=== PATIENT | female | born 1960 | race Caucasian/White ===

== ENCOUNTER 2021-08-17 13:48 | Outpatient (CLI) | payer MEDICARE, OTHER, SELFPAY ==
[2021-08-17 17:14] LABS: Chloride* 106 mmol/L (96-114); Potassium* 3.8 mmol/L (3.6-5.1); Sodium* 138 mmol/L (135-149)
[2021-08-17 17:16] LABS: Cholesterol* 130 mg/dL (90-199)
[2021-08-17 17:17] LABS: Blood Urea Nitrogen* 17 mg/dL (7-30); Carbon Dioxide* 25 mmol/L (20-32); Creatinine* 0.8 mg/dL (0.5-1.5); Estimated Glomerular Filt Rate 85.35; Glucose* 123 mg/dL (60-115); HDL Cholesterol* 50 mg/dL (>=50); LDL Cholesterol Calculated 48 mg/dL (<100); Triglycerides* 161 mg/dL (40-149)
== END 2021-08-17 13:49 | disposition home or self-care (01) ==
PROVIDERS: PCP Family Medicine; Visit Provider Family Medicine
DX: Z01.818 Encounter for other preprocedural examination (principal); E78.5 Hyperlipidemia, unspecified; D64.9 Anemia, unspecified; Z13.1 Encounter for screening for diabetes mellitus
CPT/HCPCS: 80048; 80061

== ENCOUNTER 2022-01-15 11:23 | Outpatient (CLI) | payer MEDICARE, OTHER, SELFPAY ==
[2022-01-15 13:55] LABS: Basophils Percent Auto 0.3 % (0.0-3.0); Eosinophils Percent Auto 3.4 % (0.0-7.0); Hematocrit 33.2 % (33.0-51.0); Hemoglobin* 10.4 gm/dL (12.0-16.0); Immature Granulocytes Pct Auto 0.3 %; Lymphocytes Percent Auto 26.6 % (20-44); Mean Corpuscular HGB Conc 31 gm/dL (32-36); Mean Corpuscular Hemoglobin 25 pg (26-34); Mean Corpuscular Volume 81 fL (80-100); Monocytes Percent Auto 11.2 % (0.0-11.0); Neutrophils Percent Auto 58.2 % (42.0-72.0); Platelet Count* 165 K/uL (140-440); RDW Coefficient of Variation % 16.6 % (11.5-15.5); Red Blood Count 4.11 m/uL (4.00-5.20); White Blood Count* 3.49 K/uL (4.50-11.00)
[2022-01-15 14:02] LABS: Slide Review Reflex No
[2022-01-15 14:18] LABS: Chloride* 105 mmol/L (96-114)
[2022-01-15 14:19] LABS: Potassium* 3.5 mmol/L (3.6-5.1); Sodium* 140 mmol/L (135-149)
[2022-01-15 14:21] LABS: Creatinine* 0.9 mg/dL (0.5-1.5); Estimated Glomerular Filt Rate 74 ml/min
[2022-01-15 14:22] LABS: Blood Urea Nitrogen* 19 mg/dL (7-30); Calcium* 8.4 mg/dL (8.4-10.6); Carbon Dioxide* 25 mmol/L (20-32); Glucose* 83 mg/dL (60-115)
[2022-01-15 14:40] LABS: SARS PCR* Negative SARS-CoV-2 (Negative)
== END 2022-01-15 11:24 | disposition home or self-care (01) ==
PROVIDERS: PCP Family Medicine; Visit Provider Nurse Practitioner Family
DX: Z01.818 Encounter for other preprocedural examination (principal); R00.2 Palpitations; Z20.822 Contact with and (suspected) exposure to COVID-19
CPT/HCPCS: 80048; 84443; 85025; 87635

== ENCOUNTER 2022-05-17 09:18 | Outpatient (REF) | payer MEDICARE, OTHER, SELFPAY ==
[2022-05-17 10:23] LABS: Hemoglobin A1C* 6.37 % (0-5.6)
== END 2022-05-17 09:19 | disposition home or self-care (01) ==
LOC: NPINS 09:18
PROVIDERS: PCP Family Medicine; Visit Provider Orthopaedic Surgery
DX: E11.69 Type 2 diabetes mellitus with other specified complication (principal); M79.671 Pain in right foot
CPT/HCPCS: 83036

== ENCOUNTER 2022-07-31 13:08 | Outpatient (CLI) | payer MEDICARE, OTHER, SELFPAY ==
--- NOTE | 2022-07-31 13:00 | CRLHL7_ITS ---
For Patients: As a result of the Century Cures Act, medical imaging exams and procedure reports are released immediately into your electronic medical record. You may view this report before your referring provider. If you have questions, please contact your health care provider. BILATERAL SCREENING MAMMOGRAM WITH COMPUTER-AIDED DETECTION AND TOMOSYNTHESIS 07/31/2022 INDICATION: 61-year-old asymptomatic female. Screening evaluation. No personal or family history of breast cancer. TECHNIQUE: CC and MLO views were obtained. This digital study was evaluated with the assistance of computer-aided detection. Digital breast tomosynthesis utilized in interpretation. COMPARISON: January 12, 2021. November 26, 2019. BREAST DENSITY: The breast tissue is heterogeneously dense, which may obscure small masses. FINDINGS: Within the central upper RIGHT breast approximately 12 o???clock position is a small nodular density measuring less than 1 cm. Spot compression views in both the CC and true ML projection recommended as a first step. Ultrasound may be required depending on the results of these additional images. The LEFT breast is negative and unchanged. No suspicious microcalcifications or regions of architecture distortion. IMPRESSION: Nodule central upper RIGHT breast 12 o???clock position approximately 5-6 cm from the nipple for which additional imaging and possibly ultrasound recommended. [facility] will contact the patient. BI-RADS Category 0: Incomplete - Need Additional Imaging evaluation and/or Prior Mammograms for Comparison Dictated by: Kory Gan MD @08/01/2022 8:48:45 AM GISELA/jenifre DW/Dictated by: Kory Gan MD @ 08/01/2022 8:48:00 AM (Electronically Signed)
== END 2022-07-31 13:09 | disposition home or self-care (01) ==
PROVIDERS: PCP Family Medicine; Visit Provider Family Medicine
DX: Z12.31 Encounter for screening mammogram for malignant neoplasm of breast (principal); R92.2 Inconclusive mammogram; N63.10 Unspecified lump in the right breast, unspecified quadrant
CPT/HCPCS: 77063; 77067

== ENCOUNTER 2022-08-07 08:16 | Outpatient (CLI) | payer MEDICARE, OTHER, SELFPAY ==
--- NOTE | 2022-08-07 08:45 | CRLHL7_ITS ---
For Patients: As a result of the Cures Act, medical imaging exams and procedure reports are released immediately into your electronic medical record. You may view this report before your referring provider. If you have questions, please contact your health care provider. DIAGNOSTIC RIGHT BREAST MAMMOGRAM WITH COMPUTER-AIDED DETECTION AND TOMOSYNTHESIS 08/07/2022 CLINICAL HISTORY: RIGHT breast mass/asymmetry. COMPARISON: 01/12/2021, 07/31/2022. TECHNIQUE: Digital RIGHT mammogram in 3 projections. Real-time ultrasound imaging of RIGHT breast with imaging documentation. BREAST COMPOSITION: Heterogeneously dense. FINDINGS: 3D spot compression true lateral and CC RIGHT breast mammogram images along with 3D open true lateral RIGHT breast mammogram images. Decreased conspicuity of previously noted asymmetric density in the retroareolar plane, slightly superiorly. No suspicious masses on today`s exam. No architectural distortion. No suspicious calcifications. Targeted ultrasound in the retroareolar plane extending to 12 o`clock 6 cm from the nipple performed. Normal dense tissue is present. No fibrocystic change or mass. IMPRESSION: Normal additional mammogram images RIGHT breast and normal targeted RIGHT breast ultrasound. No evidence of malignancy. RECOMMENDATIONS: Annual bilateral screening mammography. BI-RADS Category 2: Benign Results and recommendations discussed with the patient. Dictated by Ronald Porter MD @ 08/07/2022 9:10:35 AM GISELA/jenifer DW/Dictated by: Ronald Porter MD @ 08/07/2022 9:10:00 AM (Electronically Signed)
== END 2022-08-07 08:17 | disposition home or self-care (01) ==
LOC: MAMMO 08:16
PROVIDERS: PCP Family Medicine; Visit Provider Family Medicine
DX: N63.10 Unspecified lump in the right breast, unspecified quadrant (principal); R92.8 Other abnormal and inconclusive findings on diagnostic imaging of breast
CPT/HCPCS: 76642; 77065; G0279

== ENCOUNTER 2022-09-23 16:06 | Emergency (ER) | payer MEDICARE, OTHER, SELFPAY ==
[2022-09-23 16:30] VITALS: BP 96/61; PULSE 79; RESP 16; TEMP 36.2; O2SAT 97; BMI 23.9
== END 2022-09-23 17:27 | disposition left against medical advice (07) ==
PROVIDERS: Emergency Provider Emergency Medicine Emergency Medical Services; PCP Family Medicine
DX: Z53.21 Procedure and treatment not carried out due to patient leaving prior to being seen by health care provider (principal)

== ENCOUNTER 2022-10-05 16:26 | Outpatient (CLI) | payer MEDICARE, OTHER, SELFPAY ==
--- OUTSIDE RECORDS SUMMARY | 2022-10-07 02:08 | XMS_ITS | Continuity of Care Document ---
Author Name Unknown Organization [facility] Address [address] [place] [id number] Care Team Providers Care Enterprise Applications Manager Name Role Phone [facility] Unavailable Unav ailable Procedures Procedure Date MAJOR JOINT OR BURSA INJ WITH ULTRASOUND MAJOR JOINT OR BURSA INJ WITH ULTRASOUND Advance Directives Directive Yes / No Effective Date File Name No Information Encounters Encounter Description Practice Location Reason(s) For Visit Diagnoses Date Provider Providers Copied on Encounter [facility], [address] [place] [address], [id number], [facility] No Information [facility]. [address] [place], [place], [id number], . tel:[phone] Referring Provider: Divina Deras, [address] [place], [address]. tel:[phone] Family History Family Member Type Diagnosis Age At Onset No Information Payers Payer name Insurance type Covered democrat ID Authoriza tion(s) [employer] To 16 [id number] Social History Type Description Quantity Date Captured Comments Sex Female Smoking Status No Information Chief Complaint And Reason For Visit No Information Reason For Referral Reason For Referral No Information History Of Present Illness Encounter Date Complaint History Of Prese nt Illness No Information Functional Status Date Functional Assessmen t No Information Instructions Date Instruction Additional Infor mation No Information Assessments Type Assessment Date No Information Patient Care Teams Name Effective Dates (start - stop) Status Members No Information
--- OUTSIDE RECORDS SUMMARY | 2022-10-07 02:08 | XMS_ITS | Continuity of Care Document ---
Author Name Unknown Organization [facility] Address [address] [place] [address] Care Team Providers Care Television Antenna Installer Name Role Phone Beth Benoit CRNA Unavailable Unavail able Procedures Procedure Date ANESTH, NERVE BLOCK/INJ Advance Directives Directive Yes / No Effective Date File Name No Information Encounters Encounter Description Practice Location Reason(s) For Visit Diagnoses Date Provider Providers Copied on Encounter [facility], [address] [place], [place], [id number], [facility] No Information [facility]. [address] [place], [place], [id number], . tel:[phone] Referring Provider: Divina Deras, [address] [place] [place], [address] . tel:[phone] Family History Family Member Type Diagnosis Age At Onset No Information Payers Payer name Insurance type Covered green party ID Authoriza tiflaco(s) [employer] To 16 [id number] Social History Type Description Quantity Date Captured [...]
--- OUTSIDE RECORDS SUMMARY | 2022-10-07 02:10 | XMS_ITS | Continuity of Care Document ---
Author Name Unknown Organization [facility] tommie Address [address] [facility] [place] [id number] Phone Care Team Providers Care Rn Field Name Role Phone Kiara Álvarez CNP Unavailable Unavail able Allergies, Adverse Reactions, Alerts Substance Reaction Status Criticality methocarbamol Nausea/vomiting Active No Informat ion CYCLOBENZAPRINE HCL Active No Infor mation diphenhydramine Active No Informati on PROCHLORPERAZINE MALEATE Active No Information PROCHLORPERAZINE EDISYLATE Active N o Information Medications Medication Instructions Dosage Effective Dates (start - stop) Status Comments OxyContin 20 mg tablet,crush resistant,extend ed release take 1 tablet by oral route every 8 hours for chronic pain - Active may fill today, to start 10/07/22 oxycodone 10 mg tablet take 1 tablet by ORAL route every 4 - 6 hours as needed for chronic pain, max 3/day, alternate with 15mg tablets - Active may fill today, to start 10/07/22 oxycodone 15 mg tablet take 1 tablet by oral route every 4-6 hours as needed for chronic pain, max 2/day - Active may fill today, to start 10/07 Linzess 72 mcg capsule take 1 capsule by oral route every day on an empty stomach at least 30 minutes before 1st meal of the day - Active Narcan 4 mg/actuation nasal spray spray 0.1 milliliter by intranasal route in 1 nostril may repeat dose every 2-3 minutes as needed alternating nostrils with each dose 4 MG - Active Lidocaine External Patch 5 % apply 1 - 3 patches to low back every day for up to 12 hours per 24 hours. - Active Cymbalta 30 mg capsule,delayed release take 3 capsule by oral route every day 90 MG - Active simvastatin 20 mg tablet take 1 tablet by oral route every day in the evening 20 MG - Active Ativan 1 mg tablet take 1 tablet by oral route every day as needed, up to 3/day - Active Topamax 100 mg tablet take 2 tablet by oral route every day 200 MG - Active Wellbutrin XL 300 mg 24 hr tablet, extended release take 1 tablet by oral route every day 300 MG - Active Lexapro 10 mg tablet take 1 tablet by oral route every day 10 MG - Active Lamictal 200 mg tablet take 1 tablet by oral route 2 times every day 200 MG - Active trazodone 100 mg tablet take 1 tablet by oral route every day at bedtime - Active PRAZOSIN HCL (unknown strength) take 1 capsule by oral route 3 times every day Not Available - Active metformin 1,000 mg tablet take 1 tablet by oral route 2 times everyday - Active Prilosec 10 mg capsule,delayed release take 1 capsule by oral route every morning before a meal 10 MG - Active dicyclomine 10 mg capsule take 1 capsule by oral route 2 times every day 10 MG - Active Mirapex 1 mg tablet take 1 tablet by oral route every day 1 MG - Active oxycodone 10 mg tablet take 1 tablet by ORAL route every 4 - 6 hours as needed for chronic pain, max 3/day, alternate with 15mg tablets - No Longer Active may fill today, to start 09/07/22 OxyContin 20 mg tablet,crush resistant,extend ed release take 1 tablet by oral route every 8 hours for chronic pain - No Longer Active may fill today, to start 09/07/22 oxycodone 15 mg tablet take 1 tablet by oral route every 4-6 hours as needed for chronic pain, max 2/day - No Longer Active may fill today, to start 09/07 Procedures Procedure Date OFFICE VISIT, EST TELEMEDICINE OFFICE VISIT, EST TELEMEDICINE Drug Urine Toxology With Chromatography Drug test def 8-14 classes OFFICE/OUTPATIENT VISIT, EST BILATERAL MAJOR JOINT/BURSA DRAIN/INJ WI TH ULTRASO OFFICE VISIT, EST TELEMEDICINE OFFICE VISIT, EST TELEMEDICINE Foll-up eval q3mo opiod tx Foll-up eval q3mo opiod tx OFFICE/OUTPATIENT VISIT, EST ROUTINE BLOOD DRAW Foll-up eval q3mo opiod tx OFFICE VISIT, EST TELEMEDICINE Foll-up eval q3mo opiod tx OFFICE VISIT, EST TELEMEDICINE Foll-up eval q3mo opiod tx OFFICE/OUTPATIENT VISIT, EST Drug Urine Toxology With Chromatography Drug test def 8-14 classes Foll-up eval q3mo opiod tx OFFICE VISIT, EST TELEMEDICINE Foll-up eval q3mo opiod tx OFFICE VISIT, EST TELEMEDICINE Foll-up eval q3mo opiod tx OFFICE/OUTPATIENT VISIT, EST Drug Urine Toxology With Chromatography Foll-up eval q3mo opiod tx OFFICE VISIT, EST TELEMEDICINE Foll-up eval q3mo opiod tx OFFICE VISIT, EST TELEMEDICINE OFFICE VISIT, EST TELEMEDICINE Drug Urine Toxology With Chromatography Drug test def 8-14 classes Foll-up eval q3mo opiod tx OFFICE/OUTPATIENT VISIT, EST Foll-up eval q3mo opiod tx OFFICE VISIT, EST TELEMEDICINE OFFICE VISIT, EST TELEMEDICINE Foll-up eval q3mo opiod tx Botulinum toxin a per unit Destroy Nerve Face For Chronic Migraine Botulinum toxin a per unit Foll-up eval q3mo opiod tx OFFICE VISIT, EST TELEMEDICINE Drug Urine Toxology With Chromatography Drug test def 1-7 classes PT-FOCUSED HLTH RISK ASSMT Foll-up eval q3mo opiod tx OFFICE/OUTPATIENT VISIT, EST Foll-up eval q3mo opiod tx OFFICE VISIT, EST TELEMEDICINE Foll-up eval q3mo opiod tx OFFICE VISIT, EST TELEMEDICINE Foll-up eval q3mo opiod tx OFFICE VISIT, EST TELEMEDICINE Foll-up eval q3mo opiod tx OFFICE VISIT, EST TELEMEDICINE Foll-up eval q3mo opiod tx OFFICE/OUTPATIENT VISIT, EST ROUTINE BLOOD DRAW Drug Urine Toxology With Chromatography Foll-up eval q3mo opiod tx OFFICE VISIT, EST TELEMEDICINE Foll-up eval q3mo opiod tx OFFICE VISIT, EST TELEMEDICINE Drug Urine Toxology With Chromatography Foll-up eval q3mo opiod tx OFFICE/OUTPATIENT VISIT, EST Foll-up eval q3mo opiod tx OFFICE VISIT, EST TELEMEDICINE Foll-up eval q3mo opiod tx OFFICE VISIT, EST TELEMEDICINE Foll-up eval q3mo opiod tx OFFICE VISIT, EST TELEMEDICINE Foll-up eval q3mo opiod tx OFFICE VISIT, EST TELEMEDICINE 21 Foll-up eval q3mo opiod tx OFFICE VISIT, EST TELEMEDICINE 21 Foll-up eval q3mo opiod tx OFFICE VISIT, EST TELEMEDICINE 20 Foll-up eval q3mo opiod tx OFFICE VISIT, EST TELEMEDICINE Foll-up eval q3mo opiod tx OFFICE VISIT, EST TELEMEDICINE Foll-up eval q3mo opiod tx OFFICE VISIT, EST TELEMEDICINE Foll-up eval q3mo opiod tx OFFICE/OUTPATIENT VISIT, EST Foll-up eval q3mo opiod tx OFFICE VISIT, EST TELEMEDICINE 20 Foll-up eval q3mo opiod tx OFFICE VISIT, EST TELEMEDICINE Foll-up eval q3mo opiod tx OFFICE VISIT, EST TELEMEDICINE Foll-up eval q3mo opiod tx OFFICE VISIT, EST TELEMEDICINE Foll-up eval q3mo opiod tx OFFICE VISIT, EST TELEMEDICINE 20 Foll-up eval q3mo opiod tx OFFICE/OUTPATIENT VISIT, EST Drug test def 22+ classes Drug Urine Toxology With Chromatography OFFICE/OUTPATIENT VISIT, EST Foll-up eval q3mo opiod tx Foll-up eval q3mo opiod tx OFFICE/OUTPATIENT VISIT, EST Foll-up eval q3mo opiod tx OFFICE/OUTPATIENT VISIT, EST OFFICE/OUTPATIENT VISIT, EST Drug test def 22+ classes Drug Urine Toxology With Chromatography OFFICE/OUTPATIENT VISIT, EST OFFICE/OUTPATIENT VISIT, EST OFFICE/OUTPATIENT VISIT, EST OFFICE/OUTPATIENT VISIT, EST Drug test def 22+ classes Drug Urine Toxology With Chromatography OFFICE/OUTPATIENT VISIT, EST OFFICE/OUTPATIENT VISIT, EST OFFICE/OUTPATIENT VISIT, EST OFFICE/OUTPATIENT VISIT, EST OFFICE/OUTPATIENT VISIT, EST OFFICE/OUTPATIENT VISIT, EST Drug test def 22+ classes Drug Urine Toxology With Chromatography OFFICE/OUTPATIENT VISIT, EST OFFICE/OUTPATIENT VISIT, EST OFFICE/OUTPATIENT VISIT, EST OFFICE/OUTPATIENT VISIT, EST OFFICE/OUTPATIENT VISIT, EST OFFICE/OUTPATIENT VISIT, EST OFFICE/OUTPATIENT VISIT, EST Drug Urine Toxology OFFICE/OUTPATIENT VISIT, EST OFFICE/OUTPATIENT VISIT, EST OFFICE/OUTPATIENT VISIT, EST OFFICE/OUTPATIENT VISIT, EST OFFICE/OUTPATIENT VISIT, EST OFFICE/OUTPATIENT VISIT, EST OFFICE/OUTPATIENT VISIT, EST OFFICE/OUTPATIENT VISIT, EST OFFICE/OUTPATIENT VISIT, EST OFFICE/OUTPATIENT VISIT, EST OFFICE/OUTPATIENT VISIT, EST OFFICE/OUTPATIENT VISIT, EST OFFICE/OUTPATIENT VISIT, EST OFFICE/OUTPATIENT VISIT, EST OFFICE/OUTPATIENT VISIT, EST OFFICE/OUTPATIENT VISIT, EST OFFICE/OUTPATIENT VISIT, EST OFFICE/OUTPATIENT VISIT, EST OFFICE/OUTPATIENT VISIT, EST OFFICE/OUTPATIENT VISIT, EST OFFICE/OUTPATIENT VISIT, EST OFFICE/OUTPATIENT VISIT, EST OFFICE/OUTPATIENT VISIT, EST OFFICE/OUTPATIENT VISIT, EST OFFICE/OUTPATIENT VISIT, EST OFFICE/OUTPATIENT VISIT, EST Ketorolac tromethamine inj OFFICE/OUTPATIENT VISIT, EST OFFICE/OUTPATIENT VISIT, EST OFFICE/OUTPATIENT VISIT, EST OFFICE/OUTPATIENT VISIT, EST OFFICE/OUTPATIENT VISIT, EST OFFICE/OUTPATIENT VISIT, NEW Advance Directives Directive Yes / No Effective Date File Name No Information Encounters Encounter Description Practice Location Reason(s) For Visit Diagnoses Date Provider Providers Copied on Encounter OFFICE VISIT, [facility] [place] TELEMEDICINE [facility], [address] [place] [address], [id number] , tel:[phone] [facility] [place] Back Pain (chief complaint) Postlaminectom y syndrome, not elsewhere classifiedOthe r intervertebral disc degeneration, lumbar regionPain in right kneePain in left kneeDrug induced constipationLo ng term (current) use of opiate analgesic 3 Jonah Craig. [address] [place] [address], [id number], [place]. tel:[phone] Consulting Provider: Lucas Talamantes, [facility] [address], [place], [address]. tel:[phone] OFFICE VISIT, [facility], [address] [place] [address], [id number] , [place] tel:[phone] [facility] [place] Back Pain (chief complaint) Postlaminectom y syndrome, not elsewhere classifiedOthe r intervertebral disc degeneration, lumbar regionSacroili itis, not elsewhere classifiedPain in right kneePain in left kneeOther muscle spasmChronic migraine without aura, intractable, without status migrainosusMaj or depressive disorder, single episode, unspecifiedDru g induced constipationLo ng term (current) use of opiate analgesic 3 Jonah Pastorberoberto carlos Craig. [address], [place], [id number], [place]. tel:[phone] Consulting Provider: Lucas Talamantes, [facility] [address], [address], [place], [address]. tel:[phone] ring Provider: Emir Espinal, [address] [place] [address], [id number]. tel:[phone] [facility], [address] [place] [address], [id number] , [place] [phone] [facility] [place] No Information 3 Jonah Craig. [address] [place] [address], [id number], [place]. tel:[phone] Referring Provider: Emir Espinal, [address] [place] [address], [id number]. tel:[phone] OFFICE/OUTPAT IENT VISIT, EST [facility], [address] [place] [address], [id number] , [place] [phone] [facility] Back Pain (chief complaint) Major depressive disorder, single episode, unspecifiedChr onic migraine without aura, intractable, without status migrainosusDru g induced constipationPa in in right kneePain in left kneeSacroiliit is, not elsewhere classifiedOthe r intervertebral disc degeneration, lumbar regionOther muscle spasmPostlamin ectomy syndrome, not elsewhere classifiedLong term (current) use of opiate analgesicEncou nter for therapeutic drug level monitoring 3 Jonah Craig. [address] [place] [address], [id number], [place]. tel:[phone] Consulting Provider: Lucas Talamantes, [facility] [address], [address], [place], [address]. tel:[phone] ring Provider: Emir Espinal, [address] [place] [address], [id number]. tel:[phone] [facility], [address] [place] [address], [id number] , [place] tel:[phone] [facility] Pain in right kneePain in left knee 3 Braeden Murcia. [address] [place] [address], [id number], [place]. tel:[phone] Referring Provider: Emir Espinal, [address] [place] [address], [id number]. tel:[phone] OFFICE VISIT, EST TELEMEDICINE [facility], [address], [place], [id number] , [place] tel:[phone] [facility] [place] Back pain (chief complaint) Major depressive disorder, single episode, unspecifiedChr onic migraine without aura, intractable, without status migrainosusSac roiliitis, not elsewhere classifiedOthe r intervertebral disc degeneration, lumbar regionOther muscle spasmPostlamin ectomy syndrome, not elsewhere classifiedLong term (current) use of opiate analgesicPain in right kneePain in left kneeDrug induced constipation 3 Van Overbeke Kiara. [address] [place] [address], [id number], [place]. tel:[phone] Consulting Provider: Lucas Talamantes, [facility] [address], [address], [place], [address]. tel:[phone] ring Provider: Emir Espinal, [address] [place] [address], [id number]. tel:[phone] OFFICE VISIT, EST TELEMEDICINE [facility], [address] [place] [address], [id number] , [place] tel:[phone] [facility] Back Pain (chief complaint) Major depressive disorder, single episode, unspecifiedChr onic migraine without aura, intractable, without status migrainosusSac roiliitis, not elsewhere classifiedOthe r intervertebral disc degeneration, lumbar regionOther muscle spasmPostlamin ectomy syndrome, not elsewhere classifiedLong term (current) use of opiate analgesic May- 3 Van Overbeke Kiara. [address] [place] [address], [id number], [place]. tel:[phone] Consulting Provider: Lucas Talamantes, [facility] [address], [address], [place], [address]. tel:[phone] [facility], [address] [place] [address], [id number] , [place] tel:[phone] [facility] [place] No Information Apr-3 3 Van Overbeke Kiara. [address] [place] [address], [id number], [place]. tel:[phone] OFFICE/OUTPAT IENT VISIT, EST [facility], [address] [place] [address], [id number] , [place] tel:[phone] [facility] [place] back pain (chief complaint) Major depressive disorder, single episode, unspecifiedChr onic migraine without aura, intractable, without status migrainosusSac roiliitis, not elsewhere classifiedOthe r intervertebral disc degeneration, lumbar regionOther muscle spasmPostlamin ectomy syndrome, not elsewhere classifiedLong term (current) use of opiate analgesicEncou nter for therapeutic drug level monitoring 3 Jonah Craig. [address] [place] [address], [id number], [place]. tel:[phone] Consulting Provider: Lucas Talamantes, [facility] [address], [place] [address], [place], [address]. tel:[phone] ring Provider: Emir Espinal, [address] [place] [address], [id number]. tel:[phone] [facility], [address] [place] [address], [id number] , [place] tel:[phone] [facility] [place] No Information 3 Jonah Craig. [address] [place] [address], [id number], [place]. tel:[phone] OFFICE VISIT, EST TELEMEDICINE [facility], [address] [place] [address], [id number] , [place] tel:[phone] [facility] [place] Back Pain (chief complaint) Major depressive disorder, single episode, unspecifiedChr onic migraine without aura, intractable, without status migrainosusSac roiliitis, not elsewhere classifiedOthe r intervertebral disc degeneration, lumbar regionPostlami nectomy syndrome, not elsewhere classifiedLong term (current) use of opiate analgesicOther muscle spasm Fe 3 Jonah Craig. [address] [place] [address], [id number], [place]. tel:[phone] Consulting Provider: Lucas Talamantes, [facility] [address], [address], [place], [address]. [phone] OFFICE VISIT, [facility] [place] [facility]LE[facility], [address] [place] [address], [id number] , [place] [phone] [facility] [place] Back Pain (chief complaint) Other intervertebral disc degeneration, lumbar regionSacroili itis, not elsewhere classifiedChro tommie migraine without aura, intractable, without status migrainosusMaj or depressive disorder, single episode, unspecifiedOth er muscle spasmPostlamin ectomy syndrome, not elsewhere classifiedLong term (current) use of opiate analgesic 3 Jonah Craig. [address] [place] [address], [id number], [place]. tel:[phone] Consulting Provider: Lucas Talamantes, [facility] [address], [address], [place], [address]. [phone] OFFICE/OUTPAT IENT VISIT, [facility], [address] [place] [address], [id number] , [place] [phone] [facility] [place] Back pain (chief complaint) Major depressive disorder, single episode, unspecifiedChr onic migraine without aura, intractable, without status migrainosusSac roiliitis, not elsewhere classifiedOthe r intervertebral disc degeneration, lumbar regionOther muscle spasmPostlamin ectomy syndrome, not elsewhere classifiedLong term (current) use of opiate analgesicEncou nter for therapeutic drug level monitoring 2 Jonah Craig. [address] [place] [address], [id number], [place]. tel:[phone] Consulting Provider: Lucas Talmaantes, [facility] [address], [address], [place], [address]. tel:[phone] ring Provider: Emir Espinal, [address] [place] [address], [id number]. tel:[phone] [facility], [address] [place] [address], [id number] , [place] tel:[phone] [facility] [place] No Information 2 Jonah Pastorberoberto carlos Craig. [address] [place] [address], [id number], [place]. tel:[phone] Referring Provider: Emir Espinal, [address] [place] [address], [id number]. tel:[phone] OFFICE VISIT, EST TELEMEDICINE [facility], [address] [place] [address], [id number] , [place] tel:[phone] [facility] [place] Back pain (chief complaint) Major depressive disorder, single episode, unspecifiedChr onic migraine without aura, intractable, without status migrainosusSac roiliitis, not elsewhere classifiedOthe r intervertebral disc degeneration, lumbar regionOther muscle spasmPostlamin ectomy syndrome, not elsewhere classifiedLong term (current) use of opiate analgesic 2 Jonah Pastorberoberto carlos Kiara. [address] [place] [address], [id number], [place]. tel:[phone] Consulting Provider: Lucas Talamantes, [facility] [address], [address], [place], [address]. tel:[phone] ring Provider: Emir Espinal, [address] [place] [address], [id number]. tel:[phone] OFFICE VISIT, EST TELEMEDICINE [facility], [address] [place] [address], [id number] , [place] tel:[phone] [facility] [place] Back pain (chief complaint) Major depressive disorder, single episode, unspecifiedChr onic migraine without aura, intractable, without status migrainosusSac roiliitis, not elsewhere classifiedOthe r intervertebral disc degeneration, lumbar regionPostlami nectomy syndrome, not elsewhere classifiedLong term (current) use of opiate analgesicOther muscle spasm 2 Jonah Overbeke Kiara. [address] [place] [address], [id number], [place]. tel:[phone] Consulting Provider: Lucas Talamantes, [facility] [address], [address], [place], [address]. tel:[phone] OFFICE/OUTPAT IENT VISIT, EST [facility], [address] [place] [address], [id number] , [place] tel:[phone] [facility] Back pain (chief complaint) Major depressive disorder, single episode, unspecifiedChr onic migraine without aura, intractable, without status migrainosusSac roiliitis, not elsewhere classifiedOthe r intervertebral disc degeneration, lumbar regionPostlami nectomy syndrome, not elsewhere classifiedLong term (current) use of opiate analgesicEncou nter for therapeutic drug level monitoring Sep-2 2 Van Overbeke Kiara. [address] [place] [address], [id number], [place]. tel:[phone] Consulting Provider: Lucas Talamantes, [facility] [address], [address], [place], [address]. tel:[phone] ring Provider: Emir Espinal, [address] [place] [address], [id number]. tel:[phone] [facility], [address] [place] [address], [id number] , [place] tel:[phone] [facility] No Information Sep-2 2 Van Overbeke Kiara. [address] [place] [address], [id number], [place]. tel:[phone] OFFICE VISIT, EST TELEMEDICINE [facility], [address] [place] [address], [id number] , [place] tel:[phone] [facility] Back Pain (chief complaint) Major depressive disorder, single episode, unspecifiedChr onic migraine without aura, intractable, without status migrainosusSac roiliitis, not elsewhere classifiedOthe r intervertebral disc degeneration, lumbar regionPostlami nectomy syndrome, not elsewhere classifiedLong term (current) use of opiate analgesic Sep-0 2 Keri Campos. [address], [place], [place], [id number], [place]. tel:[phone] Consulting Provider: Lucas Talamantes, [facility] [address], [address], [place], [address]. tel:[phone] ring Provider: Emir Espinal, [address] [place] [address], [id number]. tel:[phone] OFFICE VISIT, EST TELEMEDICINE [facility], [address] [place] [address], [id number] , [place] tel:[phone] [facility] [place] Back pain (chief complaint) Chronic migraine without aura, intractable, without status migrainosusSac roiliitis, not elsewhere classifiedOthe r intervertebral disc degeneration, lumbar regionPostlami nectomy syndrome, not elsewhere classifiedLong term (current) use of opiate analgesicMajor depressive disorder, single episode, unspecified 2 Van Overbeke Kiara. [address] [place] [address], [id number], [place]. tel:[phone] Consulting Provider: Lucas Talamantes, [facility] [address], [address] [facility], [place], [address]. tel:[phone] ring Provider: Emir Espinal, [address] [place] [address], [id number]. tel:[phone] OFFICE VISIT, EST TELEMEDICINE [facility], [address] [place] [address], [id number] , [place] tel:[phone] [facility] back pain (chief complaint) Chronic migraine without aura, intractable, without status migrainosusSac roiliitis, not elsewhere classifiedOthe r intervertebral disc degeneration, lumbar regionPostlami nectomy syndrome, not elsewhere classifiedLong term (current) use of opiate analgesic 2 Van Overbeke Kiara. [address] [place] [address], [id number], [place]. tel:[phone] Consulting Provider: Lucas Talamantes, [facility] [address], [address] [facility], [place], [address]. tel:[phone] [facility], [address] [place] [address], [id number] , [place] tel:[phone] [facility] [place] No Information 2 Van Overbeke Kiara. [address] [place] [address], [id number], [place]. tel:[phone] Referring Provider: Emir Espinal, [address] [place] [address], [id number]. tel:[phone] OFFICE/OUTPAT IENT VISIT, [facility], [address] [place] [address], [id number] , [place] tel:[phone] [facility] Back Pain (chief complaint) Chronic migraine without aura, intractable, without status migrainosusSac roiliitis, not elsewhere classifiedOthe r intervertebral disc degeneration, lumbar regionPostlami nectomy syndrome, not elsewhere classifiedLong term (current) use of opiate analgesicEncou nter for therapeutic drug level monitoring 2 Jonah Overberoberto carlos Kiara. [address] [place] [address], [id number], [place]. tel:[phone] Consulting Provider: Lucas Talamantes [facility] [address], [address], [place], [address]. tel:[phone] ring Provider: Emir Espinal, [address] [place] [address], [address]. tel:[phone] OFFICE VISIT, [facility] [place] TELEMEDICINE [facility], [address] [place] [address], [id number] , [place] tel:[phone] [facility] [place] Back Pain (chief complaint) Chronic migraine without aura, intractable, without status migrainosusSac roiliitis, not elsewhere classifiedOthe r intervertebral disc degeneration, lumbar regionPostlami nectomy syndrome, not elsewhere classifiedLong term (current) use of opiate analgesic 2 Jonah Overbeke Kiara. [address] [place] [address], [id number], [place]. tel:[phone] Consulting Provider: Lucas Talamantes, [facility] [address], [address], [place], [address]. tel:[phone] OFFICE VISIT, EST TELEMEDICINE [facility], [address] [place] [address], [id number] , [place] tel:[phone] [facility] [place] Back Pain (chief complaint) Headache (chief complaint) Chronic migraine without aura, intractable, without status migrainosusSac roiliitis, not elsewhere classifiedOthe r intervertebral disc degeneration, lumbar regionPostlami nectomy syndrome, not elsewhere classifiedLong term (current) use of opiate analgesic Apr-2 2 Van Overbeke Kiara. [address] [place] [address], [id number], [place]. tel:[phone] Consulting Provider: Lucas Talamantes, [facility] [address], [address], [place], [address]. tel:[phone] [facility], [address] [place] [address], [id number] , [phone] [facility] [place] Chronic migraine without aura, intractable, without status migrainosus Apr-0 2 Ney Cara. [address] [place] [address], [id number], [place]. tel:[phone] Referring Provider: Emir Espinal, [address] [place] [address], [id number]. tel:[phone] OFFICE VISIT, EST TELEMEDICINE [facility], [address] [place] [address], [id number] , [place] tel:[phone] [facility] [place] Back Pain (chief complaint) Chronic migraine without aura, intractable, without status migrainosusOth er intervertebral disc degeneration, lumbar regionLong term (current) use of opiate analgesicPostl aminectomy syndrome, not elsewhere classifiedSacr oiliitis, not elsewhere classified Mar- 2 Jonah Pastorberoberto carlos Kiara. [address] [place] [address], [id number], [place]. tel:[phone] Consulting Provider: Lucas Talamantes, [facility] [address], [address], [place], [address]. tel:[phone] ring Provider: Emir Espinal, [address] [place] [address], [id number]. tel:[phone] [facility], [address] [place] [address], [id number] , [place] tel:[phone] [facility] [place] No Information 2 Jonah Craig. [address] [place] [address], [id number], [place]. tel:[phone] OFFICE/OUTPAT IENT VISIT, EST [facility], [address] [place] [address], [id number] , [place] tel:[phone] [facility] Back Pain (chief complaint) Other intervertebral disc degeneration, lumbar regionLong term (current) use of opiate analgesicPostl aminectomy syndrome, not elsewhere classifiedSacr oiliitis, not elsewhere classifiedEnco unter for therapeutic drug level monitoringEnco unter for screening for other disorderChroni c migraine without aura, intractable, without status migrainosus 2 Jonah Craig. [address] [place] [address], [id number], [place]. tel:[phone] Consulting Provider: Lucas Talamantes, [facility] [address], [address], [place], [address]. tel:[phone] ring Provider: Emir Espinal, [address] [place] [address], [id number]. tel:[phone] OFFICE VISIT, EST TELEMEDICINE [facility], [address] [place] [address], [id number] , [place] tel:[phone] [facility] Back Pain (chief complaint) Other intervertebral disc degeneration, lumbar regionLong term (current) use of opiate analgesicPostl aminectomy syndrome, not elsewhere classifiedSacr oiliitis, not elsewhere classified 2 Jonah Craig. [address] [place] [address], [id number], [place]. tel:[phone] Consulting Provider: Lucas Talamantes, [facility] [address], [address], [place], [address]. tel:[phone] OFFICE VISIT, EST TELEMEDICINE [facility], [address] [place] [address], [id number] , [place] [phone] [facility] [place] Back Pain (chief complaint) Other intervertebral disc degeneration, lumbar regionLong term (current) use of opiate analgesicPostl aminectomy syndrome, not elsewhere classifiedSacr oiliitis, not elsewhere classified 1 Jonah Craig. [address] [place] [address], [id number], [place]. tel:[phone] Consulting Provider: Lucas Talamantes, [facility] [address], [address], [place], [address]. tel:[phone] OFFICE VISIT, EST TELEMEDICINE [facility], [address] [place] [address], [id number] , [phone] [facility] Back Pain (chief complaint) Other intervertebral disc degeneration, lumbar regionLong term (current) use of opiate analgesicPostl aminectomy syndrome, not elsewhere classifiedSacr oiliitis, not elsewhere classified 1 Jonah Craig. [address] [place] [address], [id number], [place]. tel:[phone] Consulting Provider: Lucas Talamantes, [facility] [address], [address], [place], [address]. tel:[phone] ring Provider: Emir Espinal, [address] [place] [address], [address]. tel:[phone] OFFICE VISIT, EST TELEMEDICINE [facility], [address] [place] [address], [id number] , [place] [phone] [facility] [place] Back Pain (chief complaint) Other intervertebral disc degeneration, lumbar regionLong term (current) use of opiate analgesicPostl aminectomy syndrome, not elsewhere classifiedSacr oiliitis, not elsewhere classified 1 Jonah Craig. [address] [place] [address], [id number], [place]. tel:[phone] Consulting Provider: Lucas Talamantes, [facility] [address], [address], [place], [address]. tel:[phone] OFFICE/OUTPAT IENT VISIT, EST [facility], [address] [place] [address], [id number] , [place] tel:[phone] [facility] Back Pain (chief complaint) Other intervertebral disc degeneration, lumbar regionLong term (current) use of opiate analgesicPostl aminectomy syndrome, not elsewhere classifiedSacr oiliitis, not elsewhere classifiedEnco unter for therapeutic drug level monitoring Sep-2 1 Jonah Craig. [address] [place] [address], [id number], [place]. tel:[phone] Consulting Provider: Lucas Talamantes, [place] [address] [facility] [address], [place], [address]. tel:[phone] ring Provider: Emir Espinal, [address] [place] [address], [id number]. tel:[phone] [facility], [address] [place] [address], [id number] , [place] tel:[phone] [facility] Encounter for therapeutic drug level monitoringLong term (current) use of opiate analgesic Sep-2 1 Jonah Craig. [address] [place] [address], [id number], [place]. tel:[phone] Referring Provider: Emir Espinal, [address] [place] [address], [id number]. tel:[phone] OFFICE VISIT, EST TELEMEDICINE [facility], [address] [place] [address], [id number] , [place] tel:[phone] [facility] Back Pain (chief complaint) terminal system operator (current) use of opiate analgesicPostl aminectomy syndrome, not elsewhere classifiedOthe r intervertebral disc degeneration, lumbar region 1 Ney Quinones. [address] [place] [address], [id number], [place]. tel:[phone] Consulting Provider: Lucas Talamantes, [facility] [address], [place], [address]. tel:[phone] Provider: Emir Espinal, [address] [place] [address], [address]. tel:[phone] OFFICE VISIT, EST TELEMEDICINE [facility], [address] [place] [address], [id number] , [place] tel:[phone] [facility] [place] Back Pain (chief complaint) terminal system operator (current) use of opiate analgesicPostl aminectomy syndrome, not elsewhere classifiedSacr oiliitis, not elsewhere classifiedOthe r intervertebral disc degeneration, lumbosacral region 1 Jonah Craig. [address] [place] [address], [id number], [place]. tel:[phone] Consulting Provider: Lucas Talamantes, [facility] [address] [facility] 675 [facility] [address] [facility], [place], [address]. tel:[phone] ring Provider: Emir Espinal, [address] [place] [address], [id number]. tel:[phone] [facility], [address] [place] [address], [id number] , [place] tel:[phone] [facility] Encounter for therapeutic drug level monitoringLong term (current) use of opiate analgesic 1 Jonah Craig. [address] [place] [address], [id number], [place]. tel:[phone] Referring Provider: Emir Espinal, [address] [place] [address], [id number]. tel:[phone] OFFICE/OUTPAT IENT VISIT, EST [facility], [address] [place] [address], [id number] , [place] tel:[phone] [facility] Back Pain (chief complaint) long-term (current) use of opiate analgesicPostl aminectomy syndrome, not elsewhere classifiedSacr oiliitis, not elsewhere classifiedOthe r intervertebral disc degeneration, lumbosacral regionEncounte r for therapeutic drug level monitoring 1 Jonah Craig. [address] [place] [address], [id number], [place]. tel:[phone] Consulting Provider: Lucas Talamantes, [address] Merc[address] [facility], [place], [place], [facility]. tel:[phone] ring Provider: Emir Espinal, [address] [place] [address], [id number]. tel:[phone] OFFICE VISIT, EST TELEMEDICINE [facility], [address] [place] [address], [id number] , [place] tel:[phone] [facility] Back Pain (chief complaint) long-term (current) use of opiate analgesicPostl aminectomy syndrome, not elsewhere classifiedSacr oiliitis, not elsewhere classifiedOthe r intervertebral disc degeneration, lumbosacral region June- 1 Jonah Craig. [address] [place] [address], [id number], [place]. tel:[phone] Consulting Provider: Lucas Talamantes, [address] [place] [address], [place], [address]. tel:[phone] ring Provider: Emir Espinal, [address] [place] [address], [address]. tel:[phone] OFFICE VISIT, EST TELEMEDICINE [facility], [address] [place] [address], [id number] , [place] tel:[phone] [facility] Back Pain (chief complaint) Postlaminectom y syndrome, not elsewhere classifiedSacr oiliitis, not elsewhere classifiedOthe r intervertebral disc degeneration, lumbosacral regionLong term (current) use of opiate analgesic May- 1 Jonah Craig. [address] [place] [address], [id number], [place]. tel:[phone] Consulting Provider: Lucas Talamantes [address] [place] [address], [place], [address]. tel:[phone] Provider: Emir Espinal, [address] [place] [address], [id number]. tel:[phone] OFFICE VISIT, EST TELEMEDICINE [facility], [address] [place] [address], [id number] , [place] tel:[phone] [facility] Back Pain (chief complaint) Postlaminectom y syndrome, not elsewhere classifiedSacr oiliitis, not elsewhere classifiedOthe r intervertebral disc degeneration, lumbosacral regionLong term (current) use of opiate analgesic Apr- 1 Jonah Craig. [address] [place] [address], [id number], [place]. tel:[phone] Consulting Provider: Lucas Talamantes, [address], [address]. tel:[phone] ring Provider: Emir Espinal, [address] [place] [address], [id number]. tel:[phone] OFFICE VISIT, EST TELEMEDICINE [facility], [address] [place] [address], [id number] , [place] tel:[phone] [facility] Back Pain (chief complaint) Postlaminectom y syndrome, not elsewhere classifiedSacr oiliitis, not elsewhere classifiedOthe r intervertebral disc degeneration, lumbosacral regionLong term (current) use of opiate analgesic 1 Jonah Craig. [address] [place] [address], [id number], [place]. tel:[phone] Consulting Provider: Lucas Talamantes[address], [address]. tel:[phone] ring Provider: Emir Espinal, [address] [place] [address], [id number]. tel:[phone] OFFICE VISIT, EST TELEMEDICINE [facility], [address] [place] [address], [id number] , [place] tel:[phone] [facility] Back Pain (chief complaint) long-term (current) use of opiate analgesicPostl aminectomy syndrome, not elsewhere classifiedSacr oiliitis, not elsewhere classifiedOthe r intervertebral disc degeneration, lumbosacral region 1 Jonah Craig. [address] [place] [address], [id number], [place]. tel:[phone] Consulting Provider: Lucas Talamantes, [address], [address]. tel:[phone] ring Provider: Emir Espinal, [address] [place] [address], [address]. tel:[phone] OFFICE VISIT, EST TELEMEDICINE [facility], [address] [place] [address], [id number] , [phone] [facility] Back Pain (chief complaint) long-term (current) use of opiate analgesicPostl aminectomy syndrome, not elsewhere classifiedSacr oiliitis, not elsewhere classifiedOthe r intervertebral disc degeneration, lumbosacral region 0 Jonah Craig. [address] [place] [address], [id number], [place]. tel:[phone] Consulting Provider: Lucas Talamantes, [address], [address]. tel:[phone] ring Provider: Emir Espinal, [address] [place] [address], [address]. tel:[phone] OFFICE VISIT, EST TELEMEDICINE [facility], [address] [place] [address], [id number] , [place] tel:[phone] [facility] Back Pain (chief complaint) long-term (current) use of opiate analgesicPostl aminectomy syndrome, not elsewhere classifiedSacr oiliitis, not elsewhere classifiedOthe r intervertebral disc degeneration, lumbosacral region 0 Jonah Overlorna Craig. [address] [place] [address], [id number], [place]. tel:[phone] Referring Provider: mEir Espinal, [address] [place] [address], [address]. tel:[phone] OFFICE VISIT, [facility], [address] [place] [address], [id number] , [place] tel:[phone] [facility] Back Pain (chief complaint) long-term (current) use of opiate analgesicPostl aminectomy syndrome, not elsewhere classifiedSacr oiliitis, not elsewhere classifiedOthe r intervertebral disc degeneration, lumbosacral region 0 Jonah Craig. [address] [place] [address], [id number], [place]. tel:[phone] Referring Provider: Emir Espinal, [address] [place] [address], [address]. tel:[phone] OFFICE VISIT, [facility], [address] [place] [address], [id number] , [place] tel:[phone] [facility] [place] Back Pain (chief complaint) terminal system operator (current) use of opiate analgesicPostl aminectomy syndrome, not elsewhere classifiedSacr oiliitis, not elsewhere classifiedOthe r intervertebral disc degeneration, lumbosacral region Oct- 0 Jonah Craig. [address] [place] [address], [id number], [place]. tel:[phone] Referring Provider: Emir Espinal, [address] [place] [address], [address]. tel:[phone] OFFICE/OUTPAT IENT VISIT, [facility], [address] [place] [address], [id number] , [place] tel:[phone] [facility] [place] Back Pain (chief complaint) long-term (current) use of opiate analgesicPostl aminectomy syndrome, not elsewhere classifiedSacr oiliitis, not elsewhere classifiedOthe r intervertebral disc degeneration, lumbosacral region 0 Jonah Overberoberto carlos Craig. [address] [place] [address], [id number], . tel:[phone] Referring Provider: Emir Espinal, [address] [place] [address], [address]. tel:[phone] OFFICE VISIT, [facility], [address] [place] [address], [id number] , [place] tel:[phone] [facility] Back Pain (chief complaint) terminal system operator (current) use of opiate analgesicPostl aminectomy syndrome, not elsewhere classifiedSacr oiliitis, not elsewhere classifiedOthe r intervertebral disc degeneration, lumbosacral region 0 Jonah Pastorberoberto carlos Craig. [address] [place] [address], [id number], [place]. tel:[phone] Consulting Provider: Lucas AU, [facility] [address] [facility] [address] [place] [address], [place], [address]. tel:[phone] ring Provider: Emir Espinal, [address] [place] [address], [address]. tel:[phone] OFFICE VISIT, [facility], [address] [place] [address], [id number] , [place] tel:[phone] [facility] Back Pain (chief complaint) terminal system operator (current) use of opiate analgesicPostl aminectomy syndrome, not elsewhere classifiedSacr oiliitis, not elsewhere classifiedOthe r intervertebral disc degeneration, lumbosacral region 0 Jonah Overberoberto carlos Huertase. [address] [place] [address], [id number], [place]. tel:[phone] Referring Provider: Emir Espinal, [address] [place] [address], [address]. tel:[phone] OFFICE VISIT, [facility], [address] [place] [address], [id number] , [place] tel:[phone] [facility] Back Pain (chief complaint) long-term (current) use of opiate analgesicPostl aminectomy syndrome, not elsewhere classifiedSacr oiliitis, not elsewhere classifiedOthe r intervertebral disc degeneration, lumbosacral region May-2 0-202 0 Jonah Craig. [address] [place] [address], [id number], [place]. tel:[phone] Consulting Provider: Lucas AU, [address] [facility], [place], [address]. tel:[phone] ring Provider: Emir Espinal, [address] [place] [address], [address]. tel:[phone] OFFICE VISIT, EST TELEMEDICINE [facility], [address] [place] [address], [id number] , [place] tel:[phone] [facility] Back Pain (chief complaint) long-term (current) use of opiate analgesicPostl aminectomy syndrome, not elsewhere classifiedSacr oiliitis, not elsewhere classifiedOthe r intervertebral disc degeneration, lumbosacral region Apr-2 2-202 0 Jonah Craig. [address] [place] [address], [id number], [place]. tel:[phone] Consulting Provider: Lucas AU, [address] [facility], [place], [address]. tel:[phone] ring Provider: Emir Espinal, [address] [place] [address], [address]. tel:[phone] OFFICE VISIT, EST TELEMEDICINE [facility], [address] [place] [address], [id number] , [place] tel:[phone] [facility] Back Pain (chief complaint) terminal system operator (current) use of opiate analgesicPostl aminectomy syndrome, not elsewhere classifiedSacr oiliitis, not elsewhere classifiedOthe r intervertebral disc degeneration, lumbosacral region Mar-2 6-202 0 Jonah Craig. [address] [place] [address], [id number], [place]. tel:[phone] Consulting Provider: Lucas AU, [address], [place], [address]. tel:[phone] Provider: Emir Espinal, [address] [place] [address], [address]. tel:[phone] OFFICE/OUTPAT IENT VISIT, [facility], [address] [place] [address], [id number] , [place] tel:[phone] [facility] Back Pain (chief complaint) long-term (current) use of opiate analgesicEncou nter for therapeutic drug level monitoringPost laminectomy syndrome, not elsewhere classifiedSacr oiliitis, not elsewhere classifiedOthe r intervertebral disc degeneration, lumbosacral region 0 Jonah Overberoberto carlos Craig. [address] [place] [address], [id number], [place]. tel:[phone] Consulting Provider: Lucas AU, [address], [address]. tel:[phone] ring Provider: Emir Espinal, [address] [place] [address], [address]. tel:[phone] OFFICE/OUTPAT IENT VISIT, [facility], [address] [place] [address], [id number] , [place] tel:[phone] [facility] Back Pain (chief complaint) long-term (current) use of opiate analgesicPostl aminectomy syndrome, not elsewhere classifiedSacr oiliitis, not elsewhere classifiedOthe r intervertebral disc degeneration, lumbosacral region 0 Jonah Overberoberto carlos Craig. [address] [place] [address], [id number], [place]. tel:[phone] Consulting Provider: Lucas AU, [facility] [address], [address]. tel:[phone] ring Provider: Emir Espinal, [address] [place] [address], [address]. tel:[phone] OFFICE/OUTPAT IENT VISIT, EST [facility], [address] [place] [address], [id number] , [place] tel:[phone] [facility] Back Pain (chief complaint) long-term (current) use of opiate analgesicSacro iliitis, not elsewhere classifiedOthe r intervertebral disc degeneration, lumbosacral regionPostlami nectomy syndrome, not elsewhere classified 3 0201 9 Van Overbeke Kiara. [address] [place] [address], [id number], [place]. tel:[phone] Consulting Provider: Lucas AU, [address] Prof [address] [address], [place], [address]. tel:[phone] ring Provider: Emir Espinal, [address] [place] [address], [address]. tel:[phone] OFFICE/OUTPAT IENT VISIT, [facility], [address] [place] [address], [id number] , [place] [phone] [facility] Back Pain (chief complaint) long-term (current) use of opiate analgesicLow back painSacroiliit is, not elsewhere classifiedPost laminectomy syndrome, not elsewhere classifiedOthe r intervertebral disc degeneration, lumbosacral region Nov- 9 Jonah Overbeke Kiara. [address] [place] [address], [id number], [place]. tel:[phone] Consulting Provider: Lucas AU, [facility] [address] Marlon [facility], [place], [address]. tel:[phone] ring Provider: Emir Espinal, [address] [place] [address], [address]. tel:[phone] OFFICE/OUTPAT IENT VISIT, [facility], [address] [place] [address], [id number] , [place] [phone] [facility] [place] Back Pain (chief complaint) long-term (current) use of opiate analgesicLow back painSacroiliit is, not elsewhere classifiedOthe r intervertebral disc degeneration, lumbosacral regionPostlami nectomy syndrome, not elsewhere classified Jonah Craig. [address] [place] [address], [id number], [place]. tel:[phone] Consulting Provider: Lucas AU, [address] Carmel Mercado [address] [address], [place], [address]. tel:[phone] ring Provider: Emir Espinal, [address] [place] [address], [address]. tel:[phone] OFFICE/OUTPAT IENT VISIT, [facility], [address] [place] [address], [id number] , [place] tel:[phone] [facility] [place] Back Pain (chief complaint) Postlaminectom y syndrome, not elsewhere classifiedOthe r intervertebral disc degeneration, lumbosacral regionSacroili itis, not elsewhere classifiedLow back painLong term (current) use of opiate analgesicEncou nter for therapeutic drug level monitoring Jonah Craig. [address] [place] [address], [id number], [place]. tel:[phone] Consulting Provider: Lucas AU, [address] Carmel Mercado [address] [address], [place], [address]. tel:[phone] ring Provider: Emir Espinal, [address] [place] [address], [address]. tel:[phone] OFFICE/OUTPAT IENT VISIT, [facility], [address] [place] [address], [id number] , [place] tel:[phone] [facility] [place] Back Pain (chief complaint) Postlaminectom y syndrome, not elsewhere classifiedOthe r intervertebral disc degeneration, lumbosacral regionSacroili itis, not elsewhere classifiedLow back painLong term (current) use of opiate analgesic 9 Van Overbeke Kiara. [address] [place] [address], [id number], [place]. tel:[phone] Consulting Provider: Lucas AU, [address] [address], [place], [address]. tel:[phone] ring Provider: Emir Espinal, [address] [place] [address], [address]. tel:[phone] OFFICE/OUTPAT IENT VISIT, [facility], [address] [place] [address], [id number] , [place] tel:[phone] [facility] [place] Back Pain (chief complaint) Postlaminectom y syndrome, not elsewhere classifiedOthe r intervertebral disc degeneration, lumbosacral regionSacroili itis, not elsewhere classifiedLow back painLong term (current) use of opiate analgesic Van Overbeke Kiara. [address] [place] [address], [id number], [place]. tel:[phone] Consulting Provider: Lucas AU, [address] [address], [place], [address]. tel:[phone] ring Provider: Emir Espinal, [address] [place] [address], [address]. tel:[phone] OFFICE/OUTPAT IENT VISIT, [facility], [address] [place] [address], [id number] , [place] tel:[phone] [facility] [place] Back Pain (chief complaint) Postlaminectom y syndrome, not elsewhere classifiedOthe r intervertebral disc degeneration, lumbosacral regionSacroili itis, not elsewhere classifiedLow back painLong term (current) use of opiate analgesic Van Overbeke Kiara. [address] [place] [address], [id number], [place]. tel:[phone] Consulting Provider: Lucas AU, [address], [place], [address]. tel:[phone] ring Provider: Emir Espinal, [address] [place] [address], [address]. tel:[phone] OFFICE/OUTPAT IENT VISIT, [facility], [address] [place] [address], [id number] , tel:[phone] [facility] [place] Back Pain (chief complaint) Postlaminectom y syndrome, not elsewhere classifiedOthe r intervertebral disc degeneration, lumbosacral regionSacroili itis, not elsewhere classifiedLow back painLong term (current) use of opiate analgesicEncou nter for therapeutic drug level monitoring Jonah Craig. [address] [place] [address], [id number], [place]. tel:[phone] Consulting Provider: Lucas AU, [address] Marlon [address] [place] [address], [address]. tel:[phone] ring Provider: Emir Espinal, [address] [place] [address], [address]. tel:[phone] OFFICE/OUTPAT IENT VISIT, [facility], [address] [place] [address], [id number] , [place] tel:[phone] [facility] [place] Back Pain (chief complaint) Postlaminectom y syndrome, not elsewhere classifiedOthe r intervertebral disc degeneration, lumbosacral regionSacroili itis, not elsewhere classifiedLow back painLong term (current) use of opiate analgesic Feb- Jonah Pastorbeke Kiara. [address] [place] [address], [id number], [place]. tel:[phone] Consulting Provider: Lucas AU, [address], [place], [address]. tel:[phone] Provider: Emir Espinal, [address] [place] [address], [address]. [phone] OFFICE/OUTPAT IENT VISIT, [facility], [address] [place] [address], [id number] , [place] tel:[phone] [facility] [place] Back Pain (chief complaint) Sacroiliitis, not elsewhere classifiedPost laminectomy syndrome, not elsewhere classifiedOthe r intervertebral disc degeneration, lumbosacral regionLow back painLong term (current) use of opiate analgesic Dec-0 3-201 8 Jonah Craig. [address] [place] [address], [id number], [place]. tel:[phone] Consulting Provider: Lucas AU, [address], [address]. tel:[phone] Provider: Emir Espinal, [address] [place] [address], [address]. tel:[phone] OFFICE/OUTPAT IENT VISIT, [facility], [address] [place] [address], [id number] , [place] tel:[phone] [place] [address] [place] Back Pain (chief complaint) Sacroiliitis, not elsewhere classifiedPost laminectomy syndrome, not elsewhere classifiedOthe r intervertebral disc degeneration, lumbosacral regionLow back pain Nov-0 1 8 Jonah Craig. [address] [place] [address], [id number], [place]. tel:[phone] Consulting Provider: Lucas AU, [address], [address]. tel:[phone] ring Provider: Emir Espinal, [address] [place] [address], [address]. tel:[phone] OFFICE/OUTPAT IENT VISIT, [facility], [address] [place] [address], [id number] , [place] [phone] [facility] [place] Back Pain (chief complaint) Sacroiliitis, not elsewhere classifiedPost laminectomy syndrome, not elsewhere classifiedOthe r intervertebral disc degeneration, lumbosacral regionLow back pain Nov- 8 Jonah Pastorberoberto carlos Craig. [address] [place] [address], [id number], [place]. tel:[phone] Consulting Provider: Lucas AU, [address] [address], [place], [address]. tel:[phone] ring Provider: Emir Espinal, [address] [place] [address], [address]. tel:[phone] OFFICE/OUTPAT IENT VISIT, EST [facility], [address] [place] [address], [id number] , [place] tel:[phone] [facility] [place] Back Pain (chief complaint) Sacroiliitis, not elsewhere classifiedPost laminectomy syndrome, not elsewhere classifiedOthe r intervertebral disc degeneration, lumbosacral regionLow back pain Sep-0 8 Jonah Craig. [address] [place] [address], [id number], [place]. tel:[phone] Consulting Provider: Lucas AU, [address] [place] [address], [place], [address]. tel:[phone] ring Provider: Emir Espinal, [address] [place] [address], [address]. tel:[phone] OFFICE/OUTPAT IENT VISIT, EST [facility], [address] [place] [address], [id number] , [place] tel:[phone] [facility] [place] Back Pain (chief complaint) Sacroiliitis, not elsewhere classifiedPost laminectomy syndrome, not elsewhere classifiedLow back painOther intervertebral disc degeneration, lumbosacral region Clifford-0 8 Jonah Pastorberoberto carlos Craig. [address] [place] [address], [id number], [place]. tel:[phone] Consulting Provider: Lucas AU, [address] [place] [address], [place], [address]. tel:[phone] ring Provider: Emir Espinal, [address] [place] [address], [address]. tel:[phone] OFFICE/OUTPAT IENT VISIT, [facility], [address] [place] [address], [id number] , [place] [phone] [facility] [place] Back Pain (chief complaint) Sacroiliitis, not elsewhere classifiedPost laminectomy syndrome, not elsewhere classifiedLow back painOther intervertebral disc degeneration, lumbosacral region Apr-0 8 Jonah Craig. [address] [place] [address], [id number], [place]. tel:[phone] Consulting Provider: Lucas AU, [address] [place] [address], [place], [address]. tel:[phone] Provider: Emir Espinal, [address] [place] [address], [address]. tel:[phone] OFFICE/OUTPAT IENT VISIT, [facility], [address] [place] [address], [id number] , [place] tel:[phone] [facility] [place] Back Pain (chief complaint) Postlaminectom y syndrome, not elsewhere classifiedLow back painSacroiliit is, not elsewhere classified Feb-0 8 Jonah Craig. [address] [place] [address], [id number], [place]. tel:[phone] Consulting Provider: Lucas AU, [address] [place] [address], [place], [address]. tel:[phone] ring Provider: Emir Espinal, [address] [place] [address], [address]. tel:[phone] OFFICE/OUTPAT IENT VISIT, [facility], [address] [place] [address], [id number] , [phone] [facility] [place] Back Pain (chief complaint) Postlaminectom y syndrome, not elsewhere classifiedSacr oiliitis, not elsewhere classifiedOthe r intervertebral disc degeneration, lumbosacral region 0 8 Jonah Overberoberto carlos Craig. [address] [place] [address], [id number], [place]. tel:[phone] Referring Provider: Emir Espinal, [address] [place] [address], [address]. tel:[phone] OFFICE/OUTPAT IENT VISIT, [facility], [address] [place] [address], [id number] , [phone] [facility] Back Pain (chief complaint) Postlaminectom y syndrome, not elsewhere classifiedSacr oiliitis, not elsewhere classifiedOthe r intervertebral disc degeneration, lumbosacral region 7 Jonah Pastorberoberto carlos Craig. [address] [place] [address], [id number], [place]. tel:[phone] Referring Provider: Emir Espinal, [address] [place] [address], [address]. tel:[phone] OFFICE/OUTPAT IENT VISIT, [facility], [address] [place] [address], [id number] , [place] [phone] [facility] Back Pain (chief complaint) Postlaminectom y syndrome, not elsewhere classifiedSacr oiliitis, not elsewhere classifiedOthe r intervertebral disc degeneration, lumbosacral region 7 Van Overbeke Kiara. [address] [place] [address], [id number], [place]. tel:[phone] Consulting Provider: Lucas Talamantes PAC, [facility] [address] Carm[address] Oliveros 675 [facility] [address], [place], [address]. tel:[phone] ring Provider: Emir Espinal, [address] [place] [address], [address]. tel:[phone] OFFICE/OUTPAT IENT VISIT, [facility], [address] [place] [address], [id number] , [place] tel:[phone] [facility] [place] Back Pain (chief complaint) Postlaminectom y syndrome, not elsewhere classifiedOthe r intervertebral disc degeneration, lumbosacral regionSacroili itis, not elsewhere classifiedLong term (current) use of opiate analgesic 7 Jonah Craig. [address] [place] [address], [id number], [place]. tel:[phone] Referring Provider: Emir Espinal, [address] [place] [address], [address]. tel:[phone] OFFICE/OUTPAT IENT VISIT, [facility], [address] [place] [address], [id number] , [place] tel:[phone] [facility] Back Pain (chief complaint) Postlaminectom y syndrome, not elsewhere classifiedOthe r intervertebral disc degeneration, lumbosacral regionSacroili itis, not elsewhere classified 7 Ney Quinones. [address] [place] [address], [id number], [place]. tel:[phone] Consulting Provider: Lucas Talamantes PAC, [facility] [address] [address], [place], [address]. tel:[phone] ring Provider: Emir Espinal, [address] [place] [address], [address]. tel:[phone] OFFICE/OUTPAT IENT VISIT, [facility], [address] [place] [address], [id number] , [place] tel:[phone] [facility] [place] Back Pain (chief complaint) Postlaminectom y syndrome, not elsewhere classifiedOthe r intervertebral disc degeneration, lumbosacral region 7 Jonah Wilmer Craig. [address] [place] [address], [id number], [place]. tel:[phone] Referring Provider: Emir Espinal, [address] [place] [address], [address]. tel:[phone] OFFICE/OUTPAT IENT VISIT, [facility], [address] [place] [address], [id number] , [place] tel:[phone] [facility] [place] Back Pain (chief complaint) Postlaminectom y syndrome, not elsewhere classifiedOthe r intervertebral disc degeneration, lumbosacral region 7 Ney Stacie. [address] [place] [address], [id number], [place]. tel:[phone] Consulting Provider: Lucas AU, [address] Merc[address] [address], [place], [address]. tel:[phone] [facility] Provider: Emir Espinal, [address] [place] [address], [address]. tel:[phone] OFFICE/OUTPAT IENT VISIT, [facility], [address] [place] [address], [id number] , [place] tel:[phone] [facility] [place] low back pain (chief complaint) Postlaminectom y syndrome, not elsewhere classifiedLow back pain 7 Ney Stacie. [address] [place] [address], [id number], [place]. tel:[phone] Consulting Provider: Lucas AU, [facility] [address] Carmel Mercado [address] [facility], [place], [address]. tel:[phone] ring Provider: Emir Espinal, [address] [place] [address], [address]. tel:[phone] OFFICE/OUTPAT IENT VISIT, [facility], [address] [place], [place], [id number] , [place] tel:[phone] [facility] [place] low back pain (chief complaint) Low back painPostlamine ctomy syndrome, not elsewhere classified Ney Stacie. [address] [place], [place], [id number], [place]. tel:[phone] Referring Provider: Emir Espinal, [address] [place] [address], [address]. [phone] OFFICE/OUTPAT IENT VISIT, [facility], [address] [place] [address], [id number] , [place] tel:[phone] [facility] ([facility]) Low back painPostlamine ctomy syndrome, not elsewhere classified Ney Quinones. [address] [place] [address], [id number], [place]. tel:[phone] Consulting Provider: Lucas AU, [address] [place] [address], [address]. tel:[phone] ring Provider: Emir Espinal, [address] [place] [address], [address]. tel:[phone] OFFICE/OUTPAT IENT VISIT, [facility], [address] [place], [place], [id number] , [place] [phone] [facility] [place] Back Pain (chief complaint) Postlaminectom y syndrome, not elsewhere classified Ney Stacie. [address] [place] [address], [id number], [place]. tel:[phone] Consulting Provider: Lucas AU, [facility] [address] [place] [address], [address]. tel:[phone] [facility] Provider: Emir Espinal, [address] [place] [address], [address]. [phone] OFFICE/OUTPAT IENT VISIT, EST [facility], [address] [place] [address], [id number] , [place] tel:[phone] [facility] [place] Back Pain (chief complaint) Postlaminectom y syndrome, not elsewhere classifiedLong term (current) use of opiate analgesic Ever Medina. [address] [place], [place], [id number], [place]. tel:[phone] Consulting Provider: Lucas AU, [facility] [address], [place], [address]. tel:[phone] ring Provider: Emir Espinal, [address] [place] [address], [address]. [phone] OFFICE/OUTPAT IENT VISIT, EST [facility], [address] [place] [address], [id number] , [place] tel:[phone] [facility] [place] low back pain (chief complaint) Low back painPostlamine ctomy syndrome, not elsewhere classified Ney Quinones. [address] [place], [place], [id number], [place]. tel:[phone] Consulting Provider: Lucas AU, [address] [place] [address], [place], [address]. tel:[phone] ring Provider: Emir Espinal, [address] [place] [address], [address]. tel:[phone] OFFICE/OUTPAT IENT VISIT, EST [facility], [address] [place] [address], [id number] , [place] tel:[phone] [facility] [place] low back pain (chief complaint) Low back painPostlamine ctomy syndrome, not elsewhere classified 6 Ney Quinones. [address] [place] [address], [id number], [place]. tel:[phone] Consulting Provider: Lucas AU, [facility] [address] [place] [address], [place], [address]. [phone] ring Provider: Emir Espinal, [address] [place] [address], [address]. [phone] OFFICE/OUTPAT IENT VISIT, [facility], [address] [place] [address], [id number] , [place] tel:[phone] [facility] low back pain (chief complaint) Low back painPostlamine ctomy syndrome, not elsewhere classified 6 Ney Stacie. [address] [place] [address], [id number], [place]. tel:[phone] Consulting Provider: Lucas AU, [address] [place] [address], [place], [address]. [phone] ring Provider: Emir Espinal, [address] [place] [address], [address]. tel:[phone] OFFICE/OUTPAT IENT VISIT, [facility], [address] [place] [address], [id number] , [place] [phone] [facility] low back pain (chief complaint) Other cervical disc degeneration, high cervical regionLow back painPostlamine ctomy syndrome, not elsewhere classified 6 Ney Stacie. [address] [place] [address], [id number], [place]. tel:[phone] Consulting Provider: Lucas AU, [address] [place] [address], [place], [address]. tel:[phone] ring Provider: Emir Espinal, [address] [place] [address], [address]. tel:[phone] OFFICE/OUTPAT IENT VISIT, EST [facility], [address] [place] [address], [id number] , [place] [phone] [facility] [place] pain (chief complaint) low back pain (chief complaint) Other cervical disc degeneration, high cervical regionLow back painPostlamine ctomy syndrome, not elsewhere classified Oct 0 6 Ney Quinones. [address] [place] [address], [id number], [place]. tel:[phone] Consulting Provider: Lucas AU, [facility] [address] [facility] [address], [place], [address]. tel:[phone] ring Provider: Emir Espinal, [address] [place] [address], [address]. tel:[phone] OFFICE/OUTPAT IENT VISIT, [facility], [address] [place] [address], [id number] , [place] [phone] [facility] [place] low back pain (chief complaint) Postlaminectom y syndrome, not elsewhere classifiedLow back painLong term (current) use of opiate analgesic 6 Yasir Campos. [address] [place] [address], [id number], [place]. tel:[phone] Consulting Provider: Lucas AU, [facility] [address] [facility] Mar[address] [facility], [place], [address]. tel:[phone] ring Provider: Emir Espinal, [address] [place] [address], [address]. tel:[phone] OFFICE/OUTPAT IENT VISIT, [facility], [address] [place] [address], [id number] , [place] [phone] [facility] low back pain (chief complaint) Postlaminectom y syndrome, not elsewhere classifiedLow back pain 6 Yasir Campos. [address] [place] [address], [id number], [place]. tel:[phone] Referring Provider: Emir Espinal, [address] [place] [address], [address]. tel:[phone] OFFICE/OUTPAT IENT VISIT, [facility], [address] [place] [address], [id number] , [place] tel:[phone] [facility] low back pain (chief complaint) Postlaminectom y syndrome, not elsewhere classifiedLow back pain 6 Yasir Campos. [address] [place], [place], [id number], [place]. tel:[phone] Consulting Provider: Lucas AU, [facility] [address] [address], [place], [address]. tel:[phone] ring Provider: Emir Espinal, [address] [place] [address], [address]. tel:[phone] OFFICE/OUTPAT IENT VISIT, [facility], [address] [place] [address], [id number] , [place] tel:[phone] [facility] low back pain (chief complaint) Low back painPostlamine ctomy syndrome, not elsewhere classified 6 Ney Quinones. [address] [place] [address], [id number], [place]. tel:[phone] Consulting Provider: Lucas AU, [facility] [address], [place], [address]. tel:[phone] Provider: Emir Espinal, [address] [place] [address], [address]. tel:[phone] OFFICE/OUTPAT IENT VISIT, [facility], [address] [place] [address], [id number] , [place] tel:[phone] [facility] low back pain (chief complaint) Low back painPostlamine ctomy syndrome, not elsewhere classified 6 Ney Stacie. [address] [place], [place], [id number], [place]. tel:[phone] Consulting Provider: Lucas AU, [facility] [address], [place], [address]. tel:[phone] Provider: Emir Espinal, [address] [place] [address], [address]. tel:[phone] OFFICE/OUTPAT IENT VISIT, [facility], [address] [place] [address], [id number] , [place] tel:[phone] [facility] low back pain (chief complaint) Postlaminectom y syndrome, not elsewhere classifiedLow back pain 6 Yasir Beth. [address] [place], [place], [id number], [place]. tel:[phone] Consulting Provider: Lucas AU, [address], [place], [address]. tel:[phone] Provider: Emir Espinal, [address] [place] [address], [address]. tel:[phone] OFFICE/OUTPAT IENT VISIT, [facility], [address] [place] [address], [id number] , [place] tel:[phone] [facility] low back pain (chief complaint) Low back painPostlamine ctomy syndrome, not elsewhere classified 6 Ney Stacie. [address] [place], [place], [id number], [place]. tel:[phone] Consulting Provider: Lucas AU, [address], [place], [address]. tel:[phone] Provider: Emir Espinal, [address] [place] [address], [address]. tel:[phone] OFFICE/OUTPAT IENT VISIT, [facility], [address] [place] [address], [id number] , [place] [phone] [facility] low back pain (chief complaint) Low back pain 6 Ney Stacie. [address] [place] [address], [id number], [place]. tel:[phone] Consulting Provider: Lucas AU, [address] [facility], [place], [address]. tel:[phone] ring Provider: Emir Espinal, [address] [place] [address], [address]. tel:[phone] OFFICE/OUTPAT IENT VISIT, [facility], [address] [place] [address], [id number] , [place] [phone] [facility] low back pain (chief complaint) Low back painPostlamine ctomy syndrome, not elsewhere classified 6 Ney Stacie. [address] [place] [address], [id number], [place]. tel:[phone] Consulting Provider: Lucas AU, [address] [facility], [place], [address]. tel:[phone] ring Provider: Emir Espinal, [address] [place] [address], [address]. tel:[phone] OFFICE/OUTPAT IENT VISIT, [facility], [address] [place] [address], [id number] , [place] [phone] [facility] low back pain (chief complaint) Low back painPostlamine ctomy syndrome, not elsewhere classified 5 Ney Stacie. [address] [place] [address], [id number], [place]. tel:[phone] Consulting Provider: Lucas AU, [address], [place], [address]. [phone] ring Provider: Emir Espinal, [address] [place] [address], [address]. tel:[phone] OFFICE/OUTPAT IENT VISIT, [facility], [address] [place] [address], [id number] , [place] tel:[phone] [facility] low back pain (chief complaint) Trochanteric bursitis, right hipTrochanteri c bursitis, left hipLow back painPostlamine ctomy syndrome, not elsewhere classified 5 Ney Satcie. [address] [place], [place], [id number], [place]. tel:[phone] Consulting Provider: Lucas AU, [address] [address], [place], [address]. [phone] Provider: Emir Espinal, [address] [place] [address], [address]. tel:[phone] OFFICE/OUTPAT IENT VISIT, [facility], [address] [place] [address], [id number] , [place] [phone] [facility] low back pain (chief complaint) Low back painPostlamine ctomy syndrome, not elsewhere classified 5 Ney Stacie. [address] [place], [place], [id number], [place]. tel:[phone] Consulting Provider: Lucas AU, [address] [address], [place], [address]. tel:[phone] Provider: Emir Espinal, [address] [place] [address], [address]. tel:[phone] OFFICE/OUTPAT IENT VISIT, [facility], [address] [place], [place], [id number] , [place] tel:[phone] [facility] low back pain (chief complaint) LumbagoPostlam inectomy syndrome of lumbar region Sep-2 1-201 5 Ney Stacie. [address] [place], [place], [id number], [place]. tel:[phone] Consulting Provider: Lucas AU, [address] [facility] [address], [place], [address]. tel:[phone] ring Provider: Emir Espinal, [address] [place] [address], [address]. tel:[phone] OFFICE/OUTPAT IENT VISIT, [facility], [address] [place] [address], [id number] , [place] tel:[phone] [facility] low back pain (chief complaint) LumbagoPostlam inectomy syndrome of lumbar regionEncounte r for current fpc use of high risk medication Sep-0 3-201 5 Neydarrel Quinones. [address] [place], [place], [id number], [place]. tel:[phone] Consulting Provider: Lucas AU, [address] [facility] [address], [place], [address]. tel:[phone] ring Provider: Emir Espinal, [address] [place] [address], [address]. tel:[phone] OFFICE/OUTPAT IENT VISIT, [facility], [address] [place] [address], [id number] , [place] tel:[phone] [facility] low back pain (chief complaint) LumbagoPostlam inectomy syndrome of lumbar region Aug-0 3-201 5 Ney Stacie. [address] [place], [place], [id number], [place]. tel:[phone] Consulting Provider: Lucas AU, [address] [address], [place], [address]. tel:[phone] ring Provider: Emir Espinal, [address] [place] [address], [address]. [phone] OFFICE/OUTPAT IENT VISIT, [facility], [address] [place] [address], [id number] , [place] [phone] [facility] Back Pain (chief complaint) Lumbar failed back surgery syndrome 5 No Information Consulting Provider: Lucas AU, [address] [address], [place], [address]. tel:[phone] ring Provider: Emir Espinal, [address] [place] [address], [address]. [phone] OFFICE/OUTPAT IENT VISIT, [facility], [address] [place] [address], [id number] , [place] [phone] [facility] Back Pain (chief complaint) Lumbar failed back surgery syndromeEncoun ter for current fpc use of high risk medication 5 No Information Referring Provider: Emir Espinal, [address] [place] [address], [address]. [phone] OFFICE/OUTPAT IENT VISIT, [facility], [address] [place] [address], [id number] , [place] [phone] [facility] low back pain (chief complaint) Lumbar failed back surgery syndrome 5 No Information Referring Provider: Emir Espinal, [address] [place] [address], [address]. [phone] OFFICE/OUTPAT IENT VISIT, [facility], [address] [place] [address], [id number] , [place] [phone] [facility] Back Pain (chief complaint) Lumbar failed back surgery syndromeEncoun ter for current terminal system operator use of high risk medication No Information Referring Provider: Emir Mihir Teddy, [address] [place], [address]. tel:[phone] Family History Family Member Type Diagnosis Age At Onset No Information Payers Payer name Insurance type Covered republican ID Authoriza tiflaco(s) Medica Replacement To 16 [id number] Social History Type Description Quantity Date Captured Comments Alcohol Use Details Unknown Caffeine Use Details Unknown Tobacco Use Status No Information Smoking Status No Information Sex Female Chief Complaint And Reason For Visit From encounter dated 10/03/2022 14:52'. Back Pain (chief complaint). Description: Severity level is 8. Duration: chronic. The problem is worsening. It occurs persistently. Location of pain is lower back and BL knees. Reason For Referral Reason For Referral No Information Plan Of Treatment Date Type Action Status Goal Creatinine. Due on due Goal Weight. Due on d ue Goal CASINO INVESTIGATOR Paperwork. Due on due Goal KELP GATHERER Scanned. Due on 023 due Goal ALT (SGPT). Due on 24 due Goal PHQ-9. Due on du e Goal FIT. Due on due Goal HPV. Due on due Goal Hepatitis C screening. Due o n due Goal Unhealthy drug u se screening. Due on due Goal Review Allergy List. Due on due Goal OARS. Due on due Goal Medication Recon ciliation. Due on due Goal Zoster vaccine (1st). Due on due Goal Order Annual PT. Due on due Goal AST (SGOT). Due on due Goal Tobacco Use. Due on due Goal Lipid panel. Due on due Goal FIT-DNA. Due on due Goal Update Social History. Due o n due Goal CT-Colonography. Due on due Goal Height. Due on d ue Goal UDT. Due on due Goal Medication Recon ciliation. Due on due Goal ALT (SGPT). Due on due Goal Review Allergy List. Due on due Goal FIT-DNA. Due on due Goal Creatinine. Due on due Goal OARS. Due on due Goal PHQ-9. Due on du e Goal HPV. Due on due Goal KELP GATHERER Scanned. Due on due Goal Height. Due on d ue Goal CT-Colonography. Due on due Goal Order Annual PT. Due on due Goal CASINO INVESTIGATOR Paperwork. Due on due Goal AST (SGOT). Due on due Goal UDT. Due on due Goal Weight. Due on d ue Goal Lipid panel. Due on due Goal Tobacco Use. Due on due Goal Hepatitis C screening. Due o n due Goal Unhealthy drug u se screening. Due on due Goal Zoster vaccine (1st). Due on due Goal Update Social History. Due o n due Goal FIT. Due on due Goal Medication Recon ciliation. Due on due Goal HPV. Due on due Goal Height. Due on d ue Goal KELP GATHERER Scanned. Due on due Goal Review Allergy List. Due on due Goal PHQ-9. Due on du e Goal Creatinine. Due on due Goal Order Annual PT. Due on due Goal FIT-DNA. Due on due Goal CT-Colonography. Due on due Goal UDT. Due on due Goal Weight. Due on d ue Goal OARS. Due on due Goal Tobacco Use. Due on due Goal Update Social History. Due o n due Goal FIT. Due on due Goal Hepatitis C screening. Due o n due Goal AST (SGOT). Due on due Goal ALT (SGPT). Due on due Goal Zoster vaccine (1st). Due on due Goal Lipid panel. Due on 023 due Goal CASINO INVESTIGATOR Paperwork. Due on due Goal Unhealthy drug u se screening. Due on due Goal FIT-DNA. Due on due Goal Height. Due on d ue Goal Hepatitis C screening. Due o n due Goal Weight. Due on d ue Goal FIT. Due on due Goal CT-Colonography. Due on due Goal CASINO INVESTIGATOR Paperwork. Due on due Goal Review Allergy List. Due on due Goal AST (SGOT). Due on due Goal Medication Recon ciliation. Due on due Goal Zoster vaccine (1st). Due on due Goal Update Social History. Due o n due Goal HPV. Due on due Goal Unhealthy drug u se screening. Due on due Goal Tobacco Use. Due on 023 due Goal UDT. Due on due Goal Lipid panel. Due on 023 due Goal ALT (SGPT). Due on due Goal OARS. Due on due Goal Creatinine. Due on due Goal KELP GATHERER Scanned. Due on due Goal Order Annual PT. Due on due Goal PHQ-9. Due on du e Goal AST (SGOT). Due on due Goal CASINO INVESTIGATOR Paperwork. Due on due Goal Order Annual PT. Due on due Goal Creatinine. Due on due Goal KELP GATHERER Scanned. Due on due Goal ALT (SGPT). Due on due Goal OARS. Due on due Goal UDT. Due on due Goal Update Social History. Due o n due Goal Lipid panel. Due on due Goal Height. Due on d ue Goal Medication Recon ciliation. Due on due Goal PHQ-9. Due on du e Goal HPV. Due on due Goal Review Allergy List. Due on due Goal Weight. Due on d ue Goal FIT. Due on due Goal FIT-DNA. Due on due Goal Hepatitis C screening. Due o n due Goal Zoster vaccine (1st). Due on due Goal Tobacco Use. Due on due Goal CT-Colonography. Due on due Goal Unhealthy drug u se screening. Due on due Goal ALT (SGPT). Due on due Goal Unhealthy drug u se screening. Due on due Goal UDT. Due on due Goal FIT-DNA. Due on due Goal HPV. Due on due Goal AST (SGOT). Due on due Goal Update Social History. Due o n due Goal CT-Colonography. Due on due Goal Hepatitis C screening. Due o n due Goal PHQ-9. Due on du e Goal Zoster vaccine (1st). Due on due Goal Medication Recon ciliation. Due on due Goal OARS. Due on due Goal KELP GATHERER Scanned. Due on due Goal Height. Due on d ue Goal Lipid panel. Due on due Goal FIT. Due on due Goal Order Annual PT. Due on due Goal CASINO INVESTIGATOR Paperwork. Due on due Goal Tobacco Use. Due on due Goal Review Allergy List. Due on due Goal Creatinine. Due on due Goal Weight. Due on d ue Goal KELP GATHERER Scanned. Due on due Goal Order Annual PT. Due on due Goal ALT (SGPT). Due on due Goal HPV. Due on due Goal OARS. Due on due Goal UDT. Due on due Goal Height. Due on d ue Goal Creatinine. Due on due Goal FIT-DNA. Due on due Goal AST (SGOT). Due on due Goal CASINO INVESTIGATOR Paperwork. Due on due Goal Review Allergy List. Due on due Goal Tobacco Use. Due on due Goal Unhealthy drug u se screening. Due on due Goal Hepatitis C screening. Due o n due Goal Medication Recon ciliation. Due on due Goal Lipid panel. Due on due Goal PHQ-9. Due on du e Goal FIT. Due on due Goal CT-Colonography. Due on due Goal Update Social History. Due o n due Goal Weight. Due on d ue Goal Zoster vaccine (1st). Due on due Goal Zoster vaccine (1st). Due on due Goal HPV. Due on due Goal AST (SGOT). Due on due Goal CASINO INVESTIGATOR Paperwork. Due on due Goal Hepatitis C screening. Due o n due Goal UDT. Due on due Goal ALT (SGPT). Due on due Goal Weight. Due on d ue Goal Review Allergy List. Due on due Goal KELP GATHERER Scanned. Due on due Goal OARS. Due on due Goal Order Annual PT. Due on due Goal Creatinine. Due on due Goal FIT. Due on due Goal Height. Due on d ue Goal PHQ-9. Due on du e Goal Unhealthy drug u se screening. Due on due Goal FIT-DNA. Due on due Goal Lipid panel. Due on due Goal Tobacco Use. Due on due Goal CT-Colonography. Due on due Goal Update Social History. Due o n due Goal Medication Recon ciliation. Due on due Goal FIT. Due on due Goal ALT (SGPT). Due on due Goal Weight. Due on d ue Goal OARS. Due on due Goal Height. Due on d ue Goal HPV. Due on due Goal Unhealthy drug u se screening. Due on due Goal PHQ-9. Due on du e Goal Tobacco Use. Due on due Goal CT-Colonography. Due on due Goal Update Social History. Due o n due Goal UDT. Due on due Goal Zoster vaccine (). Due on due Goal Medication Recon ciliation. Due on due Goal AST (SGOT). Due on due Goal Order Annual PT. Due on due Goal CASINO INVESTIGATOR Paperwork. Due on due Goal Creatinine. Due on due Goal Review Allergy List. Due on due Goal Hepatitis C screening. Due o n due Goal KELP GATHERER Scanned. Due on due Goal Lipid panel. Due on due Goal FIT-DNA. Due on due Goal OARS. Due on due Goal CASINO INVESTIGATOR Paperwork. Due on due Goal Hepatitis C screening. Due o n due Goal Tobacco Use. Due on due Goal Zoster vaccine (1st). Due on due Goal HPV. Due on due Goal FIT-DNA. Due on due Goal CT-Colonography. Due on due Goal Weight. Due on d ue Goal Height. Due on d ue Goal Unhealthy drug u se screening. Due on due Goal ALT (SGPT). Due on due Goal Lipid panel. Due on due Goal Creatinine. Due on due Goal Order Annual PT. Due on due Goal Update Social History. Due o n due Goal PHQ-9. Due on du e Goal AST (SGOT). Due on due Goal Review Allergy List. Due on due Goal UDT. Due on due Goal Medication Recon ciliation. Due on due Goal FIT. Due on due Goal KELP GATHERER Scanned. Due on due Goal Lipid panel. Due on due Goal PHQ-9. Due on du e Goal UDT. Due on due Goal Height. Due on d ue Goal OARS. Due on due Goal KELP GATHERER Scanned. Due on due Goal Update Social History. Due o n due Goal CT-Colonography. Due on due Goal HPV. Due on due Goal AST (SGOT). Due on due Goal Zoster vaccine (1st). Due on due Goal CASINO INVESTIGATOR Paperwork. Due on due Goal Review Allergy List. Due on due Goal FIT-DNA. Due on due Goal Hepatitis C screening. Due o n due Goal FIT. Due on due Goal Creatinine. Due on due Goal Unhealthy drug u se screening. Due on due Goal ALT (SGPT). Due on due Goal Medication Recon ciliation. Due on due Goal Order Annual PT. Due on due Goal Weight. Due on d ue Goal Tobacco Use. Due on due Goal KELP GATHERER Scanned. Due on due Goal FIT-DNA. Due on due Goal Medication Recon ciliation. Due on due Goal AST (SGOT). Due on due Goal PHQ-9. Due on du e Goal Review Allergy List. Due on due Goal Lipid panel. Due on due Goal OARS. Due on due Goal Hepatitis C screening. Due o n due Goal Creatinine. Due on due Goal Update Social History. Due o n due Goal ALT (SGPT). Due on due Goal Order Annual PT. Due on due Goal UDT. Due on due Goal HPV. Due on due Goal Zoster vaccine (). Due on due Goal FIT. Due on due Goal Unhealthy drug u se screening. Due on due Goal CT-Colonography. Due on due Goal Height. Due on d ue Goal Weight. Due on d ue Goal CASINO INVESTIGATOR Paperwork. Due on due Goal Tobacco Use. Due on due Goal KELP GATHERER Scanned. Due on due Goal Order Annual PT. Due on due Goal PHQ-9. Due on du e Goal FIT-DNA. Due on due Goal Zoster vaccine (). Due on due Goal OARS. Due on due Goal Lipid panel. Due on due Goal UDT. Due on due Goal CASINO INVESTIGATOR Paperwork. Due on due Goal Height. Due on d ue Goal Update Social History. Due o n due Goal Creatinine. Due on due Goal CT-Colonography. Due on due Goal ALT (SGPT). Due on due Goal HPV. Due on due Goal AST (SGOT). Due on due Goal Review Allergy List. Due on due Goal Medication Recon ciliation. Due on due Goal Hepatitis C screening. Due o n due Goal Weight. Due on d ue Goal Unhealthy drug u se screening. Due on due Goal FIT. Due on due Goal Tobacco Use. Due on due Goal Hepatitis C screening. Due o n due Goal AST (SGOT). Due on due Goal Medication Recon ciliation. Due on due Goal KELP GATHERER Scanned. Due on due Goal Order Annual PT. Due on due Goal OARS. Due on due Goal HPV. Due on due Goal Update Social History. Due o n due Goal CASINO INVESTIGATOR Paperwork. Due on due Goal PHQ-9. Due on du e Goal Weight. Due on d ue Goal Review Allergy List. Due on due Goal UDT. Due on due Goal Zoster vaccine (). Due on due Goal Creatinine. Due on due Goal FIT-DNA. Due on due Goal ALT (SGPT). Due on due Goal CT-Colonography. Due on due Goal Lipid panel. Due on due Goal Unhealthy drug u se screening. Due on due Goal Tobacco Use. Due on due Goal Height. Due on d ue Goal FIT. Due on due Goal Order Annual PT. Due on due Goal KELP GATHERER Scanned. Due on due Goal Zoster vaccine (). Due on due Goal OARS. Due on due Goal CASINO INVESTIGATOR Paperwork. Due on due Goal CT-Colonography. Due on due Goal Review Allergy List. Due on due Goal Weight. Due on d ue Goal ALT (SGPT). Due on due Goal FIT. Due on due Goal UDT. Due on due Goal HPV. Due on due Goal Creatinine. Due on due Goal FIT-DNA. Due on due Goal AST (SGOT). Due on due Goal Height. Due on d ue Goal Unhealthy drug u se screening. Due on due Goal Tobacco Use. Due on due Goal Lipid panel. Due on due Goal Update Social History. Due o n due Goal PHQ-9. Due on du e Goal Medication Recon ciliation. Due on due Goal Hepatitis C screening. Due o n due Goal ALT (SGPT). Due on due Goal UDT. Due on due Goal Order Annual PT. Due on due Goal OARS. Due on due Goal FIT. Due on due Goal Hepatitis C screening. Due o n due Goal PHQ-9. Due on du e Goal HPV. Due on due Goal Lipid panel. Due on due Goal Medication Recon ciliation. Due on due Goal FIT-DNA. Due on due Goal Creatinine. Due on due Goal Weight. Due on d ue Goal KELP GATHERER Scanned. Due on due Goal Tobacco Use. Due on 022 due Goal Height. Due on d ue Goal AST (SGOT). Due on due Goal Unhealthy drug u se screening. Due on due Goal CASINO INVESTIGATOR Paperwork. Due on due Goal Review Allergy List. Due on due Goal CT-Colonography. Due on due Goal Zoster vaccine (). Due on due Goal Update Social History. Due o n due Goal FIT. Due on due Goal Order Annual PT. Due on due Goal Medication Recon ciliation. Due on due Goal ALT (SGPT). Due on due Goal Zoster vaccine (). Due on due Goal UDT. Due on due Goal Lipid panel. Due on 022 due Goal Height. Due on d ue Goal OARS. Due on due Goal AST (SGOT). Due on due Goal FIT-DNA. Due on due Goal CASINO INVESTIGATOR Paperwork. Due on due Goal PHQ-9. Due on du e Goal Unhealthy drug u se screening. Due on due Goal Creatinine. Due on due Goal HPV. Due on due Goal Tobacco Use. Due on due Goal Update Social History. Due o n due Goal KELP GATHERER Scanned. Due on due Goal Review Allergy List. Due on due Goal Hepatitis C screening. Due o n due Goal CT-Colonography. Due on due Goal Weight. Due on d ue Goal Order Annual PT. Due on due Goal Height. Due on d ue Goal FIT-DNA. Due on due Goal Creatinine. Due on due Goal Hepatitis C screening. Due o n due Goal CASINO INVESTIGATOR Paperwork. Due on due Goal PHQ-9. Due on du e Goal Review Allergy List. Due on due Goal Unhealthy drug u se screening. Due on due Goal Update Social History. Due o n due Goal FIT. Due on due Goal Zoster vaccine (1st). Due on due Goal Lipid panel. Due on due Goal Medication Recon ciliation. Due on due Goal HPV. Due on due Goal AST (SGOT). Due on due Goal Tobacco Use. Due on due Goal CT-Colonography. Due on due Goal Weight. Due on d ue Goal KELP GATHERER Scanned. Due on due Goal ALT (SGPT). Due on due Goal OARS. Due on due Goal UDT. Due on due Goal Review Allergy List. Due on due Goal Lipid panel. Due on due Goal Order Annual PT. Due on due Goal Hepatitis C screening. Due o n due Goal Weight. Due on d ue Goal CASINO INVESTIGATOR Paperwork. Due on due Goal Medication Recon ciliation. Due on due Goal Unhealthy drug u se screening. Due on due Goal OARS. Due on due Goal Update Social History. Due o n due Goal FIT. Due on due Goal PHQ-9. Due on du e Goal UDT. Due on due Goal Creatinine. Due on due Goal KELP GATHERER Scanned. Due on due Goal ALT (SGPT). Due on due Goal Tobacco Use. Due on due Goal AST (SGOT). Due on due Goal Height. Due on d ue Goal HPV. Due on due Goal CT-Colonography. Due on due Goal FIT-DNA. Due on due Goal Zoster vaccine (1st). Due on due Goal Lipid panel. Due on due Goal Creatinine. Due on due Goal OARS. Due on due Goal Update Social History. Due o n due Goal CASINO INVESTIGATOR Paperwork. Due on due Goal PHQ-9. Due on du e Goal FIT. Due on due Goal Weight. Due on d ue Goal Medication Recon ciliation. Due on due Goal CT-Colonography. Due on due Goal UDT. Due on due Goal Review Allergy List. Due on due Goal Order Annual PT. Due on due Goal KELP GATHERER Scanned. Due on due Goal AST (SGOT). Due on due Goal HPV. Due on due Goal ALT (SGPT). Due on due Goal Height. Due on d ue Goal Tobacco Use. Due on due Goal FIT-DNA. Due on due Goal Unhealthy drug u se screening. Due on due Goal Hepatitis C screening. Due o n due Goal Zoster vaccine (1st). Due on due Goal Weight. Due on d ue Goal Height. Due on d ue Goal Hepatitis C screening. Due o n due Goal AST (SGOT). Due on due Goal UDT. Due on due Goal FIT. Due on due Goal CASINO INVESTIGATOR Paperwork. Due on due Goal Creatinine. Due on due Goal PHQ-9. Due on du e Goal KELP GATHERER Scanned. Due on due Goal Review Allergy List. Due on due Goal CT-Colonography. Due on due Goal Order Annual PT. Due on due Goal Medication Recon ciliation. Due on due Goal HPV. Due on due Goal ALT (SGPT). Due on due Goal Lipid panel. Due on due Goal Tobacco Use. Due on due Goal Unhealthy drug u se screening. Due on due Goal OARS. Due on due Goal Zoster vaccine (1st). Due on due Goal Update Social History. Due o n due Goal FIT-DNA. Due on due Goal FIT-DNA. Due on due Goal OARS. Due on due Goal Creatinine. Due on due Goal CT-Colonography. Due on due Goal Height. Due on d ue Goal PHQ-9. Due on du e Goal Hepatitis C screening. Due o n due Goal Review Allergy List. Due on due Goal FIT. Due on due Goal HPV. Due on due Goal ALT (SGPT). Due on due Goal AST (SGOT). Due on due Goal Weight. Due on d ue Goal Order Annual PT. Due on due Goal Update Social History. Due o n due Goal UDT. Due on due Goal Tobacco Use. Due on due Goal CASINO INVESTIGATOR Paperwork. Due on due Goal KELP GATHERER Scanned. Due on due Goal Zoster vaccine (1st). Due on due Goal Lipid panel. Due on due Goal Unhealthy drug u se screening. Due on due Goal Medication Recon ciliation. Due on due Goal Update Social History. Due o n due Goal Review Allergy List. Due on due Goal ALT (SGPT). Due on due Goal AST (SGOT). Due on due Goal Weight. Due on d ue Goal KELP GATHERER Scanned. Due on due Goal Height. Due on d ue Goal CASINO INVESTIGATOR Paperwork. Due on due Goal Unhealthy drug u se screening. Due on due Goal OARS. Due on due Goal FIT. Due on due Goal Order Annual PT. Due on due Goal Creatinine. Due on due Goal Tobacco Use. Due on due Goal Lipid panel. Due on due Goal Medication Recon ciliation. Due on due Goal CT-Colonography. Due on due Goal UDT. Due on due Goal PHQ-9. Due on du e Goal Zoster vaccine (1st). Due on due Goal FIT-DNA. Due on due Goal HPV. Due on due Goal Hepatitis C screening. Due o n due Goal Height. Due on d ue Goal AST (SGOT). Due on due Goal UDT. Due on due Goal Lipid panel. Due on due Goal ALT (SGPT). Due on due Goal OARS. Due on due Goal Creatinine. Due on due Goal Order Annual PT. Due on due Goal CASINO INVESTIGATOR Paperwork. Due on due Goal KELP GATHERER Scanned. Due on due Goal Unhealthy drug u se screening. Due on due Goal Weight. Due on d ue Goal FIT. Due on due Goal Review Allergy List. Due on due Goal CT-Colonography. Due on due Goal PHQ-9. Due on du e Goal Update Social History. Due o n due Goal Tobacco Use. Due on due Goal Medication Recon ciliation. Due on due Goal FIT-DNA. Due on due Goal Hepatitis C screening. Due o n due Goal Zoster vaccine (1st). Due on due Goal HPV. Due on due Goal KELP GATHERER Scanned. Due on due Goal OARS. Due on due Goal Height. Due on d ue Goal UDT. Due on due Goal Update Social History. Due o n due Goal PHQ-9. Due on du e Goal CASINO INVESTIGATOR Paperwork. Due on due Goal Creatinine. Due on due Goal Tobacco Use. Due on due Goal Order Annual PT. Due on due Goal Review Allergy List. Due on due Goal Medication Recon ciliation. Due on due Goal AST (SGOT). Due on due Goal ALT (SGPT). Due on due Goal Weight. Due on d ue Goal CT-Colonography. Due on due Goal FIT-DNA. Due on due Goal FIT. Due on due Goal Zoster vaccine (1st). Due on due Goal Hepatitis C screening. Due o n due Goal HPV. Due on due Goal Unhealthy drug u se screening. Due on due Goal Lipid panel. Due on due Goal Review Allergy List. Due on due Goal PHQ-9. Due on du e Goal AST (SGOT). Due on due Goal Order Annual PT. Due on due Goal Creatinine. Due on due Goal Tobacco Use. Due on due Goal Update Social History. Due o n due Goal UDT. Due on due Goal CASINO INVESTIGATOR Paperwork. Due on due Goal Height. Due on d ue Goal OARS. Due on due Goal KELP GATHERER Scanned. Due on due Goal Weight. Due on d ue Goal ALT (SGPT). Due on due Goal Medication Recon ciliation. Due on due Goal ALT (SGPT). Due on due Goal Medication Recon ciliation. Due on due Goal CASINO INVESTIGATOR Paperwork. Due on due Goal Creatinine. Due on due Goal Weight. Due on d ue Goal AST (SGOT). Due on due Goal KELP GATHERER Scanned. Due on due Goal Tobacco Use. Due on due Goal Review Allergy List. Due on due Goal PHQ-9. Due on du e Goal OARS. Due on due Goal Update Social History. Due o n due Goal UDT. Due on due Goal Order Annual PT. Due on due Goal Height. Due on d ue Goal CASINO INVESTIGATOR Paperwork. Due on due Goal UDT. Due on due Goal ALT (SGPT). Due on due Goal KELP GATHERER Scanned. Due on due Goal OARS. Due on due Goal Update Social History. Due o n due Goal AST (SGOT). Due on due Goal Order Annual PT. Due on due Goal Weight. Due on d ue Goal PHQ-9. Due on du e Goal Creatinine. Due on due Goal Height. Due on d ue Goal Review Allergy List. Due on due Goal Medication Recon ciliation. Due on due Goal Tobacco Use. Due on due Goal PHQ-9. Due on du e Goal Creatinine. Due on due Goal ALT (SGPT). Due on due Goal Medication Recon ciliation. Due on due Goal Order Annual PT. Due on due Goal AST (SGOT). Due on due Goal UDT. Due on due Goal Review Allergy List. Due on due Goal CASINO INVESTIGATOR Paperwork. Due on due Goal KELP GATHERER Scanned. Due on due Goal OARS. Due on due Goal Update Social History. Due o n due Goal Tobacco Use. Due on due Goal Height. Due on d ue Goal Weight. Due on d ue Goal Height. Due on d ue Goal PHQ-9. Due on du e Goal Weight. Due on d ue Goal Medication Recon ciliation. Due on due Goal KELP GATHERER Scanned. Due on due Goal Review Allergy List. Due on due Goal Update Social History. Due o n due Goal ALT (SGPT). Due on due Goal OARS. Due on due Goal Tobacco Use. Due on due Goal AST (SGOT). Due on due Goal Creatinine. Due on due Goal CASINO INVESTIGATOR Paperwork. Due on due Goal Order Annual PT. Due on due Goal UDT. Due on due Goal KELP GATHERER Scanned. Due on due Goal CASINO INVESTIGATOR Paperwork. Due on due Goal OARS. Due on due Goal ALT (SGPT). Due on due Goal Tobacco Use. Due on due Goal Medication Recon ciliation. Due on due Goal Review Allergy List. Due on due Goal AST (SGOT). Due on due Goal Order Annual PT. Due on due Goal Creatinine. Due on due Goal Height. Due on d ue Goal PHQ-9. Due on du e Goal UDT. Due on due Goal Weight. Due on d ue Goal Update Social History. Due o n due Goal KELP GATHERER Scanned. Due on due Goal OARS. Due on due Goal ALT (SGPT). Due on due Goal CASINO INVESTIGATOR Paperwork. Due on due Goal Order Annual PT. Due on due Goal UDT. Due on due Goal Height. Due on d ue Goal AST (SGOT). Due on due Goal Weight. Due on d ue Goal Medication Recon ciliation. Due on due Goal PHQ-9. Due on du e Goal Review Allergy List. Due on due Goal Tobacco Use. Due on due Goal Update Social History. Due o n due Goal Creatinine. Due on due Goal OARS. Due on due Goal Creatinine. Due on due Goal Update Social History. Due o n due Goal ALT (SGPT). Due on due Goal Tobacco Use. Due on due Goal KELP GATHERER Scanned. Due on due Goal Review Allergy List. Due on due Goal Medication Recon ciliation. Due on due Goal PHQ-9. Due on du e Goal Weight. Due on d ue Goal Order Annual PT. Due on due Goal AST (SGOT). Due on due Goal UDT. Due on due Goal Height. Due on d ue Goal CASINO INVESTIGATOR Paperwork. Due on due Goal CASINO INVESTIGATOR Paperwork. Due on due Goal UDT. Due on due Goal PHQ-9. Due on du e Goal Review Allergy List. Due on due Goal Medication Recon ciliation. Due on due Goal Order Annual PT. Due on due Goal KELP GATHERER Scanned. Due on due Goal Tobacco Use. Due on due Goal ALT (SGPT). Due on due Goal Height. Due on d ue Goal OARS. Due on due Goal Update Social History. Due o n due Goal Creatinine. Due on due Goal Weight. Due on d ue Goal AST (SGOT). Due on due Goal Creatinine. Due on due Goal AST (SGOT). Due on due Goal Review Allergy List. Due on due Goal UDT. Due on due Goal PHQ-9. Due on du e Goal Weight. Due on d ue Goal CASINO INVESTIGATOR Paperwork. Due on due Goal KELP GATHERER Scanned. Due on due Goal OARS. Due on due Goal Tobacco Use. Due on due Goal Order Annual PT. Due on due Goal ALT (SGPT). Due on due Goal Medication Recon ciliation. Due on due Goal Height. Due on d ue Goal Update Social History. Due o n due Goal PHQ-9. Due on du e Goal Weight. Due on d ue Goal Tobacco Use. Due on due Goal OARS. Due on due Goal AST (SGOT). Due on due Goal Creatinine. Due on due Goal KELP GATHERER Scanned. Due on due Goal Height. Due on d ue Goal Update Social History. Due o n due Goal Review Allergy List. Due on due Goal CASINO INVESTIGATOR Paperwork. Due on due Goal UDT. Due on due Goal ALT (SGPT). Due on due Goal Order Annual PT. Due on due Goal Medication Recon ciliation. Due on due Goal Tobacco Use. Due on due Goal AST (SGOT). Due on due Goal ALT (SGPT). Due on due Goal Review Allergy List. Due on due Goal OARS. Due on due Goal Height. Due on d ue Goal PHQ-9. Due on du e Goal Update Social History. Due o n due Goal Weight. Due on d ue Goal Creatinine. Due on due Goal UDT. Due on due Goal CASINO INVESTIGATOR Paperwork. Due on due Goal KELP GATHERER Scanned. Due on due Goal Order Annual PT. Due on due Goal Medication Recon ciliation. Due on due Goal Medication Recon ciliation. Due on due Goal Creatinine. Due on due Goal ALT (SGPT). Due on due Goal Tobacco Use. Due on due Goal UDT. Due on due Goal OARS. Due on due Goal Height. Due on d ue Goal CASINO INVESTIGATOR Paperwork. Due on due Goal AST (SGOT). Due on due Goal Weight. Due on d ue Goal PHQ-9. Due on du e Goal KELP GATHERER Scanned. Due on due Goal Order Annual PT. Due on due Goal Update Social History. Due o n due Goal Review Allergy List. Due on due Goal Medication Recon ciliation. Due on due Goal PHQ-9. Due on du e Goal Tobacco Use. Due on due Goal Update Social History. Due o n due Goal ALT (SGPT). Due on due Goal AST (SGOT). Due on due Goal Order Annual PT. Due on due Goal Height. Due on d ue Goal CASINO INVESTIGATOR Paperwork. Due on due Goal Creatinine. Due on 17 due Goal Weight. Due on d ue Goal Review Allergy List. Due on due Goal KELP GATHERER Scanned. Due on due Goal OARS. Due on due Goal UDT. Due on due Goal Review Allergy List. Due on due Goal ALT (SGPT). Due on due Goal OARS. Due on due Goal Update Social History. Due o n due Goal Weight. Due on d ue Goal CASINO INVESTIGATOR Paperwork. Due on due Goal Height. Due on d ue Goal Tobacco Use. Due on due Goal PHQ-9. Due on du e Goal KELP GATHERER Scanned. Due on due Goal UDT. Due on due Goal Order Annual PT. Due on due Goal AST (SGOT). Due on due Goal Creatinine. Due on 17 due Goal Medication Recon ciliation. Due on due Referral Ordered: CT LUMBAR SPINE W/O DYE Bilateral ordered Appointment Ramona Sanders BOOKED Future Order: Lab Order Drug [facility] t Def 22+ Classes (G0483), Ordered on: Ordered Future Order: Lab Order COMPLIAN CE DRUG ANALYSIS, URINE, WITH MED REPORT ([id number]), Ordered on: Ordered Future Order: Lab Order Drug [facility] t Def 22+ Classes (G0483), Ordered on: Ordered Future Order: Lab Order COMPLIAN CE DRUG ANALYSIS, URINE, WITH MED REPORT ([id number]), Ordered on: Ordered Future Order: Lab Order Drug [facility] t Def 22+ Classes (G0483), Ordered on: Ordered Future Order: Lab Order COMPLIAN CE DRUG ANALYSIS, URINE, WITH MED REPORT ([id number]), Ordered on: Ordered History Of Present Illness Encounter Date Complaint History Of Prese nt Illness Back Pain Severity level i s 8. Duration: chronic. The problem is worsening. It occurs persistently. Location of pain is lower back and BL knees. Comments: Ramona presents via [facility] for a virtual follow up and medication refill c/o chronic back pain. Her pain has been worse since SYD. States her knee pain is most bothersome.Reports knee pain has been severe. Believes she injured her knees by lifting a heavy box on Friday and the pain has since worsened. Mentions pain under her patella but notes pain is worse in the right leg. She can't stretch her calf without her knee feeling pain. States she was supposed to see her doctor this week but the appointment was cancelled so she is waiting to consult about her knee. She is hoping to go to [facility] tomorrow.Current medication regimen provides around 40% pain relief. Denies side effects from current medication regimen, besides OIC. No other concerns today. Back Pain Severity level i s 7. Duration: chronic. The problem is worsening. It occurs persistently. Location of pain is lower back. Comments: Ramona presents via [facility] for a virtual follow-up and medication refill c/o chronic back pain. Her pain has been worse since SYD. She reports that she has noticed an increase in back pain that started around a week ago. She describes the pain as burning and notes that when the pain comes she has to sit down immediately. She states she will give it another month to see if the pain will subside.Current medication regimen provides roughly 40% pain relief. She notes that she thinks the increase in pain is d/t the decrease in her medication dosage. She would like to keep her dosage the same and plans on adding Tylenol into her regimen. She also mentions that [employer] has been beneficial for her OIC. Denies side effects from current medication regimen, besides OIC. She mentions she is planning on looking inter medical cannabis certification. No other concerns today. Back Pain Severity level i s 4. Duration: chronic. The problem is stable. It occurs persistently. Location of pain is middle back and lower back. The client describes the pain as an ache and sharp. Symptoms are aggravated by ascending stairs, bending, descending stairs, lifting, running, twisting and prolonged positioning. Symptoms are relieved by lying down, pain meds/drugs, rest, walking and changing positions. Comments: Ramona presents in clinic for a follow-up and medication refill c/o chronic back pain. States pain has been stable and fluctuating since SYD. She reports that her pain comes and goes after her BL knee injection on 07/25/22.States that she experienced another muscle spasm recently but it ended up going away shortly after unlike in the past where it would last for a while.Reports movantik was not beneficial to aid her constipation. Inquires if she can get a prescription for a stronger medication in that category.Current medication regimen provides roughly 50% pain relief, allowing for increased functionality. Notes that she didn't experience withdrawal with her medication dose decrease. Denies side effects from current medication regimen, besides OIC. No other concerns today. Back pain Severity level i s 7. Duration: chronic. The problem is worsening. It occurs persistently. Comments: Ramona presents for a virtual follow-up and medication refill c/o chronic back pain. States pain has been worse since SYD. She continues to have worsening BL knee pain (R>L) that radiates down the anterior leg and terminates above the ankle. She thinks this may be related to her spine being misaligned, despite normal BL XR. She has been placing lidocaine patches on at night which has provided appreciable pain relief. She has also tried ice, which hasn't provided any relief. Would be interested in having knee injections.Current medication regimen provides roughly 50% pain relief, allowing for increased functionality. Taper 2 months ago and was well tolerated and she would like to continue slowly tapering. Denies side effects from current medication regimen, besides OIC. No other concerns today. Back Pain Severity level i s 8. Duration: chronic. The problem is worsening. It occurs persistently. Location of pain is lower back and right knee. Comments: Ramona presents for a follow-up and medication refill c/o chronic back pain.Primary concern today of worsening right knee pain that radiates down the anterior leg and terminates above the ankle. She has been placing lidocaine patches on at night which has provided appreciable pain relief. She will be following up with primary care for further workup.Current medication regimen provides roughly 40% pain relief, allowing for increased functionality. Taper over the past month was well tolerated. She would like to remain on current dose until she is able to complete workup regarding worsening right knee pain. Denies side effects from current medication regimen. No other concerns today. back pain Severity level i s 6. Duration: chronic. The problem is fluctuating. It occurs intermittently. The client describes the pain as an ache and sharp. Symptoms are aggravated by ascending stairs, bending, descending stairs, lifting, twisting and prolonged positioning. Symptoms are relieved by lying down, pain meds/drugs, rest and changing positions. Comments: Ramona presents for a follow-up and medication refill c/o chronic back pain. Reports she is still experiencing spasms.S/p lumbar sx on 01/16/22 at [facility], and continues to be in the healing process. F/u for a second opinion with [facility] on 04/11/22 who recommended lumbar CARLOS. Further states she will not be completing sx for the screw in her back as it is not urgent at this time. Reports she tries to stay active.Current medication regimen provides roughly 40% pain relief, allowing for increased functionality. Previous decrease of Oxycodone 15mg to Oxycodone 10mg, with which pt states no noticeable difference. She is interested is further tapering. Denies side effects from current medication regimen. No other concerns today. Back Pain Severity level i s 8. Duration: chronic. The problem is worsening. Comments: Ramona presents virtually today for a follow-up and medication refill. Patient is followed regarding her chronic back pain. She is s/p back surgery, completed on 01/16/22 at [facility], and continues to be in the healing process. Scheduled for a second opinion with [facility] on 04/11. Current medication regimen provides roughly 40% pain relief, allowing for increased functionality. Patient expresses how she would like to drop her Oxycodone to 10mg from 15mg this month. Eventually would like to decrease her Oxycontin dosages as well due to the potential of another surgery. Denies side effects from current medication regimen. No other concerns today. Back Pain Severity level i s 7. The problem is worsening. Location of pain is lower back. Comments: Ramona presents virtually today for a follow-up and medication refill. Patient is followed regarding her chronic back pain. She is s/p back surgery, completed on 01/16/22 at [facility], and continues to be in the healing process. Patient states she is actively seeking a second opinion with [facility] regarding her back.Current medication regimen provides roughly 40% pain relief, allowing for increased functionality. Patient expresses how she would be uncomfortable with the idea of trying to drop her Oxycodone to 10mg from 15mg - originally discussed during a previous OV. Denies side effects from current medication regimen. No other concerns today. Back pain Severity level i s 6. Duration: chronic. The problem is fluctuating. It occurs persistently. Location of pain is lower back. The client describes the pain as burning and sharp. Symptoms are aggravated by ascending stairs, bending, descending stairs, lifting, running, twisting and prolonged positioning. Symptoms are relieved by heat, lying down, pain meds/drugs and rest. Comments: Ramona presents for a follow up and medication refill. Patient is followed for chronic back pain. S/p back surgery on 01/16 at [facility], patient is still experiencing post-op pain. States that she thought she'd be further along in her recovery by now.Reports current medication regimen provides moderate pain relief. Denies other side effects from current medication regimen. No other concerns today. Back pain Severity level i s 8. Duration: chronic. The problem is worsening. Location of pain is upper back and lower back. Comments: Ramona presents for a virtual follow up and medication refill. Patient c/o back pain that continues to worsen.Upcoming back surgery on 01/16 at [facility]. May also needs an additional surgery for loose screw on right side.Reports current medication regimen provides at most 40% pain relief. Denies other side effects from current medication regimen. No other concerns today. Back pain Severity level i s 7. Duration: chronic. The problem is worsening. Location of pain is upper back and lower back. Comments: Ramona presents for a virtual follow up and medication refill. Patient c/o low back pain and upper back spasms that have been worse. Has upcoming diagnostic injection and a potential back surgery.Reports low blood sugar last month which she realizes had been causing her dizziness and lack of coordination at last visit.A portion of the visit was spent discussing the patient's dissatisfaction with contacting triage.Reports current medication regimen provides 50% pain relief and allows for increased functionality. Denies other side effects from current medication regimen. No other concerns today. Comments: Ramona presents for a follow up and medication refill in the setting of chronic left low back and neck pain. Pain has been stable since last visit. Has developed radiation into left arm with stinging and twinging.Continues to experience occasional balance issues.Patient forgot medications at home today. Reports current medication regimen provides moderate pain relief and allows for increased functionality. Inquired about tizanidine, previously managed by PCP. Patient would like to consolidate prescriptions to one prescriber. Endorses OIC, managed with [facility]. Denies other side effects from current medication regimen. No other concerns today. Back pain Severity level i s 9. Duration: chronic. The problem is fluctuating. It occurs persistently. Location of pain is lower back, neck and left arm. Symptoms are aggravated by lying/rest and sitting. Symptoms are relieved by lying down, pain meds/drugs and rest. Back Pain Severity level i s 7. Duration: chronic. The problem is worsening. It occurs persistently. Location of pain is lower back and neck. The client describes the pain as an ache, burning, shooting and tingling. Symptoms are aggravated by bending, lifting, running, sitting, standing, twisting, walking, housework, movement, stairs and prolonged positioning. Symptoms are relieved by pain meds/drugs and rest. Comments: Ramona is a 60 y/o female who presents via [facility] for virtual follow up and medication refill in the setting of chronic left low back and neck pain. Pain has been worse this month. S/p neck surgery on 08/21/[address] Brcok Sawyer MD. Ever since the surgery, she has been experiencing pain on the L side of her neck with radiation into the L shoulder, L hand, and fingertips. Relief is achieved with heat and ice, most effective with lidocaine patches. She plans to follow up with her surgeon soon. Reports current medication regimen provides 50% pain relief and allows for increased functionality. She inquires about receiving a prescription for lidocaine patches since it has been financially burdening for her to purchase it [id number]. Endorses OIC, managed with [facility]. Denies other side effects from current medication regimen. No other concerns today. Back pain Severity level i s 7. The problem is stable. It occurs persistently. Location of pain is lower back and neck. The client describes the pain as an ache and sharp. Symptoms are aggravated by ascending stairs, bending, descending stairs, lifting, running and twisting. Symptoms are relieved by lying down, pain meds/drugs, rest and walking. Comments: Ramona presents for a virtual follow up and medication refill. Patient c/o chronic left lower back and neck pain. Pain has been stable since last visit. States that she may need low back surgery again because one of the screws has come out on the left side.Notes increased depression after surgery, but she is improving now.Medication provides 50% pain relief and allows for increased functionality. Reports stopping Dilaudid and switching back to Oxycodone regimen from before surgery. Denies side effects from current medication regimen. No other concerns today. back pain Severity level i s 9. Duration: chronic. The problem is worsening. It occurs persistently. Location of pain is lower back and neck. The client describes the pain as an ache, burning and sharp. Symptoms are aggravated by ascending stairs, bending, descending stairs, lifting, running, twisting, housework and movement. Symptoms are relieved by ice, lying down and pain meds/drugs. Comments: Ramona presents for a virtual follow up and medication refill. Patient c/o chronic back pain. Pain has been worse since last visit. States that pain is worse while sitting or lying down.S/p neck surgery on 08/21/21. Reports a painful recovery. Currently managed on Dilaudid 4/day and tizanidine through the orthopedic surgeon. She hasn't noticed any difference between her previous medication regimen versus now. She has a post-op appointment with the surgeon scheduled for 09/10/21.Medication provides 30% pain relief and allows for increased functionality. Denies side effects from current medication regimen. No other concerns today. Back Pain Duration: chroni c. The problem is stable. It occurs persistently. Location of pain is upper back, middle back, lower back and neck. The client describes the pain as an ache, burning, sharp and tingling. Symptoms are aggravated by ascending stairs, bending, descending stairs, lifting, running, sitting, standing, twisting, walking and prolonged positioning. Symptoms are relieved by heat, ice, lying down, massage, pain meds/drugs, stretching, rest, sitting and changing positions. Comments: Ramona presents for a follow up and medication refill. Patient c/o chronic back pain. Pain has been stable since last visit. Notes ongoing upper back muscle spasms. States she stood up to walk into her appointment today, and the pain was aggravated.Medication provides moderate relief and allows for increased functionality. Denies side effects from current medication regimen. No other concerns today. Comments: Ramona presents via [facility] for virtual follow up and medication refill.Recently f/u with her surgeon, reporting that she is having neck surgery on 08/21/21. Presents with chronic low back pain; c/o worsening radiation into LLE. Additionally, she reports new upper back spasms and is currently experiencing one. When spasms are done pt notes it feels like someone is beating me over my back. Currently managed on Oxycodone 15mg and Oxycontin 20mg. Reports 40% pain relief from the current medication regimen, denies SEs. Back Pain Severity level i s 7. Duration: chronic. The problem is worsening. It occurs persistently. Location of pain is lower back and neck. The client describes the pain as an ache and sharp. Symptoms are aggravated by lifting, twisting, prolonged positioning and movement. Symptoms are relieved by lying down and pain meds/drugs. Headache Back Pain Severity level i s 8. Duration: chronic. The problem is worsening. It occurs persistently. Location of pain is lower back and neck. Pain is radiated to the LLE. The client describes the pain as an ache, burning and sharp. Symptoms are aggravated by bending, twisting, housework and prolonged positioning. Symptoms are relieved by lying down, pain meds/drugs and rest. Comments: Ramona presents via [facility] for virtual follow up and medication refill.States she followed up with her neck surgeon's PA recently; per patient she was told her headaches are not related to her neck pain/surgery (reconstruction of cervical fusion, 01/31/21). She has a f/u with the surgeon on 06/07.Presents with chronic low back pain; c/o worsening radiation into LLE. Reports it feels like someone is shooting me in the butt mostly on the left side. S/p initial Botox injection on 05/14. Reports no significant relief at this point. States she noticed some eyebrow droopiness following the injections, states this has resolved at this point. No neck weakness or increased headaches. Next Botox scheduled on 08/27. Currently managed on Oxycodone 15mg and Oxycontin 20mg. Reports 50% pain relief from the current medication regimen, denies SEs Reports she started taking a Tylenol with the Oxycodone and states this has been helpful, noticed a slight improvement in headaches if she takes the Tylenol more regularly. No other concerns today. Back Pain Severity level i s 8. Duration: chronic. The problem is worsening. It occurs persistently. Location of pain is lower back and neck.The patient describes the pain as an ache, burning and sharp. Symptoms are aggravated by bending, lifting, standing, prolonged positioning and movement. Symptoms are relieved by lying down. Back Pain (comments) Ramona pres ents for a virtual follow up and medications refill. Headache/migraine pain has been most bothersome. Pain has severely limited her activities and cervical range of motion She continues to show interest in Botox injections but aware a new order need to be placed after 3 months of on set.Reports current medication regimen provides 50+% pain relief and allows for increased functionality. Denies side effects from current medication regimen.No other concerns today. Back Pain (comments) Ramona is h ere for follow up and medications refill. Since last , met with neck surgeon to discuss new issue of ongoing severe headaches/migraines since completion of surgery. She completed CT scan and will be meeting with him again next , 04/12/21. Her surgeon has a feeling they may need to go back and correct something things within neck.Reports current medication regimen provides 40+% pain relief and allows for increased functionality. She notes she had to go without Oxycontin for 5 days as there were issues with insurance approval. During this period she notes feeling ill as solely Oxycodone wasn't enough.No other concerns today. Back Pain Severity level i s 8. Duration: chronic. The problem is worsening. It occurs persistently. Location of pain is lower back and neck.The patient describes the pain as burning and sharp. Symptoms are aggravated by bending, lifting, running, twisting, prolonged positioning and movement. Symptoms are relieved by lying down, pain meds/drugs and rest. Back Pain Severity level i s 7. Duration: chronic. The problem is worsening. It occurs persistently. Location of pain is lower back and neck.The patient describes the pain as an ache, burning and sharp. Symptoms are aggravated by ascending stairs, descending stairs, lifting, running, standing, walking, prolonged positioning, housework and movement. Symptoms are relieved by lying down, pain meds/drugs and rest. Back Pain (comments) Ramona ents for a virtual follow up and medications refill. Primary c/o today is worsening daily headache/migraines, on set 2 weeks following cervical fusion 01/17/21. PA recommended PO steroid and PT though she wants to follow up with surgeon before pursuing proposed plan. Has appointment scheduled with surgeon.Lower back pain continues to be more bothersome this month. Was planning on addressing ongoing increased pain with surgeon as well.Reports current medication regimen provides 40+% pain relief and allows for increased functionality. Denies side effects from current medication regimen.Of note, is fully vaccinated and has received booster. No other concerns today. Back Pain (comments) Ramona cochrans for a virtual follow up and medications refill. Lower back and neck pain continues to be more bothersome this month. Currently healing from recent cervical fusion rebuild surgery that was completed on 01/17/21. Has had some difficulty swallowing as she has increased pressure feeling in throat.Reports current medication regimen provides 50+% pain relief and allows for increased functionality. Denies side effects from current medication regimen. Requesting to resume Dilaudid for post-procedural pain.No other concerns today. Back Pain Severity level i s 8. Duration: chronic. The problem is worsening. It occurs persistently. Location of pain is lower back and neck.The patient describes the pain as an ache, burning and sharp. Symptoms are aggravated by bending, lifting, prolonged positioning and housework. Symptoms are relieved by pain meds/drugs. Back Pain Severity level i s 8. Duration: chronic. The problem is worsening. It occurs persistently. Location of pain is lower back and neck.The patient describes the pain as an ache, burning and sharp. Symptoms are aggravated by bending, lifting, twisting, movement and prolonged positioning. Symptoms are relieved by lying down, pain meds/drugs, rest and changing positions. Back Pain (comments) Ramona cochrans for a virtual follow up and medications refill. Lower back pain, R>L, continues to be increased this past month. Since the last OV, she has been experiencing worsening neck pain. When she followed-up with her surgeon recently, she reports that her cervical fusion is collapsing. Reports she will need a cervical fusion rebuild for the part that has collapsed. Reports current medication regimen provides 40% pain relief and allows for increased functionality. Denies side effects from current medication regimen. Inquires about post-op medication management for the upcoming cervical sx (outpatient) on 01/17/21. No other concerns today. Back Pain (comments) Ramona pres ents for a virtual follow up and medications refill. Lower back pain, R>L, continues to be increased this last month. Updated CT scan since last OV and will meeting with spine clinic next .Reports current medication regimen provides 40+% pain relief and allows for increased functionality. Denies side effects from current medication regimen. Is out of medications, last took Oxycodone this morning. Plans to mail consent form for [place] medical [place] program to [facility].No other concerns today. Back Pain Severity level i s 8. Duration: chronic. The problem is worsening. It occurs persistently. Location of pain is lower back and right hip. Pain is radiated to the LLE.The patient describes the pain as an ache, burning and sharp. Symptoms are aggravated by ascending stairs, bending, descending stairs, lifting, sitting, standing, twisting, prolonged positioning and housework. Symptoms are relieved by lying down, pain meds/drugs, rest and changing positions. Back Pain Severity level i s 8. Duration: chronic. The problem is stable. It occurs persistently. Location of pain is lower back and right hip.The patient describes the pain as an ache, burning and sharp. Symptoms are aggravated by ascending stairs, bending, descending stairs, lifting, twisting, prolonged positioning and movement. Symptoms are relieved by lying down, pain meds/drugs and rest. Back Pain (comments) Ramona is h ere for follow up and medications refill. Reports current medication regimen provides 30+% pain relief and allows for increased functionality. Denies side effects from current medication regimen. Pain is worse with significant spasms. States surgeon recommended hospitalization for pain, but fel too guilty taking up a bed for pain reasons. No other concerns today. Back Pain (comments) Patient is here for a virtual follow up and medications refill. Reports current medication regimen provides 40% pain relief and allows for increased functionality. Denies side effects from current medication regimen. States that the oxycodone only provides about an 1.5 hrs of relief. She does not express interest in switching to a different short acting medication.Increased right sided lower back pain continues to persist this month. She underwent a fusion about a year ago. She had and additional surgery on 06/27/20. States that the surgeon was unable to get the screw removed and instead shaved it down. She had a CAT scan and will be following up with [facility] in 2 weeks to review the results. She tries to stay active by walking. No other concerns today. Back Pain Severity level i s 8. Duration: chronic. The problem is worsening. It occurs persistently. Location of pain is lower back and left leg.The patient describes the pain as an ache, burning and sharp. Symptoms are aggravated by ascending stairs, bending, descending stairs, lifting, running, twisting, prolonged positioning, housework and movement. Symptoms are relieved by lying down, pain meds/drugs, rest and changing positions. Back Pain (comments) Patient is here for follow up and medications refill. Reports current medication regimen provides 40% pain relief and allows for increased functionality. Denies side effects from current medication regimen. Increased right sided lower back pain continues to persist this month. Received Celebrex and Soma from her surgeon's PA, finding benefit with Soma and takes occasionally. Stopped celebrex due to ineffectiveness. Has been following up with spine clinic next week, hoping to receive a better answer for this ongoing pain. Will be having a MRI next month in order to hopefully figure out why the pain is continuing. Nerve damage causing foot symptoms, unable to go barefoot as it will cause severe pain at night. Difficult to find shoes that fit properly. Developed sudden edema in LE and gained 10 pounds in a week, took diuretic for 2 days and has since resolved. No other concerns today. Back Pain Severity level i s 7. Duration: chronic. Location of pain is lower back and legs.The patient describes the pain as an ache, burning and sharp. Symptoms are aggravated by ascending stairs, bending, descending stairs, lifting, twisting, prolonged positioning and housework. Symptoms are relieved by lying down, pain meds/drugs, rest, sitting and changing positions. Back Pain Severity level i s 8. Duration: chronic. The problem is worsening. It occurs persistently. Location of pain is lower back and right hip.The patient describes the pain as an ache, burning and sharp. Symptoms are aggravated by ascending stairs, bending, descending stairs, lifting, running, twisting, prolonged positioning and housework. Symptoms are relieved by lying down, pain meds/drugs, rest and changing positions. Back Pain (comments) Patient is here for follow up and medications refill. Reports current medication regimen provides 40% pain relief and allows for increased functionality. Denies side effects from current medication regimen. Increased right sided lower back pain continues to persist this month. Received Celebrex and Soma from her surgeon's PA, finding benefit with Soma. Will be following up with spine clinic next week, hoping to receive a better answer for this ongoing pain.No other concerns today. Back Pain (comments) Patient is here for follow up and medications refill. Reports current medication regimen provides 40% pain relief and allows for increased functionality. Denies side effects from current medication regimen. Patient's pain is persistent and chronic.Right lower back and right hip pain continues to be worse over the past month. Had surgery to fix loose screw on 06/27. They were not able to remove the screw, so it shaved down. Denies any noticeable benefit so far. Also reports the presence of post-op pain long after the surgery. Expresses frustrations with [facility] not providing her the proper doses of pain medications needed to function while she was resting. Will be having her follow up on 07/11.Was informed by her PCP that she is anemic during her pre-op. Plans to get tested in 3 weeks for further assessment.No further questions or concerns. Back Pain Severity level i s 8. Duration: chronic. The problem is worsening. It occurs persistently. Location of pain is lower back. Pain is radiated to the left calf, left foot and left thigh.The patient describes the pain as an ache, burning and sharp. Symptoms are aggravated by ascending stairs, bending, descending stairs, lifting, running, twisting, housework and prolonged positioning. Symptoms are relieved by lying down, pain meds/drugs, rest and changing positions. Back Pain (comments) Patient is here for follow up and medications refill. Reports current medication regimen provides 30% pain relief and allows for increased functionality. Denies side effects from current medication regimen. Patient's pain is persistent and chronic.Right lower back and right hip pain continues to be worse over the past month. Surgery to fix loose screw has been postponed to 06/27 d/t home stressors. Notes she still has leftover Dilaudid (quantity #[id number]) that she plans to utilize for s/p pain. She does not anticipate she will need this refilled.No further questions or concerns. Back Pain Severity level i s 8. Duration: chronic. The problem is worsening. It occurs persistently. The patient describes the pain as an ache, burning and sharp. Symptoms are aggravated by ascending stairs, bending, descending stairs, lifting, standing, twisting, housework, movement and prolonged positioning. Symptoms are relieved by lying down, pain meds/drugs and rest. Back Pain Severity level i s 8. Duration: chronic. The problem is worsening. It occurs persistently. Location of pain is lower back and right hip.The patient describes the pain as burning and sharp. Symptoms are aggravated by ascending stairs, bending, descending stairs, lifting, running, twisting and prolonged positioning. Symptoms are relieved by lying down, pain meds/drugs, rest and changing positions. Back Pain (comments) Patient is here for follow up and medications refill. Reports current medication regimen provides 30% pain relief and allows for increased functionality. Denies side effects from current medication regimen. Patient's pain is persistent and chronic.Right lower back and right hip continues to be more bothersome today. Notes that she will be having another surgery on 05/23, surgeon believes that there is a loose screw that is causing her this ongoing increased pain. Screw is going to be removed. States that she still has Dilaudid on hand from previous fusion surgery in which she will be utilizing again for post-procedural pain management.No other concerns today. Back Pain Severity level i s 8. Duration: chronic. The problem is worsening. It occurs persistently. Location of pain is lower back and right hip.The patient describes the pain as burning and sharp. Symptoms are relieved by lying down, pain meds/drugs and rest. Back Pain (comments) Patient is here for follow up and medications refill. Reports current medication regimen provides 40% pain relief and allows for increased functionality. Denies side effects from current medication regimen. Patient's pain is persistent and chronic.Lower back and right hip pain continues to be more bothersome this month. Would like to go over results of lumbar MRI. States that she is just wondering when this pain is going to go away, would like an answer. Next time she sees her orthopedic surgeon it will be 6 months post-surgery.No other concerns today. Back Pain Severity level i s 7. Duration: chronic. The problem is stable. It occurs persistently. Location of pain is lower back and bilateral hips.The patient describes the pain as burning and sharp. Symptoms are aggravated by bending, lifting, sitting, standing and prolonged positioning. Symptoms are relieved by lying down, pain meds/drugs, rest and changing positions. Back Pain (comments) Patient is here for follow up and medications refill. Reports current medication regimen provides 50% pain relief and allows for increased functionality. Denies side effects from current medication regimen. Patient's pain is persistent and chronic.Lower back and BL hip pain continues to be bothersome this month. Would like to update lumbar MRI since BL hips have more bothersome and to make sure nothing has changes within low back. Recent increase to Oxycodone dosage was beneficial though not interested in staying at dosage fpc.No other concerns today. Back Pain (comments) Patient is here for follow up and medications refill. Reports current medication regimen provides 50% pain relief and allows for increased functionality. Patient's pain is persistent and chronic.Lower back continues to be bothersome this month. Plans to follow up with back surgeon for further imaging when able, frustrated at the moment since she hasn't gotten an definitive answer about the new right sided low back pain she developed after surgery.Inquires about possibly decreasing Dilaudid dosage and increase Oxycodone, notes that Dilaudid makes her very sleepy. No other concerns today. Back Pain Severity level i s 8. Duration: chronic. The problem is worsening. It occurs persistently. Location of pain is lower back.The patient describes the pain as burning. Symptoms are aggravated by ascending stairs, bending, descending stairs, lifting, running, standing, twisting and prolonged positioning. Symptoms are relieved by lying down, pain meds/drugs, rest and changing positions. Back Pain (comments) Patient is here for follow up and medications refill. Reports current medication regimen provides 20% pain relief and allows for increased functionality. Denies side effects from current medication regimen. Patient's pain is persistent and chronic.Back pain is worse upon today's visit d/t recent back surgery on 11/30. Notes that she her surgery consisted of a lumbar fusion, adjusting of hardware, and removal of SCS. Experiencing new pain in lower R back that wrap around into R hip then radiates into R leg, will be following up with surgeon this week.Received Dilaudid 4mg 8x/day to help manage post-procedural pain, only provided her with limited benefit. Current regimen of Oxycodone and Oxycontin is only providing her relief for a short period of time.No other concerns today. Back Pain Severity level i s 9. Duration: chronic. The problem is worsening. It occurs persistently. Location of pain is lower back.The patient describes the pain as an ache, burning and sharp. Symptoms are aggravated by ascending stairs, bending, descending stairs, lifting, running, sitting, standing, twisting, walking and night pain. Symptoms are relieved by pain meds/drugs. Back Pain (comments) Patient is here for follow up. Reports current medication regimen provides 50% pain relief and allows for increased functionality. Denies side effects from current medication regimen. Patient's pain is persistent and chronic.Low back pain continues to be bothersome this month. Has back surgery scheduled for 11/30, since previous less invasive procedure failed. Not sure what she will receive for post-procedural pain medication. Worried that if she refills her usual pain medication today, insurance will not be cover additional post-procedural pain medication.No other concerns today. Back Pain Severity level i s 7. Duration: chronic. The problem is worsening. It occurs persistently. Location of pain is lower back and right knee.The patient describes the pain as an ache, burning and sharp. Symptoms are aggravated by ascending stairs, bending, descending stairs, lifting, standing, twisting and prolonged positioning. Symptoms are relieved by lying down, pain meds/drugs, rest and changing positions. Back Pain Severity level i s 7. Duration: chronic. The problem is worsening. It occurs persistently. Location of pain is lower back.The patient describes the pain as burning and sharp. Symptoms are aggravated by ascending stairs, bending, descending stairs, lifting, sitting, twisting and prolonged positioning. Symptoms are relieved by lying down, pain meds/drugs, rest and changing positions. Back Pain (comments) Patient is here for follow up and medications refill. Reports current medication regimen provides 40% pain relief and allows for increased functionality. Denies side effects from current medication regimen. Patient's pain is persistent and chronic. Low back pain continues to be bothersome today.Received less invasive back surgery on 09/30. Reports that procedure failed and she will need further surgery to extend existing fusion upward. Was taking Dilaudid 4mg to help manage pain until next surgery, though thinks Oxycodone will be more sufficient with pain relief, noticed more drowsiness while taking Dilaudid. Would like to hold off on surgery until after the hols, following up with back surgeon this Friday.No other concerns today. Back Pain Duration: chroni c. The problem is worsening. It occurs persistently. Location of pain is lower back.The patient describes the pain as an ache and sharp. Symptoms are aggravated by bending, lifting, twisting and housework. Symptoms are relieved by lying down, pain meds/drugs and rest. Back Pain (comments) Patient is here for follow up and medications refill. Reports current medication regimen provides 50% pain relief and allows for increased functionality. Denies side effects from current medication regimen. Patient's pain is persistent and chronic. Low back pain continues to be worse this month. Notes that the pain has gone to the L side now too along with more nerve pain down BL legs. Noticing more weakness and fatigue overall. Okay with keeping current regimen the same until she can reevaluate after surgery.Spine surgery is scheduled for 09/30.No other concerns today. Back Pain Severity level i s 7. Duration: chronic. The problem is worsening. It occurs persistently. Location of pain is lower back.The patient describes the pain as an ache and sharp. Symptoms are aggravated by bending, lifting, twisting and housework. Symptoms are relieved by pain meds/drugs and rest. Back Pain (comments) Patient is here for follow up and medications refill. Reports current medication regimen provides 50% pain relief and allows for increased functionality. Denies side effects from current medication regimen. Patient's pain is persistent and chronic. Lower back pain is worse this month, notes of nerve pain radiating up to neck. New neck stiffness and headaches with pain. No longer taking MiraLax, as Senna is more fast acting and beneficial.Has procedure scheduled with back surgeon on 09/30.No other concerns today. Back Pain Severity level i s 7. Duration: chronic. The problem is worsening. It occurs persistently. Location of pain is lower back.The patient describes the pain as an ache, burning and sharp. Symptoms are aggravated by bending, lifting and housework. Symptoms are relieved by changing positions. Back Pain (comments) Patient is here for follow up and medications refill. Reports current medication regimen provides 40% pain relief and allows for increased functionality. Denies side effects from current medication regimen. Patient's pain is persistent and chronic. Okay with previous decrease in Oxycontin and would like to stick with regimen for another month to limit opioid dependency. Having some increased pain in back this month, but notes it feels better when she crouches down. Surgery is still postponed due to COVID-19.No other concerns today. Back Pain Severity level i s 7. Duration: chronic. The problem is worsening. It occurs persistently. Location of pain is lower back and R knee.The patient describes the pain as burning and sharp. Symptoms are aggravated by bending, lifting, twisting and prolonged positioning. Symptoms are relieved by lying down, pain meds/drugs, rest and changing positions. Back Pain (comments) Patient is here for follow up and medications refill. Reports current medication regimen provides 50% pain relief and allows for increased functionality. Denies side effects from current medication regimen. Patient's pain is persistent and chronic. She is interested in decreasing Oxycontin 20mg 3x/day to 20mg 2x/day and 10mg 1x/day, although her pain continues to be increased d/t delay in surgery. She is worried about becoming too reliant on her medication and would like to trial this reduced dose. Has been keeping in touch with her surgeon during the delay.No other concerns today. Back Pain Severity level i s 8. Duration: chronic. The problem is worsening. It occurs persistently. Location of pain is lower back. Pain is radiated to the L knee.The patient describes the pain as burning and sharp. Symptoms are aggravated by ascending stairs, bending, descending stairs, lifting, twisting and housework. Symptoms are relieved by changing positions. Back Pain (comments) Patient is here for follow up and medications refill. Reports current medication regimen provides 50% pain relief and allows for increased functionality. Denies side effects from current medication regimen. Patient's pain is persistent and chronic. Continues to experience low back pain wrapping around her L side which is making daily life more difficult for her. She was contacted by her surgeon who notified her that her surgery is still delayed d/t COVID-19. She is tempted to make an increase in her medications but would like to continue with her current regimen for now so she does not become too tolerant. Not interested in a new muscle relaxer as they have made her RLS worse in the past.No other concerns today. Back Pain Severity level i s 8. The problem is worsening. It occurs persistently. Location of pain is lower back.The patient describes the pain as burning and sharp. Symptoms are aggravated by ascending stairs, bending, descending stairs, lifting, standing and twisting. Symptoms are relieved by lying down, pain meds/drugs and rest. Back Pain (comments) Patient is here for follow up and medications refill. Reports current medication regimen provides pain relief and allows for increased functionality. Denies side effects from current medication regimen. Patient's pain is persistent and chronic. Oxycodone provides relief for a small amount of time and she is not able to be as active as she used to be in the past. Does not request any changes in her medications today. No other concerns today. Back Pain (comments) Patient is here for follow up and medications refill. Reports current medication regimen provides 50% pain relief and allows for increased functionality. Denies side effects from current medication regimen. Patient's pain is persistent and chronic. Note that she has been working with her surgeon, who is considering extending her fusion upward. She is considering a less invasive method first, which is scheduled for May 13. No other concerns today. Back Pain Severity level i s 8. Duration: chronic. The problem is worsening. It occurs persistently. Location of pain is lower back.The patient describes the pain as burning and sharp. Symptoms are aggravated by ascending stairs, bending, descending stairs, lifting, twisting and prolonged positioning. Symptoms are relieved by lying down, pain meds/drugs and rest. Back Pain (comments) Patient is here for follow up and medications refill. Reports current medication regimen provides pain relief and allows for increased functionality. Notes constipation symptoms. Patient's pain is persistent and chronic. She had to reschedule her appointment to meet with her back surgeon to /. Notes ongoing BL LE weakness causing her to buckle and lose her footing, more often on her R side. No other concerns today. Back Pain Severity level i s 8. Duration: chronic. The problem is worsening. It occurs persistently. Location of pain is lower back.The patient describes the pain as burning and sharp. Symptoms are aggravated by bending, lifting, standing, twisting and prolonged positioning. Symptoms are relieved by lying down, pain meds/drugs and rest. Back Pain (comments) Patient is here for follow up and medications refill. Reports current medication regimen provides pain relief and allows for increased functionality. Denies side effects from current medication regimen. Patient's pain is persistent and chronic. Notes that she has noticed increased weakness and buckling in her R thigh. She is scheduled to FU with her surgeon on March 01. No other concerns today. Back Pain Severity level i s 4. Duration: chronic. The problem is fluctuating. It occurs persistently. Location of pain is lower back. Pain is radiated to the right thigh.The patient describes the pain as burning and sharp. Symptoms are aggravated by ascending stairs, bending, daily activities, descending stairs and twisting. Symptoms are relieved by lying down, pain meds/drugs and rest. Back Pain (comments) Patient is here for follow up and medications refill. Presents with #5 oxycontin, #7 oxycodone - on track. Reports current medication regimen provides 60% pain relief and allows for increased functionality. Denies side effects from current medication regimen. Patient's pain is persistent and chronic. She recently received a lumbar injection as well as an RFA at her spine clinic, neither of which provided any relief. She will likely be requiring surgery in the future but has not scheduled an appointment yet.No other concerns today. Back Pain Severity level i s 6. Duration: chronic. The problem is worsening. It occurs persistently. Location of pain is lower back.The patient describes the pain as burning and sharp. Symptoms are aggravated by bending, sitting and standing. Symptoms are relieved by pain meds/drugs and rest. Back Pain Severity level i s 6. Duration: chronic. The problem is changing in character. It occurs persistently. Location of pain is lower back.The patient describes the pain as burning and sharp. Symptoms are aggravated by bending, lifting, standing, twisting and prolonged positioning. Symptoms are relieved by pain meds/drugs and rest. Back Pain (comments) Patient is here for follow up and medications refill. Presents with #27 oxycodone, #14 oxycontin - on track. Reports current medication regimen provides 60% pain relief and allows for increased functionality. Denies side effects from current medication regimen. Patient's pain is persistent and chronic. She met with her provider relations specialist who reviewed her recent lumbar MRI and was told that there was a bone spur and bulging disks. She is receiving an injection next Friday there to relieve her pain. Her specialist is also evaluating on any surgical procedures that may help her. She is frustrated that there may be more procedures for her to endure.No other concerns today. Back Pain (comments) Patient is here for follow up and medications refill. Presents with #11 oxycodone, #8 oxycontin - on track. Reports current medication regimen provides pain relief and allows for increased functionality. She has been experiencing uncontrollable diarrhea symptoms. Patient's pain is persistent and chronic. She states that her back pain on her R side is increasing which her medication is not addressing. She would not like an injection as she has had 2 already which gave her side effects. She would rather visit her spine surgeon at her [facility] to evaluate her relief options.No other concerns today. Back Pain Severity level i s 4. Duration: chronic. The problem is worsening. It occurs persistently. Location of pain is middle back and lower back.There is no radiation of pain. The patient describes the pain as an ache, burning and sharp. Symptoms are aggravated by bending, lifting, running, sitting, standing, twisting and prolonged positioning. Symptoms are relieved by lying down, pain meds/drugs, rest and changing positions. Back Pain Severity level i s 5. Duration: chronic. The problem is fluctuating. It occurs intermittently. Location of pain is middle back and lower back.The patient describes the pain as burning and sharp. Symptoms are aggravated by bending, lifting, sitting, twisting and prolonged positioning. Symptoms are relieved by lying down and pain meds/drugs. Back Pain (comments) Ramona is h ere for follow up and medications refill. States her back pain is flaring more often and lasting longer than it use to. The back pain is slowing her down and worse than normal. Would like to wait another month before pursuing updating CT. Presents with #5 OxyContin and #7 Oxycodone - on track. Reports current medication regimen provides 50% pain relief and allows for increased functionality. Denies side effects from current medication regimen.No other concerns today. Back Pain (comments) Ramona is h ere for a followup and medication refill. She presents with #2 Oxycodone and #2 OxyContin-on track. Medications provide 50% relief from pain. She had a flare for about 2 weeks in July, but the pain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 twisting, walking and movement. Symptoms are relieved by pain meds/drugs and recliner. Neck pain low back pain (comments) Patient is here for follow-up and medication refills. Patient has #23 Oxycontin and #30 oxycodone remaining today - on track. Reports about 40% relief from the medication, less effective than previous. Had a cervical CT last week to evaluate her new neck pain and numbness. Will be following up with [facility]. low back pain Severity level i s 7. Duration: chronic. The problem is worsening. It occurs persistently. Location of pain is lower back. Pain is radiated to the right arm.The patient describes the pain as an ache, sharp and tingling. Symptoms are aggravated by daily activities and movement. Symptoms are relieved by pain meds/drugs. low back pain (comments) Patient is here for follow-up and medication refill. Reports shooting pain running down her right arm and tingling sensation up into her right lateral neck. Low back pain has moved across entire lower back instead of just the left side--increased spasms. Valium has helped relieve spams in the past. Patient has #26 OxyContin and #30 oxycodone (3 tabs short) remaining. Medications provide 40-50% pain relief; denies any SE. Continues to watch [employer]. States her SCS is and never was effective. low back pain Severity level i s 7. Duration: chronic. The problem is worsening. It occurs persistently. Location of pain is lower back. Pain is radiated to the left calf, right calf, left foot, right foot, left thigh and right thigh.The patient describes the pain as an ache, sharp and weakness. Symptoms are aggravated by daily activities and movement. Symptoms are relieved by pain meds/drugs, rest and sitting. low back pain (comments) Patient is here for follow-up and medication refill. Patient has #26 oxycodone and #20 OxyContin remaining--on track. Medications provide at least 50% pain relief; denies any SE. 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 SCS does not provide relief. low back pain Severity level i s 5-8. Duration: chronic. The problem is worsening. It occurs persistently. Location of pain is middle back and lower back.The patient describes the pain as sharp. Symptoms are aggravated by prolonged positioning. Symptoms are relieved by pain meds/drugs and changing positions. low back pain (comments) Patient is here for follow-up and medication refill. Patient has #14 OxyContin and #23 oxycodone remaining--on track. Medications provide at least 50% pain relief. OxyContin lasts 6-9 hours. Movantik is not effective. Denies any SE. Foot surgery completed and cast removed on 08/04/2015. C/o pain associated with surgery. Requesting decrease in oxycodone and increase in OxyContin. Reports she will have to have same surgery on right foot. low back pain Severity level i s . Duration: chronic. The problem is worsening. It occurs persistently. Location of pain is lower back.There is no radiation of pain. The patient describes the pain as burning and sharp. Symptoms are aggravated by sitting, standing and prolonged positioning. Symptoms are relieved by pain meds/drugs, sitting and recliner. low back pain (comments) Patient is here for follow-up and medication refills. S/p left foot surgery last week. Was given oxycodone 5mg for postop pain and is done taking these. Back pain has been worse since the surgery. She is in a cast, non-weight bearing and using crutches. Will hopefully be put in a walking boot next week. Patient has #11 Oxycontin and #14 oxycodone remaining today - on track. Reports good relief from the medication. low back pain Severity level i s 8. Duration: chronic. The problem is worsening. It occurs persistently. Location of pain is lower back.The patient describes the pain as burning and sharp. Symptoms are aggravated by sitting, standing and driving. Symptoms are relieved by pain meds/drugs. low back pain (comments) Patient is here for follow-up and medication refills. Patient has #16 oxycodone and #14 Oxycontin remaining today - on track. Reports less effectiveness with the medication, but it continues to allow her to be more active and complete her daily activities. Foot surgery on 07/20/15 with [facility]. She has not started myofascial release as recommended by her spine surgeon as she is focusing on the foot surgery. low back pain Severity level i s 8. Duration: chronic. The problem is worsening. It occurs persistently. The patient describes the pain as an ache, burning and sharp. Symptoms are aggravated by standing, walking and laying down. Symptoms are relieved by pain meds/drugs. low back pain (comments) Ramona is in today for a follow-up and medication refill. She has #26 oxycodone 10mg and #20 OxyContin 20mg remaining, which is on track. She reports that her pain has been worse this past month, particularly when caring for her grandchildren as she has increased her hours. She tried taking 2 tablets of amitriptyline at bedtime, but reports that this medication was not helpful for her pain and made her sleepy.She reports that she needs to have surgery on her foot. She does not have a date set for this surgery. She also reports that she completed a CT at [facility]. It was recommended she complete myofascial release as part of her PT regimen. She has been having difficulties finding a PT location that will accept her insurance. low back pain Severity level i s 7. Duration: chronic. The problem is worsening. It occurs persistently. Location of pain is lower back. Pain is radiated to the left foot.The patient describes the pain as an ache and sharp. Symptoms are aggravated by bending, sitting, standing and stooping. Symptoms are relieved by pain meds/drugs, sitting and recliner. low back pain (comments) Patient is here for follow-up and medication refills. Patient has #17 Oxycontin and #22 oxycodone remaining today - on track. Reports worse pain with caring for her grandchildren more hours during the week. Met with [facility] and fusion looks stable. Has been referred for myofascial release at [facility] in [place]. low back pain Severity level i s 8. Duration: chronic. The problem is fluctuating. It occurs persistently. The patient describes the pain as burning and sharp. Symptoms are aggravated by sitting and standing. Symptoms are relieved by pain meds/drugs. low back pain (comments) Patient presents today for a F/U visit. She reports her low back pain has gotten worse, was was only on her left side,but now experiencing pain on her right side. She thinks because she has been leaning to her right more, may have put more weight on the right. She Her spine surgeon ordered a CT scan which will be done today to further evaluate her condition. Physical Therapy is on hold pending CT result. low back pain Severity level i s 7. Duration: chronic. The problem is fluctuating. It occurs persistently. Location of pain is lower back.The patient describes the pain as burning and sharp. Symptoms are aggravated by bending, stooping and prolonged positioning. Symptoms are relieved by pain meds/drugs, sitting and recliner. low back pain (comments) Patient is here for follow-up and medication refills. Fell off her grandson's scooter last week, landing on her back. Wants to get in to see her surgeon to make sure her hardware is ok. Rescheduled her PT for next month as her insurance is changing. Patient has #14 oxycodone and #11 Oxycontin remaining today - on track. Reports improved function and activity with the medication. low back pain Severity level i s 6. Duration: chronic. The problem is stable. It occurs persistently. Location of pain is lower back.There is no radiation of pain. The patient describes the pain as an ache and sharp. Symptoms are aggravated by sitting, standing, riding in a car and prolonged positioning. Symptoms are relieved by pain meds/drugs, sitting and recliner. low back pain (comments) Patient is here for follow-up and medication refills. Overall pain has been stable. 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 Will be starting PT in [place] on 02/23/15. Patient has #5 Oxycontin and #6 oxycodone remaining today - on track. Reports at least 50% relief from the medication. low back pain (comments) Reports better pain control with the tid Oxycontin. Patient has #1 Oxycontin and #2 oxycodone remaining today and would like this refilled. low back pain Severity level i s 5. Duration: chronic. The problem is fluctuating. It occurs persistently. Location of pain is lower back.There is no radiation of pain. The patient describes the pain as sharp. Symptoms are aggravated by sitting, standing and driving. Symptoms are relieved by pain meds/drugs and sitting in recliner. low back pain Severity level i s 8. Duration: chronic. The problem is worsening. It occurs persistently. Location of pain is lower back.The patient describes the pain as an ache and sharp. Symptoms are aggravated by sitting, standing and riding in a car. Symptoms are relieved by pain meds/drugs and laying in recliner. low back pain (comments) Pain co ntinues to be worse. Reports less relief from her pain medication and does not feel the Oxycontin lasts for 12 hours. She has #15 oxycodone and #10 Oxycontin remaining today - on track. low back pain (comments) Ramona is here today for follow up evaluation and medication refills relating to her low back pain. She was short medication at her last appt. She has #3 OxyContin and #6 oxycodone remaining - on track. Today she reports worse pain d/t muscle spasm since last night, worse with driving long distances in the car. No new injury. low back pain Severity level i s 8. Duration: chronic. The problem is worsening. It occurs intermittently. Location of pain is lower back.There is no radiation of pain. The patient describes the pain as an ache and sharp. Symptoms are aggravated by sitting, standing and prolonged positioning. Symptoms are relieved by pain meds/drugs. low back pain (comments) She has been feeling about the same. She still has her bone stimulator, and may possibly be getting this removed.She is 3.5 days short on Oxycodone today with only #2 tabs remaining. She states that this is because some fell in the toilet this morning while transfering them between pill containers. On track with Oxycontin at #9 tabs.Her current medication regimen has been effectively managing her pain. low back pain Severity level i s 8. Duration: chronic. The problem is fluctuating. It occurs occasionally. Location of pain is lower back.The patient describes the pain as an ache and sharp. Symptoms are aggravated by lying/rest, sitting and standing. Symptoms are relieved by pain meds/drugs and rest. low back pain Severity level i s 4. Duration: chronic. The problem is fluctuating. It occurs intermittently. Location of pain is lower back.There is no radiation of pain. The patient describes the pain as burning and sharp. Symptoms are aggravated by bending, long car rides and prolonged sitting or standing. Symptoms are relieved by pain meds/drugs, rest and recliner. low back pain (comments) Patient has #22 oxycodone and #11 Oxycontin remaining today and would like this refilled. Reports at least 50% relief from the medication. Back Pain (comments) Ramona is h ere today for follow up and medication refills relating to her low back pain. Patient is short on medication and states she grabbed the wrong medication. She recently had a grandchild. Back Pain Severity level i s moderate-severe. Duration: chronic. The problem is fluctuating. It occurs persistently. Location of pain is lower back.The patient describes the pain as burning and sharp. Symptoms are aggravated by sitting, standing and Driving. Symptoms are relieved by pain meds/drugs and sitting. Back Pain Severity level i s mild-moderate. Duration: chronic. The problem is improving. It occurs occasionally. Location of pain is lower back.The patient describes the pain as an ache and sharp. Symptoms are aggravated by sitting and standing. Symptoms are relieved by pain meds/drugs and rest. Back Pain (comments) Ramona is h ere today for follow up and medication refill. On track with medication. She says she is doing very well and she would like to continue as scheduled. She states the Tizanadine relieves her pain when only taking one at a time. She states she is having trouble with constipation due to medications. low back pain Severity level i s moderate. Duration: chronic. The problem is fluctuating. It occurs intermittently. Location of pain is lower back.There is no radiation of pain. The patient describes the pain as sharp. Symptoms are aggravated by daily activities and sitting. Symptoms are relieved by pain meds/drugs and rest. Back Pain Onset: 3 years a go. Severity level is 7. Duration: chronic. Location of pain is lower back. Pain is radiated to the left thigh and right thigh.The patient describes the pain as an ache and stabbing. Symptoms are aggravated by car rides and prolonged positioning. Symptoms are relieved by sitting in chair. Back Pain (comments) Patient was referred by [facility]. Patient has a hx of severe lumbar DDD; she had a L4-S1 fusion in April 2011 and revision in February 2014. She also has a hx of cervical fusion in 2010. Neck pain has resolved, she is here today to inquire about treating her low back pain. Patient has a [employer] SCS, though is not currently using it. She states the leads migrated, and when they were repositioned it caused stimulation in her right arm, and she believes the battery is . She states the SCS was effective during the trial, and she would like to consider repositioning or replacing her current SCS. She also currently has an implanted bone growth stimulator. She is currently prescribed norco 10mg and oxycodone 5mg. She states she takes 5-12 tabs norco/day, and oxycodone for sleep or only when she knows she will not be driving. [place] is effective for only one hour. She is not taking any muscle relaxers. She recently went to the ER for pain and muscle spasms, she was given dilaudid and ativan. She has not engaged in PT or pool therapy recently. She has tried fentanyl 25mcg/hr patches and did not find it effective. Oxycontin has been tolerated in the past, ms contin ER caused drowsiness. She does not want to consider a pain pump at this time. Functional Status Date Functional Assessmen t No Information Instructions Date Instruction Additional Infor mation No Information Assessments Type Assessment Date assessment Postlaminectomy syndrome, not el sewhere classified impression Chronic low back angel luis n following multiple lumbar surgeries. She is fused from L2-S1. Pain generalized to the right lower back and right hip. Most recent surgery was completed on 01/16/22 at [facility].Forwarded history: Patient also previously had collapsed cervical fusion. Surgery completed on 01/17/21 to rebuild fusion; patient reported worsening headaches/migraine 2 weeks following surgery. S/p additional neck surgery on 08/21/21, and she developed stinging and twinging into left arm following assessment Other intervertebral disc degene ration, lumbar region impression Forwarded History: C hronic back pain w/ radicular symptoms into her BL LE. She states her pain is fluctuating today. She is s/p lumbar surgery on 01/16 at [facility], and f/u with [facility] who suggested Lumbar CARLOS.Previously discussed additional treatment options: muscle relaxer, trigger point injections, topical meds, and/or medical cannabis. Patient has previously declined these options; Soma was the only thing that helped previously. Discussed that [facility] does not prescribe Soma, but okay to receive from surgeon if patient desires assessment Pain in right knee impression She continues to hav e worsening knee pain (R>L) that radiates down the anterior leg and terminates above the ankle. Difficulty walking today.S/p BL knee joint injection on 07/25/22 with good relief assessment Pain in left knee assessment Drug induced constipation impression C/o constipation due to recent s urgery assessment long-term (current) use of opiat e analgesic impression The medication sal nues to relieve around 40% of the pain and increases the patient's daily activity level.MME: 202.5mg/day. Most recent UDT, completed 08/06/2022, previously reviewed and consistent with current medication regimen. Patient has been managing medications with no signs of abuse or sedation, and is appropriate to continue with opioid use at this time. Patient is a long time patient with intractable chronic pain, okay to continue current doses The patient has intractable pain due to postlaminectomy syndrome. Limited benefit, relief, or cure has been obtained from reasonable treatment options including PT, LESI, SCS trial, back surgery, and opioid and nonopioid medications. The patient's current medication regimen allows for increased daily functioning and an improved quality of life. Per [place] [address] [address].125 INTRACTABLE PAIN, subd 2, the patient has remained stable on their current doses of opioid medications, is complying with the signed medication agreement, is following our treatment plan, and displays no evidence of opioid diversion or misuse; therefore, an opioid taper is not appropriate at this time. However, patient's goal is to reduce opioids as able. Reviewed the risks of continued high dose opioid medications and a patient has an RX of Narcan available. impression She continues to hav e worsening knee pain (R>L) that radiates down the anterior leg and terminates above the ankle. Difficulty walking today.S/p BL knee joint injection on 07/25/22 with good relief Mental Status Date Cognitive Assessment Orientation - Marshall ed to time, place, person, situation.Normal Orientation Patient Care Teams Name Effective Dates (start - stop) Status Members No Information
== END 2022-10-05 16:27 | disposition home or self-care (01) ==
LOC: AMB 10-07 02:07
PROVIDERS: PCP Family Medicine; Visit Provider Emergency Medicine
DX: R55 Syncope and collapse (principal)
CPT/HCPCS: A0425; A0427

== ENCOUNTER 2022-10-05 16:55 | Emergency (ER) | payer MEDICARE, OTHER, SELFPAY ==
[2022-10-05 17:00] VITALS: BP 112/73; PULSE 88; RESP 16; TEMP 36.6; O2SAT 95; BMI 23.6
--- NOTE | 2022-10-05 17:27 | CRLHL7_ITS ---
For Patients: As a result of the Cures Act, medical imaging exams and procedure reports are released immediately into your electronic medical record. You may view this report before your referring provider. If you have questions, please contact your health care provider. Indication: Pain Comparison: None available. Technique: Standing AP, lateral, and sunrise views of the right knee were obtained Findings: There is no displaced fracture or dislocation. There is mild medial compartmental joint space narrowing with minimal tibial spine spurring. There is mild prepatellar soft tissue swelling. Impression: Mild prepatellar soft tissue swelling without evidence of displaced fracture. Dictated by Saurabh Almaguer MD @ 10/05/2022 6:17:24 PM (Electronically Signed)
[2022-10-05 17:35] LABS: Basophils Absolute Auto 0.03 K/uL (0.00-0.30); Basophils Percent Auto 0.4 % (0.0-3.0); Eosinophils Absolute Auto 0.33 K/uL (0.00-0.50); Eosinophils Percent Auto 4.9 % (0.0-7.0); Hemoglobin* 10.6 gm/dL (12.0-16.0); Immature Granulocytes Abs Auto 0.01 K/uL (0.00-0.30); Immature Granulocytes Pct Auto 0.1 %; Lymphocytes Absolute Auto 2.09 K/uL (0.90-2.90); Lymphocytes Percent Auto 31.2 % (20-44); Mean Corpuscular HGB Conc 30 gm/dL (32-36); Mean Corpuscular Hemoglobin 25 pg (26-34); Mean Corpuscular Volume 82 fL (80-100); Monocytes Percent Auto 6.3 % (0.0-11.0); Neutrophils Absolute Auto 3.81 K/uL (1.7-7.0); Neutrophils Percent Auto 57.1 % (42.0-72.0); Platelet Count* 226 K/uL (140-440); RDW Coefficient of Variation % 16.6 % (11.5-15.5); Red Blood Count 4.25 m/uL (4.00-5.20); White Blood Count* 6.69 K/uL (4.50-11.00)
[2022-10-05 17:37] LABS: Slide Review Reflex No
[2022-10-05] MEDS: MORPHINE 4 MG/ML INJ IVP (17:37)
[2022-10-05] MEDS: KETOROLAC 15 MG/ML inj IVP (17:37)
[2022-10-05 17:50] LABS: Chloride* 106 mmol/L (96-114); Potassium* 3.7 mmol/L (3.6-5.1); Sodium* 140 mmol/L (135-149)
[2022-10-05 17:53] LABS: Anion Gap 12 mEq/L (7-15); Blood Urea Nitrogen* 12 mg/dL (7-30); Calcium* 8.8 mg/dL (8.4-10.6); Carbon Dioxide* 22 mmol/L (20-32); Creatinine* 0.8 mg/dL (0.5-1.5); Est. Creatinine Clearance* 79.13; Estimated Glomerular Filt Rate 85 ml/min; Glucose* 142 mg/dL (60-115)
[2022-10-05 18:06] LABS: Troponin I* < 0.01 ng/mL (0.01-0.04)
--- NOTE | 2022-10-05 18:10 | ED.GENADULT ---
HPI - General Adult General Date Seen: 10/05/22 Chief complaint: Unspecified Complaint, Adult Stated complaint: Syncope Time Seen by Provider: 10/05/22 16:57 Source: patient Mode of arrival: EMS Limitations: no limitations History of Present Illness HPI narrative: Patient is a 61-year-old female with chronic back pain with the current pain contract, diabetes presenting to the emergency department for possible syncope episode in right knee pain. She states around 15:00 she went to [employer] and next thing she knew it was 16:15 in EMS was waking her up in her car. She does not know if she passed out or just fell asleep. States she was feeling tired when she got [employer] cells ulcer will happen. She was sitting in her car when all this occurred. She is able to walk to the EMS cot but she states she was initially feeling little dizzy that has since resolved. She says her main complaint now is right knee pain. She has been having right knee pain for 3 weeks and is scheduled to see orthopedics in 2 days. She is taking her home pain medication which she is on for her chronic back pain issues not think it is helping. She says the pain in her right knee severe and it is painful to bend her knee. Denies any numbness or weakness to the knee. Denies any previous injuries to the knee. She states she has never passed out before. Denies headache, chest pain, shortness of breath, abdominal pain, diarrhea, constipation, fevers, chills. She does admit to abdominal bloating with says that has been going on since her back surgery in January of 2022. Related Data Home Medications Medication Instructions Recorded Confirmed bupropion HCl 300 mg 24 hr tablet, 300 mg PO DAILY 08/17/21 10/05/22 extended release lamotrigine 200 mg tablet mg PO BID 08/17/21 06/06/22 metformin 1,000 mg tablet 1,000 mg PO BIDWMEAL 08/17/21 10/05/22 prazosin 2 mg capsule mg PO DAILY 08/17/21 06/06/22 tizanidine 4 mg tablet 2 - 4 mg PO PRN 08/17/21 06/06/22 topiramate 25 mg tablet mg PO BID 08/17/21 06/06/22 trazodone 50 mg tablet 50 mg PO .Bedtime 08/17/21 10/05/22 duloxetine 60 mg capsule,delayed 120 mg PO QDAY 11/20/21 10/05/22 release (Cymbalta) lorazepam 1 mg tablet (Ativan) 1 mg PO TID PRN 11/20/21 10/05/22 escitalopram oxalate 5 mg tablet 5 mg PO .Bedtime 01/15/22 10/05/22 oxycodone 15 mg tablet 10 mg PO QID PRN 06/06/22 06/06/22 oxycodone 10 mg tablet mg PO 10/05/22 oxycodone 20 mg tablet,crush 20 mg PO Q8H chronic pain 10/05/22 10/05/22 resistant,extended release 12 hr Previous Rx's Medication Instructions Recorded pramipexole 0.5 mg tablet 0.5 mg PO DAILY #90 tabs 11/04/21 dicyclomine 20 mg tablet See Rx Instructions .Route 12/23/21 .COMPLEX #270 tabs omeprazole 40 mg capsule,delayed 40 mg PO DAILY #90 caps 01/01/22 release blood-glucose meter (Accu-Chek #1 ea 01/04/22 Kaylee Plus Meter) lancets (Accu-Chek Softclix #100 ea 01/04/22 Lancets) simvastatin 20 mg tablet See Rx Instructions .Route 01/19/22 .COMPLEX #90 tabs furosemide 20 mg tablet See Rx Instructions .Route 02/08/22 .COMPLEX #90 tabs blood sugar diagnostic (Accu-Chek #100 ea 06/06/22 Kaylee Plus test strips) blood sugar diagnostic (Accu-Chek #100 ea 06/06/22 Kaylee Plus test strips) lancets (Accu-Chek Softclix #200 ea 06/06/22 Lancets) bisacodyl 10 mg rectal suppository 10 mg MS ONCE 7 days #7 ea 07/01/22 (Dulcolax (bisacodyl)) Allergies Allergy/AdvReac Type Severity Reaction Status Date / Time hydroxyzine Allergy Severe involuntary Verified 10/05/22 17:07 muscle movement prochlorperazine Allergy Severe Convulsions Verified 10/05/22 17:07 atorvastatin Allergy Intermediate Skin Verified 10/05/22 17:07 irritation around eyes methocarbamol Allergy Mild Causes Verified 10/05/22 17:07 problems with restless legs venlafaxine Allergy Mild Rash, Verified 10/05/22 17:07 restless legs baclofen Allergy Unknown Verified 10/05/22 17:07 cyclobenzaprine AdvReac Mild Problem Verified 10/05/22 17:07 with RLS diphenhydramine AdvReac Mild Effects RLS Verified 10/05/22 17:07 Review of Systems Status of ROS: Reports: 10 or more systems reviewed and unremarkable except as noted in History and below PFSH PFSH Medical History 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) ?M50.20 - Other cervical disc displacement, unspecified cervical region (ICD-10) Surgical History S/P laparoscopic procedure ?Z98.890 - Other specified postprocedural states (ICD-10) S/P insertion of spinal cord stimulator ?Z96.89 - Presence of other specified functional implants (ICD-10) S/P lumbar fusion ?Z98.1 - Arthrodesis status (ICD-10) S/P cervical spinal fusion ?Z98.1 - Arthrodesis status (ICD-10) S/P bunionectomy ?Z98.890 - Other specified postprocedural states (ICD-10) History of tonsillectomy and adenoidectomy (01/17/10) ?Z90.89 - Acquired absence of other organs (ICD-10) History of laparoscopic appendectomy (05/14/12) ?Z90.49 - Acquired absence of other specified parts of digestive tract (ICD-10) History of cholecystectomy (01/17/10) ?Z90.49 - Acquired absence of other specified parts of digestive tract (ICD-10) History of appendectomy (06/30/12) ?Z90.49 - Acquired absence of other specified parts of digestive tract (ICD-10) Family History Mother Osteoporosis Social History Narrative: . 3 children. No alcohol. Non-smoker. No illicit drug use. Smoking Status: Current every day smoker How often do you have a drink containing alcohol: never AUDIT-C Alcohol total score: 0 Non-prescribed substance use: denies use Little interest or pleasure in doing things: not at all Feeling down, depressed, or hopeless: not at all Exam Narrative: Exam Narrative: Const: Well-nourished, Well-developed, in mild distress Eyes: PERRL, no conjunctival injection, and symmetrical lids ENMT: Atraumatic external nose and ears. Moist mucous membranes. Neck: Symmetric, trachea midline, No thyromegaly. CVS: RRR, No murmurs or gallops. Peripheral pulses 2+ and equal in all extremities RESP: Unlabored respiratory effort. Clear to auscultation bilaterally. GI: Nontender, distended, No rebound or guarding. MSK: Tenderness to palpation right knee decreased range of motion both active and passive secondary to pain. Skin: Warm, Dry. No rashes or lesions. Neuro: Normal Muscle tone, No focal neurological deficits. Psych: Awake, Alert, & Oriented x3. Appropriate mood and affect. Const: Vital Signs, click to edit/add: Vital Signs - 24 hr 10/05/22 17:00 Temperature 98 F Pulse Rate [Left P ulse Oximeter] 88 Respiratory Rate 16 Blood Pressure [Ri ght Upper Arm] 112/73 Pulse Oximetry 95 Oxygen Delivery Me thod Room Air Course Vital Signs Vital signs: Initial Vital Signs Temperature 98 F 10/05/22 17:00 Temperature Source Temporal Artery Scan 10/05/22 17:00 Pulse Rate 88 10/05/22 17:00 Respiratory Rate 16 10/05/22 17:00 Blood Pressure 112/73 10/05/22 17:00 Blood Pressure Mean 86 10/05/22 17:00 Blood Pressure Position Supine 10/05/22 17:00 Pulse Oximetry 95 10/05/22 17:00 Oxygen Delivery Method Room Air 10/05/22 17:00 Vital Signs Temperature 98 F 10/05/22 17:00 Pulse Rate 88 10/05/22 17:00 Respiratory Rate 16 10/05/22 17:00 Blood Pressure 112/73 10/05/22 17:00 Pulse Oximetry 95 10/05/22 17:00 Oxygen Delivery Method Room Air 10/05/22 17:00 Temperature 98 F 10/05/22 17:00 Pulse Rate 88 10/05/22 17:00 Respiratory Rate 16 10/05/22 17:00 Blood Pressure 112/73 10/05/22 17:00 Pulse Oximetry 95 10/05/22 17:00 Oxygen Delivery Method Room Air 10/05/22 17:00 Medical Decision Making MDM Narrative Medical decision making narrative: Patient is a 61-year-old female presented emergency department for syncope and right knee pain. Patient was found by EMS in a car on hour after she parked at the [employer] she states. She does not know she passed out or just fell asleep when she woke up she felt groggy no dizzy. The symptoms have since resolved. She has never had this happen to her before. When patient woke up she noted worsening right knee pain. She has been having issues within the right knee for 3 weeks now and is scheduled to see orthopedics in the next few days. Denies any injuries to the knee. Her leg is neurovascularly intact at this time. We did x-ray of the knee to look for any deformities or abnormalities. Will do a cardiac workup for possible syncope. This time of the was more likely she does fell asleep in the car as he is unlikely syncopized for over an hour. CBC, BMP, magnesium, troponin were all ordered. Also ordered an EKG. EKG shows no concerning abnormalities. Lab work all returned showing no concerning abnormalities. Knee x-ray show some prepatellar soft tissue swelling but no other acute abnormalities. She was initially given Toradol and morphine for pain. She says this was not help pain and Dilaudid was given. Lab Data Labs: Lab Results 10/05/22 Range/Units 15:30 WBC 6.69 (4.50-11.00) K/uL RBC 4.25 (4.00-5.20) m/uL Hgb 10.6 L (12.0-16.0) gm/dL Hct 35.0 (33.0-51.0) % MCV 82 (80-100) fL MCH 25 L (26-34) pg MCHC 30 L (32-36) gm/dL RDW Coeff of Monserrat 16.6 H (11.5-15.5) % Plt Count 226 (140-440) K/uL Neut % (Auto) 57.1 (42.0-72.0) % Lymph % (Auto) 31.2 (20-44) % Heard % (Auto) 6.3 (0.0-11.0) % Eos % (Auto) 4.9 (0.0-7.0) % Baso % (Auto) 0.4 (0.0-3.0) % Neut # (Auto) 3.81 (1.7-7.0) K/uL Lymph # (Auto) 2.09 (0.90-2.90) K/uL Heard # (Auto) 0.40 (0.00-0.90) K/UL Eos # (Auto) 0.33 (0.00-0.50) K/uL Baso # (Auto) 0.03 (0.00-0.30) K/uL Abs Immat Gran (auto) 0.01 (0.00-0.30) K/uL Imm/Tot Granulo (auto) 0.1 % Sodium 140 (135-149) mmol/L Potassium 3.7 (3.6-5.1) mmol/L Chloride 106 (96-114) mmol/L Carbon Dioxide 22 (20-32) mmol/L Anion Gap 12 (7-15) mEq/L BUN 12 (7-30) mg/dL Creatinine 0.8 (0.5-1.5) mg/dL Estimated Creat Clear 79.13 Estimated GFR 85 ml/min Glucose 142 H (60-115) mg/dL Calcium 8.8 (8.4-10.6) mg/dL Magnesium 2.0 (1.5-2.6) mg/dL Troponin I < 0.01 L (0.01-0.04) ng/mL Imaging Data Right knee x-ray: Radiologist's impression: Indication: Pain Comparison: None available. Technique: Standing AP, lateral, and sunrise views of the right knee were obtained Findings: There is no displaced fracture or dislocation. There is mild medial compartmental joint space narrowing with minimal tibial spine spurring. There is mild prepatellar soft tissue swelling. Impression: Mild prepatellar soft tissue swelling without evidence of displaced fracture. Dictated by Saurabh Almaguer MD @ 10/05/2022 6:17:24 PM ECG Data Prior ECG tracings: available for review (01/31/2022) Interpretation: Normal sinus rhythm the rate of 79 beats per minute, normal intervals, normal axis, no ST or T-wave abnormalities. Appears similar to previous EKGs on file. Discharge Plan Discharge Clinical Impression: Acute pain of right knee Patient Disposition: Home, Self-Care Condition: Stable Instructions: Knee Pain (ED) Additional Instructions: Keep your previously scheduled appointments with Orthopedics this upcoming Friday here the primary care provider this upcoming Friday. Take your home pain medications as directed. Activity Level: No Restrictions Discharge Diet: Regular Prescriptions: No Action duloxetine [Cymbalta] 60 mg capsule,delayed release(DR/EC) 120 mg PO QDAY lorazepam [Ativan] 1 mg tablet 1 mg PO TID PRN bupropion HCl 300 mg tablet extended release 24 hr 300 mg PO DAILY prazosin 2 mg capsule PO DAILY topiramate 25 mg tablet PO BID trazodone 50 mg tablet 50 mg PO .Bedtime lamotrigine 200 mg tablet PO BID metformin 1,000 mg tablet 1,000 mg PO BIDWMEAL tizanidine 4 mg tablet 2 - 4 mg PO PRN escitalopram oxalate 5 mg tablet 5 mg PO .Bedtime oxycodone 15 mg tablet 10 mg PO QID PRN (DME) Accu-Chek Kaylee Plus test strp Strip See Rx Instructions .Route Qty: 100 6RF Rx Instructions: As directed, 1 test BID (DME) Accu-Chek Kaylee Plus test strp Strip See Rx Instructions .Route Qty: 100 12RF Rx Instructions: tid (DME) lancets [Accu-Chek Softclix Lancets] Misc See Rx Instructions .Route Qty: 200 12RF Rx Instructions: tid oxycodone 10 mg tablet PO oxycodone 20 mg tablet,oral only,ext.rel.12 hr 20 mg PO Q8H pramipexole 0.5 mg tablet 0.5 mg PO DAILY Qty: 90 3RF dicyclomine 20 mg tablet See Rx Instructions .ROUTE .COMPLEX Qty: 270 3RF Dose Instruction: TAKE ONE TABLET BY MOUTH THREE TIMES DAILY Rx Instructions: TAKE ONE TABLET BY MOUTH THREE TIMES DAILY omeprazole 40 mg capsule,delayed release(DR/EC) 40 mg PO DAILY Qty: 90 2RF (DME) lancets [Accu-Chek Softclix Lancets] Misc See Rx Instructions .Route Qty: 100 6RF Rx Instructions: As directed, 1 test BID (DME) blood-glucose meter [Accu-Chek Kaylee Plus Meter] [facility] See Rx Instructions .Route Qty: 1 0RF Rx Instructions: As directed simvastatin 20 mg tablet See Rx Instructions .ROUTE .COMPLEX Qty: 90 3RF Dose Instruction: TAKE ONE TABLET BY MOUTH ONE TIME DAILY AT BEDTIME Rx Instructions: TAKE ONE TABLET BY MOUTH ONE TIME DAILY AT BEDTIME furosemide 20 mg tablet See Rx Instructions .ROUTE .COMPLEX Qty: 90 3RF Dose Instruction: TAKE ONE TABLET BY MOUTH DAILY NEEDED FOR EDEMA. Rx Instructions: TAKE ONE TABLET BY MOUTH DAILY NEEDED FOR EDEMA. bisacodyl [Dulcolax (bisacodyl)] 10 mg suppository 10 mg MS ONCE 7 Days Qty: 7 1RF Follow Up/Referrals: Hayes Mcelroy MD [Primary Care Provider] - Stand Alone Forms: [employer] Info Instructions
[2022-10-05] MEDS: HYDROmorphone 0.5 mg/0.5 ml inj IVP (18:23)
--- OUTSIDE RECORDS SUMMARY | 2022-10-05 18:51 | XMS_ITS | Continuity of Care Document ---
Author Name Unknown Organization [facility] Address [place] [id number] [facility], [address] [place] [address]- Encounter 01/02/22 - 01/04/[address] [facility] [address] [place], [place] [address] Encounter Diagnosis Degenerative lumbar disc(Discharge Diagnosis) - 01/02/22 Attending Physician: Kory Bradley MD Allergies, Adverse Reactions, Alerts Substance Reaction Severity Status Compazine Unknown Active Assessment and Plan Extracted from: Title:Consult Note Author:Kory Bradley MD Hernandez e:01/02/22 1.??Degenerative lumbar disc ??(M51.36) Recent CT angiogram is reviewed and notes from patient's orthopedist have been reviewed at length as well.?? In summary this patient has had previous anterior retroperitoneal exposure for L4-L5??spinal fusion surgery. ??Desired at this point is for revision L3-L4 surgery which was not previously done from the front. ??Response complications or [place] regarding reoperative surgery??on the left side with previous exposure on the side reviewed with the patient at length. ??Ureteral stent will be required at the time of surgery and this was reviewed with her as well. ??Risk benefits and complications of surgical intervention were reviewed at length. ??We will proceed with surgery as scheduled.?? Time for review of??an exam and discussion greater than 60 minutes. Ordered: [id number] office o/p new hi 60-74 min (Charge), Quantity: 1, Degenerative lumbar disc ?? Medications Cymbalta Oral, 0 Refill(s), Type: Maintenance Start Date: 01/02/22 Status: Ordered Lasix daily, 0 Refill(s), Type: Maintenance Start Date: 01/02/22 Status: Ordered Lexapro Oral, daily, 0 Refill(s), Type: Maintenance Start Date: 01/02/22 Status: Ordered metFORMIN Oral, 0 Refill(s), Type: Maintenance Start Date: 01/02/22 Status: Ordered Mirapex Oral, tid, 0 Refill(s), Type: Maintenance Start Date: 01/02/22 Status: Ordered oxyCODONE 5 mg oral capsule = 1 cap(s) ( 5 mg ), Oral, q6 hrs, 0 Refill(s), Type: Maintenance Start Date: 01/02/22 Status: Ordered OxyCONTIN Oral, q12 hrs, 0 Refill(s), Type: Maintenance Start Date: 01/02/22 Status: Ordered PriLOSEC Oral, daily, 0 Refill(s), Type: Maintenance Start Date: 01/02/22 Status: Ordered Topamax Oral, bid, 0 Refill(s), Type: Maintenance Start Date: 01/02/22 Status: Ordered traZODone Oral, 0 Refill(s), Type: Maintenance Start Date: 01/02/22 Status: Ordered Vitamin D3 daily, 0 Refill(s), Type: Maintenance Start Date: 01/02/22 Status: Ordered Wellbutrin SR Oral, bid, 0 Refill(s), Type: Maintenance Start Date: 01/02/22 Status: Ordered Problem List Diagnosis Diagnosis Type Effective Dates Health Status Clinical Service Informant Degenerative lumbar disc Discharge Diagnosis 01/02/22 Procedures Procedure Date Related Diagnosis Body Site Status Lumbar spinal fusion 1 05/02/11 Co mpleted 1L4 to S1. Surgery Consult note * Kirk MANN, Kory Armendariz: PERFORM Event Display: Surgical Consultation Authored Date: Chief Complaint Consult for spine fusion consult with Dr Sawyer at [facility] on 01/16/2022. History of Present Illness The patient is a 61-year-old man seen in consultation??on 01/02/2022 for evaluation regarding need for anterior revision spinal fusion surgery at L3-L4 spinal level. ??She has a history of a significant lumbar spinal surgeries including cervical surgery x4 and a back surgeries x6 with 1 previous anterior posterior fusion completed at??[facility] in [place] which she reports was a 3 level??fusion. ??That surgery was done in 2011. ??She reports she had an incision in the front and the back for that surgical intervention.?? At the current time she suffers from significant back pain. ??She does not have significant leg pain and denies foot drop. ??She is without bowel or bladder incontinence.?? She has undergone extensive??nonsurgical evaluation therapies in the??discussion with??[facility] caregivers regarding her current status. ??Her current weight 162 pounds and she is 5 foot9 inches tall.?? She had quit smoking approximately 8 months ago. Review of Systems ?? The cardiac exam is a regular rhythm rate 80/min no murmurs are noted. ??Vascular exam indicatesnormal carotids without bruits. ??Lower extremities well perfused. ??Pedal pulses are present by Doppler at the ankle mortise. ??No evidence of edema varicose veins or chronic venous changes?? No major GI or illnesses. ??Examined case well-developed well-nourished healthy alert and oriented woman. ??Head neck is within normal limits. ??Sclera of the eyes are clear no mass or adenopathy neck orsupraclavicular area. ??Trachea midline and mobile thyroid is within normal limits.Review of systems is significant for??significant pain issues and she is under direction of a pain clinical veterinarian. ??She also suffers from marked depression.?? She is without history myocardial infarction cerebrovascular accident peripheral vascular arterial or venous insufficiency disease. ??Specifically she has no edema varicose veins??chronic venous changes in the lower extremities she has not had history of deep vein thrombosis or phlebitis or pulmonary embolism.?? She is under a number of medications for her depression??currently.?? These??extremity her medications include OxyContin??Prilosec??dicyclomine??Cymbalta trazodone??prazosin Lexapro Wellbutrin??lactitol??MiraLAX??Lasix??metformin.?? She has had diet and medication control diabetes. ??Hypertension noted.?? She reports these are all under good control at the current time.?? As noted she quit smoking 8 months ago and she reports she does not take alcohol. ??She has a significant other. ??She does not do significant exercise??on a daily??or weekly basis. Physical Exam Exam indicates well-built well-nourished healthy alert and oriented woman.?? Head neck is within normal limits. ??No mass or adenopathy. ??Trachea midline mobile is clear of the eyes are clear. ??Lungs are clear to auscultation cardiac exam is regular rhythm without murmurs. ??Vascular exam indicates normal carotids without bruits. ??Lower extremities well-perfused pedal pulses are present by Doppler the ankle mortise??no evidence of edema varicose veins chronic venous changes lower extremities.?? Abdominal exam reveals well-healed cholecystectomy right subcostal incision in the low midline incision just the upper portion of the umbilical location without hernia.?? She is without evidence of inguinal hernia or femoral hernias.?? Some diastases upper abdominal??fascia and in addition some bulge in the right portion of the abdomen between the midline and the subcostal incision.?? No true hernia in the subcostal incision. Assessment/Plan 1.??Degenerative lumbar disc??(M51.36) Recent CT angiogram is reviewed and notes from patient's orthopedist have been reviewed at length as well.?? In summary this patient has had previous anterior retroperitoneal exposure for L4-L5??spinal fusion surgery. ??Desired at this point is for revision L3-L4 surgery which was not previously done from the front. ??Response complications or [place] regarding reoperative surgery??on the left sidewith previous exposure on the side reviewed with the patient at length. ??Ureteral stent will be required at the time of surgery and this was reviewed with her as well. ??Risk benefits and complications of surgical intervention were reviewed at length. ??We will proceed with surgery as scheduled.??Time for review of??an exam and discussion greater than 60 minutes. Ordered: [id number] office o/p new tx 60-74 min (Charge), Quantity: 1, Degenerative lumbar disc ?? Patient Information Name:ROBERT MOY Address: [address] [place] [address] [place] [address] Sex:Female Date of :1960 Location:[facility] Date of Service:01/02/2022 Attending Physician: Kirk MANN, Kory Armendariz, Problem List/Past Medical History Ongoing No qualifying data Historical No qualifying data Procedure/Surgical History ???Lumbar spinal fusion (05/02/2011) Comments: L4 to S1.. Medications Inpatient No active inpatient medications Home No active home medications Allergies No active allergies Immunizations No Immunizations recorded for patient. Electronically Signed on 01/02/2022 03:52 PM Kory Bradley MD
--- OUTSIDE RECORDS SUMMARY | 2022-10-05 18:51 | XMS_ITS | Continuity of Care Document ---
Author Name Unknown Organization [facility] Address [address], [address] [place] [address]- Encounter 04/24/22 - 04/26/22 [facility] [address] [place] [address] [address] [place], [place] [address] Encounter Diagnosis Abdominal pain in female(Discharge Diagnosis) - 04/24/22 Attending Physician: Kory Bradley MD Allergies, Adverse Reactions, Alerts Substance Reaction Severity Status Compazine Unknown Active Assessment and Plan Extracted from: Title:Office Visit Note Author:Kory Bradley MD Date:04/24/22 1.??Abdominal pain in female ??(R10.9) CT scanning which was completed??on 04/23/2022 reveals the presence of??significant??moderately diffusely constipated??without visible??focus of obstruction:.?? No small bowel abnormality noted. ??No other specific abnormality. ??No fluid collections??and no problem with the??abdominal wall itself in the area of incision.?? At this point it appears that??the patient has significant obstipation and constipation. ??Recommended bowel program and??this would include MiraLAX milk of magnesia and mag citrate as she desires. ??She is familiar with all of these as she has dealt with this before. ??She will communicate with me in the last 2 months if she has not improved. Ordered: [id number] office o/p est low 20-29 min (Charge), Quantity: 1, Abdominal pain in female ?? Medications Cymbalta Oral, 0 Refill(s), Type: [...] Diagnosis Diagnosis Type Effective Dates Health Status Cl inical Service Informant Abdominal pain in female Discharge Diagnosis 04/24/22 Procedures Procedure Date Related Diagnosis Body Site Status Lumbar spinal fusion 1 01/16/22 Co mpleted Lumbar spinal fusion 2 05/02/11 Co mpleted 1Cosurgeon Kory Bradley MD. Level L3-4. 2L4 to S1. Surgery Note * Kirk MANN, Kory Armendariz: PERFORM Event Display: Surgery Note Authored Date: [id number] Chief Complaint Discuss abdominal pain and bloating after spinal fusion surgery on 01/16/22 [address] Sawyer. ??Review CT abdomen pelvis results. History of Present Illness The patient is a??61-year-old woman seen in consultation 04/23/2022 for evaluation regarding abdominal discomfort and bloating. ??She has a history of spinal fusion surgery??in 2021 and now has significant abdominal distention. ??She has some discomfort with postprandial setting as well. ??No diarrhea no nausea no emesis.?? She had a significant surgical intervention for??L3- 4??spinal fusion??surgery.?? She had a posterior fusion at that time as well. ??She has been seen by her??physician at [facility] and apparently she is??progressing nicely from healing of her spinal axis.?? She denies ja undice??or urinary tract symptoms at the current time. ??No diarrhea.?? The bloating seems to be her #1 problem. ??It is of note patient is on pain contract.?? This is??being??tapered at her request. Review of Systems No significant change from preop. 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 ??No edema of the lower extremities.?? She is a non-smoker currently and nondrinking. Physical Exam Exam reveals a well-developed well-nourished healthy alert and oriented woman. ??Head neck is within normal limits. ??Lungs are clear to auscultation and cardiac exam reveals a regular rhythm. ??Rate80/min. ??Lower extremities well perfused. ??No edema.?? Abdominal exam standing and supine??reveals the presence of a??midline incision which is healing without abnormality. ??No evidence of inflammation. ??No evidence of hernia on exam.?? No peritoneal findings.?? The incision appears normal for this??time postoperatively from the major surgical intervention she underwent on 01/16/2022. Assessment/Plan 1.??Abdominal pain in female??(R10.9) CT scanning which was completed??on 04/23/2022 reveals the presence of??significant??moderately diffusely constipated??without visible??focus of obstruction:.?? No small bowel abnormality noted. ??No other specific abnormality. ??No fluid collections??and no problem with the??abdominal wall itself in the area of incision.?? At this point it appears that??the patient has significant obstipation andconstipation. ??Recommended bowel program and??this would include MiraLAX milk of magnesia and mag citrate as she desires. ??She is familiar with all of these as she has dealt with this before. ??Shewill communicate with me in the last 2 months if she has not improved. Ordered: [id number] office o/p est low 20-29 min (Charge), Quantity: 1, Abdominal pain in female ?? Patient Information Name:ROBERT MOY Address: [address] [place] [address] [place] [address] Sex:Female Date of :1960 Location:[place] Date of Service:04/24/2022 Problem List/Past Medical History Ongoing No qualifying data Historical No qualifying data Procedure/Surgical History ???Lumbar spinal fusion (01/16/2022) Comments: Noe Bradley MD. ??Level L3-4.. ???Lumbar spinal fusion (05/02/2011) Comments: L4 to S1.. Medications Cymbalta, Oral Lasix, daily Lexapro, Oral, daily metFORMIN, Oral Mirapex, Oral, tid oxyCODONE 5 mg oral capsule, 5 mg= 1 cap(s), Oral, q6 hrs OxyCONTIN, Oral, q12 hrs PriLOSEC, Oral, daily Topamax, Oral, bid traZODone, Oral Vitamin D3, daily Wellbutrin SR, Oral, bid Allergies Compazine Electronically Signed on 04/24/2022 01:49 PM Kory Bradley MD
== END 2022-10-05 19:11 | disposition home or self-care (01) ==
PROVIDERS: Emergency Provider Student in an Organized Health Care Education/Training Program; PCP Family Medicine
DX: M25.561 Pain in right knee (principal)
CPT/HCPCS: 36415; 73562; 80048; 83735; 84484; 85025; 93005; 96374; 96375; 99283; 99284; 99285; J1170; J1885; J2270

== ENCOUNTER 2022-10-17 16:16 | Outpatient (CLI) | payer MEDICARE, OTHER, SELFPAY ==
--- OUTSIDE RECORDS SUMMARY | 2022-10-17 16:19 | XMS_ITS | Continuity of Care Document ---
Author Name Unknown Organization [facility] Address [address] [place] [address] Care Team Providers Care It Applications Analyst Name Role Phone Beth Benoit CRNA Unavailable Unavail able Procedures Procedure Date ANESTH, NERVE BLOCK/INJ Advance Directives Directive Yes / No Effective Date File Name No Information Encounters Encounter Description Practice Location Reason(s) For Visit Diagnoses Date Provider Providers Copied on Encounter [facility], [address], [place], [id number], [facility] No Information Cy Campos. [address], [place], [id number], . tel:[phone] Referring Provider: Divina Deras, [address] [facility] [place], [address] . tel:[phone] Family History Family Member Type Diagnosis Age At Onset No Information Payers Payer name Insurance type Covered libertarian ID Authoriza tiflaco(s) [employer] To 16 [id number] Social History Type Description Quantity Date Captured [...]
--- OUTSIDE RECORDS SUMMARY | 2022-10-17 16:19 | XMS_ITS | Continuity of Care Document ---
Author Name Unknown Organization [facility] Address [address] [place] [id number] Care Team Providers Care Needle Loom Operator Helper Name Role Phone [facility] Unavailable Unav ailable Procedures Procedure Date MAJOR JOINT OR BURSA INJ WITH ULTRASOUND MAJOR JOINT OR BURSA INJ WITH ULTRASOUND Advance Directives Directive Yes / No Effective Date File Name No Information Encounters Encounter Description Practice Location Reason(s) For Visit Diagnoses Date Provider Providers Copied on Encounter [facility], [address] [place] [address], [id number], [facility] No Information [facility]. [address] [place], [place], [id number], . tel:[phone] Referring Provider: Divina Deras, [address] [place], [address]. tel:[phone] Family History Family Member Type Diagnosis Age At Onset No Information Payers Payer name Insurance type Covered democrat ID Authoriza tion(s) [employer] To 16 [id number] Social History Type Description Quantity Date Captured [...]
--- OUTSIDE RECORDS SUMMARY | 2022-10-17 16:20 | XMS_ITS | Continuity of Care Document ---
Author Name Unknown Organization [facility] tommie Address [address] [facility] [place] Schmidt [id number] Phone Care Team Providers Care Ec Teacher Name Role Phone Kiara Álvarez CNP Unavailable [...] Provider Providers Copied on Encounter OFFICE VISIT, [facility], [address] [place] [address], [id number] , tel:[phone] [facility] Back Pain (chief complaint) Postlaminectom y syndrome, not elsewhere classifiedOthe r intervertebral disc degeneration, lumbar regionPain in right kneePain in left kneeDrug induced constipationLo ng term (current) use of opiate analgesic 3 Jonah Craig. [address] [place] [address], [id number], [place]. tel:[phone] Consulting Provider: Lucas Talamantes, [facility] [address] [place] [address], [place], [address]. tel:[phone] ring Provider: Emir Espinal, [address] [place] [address], [id number]. tel:[phone] OFFICE VISIT, [facility], [address] [place] [address], [id number] , tel:[phone] [facility] [place] Back Pain (chief complaint) Postlaminectom y syndrome, not elsewhere classifiedOthe r intervertebral disc degeneration, lumbar regionSacroili itis, not elsewhere classifiedPain in right kneePain in left kneeOther muscle spasmChronic migraine without aura, intractable, without status migrainosusMaj or depressive disorder, single episode, unspecifiedDru g induced constipationLo ng term (current) use of opiate analgesic 3 Jonah Overberoberto carlos Kiara. [address] [place] [address], [id number], [place]. tel:[phone] Consulting Provider: [facility] [address], [address], [place], [address]. tel:[phone] ring Provider: Emir Espinal, [address] [place] [address], [id number]. tel:[phone] [facility], [address] [place] [address], [id number] , [place] [phone] [facility] No Information 3 Jonah Craig. [address] [place] [address], [id number], [place]. tel:[phone] Referring Provider: Emir Espinal, [address] [place] [address], [id number]. tel:[phone] OFFICE/OUTPAT IENT VISIT, EST [facility], [address] [place] [address], [id number] , [place] [phone] [facility] Back Pain (chief complaint) Major depressive disorder, single episode, unspecifiedChr onic migraine without aura, intractable, without status migrainosusDru g induced constipationPa in in right kneePain in left kneeSacroiliit is, not elsewhere classifiedOthe r intervertebral disc degeneration, lumbar regionOther muscle spasmPostlamin ectomy syndrome, not elsewhere classifiedLong term (current) use of opiate analgesicEncou nter for therapeutic drug level monitoring 3 Jonah Craig. [address] [place] [address], [id number], [place]. tel:[phone] Consulting Provider: Lucas Talamantes, [facility] [address], [address], [place], [address]. tel:[phone] ring Provider: Emir Espinal, [address] [place] [address], [id number]. tel:[phone] [facility], [address] [place] [address], [id number] , [place] [phone] [facility] Pain in right kneePain in left knee 3 Braeden Murcia. [address] [place] [address], [id number], [place]. tel:[phone] Referring Provider: Emir Espinal, [address] [place] [address], [id number]. tel:[phone] OFFICE VISIT, EST TELEMEDICINE [facility], [address] [place] [address], [id number] , [place] tel:[phone] [facility] Back pain (chief complaint) Major depressive disorder, single episode, unspecifiedChr onic migraine without aura, intractable, without status migrainosusSac roiliitis, not elsewhere classifiedOthe r intervertebral disc degeneration, lumbar regionOther muscle spasmPostlamin ectomy syndrome, not elsewhere classifiedLong term (current) use of opiate analgesicPain in right kneePain in left kneeDrug induced constipation 3 Jonah Overberoberto carlos Kiara. [address] [place] [address], [id number], [place]. tel:[phone] Consulting Provider: Lucas Talamantes, [facility] [address], [address], [place], [address]. tel:[phone] ring Provider: Emir Espinal, [address] [place] [address], [id number]. tel:[phone] OFFICE VISIT, EST TELEMEDICINE [facility], [address] [place] [address], [id number] , [place] tel:[phone] [facility] Back Pain (chief complaint) Major depressive disorder, single episode, unspecifiedChr onic migraine without aura, intractable, without status migrainosusSac roiliitis, not elsewhere classifiedOthe r intervertebral disc degeneration, lumbar regionOther muscle spasmPostlamin ectomy syndrome, not elsewhere classifiedLong term (current) use of opiate analgesic 3 Van Overbeke Kiara. [address] [place] [address], [id number], [place]. tel:[phone] Consulting Provider: Lucas Talamantes, [facility] [address], [address], [place], [address]. tel:[phone] [facility], [address] [place] [address], [id number] , [place] tel:[phone] [facility] No Information 3 Jonah Craig. [address] [place] [address], [id number], [place]. tel:[phone] OFFICE/OUTPAT IENT VISIT, EST [facility], [address] [place] [address], [id number] , [place] [phone] [facility] back pain (chief complaint) Major depressive disorder, single episode, unspecifiedChr onic migraine without aura, intractable, without status migrainosusSac roiliitis, not elsewhere classifiedOthe r intervertebral disc degeneration, lumbar regionOther muscle spasmPostlamin ectomy syndrome, not elsewhere classifiedLong term (current) use of opiate analgesicEncou nter for therapeutic drug level monitoring 3 Jonah Craig. [address] [place] [address], [id number], [place]. tel:[phone] Consulting Provider: Lucas Talamantes, [facility] [address], [facility] [address], [place], [address]. tel:[phone] ring Provider: Emir Espinal, [address] [place] [address], [id number]. tel:[phone] [facility], [address] [place] [address], [id number] , [place] tel:[phone] [facility] No Information 3 Jonah Craig. [address] [place] [address], [id number], [place]. tel:[phone] OFFICE VISIT, EST TELEMEDICINE [facility], [address] [place] [address], [id number] , [place] tel:[phone] [facility] Back Pain (chief complaint) Major depressive disorder, single episode, unspecifiedChr onic migraine without aura, intractable, without status migrainosusSac roiliitis, not elsewhere classifiedOthe r intervertebral disc degeneration, lumbar regionPostlami nectomy syndrome, not elsewhere classifiedLong term (current) use of opiate analgesicOther muscle spasm Fe-2 7-202 3 Jonah Pastorberoberto carlos Kiara. [address], [place], [id number], [place]. tel:[phone] Consulting Provider: Lucas Talamantes [facility] [address], [address], [place], [address]. tel:[phone] OFFICE VISIT, [facility] TELEMEDICINE [facility], [address] [place] [address], [id number] , [place] tel:[phone] [facility] Back Pain (chief complaint) Other intervertebral disc degeneration, lumbar regionSacroili itis, not elsewhere classifiedChro tommie migraine without aura, intractable, without status migrainosusMaj or depressive disorder, single episode, unspecifiedOth er muscle spasmPostlamin ectomy syndrome, not elsewhere classifiedLong term (current) use of opiate analgesic 3 Jonah Craig. [address], [place], [id number], [place]. tel:[phone] Consulting Provider: Lucas Talamantes, [facility] [address], [address], [place], [address]. tel:[phone] OFFICE/OUTPAT IENT VISIT, [facility], [address] [place] [address], [id number] , [place] tel:[phone] [facility] Back pain (chief complaint) Major depressive disorder, single episode, unspecifiedChr onic migraine without aura, intractable, without status migrainosusSac roiliitis, not elsewhere classifiedOthe r intervertebral disc degeneration, lumbar regionOther muscle spasmPostlamin ectomy syndrome, not elsewhere classifiedLong term (current) use of opiate analgesicEncou nter for therapeutic drug level monitoring 2 Jonah Craig. [address], [place], [id number], [place]. tel:[phone] Consulting Provider: Lucas Talamantes [facility] [address], [address], [place], [address]. tel:[phone] ring Provider: Emir Espinal, [address] [place], [address]. tel:[phone] [facility], [address] [place] [address], [id number] , [place] tel:[phone] [facility] No Information 2 Jonah Craig. [address] [place] [address], [id number], [place]. tel:[phone] Referring Provider: Emir Espinal, [address] [place] [address], [id number]. tel:[phone] OFFICE VISIT, EST TELEMEDICINE [facility], [address] [place] [address], [id number] , [place] [phone] [facility] Back pain (chief complaint) Major depressive disorder, single episode, unspecifiedChr onic migraine without aura, intractable, without status migrainosusSac roiliitis, not elsewhere classifiedOthe r intervertebral disc degeneration, lumbar regionOther muscle spasmPostlamin ectomy syndrome, not elsewhere classifiedLong term (current) use of opiate analgesic Dec- 2 Jonah Guillen Kiara. [address] [place] [address], [id number], [place]. tel:[phone] Consulting Provider: Lucas Talamantes, [facility] [address], [address], [address]. tel:[phone] ring Provider: Emir Espinal, [address] [place] [address], [id number]. tel:[phone] OFFICE VISIT, EST TELEMEDICINE [facility], [address] [place] [address], [id number] , [place] tel:[phone] [facility] Back pain (chief complaint) Major depressive disorder, single episode, unspecifiedChr onic migraine without aura, intractable, without status migrainosusSac roiliitis, not elsewhere classifiedOthe r intervertebral disc degeneration, lumbar regionPostlami nectomy syndrome, not elsewhere classifiedLong term (current) use of opiate analgesicOther muscle spasm 2 Jonah Pastorberoberto carlos Kiara. [address] [place] [address], [id number], [place]. tel:[phone] Consulting Provider: Lucas Talamantes, [facility] [address], [address], [place], [address]. tel:[phone] OFFICE/OUTPAT IENT VISIT, EST [facility], [address] [place] [address], [id number] , [place] tel:[phone] [facility] Back pain (chief complaint) Major depressive disorder, single episode, unspecifiedChr onic migraine without aura, intractable, without status migrainosusSac roiliitis, not elsewhere classifiedOthe r intervertebral disc degeneration, lumbar regionPostlami nectomy syndrome, not elsewhere classifiedLong term (current) use of opiate analgesicEncou nter for therapeutic drug level monitoring Sep-2 2 Van Overbeke Kiara. [address] [place] [address], [id number], [place]. tel:[phone] Consulting Provider: [facility] [address], [address], [place], [address]. tel:[phone] ring Provider: Emir Espinal, [address] [place] [address], [id number]. tel:[phone] [facility], [address] [place] [address], [id number] , [place] tel:[phone] [facility] No Information Sep-2 2 Jonah Pastorberoberto carlos Kiara. [address] [place] [address], [id number], [place]. tel:[phone] OFFICE VISIT, EST TELEMEDICINE [facility], [address] [place] [address], [id number] , [place] tel:[phone] [facility] Back Pain (chief complaint) Major depressive disorder, single episode, unspecifiedChr onic migraine without aura, intractable, without status migrainosusSac roiliitis, not elsewhere classifiedOthe r intervertebral disc degeneration, lumbar regionPostlami nectomy syndrome, not elsewhere classifiedLong term (current) use of opiate analgesic Sep-0 2 Keri Campos. [address], [place], [place], [id number], . tel:[phone] Consulting Provider: Lucas Talamantes [facility] [address], [address], [place], [address]. tel:[phone] ring Provider: Emir Espinal, [address] [place] [address], [id number]. tel:[phone] OFFICE VISIT, EST TELEMEDICINE [facility], [address] [place] [address], [id number] , [place] [phone] [facility] Back pain (chief complaint) Chronic migraine without aura, intractable, without status migrainosusSac roiliitis, not elsewhere classifiedOthe r intervertebral disc degeneration, lumbar regionPostlami nectomy syndrome, not elsewhere classifiedLong term (current) use of opiate analgesicMajor depressive disorder, single episode, unspecified 2 Van Overbeke Kiara. [address] [place] [address], [id number], [place]. tel:[phone] Consulting Provider: [facility] [address], [address], [place], [address]. tel:[phone] ring Provider: Emir Espinal, [address] [place] [address], [id number]. tel:[phone] OFFICE VISIT, EST TELEMEDICINE [facility], [address] [place] [address], [id number] , [place] tel:[phone] [facility] back pain (chief complaint) Chronic migraine without aura, intractable, without status migrainosusSac roiliitis, not elsewhere classifiedOthe r intervertebral disc degeneration, lumbar regionPostlami nectomy syndrome, not elsewhere classifiedLong term (current) use of opiate analgesic 2 Van Overbeke Kiara. [address] [place] [address], [id number], [place]. tel:[phone] Consulting Provider: Lucas Talamantes [facility] [address], [address], [place], [address]. tel:[phone] [facility], [address] [place] [address], [id number] , [place] [phone] [facility] No Information 2 Van Overbeke Kiara. [address] [place] [address], [id number], [place]. tel:[phone] Referring Provider: Emir Espinal, [address] [place] [address], [id number]. tel:[phone] OFFICE/OUTPAT IENT VISIT, [facility], [address] [place] [address], [id number] , [place] [phone] [facility] Back Pain (chief complaint) Chronic migraine without aura, intractable, without status migrainosusSac roiliitis, not elsewhere classifiedOthe r intervertebral disc degeneration, lumbar regionPostlami nectomy syndrome, not elsewhere classifiedLong term (current) use of opiate analgesicEncou nter for therapeutic drug level monitoring 2 Jonah Pastorberoberto carlos Kiara. [address] [place] [address], [id number], [place]. tel:[phone] Consulting Provider: Lucas Talamantes [facility] [address], [address], [place], [address]. tel:[phone] ring Provider: Emir Espinal, [address] [place] [address], [id number]. tel:[phone] OFFICE VISIT, EST TELEMEDICINE [facility], [address] [place] [address], [id number] , [place] tel:[phone] [facility] Back Pain (chief complaint) Chronic migraine without aura, intractable, without status migrainosusSac roiliitis, not elsewhere classifiedOthe r intervertebral disc degeneration, lumbar regionPostlami nectomy syndrome, not elsewhere classifiedLong term (current) use of opiate analgesic 2 Van Overbeke Kiara. [address] [place] [address], [id number], [place]. tel:[phone] Consulting Provider: Lucas Talamantes [facility] [address], [address], [place], [address]. [phone] OFFICE VISIT, EST TELEMEDICINE [facility], [address] [place] [address], [id number] , [place] tel:[phone] [facility] Back Pain (chief complaint) Headache (chief complaint) Chronic migraine without aura, intractable, without status migrainosusSac roiliitis, not elsewhere classifiedOthe r intervertebral disc degeneration, lumbar regionPostlami nectomy syndrome, not elsewhere classifiedLong term (current) use of opiate analgesic Apr-2 2 Van Overbeke Kiara. [address] [place] [address], [id number], [place]. tel:[phone] Consulting Provider: Lucas Talamantes [facility] [address], [address] [facility], [place], [address]. [phone] [facility], [address] [place] [address], [id number] , [place] [phone] [facility] Chronic migraine without aura, intractable, without status migrainosus Apr-0 2 Ney Quinones. [address] [place], [place], [id number], [place]. tel:[phone] Referring Provider: Emir Espinal, [address] [place] [address], [id number]. tel:[phone] OFFICE VISIT, EST TELEMEDICINE [facility], [address] [place] [address], [id number] , [place] [phone] [facility] Back Pain (chief complaint) Chronic migraine without aura, intractable, without status migrainosusOth er intervertebral disc degeneration, lumbar regionLong term (current) use of opiate analgesicPostl aminectomy syndrome, not elsewhere classifiedSacr oiliitis, not elsewhere classified Mar- 2 Jonah Overbeke Kiara. [address] [place] [address], [id number], [place]. tel:[phone] Consulting Provider: Lucas Talamantes, [facility] [address], [address], [place], [address]. tel:[phone] ring Provider: Emir Espinal, [address] [place] [address], [id number]. tel:[phone] [facility], [address] [place] [address], [id number] , [place] [phone] [facility] No Information 2 Van Overbeke Kiara. [address] [place] [address], [id number], [place]. tel:[phone] OFFICE/OUTPAT IENT VISIT, EST [facility], [address] [place] [address], [id number] , [place] [phone] [facility] Back Pain (chief complaint) Other intervertebral disc degeneration, lumbar regionLong term (current) use of opiate analgesicPostl aminectomy syndrome, not elsewhere classifiedSacr oiliitis, not elsewhere classifiedEnco unter for therapeutic drug level monitoringEnco unter for screening for other disorderChroni c migraine without aura, intractable, without status migrainosus 2 Van Overbeke Kiara. [address] [place] [address], [id number], [place]. tel:[phone] Consulting Provider: Lucas Talamantes [facility] [address], [address], [place], [address]. tel:[phone] ring Provider: Emir Espinal, [address] [place] [address], [id number]. tel:[phone] OFFICE VISIT, EST TELEMEDICINE [facility], [address] [place] [address], [id number] , [place] tel:[phone] [facility] Back Pain (chief complaint) Other intervertebral disc degeneration, lumbar regionLong term (current) use of opiate analgesicPostl aminectomy syndrome, not elsewhere classifiedSacr oiliitis, not elsewhere classified 2 Van Overbeke Kiara. [address] [place] [address], [id number], [place]. tel:[phone] Consulting Provider: Lucas Talamantes [facility] [address], [address], [place], [address]. tel:[phone] OFFICE VISIT, EST TELEMEDICINE [facility], [address] [place] [address], [id number] , [place] [phone] [facility] Back Pain (chief complaint) Other intervertebral disc degeneration, lumbar regionLong term (current) use of opiate analgesicPostl aminectomy syndrome, not elsewhere classifiedSacr oiliitis, not elsewhere classified Van Overbeke Kiara. [address] [place] [address], [id number], [place]. tel:[phone] Consulting Provider: [facility] [address], [address], [place], [address]. tel:[phone] OFFICE VISIT, EST TELEMEDICINE [facility], [address] [place] [address], [id number] , [phone] [facility] Back Pain (chief complaint) Other intervertebral disc degeneration, lumbar regionLong term (current) use of opiate analgesicPostl aminectomy syndrome, not elsewhere classifiedSacr oiliitis, not elsewhere classified Van Overbeke Kiara. [address] [place] [address], [id number], [place]. tel:[phone] Consulting Provider: [facility] [address], [address], [place], [address]. tel:[phone] ring Provider: Emir Espinal, [address] [place] [address], [id number]. tel:[phone] OFFICE VISIT, EST TELEMEDICINE [facility], [address] [place] [address], [id number] , [place] [phone] [facility] Back Pain (chief complaint) Other intervertebral disc degeneration, lumbar regionLong term (current) use of opiate analgesicPostl aminectomy syndrome, not elsewhere classifiedSacr oiliitis, not elsewhere classified Van Overbeke Kiara. [address] [place] [address], [id number], [place]. tel:[phone] Consulting Provider: Lucas Talamantes, [facility] [address], [address], [place], [address]. tel:[phone] OFFICE/OUTPAT IENT VISIT, EST [facility], [address] [place] [address], [id number] , [place] tel:[phone] [facility] Back Pain (chief complaint) Other intervertebral disc degeneration, lumbar regionLong term (current) use of opiate analgesicPostl aminectomy syndrome, not elsewhere classifiedSacr oiliitis, not elsewhere classifiedEnco unter for therapeutic drug level monitoring Oct- 1 Jonah Overbeke Kiara. [address] [place] [address], [id number], [place]. tel:[phone] Consulting Provider: Lucas Talamantes, [facility] [address], [address], [place], [address]. tel:[phone] ring Provider: Emir Espinal, [address] [place] [address], [id number]. tel:[phone] [facility], [address] [place] [address], [id number] , [place] tel:[phone] [facility] Encounter for therapeutic drug level monitoringLong term (current) use of opiate analgesic Oct- 1 Jonah Overbeke Kiara. [address] [place] [address], [id number], [place]. tel:[phone] Referring Provider: Emir Espinal, [address] [place] [address], [id number]. tel:[phone] OFFICE VISIT, EST TELEMEDICINE [facility], [address] [place] [address], [id number] , [place] tel:[phone] [facility] Back Pain (chief complaint) rodent exterminator (current) use of opiate analgesicPostl aminectomy syndrome, not elsewhere classifiedOthe r intervertebral disc degeneration, lumbar region 1 Ney Quinones. [address] [place] [address], [id number], [place]. tel:[phone] Consulting Provider: Lucas Talamantes, [facility] [address] Prof Merc[address] [address], [place], [address]. tel:[phone] ring Provider: Emir Espinal, [address] [place] [address], [address]. tel:[phone] OFFICE VISIT, EST TELEMEDICINE [facility], [address] [place] [address], [id number] , [place] tel:[phone] [facility] Back Pain (chief complaint) care home (current) use of opiate analgesicPostl aminectomy syndrome, not elsewhere classifiedSacr oiliitis, not elsewhere classifiedOthe r intervertebral disc degeneration, lumbosacral region Aug- 1 Jonah Craig. [address] [place] [address], [id number], [place]. tel:[phone] Consulting Provider: Lucas Talamantes, [address] Carmel Mercado [address] [address], [place], [address]. tel:[phone] ring Provider: Emir Espinal, [address] [place] [address], [id number]. tel:[phone] [facility], [address] [place] [address], [id number] , [place] tel:[phone] [facility] Encounter for therapeutic drug level monitoringLong term (current) use of opiate analgesic Clifford- 1 Jonah Craig. [address] [place] [address], [id number], [place]. tel:[phone] Referring Provider: Emir Espinal, [address] [place] [address], [id number]. tel:[phone] OFFICE/OUTPAT IENT VISIT, EST [facility], [address] [place] [address], [id number] , [place] tel:[phone] [facility] Back Pain (chief complaint) rodent exterminator (current) use of opiate analgesicPostl aminectomy syndrome, not elsewhere classifiedSacr oiliitis, not elsewhere classifiedOthe r intervertebral disc degeneration, lumbosacral regionEncounte r for therapeutic drug level monitoring 1 Jonah Craig. [address] [place] [address], [id number], [place]. tel:[phone] Consulting Provider: Lucas Talamantes, [address] Prof Merc[address] [address], [place], [address]. tel:[phone] ring Provider: Emir Espinal, [address] [place] [address], [address]. tel:[phone] OFFICE VISIT, EST TELEMEDICINE [facility], [address] [place] [address], [id number] , [place] tel:[phone] [facility] Back Pain (chief complaint) care home (current) use of opiate analgesicPostl aminectomy syndrome, not elsewhere classifiedSacr oiliitis, not elsewhere classifiedOthe r intervertebral disc degeneration, lumbosacral region 1 Jonah Craig. [address] [place] [address], [id number], [place]. tel:[phone] Consulting Provider: Lucas Talamantes, [address] E Prof Mercado [address] [place] [address], [place], [address]. tel:[phone] ring Provider: Emir Espinal, [address] [place] [address], [address]. tel:[phone] OFFICE VISIT, EST TELEMEDICINE [facility], [address] [place] [address], [id number] , [place] tel:[phone] [facility] Back Pain (chief complaint) Postlaminectom y syndrome, not elsewhere classifiedSacr oiliitis, not elsewhere classifiedOthe r intervertebral disc degeneration, lumbosacral regionLong term (current) use of opiate analgesic May- 1 Jonah Craig. [address] [place] [address], [id number], [place]. tel:[phone] Consulting Provider: Lucas Talamantes, [address] E Prof Mercado [address], [place], [address]. tel:[phone] ring Provider: Emir Espinal, [address] [place] [address], [id number]. tel:[phone] OFFICE VISIT, EST TELEMEDICINE [facility], [address] [place] [address], [id number] , [place] [phone] [facility] [place] Back Pain (chief complaint) Postlaminectom y syndrome, not elsewhere classifiedSacr oiliitis, not elsewhere classifiedOthe r intervertebral disc degeneration, lumbosacral regionLong term (current) use of opiate analgesic 1 Jonah Craig. [address] [place] [address], [id number], [place]. tel:[phone] Consulting Provider: Lucas Talamantes, [address] E Prof Oliverosdg [address] [facility], [place], [address]. tel:[phone] ring Provider: Emir Espinal, [address] [place] [address], [id number]. tel:[phone] OFFICE VISIT, EST TELEMEDICINE [facility], [address] [place] [address], [id number] , [place] tel:[phone] [facility] Back Pain (chief complaint) Postlaminectom y syndrome, not elsewhere classifiedSacr oiliitis, not elsewhere classifiedOthe r intervertebral disc degeneration, lumbosacral regionLong term (current) use of opiate analgesic 1 Jonah Craig. [address] [place] [address], [id number], [place]. tel:[phone] Consulting Provider: Lucas Talamantes, [address] [facility], [place], [address]. tel:[phone] ring Provider: Emir Espinal, [address] [place] [address], [id number]. tel:[phone] OFFICE VISIT, EST TELEMEDICINE [facility], [address] [place] [address], [id number] , [place] [phone] [facility] Back Pain (chief complaint) care home (current) use of opiate analgesicPostl aminectomy syndrome, not elsewhere classifiedSacr oiliitis, not elsewhere classifiedOthe r intervertebral disc degeneration, lumbosacral region 1 Jonah Craig. [address] [place] [address], [id number], [place]. tel:[phone] Consulting Provider: Lucas Talamantes, [address] Prof Mercado [address], [address]. tel:[phone] ring Provider: Emir Espinal, [address] [place] [address], [id number]. tel:[phone] OFFICE VISIT, EST TELEMEDICINE [facility], [address] [place] [address], [id number] , [place] [phone] [facility] Back [facility] (chief complaint) rodent exterminator (current) use of opiate analgesicPostl aminectomy syndrome, not elsewhere classifiedSacr oiliitis, not elsewhere classifiedOthe r intervertebral disc degeneration, lumbosacral region 0 Jonah Craig. [address] [place] [address], [id number], [place]. tel:[phone] Consulting Provider: Lucas Talamantes, [address] Prof Mercado [address] [address], [place], [address]. tel:[phone] ring Provider: Emir Espinal, [address] [place] [address], [address]. tel:[phone] OFFICE VISIT, EST TELEMEDICINE [facility], [address] [place] [address], [id number] , [place] tel:[phone] [facility] Back Pain (chief complaint) care home (current) use of opiate analgesicPostl aminectomy syndrome, not elsewhere classifiedSacr oiliitis, not elsewhere classifiedOthe r intervertebral disc degeneration, lumbosacral region Jan- 0 Jonah Pastorberoberto carlos Craig. [address] [place] [address], [id number], . tel:[phone] Referring Provider: Emir Espinal, [address] [place] [address], [address]. tel:[phone] OFFICE VISIT, [facility] TELEMEDICINE [facility], [address] [place] [address], [id number] , [place] tel:[phone] [facility] Back Pain (chief complaint) rodent exterminator (current) use of opiate analgesicPostl aminectomy syndrome, not elsewhere classifiedSacr oiliitis, not elsewhere classifiedOthe r intervertebral disc degeneration, lumbosacral region 0 Jonah Craig. [address] [place] [address], [id number], [place]. tel:[phone] Referring Provider: Emri Espinal, [address] [place] [address], [address]. tel:[phone] OFFICE VISIT, [facility], [address] [place] [address], [id number] , [place] tel:[phone] [facility] Back Pain (chief complaint) care home (current) use of opiate analgesicPostl aminectomy syndrome, not elsewhere classifiedSacr oiliitis, not elsewhere classifiedOthe r intervertebral disc degeneration, lumbosacral region Oct-2 0 Jonah Craig. [address] [place] [address], [id number], [place]. tel:[phone] Referring Provider: Emir Espinal, [address] [place] [address], [address]. tel:[phone] OFFICE/OUTPAT IENT VISIT, [facility], [address] [place] [address], [id number] , [place] tel:[phone] [facility] Back Pain (chief complaint) care home (current) use of opiate analgesicPostl aminectomy syndrome, not elsewhere classifiedSacr oiliitis, not elsewhere classifiedOthe r intervertebral disc degeneration, lumbosacral region 0 Jonah Craig. [address] [place] [address], [id number], [place]. tel:[phone] Referring Provider: Emir Espinal, [address] [place] [address], [address]. tel:[phone] OFFICE VISIT, EST TELEMEDICINE [facility], [address] [place] [address], [id number] , [place] tel:[phone] [facility] Back Pain (chief complaint) care home (current) use of opiate analgesicPostl aminectomy syndrome, not elsewhere classifiedSacr oiliitis, not elsewhere classifiedOthe r intervertebral disc degeneration, lumbosacral region 0 Jonah Craig. [address] [place] [address], [id number], [place]. tel:[phone] Consulting Provider: Lucas Talamantes [facility], [facility] [place] [address] [facility] [address] [address], [place], [address]. tel:[phone] ring Provider: Emir Espinal, [address] [place] [address], [id number]. tel:[phone] OFFICE VISIT, EST TELEMEDICINE [facility], [address] [place] [address], [id number] , [place] tel:[phone] [facility] Back Pain (chief complaint) care home (current) use of opiate analgesicPostl aminectomy syndrome, not elsewhere classifiedSacr oiliitis, not elsewhere classifiedOthe r intervertebral disc degeneration, lumbosacral region 0 Jonah Craig. [address] [place] [address], [id number], [place]. tel:[phone] Referring Provider: Emir Espinal, [address] [place] [address], [address]. tel:[phone] OFFICE VISIT, EST TELEMEDICINE [facility], [address] [place] [address], [id number] , [place] tel:[phone] [facility] Back Pain (chief complaint) rodent exterminator (current) use of opiate analgesicPostl aminectomy syndrome, not elsewhere classifiedSacr oiliitis, not elsewhere classifiedOthe r intervertebral disc degeneration, lumbosacral region May-2 0-202 0 Jonah Craig. [address] [place] [address], [id number], [place]. tel:[phone] Consulting Provider: Lucas AU, [address], [facility]. tel:[phone] ring Provider: Emir Espinal, [address] [place] [address], [address]. tel:[phone] OFFICE VISIT, EST TELEMEDICINE [facility], [address] [place] [address], [id number] , [place] tel:[phone] [facility] Back Pain (chief complaint) rodent exterminator (current) use of opiate analgesicPostl aminectomy syndrome, not elsewhere classifiedSacr oiliitis, not elsewhere classifiedOthe r intervertebral disc degeneration, lumbosacral region Apr-2 2-202 0 Jonah Craig. [address] [place] [address], [id number], [place]. tel:[phone] Consulting Provider: Lucas AU, [address], [facility]. tel:[phone] ring Provider: Emir Espinal, [address] [place] [address], [address]. tel:[phone] OFFICE VISIT, EST TELEMEDICINE [facility], [address] [place] [address], [id number] , [place] tel:[phone] [facility] Back Pain (chief complaint) care home (current) use of opiate analgesicPostl aminectomy syndrome, not elsewhere classifiedSacr oiliitis, not elsewhere classifiedOthe r intervertebral disc degeneration, lumbosacral region Mar-2 6-202 0 Jonah Craig. [address] [place] [address], [id number], [place]. tel:[phone] Consulting Provider: Lucas AU, [address] [facility], [place], [address]. tel:[phone] ring Provider: Emir Espinal, [address] [place] [address], [address]. tel:[phone] OFFICE/OUTPAT IENT VISIT, [facility], [address] [place] [address], [id number] , [place] tel:[phone] [facility] Back Pain (chief complaint) rodent exterminator (current) use of opiate analgesicEncou nter for therapeutic drug level monitoringPost laminectomy syndrome, not elsewhere classifiedSacr oiliitis, not elsewhere classifiedOthe r intervertebral disc degeneration, lumbosacral region 0 Jonah Craig. [address] [place] [address], [id number], [place]. tel:[phone] Consulting Provider: Lucas AU, [address] Prof Oliverosdg [address] [place] [address], [place], [address]. tel:[phone] ring Provider: Emir Espinal, [address] [place] [address], [id number]. tel:[phone] OFFICE/OUTPAT IENT VISIT, [facility], [address] [place] [address], [id number] , [place] tel:[phone] [facility] Back Pain (chief complaint) rodent exterminator (current) use of opiate analgesicPostl aminectomy syndrome, not elsewhere classifiedSacr oiliitis, not elsewhere classifiedOthe r intervertebral disc degeneration, lumbosacral region 0 Jonah Craig. [address] [place] [address], [id number], [place]. tel:[phone] Consulting Provider: Lucas AU, [address] [place] [address], [place], [address]. tel:[phone] Provider: Emir Espinal, [address] [place] [address], [address]. tel:[phone] OFFICE/OUTPAT IENT VISIT, [facility], [address] [place] [address], [id number] , [place] [phone] [facility] Back Pain (chief complaint) care home (current) use of opiate analgesicSacro iliitis, not elsewhere classifiedOthe r intervertebral disc degeneration, lumbosacral regionPostlami nectomy syndrome, not elsewhere classified 0201 9 Jonah Overberoberto carlos Craig. [address] [place] [address], [id number], [place]. tel:[phone] Consulting Provider: Lucas AU, [address] Prof Merc[address], [address]. tel:[phone] Provider: Emir Espinal, [address] [place] [address], [id number]. tel:[phone] OFFICE/OUTPAT IENT VISIT, [facility], [address] [place] [address], [id number] , [place] [phone] [facility] Back Pain (chief complaint) rodent exterminator (current) use of opiate analgesicLow back painSacroiliit is, not elsewhere classifiedPost laminectomy syndrome, not elsewhere classifiedOthe r intervertebral disc degeneration, lumbosacral region 9 Jonah Overbeke Kiara. [address] [place] [address], [id number], [place]. tel:[phone] Consulting Provider: Lucas AU, [address] Prof Mercado [address] [place] [address], [place], [address]. tel:[phone] ring Provider: Emir Espinal, [address] [place] [address], [address]. tel:[phone] OFFICE/OUTPAT IENT VISIT, [facility], [address] [place] [address], [id number] , [place] tel:[phone] [facility] Back Pain (chief complaint) care home (current) use of opiate analgesicLow back painSacroiliit is, not elsewhere classifiedOthe r intervertebral disc degeneration, lumbosacral regionPostlami nectomy syndrome, not elsewhere classified Jonah Craig. [address] [place] [address], [id number], [place]. tel:[phone] Consulting Provider: Lucas AU, [address] [facility], [place], [address]. tel:[phone] ring Provider: Emir Espinal, [address] [place] [address], [address]. tel:[phone] OFFICE/OUTPAT IENT VISIT, EST [facility], [address] [place] [address], [id number] , [place] tel:[phone] [facility] Back Pain (chief complaint) Postlaminectom y syndrome, not elsewhere classifiedOthe r intervertebral disc degeneration, lumbosacral regionSacroili itis, not elsewhere classifiedLow back painLong term (current) use of opiate analgesicEncou nter for therapeutic drug level monitoring Jonah Craig. [address] [place] [address], [id number], [place]. tel:[phone] Consulting Provider: Lucas AU, [address] [address], [place], [address]. tel:[phone] ring Provider: Emir Espinal, [address] [place] [address], [address]. tel:[phone] OFFICE/OUTPAT IENT VISIT, EST [facility], [address] [place] [address], [id number] , [place] tel:[phone] [facility] Back Pain (chief complaint) Postlaminectom y syndrome, not elsewhere classifiedOthe r intervertebral disc degeneration, lumbosacral regionSacroili itis, not elsewhere classifiedLow back painLong term (current) use of opiate analgesic 9 Jonah Craig. [address] [place] [address], [id number], [place]. tel:[phone] Consulting Provider: Lucas AU, [facility] [address] 675 [facility] [address], [place], [address]. tel:[phone] ring Provider: Emir Esipnal, [address] [place] [address], [address]. tel:[phone] OFFICE/OUTPAT IENT VISIT, [facility], [address] [place] [address], [id number] , [place] tel:[phone] [facility] Back Pain (chief complaint) Postlaminectom y syndrome, not elsewhere classifiedOthe r intervertebral disc degeneration, lumbosacral regionSacroili itis, not elsewhere classifiedLow back painLong term (current) use of opiate analgesic 9 Jonah Craig. [address] [place] [address], [id number], [place]. tel:[phone] Consulting Provider: Lucas AU, [address] 675 [facility] [address], [place], [address]. tel:[phone] ring Provider: Emir Espinal, [address] [place] [address], [address]. tel:[phone] OFFICE/OUTPAT IENT VISIT, [facility], [address] [place] [address], [id number] , [place] tel:[phone] [facility] Back Pain (chief complaint) Postlaminectom y syndrome, not elsewhere classifiedOthe r intervertebral disc degeneration, lumbosacral regionSacroili itis, not elsewhere classifiedLow back painLong term (current) use of opiate analgesic 9 Jonah Craig. [address] [place] [address], [id number], [place]. tel:[phone] Consulting Provider: Lucas AU, [address] Carmel Mercado [address] [place] [address], [place], [address]. tel:[phone] ring Provider: Emir Espinal, [address] [place] [address], [address]. tel:[phone] OFFICE/OUTPAT IENT VISIT, [facility], [address] [place] [address], [id number] , [place] tel:[phone] [facility] Back Pain (chief complaint) Postlaminectom y syndrome, not elsewhere classifiedOthe r intervertebral disc degeneration, lumbosacral regionSacroili itis, not elsewhere classifiedLow back painLong term (current) use of opiate analgesicEncou nter for therapeutic drug level monitoring Jonah Craig. [address] [place] [address], [id number], [place]. tel:[phone] Consulting Provider: Lucas AU, [address] Carmel Mercado [facility] [address] [address], [place], [address]. tel:[phone] ring Provider: Emir Espinal, [address] [place] [address], [address]. tel:[phone] OFFICE/OUTPAT IENT VISIT, [facility], [address] [place] [address], [id number] , [place] tel:[phone] [facility] Back Pain (chief complaint) Postlaminectom y syndrome, not elsewhere classifiedOthe r intervertebral disc degeneration, lumbosacral regionSacroili itis, not elsewhere classifiedLow back painLong term (current) use of opiate analgesic Jonah Overberoberto carlos Kiara. [address] [place] [address], [id number], [place]. tel:[phone] Consulting Provider: Lucas AU, [address] [facility], [place], [address]. tel:[phone] ring Provider: Emir Espinal, [address] [place] [address], [id number]. tel:[phone] OFFICE/OUTPAT IENT VISIT, [facility], [address] [place] [address], [id number] , [place] tel:[phone] [facility] Back Pain (chief complaint) Sacroiliitis, not elsewhere classifiedPost laminectomy syndrome, not elsewhere classifiedOthe r intervertebral disc degeneration, lumbosacral regionLow back painLong term (current) use of opiate analgesic Dec-0 8 Jonah Pastorberoberto carlos Craig. [address] [place] [address], [id number], [place]. tel:[phone] Consulting Provider: Lucas AU, [address] Prof Merc[address] [place] [address], [place], [address]. tel:[phone] ring Provider: Emir Espinal, [address] [place] [address], [address]. tel:[phone] OFFICE/OUTPAT IENT VISIT, [facility], [address] [place] [address], [id number] , [place] tel:[phone] [facility] Back Pain (chief complaint) Sacroiliitis, not elsewhere classifiedPost laminectomy syndrome, not elsewhere classifiedOthe r intervertebral disc degeneration, lumbosacral regionLow back pain Nov-0 8 Jonah Craig. [address] [place] [address], [id number], [place]. tel:[phone] Consulting Provider: Lucas AU, [address] [place] [address], [place], [address]. tel:[phone] ring Provider: Emir Espinal, [address] [place] [address], [address]. [phone] OFFICE/OUTPAT IENT VISIT, EST [facility], [address] [place] [address], [id number] , [place] tel:[phone] [facility] Back Pain (chief complaint) Sacroiliitis, not elsewhere classifiedPost laminectomy syndrome, not elsewhere classifiedOthe r intervertebral disc degeneration, lumbosacral regionLow back pain Nov- 8 Van Overbeke Kiara. [address] [place] [address], [id number], [place]. tel:[phone] Consulting Provider: Lucas AU, [address], [address]. tel:[phone] ring Provider: Emir Espinal, [address] [place] [address], [address]. [phone] OFFICE/OUTPAT IENT VISIT, [facility], [address] [place] [address], [id number] , [place] tel:[phone] [facility] Back Pain (chief complaint) Sacroiliitis, not elsewhere classifiedPost laminectomy syndrome, not elsewhere classifiedOthe r intervertebral disc degeneration, lumbosacral regionLow back pain Sep- 8 Jonah Pastorberoberto carlos Craig. [address] [place] [address], [id number], [place]. tel:[phone] Consulting Provider: Lucas AU, [address] [address], [place], [address]. tel:[phone] ring Provider: Emir Espinal, [address] [place] [address], [address]. tel:[phone] OFFICE/OUTPAT IENT VISIT, [facility], [address] [place] [address], [id number] , [place] [phone] [facility] [place] Back Pain (chief complaint) Sacroiliitis, not elsewhere classifiedPost laminectomy syndrome, not elsewhere classifiedLow back painOther intervertebral disc degeneration, lumbosacral region 8 Jonah Craig. [address] [place] [address], [id number], [place]. tel:[phone] Consulting Provider: Lucas AU, [address] Prof Mercado [address] [facility], [place], [address]. tel:[phone] ring Provider: Emir Espinal, [address] [place] [address], [address]. tel:[phone] OFFICE/OUTPAT IENT VISIT, [facility], [address] [place] [address], [id number] , [place] tel:[phone] [facility] [place] Back Pain (chief complaint) Sacroiliitis, not elsewhere classifiedPost laminectomy syndrome, not elsewhere classifiedLow back painOther intervertebral disc degeneration, lumbosacral region 8 Jonah Craig. [address] [place] [address], [id number], [place]. tel:[phone] Consulting Provider: Lucas AU, [address] Prof Merc[address] [place] [address], [place], [address]. tel:[phone] ring Provider: Emir Espinal, [address] [place] [address], [address]. tel:[phone] OFFICE/OUTPAT IENT VISIT, [facility], [address] [place] [address], [id number] , [place] tel:[phone] [facility] [place] Back Pain (chief complaint) Postlaminectom y syndrome, not elsewhere classifiedLow back painSacroiliit is, not elsewhere classified Fe 8 Jonah Craig. [address] [place] [address], [id number], [place]. tel:[phone] Consulting Provider: Lucas AU, [address] [facility], [place], [address]. tel:[phone] ring Provider: Emir Espinal, [address] [place] [address], [address]. tel:[phone] OFFICE/OUTPAT IENT VISIT, [facility], [address] [place] [address], [id number] , [place] [phone] [facility] [place] Back Pain (chief complaint) Postlaminectom y syndrome, not elsewhere classifiedSacr oiliitis, not elsewhere classifiedOthe r intervertebral disc degeneration, lumbosacral region 8 Van Overbeke Kiara. [address] [place] [address], [id number], [place]. tel:[phone] Referring Provider: Emir Espinal, [address] [place] [address], [address]. tel:[phone] OFFICE/OUTPAT IENT VISIT, [facility], [address] [place] [address], [id number] , [place] [phone] [facility] [place] Back Pain (chief complaint) Postlaminectom y syndrome, not elsewhere classifiedSacr oiliitis, not elsewhere classifiedOthe r intervertebral disc degeneration, lumbosacral region Jonah Pastorberoberto carlos Kiara. [address] [place] [address], [id number], [place]. tel:[phone] Referring Provider: Emir Espinal, [address] [place] [address], [address]. tel:[phone] OFFICE/OUTPAT IENT VISIT, [facility], [address] [place] [address], [id number] , [place] [phone] [facility] [place] Back Pain (chief complaint) Postlaminectom y syndrome, not elsewhere classifiedSacr oiliitis, not elsewhere classifiedOthe r intervertebral disc degeneration, lumbosacral region 7 Jonah Overbeke Kiara. [address] [place] [address], [id number], [place]. tel:[phone] Consulting Provider: Lucas AU, [facility] [address] [address] [address] [facility] [address], [place], [address]. tel:[phone] Provider: Emir Espinal, [address] [place] [address], [address]. tel:[phone] OFFICE/OUTPAT IENT VISIT, [facility], [address] [place] [address], [id number] , [place] tel:[phone] [facility] [place] Back Pain (chief complaint) Postlaminectom y syndrome, not elsewhere classifiedOthe r intervertebral disc degeneration, lumbosacral regionSacroili itis, not elsewhere classifiedLong term (current) use of opiate analgesic 7 Jonah Craig. [address] [place] [address], [id number], [place]. tel:[phone] Referring Provider: Emir Espinal, [address] [place] [address], [address]. tel:[phone] OFFICE/OUTPAT IENT VISIT, [facility], [address] [place] [address], [id number] , [place] tel:[phone] [facility] [place] Back Pain (chief complaint) Postlaminectom y syndrome, not elsewhere classifiedOthe r intervertebral disc degeneration, lumbosacral regionSacroili itis, not elsewhere classified 7 Ney Quinones. [address] [place] [address], [id number], [place]. tel:[phone] Consulting Provider: Lucas AU, [facility] [address] [address] [address] [facility] [address], [place], [address]. tel:[phone] ring Provider: Emir Espinal, [address] [place] [address], [address]. tel:[phone] OFFICE/OUTPAT IENT VISIT, [facility], [address] [place] [address], [id number] , [place] tel:[phone] [facility] [place] Back Pain (chief complaint) Postlaminectom y syndrome, not elsewhere classifiedOthe r intervertebral disc degeneration, lumbosacral region 7 Jonah Wilmer Craig. [address] [place] [address], [id number], [place]. tel:[phone] Referring Provider: Emir Espinal, [address] [place] [address], [address]. tel:[phone] OFFICE/OUTPAT IENT VISIT, EST [facility], [address] [place] [address], [id number] , [place] tel:[phone] [facility] [place] Back Pain (chief complaint) Postlaminectom y syndrome, not elsewhere classifiedOthe r intervertebral disc degeneration, lumbosacral region 7 Ney Quinones. [address] [place] [address], [id number], [place]. tel:[phone] Consulting Provider: Lucas AU, [facility] [address], [address]. tel:[phone] Provider: Emir Espinal, [address] [place] [address], [address]. tel:[phone] OFFICE/OUTPAT IENT VISIT, EST [facility], [address] [place] [address], [id number] , [place] tel:[phone] [facility] [place] low back pain (chief complaint) Postlaminectom y syndrome, not elsewhere classifiedLow back pain 7 Ney Quinones. [address] [place] [address], [id number], [place]. tel:[phone] Consulting Provider: Lucas AU, [facility] [address] [facility], [place], [address]. tel:[phone] Provider: Emir Espinal, [address] [place] [address], [id number]. tel:[phone] OFFICE/OUTPAT IENT VISIT, [facility], [address] [place] [address], [id number] , [place] [phone] [facility] low back pain (chief complaint) Low back painPostlamine ctomy syndrome, not elsewhere classified Ney Stacie. [address] [place] [address], [id number], [place]. tel:[phone] Referring Provider: Emir Espinal, [address] [place] [address], [address]. tel:[phone] OFFICE/OUTPAT IENT VISIT, [facility], [address] [place] [address], [id number] , [place] [phone] [facility] low back pain (chief complaint) Low back painPostlamine ctomy syndrome, not elsewhere classified Ney Stacie. [address] [place] [address], [id number], [place]. tel:[phone] Consulting Provider: Lucas AU, [facility] [address], [address]. tel:[phone] ring Provider: Emir Espinal, [address] [place] [address], [address]. tel:[phone] OFFICE/OUTPAT IENT VISIT, [facility], [address] [place] [address], [id number] , [place] [phone] [facility] Back Pain (chief complaint) Postlaminectom y syndrome, not elsewhere classified 7 Ney Stacie. [address] [place] [address], [id number], [place]. tel:[phone] Consulting Provider: Lucas AU, [facility] [address], [address]. tel:[phone] ring Provider: Emir Espinal, [address] [place] [address], [address]. tel:[phone] OFFICE/OUTPAT IENT VISIT, [facility], [address] [place] [address], [id number] , [place] [phone] [facility] [place] Back Pain (chief complaint) Postlaminectom y syndrome, not elsewhere classifiedLong term (current) use of opiate analgesic 7 Ever Medina. [address] [place] [address], [id number], [place]. tel:[phone] Consulting Provider: Lucas AU, [address] [place] [address], [place], [address]. tel:[phone] ring Provider: Emir Espinal, [address] [place] [address], [address]. tel:[phone] OFFICE/OUTPAT IENT VISIT, [facility], [address] [place] [address], [id number] , [place] tel:[phone] [facility] low back pain (chief complaint) Low back painPostlamine ctomy syndrome, not elsewhere classified 7 Ney Quinones. [address] [place] [address], [id number], [place]. tel:[phone] Consulting Provider: Lucas AU, [facility] [address] [facility], [place], [address]. tel:[phone] ring Provider: Emir Espinal, [address] [place] [address], [address]. tel:[phone] OFFICE/OUTPAT IENT VISIT, [facility], [address] [place] [address], [id number] , [place] tel:[phone] [facility] ([facility] complaint) Low back painPostlamine ctomy syndrome, not elsewhere classified 6 Ney Stacie. [address], [place], [id number], [place]. tel:[phone] Consulting Provider: Lucas AU, [facility] [address] [facility] [address], [place], [address]. tel:[phone] ring Provider: Emir Espinal, [address] [place] [address], [address]. tel:[phone] OFFICE/OUTPAT IENT VISIT, [facility], [address] [place] [address], [id number] , [place] tel:[phone] [facility] low back pain (chief complaint) Low back painPostlamine ctomy syndrome, not elsewhere classified 6 Ney Quinones. [address], [place], [id number], [place]. tel:[phone] Consulting Provider: Lucas AU, [address] [facility] [address], [place], [address]. tel:[phone] ring Provider: Emir Espinal, [address] [place] [address], [address]. tel:[phone] OFFICE/OUTPAT IENT VISIT, [facility], [address] [place] [address], [id number] , [place] tel:[phone] [facility] low back pain (chief complaint) Other cervical disc degeneration, high cervical regionLow back painPostlamine ctomy syndrome, not elsewhere classified 6 Ney Quinones. [address] [place] [address], [id number], [place]. tel:[phone] Consulting Provider: Lucas AU, [facility] [address] [facility] [address], [place], [address]. tel:[phone] ring Provider: Emir Espinal, [address] [place] [address], [address]. tel:[phone] OFFICE/OUTPAT IENT VISIT, EST [facility], [address] [place] [address], [id number] , [place] [phone] [facility] [place] Neck pain (chief complaint) low back pain (chief complaint) Other cervical disc degeneration, high cervical regionLow back painPostlamine ctomy syndrome, not elsewhere classified Oct- 0-201 6 Ney Quinones. [address] [place] [address], [id number], [place]. tel:[phone] Consulting Provider: Lucas AU, [facility] [address] [place] [address], [place], [address]. tel:[phone] Provider: Emir Espinal, [address] [place] [address], [address]. tel:[phone] OFFICE/OUTPAT IENT VISIT, [facility], [address] [place] [address], [id number] , [place] tel:[phone] [facility] low back pain (chief complaint) Postlaminectom y syndrome, not elsewhere classifiedLow back painLong term (current) use of opiate analgesic Sep-0 9- 6 Yasir Beth. [address] [place] [address], [id number], [place]. tel:[phone] Consulting Provider: Lucas AU, [facility] [address] [facility], [place], [address]. tel:[phone] Provider: Emir Espinal, [address] [place] [address], [address]. tel:[phone] OFFICE/OUTPAT IENT VISIT, [facility], [address] [place] [address], [id number] , [place] [phone] [facility] [place] low back pain (chief complaint) Postlaminectom y syndrome, not elsewhere classifiedLow back pain 6 Yasir Campos. [address] [place] [address], [id number], [place]. tel:[phone] Referring Provider: Emir Espinal, [address] [place] [address], [address]. tel:[phone] OFFICE/OUTPAT IENT VISIT, [facility], [address] [place] [address], [id number] , [place] tel:[phone] [facility] [place] [facility] low back pain (chief complaint) Postlaminectom y syndrome, not elsewhere classifiedLow back pain 6 Yasir Campos. [address] [place] [address], [id number], [place]. tel:[phone] Consulting Provider: Lucas AU, [facility] [address], [address]. tel:[phone] ring Provider: Emir Espinal, [address] [place] [address], [address]. tel:[phone] OFFICE/OUTPAT IENT VISIT, [facility], [address] [place] [address], [id number] , [place] tel:[phone] [facility] [place] low back pain (chief complaint) Low back painPostlamine ctomy syndrome, not elsewhere classified 6 Ney Stacie. [address] [place] [address], [id number], [place]. tel:[phone] Consulting Provider: Lucas AU, [facility] [address], [address]. tel:[phone] ring Provider: Emir Espinal, [address] [place] [address], [address]. tel:[phone] OFFICE/OUTPAT IENT VISIT, [facility], [address] [place] [address], [id number] , [place] tel:[phone] [facility] low back pain (chief complaint) Low back painPostlamine ctomy syndrome, not elsewhere classified 6 Ney Stacie. [address], [place], [id number], [place]. tel:[phone] Consulting Provider: Lucas AU, [facility] [address] [facility] [address], [place], [address]. tel:[phone] ring Provider: Emir Espinal, [address] [place] [address], [address]. tel:[phone] OFFICE/OUTPAT IENT VISIT, [facility], [address] [place] [address], [id number] , [place] tel:[phone] [facility] low back pain (chief complaint) Postlaminectom y syndrome, not elsewhere classifiedLow back pain 6 Yasir Beth. [address], [place], [id number], [place]. tel:[phone] Consulting Provider: Lucas AU, [address] [facility], [place], [address]. tel:[phone] ring Provider: Emir Espinal, [address] [place] [address], [address]. tel:[phone] OFFICE/OUTPAT IENT VISIT, [facility], [address] [place] [address], [id number] , [place] tel:[phone] [facility] low back pain (chief complaint) Low back painPostlamine ctomy syndrome, not elsewhere classified 6 Ney Morgana. [address], [place], [id number], [place]. tel:[phone] Consulting Provider: Lucas AU, [address] [facility], [place], [address]. tel:[phone] Provider: Emir Espinal, [address] [place] [address], [address]. tel:[phone] OFFICE/OUTPAT IENT VISIT, [facility], [address] [place] [address], [id number] , [place] [phone] [facility] low back pain (chief complaint) Low back pain 6 Ney Stacie. [address], [place], [id number], [place]. tel:[phone] Consulting Provider: Lucas AU, [facility] [address] [address], [place], [address]. tel:[phone] Provider: Emir Espinal, [address] [place] [address], [address]. tel:[phone] OFFICE/OUTPAT IENT VISIT, [facility], [address] [place] [address], [id number] , [place] [phone] [facility] low back pain (chief complaint) Low back painPostlamine ctomy syndrome, not elsewhere classified 6 Ney Stacie. [address], [place], [id number], [place]. tel:[phone] Consulting Provider: Lucas AU, [facility] [address] [address], [place], [address]. tel:[phone] Provider: Emir Espinal, [address] [place] [address], [address]. tel:[phone] OFFICE/OUTPAT IENT VISIT, [facility], [address] [place] [address], [id number] , [place] tel:[phone] [facility] low back pain (chief complaint) Low back painPostlamine ctomy syndrome, not elsewhere classified 5 Ney Quinones. [address], [place], [id number], [place]. tel:[phone] Consulting Provider: Lucas AU, [facility] [address], [place], [address]. tel:[phone] ring Provider: Emir Espinal, [address] [place], [address]. [phone] OFFICE/OUTPAT IENT VISIT, [facility], [address] [place] [address], [id number] , [place] [phone] [facility] low back pain (chief complaint) Trochanteric bursitis, right hipTrochanteri c bursitis, left hipLow back painPostlamine ctomy syndrome, not elsewhere classified 5 Ney Quinones. [address], [place], [id number], [place]. tel:[phone] Consulting Provider: Lucas AU, [address], [place], [address]. [phone] [facility] Provider: Emir Espinal, [address] [place], [address]. [phone] OFFICE/OUTPAT IENT VISIT, [facility], [address], [place], [id number] , [place] tel:[phone] [facility] low back pain (chief complaint) Low back painPostlamine ctomy syndrome, not elsewhere classified 5 Ney Quinones. [address], [place], [id number], [place]. tel:[phone] Consulting Provider: Lucas AU, [facility] [address], [place], [address]. [phone] ring Provider: Emir Espinal, [address] [place] [address], [address]. tel:[phone] OFFICE/OUTPAT IENT VISIT, [facility], [address] [place] [address], [id number] , [place] tel:[phone] [facility] [place] low back pain (chief complaint) LumbagoPostlam inectomy syndrome of lumbar region Sep-2 1-201 5 Ney Stacie. [address], [place], [id number], [place]. tel:[phone] Consulting Provider: Lucas AU, [address] [address], [place], [address]. tel:[phone] Provider: Emir Espinal, [address] [place] [address], [address]. tel:[phone] OFFICE/OUTPAT IENT VISIT, [facility], [address] [place] [address], [id number] , [place] tel:[phone] [facility] low back pain (chief complaint) LumbagoPostlam inectomy syndrome of lumbar regionEncounte r for current watermaster use of high risk medication Sep-0 3-201 5 Ney Stacie. [address], [place], [id number], [place]. tel:[phone] Consulting Provider: Lucas AU, [address] [address], [place], [address]. tel:[phone] ring Provider: Emir Espinal, [address] [place] [address], [address]. tel:[phone] OFFICE/OUTPAT IENT VISIT, [facility], [address] [place] [address], [id number] , [place] tel:[phone] [facility] low back pain (chief complaint) LumbagoPostlam inectomy syndrome of lumbar region Aug-0 3-201 5 Ney Quinones. [address] [place] [address], [id number], [place]. tel:[phone] Consulting Provider: Lucas AU, [address] [facility], [place], [address]. tel:[phone] ring Provider: Emir Espinal, [address] [place] [address], [address]. [phone] OFFICE/OUTPAT IENT VISIT, [facility], [address] [place] [address], [id number] , [place] [phone] [facility] [place] Back Pain (chief complaint) Lumbar failed back surgery syndrome 5 No Information Consulting Provider: Lucas AU, [address] [facility], [place], [address]. tel:[phone] ring Provider: Emir Espinal, [address] [place] [address], [address]. tel:[phone] OFFICE/OUTPAT IENT VISIT, [facility], [address] [place] [address], [id number] , [place] tel:[phone] [facility] Back Pain (chief complaint) Lumbar failed back surgery syndromeEncoun ter for current nursing home use of high risk medication 5 No Information Referring Provider: Emir Espinal, [address] [place] [address], [address]. tel:[phone] OFFICE/OUTPAT IENT VISIT, [facility], [address] [place] [address], [id number] , [place] tel:[phone] [facility] low back pain (chief complaint) Lumbar failed back surgery syndrome 5 No Information Referring Provider: Emir Espinal, [address] [place] [address], [address]. tel:[phone] OFFICE/OUTPAT IENT VISIT, NEW [facility], [address], [place], [id number] , [place] tel:[phone] [facility] [place] Back Pain (chief complaint) Lumbar failed back surgery syndromeEncoun ter for current watermaster use of high risk medication No Information Referring Provider: Emir Espinal, [address] [place], [address]. [phone] Family History Family Member Type Diagnosis Age At Onset No Information Payers Payer name Insurance type Covered democrat ID Authoriza tion(s) [employer] Replacement To 16 [id number] Social History Type Description Quantity Date Captured [...] Goal Weight. Due on d ue Goal SAFETY EQUIPMENT TESTER Paperwork. Due on due Goal PRESS OFFICER Scanned. Due on 023 due Goal ALT [...] e Goal HPV. Due on due Goal PRESS OFFICER Scanned. Due on due Goal Height. Due on d ue Goal CT-Colonography. Due on due Goal Order Annual PT. Due on due Goal SAFETY EQUIPMENT TESTER Paperwork. Due on due Goal AST (SGOT). Due on due Goal UDT. Due on due Goal Weight. Due on d ue Goal Lipid panel. Due on due Goal Tobacco Use. Due on due Goal Hepatitis C screening. Due o n due Goal Unhealthy drug u se screening. Due on due Goal Zoster vaccine (). Due on due Goal Update Social History. Due o n due Goal FIT. Due on due Goal Medication Recon ciliation. Due on due Goal HPV. Due on due Goal Height. Due on d ue Goal PRESS OFFICER Scanned. Due on due Goal Review Allergy [...] Zoster vaccine (). Due on due Goal Lipid panel. Due on 023 due Goal SAFETY EQUIPMENT TESTER Paperwork. Due on due Goal Unhealthy drug u se screening. Due on due Goal FIT-DNA. Due on due Goal Height. Due on d ue Goal Hepatitis C screening. Due o n due Goal Weight. Due on d ue Goal FIT. Due on due Goal CT-Colonography. Due on due Goal SAFETY EQUIPMENT TESTER Paperwork. Due on due Goal Review Allergy [...] due Goal Creatinine. Due on due Goal PRESS OFFICER Scanned. Due on due Goal Order Annual PT. Due on due Goal PHQ-9. Due on du e Goal AST (SGOT). Due on due Goal SAFETY EQUIPMENT TESTER Paperwork. Due on due Goal Order Annual PT. Due on due Goal Creatinine. Due on due Goal PRESS OFFICER Scanned. Due on due Goal ALT (SGPT). [...] due Goal OARS. Due on due Goal PRESS OFFICER Scanned. Due on due Goal Height. Due on d ue Goal Lipid panel. Due on due Goal FIT. Due on due Goal Order Annual PT. Due on due Goal SAFETY EQUIPMENT TESTER Paperwork. Due on due Goal Tobacco Use. Due on due Goal Review Allergy List. Due on due Goal Creatinine. Due on due Goal Weight. Due on d ue Goal PRESS OFFICER Scanned. Due on due Goal Order Annual PT. Due on due Goal ALT (SGPT). Due on due Goal HPV. Due on due Goal OARS. Due on due Goal UDT. Due on due Goal Height. Due on d ue Goal Creatinine. Due on due Goal FIT-DNA. Due on due Goal AST (SGOT). Due on due Goal SAFETY EQUIPMENT TESTER Paperwork. Due on due Goal Review Allergy [...] Goal AST (SGOT). Due on due Goal SAFETY EQUIPMENT TESTER Paperwork. Due on due Goal Hepatitis C screening. Due o n due Goal UDT. Due on due Goal ALT (SGPT). Due on due Goal Weight. Due on d ue Goal Review Allergy List. Due on due Goal PRESS OFFICER Scanned. Due on due Goal OARS. Due [...] UDT. Due on due Goal Zoster vaccine (1st). Due on due Goal Medication Recon ciliation. Due on due Goal AST (SGOT). Due on due Goal Order Annual PT. Due on due Goal SAFETY EQUIPMENT TESTER Paperwork. Due on due Goal Creatinine. Due on due Goal Review Allergy List. Due on due Goal Hepatitis C screening. Due o n due Goal PRESS OFFICER Scanned. Due on due Goal Lipid panel. Due on due Goal FIT-DNA. Due on due Goal OARS. Due on due Goal SAFETY EQUIPMENT TESTER Paperwork. Due on due Goal Hepatitis C [...] due Goal FIT. Due on due Goal PRESS OFFICER Scanned. Due on due Goal Lipid panel. Due on due Goal PHQ-9. Due on du e Goal UDT. Due on due Goal Height. Due on d ue Goal OARS. Due on due Goal PRESS OFFICER Scanned. Due on due Goal Update Social History. Due o n due Goal CT-Colonography. Due on due Goal HPV. Due on due Goal AST (SGOT). Due on due Goal Zoster vaccine (1st). Due on due Goal SAFETY EQUIPMENT TESTER Paperwork. Due on due Goal Review Allergy [...] Goal Tobacco Use. Due on due Goal PRESS OFFICER Scanned. Due on due Goal FIT-DNA. Due [...] Goal Weight. Due on d ue Goal SAFETY EQUIPMENT TESTER Paperwork. Due on due Goal Tobacco Use. Due on due Goal PRESS OFFICER Scanned. Due on due Goal Order Annual PT. Due on due Goal PHQ-9. Due on du e Goal FIT-DNA. Due on due Goal Zoster vaccine (). Due on due Goal OARS. Due on due Goal Lipid panel. Due on due Goal UDT. Due on due Goal SAFETY EQUIPMENT TESTER Paperwork. Due on due Goal Height. Due [...] Medication Recon ciliation. Due on due Goal PRESS OFFICER Scanned. Due on due Goal Order Annual PT. Due on due Goal OARS. Due on due Goal HPV. Due on due Goal Update Social History. Due o n due Goal SAFETY EQUIPMENT TESTER Paperwork. Due on due Goal PHQ-9. Due [...] Order Annual PT. Due on due Goal PRESS OFFICER Scanned. Due on due Goal Zoster vaccine (). Due on due Goal OARS. Due on due Goal SAFETY EQUIPMENT TESTER Paperwork. Due on due Goal CT-Colonography. Due [...] Goal Weight. Due on d ue Goal PRESS OFFICER Scanned. Due on due Goal Tobacco Use. Due on due Goal Height. Due on d ue Goal AST (SGOT). Due on due Goal Unhealthy drug u se screening. Due on due Goal SAFETY EQUIPMENT TESTER Paperwork. Due on due Goal Review Allergy [...] due Goal FIT-DNA. Due on due Goal SAFETY EQUIPMENT TESTER Paperwork. Due on due Goal PHQ-9. Due on du e Goal Unhealthy drug u se screening. Due on due Goal Creatinine. Due on due Goal HPV. Due on due Goal Tobacco Use. Due on due Goal Update Social History. Due o n due Goal PRESS OFFICER Scanned. Due on due Goal Review Allergy List. Due on due Goal Hepatitis C screening. Due o n due Goal CT-Colonography. Due on due Goal Weight. Due on d ue Goal Order Annual PT. Due on due Goal Height. Due on d ue Goal FIT-DNA. Due on due Goal Creatinine. Due on due Goal Hepatitis C screening. Due o n due Goal SAFETY EQUIPMENT TESTER Paperwork. Due on due Goal PHQ-9. Due [...] Goal Weight. Due on d ue Goal PRESS OFFICER Scanned. Due on due Goal ALT (SGPT). Due on due Goal OARS. Due on due Goal UDT. Due on due Goal Review Allergy List. Due on due Goal Lipid panel. Due on due Goal Order Annual PT. Due on due Goal Hepatitis C screening. Due o n due Goal Weight. Due on d ue Goal SAFETY EQUIPMENT TESTER Paperwork. Due on due Goal Medication Recon ciliation. Due on due Goal Unhealthy drug u se screening. Due on due Goal OARS. Due on due Goal Update Social History. Due o n due Goal FIT. Due on due Goal PHQ-9. Due on du e Goal UDT. Due on due Goal Creatinine. Due on due Goal PRESS OFFICER Scanned. Due on due Goal ALT (SGPT). [...] Social History. Due o n due Goal SAFETY EQUIPMENT TESTER Paperwork. Due on due Goal PHQ-9. Due on du e Goal FIT. Due on due Goal Weight. Due on d ue Goal Medication Recon ciliation. Due on due Goal CT-Colonography. Due on due Goal UDT. Due on due Goal Review Allergy List. Due on due Goal Order Annual PT. Due on due Goal PRESS OFFICER Scanned. Due on due Goal AST (SGOT). Due on due Goal HPV. Due on due Goal ALT (SGPT). Due on due Goal Height. Due on d ue Goal Tobacco Use. Due on due Goal FIT-DNA. Due on due Goal Unhealthy drug u se screening. Due on due Goal Hepatitis C screening. Due o n due Goal Zoster vaccine (). Due on due Goal Weight. Due on d ue Goal Height. Due on d ue Goal Hepatitis C screening. Due o n due Goal AST (SGOT). Due on due Goal UDT. Due on due Goal FIT. Due on due Goal SAFETY EQUIPMENT TESTER Paperwork. Due on due Goal Creatinine. Due on due Goal PHQ-9. Due on du e Goal PRESS OFFICER Scanned. Due on due Goal Review Allergy [...] OARS. Due on due Goal Zoster vaccine (). [...] Goal Tobacco Use. Due on due Goal SAFETY EQUIPMENT TESTER Paperwork. Due on due Goal PRESS OFFICER Scanned. Due on due Goal Zoster vaccine [...] Goal Weight. Due on d ue Goal PRESS OFFICER Scanned. Due on due Goal Height. Due on d ue Goal SAFETY EQUIPMENT TESTER Paperwork. Due on due Goal Unhealthy drug [...] Order Annual PT. Due on due Goal SAFETY EQUIPMENT TESTER Paperwork. Due on due Goal PRESS OFFICER Scanned. Due on due Goal Unhealthy drug [...] due Goal HPV. Due on due Goal PRESS OFFICER Scanned. Due on due Goal OARS. Due on due Goal Height. Due on d ue Goal UDT. Due on due Goal Update Social History. Due o n due Goal PHQ-9. Due on du e Goal SAFETY EQUIPMENT TESTER Paperwork. Due on due Goal Creatinine. Due [...] due Goal UDT. Due on due Goal SAFETY EQUIPMENT TESTER Paperwork. Due on due Goal Height. Due on d ue Goal OARS. Due on due Goal PRESS OFFICER Scanned. Due on due Goal Weight. Due on d ue Goal ALT (SGPT). Due on due Goal Medication Recon ciliation. Due on due Goal ALT (SGPT). Due on due Goal Medication Recon ciliation. Due on due Goal SAFETY EQUIPMENT TESTER Paperwork. Due on due Goal Creatinine. Due on due Goal Weight. Due on d ue Goal AST (SGOT). Due on due Goal PRESS OFFICER Scanned. Due on due Goal Tobacco Use. Due on due Goal Review Allergy List. Due on due Goal PHQ-9. Due on du e Goal OARS. Due on due Goal Update Social History. Due o n due Goal UDT. Due on due Goal Order Annual PT. Due on due Goal Height. Due on d ue Goal SAFETY EQUIPMENT TESTER Paperwork. Due on due Goal UDT. Due on due Goal ALT (SGPT). Due on due Goal PRESS OFFICER Scanned. Due on due Goal OARS. Due [...] Review Allergy List. Due on due Goal SAFETY EQUIPMENT TESTER Paperwork. Due on due Goal PRESS OFFICER Scanned. Due on due Goal OARS. Due on due Goal Update Social History. Due o n due Goal Tobacco Use. Due on due Goal Height. Due on d ue Goal Weight. Due on d ue Goal Height. Due on d ue Goal PHQ-9. Due on du e Goal Weight. Due on d ue Goal Medication Recon ciliation. Due on due Goal PRESS OFFICER Scanned. Due on due Goal Review Allergy List. Due on due Goal Update Social History. Due o n due Goal ALT (SGPT). Due on due Goal OARS. Due on due Goal Tobacco Use. Due on due Goal AST (SGOT). Due on due Goal Creatinine. Due on 17 due Goal SAFETY EQUIPMENT TESTER Paperwork. Due on due Goal Order Annual PT. Due on due Goal UDT. Due on due Goal PRESS OFFICER Scanned. Due on due Goal SAFETY EQUIPMENT TESTER Paperwork. Due on due Goal OARS. Due [...] Social History. Due o n due Goal PRESS OFFICER Scanned. Due on due Goal OARS. Due on due Goal ALT (SGPT). Due on due Goal SAFETY EQUIPMENT TESTER Paperwork. Due on due Goal Order Annual [...] Goal Tobacco Use. Due on due Goal PRESS OFFICER Scanned. Due on due Goal Review Allergy List. Due on due Goal Medication Recon ciliation. Due on due Goal PHQ-9. Due on du e Goal Weight. Due on d ue Goal Order Annual PT. Due on due Goal AST (SGOT). Due on due Goal UDT. Due on due Goal Height. Due on d ue Goal SAFETY EQUIPMENT TESTER Paperwork. Due on due Goal SAFETY EQUIPMENT TESTER Paperwork. Due on due Goal UDT. Due on due Goal PHQ-9. Due on du e Goal Review Allergy List. Due on due Goal Medication Recon ciliation. Due on due Goal Order Annual PT. Due on due Goal PRESS OFFICER Scanned. Due on due Goal Tobacco Use. [...] Goal Weight. Due on d ue Goal SAFETY EQUIPMENT TESTER Paperwork. Due on due Goal PRESS OFFICER Scanned. Due on due Goal OARS. Due [...] due Goal Creatinine. Due on due Goal PRESS OFFICER Scanned. Due on due Goal Height. Due on d ue Goal Update Social History. Due o n due Goal Review Allergy List. Due on due Goal SAFETY EQUIPMENT TESTER Paperwork. Due on due Goal UDT. Due [...] due Goal UDT. Due on due Goal SAFETY EQUIPMENT TESTER Paperwork. Due on due Goal PRESS OFFICER Scanned. Due on due Goal Order Annual PT. Due on due Goal Medication Recon ciliation. Due on due Goal Medication Recon ciliation. Due on due Goal Creatinine. Due on due Goal ALT (SGPT). Due on due Goal Tobacco Use. Due on due Goal UDT. Due on due Goal OARS. Due on due Goal Height. Due on d ue Goal SAFETY EQUIPMENT TESTER Paperwork. Due on due Goal AST (SGOT). Due on due Goal Weight. Due on d ue Goal PHQ-9. Due on du e Goal PRESS OFFICER Scanned. Due on due Goal Order Annual [...] Goal Height. Due on d ue Goal SAFETY EQUIPMENT TESTER Paperwork. Due on due Goal Creatinine. Due on due Goal Weight. Due on d ue Goal Review Allergy List. Due on due Goal PRESS OFFICER Scanned. Due on due Goal OARS. Due on due Goal UDT. Due on due Goal Review Allergy List. Due on due Goal ALT (SGPT). Due on due Goal OARS. Due on due Goal Update Social History. Due o n due Goal Weight. Due on d ue Goal SAFETY EQUIPMENT TESTER Paperwork. Due on due Goal Height. Due on d ue Goal Tobacco Use. Due on due Goal PHQ-9. Due on du e Goal PRESS OFFICER Scanned. Due on due Goal UDT. Due on due Goal Order Annual PT. Due on due Goal AST (SGOT). Due on due Goal Creatinine. Due on due Goal Medication Recon ciliation. Due on due Referral Ordered: CT LUMBAR SPINE W/O DYE Bilateral ordered Appointment Ramona Sanders BOOKED Future Order: Lab Order Drug [facility] t Def 22+ Classes (G0483), Ordered on: Ordered Future Order: Lab Order COMPLIAN CE DRUG ANALYSIS, URINE, WITH MED REPORT ([id number]), Ordered on: Ordered Future Order: Lab Order Drug [facility] t Def 22+ Classes ([id number]), Ordered on: Ordered Future Order: Lab Order COMPLIAN CE DRUG ANALYSIS, URINE, WITH MED REPORT ([id number]), Ordered on: Ordered Future Order: Lab Order Drug [facility] t Def 22+ Classes ([id number]), Ordered on: Ordered Future Order: Lab Order COMPLIAN CE DRUG ANALYSIS, URINE, WITH MED REPORT ([id number]), Ordered on: Ordered History Of Present Illness Encounter Date Complaint History Of Prese nt Illness Back Pain Severity level i s 8. Duration: chronic. The problem is worsening. It occurs persistently. Location of pain is lower back and BL knees. Comments: Ramona presents via [employer] for a virtual follow up and medication [...] knee. She is hoping to go to [facility] tomorrow.Current medication regimen provides around 40% pain relief. Denies side effects from current medication regimen, besides OIC. No other concerns today. Back Pain Severity level i s 7. Duration: chronic. The problem is worsening. It occurs persistently. Location of pain is lower back. Comments: Ramona presents via [employer] for a virtual follow-up and medication refill [...] mentions she is planning on looking inter [employer] cannabis certification. No other concerns today. Back [...] experiencing spasms.S/p lumbar sx on 01/16/22 at [facility], and continues to be in the healing process. F/u for a second opinion with [facility] on 04/11/22 who recommended lumbar CARLOS. [...] s/p back surgery, completed on 01/16/22 at [facility], and continues to be in the healing process. Scheduled for a second opinion with [facility] on 04/11. Current medication regimen provides [...] s/p back surgery, completed on 01/16/22 at [facility], and continues to be in the healing process. Patient states she is actively seeking a second opinion with [facility] regarding her back.Current medication regimen provides [...] pain. S/p back surgery on 01/16 at [facility], patient is still experiencing post-op pain. States [...] to worsen.Upcoming back surgery on 01/16 at [facility]. May also needs an additional surgery for [...] S/p neck surgery on 08/21/[address] Brock Sawyer MD. Ever since the surgery, she [...] financially burdening for her to purchase it [id number]. Endorses OIC, managed with [employer]. Denies other [...] other concerns today. Comments: Ramona presents via [employer] for virtual follow up and medication refill.Recently [...] relief from the current medication regimen, denies Hira. Back Pain Severity level i s 7. [...] meds/drugs and rest. Comments: Ramona presents via [employer] for virtual follow up and medication refill.States [...] pain relief from the current medication regimen, donaldies Hira Reports she started taking a Tylenol with [...] by lying down. Back Pain (comments) Ramona cochrans for a [...] follow up and medications refill. Since last OV, met with neck surgeon to discuss new [...] meds/drugs and rest. Back Pain (comments) Ramona cochrans for a [...] morning. Plans to mail consent form for [place] medical cannabis program to [facility].No other concerns today. Back Pain Severity level [...] scan and will be following up with [facility] in 2 weeks to review the [...] ongoing pain.No other concerns today. Back Pain Severity [...] long after the surgery. Expresses frustrations with [facility] not providing her the proper doses of pain medications needed to function while she was resting. Will be having her follow up on 07/11.Was informed by her PCP that she is anemic during her pre-op. Plans to get tested in 3 weeks for further assessment.No further questions or concerns. Back Pain (comments) Patient is here for [...] though not interested in staying at dosage watermaster.No other concerns today. Back Pain (comments) Patient [...] hold off on surgery until after the holidays, following up with back surgeon this Friday.No [...] to meet with her back surgeon to 03/18. Notes ongoing BL LE weakness causing her [...] persistent and chronic. She met with her credit operations specialist who reviewed her recent lumbar MRI [...] today. She will be starting with a personal financial advisor on Friday. Back Pain Severity level i [...] changing positions, prolonged positioning and sitting in locksmith at particular angle. Back Pain (comments) Ramona [...] lying down and pain meds/drugs. Back Pain Severity level i s 5. [...] pain. No other concerns today. Back Pain (comments) [...] low back pain Severity level i s -09/19. Duration: chronic. The problem is improving. It [...] to wait on getting neck injections at [facility] because her pain is tolerable as of now. She says she joined [employer] and works out everyday, which has [...] continue to be painful - treating at [facility]. Nerve blocks have been ordered at [facility] and if ineffective, will be considering [...] and numbness. Will be following up with [facility]. low back pain Severity level i [...] relief; denies any SE. Continues to watch [employer]. States her SCS is and never was [...] reports that she completed a CT at [facility]. It was recommended she complete myofascial release [...] more hours during the week. Met with [facility] and fusion looks stable. Has been referred for myofascial release at [facility] in [place]. low back pain Severity level i s [...] more often. Will be starting PT in [place] on 02/23/15. Patient has #5 Oxycontin and [...] pain meds/drugs and rest. low back pain (comments) Patient has #22 [...] relieved by pain meds/drugs, rest and recliner. Back Pain [...] Back Pain (comments) Patient was referred by [facility]. Patient has a hx of severe lumbar DDD; she had a L4-S1 fusion in April 2011 and revision in February 2014. She also has a hx of cervical fusion in 2010. Neck pain has resolved, she is here today to inquire about treating her low back pain. Patient has a Nutzvieh24 SCS, though is not currently using it. [...] she knows she will not be driving. [place] is effective for only one hour. She is not taking any muscle relaxers. She recently went to the ER for pain and muscle spasms, she was given dilaudid and ativan. She has not engaged in PT or pool therapy recently. She has tried fentanyl 25mcg/hr patches and did not find it effective. Oxycontin has been tolerated in the past, ms manjeet ER caused drowsiness. She does not want [...] recent surgery was completed on 01/16/22 at [facility].Forwarded history: Patient also previously had collapsed cervical [...] is s/p lumbar surgery on 01/16 at [facility], and f/u with [facility] who suggested Lumbar CARLOS.Previously discussed additional treatment options: muscle relaxer, trigger point injections, topical meds, and/or medical cannabis. Patient has previously declined these options; Soma was the only thing that helped previously. 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 Per [place] Statue 152.125 INTRACTABLE PAIN, subd 2, the [...] Mental Status Date Cognitive Assessment Orientation - Rohwer ed to time, place, person, situation.Normal Orientation Patient Care Teams Name Effective Dates (start - stop) Status Members No Information
[2022-10-17 18:08] LABS: SARS PCR* Negative SARS-CoV-2 (Negative)
== END 2022-10-17 16:17 | disposition home or self-care (01) ==
PROVIDERS: PCP Family Medicine; Visit Provider Nurse Practitioner Family
DX: R06.02 Shortness of breath (principal); Z20.822 Contact with and (suspected) exposure to COVID-19
CPT/HCPCS: 87635

== ENCOUNTER 2022-10-21 15:13 | Outpatient (CLI) | payer MEDICARE, OTHER, SELFPAY | END 2022-10-21 15:14 | disposition home or self-care (01) | LOC: LONREF 15:13 | PROVIDERS: PCP Family Medicine; Visit Provider Family Medicine | DX: E78.5 Hyperlipidemia, unspecified (principal) | CPT/HCPCS: 80061 ==

== ENCOUNTER 2022-12-09 10:47 | Outpatient (CLI) | payer MEDICARE, OTHER, SELFPAY ==
--- NOTE | 2022-12-09 11:15 | CRLHL7_ITS ---
For Patients: As a result of the Century Cures Act, medical imaging exams and procedure reports are released immediately into your electronic medical record. You may view this report before your referring provider. If you have questions, please contact your health care provider. CLINICAL HISTORY: Abdominal distension Comparison CT 06/26/2022 TECHNIQUE: 2D james scale and color Doppler images were acquired of the pelvis using a transvaginal approach. FINDINGS: On transvaginal imaging, the myometrium has a normal uniform echotexture. The uterus measures 5.3 x 2.8 x 4.4 cm. The endometrial lining measures 2 mm in thickness. The ovaries are not visualized. There are no suspicious fluid collections within the cul-de-sac. IMPRESSION: Normal uterus and endometrium. Nonvisualization of the ovaries due to overlying bowel gas. No pelvic free fluid is present. Dictated by Ronald Porter MD @ 12/09/2022 12:40:32 PM (Electronically Signed)
== END 2022-12-09 10:48 | disposition home or self-care (01) ==
LOC: US 10:47
PROVIDERS: PCP Family Medicine; Visit Provider Physician Assistant
DX: R14.0 Abdominal distension (gaseous) (principal)
CPT/HCPCS: 76830

== ENCOUNTER 2023-03-13 14:45 | Outpatient (CLI) | payer MEDICARE, OTHER, SELFPAY ==
--- NOTE | 2023-03-13 15:00 | CRLHL7_ITS ---
For Patients: As a result of the Century Cures Act, medical imaging exams and procedure reports are released immediately into your electronic medical record. You may view this report before your referring provider. If you have questions, please contact your health care provider. INDICATION: Leg pain and swelling. TECHNIQUE: Ultrasound venous duplex lower right extremity. Compression venous exam was performed using james-scale, color Doppler, and spectral Doppler analysis. COMPARISON: None. FINDINGS: Deep veins: Sonographic imaging demonstrates the right common femoral, deep femoral, superficial femoral, popliteal, posterior tibial, peroneal and the contralateral left common femoral veins to be fully compressible with normal color Doppler blood flow. Superficial veins: Greater saphenous vein is fully compressible. No popliteal cyst. IMPRESSION: Normal right lower extremity venous ultrasound, no sign of deep venous thrombosis. Dictated by Adi Hightower MD @ 03/13/2023 4:03:03 PM (Electronically Signed)
== END 2023-03-13 14:46 | disposition home or self-care (01) ==
LOC: US 14:47
PROVIDERS: PCP Family Medicine; Visit Provider Family Medicine
DX: R22.41 Localized swelling, mass and lump, right lower limb (principal); M79.661 Pain in right lower leg
CPT/HCPCS: 93971

== ENCOUNTER 2023-08-22 13:51 | Outpatient (CLI) | payer MEDICARE, OTHER, SELFPAY ==
--- OUTSIDE RECORDS SUMMARY | 2023-08-22 13:54 | XMS_ITS | Clinical Summary ---
Author Organization [facility] Address [place], [place] [address] Care Team Providers Care Fancy Stitcher Name Role Phone Hayes Mcelroy MD Primary Care Provider [phone] Allergies Active Allergy Reactions Criticality Noted Date Comments Atorvastatin Other - Describe In Comment Field 09/30/2019 Skin irritation around eyes Baclofen Nausea Only 09/30/2019 Prochlorperazine Other - Describe In Comment Field 10/07/2008 convulsions Cyclobenzaprine Hcl Other - Describe In Comment Field 07/11/2014 problems with RLS Diphenhydramine Restless Legs/Feet 10/07/2008 Droperidol Other - Describe In Comment Field 09/30/2019 Worsens RLS Hydroxyzine Other - Describe In Comment Field 01/15/2022 Involuntary muscle movement Methocarbamol Other - Describe In Comment Field,Nausea And Vomiting 07/18/2014 Causes problems with RLS Morphine Itching 10/07/2008 Valproic Acid *Unknown - Pt Doesn' t Remember 09/30/2019 Venlafaxine Rash 09/30/2019 Restless legs Medications Medication Sig Dispensed Refills Start Date End Date Status pramipexole (MIRAPEX) 0.5 mg tablet TAKE 1 TABLET BY MOUTH AT BEDTIME 30 Each 1 08/01/2009 Active prazosin (MINIPRESS) 1 mg capsule Take 1 mg by mouth at bedtime. 2 10/13/2018 Active simvastatin (ZOCOR) 20 mg tablet Take 20 mg by mouth at bedtime. 3 08/24/2018 Active traZODone (DESYREL) 100 mg tablet Take 100 mg by mouth at bedtime. 2 09/24/2018 Active lamoTRIgine (LAMICTAL) 200 mg tablet Take 200 mg by mouth 2 times daily. Active buPROPion (WELLBUTRIN XL) 300 mg Extended-Release tablet Take 300 mg by mouth every morning. Active metFORMIN (GLUCOPHAGE) 1,000 mg tabletIndications:Di abetes 1.5, managed as type 2 (HC) Take 1 tablet by mouth 2 times daily with meals. 0 10/02/2019 Active NARCAN 4 mg/actuation spry nasal spray Administer one dose (4 mg) into nostril as needed for opioid overdose and call 911. Give second dose into the other nostril after 2 to 3 min 10/14/2019 Active topiramate (TOPAMAX) 100 mg tablet Take 150 mg by mouth 2 times daily. Active dicyclomine (BENTYL) 20 mg tablet Take 20 mg by mouth 3 times daily before meals. Active furosemide (LASIX) 20 mg tablet Take 20 mg by mouth once daily if needed. 08/15/2020 Active escitalopram oxalate (LEXAPRO) 20 mg tablet Take 20 mg by mouth at bedtime. Active omeprazole (PRILOSEC) 40 mg Delayed-Release capsule Take 40 mg by mouth once daily. Active ergocalciferol (VITAMIN D2; DRISDOL) 50,000 unit capsuleIndications:S /P cervical spinal fusion Take 1 Capsule (50,000 units) by mouth once weekly. 12 Capsule 3 07/02/2021 Active lidocaine 5 % topical patch Apply 1-3 Patches on dry, clean, hairless skin once daily if needed. 10/17/2021 Active DULoxetine (CYMBALTA) 60 mg Delayed-release capsule Take 120 mg by mouth once daily. 12/21/2021 Active sennosides-docusate (SENOKOT S) (8.6-50 mg) tabletIndications:Ita mbar radiculopathy,Opioid use Take 1-4 Tablets by mouth two times daily. 100 Tablet 01/17/2022 Active tiZANidine (ZANAFLEX) 2 mg tabletIndications:Ita mbar radiculopathy Take 1-2 Tablets (2-4 mg) by mouth every 6 hours if needed for Muscle Spasm. 60 Tablet 01/17/2022 Active Accu-Chek Guide test strips strip USE TO TEST TWICE A DAY 01/09/2022 Active Accu-Chek Guide Glucose Meter USE TO CHECK BLOOD GLUCOSE LEVELS. 01/09/2022 Active Accu-Chek Softclix Lancets USE TO TEST TWICE A DAY 01/09/2022 Active oxyCODONE (ROXICODONE) 15 mg immediate release tablet TAKE 1 TABLET BY MOUTH EVERY 4-6 HOURS NEEDED FOR CHRONIC PAIN, MAX 5 TABLETS PER DAY 01/18/2022 Active oxyCODONE 10 mg tabletIndications:Po st-op pain Take 1-2 Tablets (10-20 mg) by mouth every 4 hours if needed for Pain. 60 Tablet 01/30/2022 Active Active Problems Problem Noted Date Diagnosed Date Chronic anemia 08/22/2021 Type 2 diabetes mellitus wit hout complication, without long-term current use of insulin 08/21/2021 IBS (irritable bowel syndrome) 06/27/2020 RLS (restless legs syndrome) 06/27/2020 History of lumbar fusion 06/27/2020 Lumbar radiculopathy 10/01/2019 Opioid dependence with current use 10/01/2019 Sciatica 2008 Essential hypertension HLD (hyperlipidemia) GERD (gastroesophageal reflux disease) Diabetes 1.5, managed as type 2 Depression Anxiety Cervical stenosis of spinal canal Immunizations Name Administration Dates Next Due AMB Influenza, IIV3 (Age 6-3 5 mos) Preserve Free (Flu Clinic Only) 12/13/2008,12/13/2008 Family History Medical History Relation Name Comments Diabetes Brother type 2 Hypertension Father Arthritis Mother Cancer-breast Other 1 paternal great grandmother Cancer-breast Other 2 first cousin Cancer-colon Other 3 paternal great grandfather Relation Name Status Comments Brother Father Alive Mother Alive Other 1 Other 2 Other 3 Social History Tobacco Use Types Packs/Day Years Used Date Smoking Tobacco: Former Cigarettes 0.5 10 0 08/19/2009 - 08/20/2019 Smokeless Tobacco: Never Tobacco Cessation:Counseling Given: No Alcohol Use Standard Drinks/Week Comments No 0 (1 standard drink = 0.6 oz pur e alcohol) Social Connections Answer Date Recorded Frequency of Communication with Friends and Fami ly Not on file 01/31/2021 Financial Resource Strain Answer Date R ecorded Difficulty of Paying Living Expenses Not on file 01/31/2021 Difficulty of Paying Living Expenses Not on file 01/31/2021 Sex and Gender Information Value Date Recorded Sex Assigned at Not on file Gender Identity Not on file Sexual Orientation Not on file Obstetrics History Last Filed Vital Signs Vital Sign Reading Time Taken Comments Blood Pressure 105/55 01/17/2022 9:09 AM CHIEF ULTRASOUND TECHNOLOGIST Pulse 71 01/17/2022 11:25 AM CHIEF ULTRASOUND TECHNOLOGIST Temperature 36.8 ??C (98.3 ??F) 01/17/2022 9:09 AM CS T Respiratory Rate 16 01/17/2022 11:25 AM CHIEF ULTRASOUND TECHNOLOGIST Oxygen Saturation 91% 01/17/2022 11:25 AM CHIEF ULTRASOUND TECHNOLOGIST Inhaled Oxygen Concentration - - Weight 72.6 kg (160 lb) 04/11/2022 9:58 AM CHIEF ULTRASOUND TECHNOLOGIST Height 175.3 cm (5' 9) 04/11/2022 9:58 AM CHIEF ULTRASOUND TECHNOLOGIST Body Mass Index 23.63 04/11/2022 9:58 AM CHIEF ULTRASOUND TECHNOLOGIST Plan of Treatment Health Maintenance Due Date Last Done Comments Pneumococcal series for age 6-64 (1 of 2 - PCV) 1968 Tdap 1973 HIV for age 15-65 1977 Hepatitis C screening for ag e 18-79 1980 Tetanus booster 1982 Colonoscopy through age 75 11/21/2007 Lipids for age 45-75 11/21/2007 Mammogram for age 45-75 11/06/2010 11/06/2009, 10/07 Zoster (shingles) series for age 50+ (1 of 2) 2012 Depression screening for age 12+ 01/10/2018 01/11/20 17 COVID-19 vaccine series ( season) 2022 07/30/2021, 12/02/2020, 06/02/2020, Additional history exists BMI (ht and wt on same day) for age 18+ 04/12/2023 04/11/2022, 01/30/2022, 01/10/2022, Additional history exists Influenza for age 50-64 10/12/2023 Pap test for age 21-65 11/21/2025 , 11/21/2022, 07/28/2017, Additional history exists Medical Devices Implanted Type Area Dock Guard Device Identifier Shelf Expiration Date Model / Serial / Lot Bone Matrix 10cc [employer] Plusputty m - [id number] Implanted:Qty : 1 on 12/01/2019 by Brock Sawyer MD at [facility] N/A: Lumbar Vertebrae Medtronic Spine/Ortho 06/15/2021 [id number] / / [id number] Spacer Lmbr 9-02i07me 11deg Elevate Extra-Lordoti c Peek Titn - [id number] Implanted:Qty : 1 on 12/01/2019 by Brock Sawyer MD at [facility] N/A: Lumbar Vertebrae Medtronic Spine/Ortho 09/15/2027 [id number]# / / [id number] Screw Lmbr Post 6.5x50mm Solera 5.5/6 Va Cocr - [id number] Implanted:Qty : 4 on 12/01/2019 by Brock Sawyer MD at [facility] N/A: Lumbar Vertebrae Medtronic Spine/Ortho [id number] / / 5.5 X 500mm Cc Beltran Implanted:Qty : 1 on 12/01/2019 by Brock Sawyer MD at [facility] N/A: Lumbar Vertebrae Medtronic Spine/Ortho [id number] / / Bone 1-4mm 90cc Medtronic Chips Canclls Freeze Dried - [id number] Implanted:Qty : 1 on 12/01/2019 by Brock Sawyer MD at [facility] N/A: Lumbar Vertebrae Medtronic Spine/Ortho 04/24/2024 [id number]# / / [id number]: [id number] Bone Matrix Md Infuse Bmp - [id number] Implanted:Qty : 1 on 12/01/2019 by Brock Sawyer MD at [facility] N/A: Lumbar Vertebrae Medtronic Spine/Ortho 11/09/2021 [id number]# / / [id number] Bone 1-4mm 30cc Medtronic Chips Canclls Freeze Dried - [id number] Implanted:Qty : 1 on 12/01/2019 by Brock Sawyer MD at [facility] N/A: Lumbar Vertebrae Medtronic Spine/Ortho 05/31/2024 [id number]# / / [id number]: [id number] Spacer Lmbr 11-29b02ss 12deg Elevate Extra-Lordoti c Peek Tit - [id number] Implanted:Qty : 1 on 12/01/2019 by Brock Sawyer MD at [facility] N/A: Lumbar Vertebrae Medtronic Spine/Ortho 05/31/2027 [id number]# / / [id number] Bone Matrix 10cc Progenix Putty Dbm - [id number] Implanted:Qty : 1 on 12/01/2019 by Brock Sawyer MD at [facility] N/A: Lumbar Vertebrae Medtronic Spine/Ortho 01/15/2021 [id number]# / / [id number] Set Screw Lmbr Ant 5.5mm Solera Break Off - [id number] Implanted:Qty : 10 on 12/01/2019 by Brock Sawyre MD at [facility] Explanted:Qty : 1 on 06/27/2020 by Brock Sawyer MD at [facility] N/A: Lumbar Vertebrae Medtronic Spine/Ortho [id number]# / / Vitoss 1.2cc [id number] - [id number] Implanted:Qty : 1 on 01/17/2021 by Brock Sawyer MD at [facility] N/A: Cervical Vertebrae Bri Spine 05/07/2021 [id number] / / [id number] Anterior Cervical Cage 7mm X 12mm X 14mm [id number] - [id number] Implanted:Qty : 1 on 01/17/2021 by Brock Saweyr MD at [facility] N/A: Cervical Vertebrae Timber Spine 01/25/2023 [id number] / / [id number] Heard View Plates 22mm [id number] - [id number] Implanted:Qty : 1 on 01/17/2021 by Brock Sawyer MD at [facility] N/A: Cervical Vertebrae Timber Spine [id number] / / Heard View Self-Starting Variable Screw 4.0x14mm [id number] - [id number] Implanted:Qty : 3 on 01/17/2021 by Brock Sawyer MD at [facility] N/A: Cervical Vertebrae Timber Spine [id number] / / Heard View Self-Starting Variable Screw 4.5x14mm [id number] - [id number] Implanted:Qty : 1 on 01/17/2021 by Brock Sawyer MD at [facility] N/A: Cervical Vertebrae [id number] / / Vitoss Bimodal Implanted:Qty : 1 on 08/21/2021 by Brock Sawyer MD at [facility] N/A: Cervical Vertebrae Timber Spine 05/07/2022 [id number] / / [id number] Bone Matrix 5cc Stimulan Kit Rapid Cure - [id number] Implanted:Qty : 1 on 08/21/2021 by Brock Sawyer MD at [facility] N/A: Cervical Vertebrae [employer] 09/10/2023 [id number] / / [id number] 3.5 X 12mm [place] Oct Polyaxial Screw Implanted:Qty : 3 on 08/21/2021 by Brock Sawyer MD at [facility] N/A: Cervical Vertebrae [employer] [id number] / / 34.0 X 12mm [place] Oct Polyaxial Screw Implanted:Qty : 1 on 08/21/2021 by Brock Sawyer MD at [facility] N/A: Cervical Vertebrae [employer] [id number] / / Set Screw Implanted:Qty : 4 on 08/21/2021 by Brock Sawyer MD at [facility] N/A: Cervical Vertebrae [employer] [id number] / / Contoured Rods4.0 X 25mm Implanted:Qty : 2 on 08/21/2021 by Brock Sawyer MD at [facility] N/A: Cervical Vertebrae [employer] Inc [id number] / / Bone Matrix Sm Infuse Bmp - [id number] Implanted:Qty : 1 on 01/16/2022 by Brock Sawyer MD at [facility] Lumbar Vertebrae Medtronic Spine/Ortho 02/10/2024 [id number] / / [id number] Bone Matrix 5cc Progenix Plus Putty Dbm - [id number] Implanted:Qty : 1 on 01/16/2022 by Brock Sawyer MD at [facility] Spine Medtronic Spine/Ortho 05/02/2023 [id number] / [id number] / Bone 1-4mm 15cc Medtronic Chips Canclls Freeze Dried - [id number] Implanted:Qty : 1 on 01/16/2022 by Brock Sawyer MD at [facility] Spine Medtronic Spine/Ortho 12/04/2025 [id number] / [id number] / [id number] Implant 16mm Implanted:Qty : 1 on 01/16/2022 by Brock Sawyer MD at [facility] Spine Medtronic Spine/Ortho 07/05/2025 [id number] / / [id number] Titan Tas Bone Screw Implanted:Qty : 1 on 01/16/2022 by Brock Sawyer MD at [facility] Spine Medtronic Spine/Ortho [id number] / / Divergence Screws Implanted:Qty : 4 on 01/16/2022 by Brock Sawyer MD at [facility] Spine Medtronic Spine/Ortho [id number] / / Divergence 18mm Plate Implanted:Qty : 1 on 01/16/2022 by Brock Sawyer MD at [facility] Spine Medtronic Spine/Ortho [id number] / / Explanted Type Area Dock Guard Device Identifier Shelf Expiration Date Model / Serial / Lot mPowa Precision Spinal Cord Stimulator Explanted:Qty: 1 on 12/01/2019 by Brock Sawyer MD at [facility] N/A: Lumbar Vertebrae [employer] / [id number] / Description:Battery and lead s explanted IPG model SC-1110 Bone Growth Stimulator Explanted:Qty: 1 on 12/01/2019 by Brock Sawyer MD at [facility] N/A: Lumbar Vertebrae Description:SpF-PLUS CLAUDIA [id number] Battery and leads explanted 100mm 5.5 Ti Beltran Explanted:Qty: 2 on 12/01/2019 by Brock Sawyer MD at [facility] N/A: Lumbar Vertebrae Set Screws Solera Explanted:Qty: 6 on 12/01/2019 by Brock Sawyer MD at [facility] N/A: Lumbar Vertebrae Medtronic Spine/Ortho Screw Sm Joint 4.5x20mm Axjamie Fonseca [facility] - [id number] Explanted:Qty: 4 on 12/01/2019 by Brock Sawyer MD at [facility] N/A: Lumbar Vertebrae Bri [employer]opaedics [id number]# / / 8.5 X 70 Mm Ballast Screw Explanted:Qty: 1 on 06/27/2020 by Brock Sawyer MD at [facility] Right: Lumbar Vertebrae Medtronic Procedures Procedure Name Priority Date/Time Associated Diagnosis Comments HPV THIN PREP Routine 11/21/2022 9:04 AM CDT XR FFDM MAMMO SCREENING BILATERAL SSP (IA) Routine 11/06/2009 10:54 AM CDT Other screening mammogram from Last 3 Months or Most Recently Relevant to Health Maintenance Results * (ABNORMAL) HPV HIGH RISK (11/21/2022 9:04 AM CDT) TYPE 16 Negative Negative 11/27/2022 11:43 AM CDT [facility] TYPE 18 Negative Negative 11/27/2022 11:43 AM CDT [facility] OTHER HIGH RISK TYPES Positive(A) Negative 11/27/2022 11:43 AM CDT [facility] Other (Cervical) 11/21/2022 9:04 AM CDT 11/25/2022 11:50 AM CDT Narrative [facility] - 11/27/2022 11:43 AM CDT Specimen is positive for the DNA of any one of, or combination of, the following high risk HPV types: 31, 33, 35, 39, 45, 51, 52, 56, 58, 59, 66, 68. HPV types 16 and 18 DNA were undetectable or below the pre-set threshold. ? Methodology: Dayak Amador 4800 HPV Test May Celia Rabago PA-C MICROBIOLOGY [facility] [address] [place] [address], [place] * XR FFDM MAMMO SCREENING BILATERAL SSP (11/06/2009 10:54 AM CDT) Anatomical Region Laterality Modality BREASTS, Breast Left, Breast Right Bilateral Mammography Impressions 11/06/2009 12:24 PM CDT ??There is no radiographic evidence for malignancy. ??Recommend annual mammograms. A lay language report of this examination will be provided to the patient. MAMMOGRAM ASSESSMENT: ??ACR 2 Benign Narrative 11/06/2009 12:24 PM CDT XR FFDM MAMMO SCREENING BILATERAL SSP [G0202.6] CLINICAL HISTORY: ??This is an asymptomatic 48 y.o. patient. INDICATION FOR EXAM: Mammogram Screening. TECHNIQUE: CC & MLO views were obtained. ??This digital study was evaluated with the assistance of Computer-Aided Detection. ?? COMPARISON FILMS: Yes 10/07/08 [facility] FINDINGS: ??Mammographically, the breast tissue is heterogeneously dense, which could obscure detection of small masses (approximately 51% - 75% glandular). ??No suspicious masses or microcalcifications. ??Benign appearing calcifications within both breasts. Procedure Note Hayes Anne, DO - 11/06/2009 XR FFDM MAMMO SCREENING BILATERAL SSP [G0202.6] CLINICAL HISTORY: This is an asymptomatic 48 y.o. patient. INDICATION FOR EXAM: Mammogram Screening. TECHNIQUE: CC & MLO views were obtained. This digital study was evaluatedwith the assistance of Computer-Aided Detection. COMPARISON FILMS: Yes 10/07/08 [facility] FINDINGS: Mammographically, the breast tissue is heterogeneously dense,which could obscure detection of small masses (approximately 51% - 75%glandular). No suspicious masses or microcalcifications. Benignappearing calcifications within both breasts. IMPRESSION: There is no radiographic evidence for malignancy. Recommendannual mammograms. A lay language report of this examination will be provided to the patient. MAMMOGRAM ASSESSMENT: ACR 2 Benign Ellen MONZON MAMMO from Last 3 Months or Most Recently Relevant to Health Maintenance Advance Directives * Full Code (Latest Code Status on File) Date Activated Date Inactivated Comments 01/16/2022 5:47 AM 01/17/2022 7:11 PM Question Answer Comments Code Status Discussion: Unable to Assess Preferences, Provider to review later * Full Code Date Activated Date Inactivated Comments 08/21/2021 7:45 AM 08/23/2021 5:02 PM Question Answer Comments Code Status Discussion: Unable to Assess Preferences, Provider to review later * Full Code Date Activated Date Inactivated Comments 01/18/2021 9:48 AM 01/18/2021 4:42 PM Question Answer Comments Code Status Discussion: Reviewed Preferences * Full Code Date Activated Date Inactivated Comments 01/17/2021 7:54 AM 01/18/2021 9:48 AM Question Answer Comments Code Status Discussion: Unable to Assess Preferences, Provider to review later * Full Code Date Activated Date Inactivated Comments 06/27/2020 5:42 AM 06/28/2020 12:57 PM Question Answer Comments Code Status Discussion: Not Discussed Care Teams Fancy Stitcher Relationship Specialty Start Date End Date Hayes Mcelroy MD PCP - General Family Practice 01/10/17
--- OUTSIDE RECORDS SUMMARY | 2023-08-22 13:54 | XMS_ITS | Clinical Summary ---
Author Organization [facility] Address [address] [place] [address] Care Team Providers Care Jackaroo Name Role Phone Tommy Mcelroy MD Primary Care Provider [phone] Source Comments You are receiving this document as you are listed as the primary care provider,follow-up provider, or the patient has been referred to you for consultation.This is in compliance with the Medicare and[facility] EHR Incentive Program,which states Providers who transition their patient to another setting of careor provider of care or refers their patient to another provider of care shouldprovide summary care record for each transition of care or referral. [facility] Allergies Active Allergy Reactions Criticality Noted Date Comments Antihistamines, Diphenhydramine-Type 06/16/2009 I have restless leg syndrome Phenothiazines Other, see comments 06/16/2009 Medications Medication Sig Dispensed Refills Start Date End Date Status Pramipexole Dihydrochloride (MIRAPEX OR) None Entered Active LORazepam (ATIVAN OR) Act nathaniel Active Problems Problem Noted Date Diagnosed Date Right foot pain 05/13/2022 Overview: Added automatically from request for surgery [id number] Social History Tobacco Use Types Packs/Day Years Used Date Smoking Tobacco: Never Smokeless Tobacco: Never Tobacco Cessation:Counseling Given: Not Answered Sex and Gender Information Value Date Recorded Sex Assigned at Not on file Gender Identity Not on file Sexual Orientation Not on file Last Filed Vital Signs Vital Sign Reading Time Taken Comments Blood Pressure 129/71 06/16/2009 4:43 PM CDT Pulse 92 06/16/2009 4:43 PM CDT Temperature 37.1 ??C (98.7 ??F) 06/16/2009 10:38 AM C DT Respiratory Rate 18 06/16/2009 4:43 PM CDT Oxygen Saturation 97% 06/16/2009 4:43 PM CDT Inhaled Oxygen Concentration - - Weight 75.8 kg (167 lb) 05/13/2022 9:38 AM CDT Height 175.3 cm (5' 9) 05/13/2022 9:38 AM CDT Body Mass Index 24.66 05/13/2022 9:38 AM CDT Plan of Treatment Health Maintenance Due Date Last Done Comments Cervical Cancer Screening Due 1962 Colon Cancer Screening Plan Due 1960 Hep C Screening (Preventive Services) 1960 Medicare Annual Wellness Visit 1960 Mammogram 1962 HIV Screening (Preventive Services) 1978 Cholesterol 11/21/2007 COVID-19 Vaccine ( season) 2022 07/30/2021, 12/02/2020, 06/02/2020, Additional history exists Influenza (#1) 2023 11/17/2020, 11/10, 02/20/2018, Additional history exists DTaP/Tdap/Td (3 - Tdap) 11/25/2029 11/26/19, 03/20/2010, 05/15/2000 Pneumococcal Aged Out 06/30/2012 No longer eligi ble based on patient's age to complete this topic Zoster/Shingles Completed 10/26/2018, 08/17/2018 HepA Aged Out No longer eligi ble based on patient's age to complete this topic HepB Aged Out No longer eligi ble based on patient's age to complete this topic Hib Aged Out No longer eligi ble based on patient's age to complete this topic IPV (Polio) Aged Out No longer eligi ble based on patient's age to complete this topic MCV4 Aged Out No longer eligi ble based on patient's age to complete this topic Care Teams Jackaroo Relationship Specialty Start Date End Date Tommy Mcelroy MD [facility] [address] [place] [address] PCP - General Family Practice 05/07/22
--- OUTSIDE RECORDS SUMMARY | 2023-08-22 13:54 | XMS_ITS | Clinical Summary ---
Author Organization [facility] Address [address] [place] [id number] Care Team Providers Care Retail Department Manager Name Role Phone Tommy Mcelroy MD Primary Care Provider [phone] Allergies Active Allergy Reactions Criticality Noted Date Comments Baclofen 12/23/2012 Diphenhydramine-Zinc Acetate Other (See Comments) 04/24/2011 Makes restless leg symptoms worse. Compazine Anaphylaxis 10/23/2004 Cyclobenzaprine Other (See Comments) 04/24/2011 Makes restless leg symptoms worse. Cyclobenzaprine Hcl 12/23/2012 Methocarbamol Other (See Comments) 04/24/2011 Makes restless leg symptoms worse. Mirtazapine 12/23/2012 Bzcbeymtigiq-Satbabo-Fvux ine 12/23/2012 Medications Medication Sig Dispensed Refills Start Date End Date Status pramipexole (MIRAPEX) 0.125 MG tablet Take 0.125 mg by mouth At Bedtime 08/23/2008 Active dicyclomine (BENTYL) 20 MG tablet Take 20 mg by mouth 3 times daily Active OMEPRAZOLE PO Take 20 mg by mouth every morning Active Probiotic Product (PROBIOTIC DAILY PO) Take 1 capful by mouth daily Active senna-docusate (SENOKOT-S;PERICOLA CE) 8.6-50 MG per tabletIndications:L umbar radiculopathy Take 2 tablets by mouth 2 times daily as needed for constipation 120 tablet 1 03/02/2014 Active oxyCODONE (OXYCONTIN) 20 MG 12 hr tabletIndications:L umbar radiculopathy Take 1 tablet (20 mg) by mouth every 8 hours 90 tablet 0 03/07/2014 Active Additional Information Patient taking differently:20 mg OralEVERY 12 HOURS, Reported on 11/27/2014 OXYCODONE HCL PO Take 10 mg by mouth every 6 hours as needed Active ATENOLOL PO Active ClonazePAM (KLONOPIN PO) Take 5 mg by mouth 2 times daily as needed for anxiety Active CLONIDINE HCL PO Active sucralfate (CARAFATE) 1 GM/10ML suspension Take 10 mLs (1 g) by mouth 4 times daily 420 mL 1 11/27/2014 Active Active Problems Problem Noted Date Diagnosed Date Lumbar radiculopathy 03/02/2014 Allergic reaction caused by a drug 12/23/2012 CARDIOVASCULAR SCREENING; LDL GOAL LESS THAN 130 12/10/2009 Essential hypertension, benign RLS (restless legs syndrome) Resolved Problems Problem Noted Date Diagnosed Date Resolved Date Lumbar pain 02/28/2011 05/14/2011 Cervicalgia 02/11/2006 03/09/2006 Family History Medical History Relation Comments Asthma Daughter C.A.D. Maternal Grandfather C.A.D. Maternal Grandmother Breast Cancer Other cousin Neurologic Disorder Paternal Grandmother aneurys m Relation Status Comments Daughter Maternal Grandfather Maternal Grandmother Other Paternal Grandmother Social History Tobacco Use Types Packs/Day Years Used Date Smoking Tobacco: Former Cigarettes Q uit: 10/27/2013 Smokeless Tobacco: Never Alcohol Use Standard Drinks/Week Comments Yes 0 (1 standard drink = 0.6 oz pur e alcohol) 3 glasses yearly. Adolescent Education Answer Date Record ed Getting School Help Needed Not on file 01/08 Sex and Gender Information Value Date Recorded Sex Assigned at Not on file Gender Identity Not on file Sexual Orientation Not on file Last Filed Vital Signs Vital Sign Reading Time Taken Comments Blood Pressure 111/70 01/08/2023 1:50 PM [facility] Pulse 73 01/08/2023 1:50 PM [facility] Temperature 36.7 ??C (98 ??F) 01/08/2023 1:50 PM [facility] Respiratory Rate 18 01/08/2023 1:50 PM [facility] Oxygen Saturation 96% 01/08/2023 1:50 PM MIL[facility] P[facility] Inhaled Oxygen Concentration - - Weight 77.1 kg (170 lb) 11/27/2014 3:41 PM CDT Height 175.3 cm (5' 9) 11/27/2014 3:41 PM CDT Body Mass Index 25.1 11/27/2014 3:41 PM CDT Plan of Treatment Health Maintenance Due Date Last Done Comments ADVANCE CARE PLANNING 1962 ANNUAL REVIEW OF HM ORDERS [address] CT COLONOGRAPHY 1962 FIT 1962 FLEX SIG 1962 MAMMO SCREENING 1962 sDNA (Cologuard) 1962 COLONOSCOPY 1972 COLORECTAL CANCER SCREENING 1972 HIV SCREENING 1977 HEPATITIS C SCREENING 1980 MEDICARE ANNUAL WELLNESS VISIT 1980 LIPID 2002 LUNG CANCER SCREENING 2012 GLUCOSE 11/27/2017 11/27/2014, 02/11, 12/23/2012, Additional history exists COVID-19 Vaccine (2022- season) 2022 07/30/2021, 12/02/2020, 06/02/2020, Additional history exists RSV VACCINE ( & 60+) (1 - 1-dose 60+ series) 2022 PHQ-2 (once per calendar year) 2023 INFLUENZA VACCINE (#1) 2023 3, 11/17/2020, 11/26/2019, Additional history exists PAP 11/21/2025 11/21/2022, 11/21/2022 DTAP/TDAP/TD IMMUNIZATION (3 - Td or Tdap) 11/25/2029 11/26/2019, 03/20/2010, 05/15/2000 Pneumococcal Vaccine: Pediatrics (0 to 5 Years) and At-Risk Patients (6 to 64 Years) Aged Out 06/30/2012 No longer eligible based on patient's age to complete this topic ZOSTER IMMUNIZATION Completed 10/26/2018, 9 HPV IMMUNIZATION Aged Out No longer e ligible based on patient's age to complete this topic IPV IMMUNIZATION Aged Out No longer e ligible based on patient's age to complete this topic MENINGITIS IMMUNIZATION Aged Out No l onger eligible based on patient's age to complete this topic RSV MONOCLONAL ANTIBODY Aged Out No l onger eligible based on patient's age to complete this topic Medical Devices Implanted Type Area Ammunition Assembly I Laborer Device Identifier Shelf Expiration Date Model / Serial / Lot Graft Bone Foam Pack Vitoss 10ml PagerDuty Active Implanted:Qty: 1 on 05/02/2011 at [facility] N/A: Spine Lumbar 10/04/2012 / / [id number] Iom Supplies Implanted:Qty: 1 on 05/02/2011 at [facility] Cell Saver Standby Implanted:Qty: 1 on 05/02/2011 at [facility] Graft Bone Crush Canc 15ml [id number] Implanted:Qty: 1 on 05/02/2011 at [facility] N/A: Spine Lumbar [id number] / [id number] / 14x12 Align Implanted:Qty: 1 on 05/02/2011 at [facility] N/A: Spine Lumbar [id number] / / [id number] 16x12 Align Implanted:Qty: 1 on 05/02/2011 at [facility] N/A: Spine Lumbar [id number] / / [id number] 25mm Plate Implanted:Qty: 1 on 05/02/2011 at [facility] N/A: Spine Lumbar [id number] / / [id number] 25mm Screw Implanted:Qty: 4 on 05/02/2011 at [facility] N/A: Spine Lumbar [id number] / / [id number] Imp Washer Syn [place] 13.5x5.5mm Implanted:Qty: 2 on 05/02/2011 at [facility] N/A: Spine Lumbar 219.951 / / 0106 [id number] Imp Scr Syn Canc 6.6t946hj Ft Ti Implanted:Qty: 2 on 05/02/2011 at [facility] N/A: Spine Lumbar 418.025 / / 0106 [id number] Spf-Plus 60/M Implantable Spinal Fusion Stimulator Implanted:Qty: 1 on 03/02/2014 by Brock Sawyer MD at [facility] N/A: Back [employer] 07/03/2015 10-1398M / [id number] / Graft Bone Foam Pack Vitoss 10ml Bio Active Implanted:Qty: 1 on 03/02/2014 by Brock Sawyer MD at [facility] N/A: Back ORTHOVITA 09/10/2015 [id number] / / [id number] Imp Scr Medt 5.5/6.0mm Solera 6.5x45mm Ma [id number] Implanted:Qty: 4 on 03/02/2014 by Brock Sawyer MD at [facility] N/A: Back [employer] [id number] / / [id number] 2014 Imp Scr Medt 5.5/6.0mm Solera 8.5x70mm Ma [id number] Implanted:Qty: 2 on 03/02/2014 by Brock Sawyer MD at [facility] N/A: Back [employer] [id number] / / [id number] 01 MAR 2014 Imp Scr Set Medt Solera Break Off 5.5mm Ti [id number] Implanted:Qty: 6 on 03/02/2014 by Brock Sawyer MD at [facility] N/A: Back [employer] [id number] / / [id number] 01 MAR 2014 Imp Beltran Medt Solera Cvd 5.9e461sl Ti [id number] Implanted:Qty: 2 on 03/02/2014 by Brock Sawyer MD at [facility] N/A: Back [employer] [id number] / / [id number] 02 MAR 2014 Imp Scr Syn Can 4.0x20mm Ft Ss 206.020 Implanted:Qty: 2 on 03/02/2014 by rBock Sawyer MD at [facility] N/A: Back SYNTHES-STRATEC 206.020 / / Impulse Implanted:Qty: 1 on 03/02/2014 by Brock Sawyer MD at [facility] Explanted Type Area Ammunition Assembly I Laborer Device Identifier Shelf Expiration Date Model / Serial / Lot Imp Scr Danek Sext Can 6.5x40mm Legacy Ti Implanted:Qty: 2 on 05/02/2011 at [facility] Explanted:Qty: 2 on 03/02/2014 at [facility] N/A: Spine Lumbar [id number] / / [id number] 01MAY2011 Imp Scr Danek Set G4 Internal Hex [id number] Implanted:Qty: 4 on 05/02/2011 at [facility] Explanted:Qty: 4 on 03/02/2014 at [facility] N/A: Spine Lumbar [id number] / / [id number] 01MAY2011 Imp Beltran Danek Sext 60mm Ti [id number] Implanted:Qty: 2 on 05/02/2011 at [facility] Explanted:Qty: 2 on 03/02/2014 at [facility] N/A: Spine Lumbar [id number] / / [id number] 01MAY2011 Imp Scr Danek Sext Can 6.5x45mm Legacy Ti Implanted:Qty: 2 on 05/02/2011 at [facility] Explanted:Qty: 2 on 03/02/2014 at [facility] N/A: Spine Lumbar [id number] / / [id number] 01MAY2011 Description:BILATERAL SCREWS FROM S1, SCREW HEAD REMOVED, SCREW SHAFT REMAINS Procedures Procedure Name Priority Date/Time Associated Diagnosis Comments COMPREHENSIVE METABOLIC PANEL STAT 11/27/2014 4:05 PM CDT from Last 3 Months or Most Recently Relevant to Health Maintenance Results * (ABNORMAL) Comprehensive metabolic panel (11/27/2014 4:05 PM CDT) Sodium 139 133 - 144 mmol/L [facility] Potassium 4.0 3.4 - 5.3 mmol/L [facility] Chloride 105 94 - 109 mmol/L [facility] Carbon Dioxide 27 20 - 32 mmol/L [facility] Anion Gap 7 3 - 14 mmol/L [facility] Glucose 158(H) 70 - 99 mg/dL [facility] Urea Nitrogen 13 7 - 30 mg/dL [facility] Creatinine 0.76 0.52 - 1.04 mg/dL [facility] GFR Estimate 79 >60 mL/min/1. 7m2 [facility] Comment:Non GFR Calc GFR Estimate If Black >90 GFR Calc >60 mL/min/1. 7m2 [facility] Calcium 8.8 8.5 - 10.1 mg/dL [facility] Bilirubin Total 0.2 0.2 - 1.3 mg/dL [facility] Albumin 4.1 3.4 - 5.0 g/dL [facility] Protein Total 7.4 6.8 - 8.8 g/dL [facility] Alkaline Phosphatase 135 40 - 150 U/L [facility] ALT 55(H) 0 - 50 U/L [facility] AST 30 0 - 45 U/L [facility] Blood specimen (specimen) 11/27/2014 4:05 PM CDT 11/27/2014 4:14 PM CDT Ian Monsivais MD LAB - BLOOD ORDERABL ES [facility] [address] [place], [place] [address] [phone] from Last 3 Months or Most Recently Relevant to Health Maintenance Advance Directives For more information, please contact: [phone] * Full Code (Latest Code Status on File) Date Activated Date Inactivated Comments 05/02/2011 8:26 PM 05/06/2011 2:41 PM * Full Code Date Activated Date Inactivated Comments 05/02/2011 2:17 PM 05/02/2011 8:26 PM Care Teams Retail Department Manager Relationship Specialty Start Date End Date Tommy Mcelroy MD PCP - General Family Practice 04/16/11
--- OUTSIDE RECORDS SUMMARY | 2023-08-22 13:54 | XMS_ITS | Referral Summary ---
Author Organization [facility] Address [address] [place] [address] Care Team Providers Care Hide And Skin Processing Worker Name Role Phone Tommy Mcelroy MD Primary Care Provider [phone] Allergies Active Allergy Reactions Criticality Noted Date Comments Baclofen 12/23/2012 Diphenhydramine-Zinc Acetate Other (See Comments) 04/24/2011 Makes restless leg symptoms worse. Compazine Anaphylaxis 10/23/2004 Cyclobenzaprine Other (See Comments) 04/24/2011 Makes restless leg symptoms worse. Cyclobenzaprine Hcl 12/23/2012 Methocarbamol Other (See Comments) 04/24/2011 Makes restless leg symptoms worse. Mirtazapine 12/23/2012 Hzasxvmnajuq-Qdcewgl-Mcaq ine 12/23/2012 Medications Medication Sig Dispensed Refills [...] Lumbar pain 02/28/2011 05/14/2011 Cervicalgia 02/11/2006 03/09/2006 Social History Tobacco Use Types Packs/Day Years [...] Comments Blood Pressure 111/70 01/08/2023 1:50 PM STORE KEEPER Pulse 73 01/08/2023 1:50 PM STORE KEEPER Temperature 36.7 ??C (98 ??F) 01/08/2023 1:50 PM STORE KEEPER Respiratory Rate 18 01/08/2023 1:50 PM STORE KEEPER Oxygen Saturation 96% 01/08/2023 1:50 PM STORE KEEPER Inhaled Oxygen Concentration - - Weight 77.1 kg (170 lb) 11/27/2014 3:41 PM CDT Height 175.3 cm (5' 9) 11/27/2014 3:41 PM CDT Body Mass Index 25.1 11/27/2014 3:41 PM CDT Plan of Treatment Not on file Medical Devices Implanted Type Area Lead Burner Helper Device Identifier Shelf Expiration Date Model / Serial / Lot Graft Bone Foam Pack Vitoss 10ml Bio Active [id number] Implanted:Qty: 1 on 05/02/2011 at [facility] N/A: Spine Lumbar 10/04/20127169-2379 / / [id number] Iom Supplies Implanted:Qty: 1 on 05/02/2011 at [facility] Cell Saver Standby Implanted:Qty: 1 on 05/02/2011 at [facility] Graft Bone Crush Canc 15ml [id number] Implanted:Qty: 1 on 05/02/2011 at [facility] N/A: Spine Lumbar [id number] / [id number] / 14x12 Align Implanted:Qty: 1 on 05/02/2011 at [facility] N/A: Spine Lumbar [id number] / / [id number] 16x12 Align Implanted:Qty: 1 on 05/02/2011 at [facility] N/A: Spine Lumbar [id number] / / [id number] 25mm Plate Implanted:Qty: 1 on 05/02/2011 at [facility] N/A: Spine Lumbar [id number] / / [id number] 25mm Screw Implanted:Qty: 4 on 05/02/2011 at [facility] N/A: Spine Lumbar [id number] / / [id number] Imp Washer Syn [place] 13.5x5.5mm Implanted:Qty: 2 on 05/02/2011 at [facility] N/A: Spine Lumbar 219.951 / / 0106 [id number] Imp Scr Syn Canc 6.0u350ei Ft Ti Implanted:Qty: 2 on 05/02/2011 at [facility] N/A: Spine Lumbar 418.025 / / 0106 [id number] Spf-Plus 60/M Implantable Spinal Fusion Stimulator Implanted:Qty: 1 on 03/02/2014 by Brock Sawyer MD at [facility] N/A: Back [employer] 07/03/2015 10-1398M / [id number] / Graft Bone Foam Pack Vitoss 10ml Bio Active [id number] Implanted:Qty: 1 on 03/02/2014 by Brock Sawyer MD at [facility] N/A: Back ORTHOVITA 09/10/2015 [id number] / / [id number] Imp Scr Medt 5.5/6.0mm Solera 6.5x45mm Ma [id number] Implanted:Qty: 4 on 03/02/2014 by Brock Sawyer MD at [facility] N/A: Back [employer] [id number] / / [id number] 2014 Imp Scr Medt 5.5/6.0mm Solera 8.5x70mm Ma [id number] Implanted:Qty: 2 on 03/02/2014 by Brock Sawyer MD at [facility] N/A: Back [employer] [id number] / / [id number] 01 MAR 2014 Imp Scr Set Medt Solera Break Off 5.5mm Ti [id number] Implanted:Qty: 6 on 03/02/2014 by Brock Sawyer MD at [facility] N/A: Back [employer] [id number] / / [id number] 01 MAR 2014 Imp Beltran Medt Solera Cvd 5.6k332sb Ti [id number] Implanted:Qty: 2 on 03/02/2014 by Brock Sawyer MD at [facility] N/A: Back [employer] [id number] / / [id number] 02 MAR 2014 Imp Scr Syn Can 4.0x20mm Ft Ss 206.020 Implanted:Qty: 2 on 03/02/2014 by Brock Sawyer MD at [facility] N/A: Back SYNTHES-STRATEC 206.020 / / Impulse Implanted:Qty: 1 on 03/02/2014 by Brock Sawyer MD at [facility] Explanted Type Area Lead Burner Helper Device Identifier Shelf Expiration Date Model / Serial / Lot Imp Scr Danek Sext Can 6.5x40mm Legacy Ti Implanted:Qty: 2 on 05/02/2011 at [facility] Explanted:Qty: 2 on 03/02/2014 at [facility] N/A: Spine Lumbar [id number] / / [id number] 01MAY2011 Imp Scr Danek Set G4 Internal Hex [id number] Implanted:Qty: 4 on 05/02/2011 at [facility] Explanted:Qty: 4 on 03/02/2014 at [facility] N/A: Spine Lumbar [id number] / / [id number] 01MAY2011 Imp Beltran Danek Sext 60mm Ti [id number] Implanted:Qty: 2 on 05/02/2011 at [facility] Explanted:Qty: 2 on 03/02/2014 at [facility] N/A: Spine Lumbar [id number] / / [id number] 01MAY2011 Imp Scr Danek Sext Can 6.5x45mm Legacy Ti Implanted:Qty: 2 on 05/02/2011 at [facility] Explanted:Qty: 2 on 03/02/2014 at [facility] N/A: Spine Lumbar [id number] / / [id number] 01MAY2011 Description:BILATERAL SCREWS FROM S1, SCREW HEAD REMOVED, SCREW SHAFT REMAINS Procedures Procedure Name Priority Date/Time Associated Diagnosis Comments COMPREHENSIVE METABOLIC PANEL STAT 11/27/2014 4:05 PM CDT from Last 3 Months or Most Recently Relevant to Health Maintenance Results * (ABNORMAL) Comprehensive metabolic panel (11/27/2014 4:05 PM CDT) Sodium 139 133 - 144 mmol/L [facility] Potassium 4.0 3.4 - 5.3 mmol/L [facility] Chloride 105 94 - 109 mmol/L [facility] Carbon Dioxide 27 20 - 32 mmol/L [facility] Anion Gap 7 3 - 14 mmol/L [facility] Glucose 158(H) 70 - 99 mg/dL [facility] Urea Nitrogen 13 7 - 30 mg/dL [facility] Creatinine 0.76 0.52 - 1.04 mg/dL [facility] GFR Estimate 79 >60 mL/min/1. 7m2 [facility] Comment:Non GFR Calc GFR Estimate If Black >90 GFR Calc >60 mL/min/1. 7m2 [facility] Calcium 8.8 8.5 - 10.1 mg/dL [facility] Bilirubin Total 0.2 0.2 - 1.3 mg/dL [facility] Albumin 4.1 3.4 - 5.0 g/dL [facility] Protein Total 7.4 6.8 - 8.8 g/dL [facility] Alkaline Phosphatase 135 40 - 150 U/L [facility] ALT 55(H) 0 - 50 U/L [facility] AST 30 0 - 45 U/L [facility] Blood specimen (specimen) 11/27/2014 4:05 PM CDT 11/27/2014 4:14 PM CDT Ian Monsivais MD LAB - BLOOD ORDERABL ES [facility] [address] [address], [facility] [phone] from Last 3 Months or Most Recently Relevant to Health Maintenance Advance Directives For more information, please contact: [phone] * Full Code (Latest Code Status on File) Date Activated Date Inactivated Comments 05/02/2011 8:26 PM 05/06/2011 2:41 PM * Full Code Date Activated Date Inactivated Comments 05/02/2011 2:17 PM 05/02/2011 8:26 PM Care Teams Hide And Skin Processing Worker Relationship Specialty Start Date End Date Tommy Mcelroy MD PCP - General Family Practice 04/16/11
--- NOTE | 2023-08-22 14:00 | CRLHL7_ITS ---
For Patients: As a result of the Century Cures Act, medical imaging exams and procedure reports are released immediately into your electronic medical record. You may view this report before your referring provider. If you have questions, please contact your health care provider. BILATERAL SCREENING MAMMOGRAM WITH COMPUTER-AIDED DETECTION AND TOMOSYNTHESIS TECHNIQUE: CC and MLO views were obtained. These mammographic images have been obtained using full-field digital technique. These mammographic images were interpreted with the benefit of computer-aided detection. Breast Tomosynthesis was used in this interpretation. COMPARISON FILM: 07/31/22, 01/12/21, 11/26/19. FINDINGS: The breasts are heterogeneously dense, which may obscure small masses. IMPRESSION: There is no radiographic evidence for malignancy. ASSESSMENT: BI-RADS Category 1: Negative RECOMMENDATION: Routine screening mammogram in 1 year. A lay language report of this examination will be provided to the patient. Ronald Porter M.D. Diagnostic Radiologist [email or web address] SP/Dictated by: Ronald Porter MD @ 08/25/2023 12:17:00 PM (Electronically Signed)
== END 2023-08-22 13:52 | disposition home or self-care (01) ==
PROVIDERS: PCP Family Medicine; Visit Provider Family Medicine
DX: Z12.31 Encounter for screening mammogram for malignant neoplasm of breast (principal); R92.2 Inconclusive mammogram
CPT/HCPCS: 77063; 77067

== ENCOUNTER 2023-09-16 09:46 | Outpatient (CLI) | payer MEDICARE, OTHER, SELFPAY | END 2023-09-16 09:47 | disposition home or self-care (01) | PROVIDERS: PCP Family Medicine; Visit Provider Family Medicine | DX: E78.2 Mixed hyperlipidemia (principal); E13.9 Other specified diabetes mellitus without complications | CPT/HCPCS: 80048; 80061 ==

== ENCOUNTER 2023-11-30 15:48 | Outpatient (CLI) | payer OTHER, SELFPAY ==
--- OUTSIDE RECORDS SUMMARY | 2023-12-04 03:28 | XMS_ITS | Referral Summary ---
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 ordered and performed in the main laboratory. Blood 11/30/2023 7:02 PM CDT 11/30/2023 7:08 PM CDT Jian Howell MD LABORATORY Performing Organization Address City/[facility]/ZIP Co de Phone Number [facility] [address] [address] * EXTRA TUBE - SST (11/30/2023 7:02 PM CDT) [facility] SST TUBE Stored [facility] Comment:SST tubes (Serum Sep arator) are stored in the lab for 3 days from the collection date. Blood 11/30/2023 7:02 PM CDT 11/30/2023 7:09 PM CDT Jian Howell MD LABORATORY Performing Organization Address City/[facility]/ZIP Co de Phone Number [facility] [address] [address] * HS TROPONIN (11/30/2023 7:02 PM CDT) [facility] HS Troponin I <3 <=14 ng/L [facility] Blood 11/30/2023 7:02 PM CDT 11/30/2023 7:08 PM CDT Narrative [facility] - 11/30/2023 7:34 PM CDT First Occurrence of the Troponin order is to be drawn Stat by Nursing staff on the unit. Jian Howell MD LABORATORY Performing Organization Address City/[facility]/ZIP Co de Phone Number [facility] [address] [address] * (ABNORMAL) ED CHEMISTRY LABS(NA,K,CL,CO2,GLU,CREAT,CA-IONIZED,ANION GAP) (11/30/2023 7:02 PM CDT) Sodium 140 135 - 148 mmol/L [facility] Chloride 111(H) 92 - 108 mmol/L [facility] AnGap 7(L) 8 - 16 mmol/L [facility] Glucose 99 70 - 100 mg/dL [facility] ICA, Actual 4.40 4.40 - 5.20 mg/dL [facility] ICA, pH Corrected 4.50 4.40 - 5.20 mg/dL [facility] Creatinine 0.95 0.50 - 1.00 mg/dL [facility] BICARB 22 22 - 26 mEq/L [facility] eGFR (2020 CKD-EPI) 68 >=60 ml/min/1.7 3m2 [facility] Comment: The estimated glomerular filtration rate (eGFR) was calculated using the CKD-EPI 2020 creatinine equation, which does not include race as a factor. This equation is validated in individuals 18 years of age and older, and eGFR is normalized to a body surface area of 1.73m^2. Potassium 4.5 3.5 - 5.3 mmol/L [facility] Blood 11/30/2023 7:02 PM CDT 11/30/2023 7:09 PM CDT Jian Howell MD LABORATORY Performing Organization Address City/[facility] Co de Phone Number [facility] [address] [address] * (ABNORMAL) ED HEMOGLOBIN TOTAL (ED ONLY) (11/30/2023 7:02 PM CDT) Hgb 10.2(L) 11.5 - 15.7 g/dL [facility] Blood 11/30/2023 7:02 PM CDT 11/30/2023 7:09 PM CDT Jian Howell MD LABORATORY Performing Organization Address City/[facility] Co de Phone Number [facility] [address] [address] * PRECAUTIONARY TUBE (11/30/2023 7:02 PM CDT) Prec Tube Precautionary Blood Bank Specimen Received. [facility] Blood 11/30/2023 7:02 PM CDT 11/30/2023 7:17 PM CDT Jian Howell MD LAB TRANSFUSION SERV ICES Performing Organization Address City/[facility] Co de Phone Number [facility] [address] [address] * (ABNORMAL) PANEL HEPATIC FUNCTION (11/30/2023 7:02 PM CDT) Total Protein 6.0(L) 6.4 - 8.3 g/dL [facility] Albumin 4.2 3.8 - 5.1 g/dL [facility] Bili Total <0.2 <=1.2 mg/dL [facility] Bili Direct na <=0.3 mg/dL [facility] Comment:BILID < 0.2. Accurac y of result suspect due to hemolysis. Alk Phos 104 35 - 104 IU/L [facility] Comment:No reference range e stablished for patients <18 years old. ALT (SGPT) na <=33 IU/L [facility] Comment:ALT = 8. Accuracy of result suspect due to hemolysis. AST(SGOT) na 5 - 40 IU/L [facility] Comment:AST = 20. Accuracy o f result suspect due to hemolysis. Blood 11/30/2023 7:02 PM CDT 11/30/2023 7:17 PM CDT Jian Howell MD LABORATORY [facility] [address] [address] * LACTATE (LACTIC ACID) (11/30/2023 7:02 PM CDT) Lactate 1.5 0.7 - 2.1 mmol/L [facility] Blood 11/30/2023 7:02 PM CDT 11/30/2023 7:09 PM CDT Narrative [facility] - 11/30/2023 7:16 PM CDT Send specimen on ice! Jian Howell MD LABORATORY Performing Organization Address [facility] Co de Phone Number [address] [address] * (ABNORMAL) BLOOD GASES (11/30/2023 7:02 PM CDT) PH Juvenal 7.40 7.32 - 7.42 [facility] PCO2 Juvenal 38(L) 41 - 51 mmHG [facility] PO2 Juvenal 39 25 - 40 mmHG [facility] Bicarb Juvenal 23(L) 24 - 28 mEq/L [facility] O2 Sat Juvenal 73 % [facility] Base Exc Juvenal -1.2 -10.0 - 2.0 mmol/L [facility] Blood Venous 11/30/2023 7:02 PM CDT 11/30/2023 7:09 PM CDT Jian Howell MD LABORATORY Performing Organization Address [facility] Co de Phone Number [address] [address] * FIBRINOGEN (11/30/2023 7:02 PM CDT) Fibrinogen 222 200 - 400 mg/dL [facility] Blood 11/30/2023 7:02 PM CDT 11/30/2023 7:17 PM CDT Jian Howell MD LABORATORY Performing Organization Address [facility] Co de Phone Number [address] [address] * ETHANOL (ETOH) LEVEL, BLOOD (11/30/2023 7:02 PM CDT) Ethanol Negative Negative g/dL [facility] Blood 11/30/2023 7:02 PM CDT 11/30/2023 7:17 PM CDT Jian Howell MD LABORATORY Performing Organization Address [facility] Co de Phone Number [facility] [address] [address] * CK, TOTAL (11/30/2023 7:02 PM CDT) CK na 26 - 192 [facility] Comment:CK = 82. Accuracy of result suspect due to hemolysis. Blood 11/30/2023 7:02 PM CDT 11/30/2023 7:54 PM CDT Gonzalez Engle MD LABORATOR Y Performing Organization Address City/[facility]/ZIP Co de Phone Number [facility] [address] [address] * PTT (APTT) (11/30/2023 7:02 PM CDT) APTT 31.0 25.0 - 37.0 sec [facility] Blood 11/30/2023 7:02 PM CDT 11/30/2023 7:17 PM CDT Jian Howell MD LABORATORY Performing Organization Address [facility] Co de Phone Number [address] [address] * ED US CRITICAL CARE (11/30/2023 6:59 PM CDT) Anatomical Region Laterality Modality Ultrasound Narrative 11/30/2023 7:31 PM CDT ED Trauma eFAST Ultrasound Indications: Blunt Trauma, Suspicion of Abdomen Fluid/Blood, Suspicion of Pneumothorax/Hemothorax, and Other general symptoms and signs Window: Cardiac Window, Heptorenal Window, Perisplenic Window, Pelvic Window, and Thoracic Window Findings: No Pericardial Effusion identified, No Free Intraperitoneal Fluid identified, No Pleural Effusion identified, and Lung Sliding Present Bilaterally Impression: No Pericardial Effusion identified, No Free Intraperitoneal Fluid identified, No Pleural Effusion identified, and No Pneumothorax Identified Aubree Lloyd MD, 11/30/2023 7:28 PM ED Attending Ultrasound Note: I have personally reviewed the image(s) and initial interpretation, and I agree with the findings as documented. Jian Howell MD, 11/30/2023 7:31 PM Jian Howell MD RAD ED ULT * XR LOWER EXTREMITY OUTSIDE FILMS (11/30/2023 4:55 PM CDT) Only the most recent of5 resultswithin the time period is included. Narrative Genny [id number] - 12/01/2023 9:32 AM CDT Outside Film Only Outside Provider RAD OUTSIDE FILMS * PANEL LIPID (03/19/2009 5:24 AM [employer]) Cholesterol 167 0 - 200 mg/dL [facility] Triglyceride 73 10 - 160 mg/dL [facility] HDL 53 40 - 75 mg/dL [facility] Blood specimen (specimen) 03/19/2009 5:24 AM [employer] 03/19/2009 5:59 AM [employer] Narrative [facility] - 03/19/2009 7:19 AM [employer] Fasting: Yes Joaquin Lozano MD LABORATORY [facility] from Last 3 Months or Most Recently Relevant to Health Maintenance Advance Directives For more information, please contact: [phone] * DNR (Latest Code Status on File) Date Activated Date Inactivated Comments 12/01/2023 1:14 PM 12/03/2023 7:14 PM Question Answer Comments Does the Patient have prefer ences regarding life sustaining measures (these options only apply when the patient has a pulse): No Discussed Code Status With Whom? Patient * Full Code Date Activated Date Inactivated Comments 03/18/2009 3:55 PM 03/19/2009 1:40 PM Question Answer Comments Discussed Code Status With Whom? Not discussed Care Teams Printing Bindery Assistant Relationship Specialty Start Date End Date Pcp, No [facility] NO PCP SAHARA LEE [id number] PCP - General 03/18/09
--- OUTSIDE RECORDS SUMMARY | 2023-12-04 03:28 | XMS_ITS | Clinical Summary ---
Author Organization [facility] Address [address] [place], [place] [address] [address] Phone Care Team Providers Care Storage Center Manager Name Role Phone Pcp, No Primary Care Provider Unavailabl e Source Comments [facility] is fully rolled out on [employer]. Last update 07/15/08.[facility] Allergies Active Allergy Reactions Criticality Noted Date [...] mg) by mouth daily. 56 tablet 12/04/19 024 Active naloxone (NARCAN) 4 mg/0.1 mL nasal [...] treatment of post-operative pain. 21 tablet 12/03/19 24 024 Active polyethylene glycol 3350 (MIRALAX/GLUCOLAX) 17 gm/scoop oral powder Mix 1 tablespoon (17 g) with a full glass of water and drink daily as needed for constipation. 238 g 3 12/03/19 Active Pramipexole Dihydrochloride (MIRAPEX ORAL) Take by mouth. 024 Discontinued(Er ror) naloxone (NARCAN) 4 mg/0.1 mL [...] to substitute per insurance. 0.1 mL 12/03/19 024 Discontinued Active Problems Problem Noted Date Diagnosed Date Cervical stenosis of spinal canal 12/01/2023 Depression 12/01/2023 Essential hypertension, benign 12/01/2023 GERD (gastroesophageal reflux disease) HLD (hyperlipidemia) 12/01/2023 Anxiety 12/01/2023 Closed fracture fibula, head, left, initial enco unter 12/01/2023 Chronic anemia 08/22/2021 Type 2 diabetes mellitus wit hout complication, without long-term current use of insulin ([facility]) 08/21/2021 History of lumbar fusion 06/27/2020 IBS (irritable bowel syndrome) 06/27/2020 Opioid dependence with current use ([facility]) Lumbar radiculopathy 03/02/2014 Cocaine abuse ([facility]) 03/18/2009 Alcohol abuse 03/18/2009 RLS (restless legs syndrome) 03/18/2009 Encounters Date Type Department Care Team Description 12/01/2023 6:32 AM CDT Anesthesia Event OR [facility]4 [address] [place] [id number] Joaquin Herrera MD Teslaa, Polly A RN 12/01/2023 6:15 AM CDT - 12/01/2023 8:23 AM CDT Surgery OR P4 [address] [place] [id number] Lotus Varela MD FASCIOTOMY, LOWER EXTREMITY 12/01/2023 Travel 12/01/2023 Orders Only [facility] Radiology Department [place] [address] [place] [address]. [address] [address] Provider, Outside Referral of patient (Primary Dx) 11/30/2023 6:58 PM CDT - 12/03/2023 3:46 PM CDT Hospital Encounter [facility] Orthopaedic Arden Perez [address] [place] [address] Gonzalez Engle MD Wright, MD Jigar Bedolla, Kory Espinal MD Closed fracture fibula, head, left, initial encounter Discharge Disposition: Discharged to home or self care from Last 3 Months Immunizations Name Administration Dates Next Due COVID-19 [...] st Contact Info) Description 12/15/2023 1:00 PM MANAGER TRAVEL [facility] [address] [place] [address] Scheduled Discharge Disposition: Discharged to home or self care Health Maintenance Due Date Last Done Comments CT Colonography 1962 Colonoscopy 1962 Colorectal Cancer Screening 1962 Dental Oral Exam 1962 Dental Prophylaxis 1962 Dental X-Ray: Bitewings 1962 FIT/Cologuard 1962 Hepatitis C Screening 1962 Sigmoidoscopy 1962 iFOB/FIT 1962 Diabetes Education 11/21/1963 Diabetes Eye Exam 11/21/1963 Diabetes Foot Exam 11/21/1963 Diabetes Microalbumin Screening 11/21/1963 Diabetic Education Protocol (CDE) 11/21/1963 Diabetic Lab Protocol 11/21/1963 Periodontal Maintenance 1976 HIV Screening 1977 Medicare Annual Wellness 1980 PREVENTATIVE VISIT 1980 HEALTH MAINTENANCE PROTOCOL 1981 Breast Cancer Screening 11/07/2011 11/06/2009 Imm: Pneumonia Peds or At-Risk less than 65 years (2 of 2 - PCV) 06/30/2013 06/30/2012 Lipid Screening 03/19/2014 03/19/2009, 03/19/2009 Diabetes HGB A1C Q 3 Months (Goal <7) 04/16/2022 01/16/2022, 01/16/2022, 12/02/2019 Imm: COVID-19 ( season) 2023 08/12/2023, 07/30/2021, 12/02/2020, Additional history exists Imm: Flu (#1) 10/12/2023 11/21/2022, 09/2020, 11/26/2019, Additional history exists Cervical Cancer Screening Age 30-65 11/22/2027 11/21/2022, 07/28/2017 Imm: DTaP/Tdap (4 - Td or Tdap) 11/25/2029 11/26/2019, 03/20/2010, 05/15/2000 Imm: Zoster Completed 10/26/2018, 08/17/2018 Imm: HPV Aged Out No longer eligi ble based on patient's age to complete this topic Imm: HepA Aged Out No longer eligi ble based on patient's age to complete this topic Imm: HepB Aged Out No longer eligi ble based on patient's age to complete this topic Imm: Hib Aged Out No longer eligi ble based on patient's age to complete this topic Imm: Meningitis Aged Out No longer el igible based on patient's age to complete this topic Procedures Procedure Name Priority Date/Time Associated Diagnosis [...] syndrome of left lower extremity, initial encounter ([facility]) FASCIOTOMY, LOWER EXTREMITY Emergent (JERARDO) 12/01/2023 6:22 AM CDT Traumatic compartment syndrome of left lower extremity, initial encounter ([facility]) CT LOW EXTREMITY LEFT NO IV CON [...] patient PANEL LIPID Routine 03/19/2009 5:24 AM MANAGER TRAVEL from Last 3 Months or Most Recently Relevant to Health Maintenance Results * (ABNORMAL) CBC WITH PLTS/AUTO DIFF (12/03/2023 4:29 AM CDT) Only the most recent of3 resultswithin the time period is included. WBC 5.82 4.00 - 10.00 k/cmm [facility] RBC 3.61(L) 3.90 - 5.20 m/cmm [facility] Hgb 9.0(L) 11.5 - 15.7 g/dL [facility] Hematocrit 29.6(L) 34.0 - 45.0 % [facility] MCV 82.0 80.0 - 100.0 fL [facility] MCH 24.9(L) 25.0 - 32.0 pg [facility] MCHC 30.4(L) 31.0 - 36.0 g/dL [facility] RDW 17.2(H) 11.5 - 14.5 % [facility] Plt 192 150 - 400 k/cmm [facility] MPV 9.4 6.5 - 12.5 fL [facility] Automated Abs Neutrophil 3.14 1.70 - 6.50 k/cmm [facility] Comment:Preliminary ANC, Fin al Result to Follow Abs Immature Granulocyte 0.02 0.00 - 0.09 k/cmm [facility] Comment:The Immature Granulo cyte Absolute count contains metamyelocytes and myelocytes. Abs Neutrophil 3.14 1.70 - 6.50 k/cmm [facility] Abs Lymphocyte 1.89 0.80 - 4.00 k/cmm [facility] Abs Monocyte 0.47 0.20 - 1.00 k/cmm [facility] Abs Eosinophil 0.28 0.00 - 0.60 k/cmm [facility] Abs Basophil 0.02 0.00 - 0.20 k/cmm [facility] Blood 12/03/2023 4:29 AM CDT 12/03/2023 5:58 AM CDT Kory Kimball MD LABORATORY Performing Organization Address City/[facility]/ZIP Co de Phone Number [facility] [address] [address] * PHOSPHORUS (12/03/2023 4:29 AM CDT) Phosphorus 3.0 2.5 - 4.5 mg/dL [facility] Blood 12/03/2023 4:29 AM CDT 12/03/2023 5:58 AM CDT Kory Kimball MD LABORATORY [facility] [address] [address] * (ABNORMAL) PANEL BASIC METABOLIC (BMP) (12/03/2023 4:29 AM CDT) Only the most recent of2 resultswithin the time period is included. Sodium 143 135 - 148 mmol/L [facility] Potassium 3.5 3.5 - 5.3 mmol/L [facility] Chloride 110(H) 92 - 108 mmol/L [facility] CO2 25 22 - 30 mmol/L [facility] Glucose 130(H) 70 - 100 mg/dL [facility] BUN 14 8 - 23 mg/dL [facility] Creatinine 0.66 0.50 - 1.00 mg/dL [facility] Calcium 8.5(L) 8.8 - 10.2 mg/dL [facility] AnGap 8 8 - 16 mmol/L [facility] eGFR (2020 CKD-EPI) 100 >=60 ml/min/1.7 3m2 [facility] Comment: The estimated glomerular filtration rate (eGFR) was calculated using the CKD-EPI 2020 creatinine equation, which does not include race as a factor. This equation is validated in individuals 18 years of age and older, and eGFR is normalized to a body surface area of 1.73m^2. Blood 12/03/2023 4:29 AM CDT 12/03/2023 5:58 AM CDT Kory Kimball MD LABORATORY Performing Organization Address City/[facility] Co de Phone Number [facility] [address] [address] * MAGNESIUM (12/03/2023 4:29 AM CDT) Pathologist [facility] Magnesium 2.1 1.6 - 2.4 mg/dL [facility] Blood 12/03/2023 4:29 AM CDT 12/03/2023 5:58 AM CDT Kory Kimball MD LABORATORY [facility] [address] [address] * VITAMIN G90-OGFQNO TO MMA (12/02/2023 4:42 AM CDT) B12 340 211 - 946 pg/mL [facility] Blood 12/02/2023 4:42 AM CDT 12/02/2023 5:19 AM CDT Joaquin Snow MD LABORATORY Performing Organization Address City/[facility] Co de Phone Number [facility] [address] [address] * (ABNORMAL) TRANSFERRIN (INCLUDES TIBC) (12/02/2023 4:42 AM CDT) Transferrin 230 200 - 360 mg/dL [facility] IBC 343 298 - 536 mcg/dL [facility] Iron Saturation Percent 6(L) 20 - 50 % [facility] Blood 12/02/2023 4:42 AM CDT 12/02/2023 5:19 AM CDT Joaquin Snow MD LABORATORY Performing Organization Address City/[facility]/ZIP Co de Phone Number [facility] [address] [address] * (ABNORMAL) IRON (12/02/2023 4:42 AM CDT) Iron 19(L) 35 - 145 mcg/dL [facility] Blood 12/02/2023 4:42 AM CDT 12/02/2023 5:19 AM CDT Joaquin Snow MD LABORATORY Performing Organization Address City/[facility] Co de Phone Number [facility] [address] [address] * FERRITIN (12/02/2023 4:42 AM CDT) Ferritin 18.0 13.0 - 150.0 ng/mL [facility] Comment: Test Performed by: [facility] [address] [place] [id number] Blood 12/02/2023 4:42 AM CDT 12/02/2023 5:19 AM CDT Joaquin Snow MD LABORATORY [facility] [address] [address] * XR SHOULDER RT 2/3V AP/GRASH/Y* (12/01/2023 [...] osseous abnormality. Previous cervical spinesurgery Reading Radiologist: Roanld Nunn Pema Miranda PA-C RAD XRAY * [...] osseous injury. Reading Radiologist: Irwin Heredia Pema Miranda PA-C RAD XRAY * (ABNORMAL) POC GLUCOSE (12/01/2023 9:07 AM CDT) Only the most recent of2 resultswithin the time period is included. POC Glucose 108(H) 70 - 100 mg/dL [facility] Blood 12/01/2023 9:07 AM CDT Gonzalez Engle MD LABORATOR Y [facility] [address] [place] [address], * Intubation/Airway (12/01/2023 6:52 AM CDT) Narrative [...] at 22 cm to Lips Grade: I Nicolette used Narrative 1 intubation attempt(s) confirmed in 0-30 sec using BVM ventilation between attempts ?? Intubation Assessment: +ETCO2 and EBBS ?? Ease of intubation (I-easy to IV-difficult): I Dentition Assessment: dentition unchanged and oral mucosa unchanged Performed by: POWER TOOL REPAIR TECHNICIAN: Seltun, Eric D, AUTOMOTIVE PARTS SALESPERSON, CRNAAnesthesiologist: Emir Bullock MD Additional Notes RSI [...] and patellar apex. Reading Radiologist: Lester Graves Narrative 11/30/2023 10:03 PM CDT Comparison: None Indication: [...] PM CDT) 11/30/2023 7:09 PM CDT Impressions [facility]IS EKG ORDERS - 11/30/2023 7:09 PM CDT SINUS RHYTHM POSSIBLE RIGHT ATRIAL ENLARGEMENT ??[0.25mV P-WAVE] BORDERLINE ECG P-R Interval 176 ms QRS Interval 95 ms QT Interval 390 ms QTC Interval 434 ms P Sunflower 78 QRS Sunflower 77 T Wave Sunflower 76 Narrative Procedure Note Greg Posey MD - 12/01/2023 IMPRESSION SINUS RHYTHM POSSIBLE RIGHT ATRIAL ENLARGEMENT [0.25mV P-WAVE] BORDERLINE ECG P-R Interval 176 ms QRS Interval 95 ms QT Interval 390 ms QTC Interval 434 ms P Sunflower 78 QRS Sunflower 77 T Wave Sunflower 76 Jian Howell MD EKG Performing Organization Address [facility] Co de Phone Number [facility] CVIS EKG ORDERS * ED INR (11/30/2023 7:02 PM CDT) Pathologist [facility] ED INR 1.0 0.8 - 1.1 [facility] Comment: Warfarin Therapeutic Range: Standard Intensity: 2.0 - 3.0 High Intensity: 2.5 - 3.5 This is a rapid INR screening test which uses whole blood; results may infrequently differ from plasma INR results. If medication adjustments/dosing are required a PT/INR test ([id number]) should be ordered and performed in the main laboratory. Blood 11/30/2023 7:02 PM CDT 11/30/2023 7:08 PM CDT Jian Howell MD LABORATORY Performing Organization Address [facility] Co de Phone Number [facility] [address] [address] * EXTRA TUBE - SST (11/30/2023 7:02 PM CDT) Pathologist [facility] SST TUBE Stored [facility] Comment:SST tubes (Serum Sep arator) are stored in the lab for 3 days from the collection date. Blood 11/30/2023 7:02 PM CDT 11/30/2023 7:09 PM CDT Jian Howell MD LABORATORY Performing Organization Address [facility] Co de Phone Number [facility] [address] [address] * HS TROPONIN (11/30/2023 7:02 PM CDT) Pathologist [facility] HS Troponin I <3 <=14 ng/L [facility] Blood 11/30/2023 7:02 PM CDT 11/30/2023 7:08 PM CDT Narrative [facility] - 11/30/2023 7:34 PM CDT First Occurrence of the Troponin order is to be drawn Stat by Nursing staff on the unit. Jian Howell MD LABORATORY Performing Organization Address [facility] Co de Phone Number [facility] [address] [address] * (ABNORMAL) ED CHEMISTRY LABS(NA,K,CL,CO2,GLU,CREAT,CA-IONIZED,ANION GAP) (11/30/2023 7:02 PM CDT) Sodium 140 135 - 148 mmol/L [facility] Chloride 111(H) 92 - 108 mmol/L [facility] AnGap 7(L) 8 - 16 mmol/L [facility] Glucose 99 70 - 100 mg/dL [facility] ICA, Actual 4.40 4.40 - 5.20 mg/dL [facility] ICA, pH Corrected 4.50 4.40 - 5.20 mg/dL [facility] Creatinine 0.95 0.50 - 1.00 mg/dL [facility] BICARB 22 22 - 26 mEq/L [facility] eGFR (2020 CKD-EPI) 68 >=60 ml/min/1.7 3m2 [facility] Comment: The estimated glomerular filtration rate (eGFR) was calculated using the CKD-EPI 2020 creatinine equation, which does not include race as a factor. This equation is validated in individuals 18 years of age and older, and eGFR is normalized to a body surface area of 1.73m^2. Potassium 4.5 3.5 - 5.3 mmol/L [facility] Blood 11/30/2023 7:02 PM CDT 11/30/2023 7:09 PM CDT Jian Howell MD LABORATORY Performing Organization Address [facility] Co de Phone Number [facility] [address] [address] * (ABNORMAL) ED HEMOGLOBIN TOTAL (ED ONLY) (11/30/2023 7:02 PM CDT) Hgb 10.2(L) 11.5 - 15.7 g/dL [facility] Blood 11/30/2023 7:02 PM CDT 11/30/2023 7:09 PM CDT Jian Howell MD LABORATORY Performing Organization Address City/[facility]/ZIP Co de Phone Number [facility] [address] [address] * PRECAUTIONARY TUBE (11/30/2023 7:02 PM CDT) Prec Tube Precautionary Blood Bank Specimen Received. [facility] Blood 11/30/2023 7:02 PM CDT 11/30/2023 7:17 PM CDT Jian Howell MD LAB TRANSFUSION SERV ICES Performing Organization Address [facility]/ZIP Co de Phone Number [facility] [address] [address] * (ABNORMAL) PANEL HEPATIC FUNCTION (11/30/2023 7:02 PM CDT) Total Protein 6.0(L) 6.4 - 8.3 g/dL [facility] Albumin 4.2 3.8 - 5.1 g/dL [facility] Bili Total <0.2 <=1.2 mg/dL [facility] Bili Direct na <=0.3 mg/dL [facility] Comment:BILID < 0.2. Accurac y of result suspect due to hemolysis. Alk Phos 104 35 - 104 IU/L [facility] Comment:No reference range e stablished for patients <18 years old. ALT (SGPT) na <=33 IU/L [facility] Comment:ALT = 8. Accuracy of result suspect due to hemolysis. AST(SGOT) na 5 - 40 IU/L [facility] Comment:AST = 20. Accuracy o f result suspect due to hemolysis. Blood 11/30/2023 7:02 PM CDT 11/30/2023 7:17 PM CDT Jian Howell MD LABORATORY Performing Organization Address City/[facility]/ZIP Co de Phone Number [facility] [address] [address] * LACTATE (LACTIC ACID) (11/30/2023 7:02 PM CDT) Lactate 1.5 0.7 - 2.1 mmol/L [facility] Blood 11/30/2023 7:02 PM CDT 11/30/2023 7:09 PM CDT Narrative [facility] - 11/30/2023 7:16 PM CDT Send specimen on ice! Jian Howell MD LABORATORY Performing Organization Address City/[facility]/ZIP Co de Phone Number [facility] [address] [address] * (ABNORMAL) BLOOD GASES (11/30/2023 7:02 PM CDT) PH Juvenal 7.40 7.32 - 7.42 [facility] PCO2 Juvenal 38(L) 41 - 51 mmHG [facility] PO2 Juvenal 39 25 - 40 mmHG [facility] Bicarb Juvenal 23(L) 24 - 28 mEq/L [facility] O2 Sat Juvenal 73 % [facility] Base Exc Juvenal -1.2 -10.0 - 2.0 mmol/L [facility] Blood Venous 11/30/2023 7:02 PM CDT 11/30/2023 7:09 PM CDT Jian Howell MD LABORATORY Performing Organization Address [facility] Co de Phone Number [facility] [address] [address] * FIBRINOGEN (11/30/2023 7:02 PM CDT) Fibrinogen 222 200 - 400 mg/dL [facility] Blood 11/30/2023 7:02 PM CDT 11/30/2023 7:17 PM CDT Jian Howell MD LABORATORY Performing Organization Address City/[facility]/ZIP Co de Phone Number [facility] [address] [address] * ETHANOL (ETOH) LEVEL, BLOOD (11/30/2023 7:02 PM CDT) Ethanol Negative Negative g/dL [facility] Blood 11/30/2023 7:02 PM CDT 11/30/2023 7:17 PM CDT Jian Howell MD LABORATORY Performing Organization Address [facility] Co de Phone Number [facility] [address] [address] * CK, TOTAL (11/30/2023 7:02 PM CDT) CK na 26 - 192 [facility] Comment:CK = 82. Accuracy of result suspect due to hemolysis. Blood 11/30/2023 7:02 PM CDT 11/30/2023 7:54 PM CDT Gonzalez Engle MD LABORATOR Y Performing Organization Address [facility] Co de Phone Number [address] [address] * PTT (APTT) (11/30/2023 7:02 PM CDT) APTT 31.0 25.0 - 37.0 sec [facility] Blood 11/30/2023 7:02 PM CDT 11/30/2023 7:17 PM CDT Jian Howell MD LABORATORY Performing Organization Address [facility] Co de Phone Number [address] [address] * ED US CRITICAL CARE (11/30/2023 6:59 [...] resultswithin the time period is included. Narrative User, Frhd-Iesiha-Blrludhzo - 12/01/2023 9:32 AM CDT Outside Film Only Outside Provider RAD OUTSIDE FILMS * PANEL LIPID (03/19/2009 5:24 AM MANAGER TRAVEL) Cholesterol 167 0 - 200 mg/dL [facility] Triglyceride 73 10 - 160 mg/dL [facility] HDL 53 40 - 75 mg/dL [facility] Blood specimen (specimen) 03/19/2009 5:24 AM MANAGER TRAVEL 03/19/2009 5:59 AM MANAGER TRAVEL Narrative [facility] - 03/19/2009 7:19 AM MANAGER TRAVEL Fasting: Yes Joaquin Lozano MD LABORATORY [facility] from Last 3 Months or Most Recently Relevant to Health Maintenance Advance Directives For more information, please contact: [phone] * DNR (Latest Code Status on File) [...] Status With Whom? Not discussed Care Teams Storage Center Manager Relationship Specialty Start Date End Date Pcp, [place] [address] PCP - General 03/18/09
--- OUTSIDE RECORDS SUMMARY | 2023-12-04 03:29 | XMS_ITS | Encounter Summary ---
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 [facility] Co de Phone Number [facility] [address] [address] * HS TROPONIN (11/30/2023 7:02 PM CDT) Pathologist [facility] HS Troponin I <3 <=14 ng/L [facility] Blood 11/30/2023 7:02 PM CDT 11/30/2023 7:08 PM CDT Narrative [facility] - 11/30/2023 7:34 PM CDT First Occurrence of the Troponin order is to be drawn Stat by Nursing staff on the unit. Jian Howell MD LABORATORY Performing Organization Address [facility] Co de Phone Number [facility] [address] [place] [address] * ETHANOL (ETOH) LEVEL, BLOOD (11/30/2023 7:02 PM CDT) [facility] Ethanol Negative Negative g/dL [facility] Blood 11/30/2023 7:02 PM CDT 11/30/2023 7:17 PM CDT Jian Howell MD LABORATORY Performing Organization Address City/[facility] Co de Phone Number [facility] [address] [address] * PTT (APTT) (11/30/2023 7:02 PM CDT) [facility] APTT 31.0 25.0 - 37.0 sec [facility] Blood 11/30/2023 7:02 PM CDT 11/30/2023 7:17 PM CDT Jian Howell MD LABORATORY Performing Organization Address [facility] Co de Phone Number [facility] [address] [address] * ED INR (11/30/2023 7:02 PM CDT) [facility] ED INR 1.0 0.8 - 1.1 [facility] Comment: Warfarin Therapeutic Range: Standard Intensity: 2.0 - 3.0 High Intensity: 2.5 - 3.5 This is a rapid INR screening test which uses whole blood; results may infrequently differ from plasma INR results. If medication adjustments/dosing are required a PT/INR test ([id number]) should be ordered and performed in the main laboratory. Blood 11/30/2023 7:02 PM CDT 11/30/2023 7:08 PM CDT Jian Howell MD LABORATORY Performing Organization Address City/[facility] Co de Phone Number [facility] [address] [address] * PRECAUTIONARY TUBE (11/30/2023 7:02 PM CDT) [facility] Prec Tube Precautionary Blood Bank Specimen Received. [facility] Blood 11/30/2023 7:02 PM CDT 11/30/2023 7:17 PM CDT Jian Howell MD LAB TRANSFUSION SERV ICES Performing Organization Address [facility] Co de Phone Number [facility] [address] [address] * LACTATE (LACTIC ACID) (11/30/2023 7:02 PM CDT) [facility] Lactate 1.5 0.7 - 2.1 mmol/L [facility] Blood 11/30/2023 7:02 PM CDT 11/30/2023 7:09 PM CDT Narrative [facility] - 11/30/2023 7:16 PM CDT Send specimen on ice! Jian Howell MD LABORATORY Performing Organization Address [facility] Co de Phone Number [facility] [address] [address] * FIBRINOGEN (11/30/2023 7:02 PM CDT) [facility] Fibrinogen 222 200 - 400 mg/dL [facility] Blood 11/30/2023 7:02 PM CDT 11/30/2023 7:17 PM CDT Jian Howell MD LABORATORY Performing Organization Address [facility] Co de Phone Number [facility] [address] [address] * (ABNORMAL) PANEL HEPATIC FUNCTION (11/30/2023 7:02 PM CDT) [facility] Total Protein 6.0(L) 6.4 - 8.3 g/dL [facility] Albumin 4.2 3.8 - 5.1 g/dL [facility] Bili Total <0.2 <=1.2 mg/dL [facility] Bili Direct na <=0.3 mg/dL [facility] Comment:BILID < 0.2. Accurac y of result suspect due to hemolysis. Alk Phos 104 35 - 104 IU/L [facility] Comment:No reference range e stablished for patients <18 years old. ALT (SGPT) na <=33 IU/L [facility] Comment:ALT = 8. Accuracy of result suspect due to hemolysis. AST(SGOT) na 5 - 40 IU/L [facility] Comment:AST = 20. Accuracy o f result suspect due to hemolysis. Blood 11/30/2023 7:02 PM CDT 11/30/2023 7:17 PM CDT Jian Howell MD LABORATORY Performing Organization Address [facility] Co de Phone Number [facility] [address] [address] * (ABNORMAL) ED HEMOGLOBIN TOTAL (ED ONLY) (11/30/2023 7:02 PM CDT) Hgb 10.2(L) 11.5 - 15.7 g/dL [facility] Blood 11/30/2023 7:02 PM CDT 11/30/2023 7:09 PM CDT Jian Howell MD LABORATORY Performing Organization Address [facility] Co de Phone Number [facility] [address] [address] * (ABNORMAL) ED CHEMISTRY LABS(NA,K,CL,CO2,GLU,CREAT,CA-IONIZED,ANION GAP) (11/30/2023 7:02 PM CDT) Sodium 140 135 - 148 mmol/L [facility] Chloride 111(H) 92 - 108 mmol/L [facility] AnGap 7(L) 8 - 16 mmol/L [facility] Glucose 99 70 - 100 mg/dL [facility] ICA, Actual 4.40 4.40 - 5.20 mg/dL [facility] ICA, pH Corrected 4.50 4.40 - 5.20 mg/dL [facility] Creatinine 0.95 0.50 - 1.00 mg/dL [facility] BICARB 22 22 - 26 mEq/L [facility] eGFR (2020 CKD-EPI) 68 >=60 ml/min/1.7 3m2 [facility] Comment: The estimated glomerular filtration rate (eGFR) was calculated using the CKD-EPI 2020 creatinine equation, which does not include race as a factor. This equation is validated in individuals 18 years of age and older, and eGFR is normalized to a body surface area of 1.73m^2. Potassium 4.5 3.5 - 5.3 mmol/L [facility] Blood 11/30/2023 7:02 PM CDT 11/30/2023 7:09 PM CDT Jian Howell MD LABORATORY [facility] [address] [place] [phone] * (ABNORMAL) CBC WITH PLTS/AUTO DIFF (11/30/2023 7:02 PM CDT) WBC 9.81 4.00 - 10.00 k/cmm [facility] RBC 3.98 3.90 - 5.20 m/cmm [facility] Hgb 10.1(L) 11.5 - 15.7 g/dL [facility] Hematocrit 32.6(L) 34.0 - 45.0 % [facility] MCV 81.9 80.0 - 100.0 fL [facility] MCH 25.4 25.0 - 32.0 pg [facility] MCHC 31.0 31.0 - 36.0 g/dL [facility] RDW 16.9(H) 11.5 - 14.5 % [facility] Plt 233 150 - 400 k/cmm [facility] MPV 9.1 6.5 - 12.5 fL [facility] Automated Abs Neutrophil 6.22 1.70 - 6.50 k/cmm [facility] Comment:Preliminary ANC, Fin al Result to Follow Abs Immature Granulocyte 0.03 0.00 - 0.09 k/cmm [facility] Comment:The Immature Granulo cyte Absolute count contains metamyelocytes and myelocytes. Abs Neutrophil 6.22 1.70 - 6.50 k/cmm [facility] Abs Lymphocyte 2.73 0.80 - 4.00 k/cmm [facility] Abs Monocyte 0.49 0.20 - 1.00 k/cmm [facility] Abs Eosinophil 0.30 0.00 - 0.60 k/cmm [facility] Abs Basophil 0.04 0.00 - 0.20 k/cmm [facility] Blood 11/30/2023 7:02 PM CDT 11/30/2023 7:16 PM CDT Jian Howell MD LABORATORY Performing Organization Address [facility] Co de Phone Number [address] [address] * (ABNORMAL) BLOOD GASES (11/30/2023 7:02 PM CDT) PH Juvenal 7.40 7.32 - 7.42 [facility] PCO2 Juvenal 38(L) 41 - 51 mmHG [facility] PO2 Juvenal 39 25 - 40 mmHG [facility] Bicarb Juvenal 23(L) 24 - 28 mEq/L [facility] O2 Sat Juvenal 73 % [facility] Base Exc Juvenal -1.2 -10.0 - 2.0 mmol/L [facility] Blood Venous 11/30/2023 7:02 PM CDT 11/30/2023 7:09 PM CDT Jian Howell MD LABORATORY Performing Organization Address [facility] Co de Phone Number [address] [address] * ED US CRITICAL CARE (11/30/2023 6:59 [...] PM Jian Howell MD RAD ED ULT documented in this encounter Visit Diagnoses Diagnosis Inadequate pain control- Primary Generalized pain Closed fracture fibula, head, left, initial encounter Traumatic compartment syndrome of left lower extremity, initial encounter (CMS) Closed fracture fibula, head, left, initial encounter documented in this encounter Admitting Diagnoses Diagnosis Closed fracture fibula, head, left, initial encounter documented in this encounter Administered Medications Inactive Administered Medications - up to 3 most recent administrations Medication Order MAR Action Action Date Dose Rate Site acetaminophen (TYLENOL) tablet 975 mg 975 mg, Oral, TID, First dose on Fri12/01/23 at 0835, Until Discontinued Given 12/03/2023 2:36 PM CDT 975 mg Given 12/03/2023 8:39 AM CDT 975 mg Given 12/02/2023 8:30 AM CDT 975 mg aspirin (ASA EC) tablet 162 mg 162 mg, Oral, DAILY, 14 doses, First dose on Fri12/02/23 at 1020, Last dose on Fri12/15/23 at 0800 Given 12/03/2023 8:44 AM CDT 162 mg Given 12/02/2023 10:39 AM CDT 162 mg buPROPion (WELLBUTRIN XL) XL tablet 150 mg 150 mg, Oral, DAILY, First dose on Fri12/01/23 at 1335, Until Discontinued Given 12/03/2023 8:47 AM CDT 150 mg Given 12/02/2023 8:36 AM CDT 150 mg Given 12/01/2023 4:30 PM CDT 150 mg ceFAZolin (ANCEF) IVPB 2 g 2 g, Indication (Select One): Prophylaxis - Surgical, Intravenous, Q 8H, 2 doses, First dose on Fri12/01/23 at 1520, Last dose on Fri12/01/23 at 2200 New Bag 12/01/2023 9:49 PM CDT 2 g 200 mL/hr New Bag 12/01/2023 5:39 PM CDT 2 g 200 mL/hr [place] MED REC REVIEW BY PHARMACY Discharge Date: 12/03/2023, Discharge Location: Home, Anticipated Discharge Time: After 2 pm, Discharge Medication Orders: DC Med Orders Final, Does not apply, PROTOCOL, Starting on Fri12/03/23 at 1337, Until Fri12/03/23 at 1914 DULoxetine (CYMBALTA) capsule 120 mg 120 mg, Oral, DAILY, First dose on Fri12/01/23 at 1400, Until Discontinued Given 12/03/2023 8:46 AM CDT 120 mg Given 12/02/2023 8:37 AM CDT 120 mg Given 12/01/2023 4:31 PM CDT 120 mg fentaNYL (SUBLIMAZE) 100 mcg/2mL injection 50 mcg 50 mcg, IV Push, ONE TIME, 1 dose, On Fri11/30/23 at 1910 Given 11/30/2023 7:07 PM CDT 50 mcg HYDROmorphone PF (DILAUDID) 1 mg/mL injection 0.4 mg 0.4 mg, IV Push, PACU PRN Q5MIN, 5 doses, Starting on Fri12/01/23 at 0741, Until Fri12/01/23 at 1301, Severe Pain (Use First) Given 12/01/2023 8:27 AM CDT 0. 4 mg HYDROmorphone PF (DILAUDID) 1 mg/mL injection 0.5 mg 0.5 mg, IV Push, ONE TIME, 1 dose, On Fri11/30/23 at 2010 Given 11/30/2023 8:36 PM CDT 0.5 mg HYDROmorphone PF (DILAUDID) 1 mg/mL injection 0.5 mg 0.5 mg, IV Push, Q4H PRN, Starting on Fri12/01/23 at 0834, Until Fri12/01/23 at 1212, Severe Pain (Use Second) Given 12/01/2023 11:43 AM CDT 0.5 mg HYDROmorphone PF (DILAUDID) 1 mg/mL injection 0.5 mg 0.5 mg, IV Push, Q2H PRN, Starting on Fri12/01/23 at 1211, Until Fri12/02/23 at 0936, Severe Pain (Use Second) Given 12/02/2023 8:54 AM CDT 0.5 mg Given 12/02/2023 6:07 AM CDT 0.5 mg Given 12/02/2023 3:07 AM CDT 0.5 mg HYDROmorphone PF (DILAUDID) 1 mg/mL injection 1 mg 1 mg, IV Push, ONE TIME, 1 dose, On Fri12/01/23 at 0430 Given 12/01/2023 4:39 AM CDT 1 mg HYDROmorphone PF (DILAUDID) 1 mg/mL injection 1 mg 1 mg, IV Push, ONE TIME, 1 dose, On Fri12/01/23 at 0550 Given 12/01/2023 5:50 AM CDT 1 mg HYDROmorphone PF (DILAUDID) 1 mg/mL injection 2 mg 2 mg, IV Push, Q2H PRN, Starting on Fri12/02/23 at 1124, Until Fri12/03/23 at 1914, Severe Pain (Use Second) Given 12/03/2023 2:37 PM CDT 2 mg Given 12/03/2023 9:26 AM CDT 2 mg Given 12/03/2023 6:27 AM CDT 2 mg HYDROmorphone PF (DILAUDID) injection 1 mg 1 mg, IV Push, ONE TIME, 1 dose, On Fri12/01/23 at 1805 Given 12/01/2023 6:16 PM CDT 1 mg HYDROmorphone PF (DILAUDID) injection 1 mg 1 mg, IV Push, ONE TIME, 1 dose, On Fri12/02/23 at 0940 Given 12/02/2023 10:39 AM CDT 1 mg HYDROmorphone PF (DILAUDID) injection 2 mg 2 mg, IV Push, ONE TIME, 1 dose, On Fri12/02/23 at 1130 Given 12/02/2023 12:39 PM CDT 2 mg hydrOXYzine (ATARAX;VISTARIL) tablet 25-50 mg 25-50 mg, Oral, Q4H PRN, Starting on Fri12/01/23 at 1211, Until Fri12/03/23 at 1914, Pain lamoTRIgine (LaMICtal) tablet 200 mg 200 mg, Oral, BID, First dose on Fri12/01/23 at 1335, Until Discontinued Given 12/03/2023 8:45 AM CDT 200 mg Given 12/02/2023 8:18 PM CDT 200 mg Given 12/02/2023 8:29 AM CDT 200 mg melatonin tablet 3 mg 3 mg, Oral, BEDTIME PRN, Starting on Fri12/01/23 at 1338, Until Fri12/03/23 at 1914, Sleep OLANZapine (ZyPREXA) injection 5 mg 5 mg, IV Push, ONE TIME, 1 dose, On Fri11/30/23 at 1910 Given 11/30/2023 7:09 PM CDT 5 mg oxyCODONE (OxyCONTIN) CR tablet 20 mg 20 mg, Oral, Q 8H, First dose on Fri12/02/23 at 1030, Until Discontinued Given 12/03/2023 10:51 AM CDT 20 mg Given 12/02/2023 6:48 PM CDT 20 mg Given 12/02/2023 10:39 AM CDT 20 mg oxyCODONE (ROXICODONE) tablet 10 mg 10 mg, Oral, ONE TIME, 1 dose, On Fri12/01/23 at 0135 Given 12/01/2023 1:39 AM CDT 10 mg oxyCODONE (ROXICODONE) tablet 10-15 mg 10-15 mg, Oral, Q4H PRN, Starting on Fri12/02/23 at 0956, Until Fri12/03/23 at 1914, Moderate Pain (Use First) Given 12/03/2023 9:17 AM CDT 10 mg Given 12/02/2023 2:51 PM CDT 15 mg Given 12/02/2023 10:56 AM CDT 15 mg oxyCODONE (ROXICODONE) tablet 15 mg 15 mg, Oral, Q4H PRN, Starting on Fri12/01/23 at 0429, Until Fri12/02/23 at 0953, Moderate Pain (Use First) Given 12/01/2023 9:44 PM CDT 15 mg Given 12/01/2023 4:24 PM CDT 15 mg pantoprazole (PROTONIX) tablet 40 mg 40 mg, Oral, DAILY, First dose on Fri12/01/23 at 1400, Until Discontinued Given 12/03/2023 8:48 AM CDT 40 mg Given 12/02/2023 8:35 AM CDT 40 mg Given 12/01/2023 4:24 PM CDT 40 mg polyethylene glycol 3350 (MIRALAX;GLYCOLAX) packet 17 g 17 g, Oral, DAILY, First dose on Fri12/01/23 at 1335, Until Discontinued Given 12/03/2023 8:49 AM CDT 17 g Given 12/02/2023 8:28 AM CDT 17 g Given 12/01/2023 4:24 PM CDT 17 g pramipexole (MIRAPEX) tablet 0.5 mg 0.5 mg, Oral, DAILY, First dose on Fri12/01/23 at 1400, Until Discontinued Given 12/01/2023 4:31 PM CDT 0.5 mg prazosin (MINIPRESS) capsule 1 mg 1 mg, Oral, Q EVENING, First dose on Fri12/01/23 at 2000, Until Discontinued Given 12/02/2023 6:48 PM CDT 1 mg simvastatin (ZOCOR) tablet 20 mg 20 mg, Oral, DAILY, First dose on Fri12/01/23 at 1400, Until Discontinued Given 12/03/2023 8:46 AM CDT 20 mg Given 12/02/2023 8:38 AM CDT 20 mg Given 12/01/2023 4:31 PM CDT 20 mg traZODone (DESYREL) tablet 100 mg 100 mg, Oral, BEDTIME PRN, Starting on Fri12/01/23 at 1314, Until Fri12/03/23 at 1914, sleep Given 12/01/2023 9:44 PM CDT 100 mg VTE prophylaxis contraindicated Contraindication Reason: Procedure, Does not apply, PROTOCOL, Starting on Fri12/01/23 at 1314, Until Fri12/03/23 at 1914 documented in this encounter Active and Recently Administered Medications Times are shown in CDT. Scheduled Medication Order 12/01/2023 12/02/2023 12/03/2023 acetaminophen (TYLENOL) tablet 975 mg 975 mg, Oral, TID, First dose on Fri12/01/23 at 0835, Until Discontinued 0835 (Due)1352 (Not Given (removes Due time) - Provider: Orin Solano RN - Reason: Patient refused)1938 (Not Given (removes Due time) - Provider: Kobi Dean RN - Reason: Patient refused) 0830 (Given - Provider: IVAN Esquivel)0856 (Dual Sign-Off - Provider: Luda Perez RN)1452 (Not Given (removes Due time) - Provider: Yuliana Carpenter RN - Reason: Patient refused)2017 (Not Given (removes Due time) - Provider: Yuliana Carpenter RN - Reason: Patient refused) 0839 (Given - Provider: IVAN Esquivel)0907 (Dual Sign-Off - Provider: Luda Perez, JENNA)1436 (Given - Provider: Claudia Shane RN) aspirin (ASA EC) tablet 162 mg(Linked Group 1) 162 mg, Oral, DAILY, 14 doses, First dose on Fri12/02/23 at 1020, Last dose on Fri12/15/23 at 0800 1039 (Given - Provider: Yuliana Carpenter RN) 0844 (Given - Provider: IVAN Esquivel)0907 (Dual Sign-Off - Provider: Luda Perez RN) buPROPion (WELLBUTRIN XL) XL tablet 150 mg 150 mg, Oral, DAILY, First dose on Fri12/01/23 at 1335, Until Discontinued 1630 (Given - Provider: Akash Bradford RN) 0836 (Given - Provider: IVAN Esquivel)0856 (Dual Sign-Off - Provider: Luda Perez RN) 0847 (Given - Provider: IVAN Esquivel)0907 (Dual Sign-Off - Provider: Luda Perez RN) ceFAZolin (ANCEF) IVPB 2 g (COMPLETED) 2 g, Indication (Select One): Prophylaxis - Surgical, Intravenous, Q 8H, 2 doses, First dose on Fri12/01/23 at 1520, Last dose on Fri12/01/23 at 2200 1739 (New Bag - Provider: Akash Bradford RN)1816 (Infusion completed - Provider: Akash Bradford RN)2149 (New Bag - Provider: Kobi Dean, JENNA)2230 (Infusion completed - Provider: Kobi Dean, JENNA) DC MED REC REVIEW BY PHARMACY(Linked Group 2) Discharge Date: 12/03/2023, Discharge Location: Home, Anticipated Discharge Time: After 2 pm, Discharge Medication Orders: DC Med Orders Final, Does not apply, PROTOCOL, Starting on Fri12/03/23 at 1337, Until Fri12/03/23 at 1914 DULoxetine (CYMBALTA) capsule 120 mg 120 mg, Oral, DAILY, First dose on Fri12/01/23 at 1400, Until Discontinued 1631 (Given - Provider: Akash Bradford RN) 0837 (Given - Provider: IVAN Esquivel)0857 (Dual Sign-Off - Provider: Luda Perez, JENNA) 0846 (Given - Provider: IVAN Esquivel)0907 (Dual Sign-Off - Provider: Luda Perez, JENNA) HYDROmorphone PF (DILAUDID) 1 mg/mL injection 1 mg (COMPLETED) 1 mg, IV Push, ONE TIME, 1 dose, On Fri12/01/23 at 0430 0439 (Given - Provider: Maritza Dockery RN) HYDROmorphone PF (DILAUDID) 1 mg/mL injection 1 mg (COMPLETED) 1 mg, IV Push, ONE TIME, 1 dose, On Fri12/01/23 at 0550 0550 (Given - Provider: Maritza Dockery RN) HYDROmorphone PF (DILAUDID) injection 1 mg (COMPLETED) 1 mg, IV Push, ONE TIME, 1 dose, On Fri12/01/23 at 1805 1816 (Given - Provider: Akash Bradford RN) HYDROmorphone PF (DILAUDID) injection 1 mg (COMPLETED) 1 mg, IV Push, ONE TIME, 1 dose, On Fri12/02/23 at 0940 1039 (Given - Provider: Yuliana Carpenter RN) HYDROmorphone PF (DILAUDID) injection 2 mg (COMPLETED) 2 mg, IV Push, ONE TIME, 1 dose, On Fri12/02/23 at 1130 1239 (Given - Provider: Yuliana Carpenter RN) lamoTRIgine (LaMICtal) tablet 200 mg 200 mg, Oral, BID, First dose on Fri12/01/23 at 1335, Until Discontinued 1631 (Given - Provider: Akash Bradford RN)1925 (Not Given (removes Due time) - Provider: Kobi Dean RN - Reason: Held per nurse) 0881 (Given - Provider: IVAN Esquivel)0857 (Dual Sign-Off - Provider: Luda Perez, JENNA)2018 (Given - Provider: Yuliana Carpenter RN) 0845 (Given - Provider: IVAN Esquivel)0907 (Dual Sign-Off - Provider: Luda Perez, JENNA) oxyCODONE (OxyCONTIN) CR tablet 20 mg 20 mg, Oral, Q 8H, First dose on Fri12/02/23 at 1030, Until Discontinued 1039 (Given - Provider: Yuliana Carpenter RN)1848 (Given - Provider: Yuliana Carpenter RN) 0324 (Not Given (removes Due time) - Provider: Ramon Crump RN - Reason: Patient sleeping - Comment: Pt requsted not to wake her for meds)1051 (Given - Provider: Claudia Shane RN) oxyCODONE (ROXICODONE) tablet 10 mg (COMPLETED) 10 mg, Oral, ONE TIME, 1 dose, On Fri12/01/23 at 0135 0139 (Given - Provider: Kory Lynn RN) pantoprazole (PROTONIX) tablet 40 mg 40 mg, Oral, DAILY, First dose on Fri12/01/23 at 1400, Until Discontinued 1624 (Given - Provider: Akash Bradford RN) 0835 (Given - Provider: IVAN Esquivel)0857 (Dual Sign-Off - Provider: Luda Perez, JENNA) 0848 (Given - Provider: IVAN Esquivel)0907 (Dual Sign-Off - Provider: Luda Perez, JENNA) polyethylene glycol 3350 (MIRALAX;GLYCOLAX) packet 17 g 17 g, Oral, DAILY, First dose on Fri12/01/23 at 1335, Until Discontinued 1624 (Given - Provider: Akash Bradford RN) 0828 (Given - Provider: IVAN Esquivel)0857 (Dual Sign-Off - Provider: Luda Perez, JENNA) 0849 (Given - Provider: IVAN Esquivel)0909 (Dual Sign-Off - Provider: Luda Perez, RN) pramipexole (MIRAPEX) tablet 0.5 mg 0.5 mg, Oral, DAILY, First dose on Fri12/01/23 at 1400, Until Discontinued 1631 (Given - Provider: Akash Bradford RN) 0834 (Not Given (removes Due time) - Provider: IVAN Esquivel - Reason: Patient refused) 0907 (Not Given (removes Due time) - Provider: Luda Perez, RN - Reason: Patient refused - Comment: Pt states she takes in the evening, message sent to pharm 12/01, 12/02 & reported to primary nurse) prazosin (MINIPRESS) capsule 1 mg 1 mg, Oral, Q EVENING, First dose on Fri12/01/23 at 2000, Until Discontinued 194 (Not Given (removes Due time) - Provider: Kobi Dean RN - Reason: Patient refused) 184 (Given - Provider: Yuliana Carpenter RN) simvastatin (ZOCOR) tablet 20 mg 20 mg, Oral, DAILY, First dose on Fri12/01/23 at 1400, Until Discontinued 163 (Given - Provider: Akash Bradford RN) 0838 (Given - Provider: IVAN Esquivel)0857 (Dual Sign-Off - Provider: Luda Perez, JENNA) 0846 (Given - Provider: IVAN Esquivel)0909 (Dual Sign-Off - Provider: Luda Perez, JENNA) VTE prophylaxis contraindicated(Linked Group 3) Contraindication Reason: Procedure, Does not apply, PROTOCOL, Starting on Fri12/01/23 at 1314, Until Fri12/03/23 at 1914 PRN Medication Order 12/01/2023 12/02/2023 12/03/2023 diclofenac (VOLTAREN) 1 % gel 4 g 4 g, Topical, QID PRN, Starting on Fri12/01/23 at 1314, Until Fri12/03/23 at 1914, Apply to area of pain HYDROmorphone PF (DILAUDID) 1 mg/mL injection 0.4 mg (CANCELED) 0.4 mg, IV Push, PACU PRN Q5MIN, 5 doses, Starting on Fri12/01/23 at 0741, Until Fri12/01/23 at 1301, Severe Pain (Use First) 0827 (Given - Provider: Ailyn Atkinson RN) HYDROmorphone PF (DILAUDID) 1 mg/mL injection 0.5 mg (CANCELED) 0.5 mg, IV Push, Q4H PRN, Starting on Fri12/01/23 at 0834, Until Fri12/01/23 at 1212, Severe Pain (Use Second) 1143 (Given - Provider: Ailyn Atkinson RN) HYDROmorphone PF (DILAUDID) 1 mg/mL injection 0.5 mg (CANCELED) 0.5 mg, IV Push, Q2H PRN, Starting on Fri12/01/23 at 1211, Until Fri12/02/23 at 0936, Severe Pain (Use Second) 1337 (Given - Provider: Orin Solano RN)1625 (Given - Provider: Akash Bradford RN)1943 (Given - Provider: Kobi Dean RN)2236 (Given - Provider: Kobi Dean RN) 0307 (Given - Provider: Kobi Dean RN)0607 (Given - Provider: Kobi Dean RN)0854 (Given - Provider: Yuliana Carpenter RN) HYDROmorphone PF (DILAUDID) 1 mg/mL injection 2 mg 2 mg, IV Push, Q2H PRN, Starting on Fri12/02/23 at 1124, Until Fri12/03/23 at 1914, Severe Pain (Use Second) 1451 (Given - Provider: Yuliana Carpenter RN)1731 (Given - Provider: Yuliana Carpenter RN)2018 (Given - Provider: Yuliana Carpenter RN)2310 (Given - Provider: Yuliana Carpenter RN) 0627 (Given - Provider: Ramon Crump RN)0926 (Given - Provider: Claudia Shane, JENNA)1437 (Given - Provider: Claudia Shane, JENNA) hydrOXYzine (ATARAX;VISTARIL) tablet 25-50 mg 25-50 mg, Oral, Q4H PRN, Starting on Fri12/01/23 at 1211, Until Fri12/03/23 at 1914, Pain 1353 (Not Given (removes Due time) - Provider: Orin Solano RN - Reason: Patient refused) 1056 (Not Given (removes Due time) - Provider: Yuliana Carpenter RN - Reason: Patient refused) 0915 (Not Given (removes Due time) - Provider: Claudia Shane RN - Reason: Patient refused) melatonin tablet 3 mg 3 mg, Oral, BEDTIME PRN, Starting on Fri12/01/23 at 1338, Until Fri12/03/23 at 1914, Sleep oxyCODONE (ROXICODONE) tablet 10-15 mg 10-15 mg, Oral, Q4H PRN, Starting on Fri12/02/23 at 0956, Until Fri12/03/23 at 1914, Moderate Pain (Use First) 1056 (Given - Provider: Yuliana Carpenter RN)1451 (Given - Provider: Yuliana Carpenter RN) 0917 (Given - Provider: Claudia Shane RN) oxyCODONE (ROXICODONE) tablet 15 mg (CANCELED) 15 mg, Oral, Q4H PRN, Starting on Fri12/01/23 at 0429, Until Fri12/02/23 at 0953, Moderate Pain (Use First) 1354 (Not Given (removes Due time) - Provider: Orin Solano RN - Reason: Patient refused)1624 (Given - Provider: Akash Bradford RN)2144 (Given - Provider: Kobi Dean RN) sennosides (SENOKOT) tablet 8.6 mg 8.6 mg, Oral, BID PRN, Starting on Fri12/01/23 at 1314, Until Fri12/03/23 at 1914, Constipation (Use First) traZODone (DESYREL) tablet 100 mg 100 mg, Oral, BEDTIME PRN, Starting on Fri12/01/23 at 1314, Until Fri12/03/23 at 1914, sleep 2144 (Given - Provider: Kobi Dean RN) Linked Groups Order Group 1: aspirin (ASA EC) tablet 162 mgJump to med 162 mg, Oral, DAILY, 14 doses, First dose on Fri12/02/23 at 1020, Last dose on Fri12/15/23 at 0800 And VTE - ASPIRIN FOR ORTHO (CANCELED) ONCE, On Fri12/02/23 at 1020, For 1 occurrence Group 2: DC MED REC REVIEW BY PHARMACYJump to med Discharge Date: 12/03/2023, Discharge Location: Home, Anticipated Discharge Time: After 2 pm, Discharge Medication Orders: DC Med Orders Final, Does not apply, PROTOCOL, Starting on Fri12/03/23 at 1337, Until Fri12/03/23 at 1914 And Discharge Med Rec Final Review by Pharmacy (COMPLETED) Routine, Order to be placed by provider after medications have been entered for discharge and are ready for review by Pharmacist. This order can be placed multiple times if changes or additions have been made to medications for discharge. Choose the Preliminary DC Med Rec review when placing orders prior to the day of discharge. Choose Final DC Med Rec when all medication changes have been entered. If DC Med Rec needed now, please page the Pharmacist covering the patient to inform them., Discharge Date: 12/03/2023, Discharge Location: Home, Anticipated Discharge Time: After 2 pm Group 3: VTE prophylaxis contraindicatedJump to med Contraindication Reason: Procedure, Does not apply, PROTOCOL, Starting on Fri12/01/23 at 1314, Until Fri12/03/23 at 1914 And VTE - Prophylaxis Contraindication Communication (COMPLETED) Contraindication Reason: Procedure documented in this encounter Care Teams Form Coverer Relationship Specialty Start Date End Date Pcp, [place] [address] PCP - General 03/18/09 documented as of this encounter
--- OUTSIDE RECORDS SUMMARY | 2023-12-04 03:29 | XMS_ITS | Clinical Summary ---
Author Organization [facility] Address [address] [place] [address] [place] [address] Care Team Providers Care Imaging Services Director Name Role Phone [facility]- Unava ilable Hayes Mcelroy MD Primary Care Provider [phone] Allergies Active Allergy Reactions Criticality Noted Date Comments Atorvastatin Other 09/30/2019 Skin irritation around eyes Baclofen Nausea Low 12/23/2012 Qyalismvjafr-Idtuudo-Hfkdmi e Low 12/23/2012 Cyclobenzaprine Low 04/24/2011 Other [...] 10/16/2022 Active naloxone (NARCAN) 4 mg/actuation Nasal Freedom Administer one dose (4 mg) into nostril [...] (11/11/2022): Added automatically from request for surgery [id number] Chronic anemia 08/22/2021 Type 2 diabetes mellitus [...] Description 2023 9:40 AM CDT Office Visit [facility] (an [facility]) [address] [place] [phone] Brock Sawyer MD S/P lumbar fusion (Primary Dx) 2023 Travel 10/28/2023 9:15 AM CDT Office Visit [facility] (an [facility]) [address] [place] [phone] Jg Ivory PA-C Postoperative state (Primary Dx); S/P lumbar fusion; Lumbar spine pain 10/28/2023 Travel 09/23/2023 8:00 AM CDT - 09/23/2023 9:35 AM CDT Surgery [facility] [address] [place] [address] [place] [address] Brock Sawyer MD BILATERAL HARDWARE REMOVAL L2- PELIVS WITH EXPLORATION OF L3-4 FUSION AND REPLACEMENT OF RODS L3-4 09/23/2023 5:55 AM CDT - 09/25/2023 11:44 AM CDT Hospital Encounter [facility] [address] [facility] [place] [address] Brock Sawyer MD Chronic pain disorder Discharge Disposition: Returning Home/Self Care 09/22/2023 Travel 09/04/2023 9:30 AM CDT Office Visit [facility] [place] (an [facility]) [address] [place] [address] Brock Sawyer MD Pain due to internal orthopedic prosthetic devices, implants and grafts, initial encounter ([facility]) (Primary Dx); Breakdown (mechanical) of internal fixation device of vertebrae, initial encounter ([facility]) 09/04/2023 Travel from Last 3 Months Social History Tobacco Use Types Packs/Day Years Used Date Smoking Tobacco: Former Cigarettes Smokeless Tobacco: Never Tobacco Cessation:Counseling Given: Not Answered Comments:Quit august 2023 Alcohol Use Standard Drinks/Week Comments Not Currently 0 (1 standard drink = 0.6 oz pur e alcohol) [facility] Utilities Answer Date Recorded In the past 12 months has e [employer], gas, oil, or water [employer] threatened to shut off services in your [...] any time in the past 12 m [facility], were you homeless or living in a snf (including now)? No 09/23/2023 Sex and Gender [...] 10/26/2018, 08/17/2018 Medical Devices Implanted Type Area Informatics Manager Device Identifier Shelf Expiration Date Model / Serial / Lot Beltran 50mm 5.5mm Ccm Curv - [id number] Implanted:Qty : 1 on 09/23/2023 by Brock Sawyer MD at [facility] Beltran N/A: Spine Lumbar [employer] [id number] / / Beltran 60mm 5.5mm Ccm Curv - [id number] Implanted:Qty : 1 on 09/23/2023 by Brock Sawyer MD at [facility] Beltran N/A: Spine Lumbar [employer] [id number] / / Set Screw Solera Brk Off - [id number] Implanted:Qty : 4 on 09/23/2023 by Brock Sawyer MD at [facility] Screw/An chor N/A: Spine Lumbar [employer] [id number] / / Procedures Procedure Name Priority Date/Time [...] - 100 mg/dL 09/25/2023 11:36 AM CDT [facility] Blood 09/25/2023 7:53 AM CDT 09/25/2023 11:36 AM CDT Brock Sawyer MD LAB POINT OF CARE TEST RESULTS Performing Organization Address City/State/[facility] Co de Phone Number [facility] [address] [place] [address] * XR C-ARM SPINE (09/23/2023 9:14 AM [...] Advance Directives For more information, please contact: [phone] * Full Code (Latest Code Status on File) Date Activated Date Inactivated Comments 09/24/2023 3:26 PM 09/25/2023 5:49 PM Question Answer Comments How was code status determined? Patient * Full Code Date Activated Date Inactivated Comments 09/23/2023 5:59 AM 09/23/2023 9:48 AM Question Answer Comments How was code status determined? Previous [facility] Care Teams Imaging Services Director Relationship Specialty Start Date End Date [facility] [address], [place] [address] PCP - Primary Care Clinic 09/18/22 [place] [address] [place] [address] PCP - General 05/20/23
--- OUTSIDE RECORDS SUMMARY | 2023-12-04 03:29 | XMS_ITS | Encounter Summary ---
Author Organization [facility] Address [address] [place] [phone] Phone Care Team Providers Care Pickle Sorter Name Role Phone Pcp, No Primary Care Provider Unavailabl e Encounter Details Date Type Department Care Team (Latest Contact Info) Description 12/01/2023 Travel Social History Tobacco Use Types Packs/Day [...] as of this encounter Plan of Treatment Upcoming Encounters Date Type Department Care Team (Late st Contact Info) Description 12/15/2023 1:00 PM PET CARETAKER [facility] [address] [address] Scheduled Discharge Disposition: Discharged to home or self care documented as of this encounter Visit Diagnoses Not on filedocumented in this encounter Care Teams Pickle Sorter Relationship Specialty Start Date End Date Pcp, [place] [place] [address] PCP - General 03/18/09 documented as of this encounter
--- OUTSIDE RECORDS SUMMARY | 2023-12-04 03:29 | XMS_ITS | Encounter Summary ---
Author Organization [facility] Address [address] [place] [address] [place] [address] Care Team Providers Care Director Stars Name Role Phone [facility] Unava ilable Hayes Mcelroy MD Primary Care Provider [phone] Encounter Details Date Type Department Care Team (Latest Contact Info) Description 2023 Travel Social History Tobacco Use Types Packs/Day Years Used Date Smoking Tobacco: Former Cigarettes Smokeless Tobacco: Never Comments:Quit august 2023 Alcohol Use Standard Drinks/Week Comments Not Currently 0 (1 standard drink = 0.6 oz pur e alcohol) [facility] Utilities Answer Date Recorded In the [...] any time in the past 12 m [facility], were you homeless or living in a chcf (including now)? No 09/23/2023 Sex and Gender Information Value Date Recorded Sex Assigned at Not on file Gender Identity Not on file Sexual Orientation Not on file documented as of this encounter Plan of Treatment Not on file documented as of this encounter Visit Diagnoses Not on filedocumented in this encounter Care Teams Director Stars Relationship Specialty Start Date End Date [facility] [address] [place] [address] PCP - Primary Care Clinic 09/18/22 [place] [address] [place] [address] PCP - General 05/20/23 documented as of this encounter
--- OUTSIDE RECORDS SUMMARY | 2023-12-04 03:29 | XMS_ITS | Encounter Summary ---
Author Organization [facility] Address [address] [place] [address] Phone Care Team Providers Care Fire Protection Equipment Technician Name Role Phone Pcp, No Primary Care Provider Unavailabl e Reason for Visit * Auth/Cert (Routine) Specialty Diagnoses / Procedures Referred By Contangélica t Referred To Contact ORTHOPEDICS Diagnoses Inadequate pain control Traumatic compartment syndrome of left lower extremity, initial encounter ([facility]) Closed fracture fibula, head, left, initial encounter Gonzalez Engle MD [address] [facility] [address] [place] [address] [facility] [address] [facility] [address] [place] [address] Referral ID Status Reason Start Date Expiration Date Visits Re quested Visits Authorized [id number] 1 1 Encounter Details Date Type Department Care Team (Late st Contact Info) Description 12/01/2023 6:32 AM CDT Anesthesia Event OR P4 [address] [place] [address] Joaquin Herrera MD [address] [place], [place] [phone] [place] [id number] Anesthesia Record Procedure Summary Procedure Name Responsible Anesthesiologist Anesthesia Start Time Anesthesia Stop Time FASCIOTOMY, LOWER EXTREMITY (Left: Leg Lower) Joaquin Herrera MD 12/01/23 0632 12/01/23 0819 Events Date Time Event Comment 12/01/2023 0622 Pre-op End 0632 An Start 0632 An Start Data 0632 IOPAE The intraoperat nathaniel pre-anesthetic evaluation was completed with no changes noted from the pre-operative anesthesia evaluation. 0635 An Induction 0638 An Intubation 0708 Quick Note BG 116 0739 An Emergence 0810 Extubation 0818 an stop data 0819 An Stop Meds Name Total midazolam (VERSED) 1 mg/mL injection 2 m g fentaNYL (SUBLIMAZE) 100 mcg/ 2 mL injec tion 100 mcg lidocaine 2% injection 100 mg propofol (DIPRIVAN) injection 160 mg rocuronium (ZEMURON) injection 30 mg phenylephrine 100 mcg/mL syringe 500 mcg dexamethasone (DECADRON) 4 mg/mL injecti on 6 mg ondansetron (ZOFRAN) injection 4 mg sugammadex (BRIDION) 200 mg/ 2mL injecti on 200 mg succinylcholine (ANECTINE) 20 mg/mL inje ction 120 mg ceFAZolin (ANCEF) 2 g IVPB 2 g HYDROmorphone (DILAUDID) 1 mg/mL injecti on 1 mg acetaminophen (OFIRMEV) IV 1,000 mg lactated ringers infusion 800 mL * Agents No agents on file. * Blood No blood administrations on file. Lines, Drains, and Airways Type Details Placement Removal Wound 12/01/23; 0756; Incision; Leg; Left (lateral) 12/01/23 0756 by Sanjay Garcia RN Wound 12/01/23; 0757; N; Incision; Leg; Left, Inner 12/01/23 0757 by Sanjay Garcia RN Wound 12/01/23; 0830; Y; Other; Mouth; Left; Bruising on upper and lower left lips from filler injection 12/01/23 0830 by Ailyn Atkinson RN Peripheral IV 11/30/23; 1910; No; 20 gauge; Right; Antecubital; 12/02/23; 1124 11/30/231909 by Fabiola Toure RN 12/02/23 1124 by Yuliana Carpenter RN Peripheral IV 12/01/23; 0642; 16 gauge; Left; Forearm; 1; Placed in OR; 12/02/23; 1124 12/01/23 0642 by Eric Ching APRN, CARVING MACHINE OPERATOR 12/02/23 1124 by Yuliana Carpenter RN Endotracheal Tube: 12/01/23; 0653 (joaquina william via procedure documentation); 7; 12/01/23; 0810 12/01/23 0653 by Eric Ching APRN, ISAIAH 12/01/23 0810 by Eric Ching APRN, ISAIAH documented in this encounter Social History Tobacco [...] on file documented as of this encounter OR Notes * Anesthesia Postprocedure Evaluation - Joaquin Herrera MD - 12/01/2023 11:17 AM CDT Anesthesia Post Eval Patient: Ramona Sanders Procedure(s) Performed: FASCIOTOMY, LOWER EXTREMITY (Left: Leg Lower) VAC SPONGE APPLY (Left: Leg Lower) I've examined the patient and determined that he[facility] is medically [facility] Anesthesia type: General () Patient location: PACU Patient status: Post-procedure vital signs reviewed and stable Level of Consciousness: Awake Post-op pain: Adequate Respiratory: Stable Cardiovascular: Stable PONV status: none Fluid status: Acceptable Last Vitals: Vitals Value Taken Time BP 99/66 12/01/23 1115 Temp 37.3 ??C (99.1 ??F) 12/01/23 0815 Pulse 68 12/01/23 1116 Resp 11 12/01/23 1116 SpO2 98 % 12/01/23 1116 Vitals shown include unfiled device data. * Anesthesia Preprocedure Evaluation - Emir Bullock MD - 12/01/2023 6:54 AM CDT Anesthesia Pre-Evaluation Summary Statement: This is a 63 y.o. year old patient scheduled for FASCIOTOMY, LOWER EXTREMITY (Left: Leg Lower) VAC SPONGE APPLY (Left: Leg Lower). Anesthesia Evaluation Internal or external H&P reviewed, patient examined and changes and/or additions made as needed Anesthesia Considerations narcotic use, , pre-existing infection Pulmonary - normal exam (+) , , , , , , tobacco use , , , , , Neurological - negative ROS (+) chronic back pain Psychiatric (+) substance abuse Cardiovascular - negative ROS Rhythm: regular Rate: normal Endo (+) diabetes mellitus () Musculoskeletal - negative ROS HEENT - negative ROS GI - negative ROS Hematologic/Onc (+) anemia /Renal/Diaphragm Builder - negative ROS Airway Mallampati: II TM distance: >3 FB Neck ROM: full Mouth Opening: good Dental (+) poor dentition Risk of dental damage discussed with patient/guardian who acknowledges understanding. OB Other (+) chronic pain Physical Exam Anesthesia Plan ASA 3 - emergent general intravenous induction Maintenance: Balanced Post-op Care: routine analgesia Anesthetic plan and risks discussed with patient. The use of blood products has been discussed with the patient, and consented by patient. Plan discussed with CARVING MACHINE OPERATOR. Vitals: 12/01/23 0444 BP: 115/68 Pulse: 73 Resp: 13 Temp: SpO2: 96% Relevant Problems No relevant active problems Emir Bullock MD, 12/01/2023 6:54 AM * Anesthesia Procedure Notes - Eric Ching APRN, CRNA - 12/01/2023 6:52 AM CDTAssociated Order(s): Intubation/Airway AIRWAY/INTUBATION PROCEDURE direct laryngoscopy (Type: Surgical Anesthesia) Process/Method: sedated and paralyzed Indications for procedure: surgery Assessment: vocal cords open and clear Device Device used: MAC Supporting device: Blade size: 3 The patient was intubated with a 7.0 mm standard endotracheal tube inflated to seal and secured at 22 cm to Lips Grade: I Sellicks used Narrative 1 intubation attempt(s) confirmed in 0-30 sec using BVM ventilation between attempts Intubation Assessment: +ETCO2 and EBBS Ease of intubation (I-easy to IV-difficult): I Dentition Assessment: dentition unchanged and oral mucosa unchanged Performed by: CARVING MACHINE OPERATOR: Eric Ching APRN, CRNAAnesthesiologist: Emir Bullock MD Additional Notes RSI Events Anesthesia start: 12/01/2023 6:32 AM Intubation time: 12/01/2023 6:41 AM documented in this encounter Miscellaneous Notes * Anesthesia Handoff Note - Eric Ching APRN, CRNA - 12/01/2023 8:18 AM CDT Anesthesia Post Handoff Patient: Ramona Sanders Procedure(s) Performed: FASCIOTOMY, LOWER EXTREMITY (Left: Leg Lower) VAC SPONGE APPLY (Left: Leg Lower) Patient was stable and nail beds/oral mucosa pink at time of handoff. Patient location: PACU Transportation: Patient was not placed on High Flow Oxygen. Anesthesia Type: general Patient did not meet fast track criteria. Report to RN () The nurse's questions were answered. Comments: Monitors applied and audible. RA 91% Last Vitals: Vitals: 12/01/23 0444 BP: 115/68 Pulse: 73 Resp: 13 Temp: SpO2: 96% * Anesthesia Extubation Note - Eric Ching APRN, CRNA - 12/01/2023 8:18 AM CDT Anesthesia Extubation Note At the time of extubation the patient was breathing spontaneously, follows commands, orally suctioned, awake, vital signs stable and within normal limits, headlift for 5 seconds, strong hand grasps for 5 seconds, 4-4 on TOF with sustained tetany, briskly follows verbal commands and eyes open. Extubation details: Spontaneous respirations, Oral airway, Pharyngeal reflexes present, Bag valve mask and Oral ETT removed documented in this encounter Plan of Treatment Upcoming Encounters Date Type Department Care Team (Late st Contact Info) Description 12/15/2023 1:00 PM EYE DROPPER ASSEMBLER [facility] [address] [place] [id number] Scheduled Discharge Disposition: Discharged to home or self care documented as of this encounter Procedures Procedure Name Priority Date/Time Associated Diagnosis Comments INTUBATION Routine 12/01/2023 6:52 AM CDT documented in this encounter Results * Intubation/Airway (12/01/2023 6:52 AM CDT) Narrative [...] at 22 cm to Lips Grade: I Sellicks used Narrative 1 intubation attempt(s) confirmed in 0-30 sec using BVM ventilation between attempts ?? Intubation Assessment: +ETCO2 and EBBS ?? Ease of intubation (I-easy to IV-difficult): I Dentition Assessment: dentition unchanged and oral mucosa unchanged Performed by: CARVING MACHINE OPERATOR: Eric Ching APRN, CRNAAnesthesiologist: Emir Bullock MD Additional Notes RSI Events Anesthesia start: 12/01/2023 6:32 AM Intubation time: 12/01/2023 6:41 AM Joaquin Herrera MD PROCEDURES documented in this encounter Visit Diagnoses Not on filedocumented in this encounter Administered Medications Inactive Administered Medications - up to 3 most recent administrations Medication Order MAR Action Action Date Dose Rate Site acetaminophen (OFIRMEV) 10 mg/mL IV Intravenous, INTRA-OP PRN ONCE MAY REPEAT, Administer over 15 Minutes, Starting on Fri12/01/23 at 0732, Until Fri12/01/23 at 0819 Given 12/01/2023 7:32 AM CDT 1,000 mg ceFAZolin (ANCEF) IVPB Intravenous, INTRA-OP PRN ONCE MAY REPEAT, Starting on Fri12/01/23 at 0647, Until Fri12/01/23 at 0819 Given 12/01/2023 6:47 AM CDT 2 g dexamethasone (DECADRON) 20 mg/ 5mL injection IV Push, INTRA-OP PRN ONCE MAY REPEAT, Starting on Fri12/01/23 at 0650, Until Fri12/01/23 at 0819 Given 12/01/2023 6:53 AM CDT 6 mg fentaNYL (SUBLIMAZE) 100 mcg/2mL injection Intravenous, INTRA-OP PRN ONCE MAY REPEAT, Starting on Fri12/01/23 at 0636, Until Fri12/01/23 at 0819 Given 12/01/2023 7:17 AM CDT 50 mcg Given 12/01/2023 6:36 AM CDT 50 mcg HYDROmorphone PF (DILAUDID) 1 mg/mL injection IV Push, INTRA-OP PRN ONCE MAY REPEAT, Starting on Fri12/01/23 at 0720, Until Fri12/01/23 at 0819 Given 12/01/2023 8:11 AM CDT 0.3 mg Given 12/01/2023 7:55 AM CDT 0.2 mg Given 12/01/2023 7:41 AM CDT 0.2 mg lactated ringers infusion Intravenous, PERIOP CONTINUOUS, Starting on Fri12/01/23 at 0650, Until Fri12/01/23 at 0819 New Bag 12/01/2023 6:32 AM CDT lidocaine 2% injection Intravenous, INTRA-OP PRN ONCE MAY REPEAT, Starting on Fri12/01/23 at 0636, Until Fri12/01/23 at 0819 Given 12/01/2023 7:59 AM CDT 30 mg Given 12/01/2023 6:36 AM CDT 70 mg midazolam (PF) (VERSED) injection IV Push, INTRA-OP PRN ONCE MAY REPEAT, Starting on Fri12/01/23 at 0632, Until Fri12/01/23 at 0819 Given 12/01/2023 6:32 AM CDT 2 mg ondansetron (ZOFRAN) 4 mg/2 mL injection IV Push, INTRA-OP PRN ONCE MAY REPEAT, Starting on Fri12/01/23 at 0732, Until Fri12/01/23 at 0819 Given 12/01/2023 7:32 AM CDT 4 mg phenylephrine (NAIDA-SYNEPHRINE) 1 mg/10mL injection IV Push, INTRA-OP PRN ONCE MAY REPEAT, Starting on Fri12/01/23 at 0646, Until Fri12/01/23 at 0819 Given 12/01/2023 7:35 AM CDT 100 mcg Given 12/01/2023 7:13 AM CDT 100 mcg Given 12/01/2023 7:01 AM CDT 100 mcg propofol (DIPRIVAN) 10 mg/mL injection emulsion Intravenous, INTRA-OP PRN ONCE MAY REPEAT, Starting on Fri12/01/23 at 0636, Until Fri12/01/23 at 0819 Given 12/01/2023 7:58 AM CDT 10 mg Given 12/01/2023 7:54 AM CDT 10 mg Given 12/01/2023 7:42 AM CDT 10 mg rocuronium bromide (ZEMURON) 10 mg/mL injection IV Push, INTRA-OP PRN ONCE MAY REPEAT, Starting on Fri12/01/23 at 0640, Until Fri12/01/23 at 0819 Given 12/01/2023 6:40 AM CDT 30 mg succinylcholine chloride (ANECTINE) 20 mg/mL injection IV Push, INTRA-OP PRN ONCE MAY REPEAT, Starting on Fri12/01/23 at 0636, Until Fri12/01/23 at 0819 Given 12/01/2023 6:36 AM CDT 120 mg sugammadex (BRIDION) 200 mg/2 mL injection IV Push, INTRA-OP PRN ONCE MAY REPEAT, Starting on Fri12/01/23 at 0736, Until Fri12/01/23 at 0819 Given 12/01/2023 7:43 AM CDT 50 mg Given 12/01/2023 7:41 AM CDT 50 mg Given 12/01/2023 7:40 AM CDT 50 mg documented in this encounter Care Teams Fire Protection Equipment Technician Relationship Specialty Start Date End Date Pcp, No [facility] [place] [address] PCP - General 03/18/09 documented as of this encounter
--- OUTSIDE RECORDS SUMMARY | 2023-12-04 03:29 | XMS_ITS | Encounter Summary ---
Author Organization [facility] Address [address] [place] [address] Phone Care Team Providers Care Nuisance Wildlife Control Operator Name Role Phone Pcp, No Primary Care Provider Unavailabl e Encounter Details Date Type Department Care Team (Late st Contact Info) Description 12/01/[address] [facility] Radiology Department DIONISIO [address] [id number] Provider, [place] [address] Referral of patient (Primary Dx) Social History Tobacco Use Types [...] st Contact Info) Description 12/15/2023 1:00 PM SUPERVISOR INSPECTION DEPARTMENT [facility] [address] [place] [phone] Scheduled Discharge Disposition: Discharged to home or self care documented as of this encounter Results * XR LOWER EXTREMITY OUTSIDE FILMS (11/30/2023 4:55 PM CDT) Narrative Petey Topm-Eeoieb-Qwulmtmvn - 12/01/2023 9:32 AM CDT Outside Film Only Outside Provider RAD OUTSIDE FILMS * XR LOWER EXTREMITY OUTSIDE FILMS (11/30/2023 4:54 PM CDT) Narrative Petey Bxkk-Dombfz-Dymxguesh - 12/01/2023 9:34 AM CDT Outside Film Only Outside Provider RAD OUTSIDE FILMS * XR LOWER EXTREMITY OUTSIDE FILMS (11/30/2023 4:53 PM CDT) Narrative Petey Luhf-Exoyzp-Gaiwovqww - 12/01/2023 9:33 AM CDT Outside Film Only Outside Provider RAD OUTSIDE FILMS * XR LOWER EXTREMITY OUTSIDE FILMS (11/30/2023 4:51 PM CDT) Narrative User, Lvut-Rqzgtk-Agooioxiv - 12/01/2023 10:15 AM CDT Outside Film Only Outside Provider RAD OUTSIDE FILMS * XR LOWER EXTREMITY OUTSIDE FILMS (11/30/2023 4:50 PM CDT) Narrative User, Hhgy-Dhixur-Tzloezcph - 12/01/2023 9:35 AM CDT Outside Film Only Outside Provider RAD OUTSIDE FILMS documented in this encounter Visit Diagnoses Diagnosis Referral of patient- Primary Referral of patient without examination or treatment documented in this encounter Care Teams Nuisance Wildlife Control Operator Relationship Specialty Start Date End Date Pcp, [place] [address] PCP - General 03/18/09 documented as of this encounter
--- OUTSIDE RECORDS SUMMARY | 2023-12-04 03:29 | XMS_ITS | Referral Summary ---
Author Organization [facility] Address [address] [place] [address] Care Team Providers Care Tannery Worker Name Role Phone [facility]- Unava ilable Hayes Mcelroy MD Primary Care Provider [phone] Encounters Date Type Department Care Team Description 2023 Travel 2023 9:40 AM CDT Office Visit [facility] [address] [place] [phone] Brock Sawyer MD S/P lumbar fusion (Primary Dx) 10/28/2023 Travel 10/28/2023 9:15 AM CDT Office Visit [facility]) [address] [place] [phone] Jg Ivory PA-C Postoperative state (Primary Dx); S/P lumbar fusion; Lumbar spine pain 09/23/2023 5:55 AM CDT - 09/25/2023 11:44 AM CDT Hospital Encounter [facility] [place] [address] [place] RIVERA [id number] Brock Sawyer MD Chronic pain disorder Discharge Disposition: Returning Home/Self Care 09/23/2023 8:00 AM CDT - 09/23/2023 9:35 AM CDT Surgery [facility] Operating Room [address] [facility] [place] [address] Brock Sawyer MD BILATERAL HARDWARE REMOVAL L2- PELIVS WITH EXPLORATION OF L3-4 FUSION AND REPLACEMENT OF RODS L3-4 09/22/2023 Travel 09/04/2023 Travel 09/04/2023 9:30 AM CDT Office Visit [facility] ([facility]) [address] [facility] [address] [facility] [place] [phone] Brock Sawyer MD Pain due to internal orthopedic prosthetic devices, implants and grafts, initial encounter (HCC) (Primary Dx); Breakdown (mechanical) of internal fixation device of vertebrae, initial encounter (HCC) from Last 3 Months Allergies Active Allergy Reactions Criticality Noted Date Comments Atorvastatin Other 09/30/2019 Skin irritation around eyes Baclofen Nausea Low 12/23/2012 Tpoxqmoxkebl-Xrdhjxz-Ifpwvn e Low 12/23/2012 Cyclobenzaprine Low 04/24/2011 Other [...] 10/16/2022 Active naloxone (NARCAN) 4 mg/actuation Nasal [place] Administer one dose (4 mg) into nostril [...] (11/11/2022): Added automatically from request for surgery [id number] Chronic anemia 08/22/2021 Type 2 diabetes mellitus [...] drink = 0.6 oz pur e alcohol) [facility] Utilities Answer Date Recorded In the past 12 months has e [employer], gas, oil, or water [employer] threatened to shut off services in your [...] on file Medical Devices Implanted Type Area Industrial Green Systems Designer Device Identifier Shelf Expiration Date Model / Serial / Lot Beltran 50mm 5.5mm Ccm Curv - [id number] Implanted:Qty : 1 on 09/23/2023 by Brock Sawyer MD at [facility] Beltran N/A: Spine Lumbar [employer] [id number] / / Beltran 60mm 5.5mm Ccm Curv - [id number] Implanted:Qty : 1 on 09/23/2023 by Brock Sawyer MD at [facility] Beltran N/A: Spine Lumbar [employer] [id number] / / Set Screw Solera Brk Off - [id number] Implanted:Qty : 4 on 09/23/2023 by Brock Sawyer MD at [facility] Screw/An chor N/A: Spine Lumbar [employer] [id number] / / Procedures Procedure Name Priority Date/Time [...] - 100 mg/dL 09/25/2023 11:36 AM CDT [facility] Blood 09/25/2023 7:53 AM CDT 09/25/2023 11:36 AM CDT Brock Sawyer MD LAB POINT OF CARE TEST RESULTS [facility] [address] [id number] * XR C-ARM SPINE (09/23/2023 9:14 AM [...] Lumen Performed by: Nay Zamudio APRN, CRNA, FIELD SECRETARY Post-procedure assessment: BBS and EtCO2 + Cuff inflated: yes ETT to lip: 21 cm Sumit SOTELO from Last 3 Months Advance Directives For more information, please contact: [phone] * Full Code (Latest Code Status on File) Date Activated Date Inactivated Comments 09/24/2023 3:26 PM 09/25/2023 5:49 PM Question Answer Comments How was code status determined? Patient * Full Code Date Activated Date Inactivated Comments 09/23/2023 5:59 AM 09/23/2023 9:48 AM Question Answer Comments How was code status determined? Previous Documen tation Care Teams Tannery Worker Relationship Specialty Start Date End Date [facility] [address] [place] [address] PCP - Primary Care Clinic 09/18/22 [place] [address] [place] [address] PCP - General 05/20/23
--- OUTSIDE RECORDS SUMMARY | 2023-12-04 03:29 | XMS_ITS | Encounter Summary ---
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 CDT 12/03/2023 5:58 AM CDT Kory Kimball MD LABORATORY [facility] [address] [address] * MAGNESIUM (12/03/2023 4:29 AM CDT) Magnesium 2.1 1.6 - 2.4 mg/dL [facility] Blood 12/03/2023 4:29 AM CDT 12/03/2023 5:58 AM CDT Kory Kimball MD LABORATORY [facility] [address] [address] * (ABNORMAL) PANEL BASIC METABOLIC (BMP) (12/03/2023 4:29 AM CDT) Sodium 143 135 - 148 mmol/L [facility] Potassium 3.5 3.5 - 5.3 mmol/L [facility] Chloride 110(H) 92 - 108 mmol/L [facility] CO2 25 22 - 30 mmol/L [facility] Glucose 130(H) 70 - 100 mg/dL [facility] BUN 14 8 - 23 mg/dL [facility] Creatinine 0.66 0.50 - 1.00 mg/dL [facility] Calcium 8.5(L) 8.8 - 10.2 mg/dL [facility] AnGap 8 8 - 16 mmol/L [facility] eGFR (2020 CKD-EPI) 100 >=60 ml/min/1.7 3m2 [facility] Comment: The estimated glomerular filtration rate (eGFR) was calculated using the CKD-EPI 2020 creatinine equation, which does not include race as a factor. This equation is validated in individuals 18 years of age and older, and eGFR is normalized to a body surface area of 1.73m^2. Blood 12/03/2023 4:29 AM CDT 12/03/2023 5:58 AM CDT Kory Kimball MD LABORATORY [facility] [address] [address] * (ABNORMAL) CBC WITH PLTS/AUTO DIFF (12/03/2023 4:29 AM CDT) WBC 5.82 4.00 - 10.00 k/cmm [facility] RBC 3.61(L) 3.90 - 5.20 m/cmm [facility] Hgb 9.0(L) 11.5 - 15.7 g/dL [facility] Hematocrit 29.6(L) 34.0 - 45.0 % [facility] MCV 82.0 80.0 - 100.0 fL [facility] MCH 24.9(L) 25.0 - 32.0 pg [facility] MCHC 30.4(L) 31.0 - 36.0 g/dL [facility] RDW 17.2(H) 11.5 - 14.5 % [facility] Plt 192 150 - 400 k/cmm [facility] MPV 9.4 6.5 - 12.5 fL [facility] Automated Abs Neutrophil 3.14 1.70 - 6.50 k/cmm [facility] Comment:Preliminary ANC, Fin al Result to Follow Abs Immature Granulocyte 0.02 0.00 - 0.09 k/cmm [facility] Comment:The Immature Granulo cyte Absolute count contains metamyelocytes and myelocytes. Abs Neutrophil 3.14 1.70 - 6.50 k/cmm [facility] Abs Lymphocyte 1.89 0.80 - 4.00 k/cmm [facility] Abs Monocyte 0.47 0.20 - 1.00 k/cmm [facility] Abs Eosinophil 0.28 0.00 - 0.60 k/cmm [facility] Abs Basophil 0.02 0.00 - 0.20 k/cmm [facility] Blood 12/03/2023 4:29 AM CDT 12/03/2023 5:58 AM CDT Kory Kimball MD LABORATORY [facility] [address] [address] * (ABNORMAL) PANEL BASIC METABOLIC (BMP) (12/02/2023 4:42 AM CDT) AnGap 9 8 - 16 mmol/L [facility] Creatinine 0.73 0.50 - 1.00 mg/dL [facility] Calcium 8.5(L) 8.8 - 10.2 mg/dL [facility] eGFR (2020 CKD-EPI) 94 >=60 ml/min/1.7 3m2 [facility] Comment: The estimated glomerular filtration rate (eGFR) was calculated using the CKD-EPI 2020 creatinine equation, which does not include race as a factor. This equation is validated in individuals 18 years of age and older, and eGFR is normalized to a body surface area of 1.73m^2. BUN 11 8 - 23 mg/dL [facility] Sodium 141 135 - 148 mmol/L [facility] CO2 24 22 - 30 mmol/L [facility] Glucose 120(H) 70 - 100 mg/dL [facility] Chloride 108 92 - 108 mmol/L [facility] Potassium 3.5 3.5 - 5.3 mmol/L [facility] Blood 12/02/2023 4:42 AM CDT 12/02/2023 5:19 AM CDT Joaquin Snow MD LABORATORY [facility] [address] [address] * (ABNORMAL) CBC WITH PLTS/AUTO DIFF (12/02/2023 4:42 AM CDT) WBC 6.95 4.00 - 10.00 k/cmm [facility] RBC 3.71(L) 3.90 - 5.20 m/cmm [facility] Hgb 9.4(L) 11.5 - 15.7 g/dL [facility] Hematocrit 31.1(L) 34.0 - 45.0 % [facility] MCV 83.8 80.0 - 100.0 fL [facility] MCH 25.3 25.0 - 32.0 pg [facility] MCHC 30.2(L) 31.0 - 36.0 g/dL [facility] RDW 17.0(H) 11.5 - 14.5 % [facility] Plt 197 150 - 400 k/cmm [facility] MPV 9.0 6.5 - 12.5 fL [facility] NRBC 0.3(H) 0.0 - 0.0 /100WBC [facility] Automated Abs Neutrophil 3.98 1.70 - 6.50 k/cmm [facility] Comment:Preliminary ANC, Fin al Result to Follow Abs Immature Granulocyte 0.03 0.00 - 0.09 k/cmm [facility] Comment:The Immature Granulo cyte Absolute count contains metamyelocytes and myelocytes. Abs Neutrophil 3.98 1.70 - 6.50 k/cmm [facility] Abs Lymphocyte 2.25 0.80 - 4.00 k/cmm [facility] Abs Monocyte 0.45 0.20 - 1.00 k/cmm [facility] Abs Eosinophil 0.21 0.00 - 0.60 k/cmm [facility] Abs Basophil 0.03 0.00 - 0.20 k/cmm [facility] Blood 12/02/2023 4:42 AM CDT 12/02/2023 5:19 AM CDT Joaquin Snow MD LABORATORY [address] [address] * VITAMIN H25-ALGGAS TO MMA (12/02/2023 4:42 AM CDT) B12 340 211 - 946 pg/mL [facility] Blood 12/02/2023 4:42 AM CDT 12/02/2023 5:19 AM CDT Joaquin Snow MD LABORATORY Performing Organization Address City/[facility]/ZIP Co de Phone Number [address] [address] * (ABNORMAL) TRANSFERRIN (INCLUDES TIBC) (12/02/2023 4:42 AM CDT) Transferrin 230 200 - 360 mg/dL [facility] IBC 343 298 - 536 mcg/dL [facility] Iron Saturation Percent 6(L) 20 - 50 % [facility] Blood 12/02/2023 4:42 AM CDT 12/02/2023 5:19 AM CDT Joaquin Snow MD LABORATORY [facility] [address] [address] * (ABNORMAL) IRON (12/02/2023 4:42 AM CDT) Iron 19(L) 35 - 145 mcg/dL [facility] Blood 12/02/2023 4:42 AM CDT 12/02/2023 5:19 AM CDT Joaquin Snow MD LABORATORY [facility] [address] [address] * FERRITIN (12/02/2023 4:42 AM CDT) Ferritin 18.0 13.0 - 150.0 ng/mL [facility] Comment: Test Performed by: [facility] [address] [place] [address] Blood 12/02/2023 4:42 AM CDT 12/02/2023 5:19 AM CDT Joaquin Snow MD LABORATORY [facility] [address] [place] [address] * XR SHOULDER RT 2/3V AP/GRASH/Y* (12/01/2023 [...] Previous cervical spinesurgery Reading Radiologist: Ronald Nunn Pmea Miranda PA-C RAD XRAY * XR KNEE [...] POC Glucose 108(H) 70 - 100 mg/dL [facility] Blood 12/01/2023 9:07 AM CDT Gonzalez Gomez MD LABORATOR Y [facility] [address] [place] [address], [place] * (ABNORMAL) POC GLUCOSE (12/01/2023 6:22 AM CDT) POC Glucose 101(H) 70 - 100 mg/dL [facility] Blood 12/01/2023 6:22 AM CDT Gonzalez Gomez MD LABORATOR Y [facility] [address] [place] [address], [place] * CT LOW EXTREMITY LEFT NO [...] PM CDT) 11/30/2023 7:09 PM CDT Impressions [facility] CVIS EKG ORDERS - 11/30/2023 7:09 PM CDT SINUS RHYTHM POSSIBLE RIGHT ATRIAL ENLARGEMENT ??[0.25mV P-WAVE] BORDERLINE ECG P-R Interval 176 ms QRS Interval 95 ms QT Interval 390 ms QTC Interval 434 ms P [place] 78 QRS [place] 77 T Wave [place] 76 Narrative Procedure Note Greg Posey MD - 12/01/2023 IMPRESSION SINUS RHYTHM POSSIBLE RIGHT ATRIAL ENLARGEMENT [0.25mV P-WAVE] BORDERLINE ECG P-R Interval 176 ms QRS Interval 95 ms QT Interval 390 ms QTC Interval 434 ms P [place] 78 QRS [place] 77 T Wave [place] 76 Jian Howell MD EKG [facility] EKG ORDERS * CK, TOTAL (11/30/2023 7:02 PM CDT) CK na 26 - 192 [facility] Comment:CK = 82. Accuracy of result suspect due to hemolysis. Blood 11/30/2023 7:02 PM CDT 11/30/2023 7:54 PM CDT Gonzalez Gomez MD LABORATOR Y Performing Organization Address [facility] Co de Phone Number [address] [address] * EXTRA TUBE - SST (11/30/2023 7:02 PM CDT) SST TUBE Stored [facility] Comment:SST tubes (Serum Sep arator) are stored in the lab for 3 days from the collection date. Blood 11/30/2023 7:02 PM CDT 11/30/2023 7:09 PM CDT Jian Howell MD LABORATORY Performing Organization Address [facility] de Phone Number [address] [address] * HS TROPONIN (11/30/2023 7:02 PM CDT) Pathologist [facility] HS Troponin I <3 <=14 ng/L [facility] Blood 11/30/2023 7:02 PM CDT 11/30/2023 7:08 PM CDT Narrative [facility] - 11/30/2023 7:34 PM CDT First Occurrence of the Troponin order is to be drawn Stat by Nursing staff on the unit. Jian Howell MD LABORATORY Performing Organization Address [facility] Co de Phone Number [address] [address] * ETHANOL (ETOH) LEVEL, BLOOD (11/30/2023 7:02 PM CDT) Ethanol Negative Negative g/dL [facility] Blood 11/30/2023 7:02 PM CDT 11/30/2023 7:17 PM CDT Jian Howell MD LABORATORY Performing Organization Address [facility] Co de Phone Number [facility] [address] [address] * PTT (APTT) (11/30/2023 7:02 PM CDT) [facility] APTT 31.0 25.0 - 37.0 sec [facility] Blood 11/30/2023 7:02 PM CDT 11/30/2023 7:17 PM CDT Jian Howell MD LABORATORY Performing Organization Address City/[facility]/ZIP Co de Phone Number [facility] [address] [address] * ED INR (11/30/2023 7:02 PM CDT) [facility] ED INR 1.0 0.8 - 1.1 [facility] Comment: Warfarin Therapeutic Range: Standard Intensity: 2.0 - 3.0 High Intensity: 2.5 - 3.5 This is a rapid INR screening test which uses whole blood; results may infrequently differ from plasma INR results. If medication adjustments/dosing are required a PT/INR test ([id number]) should be ordered and performed in the main laboratory. Blood 11/30/2023 7:02 PM CDT 11/30/2023 7:08 PM CDT Jian Howell MD LABORATORY Performing Organization Address [facility] Co de Phone Number [facility] [address] [address] * PRECAUTIONARY TUBE (11/30/2023 7:02 PM CDT) [facility] Prec Tube Precautionary Blood Bank Specimen Received. [facility] Blood 11/30/2023 7:02 PM CDT 11/30/2023 7:17 PM CDT Jian Howell MD LAB TRANSFUSION SERV ICES Performing Organization Address City/[facility] Co de Phone Number [facility] [address] [address] * LACTATE (LACTIC ACID) (11/30/2023 7:02 PM CDT) Lactate 1.5 0.7 - 2.1 mmol/L [facility] Blood 11/30/2023 7:02 PM CDT 11/30/2023 7:09 PM CDT Narrative [facility] - 11/30/2023 7:16 PM CDT Send specimen on ice! Jian Howell MD LABORATORY Performing Organization Address [facility] Co de Phone Number [facility] [address] [address] * FIBRINOGEN (11/30/2023 7:02 PM CDT) Pathologist [facility] Fibrinogen 222 200 - 400 mg/dL [facility] Blood 11/30/2023 7:02 PM CDT 11/30/2023 7:17 PM CDT Jian Howell MD LABORATORY Performing Organization Address [facility] de Phone Number [facility] [address] [address] * (ABNORMAL) PANEL HEPATIC FUNCTION (11/30/2023 7:02 PM CDT) Pathologist [facility] Total Protein 6.0(L) 6.4 - 8.3 g/dL [facility] Albumin 4.2 3.8 - 5.1 g/dL [facility] Bili Total <0.2 <=1.2 mg/dL [facility] Bili Direct na <=0.3 mg/dL [facility] Comment:BILID < 0.2. Accurac y of result suspect due to hemolysis. Alk Phos 104 35 - 104 IU/L [facility] Comment:No reference range e stablished for patients <18 years old. ALT (SGPT) na <=33 IU/L [facility] Comment:ALT = 8. Accuracy of result suspect due to hemolysis. AST(SGOT) na 5 - 40 IU/L [facility] Comment:AST = 20. Accuracy o f result suspect due to hemolysis. Blood 11/30/2023 7:02 PM CDT 11/30/2023 7:17 PM CDT Jian Howell MD LABORATORY [facility] [address] [address] * (ABNORMAL) ED HEMOGLOBIN TOTAL (ED ONLY) (11/30/2023 7:02 PM CDT) Hgb 10.2(L) 11.5 - 15.7 g/dL [facility] Blood 11/30/2023 7:02 PM CDT 11/30/2023 7:09 PM CDT Jian Howell MD LABORATORY Performing Organization Address City/[facility]/ZIP Co de Phone Number [facility] [address] [address] * (ABNORMAL) ED CHEMISTRY LABS(NA,K,CL,CO2,GLU,CREAT,CA-IONIZED,ANION GAP) (11/30/2023 7:02 PM CDT) Sodium 140 135 - 148 mmol/L [facility] Chloride 111(H) 92 - 108 mmol/L [facility] AnGap 7(L) 8 - 16 mmol/L [facility] Glucose 99 70 - 100 mg/dL [facility] ICA, Actual 4.40 4.40 - 5.20 mg/dL [facility] ICA, pH Corrected 4.50 4.40 - 5.20 mg/dL [facility] Creatinine 0.95 0.50 - 1.00 mg/dL [facility] BICARB 22 22 - 26 mEq/L [facility] eGFR (2020 CKD-EPI) 68 >=60 ml/min/1.7 3m2 [facility] Comment: The estimated glomerular filtration rate (eGFR) was calculated using the CKD-EPI 2020 creatinine equation, which does not include race as a factor. This equation is validated in individuals 18 years of age and older, and eGFR is normalized to a body surface area of 1.73m^2. Potassium 4.5 3.5 - 5.3 mmol/L [facility] Blood 11/30/2023 7:02 PM CDT 11/30/2023 7:09 PM CDT Jian Howell MD LABORATORY Performing Organization Address City/[facility]/ZIP Co de Phone Number [facility] [address] [address] * (ABNORMAL) CBC WITH PLTS/AUTO DIFF (11/30/2023 7:02 PM CDT) WBC 9.81 4.00 - 10.00 k/cmm [facility] RBC 3.98 3.90 - 5.20 m/cmm [facility] Hgb 10.1(L) 11.5 - 15.7 g/dL [facility] Hematocrit 32.6(L) 34.0 - 45.0 % [facility] MCV 81.9 80.0 - 100.0 fL [facility] MCH 25.4 25.0 - 32.0 pg [facility] MCHC 31.0 31.0 - 36.0 g/dL [facility] RDW 16.9(H) 11.5 - 14.5 % [facility] Plt 233 150 - 400 k/cmm [facility] MPV 9.1 6.5 - 12.5 fL [facility] Automated Abs Neutrophil 6.22 1.70 - 6.50 k/cmm [facility] Comment:Preliminary ANC, Fin al Result to Follow Abs Immature Granulocyte 0.03 0.00 - 0.09 k/cmm [facility] Comment:The Immature Granulo cyte Absolute count contains metamyelocytes and myelocytes. Abs Neutrophil 6.22 1.70 - 6.50 k/cmm [facility] Abs Lymphocyte 2.73 0.80 - 4.00 k/cmm [facility] Abs Monocyte 0.49 0.20 - 1.00 k/cmm [facility] Abs Eosinophil 0.30 0.00 - 0.60 k/cmm [facility] Abs Basophil 0.04 0.00 - 0.20 k/cmm [facility] Blood 11/30/2023 7:02 PM CDT 11/30/2023 7:16 PM CDT Jian Howell MD LABORATORY Performing Organization Address City/[facility]/ZIP Co de Phone Number [facility] [address] [place] [phone] * (ABNORMAL) BLOOD GASES (11/30/2023 7:02 PM CDT) PH Juvenal 7.40 7.32 - 7.42 [facility] PCO2 Juvenal 38(L) 41 - 51 mmHG [facility] PO2 Juvenal 39 25 - 40 mmHG [facility] Bicarb Juvenal 23(L) 24 - 28 mEq/L [facility] O2 Sat Juvenal 73 % [facility] Base Exc Juvenal -1.2 -10.0 - 2.0 mmol/L [facility] Blood Venous 11/30/2023 7:02 PM CDT 11/30/2023 7:09 PM CDT Jian Howell MD LABORATORY [facility] [address] [address] * ED US CRITICAL CARE (11/30/2023 6:59 [...] of left lower extremity, initial encounter (CMS) Traumatic compartment syndrome of left lower extremity, initial encounter (CMS) documented in this encounter Admitting Diagnoses Diagnosis [...] Given 12/01/2023 4:30 PM CDT 150 mg DC MED REC REVIEW BY PHARMACY Discharge Date: [...] Given 12/01/2023 4:31 PM CDT 120 mg HYDROmorphone PF (DILAUDID) 1 mg/mL injection 2 mg 2 mg, IV Push, Q2H PRN, Starting on Fri12/02/23 at 1124, Until Fri12/03/23 at 1914, Severe Pain (Use Second) Given 12/03/2023 2:37 PM CDT 2 mg Given 12/03/2023 9:26 AM CDT 2 mg Given 12/03/2023 6:27 AM CDT 2 mg hydrOXYzine (ATARAX;VISTARIL) tablet 25-50 [...] 1338, Until Fri12/03/23 at 1914, Sleep oxyCODONE (OxyCONTIN) CR tablet 20 mg 20 mg, Oral, Q 8H, First dose on Fri12/02/23 at 1030, Until Discontinued Given 12/03/2023 10:51 AM CDT 20 mg Given 12/02/2023 6:48 PM CDT 20 mg Given 12/02/2023 10:39 AM CDT 20 mg oxyCODONE (ROXICODONE) tablet 10-15 mg 10-15 mg, Oral, Q4H PRN, Starting on Fri12/02/23 at 0956, Until Fri12/03/23 at 1914, Moderate Pain (Use First) Given 12/03/2023 9:17 AM CDT 10 mg Given 12/02/2023 2:51 PM CDT 15 mg Given 12/02/2023 10:56 AM CDT 15 mg pantoprazole (PROTONIX) tablet 40 [...] (Dual Sign-Off - Provider: Luda Perez, JENNA) buPROPion (WELLBUTRIN XL) XL tablet 150 mg 150 mg, Oral, DAILY, First dose on Fri12/01/23 at 1335, Until Discontinued 1630 (Given - Provider: Akash Bradford RN) 0836 (Given - Provider: IVAN Esquivel)0856 (Dual Sign-Off - Provider: Luda Perez, JENNA) 0847 (Given - Provider: IVAN Esquivel)0907 (Dual Sign-Off - Provider: Luda Perez, JENNA) ceFAZolin (ANCEF) IVPB 2 g (COMPLETED) 2 g, Indication (Select One): Prophylaxis - Surgical, Intravenous, Q 8H, 2 doses, First dose on Fri12/01/23 at 1520, Last dose on Fri12/01/23 at 2200 1739 (New Bag - Provider: Akash Bradford RN)1816 (Infusion completed - Provider: Akash Bradford RN)2149 (New Bag - Provider: Kobi Dean, JENNA)2230 (Infusion completed - Provider: Kobi Dean RN) DC MED REC REVIEW BY PHARMACY(Linked Group [...] Esquivel)0857 (Dual Sign-Off - Provider: Luda Perez, RN) 0846 (Given - Provider: IVAN Esquivel)0907 (Dual Sign-Off - Provider: Luda Perez, RN) HYDROmorphone PF (DILAUDID) 1 mg/mL injection 1 mg (COMPLETED) 1 mg, IV Push, ONE TIME, 1 dose, On Fri12/01/23 at 0430 0439 (Given - Provider: Maritza Dockery RN) HYDROmorphone PF (DILAUDID) 1 mg/mL injection 1 mg (COMPLETED) 1 mg, IV Push, ONE TIME, 1 dose, On Fri12/01/23 at 0550 0550 (Given - Provider: Maritza Dockery, JENNA) HYDROmorphone PF (DILAUDID) injection 1 mg (COMPLETED) [...] Discontinued 1630 (Given - Provider: Akash Bradford RN)1925 (Not Given (removes Due time) - Provider: Kobi Dean RN - Reason: Held per nurse) 0829 (Given - Provider: IVAN Esquivel)0857 (Dual Sign-Off [...] (removes Due time) - Provider: Luda Perez, JENNA - Reason: Patient refused - Comment: Pt states she takes in the evening, message sent to pharm 12/01, 12/02 & reported to primary nurse) prazosin (MINIPRESS) capsule 1 mg 1 mg, Oral, Q EVENING, First dose on Fri12/01/23 at 2000, Until Discontinued 1944 (Not Given (removes Due time) - Provider: Kobi Dean RN - Reason: Patient refused) 1848 (Given - Provider: Yuliana Carpenter, JENNA) simvastatin (ZOCOR) tablet 20 mg 20 mg, Oral, DAILY, First dose on Fri12/01/23 at 1400, Until Discontinued 1631 (Given - Provider: Akash Bradford RN) 0838 [...] (Use First) 0827 (Given - Provider: Ailyn Atkinson, JENNA) HYDROmorphone PF (DILAUDID) 1 mg/mL injection 0.5 mg (CANCELED) 0.5 mg, IV Push, Q4H PRN, Starting on Fri12/01/23 at 0834, Until Fri12/01/23 at 1212, Severe Pain (Use Second) 1143 (Given - Provider: Ailyn Atkinson, JENNA) HYDROmorphone PF (DILAUDID) 1 mg/mL injection 0.5 [...] Ramon Crump RN)0926 (Given - Provider: Claudia Shane RN)1437 (Given - Provider: Claudia Shane RN) hydrOXYzine (ATARAX;VISTARIL) tablet 25-50 mg 25-50 mg, [...] Procedure documented in this encounter Care Teams Soap Maker Relationship Specialty Start Date End Date Pcp, [place] [address] PCP - General 03/18/09 documented as of this encounter
--- OUTSIDE RECORDS SUMMARY | 2023-12-04 03:30 | XMS_ITS | Encounter Summary ---
Author Organization [facility] Address [address] [place] [address] Care Team Providers Care Yarn Finisher Name Role Phone [facility] [place]- Unava ilable Hayes Mcelroy MD Primary Care Provider [phone] Reason for Referral * (Routine) - Open Specialty Diagnoses / Procedures Referred By Contac t Referred To Contact Procedures Discharge Instructions Vladimir Paez PA-C [address] [address] Referral ID Status Reason Start Date Expiration Date Visits Re quested Visits Authorized [id number] Open 09/25/2023 1 1 * (Routine) - Open Specialty Diagnoses / Procedures Referred By Contac t Referred To Contact Procedures Discharge Instructions Vladimir Paez PA-C [address] [address] Referral ID Status Reason Start Date Expiration Date Visits Re quested Visits Authorized [id number] Open 09/25/2023 1 1 * (Routine) - Open Specialty Diagnoses / Procedures Referred By Contac t Referred To Contact Procedures Discharge Instructions Vladimir aPez PA-C [address] [address] Referral ID Status Reason Start Date Expiration Date Visits Re quested Visits Authorized [id number] Open 09/25/2023 1 1 * (Routine) - Open Specialty Diagnoses / Procedures Referred By Contac t Referred To Contact Procedures Wound care Vladimir Paez PA-C [address] [address] Referral ID Status Reason Start Date Expiration Date Visits Re quested Visits Authorized [id number] Open 09/25/2023 1 1 * (Routine) - Open Specialty Diagnoses / Procedures Referred By Contac t Referred To Contact Procedures Dressing Change Vladimir Paez PA-C [address] [address] Referral ID Status Reason Start Date Expiration Date Visits Re quested Visits Authorized [id number] Open 09/25/2023 1 1 * (Routine) - Open Specialty Diagnoses / Procedures Referred By Contac t Referred To Contact Procedures Discharge Instructions Vladimir Paez PA-C [address] [address] Referral ID Status Reason Start Date Expiration Date Visits Re quested Visits Authorized [id number] Open 09/25/2023 1 1 * (Routine) - Open Specialty Diagnoses / Procedures Referred By Contac t Referred To Contact Procedures Shower Vladimir Paez PA-C [address] [address] Referral ID Status Reason Start Date Expiration Date Visits Re quested Visits Authorized [id number] Open 09/25/2023 1 1 * (Routine) - Open Specialty Diagnoses / Procedures Referred By Contac t Referred To Contact Procedures Discharge Instructions Vladimir Paez PA-C [address] [address] Referral ID Status Reason Start Date Expiration Date Visits Re quested Visits Authorized [id number] Open 09/25/2023 1 1 * (Routine) - Open Specialty Diagnoses / Procedures Referred By Contac t Referred To Contact Procedures Activity as tolerated Vladimir Paez PA-C [address] [address] Referral ID Status Reason Start Date Expiration Date Visits Re quested Visits Authorized [id number] Open 09/25/2023 1 1 * (Routine) - Open Specialty Diagnoses / Procedures Referred By Contac t Referred To Contact Vladimir Paez PA-C [address] [address] Blaire Sharif PA-C [address] [address] Referral ID Status Reason Start Date Expiration Date Visits Re quested Visits Authorized [id number] Open 09/25/2023 1 1 Question Answer Specify time frame for follow up? 2 Weeks Instructions to follow-up provider routine post op f/u Comments Return to clinic in 2-4 weeks for post op visit. Please call [phone] option 1 for an appointment if no appointment scheduled within 1 week of discharge * (Routine) - Open Specialty Diagnoses / Procedures Referred By Contac t Referred To Contact Vladimir Paez PA-C [address] [address] Blaire Sharif PA-C [address] [address] Referral ID Status Reason Start Date Expiration Date Visits Re quested Visits Authorized [id number] Open 09/25/2023 1 1 Question Answer Instructions to follow-up provider n/a Comments If you need a refill on your prescriptions, or you have questions or concerns, please call [phone] during office hours, Friday-Friday 8:30 a.m. to 4:30 p.m. Please plan ahead if you are running low and expect to require a refill. * (Routine) - Open Specialty Diagnoses / Procedures Referred By Contac t Referred To Contact Procedures Temperature >101 (38.3 degrees Celsius) Vladimir Paez PA-C [address] [address] Referral ID Status Reason Start Date Expiration Date Visits Re quested Visits Authorized [id number] Open 09/25/2023 1 1 * (Routine) - Open Specialty Diagnoses / Procedures Referred By Contac t Referred To Contact Procedures Severe uncontrolled pain Vladimir Paez PA-C [address] [address] Referral ID Status Reason Start Date Expiration Date Visits Re quested Visits Authorized [id number] Open 09/25/2023 1 1 * (Routine) - Open Specialty Diagnoses / Procedures Referred By Contac t Referred To Contact Procedures Increased tenderness or swelling Vladimir Paez PA-C [address] [address] Referral ID Status Reason Start Date Expiration Date Visits Re quested Visits Authorized [id number] Open 09/25/2023 1 1 * (Routine) - Open Specialty Diagnoses / Procedures Referred By Contac t Referred To Contact Procedures Persistent nausea or vomiting Vladimir Paez PA-C [address] [address] Referral ID Status Reason Start Date Expiration Date Visits Re quested Visits Authorized [id number] Open 09/25/2023 1 1 * (Routine) - Open Specialty Diagnoses / Procedures Referred By Contac t Referred To Contact Procedures Pain not relieved by medication Vladimir Paez PA-C [address] [address] Referral ID Status Reason Start Date Expiration Date Visits Re quested Visits Authorized [id number] Open 09/25/2023 1 1 * (Routine) - Open Specialty Diagnoses / Procedures Referred By Contac t Referred To Contact Procedures Numbness/pain in extremity Vladimir Paez PA-C [address] [address] Referral ID Status Reason Start Date Expiration Date Visits Re quested Visits Authorized [id number] Open 09/25/2023 1 1 * (Routine) - Open Specialty Diagnoses / Procedures Referred By Contac t Referred To Contact Procedures Increased confusion Vladimir Paez PA-C [address] [address] Referral ID Status Reason Start Date Expiration Date Visits Re quested Visits Authorized [id number] Open 09/25/2023 1 1 * (Routine) - Open Specialty Diagnoses / Procedures Referred By Contac t Referred To Contact Procedures Inability to eat, drink, or take medication Vladimir Paez PA-C [address] [place] [address] Referral ID Status Reason Start Date Expiration Date Visits Re quested Visits Authorized [id number] Open 09/25/2023 1 1 * (Routine) - Open Specialty Diagnoses / Procedures Referred By Contac t Referred To Contact Procedures Difficulty breating, headache, or visual disturbance Vladimir Paez PA-C [address] [place] [address] Referral ID Status Reason Start Date Expiration Date Visits Re quested Visits Authorized [id number] Open 09/25/2023 1 1 * (Routine) - Open Specialty Diagnoses / Procedures Referred By Contac t Referred To Contact Procedures Any questions or concerns Vladimir Paez PA-C [address] [place] [address] Referral ID Status Reason Start Date Expiration Date Visits Re quested Visits Authorized [id number] Open 09/25/2023 1 1 Reason for Visit [...] Expiration Date Visits Re quested Visits Authorized [id number] 1 1 Encounter Details Date Type Department Care Team (Late st Contact Info) Description 09/23/2023 5:55 AM CDT - 09/25/2023 11:44 AM CDT Hospital Encounter [id number] [facility] [place] [address] Brock Sawyer MD [address] [facility] [address] [place] [address] Chronic pain disorder Discharge Disposition: Returning Home/Self Care Social History Tobacco Use Types Packs/Day Years Used Date Smoking Tobacco: Former Cigarettes Smokeless Tobacco: Never Tobacco Cessation:Counseling Given: Not Answered Comments:Quit august 2023 Alcohol Use Standard Drinks/Week Comments Not Currently 0 (1 standard drink = 0.6 oz pur e alcohol) [facility] Utilities Answer Date Recorded In the past 12 months has e [employer], gas, oil, or water [employer] threatened to shut off services in your [...] time in the past 12 m [facility], were you homeless or living in a skilled nursing (including now)? No 09/23/2023 Sex and Gender [...] internal fixation device of vertebrae, initial encounter ([facility]) [T84.216A] Principal Problem: Chronic pain disorder [...] in november.* naloxone (NARCAN) 4 mg/actuation Nasal [place] Administer one dose (4 mg) into nostril [...] re-establish your bowel program. You may take bfny-lco-lzpczpl stool medications as directed by the package [...] your pain clinic. FOLLOW-UP: She should see [facility] for first recheck in 2-4 weeks. Call for appointment if one not already in place. [phone] Sawyer [phone] Total time spent for discharge on date of discharge: 20 minutes. Vladimir Paez PA-C [facility] documented in this encounter [...] 3 09/25/2023 naloxone (NARCAN) 4 mg/actuation Nasal [place] Administer one dose (4 mg) into nostril [...] - 09/25/2023 11:02 AM CDT Ramona Benavides [place] [id number] P: Discharge A: Discharged ambulatory to home [...] with metformin, chronic lower back pain on PROGRAM PRODUCTION SPECIALIST narcotics, hyperlipidemia managed with Zocor who had [...] exploring L3-4 Fusion and replacement of rods L3-K6lmfwv Routine postop cares including DVT prophylaxis pain management, drain management,ambulation per NSGYteam T2DM On PROGRAM PRODUCTION SPECIALIST metformin. Hold for now Very low-dose SSI with hypoglycemia protocol Regular diet at patient request Depression Resume PROGRAM PRODUCTION SPECIALIST Wellbutrin and Cymbalta Chronic pain syndrome 2/2 LBP On PROGRAM PRODUCTION SPECIALIST opoid including Cymbalta. Primary team/NSGY managing pain [...] hours 20 mL/24 hours Vladimir Paez PA-C [facility] * Waqas Rodriguez RN [...] with metformin, chronic lower back pain on PROGRAM PRODUCTION SPECIALIST narcotics, hyperlipidemia managed with Zocor who had [...] exploring L3-4 Fusion and replacement of rods L3-Q1qanqy Routine postop cares including DVT prophylaxis pain management, drain management,ambulation per NSGYteam T2DM On PROGRAM PRODUCTION SPECIALIST metformin. Hold for now Very low-dose SSI with hypoglycemia protocol Regular diet at patient request Depression Resume PROGRAM PRODUCTION SPECIALIST Wellbutrin and Cymbalta Chronic pain syndrome 2/2 LBP On PROGRAM PRODUCTION SPECIALIST opoid including Cymbalta. Primary team/NSGY managing pain [...] for: POTASSIUM, SODIUM, WBC Fabiola Zavala PA-C [facility] * Soco Paez RN [...] to call for help, name of assigned care professionals, PatientInformation booklet, initial physician orders, hourly rounding [...] DM II, chronic lower back pain on PROGRAM PRODUCTION SPECIALIST narcotics, HLD Patient Seen In: Room Family/Caregiver [...] most limited by worsening pain limiting progression [facility] AM-PAC 6-Clicks Turning over in bed (including [...] CONSULT NOTE Patient Name: Ramona Sanders Address: [address] [place] [address] [place] [address] Age:62 y.o. Sex: female Admission Date/Time: 09/23/2023 [...] with metformin, chronic lower back pain on PROGRAM PRODUCTION SPECIALIST narcotics, hyperlipidemia managed with Zocor. At bedside [...] Other Skin irritation around eyes Baclofen Nausea Blwwsrlvyifh-Pvgpmqg-Zpdhfiq Compazine [Prochlorperazine] Other Tongue in and out [...] with metformin, chronic lower back pain on PROGRAM PRODUCTION SPECIALIST narcotics, hyperlipidemia managed with Zocor. Principal Problem: Chronic pain disorder S/p bilateral removal of hardware L2-Pelvis and exploring L3-4 Fusion and replacement of rods L3-F6uyfwp Routine postop cares including DVT prophylaxis pain management, ambulation per NSGYteam T2DM On PROGRAM PRODUCTION SPECIALIST metformin. Hold for now Very low-dose SSI with hypoglycemia protocol Depression Resume PROGRAM PRODUCTION SPECIALIST Wellbutrin and Cymbalta Chronic pain syndrome 2/2 LBP On PROGRAM PRODUCTION SPECIALIST opoid including Cymbalta. Primary team/NSGY managing pain [...] Outcome: Met this shift Flowsheets (Taken 09/24/2023 1214) Environmental Safety Interventions: Standard Interventions in Place [...] internal fixation device of vertebrae, initial encounter ([facility]) [T84.216A] Chronic pain disorder [G89.4] Admitted from: Home Prior: Living Arrangements: Spouse/significant other Jerry Hughesdith (UNIQUE) [phone] (M) Support Systems: Spouse/significant other Primary decision [...] management will continue to follow. NICOLAS Dewey, CONSTRUCTION QUALITY CONTROL MANAGER 3:23 PM, 09/24/2023 P: [phone] F: [phone] * Anjali Mclean RN - 09/24/2023 10:32 [...] Pt smiling, declining tylenol and oxy. When customs entry writer returnedto bed pt crying and stating she has moderated pain. Hitting the pillow with her arm. I just have awave of pain. Pt given iv pain meds. Agitated screaming out, putting pillow over head. Offered meds, pt doesn't answer. Pt then stated she was worried about her SO, what he wsa going to eat because she usually cooks for him. Safety Fire Boss spoke with Dr Albert will give tylenol [...] 09/23/2023 8:32 AM CDT Ramona Sanders [id number] DATE OF OPERATIVE PROCEDURE: 09/23/2023 PROCEDURE Removal [...] the recovery room bed in satisfactory condition. [facility] provided assistance with preoperative positioning, prepping, and draping of the patient. The oncology physician assistant provided vital operative assistance with retraction using instruments best providing the necessary exposure and visualization for the case, manipulation of tissues to achieve hemostasis, suction for visualization and assisted in wound closure. The oncology physician assistant also helped place instrumentation under direct visualization of the surgeon. Postoperatively they assisted in the transfer of the patient off of the operative table and transition into the post anesthesia care unit with hester sition of care being made to the anesthesiologist. Brock Sawyer MD SPINE SURGEON/ [facility] documented in this encounter Plan of Treatment [...] - 100 mg/dL 09/25/2023 11:36 AM CDT [facility] Blood 09/25/2023 7:53 AM CDT 09/25/2023 11:36 AM CDT Brock Sawyer MD LAB POINT OF CARE TEST RESULTS [facility] [address] [address] * XR [facility] SPINE (09/23/2023 9:14 AM [...] (New Bag - Provider: Nay Zamudio APRN, BOX PRESS OPERATOR) dicyclomine (BentyL) tablet 20 mg 20 mg, [...] (New Bag - Provider: Nay Zamudio, VERNON, BOX PRESS OPERATOR) PRN Medication Order 09/23/2023 09/24/2023 09/25/2023 saline [...] Provider: Santa Crandall RN)1800 (Given - Provider: iMchelle Schwartz RN)2117 (Given - Provider: Soco Paez [...] area documented in this encounter Care Teams Yarn Finisher Relationship Specialty Start Date End Date [facility] [place] [address] [address] PCP - Primary Care Clinic 09/18/22 [place] [address] [place] [address] PCP - General 05/20/23 documented as of this encounter
--- OUTSIDE RECORDS SUMMARY | 2023-12-04 03:30 | XMS_ITS | Encounter Summary ---
Author Organization [facility] Address [address] [place] [address] Care Team Providers Care Stringing Machine Operator Name Role Phone [facility]- Unava ilable Hayes Mcelroy MD Primary Care Provider [phone] Reason for Visit * Reason Comments Follow up Recheck: Lumbar Encounter Details Date Type Department Care Team (Late st Contact Info) Description 09/04/2023 9:30 AM CDT Office Visit [facility]) [address] [facility] [address] [place] [address] Brock Sawyer MD [address] [facility] [address] [place] [address] Pain due to internal orthopedic prosthetic devices, implants and grafts, initial encounter (HCC) (Primary Dx); Breakdown (mechanical) of internal fixation device of vertebrae, initial encounter (HCC) Social History Tobacco Use Types Packs/Day Years Used Date Smoking Tobacco: Former Cigarettes Smokeless Tobacco: Never [facility] Utilities Answer Date Recorded In [...] any time in the past 12 m [facility], were you homeless or living in [...] test/procedure), please call Dr. Sawyer's Care Team [phone]. documented in this encounter Progress Notes * [...] be no expectation for those to give termination clerk benefit. 2. A very comprehensive discussion was done with this patient in discussing surgical intervention and the gravity of this type of intervention. A shared decision-making approach was utilized. 3. Patient was specifically instructed on pre-operative and scheduling protocol and was given the appropriate contact information for the machine tool technology instructor and the general information line. RISKS: Lumbar [...] and complete. Brock Sawyer MD SPINE SURGEON/ [facility] * Katelyn Jaramillo - 09/04/2023 9:30 [...] Rayus 08/18/23 Injections: (R) L4-5 HWR Location: [facility] 05/06/23 Relief: None Physical Therapy: [...] (HCC) documented in this encounter Care Teams Stringing Machine Operator Relationship Specialty Start Date End Date [facility]- [address] [place] [address] PCP - Primary Care Clinic 09/18/22 [place] [address] [place] [address] PCP - General 05/20/23 documented as of this encounter"
--- OUTSIDE RECORDS SUMMARY | 2023-12-04 03:30 | XMS_ITS | Continuity of Care Document ---
Author Organization [facility] Address [address] [place] [address] Care Team Providers Care Hand Former Helper Name Role Phone Rodolfo Long CRNA Unavailable Unavaila ble Procedures Procedure Date ANESTH, NERVE BLOCK/INJ Percutaneous Image guided destruction pr ocedures B ANESTH, NERVE BLOCK/INJ Advance Directives Directive Yes / No Effective Date File Name No Information Encounters Encounter Description Practice Location Reason(s) For Visit Diagnoses Date Provider Providers Copied on Encounter [facility], [address] [place], [place], [id number], [facility] No Information Ethan Reynolds. [address] [place], [id number], . tel:[phone] Referring Provider: Divina Deras, [address] [place], [place] [address] [place], [address] . tel:[phone] [facility], [address] [place], [place], [id number], [facility] No Information Devang Lockwood. [address], [facility], [place], [place], [id number], . tel:[phone] Referring Provider: Divina Deras, [address] [facility] [place], [address] . tel:[phone] [facility], [address] [place], [place], [id number], [facility] No Information Cy Campos. [address] [facility], [facility] [place], [place], [place], [id number], . tel:[phone] Referring Provider: Divina Deras, [address] [facility] [place], [address] . tel:[phone] Family History Family Member Type Diagnosis Age [...]
--- OUTSIDE RECORDS SUMMARY | 2023-12-04 03:30 | XMS_ITS | Encounter Summary ---
Author Organization [facility] Address [address] [place] [address] Care Team Providers Care Professional Housing Consultant Name Role Phone [facility] [place]- Unava ilable Hayes Mcelroy MD Primary Care Provider [phone] Reason for Visit * Inpatient Admission (Routine) Specialty Diagnoses / Procedures Referred By Contac t Referred To Contact Diagnoses Pain due to bilateral hip joint prostheses, initial encounter (HCC) Mechanical breakdown of internal fixation device of vertebrae, initial encounter ([facility]) Pain due to bilateral hip joint prostheses, initial encounter [T84.84XA, Z96.643] Mechanical breakdown of internal fixation device of vertebrae, initial encounter ([facility]) [T84.216A] Procedures REMOVE SPINE FIX DEV,POST SGM* BILATERAL HARDWARE REMOVAL L2- PELIVS WITH EXPLORATION OF L3-4 FUSION Referral ID Status Reason Start Date Expiration Date Visits Re quested Visits Authorized [id number] 1 1 Encounter Details Date Type Department Care Team (Late st Contact Info) Description 09/23/2023 8:00 AM CDT - 09/23/2023 9:35 AM CDT Surgery [facility] Operating Room [address] [facility] [place] [address] Brock Sawyer MD [address] [place] [address] [place] [address] BILATERAL HARDWARE REMOVAL L2- PELIVS WITH [...] drink = 0.6 oz pur e alcohol) [facility] Utilities Answer Date Recorded In [...] were you homeless or living in a fci (including now)? No 09/23/2023 Sex and Gender [...] internal fixation device of vertebrae, initial encounter ([facility]) [T84.216A] Principal Problem: Chronic pain [...] in november.* naloxone (NARCAN) 4 mg/actuation Nasal Dovray Administer one dose (4 mg) into nostril [...] Do not take tub baths until ganesh orsutures are removed. Discharge Instructions DRIVING: You may [...] re-establish your bowel program. You may take krnc-bkd-belcsjn stool medications as directed by the package [...] your pain clinic. FOLLOW-UP: She should see [facility] for first recheck in 2-4 weeks. Call for appointment if one not already in place. [phone] Sawyer [phone] Total time spent for discharge on date of discharge: 20 minutes. Vladimir Paez PA-C [facility] [place] documented in this encounter [...] 3 09/25/2023 naloxone (NARCAN) 4 mg/actuation Nasal Dovray Administer one dose (4 mg) into nostril [...] 11:02 AM CDT Ramona Benavides Marilyn 1960 [id number] P: Discharge A: Discharged ambulatory to home [...] with metformin, chronic lower back pain on SYSTEMS TEST ENGINEER narcotics, hyperlipidemia managed with Zocor who had [...] exploring L3-4 Fusion and replacement of rods L3-R1cmfcf Routine postop cares including DVT prophylaxis pain management, drain management,ambulation per NSGYteam T2DM On SYSTEMS TEST ENGINEER metformin. Hold for now Very low-dose SSI with hypoglycemia protocol Regular diet at patient request Depression Resume SYSTEMS TEST ENGINEER Wellbutrin and Cymbalta Chronic pain syndrome 2/2 LBP On SYSTEMS TEST ENGINEER opoid including Cymbalta. Primary team/NSGY managing pain [...] hours 20 mL/24 hours Vladimir Paez PA-C [facility] * Waqas Rodriguez RN [...] with metformin, chronic lower back pain on SYSTEMS TEST ENGINEER narcotics, hyperlipidemia managed with Zocor who had [...] exploring L3-4 Fusion and replacement of rods L3-S5typix Routine postop cares including DVT prophylaxis pain management, drain management,ambulation per NSGYteam T2DM On SYSTEMS TEST ENGINEER metformin. Hold for now Very low-dose SSI with hypoglycemia protocol Regular diet at patient request Depression Resume SYSTEMS TEST ENGINEER Wellbutrin and Cymbalta Chronic pain syndrome 2/2 LBP On SYSTEMS TEST ENGINEER opoid including Cymbalta. Primary team/NSGY managing pain [...] for: POTASSIUM, SODIUM, WBC Fabiola Zavala PA-C [facility] * Soco Paez RN [...] to call for help, name of assigned vehicle care specialist, PatientInformation booklet, initial physician orders, [...] DM II, chronic lower back pain on SYSTEMS TEST ENGINEER narcotics, HLD Patient Seen In: Room Family/Caregiver [...] most limited by worsening pain limiting progression [facility] AM-PAC 6-Clicks Turning over in bed (including [...] CONSULT NOTE Patient Name: Ramona Sanders Address: [address] [place] [address] [place] [address] Age:62 y.o. Sex: female Admission Date/Time: 09/23/2023 5:55 AM Requesting Physician: Brock Sawyer MD [facility] Attending Physician: Brock Sawyer MD I was [...] with metformin, chronic lower back pain on SYSTEMS TEST ENGINEER narcotics, hyperlipidemia managed with Zocor. At bedside [...] Other Skin irritation around eyes Baclofen Nausea Reeqizrwbqoi-Azkmems-Xnmagex Compazine [Prochlorperazine] Other Tongue in and out [...] with metformin, chronic lower back pain on SYSTEMS TEST ENGINEER narcotics, hyperlipidemia managed with Zocor. Principal Problem: Chronic pain disorder S/p bilateral removal of hardware L2-Pelvis and exploring L3-4 Fusion and replacement of rods L3-O9jqvmd Routine postop cares including DVT prophylaxis pain management, ambulation per NSGYteam T2DM On SYSTEMS TEST ENGINEER metformin. Hold for now Very low-dose SSI with hypoglycemia protocol Depression Resume SYSTEMS TEST ENGINEER Wellbutrin and Cymbalta Chronic pain syndrome 2/2 LBP On SYSTEMS TEST ENGINEER opoid including Cymbalta. Primary team/NSGY managing pain [...] Outcome: Met this shift Flowsheets (Taken 09/24/2023 3604) Environmental Safety Interventions: Standard Interventions in Place [...] internal fixation device of vertebrae, initial encounter ([facility]) [T84.216A] Chronic pain disorder [G89.4] Admitted from: Home Prior: Living Arrangements: Spouse/significant other Jerry Caruso (SIGO) [phone] (M) Support Systems: Spouse/significant other Primary decision [...] transport. Care management will continue to follow. Della Pacheco, NICOLAS, NEONATAL NURSE PRACTITIONER 3:23 PM, 09/24/2023 P: [phone] F: [phone] * Anjali Mclean RN - 09/24/2023 10:32 [...] Pt smiling, declining tylenol and oxy. When service writer returnedto bed pt crying and stating she has moderated pain. Hitting the pillow with her arm. I just have awave of pain. Pt given iv pain meds. Agitated screaming out, putting pillow over head. Offered meds, pt doesn't answer. Pt then stated she was worried about her SO, what he wsa going to eat because she usually cooks for him. Golf Range Attendant spoke with Dr Albert will give tylenol [...] 09/23/2023 8:32 AM CDT Ramona Sanders [id number] DATE OF OPERATIVE PROCEDURE: 09/23/2023 PROCEDURE Removal [...] the recovery room bed in satisfactory condition. [facility] PAC provided assistance with preoperative positioning, prepping, and draping of the patient. The technical staff assistant provided vital operative assistance with retraction using instruments best providing the necessary exposure and visualization for the case, manipulation of tissues to achieve hemostasis, suction for visualization and assisted in wound closure. The technical staff assistant also helped place instrumentation under direct visualization of the surgeon. Postoperatively they assisted in the transfer of the patient off of the operative table and transition into the post anesthesia care unit with hester sition of care being made to the anesthesiologist. Brock Sawyer MD SPINE SURGEON/ [facility] [place] [facility] documented in this encounter Plan of [...] of10 resultswithin the time period is included. [facility] Signature GLUCOSE WB METER 127(H) 60 - 100 mg/dL 09/25/2023 11:36 AM CDT [facility] Blood 09/25/2023 7:53 AM CDT 09/25/2023 11:36 AM CDT Brock Sawyer MD LAB POINT OF CARE TEST RESULTS [facility] [address] [address] 169 * XR C-ARM SPINE (09/23/2023 9:14 AM [...] initial encounter (HCC) documented in this encounter Admitting Diagnoses Diagnosis [...] (New Bag - Provider: Nay Zamudio APRN, ADMISSION DISCHARGE RN) dicyclomine (BentyL) tablet 20 mg 20 mg, [...] JENNA)1999 (Given - Provider: Soco Paez RN) 804 (Given - Provider: Anjali Mclean, JENNA)1931 (Given - Provider: Sole Aguilera, JENNA) 805 (Given - Provider: Rika Lake, JENNA) DULoxetine (CYMBALTA) delayed release capsule 120 mg 120 mg, oral, DAILY, First dose on Fri09/24/23 at 0800, Until Discontinued 803 (Given - Provider: Anjali Mclean RN) 804 (Given - Provider: Rika aLke, JENNA) gabapentin (NEURONTIN) capsule 600 mg (COMPLETED) [...] Soco Paez RN)1311 (Given - Provider: Anjali Mclean RN)220 (Given - Provider: Sole Aguilera, JENNA) 0623 (Given - Provider: Waqas Rodriguez RN) [...] 0814 (New Bag - Provider: Nay Zamudio, CERTIFIED HYPERBARIC TECHNOLOGIST, [facility]) PRN Medication Order 09/23/2023 09/24/2023 [...] 09/25/23 at 1744, Post-Op, nausea & vomiting ondansetron [...] area documented in this encounter Care Teams Professional Housing Consultant Relationship Specialty Start Date End Date [facility] [place] [address], [place] [address] PCP - Primary Care Clinic 09/18/22 [place] [address] [place] [address] PCP - General 05/20/23 documented as of this encounter
--- OUTSIDE RECORDS SUMMARY | 2023-12-04 03:30 | XMS_ITS | Encounter Summary ---
Author Organization [facility] Address [address] [place] [address] [place] [address] Care Team Providers Care Pulley Maintainer Name Role Phone [facility]- Unava ilable Hayes Mcelroy MD Primary Care Provider [phone] Encounter Details Date Type Department Care Team (Latest Contact Info) Description 09/22/2023 Travel Social History Tobacco Use Types Packs/Day Years Used Date Smoking Tobacco: Former Cigarettes Smokeless Tobacco: Never Comments:Quit august 2023 Alcohol Use Standard Drinks/Week Comments Not Currently 0 (1 standard drink = 0.6 oz pur e alcohol) [facility] Utilities Answer Date Recorded In the [...] any time in the past 12 m [facility], were you homeless or living in a senior living (including now)? No 09/23/2023 Sex and Gender Information Value Date Recorded Sex Assigned at Not on file Gender Identity Not on file Sexual Orientation Not on file documented as of this encounter Plan of Treatment Not on file documented as of this encounter Visit Diagnoses Not on filedocumented in this encounter Care Teams Pulley Maintainer Relationship Specialty Start Date End Date [facility]- [address] [place] [address] PCP - Primary Care Clinic 09/18/22 [place] [address] [place] [address] PCP - General 05/20/23 documented as of this encounter
--- OUTSIDE RECORDS SUMMARY | 2023-12-04 03:30 | XMS_ITS | Encounter Summary ---
Author Organization [facility] Address [address] [place] [address] Care Team Providers Care Tongue And Quarter Stitcher Name Role Phone [facility]- Unava ilable Hayes Mcelroy MD Primary Care Provider [phone] Reason for Referral * (Routine) - Open Specialty Diagnoses / Procedures Referred By Contac t Referred To Contact Diagnoses Postoperative state S/P lumbar fusion Lumbar spine pain Procedures XR SPINE LUMBAR ROUTINE Jg Ivory PA-C [address] [address] Referral ID Status Reason Start Date Expiration Date Visits Re quested Visits Authorized [id number] Open 2023 1 1 Reason for Visit * Reason Comments Post op check Post op: 09/23/23 Philippe ateral RHW L2-Pelvis, with exploration of L3-4 fusion and replacement of rods L3-4 (SMS) Encounter Details Date Type Department Care Team (Latest Contact Info) Description 10/28/2023 9:15 AM CDT Office Visit [facility] [place] [facility]) [address] [place] [address] Jg Ivory PA-C [address] [facility] [address] [place], [place] [id number] Postoperative state (Primary Dx); S/P lumbar fusion; Lumbar spine pain Social History Tobacco Use Types Packs/Day Years Used Date Smoking Tobacco: Former Cigarettes Smokeless Tobacco: Never Tobacco Cessation:Counseling Given: Not Answered Comments:Quit august 2023 Alcohol Use Standard Drinks/Week Comments Not Currently 0 (1 standard drink = 0.6 oz pur e alcohol) [facility] Utilities Answer Date Recorded In [...] any time in the past 12 m [facility], were you homeless or living in a [...] included. Ramona Sanders 62F Refine SearchContact the [place] Date of : 1960 Recent Address: [address] [place] [address] [place] [id number] Status of States Queried: View Details View Linked Records (2) Other Tools/Metrics Report Criteria First Name: Ramona Last Name: Marilyn : 1960 Linked Records ? Name: Ramona Sanders : 1960 ID: [id number] Gender: Female Address: [address] [place] [address] [place] [address] Name: Ramona Sanders : 1960 ID: [id number] Gender: Female Address: [address] [place] [address] [place] [address] Report generated on 10/27/2023. Report Date Range: [...] How should I use this information? ABOVE [id number] NARX SCORES NARCOTICS 540 ACTIVE RX 1 [...] # Dispenser Refill Daily Dose* Pymt Type BATH STEWARD/STEWARDESS 09/27/2023 09/25/2023 09/27/2023 1 Oxycontin Er 20 Mg Tablet 90.00 30 Ca Van [id number] Sup (6706) 0/090.00 [place] 09/26/2023 09/25/2023 09/26/2023 1 Oxycodone Hcl (Ir) 15 Mg Tab 60.00 30 Ca Van [id number] Sup (6706) 0/0 45.00 [place] 09/26/2023 09/25/2023 09/26/2023 1 Oxycodone Hcl (Ir) 10 Mg Tab 90.00 30 Ca Van [id number] Sup (6706) 0/0 45.00 [place] 09/25/2023 09/25/2023 2 Hydromorphone 4 Mg Tablet 40.00 7 [facility] [id number] Nor (1997) 0/0 114.29 [place] 09/25/2023 09/25/2023 2 Oxycontin Er 20 Mg Tablet 10.00 4 [facility] [id number] Nor (1997) 0/0 75.00 [place] 08/29/2023 08/29/2023 08/29/2023 1 Oxycontin Er 20 Mg Tablet 90.00 30 Ca Van [id number] Sup (6706) 0/090.00 [place] 08/29/2023 08/29/2023 08/29/2023 1 Oxycodone Hcl (Ir) 10 Mg Tab 90.00 30 Ca Van [id number] Sup (6706) 0/0 45.00 [place] 08/29/2023 08/29/2023 08/29/2023 1 Oxycodone Hcl (Ir) 15 Mg Tab 60.00 30 Ca Van 7860420 Sup (6706) 0/0 45.00 [place] 08/20/2023 08/20/2023 08/24/2023 1 Lorazepam 1 Mg Tablet 90.00 30 Pe Buc [id number] Sup (6706) 0/0 3.00 [place] 07/30/2023 07/30/2023 07/30/2023 1 Oxycontin Er 20 Mg Tablet 90.00 30 Ca Van [id number] Sup (6706) 0/090.00 [place] 07/30/2023 07/30/2023 07/30/2023 1 Oxycodone Hcl (Ir) 10 Mg Tab 90.00 30 Ca Van [id number] Sup (6706) 0/0 45.00 [place] 07/30/2023 07/30/2023 07/30/2023 1 Oxycodone Hcl (Ir) 15 Mg Tab 60.00 30 Ca Van [id number] Sup (6706) 0/0 45.00 [place] 07/02/2023 07/02/2023 07/02/2023 1 Oxycodone Hcl (Ir) 15 Mg Tab 60.00 30 Ca Van 1620701 Sup (2246) 0/0 45.00 [place] 07/02/2023 07/02/2023 07/02/2023 1 Oxycodone Hcl (Ir) 10 Mg Tab 90.00 30 Ca Van [id number] Sup (6706) 0/0 45.00 [place] 07/02/2023 07/02/2023 07/02/2023 1 Oxycontin Er 20 Mg Tablet 90.00 30 Ca Van [id number] Sup (2606) 0/090.00 [place] Providers Total: 4 Showing 1-4 of 4 Items View 1 of [address] [facility] Zipcode Phone Cate Thomas [address] [place] [facility] [address] Kiara Álvarez, MSN [address] [place] [address] Tasha Hendrickson [address] [place] [address] Vladimir Paez [address] [facility] [address] [facility] [address] Showing 1-4 of 4 Items View 1 of 1 Pharmacies Total: 2 Showing 1-2 of 2 Items View 1 of [address] [facility] Zipcode Phone [phone] [address] [facility] ([facility]) [address] [place] [address] As a proxy delegate, I have [...] Lumbago documented in this encounter Care Teams Tongue And Quarter Stitcher Relationship Specialty Start Date End Date [facility] [place] [address], [place] [address] PCP - Primary Care Clinic 09/18/22 [place] [address] [place] [address] PCP - General 05/20/23 documented as of this encounter
--- OUTSIDE RECORDS SUMMARY | 2023-12-04 03:30 | XMS_ITS | Clinical Summary ---
Author Organization [facility] Address [place], [place] [address] Care Team Providers Care Cadd Operator Name Role Phone Hayes Mcelroy MD Primary Care Provider [phone] Allergies Active Allergy Reactions Criticality Noted Date [...] Description 10/16/2023 11:30 AM CDT Ancillary Procedure [facility] [address] [place] [address] 10/16/2023 11:15 AM CDT Ancillary Procedure [facility] [address] [place] [address] 10/16/[address] [facility] [address] [place] [address] Greg Tyson PA <No scans attached> from [...] Comments Blood Pressure 105/55 01/17/2022 9:09 AM MINER Pulse 71 01/17/2022 11:25 AM MINER Temperature 36.8 ??C (98.3 ??F) 01/17/2022 9:09 AM CS T Respiratory Rate 16 01/17/2022 11:25 AM MINER Oxygen Saturation 91% 01/17/2022 11:25 AM MINER Inhaled Oxygen Concentration - - Weight 72.6 kg (160 lb) 04/11/2022 9:58 AM MINER Height 175.3 cm (5' 9) 04/11/2022 9:58 AM MINER Body Mass Index 23.63 04/11/2022 9:58 AM MINER Plan of Treatment Health Maintenance Due Date [...] history exists Medical Devices Implanted Type Area Java Oracle Developer Device Identifier Shelf Expiration Date Model / Serial / Lot Bone Matrix 10cc Progenix Plusputty Dbm - [id number] Implanted:Qty : 1 on 12/01/2019 by Brock Sawyer MD at [facility] N/A: Lumbar Vertebrae Medtronic Spine/Ortho 06/15/2021 [id number]# / / [id number] Spacer Lmbr 9-39m00gk 11deg Elevate Extra-Lordoti c Peek Titn - [id number] Implanted:Qty : 1 on 12/01/2019 by Brock Sawyer MD at [facility] N/A: Lumbar Vertebrae Medtronic Spine/Ortho 09/15/2027 [id number]# / / [id number] Screw Lmbr Post 6.5x50mm Solera 5.5/6 Va Cocr - [id number] Implanted:Qty : 4 on 12/01/2019 by Brock Sawyer MD at [facility] N/A: Lumbar Vertebrae Medtronic Spine/Ortho [id number] / / 5.5 X 500mm Cc Beltran Implanted:Qty : 1 on 12/01/2019 by Brock Sawyer MD at [facility] N/A: Lumbar Vertebrae Medtronic Spine/Ortho [id number] / / Bone 1-4mm 90cc Medtronic Chips Canclls Freeze Dried - [id number] Implanted:Qty : 1 on 12/01/2019 by Brock Sawyer MD at [facility] N/A: Lumbar Vertebrae Medtronic Spine/Ortho 04/24/2024 [id number]# / / [id number]: [id number] Bone Matrix Md Infuse Bmp - [id number] Implanted:Qty : 1 on 12/01/2019 by Brock Sawyer MD at [facility] N/A: Lumbar Vertebrae Medtronic Spine/Ortho 11/09/2021 [id number]# / / [id number] Bone 1-4mm 30cc Medtronic Chips Canclls Freeze Dried - [id number] Implanted:Qty : 1 on 12/01/2019 by Brock Sawyer MD at [facility] N/A: Lumbar Vertebrae Medtronic Spine/Ortho 05/31/2024 [id number]# / / [id number]: [id number] Spacer Lmbr 11-24k92ck 12deg Elevate Extra-Lordoti c Peek Tit - [id number] Implanted:Qty : 1 on 12/01/2019 by Brock Sawyer MD at [facility] N/A: Lumbar Vertebrae Medtronic Spine/Ortho 05/31/2027 [id number]# / / [id number] Bone Matrix 10cc Progenix Putty Dbm - [id number] Implanted:Qty : 1 on 12/01/2019 by Brock Sawyer MD at [facility] N/A: Lumbar Vertebrae Medtronic Spine/Ortho 01/15/2021 [id number]# / / [id number] Set Screw Lmbr Ant 5.5mm Solera Break Off - [id number] Implanted:Qty : 10 on 12/01/2019 by Brock Sawyer MD at [facility] Explanted:Qty : 1 on 06/27/2020 by Brock Sawyer MD at [facility] N/A: Lumbar Vertebrae Medtronic Spine/Ortho [id number]# / / Vitoss 1.2cc [id number] - [id number] Implanted:Qty : 1 on 01/17/2021 by Brock Sawyer MD at [facility] N/A: Cervical Vertebrae [place] Spine 05/07/2021 7620-9021 / / [id number] Anterior Cervical Cage 7mm X 12mm X 14mm [id number] - [id number] Implanted:Qty : 1 on 01/17/2021 by Brock Sawyer MD at [facility] N/A: Cervical Vertebrae [place] Spine 01/25/2023 [id number] / / [id number] Charles Mix View Plates 22mm [id number] - [id number] Implanted:Qty : 1 on 01/17/2021 by Brock Sawyer MD at [facility] N/A: Cervical Vertebrae [place] Spine [id number] / / Charles Mix View Self-Starting Variable Screw 4.0x14mm [id number] - [id number] Implanted:Qty : 3 on 01/17/2021 by Brock Sawyer MD at [facility] N/A: Cervical Vertebrae Bri Spine [id number] / / Charles Mix View Self-Starting Variable Screw 4.5x14mm [id number] - [id number] Implanted:Qty : 1 on 01/17/2021 by Brock Sawyer MD at [facility] N/A: Cervical Vertebrae [id number] / / Vitoss Bimodal Implanted:Qty : 1 on 08/21/2021 by Brock Sawyer MD at [facility] N/A: Cervical Vertebrae [place] Spine 05/07/2022 5280-8648 / / [id number] Bone Matrix 5cc Stimulan Kit Rapid Cure - [id number] Implanted:Qty : 1 on 08/21/2021 by Brokc Sawyer MD at [facility] N/A: Cervical Vertebrae Biocomposites Inc 09/10/2023 620-005 / / [id number] 3.5 X 12mm Burlison Oct Polyaxial Screw Implanted:Qty : 3 on 08/21/2021 by Brock Sawyer MD at [facility] N/A: Cervical Vertebrae K[employer]M Group [employer] Inc [id number] / / 34.0 X 12mm Burlison Oct Polyaxial Screw Implanted:Qty : 1 on 08/21/2021 by Brock Sawyer MD at [facility] N/A: Cervical Vertebrae K2M Group Holdings Inc 6680-26139 / / Set Screw Implanted:Qty : 4 on 08/21/2021 by Brock Sawyer MD at [facility] N/A: Cervical Vertebrae K2M [employer] Holdings Inc [id number] / / Contoured Rods4.0 X 25mm Implanted:Qty : 2 on 08/21/2021 by Brock Sawyer MD at [facility] N/A: Cervical Vertebrae K2M Group Combinature Biopharms Inc [id number] / / Bone Matrix Sm Infuse Bmp - [id number] Implanted:Qty : 1 on 01/16/2022 by Brock Sawyer MD at [facility] Lumbar Vertebrae Medtronic Spine/Ortho 02/10/2024 [id number] / / [id number] Bone Matrix 5cc Progenix Plus Putty Dbm - [id number] Implanted:Qty : 1 on 01/16/2022 by Brock Sawyer MD at [facility] Spine Medtronic Spine/Ortho 05/02/2023 [id number] / [id number] / Bone 1-4mm 15cc Medtronic Chips Canclls Freeze Dried - [id number] Implanted:Qty : 1 on 01/16/2022 by Brock Sawyer MD at [facility] Spine Medtronic Spine/Ortho 12/04/2025 195799 / [id number] / [id number] Implant 16mm Implanted:Qty : 1 on 01/16/2022 by Brock Sawyer MD at [facility] Spine Medtronic Spine/Ortho 07/05/2025 8468-1232-[id number] / / [id number] Tas Bone Screw Implanted:Qty : 1 on 01/16/2022 by Brock Sawyer MD at [facility] Spine Medtronic Spine/Ortho 8524-2176 / / Divergence Screws Implanted:Qty : 4 on 01/16/2022 by Brock Sawyer MD at [facility] Spine Medtronic Spine/Ortho [id number] / / Divergence 18mm Plate Implanted:Qty : 1 on 01/16/2022 by Brock Sawyer MD at [facility] Spine Medtronic Spine/Ortho [id number] / / Explanted Type Area Java Oracle Developer Device Identifier Shelf Expiration Date Model / Serial / Lot Burgaw Creativity Software Precision Spinal Cord Stimulator Explanted:Qty: 1 on 12/01/2019 by Brock Sawyer MD at [facility] N/A: Lumbar Vertebrae Burgaw Scientific / [id number] / Description:Battery and lead s explanted IPG model SC-1110 Bone Growth Stimulator Explanted:Qty: 1 on 12/01/2019 by Brock Sawyer MD at [facility] N/A: Lumbar Vertebrae Description:SpF-PLUS CLAUDIA [id number] Battery and leads explanted 100mm 5.5 Ti Beltran Explanted:Qty: 2 on 12/01/2019 by Brock Sawyer MD at [facility] N/A: Lumbar Vertebrae Set Screws Solera Explanted:Qty: 6 on 12/01/2019 by Brock Sawyer MD at [facility] N/A: Lumbar Vertebrae Medtronic Spine/Ortho Screw Sm Joint 4.5x20mm Axsos Raymundo [facility] - [id number] Explanted:Qty: 4 on 12/01/2019 by Brock Sawyer MD at [facility] N/A: Lumbar Vertebrae Bri Orthopaedics [id number]# / / 8.5 X 70 Mm Ballast Screw Explanted:Qty: 1 on 06/27/2020 by Brock Sawyer MD at [facility] Right: Lumbar Vertebrae Medtronic Procedures Procedure Name [...] 16 Negative Negative 11/27/2022 11:43 AM CDT [facility] TYPE 18 Negative Negative 11/27/2022 11:43 AM CDT [facility] OTHER HIGH RISK TYPES Positive(A) Negative 11/27/2022 11:43 AM CDT [facility] Other (Cervical) 11/21/2022 9:04 AM CDT 11/25/2022 11:50 AM CDT Narrative [facility] - 11/27/2022 11:43 AM CDT Specimen is positive for the DNA of any one of, or combination of, the following high risk HPV types: 31, 33, 35, 39, 45, 51, 52, 56, 58, 59, 66, 68. HPV types 16 and 18 DNA were undetectable or below the pre-set threshold. ? Methodology: Velia Amador 4800 HPV Test Maryuri Rabago PA-C MICROBIOLOGY [facility] [address] [place] [address], * XR FFDM MAMMO SCREENING BILATERAL SSP [...] Computer-Aided Detection. ?? COMPARISON FILMS: Yes 10/07/08 [facility] FINDINGS: ??Mammographically, the breast tissue is heterogeneously [...] of Computer-Aided Detection. COMPARISON FILMS: Yes 10/07/08 [facility] FINDINGS: Mammographically, the breast tissue is heterogeneously [...] Code Status Discussion: Not Discussed Care Teams Cadd Operator Relationship Specialty Start Date End Date Hayes Mcelroy MD PCP - General Family Practice 01/10/17
--- OUTSIDE RECORDS SUMMARY | 2023-12-04 03:30 | XMS_ITS | Clinical Summary ---
Author Organization [place] Address [address] [place] [address] Care Team Providers Care Sole Tier Name Role Phone Tommy Mcelroy MD Primary Care Provider [phone] Allergies Active Allergy Reactions Criticality Noted Date Comments Baclofen 12/23/2012 Diphenhydramine-Zinc Acetate Other (See Comments) 04/24/2011 Makes restless leg symptoms worse. Compazine Anaphylaxis 10/23/2004 Cyclobenzaprine Other (See Comments) 04/24/2011 Makes restless leg symptoms worse. Cyclobenzaprine Hcl 12/23/2012 Methocarbamol Other (See Comments) 04/24/2011 Makes restless leg symptoms worse. Mirtazapine 12/23/2012 Ujtkqxvrbdyw-Dcciawj-Ogzm ine 12/23/2012 Medications pramipexole (MIRAPEX) 0.125 MG tablet Take 0.125 mg by mouth At Bedtime 08/24/19 09 Active dicyclomine (BENTYL) 20 MG tablet Take 20 mg by mouth 3 times daily Active OMEPRAZOLE PO Take 20 mg by mouth every morning Active Probiotic Product (PROBIOTIC DAILY PO) Take 1 capful by mouth daily Active senna-docusate (SENOKOT-S;ISAC LACE) 8.6-50 MG per tabletIndications :Lumbar radiculopathy Take 2 tablets by mouth 2 times daily as needed for constipation 120 tablet 1 03/02/19 15 Active oxyCODONE (OXYCONTIN) 20 MG 12 hr tabletIndications :Lumbar radiculopathy Take 1 tablet (20 mg) by mouth every 8 hours 90 tablet 0 03/07/19 15 Active Additional Information Patient taking differently:20 mg OralEVERY 12 HOURS, Reported on 11/27/2014 OXYCODONE HCL PO Take 10 mg by mouth every 6 hours as needed Active ATENOLOL PO Active ClonazePAM (KLONOPIN PO) Take 5 mg by mouth 2 times daily as needed for anxiety Active CLONIDINE HCL PO Act nathaniel sucralfate (CARAFATE) 1 GM/10ML suspension Take 10 mLs (1 g) by mouth 4 times daily 420 mL 1 11/28/19 15 Active Active Problems Problem Noted Date Diagnosed [...] School Help Needed Not on file 01/08 Comments No Sex and Gender Information Value Date Recorded Sex Assigned at Not on file Legal Sex Female 3:09 AM PUBLISHING SYSTEMS ANALYST Gender Identity Not on file Sexual Orientation Not on file Last Filed Vital Signs Vital Sign Reading Time Taken Comments Blood Pressure 111/70 01/08/2023 1:50 PM PUBLISHING SYSTEMS ANALYST Pulse 73 01/08/2023 1:50 PM PUBLISHING SYSTEMS ANALYST Temperature 36.7 ??C (98 ??F) 01/08/2023 1:50 PM PUBLISHING SYSTEMS ANALYST Respiratory Rate 18 01/08/2023 1:50 PM PUBLISHING SYSTEMS ANALYST Oxygen Saturation 96% 01/08/2023 1:50 PM PUBLISHING SYSTEMS ANALYST Inhaled Oxygen Concentration - - Weight 77.1 [...] this topic Medical Devices Implanted Type Area Information Security Architect Device Identifier Shelf Expiration Date Model / Serial / Lot Graft Bone Foam Pack Vitoss 10ml Bio Active Implanted:Qty: 1 on 05/02/2011 at [facility] N/A: Spine Lumbar 10/04/2012 / / [id number] Iom Supplies Implanted:Qty: 1 on 05/02/2011 at [facility] Cell Saver Standby Implanted:Qty: 1 on 05/02/2011 at [facility] Graft Bone Crush Canc 15ml [id number] Implanted:Qty: 1 on 05/02/2011 at [facility] N/A: Spine Lumbar [id number] / [id number] / 14x12 Align Implanted:Qty: 1 on 05/02/2011 at [facility] N/A: Spine Lumbar [id number] / / [id number] 16x12 Align Implanted:Qty: 1 on 05/02/2011 at [facility] N/A: Spine Lumbar [id number] / / [id number] 25mm Plate Implanted:Qty: 1 on 05/02/2011 at [facility] N/A: Spine Lumbar [id number] / / [id number] 25mm Screw Implanted:Qty: 4 on 05/02/2011 at [facility] N/A: Spine Lumbar [id number] / / [id number] Imp Washer Syn [place] 13.5x5.5mm Implanted:Qty: 2 on 05/02/2011 at [facility] N/A: Spine Lumbar 219.951 / / 0106 [id number] Imp Scr Syn Canc 6.1e450ax Ft Ti Implanted:Qty: 2 on 05/02/2011 at [facility] N/A: Spine Lumbar 418.025 / / [id number] Spf-Plus 60/M Implantable Spinal Fusion Stimulator Implanted:Qty: 1 on 03/02/2014 by Brock Sawyer MD at [facility] N/A: Back BIOMET INC 07/03/2015 10-1398M / [id number] / Graft Bone Foam Pack Vitoss 10ml Bio Active Implanted:Qty: 1 on 03/02/2014 by Brock Sawyer MD at [facility] N/A: Back ORTHOVITA 09/10/2015 / / [id number] Imp Scr Medt 5.5/6.0mm Solera 6.5x45mm Ma [id number] Implanted:Qty: 4 on 03/02/2014 by Brock Sawyer MD at [facility] N/A: Back MEDTRONIC INC [id number] / / [id number] 2014 Imp Scr Medt 5.5/6.0mm Solera 8.5x70mm Ma [id number] Implanted:Qty: 2 on 03/02/2014 by Brock Sawyer MD at [facility] N/A: Back MEDTRONIC INC [id number] / / [id number] 01 MAR 2014 Imp Scr Set Medt Solera Break Off 5.5mm Ti [id number] Implanted:Qty: 6 on 03/02/2014 by Brock Sawyer MD at [facility] N/A: Back MEDTRONIC INC [id number] / / [id number] 01 MAR 2014 Imp Beltran Medt Solera Cvd 5.4r444ny Ti [id number] Implanted:Qty: 2 on 03/02/2014 by Brock Sawyer MD at [facility] N/A: Back MEDTRONIC INC [id number] / / [id number] 02 MAR 2014 Imp Scr Syn Can 4.0x20mm Ft Ss 206.020 Implanted:Qty: 2 on 03/02/2014 by Brock Sawyer MD at [facility] N/A: Back SYNTHES-STRATEC 206.020 / / Impulse Implanted:Qty: 1 on 03/02/2014 by Brock Sawyer MD at [facility] Explanted Type Area Information Security Architect Device Identifier Shelf Expiration Date Model / Serial / Lot Imp Scr Danek Sext Can 6.5x40mm Legacy Ti Implanted:Qty: 2 on 05/02/2011 at [facility] Explanted:Qty: 2 on 03/02/2014 at [facility] N/A: Spine Lumbar [id number] / / [id number] 01MAY2011 Imp Scr Danek Set G4 Internal Hex [id number] Implanted:Qty: 4 on 05/02/2011 at [facility] Explanted:Qty: 4 on 03/02/2014 at [facility] N/A: Spine Lumbar [id number] / / [id number] 01MAY2011 Imp Beltran Danek Sext 60mm Ti [id number] Implanted:Qty: 2 on 05/02/2011 at [facility] Explanted:Qty: 2 on 03/02/2014 at [facility] N/A: Spine Lumbar [id number] / / [id number] 01MAY2011 Imp Scr Danek Sext Can 6.5x45mm Legacy Ti Implanted:Qty: 2 on 05/02/2011 at [facility] Explanted:Qty: 2 on 03/02/2014 at [facility] N/A: Spine Lumbar [id number] / / [id number] 01MAY2011 Description:BILATERAL SCREWS FROM S1, SCREW HEAD REMOVED, SCREW SHAFT REMAINS Procedures Procedure Name Priority Date/Time Associated Diagnosis Comments COMPREHENSIVE METABOLIC PANEL STAT 11/27/2014 4:05 PM CDT from Last 3 Months or Most Recently Relevant to Health Maintenance Results * (ABNORMAL) Comprehensive metabolic panel (11/27/2014 4:05 PM CDT) Sodium 139 133 - 144 mmol/L [facility] Potassium 4.0 3.4 - 5.3 mmol/L [facility] Chloride 105 94 - 109 mmol/L [facility] Carbon Dioxide 27 20 - 32 mmol/L [facility] Anion Gap 7 3 - 14 mmol/L [facility] Glucose 158(H) 70 - 99 mg/dL [facility] Urea Nitrogen 13 7 - 30 mg/dL [facility] Creatinine 0.76 0.52 - 1.04 mg/dL [facility] GFR Estimate 79 >60 mL/min/1. 7m2 [facility] Comment:Non GFR Calc GFR Estimate If Black >90 GFR Calc >60 mL/min/1. 7m2 [facility] Calcium 8.8 8.5 - 10.1 mg/dL [facility] Bilirubin Total 0.2 0.2 - 1.3 mg/dL [facility] Albumin 4.1 3.4 - 5.0 g/dL [facility] Protein Total 7.4 6.8 - 8.8 g/dL [facility] Alkaline Phosphatase 135 40 - 150 U/L [facility] ALT 55(H) 0 - 50 U/L [facility] AST 30 0 - 45 U/L [facility] Blood specimen (specimen) 11/27/2014 4:05 PM CDT 11/27/2014 4:14 PM CDT us Ian Monsivais MD LAB - BLOOD ORDERABLES Final Re sult [facility] [address] [address], [place] [phone] from Last 3 Months or Most Recently Relevant to Health Maintenance Insurance none (Work) [address] [place], [place] [address] MEDICARE MEDICA [employer] MEDICARE KargoCard OTHER OTHER none (Work) [address] [place] [id number] [facility] [employer]ANCE Advance Directives For more information, please contact: [phone] * Full Code (Latest Code Status on File) Date Activated Date Inactivated Comments 05/02/2011 8:26 PM 05/06/2011 2:41 PM * Full Code Date Activated Date Inactivated Comments 05/02/2011 2:17 PM 05/02/2011 8:26 PM Care Teams Sole Tier Relationship Specialty Start Date End Date Tommy Mcelroy MD PCP - General Family Practice 04/16/11
--- OUTSIDE RECORDS SUMMARY | 2023-12-04 03:30 | XMS_ITS | Encounter Summary ---
Author Organization [facility] Address [address] [place] [address] [place] [address] Care Team Providers Care Journeyman Welder Name Role Phone [facility]- Unava ilable Hayes Mcelroy MD Primary Care Provider [phone] Encounter Details Date Type Department Care Team (Latest Contact Info) Description 10/28/2023 Travel Social History Tobacco Use Types Packs/Day Years Used Date Smoking Tobacco: Former Cigarettes Smokeless Tobacco: Never Comments:Quit august 2023 Alcohol Use Standard Drinks/Week Comments Not Currently 0 (1 standard drink = 0.6 oz pur e alcohol) [facility] Utilities Answer Date Recorded In the [...] any time in the past 12 m [facility], were you homeless or living in a [place] health care facility (including now)? No 09/23/2023 Sex and Gender Information Value Date Recorded Sex Assigned at Not on file Gender Identity Not on file Sexual Orientation Not on file documented as of this encounter Plan of Treatment Not on file documented as of this encounter Visit Diagnoses Not on filedocumented in this encounter Care Teams Journeyman Welder Relationship Specialty Start Date End Date [facility]- [address] [place] [address] PCP - Primary Care Clinic 09/18/22 [place] [address] [place] [address] PCP - General 05/20/23 documented as of this encounter
--- OUTSIDE RECORDS SUMMARY | 2023-12-04 03:30 | XMS_ITS | Encounter Summary ---
Author Organization [facility] Address [address] [place] [address] Care Team Providers Care Pv Design Engineer Name Role Phone [facility]- Unava ilable Hayes Mcelroy MD Primary Care Provider [phone] Encounter Details Date Type Department Care Team [...] on filedocumented in this encounter Care Teams Pv Design Engineer Relationship Specialty Start Date End Date [facility]- [address] [place] [address] PCP - Primary Care Clinic 09/18/22 [place] [address] [place] [address] PCP - General 05/20/23 documented as of this encounter
--- OUTSIDE RECORDS SUMMARY | 2023-12-04 03:30 | XMS_ITS | Continuity of Care Document ---
Author Organization [facility] Address [address] [place] [address] Care Team Providers Care Vice President Of Software Development Name Role Phone [facility] Unavailable Unav ailable Procedures Procedure Date Dest [...] Diagnoses Date Provider Providers Copied on Encounter [facility], [address] [place], [place], [id number], [facility] No Information [facility]. [address] [place], [place], [id number], . tel:[phone] Referring Provider: Divina Deras, [address] [place], [address]. tel:[phone] [facility], [address] [place], [place], [id number], [facility] No Information [facility]. [address] [place] [address] [place], [id number], [place]. tel:[phone] Referring Provider: Divina Deras, [address] [place] [address], [id number]. tel:[phone] [facility], [address] [place] [address], [id number], [facility] No Information [facility] [place]. [address] [place] [address] [place], [place], [id number], [place]. tel:[phone] Referring Provider: Divina Deras, [address] [place] [address], [address]. tel:[phone] [facility], [address] [place] [address], [id number], [facility] No Information [facility]. [address] [place] [address], [id number], [place]. tel:[phone] Referring Provider: Divina Deras, [address] [place] [address], [address]. tel:[phone] [facility], [address] [place] [address], [id number], [facility] No Information [facility]. [address] [place] [address], [id number], . tel:[phone] Referring Provider: Divina Deras, [address] [place] [address], [address]. tel:[phone] Family History Family Member Type Diagnosis Age [...]
--- OUTSIDE RECORDS SUMMARY | 2023-12-04 03:30 | XMS_ITS | Encounter Summary ---
Author Organization [facility] Address [address] [place] [address] Care Team Providers Care Airplane Woodworker Name Role Phone [facility]- Unava ilable Hayes Mcelroy MD Primary Care Provider [phone] Reason for Referral * (Routine) - Open Specialty Diagnoses / Procedures Referred By Contac t Referred To Contact Diagnoses S/P lumbar fusion Procedures XR SPINE LUMBAR ROUTINE Brock Sawyer MD [address] [facility] [employer] [address] [place] [address] Referral ID Status Reason Start Date Expiration Date Visits Re quested Visits Authorized [id number] Open 12/21/2023 1 1 Reason for Visit * Reason Comments Post op check Encounter Details Date Type Department Care Team (Late st Contact Info) Description 2023 9:40 AM CDT Office Visit [facility] (an [facility] of [facility]) [address] [facility] [address] [place] [address] Brock Sawyer MD [address] [facility] [address] [place] [address] S/P lumbar fusion (Primary Dx) Social History Tobacco Use Types Packs/Day Years Used Date Smoking Tobacco: Former Cigarettes Smokeless Tobacco: Never Tobacco Cessation:Counseling Given: Not Answered Comments:Quit august 2023 Alcohol Use Standard Drinks/Week Comments Not Currently 0 (1 standard drink = 0.6 oz pur e alcohol) [facility] Utilities Answer Date Recorded In the [...] any time in the past 12 [facility], were you homeless or living in a senior care (including now)? No 09/23/2023 Sex and Gender [...] 10:22 AM CDT documented in this encounter Progress Notes * Brock Sawyer MD - 2023 9:40 AM CDT DATE OF SERVICE: 11/20/23 CHIEF COMPLAINT: Low back pain. HPI: Ramona Sanders is a pleasant 62 y.o. female here today for evaluation for the above stated issues. During her previous visit with Jg Ivory PA-C on 10/28/2023, patient presented 5 weeks status post BILATERAL HARDWARE REMOVAL L2- PELIVS WITH EXPLORATION OF L3-4 FUSION AND REPLACEMENT OF RODS (DOS:09/23/23) performed by . She was doing well postoperatively. Her symptoms continued to show signs of improvement. There were no new problems or major changes since our last encounter. Activity level was increasing at a reasonable rate. There had been no problems with surgical incisions. Sleeping and diet were adequate. She was happy with the results thus far. Today, the patient presents approximately two months status post Bilateral Hardware Removal L2-Pelvis with Exploration of L3-4 Fusion and Replacement of Rods (DOS:09/23/23) performed by myself. She reports she does not feel her pain was resolved by surgery and she continues to have severe low back pain, left side greater than right. The patient notes her pain can be debilitating. She notes she does try and take a walk every day. The patient reports she does not want to undergo any more injections. She states she is no longer smoking and quit four months ago. The patient was seen because of Mild to moderate thoracic spine degenerative changes, noted on her XR Imaging scan. Her pain is rated at a 5/10 on the pain scale. REVIEW OF SYSTEMS: [...] the findings with her. The impression is: 10/16/23 - XR Spine Standing Scoliosis - [facility] Impression: 1. Post L2-S1 AP fusion and C3-C7 fusion. 2. Mild to moderate thoracic spine degenerative changes. 3. Thoracolumbar dextroscoliosis measured at 11 degrees. 4. Spinal imbalance, as above. 10/16/23 - XR Lumbar Spine -[facility] Impression: 1. Postop changes as above. No obvious complication. 2. Minimal movement. No evidence of instability. ASSESSMENT: 1. Status post hardware removal with retained hardware only L3-4. Patient has had no significant change in pain. Will strongly recommend moving forward with an anti-inflammatory diet to decrease her pain symptoms and have her follow up with x-rays in one month. PLAN: 1. We discussed her current imaging and symptoms. After thorough review, I recommended she obtain updated 2. A very comprehensive discussion was done with this patient in discussing non surgical intervention and the gravity of this type of intervention. A shared decision-making approach was utilized. She will follow up in one month. At the end of our visit, Ramona Sanders understands the current diagnosis and future treatment plan, and questions were answered satisfactorily. I also asked if there are any other questions or concerns otherwise, that she please call back to the office; understanding of this was expressed. SCRIBE ATTESTATION: By signing my name below, I, ZACH Lay GUAMAN, attest that this documentation has been preparedunder the direction and in the presence of Brock Sawyer MD, 2023, 3:50 PM. PHYSICIAN ATTESTATION: I, Brock Sawyer MD, personally performed the services described in this documentation. All medical record entries made by the scribe were at my direction and in my presence. I have reviewed thechart and agree that the record reflects my personal performance, is accurate, and complete. Brock Sawyer MD SPINE SURGEON/ [facility] * Missy Lofton, PARAFFIN PLANT SWEATER OPERATOR - 2023 9:40 AM CDT RX Summary Summary Total Prescriptions 44 Total Private Pay 1 Total Prescribers 4 Total Pharmacies 2 Narcotics (excluding Buprenorphine) Current MME/day 180.00 30 Day Avg MME/day 165.00 Current Qty 64 Buprenorphine Current mg/day 0.00 30 Day Avg mg/day 0.00 Current Qty 0 UNINTENTIONAL OVERDOSE RISK SCORE MODEL How should I use this information? ABOVE [id number] NARX SCORES NARCOTICS 533 ACTIVE RX 3 SEDATIVES 370 ACTIVE RX 0 STIMULANTS 000 ACTIVE RX 0 MONGE CONTRIBUTING FACTORS TO OVERDOSE RISK SCORE MODEL Greater than six dispensations Yes Benzo - Narcotics overlap 60 Days Number of high risk scripts 14 Number of pharmacies where narcotics/sedatives/stimulants filled 2 Total days supply of short-acting drugs 732 i Prescriptions Total: 44 Private Pay: 1 Showing 1-44 of 44 Items View 1 of 1 Filled Written Sold ID Drug QTY Days Prescriber RX # Dispenser Refill Daily Dose* Pymt Type VAN DRIVER HELPER 10/29/2023 10/29/2023 10/29/2023 1 Oxycodone Hcl (Ir) 15 Mg Tab 60.00 30 Ca Van [id number] Sup (6706) 0/0 45.00 [place] 10/29/2023 10/29/2023 10/29/2023 1 Oxycodone Hcl (Ir) 10 Mg Tab 90.00 30 Ca Van [id number] Sup (6706) 0/0 45.00 [place] 10/29/2023 10/29/2023 10/29/2023 1 Oxycontin Er 20 Mg Tablet 90.00 30 Ca Van [id number] Sup (6706) 0/090.00 [place] 09/27/2023 09/25/2023 09/27/2023 1 Oxycontin Er 20 Mg Tablet 90.00 30 Ca Van [id number] Sup (6706) 0/090.00 [place] 09/26/2023 09/25/2023 09/26/2023 1 Oxycodone Hcl (Ir) 10 Mg Tab 90.00 30 Ca Van [id number] Sup (6706) 0/0 45.00 [place] 09/26/2023 09/25/2023 09/26/2023 1 Oxycodone Hcl (Ir) 15 Mg Tab 60.00 30 Ca Van [id number] Sup (6706) 0/0 45.00 [place] 09/25/2023 09/25/2023 2 Hydromorphone 4 Mg Tablet 40.00 7 [facility] [id number] Delio (1997) 0/0 114.29 [place] 09/25/2023 09/25/2023 2 Oxycontin Er 20 Mg Tablet 10.00 4 [facility] [id number] Delio (1997) 0/0 75.00 [place] 08/29/2023 08/29/2023 08/29/2023 1 Oxycodone Hcl (Ir) 10 Mg Tab 90.00 30 Ca Van [id number] Sup (6706) 0/0 45.00 [place] 08/29/2023 08/29/2023 08/29/2023 1 Oxycodone Hcl (Ir) 15 Mg Tab 60.00 30 Ca Van [id number] Sup (6706) 0/0 45.00 [place] 08/29/2023 08/29/2023 08/29/2023 1 Oxycontin Er 20 Mg Tablet 90.00 30 Ca Van [id number] Sup (6706) 0/090.00 [place] 08/20/2023 08/20/2023 08/24/2023 1 Lorazepam 1 Mg Tablet 90.00 30 Pe Buc [id number] Sup (6706) 0/0 3.00 [place] 07/30/2023 07/30/2023 07/30/2023 1 Oxycodone Hcl (Ir) 15 Mg Tab 60.00 30 Ca Van [id number] Sup (6706) 0/0 45.00 [place] 07/30/2023 07/30/2023 07/30/2023 1 Oxycontin Er 20 Mg Tablet 90.00 30 Ca Van [id number] Sup (6706) 0/090.00 [place] 07/30/2023 07/30/2023 07/30/2023 1 Oxycodone Hcl (Ir) 10 Mg Tab 90.00 30 Ca Van 7225464 Sup (6706) 0/0 45.00 [place] 07/02/2023 07/02/2023 07/02/2023 1 Oxycontin Er 20 Mg Tablet 90.00 30 Ca Van [id number] Sup (6706) 0/090.00 [place] 07/02/2023 07/02/2023 07/02/2023 1 Oxycodone Hcl (Ir) 10 Mg Tab 90.00 30 Ca Van [id number] Sup (6706) 0/0 45.00 [place] 07/02/2023 07/02/2023 07/02/2023 1 Oxycodone Hcl (Ir) 15 Mg Tab 60.00 30 Ca Van [id number] Sup (6866) 0/0 45.00 [place] 06/08/2023 06/02/2023 06/09/2023 1 Oxycontin Er 20 Mg Tablet 69.00 23 Ca Van [id number] Sup (6706) 0/090.00 [place] 06/03/2023 06/02/2023 06/03/2023 1 Oxycodone Hcl (Ir) 15 Mg Tab 60.00 30 Ca Van 9716447 Sup (6706) 0/0 45.00 [place] 06/02/2023 06/02/2023 06/02/2023 1 Oxycodone Hcl (Ir) 10 Mg Tab 90.00 30 Ca Van [id number] Sup (6706) 0/0 45.00 [place] 06/02/2023 06/02/2023 06/02/2023 1 Oxycodone Hcl (Ir) 5 Mg Tablet 28.00 5 Ca Van 5208838 Sup (6706)0/0 42.00 [place] 06/02/2023 06/02/2023 06/02/2023 1 Oxycontin Er 20 Mg Tablet 21.00 7 Ca Van [id number] Sup (6706) 0/0 90.00 [place] 05/03/2023 05/01/2023 05/07/2023 1 Oxycodone Hcl (Ir) 15 Mg Tab 60.00 30 Sa Alvin [id number] Sup (4346) 0/0 45.00 [place] 05/01/2023 05/01/2023 05/02/2023 1 Oxycodone Hcl (Ir) 10 Mg Tab 90.00 30 Sa Alvin [id number] Sup (4206) 0/0 45.00 [place] 05/01/2023 05/01/2023 05/02/2023 1 Oxycontin Er 20 Mg Tablet 90.00 30 Sa Alvin [id number] Sup (6706) 0/090.00 [place] 04/05/2023 04/02/2023 04/06/2023 1 Oxycodone Hcl (Ir) 15 Mg Tab 60.00 30 Ca Van [id number] Sup (6706) 0/0 45.00 [place] 04/03/2023 04/02/2023 04/03/2023 1 Oxycontin Er 20 Mg Tablet 90.00 30 Ca Van [id number] Sup (6706) 0/090.00 [place] 04[place]02/2023 04/02/2023 04/02/2023 1 Oxycodone Hcl (Ir) 10 Mg Tab 90.00 30 Ca Van [id number] Sup (7906) 0/0 45.00 [place] 03/05/2023 03/03/2023 03/09/2023 1 Oxycodone Hcl (Ir) 15 Mg Tab 60.00 30 Ca Van [id number] Sup (6706) 0/0 45.00 [place] 03/03/2023 03/03/2023 03/03/2023 1 Oxycontin Er 20 Mg Tablet 90.00 30 Ca Van [id number] Sup (6706) 0/090.00 [place] 03/03/2023 03/03/2023 03/03/2023 1 Oxycodone Hcl (Ir) 10 Mg Tab 90.00 30 Ca Van [id number] Sup (6706) 0/0 45.00 [place] 02/02/2023 01/28/2023 02/06/2023 1 Oxycodone Hcl (Ir) 15 Mg Tab 60.00 30 Ca Van [id number] Sup (6706) 0/0 45.00 [place] 01/28/2023 01/28/2023 01/30/2023 1 Oxycontin Er 20 Mg Tablet 90.00 30 Ca Van [id number] Sup (6706) 0/090.00 [place] 01/28/2023 01/28/2023 01/30/2023 1 Lorazepam 1 Mg Tablet 90.00 30 Pe Buc [id number] Sup (6706) 0/0 3.00 [place] 01/28/2023 01/28/2023 01/30/2023 1 Oxycodone Hcl (Ir) 10 Mg Tab 41.00 14 Ca Van 0613945 Sup (6706) 0/0 43.93 [place] 01/28/2023 01/28/2023 01/30/2023 1 Oxycodone Hcl (Ir) 10 Mg Tab 49.00 16 Ca Van [id number] Sup (6706) 0/0 45.94 [place] 01/03/2023 01/01/2023 01/06/2023 1 Oxycodone Hcl (Ir) 15 Mg Tab 60.00 30 Ca Van 0870680 Sup (6706) 0/0 45.00 [place] 01/01/2023 01/01/2023 01/01/2023 1 Oxycontin Er 20 Mg Tablet 90.00 30 Ca Van [id number] Sup (6706) 0/090.00 [place] 01/01/2023 01/01/2023 01/01/2023 1 Oxycodone Hcl (Ir) 10 Mg Tab 90.00 30 Ca Van 2449781 Sup (6706) 0/0 45.00 [place] 12/14/2022 12/04/2022 12/14/2022 1 Oxycodone Hcl (Ir) 15 Mg Tab 50.00 25 Ca Van 4602450 Sup (6706) 0/0 45.00 [place] 12/04/2022 12/04/2022 12/04/2022 1 Oxycontin Er 20 Mg Tablet 90.00 30 Ca Van [id number] Sup (6706) 0/090.00 [place] 12/04/2022 12/04/2022 12/04/2022 1 Oxycodone Hcl (Ir) 15 Mg Tab 10.00 5 Ca Van [id number] Sup (6706) 0/0 45.00 [place] 12/04/2022 12/04/2022 12/04/2022 1 Oxycodone Hcl (Ir) 10 Mg Tab 90.00 30 Ca Van [id number] Sup (6706) 0/0 45.00 [place] Providers Total: 4 Showing 1-4 of 4 Items View 1 of 1 Name Address [facility] Zipcode Phone Cate Thomas [address] [facility] [address] Kiara Álvarez, MSN [address] [facility] 736519 Tasha Hendrickson [address] [facility] 894[address] Vladimir Paez [address] [facility] [address] [address] Showing 1-4 of 4 Items View 1 of 1 Pharmacies Total: 2 Showing 1-2 of 2 Items View 1 of 1 Name Address [facility] Zipcode Phone [facility] ([facility]) [address] [facility] [address] [facility] ([facility]) [address] [place] [address] As a proxy delegate, I have queried the [place] and/or [place] Prescription Monitoring Program for this patient and provided the clinician with the above information for the preceding 12 months. Missy Lofton LPN * [place] - 2023 9:40 AM CDT Reason for visit: post op Symptoms: LBP RADIATES TO BI HIP BONES/ BURNING SENSATION Pain Score: 5/10 Imaging/Location/ Date/ (NEELA): 2VL ORDERED TO RAYUS NOT COMPLETED Injections: NO Location: Outcome: Physical Therapy: NO Location: Outcome: Current pain meds: OXYCODONE, OXYCOTIN, ROBAXIN Changes in health history since last visit: Any major falls in the last year: no Did the fall(s) result in injury: no Is the patient at risk for falls: no Is a Disability or Workability Form needed - no Current RTW date - Work Comp: no Date: MVA: no Date: Prior Spinal Treatments/ Procedures: 09/23/23 [facility] 01/16/22 [facility] [place] [facility] documented in this encounter Plan of Treatment Scheduled Orders Name Type Priority Associated Diagnoses Orde r Schedule XR SPINE LUMBAR ROUTINE Imaging Routine S/P lumbar fusion Expected: 12/21/2023 (Approximate), Expires: 02/20/2024 documented as of this encounter Visit Diagnoses Diagnosis S/P lumbar fusion- Primary Arthrodesis status documented in this encounter Care Teams Airplane Woodworker Relationship Specialty Start Date End Date [facility]- [address] [place] [address] PCP - Primary Care Clinic 09/18/22 [place] [address] [place] [address] PCP - General 05/20/23 documented as of this encounter
--- OUTSIDE RECORDS SUMMARY | 2023-12-04 03:30 | XMS_ITS | Referral Summary ---
Author Organization [facility] Address [address] [place] [address] Care Team Providers Care Optical Mechanic Apprentice Name Role Phone Tommy Mcelroy MD Primary Care Provider [phone] Allergies Active Allergy Reactions Criticality Noted Date Comments Baclofen 12/23/2012 Diphenhydramine-Zinc Acetate Other (See Comments) 04/24/2011 Makes restless leg symptoms worse. Compazine Anaphylaxis 10/23/2004 Cyclobenzaprine Other (See Comments) 04/24/2011 Makes restless leg symptoms worse. Cyclobenzaprine Hcl 12/23/2012 Methocarbamol Other (See Comments) 04/24/2011 Makes restless leg symptoms worse. Mirtazapine 12/23/2012 Stweejyppakj-Hezozqy-Llrc ine 12/23/2012 Medications pramipexole (MIRAPEX) 0.125 MG [...] on file Legal Sex Female 3:09 AM LEAD TELLER Gender Identity Not on file Sexual Orientation Not on file Last Filed Vital Signs Vital Sign Reading Time Taken Comments Blood Pressure 111/70 01/08/2023 1:50 PM LEAD TELLER Pulse 73 01/08/2023 1:50 PM LEAD TELLER Temperature 36.7 ??C (98 ??F) 01/08/2023 1:50 PM LEAD TELLER Respiratory Rate 18 01/08/2023 1:50 PM LEAD TELLER Oxygen Saturation 96% 01/08/2023 1:50 PM LEAD TELLER Inhaled Oxygen Concentration - - Weight 77.1 kg (170 lb) 11/27/2014 3:41 PM CDT Height 175.3 cm (5' 9) 11/27/2014 3:41 PM CDT Body Mass Index 25.1 11/27/2014 3:41 PM CDT Plan of Treatment Not on file Medical Devices Implanted Type Area Investment Broker Device Identifier Shelf Expiration Date Model / Serial / Lot Graft Bone Foam Pack Vitoss 10ml Bio Active Implanted:Qty: 1 on 05/02/2011 at [facility] N/A: Spine Lumbar 10/04/2012 / / [id number] Iom Supplies Implanted:Qty: 1 on 05/02/2011 at [facility] Cell Saver Standby Implanted:Qty: 1 on 05/02/2011 at [facility] Graft Bone Crush Canc 15ml [id number] Implanted:Qty: 1 on 05/02/2011 at [facility] N/A: Spine Lumbar [id number] / [id number] / 14x12 Align Implanted:Qty: 1 on 05/02/2011 at [facility] N/A: Spine Lumbar [id number] / / [id number] 16x12 Align Implanted:Qty: 1 on 05/02/2011 at [facility] N/A: Spine Lumbar [id number] / / [id number] 25mm Plate Implanted:Qty: 1 on 05/02/2011 at [facility] N/A: Spine Lumbar [id number] / / [id number] 25mm Screw Implanted:Qty: 4 on 05/02/2011 at [facility] N/A: Spine Lumbar [id number] / / [id number] Imp Washer Syn [place] 13.5x5.5mm Implanted:Qty: 2 on 05/02/2011 at [facility] N/A: Spine Lumbar 219.951 / / 0106 [id number] Imp Scr Syn Canc 6.2z214fy Ft Ti Implanted:Qty: 2 on 05/02/2011 at [facility] N/A: Spine Lumbar 418.025 / / [id number] Spf-Plus 60/M Implantable Spinal Fusion Stimulator Implanted:Qty: 1 on 03/02/2014 by Brock Sawyer MD at [facility] N/A: Back [employer] 07/03/2015 [id number] / [id number] / Graft Bone Foam Pack Vitoss 10ml Bio Active [id number] Implanted:Qty: 1 on 03/02/2014 by Brock Sawyer MD at [facility] N/A: Back ORTHOVITA 09/10/2015 [id number] / / [id number] Imp Scr Medt 5.5/6.0mm Solera 6.5x45mm Ma [id number] Implanted:Qty: 4 on 03/02/2014 by Brock Sawyer MD at [facility] N/A: Back [employer] [id number] / / [id number] 2014 Imp Scr Medt 5.5/6.0mm Solera 8.5x70mm Ma [id number] Implanted:Qty: 2 on 03/02/2014 by Brock Sawyer MD at [facility] N/A: Back [employer] [id number] / / [id number] 01 MAR 2014 Imp Scr Set Medt Solera Break Off 5.5mm Ti [id number] Implanted:Qty: 6 on 03/02/2014 by Brock Sawyer MD at [facility] N/A: Back [employer] [id number] / / [id number] 01 MAR 2014 Imp Beltran Medt Solera Cvd 5.4b171hl Ti [id number] Implanted:Qty: 2 on 03/02/2014 by Brock Sawyer MD at [facility] N/A: Back [employer] [id number] / / [id number] 02 MAR 2014 Imp Scr Syn Can 4.0x20mm Ft Ss 206.020 Implanted:Qty: 2 on 03/02/2014 by Brock Sawyer MD at [facility] N/A: Back SYNTHES-STRATEC 206.020 / / Impulse Implanted:Qty: 1 on 03/02/2014 by Brock Sawyer MD at [facility] Explanted Type Area Investment Broker Device Identifier Shelf Expiration Date Model / Serial / Lot Imp Scr Danek Sext Can 6.5x40mm Legacy Ti Implanted:Qty: 2 on 05/02/2011 at [facility] Explanted:Qty: 2 on 03/02/2014 at [facility] N/A: Spine Lumbar [id number] / / [id number] Imp Scr Danek Set G4 Internal Hex [id number] Implanted:Qty: 4 on 05/02/2011 at [facility] Explanted:Qty: 4 on 03/02/2014 at [facility] N/A: Spine Lumbar [id number] / / [id number] Imp Beltran Danek Sext 60mm Ti [id number] Implanted:Qty: 2 on 05/02/2011 at [facility] Explanted:Qty: 2 on 03/02/2014 at [facility] N/A: Spine Lumbar [id number] / / [id number] Imp Scr Danek Sext Can 6.5x45mm Legacy Ti Implanted:Qty: 2 on 05/02/2011 at [facility] Explanted:Qty: 2 on 03/02/2014 at [facility] N/A: Spine Lumbar [id number] / / [id number] Description:BILATERAL SCREWS FROM S1, SCREW HEAD REMOVED, SCREW SHAFT REMAINS Procedures Procedure Name Priority Date/Time Associated Diagnosis Comments COMPREHENSIVE METABOLIC PANEL STAT 11/27/2014 4:05 PM CDT from Last 3 Months or Most Recently Relevant to Health Maintenance Results * (ABNORMAL) Comprehensive metabolic panel (11/27/2014 4:05 PM CDT) Sodium 139 133 - 144 mmol/L [facility] Potassium 4.0 3.4 - 5.3 mmol/L [facility] Chloride 105 94 - 109 mmol/L [facility] Carbon Dioxide 27 20 - 32 mmol/L [facility] Anion Gap 7 3 - 14 mmol/L [facility] Glucose 158(H) 70 - 99 mg/dL [facility] Urea Nitrogen 13 7 - 30 mg/dL [facility] Creatinine 0.76 0.52 - 1.04 mg/dL [facility] GFR Estimate 79 >60 mL/min/1. 7m2 [facility] Comment:Non GFR Calc GFR Estimate If Black >90 GFR Calc >60 mL/min/1. 7m2 [facility] Calcium 8.8 8.5 - 10.1 mg/dL [facility] Bilirubin Total 0.2 0.2 - 1.3 mg/dL [facility] Albumin 4.1 3.4 - 5.0 g/dL [facility] Protein Total 7.4 6.8 - 8.8 g/dL [facility] Alkaline Phosphatase 135 40 - 150 U/L [facility] ALT 55(H) 0 - 50 U/L [facility] AST 30 0 - 45 U/L [facility] Blood specimen (specimen) 11/27/2014 4:05 PM CDT 11/27/2014 4:14 PM CDT us Ian Monsivais MD LAB - BLOOD ORDERABLES Final Re sult [facility] [address] [place] [address] [phone] from Last 3 Months or Most Recently Relevant to Health Maintenance Insurance none (Work) [address] [place] [address] MEDICARE [employer] [place] [id number] MEDICARE [employer] [place] [id number] OTHER OTHER none (Work) [address] [place] [address] [facility] INSURANCE Advance Directives For more information, please contact: [phone] * Full Code (Latest Code Status on File) Date Activated Date Inactivated Comments 05/02/2011 8:26 PM 05/06/2011 2:41 PM * Full Code Date Activated Date Inactivated Comments 05/02/2011 2:17 PM 05/02/2011 8:26 PM Care Teams Optical Mechanic Apprentice Relationship Specialty Start Date End Date Tommy Mcelroy MD PCP - General Family Practice 04/16/11
--- OUTSIDE RECORDS SUMMARY | 2023-12-04 03:31 | XMS_ITS | Continuity of Care Document ---
Author Organization [facility] tommie Address [address] [facility] [place] [id number] Phone Care Team Providers Care Associate Merchant Name Role Phone Kiara Álvarez CNP Unavailable Unavail able Allergies, Adverse Reactions, Alerts Substance Reaction Status Criticality diphenhydramine Active No Informati on PROCHLORPERAZINE MALEATE Active No Information PROCHLORPERAZINE EDISYLATE Active N o Information Medications Medication Instructions Dosage Effective Dates (start - stop) Status Comments OxyContin 20 mg tablet,crush resistant,extende d release take 1 tablet by oral route every 8 hours for chronic pain, 30 day script - Active may fill today, to start 11/30/23 oxycodone 15 mg tablet take 1 tablet by oral route every 4-6 hours prn chronic pain, max 2/day, 30 day script - Active may fill today, to start 10/20 oxycodone 10 mg tablet take 1 tablet by ORAL route every 4 - 6 hours prn chronic pain, max 3/day, alternate with 15mg tablets, 30 day script - Active may fill today, to start 10/20 lidocaine 5 % topical patch apply 1 - 3 patches to low back every day for up to 12 hours per 24 hours. - Active Narcan 4 mg/actuation nasal spray [...] times every day 200 MG - Active PRAZOSIN HCL (unknown strength) take 1 capsule by oral route 3 times every day Not Available - Active trazodone 100 mg tablet take 1 tablet by oral route every day at bedtime - Active metformin 1,000 mg tablet take 1 tablet by oral route 2 times everyday - Active Prilosec 10 mg capsule,delayed release take 1 capsule by oral route every morning before a meal 10 MG - Active Mirapex 1 mg tablet take 1 tablet by oral route every day 1 MG - Active dicyclomine 10 mg capsule take 1 capsule by oral route 2 times every day 10 MG - Active Procedures Procedure Date OFFICE VISIT, EST TELEMEDICINE OFFICE/OUTPATIENT VISIT, EST Drug Urine Toxology With Chromatography Drug test def 15-21 classes OFFICE VISIT, EST TELEMEDICINE OFFICE/OUTPATIENT VISIT, [...] MOD COMPLEX 30 MIN THERAPEUTIC EXERCISES Drug Urine Toxology With Chromatography Drug test def 8-14 classes OFFICE/OUTPATIENT VISIT, EST OFFICE VISIT, EST [...] Diagnoses Date Provider Providers Copied on Encounter [facility], [address] [place] [address], [id number] , tel:[phone] [facility] [place] No Information 4 Jonah Craig. [address], [place], [id number], [place]. tel:[phone] OFFICE VISIT, [facility], [address] [place] [address], [id number] , tel:[phone] [facility] [place] Back Pain (chief complaint) Chronic pain syndromeOther intervertebral disc degeneration, lumbar region, NOSPostlaminec gumaro syndrome, not elsewhere classifiedPain in right kneePain in left kneeDrug induced constipationLo ng term (current) use of opiate analgesicBody mass index [BMI] 27.0-27.9, adult 4 Jonah Craig. [address], [place], [id number], [place]. tel:[phone] Consulting Provider: Lucas Talamantes, [facility] [address], [place], [address]. tel:[phone] OFFICE/OUTPAT IENT VISIT, EST [facility], [address] [place] [address], [id number] , [phone] [facility] [place] Back Pain (chief complaint) Chronic pain syndromeOther intervertebral disc degeneration, lumbar regionPostlami nectomy syndrome, not elsewhere classifiedPain in right kneePain in left kneeDrug induced constipationLo ng term (current) use of opiate analgesicEncou nter for therapeutic drug level monitoringBody mass index [BMI] 27.0-27.9, adult Oct- 4 Jonah Craig. [address] [place] [address], [id number], [place]. tel:[phone] Consulting Provider: Lucas Talamantes, [facility] [address], [address] [address], [place], [address]. tel:[phone] ring Provider: Emir Espinal, [address] [place] [address], [id number]. tel:[phone] [facility], [address] [place] [address], [id number] , tel:[phone] [facility] Back Pain (chief complaint) Chronic pain syndromeOther intervertebral disc degeneration, lumbar regionPostlami nectomy syndrome, not elsewhere classifiedPain in right kneePain in left kneeDrug induced constipationLo ng term (current) use of opiate analgesic 4 Jonah Craig. [address] [place] [address], [id number], [place]. tel:[phone] Consulting Provider: Lucas Talamantes [facility] [address], [address] [facility], [place], [address]. tel:[phone] OFFICE VISIT, EST TELEMEDICINE [facility], [address] [place] [address], [id number] , [place] [phone] [facility] [place] Back pain (chief complaint) Chronic pain syndromeOther intervertebral disc degeneration, lumbar regionPostlami nectomy syndrome, not elsewhere classifiedPain in right kneePain in left kneeDrug induced constipationLo ng term (current) use of opiate analgesic 4 Jonah Pastorberoberto carlos Craig. [address] [place] [address], [id number], [place]. tel:[phone] Consulting Provider: Lucas Talamantes, [facility] [address], [address], [place], [address]. tel:[phone] ring Provider: Emir Espinal, [address] [place] [address], [id number]. tel:[phone] OFFICE/OUTPAT IENT VISIT, [facility], [address] [place] [address], [id number] , [place] tel:[phone] [facility] [place] Back Pain (chief complaint) Chronic pain syndromeOther intervertebral disc degeneration, lumbar regionPostlami nectomy syndrome, not elsewhere classifiedPain in right kneePain in left kneeDrug induced constipationLo ng term (current) use of opiate analgesicEncou nter for therapeutic drug level monitoringCerv icalgia 4 Jonah Craig. [address], [place], [id number], [place]. tel:[phone] Consulting Provider: Lucas Talamantes, [facility] [address], [address], [place], [address]. tel:[phone] ring Provider: Emir Espinal, [address] [place] [address], [id number]. tel:[phone] OFFICE VISIT, EST TELEMEDICINE [facility], [address] [place] [address], [id number] , [place] tel:[phone] [facility] [place] Back pain (chief complaint) Postlaminectom y syndrome, not elsewhere classifiedOthe r intervertebral disc degeneration, lumbar regionPain in right kneePain in left kneeDrug induced constipationLo ng term (current) use of opiate analgesicChron ic pain syndrome 4 Jonah Craig. [address] [place] [address], [id number], [place]. tel:[phone] Consulting Provider: Lucas Talamantes, [facility] [address], [address], [place], [address]. tel:[phone] [facility], [address] [place] [address], [id number] , [place] tel:[phone] [facility] Pain in right kneePain in left knee June-0 4 Braeden Murcia. [address] [place] [address], [id number], [place]. tel:[phone] Referring Provider: Kiara Álvarez, [address] [place] [address], [id number]. tel:[phone] OFFICE VISIT, EST TELEMEDICINE [facility], [address] [place] [address], [id number] , [place] tel:[phone] [facility] [place] Back Pain (chief complaint) Chronic pain syndromePostla minectomy syndrome, not elsewhere classifiedOthe r intervertebral disc degeneration, lumbar regionPain in right kneePain in left kneeDrug induced constipationLo ng term (current) use of opiate analgesic Apr-2 4 Jonah Craig. [address] [place] [address], [id number], [place]. tel:[phone] Consulting Provider: Lucas Talamantes, [facility] [address], [address], [place], [address]. tel:[phone] ring Provider: Emir Espinal, [address] [place] [address], [id number]. tel:[phone] [facility], [address] [place] [address], [id number] , [place] tel:[phone] [facility] [place] Pain in left kneePain in right knee May- 4 Jonah Craig. [address] [place] [address], [id number], [place]. tel:[phone] [facility], [address] [place] [address], [id number] , [place] tel:[phone] [facility] Pain in right kneePain in left knee 4 Braeden Murcia. [address] [place] [address], [id number], [place]. tel:[phone] Referring Provider: Kiara Álvarez, [address] [place] [address], [id number]. tel:[phone] [facility], [address] [place] [address], [id number] , [place] tel:[phone] [facility] [place] Pain in left kneePain in right knee May-0 4 Mihir Field. [address] [place] [address], [id number], [place]. tel:[phone] [facility], [address] [place] [address], [id number] , [place] [phone] [facility] [place] back painOther chronic painArthrodesi s status 4 Braeden Murcia. [address] [place] [address], [id number], [place]. tel:[phone] Referring Provider: Kiara Álvarez, [address] [place] [address], [id number]. tel:[phone] OFFICE/OUTPAT IENT VISIT, EST [facility], [address] [place] [address], [id number] , [place] tel:[phone] [facility] [place] Back Pain (chief complaint) Postlaminectom y syndrome, not elsewhere classifiedOthe r intervertebral disc degeneration, lumbar regionPain in right kneePain in left kneeDrug induced constipationLo ng term (current) use of opiate analgesicChron ic pain syndromeEncoun ter for therapeutic drug level monitoring 4 Emeka Tasha. [address] [place] [address], [id number], [place]. tel:[phone] Referring Provider: Emir Espinal, [address] [place] [address], [id number]. tel:[phone] OFFICE VISIT, EST TELEMEDICINE [facility], [address] [place] [address], [id number] , [place] tel:[phone] [facility] [place] Back Pain (chief complaint) Postlaminectom y syndrome, not elsewhere classifiedOthe r intervertebral disc degeneration, lumbar regionPain in right kneePain in left kneeDrug induced constipationLo ng term (current) use of opiate analgesic 4 Van Overbeke Kiara. [address] [place] [address], [id number], [place]. tel:[phone] Consulting Provider: Lucas Talamantes [facility] [address], [address], [place], [address]. tel:[phone] OFFICE VISIT, EST TELEMEDICINE [facility], [address] [place] [address], [id number] , [place] tel:[phone] [facility] [place] Back Pain (chief complaint) Postlaminectom y syndrome, not elsewhere classifiedOthe r intervertebral disc degeneration, lumbar regionPain in right kneePain in left kneeDrug induced constipationLo ng term (current) use of opiate analgesic 4 Jonah Overbeke Kiara. [address] [place] [address], [id number], [place]. tel:[phone] Consulting Provider: Lucas Talamantes [facility] [address], [address], [place], [address]. tel:[phone] ring Provider: Emir Espinal, [address] [place] [address], [id number]. tel:[phone] [facility], [address] [place] [address], [id number] , [place] tel:[phone] [facility] [place] No Information 3 Jonah Overberoberto carlos Craig. [address] [place] [address], [id number], [place]. tel:[phone] Referring Provider: Emir Espinal, [address] [place] [address], [id number]. tel:[phone] OFFICE/OUTPAT IENT VISIT, EST [facility], [address] [place] [address], [id number] , [place] tel:[phone] [facility] [place] Back Pain (chief complaint) Postlaminectom y syndrome, not elsewhere classifiedOthe r intervertebral disc degeneration, lumbar regionPain in right kneePain in left kneeDrug induced constipationLo ng term (current) use of opiate analgesicEncou nter for therapeutic drug level monitoring 3 Van Overbeke Kiara. [address], [place], [id number], [place]. tel:[phone] Consulting Provider: Lucas Talamantes [facility] [address], [address], [place], [address]. tel:[phone] ring Provider: Emir Espinal, [address] [place] [address], [id number]. tel:[phone] OFFICE VISIT, EST TELEMEDICINE [facility], [address] [place] [address], [id number] , [place] tel:[phone] [facility] [place] Back Pain (chief complaint) Postlaminectom y syndrome, not elsewhere classifiedOthe r intervertebral disc degeneration, lumbar regionPain in right kneePain in left kneeDrug induced constipationLo ng term (current) use of opiate analgesic 3 Van Overbeke Kiara. [address], [place], [id number], [place]. tel:[phone] Consulting Provider: Lucas Talamantes [facility] [address], [address], [place], [address]. tel:[phone] OFFICE VISIT, EST TELEMEDICINE [facility], [address] [place] [address], [id number] , [place] tel:[phone] [facility] [place] Back Pain (chief complaint) Postlaminectom y syndrome, not elsewhere classifiedOthe r intervertebral disc degeneration, lumbar regionPain in right kneePain in left kneeDrug induced constipationLo ng term (current) use of opiate analgesic 3 Van Overbeke Kiara. [address], [place], [id number], [place]. tel:[phone] Consulting Provider: Lucas Talamantes [facility] [address], [address], [place], [address]. tel:[phone] ring Provider: Emir Espinal, [address] [place] [address], [id number]. tel:[phone] [facility], [address] [place] [address], [id number] , [place] tel:[phone] [facility] Pain in right kneePain in left knee 3 Braeden Mrucia. [address] [place] [address], [id number], [place]. tel:[phone] Referring Provider: Emir Espinal, [address] [place] [address], [id number]. tel:[phone] [facility], [address] [place] [address], [id number] , [place] tel:[phone] [facility] lumbago/kn ees (chief complaint) Postlaminectom y syndrome, not elsewhere classifiedOthe r intervertebral disc degeneration, lumbar region 3 Melinda Zavala. [address] [place] [address], [id number], [place]. tel:[phone] Referring Provider: Emir Espinal, [address] [place] [address], [id number]. tel:[phone] [facility], [address] [place] [address], [id number] , [place] tel:[phone] [facility] [place] No Information Oct- 3 Jonah Craig. [address] [place] [address], [id number], [place]. tel:[phone] OFFICE/OUTPAT IENT VISIT, EST [facility], [address] [place] [address], [id number] , [place] tel:[phone] [facility] [place] [facility] Pain (chief complaint) Postlaminectom y syndrome, not elsewhere classifiedOthe r intervertebral disc degeneration, lumbar regionPain in right kneePain in left kneeDrug induced constipationLo ng term (current) use of opiate analgesicEncou nter for therapeutic drug level monitoring Sep- 3 Van Overbeke Kiara. [address], [place], [id number], [place]. tel:[phone] Consulting Provider: Lucas Talamantes, [facility] [address], [address], [place], [address]. tel:[phone] [facility] Provider: Emir Espinal, [address] [place] [address], [id number]. tel:[phone] OFFICE VISIT, EST TELEMEDICINE [facility], [address] [place] [address], [id number] , [place] tel:[phone] [facility] [place] Back Pain (chief complaint) Postlaminectom y syndrome, not elsewhere classifiedOthe r intervertebral disc degeneration, lumbar regionPain in right kneePain in left kneeDrug induced constipationLo ng term (current) use of opiate analgesic 3 Jonah Overberoberto carlos Kiara. [address] [place] [address], [id number], [place]. tel:[phone] Consulting Provider: Lucas Talamantes, [facility] [address], [address], [place], [address]. tel:[phone] [facility] Provider: Emir Espinal, [address] [place] [address], [address]. tel:[phone] OFFICE VISIT, EST TELEMEDICINE [facility], [address] [place] [address], [id number] , [place] tel:[phone] [facility] [place] Back Pain (chief complaint) Postlaminectom y syndrome, not elsewhere classifiedOthe r intervertebral disc degeneration, lumbar regionSacroili itis, not elsewhere classifiedPain in right kneePain in left kneeOther muscle spasmChronic migraine without aura, intractable, without status migrainosusMaj or depressive disorder, single episode, unspecifiedDru g induced constipationLo ng term (current) use of opiate analgesic 3 Van Overbeke Kiara. [address] [place] [address], [id number], [place]. tel:[phone] Consulting Provider: Lucas Talamantes [facility] [address], [address], [place], [address]. tel:[phone] ring Provider: Emir Espinal, [address] [place] [address], [id number]. tel:[phone] [facility], [address] [place] [address], [id number] , [place] [phone] [facility] [place] No Information 3 Jonah Craig. [address] [place] [address], [id number], [place]. tel:[phone] Referring Provider: Emir Espinal, [address] [place] [address], [id number]. tel:[phone] OFFICE/OUTPAT IENT VISIT, EST [facility], [address] [place] [address], [id number] , [place] [phone] [facility] Back Pain (chief complaint) Major depressive disorder, single episode, unspecifiedChr onic migraine without aura, intractable, without status migrainosusDru g induced constipationPa in in right kneePain in left kneeSacroiliit is, not elsewhere classifiedOthe r intervertebral disc degeneration, lumbar regionOther muscle spasmPostlamin ectomy syndrome, not elsewhere classifiedLong term (current) use of opiate analgesicEncou nter for therapeutic drug level monitoring 3 Jnoah Craig. [address] [place] [address], [id number], [place]. tel:[phone] Consulting Provider: Lucas Talamantes, [facility] [address], [place] [address], [place], [address]. tel:[phone] ring Provider: Emir Espinal, [address] [place] [address], [id number]. tel:[phone] [facility], [address] [place] [address], [id number] , [place] tel:[phone] [facility] Pain in right kneePain in left knee 3 Braeden Murcia. [address] [place] [address], [id number], [place]. tel:[phone] Referring Provider: Emir Espinal, [address] [place] [address], [id number]. tel:[phone] OFFICE VISIT, [facility] TELEMEDICINE [facility], [address] [place] [address], [id number] , tel:[phone] [facility] [place] Back pain (chief complaint) Major depressive disorder, single episode, unspecifiedChr onic migraine without aura, intractable, without status migrainosusSac roiliitis, not elsewhere classifiedOthe r intervertebral disc degeneration, lumbar regionOther muscle spasmPostlamin ectomy syndrome, not elsewhere classifiedLong term (current) use of opiate analgesicPain in right kneePain in left kneeDrug induced constipation 3 Jonah Overbeke Kiara. [address] [place] [address], [id number], [place]. tel:[phone] Consulting Provider: Lucas Talamantes, [facility] [address], [address], [place], [address]. tel:[phone] ring Provider: Emir Espinal, [address] [place] [address], [id number]. tel:[phone] OFFICE VISIT, [facility] TELEMEDICINE [facility], [address] [place] [address], [id number] , [place] tel:[phone] [facility] Back Pain (chief complaint) Major depressive disorder, single episode, unspecifiedChr onic migraine without aura, intractable, without status migrainosusSac roiliitis, not elsewhere classifiedOthe r intervertebral disc degeneration, lumbar regionOther muscle spasmPostlamin ectomy syndrome, not elsewhere classifiedLong term (current) use of opiate analgesic May- 3 Van Overbeke Kiara. [address] [place] [address], [id number], [place]. tel:[phone] Consulting Provider: Lucas Talamantes, [facility] [address], [address], [place], [address]. tel:[phone] OFFICE/OUTPAT IENT VISIT, [facility], [address] [place] [address], [id number] , [place] tel:[phone] [facility] back pain (chief complaint) Major depressive disorder, single episode, unspecifiedChr onic migraine without aura, intractable, without status migrainosusSac roiliitis, not elsewhere classifiedOthe r intervertebral disc degeneration, lumbar regionOther muscle spasmPostlamin ectomy syndrome, not elsewhere classifiedLong term (current) use of opiate analgesicEncou nter for therapeutic drug level monitoring 3 Jonah Craig. [address] [place] [address], [id number], [place]. tel:[phone] Consulting Provider: Lucas Talamantes, [facility] [address], [address], [place], [address]. tel:[phone] ring Provider: Emir Espinal, [address] [place] [address], [id number]. tel:[phone] [facility], [address] [place] [address], [id number] , [place] [phone] [facility] [place] No Information 3 Jonah Craig. [address] [place] [address], [id number], [place]. tel:[phone] OFFICE VISIT, EST TELEMEDICINE [facility], [address] [place] [address], [id number] , [place] tel:[phone] [facility] Back Pain (chief complaint) Major depressive disorder, single episode, unspecifiedChr onic migraine without aura, intractable, without status migrainosusSac roiliitis, not elsewhere classifiedOthe r intervertebral disc degeneration, lumbar regionPostlami nectomy syndrome, not elsewhere classifiedLong term (current) use of opiate analgesicOther muscle spasm 3 Jonah Pastorbeke Kiara. [address] [place] [address], [id number], [place]. tel:[phone] Consulting Provider: Lucas Talamantes, [facility] [address], [address], [place], [address]. tel:[phone] OFFICE VISIT, EST TELEMEDICINE [facility], [address] [place] [address], [id number] , [place] tel:[phone] [facility] Back Pain (chief complaint) Other intervertebral disc degeneration, lumbar regionSacroili itis, not elsewhere classifiedChro tommie migraine without aura, intractable, without status migrainosusMaj or depressive disorder, single episode, unspecifiedOth er muscle spasmPostlamin ectomy syndrome, not elsewhere classifiedLong term (current) use of opiate analgesic 3 Van Overbeke Kiara. [address] [place] [address], [id number], [place]. tel:[phone] Consulting Provider: Lucas Talamantes, [facility] [address], [address], [place], [address]. tel:[phone] OFFICE/OUTPAT IENT VISIT, EST [facility], [address] [place] [address], [id number] , tel:[phone] [facility] Back pain (chief complaint) Major depressive disorder, single episode, unspecifiedChr onic migraine without aura, intractable, without status migrainosusSac roiliitis, not elsewhere classifiedOthe r intervertebral disc degeneration, lumbar regionOther muscle spasmPostlamin ectomy syndrome, not elsewhere classifiedLong term (current) use of opiate analgesicEncou nter for therapeutic drug level monitoring 2 Jonah Pastorbeke Kiara. [address] [place] [address], [id number], [place]. tel:[phone] Consulting Provider: Lucas Talamantes, [facility] [address], [place], [address]. tel:[phone] ring Provider: Emir Espinal, [address] [place] [address], [id number]. tel:[phone] [facility], [address] [place] [address], [id number] , [place] tel:[phone] [facility] [place] No Information 2 Jonah Overberoberto carlos Kiara. [address] [place] [address], [id number], [place]. tel:[phone] Referring Provider: Emir Espinal, [address] [place] [address], [address]. tel:[phone] OFFICE VISIT, [facility] TELEMEDICINE [facility], [address] [place] [address], [id number] , [place] tel:[phone] [facility] [place] Back pain (chief complaint) Major depressive disorder, single episode, unspecifiedChr onic migraine without aura, intractable, without status migrainosusSac roiliitis, not elsewhere classifiedOthe r intervertebral disc degeneration, lumbar regionOther muscle spasmPostlamin ectomy syndrome, not elsewhere classifiedLong term (current) use of opiate analgesic Dec- 0 2 Van Overbeke Kiara. [address] [place] [address], [id number], [place]. tel:[phone] Consulting Provider: Lucas Talamantes, [facility]3 [address] Valerae, [address] [facility], [place], [address]. tel:[phone] ring Provider: Emir Espinal, [address] [place] [address], [address]. tel:[phone] OFFICE VISIT, [facility] TELEMEDICINE [facility], [address] [place] [address], [id number] , [place] tel:[phone] [facility] [place] Back pain (chief complaint) Major depressive disorder, single episode, unspecifiedChr onic migraine without aura, intractable, without status migrainosusSac roiliitis, not elsewhere classifiedOthe r intervertebral disc degeneration, lumbar regionPostlami nectomy syndrome, not elsewhere classifiedLong term (current) use of opiate analgesicOther muscle spasm Nov- 2 Van Overbeke Kiara. [address] [place] [address], [id number], [place]. tel:[phone] Consulting Provider: Lucas Talamantes, [facility] [address], [address] [facility], [place], [address]. tel:[phone] OFFICE/OUTPAT IENT VISIT, [facility], [address] [place] [address], [id number] , [place] tel:[phone] [facility] Back pain (chief complaint) Major depressive disorder, single episode, unspecifiedChr onic migraine without aura, intractable, without status migrainosusSac roiliitis, not elsewhere classifiedOthe r intervertebral disc degeneration, lumbar regionPostlami nectomy syndrome, not elsewhere classifiedLong term (current) use of opiate analgesicEncou nter for therapeutic drug level monitoring Sep-2 2 Van Overbeke Kiara. [address] [place] [address], [id number], [place]. tel:[phone] Consulting Provider: Lucas Talamantes, [facility] [address], [address], [place], [address]. tel:[phone] Provider: Emir Espinal, [address] [place] [address], [id number]. tel:[phone] [facility], [address] [place] [address], [id number] , [place] tel:[phone] [facility] No Information Sep-2 2 Jonah Overbeke Kiara. [address] [place] [address], [id number], [place]. tel:[phone] OFFICE VISIT, [facility] TELEMEDICINE [facility], [address] [place] [address], [id number] , [place] tel:[phone] [facility] Back Pain (chief complaint) Major depressive disorder, single episode, unspecifiedChr onic migraine without aura, intractable, without status migrainosusSac roiliitis, not elsewhere classifiedOthe r intervertebral disc degeneration, lumbar regionPostlami nectomy syndrome, not elsewhere classifiedLong term (current) use of opiate analgesic Sep-0 2 Keri Campos. [address], [place], [place], [id number], [place]. tel:[phone] Consulting Provider: Lucas Talamantes, [facility] [address], [address], [place], [address]. tel:[phone] ring Provider: Emir Espinal, [address] [place] [address], [address]. tel:[phone] OFFICE VISIT, EST TELEMEDICINE [facility], [address] [place], [place], [id number] , [place] [phone] [facility] [place] Back pain (chief complaint) Chronic migraine without aura, intractable, without status migrainosusSac roiliitis, not elsewhere classifiedOthe r intervertebral disc degeneration, lumbar regionPostlami nectomy syndrome, not elsewhere classifiedLong term (current) use of opiate analgesicMajor depressive disorder, single episode, unspecified 2 Van Overbeke Kiara. [address] [place] [address], [id number], [place]. tel:[phone] Consulting Provider: Lucas Talamantes [facility] [address], [address], [place], [address]. tel:[phone] ring Provider: Emir Espinal, [address] [place] [address], [address]. tel:[phone] OFFICE VISIT, EST TELEMEDICINE [facility], [address] [place] [address], [id number] , [place] [phone] [facility] [place] back pain (chief complaint) Chronic migraine without aura, intractable, without status migrainosusSac roiliitis, not elsewhere classifiedOthe r intervertebral disc degeneration, lumbar regionPostlami nectomy syndrome, not elsewhere classifiedLong term (current) use of opiate analgesic 2 Van Overbeke Kiara. [address] [place] [address], [id number], [place]. tel:[phone] Consulting [facility]: [facility] [address], [address], [place], [address]. tel:[phone] [facility], [address] [place] [address], [id number] , [place] tel:[phone] [facility] [place] No Information 2 Van Overbeke Kiara. [address] [place] [address], [id number], [place]. tel:[phone] Referring Provider: Emir Espinal, [address] [place] [address], [id number]. tel:[phone] OFFICE/OUTPAT IENT VISIT, [facility], [address] [place] [address], [id number] , tel:[phone] [facility] Back Pain (chief complaint) Chronic migraine without aura, intractable, without status migrainosusSac roiliitis, not elsewhere classifiedOthe r intervertebral disc degeneration, lumbar regionPostlami nectomy syndrome, not elsewhere classifiedLong term (current) use of opiate analgesicEncou nter for therapeutic drug level monitoring 2 Jonah Craig. [address] [place] [address], [id number], [place]. tel:[phone] Consulting Provider: Lucas Talamantes, [facility] [address], [address], [place], [address]. tel:[phone] ring Provider: Emir Espinal, [address] [place] [address], [address]. tel:[phone] OFFICE VISIT, [facility] TELEMEDICINE [facility], [address] [place] [address], [id number] , [place] tel:[phone] [facility] Back Pain (chief complaint) Chronic migraine without aura, intractable, without status migrainosusSac roiliitis, not elsewhere classifiedOthe r intervertebral disc degeneration, lumbar regionPostlami nectomy syndrome, not elsewhere classifiedLong term (current) use of opiate analgesic 2 Jonah Overbeke Kiara. [address] [place] [address], [id number], [place]. tel:[phone] Consulting Provider: [facility] [address], [address], [place], [address]. tel:[phone] OFFICE VISIT, [facility] TELEMEDICINE [facility], [address] [place] [address], [id number] , [place] tel:[phone] [facility] [place] Back Pain (chief complaint) Headache (chief complaint) Chronic migraine without aura, intractable, without status migrainosusSac roiliitis, not elsewhere classifiedOthe r intervertebral disc degeneration, lumbar regionPostlami nectomy syndrome, not elsewhere classifiedLong term (current) use of opiate analgesic Apr-2 2 Van Darbybeke Kiara. [address] [place] [address], [id number], [place]. tel:[phone] Consulting Provider: Lucas Talamantes, [facility] [address], [address], [place], [address]. tel:[phone] [facility], [address] [place] [address], [id number] , [place] [phone] [facility] Chronic migraine without aura, intractable, without status migrainosus Apr-0 2 Neydarrel Morgana. [address] [place] [address], [id number], [place]. tel:[phone] Referring Provider: Emir Espinal, [address] [place] [address], [address]. tel:[phone] OFFICE VISIT, EST TELEMEDICINE [facility], [address] [place] [address], [id number] , [place] tel:[phone] [facility] Back Pain (chief complaint) Chronic migraine without aura, intractable, without status migrainosusOth er intervertebral disc degeneration, lumbar regionLong term (current) use of opiate analgesicPostl aminectomy syndrome, not elsewhere classifiedSacr oiliitis, not elsewhere classified Mar- 2 Jonah Craig. [address] [place] [address], [id number], [place]. tel:[phone] Consulting Provider: Lucas Talamantes, [facility] [address], [address], [place], [address]. tel:[phone] ring Provider: Emir Espinal, [address] [place] [address], [id number]. tel:[phone] [facility], [address] [place] [address], [id number] , [place] tel:[phone] [facility] [place] No Information Mar- 2 Jonah Craig. [address] [place] [address], [id number], [place]. tel:[phone] OFFICE/OUTPAT IENT VISIT, [facility], [address] [place] [address], [id number] , [place] [phone] [facility] [place] Back Pain (chief complaint) Other intervertebral disc degeneration, lumbar regionLong term (current) use of opiate analgesicPostl aminectomy syndrome, not elsewhere classifiedSacr oiliitis, not elsewhere classifiedEnco unter for therapeutic drug level monitoringEnco unter for screening for other disorderChroni c migraine without aura, intractable, without status migrainosus 2 Jonah Craig. [address] [place] [address], [id number], [place]. tel:[phone] Consulting Provider: Lucas Talamantes, [facility] [address], [address], [place], [address]. tel:[phone] ring Provider: Emir Espinal, [address] [place] [address], [id number]. tel:[phone] OFFICE VISIT, [facility] TELEMEDICINE [facility], [address] [place] [address], [id number] , [place] tel:[phone] [facility] [place] Back Pain (chief complaint) Other intervertebral disc degeneration, lumbar regionLong term (current) use of opiate analgesicPostl aminectomy syndrome, not elsewhere classifiedSacr oiliitis, not elsewhere classified 2 Jonah Craig. [address] [place] [address], [id number], [place]. tel:[phone] Consulting Provider: Lucas Talamantes, [facility] [address], [address], [place], [address]. tel:[phone] OFFICE VISIT, EST TELEMEDICINE [facility], [address] [place] [address], [id number] , [place] tel:[phone] [facility] [place] Back Pain (chief complaint) Other intervertebral disc degeneration, lumbar regionLong term (current) use of opiate analgesicPostl aminectomy syndrome, not elsewhere classifiedSacr oiliitis, not elsewhere classified 1 Jonah Craig. [address] [place], [place], [id number], [place]. tel:[phone] Consulting Provider: Lucas Talamantes, [facility] [address], [address], [place], [address]. tel:[phone] OFFICE VISIT, [facility] TELEMEDICINE [facility], [address] [place] [address], [id number] , [place] tel:[phone] [facility] Back Pain (chief complaint) Other intervertebral disc degeneration, lumbar regionLong term (current) use of opiate analgesicPostl aminectomy syndrome, not elsewhere classifiedSacr oiliitis, not elsewhere classified 1 Jonah Craig. [address] [place] [address], [id number], [place]. tel:[phone] Consulting Provider: Lucas Talamantes [facility] [address], [address], [place], [address]. tel:[phone] ring Provider: Emir Espinal, [address] [place] [address], [address]. tel:[phone] OFFICE VISIT, [facility], [address] [place] [address], [id number] , [place] tel:[phone] [facility] [place] Back Pain (chief complaint) Other intervertebral disc degeneration, lumbar regionLong term (current) use of opiate analgesicPostl aminectomy syndrome, not elsewhere classifiedSacr oiliitis, not elsewhere classified 1 Jonah Craig. [address] [place] [address], [id number], [place]. tel:[phone] Consulting Provider: Lucas Talamantes [facility] [address], [address], [place], [address]. tel:[phone] OFFICE/OUTPAT IENT VISIT, [facility], [address] [place] [address], [id number] , [place] tel:[phone] [facility] [place] Back Pain (chief complaint) Other intervertebral disc degeneration, lumbar regionLong term (current) use of opiate analgesicPostl aminectomy syndrome, not elsewhere classifiedSacr oiliitis, not elsewhere classifiedEnco unter for therapeutic drug level monitoring Oct- 1 Jonah Craig. [address] [place] [address], [id number], [place]. tel:[phone] Consulting Provider: Lucas Talamantes, [facility] [address] [facility] [address], [place], [address]. tel:[phone] ring Provider: Emir Espinal, [address] [place] [address], [address]. tel:[phone] [facility], [address] [place] [address], [id number] , [place] tel:[phone] [facility] Encounter for therapeutic drug level monitoringLong term (current) use of opiate analgesic Oct- 1 Jonah Craig. [address] [place] [address], [id number], [place]. tel:[phone] Referring Provider: Emir Espinal, [address] [place] [address], [address]. 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 [address] [place] [address], [id number], [place]. tel:[phone] Consulting Provider: Lucas Talamantes, [facility] [place] [address] [facility] [address], [place], [address]. tel:[phone] ring Provider: Emir Espinal, [address] [place] [address], [address]. tel:[phone] OFFICE VISIT, EST TELEMEDICINE [facility], [address] [place] [address], [id number] , [place] tel:[phone] [facility] Back Pain (chief complaint) penitentiary (current) use of opiate analgesicPostl aminectomy syndrome, not elsewhere classifiedSacr oiliitis, not elsewhere classifiedOthe r intervertebral disc degeneration, lumbosacral region Aug- 1 Jonah Craig. [address] [place] [address], [id number], [place]. tel:[phone] Consulting Provider: Lucas Talamantes, [address] [facility], [place], [address]. tel:[phone] ring Provider: Emir Espinal, [address] [place] [address], [id number]. tel:[phone] [facility], [address] [place] [address], [id number] , [place] tel:[phone] [facility] Encounter for therapeutic drug level monitoringLong term (current) use of opiate analgesic 1 Jonah Craig. [address] [place] [address], [id number], [place]. tel:[phone] Referring Provider: Emir Espinal, [address] [place] [address], [address]. tel:[phone] OFFICE/OUTPAT IENT VISIT, EST [facility], [address] [place] [address], [id number] , [place] tel:[phone] [facility] Back Pain (chief complaint) penitentiary (current) use of opiate analgesicPostl aminectomy syndrome, not elsewhere classifiedSacr oiliitis, not elsewhere classifiedOthe r intervertebral disc degeneration, lumbosacral regionEncounte r for therapeutic drug level monitoring 1 Jonah Pastorberoberto carlos Craig. [address] [place] [address], [id number], [place]. tel:[phone] Consulting Provider: Lucas Talamantes, [address] Merc[address], [address]. tel:[phone] ring Provider: Emir Espinal, [address] [place] [address], [address]. tel:[phone] OFFICE VISIT, EST TELEMEDICINE [facility], [address] [place] [address], [id number] , [place] [phone] [facility] Back Pain (chief complaint) penitentiary (current) use of opiate analgesicPostl aminectomy syndrome, not elsewhere classifiedSacr oiliitis, not elsewhere classifiedOthe r intervertebral disc degeneration, lumbosacral region June- 1 Jonah Craig. [address] [place] [address], [id number], [place]. tel:[phone] Consulting Provider: Lucas Talamantes, [facility] [address] [place] [address], [place], [address]. tel:[phone] Provider: Emir Espinal, [address] [place] [address], [address]. tel:[phone] OFFICE VISIT, EST TELEMEDICINE [facility], [address] [place] [address], [id number] , [place] tel:[phone] [facility] Back Pain (chief complaint) Postlaminectom y syndrome, not elsewhere classifiedSacr oiliitis, not elsewhere classifiedOthe r intervertebral disc degeneration, lumbosacral regionLong term (current) use of opiate analgesic May- 1 Jonah Craig. [address] [place] [address], [id number], [place]. tel:[phone] Consulting Provider: Lucas Talamantes, [facility] [address] [place] [address], [place], [address]. tel:[phone] ring Provider: Emir Espinal, [address] [place] [address], [address]. tel:[phone] OFFICE VISIT, EST TELEMEDICINE [facility], [address] [place] [address], [id number] , [place] tel:[phone] [facility] [place] Back Pain (chief complaint) Postlaminectom y syndrome, not elsewhere classifiedSacr oiliitis, not elsewhere classifiedOthe r intervertebral disc degeneration, lumbosacral regionLong term (current) use of opiate analgesic Mar-3 0 1 Jonah Craig. [address] [place] [address], [id number], [place]. tel:[phone] Consulting Provider: Lucas Talamantes, [address] [facility] [address] [facility], [place], [address]. tel:[phone] ring Provider: Emir Espinal, [address] [place] [address], [address]. tel:[phone] OFFICE VISIT, EST TELEMEDICINE [facility], [address] [place] [address], [id number] , [place] tel:[phone] [facility] [place] Back Pain (chief complaint) Postlaminectom y syndrome, not elsewhere classifiedSacr oiliitis, not elsewhere classifiedOthe r intervertebral disc degeneration, lumbosacral regionLong term (current) use of opiate analgesic Mar- 1 Jonah Craig. [address] [place] [address], [id number], [place]. tel:[phone] Consulting Provider: Lucas Talamantes, [address] [address], [place], [address]. tel:[phone] ring Provider: Emir Espinal, [address] [place] [address], [id number]. 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 [address] [place] [address], [id number], [place]. tel:[phone] Consulting Provider: Lucas Talamantes, [facility] [address] [place] [address], [place], [address]. tel:[phone] ring Provider: Emir Espinal, [address] [place] [address], [address]. tel:[phone] OFFICE VISIT, EST TELEMEDICINE [facility], [address] [place] [address], [id number] , [place] [phone] [facility] Back Pain (chief complaint) penitentiary (current) use of opiate analgesicPostl aminectomy syndrome, not elsewhere classifiedSacr oiliitis, not elsewhere classifiedOthe r intervertebral disc degeneration, lumbosacral region 0 Jonah Craig. [address] [place] [address], [id number], [place]. tel:[phone] Consulting Provider: Lucas Talamantes, [address] [place] [address], [place], [address]. tel:[phone] ring Provider: Emir Espinal, [address] [place] [address], [address]. tel:[phone] OFFICE VISIT, EST TELEMEDICINE [facility], [address] [place] [address], [id number] , [place] tel:[phone] [facility] Back Pain (chief complaint) local intermodal truck driver (current) use of opiate analgesicPostl aminectomy syndrome, not elsewhere classifiedSacr oiliitis, not elsewhere classifiedOthe r intervertebral disc degeneration, lumbosacral region 0 Van Overbeke Kiara. [address] [place] [address], [id number], [place]. tel:[phone] Referring Provider: Emir Espinal, [address] [place] [address], [id number]. tel:[phone] OFFICE VISIT, [facility], [address] [place] [address], [id number] , [place] [phone] [facility] Back Pain (chief complaint) penitentiary (current) use of opiate analgesicPostl aminectomy syndrome, not elsewhere classifiedSacr oiliitis, not elsewhere classifiedOthe r intervertebral disc degeneration, lumbosacral region 0 Van Overbeke Kiara. [address] [place] [address], [id number], [place]. tel:[phone] Referring Provider: Emir Espinal, [address] [place] [address], [address]. tel:[phone] OFFICE VISIT, [facility], [address] [place] [address], [id number] , [place] [phone] [facility] Back Pain (chief complaint) local intermodal truck driver (current) use of opiate analgesicPostl aminectomy syndrome, not elsewhere classifiedSacr oiliitis, not elsewhere classifiedOthe r intervertebral disc degeneration, lumbosacral region Oct- 0 Jonah Overbeke Kiara. [address] [place] [address], [id number], [place]. tel:[phone] Referring Provider: Emir Espinal, [address] [place] [address], [id number]. 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 [address] [place] [address], [id number], [place]. tel:[phone] Referring Provider: Emir Espinal, [address] [place] [address], [id number]. 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 [address] [place] [address], [id number], [place]. tel:[phone] Consulting Provider: Lucas AU, [facility] [address], [place], [address]. tel:[phone] ring Provider: Emir Espinal, [address] [place] [address], [address]. tel:[phone] OFFICE VISIT, EST TELEMEDICINE [facility], [address] [place] [address], [id number] , [place] tel:[phone] [facility] Back Pain (chief complaint) penitentiary (current) use of opiate analgesicPostl aminectomy syndrome, not elsewhere classifiedSacr oiliitis, not elsewhere classifiedOthe r intervertebral disc degeneration, lumbosacral region 0 Van Overbeke Kiara. [address] [place] [address], [id number], [place]. tel:[phone] Referring Provider: Emir Espinal, [address] [place] [address], [id number]. tel:[phone] OFFICE VISIT, EST TELEMEDICINE [facility], [address] [place] [address], [id number] , [place] tel:[phone] [facility] Back Pain (chief complaint) penitentiary (current) use of opiate analgesicPostl aminectomy syndrome, not elsewhere classifiedSacr oiliitis, not elsewhere classifiedOthe r intervertebral disc degeneration, lumbosacral region 0-202 0 Van Overbeke Kiara. [address] [place] [address], [id number], [place]. tel:[phone] Consulting Provider: Lucas AU, [facility] [address] [place] [address], [place], [address]. tel:[phone] ring Provider: Emir Espinal, [address] [place] [address], [address]. tel:[phone] OFFICE VISIT, 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 [address] [place] [address], [id number], [place]. tel:[phone] Consulting Provider: Lucas AU, [address] [place] [address], [place], [address]. tel:[phone] ring Provider: Emir Espinal, [address] [place] [address], [id number]. tel:[phone] OFFICE VISIT, 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 [address] [place], [place], [id number], [place]. tel:[phone] Consulting Provider: Lucas AU, [address] [place] [address], [place], [address]. tel:[phone] ring Provider: Emir Espinal, [address] [place] [address], [id number]. tel:[phone] OFFICE/OUTPAT IENT VISIT, EST [facility], [address] [place] [address], [id number] , [place] tel:[phone] [facility] Back [facility] (chief complaint) penitentiary (current) use of opiate analgesicEncou nter for therapeutic drug level monitoringPost laminectomy syndrome, not elsewhere classifiedSacr oiliitis, not elsewhere classifiedOthe r intervertebral disc degeneration, lumbosacral region 0 Jonah Pastorberoberto carlos Craig. [address], [place], [id number], [place]. [phone] Consulting Provider: Lucas AU, [address] [address], [place], [address]. tel:[phone] ring Provider: Emir Espinal, [address] [place] [address], [address]. 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 [address] [place] [address], [id number], [place]. tel:[phone] Consulting Provider: Lucas AU, [facility] [address] [address], [place], [address]. tel:[phone] ring Provider: Emir Espinal, [address] [place] [address], [id number]. tel:[phone] OFFICE/OUTPAT IENT VISIT, [facility], [address] [place] [address], [id number] , [place] [phone] [facility] Back [facility] (chief complaint) penitentiary (current) use of opiate analgesicSacro iliitis, not elsewhere classifiedOthe r intervertebral disc degeneration, lumbosacral regionPostlami nectomy syndrome, not elsewhere classified 0 Jonah Craig. [address], [place], [id number], [place]. tel:[phone] Consulting Provider: Lucas AU, [facility] [address] [address], [place], [address]. tel:[phone] ring Provider: Emir Espinal, [address] [place] [address], [id number]. tel:[phone] OFFICE/OUTPAT IENT VISIT, [facility], [address] [place] [address], [id number] , [place] tel:[phone] [facility] Back Pain (chief complaint) penitentiary (current) use of opiate analgesicLow back painSacroiliit is, not elsewhere classifiedPost laminectomy syndrome, not elsewhere classifiedOthe r intervertebral disc degeneration, lumbosacral region Jonah Craig. [address], [place], [id number], [place]. tel:[phone] Consulting Provider: Lucas AU, [address] [place] [address], [place], [address]. tel:[phone] ring Provider: Emir Espinal, [address] [place] [address], [address]. 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 [address] [place] [address], [id number], [place]. tel:[phone] Consulting Provider: Lucas AU, [address] Mercado [facility] [place] [address], [place], [address]. tel:[phone] ring Provider: Emir Espinal, [address] [place] [address], [address]. tel:[phone] OFFICE/OUTPAT IENT VISIT, [facility], [address] [place] [address], [id number] , [place] tel:[phone] [facility] Back Pain (chief complaint) Postlaminectom y syndrome, not elsewhere classifiedOthe r intervertebral disc degeneration, lumbosacral regionSacroili itis, not elsewhere classifiedLow back painLong term (current) use of opiate analgesicEncou nter for therapeutic drug level monitoring Jonah Craig. [address] [place] [address], [id number], [place]. tel:[phone] Consulting Provider: Lucas AU, [address]el Mercado [facility] [place] [address], [place], [address]. tel:[phone] ring Provider: Emir Espinal, [address] [place] [address], [address]. tel:[phone] OFFICE/OUTPAT IENT VISIT, [facility], [address] [place] [address], [id number] , [place] tel:[phone] [facility] Back Pain (chief complaint) Postlaminectom y syndrome, not elsewhere classifiedOthe r intervertebral disc degeneration, lumbosacral regionSacroili itis, not elsewhere classifiedLow back painLong term (current) use of opiate analgesic Jonah Overbeke Kiara. [address] [place] [address], [id number], [place]. tel:[phone] Consulting Provider: Lucas AU, [address] [facility], [place], [address]. tel:[phone] ring Provider: Emir Espinal, [address] [place] [address], [id number]. tel:[phone] OFFICE/OUTPAT IENT VISIT, [facility], [address] [place] [address], [id number] , [place] [phone] [facility] Back Pain (chief complaint) Postlaminectom y syndrome, not elsewhere classifiedOthe r intervertebral disc degeneration, lumbosacral regionSacroili itis, not elsewhere classifiedLow back painLong term (current) use of opiate analgesic Luisito-0 2201 9 Van Overbeke Kiara. [address] [place] [address], [id number], [place]. tel:[phone] Consulting Provider: Lucas AU, [address] [address], [place], [address]. tel:[phone] Provider: Emir Espinal, [address] [place] [address], [address]. tel:[phone] OFFICE/OUTPAT IENT VISIT, [facility], [address] [place] [address], [id number] , [place] tel:[phone] [facility] [place] Back Pain (chief complaint) Postlaminectom y syndrome, not elsewhere classifiedOthe r intervertebral disc degeneration, lumbosacral regionSacroili itis, not elsewhere classifiedLow back painLong term (current) use of opiate analgesic May-0 9 Van Overbeke Kiara. [address] [place] [address], [id number], [place]. tel:[phone] Consulting Provider: Lucas AU, [address] [place] [address], [place], [address]. tel:[phone] Provider: Emir Espinal, [address] [place] [address], [address]. tel:[phone] OFFICE/OUTPAT IENT VISIT, [facility], [address] [place] [address], [id number] , [place] [phone] [facility] [place] (chief complaint) Postlaminectom y syndrome, not elsewhere classifiedOthe r intervertebral disc degeneration, lumbosacral regionSacroili itis, not elsewhere classifiedLow back painLong term (current) use of opiate analgesicEncou nter for therapeutic drug level monitoring Van Overberoberto carlos Craig. [address] [place] [address], [id number], [place]. tel:[phone] Consulting Provider: Lucas AU, [address], [address]. tel:[phone] ring Provider: Emir Espinal, [address] [place] [address], [id number]. tel:[phone] OFFICE/OUTPAT IENT VISIT, [facility], [address] [place] [address], [id number] , [place] [phone] [facility] Back Pain (chief complaint) Postlaminectom y syndrome, not elsewhere classifiedOthe r intervertebral disc degeneration, lumbosacral regionSacroili itis, not elsewhere classifiedLow back painLong term (current) use of opiate analgesic Van Overbeke Kiara. [address] [place] [address], [id number], [place]. tel:[phone] Consulting Provider: Lucas AU, [address] [place] [address], [place], [address]. tel:[phone] ring Provider: Emir Espinal, [address] [place] [address], [address]. tel:[phone] OFFICE/OUTPAT IENT VISIT, [facility], [address] [place] [address], [id number] , [place] tel:[phone] [facility] Back Pain (chief complaint) Sacroiliitis, not elsewhere classifiedPost laminectomy syndrome, not elsewhere classifiedOthe r intervertebral disc degeneration, lumbosacral regionLow back painLong term (current) use of opiate analgesic Dec-0 8 Jonah Craig. [address] [place] [address], [id number], [place]. tel:[phone] Consulting Provider: Lucas AU, [address] [facility], [place], [address]. tel:[phone] ring Provider: Emir Espinal, [address] [place] [address], [address]. tel:[phone] OFFICE/OUTPAT IENT VISIT, [facility], [address] [place] [address], [id number] , [place] [phone] [facility] (chief complaint) Sacroiliitis, not elsewhere classifiedPost laminectomy syndrome, not elsewhere classifiedOthe r intervertebral disc degeneration, lumbosacral regionLow back pain Nov-0 8 Jonah Craig. [address] [place] [address], [id number], [place]. tel:[phone] Consulting Provider: Lucas AU, [address] [place] [address], [place], [address]. tel:[phone] ring Provider: Emir Espinal, [address] [place] [address], [id number]. tel:[phone] OFFICE/OUTPAT IENT VISIT, [facility], [address] [place] [address], [id number] , [place] [phone] [facility] Back Pain (chief complaint) Sacroiliitis, not elsewhere classifiedPost laminectomy syndrome, not elsewhere classifiedOthe r intervertebral disc degeneration, lumbosacral regionLow back pain 8 Jonah Craig. [address] [place] [address], [id number], [place]. tel:[phone] Consulting Provider: Lucas AU, [address], [place], [address]. tel:[phone] ring Provider: Emir Espinal, [address] [place] [address], [address]. tel:[phone] OFFICE/OUTPAT IENT VISIT, [facility], [address] [place] [address], [id number] , [place] tel:[phone] [facility] Back Pain (chief complaint) Sacroiliitis, not elsewhere classifiedPost laminectomy syndrome, not elsewhere classifiedOthe r intervertebral disc degeneration, lumbosacral regionLow back pain 8 Jonah Craig. [address] [place] [address], [id number], [place]. tel:[phone] Consulting Provider: Lucas AU, [address] [facility], [place], [address]. tel:[phone] ring Provider: Emir Espinal, [address] [place] [address], [address]. tel:[phone] OFFICE/OUTPAT IENT VISIT, [facility], [address] [place] [address], [id number] , [place] tel:[phone] [facility] Back Pain (chief complaint) Sacroiliitis, not elsewhere classifiedPost laminectomy syndrome, not elsewhere classifiedLow back painOther intervertebral disc degeneration, lumbosacral region 8 Jonah Craig. [address] [place] [address], [id number], [place]. tel:[phone] Consulting Provider: Lucas AU, [facility] [address] [facility], [place], [address]. tel:[phone] ring Provider: Emir Espinal, [address] [place] [address], [address]. tel:[phone] OFFICE/OUTPAT IENT VISIT, [facility], [address] [place] [address], [id number] , [place] tel:[phone] [facility] Back Pain (chief complaint) Sacroiliitis, not elsewhere classifiedPost laminectomy syndrome, not elsewhere classifiedLow back painOther intervertebral disc degeneration, lumbosacral region Apr-0 8 Jonah Craig. [address] [place] [address], [id number], [place]. tel:[phone] Consulting Provider: Lucas AU, [address], [address]. tel:[phone] ring Provider: Emir Espinal, [address] [place] [address], [address]. tel:[phone] OFFICE/OUTPAT IENT VISIT, [facility], [address] [place] [address], [id number] , [place] tel:[phone] [facility] Back Pain (chief complaint) Postlaminectom y syndrome, not elsewhere classifiedLow back painSacroiliit is, not elsewhere classified Feb-0 8 Jonah Craig. [address] [place] [address], [id number], [place]. tel:[phone] Consulting Provider: Lucas AU, [facility] [address] [place] [address], [place], [address]. tel:[phone] ring Provider: Emir Espinal, [address] [place] [address], [address]. tel:[phone] OFFICE/OUTPAT IENT VISIT, [facility], [address] [place] [address], [id number] , [place] [phone] [facility] [place] Back Pain (chief complaint) Postlaminectom y syndrome, not elsewhere classifiedSacr oiliitis, not elsewhere classifiedOthe r intervertebral disc degeneration, lumbosacral region 8 Van Overbeke Kiara. [address] [place] [address], [id number], [place]. tel:[phone] Referring Provider: Emir Espinal, [address] [place] [address], [address]. tel:[phone] OFFICE/OUTPAT IENT VISIT, [facility], [address] [place] [address], [id number] , [place] tel:[phone] [facility] Back Pain (chief complaint) Postlaminectom y syndrome, not elsewhere classifiedSacr oiliitis, not elsewhere classifiedOthe r intervertebral disc degeneration, lumbosacral region Van Overbeke Kiara. [address] [place] [address], [id number], [place]. tel:[phone] Referring Provider: Emir Espinal, [address] [place] [address], [address]. tel:[phone] OFFICE/OUTPAT IENT VISIT, EST [facility], [address] [place] [address], [id number] , [place] [phone] [facility] (chief complaint) Postlaminectom y syndrome, not elsewhere classifiedSacr oiliitis, not elsewhere classifiedOthe r intervertebral disc degeneration, lumbosacral region Van Overbeke Kiara. [address] [place] [address], [id number], [place]. tel:[phone] Consulting Provider: Lucas Talamantes [facility], [facility] [place] [address] [facility] [address] [address], [place], [address]. tel:[phone] ring Provider: Emir Espinal, [address] [place] [address], [address]. tel:[phone] OFFICE/OUTPAT IENT VISIT, EST [facility], [address] [place] [address], [id number] , [place] tel:[phone] [facility] (chief complaint) Postlaminectom y syndrome, not elsewhere classifiedOthe r intervertebral disc degeneration, lumbosacral regionSacroili itis, not elsewhere classifiedLong term (current) use of opiate analgesic Jonah Craig. [address] [place] [address], [id number], [place]. tel:[phone] Referring Provider: Emir Espinal, [address] [place] [address], [address]. tel:[phone] OFFICE/OUTPAT IENT VISIT, EST [facility], [address] [place] [address], [id number] , [place] tel:[phone] [facility] Back Pain (chief complaint) Postlaminectom y syndrome, not elsewhere classifiedOthe r intervertebral disc degeneration, lumbosacral regionSacroili itis, not elsewhere classified 7 Ney Quinones. [address] [place] [address], [id number], [place]. tel:[phone] Consulting Provider: Lucas AU, [facility] [place] [address] [facility] [address] [address], [place], [address]. tel:[phone] ring Provider: Emir Espinal, [address] [place] [address], [address]. tel:[phone] OFFICE/OUTPAT IENT VISIT, [facility], [address] [place] [address], [id number] , [place] tel:[phone] [facility] [place] Back Pain (chief complaint) Postlaminectom y syndrome, not elsewhere classifiedOthe r intervertebral disc degeneration, lumbosacral region Jonah Craig. [address] [place] [address], [id number], [place]. tel:[phone] Referring Provider: Emir Espinal, [address] [place] [address], [address]. tel:[phone] OFFICE/OUTPAT IENT VISIT, [facility], [address] [place] [address], [id number] , [place] tel:[phone] [facility] [place] Back Pain (chief complaint) Postlaminectom y syndrome, not elsewhere classifiedOthe r intervertebral disc degeneration, lumbosacral region 7 Ney Quinones. [address] [place] [address], [id number], [place]. tel:[phone] Consulting Provider: Lucas AU, [address] [address], [place], [address]. tel:[phone] Provider: Emir Espinal, [address] [place] [address], [address]. tel:[phone] OFFICE/OUTPAT IENT VISIT, [facility], [address] [place] [address], [id number] , [place] tel:[phone] [facility] Ayleen low back pain (chief complaint) Postlaminectom y syndrome, not elsewhere classifiedLow back pain 7 Ney Quinones. [address] [place], [place], [id number], [place]. tel:[phone] Consulting Provider: Lucas AU, [facility] [address] [address], [place], [address]. tel:[phone] ring Provider: Emir Espinal, [address] [place] [address], [address]. tel:[phone] OFFICE/OUTPAT IENT VISIT, [facility], [address] [place] [address], [id number] , [place] tel:[phone] [facility] [place] low back pain (chief complaint) Low back painPostlamine ctomy syndrome, not elsewhere classified Ney Quinones. [address] [place], [place], [id number], [place]. tel:[phone] Referring Provider: Emir Espinal, [address] [place] [address], [address]. tel:[phone] OFFICE/OUTPAT IENT VISIT, [facility], [address] [place] [address], [id number] , [place] tel:[phone] [facility] low back pain (chief complaint) Low back painPostlamine ctomy syndrome, not elsewhere classified Ney Quinones. [address] [place] [address], [id number], [place]. tel:[phone] Consulting Provider: Lucas AU, [facility] [address] [address], [place], [address]. tel:[phone] Provider: Emir Espinal, [address] [place] [address], [address]. tel:[phone] OFFICE/OUTPAT IENT VISIT, [facility], [address] [place] [address], [id number] , [place] tel:[phone] [facility] Back Pain (chief complaint) Postlaminectom y syndrome, not elsewhere classified Ney Quinones. [address] [place] [address], [id number], [place]. tel:[phone] Consulting Provider: Lucas AU, [facility] [address] [address] [address] [place] [address] [place] [facility], [place], [address]. tel:[phone] ring Provider: Emir Espinal, [address] [place] [address], [address]. tel:[phone] OFFICE/OUTPAT IENT VISIT, [facility], [address] [place] [address], [id number] , [place] tel:[phone] [facility] Back Pain (chief complaint) Postlaminectom y syndrome, not elsewhere classifiedLong term (current) use of opiate analgesic Ever Medina. [address] [place] [address], [id number], [place]. tel:[phone] Consulting Provider: Lucas AU, [facility] [address] [place] [facility], [place], [address]. tel:[phone] ring Provider: Emir Espinal, [address] [place] [address], [address]. tel:[phone] OFFICE/OUTPAT IENT VISIT, [facility], [address] [place] [address], [id number] , [place] [phone] [facility] low back pain (chief complaint) Low back painPostlamine ctomy syndrome, not elsewhere classified Ney Quinones. [address] [place] [address], [id number], [place]. tel:[phone] Consulting Provider: Lucas AU, [address] [place] [address], [place], [address]. tel:[phone] ring Provider: Emir Espinal, [address] [place] [address], [address]. tel:[phone] OFFICE/OUTPAT IENT VISIT, [facility], [address] [place] [address], [id number] , [place] tel:[phone] [facility] low back pain (chief complaint) Low back painPostlamine ctomy syndrome, not elsewhere classified Ney Quinones. [address] [place] [address], [id number], [place]. tel:[phone] Consulting Provider: Lucas AU, [facility] [address] [place] [facility], [place], [address]. [phone] ring Provider: Emir Espinal, [address] [place] [address], [address]. [phone] OFFICE/OUTPAT IENT VISIT, [facility], [address] [place] [address], [id number] , [place] tel:[phone] [facility] low back pain (chief complaint) Low back painPostlamine ctomy syndrome, not elsewhere classified 6 Ney Stacie. [address] [place], [place], [id number], [place]. [phone] Consulting Provider: Lucas AU, [facility] [address] [address], [place], [place], [facility]. tel:[phone] ring Provider: Emir Espinal, [address] [place] [address], [address]. tel:[phone] OFFICE/OUTPAT IENT VISIT, [facility], [address] [place] [address], [id number] , [place] tel:[phone] [facility] low back pain (chief complaint) Other cervical disc degeneration, high cervical regionLow back painPostlamine ctomy syndrome, not elsewhere classified 6 Ney Stacie. [address] [place], [place], [id number], [place]. [phone] Consulting Provider: Lucas AU, [facility] [address] [place] [facility], [place], [address]. tel:[phone] ring Provider: Emir Espinal, [address] [place] [address], [address]. [phone] OFFICE/OUTPAT IENT VISIT, [facility], [address] [place] [address], [id number] , [place] tel:[phone] [facility] Neck pain (chief complaint) low back pain (chief complaint) Other cervical disc degeneration, high cervical regionLow back painPostlamine ctomy syndrome, not elsewhere classified Oct 0 6 Ney Quinones. [address] [place] [address], [id number], [place]. tel:[phone] Consulting Provider: Lucas AU, [facility] [address], [place], [address]. tel:[phone] ring Provider: Emir Espinal, [address] [place] [address], [address]. tel:[phone] OFFICE/OUTPAT IENT VISIT, [facility], [address] [place] [address], [id number] , [place] tel:[phone] [facility] low back pain (chief complaint) Postlaminectom y syndrome, not elsewhere classifiedLow back painLong term (current) use of opiate analgesic Oct- 6 Yasir Campos. [address] [place] [address], [id number], [place]. tel:[phone] Consulting Provider: Lucas AU, [address] [address], [place], [address]. tel:[phone] ring Provider: Emir Espinal, [address] [place] [address], [address]. tel:[phone] OFFICE/OUTPAT IENT VISIT, [facility], [address] [place] [address], [id number] , [place] tel:[phone] [facility] low back pain (chief complaint) Postlaminectom y syndrome, not elsewhere classifiedLow back pain 6 Yasir Campos. [address] [place] [address], [id number], [place]. tel:[phone] Referring Provider: Emir Espinal, [address] [place] [address], [address]. tel:[phone] OFFICE/OUTPAT IENT VISIT, EST [facility], [address] [place], [place], [id number] , [place] [phone] [facility] [place] low back pain (chief complaint) Postlaminectom y syndrome, not elsewhere classifiedLow back pain 6 Yasir Campos. [address] [place], [place], [id number], [place]. tel:[phone] Consulting Provider: Lucas AU, [address], [place], [address]. tel:[phone] ring Provider: Emir Espinal, [address] [place] [address], [id number]. tel:[phone] OFFICE/OUTPAT IENT VISIT, [facility], [address], [place], [id number] , [place] [phone] [facility] Ayleen low back pain (chief complaint) Low back painPostlamine ctomy syndrome, not elsewhere classified 6 Ney Stacie. [address] [place], [place], [id number], [place]. tel:[phone] Consulting Provider: Lucas AU, [address] [place] [facility], [place], [address]. tel:[phone] ring Provider: Emir Espinal, [address] [place], [address]. tel:[phone] OFFICE/OUTPAT IENT VISIT, [facility], [address], [place], [id number] , [place] [phone] [facility] Ayleen low back pain (chief complaint) Low back painPostlamine ctomy syndrome, not elsewhere classified Ney Stacie. [address] [place], [place], [id number], [place]. tel:[phone] Consulting Provider: Lucas AU, [address], [place], [address]. tel:[phone] ring Provider: Emir Espinal, [address] [place] [address], [address]. tel:[phone] OFFICE/OUTPAT IENT VISIT, [facility], [address] [place] [address], [id number] , [place] [phone] [facility] [place] low back pain (chief complaint) Postlaminectom y syndrome, not elsewhere classifiedLow back pain May- 6 Yasir Beth. [address] [place] [address], [id number], [place]. tel:[phone] Consulting Provider: Lucas AU, [address] [place] [address], [place], [address]. tel:[phone] ring Provider: Emir Espinal, [address] [place] [address], [address]. tel:[phone] OFFICE/OUTPAT IENT VISIT, [facility], [address] [place] [address], [id number] , [place] tel:[phone] [facility] low back pain (chief complaint) Low back painPostlamine ctomy syndrome, not elsewhere classified Apr- 6 Ney Quinones. [address] [place] [address], [id number], [place]. tel:[phone] Consulting Provider: Lucas AU, [address], [place], [address]. tel:[phone] ring Provider: Emir Espinal, [address] [place] [address], [address]. tel:[phone] OFFICE/OUTPAT IENT VISIT, [facility], [address] [place] [address], [id number] , [place] tel:[phone] [facility] low back pain (chief complaint) Low back pain 6 Ney Stacie. [address] [place], [place], [id number], [place]. tel:[phone] Consulting Provider: Lucas AU, [facility] [address], [place], [address]. tel:[phone] ring Provider: Emir Espinal, [address] [place] [address], [address]. tel:[phone] OFFICE/OUTPAT IENT VISIT, [facility], [address] [place] [address], [id number] , [place] [phone] [facility] low back pain (chief complaint) Low back painPostlamine ctomy syndrome, not elsewhere classified 6 Ney Stacie. [address] [place], [place], [id number], [place]. tel:[phone] Consulting Provider: Lucas AU, [address], [place], [address]. tel:[phone] ring Provider: Emir Espinal, [address] [place] [address], [address]. tel:[phone] OFFICE/OUTPAT IENT VISIT, [facility], [address] [place] [address], [id number] , [place] [phone] [facility] low back pain (chief complaint) Low back painPostlamine ctomy syndrome, not elsewhere classified 5 Ney Stacie. [address] [place] [address], [id number], [place]. tel:[phone] Consulting Provider: Lucas AU, [facility] [address], [place], [address]. tel:[phone] ring Provider: Emir Espinal, [address] [place], [address]. [phone] OFFICE/OUTPAT IENT VISIT, EST [facility], [address] [place] [address], [id number] , [place] tel:[phone] [facility] [place] low back pain (chief complaint) Trochanteric bursitis, right hipTrochanteri c bursitis, left hipLow back painPostlamine ctomy syndrome, not elsewhere classified 5 Ney Stacie. [address] [place], [place], [id number], [place]. tel:[phone] Consulting Provider: Lucas AU, [address], [place], [address]. [phone] ring Provider: Emir Espinal, [address] [place] [address], [address]. [phone] OFFICE/OUTPAT IENT VISIT, [facility], [address] [place] [address], [id number] , [place] [phone] [facility] low back pain (chief complaint) Low back painPostlamine ctomy syndrome, not elsewhere classified 5 Ney Morgana. [address] [place], [place], [id number], [place]. tel:[phone] Consulting Provider: Lucas AU, [facility] [address], [place], [address]. tel:[phone] ring Provider: Emir Espinal, [address] [place] [address], [address]. tel:[phone] OFFICE/OUTPAT IENT VISIT, [facility], [address] [place] [address], [id number] , [place] tel:[phone] [facility] complaint) LumbagoPostlam inectomy syndrome of lumbar region Sep-2 1-201 5 Ney Quinones. [address] [place], [place], [id number], [place]. tel:[phone] Consulting Provider: Lucas AU, [facility] [address], [place], [address]. tel:[phone] ring Provider: Emir Espinal, [address] [place] [address], [address]. 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 [address] [place], [place], [id number], [place]. tel:[phone] Consulting Provider: Lucas AU, [address] [place] [facility], [place], [address]. tel:[phone] ring Provider: Emir Espinal, [address] [place] [address], [address]. tel:[phone] OFFICE/OUTPAT IENT VISIT, [facility], [address] [place] [address], [id number] , [place] tel:[phone] [facility] low back pain (chief complaint) LumbagoPostlam inectomy syndrome of lumbar region Aug-0 3-201 5 Ney Quinones. [address] [place], [place], [id number], [place]. tel:[phone] Consulting Provider: Lucas AU, [address], [place], [address]. tel:[phone] ring Provider: Emir Espinal, [address] [place] [address], [address]. tel:[phone] OFFICE/OUTPAT IENT VISIT, [facility], [address] [place] [address], [id number] , [place] tel:[phone] [facility] Back Pain (chief complaint) Lumbar failed back surgery syndrome 0 5 No Information Consulting Provider: Lucas Talamantes PAC, [facility] [place] [address] [facility] 675 [facility] [address], [place], [address]. tel:[phone] Provider: Emir Espinal, [address] [place] [address], [address]. 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 tel:[phone] OFFICE/OUTPAT IENT VISIT, [facility], [address] [place] [address], [id number] , [place] tel:[phone] [facility] low back pain (chief complaint) Lumbar failed back surgery syndrome Jul-0 5 No Information Referring Provider: Emir Espinal, [address] [place] [address], [address]. tel:[phone] OFFICE/OUTPAT IENT VISIT, [facility], [address] [place] [address], [id number] , [place] tel:[phone] [facility] Back Pain (chief complaint) Lumbar failed back surgery syndromeEncoun ter for current correction use of high risk medication 0 5 No Information Referring Provider: Emir Espinal, [address] [place] [address], [address]. tel:[phone] Family History Family Member Type Diagnosis Age At Onset No Information Payers Payer name Insurance type Covered constitution party ID Authoriza tion(s) No Information Social History Type Description Quantity Date Captured Comments Alcohol Use Details Unknown Caffeine Use Details Unknown Tobacco Use Status No Information Smoking Status No Information Sex Female Chief Complaint And Reason For Visit No Information Reason For Referral Reason For Referral No Information Plan Of Treatment Date Type Action Status Goal FIT-DNA. Due on due Goal PHQ-9. Due on du e Goal Order Annual PT. Due on due Goal Height. Due on d ue Goal Zoster vaccine ( ). Due on due Goal Review Allergy List. Due on due Goal Update Social Hi story. Due on due Goal Medication Recon ciliation. Due on due Goal DIDACTIC PROGRAM IN DIETETICS DIRECTOR Paperwork. Due on due Goal Unhealthy drug [...] Goal Weight. Due on d ue Goal SENIOR ANIMAL TRAINER Scanned. Due on due Goal AST (SGOT). Due on due Goal Hepatitis C scre ening. Due on due Goal DIDACTIC PROGRAM IN DIETETICS DIRECTOR Paperwork. Due on due Goal OARS. Due [...] Goal Weight. Due on d ue Goal SENIOR ANIMAL TRAINER Scanned. Due on due Goal Lipid panel. [...] Goal Weight. Due on d ue Goal DIDACTIC PROGRAM IN DIETETICS DIRECTOR Paperwork. Due on due Goal SENIOR ANIMAL TRAINER Scanned. Due on due Goal Hepatitis C [...] Lifestyle education regardin g diet completed Goal Creatinine. Due on due Goal OARS. Due on due Goal DIDACTIC PROGRAM IN DIETETICS DIRECTOR Paperwork. Due on due Goal FIT. Due [...] due Goal UDT. Due on due Goal SENIOR ANIMAL TRAINER Scanned. Due on due Goal AST (SGOT). Due on due Goal Tobacco Use. Due on due Goal ALT (SGPT). Due on due Goal FIT-DNA. Due on due Goal Review Allergy List. Due on due Goal Hepatitis C scre ening. Due on due Goal OARS. Due on due Goal ALT (SGPT). Due on due Goal Creatinine. Due on due Goal DIDACTIC PROGRAM IN DIETETICS DIRECTOR Paperwork. Due on due Goal UDT. Due on due Goal AST (SGOT). Due on due Goal Order Annual PT. Due on due Goal SENIOR ANIMAL TRAINER Scanned. Due on due Goal Height. Due [...] Goal AST (SGOT). Due on due Goal DIDACTIC PROGRAM IN DIETETICS DIRECTOR Paperwork. Due on due Goal Height. Due on d ue Goal ALT (SGPT). Due on due Goal SENIOR ANIMAL TRAINER Scanned. Due on due Goal Creatinine. Due on due Goal OARS. Due on due Goal CT-Colonography. Due on due Goal Order Annual PT. Due on due Goal Tobacco Use. Due on due Goal Update Social Hi story. Due on due Goal DIDACTIC PROGRAM IN DIETETICS DIRECTOR Paperwork. Due on due Goal HPV. Due on due Goal OARS. Due on due Goal UDT. Due on due Goal FIT. Due on due Goal SENIOR ANIMAL TRAINER Scanned. Due on due Goal PHQ-9. Due [...] Goal Weight. Due on d ue Goal SENIOR ANIMAL TRAINER Scanned. Due on due Goal AST (SGOT). Due on due Goal Tobacco Use. Due on due Goal DIDACTIC PROGRAM IN DIETETICS DIRECTOR Paperwork. Due on due Goal Medication Recon [...] vaccine ( 1st). Due on due Goal ALT (SGPT). Due on due Goal OARS. Due on due Goal Unhealthy drug u se screening. Due on due Goal DIDACTIC PROGRAM IN DIETETICS DIRECTOR Paperwork. Due on due Goal PHQ-9. Due on du e Goal FIT-DNA. Due on due Goal SENIOR ANIMAL TRAINER Scanned. Due on due Goal CT-Colonography. Due [...] Order Annual PT. Due on due Goal SENIOR ANIMAL TRAINER Scanned. Due on due Goal PHQ-9. Due on du e Goal Zoster vaccine ( 1st). Due on due Goal Update Social Hi story. Due on due Goal OARS. Due on due Goal CT-Colonography. Due on due Goal HPV. Due on due Goal FIT-DNA. Due on due Goal DIDACTIC PROGRAM IN DIETETICS DIRECTOR Paperwork. Due on due Goal Lipid panel. Due on due Goal AST (SGOT). Due on 24 due Goal Unhealthy drug [...] Goal Weight. Due on d ue Goal SENIOR ANIMAL TRAINER Scanned. Due on due Goal HPV. Due [...] Goal Height. Due on d ue Goal DIDACTIC PROGRAM IN DIETETICS DIRECTOR Paperwork. Due on due Goal Review Allergy List. Due on due Goal Zoster vaccine ( 1st). Due on due Goal FIT-DNA. Due on due Goal Order Annual PT. Due on due Goal Creatinine. Due on due Goal ALT (SGPT). Due on due Goal Hepatitis C scre [...] vaccine ( 1st). Due on due Goal SENIOR ANIMAL TRAINER Scanned. Due on due Goal Tobacco Use. Due on due Goal OARS. Due on due Goal FIT. Due on due Goal DIDACTIC PROGRAM IN DIETETICS DIRECTOR Paperwork. Due on due Goal Height. Due on d ue Goal UDT. Due on due Goal Order Annual PT. Due on due Goal FIT-DNA. Due on due Goal Medication Recon ciliation. Due on due Goal Review Allergy List. Due on due Goal Unhealthy drug u se screening. Due on due Goal HPV. Due on [...] ue Goal CT-Colonography. Due on due Goal PHQ-9. Due on du e Goal UDT. Due on due Goal FIT-DNA. Due on due Goal AST (SGOT). Due on due Goal ALT (SGPT). Due on due Goal DIDACTIC PROGRAM IN DIETETICS DIRECTOR Paperwork. Due on due Goal Creatinine. Due on due Goal SENIOR ANIMAL TRAINER Scanned. Due on due Goal Order Annual PT. Due on due Goal ALT (SGPT). Due on due Goal SENIOR ANIMAL TRAINER Scanned. Due on due Goal Update Social Hi story. Due on due Goal Creatinine. Due on due Goal DIDACTIC PROGRAM IN DIETETICS DIRECTOR Paperwork. Due on due Goal Medication Recon [...] due Goal Creatinine. Due on due Goal Zoster vaccine ( [...] Goal Tobacco Use. Due on due Goal DIDACTIC PROGRAM IN DIETETICS DIRECTOR Paperwork. Due on due Goal SENIOR ANIMAL TRAINER Scanned. Due on due Goal Medication Recon ciliation. Due on due Goal Update Social Hi story. Due on due Goal CT-Colonography. Due on due Goal Unhealthy drug u se screening. Due on due Goal PHQ-9. Due on du e Goal FIT-DNA. Due on due Goal Update [...] Review Allergy List. Due on due Goal SENIOR ANIMAL TRAINER Scanned. Due on due Goal UDT. Due on due Goal CT-Colonography. Due on due Goal DIDACTIC PROGRAM IN DIETETICS DIRECTOR Paperwork. Due on due Goal OARS. Due on due Goal Height. Due on d ue Goal Hepatitis C scre ening. Due on due Goal Unhealthy drug u se screening. Due on due Goal Zoster vaccine ( 1st). Due on due Goal UDT. Due on due Goal Creatinine. Due on due Goal Tobacco Use. Due on due Goal AST (SGOT). Due on due Goal Review Allergy List. Due on due Goal PHQ-9. Due on du e Goal HPV. Due on due Goal Weight. [...] Goal Lipid panel. Due on due Goal DIDACTIC PROGRAM IN DIETETICS DIRECTOR Paperwork. Due on due Goal Order Annual PT. Due on due Goal SENIOR ANIMAL TRAINER Scanned. Due on due Goal FIT-DNA. Due on due Goal Height. Due on d ue Goal CT-Colonography. Due on due Goal Weight. [...] Goal AST (SGOT). Due on due Goal DIDACTIC PROGRAM IN DIETETICS DIRECTOR Paperwork. Due on due Goal Hepatitis C scre ening. Due on due Goal Tobacco Use. Due on due Goal UDT. Due on due Goal ALT (SGPT). Due on due Goal OARS. Due on due Goal SENIOR ANIMAL TRAINER Scanned. Due on due Goal Review Allergy List. Due on due Goal DIDACTIC PROGRAM IN DIETETICS DIRECTOR Paperwork. Due on due Goal Creatinine. Due on due Goal UDT. Due on due Goal SENIOR ANIMAL TRAINER Scanned. Due on due Goal FIT. Due [...] Goal PHQ-9. Due on du e Goal SENIOR ANIMAL TRAINER Scanned. Due on due Goal DIDACTIC PROGRAM IN DIETETICS DIRECTOR Paperwork. Due on due Goal Review Allergy List. Due on due Goal ALT (SGPT). Due on due Goal FIT. Due on due Goal Update Social Hi story. Due on due Goal Order Annual PT. Due on due Goal HPV. Due on due Goal CT-Colonography. Due on due Goal Zoster vaccine ( 1st). Due on due Goal CT-Colonography. Due on due Goal Height. Due on d ue Goal UDT. Due on due Goal Creatinine. Due on due Goal Weight. Due on d ue Goal DIDACTIC PROGRAM IN DIETETICS DIRECTOR Paperwork. Due on due Goal SENIOR ANIMAL TRAINER Scanned. Due on due Goal ALT (SGPT). [...] vaccine ( ). Due on due Goal Order Annual PT. Due on due Goal AST (SGOT). Due on due Goal Tobacco Use. Due on due Goal Lipid panel. Due on due Goal FIT-DNA. Due on due Goal Update Social Hi story. Due on due Goal Hepatitis C scre ening. Due on due Goal FIT. Due on due Goal Zoster vaccine ( 1st). Due on due Goal Update Social Hi story. Due on due Goal FIT-DNA. Due on due Goal Creatinine. Due on due Goal Medication Recon ciliation. Due on due Goal ALT (SGPT). Due on due Goal Review Allergy List. Due on due Goal Height. Due on d ue Goal CT-Colonography. Due on due Goal Order Annual PT. Due on due Goal DIDACTIC PROGRAM IN DIETETICS DIRECTOR Paperwork. Due on due Goal AST (SGOT). Due on due Goal UDT. Due on due Goal OARS. Due on due Goal PHQ-9. Due on du e Goal HPV. Due on due Goal SENIOR ANIMAL TRAINER Scanned. Due on due Goal Unhealthy drug [...] Goal Lipid panel. Due on due Goal DIDACTIC PROGRAM IN DIETETICS DIRECTOR Paperwork. Due on due Goal Unhealthy drug u se screening. Due on due Goal Medication Recon ciliation. Due on due Goal HPV. Due on due Goal Height. Due on d ue Goal SENIOR ANIMAL TRAINER Scanned. Due on due Goal Review Allergy List. Due on due Goal PHQ-9. Due on du e Goal Creatinine. Due on due Goal Order Annual PT. Due on due Goal Unhealthy drug u se screening. Due on due Goal Order Annual PT. Due on due Goal PHQ-9. Due on du e Goal FIT-DNA. Due on due Goal Height. Due on d ue Goal Hepatitis C scre ening. Due on due Goal Weight. Due on d ue Goal FIT. Due on due Goal CT-Colonography. Due on due Goal DIDACTIC PROGRAM IN DIETETICS DIRECTOR Paperwork. Due on due Goal Review Allergy List. Due on due Goal AST (SGOT). Due on due Goal Medication Recon ciliation. Due on due Goal Zoster vaccine ( ). Due on due Goal Update Social Hi story. Due on due Goal HPV. Due on due Goal Tobacco Use. Due on due Goal UDT. Due on due Goal Lipid panel. Due on due Goal ALT (SGPT). Due on due Goal OARS. Due on due Goal Creatinine. Due on due Goal SENIOR ANIMAL TRAINER Scanned. Due on due Goal Order Annual PT. Due on due Goal Creatinine. Due on due Goal UDT. Due on due Goal SENIOR ANIMAL TRAINER Scanned. Due on due Goal ALT (SGPT). Due on due Goal OARS. Due on due Goal AST (SGOT). Due on due Goal DIDACTIC PROGRAM IN DIETETICS DIRECTOR Paperwork. Due on due Goal Weight. Due on d ue Goal FIT. Due on due Goal Zoster [...] e Goal HPV. Due on due Goal AST [...] due Goal OARS. Due on due Goal SENIOR ANIMAL TRAINER Scanned. Due on due Goal Height. Due on d ue Goal ALT (SGPT). Due on due Goal Unhealthy drug u se screening. Due on due Goal UDT. Due on due Goal FIT-DNA. Due on due Goal HPV. Due on due Goal Lipid panel. Due on due Goal FIT. Due on due Goal Order Annual PT. Due on due Goal DIDACTIC PROGRAM IN DIETETICS DIRECTOR Paperwork. Due on due Goal Tobacco Use. Due on due Goal Review Allergy List. Due on due Goal Weight. Due on d ue Goal SENIOR ANIMAL TRAINER Scanned. Due on due Goal Order Annual PT. Due on due Goal ALT (SGPT). Due on due Goal HPV. Due on due Goal OARS. Due on due Goal UDT. Due on due Goal DIDACTIC PROGRAM IN DIETETICS DIRECTOR Paperwork. Due on due Goal AST (SGOT). Due on due Goal Height. Due on d ue Goal Creatinine. Due on due Goal FIT-DNA. Due on due Goal Weight. Due on [...] due Goal FIT. Due on due Goal CT-Colonography. Due on due Goal Update Social Hi story. Due on due Goal Zoster vaccine ( 1st). Due on due Goal Update Social Hi story. Due on due Goal HPV. Due on due Goal AST (SGOT). Due on due Goal DIDACTIC PROGRAM IN DIETETICS DIRECTOR Paperwork. Due on due Goal Hepatitis C scre ening. Due on due Goal OARS. Due on due Goal Order Annual PT. Due on due Goal Creatinine. Due on due Goal FIT. Due on due Goal Weight. Due on d ue Goal Review Allergy List. Due on due Goal UDT. Due on due Goal ALT (SGPT). Due on due Goal SENIOR ANIMAL TRAINER Scanned. Due on due Goal Height. Due on d ue Goal Unhealthy drug u se screening. Due on due Goal FIT-DNA. Due on due Goal Tobacco Use. Due on due Goal CT-Colonography. Due on due Goal Lipid panel. Due on due Goal PHQ-9. Due on du e Goal Medication Recon ciliation. Due on due Goal SENIOR ANIMAL TRAINER Scanned. Due on due Goal Lipid panel. [...] Order Annual PT. Due on due Goal DIDACTIC PROGRAM IN DIETETICS DIRECTOR Paperwork. Due on due Goal Creatinine. Due on due Goal Review Allergy List. Due on due Goal Hepatitis C scre ening. Due on due Goal OARS. Due on due Goal FIT. Due on due Goal SENIOR ANIMAL TRAINER Scanned. Due on due Goal DIDACTIC PROGRAM IN DIETETICS DIRECTOR Paperwork. Due on due Goal Hepatitis C [...] vaccine ( 1st). Due on due Goal DIDACTIC PROGRAM IN DIETETICS DIRECTOR Paperwork. Due on due Goal Review Allergy [...] ue Goal OARS. Due on due Goal SENIOR ANIMAL TRAINER Scanned. Due on due Goal Weight. Due on d ue Goal Tobacco Use. Due on due Goal HPV. Due on due Goal DIDACTIC PROGRAM IN DIETETICS DIRECTOR Paperwork. Due on due Goal Tobacco Use. Due on due Goal Zoster vaccine ( 1st). Due on due Goal SENIOR ANIMAL TRAINER Scanned. Due on due Goal FIT-DNA. Due [...] due Goal OARS. Due on due Goal SENIOR ANIMAL TRAINER Scanned. Due on due Goal Zoster vaccine ( 1st). Due on due Goal Order Annual PT. Due on due Goal PHQ-9. Due on du e Goal FIT-DNA. Due on due Goal Lipid panel. Due on due Goal UDT. Due on due Goal DIDACTIC PROGRAM IN DIETETICS DIRECTOR Paperwork. Due on due Goal Height. Due [...] due Goal FIT. Due on due Goal SENIOR ANIMAL TRAINER Scanned. Due on due Goal FIT-DNA. Due on due Goal ALT (SGPT). Due on due Goal CT-Colonography. Due on due Goal Lipid panel. Due on due Goal Order Annual PT. Due on due Goal OARS. Due on due Goal HPV. Due on due Goal Update Social Hi story. Due on due Goal DIDACTIC PROGRAM IN DIETETICS DIRECTOR Paperwork. Due on due Goal UDT. Due on due Goal PHQ-9. Due on du e Goal Zoster vaccine ( ). Due on due Goal Creatinine. Due on [...] Review Allergy List. Due on due Goal Height. Due on d ue Goal Weight. Due on d ue Goal ALT (SGPT). Due on due Goal FIT. Due on due Goal UDT. Due on due Goal HPV. Due on due Goal Creatinine. Due on due Goal FIT-DNA. Due on due Goal AST (SGOT). Due on due Goal Order Annual PT. Due on due Goal SENIOR ANIMAL TRAINER Scanned. Due on due Goal Zoster vaccine ( ). Due on due Goal OARS. Due on due Goal DIDACTIC PROGRAM IN DIETETICS DIRECTOR Paperwork. Due on due Goal CT-Colonography. Due on due Goal Zoster vaccine ( ). Due on due Goal FIT. Due on due Goal Update Social Hi story. Due on due Goal SENIOR ANIMAL TRAINER Scanned. Due on due Goal Tobacco Use. [...] Goal Weight. Due on d ue Goal DIDACTIC PROGRAM IN DIETETICS DIRECTOR Paperwork. Due on due Goal Review Allergy [...] vaccine ( 1st). Due on due Goal UDT. Due on due Goal Lipid panel. Due on due Goal Height. Due on d ue Goal OARS. Due on due Goal AST (SGOT). Due on due Goal FIT-DNA. Due on due Goal DIDACTIC PROGRAM IN DIETETICS DIRECTOR Paperwork. Due on due Goal PHQ-9. Due on du e Goal Unhealthy drug u se screening. Due on due Goal Creatinine. Due on due Goal HPV. Due on due Goal Tobacco Use. Due on due Goal Update Social Hi story. Due on due Goal SENIOR ANIMAL TRAINER Scanned. Due on due Goal Review Allergy List. Due on due Goal Weight. Due on d ue Goal Weight. Due on d ue Goal OARS. Due on due Goal UDT. Due on due Goal SENIOR ANIMAL TRAINER Scanned. Due on due Goal ALT (SGPT). Due on due Goal Order Annual PT. Due on due Goal Height. Due on d ue Goal FIT-DNA. Due on due Goal Creatinine. Due on due Goal Hepatitis C scre ening. Due on due Goal DIDACTIC PROGRAM IN DIETETICS DIRECTOR Paperwork. Due on due Goal PHQ-9. Due [...] vaccine ( ). Due on due Goal AST (SGOT). Due on due Goal Height. Due on d ue Goal HPV. Due on due Goal CT-Colonography. Due on due Goal Lipid panel. Due on due Goal Order Annual PT. Due on due Goal Hepatitis C scre ening. Due on due Goal Weight. Due on d ue Goal DIDACTIC PROGRAM IN DIETETICS DIRECTOR Paperwork. Due on due Goal Medication Recon ciliation. Due on due Goal Unhealthy drug u se screening. Due on due Goal OARS. Due on due Goal Update Social Hi story. Due on due Goal FIT. Due on due Goal PHQ-9. Due on du e Goal UDT. Due on due Goal Creatinine. Due on due Goal SENIOR ANIMAL TRAINER Scanned. Due on due Goal ALT (SGPT). Due on due Goal Tobacco Use. Due on due Goal FIT. Due on due Goal Review Allergy List. Due on due Goal Order Annual PT. Due on due Goal SENIOR ANIMAL TRAINER Scanned. Due on due Goal AST (SGOT). [...] Social Hi story. Due on due Goal DIDACTIC PROGRAM IN DIETETICS DIRECTOR Paperwork. Due on due Goal PHQ-9. Due on du e Goal Creatinine. Due on due Goal Update Social Hi story. Due on due Goal FIT-DNA. Due on due Goal PHQ-9. Due on du e Goal SENIOR ANIMAL TRAINER Scanned. Due on due Goal Review Allergy [...] vaccine ( ). Due on due Goal Weight. Due on d ue Goal Height. Due on d ue Goal Hepatitis C scre ening. Due on due Goal AST (SGOT). Due on due Goal UDT. Due on due Goal FIT. Due on due Goal DIDACTIC PROGRAM IN DIETETICS DIRECTOR Paperwork. Due on due Goal Update Social Hi story. Due on due Goal UDT. Due on due Goal Tobacco Use. Due on due Goal DIDACTIC PROGRAM IN DIETETICS DIRECTOR Paperwork. Due on due Goal SENIOR ANIMAL TRAINER Scanned. Due on due Goal Zoster vaccine [...] Goal Lipid panel. Due on due Goal SENIOR ANIMAL TRAINER Scanned. Due on due Goal Height. Due on d ue Goal DIDACTIC PROGRAM IN DIETETICS DIRECTOR Paperwork. Due on due Goal Unhealthy drug u se screening. Due on due Goal OARS. Due on due Goal FIT. Due on due Goal CT-Colonography. Due on due Goal UDT. Due on due Goal Order Annual PT. Due on due Goal Creatinine. Due on due Goal Hepatitis C scre ening. Due on due Goal HPV. Due on due Goal PHQ-9. Due on du e Goal FIT-DNA. Due on due Goal Zoster vaccine ( ). Due on due Goal Hepatitis C scre [...] due Goal Creatinine. Due on due Goal DIDACTIC PROGRAM IN DIETETICS DIRECTOR Paperwork. Due on due Goal SENIOR ANIMAL TRAINER Scanned. Due on due Goal Unhealthy drug u se screening. Due on due Goal Height. Due on d ue Goal AST (SGOT). Due on due Goal UDT. Due on due Goal Lipid panel. Due on due Goal Order Annual PT. Due on due Goal CT-Colonography. Due on due Goal FIT-DNA. Due on due Goal DIDACTIC PROGRAM IN DIETETICS DIRECTOR Paperwork. Due on due Goal Creatinine. Due on due Goal Weight. Due on d ue Goal CT-Colonography. Due on due Goal Tobacco Use. Due on due Goal Order Annual PT. Due on due Goal Review Allergy List. Due on due Goal SENIOR ANIMAL TRAINER Scanned. Due on due Goal OARS. Due [...] due Goal UDT. Due on due Goal DIDACTIC PROGRAM IN DIETETICS DIRECTOR Paperwork. Due on due Goal Height. Due on d ue Goal OARS. Due on due Goal SENIOR ANIMAL TRAINER Scanned. Due on due Goal Weight. Due [...] Medication Recon ciliation. Due on due Goal DIDACTIC PROGRAM IN DIETETICS DIRECTOR Paperwork. Due on due Goal Creatinine. Due on due Goal Weight. Due on d ue Goal AST (SGOT). Due on due Goal SENIOR ANIMAL TRAINER Scanned. Due on due Goal Tobacco Use. [...] Goal ALT (SGPT). Due on due Goal SENIOR ANIMAL TRAINER Scanned. Due on due Goal OARS. Due on due Goal DIDACTIC PROGRAM IN DIETETICS DIRECTOR Paperwork. Due on due Goal Medication Recon [...] Review Allergy List. Due on due Goal DIDACTIC PROGRAM IN DIETETICS DIRECTOR Paperwork. Due on due Goal SENIOR ANIMAL TRAINER Scanned. Due on due Goal OARS. Due [...] Medication Recon ciliation. Due on due Goal SENIOR ANIMAL TRAINER Scanned. Due on due Goal Review Allergy List. Due on due Goal Update Social Hi story. Due on due Goal ALT (SGPT). Due on due Goal OARS. Due on due Goal Tobacco Use. Due on due Goal AST (SGOT). Due on due Goal Creatinine. Due on due Goal DIDACTIC PROGRAM IN DIETETICS DIRECTOR Paperwork. Due on due Goal Order Annual PT. Due on due Goal UDT. Due on due Goal ALT (SGPT). Due on due Goal DIDACTIC PROGRAM IN DIETETICS DIRECTOR Paperwork. Due on due Goal SENIOR ANIMAL TRAINER Scanned. Due on due Goal OARS. Due [...] Goal ALT (SGPT). Due on due Goal DIDACTIC PROGRAM IN DIETETICS DIRECTOR Paperwork. Due on due Goal Order Annual PT. Due on due Goal UDT. Due on due Goal SENIOR ANIMAL TRAINER Scanned. Due on due Goal OARS. Due [...] due Goal Creatinine. Due on due Goal SENIOR ANIMAL TRAINER Scanned. Due on due Goal Review Allergy List. Due on due Goal Medication Recon ciliation. Due on due Goal PHQ-9. Due on du e Goal Weight. Due on d ue Goal Order Annual PT. Due on due Goal AST (SGOT). Due on due Goal UDT. Due on due Goal Height. Due on d ue Goal DIDACTIC PROGRAM IN DIETETICS DIRECTOR Paperwork. Due on due Goal OARS. Due on due Goal Creatinine. Due on due Goal Update Social Hi story. Due on due Goal ALT (SGPT). Due on due Goal Tobacco Use. Due on due Goal DIDACTIC PROGRAM IN DIETETICS DIRECTOR Paperwork. Due on due Goal UDT. Due on due Goal PHQ-9. Due on du e Goal Review Allergy List. Due on due Goal Medication Recon ciliation. Due on due Goal Order Annual PT. Due on due Goal SENIOR ANIMAL TRAINER Scanned. Due on due Goal Tobacco Use. Due on due Goal ALT (SGPT). Due on due Goal Height. Due on d ue Goal OARS. Due on due Goal Update Social Hi story. Due on due Goal Creatinine. Due on due Goal Weight. Due on d ue Goal AST (SGOT). Due on due Goal DIDACTIC PROGRAM IN DIETETICS DIRECTOR Paperwork. Due on due Goal Creatinine. Due on due Goal SENIOR ANIMAL TRAINER Scanned. Due on due Goal OARS. Due [...] Review Allergy List. Due on due Goal DIDACTIC PROGRAM IN DIETETICS DIRECTOR Paperwork. Due on due Goal UDT. Due on due Goal ALT (SGPT). Due on due Goal Order Annual PT. Due on due Goal PHQ-9. Due on du e Goal Weight. Due on d ue Goal Tobacco Use. Due on due Goal OARS. Due on due Goal AST (SGOT). Due on due Goal Creatinine. Due on 17 due Goal SENIOR ANIMAL TRAINER Scanned. Due on due Goal Height. Due [...] due Goal UDT. Due on due Goal DIDACTIC PROGRAM IN DIETETICS DIRECTOR Paperwork. Due on due Goal SENIOR ANIMAL TRAINER Scanned. Due on due Goal Order Annual PT. Due on due Goal Medication Recon ciliation. Due on due Goal DIDACTIC PROGRAM IN DIETETICS DIRECTOR Paperwork. Due on due Goal AST (SGOT). Due on due Goal Weight. Due on d ue Goal PHQ-9. Due on du e Goal SENIOR ANIMAL TRAINER Scanned. Due on due Goal Order Annual PT. Due on due Goal Update Social Hi story. Due on due Goal Review Allergy List. Due on due Goal Height. Due on [...] Goal Height. Due on d ue Goal DIDACTIC PROGRAM IN DIETETICS DIRECTOR Paperwork. Due on due Goal Creatinine. Due on due Goal Weight. Due on d ue Goal Review Allergy List. Due on due Goal SENIOR ANIMAL TRAINER Scanned. Due on due Goal OARS. Due [...] Goal Weight. Due on d ue Goal DIDACTIC PROGRAM IN DIETETICS DIRECTOR Paperwork. Due on due Goal Height. Due on d ue Goal Tobacco Use. Due on due Goal PHQ-9. Due on du e Goal SENIOR ANIMAL TRAINER Scanned. Due on due Goal UDT. Due [...] CE DRUG ANALYSIS, URINE, WITH MED REPORT (30293), Ordered on: Ordered Future Order: Lab Order Drug [facility]atra t Def 22+ Classes (G0483), Ordered on: Ordered Future Order: Lab Order COMPLIAN CE DRUG ANALYSIS, URINE, WITH MED REPORT ([id number]), Ordered on: Ordered Future Order: Lab Order Drug Cleopatra t Def 22+ Classes (G0483), Ordered on: Ordered Future Order: Lab Order COMPLIAN CE DRUG ANALYSIS, URINE, WITH MED REPORT ([id number]), Ordered on: Ordered History Of Present Illness [...] pain is lower back and right knee. Back Pain Severity level i s 7. Duration: chronic. The problem is worsening. It occurs persistently. Location of pain is lower back and legs. The client describes the pain as an ache, burning and sharp. Symptoms are aggravated by ascending stairs, descending stairs, lifting, twisting, prolonged positioning and movement. Symptoms are relieved by pain meds/drugs, sitting and changing positions. Comments: Ramona presents in [...] today. Back Pain Severity level i s 10. [...] is lower back. Comments: Ramona presents via avocarrot for a virtual follow up and medication [...] other concerns today. Comments: Ramona presents via FREDY for a [...] her. She has a second opinion at [facility] next week. If they don't have other options, she will consider genicular nerve RFW. Low back pain continues to be bothersome. She will be having an injection here next week, ordered by [facility]. They typically order injections to be [...] Tylenol. She will be seeing [facility] in [place] next week - states since her most [...] touch the knee pain.No other concerns expressed. Comments: Ramona presents via avocarrot for a virtual follow up and medication [...] that she has an appointment with her workers compensation specialist on 04/10/23. Notes she has continued [...] worsening. Location of pain is lower back. Back Pain Severity level i s 7. Duration: chronic. The problem is worsening. Location of pain is lower back. Comments: Ramona presents via avocarrot for a virtual follow up and medication [...] an hour and awoke to a police judge banging on her window.Current medication regimen continues [...] and BL knees. Comments: Ramona presents via avocarrot for a virtual follow up and medication refill regarding chronic back pain. Also c/o low back and BL knee pain. Her pain has remained relatively stable since [facility].Expresses an interest in getting a referral to [...] and BL knees. Comments: Ramona presents via avocarrot for a virtual follow up and medication refill regarding chronic back pain. C/o low back and BL knee pain. Her pain continues to be worse since [facility].S/p BL knee joint injection on 11/26/22. Reports [...] from it.Mentions she has an appointment with [facility] on 11/13/22 regarding the burning pain [...] and BL knees. Comments: Ramona presents via avocarrot for a virtual follow up and medication [...] knee. She is hoping to go to [facility] tomorrow.Current medication regimen provides around 40% pain relief. Denies side effects from current medication regimen, besides OIC. No other concerns today. Back Pain Severity level i s 7. Duration: chronic. The problem is worsening. It occurs persistently. Location of pain is lower back. Comments: Ramona presents via avocarrot for a virtual follow-up and medication refill [...] concerns today. Comments: Ramona presents for a follow-up and medication refill c/o chronic back pain. Reports she is still experiencing spasms.S/p lumbar sx on 01/16/22 at [facility], and continues to be in the healing process. F/u for a second opinion with [facility] on 04/11/22 who recommended lumbar CARLOS. [...] s/p back surgery, completed on 01/16/22 at [facility], and continues to be in the healing process. Scheduled for a second opinion with [facility] on 04/11. Current medication regimen provides [...] s/p back surgery, completed on 01/16/22 at [facility], and continues to be in the healing process. Patient states she is actively seeking a second opinion with [facility] regarding her back.Current medication regimen provides [...] pain. S/p back surgery on 01/16 at [facility], patient is still experiencing post-op pain. [...] to worsen.Upcoming back surgery on 01/16 at [facility]. May also needs an additional surgery [...] lower back. Comments: Ramona presents for a follow up [...] a 60 y/o female who presents via PALMYRA for virtual follow up and medication refill [...] financially burdening for her to purchase it [id number]. Endorses OIC, managed with [employer]. Denies other [...] other concerns today. Comments: Ramona presents via avocarrot for virtual follow up and medication refill.Recently [...] meds/drugs and rest. Comments: Ramona presents via avocarrot for virtual follow up and medication refill.States [...] morning. Plans to mail consent form for [place] medical [place] program to [facility].No other concerns today. Back Pain Severity level [...] scan and will be following up with [facility] in 2 weeks to review the [...] long after the surgery. Expresses frustrations with [facility] not providing her the proper doses of [...] pain management.No other concerns today. Back Pain (comments) Patient [...] though not interested in staying at dosage correction.No other concerns today. Back Pain (comments) Patient [...] this Friday.No other concerns today. Back Pain Severity level i s 7. Duration: chronic. The problem is worsening. It occurs persistently. Location of pain is lower back.The patient describes the pain as burning and sharp. Symptoms are aggravated by ascending stairs, bending, descending stairs, lifting, sitting, twisting and prolonged positioning. Symptoms are relieved by lying down, pain meds/drugs, rest and changing positions. Back Pain Duration: chroni c. The problem [...] persistent and chronic. She met with her workers compensation specialist who reviewed her recent lumbar MRI [...] today. She will be starting with a it trainer on Friday. Back Pain Severity level i [...] changing positions, prolonged positioning and sitting in crucible packer at particular angle. Back Pain (comments) Ramona [...] to wait on getting neck injections at [facility] because her pain is tolerable as of now. She says she joined [employer] gym and works out everyday, which [...] also had difficultly sleeping. low back pain (comments) Patient is here for follow-up and medication refills. Patient has #8 Oxycontin and #10 oxycodone remaining today - on track. Reports about 40-50% relief from the medication. Would like to switch to a different long-acting opioid for better pain relief as discussed previously. Her neck and left arm continue to be painful - treating at [facility]. Nerve blocks have been ordered at [facility] and if ineffective, will be considering [...] relieved by pain meds/drugs, sitting and recliner. Neck pain low back pain Severity level i s 7. Duration: chronic. The problem is changing in character. It occurs persistently. Location of pain is lower back and neck. Pain is radiated to the left arm.The patient describes the pain as an ache and sharp. Symptoms are aggravated by bending, lifting, sitting, standing, twisting, walking and movement. Symptoms are relieved by pain meds/drugs and recliner. low back pain (comments) Patient is here for follow-up and medication refills. Patient has #23 Oxycontin and #30 oxycodone remaining today - on track. Reports about 40% relief from the medication, less effective than previous. Had a cervical CT last week to evaluate her new neck pain and numbness. Will be following up with [facility]. low back pain Severity level i [...] relief; denies any SE. Continues to watch [employer]. States her SCS is and never was effective. low back pain (comments) Patient is here [...] reports that she completed a CT at [facility]. It was recommended she complete myofascial release [...] more hours during the week. Met with [facility] and fusion looks stable. Has been referred for myofascial release at [facility] in [place]. low back pain Severity level i s [...] more often. Will be starting PT in [place] on 02/23/15. Patient has #5 Oxycontin and [...] Back Pain (comments) Patient was referred by [facility]. Patient has a hx of severe lumbar DDD; she had a L4-S1 fusion in April 2011 and revision in February 2014. She also has a hx of cervical fusion in 2010. Neck pain has resolved, she is here today to inquire about treating her low back pain. Patient has a [employer] SCS, though is not currently using it. [...] she knows she will not be driving. [place] is effective for only one hour. She [...]
--- OUTSIDE RECORDS SUMMARY | 2023-12-04 03:32 | XMS_ITS | Clinical Summary ---
Author Organization [facility] Address [address] [place] [address] Care Team Providers Care Dispatcher Radioactive Waste Disposal Name Role Phone Tommy Mcelroy MD Primary Care Provider Source Comments You are receiving this document as you are listed as the primary care provider,follow-up provider, or the patient has been referred to you for consultation.This is in compliance with the Medicare and[facility] EHR Incentive Program,which states Providers who transition their patient to another setting of careor provider of care or refers their patient to another provider of care shouldprovide summary care record for each transition of care or referral. [facility] Allergies Active Allergy Reactions Criticality Noted Date Comments Antihistamines, Diphenhydramine-Type 06/16/2009 I have restless leg syndrome Phenothiazines Other, see comments 06/16/2009 Medications Medication Sig Dispensed Refills Start Date End Date Status Pramipexole Dihydrochloride (MIRAPEX OR) None Entered Active LORazepam (ATIVAN OR) Act nathaniel Active Problems Problem Noted Date Diagnosed Date Right foot pain 05/13/2022 Overview (05/13/2022): Added automatically from request for surgery [id number] Social History Tobacco Use Types Packs/Day Years [...] age to complete this topic Care Teams Dispatcher Radioactive Waste Disposal Relationship Specialty Start Date End Date Tommy Mcelroy MD [facility] [address] [place] [address] PCP - General Family Practice 05/07/22
--- OUTSIDE RECORDS SUMMARY | 2023-12-04 03:32 | XMS_ITS | Continuity of Care Document ---
Author Organization [facility] Address [address] [address] [place] [address] Phone Care Team Providers Care Professor Of Mathematics Name Role Phone Sanjay Evangelista MD Unavailable [...] Active Procedures Procedure Date Offic/outpt E&m [facility] Advance Directives Directive Yes / No Effective Date File Name No Information Encounters Encounter Description Practice Location Reason(s) For Visit Diagnoses Date Provider Providers Copied on Encounter [facility], [address] [address], [place], [id number], [place] tel:[phone] [facility] No Information 4 Jonah Grace. [address], [id number], [place]. tel:[phone] Offic/outpt E&m [facility], [address] [address], [place], [id number], [place] tel:[phone] [facility] Symptoms or Concerns (chief complaint) Abdominal distensionColon cancer screening 4 Pelon Terrazas. [address] [facility] [address], [place], [id number], [place]. tel:[phone] Referring Provider: Blaire MONZON N, [address], [place], [address]. tel:[phone] [facility] [place], [address] [address], [place], [place], [id number], tel:[phone] [facility] No Information 4 Jonah Grace. [address] [facility] [address], [place], [id number], [place]. tel:[phone] Family History Family Member Type Diagnosis Age [...] Registry Payers Payer name Insurance type Covered constitution [...] movement a day type 4 on the [place] stool chart. She does take Linzess 145 [...] No Information Instructions Date Instruction Additional Infor macro -- As we discussed i n the [...]
--- OUTSIDE RECORDS SUMMARY | 2023-12-04 03:32 | XMS_ITS | Continuity of Care Document ---
Author Organization [facility] Address [address] [place] [address] Phone Care Team Providers Care Therapeutic Consultant Name Role Phone Greg Hicks Unavailable Unavailab le Allergies, Adverse Reactions, Alerts Substance Reaction Status Criticality No Known Allergies Active No Inform ation Medications Medication Instructions Dosage Effective Dates (start - stop) Status Comments TIZANIDINE HCL (unknown strength) Not Available - Active METFORMIN HCL (unknown strength) Not Available - Active BUPROPION HCL (unknown strength) Not Available - Active DICYCLOMINE HCL (unknown strength) Not Available - Active DULOXETINE HCL (unknown strength) Not Available - Active ESCITALOPRAM OXALATE (unknown strength) Not Available - Active FUROSEMIDE (unknown strength) Not Available - Active LAMOTRIGINE (unknown strength) Not Available - Active LIDOCAINE (unknown strength) Not Available - Active OMEPRAZOLE (unknown strength) Not Available - Active OXYCODONE HCL (unknown strength) Not Available - Active PRAMIPEXOLE DIHYDROCHLORIDE (unknown strength) Not Available - Active PRAZOSIN HCL (unknown strength) Not Available - Active SENNOSIDES-DOCUSATE SODIUM (unknown strength) Not Available - Active SIMVASTATIN (unknown strength) Not Available - Active TOPIRAMATE (unknown strength) Not Available - Active TRAZODONE HCL (unknown strength) Not Available - Active Procedures Procedure Date Postop Followup Visit Advance Directives Directive Yes / No Effective Date File Name No Information Encounters Encounter Description Practice Location Reason(s) For Visit Diagnoses Date Provider Providers Copied on Encounter [facility] , [address], [place], [place], [id number], tel:[phone] [facility] Encounter for other specified surgical aftercare Jah Garza. [facility], [address], [address], [place], [address], . tel:[phone] Referring Provider: Greg Tai, [facility] [address], [address], [place], [address]. tel:[phone] Family History Family Member Type Diagnosis Age At Onset Brother Problem (finding) Depression Payers Payer name Insurance type Covered green party ID Authorviolet chao(s) [employer] Medicare [facility] CI [id number] Social History Type Description Quantity Date [...]
== END 2023-11-30 15:49 | disposition home or self-care (01) ==
LOC: AMB 12-04 03:26
PROVIDERS: PCP Family Medicine; Visit Provider Family Medicine
DX: S89.91XA Unspecified injury of right lower leg, initial encounter (principal); S89.92XA Unspecified injury of left lower leg, initial encounter; V49.3XXA Car occupant (driver) (passenger) injured in unspecified nontraffic accident, initial encounter; Y92.481 Parking lot as the place of occurrence of the external cause
CPT/HCPCS: A0425; A0427

== ENCOUNTER 2023-11-30 16:20 | Emergency (ER) | payer OTHER, SELFPAY ==
[2023-11-30] VITALS (13 sets, daily range): BP systolic 110–121; BP diastolic 59–83; PULSE 75–92; RESP 16–18; TEMP 36.7; O2SAT 94–97; BMI 24.6
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
[2023-11-30] MEDS: HYDROmorphone 0.5 mg/0.5 ml inj IVP ×3 (16:37→17:35)
[2023-11-30] MEDS: 0.9 % SODIUM CHLORIDE 1000 ml 1,000 ML IV (16:37)
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
--- NOTE | 2023-11-30 17:34 | ED.NURSE ---
TTa paper work and assessment being done. ems on the way.
--- OUTSIDE RECORDS SUMMARY | 2023-11-30 17:35 | XMS_ITS | Encounter Summary ---
Author Organization [facility] Address [address] [place] [id number] Care Team Providers Care Team Coordinator Name Role Phone [facility]- Unava ilable Hayes Mcelroy MD Primary Care Provider [phone] Reason for Referral * (Routine) - Open Specialty Diagnoses / Procedures Referred By Contac t Referred To Contact Diagnoses S/P lumbar fusion Procedures XR SPINE LUMBAR ROUTINE Brock Sawyer MD [address] [facility] [employer] [address] [place] [id number] Referral ID Status Reason Start Date Expiration Date Visits Re quested Visits Authorized [id number] Open 12/21/2023 1 1 Reason for Visit * Reason Comments Post op check Encounter Details Date Type Department Care Team (Late st Contact Info) Description 2023 9:40 AM CDT Office Visit [facility] (an affiliate of [facility]) [address] [place] [address] Brock Sawyer MD [address] [facility] [address] [place] [id number] S/P lumbar fusion (Primary Dx) Social History Tobacco Use Types Packs/Day Years Used Date Smoking Tobacco: Former Cigarettes Smokeless Tobacco: Never Tobacco Cessation:Counseling Given: Not Answered Comments:Quit august 2023 Alcohol Use Standard Drinks/Week Comments Not Currently 0 (1 standard drink = 0.6 oz pur e alcohol) [facility] Utilities Answer Date Recorded In the past 12 months has th e electric, gas, oil, or water company threatened to shut off services in your home? No 09/23/2023 Humiliation, Afraid, Rape, and Kick questionnair e Answer Date Recorded Within the last year, have y ou been afraid of your partner or ex-partner? No 09/23/2023 Within the last year, have y ou been humiliated or emotionally abused in other ways by your partner or ex-partner? No Within the last year, have y ou been kicked, hit, slapped, or otherwise physically hurt by your partner or ex-partner? No 09/23/2023 Within the last year, have y ou been raped or forced to have any kind of sexual activity by your partner or ex-partner? No 09/23/2023 Hunger Vital Sign Answer Date Recorded Within the past 12 months, y ou worried that your food would run out before you got the money to buy more. Never true 09/23/19 24 Within the past 12 months, t he food you bought just didn't last and you didn't have money to get more. Never true 09/23/2023 PRAPARE - Transportation Answer Date Re corded In the past 12 months, has l ack of transportation kept you from medical appointments or from getting medications? No 09/10 In the past 12 months, has l ack of transportation kept you from meetings, work, or from getting things needed for daily living? No 09/23/2023 Housing Stability Vital Sign Answer Hernandez e Recorded In the last 12 months, was t here a time when you were not able to pay the mortgage or rent on time? No 09/23/2023 In the past 12 months, how m any times have you moved where you were living? 0 09/23/2023 At any time in the past 12 m [facility], were you homeless or living in a assisted (including now)? No 09/23/2023 Sex and Gender Information Value Date Recorded Sex Assigned at Not on file Gender Identity Not on file Sexual Orientation Not on file documented as of this encounter Last Filed Vital Signs Vital Sign Reading Time Taken Comments Blood Pressure - - Pulse - - Temperature - - Respiratory Rate - - Oxygen Saturation - - Inhaled Oxygen Concentration - - Weight 69.9 kg (154 lb) 2023 10:22 AM CDT Height 174 cm (5' 8.5) 2023 10:22 AM CDT Body Mass Index 23.08 2023 10:22 AM CDT documented in this encounter Plan of Treatment Scheduled Orders Name Type Priority Associated Diagnoses Orde r Schedule XR SPINE LUMBAR ROUTINE Imaging Routine S/P lumbar fusion Expected: 12/21/2023 (Approximate), Expires: 02/20/2024 documented as of this encounter Visit Diagnoses Diagnosis S/P lumbar fusion- Primary Arthrodesis status documented in this encounter Care Teams Team Coordinator Relationship Specialty Start Date End Date [facility]- [address] [place] [address] PCP - Primary Care Clinic 09/18/22 [place] [address] [place] [address] PCP - General 05/20/23 documented as of this encounter
--- OUTSIDE RECORDS SUMMARY | 2023-11-30 17:35 | XMS_ITS | Encounter Summary ---
Author Organization [facility] Address [address] [place] [address] [place] [address] Care Team Providers Care Cage Fighter Name Role Phone [facility]- Unava ilable Hayes Mcelroy MD Primary Care Provider [phone] Encounter Details Date Type Department Care Team (Latest Contact Info) Description 10/28/2023 Travel Social History Tobacco Use Types Packs/Day Years Used Date Smoking Tobacco: Former Cigarettes Smokeless Tobacco: Never Comments:Quit august 2023 Alcohol Use Standard Drinks/Week Comments Not Currently 0 (1 standard drink = 0.6 oz pur e alcohol) [facility] Utilities Answer Date Recorded In the past 12 months has e electric, gas, oil, or water company [...] the money to buy more. Never true 08/13/20 24 Within the past 12 months, t [...] any time in the past 12 m [facility], were you homeless or living in a residential (including now)? No 09/23/2023 Sex and Gender Information Value Date Recorded Sex Assigned at Not on file Gender Identity Not on file Sexual Orientation Not on file documented as of this encounter Plan of Treatment Not on file documented as of this encounter Visit Diagnoses Not on filedocumented in this encounter Care Teams Cage Fighter Relationship Specialty Start Date End Date [facility]- [address] [place] [address] PCP - Primary Care Clinic 09/18/22 [place] [address] [place] [address] PCP - General 05/20/23 documented as of this encounter
--- OUTSIDE RECORDS SUMMARY | 2023-11-30 17:35 | XMS_ITS | Encounter Summary ---
Author Organization [facility] Address [address] [place] [address] [place] [address] Care Team Providers Care Cassandra Developer Name Role Phone [facility]- Unava ilable Hayes Mcelroy MD Primary Care Provider [phone] Encounter Details Date Type Department Care Team (Latest Contact Info) Description 2023 Travel Social History Tobacco Use Types Packs/Day Years Used Date Smoking Tobacco: Former Cigarettes Smokeless Tobacco: Never Comments:Quit august 2023 Alcohol Use Standard Drinks/Week Comments Not Currently 0 (1 standard drink = 0.6 oz pur e alcohol) [facility] Utilities Answer Date Recorded In the past [...] any time in the past 12 m [facility], were you homeless or living in a [facility] (including now)? No 09/23/2023 Sex and Gender Information Value Date Recorded Sex Assigned at Not on file Gender Identity Not on file Sexual Orientation Not on file documented as of this encounter Plan of Treatment Not on file documented as of this encounter Visit Diagnoses Not on filedocumented in this encounter Care Teams Cassandra Developer Relationship Specialty Start Date End Date [facility]- [address] [place] [address] PCP - Primary Care Clinic 09/18/22 [place] [address] [place] [address] PCP - General 05/20/23 documented as of this encounter
--- OUTSIDE RECORDS SUMMARY | 2023-11-30 17:35 | XMS_ITS | Clinical Summary ---
Author Organization [facility] Address [address] [place] [address] [place] [address] Care Team Providers Care Arc Furnace Operator Name Role Phone [facility]- Unava ilable Hayes Mcelroy MD Primary Care Provider [phone] Allergies Active Allergy Reactions Criticality Noted Date Comments Atorvastatin Other 09/30/2019 Skin irritation around eyes Baclofen Nausea Low 12/23/2012 Vpimdajtnqfw-Twhkftb-Rauhpg e Low 12/23/2012 Cyclobenzaprine Low 04/24/2011 Other Reaction(s): Other (See Comments) Cyclobenzaprine Hcl Other 07/11/2014 problems with RLS Diphenhydramine Low 11/21/2022 Other Reaction(s): Effects RLS Diphenhydramine-Zinc Acetate Other Low 04/24/2011 Makes restless leg symptoms worse. Other Reaction(s): Other (See Comments) Droperidol Other 09/30/2019 Worsens RLS Hydroxyzine High 11/21/2022 Other Reaction(s): involuntary muscle movement Hydroxyzine Hcl 08/05/2019 Methocarbamol Nausea,Other Low 04/24/2011 Causes problems with RLS Other Reaction(s): Other (See Comments) Mirtazapine Low 12/23/2012 Morphine Itching 10/07/2008 Phenothiazines Other 10/07/2008 convulsions Prochlorperazine Other Low 10/23/2004 Tongue in and out of mouth, screams-- maybe a overdose of compazine (Or any med that ends in zine) Other Reaction(s): Anaphylaxis Soap 09/22/2023 Dial soap Valproic Acid 09/30/2019 Other Reaction(s): *Unknown - Pt Doesn't Remember Venlafaxine Rash Low 09/30/2019 Restless legs Other Reaction(s): Rash, restless legs Medications Medication Sig Dispensed Refills Start Date End Date Status blood sugar diagnostic (ACCU-CHEK GUIDE TEST STRIPS) Strip testing strips USE TO TEST TWICE A DAY 01/09/2022 Active dicyclomine (BENTYL) 20 mg oral tablet Take 1 tablet (20 mg) by mouth twice a day. Pt takes 20mg po one to two times per day Active DULoxetine (CYMBALTA) 30 mg oral delayed release capsule Take 4 capsules (120 mg) by mouth once daily. Active ergocalciferol (VITAMIN D2) 1,250 mcg (50,000 unit) oral capsule Take 1 capsule (50,000 Units) by mouth every 7 (seven) days. 07/02/2021 Active escitalopram oxalate (LEXAPRO) 20 mg oral tablet Take 0.5 tablets (10 mg) by mouth once daily. Active lamoTRIgine (LAMICTAL) 200 mg oral tablet Take 1 tablet (200 mg) by mouth twice a day. Active lidocaine 5% (LIDODERM) Top patch Apply 1-3 patches to skin once a day as needed. 10/17/2021 Active LINZESS 72 mcg oral Cap Take 2.0139 capsules (145 mcg) by mouth every morning before breakfast. 09/14/2022 Active LORazepam (ATIVAN) 1 mg oral tablet TAKE ONE TABLET BY MOUTH THREE TIMES DAILY NEEDED FOR INCREASED ANXIETY.* 09/02/2022 Active metFORMIN (GLUCOPHAGE) 1,000 mg oral tablet TAKE ONE TABLET BY MOUTH TWICE DAILY. due for recheck in november.* 10/16/2022 Active naloxone (NARCAN) 4 mg/actuation Nasal [place] Administer one dose (4 mg) into nostril as needed for opioid overdose and call 911. Give second dose into the other nostril after 2 to 3 minutes if minimal or no response.* 09/14/2022 Active omeprazole (PRILOSEC) 40 mg oral delayed release capsule Take 1 capsule (40 mg) by mouth Daily. Active pramipexole (MIRAPEX) 0.5 mg oral tablet Take 1 tablet (0.5 mg) by mouth once daily. 10/28/2022 Active prazosin (MINIPRESS) 1 mg oral capsule Take 1 capsule (1 mg) by mouth at bedtime. Takes for PTSD nightmares 10/18/2022 Active senna-docusate (SENNA-S) 8.6-50 mg oral tablet Take 1-4 tablets by mouth twice a day. 01/17/2022 Active simvastatin (ZOCOR) 20 mg oral tablet Take 1 tablet (20 mg) by mouth once daily. 10/20/2022 Active topiramate (TOPAMAX) 100 mg oral tablet Take 1.5 tablets (150 mg) by mouth twice a day. Active traZODone (DESYREL) 100 mg oral tablet Take 1 tablet (100 mg) by mouth at bedtime as needed for sleep. 10/15/2022 Active ACCU-CHEK GUIDE GLUCOSE METER meter As directed* 05/19/2023 Act nathaniel buPROPion XL (WELLBUTRIN XL) 150 mg oral extended release tablet 24 HR TAKE ONE TABLET BY MOUTH ONE TIME DAILY* 09/01/2023 Active docusate sodium (COLACE) 100 mg oral capsule Take 1 capsule (100 mg) by mouth twice a day. 20 capsule 09/25/2023 Active methocarbamoL (ROBAXIN) 500 mg oral tablet Take 1-2 tablets (500-1,000 mg) by mouth four times a day. 60 tablet 3 09/25/2023 Active oxyCODONE (OXYCONTIN) 20 mg oral extended release tablet 12 HR Take 1 tablet (20 mg) by mouth every 8 (eight) hours. 10 tablet 09/25/2023 Active HYDROmorphone (DILAUDID) 4 mg oral tablet Take 1-2 tablets (4-8 mg) by mouth every 4 (four) hours as needed. 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 Essential hypertension 11/11/2022 GERD (gastroesophageal reflux disease) HLD (hyperlipidemia) 11/11/2022 Right foot pain 05/13/2022 Overview (11/11/2022): Added automatically from request for surgery [id number] Chronic anemia 08/22/2021 Type 2 diabetes mellitus wit hout complication, without long-term current use of insulin 08/21/2021 History of lumbar fusion 06/27/2020 IBS (irritable bowel syndrome) 06/27/2020 RLS (restless legs syndrome) 06/27/2020 Lumbar radiculopathy 10/01/2019 Opioid dependence with current use 10/01/2019 Allergic reaction caused by a drug 12/23/2012 Encounter for screening for cardiovascular disor ders 12/10/2009 Sciatica 2008 Encounters Date Type Department Care Team Description 2023 9:40 AM CDT Office Visit [facility] (an [facility] of [facility]) [address] [place] [phone] Brock Sawyer MD S/P lumbar fusion (Primary Dx) 2023 Travel 10/28/2023 9:15 AM CDT Office Visit [facility] (an [facility] of [facility]) [address] [place] [phone] Jg Ivory PA-C Postoperative state (Primary Dx); S/P lumbar fusion; Lumbar spine pain 10/28/2023 Travel 09/23/2023 8:00 AM CDT - 09/23/2023 9:35 AM CDT Surgery [facility] Operating Room [address] [place] [address] [place] [address] Brock Sawyer MD BILATERAL HARDWARE REMOVAL L2- PELIVS WITH EXPLORATION OF L3-4 FUSION AND REPLACEMENT OF RODS L3-4 09/23/2023 5:55 AM CDT - 09/25/2023 11:44 AM CDT Hospital Encounter W5 [address] [facility] [place] [address] Brock Sawyer MD Chronic pain disorder Discharge Disposition: Returning Home/Self Care 09/22/2023 Travel 09/04/2023 9:30 AM CDT Office Visit [facility] (an [facility] of [facility]) [address] [place] [address] Brock Sawyer MD Pain due to internal orthopedic prosthetic devices, implants and grafts, initial encounter ([facility]) (Primary Dx); Breakdown (mechanical) of internal fixation device of vertebrae, initial encounter ([facility]) 09/04/2023 Travel from Last 3 Months Social History Tobacco Use Types Packs/Day Years Used Date Smoking Tobacco: Former Cigarettes Smokeless Tobacco: Never Tobacco Cessation:Counseling Given: Not Answered Comments:Quit august 2023 Alcohol Use Standard Drinks/Week Comments Not Currently 0 (1 standard drink = 0.6 oz pur e alcohol) [facility] Utilities Answer Date Recorded In the past 12 months has e [employer], gas, oil, or water [employer] threatened to shut off services in your [...] any time in the past 12 m [facility], were you homeless or living in a long term (including now)? No 09/23/2023 Sex and Gender Information Value Date Recorded Sex Assigned at Not on file Gender Identity Not on file Sexual Orientation Not on file Last Filed Vital Signs Vital Sign Reading Time Taken Comments Blood Pressure 126/76 09/25/2023 10:56 AM CDT Pulse 89 09/25/2023 10:56 AM CDT Temperature 36.7 ??C (98.1 ??F) 09/25/2023 10:56 AM C DT Respiratory Rate 18 09/25/2023 10:56 AM CDT Oxygen Saturation 94% 09/25/2023 10:56 AM CDT Inhaled Oxygen Concentration - - Weight 69.9 kg (154 lb) 2023 10:22 AM CDT Height 174 cm (5' 8.5) 2023 10:22 AM CDT Body Mass Index 23.08 2023 10:22 AM CDT Plan of Treatment Health Maintenance Due Date Last Done Comments Colonoscopy 1962 Eye Exam 1962 Hepatitis C Screening 1962 HgbA1C 1962 Mammogram Screening 1962 Medicare Wellness Visit 1962 Microalbumin Q12 Month 1962 Pap Smear 1962 Anxiety Follow-Up (CELSO-7) 11/21/1963 Depression Follow-Up (PHQ-9) 11/21/1963 Pneumococcal <65 (2 of 2 - PCV) 06/30/2013 3 Creatinine 01/16/2023 01/16/2022, 08/10, 08/21/2021, Additional history exists COVID-19 Vaccine (5 - 2023-2 5 season) 2023 07/30/2021, 12/02/2020, 06/02/2020, Additional history exists Influenza Vaccine (#1) 2023 3, 11/17/2020, 11/26/2019, Additional history exists Yearly Review of HCD 08/27/2024 08/28/2023 Adult Tetanus Booster 11/25/2029 11/26/2019 , 03/20/2010, 05/15/2000 RSV Vaccines (1 - 1-dose 75+ series) 2037 Zoster Vaccine Completed 10/26/2018, 08/17/2018 Medical Devices Implanted Type Area Associate Professor Of Archaeology Device Identifier Shelf Expiration Date Model / Serial / Lot Beltran 50mm 5.5mm Ccm Curv - [id number] Implanted:Qty : 1 on 09/23/2023 by Brock Sawyer MD at [facility] Beltran N/A: Spine Lumbar [employer] [id number] / / Beltran 60mm 5.5mm Ccm Curv - [id number] Implanted:Qty : 1 on 09/23/2023 by Brock Sawyer MD at [facility] Beltran N/A: Spine Lumbar [employer] [id number] / / Set Screw Solera Brk Off - [id number] Implanted:Qty : 4 on 09/23/2023 by Brock Sawyer MD at [facility] Screw/An chor N/A: Spine Lumbar [employer] [id number] / / Procedures Procedure Name Priority Date/Time Associated Diagnosis Comments POCT GLU METER Routine 09/25/2023 7:53 AM CDT POCT GLU METER Routine 09/24/2023 9:24 PM CDT POCT GLU METER Routine 09/24/2023 4:49 PM CDT POCT GLU METER Routine 09/24/2023 12:17 PM CDT POCT GLU METER Routine 09/24/2023 7:59 AM CDT POCT GLU METER Routine 09/23/2023 9:16 PM CDT POCT GLU METER Routine 09/23/2023 5:32 PM CDT POCT GLU METER Routine 09/23/2023 2:07 PM CDT POCT GLU METER Routine 09/23/2023 9:55 AM CDT XR C-ARM SPINE STAT 09/23/2023 9:14 AM CDT INTUBATION Routine 09/23/2023 8:13 AM CDT REMOVE SPINE FIX DEV,POST SGM* 09/23/2023 8:00 AM CDT Pain due to bilateral hip joint prostheses, initial encounter (HCC) Mechanical breakdown of internal fixation device of vertebrae, initial encounter (HCC) POCT GLU METER STAT 09/23/2023 6:21 AM CDT from Last 3 Months Results * (ABNORMAL) POCT Glucose Meter (09/25/2023 7:53 AM CDT) Only the most recent of10 resultswithin the time period is included. GLUCOSE WB METER 127(H) 60 - 100 mg/dL 09/25/2023 11:36 AM CDT [facility] Blood 09/25/2023 7:53 AM CDT 09/25/2023 11:36 AM CDT Brock Sawyer MD LAB POINT OF CARE TEST RESULTS Performing Organization Address City/State/[facility] Co de Phone Number [facility] [address] [place] [address] * XR C-ARM SPINE (09/23/2023 9:14 AM CDT) Anatomical Region Laterality Modality Computed Radiogr aphy 09/23/2023 9:57 AM CDT Impressions 09/23/2023 9:58 AM CDT IMPRESSION: A total of 4 intraoperative fluoroscopic images are obtained during a lumbar spine fusion procedure. REPORT SIGNED BY DR. Kai Villeda Narrative 09/23/2023 9:58 AM CDT EXAM: XR C-ARM SPINE DATE: 09/23/2023 9:14 CLINICAL: Intraoperative imaging COMPARISON: None. Procedure Note Kai Villeda MD - 09/23/2023 EXAM: XR C-ARM SPINE DATE: 09/23/2023 9:14 CLINICAL: Intraoperative imaging COMPARISON: None. IMPRESSION IMPRESSION: A total of 4 intraoperative fluoroscopic images are obtainedduring a lumbar spine fusion procedure. REPORT SIGNED BY DR. Kai Villeda Brock Sawyer MD XRAY ORDERABLE * Intubation (09/23/2023 8:13 AM CDT) Narrative Nay Zamudio APRN, CRNA - 09/23/2023 8:13 AM CDT Nay Zamudio APRN, CRNA ? 09/23/2023 ??8:36 AM Intubation Location: OR Procedural Details: Direct Vision, Pharynx Clear, Dentition Intact and Atraumatic Entry Site: Oral Laryngoscope size: 3 Laryngoscope type: Mac Tube size: 7.0 Maskability: easy Ease: moderate Cormack-Lehane: grade II - visualization of posterior part of the laryngeal aperture (4%) Tube type: Single Lumen Performed by: Nay Zamudio APRN, CRNA, CRNA Post-procedure assessment: BBS and EtCO2 + Cuff inflated: yes ETT to lip: 21 cm Sumit SOTELO from Last 3 Months Advance Directives For more information, please contact: [phone] * Full Code (Latest Code Status on File) Date Activated Date Inactivated Comments 09/24/2023 3:26 PM 09/25/2023 5:49 PM Question Answer Comments How was code status determined? Patient * Full Code Date Activated Date Inactivated Comments 09/23/2023 5:59 AM 09/23/2023 9:48 AM Question Answer Comments How was code status determined? Previous [facility] Care Teams Arc Furnace Operator Relationship Specialty Start Date End Date Formerly Named [facility]- [address] [address] PCP - Primary Care Clinic 09/18/22 [place] [address] [place] [address] PCP - General 05/20/23
--- OUTSIDE RECORDS SUMMARY | 2023-11-30 17:35 | XMS_ITS | Referral Summary ---
Author Organization [facility] Address [address] [place] [address] Care Team Providers Care [employer] Membership Sales Agent Name Role Phone [facility]- Unava ilable Hayes Mcelroy MD Primary Care Provider [phone] Encounters Date Type Department Care Team Description 2023 Travel 2023 9:40 AM CDT Office Visit [facility] ([facility]) [address] [place] [phone] Brock Sawyer MD S/P lumbar fusion (Primary Dx) 10/28/2023 Travel 10/28/2023 9:15 AM CDT Office Visit [facility] ([facility]) [address] [place] [address] Jg Ivory PA-C Postoperative state (Primary Dx); S/P lumbar fusion; Lumbar spine pain 09/23/2023 5:55 AM CDT - 09/25/2023 11:44 AM CDT Hospital Encounter W5 [address] [place] [address] [place] RIVERA [id number] Brock Sawyer MD Chronic pain disorder Discharge Disposition: Returning Home/Self Care 09/23/2023 8:00 AM CDT - 09/23/2023 9:35 AM CDT Surgery [facility] Operating Room [address] [facility] [facility] [place] [address] Brock Sawyer MD BILATERAL HARDWARE REMOVAL L2- PELIVS WITH EXPLORATION OF L3-4 FUSION AND REPLACEMENT OF RODS L3-4 09/22/2023 Travel 09/04/2023 Travel 09/04/2023 9:30 AM CDT Office Visit [facility] (an [facility]) [address] [facility] [place] [phone] Brock Sawyer MD Pain due to internal orthopedic prosthetic devices, implants and grafts, initial encounter (HCC) (Primary Dx); Breakdown (mechanical) of internal fixation device of vertebrae, initial encounter (HCC) from Last 3 Months Allergies Active Allergy Reactions Criticality Noted Date Comments Atorvastatin Other 09/30/2019 Skin irritation around eyes Baclofen Nausea Low 12/23/2012 Vdyxsbwlnzfh-Qutvdtz-Lnosvf e Low 12/23/2012 Cyclobenzaprine Low 04/24/2011 Other [...] 10/16/2022 Active naloxone (NARCAN) 4 mg/actuation Nasal [place] Administer one dose (4 mg) into nostril [...] (11/11/2022): Added automatically from request for surgery [id number] Chronic anemia 08/22/2021 Type 2 diabetes mellitus wit hout complication, without long-term current use of insulin 08/21/2021 History of lumbar fusion 06/27/2020 IBS (irritable bowel syndrome) 06/27/2020 RLS (restless legs syndrome) 06/27/2020 Lumbar radiculopathy 10/01/2019 Opioid dependence with current use 10/01/2019 Allergic reaction caused by a drug 12/23/2012 Encounter for screening for cardiovascular disor ders 12/10/2009 Sciatica 2008 Social History Tobacco Use Types Packs/Day Years Used Date Smoking Tobacco: Former Cigarettes Smokeless Tobacco: Never Tobacco Cessation:Counseling Given: Not Answered Comments:Quit august 2023 Alcohol Use Standard Drinks/Week Comments Not Currently 0 (1 standard drink = 0.6 oz pur e alcohol) [facility] Utilities Answer Date Recorded In the past 12 months has e [employer], gas, oil, or water [employer] threatened to shut off services in your [...] any time in the past 12 m ont, were you homeless or living in a alf (including now)? No 09/23/2023 Sex and Gender [...] 2023 10:22 AM CDT Plan of Treatment Not on file Medical Devices Implanted Type Area Documentation Coordinator Device Identifier Shelf Expiration Date Model / Serial / Lot Beltran 50mm 5.5mm Ccm Curv - [id number] Implanted:Qty : 1 on 09/23/2023 by Brock Sawyer MD at [facility] Beltran N/A: Spine Lumbar [employer] [id number] / / Beltran 60mm 5.5mm Ccm Curv - [id number] Implanted:Qty : 1 on 09/23/2023 by Brock Sawyer MD at [facility] Beltran N/A: Spine Lumbar [employer] [id number] / / Set Screw Solera Brk Off - [id number] Implanted:Qty : 4 on 09/23/2023 by Brock Sawyer MD at [facility] Screw/An chor N/A: Spine Lumbar [employer] [id number] / / Procedures Procedure Name Priority Date/Time [...] - 100 mg/dL 09/25/2023 11:36 AM CDT [facility] Blood 09/25/2023 7:53 AM CDT 09/25/2023 11:36 AM CDT Brock Sawyer MD LAB POINT OF CARE TEST RESULTS [facility] [address] [place] [address] * XR C-ARM SPINE (09/23/2023 9:14 AM [...] Lumen Performed by: Nay Zamudio APRN, CRNA, COMMAND POST SUPERINTENDENT Post-procedure assessment: BBS and EtCO2 + Cuff inflated: yes ETT to lip: 21 cm Sumit SOTELO from Last 3 Months Advance Directives For more information, please contact: [phone] * Full Code (Latest Code Status on File) Date Activated Date Inactivated Comments 09/24/2023 3:26 PM 09/25/2023 5:49 PM Question Answer Comments How was code status determined? Patient * Full Code Date Activated Date Inactivated Comments 09/23/2023 5:59 AM 09/23/2023 9:48 AM Question Answer Comments How was code status determined? Previous Documen tation Care Teams [employer] Membership Sales Agent Relationship Specialty Start Date End Date [facility]- [address] [place] [address] PCP - Primary Care Clinic 09/18/22 [place] [address] [place] [address] PCP - General 05/20/23
--- OUTSIDE RECORDS SUMMARY | 2023-11-30 17:35 | XMS_ITS | Encounter Summary ---
Author Organization [facility] Address [address] [place] [id number] Care Team Providers Care Reel Tender Name Role Phone [facility]- Unava ilable Hayes Mcelroy MD Primary Care Provider [phone] Reason for Referral * (Routine) - Open Specialty Diagnoses / Procedures Referred By Contac t Referred To Contact Diagnoses Postoperative state S/P lumbar fusion Lumbar spine pain Procedures XR SPINE LUMBAR ROUTINE Jg Ivory PA-C [address] [address] Referral ID Status Reason Start Date Expiration Date Visits Re quested Visits Authorized [id number] Open 2023 1 1 Reason for Visit * Reason Comments Post op check Post op: 09/23/23 Philippe ateral RHW L2-Pelvis, with exploration of L3-4 fusion and replacement of rods L3-4 (SMS) Encounter Details Date Type Department Care Team (Latest Contact Info) Description 10/28/2023 9:15 AM CDT Office Visit [facility] of [facility]) [address] [place] [address] Jg Ivory PA-C [address] [facility] [address] [place], [place] [id number] Postoperative state (Primary Dx); S/P lumbar fusion; Lumbar spine pain Social History Tobacco Use Types Packs/Day Years Used Date Smoking Tobacco: Former Cigarettes Smokeless Tobacco: Never Tobacco Cessation:Counseling Given: Not Answered Comments:Quit august 2023 Alcohol Use Standard Drinks/Week Comments Not Currently 0 (1 standard drink = 0.6 oz pur e alcohol) [facility] Utilities Answer Date Recorded In the [...] any time in the past 12 m [facility], were you homeless or living in a nursing home (including now)? No 09/23/2023 Sex and Gender [...] - Inhaled Oxygen Concentration - - Weight 71.2 kg (157 lb) 10/28/2023 10:10 AM CDT Height 175.3 cm (5' 9) 10/28/2023 10:10 AM CDT Body Mass Index 23.18 10/28/2023 10:10 AM CDT documented in this encounter Progress Notes * Lugo, Arlene Oj. - 10/28/2023 9:15 AM CDT Images from the original note were not included. Ramona Sanders 62F Refine SearchContact the [employer] Date of : 1960 Recent Address: [address] [place] [address] [place] Luke [id number] Status of States Queried: View Details View Linked Records (2) Other Tools/Metrics Report Criteria First Name: Ramona Last Name: Marilyn : 1960 Linked Records ? Name: Ramona Sanders : 1960 ID: 1 Gender: Female Address: [address] [place] [address] [place] Luke [address] Name: Ramona Sanders : 1960 ID: [id number] Gender: Female Address: [address] [place] [address] [place] Luke [id number] Report generated on 10/27/2023. Report Date Range: 10/27/2022 - 10/27/2023 PDF ReportExportState Indicators (0) Details RX Summary Summary Total Prescriptions 44 Total Private Pay 1 Total Prescribers 4 Total Pharmacies 2 Narcotics (excluding Buprenorphine) Current MME/day 0.00 30 Day Avg MME/day 188.74 Current Qty 0 Buprenorphine Current mg/day 0.00 30 Day Avg mg/day 0.00 Current Qty 0 UNINTENTIONAL OVERDOSE RISK SCORE MODEL How should I use this information? 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 09/27/2023 09/25/2023 09/27/2023 1 Oxycontin Er 20 Mg Tablet 90.00 30 Ca Van [id number] Sup (6706) 0/090.00 [place] 09/26/2023 09/25/2023 09/26/2023 1 Oxycodone Hcl (Ir) 15 Mg Tab 60.00 30 Ca Van [id number] Sup (6706) 0/0 45.00 [place] 09/26/2023 09/25/2023 09/26/2023 1 Oxycodone Hcl (Ir) 10 Mg Tab 90.00 30 Ca Van [id number] Sup (6706) 0/0 45.00 [place] 09/25/2023 09/25/2023 2 Hydromorphone 4 Mg Tablet 40.00 7 [facility] [id number] Nor (1997) 0/0 114.29 [place] 09/25/2023 09/25/2023 2 Oxycontin Er 20 Mg Tablet 10.00 4 [facility] [id number] Nor (1997) 0/0 75.00 [place] 08/29/2023 08/29/2023 08/29/2023 1 Oxycontin Er 20 Mg Tablet 90.00 30 Ca Van [id number] Sup (6706) 0/090.00 [place] 08/29/2023 08/29/2023 08/29/2023 1 Oxycodone Hcl (Ir) 10 Mg Tab 90.00 30 Ca Van [id number] Sup (6706) 0/0 45.00 [place] 08/29/2023 08/29/2023 08/29/2023 1 Oxycodone Hcl (Ir) 15 Mg Tab 60.00 30 Ca Van [id number] Sup (6706) 0/0 45.00 [place] 08/20/2023 08/20/2023 08/24/2023 1 Lorazepam 1 Mg Tablet 90.00 30 Pe Buc [id number] Sup (6706) 0/0 3.00 [place] 07/30/2023 07/30/2023 07/30/2023 1 Oxycontin Er 20 Mg Tablet 90.00 30 Ca Van [id number] Sup (6706) 0/090.00 [place] 07/30/2023 07/30/2023 07/30/2023 1 Oxycodone Hcl (Ir) 10 Mg Tab 90.00 30 Ca Van [id number] Sup (6706) 0/0 45.00 [place] 07/30/2023 07/30/2023 07/30/2023 1 Oxycodone Hcl (Ir) 15 Mg Tab 60.00 30 Ca Van [id number] Sup (6706) 0/0 45.00 [place] 07/02/2023 07/02/2023 07/02/2023 1 Oxycodone Hcl (Ir) 15 Mg Tab 60.00 30 Ca Van [id number] Sup (2046) 0/0 45.00 [place] 07/02/2023 07/02/2023 07/02/2023 1 Oxycodone Hcl (Ir) 10 Mg Tab 90.00 30 Ca Van [id number] Sup (6706) 0/0 45.00 [place] 07/02/2023 07/02/2023 07/02/2023 1 Oxycontin Er 20 Mg Tablet 90.00 30 Ca Van [id number] Sup (3756) 0/090.00 [place] Providers Total: 4 Showing 1-4 of 4 Items View 1 of 1 Name Address [facility] Zipcode Phone Cate Thomas [address] [address] [facility] [address] Kiara Álvarez, MSN [address] [place] [address] Tasha Hendrickson [address] [place] [address] Vladimir Paez [address] [facility] [address] [facility] [address] [facility] [address] Showing 1-4 of 4 Items View 1 of 1 Pharmacies Total: 2 Showing 1-2 of 2 Items View 1 of 1 Name Address [facility] Zipcode Phone [employer] [phone] [address] [facility] [phone] [place] [address] As a proxy delegate, I have queried the [place] and/or [place] Prescription Monitoring Program for this patient and provided the clinician with the above information for the preceding 12 months. Arlene Lugo CMA * Jg Ivory PA-C - 10/28/2023 9:15 AM CDT CHIEF COMPLAINT: Postop recheck HISTORY OF PRESENT ILLNESS: Ramona Sanders is a 62 y.o. female here today for evaluation and postoperative recheck. We are now approximately 5 weeks status post BILATERAL HARDWARE REMOVAL L2- PELIVS WITH EXPLORATION OF L3-4FUSION AND REPLACEMENT OF RODS (DOS:09/23/23) performed by . She is doing well postoperatively. Her symptoms continue to show signs of improvement. There are no new problems or major changes since our last encounter. Activity level is increasing at a reasonable rate. There have been no problems with surgical incisions. Sleeping and diet are adequate. She is happy with the results thus far. Review of Systems: I have reviewed the last complete 10 point Review of Systems with the patient and any changes in findings are listed as part of today's visit. All other systems are negative. The patient's Past Medical/Surgical/Family/Social history have been reviewed and verified with the patient. The patient's current medications have been reviewed and verified with the patient. OBJECTIVE: There were no vitals filed for this visit. GENERAL: Patient is alert and oriented x3 and appears to be in a moderate amount of discomfort. Patient is cooperative and polite throughout the interview. EXTREMITIES: Symmetrical without obvious deformities. GAIT: Gait exam is normal. NEUROLOGICAL: Motor and sensory examinations in the bilateral lower extremities show no acute negative changes. INCISION: Surgical wound healing addressed. No concerns for erythema, warmth, swelling or excessive/unexpected drainage. Skin closure accessories were removed where appropriate. Imaging & Other Tests: The patient did have imaging prior to this appointment which I reviewed myself; I discussed the findings with the patient. 10/16/23-XR Spine standing scoliosis-[facility] Impression: 1. Post L2-S1 AP fusion and C3-C7 fusion. 2. Mild to moderate thoracic spine degenerative changes. 3. Thoracolumbar dextroscoliosis measured at 11 degrees. 4. Spinal imbalance, as above. 10/16/23-XR Lumbar spine-[facility] Impression: 1. Postop changes as above. No obvious complication. 2. Minimal movement. No evidence of instability. ASSESSMENT 1. 5 weeks status post BILATERAL HARDWARE REMOVAL L2- PELIVS WITH EXPLORATION OF L3-4 FUSION AND REPLACEMENT OF RODS PLAN: 1. I had a long talk with Ramona Sanders today regarding the diagnosis and treatment recommendations. We talked about activity restrictions and modifications. We also discussed medication management and wound care measures going forward. 2. Due to her current condition and response to treatment thus far, I recommend that she focus on conservative care going forward. Currently there is no indication for additional imaging studies or interventional treatment (injections or surgical decision-making). Treatment goals in this case wouldbe directed towards working on ambulation, light stretching, rest, ice/heat application, intermittent OTC medication as needed for soreness, and activity modification (avoiding excessive and/or repetitive bending and twisting, and avoiding heavy lifting). Physical therapy could be considered if patient is interested. Symptoms should stabilize/improve with more time and conservative care. If signs/symptoms persist or worsen, or if neurologic deficit became apparent, then we would reconsider the above. 3. Workability: na. 4. Medication changes: na. She will follow up with her surgical team in 4-6 weeks. At the end of our visit Ramona Sanders understands the current diagnosis and future treatment plan, and questions were answered satisfactorily. I also asked if there are any other questions or concerns otherwise, that she please call back to the office; understanding of this was expressed REMOTE TELESCRIBE ATTESTATION: I, Greg Elliott am serving as a remote telescribe to document services personally performed by Jg Ivory PA-C, and have constructed this note based upon discussion of the servicesprovided and the practitioner's statements to me. I attest that through the duration of documentation services, I remained in a HIPAA compliant location. All documentation has been reviewed by the afo rementioned provider. PROVIDER ATTESTATION: IJg PA-C attest the above information is a true representation of the patient encounter. The information in this document, created by the medical telescribe for me, accurately reflects the services I personally performed and the decisions made by me. I have reviewed this document and have made the final edit(s). Authenticated by Jg Ivory PA-C on 10/29/23 at 7:36 AM. * Missy Lofton LPN - 10/28/2023 9:15 AM CDT Reason for visit: Post op: 09/23/23 Bilateral RHW L2-Pelvis, with exploration of L3-4 fusion and replacement of rods L3-4 (SMS) SYD: Pain Score: 8/10 Symptoms: Patient states that her surgery has failed and she is very upset about her on going pain and increase bilateral SI Joint pain following surgery- hard time ambulating/walking Imaging/Location/ Date/ (NEELA): None following surgry Injections: None Location: Outcome: Physical Therapy: None following surgery Location: Outcome: Current pain meds: Dilaudid, Oxycodone, OxyContin, Robaxin Who manages pain meds: MSBI post op meds Changes in health history since last visit: No changes Any major falls in the last year: no Did the fall(s) result in injury: no Is the patient at risk for falls: no Is a Disability or Workability Form needed - no Current RTW date - Work Comp: no Date: MVA: no Date: Prior Spinal Treatments/ Procedures: 09/23/23 Bilateral RHW L2-Pelvis, with exploration of L3-4 fusion and replacement of rods L3-4 (SMS) 01/16/22 Revision ALIF L3-4 with removal of cage, left ureteral stent placement, a approach (SMS) documented in this encounter Plan of Treatment Scheduled Orders Name Type Priority Associated Diagnoses Orde r Schedule XR SPINE LUMBAR ROUTINE Imaging Routine Postoperative state S/P lumbar fusion Lumbar spine pain Expected: 2023, Expires: 01/27/2024 documented as of this encounter Visit Diagnoses Diagnosis Postoperative state- Primary Other postprocedural status S/P lumbar fusion Arthrodesis status Lumbar spine pain Lumbago documented in this encounter Care Teams Reel Tender Relationship Specialty Start Date End Date [facility]- [address] [address] PCP - Primary Care Clinic 09/18/22 [place] [address] [place] [address] PCP - General 05/20/23 documented as of this encounter
--- OUTSIDE RECORDS SUMMARY | 2023-11-30 17:36 | XMS_ITS | Clinical Summary ---
Author Organization [facility] Address [place], [place] [address] Care Team Providers Care Hand Laster Name Role Phone Hayes Mcelroy MD Primary Care Provider [phone] Allergies Active Allergy Reactions Criticality Noted Date [...] Depression Anxiety Cervical stenosis of spinal canal Encounters Date Type Department Care Team Description 10/16/2023 11:30 AM CDT Ancillary Procedure [facility] [address] [place] [address] 10/16/2023 11:15 AM CDT Ancillary Procedure [facility] [address] [place] [address] 10/16/2023 Orders Only [facility] [address] [place] [address] Greg Tyson PA <No scans attached> from Last 3 Months Immunizations Name Administration Dates Next Due AMB [...] Comments Blood Pressure 105/55 01/17/2022 9:09 AM LEGAL MANAGER Pulse 71 01/17/2022 11:25 AM LEGAL MANAGER Temperature 36.8 ??C (98.3 ??F) 01/17/2022 9:09 AM CS T Respiratory Rate 16 01/17/2022 11:25 AM LEGAL MANAGER Oxygen Saturation 91% 01/17/2022 11:25 AM LEGAL MANAGER Inhaled Oxygen Concentration - - Weight 72.6 kg (160 lb) 04/11/2022 9:58 AM LEGAL MANAGER Height 175.3 cm (5' 9) 04/11/2022 9:58 AM LEGAL MANAGER Body Mass Index 23.63 04/11/2022 9:58 AM LEGAL MANAGER Plan of Treatment Health Maintenance Due Date [...] screening for age 12+ 01/10/2018 01/11/20 17 BMI (ht and wt on same day) for age 18+ 04/12/2023 04/11/2022, 01/30/2022, 01/10/2022, Additional history exists COVID-19 vaccine series (2023- season) 2023 08/12/2023, 07/30/2021, 12/02/2020, Additional history exists Influenza for age 50-64 10/12/2023 Pap test for age 21-65 11/21/2025 , 11/21/2022, 07/28/2017, Additional history exists Medical Devices Implanted Type Area Shuttle Car Operator Device Identifier Shelf Expiration Date Model / Serial / Lot Bone Matrix 10cc Progenix Plusputty Dbm - [id number] Implanted:Qty : 1 on 12/01/2019 by Brock Sawyer MD at [facility] N/A: Lumbar Vertebrae Medtronic Spine/Ortho 06/15/2021 [id number]# / / [id number] Spacer Lmbr [id number] 11deg Elevate Extra-Lordoti c Peek Titn - [id number] Implanted:Qty : 1 on 12/01/2019 by Brock Sawyer MD at [facility] N/A: Lumbar Vertebrae Medtronic Spine/Ortho 09/15/2027 [id number]# / / [id number] Screw Lmbr Post 6.5x50mm Solera 5.5/6 Va Cocr - [id number] Implanted:Qty : 4 on 12/01/2019 by Brock Sawyer MD at [facility] N/A: Lumbar Vertebrae Medtronic Spine/Ortho [id number]# / / 5.5 X 500mm Cc Ebltran Implanted:Qty : 1 on 12/01/2019 by Brock Sawyer MD at [facility] N/A: Lumbar Vertebrae Medtronic Spine/Ortho [id number] / / Bone 1-4mm 90cc Medtronic Chips Canclls Freeze Dried - [id number] Implanted:Qty : 1 on 12/01/2019 by Brock Sawyer MD at [facility] N/A: Lumbar Vertebrae Medtronic Spine/Ortho 04/24/2024 [id number]# / / [id number]: [id number] Bone Matrix Md Infuse Bmp - [id number] Implanted:Qty : 1 on 12/01/2019 by Brock Sawyer MD at [facility] N/A: Lumbar Vertebrae Medtronic Spine/Ortho 11/09/2021 [id number]# / / [id number] Bone 1-4mm 30cc Medtronic Chips Canclls Freeze Dried - [id number] Implanted:Qty : 1 on 12/01/2019 by Brock Sawyer MD at [facility] N/A: Lumbar Vertebrae Medtronic Spine/Ortho 05/31/2024 [id number]# / / [id number]: [id number] Spacer Lmbr [id number] 12deg Elevate Extra-Lordoti c Peek Tit - [id number] Implanted:Qty : 1 on 12/01/2019 by Brock Sawyer MD at [facility] N/A: Lumbar Vertebrae Medtronic Spine/Ortho 05/31/2027 [id number]# / / [id number] Bone Matrix 10cc Progenix Putty Dbm - [id number] Implanted:Qty : 1 on 12/01/2019 by Brock Sawyer MD at [facility] N/A: Lumbar Vertebrae Medtronic Spine/Ortho 01/15/2021 [id number]# / / [id number] Set Screw Lmbr Ant 5.5mm Solera Break Off - [id number] Implanted:Qty : 10 on 12/01/2019 by Brock Sawyer MD at [facility] Explanted:Qty : 1 on 06/27/2020 by Brock Sawyer MD at [facility] N/A: Lumbar Vertebrae Medtronic Spine/Ortho [id number]# / / Vitoss 1.2cc [id number] - [id number] Implanted:Qty : 1 on 01/17/2021 by Brock Sawyer MD at [facility] N/A: Cervical Vertebrae [place] Spine 05/07/2021 [id number] / / [id number] Anterior Cervical Cage 7mm X 12mm X 14mm [id number] - [id number] Implanted:Qty : 1 on 01/17/2021 by Brock Sawyer MD at [facility] N/A: Cervical Vertebrae Cokato Spine 01/25/2023 [id number] / / [id number] [place] Plates 22mm [id number] - [id number] Implanted:Qty : 1 on 01/17/2021 by Brock Sawyer MD at [facility] N/A: Cervical Vertebrae Cokato Spine [id number] / / [place] Self-Starting Variable Screw 4.0x14mm [id number] - [id number] Implanted:Qty : 3 on 01/17/2021 by Brock Sawyer MD at [facility] N/A: Cervical Vertebrae Bri Spine [id number] / / [place] Self-Starting Variable Screw 4.5x14mm [id number] - [id number] Implanted:Qty : 1 on 01/17/2021 by Brock Sawyer MD at [facility] N/A: Cervical Vertebrae [id number] / / Vitoss Bimodal Implanted:Qty : 1 on 08/21/2021 by Brock Sawyer MD at [facility] N/A: Cervical Vertebrae Cokato Spine 05/07/2022 [id number] / / [id number] Bone Matrix 5cc Stimulan Kit Rapid Cure - [id number] Implanted:Qty : 1 on 08/21/2021 by Brock Sawyer MD at [facility] N/A: Cervical Vertebrae [employer] 09/10/2023 [id number] / / [id number] 3.5 X 12mm [place] Oct Polyaxial Screw Implanted:Qty : 3 on 08/21/2021 by Brock Sawyer MD at [facility] N/A: Cervical Vertebrae [employer] [id number] / / 34.0 X 12mm [place] Oct Polyaxial Screw Implanted:Qty : 1 on 08/21/2021 by Brock Sawyer MD at [facility] N/A: Cervical Vertebrae [employer] Inc [id number] / / Set Screw Implanted:Qty : 4 on 08/21/2021 by Brock Sawyer MD at [facility] N/A: Cervical Vertebrae [employer] Inc [id number] / / Contoured Rods4.0 X 25mm Implanted:Qty : 2 on 08/21/2021 by Brock Sawyer MD at [facility] N/A: Cervical Vertebrae K[employer] [id number] / / Bone Matrix Sm Infuse Bmp - [id number] Implanted:Qty : 1 on 01/16/2022 by Brock Sawyer MD at [facility] Lumbar Vertebrae Medtronic Spine/Ortho 02/10/2024 [id number] / / [id number] Bone Matrix 5cc Progenix Plus Putty Dbm - [id number] Implanted:Qty : 1 on 01/16/2022 by Brock Sawyer MD at [facility] Spine Medtronic Spine/Ortho 05/02/2023 [id number] / [id number] / Bone 1-4mm 15cc Medtronic Chips Canclls Freeze Dried - [id number] Implanted:Qty : 1 on 01/16/2022 by Brock Sawyer MD at [facility] Spine Medtronic Spine/Ortho 12/04/2025 [id number] / [id number] / [id number] Implant 16mm Implanted:Qty : 1 on 01/16/2022 by Brock Sawyer MD at [facility] Spine Medtronic Spine/Ortho 07/05/2025 [id number] / / [id number] Tas Bone Screw Implanted:Qty : 1 on 01/16/2022 by Brock Sawyer MD at [facility] Spine Medtronic Spine/Ortho [id number] / / Divergence Screws Implanted:Qty : 4 on 01/16/2022 by Brock Sawyer MD at [facility] Spine Medtronic Spine/Ortho [id number] / / Divergence 18mm Plate Implanted:Qty : 1 on 01/16/2022 by Brock Sawyer MD at [facility] Spine Medtronic Spine/Ortho [id number] / / Explanted Type Area Shuttle Car Operator Device Identifier Shelf Expiration Date Model / Serial / Lot [place] [employer] Precision Spinal Cord Stimulator Explanted:Qty: 1 on 12/01/2019 by Brock Sawyer MD at [facility] N/A: Lumbar Vertebrae [employer] / [id number] / Description:Battery and lead s explanted IPG model SC-1110 Bone Growth Stimulator Explanted:Qty: 1 on 12/01/2019 by Brock Sawyer MD at [facility] N/A: Lumbar Vertebrae Description:SpF-PLUS CLAUDIA [id number] Battery and leads explanted 100mm 5.5 Ti Beltran Explanted:Qty: 2 on 12/01/2019 by Brock Sawyer MD at [facility] N/A: Lumbar Vertebrae Set Screws Solera Explanted:Qty: 6 on 12/01/2019 by Brock Sawyer MD at [facility] N/A: Lumbar Vertebrae Medtronic Spine/Ortho Screw Sm Joint 4.5x20mm Axsos Raymundo [facility] - [id number] Explanted:Qty: 4 on 12/01/2019 by Brock Sawyer MD at [facility] N/A: Lumbar Vertebrae Bri [employer] [id number]# / / 8.5 X 70 Mm Ballast Screw Explanted:Qty: 1 on 06/27/2020 by Brock Sawyer MD at [facility] Right: Lumbar Vertebrae Medtronic Procedures Procedure Name Priority Date/Time Associated Diagnosis Comments XR SPINE LUMBAR 2 VIEWS FLEXION EXTENSION Routine 10/16/2023 11:31 AM CDT History of lumbar fusion XR SPINE STANDING SCOLIOSIS 2 TO 3 VIEW Routine 10/16/2023 11:30 AM CDT History of lumbar fusion HPV HIGH RISK Routine 11/21/2022 9:04 AM CDT XR FFDM MAMMO SCREENING BILATERAL SSP (IA) Routine 11/06/2009 10:54 AM CDT Other screening mammogram from Last 3 Months or Most Recently Relevant to Health Maintenance Results * XR SPINE LUMBAR 2 VIEWS FLEXION EXTENSION (10/16/2023 11:31 AM CDT) Anatomical Region Laterality Modality Spine, LUMBAR SPINE Digital Radi ography 10/16/2023 2:12 PM CDT Impressions 10/16/2023 2:12 PM CDT 1. Postop changes as above. No obvious complication. 2. Minimal movement. No evidence of instability. Dictated by Randal Smith MD @ 10/16/2023 2:12:57 PM (Electronically Signed) Narrative 10/16/2023 2:12 PM CDT For Patients: ??As a result of the Cures Act, medical imaging exams and procedure reports are released immediately into your electronic medical record. ??You may view this report before your referring provider. ??If you have questions, please contact your health care provider. INDICATION: History of lumbar fusion TECHNIQUE: Lateral flexion and extension views of the lumbar spine COMPARISON: Today`s full-length splint films and lumbar spine x-rays of 04/11/2022 FINDINGS: Since 2022 exam, posterior rods and pedicle screws removed. Pedicle screws and posterior rods remain at L3-4. Hardware intact. Postop changes of anterior fusion from L2-S1, as before. Mild L1-2 degenerative changes. Minimal movement between the images. No evidence of instability. Procedure Note Randal Smith MD - 10/16/2023 For Patients: As a result of the Cures Act, medical imagingexams and procedure reports are released immediately into your electronicmedical record. You may view this report before your referring provider.If you have questions, please contact your health care provider. INDICATION: History of lumbar fusion TECHNIQUE: Lateral flexion and extension views of the lumbar spine COMPARISON: Today`s full-length splint films and lumbar spine x-rays of 04/11/2022 FINDINGS: Since 2022 exam, posterior rods and pedicle screws removed. Pedicle screwsand posterior rods remain at L3-4. Hardware intact. Postop changes ofanterior fusion from L2-S1, as before. Mild L1-2 degenerative changes.Minimal movement between the images. No evidence of instability. IMPRESSION: 1. Postop changes as above. No obvious complication. 2. Minimal movement. No evidence of instability. Dictated by Randal Smith MD @ 10/16/2023 2:12:57 PM (Electronically Signed) [facility] * XR SPINE STANDING SCOLIOSIS 2 TO 3 VIEW (10/16/2023 11:30 AM CDT) Anatomical Region Laterality Modality CERVICAL SPINE, THORACIC SPINE, LUMBAR SPINE, Sp ine Digital Radiography 10/16/2023 1:57 PM CDT Impressions 10/16/2023 1:57 PM CDT 1. Post L2-S1 AP fusion and C3-C7 fusion. 2. Mild to moderate thoracic spine degenerative changes. 3. Thoracolumbar dextroscoliosis measured at 11 degrees. 4. Spinal imbalance, as above. Dictated by Randal Smith MD @ 10/16/2023 1:57:22 PM (Electronically Signed) Narrative 10/16/2023 1:57 PM CDT For Patients: ??As a result of the Cures Act, medical imaging exams and procedure reports are released immediately into your electronic medical record. ??You may view this report before your referring provider. ??If you have questions, please contact your health care provider. INDICATION: History of lumbar fusion TECHNIQUE: Upright full-length AP and lateral views of the spine COMPARISON: Today`s lumbar spine x-rays FINDINGS: Postop changes of L2-S1 AP fusion and C3-C7 fusions. Mild to moderate degenerative changes in the thoracic spine. Thoracolumbar dextroscoliosis, centered on the T11-12 disc space and measured at 11 degrees by the method of Berg. Tanner line dropped from the center of the C7 vertebral body falls 5.5 cm anterior to the posterior superior aspect of S1 and 3.5 cm to the left of S1. Procedure Note Randal Smith MD - 10/16/2023 For Patients: As a result of the Cures Act, medical imagingexams and procedure reports are released immediately into your electronicmedical record. You may view this report before your referring provider.If you have questions, please contact your health care provider. INDICATION: History of lumbar fusion TECHNIQUE: Upright full-length AP and lateral views of the spine COMPARISON: Today`s lumbar spine x-rays FINDINGS: Postop changes of L2-S1 AP fusion and C3-C7 fusions. Mild to moderatedegenerative changes in the thoracic spine. Thoracolumbar dextroscoliosis,centered on the T11-12 disc space and measured at 11 degrees by the methodof Berg. Tanner line dropped from the center of the C7 vertebral body falls5.5 cm anterior to the posterior superior aspect of S1 and 3.5 cm to theleft of S1. IMPRESSION: 1. Post L2-S1 AP fusion and C3-C7 fusion. 2. Mild to moderate thoracic spine degenerative changes. 3. Thoracolumbar dextroscoliosis measured at 11 degrees. 4. Spinal imbalance, as above. Dictated by Randal Smith MD @ 10/16/2023 1:57:22 PM (Electronically Signed) [facility] * (ABNORMAL) HPV HIGH RISK (11/21/2022 9:04 AM CDT) TYPE 16 Negative Negative 11/27/2022 11:43 AM CDT [facility] TYPE 18 Negative Negative 11/27/2022 11:43 AM CDT [facility] OTHER HIGH RISK TYPES Positive(A) Negative 11/27/2022 11:43 AM CDT [facility] Other (Cervical) 11/21/2022 9:04 AM CDT 11/25/2022 11:50 AM CDT Narrative [facility] - 11/27/2022 11:43 AM CDT Specimen is positive for the DNA of any one of, or combination of, the following high risk HPV types: 31, 33, 35, 39, 45, 51, 52, 56, 58, 59, 66, 68. HPV types 16 and 18 DNA were undetectable or below the pre-set threshold. ? Methodology: Velia Amador 4800 HPV Test Maryuri Rabago PA-C MICROBIOLOGY [facility] [address] [place] [address], * XR FFDM MAMMO SCREENING BILATERAL SSP [...] Computer-Aided Detection. ?? COMPARISON FILMS: Yes 10/07/08 [facility] FINDINGS: ??Mammographically, the breast tissue is heterogeneously [...] of Computer-Aided Detection. COMPARISON FILMS: Yes 10/07/08 [facility] FINDINGS: Mammographically, the breast tissue is heterogeneously [...] Code Status Discussion: Not Discussed Care Teams Hand Laster Relationship Specialty Start Date End Date Hayes Mcelroy MD PCP - General Family Practice 01/10/17
--- OUTSIDE RECORDS SUMMARY | 2023-11-30 17:36 | XMS_ITS | Encounter Summary ---
Author Organization [facility] Address [address] [facility] [place] [address] Care Team Providers Care Adjunct Mathematics Instructor Name Role Phone [facility]- Unava ilable Hayes Mcelroy MD Primary Care Provider [phone] Reason for Visit * Inpatient Admission (Routine) Specialty Diagnoses / Procedures Referred By Contac t Referred To Contact Diagnoses Pain due to bilateral hip joint prostheses, initial encounter (HCC) Mechanical breakdown of internal fixation device of vertebrae, initial encounter ([facility]) Pain due to bilateral hip joint prostheses, initial encounter [T84.84XA, Z96.643] Mechanical breakdown of internal fixation device of vertebrae, initial encounter ([facility]) [T84.216A] Procedures REMOVE SPINE FIX DEV,POST SGM* BILATERAL HARDWARE REMOVAL L2- PELIVS WITH EXPLORATION OF L3-4 FUSION Referral ID Status Reason Start Date Expiration Date Visits Re quested Visits Authorized [id number] 1 1 Encounter Details Date Type Department Care Team (Late st Contact Info) Description 09/23/2023 8:00 AM CDT - 09/23/2023 9:35 AM CDT Surgery [facility] Operating Room [address] [facility] [place] [address] Brock Sawyer MD [address] [place] [address] [place] [id number] BILATERAL HARDWARE REMOVAL L2- PELIVS WITH EXPLORATION OF L3-4 FUSION AND REPLACEMENT OF RODS L3-4 Surgery Details Date/Time Status Location OR Service Patient Class Case Class Case Type Trauma Case? 09/23/2023 8:00 AM Posted NMR ORS 10 Orthopedic Admit Following Surgery Panel 1 Procedure LRB Anes Op Region Wound Class Comments BILATERAL HARDWARE REMOVAL L 2- PELIVS WITH EXPLORATION OF L3-4 FUSION AND REPLACEMENT OF RODS L3-4 N/A General Spine, Lumbar Clean (I) case #1 Surgeon Surgeon Role Service Panel Brock Sawyer MD Primary Orthopedic 1 documented in this encounter Social History Tobacco Use Types Packs/Day Years Used Date Smoking Tobacco: Former Cigarettes Smokeless Tobacco: Never Tobacco Cessation:Counseling Given: Not Answered Comments:Quit august 2023 Alcohol Use Standard Drinks/Week Comments Not Currently 0 (1 standard drink = 0.6 oz pur e alcohol) [facility] Utilities Answer Date Recorded In the past [...] any time in the past 12 m onths, were you homeless or living in a half-way (including now)? No 09/23/2023 Sex and Gender Information Value Date Recorded Sex Assigned at Not on file Gender Identity Not on file Sexual Orientation Not on file documented as of this encounter Last Filed Vital Signs Vital Sign Reading Time Taken Comments Blood Pressure 123/71 09/23/2023 6:32 AM CDT Pulse 80 09/23/2023 6:32 AM CDT Temperature 37.4 ??C (99.4 ??F) 09/23/2023 6:32 AM CD T Respiratory Rate 16 09/23/2023 6:32 AM CDT Oxygen Saturation 95% 09/23/2023 6:32 AM CDT Inhaled Oxygen Concentration - - Weight 72.6 kg (160 lb) 09/22/2023 11:15 AM CDT Height 175.3 cm (5' 9) 09/22/2023 11:15 AM CDT Body Mass Index 25.25 09/23/2023 12:16 PM CDT documented in this encounter Discharge Summaries * Vladimir Paez PA-C - 09/25/2023 11:44 AM CDT HOSPITAL DISCHARGE SUMMARY Patient Name: Ramona Sanders Date of : 1960 Age: 62 y.o. Primary Physician: Hayes Mcelroy MD Admission Date: 09/23/2023 Discharge Date: 09/25/2023 She will be discharged on 09/25/2023 to home PRINCIPAL DISCHARGE DIAGNOSIS: Pain due to bilateral hip joint prostheses, initial encounter [T84.84XA, Z96.643] Mechanical breakdown of internal fixation device of vertebrae, initial encounter ([facility]) [T84.216A] Principal Problem: Chronic pain disorder PROCEDURES PERFORMED DURING HOSPITALIZATION: Procedure(s) with comments: BILATERAL HARDWARE REMOVAL L2- PELIVS WITH EXPLORATION OF L3-4 FUSION AND REPLACEMENT OF RODS L3-4 (N/A) - case #1 Dr. Brock Sawyer BRIEF HOSPITAL COURSE: This 62 y.o. female was admitted for was elective spine surgery. The patientunderwent the above procedure without complications. Standard prophylactic antibiotics were administered and the patient received DVT prophylaxis per service protocol. The patient's pain was initially controlled on intravenous pain medications and then weaned to oral medications prior to discharge.The patients pain was well controlled and the patient had met all physical therapy goals prior to discharge. Patient was discharged on a Regular diet and opioid medications for pain control. Discharge in stable condition. She will follow up in approximately 2-4 weeks. PERTINENT FINDINGS/RESULTS AT DISCHARGE: BP 126/76 Pulse 89 Temp 98.1 ??F (36.7 ??C) Resp 18 Ht 5' 9 (1.753 m) Wt 77.6 kg (171 lb) SpO2 94% BMI 25.25 kg/m?? Surgical/Procedure Site Lower;Midline Back (Active) Incision Date/Incision Time: 09/23/23832 Incision Type: Incision Orientation: Lower;Midline Location: Back Latest Laboratory Results: Admission on 09/23/2023, Discharged on 09/25/2023 Component Date Value Ref Range Status GLUCOSE WB METER 09/23/2023 126 (H) 60 - 100 mg/dL Final GLUCOSE WB METER 09/23/2023 100 60 - 100 mg/dL Final GLUCOSE WB METER 09/23/2023 137 (H) 60 - 100 mg/dL Final GLUCOSE WB METER 09/23/2023 146 (H) 60 - 100 mg/dL Final GLUCOSE WB METER 09/23/2023 146 (H) 60 - 100 mg/dL Final GLUCOSE WB METER 09/24/2023 104 (H) 60 - 100 mg/dL Final GLUCOSE WB METER 09/24/2023 221 (H) 60 - 100 mg/dL Final GLUCOSE WB METER 09/24/2023 142 (H) 60 - 100 mg/dL Final GLUCOSE WB METER 09/24/2023 157 (H) 60 - 100 mg/dL Final GLUCOSE WB METER 09/25/2023 127 (H) 60 - 100 mg/dL Final No Lab Results Found (last 72 hours) IMPORTANT PENDING TEST RESULTS: None CONDITION AT DISCHARGE: Stabilized DISCHARGE MEDICATIONS: Current Discharge Medication List NEW MEDICATIONS Details docusate sodium (COLACE) 100 mg oral capsule Take 1 capsule (100 mg) by mouth twice a day. Qty: 20 capsule, Refills: 0 HYDROmorphone (DILAUDID) 4 mg oral tablet Take 1-2 tablets (4-8 mg) by mouth every 4 (four) hours as needed. Qty: 40 tablet, Refills: 0 methocarbamoL (ROBAXIN) 500 mg oral tablet Take 1-2 tablets (500-1,000 mg) by mouth four times a day. Qty: 60 tablet, Refills: 3 MEDICATIONS CONTINUED WITH CHANGES Details oxyCODONE (OXYCONTIN) 20 mg oral extended release tablet 12 HR Take 1 tablet (20 mg) by mouth every8 (eight) hours. Qty: 10 tablet, Refills: 0 MEDICATIONS CONTINUED UNCHANGED Details ergocalciferol (VITAMIN D2) 1,250 mcg (50,000 unit) oral capsule Take 1 capsule (50,000 Units) by mouth every 7 (seven) days. lidocaine 5% (LIDODERM) Top patch Apply 1-3 patches to skin once a day as needed. senna-docusate (SENNA-S) 8.6-50 mg oral tablet Take 1-4 tablets by mouth twice a day. DISCONTINUED MEDICATIONS oxyCODONE, immediate release, (ROXICODONE) 10 mg oral tablet oxyCODONE, immediate release, (ROXICODONE) 15 mg oral tablet oxyCODONE, immediate release, (ROXICODONE) 15 mg oral tablet UNREVIEWED MEDICATIONS Details ACCU-CHEK GUIDE GLUCOSE METER meter As directed* blood sugar diagnostic (ACCU-CHEK GUIDE TEST STRIPS) Strip testing strips USE TO TEST TWICE A DAY buPROPion XL (WELLBUTRIN XL) 150 mg oral extended release tablet 24 HR TAKE ONE TABLET BY MOUTH ONETIME DAILY* dicyclomine (BENTYL) 20 mg oral tablet Take 1 tablet (20 mg) by mouth twice a day. Pt takes 20mg poone to two times per day DULoxetine (CYMBALTA) 30 mg oral delayed release capsule Take 4 capsules (120 mg) by mouth once daily. escitalopram oxalate (LEXAPRO) 20 mg oral tablet Take 0.5 tablets (10 mg) by mouth once daily. lamoTRIgine (LAMICTAL) 200 mg oral tablet Take 1 tablet (200 mg) by mouth twice a day. LINZESS 72 mcg oral Cap Take 2.0139 capsules (145 mcg) by mouth every morning before breakfast. LORazepam (ATIVAN) 1 mg oral tablet TAKE ONE TABLET BY MOUTH THREE TIMES DAILY NEEDED FOR INCREASED ANXIETY.* metFORMIN (GLUCOPHAGE) 1,000 mg oral tablet TAKE ONE TABLET BY MOUTH TWICE DAILY. due for recheck in november.* naloxone (NARCAN) 4 mg/actuation Nasal [place] Administer one dose (4 mg) into nostril as needed for opioid overdose and call 911. Give second dose into the other nostril after 2 to 3 minutes if minimal or no response.* omeprazole (PRILOSEC) 40 mg oral delayed release capsule Take 1 capsule (40 mg) by mouth Daily. pramipexole (MIRAPEX) 0.5 mg oral tablet Take 1 tablet (0.5 mg) by mouth once daily. prazosin (MINIPRESS) 1 mg oral capsule Take 1 capsule (1 mg) by mouth at bedtime. Takes for PTSD nightmares simvastatin (ZOCOR) 20 mg oral tablet Take 1 tablet (20 mg) by mouth once daily. topiramate (TOPAMAX) 100 mg oral tablet Take 1.5 tablets (150 mg) by mouth twice a day. traZODone (DESYREL) 100 mg oral tablet Take 1 tablet (100 mg) by mouth at bedtime as needed for sleep. DISCHARGE ORDERS: Discharge Procedure Orders Any questions or concerns Difficulty breating, headache, or visual disturbance Inability to eat, drink, or take medication Increased confusion Numbness/pain in extremity Pain not relieved by medication Persistent nausea or vomiting Increased tenderness or swelling Severe uncontrolled pain Temperature >101 (38.3 degrees Celsius) Activity as tolerated 1. Sitting as tolerated, but no longer than 60 minutes at a time. 2. Limit to no forward or side bending, twisting, pushing, pulling or reaching. Lifting restrictions: Lifting restriction of less than 5-10 pounds 3. No driving for 2 weeks. 4. Wear brace at all times when out of bed if given one. Remove brace when laying in bed and for showering. 5. Walk for exercise only. Discharge Instructions You may move about in bed and rest in any comfortable position. You may want to use pillows to support your back and knees. While lying on your side, place a pillow between your knees and under your head and neck. When changing your position in bed, brace your abdominal muscles and log roll onto your side. Change your position, sitting, standing or lying, frequently when there is discomfort. Shower Keep incision clean and dry for 2 days. Use shower guard over incision for 2 days. After the first week, you may gently wash the incision(s) with warm water and mild soap. Use a blotting technique rather than rubbing. Excessive rubbing may open your incision. Do not take tub baths until ganesh or sutures are removed. Discharge Instructions DRIVING: You may drive when you have regained coordination and have minimal pain. Usually you can resume driving by 7-14 days after surgery. Have someone drive with you the first time. DO NOT drive after taking pain medications or muscle relaxing medication. Dressing Change Steri-Strips: If you have Steri-Strips on your incision(s), they will eventually fall off with washing. If the strips are not off by day fourteen (14) you may remove the strips. Discharge Instructions DIET and BOWEL PROGRAM: Maintain a well balanced diet in order to aid healing. Drink plenty of water. It is important to keep your bowel functioning regularly. Sometimes medications such as stool softeners or suppositories may be needed to help re-establish your bowel program. You may take [id number] stool medications as directed by the package insert. Discharge Instructions You may use ice packs 3-4 times daily as needed for 20-30 minutes each time. Discharge Instructions PAIN: It is normal to have some pain after surgery, especially around the incision(s). The pain, burning and/or numbness usually do not go away immediately after surgery. You may experience an increase in these symptoms due to inflammation and nerve sensitivity from the previously compressed nerve.It should slowly lessen as the nerve heals. You should gradually use less pain medication while youare recovering at home. This can be accomplished by increasing the time between taking the medication, then by reducing the number of pills you take each time. You may supplement your pain medicationwith acetaminophen (Tylenol). DO NOT use ibuprofen, Advil or Aleve because that is known to slow down the healing process at the surgical site. Wound care - Your incision is covered with gauze and tape. -Check wound area daily for any signs of redness, swelling or drainage - take your temperature twice a day (morning and evening) for two weeks and write it down. - 48 hours after surgery, ok to shower normally with incision uncovered. When finished, pat incision dry. If wound is showing signs of drainage, then re-dress incision with clean, dry dressing; continue this daily until wound is no longer draining. If wound is not actively draining, then ok to leave incision open to air. Any steri-strips or dermabond glue will fall off naturally with time. -Do not apply ointments or creams to your incision until completely healed. -Stitches and/or ganesh will be removed at your follow-up appointment after surgery. -Do not take tub baths for 6 weeks after surgery or until your incision is completely healed. Follow Up Referral Priority: Routine Referred to Provider: JOCELYNE SHARIF N Number of Visits Requested: 1 Follow Up Referral Priority: Routine Referred to Provider: JOCELYNE SHARIF N Number of Visits Requested: 1 Special instructions: Obtain further long acting opioids from your pain clinic. FOLLOW-UP: She should see [facility] for first recheck in 2-4 weeks. Call for appointment if one not already in place. [phone] Sawyer [phone] Total time spent for discharge on date of discharge: 20 minutes. Vladimir Paez PA-C [facility] documented in this encounter Medications at Time of Discharge Medication Sig Dispensed Refills Start Date End Date ACCU-CHEK GUIDE GLUCOSE METER meter As directed* 05/19/2023 blood sugar diagnostic (ACCU-CHEK GUIDE TEST STRIPS) Strip testing strips USE TO TEST TWICE A DAY 01/09/2022 buPROPion XL (WELLBUTRIN XL) 150 mg oral extended release tablet 24 HR TAKE ONE TABLET BY MOUTH ONE TIME DAILY* 09/01/2023 dicyclomine (BENTYL) 20 mg oral tablet Take 1 tablet (20 mg) by mouth twice a day. Pt takes 20mg po one to two times per day docusate sodium (COLACE) 100 mg oral capsule Take 1 capsule (100 mg) by mouth twice a day. 20 capsule 09/25/2023 DULoxetine (CYMBALTA) 30 mg oral delayed release capsule Take 4 capsules (120 mg) by mouth once daily. ergocalciferol (VITAMIN D2) 1,250 mcg (50,000 unit) oral capsule Take 1 capsule (50,000 Units) by mouth every 7 (seven) days. 07/02/2021 escitalopram oxalate (LEXAPRO) 20 mg oral tablet Take 0.5 tablets (10 mg) by mouth once daily. HYDROmorphone (DILAUDID) 4 mg oral tablet Take 1-2 tablets (4-8 mg) by mouth every 4 (four) hours as needed. 40 tablet 09/25/2023 lamoTRIgine (LAMICTAL) 200 mg oral tablet Take 1 tablet (200 mg) by mouth twice a day. lidocaine 5% (LIDODERM) Top patch Apply 1-3 patches to skin once a day as needed. 10/17/2021 LINZESS 72 mcg oral Cap Take 2.0139 capsules (145 mcg) by mouth every morning before breakfast. 09/14/2022 LORazepam (ATIVAN) 1 mg oral tablet TAKE ONE TABLET BY MOUTH THREE TIMES DAILY NEEDED FOR INCREASED ANXIETY.* 09/02/2022 metFORMIN (GLUCOPHAGE) 1,000 mg oral tablet TAKE ONE TABLET BY MOUTH TWICE DAILY. due for recheck in november.* 10/16/2022 methocarbamoL (ROBAXIN) 500 mg oral tablet Take 1-2 tablets (500-1,000 mg) by mouth four times a day. 60 tablet 3 09/25/2023 naloxone (NARCAN) 4 mg/actuation Nasal [place] Administer one dose (4 mg) into nostril as needed for opioid overdose and call 911. Give second dose into the other nostril after 2 to 3 minutes if minimal or no response.* 09/14/2022 omeprazole (PRILOSEC) 40 mg oral delayed release capsule Take 1 capsule (40 mg) by mouth Daily. oxyCODONE (OXYCONTIN) 20 mg oral extended release tablet 12 HR Take 1 tablet (20 mg) by mouth every 8 (eight) hours. 10 tablet 09/25/2023 pramipexole (MIRAPEX) 0.5 mg oral tablet Take 1 tablet (0.5 mg) by mouth once daily. 10/28/2022 prazosin (MINIPRESS) 1 mg oral capsule Take 1 capsule (1 mg) by mouth at bedtime. Takes for PTSD nightmares 10/18/2022 senna-docusate (SENNA-S) 8.6-50 mg oral tablet Take 1-4 tablets by mouth twice a day. 01/17/2022 simvastatin (ZOCOR) 20 mg oral tablet Take 1 tablet (20 mg) by mouth once daily. 10/20/2022 topiramate (TOPAMAX) 100 mg oral tablet Take 1.5 tablets (150 mg) by mouth twice a day. traZODone (DESYREL) 100 mg oral tablet Take 1 tablet (100 mg) by mouth at bedtime as needed for sleep. 10/15/2022 documented as of this encounter Progress Notes * Rika Lake RN - 09/25/2023 11:02 AM CDT Ramona Benavides Marilyn [phone] P: Discharge A: Discharged ambulatory to home at 1115 escorted by spouse I: Discharge information and arrangements included: review of written discharge instructions, review of purpose and side effects of new medication, prescriptions sent with patient, Not Applicable. sent with the patient/family., belongings list completed. R:Patient, spouse expressed understanding of information.. * Enoch Curran MD - 09/25/2023 9:06 AM CDT Images from the original note were not included. HOSPITALIST DIVISION PROGRESS NOTE CHIEF COMPLAINT: Post removal of L2-pelvis hardware and replacement of smaller viridiana at L3-L5. POD #2 SUBJECTIVE Patient seen in bed. Doing ok. Pain is better today OBJECTIVE BP 130/88 Pulse 76 Temp 98.1 ??F (36.7 ??C) Resp 17 Ht 5' 9 (1.753 m) Wt 77.6 kg (171 lb) SpO2 95% BMI 25.25 kg/m?? Intake/Output Summary (Last 24 hours) at 09/25/2023 0906 Last data filed at 09/24/2023 2126 Gross per 24 hour Intake 300 ml Output 20 ml Net 280 ml GENERAL APPEARANCE: She is awake, alert and in no acute distress. HEENT: Head - Normocephalic, atraumatic. Eyes - Normal lids and conjuntivae, PERRLA, EOMs intact. Ears - External canals normal, internal canals normal, TM's normal. Nose - No deformity, without masses, no congestion. Oropharynx - Oral mucosa and pharynx normal, moist mucous membranes. NECK: Supple with no adenopathy. RESPIRATORY: Lungs clear to auscultation bilaterally. CARDIOVASCULAR: Normal S1, normal S2, regular rhythm, without murmur. GASTROINTESTINAL: Soft, non-tender, normal bowel sounds. HEME/LYMPH/IMMUNOLOGIC: No palpable lymphadenopathy, no unusual bleeding or bruising. SKIN: Intact, warm, dry. No rashes or lesions. No mottling. NEUROLOGIC: Alert and oriented, moves all extremities. Non-focal exam. EXTREMITIES: Distal Pulses are palpable, no edema. Brisk capillary refill present. Results for orders placed or performed during the hospital encounter of 09/23/23 (from the past 24 hour(s)) POCT Glucose Meter Result Value Ref Range GLUCOSE WB METER 221 (H) 60 - 100 mg/dL POCT Glucose Meter Result Value Ref Range GLUCOSE WB METER 142 (H) 60 - 100 mg/dL POCT Glucose Meter Result Value Ref Range GLUCOSE WB METER 157 (H) 60 - 100 mg/dL Additional comments: I reviewed the patient's new clinical lab test results. I reviewed the patient's medications. I reviewed the patient's new imaging test results. ASSESSMENT Ramona Sanders is a 62 y.o. female with hx of type 2 diabetes managed with metformin, chronic lower back pain on [place] narcotics, hyperlipidemia managed with Zocor who had planned bilateral removalof hardware L2-Pelvis and exploring L3-4 Fusion and replacement of rods L3-L4 under general anesthesia. ACM following for medical management. Principal Problem: Chronic pain disorder Surgical/Procedure Site Lower;Midline Back (Active) Incision Date/Incision Time: 09/23/23 0833 Incision Type: Incision Orientation: Lower;Midline Location: Back PLAN S/p bilateral removal of hardware L2-Pelvis and exploring L3-4 Fusion and replacement of rods [id number] Routine postop cares including DVT prophylaxis pain management, drain management,ambulation per NSGYteam T2DM On PORT DRIER metformin. Hold for now Very low-dose SSI with hypoglycemia protocol Regular diet at patient request Depression Resume [place] D[place] Wellbutrin and Cymbalta Chronic pain syndrome 2/2 LBP On [place] D[place] opoid including Cymbalta. Primary team/NSGY managing pain Disposition per primary team Enoch Curran MD * Vladimir Paez PA-C - 09/25/2023 8:53 AM CDT Neurosurgery Progress Note Date of service: 09/25/2023 Assessment 62 yo female s/p removal of L2-pelvis hardware aside from L3-L4 pedicle screws and replacement of smaller viridiana at L3-L5 on 09/[address] Sawyer Plan: Appreciate medicine assistance Remove HV: removed by myself with scant further serous drainage controlled with mild pressure. Up with PT/OT No brace Reg diet SCDs in bed Dispo: d/c today Subjective: Patient endorses pain is largely well controlled. Wishes to return home today. Denies new numbness,tingling, weakness or other new symptom. Objective: Vitals - BP 130/88 Pulse 76 Temp 98.1 ??F (36.7 ??C) Resp 17 Ht 5' 9 (1.753 m) Wt 77.6 kg (171 lb) SpO2 95% BMI 25.25 kg/m?? Temp (24hrs), Av.5 ??F (36.9 ??C), Min:98 ??F (36.7 ??C), Max:99.2 ??F (37.3 ??C) Physical Exam - A&Ox4, awake, pleasant General: in no acute distress Incision: clean, dry and intact; Respiratory: Breathing unlabored Abdomen: no distention noted Strength: TOM without focal deficit Drains: 0 mL/8 hours 20 mL/24 hours Vladimir Paez PA-C [facility] * Waqas Rodriguez RN - 09/25/2023 6:42 AM CDT Med-Surg Care Progression Note Type: Admission summary Length of stay: 2 days Code Status: Full Code Primary Problem: Bilateral hardware removal L2 pelvis with exploration of lumbar spine Summary: No acute event overnight. Prn dilaudid administered Q2hr. Surgical site intact, shadow drainage. F- Feeding & Fluids: Tolerating regular diet with thin liquids A- Analgesic & Anticoagulation: Comfort Goal: Numeric, Verbal, Faces: 6 - Severe Analgesic Scheduled oxycontin, tylenol and PRN dilaudid given. Anticoagulation/DVT prevention & plan SCDs S- Skin: Chavez Subcategory Concern(s): Sensory Perception: No Impairment Moisture: Rarely Moist Moisture Interventions: Timed toileting Activity: Walks Occasionally Activity Interventions: Safer bundle Nutrition: Adequate Nutrition Interventions: Calorie intake Mobility: No Limitations Mobility Interventions: Stand by assist Friction and Shear: No Apparent Problem Total Chavez Score: 21: Fully mobile, standby assist T- Telemetry: Rhythm: Sinus Rhythm Ectopy: None No tele E- Emotional & Neuro: Participating in cares Neuro Alert and Oriented R- Respiratory: On room air H- Head OUT of Bed & Activity: Activate Fall Alert? (Enter 1 or 0): (not recorded) Ambulating stand-by assist Early mobility Phases 1-4: (not recorded) U- Urologic/bowel: No data recorded Voiding w/o difficulty, walks to bathroom. G- Glycemic Control: Accuchecks QID T- Treatment: Neurosurgery following, Pain management, I- Invasive Devices: PIV, hemovac D- Discharge: TBD * Sole Aguilera RN - 09/24/2023 10:49 PM CDT Med-Surg Care Progression Note Type: Admission summary Length of stay: 1 days Code Status: Full Code Primary Problem: Bilateral hardware removal L2 pelvis with exploration of lumbar spine Summary: No acute changes. Patient received prn dilaudid x 2 this shift, requested IV dilaudid q2h to keep pain manageable. Surgical site intact, no changes in shadowing, very minimal. F- Feeding & Fluids: Tolerating regular diet with thin liquids A- Analgesic & Anticoagulation: Comfort Goal: Numeric, Verbal, Faces: 6 - Severe Analgesic Scheduled oxycontin, tylenol and PRN dilaudid given with effect. Give prn dilaudid q2h requested bypt, next dose due at 0015 Anticoagulation/DVT prevention & plan SCDs S- Skin: Chavez Subcategory Concern(s): Sensory Perception: No Impairment Moisture: Rarely Moist Moisture Interventions: Timed toileting Activity: Walks Occasionally Activity Interventions: Safer bundle Nutrition: Adequate Nutrition Interventions: Calorie intake Mobility: No Limitations Mobility Interventions: Stand by assist Friction and Shear: No Apparent Problem Total Chavez Score: 21: Fully mobile, standby assist T- Telemetry: Rhythm: Sinus Rhythm Ectopy: None No tele E- Emotional & Neuro: Participating in cares Neuro Alert and Oriented R- Respiratory: On room air H- Head OUT of Bed & Activity: Activate Fall Alert? (Enter 1 or 0): (not recorded) Ambulating Able to ambulate with stand-by assist Early mobility Phases 1-4: (not recorded) U- Urologic/bowel: No data recorded Voiding w/o difficulty, walks to bathroom. G- Glycemic Control: Accuchecks QID T- Treatment: Neurosurgery following, Pain management, Post op cares. I- Invasive Devices: PIV, hemovac D- Discharge: TBD * Anjali Mclean RN - 09/24/2023 7:44 PM CDT Med-Surg Care Progression Note Type: Admission summary Length of stay: 1 days Code Status: Full Code Primary Problem: Bilateral hardware removal L2 pelvis with exploration of lumbar spine Summary: Patient crying this morning in pain, said her pain is not being controlled here and wants to go home AMA. Patient has a hx of multiple surgeries and chronic pain. Says she takes 20 mg oxycodone at home so it won't do anything for her, says dilaudid is the only thing that works for her. Gave dilaudid Q2H, and by this afternoon patient started to be more relaxed and said we seemed to be catching up on the pain. Patient ambulated in the hallway x 3 this shift. Hemovac output total for this shift: 20cc. F- Feeding & Fluids: Tolerating regular diet with thin liquids A- Analgesic & Anticoagulation: Comfort Goal: Numeric, Verbal, Faces: 6 - Severe Analgesic Scheduled oxycontin, tylenol and PRN dilaudid given with effect. Anticoagulation/DVT prevention & plan SCDs S- Skin: Chavez Subcategory Concern(s): Sensory Perception: No Impairment Moisture: Rarely Moist Moisture Interventions: Timed toileting Activity: Walks Occasionally Activity Interventions: Safer bundle Nutrition: Adequate Nutrition Interventions: Calorie intake Mobility: No Limitations Mobility Interventions: Stand by assist Friction and Shear: No Apparent Problem Total Chavez Score: 21: Fully mobile, standby assist T- Telemetry: Rhythm: Sinus Rhythm Ectopy: None No tele E- Emotional & Neuro: Participating in cares Neuro Alert and Oriented R- Respiratory: On room air H- Head OUT of Bed & Activity: Activate Fall Alert? (Enter 1 or 0): (not recorded) Ambulating Able to ambulate with stand-by assist Early mobility Phases 1-4: (not recorded) U- Urologic/bowel: No data recorded Voiding ; walks to bathroom. G- Glycemic Control: Accuchecks QID T- Treatment: Neurosurgery following, Pain management, Post op cares. I- Invasive Devices: PIV, hemovac D- Discharge: TBD * Enoch Curran MD - 09/24/2023 3:26 PM CDT Images from the original note were not included. HOSPITALIST DIVISION PROGRESS NOTE CHIEF COMPLAINT: Post removal of L2-pelvis hardware and replacement of smaller viridiana at L3-L5. POD #1 SUBJECTIVE Patient seen in bed. Doing ok. States she is managing pain. Overall she feels pain is not adequately controlled. Denies any other symptoms. Requesting regular diet. OBJECTIVE BP 114/61 Pulse 83 Temp 98.8 ??F (37.1 ??C) Resp 16 Ht 5' 9 (1.753 m) Wt 77.6 kg (171 lb) SpO2 91% BMI 25.25 kg/m?? Intake/Output Summary (Last 24 hours) at 09/24/2023 1526 Last data filed at 09/24/2023 1500 Gross per 24 hour Intake 0 ml Output 140 ml Net -140 ml GENERAL APPEARANCE: She is awake, alert and in no acute distress. HEENT: Head - Normocephalic, atraumatic. Eyes - Normal lids and conjuntivae, PERRLA, EOMs intact. Ears - External canals normal, internal canals normal, TM's normal. Nose - No deformity, without masses, no congestion. Oropharynx - Oral mucosa and pharynx normal, moist mucous membranes. NECK: Supple with no adenopathy. RESPIRATORY: Lungs clear to auscultation bilaterally. CARDIOVASCULAR: Normal S1, normal S2, regular rhythm, without murmur. GASTROINTESTINAL: Soft, non-tender, normal bowel sounds. HEME/LYMPH/IMMUNOLOGIC: No palpable lymphadenopathy, no unusual bleeding or bruising. SKIN: Intact, warm, dry. No rashes or lesions. No mottling. NEUROLOGIC: Alert and oriented, moves all extremities. Non-focal exam. EXTREMITIES: Distal Pulses are palpable, no edema. Brisk capillary refill present. Results for orders placed or performed during the hospital encounter of 09/23/23 (from the past 24 hour(s)) POCT Glucose Meter Result Value Ref Range GLUCOSE WB METER 137 (H) 60 - 100 mg/dL POCT Glucose Meter Result Value Ref Range GLUCOSE WB METER 146 (H) 60 - 100 mg/dL POCT Glucose Meter Result Value Ref Range GLUCOSE WB METER 104 (H) 60 - 100 mg/dL POCT Glucose Meter Result Value Ref Range GLUCOSE WB METER 221 (H) 60 - 100 mg/dL Additional comments: I reviewed the patient's new clinical lab test results. I reviewed the patient's medications. I reviewed the patient's new imaging test results. ASSESSMENT Ramona Sanders is a 62 y.o. female with hx of type 2 diabetes managed with metformin, chronic lower back pain on PORT DRIER narcotics, hyperlipidemia managed with Zocor who had planned bilateral removalof hardware L2-Pelvis and exploring L3-4 Fusion and replacement of rods L3-L4 under general anesthesia. ACM following for medical management. Principal Problem: Chronic pain disorder Surgical/Procedure Site Lower;Midline Back (Active) Incision Date/Incision Time: 09/23/23 0833 Incision Type: Incision Orientation: Lower;Midline Location: Back PLAN S/p bilateral removal of hardware L2-Pelvis and exploring L3-4 Fusion and replacement of rods L3-G4nswph Routine postop cares including DVT prophylaxis pain management, drain management,ambulation per NSGYteam T2DM On PORT DRIER metformin. Hold for now Very low-dose SSI with hypoglycemia protocol Regular diet at patient request Depression Resume PORT DRIER Wellbutrin and Cymbalta Chronic pain syndrome 2/2 LBP On PORT DRIER opoid including Cymbalta. Primary team/NSGY managing pain Disposition per primary team Enoch Curran MD * Fabiola Zavala PA-C - 09/24/2023 2:48 PM CDT Neurosurgery Progress Note Date of service: 09/24/2023 Assessment 62 yo female s/p removal of L2-pelvis hardware aside from L3-L4 pedicle screws and replacement of smaller viridiana at L3-L5 on 09/[address] Sawyer Plan: Appreciate medicine assistance Continue HV drain until < 30 cc/shift; likely remove tomorrow AM? Pain control-using frequent IV dilaudid. Got behind on pain mgmt overnight, now playing catch up Up with PT/OT No brace Reg diet SCDs in bed Dispo: possible dc home tomorrow if pain better controlled and drain removed Subjective: No new weakness or pain in legs. Questions about what was done intra-op. Pain was not well managed overnight, so now using frequent IV dilaudid to catch up Objective: Vitals - BP 114/61 Pulse 83 Temp 98.8 ??F (37.1 ??C) Resp 16 Ht 5' 9 (1.753 m) Wt 77.6 kg (171 lb) SpO2 91% BMI 25.25 kg/m?? Temp (24hrs), Av.3 ??F (36.8 ??C), Min:97.9 ??F (36.6 ??C), Max:98.8 ??F (37.1 ??C) Physical Exam - Alertness: A&O x 3 General: in no acute distress Incision: clean, dry and intact. HV drain in place with bloody output Respiratory: Breathing unlabored Abdomen: no distention noted Strength: 5/5 iliopsoas, 5/5 quadriceps, 5/5 hamstrings, 5/5 anterior tibialis, 5/5 extensor hallucis longus, and 5/5 gastrocnemius. Imaging: No new imaging Drains: 270 mL/24 hours LABS: No results found for: POTASSIUM, SODIUM, WBC Fabiola Zavala PA-C [facility] * Soco Paez RN - 09/24/2023 5:37 AM CDT Med-Surg Care Progression Note Type: Shift to shift summary Length of stay: 1 days Code Status: Prior Primary Problem: Bilateral hardware removal L2 pelvis with exploration of lumbar spine Summary: Alert and oriented with difficulty pain control. Pt declined scheduled oxycodone this shift, states oral pain meds will not help her. PRN dilaudid given with some relief. No acute changes overnight. Blood pressure 124/65, pulse 73, temperature 98.1 ??F (36.7 ??C), resp. rate 16, height 5' 9 (1.753 m), weight 77.6 kg (171 lb), SpO2 96%. F- Feeding & Fluids: Diabetic diet, thin liquids. A- Analgesic & Anticoagulation: Comfort Goal: Numeric, Verbal, Faces: 6 - Severe Analgesic PRN dilaudid given for pain with some relief. Anticoagulation/DVT prevention & plan SCDs S- Skin: Chavez Subcategory Concern(s): Sensory Perception: No Impairment Moisture: Occasionally Moist Moisture Interventions: Timed toileting Activity: Walks Occasionally Activity Interventions: Safer bundle Nutrition: Probably Inadequate Nutrition Interventions: Calorie intake Mobility: Very Limited Mobility Interventions: Low air loss support Friction and Shear: No Apparent Problem Total Chavez Score: 17: Pt is able to shift weight independently. T- Telemetry: Rhythm: Sinus Rhythm Ectopy: None No tele E- Emotional & Neuro: Participating in cares Neuro Alert and Oriented R- Respiratory: On room air H- Head OUT of Bed & Activity: Activate Fall Alert? (Enter 1 or 0): (not recorded) Up with A1 to bathroom. U- Urologic/bowel: No data recorded Voiding without difficulty in toilet. G- Glycemic Control: Accuchecks QID T- Treatment: Pain management , IV abx, surgery following I- Invasive Devices: PIV, hemovac D- Discharge: TBD * Santa Crandall RN - 09/23/2023 4:07 PM CDT Med-Surg Care Progression Note Type: Admission summary Length of stay: 0 days Code Status: Prior Primary Problem: Bilateral hardware removal L2 pelvis with exploration of lumbar spine Summary:Patient admitted post-surgery this shift. Patient has hx of multiple surgeries and chronic pain. Patient is mobile, but d/t pain medications and post surgical status is a fall risk; bed alarmis on. Patient is alert and oriented but confused. VSS F- Feeding & Fluids: Tolerating regular diet with thin liquids A- Analgesic & Anticoagulation: Comfort Goal: Numeric, Verbal, Faces: 6 - Severe Analgesic Post-surgical pain treated with Tylenol and Dilaudid; pain is currently rated at a 6. Anticoagulation/DVT prevention & plan SCDs S- Skin: Chavez Subcategory Concern(s): Sensory Perception: No Impairment Moisture: Occasionally Moist Moisture Interventions: Timed toileting Activity: Walks Occasionally Activity Interventions: Safer bundle Nutrition: Probably Inadequate Nutrition Interventions: Calorie intake Mobility: Very Limited Mobility Interventions: Stand by assist Friction and Shear: No Apparent Problem Total Chavez Score: 17: Fully mobile, standby assist T- Telemetry: Rhythm: Sinus Rhythm Ectopy: None No tele E- Emotional & Neuro: Participating in cares Neuro Alert and Oriented R- Respiratory: On room air H- Head OUT of Bed & Activity: Activate Fall Alert? (Enter 1 or 0): (not recorded) Ambulating Able to ambulate with stand-by assist Early mobility Phases 1-4: (not recorded) U- Urologic/bowel: No data recorded Voiding ; walks to bathroom. G- Glycemic Control: Accuchecks QID T- Treatment: Consults , surgery following, pain control I- Invasive Devices: PIV, hemovac D- Discharge: TBD * Santa Crandall RN - 09/23/2023 4:06 PM CDT P. Admission A. Condition on Admit: alert, post-surgery. Patient/Family Concerns: Patient expressed concern about pain relief . I. Initial Interventions included: administered medication for pain (dilaudid, oxycodone). Orientation to Unit: Patient oriented to how to call for help, name of assigned career developer, PatientInformation booklet, initial physician orders, hourly rounding procedures, unit and plan of care. R. Patient expressed understanding of information.. documented in this encounter Consult Notes * Eli Carias, PT - 09/24/2023 8:30 AM CDT Acute Physical Therapy Evaluation Patient Name: Ramona Sanders Today's Date: 09/24/2023 Admission Date: 09/23/2023 Assessment PT Assessment/Recommendations Assessment: 62 year old female who had planned bilateral removal of hardware L2- Pelvis and exploring L3-4 Fusion and replacement of rods L3-L4 on 09/23. Pt lives at home with her SO, fully independentat baseline without AD. She endorses 7/10 pain at start of session. Ambulates ~125 ft with RW and SBA, slow but steady gait. She is most limited by worsening pain during mobility, limiting progression. She becomes tearful at end of session, endorses 10/10 pain, RN notified. Pt has multiple steps toaccess home environment, however anticipate pending improved pain control she will be safe to d/c home with support and OP PT. Will continue to follow acutely to progress stairs and ambulation. Strengths: Age, Prior level of function, Patient cooperation, Ambulatory, Good strength Limitations/Discharge Barriers: Pain Prognosis: Good Recommendations for Nursing: Mobilize assist of 1 with gait belt, Ambulate 2- 3x/day, Up to chair 2-3x/day, Ambulate to bathroom, Use of assistive device with mobility Type of Assistive Device: RW Discharge Support Recommendations: Is safe to discharge to previous living situation with prior level of assist/support Post Acute Therapy Needs: Other Comment: OP PT Plan PT Frequency: 1x/day, 3-5 days a week Interventions: Gait training, Therapeutic exercise, Therapeutic activities, Neuromuscular re-education Encounter Details General Diagnosis: Bilateral hardware removal L2 pelvis with exploration of lumbar spine Admission/Diagnosis Details: 62 year old female who had planned bilateral removal of hardware L2-Pelvis and exploring L3-4 Fusion and replacement of rods L3-L4 on 09/23. Pertinent Past Medical History: DM II, chronic lower back pain on PORT DRIER narcotics, HLD Patient Seen In: Room Family/Caregiver Present: No Subjective Comments: Pt resting in bed, reports 7/10 pain but agreeable to PT Lines and Tubes: Hemo Vac Subjective/Social History Home Setup Type of Home: House Lives With: Significant Other Home Layout: Multi-level Home Entry: Stairs to enter without rails Number of stairs: 1 Stairs within Home: Stairs with rails Rails: Unilateral Number of stairs: 3 flight, 6 steps to bedroom/ bathroom Prior Level of Functional Mobility Independent with: All Mobility Mobility Equipment Used: None DME owned: Rolling walker, Single point cane, Shower chair History of falls: Denies Pain Patient complained of 7-10/10 pain in low back, RN notified. Objective Cognitive Status Orientation Level: Oriented X4 Arousal/Alertness: Appropriate responses to stimuli Following Commands: Follows multistep commands Safety Judgment: Intact Motor Planning/Processing: Within Functional Limits Therapy Vitals BP: 114/86 HR: 83 SpO2: 95 Oxygen Delivery Device: Room Air ROM RLE: WFL LLE: WFL Strength Overall RLE Strength: WFL Overall LLE Strength: WFL Sensation Light Touch: Intact in the RLE, Intact in the LLE Sensation Comments: Denies numbness and tingling Patient is functioning as follows: Bed Mobility Supine to Sit: Standby assist Sit to Supine: Standby assist Dangling: Standby assist Bridging/Repositioning: Standby assist Scooting: Standby assist Setup/Equipment: Bed rail Transfers Transfer Type: Sit to/from Stand Sit to/from Stand Level of Assist: Contact guard/steadying assist Assistive Device: Rolling walker Comments: Slow to rise but steady Ambulation Ambulation Assessment: Bout 1 Bout 1 Distance (ft): 125 ft Assistive Device: Rolling walker Level of Assist: Standby Assist Quality of Gait: Slow but steady gait, most limited by worsening pain limiting progression [facility] AM-PAC 6-Clicks Turning over in bed (including adjusting bed clothes, sheets, and blankets): Modified independent/independent Sitting down and standing up from a chair with arms: Minimum/contact guard/standby assist Moving from lying on back to sitting on the side of bed: Minimum/contact guard/standby assist Moving to and from a bed to a chair: Minimum/contact guard/standby assist Walk in hospital room?: Minimum/contact guard/standby assist Climbing 3-5 steps with a railing: Minimum/contact guard/standby assist [facility] 6 Clicks: Mobility Total Score: 19 The following scores are predictive of discharge disposition during acute hospitalization: Home= 20or greater; Home with Home Health=18; Continued skilled care at appropriate facility= 14 or less. Education/Safety Education Provided Patient Education: Role of PT, Ambulation, Safe use of assistive device, Safety with mobility, Discharge recommendations Family Education: Family not present Safety Interventions Fall Risk?: Yes Safety Interventions/Patient Disposition: Standard interventions, Bed alarm on, In bed, Call light in hand, All needs within reach, Notified nursing staff Goals Time Frame Goals target date: 10/01/23 Patient/family participation in goal setting Patient/family participation in goal setting: No Patient will Participate in PT Evaluation Patient will participate in PT evaluation in order to provide safe discharge mobility recommendations: Goal met Supine to Sit Patient will perform supine to sit with: Modified independence Sit to Supine Patient will perform sit to supine with: Modified independence Sit to/from Stand Patient will perform sit to/from stand transfer with: Modified independence Assistive Device: Least restrictive assistive device Bed to Chair Patient will transfer bed to chair with: Modified independence Transfer type: Stand pivot Assistive Device: Least restrictive assistive device Gait Level of Assist: Supervision Assistive Device: Least restrictive assistive device Distance: 200 ft Stair Negotiation Patient will perform stairs with: Standby assist UE Support: Unilateral rail Number of Stairs: 1 flight Pattern: Step to pattern TIME SPENT WITH PATIENT PT Time Spent with Patient for Evaluation PT Evaluation: 17 PT Timed Code Treatment Minutes PT Total Billable Minutes: 17 Minutes * Enoch Curran MD - 09/23/2023 1:35 PM CDT Images from the original note were not included. HOSPITALIST DIVISION CONSULT NOTE Patient Name: Ramona Sanders Address: [address] [place] [address] [place] [id number] Age:62 y.o. Sex: female Admission Date/Time: 09/23/2023 5:55 AM Requesting Physician: Brock Sawyer MD Hospital Attending Physician: Brock Sawyer MD I was asked to see this patient at the request of Brock Cordon for medical co-management in the post ops period. HPI: Ramona Sanders is a 62 y.o. female who had planned bilateral removal of hardware L2-Pelvisand exploring L3-4 Fusion and replacement of rods L3-L4 under general anesthesia. She tolerated procedure well. ACM was consulted for postoperative medical management. Her past medical history is significant for type 2 diabetes managed with metformin, chronic lower back pain on PORT DRIER narcotics, hyperlipidemia managed with Zocor. At bedside evaluation patient was seen lying in bed in moderate to severe painful distress. She complained of severe incisional pain that is on and off. She is yet to receive her pain medication. Sheotherwise denies chest pain, shortness of breath. No nausea or vomiting. Denies numbness, tingling sensation, weakness to lower extremities. She remains hemodynamically stable. REVIEW OF SYSTEMS A comprehensive review of systems was negative except for items noted in the HPI/Subjective. Severeincisional pain PAST MEDICAL HISTORY Past Medical History: Diagnosis Date Chronic pain back and neck-goes to a pain clinic Diabetes mellitus PAST SURGICAL HISTORY Past Surgical History: Procedure Laterality Date HX APPENDECTOMY HX CHOLECYSTECTOMY ORTHOPEDICS Bilateral feet CURRENT MEDS Current Facility-Administered Medications: acetaminophen (TYLENOL) tablet 1,000 mg, 1,000 mg, oral, QID, 1,000 mg at 09/23/23 1324 OR acetaminophen (TYLENOL) rectal suppository 650 mg, 650 mg, Rectal, QID, Baltazar Jarrell PA-C alum-mag hydroxide-simethicone (MAALOX PLUS) suspension 15-30 mL, 15-30 mL, oral, Q6H PRN, Baltazar Jarrell PA-C ceFAZolin (Ancef) 1 g in sodium chloride 0.9 % 100 mL IV piggyback, 1 g, Intravenous, Q8H (NS), Toyin Dalton Pharm D dextrose 50% in water IV solution 25-50 mL, 25-50 mL, Intravenous, PRN, Baltazar Jarrell PA-C dextrose 50% in water IV solution 25-50 mL, 25-50 mL, Intravenous, PRN, Baltazar Jarrell PA-C docusate sodium (COLACE) capsule 100 mg, 100 mg, oral, Twice Daily, Baltazar Jarrell PA-C, 100 mg at 09/23/23 1324 glucagon, human recombinant (Glucagen) injection (conc: 1 mg/mL) 1 mg, 1 mg, IntraMUSCULAR, Q 15 MINS PRN, Baltazar Jarrell PA-C glucagon, human recombinant (Glucagen) injection (conc: 1 mg/mL) 1 mg, 1 mg, IntraMUSCULAR, Q 15 MINS PRN, Baltazar Jarrell PA-C HYDROmorphone (DILAUDID) syringe 0.5-1 mg, 0.5-1 mg, Intravenous, Q2H PRN, Vladimir Paez PA-C, 1 mg at 09/23/23 1204 hydrOXYzine pamoate (Vistaril) capsule 50 mg, 50 mg, oral, Q6H PRN, Vladimir Paez PA-C methocarbamoL (ROBAXIN) tablet 500-1,000 mg, 500-1,000 mg, oral, QID, Vladimir Paez PA-C naloxone (NARCAN) injection 0.1 mg, 0.1 mg, Intravenous, Q1 MINUTE PRN, Baltazar Jarrell PA-C ondansetron (Zofran) injection 4 mg, 4 mg, Intravenous, Q8H PRN OR ondansetron (Zofran) disintegrating tablet 4 mg, 4 mg, oral, Q8H PRN, Baltazar Jarrell PA-C oxyCODONE (immediate release) (ROXICODONE) tablet 15-20 mg, 15-20 mg, oral, Q4H PRN, Baltazar Jarrell PA-C oxyCODONE (oxyCONTIN) extended release tablet 12 HR 20 mg, 20 mg, oral, Q8H, Baltazar Jarrell PA-C, 20 mg at 09/23/23 1324 ALLERGIES/SENSITIVITIES Allergies Allergen Reactions Atorvastatin Other Skin irritation around eyes Baclofen Nausea Odbnhhiszckv-Gqwtann-Uznndyl Compazine [Prochlorperazine] Other Tongue in and out of mouth, screams-- maybe a overdose of compazine (Or any med that ends in zine) Cyclobenzaprine Hcl Other problems with RLS Diphenhydramine-Zinc Acetate Other Makes restless leg symptoms worse. Droperidol Other Worsens RLS Hydroxyzine Hcl Methocarbamol Nausea and Other Causes problems with RLS Mirtazapine Morphine Itching Phenothiazines Other convulsions Soap Dial soap Valproic Acid Other Reaction(s): *Unknown - Pt Doesn't Remember Venlafaxine Rash Restless legs FAMILY HISTORY No family history on file. SOCIAL HISTORY Social History Socioeconomic History Marital status: Spouse name: Not on file Number of children: Not on file Years of education: Not on file Highest education level: Not on file Occupational History Not on file Tobacco Use Smoking status: Former Types: Cigarettes Smokeless tobacco: Never Tobacco comments: Quit august 2023 Substance and Sexual Activity Alcohol use: Not Currently Drug use: Never Sexual activity: Not on file Other Topics Concern Not on file Social History Narrative Not on file Social Determinants of Health Food Insecurity: Not on file Transportation Needs: Not on file Intimate Partner Violence: Not on file Housing Stability: Not on file PHYSICAL EXAM General Appearance:awake and alert BP 103/73 Pulse 88 Temp 97.2 ??F (36.2 ??C) Resp 17 Ht 5' 9 (1.753 m) Wt 77.6 kg (171 lb) SpO2 93% BMI 25.25 kg/m?? Body mass index is 25.25 kg/m??. HEENT: Head - normocephalic, atraumatic Eyes - normal lids and conjunctivae, PERRLA, EOMs intact Ears - external canals normal, internal canals normal, TM's normal Nose - no deformity, without masses, no congestion Oropharynx - Oral mucosa and pharynx normal, moist mucous membranes NECK: supple, tracheal midline, no tracheal deviation, no crepitus, no palpable lymphadenopathy, nomasses, no thyromegaly, Carotids: no bruits RESPIRATORY: lungs clear to auscultation and percussion, normal diaphragmatic movement, chest symmetrical BREASTS: symmetrical, no masses, axillae negative to palpation CARDIOVASCULAR: normal S1, normal S2, regular rhythm GASTROINTESTINAL: soft, non-tender, round, flat, no hepatosplenomegaly or palpable masses HEME/LYMPH/IMMUNOLOGIC: no palpable lymphadenopathy, no unusual bleeding or bruising MUSCULOSKELETAL: without deformity, normal range of motion SKIN: intact, warm, dry NEUROLOGIC: alert and oriented x 4, moves all extremities, cranial nerves 2-12 intact except for EXTREMITIES: no deformities or ulcerations : Voiding independently PSYCHOLOGICAL/JUDGEMENT: intact/normal Results for orders placed or performed during the hospital encounter of 09/23/23 (from the past 24 hour(s)) POCT Glucose Meter Result Value Ref Range GLUCOSE WB METER 126 (H) 60 - 100 mg/dL POCT Glucose Meter Result Value Ref Range GLUCOSE WB METER 100 60 - 100 mg/dL ADDITIONAL COMMENTS: I reviewed the patient's new clinical lab test results. I reviewed the patient's medications. I reviewed the patient's new imaging test results. CONSULTATION ASSESSMENT AND PLAN/RECOMMENDATIONS: Ramona Sanders is a 62 y.o. female who had planned bilateral removal of hardware L2-Pelvis and exploring L3-4 Fusion and replacement of rods L3-L4 under general anesthesia. She tolerated procedure well. ACM was consulted for postoperative medical management. Her past medical history is significant for type 2 diabetes managed with metformin, chronic lower back pain on PORT DRIER narcotics, hyperlipidemia managed with Zocor. Principal Problem: Chronic pain disorder S/p bilateral removal of hardware L2-Pelvis and exploring L3-4 Fusion and replacement of rods L3-T1ohcmi Routine postop cares including DVT prophylaxis pain management, ambulation per NSGYteam T2DM On PORT DRIER metformin. Hold for now Very low-dose SSI with hypoglycemia protocol Depression Resume PORT DRIER Wellbutrin and Cymbalta Chronic pain syndrome 2/2 LBP On PORT DRIER opoid including Cymbalta. Primary team/NSGY managing pain I thank Dr. for the opportunity to participate in the patient's care. Time: 55 minutes Enoch Curran MD documented in this encounter Nursing Notes * Rika Lake RN - 09/25/2023 11:00 AM CDT Problem: Falls/Injury-Risk of Goal: Absence of Falls/Injury Outcome: Completed Problem: Pressure Injury - Risk of Goal: Absence of pressure injury Outcome: Completed Problem: Communication Goal: Demonstrates/exhibits ability to communicate needs effectively Outcome: Completed Problem: SAFETY Goal: *Communicates safety needs Outcome: Completed Goal: Absence of infection Outcome: Completed Problem: Pain Goal: Exhibits reduction in pain to a level of acceptable comfort Outcome: Completed Problem: Falls/Injury-Risk of Goal: Absence of Falls/Injury Outcome: Completed Problem: Discharge Planning Goal: Establish appropriate post-hospitalization placement Outcome: Completed * Waqas Rodriguez RN - 09/25/2023 6:41 AM CDT Problem: Pain Goal: Exhibits reduction in pain to a level of acceptable comfort Outcome: Ongoing Problem: Communication Goal: Demonstrates/exhibits ability to communicate needs effectively Outcome: Met this shift * Sole Aguilera RN - 09/24/2023 10:48 PM CDT Problem: Falls/Injury-Risk of Goal: Absence of Falls/Injury Outcome: Met this shift Flowsheets (Taken 09/24/2023 2697) Environmental Safety Interventions: Standard Interventions in Place Mobility Safety Interventions: Standard Interventions in Place Elimination Safety Interventions: Standard Interventions in Place Medication: Standard Interventions in Place Problem: Pressure Injury - Risk of Goal: Absence of pressure injury Outcome: Met this shift Problem: Communication Goal: Demonstrates/exhibits ability to communicate needs effectively Outcome: Met this shift Problem: SAFETY Goal: *Communicates safety needs Outcome: Met this shift Goal: Absence of infection Outcome: Met this shift * Anjali Mclean RN - 09/24/2023 6:24 PM CDT Problem: Pain Goal: Exhibits reduction in pain to a level of acceptable comfort Outcome: Ongoing Problem: Falls/Injury-Risk of Goal: Absence of Falls/Injury 09/24/2023 1824 by Anjali Mclean RN Outcome: Met this shift Flowsheets (Taken 09/24/2023 1600) Environmental Safety Interventions: Standard Interventions in Place Mobility Safety Interventions: Standard Interventions in Place Elimination Safety Interventions: Standard Interventions in Place Medication: Standard Interventions in Place * Binta Degroot OT - 09/24/2023 4:22 PM CDT Occupational Therapy Met with pt in room, indep with all ADLs/IADLs, no OT indicated. * Della Moser - 09/24/2023 3:22 PM CDT Discharge Planning Initial Assessment Patients chart reviewed. Patient discussed in rounds. 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, initial encounter [T84.84XA, Z96.643] Mechanical breakdown of internal fixation device of vertebrae, initial encounter ([facility]) [T84.216A] Chronic pain disorder [G89.4] Admitted from: Home Prior: Living Arrangements: Spouse/significant other Jerry Caruso (SIGO) [phone] (M) Support Systems: Spouse/significant other Primary decision maker: Patient DME prior to admission: Rolling walker, Single point cane, Shower chair Anticipated Discharge Needs: outpatient PT, OT Care coordination initiated: Care discussed during rounds with nursing;Chart reviewed Barriers to discharge: none identified SW reviewed chart, attempted to meet pt at bedside. Pt was sleeping soundly. Per chart review pt lives with w/o in multi level home, is own decision maker. Pt is ambulatory, independent with ADLs, IADLS, uses rolling walker, cane, and shower chair at baseline. Pt admitted for Pain due to bilateral hip joint prostheses, initial encounter POD#1 BILATERAL HARDWARE REMOVAL L2- PELIVS WITH EXPLORATIONOF L3-4 FUSION AND REPLACEMENT OF RODS L3-4 (Spine, Lumbar). Pt is A&O, on RA, assist of 1. Pt is reporting 10/10 pain. Neurosurg, PT, OT following. Per PT anticipate pt will be safe to dc home with OP PT once pain is managed. Family to transport. Care management will continue to follow. NICOLAS Dewey, BUSINESS SERVICES INTERN 3:23 PM, 09/24/2023 P: [phone] F: [phone] * Anjali Mclean RN - 09/24/2023 10:32 AM CDT Problem: Falls/Injury-Risk of Goal: Absence of Falls/Injury Outcome: Met this shift Flowsheets (Taken 09/24/2023 0800) Environmental Safety Interventions: Standard Interventions in Place Mobility Safety Interventions: Standard Interventions in Place Elimination Safety Interventions: Standard Interventions in Place Medication: Standard Interventions in Place Problem: Pressure Injury - Risk of Goal: Absence of pressure injury Outcome: Met this shift * Soco Paez RN - 09/24/2023 12:11 AM CDT Problem: Falls/Injury-Risk of Goal: Absence of Falls/Injury Outcome: Met this shift Flowsheets (Taken 09/23/2023 1953) Environmental Safety Interventions: Standard Interventions in Place Mobility Safety Interventions: Standard Interventions in Place Elimination Safety Interventions: Standard Interventions in Place Medication: Standard Interventions in Place Problem: Pressure Injury - Risk of Goal: Absence of pressure injury Outcome: Met this shift * Santa Crandall RN - 09/23/2023 7:24 PM CDT Problem: Falls/Injury-Risk of Goal: Absence of Falls/Injury 09/23/20231922 by Santa Crandall RN Outcome: Met this shift 09/23/2023 1439 by Santa Crandall RN Outcome: Met this shift Problem: Pressure Injury - Risk of Goal: Absence of pressure injury 09/23/20231922 by Santa Crandall RN Outcome: Met this shift 09/23/2023 1439 by Santa Crandall RN Outcome: Met this shift * Santa Crandall RN - 09/23/2023 2:40 PM CDT Problem: Falls/Injury-Risk of Goal: Absence of Falls/Injury Outcome: Met this shift Problem: Pressure Injury - Risk of Goal: Absence of pressure injury Outcome: Met this shift * Seema Cottrell RN - 09/23/2023 11:09 AM CDT Report called to 550 RN. Vitals stable. Pt smiling, declining tylenol and oxy. When leader writer returnedto bed pt crying and stating she has moderated pain. Hitting the pillow with her arm. I just have awave of pain. Pt given iv pain meds. Agitated screaming out, putting pillow over head. Offered meds, pt doesn't answer. Pt then stated she was worried about her SO, what he wsa going to eat because she usually cooks for him. Property Damage Claims Adjustor spoke with Dr Albert will give tylenol and oxy and then send pt to the floor. In the past admission pt had to be given narcan. * Marlo Arriola RN - 09/23/2023 8:32 AM CDT 2 rods, 10 set screws, and 4 screws was explanted by Dr Sawyer and discarded. See JENNA Arriola Addendum: Total of 5 screws was explanted. * Enmanuel Sunshine RN - 09/22/2023 11:19 AM CDT Pt also requests her anti-depressants in the hospital stay * Enmanuel Sunshine RN - 09/22/2023 11:11 AM CDT Per pt she talked to Dr. Sawyer, would like Dilaudid 1-1.5mg Q2hrs while in the hospital. Goes to a pain clinic as well documented in this encounter OR Notes * OR Surgeon - Brock Sawyer MD - 09/23/2023 8:32 AM CDT Ramona Sanders 1960 [id number] DATE OF OPERATIVE PROCEDURE: 09/23/2023 PROCEDURE Removal of BILATERAL L2-Pelvis screws with replacement of L3-4 rods Pre-Procedure Diagnosis: Low back pain [M54.5] secondary to retained bilateral screws with broken rods Questionable L3-4 fusion Post-Procedure Diagnosis: Low back pain [M54.5] secondary to retained bilateral screws with broken rods Likely L3-4 fusion Surgeon(s): Brock Sawyer MD Asst: Baltazar Jarrell PAC Findings: As expected Estimated Blood Loss: 50 mL Specimens: None Drains: None Explants: Pedicle screws + Illiac Screws x 1 Complications: None Indications for procedure: Ramona Sanders is a very pleasant female status post anterior-posterior lumbar fusion with pelvic fixation. She Has a solid fusion with retained screws and viridiana fractures at L3-4. Worked up in theclinic and we opted to take out her screws and carefully explore the L3-4 fusion. risks and benefits were discussed with the patient. She wished to proceed. Details of procedure: After the induction of general endotracheal anesthesia patient was flipped to a prone position on the operative table with a Subhash frame. Eminences were padded and the patient was prepped and drapedin the usual fashion utilizing sterile technique. A timeout was called prior to making incision antibiotics. At this time a midline incision was made L2-S1. Cap Screw was removed. Rods were removed L2-Pelvis. Pedicle screws were removed with the exception of L3 and L4. The L3- 4 fusion was meticulously explored and appeared to be solid with no motion. Short rods were placed L3 and L4 as a precaution and cap screws were placed and lkocked. Wound was irrigated with antibiotic solution and a diluteBetadine wash. Final imaging showed only L3-L4 screws and viridiana in place. Fascial layer was closed with #1 Vicryl suture in an interrupted fashion. Subcutaneous tissues were closed with 2-0 Vicryl suture. Skin was closed with 3-0 Vicryl suture. Sterile dressings are applied and the patient was transferred to the recovery room bed in satisfactory condition. [facility] PAC provided assistance with preoperative positioning, prepping, and draping of the patient. The cement tester assistant provided vital operative assistance with retraction using instruments best providing the necessary exposure and visualization for the case, manipulation of tissues to achieve hemostasis, suction for visualization and assisted in wound closure. The cement tester assistant also helped place instrumentation under direct visualization of the surgeon. Postoperatively they assisted in the transfer of the patient off of the operative table and transition into the post anesthesia care unit with hester sition of care being made to the anesthesiologist. Brock Sawyer MD SPINE SURGEON/ [facility] documented in this encounter Plan of Treatment Scheduled Referrals Name Type Priority Associated Diagnoses Orde r Schedule Follow Up Follow Up Routine Ordered: 09/24 Follow Up Follow Up Routine Ordered: 09/24 documented as of this encounter Procedures Procedure Name Priority Date/Time Associated Diagnosis [...] C-ARM SPINE STAT 09/23/2023 9:14 AM CDT REMOVE SPINE FIX DEV,POST SGM* 09/23/2023 8:00 AM CDT Pain due to bilateral hip joint prostheses, initial encounter (HCC) Mechanical breakdown of internal fixation device of vertebrae, initial encounter (HCC) POCT GLU METER STAT 09/23/2023 6:21 AM CDT documented in this encounter Results * (ABNORMAL) POCT Glucose Meter (09/25/2023 7:53 AM CDT) Only the most recent of10 resultswithin the time period is included. [facility] Signature GLUCOSE WB METER 127(H) 60 - 100 mg/dL 09/25/2023 11:36 AM CDT [facility] Blood 09/25/2023 7:53 AM CDT 09/25/2023 11:36 AM CDT Brock Sawyer MD LAB POINT OF CARE TEST RESULTS [facility] [address] [id number] [phone] * XR C-ARM SPINE (09/23/2023 9:14 AM [...] Kai Villeda Brock Sawyer MD XRAY ORDERABLE documented in this encounter Visit Diagnoses Diagnosis Pain due to bilateral hip joint prostheses, initial encounter (HCC) Mechanical breakdown of internal fixation device of vertebrae, initial encounter ([facility]) documented in this encounter Admitting Diagnoses Diagnosis Chronic pain disorder Chronic pain syndrome documented in this encounter Administered Medications Inactive Administered Medications - up to 3 most recent administrations Medication Order MAR Action Action Date Dose Rate Site acetaminophen (TYLENOL) rectal suppository 650 mg 650 mg, Rectal, FOUR TIMES A DAY, First dose on Fri09/23/23 at 1200, Until Discontinued, Post-Op acetaminophen (TYLENOL) tablet 1,000 mg 1,000 mg, oral, FOUR TIMES A DAY, First dose on Fri09/23/23 at 1200, Until Discontinued, Post-Op Given 09/25/2023 8:04 AM CDT 1,000 mg Given 09/24/2023 10:09 PM CDT 1,000 mg Given 09/24/2023 5:26 PM CDT 1,000 mg buPROPion XL (WELLBUTRIN XL) extended release tablet 24 HR 150 mg 150 mg, oral, DAILY, First dose on Fri09/24/23 at 0800, Until Discontinued Given 09/25/2023 8:05 AM CDT 150 mg Given 09/24/2023 8:05 AM CDT 150 mg dextrose 50% in water IV solution 25-50 mL 25-50 mL, Intravenous, NEEDED, Starting on Fri09/23/23 at 1341, Until Fri09/25/23 at 1744, hypoglycemia dicyclomine (BentyL) tablet 20 mg 20 mg, oral, TWICE A DAY, First dose on Fri09/23/23 at 2000, Until Discontinued Given 09/25/2023 8:05 AM CDT 20 mg Given 09/24/2023 7:32 PM CDT 20 mg Given 09/24/2023 8:05 AM CDT 20 mg docusate sodium (COLACE) capsule 100 mg 100 mg, oral, TWICE A DAY, First dose on Fri09/23/23 at 1145, Until Discontinued, Post-Op Given 09/25/2023 8:06 AM CDT 100 mg Given 09/24/2023 7:32 PM CDT 100 mg Given 09/24/2023 8:05 AM CDT 100 mg DULoxetine (CYMBALTA) delayed release capsule 120 mg 120 mg, oral, DAILY, First dose on Fri09/24/23 at 0800, Until Discontinued Given 09/25/2023 8:05 AM CDT 120 mg Given 09/24/2023 8:04 AM CDT 120 mg glucagon, human recombinant (Glucagen) injection (conc: 1 mg/mL) 1 mg 1 mg, IntraMUSCULAR, EVERY 15 MINUTES NEEDED, 2 doses, Starting on Fri09/23/23 at 1341, Until Fri09/25/23 at 1744, for hypoglycemia HYDROmorphone (DILAUDID) syringe 0.5-1 mg 0.5-1 mg, Intravenous, EVERY 2 HOURS NEEDED, Starting on Fri09/23/23 at 1149, Until Fri09/25/23 at 1744, Post-Op, Pain, when NOT taking PO Given 09/25/2023 8:03 AM CDT 1 mg Given 09/25/2023 2:55 AM CDT 1 mg Given 09/25/2023 12:26 AM CDT 1 mg hydrOXYzine pamoate (Vistaril) capsule 50 mg 50 mg, oral, EVERY 6 HOURS NEEDED, Starting on Fri09/23/23 at 1155, Until Fri09/25/23 at 1744, Adjuvant to pain management insulin lispro (HumaLOG; Admelog) 100 unit/mL injection - pen 0-3 Units 0-3 Units, Subcutaneous, AT BEDTIME, First dose on Fri09/23/23 at 2200, Until Discontinued insulin lispro (HumaLOG; Admelog) 100 unit/mL injection - pen 0-5 Units 0-5 Units, Subcutaneous, THREE TIMES A DAY WITH MEALS, First dose on Fri09/23/23 at 1345, Until Discontinued Given 09/24/2023 5:30 PM CDT 0 Units Abdomen Given 09/24/2023 12:30 PM CDT 2 Units A bdomen lamoTRIgine (LAMICTAL) tablet 200 mg 200 mg, oral, TWICE A DAY, First dose on Fri09/23/23 at 2000, Until Discontinued Given 09/25/2023 8:05 AM CDT 200 mg Given 09/24/2023 7:32 PM CDT 200 mg Given 09/24/2023 8:05 AM CDT 200 mg methocarbamoL (ROBAXIN) tablet 500-1,000 mg 500-1,000 mg, oral, FOUR TIMES A DAY, First dose on Fri09/23/23 at 1200, Until Discontinued Given 09/25/2023 8:04 AM CDT 1,000 mg Given 09/24/2023 10:09 PM CDT 1,000 mg Given 09/24/2023 5:26 PM CDT 1,000 mg omeprazole (PriLOSEC) delayed release capsule 40 mg 40 mg, oral, DAILY, First dose on Fri09/24/23 at 0800, Until Discontinued Given 09/25/2023 8:05 AM CDT 40 mg Given 09/24/2023 8:05 AM CDT 40 mg ondansetron (Zofran) disintegrating tablet 4 mg 4 mg, oral, EVERY 8 HOURS NEEDED, Starting on Fri09/23/23 at 1133, Until Fri09/25/23 at 1744, Post-Op, nausea & vomiting ondansetron (Zofran) injection 4 mg 4 mg, Intravenous, EVERY 8 HOURS NEEDED, Starting on Fri09/23/23 at 1133, Until 09/24/24 at 1744, Post-Op, nausea & vomiting oxyCODONE (immediate release) (ROXICODONE) tablet 15-20 mg 15-20 mg, oral, EVERY 4 HOURS NEEDED, Starting on Fri09/23/23 at 1133, Until Fri09/25/23 at 1744, pain Given 09/24/2023 9:16 AM CDT 20 mg oxyCODONE (oxyCONTIN) extended release tablet 12 HR 20 mg 20 mg, oral, EVERY 8 HOURS, First dose on Fri09/23/23 at 1400, Until Discontinued Given 09/25/2023 6:23 AM CDT 20 mg Given 09/24/2023 10:09 PM CDT 20 mg Given 09/24/2023 1:11 PM CDT 20 mg pramipexole (MIRAPEX) tablet 0.5 mg 0.5 mg, oral, EVERY EVENING, First dose on Fri09/23/23 at 2000, Until Discontinued Given 09/24/2023 7:32 PM CDT 0.5 mg Given 09/23/2023 8:00 PM CDT 0.5 mg simvastatin (ZOCOR) tablet 20 mg 20 mg, oral, AT BEDTIME, First dose on Fri09/23/23 at 2200, Until Discontinued Given 09/24/2023 10:09 PM CDT 20 mg Given 09/23/2023 9:17 PM CDT 20 mg thrombin 5,000 unit topical solution 5,000 Units topical, INTRA-PROCEDURE NEEDED, Starting on Fri09/23/23 at 0559, Until Fri09/23/23 at 0948, Intra-Op, per procedure Given 09/23/2023 9:09 AM CDT 5,000 Units Procedural vancomycin (VANCOCIN) powder (OR) INTRA-PROCEDURE NEEDED, Starting on Fri09/23/23 at 0909, Until Fri09/23/23 at 0948, Intra-Op Given 09/23/2023 9:09 AM CDT 1 g Pro cedural documented in this encounter Active and Recently Administered Medications Times are shown in CDT. Scheduled Medication Order 09/23/2023 09/24/2023 09/25/2023 acetaminophen (TYLENOL) rectal suppository 650 mg(Linked Group 1) 650 mg, Rectal, FOUR TIMES A DAY, First dose on Fri09/23/23 at 1200, Until Discontinued, Post-Op 1324 (Not Given - Provider: Santa Crandall RN - Reason: Clinically appropriate (comment) - Comment: given orally)1801 (See Alternative - Provider: Michelle Schwartz RN)2200 (See Alternative - Provider: Soco Paez RN) 0805 (See Alternative - Provider: Anjali Mclean RN)1228 (See Alternative - Provider: Anjali Mclean RN)1726 (See Alternative - Provider: Anjali Mclean RN)220 (See Alternative - Provider: Sole Aguilera, JENNA) 0804 (See Alternative - Provider: Rika Lake, JENNA) acetaminophen (TYLENOL) tablet 1,000 mg (COMPLETED) 1,000 mg, oral, ONCE, 1 dose, On Fri09/23/23 at 0600, Pre-Op 0637 (Given - Provider: Savita Caldwell RN) acetaminophen (TYLENOL) tablet 1,000 mg(Linked Group 1) 1,000 mg, oral, FOUR TIMES A DAY, First dose on Fri09/23/23 at 1200, Until Discontinued, Post-Op 1324 (See Alternative - Provider: Santa Crandall RN)1801 (Given - Provider: Michelle Schwartz RN)2200 (Declined - Provider: Soco Paez RN) 0805 (Given - Provider: Anjali Mclean RN)1228 (Given - Provider: Anjali Mclean RN)1726 (Given - Provider: Anjali Mclean RN)220 (Given - Provider: Sole Aguilera, JENNA) 0804 (Given - Provider: Rika Lake, JENNA) acetaminophen (TYLENOL) tablet 500-1,000 mg (COMPLETED) 500-1,000 mg, oral, ONCE, 1 dose, On Fri09/23/23 at 0945, Phase 1/2 1116 (Given - Provider: Seema Cottrell RN) buPROPion XL (WELLBUTRIN XL) extended release tablet 24 HR 150 mg 150 mg, oral, DAILY, First dose on Fri09/24/23 at 0800, Until Discontinued 0805 (Given - Provider: Anjali Mclean RN) 08 (Given - Provider: Rika Lake, RN) ceFAZolin (Ancef) 1 g in sodium chloride 0.9 % 100 mL IV piggyback (COMPLETED) 1 g, Intravenous, EVERY 8 HOURS (NS), 2 doses, First dose (after last reorder) on Fri09/23/23 at 1600, Last dose on Fri09/24/23 at 0000, Post-Op, Administer over 30 Minutes 1603 (New Bag - Provider: Michelle Schwartz RN)2354 (New Bag - Provider: Soco Peaz RN) ceFAZolin (Ancef) 2 g in sterile water IV syringe (COMPLETED) Intravenous, ONCE ON INDUCTION, 1 dose, Starting on Fri09/23/23 at 0559, Until Fri09/23/23 at 0822, Intra-Op, Administer over 3 Minutes 0822 (New Bag - Provider: Nay Zamudio APRN, ROUGH ROUNDER MACHINE) dicyclomine (BentyL) tablet 20 mg 20 mg, oral, TWICE A DAY, First dose on Fri09/23/23 at 2000, Until Discontinued 1999 (Given - Provider: Soco Paez RN) 804 (Given - Provider: Anjali Mclean RN)1931 (Given - Provider: Sole Aguilera, JENNA) 804 (Given - Provider: Rika Lake, JENNA) docusate sodium (COLACE) capsule 100 mg 100 mg, oral, TWICE A DAY, First dose on Fri09/23/23 at 1145, Until Discontinued, Post-Op 1324 (Given - Provider: Santa Crandall RN)1999 (Given - Provider: Soco Paez RN) 804 (Given - Provider: Anjali Mclean, JENNA)1931 (Given - Provider: Sole Aguilera, JENNA) 805 (Given - Provider: Rika Lake, JENNA) DULoxetine (CYMBALTA) delayed release capsule 120 mg 120 mg, oral, DAILY, First dose on Fri09/24/23 at 0800, Until Discontinued 803 (Given - Provider: Anjali cMlean RN) 08 (Given - Provider: Rika Lake, JENNA) gabapentin (NEURONTIN) capsule 600 mg (COMPLETED) 600 mg, oral, ONCE, 1 dose, On Fri09/23/23 at 0600, Pre-Op 0637 (Given - Provider: Savita Caldwell RN) insulin lispro (HumaLOG; Admelog) 100 unit/mL injection - pen 0-3 Units(Linked Group 2) 0-3 Units, Subcutaneous, AT BEDTIME, First dose on Fri09/23/23 at 2200, Until Discontinued 220 (Not Given - Provider: Soco Paez RN - Reason: Clinically appropriate (comment) - Comment: BG 146) 2200 (Not Given - Provider: Sole Aguilera RN - Reason: Clinically appropriate (comment) - Comment: below parameters) insulin lispro (HumaLOG; Admelog) 100 unit/mL injection - pen 0-5 Units(Linked Group 2) 0-5 Units, Subcutaneous, THREE TIMES A DAY WITH MEALS, First dose on Fri09/23/23 at 1345, Until Discontinued 1345 (Not Given - Provider: Sarah Morgan RN - Reason: Clinically appropriate (comment))1805 (Not Given - Provider: Michelle Schwartz RN - Reason: Clinically appropriate (comment) - Comment: BG 137) 0800 (Not Given - Provider: Anjali Mclean RN - Reason: Clinically appropriate (comment) - Comment: not within order parameters)1230 (Given - Provider: Anjali Mclean RN)1730 (Given - Provider: Anjali Mclean RN) 0813 (Not Given - Provider: Rika Lake RN - Reason: Clinically appropriate (comment) - Comment: 127) lamoTRIgine (LAMICTAL) tablet 200 mg 200 mg, oral, TWICE A DAY, First dose on Fri09/23/23 at 2000, Until Discontinued 1999 (Given - Provider: Soco Paez RN) 0805 (Given - Provider: Anjali Mclean RN)193 (Given - Provider: Sole Aguilera RN) 0805 (Given - Provider: Rika Lake RN) methocarbamoL (ROBAXIN) tablet 500-1,000 mg 500-1,000 mg, oral, FOUR TIMES A DAY, First dose on Fri09/23/23 at 1200, Until Discontinued 1200 (Declined - Provider: Sarah Morgan RN)180 (Given - Provider: Michelle Schwartz RN - Comment: Pt states that her allergy to robaxin was many years ag, and she would like to take the robaxin. Pharmacist and MD Updated.)2115 (Given - Provider: Soco Paez RN - Comment: pt states that her allergy to robaxin was long ago. per pt she tolerates med without reaction.) 0805 (Given - Provider: Anjali Mclean RN)1228 (Given - Provider: Anjali Mclean RN)1726 (Given - Provider: Anjali Mclean RN)220 (Given - Provider: Sole Aguilera RN) 0804 (Given - Provider: Rika Lake RN) omeprazole (PriLOSEC) delayed release capsule 40 mg 40 mg, oral, DAILY, First dose on Fri09/24/23 at 0800, Until Discontinued 08 (Given - Provider: Anjali Mclean RN) 08 (Given - Provider: Rika Lake RN) oxyCODONE (oxyCONTIN) extended release tablet 12 HR 10 mg (COMPLETED) 10 mg, oral, ONCE, 1 dose, On Fri09/23/23 at 0600, Pre-Op 0638 (Given - Provider: Savita Caldwell RN) oxyCODONE (oxyCONTIN) extended release tablet 12 HR 20 mg 20 mg, oral, EVERY 8 HOURS, First dose on Fri09/23/23 at 1400, Until Discontinued 1324 (Given - Provider: Santa Crandall RN)2200 (Declined - Provider: Soco Paez RN) 0603 (Given - Provider: Soco Paez RN)131 (Given - Provider: Anjali Mclean RN)220 (Given - Provider: Sole Aguilera RN) 0623 (Given - Provider: Waqas Rodriguez RN) pramipexole (MIRAPEX) tablet 0.5 mg 0.5 mg, oral, EVERY EVENING, First dose on Fri09/23/23 at 2000, Until Discontinued 1999 (Given - Provider: Soco Paez RN) 193 (Given - Provider: Sole Aguilera RN) simvastatin (ZOCOR) tablet 20 mg 20 mg, oral, AT BEDTIME, First dose on Fri09/23/23 at 2200, Until Discontinued 2116 (Given - Provider: Soco Paez RN) 2208 (Given - Provider: Sole Aguilera RN) tranexamic acid (CYKLOKAPRON) 1,000 mg in sodium chloride 0.9 % 100 mL IV BOLUS (COMPLETED) 1,000 mg, Intravenous, ONCE, 1 dose, On Fri09/23/23 at 0600, Pre-Op, Administer over 10 Minutes 0814 (New Bag - Provider: Nay Zamudio, PLASTIC JOINT MAKER, [facility]) PRN Medication Order 09/23/2023 09/24/2023 09/25/2023 saline FLUSH syringe 10 mL (CANCELED) 10 mL, Intravenous, NEEDED, Starting on Fri09/23/23 at 0559, Until Fri09/23/23 at 0948, Pre-Op, Line Care 0642 (Given - Provider: Savita Caldwell RN) alum-mag hydroxide-simethicone (MAALOX PLUS) suspension 15-30 mL 15-30 mL, oral, EVERY 6 HOURS NEEDED, Starting on Fri09/23/23 at 1133, Until Usha 09/25/23 at 1744, Post-Op, indigestion dextrose 50% in water IV solution 25-50 mL 25-50 mL, Intravenous, NEEDED, Starting on Fri09/23/23 at 1133, Until Usha 09/25/23 at 1744, Post-Op, hypoglycemia, for fingerstick blood glucose less than 70 mg/dL dextrose 50% in water IV solution 25-50 mL 25-50 mL, Intravenous, NEEDED, Starting on Fri09/23/23 at 1341, Until Usha 09/25/23 at 1744, hypoglycemia fentaNYL (SUBLIMAZE) injection 25-50 mcg (CANCELED) 25-50 mcg, Intravenous, EVERY 5 MINUTES NEEDED, 8 doses, Starting on Fri09/23/23 at 0941, Until Fri09/23/23 at 1131, Phase 1/2, ACUTE SURGICAL PAIN 1100 (Given - Provider: Seema Cottrell RN)1105 (Given - Provider: Seema Cottrell RN)1115 (Given - Provider: Seema Cottrell RN) glucagon, human recombinant (Glucagen) injection (conc: 1 mg/mL) 1 mg 1 mg, IntraMUSCULAR, EVERY 15 MINUTES NEEDED, 2 doses, Starting on Fri09/23/23 at 1341, Until Usha 09/25/23 at 1744, for hypoglycemia HYDROmorphone (DILAUDID) syringe 0.2-0.4 mg (CANCELED) 0.2-0.4 mg, Intravenous, EVERY 5 MINUTES NEEDED, 5 doses, Starting on Fri09/23/23 at 0941, Until Fri09/23/23 at 1131, Phase 1/2, POST-ACUTE PAIN MANAGEMENT 1106 (Given - Provider: Seema Cottrell RN)1116 (Given - Provider: Seema Cottrell RN) HYDROmorphone (DILAUDID) syringe 0.5-1 mg 0.5-1 mg, Intravenous, EVERY 2 HOURS NEEDED, Starting on Fri09/23/23 at 1149, Until Usha 09/25/23 at 1744, Post-Op, Pain, when NOT taking PO 1204 (Given - Provider: Santa Crandall RN)1431 (Given - Provider: Santa Crandall RN)1453 (Given - Provider: Santa Crandall RN)1800 (Given - Provider: Michelle Schwartz RN)2117 (Given - Provider: Soco Paez RN)2346 (Given - Provider: Soco Paez RN) 0453 (Given - Provider: Soco Paez RN)0805 (Given - Provider: Anjali Mclean RN)1034 (Given - Provider: Anjali Mclean RN)1309 (Given - Provider: Anjali Mclean RN)1519 (Given - Provider: Anjali Mclean RN)1726 (Given - Provider: Anjali Mclean RN)1931 (Given - Provider: Sole Aguilera, JENNA)2209 (Given - Provider: Sole Aguilera RN) 0026 (Given - Provider: Waqas Rodriguez RN)0255 (Given - Provider: Waqas Rodriguez RN)0803 (Given - Provider: Rika Lake RN) hydrOXYzine pamoate (Vistaril) capsule 50 mg 50 mg, oral, EVERY 6 HOURS NEEDED, Starting on Fri09/23/23 at 1155, Until Usha 09/25/23 at 1744, Adjuvant to pain management naloxone (NARCAN) injection 0.1 mg 0.1 mg, Intravenous, EVERY 1 MINUTE PRN, Starting on Fri09/23/23 at 1133, Until Usha 09/25/23 at 1744, Post-Op, Opiate Reversal ondansetron (Zofran) disintegrating tablet 4 mg(Linked Group 3) 4 mg, oral, EVERY 8 HOURS NEEDED, Starting on Fri09/23/23 at 1133, Until Fri09/25/23 at 1744, Post-Op, nausea & vomiting ondansetron (Zofran) injection 4 mg(Linked Group 3) 4 mg, Intravenous, EVERY 8 HOURS NEEDED, Starting on Fri09/23/23 at 1133, Until Usha 09/25/23 at 1744, Post-Op, nausea & vomiting oxyCODONE (immediate release) (ROXICODONE) tablet 15-20 mg 15-20 mg, oral, EVERY 4 HOURS NEEDED, Starting on Fri09/23/23 at 1133, Until Usha 09/25/23 at 1744, pain 0916 (Given - Provider: Anjali Mclean RN) oxyCODONE (immediate release) (ROXICODONE) tablet 5 mg (CANCELED)(Linked Group 4) 5 mg, oral, NEEDED, MAY REPEAT X1, 2 doses, Starting on Fri09/23/23 at 0941, Until Fri09/23/23 at 1131, Phase 1/2, Pain, when taking PO, pain while in recovery area 1117 (Given - Provider: Seema Cottrell RN) thrombin 5,000 unit topical solution 5,000 Units (CANCELED) topical, INTRA-PROCEDURE NEEDED, Starting on Fri09/23/23 at 0559, Until Fri09/23/23 at 0948, Intra-Op, per procedure 0909 (Given - Provider: Brock Sawyer MD) traZODone (DESYREL) tablet 100 mg 100 mg, oral, AT BEDTIME NEEDED, Starting on Fri09/23/23 at 1337, Until Fri09/25/23 at 1744, sleep vancomycin (VANCOCIN) powder (OR) (CANCELED) INTRA-PROCEDURE NEEDED, Starting on Fri09/23/23 at 0909, Until Fri09/23/23 at 0948, Intra-Op 0909 (Given - Provider: Brock Sawyer MD) Linked Groups Order Group 1: acetaminophen (TYLENOL) tablet 1,000 mgJump to med 1,000 mg, oral, FOUR TIMES A DAY, First dose on Fri09/23/23 at 1200, Until Discontinued, Post-Op Or acetaminophen (TYLENOL) rectal suppository 650 mgJump to med 650 mg, Rectal, FOUR TIMES A DAY, First dose on Fri09/23/23 at 1200, Until Discontinued, Post-Op Group 2: POCT Glucose Meter (CANCELED) Routine, 4 TIMES DAILY - BEFORE MEALS & BEDTIME, First occurrence on Fri09/23/23 at 1700, Until Specified, Ensure Accucheck completed 4 times daily, even if patient misses meal(s). And POCT Glucose Meter (CANCELED) Routine, PRN, Starting on Fri09/23/23 at 1342, Until Specified, Two Hours After Coverage of Blood Glucose 350 mg / dL or Greater, 30 Minutes After Blood Glucose Less Than 80 mg / dL; Patient is Not Symptomatic and More Than 30 Minutes Until Next Meal and For Symptoms of Hypoglycemia. And insulin lispro (HumaLOG; Admelog) 100 unit/mL injection - pen 0-5 UnitsJump to med 0-5 Units, Subcutaneous, THREE TIMES A DAY WITH MEALS, First dose on Fri09/23/23 at 1345, Until Discontinued And insulin lispro (HumaLOG; Admelog) 100 unit/mL injection - pen 0-3 UnitsJump to med 0-3 Units, Subcutaneous, AT BEDTIME, First dose on Fri09/23/23 at 2200, Until Discontinued Group 3: ondansetron (Zofran) injection 4 mgJump to med 4 mg, Intravenous, EVERY 8 HOURS NEEDED, Starting on Fri09/23/23 at 1133, Until Usha 09/25/23 at 1744, Post-Op, nausea & vomiting Or ondansetron (Zofran) disintegrating tablet 4 mgJump to med 4 mg, oral, EVERY 8 HOURS NEEDED, Starting on Fri09/23/23 at 1133, Until Usha 09/25/23 at 1744, Post-Op, nausea & vomiting Group 4: oxyCODONE (immediate release) (ROXICODONE) tablet 5 mg (CANCELED)Jump to med 5 mg, oral, NEEDED, MAY REPEAT X1, 2 doses, Starting on Fri09/23/23 at 0941, Until Fri09/23/23 at 1131, Phase 1/2, Pain, when taking PO, pain while in recovery area Or oxyCODONE-acetaminophen (PERCOCET) 5-325 mg tablet 1 tablet (CANCELED) 1 tablet, oral, NEEDED, MAY REPEAT X1, 2 doses, Starting on Fri09/23/23 at 0941, Until Fri09/23/23 at 1131, Phase 1/2, Pain, when taking PO, pain while in recovery area Or HYDROcodone-acetaminophen (NORCO) 5-325 mg tablet 1 tablet (CANCELED) 1 tablet, oral, NEEDED, MAY REPEAT X1, 2 doses, Starting on Fri09/23/23 at 0941, Until Fri09/23/23 at 1131, Phase 1/2, Pain, when taking PO, pain while in recovery area documented in this encounter Care Teams Adjunct Mathematics Instructor Relationship Specialty Start Date End Date [facility]- [address] [place] [address] PCP - Primary Care Clinic 09/18/22 [place] [address] [place] [address] PCP - General 05/20/23 documented as of this encounter
--- OUTSIDE RECORDS SUMMARY | 2023-11-30 17:36 | XMS_ITS | Continuity of Care Document ---
Author Organization [facility] Address [address] [place] [address] Phone Care Team Providers Care Nurse Orthopedic Name Role Phone Greg Hicks Unavailable Unavailab le Allergies, Adverse Reactions, Alerts Substance Reaction Status Criticality No Known Allergies Active No Inform ation Medications Medication Instructions Dosage Effective Dates (start - stop) Status Comments TRAZODONE HCL (unknown strength) Not Available - Active TOPIRAMATE (unknown strength) Not Available - Active SIMVASTATIN (unknown strength) Not Available - Active SENNOSIDES-DOCUSATE SODIUM (unknown strength) Not Available - Active PRAZOSIN HCL (unknown strength) Not Available - Active PRAMIPEXOLE DIHYDROCHLORIDE (unknown strength) Not Available - Active OXYCODONE HCL (unknown strength) Not Available - Active OMEPRAZOLE (unknown strength) Not Available - Active LIDOCAINE (unknown strength) Not Available - Active LAMOTRIGINE (unknown strength) Not Available - Active FUROSEMIDE (unknown strength) Not Available - Active ESCITALOPRAM OXALATE (unknown strength) Not Available - Active DULOXETINE HCL (unknown strength) Not Available - Active DICYCLOMINE HCL (unknown strength) Not Available - Active BUPROPION HCL (unknown strength) Not Available - Active METFORMIN HCL (unknown strength) Not Available - Active TIZANIDINE HCL (unknown strength) Not Available - Active Procedures Procedure Date Postop Followup Visit Advance Directives Directive Yes / No Effective Date File Name No Information Encounters Encounter Description Practice Location Reason(s) For Visit Diagnoses Date Provider Providers Copied on Encounter [facility] , [address], [place], [place], [id number], tel:[phone] [facility] Encounter for other specified surgical aftercare Jah Garza. [facility], [address], [address], [place], [address], . tel:[phone] Referring Provider: Greg Tai, [facility] [address], [address], [place], [address]. tel:[phone] Family History Family Member Type Diagnosis Age At Onset Brother Problem (finding) Depression Payers Payer name Insurance type Covered libertarian ID Authorviolet chao(s) [employer] Medicare [facility] CI [id number] Social History Type Description Quantity Date Captured Comments Alcohol Use Details No Caffeine Use Details Unknown Tobacco Use Status No Information Smoking Status Former smoker Smoking Tobacco Use Details Cigarette: Age Started: 30, Age Stopped: 62, Years Used 34 Cigarette: No Details Available Sex Female Vital Signs Date / Time: Height Weight BMI Pulse Rate Blood Pressure Temperature Respiratory Rate Body Surface Area Head Circumference Head Circ. Percentile Wt./Felice. Percentile BMI percentile Pulse Ox Inhaled Ox 10:44 AM 67.50 in 73.482 kg (162.00 lbs) 25.0 0 kg/m eter (2) Chief Complaint And Reason For Visit No Information Reason For Referral Reason For Referral No Information History Of Present Illness Encounter Date Complaint History Of Prese nt Illness No Information Functional Status Date Functional Assessmen t No Information Instructions Date Instruction Additional Infor mation No Information Assessments Type Assessment Date assessment Encounter for other specified smith rgical aftercare Patient Care Teams Name Effective Dates (start - stop) Status Members No Information
--- OUTSIDE RECORDS SUMMARY | 2023-11-30 17:36 | XMS_ITS | Continuity of Care Document ---
Author Organization [facility] Address [address] [place] [address] Care Team Providers Care Closet Builder Name Role Phone [facility] Unavailable Unav ailable Procedures Procedure Date Dest by neurolytic agt, genicular nv br w\guid Dest by neurolytic agt, genicular nv br w\guid Inj anes agt/steroid; gen ne br,w/guidan ce Inj anes agt/steroid; gen ne br,w/guidan ce Facet Jt Inj Lumbar RIGHT MAJOR JOINT OR BURSA INJ WITH ULTRASOUND MAJOR JOINT OR BURSA INJ WITH ULTRASOUND MAJOR JOINT OR BURSA INJ WITH ULTRASOUND MAJOR JOINT OR BURSA INJ WITH ULTRASOUND Advance Directives Directive Yes / No Effective Date File Name No Information Encounters Encounter Description Practice Location Reason(s) For Visit Diagnoses Date Provider Providers Copied on Encounter [facility], [address] [place], [place], [id number], [facility] No Information [facility]. [address] [place], [place], [id number], . tel:[phone] Referring Provider: Divina Deras, [address] [place], [address]. tel:[phone] [facility], [address] [place], [place], [id number], [facility] No Information [facility]. [address] [place] [address] [place], [id number], [place]. tel:[phone] Referring Provider: Divian Deras, [address] [place] [address], [address]. tel:[phone] [facility], [address] [place] [address], [id number], [facility] [place] No Information [facility] [place]. [address] [place] [address] Devendra [place], [place], [id number], [place]. tel:[phone] Referring Provider: Divina Deras, [address] [place] [address], [address]. tel:[phone] [facility], [address] [place] [address], [id number], [facility] No Information [facility]. [address] [place] [address], [id number], [place]. tel:[phone] Referring Provider: Divina Deras, [address] [place] [address], [address]. tel:[phone] [facility], [address] [place] [address], [id number], [facility] No Information [facility]. [address] [place] [address], [id number], . tel:[phone] Referring Provider: Divina Deras, [address] [place] [address], [address]. tel:[phone] Family History Family Member Type Diagnosis Age At Onset No Information Payers Payer name Insurance type Covered alliance [...]
--- OUTSIDE RECORDS SUMMARY | 2023-11-30 17:36 | XMS_ITS | Continuity of Care Document ---
Author Organization [facility] Address [address] [address] [place] [address] Phone Care Team Providers Care Recruitment Specialist Name Role Phone Sanjay Evangelista MD Unavailable [...] 1 capsule by oral route every day 30 MG - Active MIRAPEX ER (unknown strength) take [...] - Active Procedures Procedure Date Offic/outpt E&m [facility] Advance Directives Directive Yes / No Effective Date File Name No Information Encounters Encounter Description Practice Location Reason(s) For Visit Diagnoses Date Provider Providers Copied on Encounter [facility] [place], [address] [address], [place], [id number], [place] tel:[phone] [facility] No Information 4 Jonah Grace. [address], [id number], [place]. tel:[phone] Offic/outpt E&m [facility] [place], [address] [address], [place], [id number], [place] tel:[phone] [facility] Symptoms or Concerns (chief complaint) Abdominal distensionColon cancer screening [address]. [address] [facility] [address], [place], [id number], [place]. tel:[phone] Referring Provider: Blaire MONZON N, [address], [place], [address]. tel:[phone] [facility] [place], [address] [address], [place], [place], [id number], tel:[phone] [facility] No Information 4 Jonah Grace. [address] [facility] [address], [place], [id number], [place]. tel:[phone] Family History Family Member Type Diagnosis Age [...] movement a day type 4 on the [place] stool chart. She does take Linzess 145 [...]
--- OUTSIDE RECORDS SUMMARY | 2023-11-30 17:36 | XMS_ITS | Encounter Summary ---
Author Organization [facility] Address [address] [place] [address] Care Team Providers Care Marriage Counselor Name Role Phone [facility]- Unava ilable Hayes Mcelroy MD Primary Care Provider [phone] Encounter Details Date Type Department Care Team (Latest Contact Info) Description 09/04/2023 Travel Social History Tobacco Use Types Packs/Day Years Used Date Smoking Tobacco: Former Cigarettes Smokeless Tobacco: Never Sex and Gender Information Value Date Recorded Sex Assigned at Not on file Gender Identity Not on file Sexual Orientation Not on file documented as of this encounter Plan of Treatment Not on file documented as of this encounter Visit Diagnoses Not on filedocumented in this encounter Care Teams Marriage Counselor Relationship Specialty Start Date End Date [facility]- [address] [place] [address] PCP - Primary Care Clinic 09/18/22 [place] [address] [place] [address] PCP - General 05/20/23 documented as of this encounter
--- OUTSIDE RECORDS SUMMARY | 2023-11-30 17:36 | XMS_ITS | Clinical Summary ---
Author Organization [facility] Address [address] [place] [address] Care Team Providers Care Hair Blender Name Role Phone Tommy Mcelroy MD Primary Care Provider [phone] Allergies Active Allergy Reactions Criticality Noted Date Comments Baclofen 12/23/2012 Diphenhydramine-Zinc Acetate Other (See Comments) 04/24/2011 Makes restless leg symptoms worse. Compazine Anaphylaxis 10/23/2004 Cyclobenzaprine Other (See Comments) 04/24/2011 Makes restless leg symptoms worse. Cyclobenzaprine Hcl 12/23/2012 Methocarbamol Other (See Comments) 04/24/2011 Makes restless leg symptoms worse. Mirtazapine 12/23/2012 Qvfckxthjypm-Eagbwtt-Cacx ine 12/23/2012 Medications Medication Sig Dispensed Refills [...] Comments Blood Pressure 111/70 01/08/2023 1:50 PM RESOURCE ENGINEER Pulse 73 01/08/2023 1:50 PM RESOURCE ENGINEER Temperature 36.7 ??C (98 ??F) 01/08/2023 1:50 PM RESOURCE ENGINEER Respiratory Rate 18 01/08/2023 1:50 PM RESOURCE ENGINEER Oxygen Saturation 96% 01/08/2023 1:50 PM RESOURCE ENGINEER Inhaled Oxygen Concentration - - Weight 77.1 [...] 1980 LIPID 2002 LUNG CANCER SCREENING 2012 BMP 11/28/2015 11/27/2014, 12/11, 05/03/2011, Additional history exists GLUCOSE 11/27/2017 11/27/2014, 02/11, 12/23/2012, Additional history exists PHQ-2 (once per calendar year) 2023 COVID-19 Vaccine ( season) 2023 07/30/2021, 12/02/2020, 06/02/2020, Additional history exists INFLUENZA VACCINE (#1) 2023 , 11/17/2020, 11/26/2019, Additional history exists PAP 11/21/2025 11/21/2022, 11/21/2022 DTAP/TDAP/TD IMMUNIZATION (3 - Td or Tdap) 11/25/2029 11/26/2019, 03/20/2010, 05/15/2000 RSV VACCINE (1 - 1-dose 75+ series) 2037 Pneumococcal Vaccine: Pediatrics (0 to 5 Years) [...] this topic Medical Devices Implanted Type Area Drier Take Off Tender Device Identifier Shelf Expiration Date Model / Serial / Lot Graft Bone Foam Pack Vitoss 10ml Bio Active Implanted:Qty: 1 on 05/02/2011 at [facility] N/A: Spine Lumbar 10/04/2012 / / [id number] Iom Supplies Implanted:Qty: 1 on 05/02/2011 at [facility] Cell Saver Standby Implanted:Qty: 1 on 05/02/2011 at [facility] Graft Bone Crush Canc 15ml [id number] Implanted:Qty: 1 on 05/02/2011 at [facility] N/A: Spine Lumbar [id number] / [id number] / 14x12 Align Implanted:Qty: 1 on 05/02/2011 at [facility] N/A: Spine Lumbar [id number] / / [id number] 16x12 Align Implanted:Qty: 1 on 05/02/2011 at [facility] N/A: Spine Lumbar [id number] / / [id number] 25mm Plate Implanted:Qty: 1 on 05/02/2011 at [facility] N/A: Spine Lumbar [id number] / / [id number] 25mm Screw Implanted:Qty: 4 on 05/02/2011 at [facility] N/A: Spine Lumbar [id number] / / [id number] Imp Washer Syn [place] 13.5x5.5mm Implanted:Qty: 2 on 05/02/2011 at [facility] N/A: Spine Lumbar 219.951 / / 0106 [id number] Imp Scr Syn Canc 6.3v520xh Ft Ti Implanted:Qty: 2 on 05/02/2011 at [facility] N/A: Spine Lumbar 418.025 / / 0106 [id number] Spf-Plus 60/M Implantable Spinal Fusion Stimulator Implanted:Qty: 1 on 03/02/2014 by Brock Sawyer MD at [facility] N/A: Back [employer] 07/03/2015 10-1398M / [id number] / Graft Bone Foam Pack Vitoss 10ml Bio Active Implanted:Qty: 1 on 03/02/2014 by Brock Sawyer MD at [facility] N/A: Back ORTHOVITA 09/10/2015 [id number] / / [id number] Imp Scr Medt 5.5/6.0mm Solera 6.5x45mm Ma [id number] Implanted:Qty: 4 on 03/02/2014 by Brock Sawyer MD at [facility] N/A: Back [employer] [id number] / / [id number] 2014 Imp Scr Medt 5.5/6.0mm Solera 8.5x70mm Ma [id number] Implanted:Qty: 2 on 03/02/2014 by Brock Sawyer MD at [facility] N/A: Back [employer] [id number] / / [id number] 01 MAR 2014 Imp Scr Set Medt Solera Break Off 5.5mm Ti [id number] Implanted:Qty: 6 on 03/02/2014 by Brock Sawyer MD at [facility] N/A: Back [employer] [id number] / / [id number] 01 MAR 2014 Imp Beltran Medt Solera Cvd 5.3a617in Ti [id number] Implanted:Qty: 2 on 03/02/2014 by Brock Sawyer MD at [facility] N/A: Back [employer] [id number] / / [id number] 02 MAR 2014 Imp Scr Syn Can 4.0x20mm Ft Ss 206.020 Implanted:Qty: 2 on 03/02/2014 by Brock Sawyer MD at [facility] N/A: Back SYNTHES-STRATEC 206.020 / / Impulse Implanted:Qty: 1 on 03/02/2014 by Brock Sawyer MD at [facility] Explanted Type Area Drier Take Off Tender Device Identifier Shelf Expiration Date Model / Serial / Lot Imp Scr Danek Sext Can 6.5x40mm Legacy Ti Implanted:Qty: 2 on 05/02/2011 at [facility] Explanted:Qty: 2 on 03/02/2014 at [facility] N/A: Spine Lumbar [id number] / / [id number] 01MAY2011 Imp Scr Danek Set G4 Internal Hex [id number] Implanted:Qty: 4 on 05/02/2011 at [facility] Explanted:Qty: 4 on 03/02/2014 at [facility] N/A: Spine Lumbar [id number] / / [id number] 01MAY2011 Imp Beltran Danek Sext 60mm Ti [id number] Implanted:Qty: 2 on 05/02/2011 at [facility] Explanted:Qty: 2 on 03/02/2014 at [facility] N/A: Spine Lumbar [id number] / / [id number] 01MAY2011 Imp Scr Danek Sext Can 6.5x45mm Legacy Ti Implanted:Qty: 2 on 05/02/2011 at [facility] Explanted:Qty: 2 on 03/02/2014 at [facility] N/A: Spine Lumbar [id number] / / [id number] 01MAY2011 Description:BILATERAL SCREWS FROM S1, SCREW HEAD REMOVED, SCREW SHAFT REMAINS Procedures Procedure Name Priority Date/Time Associated Diagnosis Comments COMPREHENSIVE METABOLIC PANEL STAT 11/27/2014 4:05 PM CDT from Last 3 Months or Most Recently Relevant to Health Maintenance Results * (ABNORMAL) Comprehensive metabolic panel (11/27/2014 4:05 PM CDT) Sodium 139 133 - 144 mmol/L [facility] Potassium 4.0 3.4 - 5.3 mmol/L [facility] Chloride 105 94 - 109 mmol/L [facility] Carbon Dioxide 27 20 - 32 mmol/L [facility] Anion Gap 7 3 - 14 mmol/L [facility] Glucose 158(H) 70 - 99 mg/dL [facility] Urea Nitrogen 13 7 - 30 mg/dL [facility] Creatinine 0.76 0.52 - 1.04 mg/dL [facility] GFR Estimate 79 >60 mL/min/1. 7m2 [facility] Comment:Non GFR Calc GFR Estimate If Black >90 GFR Calc >60 mL/min/1. 7m2 [facility] Calcium 8.8 8.5 - 10.1 mg/dL [facility] Bilirubin Total 0.2 0.2 - 1.3 mg/dL [facility] Albumin 4.1 3.4 - 5.0 g/dL [facility] Protein Total 7.4 6.8 - 8.8 g/dL [facility] Alkaline Phosphatase 135 40 - 150 U/L [facility] ALT 55(H) 0 - 50 U/L [facility] AST 30 0 - 45 U/L [facility] Blood specimen (specimen) 11/27/2014 4:05 PM CDT 11/27/2014 4:14 PM CDT Ian Monsivais MD LAB - BLOOD ORDERABL ES [facility] [address] [place] [address] [phone] from Last 3 Months or Most Recently Relevant to Health Maintenance Advance Directives For more information, please contact: [phone] * Full Code (Latest Code Status on File) Date Activated Date Inactivated Comments 05/02/2011 8:26 PM 05/06/2011 2:41 PM * Full Code Date Activated Date Inactivated Comments 05/02/2011 2:17 PM 05/02/2011 8:26 PM Care Teams Hair Blender Relationship Specialty Start Date End Date Tommy Mcelroy MD PCP - General Family Practice 04/16/11
--- OUTSIDE RECORDS SUMMARY | 2023-11-30 17:36 | XMS_ITS | Encounter Summary ---
Author Organization [facility] Address [address] [place] [address] [place] [address] Care Team Providers Care Hearing Aide Technician Name Role Phone [facility][Note 3]- Unava ilable Hayes Mcelroy MD Primary Care Provider [phone] Encounter Details Date Type Department Care Team (Latest Contact Info) Description 09/22/2023 Travel Social History Tobacco Use Types Packs/Day Years Used Date Smoking Tobacco: Former Cigarettes Smokeless Tobacco: Never Comments:Quit august 2023 Alcohol Use Standard Drinks/Week Comments Not Currently 0 (1 standard drink = 0.6 oz pur e alcohol) [facility] Utilities Answer Date Recorded [...] any time in the past 12 m [facility], were you homeless or living in a halfway (including now)? No 09/23/2023 Sex and Gender Information Value Date Recorded Sex Assigned at Not on file Gender Identity Not on file Sexual Orientation Not on file documented as of this encounter Plan of Treatment Not on file documented as of this encounter Visit Diagnoses Not on filedocumented in this encounter Care Teams Hearing Aide Technician Relationship Specialty Start Date End Date [facility][Note 3]- [address] [place] [address] PCP - Primary Care Clinic 09/18/22 [place] [address] [place] [address] PCP - General 05/20/23 documented as of this encounter
--- OUTSIDE RECORDS SUMMARY | 2023-11-30 17:36 | XMS_ITS | Encounter Summary ---
Author Organization [facility] Address [address] [place] [id number] Care Team Providers Care Master Police Detective Name Role Phone [facility]- Unava ilable Hayes Mcelroy MD Primary Care Provider [phone] Reason for Visit * Reason Comments Follow up Recheck: Lumbar Encounter Details Date Type Department Care Team (Late st Contact Info) Description 09/04/2023 9:30 AM CDT Office Visit [facility] of [facility]) [address] [place] [address] Brock Sawyer MD [address] [place] [address] Pain due to internal orthopedic prosthetic devices, implants and grafts, initial encounter (HCC) (Primary Dx); Breakdown (mechanical) of internal fixation device of vertebrae, initial encounter (HCC) Social History Tobacco Use Types Packs/Day Years Used Date Smoking Tobacco: Former Cigarettes Smokeless Tobacco: Never [facility] Utilities Answer Date Recorded In the [...] any time in the past 12 m [facility], were you homeless or living in a [facility] (including now)? No 09/23/2023 Sex and Gender [...] - Inhaled Oxygen Concentration - - Weight 72.6 kg (160 lb) 09/04/2023 11:01 AM CDT Height 175.3 cm (5' 9) 09/04/2023 11:01 AM CDT Body Mass Index 23.63 09/04/2023 11:01 AM CDT documented in this encounter Patient Instructions * Patient Instructions* Jaye Guzman - 09/04/2023 9:[address] Sawyer has recommended the following at today's visit: Other - Continue with surgery as planned. If you have any questions (including if you don't receive a call to schedule your test/procedure), please call Dr. Sawyer's Care Team [phone]. documented in this encounter Progress Notes * Brock Sawyer MD - 09/04/2023 9:30 AM CDT DATE OF SERVICE: 09/04/23 CHIEF COMPLAINT: Low back pain. HPI: Ramona Sanders is a pleasant 62 y.o. female here today for evaluation for the above stated issues. During her previous visit with myself on 08/21/2023, the patient reported neck pain and low back pain, back pain greater than neck. She noted the pain felt like a burning across her low back bilaterally. The patient stated when her pain was most severe she would need to sit down and rest. She noted the report from her most recent MRI mentioned a viridiana fracture and she was concerned about this. Thepatient was currently taking 20mg of Oxycontin for pain management. She also noted pain radiating from the base of her neck to the base of her skull. The patient reported she feels like her head weighed 100 pounds and found it was hard to sleep due to her pain. Shehad tried using different pillows for sleeping and pain medication, but reported these had not offered her any relief. The patient stated she was not interested in receiving more injections. Today, the patient reports continued pain in both her neck and low back. She is wondering if her upcoming surgery will include addressing her cervical pain or will be focused solely on her lumbar hardware removal. The patient is wondering about using Dilaudid for her pain management postoperatively. The patient was seen because of Solid L2-3 through L5-S1 anterior and right dorsolateral bony fusion, noted on her CT Imaging scan. Her pain is rated at a 8/10 on the pain scale. REVIEW OF SYSTEMS: I have reviewed the last complete 10 point Review of Systems with the patient and any changes in findings are listed as part of today???s visit. All other systems are negative. The patient's Past Medical/Surgical/Family/Social history have been reviewed and verified with the patient. The patient???s current medications have been reviewed and verified with the patient. PHYSICAL EXAM: There were no vitals filed for this visit. GENERAL: No acute distress. HENT: Head normocephalic/atraumatic, hearing grossly intact bilaterally. EYES: Pupils equal, grossly EOMI, clear sclera. NECK: Supple, trachea is midline. RESPIRATORY: Breathing unlabored. BACK: No pain to palpation of lumbar spine. Range of Motion: Full range of motion with flexion, extension, rotation, and lateral bending at lumbar spine. Provacative Testing: Negative SLR. EXTREMITIES: Symmetrical bilaterally without deformity. NEUROLOGICAL: Patient ambulates without difficulty. 5/5 UE motor strength throughout, 5/5 LE motor strength throughout. Light touch sensation intact in bilateral UE/LE. No clonus. Neg Mcdonald's. Alert and oriented, follows commands appropriately, speech clear. Coordination: Heel/toe/gait intact. Tandem gait intact. Reflexes: supinator, biceps, triceps, patellar, achilles 2+. VASCULAR: Extremities are warm bilaterally. INTEGUMENTARY: Shows good hydration and turgor. PSYCHIATRY: Patient has normal affect. IMAGING: The patient did have imaging prior to this appointment which I reviewed myself and discussed the findings with her. The impression is: 08/12/2023 - MR Cervical Spine - [facility] CONCLUSION: 1. Solid ACDF from C4-5 to C6-7 and indeterminate at C3-4. Also indeterminate dorsal instrumented fusion status by MR. 2. No adjacent segment disc herniation or central stenosis. 3. C2-3 facet arthropathy and mild foraminal stenosis. C7-T1 bulge abuts dural sac. 4. Comparison to CT cervical dated 06/18/2021 shows persistent concern for possible nonhealed anterior C3-4 fusion. Fusions appeared solid anteriorly and posteriorly on CT from C4 to C7. 06/05/2023 - CT Lumbar Spine - [facility] CONCLUSION: L2-S1 anterior and and posterior fusions. The lumbosacral portion of the fusion has been revised as detailed above. Both rods are fractured above the L4 tulips. Additional findings as follows: 1.Solid L2-3 through L5-S1 anterior and right dorsolateral bony fusion. 2.Mild L1-L2 supra-adjacent segment degeneration. 3.Mild left L3-4 foraminal stenosis due to heterotopic bone formation. No other foraminal stenosis. 4.Patent central canal. 5.Findings correlate with the plain films from 04/10/2023. The L3-4 ventral fusion plate has been placed since 12/26/2021. L3-4 interbody bony bridging has matured at this level as has right dorsolateral bony bridging from L2 through S1. The previously noted oblique fracture through the left L3 IAP has healed. 04/10/2023 - XR Lumbar Spine - [facility] CONCLUSION: A/P lumbar fusion L3-pelvis. Appears fused. Hardware in place no signs of complication or loosening. No acute fractures or injuries. ASSESSMENT: 1. Questions about hardware removal answered. PLAN: 1. We discussed her current imaging and symptoms. After thorough review, I recommended she continuewith her surgery as planned. Following her hardware removal we will need to treat her with Dilaudidluis in the hospital and postoperatively. As a board certified orthopedic surgeon I do not feel that there is any role for further conservative management including physical therapy or other injections as there would be no expectation for those to give termite exterminator helper benefit. 2. A very comprehensive discussion was done with this patient in discussing surgical intervention and the gravity of this type of intervention. A shared decision-making approach was utilized. 3. Patient was specifically instructed on pre-operative and scheduling protocol and was given the appropriate contact information for the neon sign maker and the general information line. RISKS: Lumbar hardware removal risks were discussed and include but were not limited to nerve root injury, spinal fluid leakage, recurrent disc herniation, chronic pain syndromes, instability and need for fusion, infection, bleeding, anesthetic risks, general medical complications, and other unforeseen severe complications. She will follow up 2 weeks postoperatively. Surgical plan: Bilateral Removal of Hardware L2-Pelvis and exploring L3-4 Fusion. At the end of our visit, Ramona Sanders understands the current diagnosis and future treatment plan, and questions were answered satisfactorily. I also asked if there are any other questions or concerns otherwise, that she please call back to the office; understanding of this was expressed. SCRIBE ATTESTATION: By signing my name below, I, ZACH GUAMAN, attest that this documentation has been preparedunder the direction and in the presence of Brock Sawyer MD, 09/04/2023, 5:20 PM. PHYSICIAN ATTESTATION: I, Brock Sawyer MD, personally performed the services described in this documentation. All medical record entries made by the scribe were at my direction and in my presence. I have reviewed thechart and agree that the record reflects my personal performance, is accurate, and complete. Brock Sawyer MD SPINE SURGEON/ [facility] * Katelyn Jaramillo - 09/04/2023 9:30 AM CDT Reason for visit: Recheck: Lumbar Planned surgery: (B) HWR L2-Pelvis and exploration of L3-4 fusion Symptoms: Low back pain - describes as burning. Also reports posterior neck pain radiating into base of skull. Denies N/T in BUE/BLE. Pain Score: 8/10 Imaging/Location/ Date/ ([facility]): XR, 2vL - [facility] 04/10/23 CT, Lumbar - [facility] 06/05/23 CT, Abd/pelvis - [facility] 06/05/23 MRI, Cervical - [facility] 08/18/23 Injections: (R) L4-5 HWR Location: [facility] 05/06/23 Relief: None Physical Therapy: None Current pain meds: Oxycodone Oxycontin Tizanidine Tylenol Who manages pain meds: Pain management Changes in health history since last visit: None Any major falls in the last year: no Did the fall(s) result in injury: no Is the patient at risk for falls: no Is a Disability or Workability Form needed - no Work Comp: no MVA: no Note: Patient would like to discuss discrepancy between original surgical discussion and the surgery that was scheduled for her. ERUM Mckeon 09/04/2023 11:00 AM documented in this encounter Plan of Treatment Not on file documented as of this encounter Visit Diagnoses Diagnosis Pain due to internal orthopedic prosthetic devices, implants and grafts, initial encounter (HCC)- Primary Breakdown (mechanical) of internal fixation device of vertebrae, initial encounter (HCC) documented in this encounter Care Teams Master Police Detective Relationship Specialty Start Date End Date [facility]- [address] [place] [address] PCP - Primary Care Clinic 09/18/22 [place] [address] [place] [address] PCP - General 05/20/23 documented as of this encounter
--- OUTSIDE RECORDS SUMMARY | 2023-11-30 17:36 | XMS_ITS | Encounter Summary ---
Author Organization [facility] Address [address] [place] [id number] Care Team Providers Care Cold Meat Cook Name Role Phone [facility]- Unava ilable Hayes Mcelroy MD Primary Care Provider [phone] Reason for Referral * (Routine) - Open Specialty Diagnoses / Procedures Referred By Contac t Referred To Contact Procedures Discharge Instructions Vladimir Paez PA-C [address] [address] Referral ID Status Reason Start Date Expiration Date Visits Re quested Visits Authorized [id number] Open 09/25/2023 1 1 * (Routine) - Open Specialty Diagnoses / Procedures Referred By Contac t Referred To Contact Procedures Discharge Instructions Vladimir Paez PA-C [address] [address] Referral ID Status Reason Start Date Expiration Date Visits Re quested Visits Authorized [id number] Open 09/25/2023 1 1 * (Routine) - Open Specialty Diagnoses / Procedures Referred By Contac t Referred To Contact Procedures Discharge Instructions Vladimir Paez PA-C [address] [address] Referral ID Status Reason Start Date Expiration Date Visits Re quested Visits Authorized [id number] Open 09/25/2023 1 1 * (Routine) - Open Specialty Diagnoses / Procedures Referred By Contac t Referred To Contact Procedures Wound care Vladimir Paez PA-C [address] [address] Referral ID Status Reason Start Date Expiration Date Visits Re quested Visits Authorized [id number] Open 09/25/2023 1 1 * (Routine) - Open Specialty Diagnoses / Procedures Referred By Contac t Referred To Contact Procedures Dressing Change Vladimir Paez PA-C [address] [address] Referral ID Status Reason Start Date Expiration Date Visits Re quested Visits Authorized [id number] Open 09/25/2023 1 1 * (Routine) - Open Specialty Diagnoses / Procedures Referred By Contac t Referred To Contact Procedures Discharge Instructions Vladimir Paez PA-C [address] [address] Referral ID Status Reason Start Date Expiration Date Visits Re quested Visits Authorized [id number] Open 09/25/2023 1 1 * (Routine) - Open Specialty Diagnoses / Procedures Referred By Contac t Referred To Contact Procedures Shower Vladimir Paez PA-C [address] [address] Referral ID Status Reason Start Date Expiration Date Visits Re quested Visits Authorized [id number] Open 09/25/2023 1 1 * (Routine) - Open Specialty Diagnoses / Procedures Referred By Contac t Referred To Contact Procedures Discharge Instructions Vladimir Paez PA-C [address] [address] Referral ID Status Reason Start Date Expiration Date Visits Re quested Visits Authorized [id number] Open 09/25/2023 1 1 * (Routine) - Open Specialty Diagnoses / Procedures Referred By Contac t Referred To Contact Procedures Activity as tolerated Vladimir Paez PA-C [address] [address] Referral ID Status Reason Start Date Expiration Date Visits Re quested Visits Authorized [id number] Open 09/25/2023 1 1 * (Routine) - Open Specialty Diagnoses / Procedures Referred By Contac t Referred To Contact Vladimir Paez PA-C [address] [address] Blaire Sharif PA-C [address] [address] Referral ID Status Reason Start Date Expiration Date Visits Re quested Visits Authorized [id number] Open 09/25/2023 1 1 Question Answer Specify time frame for follow up? 2 Weeks Instructions to follow-up provider routine post op f/u Comments Return to clinic in 2-4 weeks for post op visit. Please call [phone] option 1 for an appointment if no appointment scheduled within 1 week of discharge * (Routine) - Open Specialty Diagnoses / Procedures Referred By Contac t Referred To Contact Vladimir Paez PA-C [address] [address] Blaire Sharif PA-C [address] [address] Referral ID Status Reason Start Date Expiration Date Visits Re quested Visits Authorized [id number] Open 09/25/2023 1 1 Question Answer Instructions to follow-up provider n/a Comments If you need a refill on your prescriptions, or you have questions or concerns, please call [phone] during office hours, Friday-Friday 8:30 a.m. to 4:30 p.m. Please plan ahead if you are running low and expect to require a refill. * (Routine) - Open Specialty Diagnoses / Procedures Referred By Contac t Referred To Contact Procedures Temperature >101 (38.3 degrees Celsius) Vladimir Paez PA-C [address] [address] Referral ID Status Reason Start Date Expiration Date Visits Re quested Visits Authorized [id number] Open 09/25/2023 1 1 * (Routine) - Open Specialty Diagnoses / Procedures Referred By Contac t Referred To Contact Procedures Severe uncontrolled pain Vladimir Paez PA-C [address] [address] Referral ID Status Reason Start Date Expiration Date Visits Re quested Visits Authorized [id number] Open 09/25/2023 1 1 * (Routine) - Open Specialty Diagnoses / Procedures Referred By Contac t Referred To Contact Procedures Increased tenderness or swelling Vladimir Paez PA-C [address] [address] Referral ID Status Reason Start Date Expiration Date Visits Re quested Visits Authorized [id number] Open 09/25/2023 1 1 * (Routine) - Open Specialty Diagnoses / Procedures Referred By Contac t Referred To Contact Procedures Persistent nausea or vomiting Vladimir Paez PA-C [address] [address] Referral ID Status Reason Start Date Expiration Date Visits Re quested Visits Authorized [id number] Open 09/25/2023 1 1 * (Routine) - Open Specialty Diagnoses / Procedures Referred By Contac t Referred To Contact Procedures Pain not relieved by medication Vladimir Paez PA-C [address] [address] Referral ID Status Reason Start Date Expiration Date Visits Re quested Visits Authorized [id number] Open 09/25/2023 1 1 * (Routine) - Open Specialty Diagnoses / Procedures Referred By Contac t Referred To Contact Procedures Numbness/pain in extremity Vladimir Paez PA-C [address] [address] Referral ID Status Reason Start Date Expiration Date Visits Re quested Visits Authorized [id number] Open 09/25/2023 1 1 * (Routine) - Open Specialty Diagnoses / Procedures Referred By Contac t Referred To Contact Procedures Increased confusion Vladimir Paez PA-C [address] [address] Referral ID Status Reason Start Date Expiration Date Visits Re quested Visits Authorized [id number] Open 09/25/2023 1 1 * (Routine) - Open Specialty Diagnoses / Procedures Referred By Contac t Referred To Contact Procedures Inability to eat, drink, or take medication Vladimir Paez PA-C [address] [place] [address] Referral ID Status Reason Start Date Expiration Date Visits Re quested Visits Authorized [id number] Open 09/25/2023 1 1 * (Routine) - Open Specialty Diagnoses / Procedures Referred By Contac t Referred To Contact Procedures Difficulty breating, headache, or visual disturbance Vladimir Paez PA-C [address] [place] [address] Referral ID Status Reason Start Date Expiration Date Visits Re quested Visits Authorized [id number] Open 09/25/2023 1 1 * (Routine) - Open Specialty Diagnoses / Procedures Referred By Contac t Referred To Contact Procedures Any questions or concerns Vladimir Paez PA-C [address] [place] [address] Referral ID Status Reason Start Date Expiration Date Visits Re quested Visits Authorized [id number] Open 09/25/2023 1 1 Reason for Visit * Inpatient Admission (Routine) Specialty Diagnoses / Procedures Referred By Contac t Referred To Contact Diagnoses Pain due to bilateral hip joint prostheses, initial encounter (HCC) Mechanical breakdown of internal fixation device of vertebrae, initial encounter (HCC) Pain due to bilateral hip joint prostheses, initial encounter [T84.84XA, Z96.643] Mechanical breakdown of internal fixation device of vertebrae, initial encounter (HCC) [T84.216A] Procedures REMOVE SPINE FIX DEV,POST SGM* BILATERAL HARDWARE REMOVAL L2- PELIVS WITH EXPLORATION OF L3-4 FUSION Referral ID Status Reason Start Date Expiration Date Visits Re quested Visits Authorized [id number] 1 1 Encounter Details Date Type Department Care Team (Late st Contact Info) Description 09/23/2023 5:55 AM CDT - 09/25/2023 11:44 AM CDT Hospital Encounter [id number] [facility] [place] [address] Brock Sawyer MD [address] [facility] [address] [place] [address] Chronic pain disorder Discharge Disposition: Returning Home/Self Care Social History Tobacco Use Types Packs/Day Years Used Date Smoking Tobacco: Former Cigarettes Smokeless Tobacco: Never Tobacco Cessation:Counseling Given: Not Answered Comments:Quit august 2023 Alcohol Use Standard Drinks/Week Comments Not Currently 0 (1 standard drink = 0.6 oz pur e alcohol) [facility] Utilities Answer Date Recorded In the past 12 months has e [employer], gas, oil, or water [employer] threatened to shut off services in your [...] any time in the past 12 m [facility], were you homeless or living in a [...] CDT Inhaled Oxygen Concentration - - Weight 77.6 kg (171 lb) 09/23/2023 12:16 PM CDT Height 175.3 cm (5' 9) 09/23/2023 12:16 PM CDT Body Mass Index 25.25 09/23/2023 12:16 [...] device of vertebrae, initial encounter ([facility]) [T84.216A] Principal Problem: Chronic pain disorder PROCEDURES [...] in november.* naloxone (NARCAN) 4 mg/actuation Nasal [place] Administer one dose (4 mg) into nostril [...] re-establish your bowel program. You may take vpdt-gro-eltcqxn stool medications as directed by the package [...] Up Referral Priority: Routine Referred to Provider: BLAIRE SHARIF Number of Visits Requested: 1 Follow Up Referral Priority: Routine Referred to Provider: BLAIRE SHARIF Number of Visits Requested: 1 Special instructions: Obtain further long acting opioids from your pain clinic. FOLLOW-UP: She should see [facility] for first recheck in 2-4 weeks. Call for appointment if one not already in place. [phone] Sawyer [phone] Total time spent for discharge on date of discharge: 20 minutes. Vladimir Paez PA-C [facility] documented in this encounter [...] 3 09/25/2023 naloxone (NARCAN) 4 mg/actuation Nasal [place] Administer one dose (4 mg) into nostril [...] - 09/25/2023 11:02 AM CDT Ramona Benavides [place] 1960 [id number] P: Discharge A: Discharged ambulatory to home [...] at 09/25/2023 0906 Last data filed at 09/24/20232125 Gross per 24 hour Intake 300 ml [...] with metformin, chronic lower back pain on GAUGE MACHINE OPERATOR narcotics, hyperlipidemia managed with Zocor who had [...] exploring L3-4 Fusion and replacement of rods L3-Y7yngrs Routine postop cares including DVT prophylaxis pain management, drain management,ambulation per NSGYteam T2DM On GAUGE MACHINE OPERATOR metformin. Hold for now Very low-dose SSI with hypoglycemia protocol Regular diet at patient request Depression Resume GAUGE MACHINE OPERATOR Wellbutrin and Cymbalta Chronic pain syndrome 2/2 LBP On GAUGE MACHINE OPERATOR opoid including Cymbalta. Primary team/NSGY managing pain [...] hours 20 mL/24 hours Vladimir Paez PA-C [facility] * Waqas Rodriguez RN [...] with metformin, chronic lower back pain on GAUGE MACHINE OPERATOR narcotics, hyperlipidemia managed with Zocor who had [...] exploring L3-4 Fusion and replacement of rods L3-G7lecao Routine postop cares including DVT prophylaxis pain management, drain management,ambulation per NSGYteam T2DM On GAUGE MACHINE OPERATOR metformin. Hold for now Very low-dose SSI with hypoglycemia protocol Regular diet at patient request Depression Resume GAUGE MACHINE OPERATOR Wellbutrin and Cymbalta Chronic pain syndrome 2/2 LBP On GAUGE MACHINE OPERATOR opoid including Cymbalta. Primary team/NSGY managing pain [...] for: POTASSIUM, SODIUM, WBC Fabiola Zavala PA-C [facility] * Soco Paez RN [...] to call for help, name of assigned direct care specialist, PatientInformation booklet, initial physician orders, hourly rounding [...] DM II, chronic lower back pain on GAUGE MACHINE OPERATOR narcotics, HLD Patient Seen In: Room Family/Caregiver [...] most limited by worsening pain limiting progression [facility] AM-PAC 6-Clicks Turning over in bed [...] steps with a railing: Minimum/contact guard/standby assist AM-PAC 6 Clicks: Mobility Total Score: 19 The [...] CONSULT NOTE Patient Name: Ramona Sanders Address: [address] [place] [address] [place] [address] Age:62 y.o. Sex: female Admission Date/Time: 09/23/2023 [...] with metformin, chronic lower back pain on GAUGE MACHINE OPERATOR narcotics, hyperlipidemia managed with Zocor. At bedside [...] mg, 0.1 mg, Intravenous, Q1 MINUTE PRN, Chrystal, Baltazar G, PA-C ondansetron (Zofran) injection 4 mg, 4 [...] Other Skin irritation around eyes Baclofen Nausea Kwycmplkaqjx-Abrmavp-Cpgczhs Compazine [Prochlorperazine] Other Tongue in and out [...] with metformin, chronic lower back pain on GAUGE MACHINE OPERATOR narcotics, hyperlipidemia managed with Zocor. Principal Problem: Chronic pain disorder S/p bilateral removal of hardware L2-Pelvis and exploring L3-4 Fusion and replacement of rods L3-W8lcwih Routine postop cares including DVT prophylaxis pain management, ambulation per NSGYteam T2DM On GAUGE MACHINE OPERATOR metformin. Hold for now Very low-dose SSI with hypoglycemia protocol Depression Resume GAUGE MACHINE OPERATOR Wellbutrin and Cymbalta Chronic pain syndrome 2/2 LBP On GAUGE MACHINE OPERATOR opoid including Cymbalta. Primary team/NSGY managing pain I thank for the opportunity to participate in the [...] Outcome: Met this shift Flowsheets (Taken 09/24/2023 3863) Environmental Safety Interventions: Standard Interventions in Place [...] device of vertebrae, initial encounter ([facility]) [T84.216A] Chronic pain disorder [G89.4] Admitted from: Home Prior: Living Arrangements: Spouse/significant other Jerry Hughesdith (UNIQUE) [phone] (M) Support Systems: Spouse/significant other Primary decision [...] management will continue to follow. NICOLAS Dewey, SUPERVISOR [employer] 3:23 PM, 09/24/2023 P: [phone] F: [phone] * Anjali Mclean RN - 09/24/2023 10:32 [...] Crandall RN Outcome: Met this shift 09/23/2023 143 by Santa Crandall RN Outcome: Met this [...] Pt smiling, declining tylenol and oxy. When financial writer returnedto bed pt crying and stating she has moderated pain. Hitting the pillow with her arm. I just have awave of pain. Pt given iv pain meds. Agitated screaming out, putting pillow over head. Offered meds, pt doesn't answer. Pt then stated she was worried about her SO, what he wsa going to eat because she usually cooks for him. [employer] spoke with Dr Albert will give tylenol and oxy and then send pt to the floor. In the past admission pt had to be given narcan. * Marlo Arriola RN - 09/23/2023 8:32 AM CDT 2 rods, 10 set screws, and 4 screws was explanted by Dr Sawyer and discarded. See EJNNA Arriola Addendum: Total of 5 screws was [...] 09/23/2023 8:32 AM CDT Ramona Sanders [id number] DATE OF OPERATIVE PROCEDURE: 09/23/2023 PROCEDURE Removal [...] the recovery room bed in satisfactory condition. [facility] PAC provided assistance with preoperative positioning, prepping, and draping of the patient. The housing assistant property manager provided vital operative assistance with retraction using instruments best providing the necessary exposure and visualization for the case, manipulation of tissues to achieve hemostasis, suction for visualization and assisted in wound closure. The housing assistant property manager also helped place instrumentation under direct visualization of the surgeon. Postoperatively they assisted in the transfer of the patient off of the operative table and transition into the post anesthesia care unit with hester sition of care being made to the anesthesiologist. Brock Sawyer MD SPINE SURGEON/ [facility] documented in this encounter Plan of [...] - 100 mg/dL 09/25/2023 11:36 AM CDT [facility] Blood 09/25/2023 7:53 AM CDT 09/25/2023 11:36 AM CDT Brock Sawyer MD LAB POINT OF CARE TEST RESULTS [facility] [address] [address] * XR C-ARM SPINE (09/23/2023 9:14 AM [...] documented in this encounter Visit Diagnoses Diagnosis Chronic pain disorder- Primary Chronic pain syndrome documented in this encounter Admitting Diagnoses Diagnosis Chronic pain disorder Chronic pain syndrome documented in this encounter Administered Medications Inactive Administered Medications - up to 3 most recent administrations Medication Order MAR Action Action Date Dose Rate Site saline FLUSH syringe 10 mL 10 mL, Intravenous, NEEDED, Starting on Fri09/23/23 at 0559, Until Fri09/23/23 at 0948, Pre-Op, Line Care Given 09/23/2023 6:42 AM CDT 10 mL acetaminophen (TYLENOL) rectal suppository 650 mg 650 mg, Rectal, FOUR TIMES A DAY, First dose on Fri09/23/23 at 1200, Until Discontinued, Post-Op acetaminophen (TYLENOL) tablet 1,000 mg 1,000 mg, oral, ONCE, 1 dose, On Fri09/23/23 at 0600, Pre-Op Given 09/23/2023 6:37 AM CDT 1,000 mg acetaminophen (TYLENOL) tablet 1,000 mg 1,000 mg, oral, FOUR TIMES A DAY, First dose on Fri09/23/23 at 1200, Until Discontinued, Post-Op Given 09/25/2023 8:04 AM CDT 1,000 mg Given 09/24/2023 10:09 PM CDT 1,000 mg Given 09/24/2023 5:26 PM CDT 1,000 mg acetaminophen (TYLENOL) tablet 500-1,000 mg 500-1,000 mg, oral, ONCE, 1 dose, On Fri09/23/23 at 0945, Phase 1/2 Given 09/23/2023 11:16 AM CDT 1,000 mg buPROPion XL (WELLBUTRIN XL) extended release tablet 24 HR 150 mg 150 mg, oral, DAILY, First dose on Fri09/24/23 at 0800, Until Discontinued Given 09/25/2023 8:05 AM CDT 150 mg Given 09/24/2023 8:05 AM CDT 150 mg ceFAZolin (Ancef) 1 g in sodium chloride 0.9 % 100 mL IV piggyback 1 g, Intravenous, EVERY 8 HOURS (NS), 2 doses, First dose (after last reorder) on Fri09/23/23 at 1600, Last dose on Fri09/24/23 at 0000, Post-Op, Administer over 30 Minutes New Bag 09/23/2023 11:54 PM CDT 1 g 200 mL/hr New Bag 09/23/2023 4:03 PM CDT 1 g 200 mL/hr dextrose 50% in water IV solution 25-50 [...] Given 09/24/2023 8:04 AM CDT 120 mg FENTANYL (PF) 50 MCG/ML INJECTION SOLUTION 1 dose, Starting on Fri09/23/23 at 0620, Until Fri09/23/23 at 0620 fentaNYL (SUBLIMAZE) injection 25-50 mcg 25-50 mcg, Intravenous, EVERY 5 MINUTES NEEDED, 8 doses, Starting on Fri09/23/23 at 0941, Until Fri09/23/23 at 1131, Phase 1/2, ACUTE SURGICAL PAIN Given 09/23/2023 11:15 AM CDT 25 mcg Given 09/23/2023 11:05 AM CDT 25 mcg Given 09/23/2023 11:00 AM CDT 50 mcg gabapentin (NEURONTIN) capsule 600 mg 600 mg, oral, ONCE, 1 dose, On Fri09/23/23 at 0600, Pre-Op Given 09/23/2023 6:37 AM CDT 600 mg glucagon, human recombinant (Glucagen) injection (conc: 1 mg/mL) 1 mg 1 mg, IntraMUSCULAR, EVERY 15 MINUTES NEEDED, 2 doses, Starting on Fri09/23/23 at 1341, Until Fri09/25/23 at 1744, for hypoglycemia HYDROmorphone (DILAUDID) syringe 0.2-0.4 mg 0.2-0.4 mg, Intravenous, EVERY 5 MINUTES NEEDED, 5 doses, Starting on Fri09/23/23 at 0941, Until Fri09/23/23 at 1131, Phase 1/2, POST-ACUTE PAIN MANAGEMENT Given 09/23/2023 11:16 AM CDT 0.2 mg Given 09/23/2023 11:06 AM CDT 0.3 mg HYDROmorphone (DILAUDID) syringe 0.5-1 mg 0.5-1 mg, [...] Fri09/25/23 at 1744, Post-Op, nausea & vomiting oxyCODONE (immediate release) (ROXICODONE) tablet 15-20 mg 15-20 mg, oral, EVERY 4 HOURS NEEDED, Starting on Fri09/23/23 at 1133, Until Fri09/25/23 at 1744, pain Given 09/24/2023 9:16 AM CDT 20 mg oxyCODONE (immediate release) (ROXICODONE) tablet 5 mg 5 mg, oral, NEEDED, MAY REPEAT X1, 2 doses, Starting on Fri09/23/23 at 0941, Until Fri09/23/23 at 1131, Phase 1/2, Pain, when taking PO, pain while in recovery area Given 09/23/2023 11:17 AM CDT 5 mg oxyCODONE (oxyCONTIN) extended release tablet 12 HR 10 mg 10 mg, oral, ONCE, 1 dose, On Fri09/23/23 at 0600, Pre-Op Given 09/23/2023 6:38 AM CDT 10 mg oxyCODONE (oxyCONTIN) extended release tablet 12 [...] Given 09/23/2023 9:17 PM CDT 20 mg documented in this encounter Active and Recently [...] RN)1726 (See Alternative - Provider: Anjali Mclean RN)2209 (See Alternative - Provider: Sole Aguilera, JENNA) 0804 (See Alternative - Provider: Rika Lake RN) acetaminophen (TYLENOL) tablet 1,000 mg (COMPLETED) 1,000 mg, oral, ONCE, 1 dose, On Fri09/23/23 at 0600, Pre-Op 0637 (Given - Provider: Savita Caldwell RN) acetaminophen (TYLENOL) tablet 1,000 mg(Linked Group 1) 1,000 mg, oral, FOUR TIMES A DAY, First dose on Fri09/23/23 at 1200, Until Discontinued, Post-Op 1324 (See Alternative - Provider: Santa Crandall, JENNA)1801 (Given - Provider: Michelle Schwartz RN)2200 (Declined - Provider: Soco Paez RN) 0805 (Given - Provider: Anjali Mclean RN)1228 (Given - Provider: Anjali Mclean RN)1726 (Given - Provider: Anjali Mclean RN)2209 (Given - Provider: Sole Aguilera RN) 0804 (Given - Provider: Rika Lake, JENNA) acetaminophen (TYLENOL) tablet 500-1,000 mg (COMPLETED) 500-1,000 mg, oral, ONCE, 1 dose, On Fri09/23/23 at 0945, Phase 1/2 1116 (Given - Provider: Seema Cottrell, JENNA) buPROPion XL (WELLBUTRIN XL) extended release tablet 24 HR 150 mg 150 mg, oral, DAILY, First dose on Fri09/24/23 at 0800, Until Discontinued 08 (Given - Provider: Anjali Mclean, JENNA) 804 (Given - Provider: Rika Lake, JENNA) ceFAZolin (Ancef) 1 g in sodium chloride 0.9 % 100 mL IV piggyback (COMPLETED) 1 g, Intravenous, EVERY 8 HOURS (NS), 2 doses, First dose (after last reorder) on Fri09/23/23 at 1600, Last dose on Fri09/24/23 at 0000, Post-Op, Administer over 30 Minutes 1603 (New Bag - Provider: Michelle Schwartz RN)2354 (New Bag - Provider: Soco Paez RN) ceFAZolin (Ancef) 2 g in sterile water IV syringe (COMPLETED) Intravenous, ONCE ON INDUCTION, 1 dose, Starting on Fri09/23/23 at 0559, Until Fri09/23/23 at 0822, Intra-Op, Administer over 3 Minutes 0822 (New Bag - Provider: Nay Zamudio APRN, PLATE CLEANER) dicyclomine (BentyL) tablet 20 mg 20 mg, oral, TWICE A DAY, First dose on Fri09/23/23 at 2000, Until Discontinued 1999 (Given - Provider: Soco Paez RN) 804 (Given - Provider: Anjali Mclean, JENNA)193 (Given - Provider: Sole Aguilera, JENNA) 08 (Given - Provider: Rika Lake, JENNA) docusate sodium (COLACE) capsule 100 mg 100 mg, oral, TWICE A DAY, First dose on Fri09/23/23 at 1145, Until Discontinued, Post-Op 1324 (Given - Provider: Santa Crandall, JENNA)1999 (Given - Provider: Soco Paez RN) 0805 (Given - Provider: Anjali Mclean RN)1932 (Given - Provider: Sole Aguilera RN) 0806 (Given - Provider: Rika Lake RN) DULoxetine (CYMBALTA) delayed release capsule 120 mg 120 mg, oral, DAILY, First dose on Fri09/24/23 at 0800, Until Discontinued 0804 (Given - Provider: Anjali Mclean RN) 0805 (Given - Provider: Rika Lake RN) gabapentin (NEURONTIN) capsule 600 mg (COMPLETED) 600 mg, oral, ONCE, 1 dose, On Fri09/23/23 at 0600, Pre-Op 0637 (Given - Provider: Savita Caldwell RN) insulin lispro (HumaLOG; Admelog) 100 unit/mL injection - pen 0-3 Units(Linked Group 2) 0-3 Units, Subcutaneous, AT BEDTIME, First dose on Fri09/23/23 at 2200, Until Discontinued 2200 (Not Given - Provider: Soco Paez RN [...] Discontinued 1345 (Not Given - Provider: Sarah Mrogan RN - Reason: Clinically appropriate (comment))1805 (Not [...] dose on Fri09/23/23 at 2000, Until Discontinued 2000 (Given - Provider: Soco Paez RN) 0805 [...] Mclean RN)1726 (Given - Provider: Anjali Mclean RN)2209 (Given - Provider: Sole Aguilera RN) 0804 (Given - Provider: Rika Lake RN) omeprazole (PriLOSEC) delayed release capsule 40 mg 40 mg, oral, DAILY, First dose on Fri09/24/23 at 0800, Until Discontinued 0805 (Given - Provider: Anjali Mclean RN) 0805 (Given - Provider: Rika Lake RN) oxyCODONE [...] RN) 0603 (Given - Provider: Soco Paez RN)1311 (Given - Provider: Anjali Mclean, JENNA)2208 (Given - Provider: Sole Aguilera, JENNA) 06 (Given - Provider: Waqas Rodriguez, JENNA) pramipexole (MIRAPEX) tablet 0.5 mg 0.5 mg, oral, EVERY EVENING, First dose on Fri09/23/23 at 2000, Until Discontinued 1999 (Given - Provider: Soco Paez, JENNA) 1931 (Given - Provider: Sole Aguilera, JENNA) simvastatin (ZOCOR) tablet 20 mg 20 mg, oral, AT BEDTIME, First dose on Fri09/23/23 at 2200, Until Discontinued 2116 (Given - Provider: Soco Paez, JENNA) 2208 (Given - Provider: Sole Aguilera, JENNA) tranexamic acid (CYKLOKAPRON) 1,000 mg in sodium chloride 0.9 % 100 mL IV BOLUS (COMPLETED) 1,000 mg, Intravenous, ONCE, 1 dose, On Fri09/23/23 at 0600, Pre-Op, Administer over 10 Minutes 0814 (New Bag - Provider: Nay Zamudio, VERNON, PLATE CLEANER) PRN Medication Order 09/23/2023 09/24/2023 09/25/2023 saline [...] doses, Starting on Fri09/23/23 at 0941, Until Tu09/23/23 at 1131, Phase 1/2, ACUTE SURGICAL PAIN [...] doses, Starting on Fri09/23/23 at 0941, Until 09/23/23 at 1131, Phase 1/2, POST-ACUTE PAIN MANAGEMENT [...] Mclean RN)1931 (Given - Provider: Sole Aguilera, RN)2209 (Given - Provider: Sole Aguilera, RN) 0026 (Given - Provider: Waqas Rodriguez, JENNA)0255 (Given - Provider: Waqas Rodriguez, JENNA)0803 (Given - Provider: Rika Lake RN) hydrOXYzine pamoate (Vistaril) capsule 50 mg 50 mg, oral, EVERY 6 HOURS NEEDED, Starting on Fri09/23/23 at 1155, Until Fri09/25/23 at 1744, Adjuvant to pain management naloxone (NARCAN) injection 0.1 mg 0.1 mg, Intravenous, EVERY 1 MINUTE PRN, Starting on Fri09/23/23 at 1133, Until Fri09/25/23 at 1744, Post-Op, Opiate Reversal ondansetron (Zofran) disintegrating tablet 4 mg(Linked Group 3) 4 mg, oral, EVERY 8 HOURS NEEDED, Starting on Fri09/23/23 at 1133, Until Fri09/25/23 at 1744, Post-Op, nausea & vomiting ondansetron (Zofran) injection 4 mg(Linked Group 3) 4 mg, Intravenous, EVERY 8 HOURS NEEDED, Starting on Fri09/23/23 at 1133, Until Fri09/25/23 at 1744, Post-Op, nausea & vomiting oxyCODONE (immediate release) (ROXICODONE) tablet 15-20 mg 15-20 mg, oral, EVERY 4 HOURS NEEDED, Starting on Fri09/23/23 at 1133, Until Fri09/25/23 at 1744, pain 0916 (Given - Provider: [...] Until Fri09/23/23 at 0948, Intra-Op, per procedure 09 (Given - Provider: Brock Sawyer MD) traZODone (DESYREL) tablet 100 mg 100 mg, oral, AT BEDTIME NEEDED, Starting on Fri09/23/23 at 1337, Until Fri09/25/23 at 1744, sleep vancomycin (VANCOCIN) powder (OR) (CANCELED) INTRA-PROCEDURE NEEDED, Starting on Fri09/23/23 at 0909, Until Fri09/23/23 at 0948, Intra-Op 0909 (Given - Provider: Brcok Sawyer MD) Linked Groups Order Group 1: [...] Fri09/25/23 at 1744, Post-Op, nausea & vomiting Or ondansetron (Zofran) disintegrating tablet 4 mgJump to med 4 mg, oral, EVERY 8 HOURS NEEDED, Starting on Fri09/23/23 at 1133, Until Fri09/25/23 at 1744, Post-Op, nausea & vomiting Group [...] area documented in this encounter Care Teams Cold Meat Cook Relationship Specialty Start Date End Date [facility]- [address] [address] PCP - Primary Care Clinic 09/18/22 [place] [address] [place] [address] PCP - General 05/20/23 documented as of this encounter
--- OUTSIDE RECORDS SUMMARY | 2023-11-30 17:36 | XMS_ITS | Continuity of Care Document ---
Author Organization [facility] Address [address] [place] [address] Care Team Providers Care Energy Infrastructure Engineer Name Role Phone Rodolfo Long CRNA Unavailable Unavaila ble Procedures Procedure Date ANESTH, NERVE BLOCK/INJ Percutaneous Image guided destruction pr ocedures B ANESTH, NERVE BLOCK/INJ Advance Directives Directive Yes / No Effective Date File Name No Information Encounters Encounter Description Practice Location Reason(s) For Visit Diagnoses Date Provider Providers Copied on Encounter [facility], [address], [place], [id number], [facility] No Information Ethan Reynolds. [address], [place], [id number], . tel:[phone] Referring Provider: Divina Deras, [address] [place], [place] [address] [place], [address] . tel:[phone] [facility], [address], [place], [id number], [facility] No Information Devang Lockwood. [address], [facility], [place], [place], [id number], . tel:[phone] Referring Provider: Divina Deras, [address] [place] [place], [address] . tel:[phone] [facility], [address], [place], [id number], [facility] No Information Cy Campos. [address] [facility] [address], [facility] [place], [place], [place], [id number], . tel:[phone] Referring Provider: Divina Deras, [address] [facility] [place], [address] . tel:[phone] Family History Family Member Type Diagnosis Age At Onset No Information Payers Payer name Insurance type Covered libertarian ID Authoriza tion(s) No Information Social History [...]
--- OUTSIDE RECORDS SUMMARY | 2023-11-30 17:36 | XMS_ITS | Referral Summary ---
Author Organization [facility] Address [address] [place] [address] Care Team Providers Care Web Page Developer Name Role Phone Tommy Mcelroy MD Primary Care Provider [phone] Allergies Active Allergy Reactions Criticality Noted Date Comments Baclofen 12/23/2012 Diphenhydramine-Zinc Acetate Other (See Comments) 04/24/2011 Makes restless leg symptoms worse. Compazine Anaphylaxis 10/23/2004 Cyclobenzaprine Other (See Comments) 04/24/2011 Makes restless leg symptoms worse. Cyclobenzaprine Hcl 12/23/2012 Methocarbamol Other (See Comments) 04/24/2011 Makes restless leg symptoms worse. Mirtazapine 12/23/2012 Heqsctyhnzpz-Iebxxaw-Mnvk ine 12/23/2012 Medications Medication Sig Dispensed Refills [...] Comments Blood Pressure 111/70 01/08/2023 1:50 PM PHOTOGRAPHIC MACHINE OPERATOR Pulse 73 01/08/2023 1:50 PM PHOTOGRAPHIC MACHINE OPERATOR Temperature 36.7 ??C (98 ??F) 01/08/2023 1:50 PM PHOTOGRAPHIC MACHINE OPERATOR Respiratory Rate 18 01/08/2023 1:50 PM PHOTOGRAPHIC MACHINE OPERATOR Oxygen Saturation 96% 01/08/2023 1:50 PM PHOTOGRAPHIC MACHINE OPERATOR Inhaled Oxygen Concentration - - Weight 77.1 kg (170 lb) 11/27/2014 3:41 PM CDT Height 175.3 cm (5' 9) 11/27/2014 3:41 PM CDT Body Mass Index 25.1 11/27/2014 3:41 PM CDT Plan of Treatment Not on file Medical Devices Implanted Type Area Automotive Services Manager Device Identifier Shelf Expiration Date Model / Serial / Lot Graft Bone Foam Pack Vitoss 10ml Bio Active [id number] Implanted:Qty: 1 on 05/02/2011 at [facility] N/A: Spine Lumbar 10/04/[id number] / / [id number] Iom Supplies Implanted:Qty: 1 on 05/02/2011 at [facility] Cell Saver Standby Implanted:Qty: 1 on 05/02/2011 at [facility] Graft Bone Crush Canc 15ml [id number] Implanted:Qty: 1 on 05/02/2011 at [facility] N/A: Spine Lumbar [id number] / [id number] / 14x12 Align Implanted:Qty: 1 on 05/02/2011 at [facility] N/A: Spine Lumbar [id number] / / [id number] 16x12 Align Implanted:Qty: 1 on 05/02/2011 at [facility] N/A: Spine Lumbar [id number] / / [id number] 25mm Plate Implanted:Qty: 1 on 05/02/2011 at [facility] N/A: Spine Lumbar [id number] / / [id number] 25mm Screw Implanted:Qty: 4 on 05/02/2011 at [facility] N/A: Spine Lumbar [id number] / / [id number] Imp Washer Syn [place] 13.5x5.5mm Implanted:Qty: 2 on 05/02/2011 at [facility] N/A: Spine Lumbar 219.951 / / 0106 [id number] Imp Scr Syn Canc 6.6w008pr Ft Ti Implanted:Qty: 2 on 05/02/2011 at [facility] N/A: Spine Lumbar 418.025 / / 0106 [id number] Spf-Plus 60/M Implantable Spinal Fusion Stimulator Implanted:Qty: 1 on 03/02/2014 by Brock Sawyer MD at [facility] N/A: Back [employer] 07/03/2015 10-1398M / [id number] / Graft Bone Foam Pack Vitoss 10ml Bio Active [id number] Implanted:Qty: 1 on 03/02/2014 by Brock Sawyer MD at [facility] N/A: Back ORTHOVITA 09/10/2015 [id number] / / [id number] Imp Scr Medt 5.5/6.0mm Solera 6.5x45mm Ma [id number] Implanted:Qty: 4 on 03/02/2014 by Brock Sawyer MD at [facility] N/A: Back [employer] [id number] / / [id number] 2014 Imp Scr Medt 5.5/6.0mm Solera 8.5x70mm Ma [id number] Implanted:Qty: 2 on 03/02/2014 by Brock Sawyer MD at [facility] N/A: Back [employer] [id number] / / [id number] 01 MAR 2014 Imp Scr Set Medt Solera Break Off 5.5mm Ti [id number] Implanted:Qty: 6 on 03/02/2014 by Brock Sawyer MD at [facility] N/A: Back [employer] [id number] / / [id number] 01 MAR 2014 Imp Beltran Medt Solera Cvd 5.9r024ua Ti [id number] Implanted:Qty: 2 on 03/02/2014 by Brock Sawyer MD at [facility] N/A: Back [employer] [id number] / / [id number] 02 MAR 2014 Imp Scr Syn Can 4.0x20mm Ft Ss 206.020 Implanted:Qty: 2 on 03/02/2014 by Brock Sawyer MD at [facility] N/A: Back SYNTHES-STRATEC 206.020 / / Impulse Implanted:Qty: 1 on 03/02/2014 by Brock Sawyer MD at [facility] Explanted Type Area Automotive Services Manager Device Identifier Shelf Expiration Date Model / Serial / Lot Imp Scr Danek Sext Can 6.5x40mm Legacy Ti Implanted:Qty: 2 on 05/02/2011 at [facility] Explanted:Qty: 2 on 03/02/2014 at [facility] N/A: Spine Lumbar [id number] / / [id number] 01MAY2011 Imp Scr Danek Set G4 Internal Hex [id number] Implanted:Qty: 4 on 05/02/2011 at [facility] Explanted:Qty: 4 on 03/02/2014 at [facility] N/A: Spine Lumbar [id number] / / [id number] 01MAY2011 Imp Beltran Danek Sext 60mm Ti [id number] Implanted:Qty: 2 on 05/02/2011 at [facility] Explanted:Qty: 2 on 03/02/2014 at [facility] N/A: Spine Lumbar [id number] / / [id number] 01MAY2011 Imp Scr Danek Sext Can 6.5x45mm Legacy Ti Implanted:Qty: 2 on 05/02/2011 at [facility] Explanted:Qty: 2 on 03/02/2014 at [facility] N/A: Spine Lumbar [id number] / / [id number] 01MAY2011 Description:BILATERAL SCREWS FROM S1, SCREW HEAD REMOVED, SCREW SHAFT REMAINS Procedures Procedure Name Priority Date/Time Associated Diagnosis Comments COMPREHENSIVE METABOLIC PANEL STAT 11/27/2014 4:05 PM CDT from Last 3 Months or Most Recently Relevant to Health Maintenance Results * (ABNORMAL) Comprehensive metabolic panel (11/27/2014 4:05 PM CDT) Sodium 139 133 - 144 mmol/L [facility] Potassium 4.0 3.4 - 5.3 mmol/L [facility] Chloride 105 94 - 109 mmol/L [facility] Carbon Dioxide 27 20 - 32 mmol/L [facility] Anion Gap 7 3 - 14 mmol/L [facility] Glucose 158(H) 70 - 99 mg/dL [facility] Urea Nitrogen 13 7 - 30 mg/dL [facility] Creatinine 0.76 0.52 - 1.04 mg/dL [facility] GFR Estimate 79 >60 mL/min/1. 7m2 [facility] Comment:Non GFR Calc GFR Estimate If Black >90 GFR Calc >60 mL/min/1. 7m2 [facility] Calcium 8.8 8.5 - 10.1 mg/dL [facility] Bilirubin Total 0.2 0.2 - 1.3 mg/dL [facility] Albumin 4.1 3.4 - 5.0 g/dL [facility] Protein Total 7.4 6.8 - 8.8 g/dL [facility] Alkaline Phosphatase 135 40 - 150 U/L [facility] ALT 55(H) 0 - 50 U/L [facility] AST 30 0 - 45 U/L [facility] Blood specimen (specimen) 11/27/2014 4:05 PM CDT 11/27/2014 4:14 PM CDT Ian Monsivais MD LAB - BLOOD ORDERABL ES [facility] [address] [address], [facility] [phone] from Last 3 Months or Most Recently Relevant to Health Maintenance Advance Directives For more information, please contact: [phone] * Full Code (Latest Code Status on File) Date Activated Date Inactivated Comments 05/02/2011 8:26 PM 05/06/2011 2:41 PM * Full Code Date Activated Date Inactivated Comments 05/02/2011 2:17 PM 05/02/2011 8:26 PM Care Teams Web Page Developer Relationship Specialty Start Date End Date Tommy Mcelroy MD PCP - General Family Practice 04/16/11
--- OUTSIDE RECORDS SUMMARY | 2023-11-30 17:38 | XMS_ITS | Continuity of Care Document ---
Author Organization [facility] Address [address] [place] [address] Phone Care Team Providers Care Tree Surgeon Helper Name Role Phone Ronald Herrera MD [...] Date Provider Providers Copied on Encounter [facility], [address], [place], [place], [id number], [place] tel:[phone] [facility] No Information 4 Sharon Cardenas. [address], [place], [place], [address], [place]. tel:[phone] Referring Provider: Tommy Mcelroy MD C, [address], [place], [address]. tel:[phone] [facility], [address], [place], [place], [address], [place] tel:[phone] [facility] No Information 4 RN RN. [address], [address], [place], [place], [id number], [place]. tel:[phone] Referring Provider: Tommy Rand, [address], [place], [address]. tel:[phone] Est Pt Eval 15 Min [facility], [address], [place], [place], [id number], [place] tel:[phone] [facility] No Information 4 No Information Referring Provider: Tommy Rand, [address], [place], [address]. tel:[phone] Offic/outpt E&m Estab Mod-hi 4 [facility], [address], [place], [place], [address], [place] tel:[phone] [facility] No Information 4 No Information Referring Provider: Tommy Rand, [address], [place], [address]. tel:[phone] Offic/outpt E&m Estab Low-mod [facility], [facility], [address], [place], [place], [id number], [place] tel:[phone] [facility] No Information 4 No Information Referring Provider: Tommy Rand, [address], [place], [address]. tel:[phone] Offic/outpt E&m Estab Low-mod [facility], [address], [place], [place], [address], [place] tel:[phone] [facility] No Information 4 No Information Referring Provider: Tommy Rand, [address], [place], [address]. tel:[phone] [facility], [address], [place], [place], [id number], [place] tel:[phone] [facility] No Information 4 No Information Referring Provider: Tommy Rand, [address], [place], [address]. tel:[phone] [facility], [address], [place], [place], [address], [place] tel:[phone] [facility] [address] No Information 0 4 Tremayne Medinaagustin Ruiz. [address], [address], [place], [place], [address], [place]. tel:[phone] Referring Provider: Tommy Rand, [address], [place], [address]. tel:[phone] Psychiatric Diagnostic Evaluation [facility], [facility], [address], [place], [place], [address], [place] tel:[phone] [facility] [address] No Information 4 Femi Cristina. [address], [address], [place], [place], [address], [place]. tel:[phone] Referring Provider: Tommy Rand, [address], [place], [address]. tel:[phone] Offic/outpt E&m Estab Low-mod [facility], [facility], [address], [place], [place], [address], [place] tel:[phone] [facility] No Information 4 No Information Referring Provider: Tommy Rand, [address], [place], [address]. tel:[phone] Offic/outpt E&m Estab Mod-hi 2 [facility], [facility], [address], [place], [place], [id number], [place] tel:[phone] [facility] No Information 4 No Information Referring Provider: Tommy Rand, [address], [place], [address]. tel:[phone] [facility], [address], [place], [place], [address], [place] tel:[phone] [facility] No Information 4 Sharon Cardenas. [address], [place], [place], [address], [place]. tel:[phone] Referring Provider: Tommy Rand, [address], [place], [address]. tel:[phone] Offic Cons New/estab Mod-hi 60 [facility], [address], [place], [place], [address], tel:[phone] [facility] No Information 4 No Information Referring Provider: Tommy Rand, [address], [place], [address]. tel:[phone] Family History Family Member Type Diagnosis Age At Onset N/A Problem (finding) No Significant Family H istory Payers Payer name Insurance type Covered alliance party ID Authoriza tiflaco(s) [facility]-Medicaid [id number] Social History Type Description Quantity Date Captured Comments Sex Female Smoking Status No Information Chief Complaint And Reason For Visit No Information Reason For Referral Reason For Referral No Information Plan Of Treatment Date Type Action Status Future Order: Lab Order COMPLIAN CE DRUG ANALYSIS,URINE,WITH MED REPORT ([id number]), Appointment on: , Collected on: , Sent [...]
--- OUTSIDE RECORDS SUMMARY | 2023-11-30 17:38 | XMS_ITS | Clinical Summary ---
Author Organization [facility] Address [address] [place] [address] Care Team Providers Care Metal Off Bearer Name Role Phone Tommy Mcelroy MD Primary Care Provider [phone] Source Comments You are receiving this document as you are listed as the primary care provider,follow-up provider, or the patient has been referred to you for consultation.This is in compliance with the Medicare and[facility] EHR Incentive Program,which states Providers who transition their patient to another setting of careor provider of care or refers their patient to another provider of care shouldprovide summary care record for each transition of care or referral. [facility] Allergies Active Allergy Reactions Criticality Noted Date Comments Antihistamines, Diphenhydramine-Type 06/16/2009 I have restless leg syndrome Phenothiazines Other, see comments 06/16/2009 Medications Medication Sig Dispensed Refills Start Date End Date Status Pramipexole Dihydrochloride (MIRAPEX OR) None Entered Active LORazepam (ATIVAN OR) Act nathaniel Active Problems Problem Noted Date Diagnosed Date Right foot pain 05/13/2022 Overview (05/13/2022): Added automatically from request for surgery [id number] Social History Tobacco Use Types Packs/Day Years [...] 1978 Cholesterol 11/21/2007 COVID-19 Vaccine ( season) 2023 07/30/2021, 12/02/2020, 06/02/2020, Additional history exists Influenza (#1) 2023 11/17/2020, 11/10, 02/20/2018, Additional history exists DTaP/Tdap/Td (3 - Tdap) 11/25/2029 11/26/19, 03/20/2010, 05/15/2000 RSV (1 - 1-dose 75+ series) 2037 Pneumococcal Aged Out 06/30/2012 No longer eligi [...] patient's age to complete this topic RSV Aged Out No longer eligi ble based on patient's age to complete this topic MCV4 Aged Out No longer eligi ble based on patient's age to complete this topic Care Teams Metal Off Bearer Relationship Specialty Start Date End Date Tommy Mcelroy MD [facility] [address] [place] [address] PCP - General Family Practice 05/07/22
--- OUTSIDE RECORDS SUMMARY | 2023-11-30 17:38 | XMS_ITS | Continuity of Care Document ---
Author Organization [facility] tommie Address [address] [place] [address] Phone Care Team Providers Care Assembler [place] Name Role Phone Kiara Álvarez CNP Unavailable Unavail able Allergies, Adverse Reactions, Alerts Substance Reaction Status Criticality diphenhydramine Active No Informati on PROCHLORPERAZINE MALEATE Active No Information PROCHLORPERAZINE EDISYLATE Active N o Information Medications Medication Instructions Dosage Effective Dates (start - stop) Status Comments lidocaine 5 % topical patch apply 1 - 3 patches to low back every day for up to 12 hours per 24 hours. - Active oxycodone 10 mg tablet take 1 tablet by ORAL route every 4 - 6 hours prn chronic pain, max 3/day, alternate with 15mg tablets, 30 day script - Active may fill today, to start 10/20 oxycodone 15 mg tablet take 1 tablet by oral route every 4-6 hours prn chronic pain, max 2/day, 30 day script - Active may fill today, to start 10/20 OxyContin 20 mg tablet,crush resistant,extende d release take 1 tablet by oral route every 8 hours for chronic pain, 30 day script - Active may fill today, to start 11/30/23 Narcan 4 mg/actuation nasal spray spray 0.1 milliliter by intranasal route in 1 nostril may repeat dose every 2-3 minutes as needed alternating nostrils with each dose as needed 4 MG - Active OZEMPIC (unknown strength) inject by subcutaneous route every week on the same day of each week Not Available - Active Wellbutrin XL 150 mg 24 hr tablet, extended release take 1 tablet by oral route every day 150 MG - Active Cymbalta 60 mg capsule,delayed release take 1 capsule by oral route every day 60 MG - Active simvastatin 20 mg tablet take 1 tablet by oral route every day in the evening 20 MG - Active Topamax 100 mg tablet take 2 tablet by oral route every day 200 MG - Active Ativan 1 mg tablet take 1 tablet by oral route every day as needed, up to 3/day - Active Lamictal 200 mg tablet take [...] route every day 1 MG - Active Procedures Procedure Date OFFICE VISIT, EST TELEMEDICINE OFFICE/OUTPATIENT VISIT, EST Drug Urine Toxology With Chromatography Drug test def 15- classes OFFICE VISIT, EST TELEMEDICINE OFFICE/OUTPATIENT VISIT, EST Drug Urine Toxology With Chromatography OFFICE VISIT, EST TELEMEDICINE RF genicular nerve With Imaging OFFICE VISIT, EST TELEMEDICINE Inj anes agt/steroid; gen ne br,w/cynthia hale Bilat Facet Jt Inj Or MBB Lumbar RIGHT 2023 OFFICE/OUTPATIENT VISIT, EST Drug Urine Toxology With Chromatography Drug test def 15-21 classes OFFICE VISIT, EST TELEMEDICINE OFFICE VISIT, EST TELEMEDICINE Drug Urine Toxology With Chromatography Drug test def 15-21 classes OFFICE/OUTPATIENT VISIT, EST OFFICE VISIT, EST TELEMEDICINE OFFICE VISIT, EST TELEMEDICINE BILATERAL MAJOR JOINT/BURSA DRAIN/INJ WI TH ULTRASO PT EVAL MOD COMPLEX 30 MIN THERAPEUTIC EXERCISES Drug test def 8-14 classes Drug Urine Toxology With Chromatography OFFICE/OUTPATIENT VISIT, EST OFFICE VISIT, EST TELEMEDICINE OFFICE VISIT, EST [...] EST TELEMEDICINE OFFICE VISIT, EST TELEMEDICINE Drug test def 8-14 classes Drug Urine Toxology With Chromatography Foll-up eval [...] Diagnoses Date Provider Providers Copied on Encounter [facility], [address] [place] [address], [id number] , tel:[phone] [facility] [place] No Information 4 Jonah Craig. [address], [place], [id number], [place]. tel:[phone] OFFICE VISIT, [facility], [address] [place] [address], [id number] , tel:[phone] [facility] Back Pain (chief complaint) Chronic pain syndromeOther intervertebral disc degeneration, lumbar region, NOSPostlaminec gumaro syndrome, not elsewhere classifiedPain in right kneePain in left kneeDrug induced constipationLo ng term (current) use of opiate analgesicBody mass index [BMI] 27.0-27.9, adult 4 Jonah Craig. [address], [place], [id number], [place]. tel:[phone] Consulting Provider: Lucas Talamantes, [facility] [address], [address], [place], [address]. tel:[phone] OFFICE/OUTPAT IENT VISIT, EST [facility], [address] [place] [address], [id number] , [phone] [facility] Back Pain (chief complaint) Chronic pain syndromeOther intervertebral disc degeneration, lumbar regionPostlami nectomy syndrome, not elsewhere classifiedPain in right kneePain in left kneeDrug induced constipationLo ng term (current) use of opiate analgesicEncou nter for therapeutic drug level monitoringBody mass index [BMI] 27.0-27.9, adult Oct- 4 Jonah Craig. [address] [place] [address], [id number], [place]. tel:[phone] Consulting Provider: Lucas Talamantes, [facility] [address], [address] [address], [place], [address]. tel:[phone] ring Provider: Emir Espinal, [address] [place] [address], [id number]. tel:[phone] [facility], [address] [place] [address], [id number] , tel:[phone] [facility] ([facility]) Chronic pain syndromeOther intervertebral disc degeneration, lumbar regionPostlami nectomy syndrome, not elsewhere classifiedPain in right kneePain in left kneeDrug induced constipationLo ng term (current) use of opiate analgesic 4 Jonah Craig. [address] [place] [address], [id number], [place]. tel:[phone] Consulting Provider: Lucas Talamantes [facility] [address], [address] [facility], [place], [address]. tel:[phone] OFFICE VISIT, EST TELEMEDICINE [facility], [address] [place] [address], [id number] , [place] [phone] [facility] Back pain (chief complaint) Chronic pain syndromeOther intervertebral disc degeneration, lumbar regionPostlami nectomy syndrome, not elsewhere classifiedPain in right kneePain in left kneeDrug induced constipationLo ng term (current) use of opiate analgesic 4 Jonah Pastorberoberto carlos Craig. [address] [place] [address], [id number], [place]. tel:[phone] Consulting Provider: Lucas Talamantes, [facility] [address], [address], [place], [address]. tel:[phone] ring Provider: Emir Espinal, [address] [place] [address], [id number]. tel:[phone] OFFICE/OUTPAT IENT VISIT, [facility], [address] [place] [address], [id number] , [place] tel:[phone] [facility] Back Pain (chief complaint) Chronic pain syndromeOther intervertebral disc degeneration, lumbar regionPostlami nectomy syndrome, not elsewhere classifiedPain in right kneePain in left kneeDrug induced constipationLo ng term (current) use of opiate analgesicEncou nter for therapeutic drug level monitoringCerv icalgia 4 Jonah Craig. [address], [place], [id number], [place]. tel:[phone] Consulting Provider: Lucas Talamantes, [facility] [address], [address], [place], [address]. tel:[phone] ring Provider: Emir Espinal, [address] [place] [address], [id number]. tel:[phone] OFFICE VISIT, EST TELEMEDICINE [facility], [address] [place] [address], [id number] , [place] tel:[phone] [facility] Back pain (chief complaint) Postlaminectom y syndrome, not elsewhere classifiedOthe r intervertebral disc degeneration, lumbar regionPain in right kneePain in left kneeDrug induced constipationLo ng term (current) use of opiate analgesicChron ic pain syndrome 4 Jonah Craig. [address] [place] [address], [id number], [place]. tel:[phone] Consulting Provider: Lucas Talamantes, [facility] [address], [address], [place], [address]. tel:[phone] [facility], [address] [place] [address], [id number] , [place] tel:[phone] [facility] Pain in right kneePain in left knee June-0 4 Braeden Murcia. [address] [place] [address], [id number], [place]. tel:[phone] Referring Provider: Kiara Álvarez, [address] [place] [address], [id number]. tel:[phone] OFFICE VISIT, EST TELEMEDICINE [facility], [address] [place] [address], [id number] , [place] tel:[phone] [facility] [place] Back Pain (chief complaint) Chronic pain syndromePostla minectomy syndrome, not elsewhere classifiedOthe r intervertebral disc degeneration, lumbar regionPain in right kneePain in left kneeDrug induced constipationLo ng term (current) use of opiate analgesic Apr-2 4 Jonah Craig. [address] [place] [address], [id number], [place]. tel:[phone] Consulting Provider: Lucas Talamantes, [facility] [address], [address], [place], [address]. tel:[phone] ring Provider: Emir Espinal, [address] [place] [address], [id number]. tel:[phone] [facility], [address] [place] [address], [id number] , [place] tel:[phone] [facility] [place] Pain in left kneePain in right knee May- 4 Jonah Craig. [address] [place] [address], [id number], [place]. tel:[phone] [facility], [address] [place] [address], [id number] , [place] tel:[phone] [facility] Pain in right kneePain in left knee 4 Braeden Murcia. [address] [place] [address], [id number], [place]. tel:[phone] Referring Provider: Kiara Álvarez, [address] [place] [address], [id number]. tel:[phone] [facility], [address] [place] [address], [id number] , [place] tel:[phone] [facility] [place] Pain in left kneePain in right knee May-0 4 Mihir Field. [address] [place] [address], [id number], [place]. tel:[phone] [facility], [address] [place] [address], [id number] , [place] [phone] [facility] Low back painOther chronic painArthrodesi s status 4 Braeden Murcia. [address] [place] [address], [id number], [place]. tel:[phone] Referring Provider: Kiara Álvarez, [address] [place] [address], [id number]. tel:[phone] OFFICE/OUTPAT IENT VISIT, EST [facility], [address] [place] [address], [id number] , [place] tel:[phone] [facility] Back Pain (chief complaint) Postlaminectom y syndrome, not elsewhere classifiedOthe r intervertebral disc degeneration, lumbar regionPain in right kneePain in left kneeDrug induced constipationLo ng term (current) use of opiate analgesicChron ic pain syndromeEncoun ter for therapeutic drug level monitoring 4 Emeka Tasha. [address] [place] [address], [id number], [place]. tel:[phone] Referring Provider: Emir Espinal, [address] [place] [address], [id number]. tel:[phone] OFFICE VISIT, EST TELEMEDICINE [facility], [address] [place] [address], [id number] , [place] tel:[phone] [facility] [place] Back Pain (chief complaint) Postlaminectom y syndrome, not elsewhere classifiedOthe r intervertebral disc degeneration, lumbar regionPain in right kneePain in left kneeDrug induced constipationLo ng term (current) use of opiate analgesic 4 Van Overbeke Kiara. [address] [place] [address], [id number], [place]. tel:[phone] Consulting Provider: Lucas Talamantes [facility] [address], [address], [place], [address]. tel:[phone] OFFICE VISIT, EST TELEMEDICINE [facility], [address] [place] [address], [id number] , [place] tel:[phone] [facility] Back Pain (chief complaint) Postlaminectom y syndrome, not elsewhere classifiedOthe r intervertebral disc degeneration, lumbar regionPain in right kneePain in left kneeDrug induced constipationLo ng term (current) use of opiate analgesic 4 Jonah Overbeke Kiara. [address] [place] [address], [id number], [place]. tel:[phone] Consulting Provider: Lucas Talamantes [facility] [address], [address], [place], [address]. tel:[phone] ring Provider: Emir Espinal, [address] [place] [address], [id number]. tel:[phone] [facility], [address] [place] [address], [id number] , [place] tel:[phone] [facility] [place] No Information 3 Jonah Overberoberto carlos Craig. [address] [place] [address], [id number], [place]. tel:[phone] Referring Provider: Emir Espinal, [address] [place] [address], [id number]. tel:[phone] OFFICE/OUTPAT IENT VISIT, EST [facility], [address] [place] [address], [id number] , [place] tel:[phone] [facility] Back Pain (chief complaint) Postlaminectom y syndrome, not elsewhere classifiedOthe r intervertebral disc degeneration, lumbar regionPain in right kneePain in left kneeDrug induced constipationLo ng term (current) use of opiate analgesicEncou nter for therapeutic drug level monitoring 3 [address] Over[place] Kiara. [address], [place], [id number], [place]. tel:[phone] Consulting Provider: Lucas Talamantes [facility] [address], [address], [place], [address]. tel:[phone] ring Provider: Emir Espinal, [address] [place] [address], [id number]. tel:[phone] OFFICE VISIT, EST TELEMEDICINE [facility], [address] [place] [address], [id number] , [place] tel:[phone] [facility] Back Pain (chief complaint) Postlaminectom y syndrome, not elsewhere classifiedOthe r intervertebral disc degeneration, lumbar regionPain in right kneePain in left kneeDrug induced constipationLo ng term (current) use of opiate analgesic 3 Van [place] Kiara. [address], [place], [id number], [place]. tel:[phone] Consulting Provider: Lucas Talamantes [facility] [address], [address], [place], [address]. tel:[phone] OFFICE VISIT, EST TELEMEDICINE [facility], [address] [place] [address], [id number] , [place] tel:[phone] [facility] Back Pain (chief complaint) Postlaminectom y syndrome, not elsewhere classifiedOthe r intervertebral disc degeneration, lumbar regionPain in right kneePain in left kneeDrug induced constipationLo ng term (current) use of opiate analgesic 3 [address] [place] Kiara. [address], [place], [id number], [place]. tel:[phone] Consulting Provider: Lucas Talamantes [facility] [address], [address], [place], [address]. tel:[phone] ring Provider: Emir Espinal, [address] [place] [address], [id number]. tel:[phone] [facility], [address] [place] [address], [id number] , [place] tel:[phone] [facility] Pain in right kneePain in left knee 3 Braeden Murcia. [address] [place] [address], [id number], [place]. tel:[phone] Referring Provider: Emir Espinal, [address] [place] [address], [id number]. tel:[phone] [facility], [address] [place] [address], [id number] , [place] tel:[phone] [facility] lumbago/kn ees (chief complaint) Postlaminectom y syndrome, not elsewhere classifiedOthe r intervertebral disc degeneration, lumbar region 3 Melinda Zavala. [address] [place] [address], [id number], [place]. tel:[phone] Referring Provider: Emir Espinal, [address] [place] [address], [id number]. tel:[phone] [facility], [address] [place] [address], [id number] , [place] tel:[phone] [facility] [place] No Information Oct- 3 Jonah Craig. [address] [place] [address], [id number], [place]. tel:[phone] OFFICE/OUTPAT IENT VISIT, EST [facility], [address] [place] [address], [id number] , [place] tel:[phone] [facility] [place] Back Pain (chief complaint) Postlaminectom y syndrome, not elsewhere classifiedOthe r intervertebral disc degeneration, lumbar regionPain in right kneePain in left kneeDrug induced constipationLo ng term (current) use of opiate analgesicEncou nter for therapeutic drug level monitoring Sep- 3 [address] Overbe[address] Kiara. [address], [place], [id number], [place]. tel:[phone] Consulting Provider: Lucas Talamantes, [facility] [address], [address], [place], [address]. tel:[phone] Provider: Emir Espinal, [address] [place] [address], [id number]. tel:[phone] OFFICE VISIT, EST TELEMEDICINE [facility], [address] [place] [address], [id number] , [place] tel:[phone] [facility] Back Pain (chief complaint) Postlaminectom y syndrome, not elsewhere classifiedOthe r intervertebral disc degeneration, lumbar regionPain in right kneePain in left kneeDrug induced constipationLo ng term (current) use of opiate analgesic 3 Jonah Overberoberto carlos Kiara. [address] [place] [address], [id number], [place]. tel:[phone] Consulting Provider: Lucas Talamantes, [facility] [address], [address], [place], [address]. tel:[phone] [facility] Provider: Emir Espinal, [address] [place] [address], [id number]. tel:[phone] OFFICE VISIT, EST TELEMEDICINE [facility], [address] [place] [address], [id number] , [place] tel:[phone] [facility] Back Pain (chief complaint) Postlaminectom y syndrome, not elsewhere classifiedOthe r intervertebral disc degeneration, lumbar regionSacroili itis, not elsewhere classifiedPain in right kneePain in left kneeOther muscle spasmChronic migraine without aura, intractable, without status migrainosusMaj or depressive disorder, single episode, unspecifiedDru g induced constipationLo ng term (current) use of opiate analgesic 3 [address] Kiara. [address] [place] [address], [id number], [place]. tel:[phone] Consulting Provider: Lucas Talamantes [facility] [address], [address], [place], [address]. tel:[phone] ring Provider: Emir Espinal, [address] [place] [address], [id number]. tel:[phone] [facility], [address] [place] [address], [id number] , [place] [phone] [facility] [place] No Information 3 Jonah Craig. [address] [place] [address], [id number], [place]. tel:[phone] Referring Provider: Emir Espinal, [address] [place] [address], [id number]. tel:[phone] OFFICE/OUTPAT IENT VISIT, EST [facility], [address] [place] [address], [id number] , [place] [phone] [facility] Back Pain (chief complaint) Major depressive disorder, single episode, unspecifiedChr onic migraine without aura, intractable, without status migrainosusDru g induced constipationPa in in right kneePain in left kneeSacroiliit is, not elsewhere classifiedOthe r intervertebral disc degeneration, lumbar regionOther muscle spasmPostlamin ectomy syndrome, not elsewhere classifiedLong term (current) use of opiate analgesicEncou nter for therapeutic drug level monitoring 3 Jonah Craig. [address] [place] [address], [id number], [place]. tel:[phone] Consulting Provider: Lucas Talamantes, [facility] [address], [address] [address], [place], [address]. tel:[phone] ring Provider: Emir Espinal, [address] [place] [address], [id number]. tel:[phone] [facility], [address] [place] [address], [id number] , [place] tel:[phone] [facility] Pain in right kneePain in left knee 3 Braeden Murcia. [address] [place] [address], [id number], [place]. tel:[phone] Referring Provider: Emir Espinal, [address] [place] [address], [id number]. tel:[phone] OFFICE VISIT, [facility] TELEMEDICINE [facility], [address] [place] [address], [id number] , tel:[phone] [facility] Back pain (chief complaint) Major depressive disorder, single episode, unspecifiedChr onic migraine without aura, intractable, without status migrainosusSac roiliitis, not elsewhere classifiedOthe r intervertebral disc degeneration, lumbar regionOther muscle spasmPostlamin ectomy syndrome, not elsewhere classifiedLong term (current) use of opiate analgesicPain in right kneePain in left kneeDrug induced constipation 3 Jonah Overbeke Kiara. [address] [place] [address], [id number], [place]. tel:[phone] Consulting Provider: Lucas Talamantes, [facility] [address], [address], [place], [address]. tel:[phone] ring Provider: Emir Espinal, [address] [place] [address], [id number]. tel:[phone] OFFICE VISIT, [facility] TELEMEDICINE [facility], [address] [place] [address], [id number] , [place] tel:[phone] [facility] Back Pain (chief complaint) Major depressive disorder, single episode, unspecifiedChr onic migraine without aura, intractable, without status migrainosusSac roiliitis, not elsewhere classifiedOthe r intervertebral disc degeneration, lumbar regionOther muscle spasmPostlamin ectomy syndrome, not elsewhere classifiedLong term (current) use of opiate analgesic May- 3 Van Overbeke Kiara. [address] [place] [address], [id number], [place]. tel:[phone] Consulting Provider: Lucas Talamantes, [facility] [address], [address], [place], [address]. tel:[phone] OFFICE/OUTPAT IENT VISIT, [facility], [address] [place] [address], [id number] , [place] tel:[phone] [facility] back pain (chief complaint) Major depressive disorder, single episode, unspecifiedChr onic migraine without aura, intractable, without status migrainosusSac roiliitis, not elsewhere classifiedOthe r intervertebral disc degeneration, lumbar regionOther muscle spasmPostlamin ectomy syndrome, not elsewhere classifiedLong term (current) use of opiate analgesicEncou nter for therapeutic drug level monitoring 3 Jonah Craig. [address] [place] [address], [id number], [place]. tel:[phone] Consulting Provider: Lucas Talamantes, [facility] [address], [address], [place], [address]. tel:[phone] ring Provider: Emir Espinal, [address] [place] [address], [id number]. tel:[phone] [facility], [address] [place] [address], [id number] , [place] [phone] [facility] No Information 3 Jonah Craig. [address] [place] [address], [id number], [place]. tel:[phone] OFFICE VISIT, EST TELEMEDICINE [facility], [address] [place] [address], [id number] , [place] tel:[phone] [facility] Back Pain (chief complaint) Major depressive disorder, single episode, unspecifiedChr onic migraine without aura, intractable, without status migrainosusSac roiliitis, not elsewhere classifiedOthe r intervertebral disc degeneration, lumbar regionPostlami nectomy syndrome, not elsewhere classifiedLong term (current) use of opiate analgesicOther muscle spasm 3 Jonah Pastorbeke Kiara. [address] [place] [address], [id number], [place]. tel:[phone] Consulting Provider: Lucas Talamantes, [facility] [address], [address], [place], [address]. tel:[phone] OFFICE VISIT, EST TELEMEDICINE [facility], [address] [place] [address], [id number] , [place] tel:[phone] [facility] Back Pain (chief complaint) Other intervertebral disc degeneration, lumbar regionSacroili itis, not elsewhere classifiedChro tommie migraine without aura, intractable, without status migrainosusMaj or depressive disorder, single episode, unspecifiedOth er muscle spasmPostlamin ectomy syndrome, not elsewhere classifiedLong term (current) use of opiate analgesic 3 Van Overbeke Kiara. [address] [place] [address], [id number], [place]. tel:[phone] Consulting Provider: Lucas Talamantes, [facility] [address], [address], [place], [address]. tel:[phone] OFFICE/OUTPAT IENT VISIT, EST [facility], [address] [place] [address], [id number] , tel:[phone] [facility] Back pain (chief complaint) Major depressive disorder, single episode, unspecifiedChr onic migraine without aura, intractable, without status migrainosusSac roiliitis, not elsewhere classifiedOthe r intervertebral disc degeneration, lumbar regionOther muscle spasmPostlamin ectomy syndrome, not elsewhere classifiedLong term (current) use of opiate analgesicEncou nter for therapeutic drug level monitoring 2 Jonah Pastorbeke Kiara. [address] [place] [address], [id number], [place]. tel:[phone] Consulting Provider: Lucas Talamantes, [facility] [address], [address], [place], [address]. tel:[phone] ring Provider: Emir Espinal, [address] [place] [address], [id number]. tel:[phone] [facility], [address] [place] [address], [id number] , [place] tel:[phone] [facility] [place] No Information 2 Jonah Overberoberto carlos Kiara. [address] [place] [address], [id number], [place]. tel:[phone] Referring Provider: mEir Espinal, [address] [place] [address], [id number]. tel:[phone] OFFICE VISIT, [facility] TELEMEDICINE [facility], [address] [place] [address], [id number] , [place] tel:[phone] [facility] [place] Back pain (chief complaint) Major depressive disorder, single episode, unspecifiedChr onic migraine without aura, intractable, without status migrainosusSac roiliitis, not elsewhere classifiedOthe r intervertebral disc degeneration, lumbar regionOther muscle spasmPostlamin ectomy syndrome, not elsewhere classifiedLong term (current) use of opiate analgesic Dec- 0 2 Van Overbeke Kiara. [address] [place] [address], [id number], [place]. tel:[phone] Consulting Provider: Lucas Talamantes, [facility], [address] [facility], [place], [address]. tel:[phone] ring Provider: Emir Espinal, [address] [place] [address], [id number]. tel:[phone] OFFICE VISIT, [facility] TELEMEDICINE [facility], [address] [place] [address], [id number] , [place] tel:[phone] [facility] [place] Back pain (chief complaint) Major depressive disorder, single episode, unspecifiedChr onic migraine without aura, intractable, without status migrainosusSac roiliitis, not elsewhere classifiedOthe r intervertebral disc degeneration, lumbar regionPostlami nectomy syndrome, not elsewhere classifiedLong term (current) use of opiate analgesicOther muscle spasm Nov- 2 Van Overbeke Kiara. [address] [place] [address], [id number], [place]. tel:[phone] Consulting Provider: Lucas Talamantes, [facility] [address], [address] [facility], [place], [address]. tel:[phone] OFFICE/OUTPAT IENT VISIT, [facility], [address] [place] [address], [id number] , [place] tel:[phone] [facility] [place] Back pain (chief complaint) Major depressive disorder, single episode, unspecifiedChr onic migraine without aura, intractable, without status migrainosusSac roiliitis, not elsewhere classifiedOthe r intervertebral disc degeneration, lumbar regionPostlami nectomy syndrome, not elsewhere classifiedLong term (current) use of opiate analgesicEncou nter for therapeutic drug level monitoring Sep-2 2 Van Overbeke Kiara. [address] [place] [address], [id number], [place]. tel:[phone] Consulting Provider: Lucas Talamantes, [facility] [address], [address], [place], [address]. tel:[phone] Provider: Emir Espinal, [address] [place] [address], [id number]. tel:[phone] [facility], [address] [place] [address], [id number] , [place] tel:[phone] [facility] No Information Sep-2 2 Jonah Overbeke Kiara. [address] [place] [address], [id number], [place]. tel:[phone] OFFICE VISIT, [facility] TELEMEDICINE [facility], [address] [place] [address], [id number] , [place] tel:[phone] [facility] Back Pain (chief complaint) Major depressive disorder, single episode, unspecifiedChr onic migraine without aura, intractable, without status migrainosusSac roiliitis, not elsewhere classifiedOthe r intervertebral disc degeneration, lumbar regionPostlami nectomy syndrome, not elsewhere classifiedLong term (current) use of opiate analgesic Sep-0 2 Keri Campos. [address], [place], [place], [id number], [place]. tel:[phone] Consulting Provider: Lucas Talamantes, [facility] [address], [address], [place], [address]. tel:[phone] ring Provider: Emir Espinal, [address] [place] [address], [id number]. tel:[phone] OFFICE VISIT, EST TELEMEDICINE [facility], [address], [place], [id number] , [place] [phone] [facility] [place] Back pain (chief complaint) Chronic migraine without aura, intractable, without status migrainosusSac roiliitis, not elsewhere classifiedOthe r intervertebral disc degeneration, lumbar regionPostlami nectomy syndrome, not elsewhere classifiedLong term (current) use of opiate analgesicMajor depressive disorder, single episode, unspecified 2 Van Overbeke Kiara. [address] [place] [address], [id number], [place]. tel:[phone] Consulting Provider: Lucas Talamantes [facility] [address], [address], [place], [address]. tel:[phone] ring Provider: Emir Espinal, [address] [place] [address], [id number]. tel:[phone] OFFICE VISIT, EST TELEMEDICINE [facility], [address] [place] [address], [id number] , [place] [phone] [facility] [place] back pain (chief complaint) Chronic migraine without aura, intractable, without status migrainosusSac roiliitis, not elsewhere classifiedOthe r intervertebral disc degeneration, lumbar regionPostlami nectomy syndrome, not elsewhere classifiedLong term (current) use of opiate analgesic 2 Van Overbeke Kiara. [address] [place] [address], [id number], [place]. tel:[phone] Consulting [facility]: [facility] [address], [address], [place], [address]. tel:[phone] [facility], [address] [place] [address], [id number] , [place] tel:[phone] [facility] [place] No Information 2 Van Overbeke Kiara. [address] [place] [address], [id number], [place]. tel:[phone] Referring Provider: Emir Espinal, [address] [place] [address], [id number]. tel:[phone] OFFICE/OUTPAT IENT VISIT, [facility], [address] [place] [address], [id number] , tel:[phone] [facility] Back Pain (chief complaint) Chronic migraine without aura, intractable, without status migrainosusSac roiliitis, not elsewhere classifiedOthe r intervertebral disc degeneration, lumbar regionPostlami nectomy syndrome, not elsewhere classifiedLong term (current) use of opiate analgesicEncou nter for therapeutic drug level monitoring 2 Jonah Craig. [address] [place] [address], [id number], [place]. tel:[phone] Consulting Provider: Lucas Talamantes, [facility] [address], [address], [place], [address]. tel:[phone] ring Provider: Emir Espinal, [address] [place] [address], [id number]. tel:[phone] OFFICE VISIT, [facility] TELEMEDICINE [facility], [address] [place] [address], [id number] , [place] tel:[phone] [facility] Back Pain (chief complaint) Chronic migraine without aura, intractable, without status migrainosusSac roiliitis, not elsewhere classifiedOthe r intervertebral disc degeneration, lumbar regionPostlami nectomy syndrome, not elsewhere classifiedLong term (current) use of opiate analgesic 2 Jonah Overbeke Kiara. [address] [place] [address], [id number], [place]. tel:[phone] Consulting Provider: [facility] [address], [address], [place], [address]. tel:[phone] OFFICE VISIT, [facility] TELEMEDICINE [facility], [address] [place] [address], [id number] , [place] tel:[phone] [facility] Back Pain (chief complaint) Headache (chief complaint) Chronic migraine without aura, intractable, without status migrainosusSac roiliitis, not elsewhere classifiedOthe r intervertebral disc degeneration, lumbar regionPostlami nectomy syndrome, not elsewhere classifiedLong term (current) use of opiate analgesic Apr-2 2 Van Darbybeke Kiara. [address] [place] [address], [id number], [place]. tel:[phone] Consulting Provider: Lucas Talamantes, [facility] [address], [address], [place], [address]. tel:[phone] [facility], [address] [place] [address], [id number] , [place] [phone] [facility] Chronic migraine without aura, intractable, without status migrainosus Apr-0 2 Neydarrel Morgana. [address] [place] [address], [id number], [place]. tel:[phone] Referring Provider: Emir Espinal, [address] [place] [address], [id number]. tel:[phone] OFFICE VISIT, EST TELEMEDICINE [facility], [address] [place] [address], [id number] , [place] tel:[phone] [facility] Back Pain (chief complaint) Chronic migraine without aura, intractable, without status migrainosusOth er intervertebral disc degeneration, lumbar regionLong term (current) use of opiate analgesicPostl aminectomy syndrome, not elsewhere classifiedSacr oiliitis, not elsewhere classified Mar- 2 Jonah Craig. [address] [place] [address], [id number], [place]. tel:[phone] Consulting Provider: Lucas Talamantes, [facility] [address], [address], [place], [address]. tel:[phone] ring Provider: Emir Espinal, [address] [place] [address], [id number]. tel:[phone] [facility], [address] [place] [address], [id number] , [place] tel:[phone] [facility] [place] No Information Mar- 2 Jonah Craig. [address] [place] [address], [id number], [place]. tel:[phone] OFFICE/OUTPAT IENT VISIT, [facility], [address] [place] [address], [id number] , [place] [phone] [facility] [place] Back Pain (chief complaint) Other intervertebral disc degeneration, lumbar regionLong term (current) use of opiate analgesicPostl aminectomy syndrome, not elsewhere classifiedSacr oiliitis, not elsewhere classifiedEnco unter for therapeutic drug level monitoringEnco unter for screening for other disorderChroni c migraine without aura, intractable, without status migrainosus 2 Jonah Craig. [address] [place] [address], [id number], [place]. tel:[phone] Consulting Provider: Lucas Talamantes, [facility] [address], [address], [place], [address]. tel:[phone] ring Provider: Emir Espinal, [address] [place] [address], [id number]. tel:[phone] OFFICE VISIT, [facility] TELEMEDICINE [facility], [address] [place] [address], [id number] , [place] tel:[phone] [facility] Back Pain (chief complaint) Other intervertebral disc degeneration, lumbar regionLong term (current) use of opiate analgesicPostl aminectomy syndrome, not elsewhere classifiedSacr oiliitis, not elsewhere classified 2 Jonah Craig. [address] [place] [address], [id number], [place]. tel:[phone] Consulting Provider: Lucas Talamantes, [facility] [address], [address], [place], [address]. tel:[phone] OFFICE VISIT, EST TELEMEDICINE [facility], [address] [place] [address], [id number] , [place] tel:[phone] [facility] [place] Back Pain (chief complaint) Other intervertebral disc degeneration, lumbar regionLong term (current) use of opiate analgesicPostl aminectomy syndrome, not elsewhere classifiedSacr oiliitis, not elsewhere classified 1 Jonah Craig. [address] [place], [place], [id number], [place]. tel:[phone] Consulting Provider: Lucas Talamantes, [facility] [address], [address], [place], [address]. tel:[phone] OFFICE VISIT, [facility] TELEMEDICINE [facility], [address] [place] [address], [id number] , [place] tel:[phone] [facility] Back Pain (chief complaint) Other intervertebral disc degeneration, lumbar regionLong term (current) use of opiate analgesicPostl aminectomy syndrome, not elsewhere classifiedSacr oiliitis, not elsewhere classified 1 Jonah Craig. [address] [place] [address], [id number], [place]. tel:[phone] Consulting Provider: Lucas Talamantes [facility] [address], [address], [place], [address]. tel:[phone] ring Provider: Emir Espinal, [address] [place] [address], [id number]. tel:[phone] OFFICE VISIT, [facility], [address] [place] [address], [id number] , [place] tel:[phone] [facility] [place] Back Pain (chief complaint) Other intervertebral disc degeneration, lumbar regionLong term (current) use of opiate analgesicPostl aminectomy syndrome, not elsewhere classifiedSacr oiliitis, not elsewhere classified 1 Jonah Craig. [address] [place] [address], [id number], [place]. tel:[phone] Consulting Provider: Lucas Talamantes [facility] [address], [address], [place], [address]. tel:[phone] OFFICE/OUTPAT IENT VISIT, [facility], [address] [place] [address], [id number] , [place] tel:[phone] [facility] Back Pain (chief complaint) Other intervertebral disc degeneration, lumbar regionLong term (current) use of opiate analgesicPostl aminectomy syndrome, not elsewhere classifiedSacr oiliitis, not elsewhere classifiedEnco unter for therapeutic drug level monitoring Oct- 1 Jonah Craig. [address] [place] [address], [id number], [place]. tel:[phone] Consulting Provider: Lucas Talamantes, [facility] [address] [facility] [address], [place], [address]. tel:[phone] ring Provider: Emir Espinal, [address] [place] [address], [id number]. tel:[phone] [facility], [address] [place] [address], [id number] , [place] tel:[phone] [facility] Encounter for therapeutic drug level monitoringLong term (current) use of opiate analgesic Oct- 1 Jonah Craig. [address] [place] [address], [id number], [place]. tel:[phone] Referring Provider: Emir Espinal, [address] [place] [address], [id number]. tel:[phone] OFFICE VISIT, EST TELEMEDICINE [facility], [address] [place] [address], [id number] , [place] tel:[phone] [facility] Back Pain (chief complaint) terminal clerk (current) use of opiate analgesicPostl aminectomy syndrome, not elsewhere classifiedOthe r intervertebral disc degeneration, lumbar region 1 Ney Quinones. [address] [place] [address], [id number], [place]. tel:[phone] Consulting Provider: Lucas Talamantes, [facility] [place] [address] [facility] [address], [place], [address]. tel:[phone] ring Provider: Emir Espinal, [address] [place] [address], [address]. tel:[phone] OFFICE VISIT, EST TELEMEDICINE [facility], [address] [place] [address], [id number] , [place] tel:[phone] [facility] Back Pain (chief complaint) [facility] (current) use of opiate analgesicPostl aminectomy syndrome, not elsewhere classifiedSacr oiliitis, not elsewhere classifiedOthe r intervertebral disc degeneration, lumbosacral region Aug- 1 Jonah Craig. [address] [place] [address], [id number], [place]. tel:[phone] Consulting Provider: Lucas Talamantes, [address] [facility], [place], [address]. tel:[phone] ring Provider: Emir Espinal, [address] [place] [address], [id number]. tel:[phone] [facility], [address] [place] [address], [id number] , [place] tel:[phone] [facility] Encounter for therapeutic drug level monitoringLong term (current) use of opiate analgesic 1 Jonah Craig. [address] [place] [address], [id number], [place]. tel:[phone] Referring Provider: Emir Espinal, [address] [place] [address], [address]. tel:[phone] OFFICE/OUTPAT IENT VISIT, EST [facility], [address] [place] [address], [id number] , [place] tel:[phone] [facility] Back Pain (chief complaint) [facility] (current) use of opiate analgesicPostl aminectomy syndrome, not elsewhere classifiedSacr oiliitis, not elsewhere classifiedOthe r intervertebral disc degeneration, lumbosacral regionEncounte r for therapeutic drug level monitoring 1 Jonah Pastorberoberto carlos Craig. [address] [place] [address], [id number], [place]. tel:[phone] Consulting Provider: Lucas Talamantes, [address] Merc[address], [address]. tel:[phone] ring Provider: Emir Espinal, [address] [place] [address], [id number]. tel:[phone] OFFICE VISIT, EST TELEMEDICINE [facility], [address] [place] [address], [id number] , [place] [phone] [facility] Back Pain (chief complaint) [facility] (current) use of opiate analgesicPostl aminectomy syndrome, not elsewhere classifiedSacr oiliitis, not elsewhere classifiedOthe r intervertebral disc degeneration, lumbosacral region June- 1 Jonah Craig. [address] [place] [address], [id number], [place]. tel:[phone] Consulting Provider: Lucas Talamantes, [facility] [address] [place] [address], [place], [address]. tel:[phone] Provider: Emir Espinal, [address] [place] [address], [id number]. tel:[phone] OFFICE VISIT, EST TELEMEDICINE [facility], [address] [place] [address], [id number] , [place] tel:[phone] [facility] Back Pain (chief complaint) Postlaminectom y syndrome, not elsewhere classifiedSacr oiliitis, not elsewhere classifiedOthe r intervertebral disc degeneration, lumbosacral regionLong term (current) use of opiate analgesic May- 1 Jonah Craig. [address] [place] [address], [id number], [place]. tel:[phone] Consulting Provider: Lucas Talamantes, [facility] [address] [place] [address], [place], [address]. tel:[phone] ring Provider: Emir Espinal, [address] [place] [address], [id number]. tel:[phone] OFFICE VISIT, EST TELEMEDICINE [facility], [address] [place] [address], [id number] , [place] tel:[phone] [facility] [place] Back Pain (chief complaint) Postlaminectom y syndrome, not elsewhere classifiedSacr oiliitis, not elsewhere classifiedOthe r intervertebral disc degeneration, lumbosacral regionLong term (current) use of opiate analgesic Mar-3 0 1 Jonah Craig. [address] [place] [address], [id number], [place]. tel:[phone] Consulting Provider: Lucas Talamantes, [address] [facility] [address] [facility], [place], [address]. tel:[phone] ring Provider: Emir Espinal, [address] [place] [address], [id number]. tel:[phone] OFFICE VISIT, EST TELEMEDICINE [facility], [address] [place] [address], [id number] , [place] tel:[phone] [facility] Back Pain (chief complaint) Postlaminectom y syndrome, not elsewhere classifiedSacr oiliitis, not elsewhere classifiedOthe r intervertebral disc degeneration, lumbosacral regionLong term (current) use of opiate analgesic Mar- 1 Jonah Craig. [address] [place] [address], [id number], [place]. tel:[phone] Consulting Provider: Lucas Talamantes, [address] [place] [address], [place], [address]. tel:[phone] ring Provider: Emir Espinal, [address] [place] [address], [id number]. tel:[phone] OFFICE VISIT, EST TELEMEDICINE [facility], [address] [place] [address], [id number] , [place] tel:[phone] [facility] Back Pain (chief complaint) terminal clerk (current) use of opiate analgesicPostl aminectomy syndrome, not elsewhere classifiedSacr oiliitis, not elsewhere classifiedOthe r intervertebral disc degeneration, lumbosacral region 1 Jonah Craig. [address] [place] [address], [id number], [place]. tel:[phone] Consulting Provider: Lucas Talamantes, [facility] [address] [place] [place] [address], [place], [address]. tel:[phone] ring Provider: Emir Espinal, [address] [place] [address], [address]. tel:[phone] OFFICE VISIT, EST TELEMEDICINE [facility], [address] [place] [address], [id number] , [place] [phone] [facility] Back Pain (chief complaint) [facility] (current) use of opiate analgesicPostl aminectomy syndrome, not elsewhere classifiedSacr oiliitis, not elsewhere classifiedOthe r intervertebral disc degeneration, lumbosacral region 0 Jonah Craig. [address] [place] [address], [id number], [place]. tel:[phone] Consulting Provider: Lucas Talamantes, [address] Prof Mercado [address] [address], [place], [address]. tel:[phone] ring Provider: Emir Espinal, [address] [place] [address], [address]. tel:[phone] OFFICE VISIT, EST TELEMEDICINE [facility], [address] [place] [address], [id number] , [place] tel:[phone] [facility] Back Pain (chief complaint) terminal clerk (current) use of opiate analgesicPostl aminectomy syndrome, not elsewhere classifiedSacr oiliitis, not elsewhere classifiedOthe r intervertebral disc degeneration, lumbosacral region 0 Van Overbeke Kiara. [address] [place] [address], [id number], [place]. tel:[phone] Referring Provider: Emir Epsinal, [address] [place] [address], [id number]. tel:[phone] OFFICE VISIT, [facility], [address] [place] [address], [id number] , [place] [phone] [facility] Back Pain (chief complaint) [facility] (current) use of opiate analgesicPostl aminectomy syndrome, not elsewhere classifiedSacr oiliitis, not elsewhere classifiedOthe r intervertebral disc degeneration, lumbosacral region 0 Van Overbeke Kiara. [address] [place] [address], [id number], [place]. tel:[phone] Referring Provider: Emir Espinal, [address] [place] [address], [id number]. tel:[phone] OFFICE VISIT, [facility], [address] [place] [address], [id number] , [place] [phone] [facility] Back Pain (chief complaint) terminal clerk (current) use of opiate analgesicPostl aminectomy syndrome, not elsewhere classifiedSacr oiliitis, not elsewhere classifiedOthe r intervertebral disc degeneration, lumbosacral region Oct- 0 Jonah Overbeke Kiara. [address] [place] [address], [id number], [place]. tel:[phone] Referring Provider: Emir Espinal, [address] [place] [address], [id number]. tel:[phone] OFFICE/OUTPAT IENT VISIT, [facility], [address] [place] [address], [id number] , [place] [phone] [facility] Back Pain (chief complaint) terminal clerk (current) use of opiate analgesicPostl aminectomy syndrome, not elsewhere classifiedSacr oiliitis, not elsewhere classifiedOthe r intervertebral disc degeneration, lumbosacral region 0 Van Overbeke Kiara. [address] [place] [address], [id number], [place]. tel:[phone] Referring Provider: Emir Espinal, [address] [place] [address], [id number]. tel:[phone] OFFICE VISIT, EST TELEMEDICINE [facility], [address] [place] [address], [id number] , [place] tel:[phone] [facility] Back Pain (chief complaint) terminal clerk (current) use of opiate analgesicPostl aminectomy syndrome, not elsewhere classifiedSacr oiliitis, not elsewhere classifiedOthe r intervertebral disc degeneration, lumbosacral region 2-202 0 Van Overbeke Kiara. [address] [place] [address], [id number], [place]. tel:[phone] Consulting Provider: Lucas AU, [facility] 675 [facility] 675 [facility] [address], [place], [address]. tel:[phone] ring Provider: Emir Espinal, [address] [place] [address], [id number]. tel:[phone] OFFICE VISIT, EST TELEMEDICINE [facility], [address] [place] [address], [id number] , [place] tel:[phone] [facility] Back Pain (chief complaint) [facility] (current) use of opiate analgesicPostl aminectomy syndrome, not elsewhere classifiedSacr oiliitis, not elsewhere classifiedOthe r intervertebral disc degeneration, lumbosacral region 0 Van Overbeke Kiara. [address] [place] [address], [id number], [place]. tel:[phone] Referring Provider: Emir Espinal, [address] [place] [address], [address]. tel:[phone] OFFICE VISIT, EST TELEMEDICINE [facility], [address] [place] [address], [id number] , [place] tel:[phone] [facility] Back Pain (chief complaint) [facility] (current) use of opiate analgesicPostl aminectomy syndrome, not elsewhere classifiedSacr oiliitis, not elsewhere classifiedOthe r intervertebral disc degeneration, lumbosacral region 0-202 0 Van Overbeke Kiara. [address] [place] [address], [id number], [place]. tel:[phone] Consulting Provider: Lucas AU, [facility] [address] [address], [place], [address]. tel:[phone] ring Provider: Emir Espinal, [address] [place] [address], [id number]. tel:[phone] OFFICE VISIT, [facility], [address] [place] [address], [id number] , [place] tel:[phone] [facility] Back Pain (chief complaint) terminal clerk (current) use of opiate analgesicPostl aminectomy syndrome, not elsewhere classifiedSacr oiliitis, not elsewhere classifiedOthe r intervertebral disc degeneration, lumbosacral region Apr-2 2-202 0 Van Overbeke Kiara. [address] [place] [address], [id number], [place]. tel:[phone] Consulting Provider: Lucas AU, [address] [address], [place], [address]. tel:[phone] ring Provider: Emir Espinal, [address] [place] [address], [id number]. tel:[phone] OFFICE VISIT, [facility], [address] [place] [address], [id number] , [place] tel:[phone] [facility] Back Pain (chief complaint) terminal clerk (current) use of opiate analgesicPostl aminectomy syndrome, not elsewhere classifiedSacr oiliitis, not elsewhere classifiedOthe r intervertebral disc degeneration, lumbosacral region Mar-2 6-202 0 Van Overbeke Kiara. [address], [place], [id number], [place]. tel:[phone] Consulting Provider: Lucas AU, [address] [address], [place], [address]. tel:[phone] ring Provider: Emir Espinal, [address] [place] [address], [id number]. tel:[phone] OFFICE/OUTPAT IENT VISIT, EST [facility], [address] [place] [address], [id number] , [place] tel:[phone] [facility] Back Pain (chief complaint) [facility] (current) use of opiate analgesicEncou nter for therapeutic drug level monitoringPost laminectomy syndrome, not elsewhere classifiedSacr oiliitis, not elsewhere classifiedOthe r intervertebral disc degeneration, lumbosacral region 0 Jonah Pastorberoberto carlos Craig. [address], [place], [id number], [place]. [phone] Consulting Provider: Lucas AU, [address] [address], [place], [address]. tel:[phone] ring Provider: Emir Espinal, [address] [place] [address], [address]. [phone] OFFICE/OUTPAT IENT VISIT, [facility], [address] [place] [address], [id number] , [place] tel:[phone] [facility] Back Pain (chief complaint) terminal clerk (current) use of opiate analgesicPostl aminectomy syndrome, not elsewhere classifiedSacr oiliitis, not elsewhere classifiedOthe r intervertebral disc degeneration, lumbosacral region 0 Jonah Craig. [address] [place] [address], [id number], [place]. tel:[phone] Consulting Provider: Lucas AU, [facility] [address] Merc[address] [address], [place], [address]. tel:[phone] ring Provider: Emir Espinal, [address] [place] [address], [id number]. tel:[phone] OFFICE/OUTPAT IENT VISIT, [facility], [address] [place] [address], [id number] , [place] [phone] [facility] Back Pain (chief complaint) [facility] (current) use of opiate analgesicSacro iliitis, not elsewhere classifiedOthe r intervertebral disc degeneration, lumbosacral regionPostlami nectomy syndrome, not elsewhere classified 0 Jonah Craig. [address], [place], [id number], [place]. tel:[phone] Consulting Provider: Lucas AU, [facility] [address] [address], [place], [address]. tel:[phone] ring Provider: Emir Espinal, [address] [place] [address], [id number]. tel:[phone] OFFICE/OUTPAT IENT VISIT, [facility], [address] [place] [address], [id number] , [place] tel:[phone] [facility] Back Pain (chief complaint) [facility] (current) use of opiate analgesicLow back painSacroiliit is, not elsewhere classifiedPost laminectomy syndrome, not elsewhere classifiedOthe r intervertebral disc degeneration, lumbosacral region Jonah Craig. [address], [place], [id number], [place]. tel:[phone] Consulting Provider: Lucas AU, [address] [address], [place], [address]. tel:[phone] ring Provider: Emir Espinal, [address] [place] [address], [id number]. 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 [address] [place] [address], [id number], [place]. tel:[phone] Consulting Provider: Lucas AU, [address] Carmel Mercado [facility] [address] [address], [place], [address]. tel:[phone] ring Provider: Emir Espinal, [address] [place] [address], [id number]. tel:[phone] OFFICE/OUTPAT IENT VISIT, [facility], [address] [place] [address], [id number] , [place] tel:[phone] [facility] Back Pain (chief complaint) Postlaminectom y syndrome, not elsewhere classifiedOthe r intervertebral disc degeneration, lumbosacral regionSacroili itis, not elsewhere classifiedLow back painLong term (current) use of opiate analgesicEncou nter for therapeutic drug level monitoring Jonah Craig. [address] [place] [address], [id number], [place]. tel:[phone] Consulting Provider: Lucas AU, [address] Carmel Mercado [facility] [address] [address], [place], [address]. tel:[phone] ring Provider: Emir Espinal, [address] [place] [address], [id number]. tel:[phone] OFFICE/OUTPAT IENT VISIT, [facility], [address] [place] [address], [id number] , [place] tel:[phone] [facility] Back Pain (chief complaint) Postlaminectom y syndrome, not elsewhere classifiedOthe r intervertebral disc degeneration, lumbosacral regionSacroili itis, not elsewhere classifiedLow back painLong term (current) use of opiate analgesic Jonah Overbeke Kiara. [address] [place] [address], [id number], [place]. tel:[phone] Consulting Provider: Lucas AU, [address] Marlon [facility], [place], [address]. tel:[phone] ring Provider: Emir Espinal, [address] [place] [address], [id number]. tel:[phone] OFFICE/OUTPAT IENT VISIT, [facility], [address] [place] [address], [id number] , [place] [phone] [facility] Back Pain (chief complaint) Postlaminectom y syndrome, not elsewhere classifiedOthe r intervertebral disc degeneration, lumbosacral regionSacroili itis, not elsewhere classifiedLow back painLong term (current) use of opiate analgesic Luisito-0 2201 9 Van Overbeke Kiara. [address] [place] [address], [id number], [place]. tel:[phone] Consulting Provider: Lucas AU, [address] [address], [place], [address]. tel:[phone] Provider: Emir Espinal, [address] [place] [address], [id number]. tel:[phone] OFFICE/OUTPAT IENT VISIT, [facility], [address] [place] [address], [id number] , [place] tel:[phone] [facility] Back Pain (chief complaint) Postlaminectom y syndrome, not elsewhere classifiedOthe r intervertebral disc degeneration, lumbosacral regionSacroili itis, not elsewhere classifiedLow back painLong term (current) use of opiate analgesic May-0 9 Van Overbeke Kiara. [address] [place] [address], [id number], [place]. tel:[phone] Consulting Provider: Lucas AU, [address] [address], [place], [address]. tel:[phone] Provider: Emir Espinal, [address] [place] [address], [address]. tel:[phone] OFFICE/OUTPAT IENT VISIT, [facility], [address] [place] [address], [id number] , [place] [phone] [facility] Back Pain (chief complaint) Postlaminectom y syndrome, not elsewhere classifiedOthe r intervertebral disc degeneration, lumbosacral regionSacroili itis, not elsewhere classifiedLow back painLong term (current) use of opiate analgesicEncou nter for therapeutic drug level monitoring Van Overberoberto carlos Craig. [address] [place] [address], [id number], [place]. tel:[phone] Consulting Provider: Lucas AU, [address], [address]. tel:[phone] ring Provider: Emir Espinal, [address] [place] [address], [address]. tel:[phone] OFFICE/OUTPAT IENT VISIT, [facility], [address] [place] [address], [id number] , [place] [phone] [facility] Back Pain (chief complaint) Postlaminectom y syndrome, not elsewhere classifiedOthe r intervertebral disc degeneration, lumbosacral regionSacroili itis, not elsewhere classifiedLow back painLong term (current) use of opiate analgesic Van Overbeke Kiara. [address] [place] [address], [id number], [place]. tel:[phone] Consulting Provider: Lucas AU, [address] [address], [place], [address]. tel:[phone] ring Provider: Emir Espinal, [address] [place] [address], [address]. tel:[phone] OFFICE/OUTPAT IENT VISIT, [facility], [address] [place] [address], [id number] , [place] tel:[phone] [facility] Back Pain (chief complaint) Sacroiliitis, not elsewhere classifiedPost laminectomy syndrome, not elsewhere classifiedOthe r intervertebral disc degeneration, lumbosacral regionLow back painLong term (current) use of opiate analgesic Dec-0 8 Jonah Craig. [address] [place] [address], [id number], [place]. tel:[phone] Consulting Provider: Lucas AU, [address] [facility], [place], [address]. tel:[phone] ring Provider: Emir Espinal, [address] [place] [address], [address]. tel:[phone] OFFICE/OUTPAT IENT VISIT, [facility], [address] [place] [address], [id number] , [place] [phone] [facility] Back Pain (chief complaint) Sacroiliitis, not elsewhere classifiedPost laminectomy syndrome, not elsewhere classifiedOthe r intervertebral disc degeneration, lumbosacral regionLow back pain Nov-0 8 Jonah Craig. [address] [place] [address], [id number], [place]. tel:[phone] Consulting Provider: Lucas AU, [address] [place] [address], [place], [address]. tel:[phone] ring Provider: Emir Espinal, [address] [place] [address], [id number]. tel:[phone] OFFICE/OUTPAT IENT VISIT, [facility], [address] [place] [address], [id number] , [place] [phone] [facility] Back Pain (chief complaint) Sacroiliitis, not elsewhere classifiedPost laminectomy syndrome, not elsewhere classifiedOthe r intervertebral disc degeneration, lumbosacral regionLow back pain 8 Jonah Craig. [address] [place] [address], [id number], [place]. tel:[phone] Consulting Provider: Lucas AU, [address], [place], [address]. tel:[phone] ring Provider: Emir Espinal, [address] [place] [address], [address]. tel:[phone] OFFICE/OUTPAT IENT VISIT, [facility], [address] [place] [address], [id number] , [place] tel:[phone] [facility] Back Pain (chief complaint) Sacroiliitis, not elsewhere classifiedPost laminectomy syndrome, not elsewhere classifiedOthe r intervertebral disc degeneration, lumbosacral regionLow back pain 8 Jonah Craig. [address] [place] [address], [id number], [place]. tel:[phone] Consulting Provider: Lucas AU, [address]dg [address] [facility], [place], [address]. tel:[phone] ring Provider: Emir Espinal, [address] [place] [address], [id number]. tel:[phone] OFFICE/OUTPAT IENT VISIT, [facility], [address] [place] [address], [id number] , [place] tel:[phone] [facility] Back Pain (chief complaint) Sacroiliitis, not elsewhere classifiedPost laminectomy syndrome, not elsewhere classifiedLow back painOther intervertebral disc degeneration, lumbosacral region 8 Jonah Craig. [address] [place] [address], [id number], [place]. tel:[phone] Consulting Provider: Lucas AU, [facility] [address] [facility], [place], [address]. tel:[phone] ring Provider: Emir Espinal, [address] [place] [address], [address]. tel:[phone] OFFICE/OUTPAT IENT VISIT, [facility], [address] [place] [address], [id number] , [place] tel:[phone] [facility] Back Pain (chief complaint) Sacroiliitis, not elsewhere classifiedPost laminectomy syndrome, not elsewhere classifiedLow back painOther intervertebral disc degeneration, lumbosacral region Apr-0 8 Jonah Craig. [address] [place] [address], [id number], [place]. tel:[phone] Consulting Provider: Lucas AU, [address], [address]. tel:[phone] ring Provider: Emir Espinal, [address] [place] [address], [address]. tel:[phone] OFFICE/OUTPAT IENT VISIT, [facility], [address] [place] [address], [id number] , [place] tel:[phone] [facility] Back Pain (chief complaint) Postlaminectom y syndrome, not elsewhere classifiedLow back painSacroiliit is, not elsewhere classified Feb-0 8 Jonah Craig. [address] [place] [address], [id number], [place]. tel:[phone] Consulting Provider: Lucas AU, [facility] [address] [place] [address], [place], [address]. tel:[phone] ring Provider: Emir Espinal, [address] [place] [address], [address]. tel:[phone] OFFICE/OUTPAT IENT VISIT, [facility], [address] [place] [address], [id number] , [place] [phone] [facility] Back Pain (chief complaint) Postlaminectom y syndrome, not elsewhere classifiedSacr oiliitis, not elsewhere classifiedOthe r intervertebral disc degeneration, lumbosacral region 8 Van Overbeke Kiara. [address] [place] [address], [id number], [place]. tel:[phone] Referring Provider: Emir Espinal, [address] [place] [address], [id number]. tel:[phone] OFFICE/OUTPAT IENT VISIT, [facility], [address] [place] [address], [id number] , [place] tel:[phone] [facility] Back Pain (chief complaint) Postlaminectom y syndrome, not elsewhere classifiedSacr oiliitis, not elsewhere classifiedOthe r intervertebral disc degeneration, lumbosacral region Van Overbeke Kiara. [address] [place] [address], [id number], [place]. tel:[phone] Referring Provider: Emir Espinal, [address] [place] [address], [address]. tel:[phone] OFFICE/OUTPAT IENT VISIT, EST [facility], [address] [place] [address], [id number] , [place] [phone] [facility] Back Pain (chief complaint) Postlaminectom y syndrome, not elsewhere classifiedSacr oiliitis, not elsewhere classifiedOthe r intervertebral disc degeneration, lumbosacral region Van Overbeke Kiara. [address] [place] [address], [id number], [place]. tel:[phone] Consulting Provider: Lucas Talamantes [facility], [facility] [place] [address] [facility] [address] [address], [place], [address]. tel:[phone] ring Provider: Emir Espinal, [address] [place] [address], [address]. tel:[phone] OFFICE/OUTPAT IENT VISIT, EST [facility], [address] [place] [address], [id number] , [place] tel:[phone] [facility] Back [facility] (chief complaint) Postlaminectom y syndrome, not elsewhere classifiedOthe r intervertebral disc degeneration, lumbosacral regionSacroili itis, not elsewhere classifiedLong term (current) use of opiate analgesic Jonah Craig. [address] [place] [address], [id number], [place]. tel:[phone] Referring Provider: Emir Espinal, [address] [place] [address], [address]. tel:[phone] OFFICE/OUTPAT IENT VISIT, EST [facility], [address] [place] [address], [id number] , [place] tel:[phone] [facility] Back Pain (chief complaint) Postlaminectom y syndrome, not elsewhere classifiedOthe r intervertebral disc degeneration, lumbosacral regionSacroili itis, not elsewhere classified 7 Ney Quinones. [address] [place] [address], [id number], [place]. tel:[phone] Consulting Provider: Lucas AU, [facility] [place] [address] [facility] [address] [address], [place], [address]. tel:[phone] ring Provider: Emir Espinal, [address] [place] [address], [address]. tel:[phone] OFFICE/OUTPAT IENT VISIT, [facility], [address] [place] [address], [id number] , [place] tel:[phone] [facility] Back Pain (chief complaint) Postlaminectom y syndrome, not elsewhere classifiedOthe r intervertebral disc degeneration, lumbosacral region Jonah Craig. [address] [place] [address], [id number], [place]. tel:[phone] Referring Provider: Emir Espinal, [address] [place] [address], [address]. tel:[phone] OFFICE/OUTPAT IENT VISIT, [facility], [address] [place] [address], [id number] , [place] tel:[phone] [facility] Back Pain (chief complaint) Postlaminectom y syndrome, not elsewhere classifiedOthe r intervertebral disc degeneration, lumbosacral region 7 Ney Quinones. [address] [place] [address], [id number], [place]. tel:[phone] Consulting Provider: Lucas AU, [address] [address], [place], [address]. tel:[phone] Provider: Emir Espinal, [address] [place] [address], [id number]. tel:[phone] OFFICE/OUTPAT IENT VISIT, [facility] [facility], [address] [place] [address], [id number] , [place] tel:[phone] [facility] low back pain (chief complaint) Postlaminectom y syndrome, not elsewhere classifiedLow back pain 7 Ney Quinones. [address] [place], [place], [id number], [place]. tel:[phone] Consulting Provider: Lucas AU, [facility] [address] [address], [place], [address]. tel:[phone] ring Provider: Emir Espinal, [address] [place] [address], [address]. tel:[phone] OFFICE/OUTPAT IENT VISIT, [facility], [address] [place] [address], [id number] , [place] tel:[phone] [facility] low back pain (chief complaint) Low back painPostlamine ctomy syndrome, not elsewhere classified Ney Quinones. [address] [place], [place], [id number], [place]. tel:[phone] Referring Provider: Emir Espinal, [address] [place] [address], [address]. tel:[phone] OFFICE/OUTPAT IENT VISIT, [facility], [address] [place] [address], [id number] , [place] tel:[phone] [facility] low back pain (chief complaint) Low back painPostlamine ctomy syndrome, not elsewhere classified Ney Quinones. [address] [place] [address], [id number], [place]. tel:[phone] Consulting Provider: Lucas AU, [facility] [address] [address], [place], [address]. tel:[phone] Provider: Emir Espinal, [address] [place] [address], [address]. tel:[phone] OFFICE/OUTPAT IENT VISIT, [facility], [address] [place] [address], [id number] , [place] tel:[phone] [facility] Back Pain (chief complaint) Postlaminectom y syndrome, not elsewhere classified Ney Quinones. [address] [place] [address], [id number], [place]. tel:[phone] Consulting Provider: Lucas AU, [facility] [place] [address] [place] [address] [facility], [place], [address]. tel:[phone] ring Provider: Emir Espinal, [address] [place] [address], [address]. tel:[phone] OFFICE/OUTPAT IENT VISIT, [facility], [address] [place] [address], [id number] , [place] tel:[phone] [facility] Back Pain (chief complaint) Postlaminectom y syndrome, not elsewhere classifiedLong term (current) use of opiate analgesic Ever Medina. [address] [place] [address], [id number], [place]. tel:[phone] Consulting Provider: Lucas AU, [facility] [address] [facility], [place], [address]. tel:[phone] ring Provider: Emir Espinal, [address] [place] [address], [address]. tel:[phone] OFFICE/OUTPAT IENT VISIT, [facility], [address] [place] [address], [id number] , [place] [phone] [facility] low back pain (chief complaint) Low back painPostlamine ctomy syndrome, not elsewhere classified Ney Quinones. [address] [place] [address], [id number], [place]. tel:[phone] Consulting Provider: Lucas AU, [address] [place] [address], [place], [address]. tel:[phone] ring Provider: Emir Espinal, [address] [place] [address], [address]. tel:[phone] OFFICE/OUTPAT IENT VISIT, [facility], [address] [place] [address], [id number] , [place] tel:[phone] [facility] low back pain (chief complaint) Low back painPostlamine ctomy syndrome, not elsewhere classified Ney Quinones. [address] [place] [address], [id number], [place]. tel:[phone] Consulting Provider: Lucas AU, [facility] [address] [facility], [place], [address]. [phone] ring Provider: Emir Espinal, [address] [place] [address], [address]. [phone] OFFICE/OUTPAT IENT VISIT, [facility], [address] [place] [address], [id number] , [place] tel:[phone] [facility] low back pain (chief complaint) Low back painPostlamine ctomy syndrome, not elsewhere classified 6 Ney Stacie. [address], [place], [id number], [place]. [phone] Consulting Provider: Lucas AU, [facility] [address] [address], [place], [facility]. [phone] ring Provider: Emir Espinal, [address] [place] [address], [address]. [phone] OFFICE/OUTPAT IENT VISIT, [facility], [address] [place] [address], [id number] , [place] tel:[phone] [facility] low back pain (chief complaint) Other cervical disc degeneration, high cervical regionLow back painPostlamine ctomy syndrome, not elsewhere classified 6 Ney Stacie. [address], [place], [id number], [place]. [phone] Consulting Provider: Lucas AU, [facility] [address] [facility], [place], [address]. tel:[phone] ring Provider: Emir Espinal, [address] [place] [address], [address]. [phone] OFFICE/OUTPAT IENT VISIT, [facility], [address] [place] [address], [id number] , [place] [phone] [facility] Neck pain (chief complaint) low back pain (chief complaint) Other cervical disc degeneration, high cervical regionLow back painPostlamine ctomy syndrome, not elsewhere classified Oct 0 6 Ney Quinones. [address] [place] [address], [id number], [place]. tel:[phone] Consulting Provider: Lucas AU, [facility] [address], [place], [address]. tel:[phone] ring Provider: Emir Espinal, [address] [place] [address], [address]. tel:[phone] OFFICE/OUTPAT IENT VISIT, [facility], [address] [place] [address], [id number] , [place] tel:[phone] [facility] low back pain (chief complaint) Postlaminectom y syndrome, not elsewhere classifiedLow back painLong term (current) use of opiate analgesic Oct- 6 Yasir Campos. [address] [place] [address], [id number], [place]. tel:[phone] Consulting Provider: Lucas AU, [address] [address], [place], [address]. tel:[phone] ring Provider: Emir Espinal, [address] [place] [address], [address]. tel:[phone] OFFICE/OUTPAT IENT VISIT, [facility], [address] [place] [address], [id number] , [place] tel:[phone] [facility] low back pain (chief complaint) Postlaminectom y syndrome, not elsewhere classifiedLow back pain 6 Yasir Campos. [address] [place] [address], [id number], [place]. tel:[phone] Referring Provider: Emir Espinal, [address] [place] [address], [address]. tel:[phone] OFFICE/OUTPAT IENT VISIT, EST [facility], [address], [place], [id number] , [place] [phone] [facility] [place] low back pain (chief complaint) Postlaminectom y syndrome, not elsewhere classifiedLow back pain 6 Yasir Campos. [address] [place], [place], [id number], [place]. tel:[phone] Consulting Provider: Lucas AU, [address], [place], [address]. tel:[phone] ring Provider: Emir Espinal, [address] [place] [address], [address]. tel:[phone] OFFICE/OUTPAT IENT VISIT, [facility], [address], [place], [id number] , [place] [phone] [facility] low back pain (chief complaint) Low back painPostlamine ctomy syndrome, not elsewhere classified 6 Ney Stacie. [address] [place], [place], [id number], [place]. tel:[phone] Consulting Provider: Lucas AU, [address] [facility], [place], [address]. tel:[phone] ring Provider: Emir Espinal, [address] [place], [address]. tel:[phone] OFFICE/OUTPAT IENT VISIT, [facility], [address], [place], [id number] , [place] [phone] [facility] low back pain (chief complaint) Low back painPostlamine ctomy syndrome, not elsewhere classified Ney Stacie. [address] [place], [place], [id number], [place]. tel:[phone] Consulting Provider: Lucas AU, [address], [place], [address]. tel:[phone] ring Provider: Emir Espinal, [address] [place] [address], [address]. tel:[phone] OFFICE/OUTPAT IENT VISIT, [facility], [address] [place] [address], [id number] , [place] [phone] [facility] [place] low back pain (chief complaint) Postlaminectom y syndrome, not elsewhere classifiedLow back pain May- 6 Yasir Beth. [address] [place] [address], [id number], [place]. tel:[phone] Consulting Provider: Lucas AU, [address] [place] [address], [place], [address]. tel:[phone] ring Provider: Emir Espinal, [address] [place] [address], [address]. tel:[phone] OFFICE/OUTPAT IENT VISIT, [facility], [address] [place] [address], [id number] , [place] tel:[phone] [facility] low back pain (chief complaint) Low back painPostlamine ctomy syndrome, not elsewhere classified Apr- 6 Ney Quinones. [address] [place] [address], [id number], [place]. tel:[phone] Consulting Provider: Lucas AU, [address], [place], [address]. tel:[phone] ring Provider: Emir Espinal, [address] [place] [address], [address]. tel:[phone] OFFICE/OUTPAT IENT VISIT, [facility], [address] [place] [address], [id number] , [place] tel:[phone] [facility] low back pain (chief complaint) Low back pain 6 Ney Stacie. [address] [place], [place], [id number], [place]. tel:[phone] Consulting Provider: Lucas AU, [facility] [address], [place], [address]. tel:[phone] ring Provider: Emir Espinal, [address] [place] [address], [address]. tel:[phone] OFFICE/OUTPAT IENT VISIT, [facility], [address] [place] [address], [id number] , [place] [phone] [facility] low back pain (chief complaint) Low back painPostlamine ctomy syndrome, not elsewhere classified 6 Ney Stacie. [address] [place], [place], [id number], [place]. tel:[phone] Consulting Provider: Lucas AU, [address], [place], [address]. tel:[phone] ring Provider: Emir Espinal, [address] [place] [address], [address]. tel:[phone] OFFICE/OUTPAT IENT VISIT, [facility], [address] [place] [address], [id number] , [place] [phone] [facility] low back pain (chief complaint) Low back painPostlamine ctomy syndrome, not elsewhere classified 5 Ney Stacie. [address] [place] [address], [id number], [place]. tel:[phone] Consulting Provider: Lucas AU, [facility] [address], [place], [address]. tel:[phone] ring Provider: Emir Espinal, [address] [place], [address]. [phone] OFFICE/OUTPAT IENT VISIT, EST [facility], [address] [place] [address], [id number] , [place] tel:[phone] [facility] [place] low back pain (chief complaint) Trochanteric bursitis, right hipTrochanteri c bursitis, left hipLow back painPostlamine ctomy syndrome, not elsewhere classified 5 Ney Stacie. [address] [place], [place], [id number], [place]. tel:[phone] Consulting Provider: Lucas AU, [address], [place], [address]. [phone] ring Provider: Emir Espinal, [address] [place] [address], [address]. [phone] OFFICE/OUTPAT IENT VISIT, [facility], [address] [place] [address], [id number] , [place] [phone] [facility] low back pain (chief complaint) Low back painPostlamine ctomy syndrome, not elsewhere classified 5 Ney Morgana. [address], [place], [id number], [place]. tel:[phone] Consulting Provider: Lucas AU, [facility] [address], [place], [address]. tel:[phone] ring Provider: Emir Espinal, [address] [place] [address], [address]. tel:[phone] OFFICE/OUTPAT IENT VISIT, [facility], [address] [place] [address], [id number] , [place] tel:[phone] [facility] ([facility] complaint) LumbagoPostlam inectomy syndrome of lumbar region Sep-2 1-201 5 Ney Quinones. [address], [place], [id number], [place]. tel:[phone] Consulting Provider: Lucas AU, [facility] [address], [place], [address]. tel:[phone] ring Provider: Emir Espinal, [address] [place] [address], [address]. tel:[phone] OFFICE/OUTPAT IENT VISIT, [facility], [address] [place] [address], [id number] , [place] tel:[phone] [facility] low back pain (chief complaint) LumbagoPostlam inectomy syndrome of lumbar regionEncounte r for current long term care administrator use of high risk medication Sep-0 3-201 5 Ney Quinones. [address] [place], [place], [id number], [place]. tel:[phone] Consulting Provider: Lucas AU, [address] [facility], [place], [address]. tel:[phone] ring Provider: Emir Espinal, [address] [place] [address], [address]. tel:[phone] OFFICE/OUTPAT IENT VISIT, [facility], [address] [place] [address], [id number] , [place] tel:[phone] [facility] low back pain (chief complaint) LumbagoPostlam inectomy syndrome of lumbar region Aug-0 3-201 5 Ney Quinones. [address] [place], [place], [id number], [place]. tel:[phone] Consulting Provider: Lucas AU, [address], [place], [address]. tel:[phone] ring Provider: Emir Espinal, [address] [place] [address], [address]. tel:[phone] OFFICE/OUTPAT IENT VISIT, [facility], [address] [place] [address], [id number] , [place] tel:[phone] [facility] Back Pain (chief complaint) Lumbar failed back surgery syndrome 0 5 No Information Consulting Provider: Lucas Talamantes PAC, [facility] [place] 675 [facility] 675 [facility] [address], [place], [address]. tel:[phone] Provider: Emir Espinal, [address] [place] [address], [address]. tel:[phone] OFFICE/OUTPAT IENT VISIT, [facility], [address] [place] [address], [id number] , [place] tel:[phone] [facility] Back Pain (chief complaint) Lumbar failed back surgery syndromeEncoun ter for current long term care administrator use of high risk medication Jul- 5 No Information Referring Provider: Emir Espinal, [address] [place] [address], [address]. tel:[phone] OFFICE/OUTPAT IENT VISIT, [facility], [address] [place] [address], [id number] , [place] tel:[phone] [facility] low back pain (chief complaint) Lumbar failed back surgery syndrome Jul-0 5 No Information Referring Provider: Emir Espinal, [address] [place] [address], [address]. tel:[phone] OFFICE/OUTPAT IENT VISIT, [facility], [address] [place] [address], [id number] , [place] tel:[phone] [facility] Back Pain (chief complaint) Lumbar failed back surgery syndromeEncoun ter for current jail use of high risk medication 0 5 No Information Referring Provider: Emir Espinal, [address] [place] [address], [address]. tel:[phone] Family History Family Member Type Diagnosis Age At Onset No Information Payers Payer name Insurance type Covered green party ID Authoriza tiflaco(s) No Information Social History Type Description Quantity Date Captured Comments Alcohol Use Details Unknown Caffeine Use Details Unknown Tobacco Use Status No Information Smoking Status No Information Sex Female Chief Complaint And Reason For Visit No Information Reason For Referral Reason For Referral No Information Plan Of Treatment Date Type Action Status Goal Update Social Hi story. Due on due Goal PHQ-9. Due on du e Goal Medication Recon ciliation. Due on due Goal OARS. Due on due Goal UDT. Due on due Goal Creatinine. Due on due Goal FIT. Due on due Goal Weight. Due on d ue Goal BUSINESS QUALITY ASSURANCE ANALYST Scanned. Due on 024 due Goal AST (SGOT). Due on due Goal FIT-DNA. Due on due Goal Order Annual PT. Due on due Goal Height. Due on d ue Goal Zoster vaccine ( 1st). Due on due Goal Review Allergy List. Due on due Goal MAINTENANCE GROUNDSKEEPER Paperwork. Due on due Goal Unhealthy drug u se screening. Due on due Goal ALT (SGPT). Due on due Goal CT-Colonography. Due on due Goal Tobacco Use. Due on due Goal HPV. Due on due Goal Lipid panel. Due on due Goal Hepatitis C scre ening. Due on due Goal MAINTENANCE GROUNDSKEEPER Paperwork. Due on due Goal OARS. Due on due Goal Medication Recon ciliation. Due on due Goal UDT. Due on due Goal CT-Colonography. Due on due Goal Creatinine. Due on due Goal Height. Due on d ue Goal AST (SGOT). Due on due Goal Tobacco Use. Due on due Goal FIT. Due on due Goal Order Annual PT. Due on due Goal Review Allergy List. Due on due Goal PHQ-9. Due on du e Goal ALT (SGPT). Due on due Goal Update Social Hi story. Due on due Goal Weight. Due on d ue Goal BUSINESS QUALITY ASSURANCE ANALYST Scanned. Due on due Goal Lipid panel. Due on due Goal HPV. Due on due Goal Unhealthy drug u se screening. Due on due Goal Hepatitis C scre ening. Due on due Goal Zoster vaccine ( 1st). Due on due Goal FIT-DNA. Due on due Goal Medication Recon ciliation. Due on due Goal HPV. Due on due Goal ALT (SGPT). Due on due Goal Order Annual PT. Due on due Goal Height. Due on d ue Goal UDT. Due on due Goal Update Social Hi story. Due on due Goal OARS. Due on due Goal Tobacco Use. Due on due Goal Unhealthy drug u se screening. Due on due Goal PHQ-9. Due on du e Goal Zoster vaccine ( ). Due on due Goal Review Allergy List. Due on due Goal FIT. Due on due Goal AST (SGOT). Due on due Goal Weight. Due on d ue Goal MAINTENANCE GROUNDSKEEPER Paperwork. Due on due Goal BUSINESS QUALITY ASSURANCE ANALYST Scanned. Due on due Goal Hepatitis C scre ening. Due on due Goal Creatinine. Due on due Goal Lipid panel. Due on due Goal FIT-DNA. Due on due Goal CT-Colonography. Due on due Goal Lifestyle education regardin g diet completed Goal ALT (SGPT). Due on due Goal FIT-DNA. Due on due Goal Review Allergy List. Due on due Goal Hepatitis C scre ening. Due on due Goal Creatinine. Due on due Goal OARS. Due on due Goal MAINTENANCE GROUNDSKEEPER Paperwork. Due on due Goal FIT. Due on due Goal Update Social Hi story. Due on due Goal Lipid panel. Due on due Goal PHQ-9. Due on du e Goal CT-Colonography. Due on due Goal Medication Recon ciliation. Due on due Goal Zoster vaccine ( 1st). Due on due Goal HPV. Due on due Goal Height. Due on d ue Goal Order Annual PT. Due on due Goal Weight. Due on d ue Goal Unhealthy drug u se screening. Due on due Goal UDT. Due on due Goal BUSINESS QUALITY ASSURANCE ANALYST Scanned. Due on due Goal AST (SGOT). Due on due Goal Tobacco Use. Due on due Goal OARS. Due on due Goal ALT (SGPT). Due on due Goal Creatinine. Due on due Goal UDT. Due on due Goal AST (SGOT). Due on due Goal MAINTENANCE GROUNDSKEEPER Paperwork. Due on due Goal Order Annual PT. Due on due Goal BUSINESS QUALITY ASSURANCE ANALYST Scanned. Due on due Goal Height. Due on d ue Goal Lipid panel. Due on due Goal CT-Colonography. Due on due Goal Review Allergy List. Due on due Goal FIT. Due on due Goal PHQ-9. Due on du e Goal Update Social Hi story. Due on due Goal Unhealthy drug u se screening. Due on due Goal Weight. Due on d ue Goal HPV. Due on due Goal Zoster vaccine ( 1st). Due on due Goal Medication Recon ciliation. Due on due Goal Tobacco Use. Due on due Goal FIT-DNA. Due on due Goal Hepatitis C scre ening. Due on due Goal BUSINESS QUALITY ASSURANCE ANALYST Scanned. Due on due Goal Creatinine. Due on due Goal OARS. Due on due Goal ALT (SGPT). Due on due Goal Update Social Hi story. Due on due Goal UDT. Due on due Goal FIT. Due on due Goal PHQ-9. Due on du e Goal CT-Colonography. Due on due Goal Tobacco Use. Due on due Goal Order Annual PT. Due on due Goal AST (SGOT). Due on due Goal MAINTENANCE GROUNDSKEEPER Paperwork. Due on due Goal Height. Due on d ue Goal Medication Recon ciliation. Due on due Goal Zoster vaccine ( 1st). Due on due Goal Weight. Due on d ue Goal Review Allergy List. Due on due Goal Hepatitis C scre ening. Due on due Goal FIT-DNA. Due on due Goal HPV. Due on due Goal Lipid panel. Due on due Goal Unhealthy drug u se screening. Due on due Goal CT-Colonography. Due on due Goal Order Annual PT. Due on due Goal Tobacco Use. Due on due Goal Update Social Hi story. Due on due Goal ALT (SGPT). Due on due Goal Weight. Due on d ue Goal MAINTENANCE GROUNDSKEEPER Paperwork. Due on due Goal HPV. Due on due Goal OARS. Due on due Goal UDT. Due on due Goal FIT. Due on due Goal BUSINESS QUALITY ASSURANCE ANALYST Scanned. Due on due Goal PHQ-9. Due on du e Goal Hepatitis C scre ening. Due on due Goal Medication Recon ciliation. Due on due Goal Height. Due on d ue Goal FIT-DNA. Due on due Goal Zoster vaccine ( 1st). Due on due Goal AST (SGOT). Due on due Goal Review Allergy List. Due on due Goal Lipid panel. Due on due Goal Unhealthy drug u se screening. Due on due Goal Creatinine. Due on due Goal Review Allergy List. Due on due Goal FIT-DNA. Due on due Goal Tobacco Use. Due on due Goal Weight. Due on d ue Goal OARS. Due on due Goal Order Annual PT. Due on due Goal Hepatitis C scre ening. Due on due Goal Creatinine. Due on due Goal CT-Colonography. Due on due Goal Unhealthy drug u se screening. Due on due Goal Update Social Hi story. Due on due Goal FIT. Due on due Goal Height. Due on d ue Goal ALT (SGPT). Due on due Goal Lipid panel. Due on due Goal HPV. Due on due Goal UDT. Due on due Goal AST (SGOT). Due on due Goal Zoster vaccine ( ). Due on due Goal BUSINESS QUALITY ASSURANCE ANALYST Scanned. Due on due Goal MAINTENANCE GROUNDSKEEPER Paperwork. Due on due Goal Medication Recon ciliation. Due on due Goal PHQ-9. Due on du e Goal Lipid panel. Due on due Goal Update Social Hi story. Due on due Goal Tobacco Use. Due on due Goal Medication Recon ciliation. Due on due Goal Order Annual PT. Due on due Goal UDT. Due on due Goal Zoster vaccine ( ). Due on due Goal ALT (SGPT). Due on due Goal OARS. Due on due Goal Unhealthy drug u se screening. Due on due Goal MAINTENANCE GROUNDSKEEPER Paperwork. Due on due Goal PHQ-9. Due on du e Goal FIT-DNA. Due on due Goal BUSINESS QUALITY ASSURANCE ANALYST Scanned. Due on due Goal CT-Colonography. Due on due Goal Review Allergy List. Due on due Goal Hepatitis C scre ening. Due on due Goal Height. Due on d ue Goal Weight. Due on d ue Goal FIT. Due on due Goal HPV. Due on due Goal AST (SGOT). Due on due Goal Creatinine. Due on due Goal Creatinine. Due on due Goal Height. Due on d ue Goal UDT. Due on due Goal ALT (SGPT). Due on due Goal Order Annual PT. Due on due Goal BUSINESS QUALITY ASSURANCE ANALYST Scanned. Due on due Goal MAINTENANCE GROUNDSKEEPER Paperwork. Due on due Goal Lipid panel. Due on due Goal PHQ-9. Due on du e Goal Zoster vaccine ( 1st). Due on due Goal Update Social Hi story. Due on due Goal OARS. Due on due Goal CT-Colonography. Due on due Goal HPV. Due on due Goal FIT-DNA. Due on due Goal AST (SGOT). Due on due Goal Unhealthy drug u se screening. Due on due Goal Hepatitis C scre ening. Due on due Goal FIT. Due on due Goal Weight. Due on d ue Goal Review Allergy List. Due on due Goal Tobacco Use. Due on due Goal Medication Recon ciliation. Due on due Goal Review Allergy List. Due on due Goal Zoster vaccine ( ). Due on due Goal FIT-DNA. Due on due Goal Order Annual PT. Due on due Goal Creatinine. Due on due Goal ALT (SGPT). Due on due Goal UDT. Due on due Goal FIT. Due on due Goal Weight. Due on d ue Goal BUSINESS QUALITY ASSURANCE ANALYST Scanned. Due on due Goal HPV. Due on due Goal Hepatitis C scre ening. Due on due Goal CT-Colonography. Due on due Goal Update Social Hi story. Due on due Goal Unhealthy drug u se screening. Due on due Goal Medication Recon ciliation. Due on due Goal PHQ-9. Due on du e Goal Lipid panel. Due on due Goal OARS. Due on due Goal Tobacco Use. Due on due Goal AST (SGOT). Due on due Goal Height. Due on d ue Goal MAINTENANCE GROUNDSKEEPER Paperwork. Due on due Goal Hepatitis C scre ening. Due on due Goal Medication Recon ciliation. Due on due Goal ALT (SGPT). Due on due Goal AST (SGOT). Due on due Goal Update Social Hi story. Due on due Goal Review Allergy List. Due on due Goal Weight. Due on d ue Goal Lipid panel. Due on due Goal Creatinine. Due on due Goal Unhealthy drug u se screening. Due on due Goal CT-Colonography. Due on due Goal HPV. Due on due Goal PHQ-9. Due on du e Goal Zoster vaccine ( 1st). Due on due Goal BUSINESS QUALITY ASSURANCE ANALYST Scanned. Due on due Goal Tobacco Use. Due on due Goal OARS. Due on due Goal FIT. Due on due Goal MAINTENANCE GROUNDSKEEPER Paperwork. Due on due Goal Height. Due on d ue Goal UDT. Due on due Goal Order Annual PT. Due on due Goal FIT-DNA. Due on due Goal CT-Colonography. Due on due Goal Update Social Hi story. Due on due Goal Height. Due on d ue Goal PHQ-9. Due on du e Goal Medication Recon ciliation. Due on due Goal HPV. Due on due Goal FIT. Due on due Goal Tobacco Use. Due on due Goal OARS. Due on due Goal Hepatitis C scre ening. Due on due Goal Weight. Due on d ue Goal Zoster vaccine ( 1st). Due on due Goal Lipid panel. Due on due Goal UDT. Due on due Goal FIT-DNA. Due on due Goal Review Allergy List. Due on due Goal Unhealthy drug u se screening. Due on due Goal AST (SGOT). Due on due Goal ALT (SGPT). Due on due Goal MAINTENANCE GROUNDSKEEPER Paperwork. Due on due Goal BUSINESS QUALITY ASSURANCE ANALYST Scanned. Due on due Goal Order Annual PT. Due on due Goal Creatinine. Due on due Goal Unhealthy drug u se screening. Due on due Goal ALT (SGPT). Due on due Goal BUSINESS QUALITY ASSURANCE ANALYST Scanned. Due on due Goal Update Social Hi story. Due on due Goal Creatinine. Due on due Goal MAINTENANCE GROUNDSKEEPER Paperwork. Due on due Goal Medication Recon ciliation. Due on due Goal Weight. Due on d ue Goal Order Annual PT. Due on due Goal AST (SGOT). Due on due Goal OARS. Due on due Goal UDT. Due on due Goal Height. Due on d ue Goal HPV. Due on due Goal Hepatitis C scre ening. Due on due Goal FIT. Due on due Goal FIT-DNA. Due on due Goal CT-Colonography. Due on due Goal Zoster vaccine ( ). Due on due Goal PHQ-9. Due on du e Goal Review Allergy List. Due on due Goal Tobacco Use. Due on due Goal Lipid panel. Due on due Goal Zoster vaccine ( ). Due on due Goal FIT. Due on due Goal Creatinine. Due on due Goal UDT. Due on due Goal Hepatitis C scre ening. Due on due Goal OARS. Due on due Goal PHQ-9. Due on du e Goal ALT (SGPT). Due on due Goal HPV. Due on due Goal FIT-DNA. Due on due Goal Height. Due on d ue Goal Order Annual PT. Due on due Goal AST (SGOT). Due on due Goal Weight. Due on d ue Goal Lipid panel. Due on due Goal Tobacco Use. Due on due Goal MAINTENANCE GROUNDSKEEPER Paperwork. Due on due Goal BUSINESS QUALITY ASSURANCE ANALYST Scanned. Due on due Goal Medication Recon ciliation. Due on due Goal Update Social Hi story. Due on due Goal CT-Colonography. Due on due Goal Unhealthy drug u se screening. Due on due Goal Review Allergy List. Due on due Goal OARS. Due on due Goal Medication Recon ciliation. Due on due Goal Creatinine. Due on due Goal FIT-DNA. Due on due Goal Update Social Hi story. Due on due Goal HPV. Due on due Goal Order Annual PT. Due on due Goal Tobacco Use. Due on due Goal FIT. Due on due Goal PHQ-9. Due on du e Goal ALT (SGPT). Due on due Goal Weight. Due on d ue Goal AST (SGOT). Due on due Goal Zoster vaccine ( 1st). Due on due Goal Lipid panel. Due on due Goal Review Allergy List. Due on due Goal BUSINESS QUALITY ASSURANCE ANALYST Scanned. Due on due Goal UDT. Due on due Goal CT-Colonography. Due on due Goal MAINTENANCE GROUNDSKEEPER Paperwork. Due on due Goal Height. Due on d ue Goal Hepatitis C scre ening. Due on due Goal Unhealthy drug u se screening. Due on due Goal PHQ-9. Due on du e Goal UDT. Due on due Goal Creatinine. Due on due Goal HPV. Due on due Goal Weight. Due on d ue Goal FIT. Due on due Goal Update Social Hi story. Due on due Goal Medication Recon ciliation. Due on due Goal CT-Colonography. Due on due Goal OARS. Due on due Goal ALT (SGPT). Due on 24 due Goal Unhealthy drug u se screening. Due on due Goal Height. Due on d ue Goal Hepatitis C scre ening. Due on due Goal Lipid panel. Due on due Goal MAINTENANCE GROUNDSKEEPER Paperwork. Due on due Goal Order Annual PT. Due on due Goal BUSINESS QUALITY ASSURANCE ANALYST Scanned. Due on due Goal FIT-DNA. Due on due Goal Zoster vaccine ( 1st). Due on due Goal Tobacco Use. Due on due Goal AST (SGOT). Due on due Goal Review Allergy List. Due on due Goal HPV. Due on due Goal CT-Colonography. Due on due Goal Weight. Due on d ue Goal Order Annual PT. Due on due Goal Creatinine. Due on due Goal FIT-DNA. Due on due Goal UDT. Due on due Goal BUSINESS QUALITY ASSURANCE ANALYST Scanned. Due on due Goal ALT (SGPT). Due on due Goal OARS. Due on due Goal Hepatitis C scre ening. Due on due Goal Tobacco Use. Due on due Goal Height. Due on d ue Goal Lipid panel. Due on due Goal Update Social Hi story. Due on due Goal Zoster vaccine ( 1st). Due on due Goal Unhealthy drug u se screening. Due on due Goal Review Allergy List. Due on due Goal FIT. Due on due Goal PHQ-9. Due on du e Goal Medication Recon ciliation. Due on due Goal AST (SGOT). Due on due Goal MAINTENANCE GROUNDSKEEPER Paperwork. Due on due Goal Review Allergy List. Due on due Goal MAINTENANCE GROUNDSKEEPER Paperwork. Due on due Goal Creatinine. Due on due Goal UDT. Due on due Goal BUSINESS QUALITY ASSURANCE ANALYST Scanned. Due on due Goal FIT. Due on due Goal Weight. Due on d ue Goal Medication Recon ciliation. Due on due Goal Lipid panel. Due on due Goal OARS. Due on due Goal Update Social Hi story. Due on due Goal Unhealthy drug u se screening. Due on due Goal Hepatitis C scre ening. Due on due Goal Zoster vaccine ( 1st). Due on due Goal PHQ-9. Due on du e Goal CT-Colonography. Due on due Goal Tobacco Use. Due on due Goal ALT (SGPT). Due on due Goal Height. Due on d ue Goal HPV. Due on due Goal FIT-DNA. Due on due Goal AST (SGOT). Due on due Goal Order Annual PT. Due on due Goal Hepatitis C scre ening. Due on due Goal Lipid panel. Due on due Goal Unhealthy drug u se screening. Due on due Goal FIT-DNA. Due on due Goal Medication Recon ciliation. Due on due Goal Creatinine. Due on due Goal AST (SGOT). Due on due Goal OARS. Due on due Goal UDT. Due on due Goal BUSINESS QUALITY ASSURANCE ANALYST Scanned. Due on due Goal MAINTENANCE GROUNDSKEEPER Paperwork. Due on due Goal Review Allergy List. Due on due Goal ALT (SGPT). Due on due Goal FIT. Due on due Goal Update Social Hi story. Due on due Goal Order Annual PT. Due on due Goal HPV. Due on due Goal CT-Colonography. Due on due Goal Zoster vaccine ( 1st). Due on due Goal Height. Due on d ue Goal Tobacco Use. Due on due Goal Weight. Due on d ue Goal PHQ-9. Due on du e Goal FIT. Due on due Goal Height. Due on d ue Goal UDT. Due on due Goal HPV. Due on due Goal Hepatitis C scre ening. Due on due Goal Unhealthy drug u se screening. Due on due Goal Review Allergy List. Due on due Goal OARS. Due on due Goal Medication Recon ciliation. Due on due Goal Zoster vaccine ( 1st). Due on due Goal Order Annual PT. Due on due Goal AST (SGOT). Due on due Goal Tobacco Use. Due on due Goal Lipid panel. Due on due Goal FIT-DNA. Due on due Goal Update Social Hi story. Due on due Goal CT-Colonography. Due on due Goal Creatinine. Due on due Goal Weight. Due on d ue Goal MAINTENANCE GROUNDSKEEPER Paperwork. Due on due Goal BUSINESS QUALITY ASSURANCE ANALYST Scanned. Due on due Goal ALT (SGPT). Due on due Goal PHQ-9. Due on du e Goal FIT. Due on due Goal Tobacco Use. Due on due Goal Hepatitis C scre ening. Due on due Goal Lipid panel. Due on due Goal Unhealthy drug u se screening. Due on due Goal Weight. Due on d ue Goal Zoster vaccine ( 1st). Due on due Goal Update Social Hi story. Due on due Goal Height. Due on d ue Goal CT-Colonography. Due on due Goal Order Annual PT. Due on due Goal Medication Recon ciliation. Due on due Goal ALT (SGPT). Due on due Goal Review Allergy List. Due on due Goal FIT-DNA. Due on due Goal Creatinine. Due on due Goal MAINTENANCE GROUNDSKEEPER Paperwork. Due on due Goal AST (SGOT). Due on due Goal UDT. Due on due Goal OARS. Due on due Goal PHQ-9. Due on du e Goal HPV. Due on due Goal BUSINESS QUALITY ASSURANCE ANALYST Scanned. Due on due Goal Height. Due on d ue Goal BUSINESS QUALITY ASSURANCE ANALYST Scanned. Due on due Goal Review Allergy [...] Use. Due on due Goal Update Social Hi story. Due on due Goal FIT. Due on due Goal Hepatitis C scre ening. Due on due Goal AST (SGOT). Due on due Goal ALT (SGPT). Due on due Goal Zoster vaccine ( ). Due on due Goal Lipid panel. Due on due Goal MAINTENANCE GROUNDSKEEPER Paperwork. Due on due Goal Unhealthy drug u se screening. Due on due Goal Medication Recon ciliation. Due on due Goal HPV. Due on due Goal CT-Colonography. Due on due Goal Order Annual PT. Due on due Goal PHQ-9. Due on du e Goal MAINTENANCE GROUNDSKEEPER Paperwork. Due on due Goal Review Allergy List. Due on due Goal AST (SGOT). Due on due Goal Medication Recon ciliation. Due on due Goal Zoster vaccine ( 1st). Due on due Goal Update Social Hi story. Due on due Goal HPV. Due on due Goal Unhealthy drug u se screening. Due on due Goal Tobacco Use. Due on due Goal UDT. Due on due Goal Lipid panel. Due on due Goal ALT (SGPT). Due on due Goal OARS. Due on due Goal Creatinine. Due on due Goal BUSINESS QUALITY ASSURANCE ANALYST Scanned. Due on due Goal FIT-DNA. Due on due Goal Height. Due on d ue Goal Hepatitis C scre ening. Due on due Goal Weight. Due on d ue Goal FIT. Due on due Goal Review Allergy List. Due on due Goal Weight. Due on d ue Goal FIT. Due on due Goal UDT. Due on due Goal BUSINESS QUALITY ASSURANCE ANALYST Scanned. Due on due Goal ALT (SGPT). Due on due Goal OARS. Due on due Goal AST (SGOT). Due on due Goal MAINTENANCE GROUNDSKEEPER Paperwork. Due on due Goal Creatinine. Due on due Goal Order Annual PT. Due on due Goal Tobacco Use. Due on due Goal CT-Colonography. Due on due Goal Zoster vaccine ( 1st). Due on due Goal Unhealthy drug u se screening. Due on due Goal FIT-DNA. Due on due Goal Hepatitis C scre ening. Due on due Goal Update Social Hi story. Due on due Goal Lipid panel. Due on due Goal Height. Due on d ue Goal Medication Recon ciliation. Due on due Goal PHQ-9. Due on du e Goal HPV. Due on due Goal ALT (SGPT). Due on due Goal Creatinine. Due on due Goal Unhealthy drug u se screening. Due on due Goal UDT. Due on due Goal FIT-DNA. Due on due Goal HPV. Due on due Goal AST (SGOT). Due on 24 due Goal Update Social Hi story. Due on due Goal CT-Colonography. Due on due Goal Hepatitis C scre ening. Due on due Goal PHQ-9. Due on du e Goal Zoster vaccine ( 1st). Due on due Goal Medication Recon ciliation. Due on due Goal OARS. Due on due Goal BUSINESS QUALITY ASSURANCE ANALYST Scanned. Due on due Goal Height. Due on d ue Goal Lipid panel. Due on due Goal FIT. Due on due Goal Order Annual PT. Due on due Goal MAINTENANCE GROUNDSKEEPER Paperwork. Due on due Goal Tobacco Use. Due on due Goal Review Allergy List. Due on due Goal Weight. Due on d ue Goal Height. Due on d ue Goal Creatinine. Due on due Goal ALT (SGPT). Due on due Goal HPV. Due on due Goal OARS. Due on due Goal UDT. Due on due Goal MAINTENANCE GROUNDSKEEPER Paperwork. Due on due Goal FIT-DNA. Due on due Goal AST (SGOT). Due on due Goal BUSINESS QUALITY ASSURANCE ANALYST Scanned. Due on due Goal Order Annual PT. Due on due Goal CT-Colonography. Due on due Goal Zoster vaccine ( 1st). Due on due Goal Review Allergy List. Due on due Goal Tobacco Use. Due on due Goal PHQ-9. Due on du e Goal Unhealthy drug u se screening. Due on due Goal Hepatitis C scre ening. Due on due Goal Medication Recon ciliation. Due on due Goal Lipid panel. Due on due Goal Weight. Due on d ue Goal Update Social Hi story. Due on due Goal FIT. Due on due Goal Zoster vaccine ( 1st). Due on due Goal Update Social Hi story. Due on due Goal Tobacco Use. Due on due Goal CT-Colonography. Due on due Goal Lipid panel. Due on due Goal FIT-DNA. Due on due Goal Unhealthy drug u se screening. Due on due Goal PHQ-9. Due on du e Goal Medication Recon ciliation. Due on due Goal HPV. Due on due Goal AST (SGOT). Due on due Goal MAINTENANCE GROUNDSKEEPER Paperwork. Due on due Goal Hepatitis C scre ening. Due on due Goal FIT. Due on due Goal BUSINESS QUALITY ASSURANCE ANALYST Scanned. Due on due Goal Height. Due on d ue Goal Weight. Due on d ue Goal Review Allergy List. Due on due Goal UDT. Due on due Goal ALT (SGPT). Due on due Goal OARS. Due on due Goal Order Annual PT. Due on due Goal Creatinine. Due on due Goal BUSINESS QUALITY ASSURANCE ANALYST Scanned. Due on due Goal Lipid panel. Due on due Goal FIT-DNA. Due on due Goal FIT. Due on due Goal ALT (SGPT). Due on 20 due Goal Weight. Due on d ue Goal OARS. Due on due Goal Height. Due on d ue Goal HPV. Due on due Goal Unhealthy drug u se screening. Due on due Goal PHQ-9. Due on du e Goal Tobacco Use. Due on due Goal CT-Colonography. Due on due Goal Update Social Hi story. Due on due Goal UDT. Due on due Goal Zoster vaccine ( 1st). Due on due Goal Medication Recon ciliation. Due on due Goal AST (SGOT). Due on due Goal Order Annual PT. Due on due Goal MAINTENANCE GROUNDSKEEPER Paperwork. Due on due Goal Creatinine. Due on due Goal Review Allergy List. Due on due Goal Hepatitis C scre ening. Due on due Goal OARS. Due on due Goal FIT. Due on due Goal BUSINESS QUALITY ASSURANCE ANALYST Scanned. Due on due Goal MAINTENANCE GROUNDSKEEPER Paperwork. Due on due Goal Hepatitis C scre ening. Due on due Goal Tobacco Use. Due on due Goal Zoster vaccine ( 1st). Due on due Goal HPV. Due on [...] PT. Due on due Goal Update Social Hi story. Due on due Goal PHQ-9. Due on du e Goal AST (SGOT). Due on due Goal Review Allergy List. Due on due Goal UDT. Due on due Goal Medication Recon ciliation. Due on due Goal ALT (SGPT). Due on due Goal Medication Recon ciliation. Due on due Goal Order Annual PT. Due on due Goal Lipid panel. Due on due Goal PHQ-9. Due on du e Goal UDT. Due on due Goal Height. Due on d ue Goal OARS. Due on due Goal Update Social Hi story. Due on due Goal CT-Colonography. Due on due Goal HPV. Due on due Goal AST (SGOT). Due on due Goal Zoster vaccine ( 1st). Due on due Goal MAINTENANCE GROUNDSKEEPER Paperwork. Due on due Goal Review Allergy List. Due on due Goal FIT-DNA. Due on due Goal Hepatitis C scre ening. Due on due Goal FIT. Due on due Goal Creatinine. Due on due Goal Unhealthy drug u se screening. Due on due Goal BUSINESS QUALITY ASSURANCE ANALYST Scanned. Due on due Goal Tobacco Use. Due on due Goal Weight. Due on d ue Goal HPV. Due on due Goal MAINTENANCE GROUNDSKEEPER Paperwork. Due on due Goal Tobacco Use. Due on due Goal Zoster vaccine ( 1st). Due on due Goal BUSINESS QUALITY ASSURANCE ANALYST Scanned. Due on due Goal FIT-DNA. Due on due Goal Medication Recon ciliation. Due on due Goal AST (SGOT). Due on due Goal PHQ-9. Due on du e Goal Review Allergy List. Due on due Goal Lipid panel. Due on due Goal OARS. Due on due Goal Hepatitis C scre ening. Due on due Goal Creatinine. Due on due Goal Update Social Hi story. Due on due Goal ALT (SGPT). Due [...] e Goal FIT-DNA. Due on due Goal BUSINESS QUALITY ASSURANCE ANALYST Scanned. Due on due Goal Zoster vaccine ( 1st). Due on due Goal Creatinine. Due on due Goal CT-Colonography. Due on due Goal ALT (SGPT). Due on due Goal HPV. Due on due Goal AST (SGOT). Due on due Goal Lipid panel. Due on due Goal UDT. Due on due Goal MAINTENANCE GROUNDSKEEPER Paperwork. Due on due Goal Height. Due on d ue Goal Update Social Hi story. Due on due Goal OARS. Due on due Goal Unhealthy drug u se screening. Due on due Goal FIT. Due on due Goal Hepatitis C scre ening. Due on due Goal Review Allergy List. Due on due Goal Medication Recon ciliation. Due on due Goal Weight. Due on d ue Goal Tobacco Use. Due on due Goal ALT (SGPT). Due on due Goal Order Annual PT. Due on due Goal OARS. Due on due Goal HPV. Due on due Goal Update Social Hi story. Due on due Goal MAINTENANCE GROUNDSKEEPER Paperwork. Due on due Goal Hepatitis C scre ening. Due on due Goal AST (SGOT). Due on due Goal Medication Recon ciliation. Due on due Goal BUSINESS QUALITY ASSURANCE ANALYST Scanned. Due on due Goal CT-Colonography. Due on due Goal Weight. Due on d ue Goal Lipid panel. Due on due Goal PHQ-9. Due on du e Goal Review Allergy List. Due on due Goal UDT. Due on due Goal Zoster vaccine ( 1st). Due on due Goal Creatinine. Due on due Goal FIT-DNA. Due on due Goal FIT. Due on due Goal Height. Due on d ue Goal Unhealthy drug u se screening. Due on due Goal Tobacco Use. Due on due Goal Review Allergy List. Due on due Goal Medication Recon ciliation. Due on due Goal Hepatitis C scre ening. Due on due Goal Weight. Due on [...] panel. Due on due Goal Update Social Hi story. Due on due Goal PHQ-9. Due on du e Goal Order Annual PT. Due on due Goal BUSINESS QUALITY ASSURANCE ANALYST Scanned. Due on due Goal Zoster vaccine ( ). Due on due Goal OARS. Due on due Goal MAINTENANCE GROUNDSKEEPER Paperwork. Due on due Goal CT-Colonography. Due on due Goal Zoster vaccine ( 1st). Due on due Goal FIT. Due on due Goal Update Social Hi story. Due on due Goal OARS. Due on due Goal ALT (SGPT). Due on due Goal Order Annual PT. Due on due Goal UDT. Due on due Goal BUSINESS QUALITY ASSURANCE ANALYST Scanned. Due on due Goal Tobacco Use. Due on due Goal Height. Due on d ue Goal AST (SGOT). Due on due Goal Unhealthy drug u se screening. Due on due Goal Hepatitis C scre ening. Due on due Goal PHQ-9. Due on du e Goal HPV. Due on due Goal Lipid panel. Due on due Goal Medication Recon ciliation. Due on due Goal FIT-DNA. Due on due Goal Creatinine. Due on due Goal Weight. Due on d ue Goal MAINTENANCE GROUNDSKEEPER Paperwork. Due on due Goal Review Allergy List. Due on due Goal CT-Colonography. Due on due Goal Hepatitis C scre ening. Due on due Goal CT-Colonography. Due on due Goal FIT. Due on due Goal Order Annual PT. Due on due Goal Medication Recon ciliation. Due on due Goal ALT (SGPT). Due on due Goal Zoster vaccine ( ). Due on due Goal UDT. Due on due Goal Lipid panel. Due on due Goal Height. Due on d ue Goal OARS. Due on due Goal AST (SGOT). Due on due Goal FIT-DNA. Due on due Goal MAINTENANCE GROUNDSKEEPER Paperwork. Due on due Goal PHQ-9. Due on du e Goal Unhealthy drug u se screening. Due on due Goal Creatinine. Due on due Goal HPV. Due on due Goal Tobacco Use. Due on due Goal Update Social Hi story. Due on due Goal BUSINESS QUALITY ASSURANCE ANALYST Scanned. Due on due Goal Review Allergy List. Due on due Goal Weight. Due on d ue Goal Unhealthy drug u se screening. Due on due Goal Update Social Hi story. Due on due Goal FIT. Due on due Goal Zoster vaccine ( ). Due on due Goal Lipid panel. Due on due Goal Medication Recon ciliation. Due on due Goal HPV. Due on due Goal AST (SGOT). Due on due Goal Tobacco Use. Due on due Goal CT-Colonography. Due on due Goal Weight. Due on d ue Goal BUSINESS QUALITY ASSURANCE ANALYST Scanned. Due on due Goal ALT (SGPT). Due on due Goal OARS. Due on due Goal UDT. Due on due Goal Height. Due on d ue Goal FIT-DNA. Due on due Goal Creatinine. Due on due Goal Hepatitis C scre ening. Due on due Goal MAINTENANCE GROUNDSKEEPER Paperwork. Due on due Goal PHQ-9. Due on du e Goal Review Allergy List. Due on due Goal Order Annual PT. Due on due Goal Review Allergy List. Due on due Goal FIT-DNA. Due on due Goal Zoster vaccine ( 1st). Due on due Goal Lipid panel. Due on due Goal Order Annual PT. Due on due Goal Hepatitis C scre ening. Due on due Goal Weight. Due on d ue Goal MAINTENANCE GROUNDSKEEPER Paperwork. Due on due Goal Medication Recon ciliation. Due on due Goal Unhealthy drug u se screening. Due on due Goal OARS. Due on due Goal Update Social Hi story. Due on due Goal FIT. Due on due Goal PHQ-9. Due on du e Goal UDT. Due on due Goal Creatinine. Due on due Goal BUSINESS QUALITY ASSURANCE ANALYST Scanned. Due on due Goal ALT (SGPT). Due on due Goal Tobacco Use. Due on due Goal AST (SGOT). Due on due Goal Height. Due on d ue Goal HPV. Due on due Goal CT-Colonography. Due on due Goal FIT. Due on due Goal Review Allergy List. Due on due Goal Order Annual PT. Due on due Goal BUSINESS QUALITY ASSURANCE ANALYST Scanned. Due on due Goal AST (SGOT). Due on due Goal HPV. Due on due Goal ALT (SGPT). Due on due Goal Height. Due on d ue Goal Tobacco Use. Due on due Goal FIT-DNA. Due on due Goal Unhealthy drug u se screening. Due on due Goal Hepatitis C scre ening. Due on due Goal Zoster vaccine ( 1st). Due on due Goal Weight. Due on d ue Goal Medication Recon ciliation. Due on due Goal CT-Colonography. Due on due Goal UDT. Due on due Goal Lipid panel. Due on due Goal Creatinine. Due on due Goal OARS. Due on due Goal Update Social Hi story. Due on due Goal MAINTENANCE GROUNDSKEEPER Paperwork. Due on due Goal PHQ-9. Due on du e Goal CT-Colonography. Due on due Goal Update Social Hi story. Due on due Goal FIT-DNA. Due on due Goal Order Annual PT. Due on due Goal Medication Recon ciliation. Due on due Goal HPV. Due on due Goal ALT (SGPT). Due on due Goal Lipid panel. Due on due Goal Tobacco Use. Due on due Goal Unhealthy drug u se screening. Due on due Goal OARS. Due on due Goal Zoster vaccine ( 1st). Due on due Goal Weight. Due on d ue Goal Height. Due on d ue Goal Hepatitis C scre ening. Due on due Goal AST (SGOT). Due on due Goal UDT. Due on due Goal FIT. Due on due Goal MAINTENANCE GROUNDSKEEPER Paperwork. Due on due Goal Creatinine. Due on due Goal PHQ-9. Due on du e Goal BUSINESS QUALITY ASSURANCE ANALYST Scanned. Due on due Goal Review Allergy List. Due on due Goal ALT (SGPT). Due on due Goal AST (SGOT). Due on due Goal Weight. Due on d ue Goal Order Annual PT. Due on due Goal Update Social Hi story. Due on due Goal UDT. Due on due Goal Tobacco Use. Due on due Goal MAINTENANCE GROUNDSKEEPER Paperwork. Due on due Goal BUSINESS QUALITY ASSURANCE ANALYST Scanned. Due on due Goal Zoster vaccine ( 1st). Due on due Goal Lipid panel. Due on due Goal Unhealthy drug u se screening. Due on due Goal Medication Recon ciliation. Due on due Goal FIT-DNA. Due on due Goal OARS. Due on due Goal Creatinine. Due on due Goal CT-Colonography. Due on due Goal Height. Due on d ue Goal PHQ-9. Due on du e Goal Hepatitis C scre ening. Due on due Goal Review Allergy List. Due on due Goal FIT. Due on due Goal HPV. Due on due Goal AST (SGOT). Due on due Goal Order Annual PT. Due on due Goal Tobacco Use. Due on due Goal Lipid panel. Due on due Goal Medication Recon ciliation. Due on due Goal Update Social Hi story. Due on due Goal Review Allergy List. Due on due Goal ALT (SGPT). Due on due Goal Creatinine. Due on due Goal CT-Colonography. Due on due Goal UDT. Due on due Goal Weight. Due on d ue Goal BUSINESS QUALITY ASSURANCE ANALYST Scanned. Due on due Goal Height. Due on d ue Goal MAINTENANCE GROUNDSKEEPER Paperwork. Due on due Goal Unhealthy drug u se screening. Due on due Goal OARS. Due on due Goal FIT. Due on due Goal Hepatitis C scre ening. Due on due Goal Zoster vaccine ( ). Due on due Goal FIT-DNA. Due on due Goal PHQ-9. Due on du e Goal HPV. Due on due Goal OARS. Due on due Goal Creatinine. Due on due Goal ALT (SGPT). Due on due Goal MAINTENANCE GROUNDSKEEPER Paperwork. Due on due Goal BUSINESS QUALITY ASSURANCE ANALYST Scanned. Due on due Goal Unhealthy drug u se screening. Due on due Goal Order Annual PT. Due on due Goal Height. Due on d ue Goal AST (SGOT). Due on due Goal UDT. Due on due Goal Lipid panel. Due on due Goal Update Social Hi story. Due on due Goal Tobacco Use. Due on due Goal PHQ-9. Due on du e Goal FIT-DNA. Due on due Goal Hepatitis C scre ening. Due on due Goal Zoster vaccine ( ). Due on due Goal HPV. Due on due Goal CT-Colonography. [...] ue Goal CT-Colonography. Due on due Goal BUSINESS QUALITY ASSURANCE ANALYST Scanned. Due on due Goal OARS. Due on due Goal Height. Due on d ue Goal UDT. Due on due Goal Update Social Hi story. Due on due Goal PHQ-9. Due on du e Goal MAINTENANCE GROUNDSKEEPER Paperwork. Due on due Goal Creatinine. Due on due Goal FIT-DNA. Due on due Goal FIT. Due on due Goal Zoster vaccine ( 1st). Due on due Goal Hepatitis C scre ening. Due on due Goal HPV. Due on due Goal Unhealthy drug u se screening. Due on due Goal Lipid panel. Due on due Goal PHQ-9. Due on du e Goal Update Social Hi story. Due on due Goal UDT. Due on due Goal MAINTENANCE GROUNDSKEEPER Paperwork. Due on due Goal Height. Due on d ue Goal OARS. Due on due Goal BUSINESS QUALITY ASSURANCE ANALYST Scanned. Due on due Goal Weight. Due [...] Medication Recon ciliation. Due on due Goal MAINTENANCE GROUNDSKEEPER Paperwork. Due on due Goal Creatinine. Due on due Goal Weight. Due on d ue Goal AST (SGOT). Due on due Goal BUSINESS QUALITY ASSURANCE ANALYST Scanned. Due on due Goal Tobacco Use. Due on due Goal Review Allergy List. Due on due Goal PHQ-9. Due on du e Goal OARS. Due on due Goal Update Social Hi story. Due on due Goal UDT. Due on due Goal Order Annual PT. Due on due Goal Height. Due on d ue Goal UDT. Due on due Goal ALT (SGPT). Due on due Goal BUSINESS QUALITY ASSURANCE ANALYST Scanned. Due on due Goal OARS. Due on due Goal MAINTENANCE GROUNDSKEEPER Paperwork. Due on due Goal Medication Recon ciliation. Due on due Goal Tobacco Use. Due on due Goal Update Social Hi story. Due on due Goal AST (SGOT). Due [...] Review Allergy List. Due on due Goal MAINTENANCE GROUNDSKEEPER Paperwork. Due on due Goal BUSINESS QUALITY ASSURANCE ANALYST Scanned. Due on due Goal OARS. Due on due Goal Update Social Hi story. Due on due Goal Tobacco Use. Due on due Goal Height. Due on d ue Goal Weight. Due on d ue Goal Height. Due on d ue Goal PHQ-9. Due on du e Goal Weight. Due on d ue Goal Medication Recon ciliation. Due on due Goal BUSINESS QUALITY ASSURANCE ANALYST Scanned. Due on due Goal Review Allergy List. Due on due Goal Update Social Hi story. Due on due Goal ALT (SGPT). Due on due Goal OARS. Due on due Goal Tobacco Use. Due on due Goal AST (SGOT). Due on due Goal Creatinine. Due on due Goal MAINTENANCE GROUNDSKEEPER Paperwork. Due on due Goal Order Annual PT. Due on due Goal UDT. Due on due Goal ALT (SGPT). Due on due Goal MAINTENANCE GROUNDSKEEPER Paperwork. Due on due Goal BUSINESS QUALITY ASSURANCE ANALYST Scanned. Due on due Goal OARS. Due on due Goal PHQ-9. Due on du e Goal UDT. Due on due Goal Tobacco Use. Due on due Goal Medication Recon ciliation. Due on due Goal Review Allergy List. Due on due Goal AST (SGOT). Due on due Goal Order Annual PT. Due on due Goal Creatinine. Due on due Goal Height. Due on d ue Goal Weight. Due on d ue Goal Update Social Hi story. Due on due Goal ALT (SGPT). Due on due Goal MAINTENANCE GROUNDSKEEPER Paperwork. Due on due Goal UDT. Due on due Goal Order Annual PT. Due on due Goal BUSINESS QUALITY ASSURANCE ANALYST Scanned. Due on due Goal OARS. Due on due Goal Height. Due on d ue Goal Review Allergy List. Due on due Goal Tobacco Use. Due on due Goal Update Social Hi story. Due on due Goal AST (SGOT). Due on due Goal Creatinine. Due on due Goal Weight. Due on d ue Goal Medication Recon ciliation. Due on due Goal PHQ-9. Due on du e Goal BUSINESS QUALITY ASSURANCE ANALYST Scanned. Due on due Goal Review Allergy List. Due on due Goal Medication Recon ciliation. Due on due Goal PHQ-9. Due on du e Goal Weight. Due on d ue Goal Order Annual PT. Due on due Goal AST (SGOT). Due on due Goal UDT. Due on due Goal Height. Due on d ue Goal MAINTENANCE GROUNDSKEEPER Paperwork. Due on due Goal OARS. Due on due Goal Creatinine. Due on due Goal Update Social Hi story. Due on due Goal ALT (SGPT). Due on due Goal Tobacco Use. Due on due Goal MAINTENANCE GROUNDSKEEPER Paperwork. Due on due Goal UDT. Due on due Goal PHQ-9. Due on du e Goal Review Allergy List. Due on due Goal Medication Recon ciliation. Due on due Goal Order Annual PT. Due on due Goal BUSINESS QUALITY ASSURANCE ANALYST Scanned. Due on due Goal Tobacco Use. Due on due Goal ALT (SGPT). Due on due Goal Height. Due on d ue Goal OARS. Due on due Goal Update Social Hi story. Due on due Goal Creatinine. Due on due Goal Weight. Due on d ue Goal AST (SGOT). Due on due Goal MAINTENANCE GROUNDSKEEPER Paperwork. Due on due Goal Creatinine. Due on due Goal BUSINESS QUALITY ASSURANCE ANALYST Scanned. Due on due Goal OARS. Due on due Goal Tobacco Use. Due on due Goal Order Annual PT. Due on due Goal ALT (SGPT). Due on due Goal Medication Recon ciliation. Due on due Goal Height. Due on d ue Goal Update Social Hi story. Due on due Goal AST (SGOT). Due on due Goal Review Allergy List. Due on due Goal UDT. Due on due Goal PHQ-9. Due on du e Goal Weight. Due on d ue Goal Update Social Hi story. Due on due Goal OARS. Due on due Goal AST (SGOT). Due on due Goal Creatinine. Due on due Goal BUSINESS QUALITY ASSURANCE ANALYST Scanned. Due on due Goal Height. Due on d ue Goal Review Allergy List. Due on due Goal MAINTENANCE GROUNDSKEEPER Paperwork. Due on due Goal UDT. Due [...] Due on du e Goal Update Social Hi story. Due on due Goal Weight. Due on d ue Goal Creatinine. Due on 17 due Goal UDT. Due on due Goal MAINTENANCE GROUNDSKEEPER Paperwork. Due on due Goal BUSINESS QUALITY ASSURANCE ANALYST Scanned. Due on due Goal Tobacco Use. Due on due Goal AST (SGOT). Due on due Goal ALT (SGPT). Due on due Goal Review Allergy List. Due on due Goal OARS. Due on due Goal Medication Recon ciliation. Due on due Goal Height. Due on d ue Goal MAINTENANCE GROUNDSKEEPER Paperwork. Due on due Goal AST (SGOT). Due on due Goal Weight. Due on d ue Goal PHQ-9. Due on du e Goal BUSINESS QUALITY ASSURANCE ANALYST Scanned. Due on due Goal Order Annual PT. Due on due Goal Update Social Hi story. Due on due Goal Review Allergy List. Due on due Goal Medication Recon ciliation. Due on due Goal Creatinine. Due on 17 due Goal ALT (SGPT). Due on due Goal Tobacco Use. Due on due Goal UDT. Due on due Goal OARS. Due on due Goal ALT (SGPT). Due on due Goal AST (SGOT). Due on due Goal Order Annual PT. Due on due Goal Height. Due on d ue Goal MAINTENANCE GROUNDSKEEPER Paperwork. Due on due Goal Creatinine. Due on due Goal Weight. Due on d ue Goal Review Allergy List. Due on due Goal BUSINESS QUALITY ASSURANCE ANALYST Scanned. Due on due Goal OARS. Due on due Goal UDT. Due on due Goal Medication Recon ciliation. Due on due Goal PHQ-9. Due on du e Goal Tobacco Use. Due on due Goal Update Social Hi story. Due on due Goal Medication Recon ciliation. Due on due Goal Review Allergy List. Due on due Goal ALT (SGPT). Due on due Goal OARS. Due on due Goal Update Social Hi story. Due on due Goal Weight. Due on d ue Goal MAINTENANCE GROUNDSKEEPER Paperwork. Due on due Goal Height. Due on d ue Goal Tobacco Use. Due on due Goal PHQ-9. Due on du e Goal BUSINESS QUALITY ASSURANCE ANALYST Scanned. Due on due Goal UDT. Due on due Goal Order Annual PT. Due on due Goal AST (SGOT). Due on 20 due Goal Creatinine. Due on 17 due Referral Ordered: CT LUMBAR SPINE W/O DYE Bilateral ordered Appointment Ramona Sanders BOOKED Appointment Ramona Sanders BOOKED Future Order: Lab Order Drug [facility] t Def 22+ Classes (G0483), Ordered on: Ordered Future Order: Lab Order COMPLIAN CE DRUG ANALYSIS, URINE, WITH MED REPORT ([id number]), Ordered on: Ordered Future Order: Lab Order Drug [facility] t Def 22+ Classes (G0483), Ordered on: Ordered Future Order: Lab Order COMPLIAN CE DRUG ANALYSIS, URINE, WITH MED REPORT ([id number]), Ordered on: Ordered Future Order: Lab Order Drug [facility] t Def 22+ Classes (G0483), Ordered on: Ordered Future Order: Lab Order COMPLIAN CE DRUG ANALYSIS, URINE, WITH MED REPORT ([id number]), Ordered on: Ordered History Of Present Illness Encounter Date Complaint History Of Prese nt Illness Comments: Ramona presents here today for a virtual follow up and medication management in regard to chronic back and BL knee pain. Pain has been worse since last OV.States she has been having increased pain in her right knee and is interested in repeating a genicular ablation when able. She had been receiving pain relief from the previous ablation on 06/16/23 until around 2 weeks ago when her pain started to return, though not quite to baseline. She is still receiving pain relief in her left knee.Shares she met with her surgeon to discuss the lack of pain relief from her surgery in 09/2023. She was told her pain is largely affected by her diet and was instructed to go on an anti-inflammatory diet. She does not think this is true and is frustrated about this suggestion. She will update her lumbar imaging and f/u with her surgeon in 1 month. She recently started Ozempic which has stabilized her blood sugar levels, dropping her levels from >100 to ~80. Requests a lidocaine patch refill today. Reports current medication regimen provides 40% pain relief and allows for increased functionality. Denies any side effects with current medication. No other concerns today. Back Pain Severity level i s 8. The problem is worsening. Location of pain is lower back and right knee. Comments: Ramona presents in clinic for a follow up and medication refill regarding chronic back pain and BL knee pain. Her pain has continued to be worse since SYD.Reports the procedure in September was a hardware removal to alleviate pain in her legs. Since this procedure, she has been experiencing sciatica. She has just gotten the ganesh removed yesterday and has a follow up with her surgeon scheduled in November.She presents on track with her prescribed medications today. Current medication regimen provides sufficient pain relief and allows for increased functionality. Denies any SEs from current regimen. No other concerns today. Back Pain Severity level i s 7. Duration: chronic. The problem is worsening. It occurs persistently. Location of pain is lower back and legs. The client describes the pain as an ache, burning and sharp. Symptoms are aggravated by ascending stairs, descending stairs, lifting, twisting, prolonged positioning and movement. Symptoms are relieved by pain meds/drugs, sitting and changing positions. Back Pain Severity level i s 10. Duration: chronic. The problem is worsening. Location of pain is lower back. Comments: Ramona presents virtually via [facility] for a follow up and medication refill regarding chronic back pain and BL knee pain. Her pain has been worse since SYD.Currently pursuing hardware removal surgery w/ Dr. Sawyer on her low back and neck scheduled for 09/23/23. She would like to move up her next OV prior to surgery. Her BL genicular RFA completed on 06/16/23 provide 80% pain relief, although notes fluctuations in weather persistently flare her pain despite the procedure. Current medication regimen continues to provide 40% pain relief and allows for increased functionality. Denies any SEs from current regimen. No other concerns today. Back pain Severity level i s 8. Duration: chronic. The problem is worsening. It occurs persistently. Location of pain is lower back and neck. Symptoms are relieved by pain meds/drugs. Back Pain Severity level i s 8. Duration: chronic. The problem is fluctuating. Location of pain is lower back and neck. The client describes the pain as an ache and burning. Symptoms are aggravated by bending, sitting, prolonged positioning and housework. Symptoms are relieved by pain meds/drugs. Comments: Ramona presents in clinic for a follow up and medication refill regarding chronic back pain and BL knee pain. Her pain has been fluctuating since SYD.Reports that she had gotten blisters from a new pair of sandals. States that the blisters had popped and gotten infected which had caused a significant amount of pain. Notes she was up all night d/t the pain.Mentions she has developed neck pain that is located on both sides of her neck and radiate up to the base of her skull. States changing positions does not relieve the pain.Notes one knee will flare up occasionally. Unsure whether fluctuations in the weather are causing this. Planning on repeating the BL genicular RFA when pain starts to return more consistently.She presents on track with her prescribed medications today. Current medication regimen continues to provide 50% pain relief and allows for increased functionality. Denies any SEs from current regimen. No other concerns today. Comments: Ramona presents via [facility] for a virtual follow up and medication refill regarding chronic back pain and BL knee pain. Her pain has been worse since SYD, aggravated by the rainy weather. S/p BL genicular nerve RFA on 06/16/2023 with 80% relief. Shares that she was able to walk her dog for the first time in 9 months. Reports that she completed a lumbar CT this month which was uncomfortable. She is scheduled to consult with her surgeon Dr. Sawyer on 07/24/2023. Current medication regimen provides 50% pain relief and allows for increased functionality. She would like to hold off on another taper until after she sees her surgeon. Denies any SEs from current regimen. No other concerns today. Back pain Severity level i s 8. Duration: chronic. The problem is worsening. Location of pain is lower back. Comments: Ramona presents via [facility] for a virtual follow up and medication refill regarding chronic back pain and BL knee pain. Her pain has been worse since SYD.She is scheduled for the genicular RFA on 06/16/23. States that she experienced around 3 hours of pain relief from the work ups. Inquires about how long pain relief will last with the ablation.Reports that she had a back injection previously that had not provided any relief. She had an Xray taken where she was told that her hardware is causing her pain. She is scheduled for a CT later this week and is waiting for what this shows before making any decisions.Current medication regimen provides 40% pain relief and allows for increased functionality. Denies any SEs from current regimen. No other concerns today. Back Pain Severity level i s 7. Duration: chronic. The problem is worsening. Location of pain is lower back and BL knees. Back Pain Severity level i s 6. Duration: chronic. Comments: Ramona presents in person for follow up and medication refill regarding chronic back pain. Also endorses low back and BL knee pain. Recently saw [facility] for BL knee pain, states she was told she has a torn meniscus in both knees, but was told there is nothing else they can do for her. She has a second opinion at [facility] next week. If they don't have other options, she will consider genicular nerve RFW. Low back pain continues to be bothersome. She will be having an injection here next week, ordered by [facility]. They typically order injections to be done through [facility], however she is wanting to do it here for MAC sedation. She alternates ice and heat on the low back, but states this interferes with her daily living as it is inconvenient. She has been waking up with headaches for about 2 weeks. Pain is mostly in the temples and the base of the neck. Pain tends to improve throughout the day after Tylenol. She will be seeing [facility] in [place] next week - states since her most recent spine surgery in 2021, her abdomen has been hard. States she has previously seen PCP and surgeon, had an XR done and was told she was constipated. She doesn't feel like she is constipated, as she has a BM every day. Takes Linzess once/day and Senna at night. She reports current medication regimen provide around 70% pain relief and allows for increased functionality. States the medication is more for the low back pain, reports it doesn't touch the knee pain.No other concerns expressed. Back Pain Severity level i s 7. Duration: chronic. The problem is worsening. Location of pain is lower back. Comments: Ramona presents via [facility] for a virtual follow up and medication refill regarding chronic back pain. Also endorses low back and BL knee pain. Her pain has remained worse since SYD.Reports that PT has not been going well. States that it has been causing more pain in her right knee. She now has an appointment with [facility] to consult on her pain. Notes that she is not interested in any more surgeries, but would be looking to get some kind of injection. Mentions that her doctor had previously recommended a nerve block.States that she has an appointment with her aerotriangulation specialist on 04/10/23. Notes she has continued to experience a burning sensation in her low back. Reports that this sensation used to be intermittent after her procedure but now has progressed to a constant burning.Current medication regimen continues to provide around 40% pain relief abd allows for increased functionality. Denies any SEs from current regimen. Notes Linzess has been working much better since previous increase. No other concerns today. Back Pain Severity level i s 7. Duration: chronic. The problem is worsening. Location of pain is lower back. Comments: Ramona presents via [facility] for a virtual follow up and medication refill regarding chronic back pain. Also c/o low back and BL knee pain. Her pain has continued to be worse since SYD.Reports that she has heard back from [facility]. States that something showed up in the imaging for her knees but she cannot remember what it was. It was recommended that she do PT and if that doesn't help she should pursue surgery. Her first PT appointment is scheduled for 03/05/23.Mentions her right calf has been really swollen for 2 weeks. States it is almost twice the size of her left calf. Endorses pain in the swollen calf. Notes she thought she might have injured it while stretching but is unsure at this point. Also endorses a burning sensation in her low back. Was not able to go to the appointment regarding this area of pain as she had COVID during the scheduled time.Inquires a referral for a neurologist. States she has been dealing with an issue where she will randomly pass out. Mentions she had passed out in the parking lot of [employer] for an hour and awoke to a police patrol officer banging on her window.Current medication regimen continues to provide around 40% pain relief. Denies any SEs from current medication regimen, besides OIC. No other concerns today. Comments: Ramona presents in clinic for a follow up and medication refill regarding chronic back pain. Also c/o low back and BL knee pain. Her pain has been worse since SYD.Reports she met with [facility] yesterday. Dr. Manuel had ordered an MRI for her knee as he believes he will be able to see more from this kind of imaging. She does have the option to have surgery but denies at this time as she would just like to figure out what the underlying issue in her knee is.She presents on track with her prescribed medications today. Current medication regimen continues to provide around 40% pain relief. Denies any SEs from current medication regimen, besides OIC. Mentions she had been taking Linzess but had d/c as it had not provided any benefit. Inquires if there is a higher dosage of this. Notes Senna had been beneficial for OIC. Notes she doesn't use Tizianidine that often but has been using it recently for other issues. Requests a refill at this time. No other concerns today. Back Pain Severity level i s 8. Duration: chronic. The problem is worsening. It occurs persistently. Location of pain is lower back and BL knees. The client describes the pain as burning and sharp. Symptoms are aggravated by bending, lifting, standing, twisting, prolonged positioning and rising from sitting. Symptoms are relieved by heat, ice, pain meds/drugs and rest. Back Pain Severity level i s 8. Duration: chronic. Location of pain is lower back and BL knees. Comments: Ramona presents via [facility] for a virtual follow up and medication refill regarding chronic back pain. Also c/o low back and BL knee pain. Her pain has remained relatively stable since [facility].Expresses an interest in getting a referral to [facility] again. States that if she is scheduled with the same provider she had last time, she will ask for a different one as she didn't have a good experience with this provider.Mentions she hasn't gotten adequate sleep recently d/t the pain in her legs and restless leg syndrome. Also inquires if she could get another form for a handicap sign mailed to her as she lost her previous one.Current medication regimen continues to provide around 40% pain relief. Denies any SEs from current medication regimen, besides OIC. No other concerns today. Back Pain Severity level i s 8. Duration: chronic. The problem is worsening. It occurs persistently. Location of pain is lower back and BL knees. Comments: Ramona presents via [facility] for a virtual follow up and medication refill regarding chronic back pain. C/o low back and BL knee pain. Her pain continues to be worse since [facility].S/p BL knee joint injection on 11/26/22. Reports no pain relief from this injection. Endorses a firey pain in both of her knees still.Mentions PT went well.She presents on track with her prescribed medications today. Current medication regimen provides around 40% pain relief. Denies any SEs from current medication regimen, besides OIC. No other concerns today. lumbago/knees Patient is a 62 year old female presenting with complaints of chronic low back and bilateral knee pain that has been on going for many years. She notes good days and really bad days. She notes that most of her pain is localized to her lumbar spine without radiation. She notes burning pain and muscle spasm in her thoracolumbar spine. Patient notes associated weakness. She notes that her pain flairs a couple of times/week. Her symptoms are unpredictable, but severe. Symptoms are somewhat relieved with pain medication, lying down flat, and resting. She has tried multiple different interventions, including physical therapy but has experienced severe increases in pain. She notes that her current level of discomfort limits everything she is able to do each day and is currently limiting her overall quality of life. She would like to decrease her overall discomfort to allow her to perform her daily, functional activities with less limitation and an improved quality of life. Comments: Ramona presents in clinic for a follow up and medication refill regarding chronic back pain. Her pain has been worse since SYD. Knee pain continues to be bothersome.Reports she went to [facility] regarding her knee pain. She endorsed deep pain in the tissue. She had received an XR where the [facility] specialist had said that everything looked fine but her PCP had seen something small where they thought it could have been arthritis. States her knee had been inflamed and swollen. Had been icing to reduce inflammation and pain. Expresses an interest in a repeat knee joint injection as she had found great relief from it.Mentions she has an appointment with [facility] on 11/13/22 regarding the burning pain she has been experiencing in her back.Notes she had tried PT twice for her back and each session had significantly increased her pain. She was supposed to complete 6 sessions but was not able to d/t the increased pain.She presents on track with her prescribed medications today. Current medication regimen provides around 50% pain relief. States medications have helped with RLS. Notes medication doesn't provide relief to knee pain. Denies side effects from current medication regimen, besides OIC. No other concerns today. Back Pain Severity level i s 7. Duration: chronic. The problem is worsening. It occurs persistently. Location of pain is lower back and right knee. The client describes the pain as burning and sharp. Symptoms are aggravated by ascending stairs, descending stairs, lifting, sitting, twisting, walking, prolonged positioning, rising from sitting and squatting. Symptoms are relieved by pain meds/drugs. Back Pain Severity level i s 8. Duration: chronic. The problem is worsening. It occurs persistently. Location of pain is lower back and BL knees. Comments: Ramona presents via [employer] for a virtual follow up and medication [...] knee. She is hoping to go to [facility] tomorrow.Current medication regimen provides around 40% pain relief. Denies side effects from current medication regimen, besides OIC. No other concerns today. Back Pain Severity level i s 7. Duration: chronic. The problem is worsening. It occurs persistently. Location of pain is lower back. Comments: Ramona presents via [employer] for a virtual follow-up and medication refill [...] experiencing spasms.S/p lumbar sx on 01/16/22 at [facility], and continues to be in the healing process. F/u for a second opinion with [facility] on 04/11/22 who recommended lumbar CARLOS. [...] s/p back surgery, completed on 01/16/22 at [facility], and continues to be in the healing process. Scheduled for a second opinion with [facility] on 04/11. Current medication regimen provides [...] s/p back surgery, completed on 01/16/22 at [facility], and continues to be in the healing process. Patient states she is actively seeking a second opinion with [facility] regarding her back.Current medication regimen provides [...] pain. S/p back surgery on 01/16 at [facility], patient is still experiencing post-op pain. States [...] to worsen.Upcoming back surgery on 01/16 at [facility]. May also needs an additional surgery for [...] financially burdening for her to purchase it [id number]. Endorses OIC, managed with [employer]. Denies other side effects from current medication regimen. No other concerns today. Comments: Ramona presents for a virtual follow [...] lying down, pain meds/drugs, rest and walking. back pain Severity level i s 9. [...] other concerns today. Comments: Ramona presents via [employer] for virtual follow up and medication refill.Recently [...] meds/drugs and rest. Comments: Ramona presents via [employer] for virtual follow up and medication refill.States [...] booster. No other concerns today. Back Pain Severity [...] meds/drugs and rest. Back Pain (comments) Ramona cocrhans for a virtual follow up and medications [...] and changing positions. Back Pain (comments) Ramona pres akers for a virtual follow up and medications [...] concerns today. Back Pain (comments) Ramona pres akers for a virtual follow up and medications [...] morning. Plans to mail consent form for [place] medical [place] program to [facility].No other concerns today. Back Pain Severity [...] reasons. No other concerns today. Back Pain Severity [...] scan and will be following up with [facility] in 2 weeks to review the [...] long after the surgery. Expresses frustrations with [facility] not providing her the proper [...] though not interested in [facility].No other concerns today. Back Pain (comments) Patient [...] on 09/30.No other concerns today. Back Pain (comments) Patient [...] are relieved by changing positions. Back Pain Severity level i [...] the past.No other concerns today. Back Pain (comments) Patient [...] today. No other concerns today. Back Pain Severity [...] side. No other concerns today. Back Pain (comments) [...] persistent and chronic. She met with her aerotriangulation specialist who reviewed her recent lumbar MRI [...] medication regimen.No other concerns today. Back Pain Severity level [...] pt c/o of scheduling difficulty. Back Pain (comments) Ramona is h ere [...] She will be starting with a personal banking officer on Friday. Back Pain Severity level i [...] changing positions, prolonged positioning and sitting in palliative medicine physician at particular angle. Back Pain (comments) Ramona [...] changes. No other concerns today. Back Pain Severity [...] medication. No other concerns today. Back Pain (comments) [...] meds/drugs and rest. Back Pain (comments) Patient has #7 oxycodone and #5 OxyContin remaining today - on track. Reports 50-60% relief from the medication and improves function. Has been a pretty manageable month, but cold and dampness has been making joint aches and back worse. Current medication regimen has been manageable. No concerns today. Back Pain Severity level i s 5-8. Duration: chronic. The problem is fluctuating. It occurs persistently. The patient describes the pain as an ache and sharp. Symptoms are aggravated by bending, lifting, twisting and prolonged positioning. Symptoms are relieved by pain meds/drugs, rest and sitting. Back Pain (comments) Ramona is h ere [...] to wait on getting neck injections at [facility] because her pain is tolerable as of now. She says she joined [employer] gym and works out everyday, which has seemed to help loosen up her back. No other concerns at this time. Back Pain Severity level i s moderate. Duration: chronic. The problem is improving. It occurs persistently. Location of pain is lower back.There is no radiation of pain. The patient describes the pain as an ache and sharp. Symptoms are aggravated by bending, changing positions, lifting, running, sitting and twisting. Symptoms are relieved by pain meds/drugs, rest and walking. Back Pain (comments) Pain unchan ged in [...] No side effects. Recent dx of diabetes. low back pain Severity level i s [...] to her previous Oxycontin. low back pain Severity level i s [...] relieved by lying down. low back pain (comments) Patient is here [...] continue to be painful - treating at [facility]. Nerve blocks have been ordered at [facility] and if ineffective, will be considering surgery. [...] and numbness. Will be following up with [facility]. low back pain Severity level i [...] relief; denies any SE. Continues to watch [employer]. States her SCS is and never was [...] low back pain Severity level i s -08/19. Duration: chronic. The problem is worsening. It [...] reports that she completed a CT at [facility]. It was recommended she complete myofascial release [...] more hours during the week. Met with [facility] and fusion looks stable. Has been referred for myofascial release at [facility] in [place]. low back pain Severity level i s [...] more often. Will be starting PT in [place] on 02/23/15. Patient has #5 Oxycontin and [...] Back Pain (comments) Patient was referred by [facility]. Patient has a hx of severe lumbar DDD; she had a L4-S1 fusion in April 2011 and revision in February 2014. She also has a hx of cervical fusion in 2010. Neck pain has resolved, she is here today to inquire about treating her low back pain. Patient has a [employer] SCS, though is not currently using it. [...] she knows she will not be driving. [place] is effective for only one hour. She [...] Information Instructions Date Instruction Additional Infor marco Lifestyle education regarding di et Related to Body mass index [BMI] 27.0-27.9, adult Assessments Type Assessment Date No Information Patient Care Teams Name Effective Dates (start - stop) Status Members No Information
[2023-11-30 17:46] LABS: Chloride* 110 mmol/L (96-114); Potassium* 3.5 mmol/L (3.6-5.1); Sodium* 138 mmol/L (135-149)
[2023-11-30 17:49] LABS: Anion Gap 9 mEq/L (7-15); Blood Urea Nitrogen* 14 mg/dL (7-30); Carbon Dioxide* 19 mmol/L (20-32); Creatine Kinase* 58 U/L (41-117); Creatinine* 0.7 mg/dL (0.5-1.5); Est. Creatinine Clearance* 53.16; Estimated Glomerular Filt Rate 98 ml/min; Glucose* 83 mg/dL (60-115)
[2023-11-30 17:50] LABS: Calcium* 8.6 mg/dL (8.4-10.6)
== END 2023-11-30 18:00 | disposition short-term general hospital (02) ==
PROVIDERS: Emergency Provider Family Medicine; PCP Family Medicine
DX: S87.82XA Crushing injury of left lower leg, initial encounter (principal); S87.81XA Crushing injury of right lower leg, initial encounter; V03.09XA Pedestrian with other conveyance injured in collision with car, pick-up truck or van in nontraffic accident, initial encounter; Y92.481 Parking lot as the place of occurrence of the external cause
CPT/HCPCS: 36415; 73562; 73590; 73610; 80048; 82550; 85025; 96374; 96375; 99285; 99291; G0390; J1171; J7030

== ENCOUNTER 2023-11-30 17:48 | Outpatient (CLI) | payer OTHER, MEDICARE, SELFPAY ==
--- OUTSIDE RECORDS SUMMARY | 2023-12-14 02:57 | XMS_ITS | Clinical Summary ---
Author Organization [employer] Address [address] [place], [place] [address] [address] Phone Care Team Providers Care Event Operations Manager Name Role Phone Pcp, No Primary Care Provider Unavailabl e Source Comments [employer] is fully rolled out on [employer]. Last update 07/15/08.[employer] Allergies Active Allergy Reactions Criticality Noted Date [...] mg) by mouth daily. 56 tablet 12/04/19 24 024 Active naloxone (NARCAN) 4 mg/0.1 mL [...] Mon, Wed and Fri. 24 tablet 12/03/19 24 Active polyethylene glycol 3350 (MIRALAX/GLUCOLAX) 17 gm/scoop oral powder Mix 1 tablespoon (17 g) with a full glass of water and drink daily as needed for constipation. 238 g 3 12/03/19 Active Pramipexole Dihydrochloride (MIRAPEX ORAL) Take by mouth. 024 Discontinued(Er ror) oxyCODONE (ROXICODONE) 5 mg oral tablet Take 1 tablet (5 mg) by mouth 3 times daily as needed for Pain.Use on top of chronic opioid regimen for treatment of post-operative pain. 21 tablet 12/03/19 24 024 naloxone (NARCAN) 4 mg/0.1 mL nasal spray [...] complication, without long-term current use of insulin ([facility]) 08/21/2021 History of lumbar fusion 06/27/2020 IBS (irritable bowel syndrome) 06/27/2020 Opioid dependence with current use ([facility]) Lumbar radiculopathy 03/02/2014 Cocaine abuse ([facility]) 03/18/2009 Alcohol abuse 03/18/2009 RLS (restless legs syndrome) 03/18/2009 Encounters Date Type Department Care Team Description 12/01/2023 6:32 AM CDT Anesthesia Event OR P4 [address] [place] [address] Joaquin Herrera MD Teslaa, Polly A RN 12/01/2023 6:15 AM CDT - 12/01/2023 8:23 AM CDT Surgery OR P4 [address] [place] [address] Lotus Varela MD FASCIOTOMY, LOWER EXTREMITY 12/01/2023 Travel 12/01/2023 Orders Only [facility] [place] [facility] Radiology Department DION[facility] [address] [place] [address]. [address] [address] Provider, Outside Referral of patient (Primary Dx) 11/30/2023 6:58 PM CDT - 12/03/2023 3:46 PM CDT Hospital Encounter [facility] Orthopaedic Arden [id number] [place] [address] Gonzalez Engle MD Wright, MD Jigar Bedolla, [...] st Contact Info) Description 12/15/2023 1:00 PM [facility] [address] [place] [address] Scheduled Discharge Disposition: Discharged to home or [...] history exists Imm: Flu (#1) 10/12/2023 11/21/2022, 1009/2020, 11/26/2019, Additional history exists Cervical Cancer Screening Age 30-65 11/22/2027 11/21/2022, 07/28/2017 Imm: DTaP/Tdap (3 - Td or Tdap) 11/25/2029 11/26/2019, [...] syndrome of left lower extremity, initial encounter ([facility]) CT LOW EXTREMITY LEFT NO IV [...] patient PANEL LIPID Routine 03/19/2009 5:24 AM [facility] from Last 3 Months or Most Recently Relevant to Health Maintenance Results * (ABNORMAL) CBC WITH PLTS/AUTO DIFF (12/03/2023 4:29 AM CDT) Only the most recent of3 resultswithin the time period is included. WBC 5.82 4.00 - 10.00 k/cmm [facility] RBC 3.61(L) 3.90 - 5.20 m/cmm [facility] Hgb 9.0(L) 11.5 - 15.7 g/dL [facility] Hematocrit 29.6(L) 34.0 - 45.0 % [facility] MCV 82.0 80.0 - 100.0 fL [facility] MCH 24.9(L) 25.0 - 32.0 pg [facility] MCHC 30.4(L) 31.0 - 36.0 g/dL [facility] RDW 17.2(H) 11.5 - 14.5 % [facility] Plt 192 150 - 400 k/cmm [facility] MPV 9.4 6.5 - 12.5 fL [facility] Automated Abs Neutrophil 3.14 1.70 - 6.50 k/cmm [facility] Comment:Preliminary ANC, Fin al Result to Follow Abs Immature Granulocyte 0.02 0.00 - 0.09 k/cmm [facility] Comment:The Immature Granulo cyte Absolute count contains metamyelocytes and myelocytes. Abs Neutrophil 3.14 1.70 - 6.50 k/cmm [facility] Abs Lymphocyte 1.89 0.80 - 4.00 k/cmm [facility] Abs Monocyte 0.47 0.20 - 1.00 k/cmm [facility] Abs Eosinophil 0.28 0.00 - 0.60 k/cmm [facility] Abs Basophil 0.02 0.00 - 0.20 k/cmm [facility] Blood 12/03/2023 4:29 AM CDT 12/03/2023 5:58 AM CDT Kory Kimball MD LABORATORY Performing Organization Address [facility] Co de Phone Number [facility] [address] [address] * PHOSPHORUS (12/03/2023 4:29 AM CDT) Phosphorus 3.0 2.5 - 4.5 mg/dL [facility] Blood 12/03/2023 4:29 AM CDT 12/03/2023 5:58 AM CDT Kory Kimball MD LABORATORY [facility] [address] [address] * (ABNORMAL) PANEL BASIC METABOLIC (BMP) (12/03/2023 4:29 AM CDT) Only the most recent of2 resultswithin the time period is included. Sodium 143 135 - 148 mmol/L [facility] Potassium 3.5 3.5 - 5.3 mmol/L [facility] Chloride 110(H) 92 - 108 mmol/L [facility] CO2 25 22 - 30 mmol/L [facility] Glucose 130(H) 70 - 100 mg/dL [facility] BUN 14 8 - 23 mg/dL [facility] Creatinine 0.66 0.50 - 1.00 mg/dL [facility] Calcium 8.5(L) 8.8 - 10.2 mg/dL [facility] AnGap 8 8 - 16 mmol/L [facility] eGFR (2020 CKD-EPI) 100 >=60 ml/min/1.7 3m2 [facility] Comment: [...] Kory Kimball MD LABORATORY Performing Organization Address [facility] Co de Phone Number [facility] [address] [address] * MAGNESIUM (12/03/2023 4:29 AM CDT) Magnesium 2.1 1.6 - 2.4 mg/dL [facility] Blood 12/03/2023 4:29 AM CDT 12/03/2023 5:58 AM CDT Kory Kimball MD LABORATORY [facility] [address] [address] * VITAMIN [id number] TO MMA (12/02/2023 4:42 AM CDT) B12 340 211 - 946 pg/mL [facility] Blood 12/02/2023 4:42 AM CDT 12/02/2023 5:19 AM CDT Joaquin Snow MD LABORATORY Performing Organization Address [facility] Co de Phone Number [facility] [address] [address] * (ABNORMAL) TRANSFERRIN (INCLUDES TIBC) (12/02/2023 4:42 AM CDT) Transferrin 230 200 - 360 mg/dL [facility] IBC 343 298 - 536 mcg/dL [facility] Iron Saturation Percent 6(L) 20 - 50 % [facility] Blood 12/02/2023 4:42 AM CDT 12/02/2023 5:19 AM CDT Joaquin Snow MD LABORATORY Performing Organization Address [facility] Co de Phone Number [facility] [address] [address] * (ABNORMAL) IRON (12/02/2023 4:42 AM CDT) Iron 19(L) 35 - 145 mcg/dL [facility] Blood 12/02/2023 4:42 AM CDT 12/02/2023 5:19 AM CDT Joaquin Snow MD LABORATORY Performing Organization Address [facility] Co de Phone Number [facility] [address] [address] * FERRITIN (12/02/2023 4:42 AM CDT) Ferritin 18.0 13.0 - 150.0 ng/mL [facility] Comment: Test Performed by: [facility] [address] [place] [address] Blood 12/02/2023 4:42 AM CDT 12/02/2023 5:19 AM CDT Joaquin Snow MD LABORATORY [facility] [address] [place] [address] * XR SHOULDER RT 2/3V AP/GRASH/Y* (12/01/2023 [...] POC Glucose 108(H) 70 - 100 mg/dL [facility] - POINT OF CARE Blood 12/01/2023 9:07 AM CDT Gonzalez Engle MD LABORATOR Y [facility] - POINT OF CARE [address] [place] [address], * Intubation/Airway (12/01/2023 6:52 AM CDT) Narrative [...] unchanged and oral mucosa unchanged Performed by: RIVER TRANSPORTATION WORKER: Eric Ching APRN, CRNAAnesthesiologist: Emir Bullock MD [...] 390 ms QTC Interval 434 ms P [place] 78 QRS [place] 77 T Wave [place] 76 Narrative Procedure Note Greg Posey MD - 12/01/2023 IMPRESSION SINUS RHYTHM POSSIBLE RIGHT ATRIAL ENLARGEMENT [0.25mV P-WAVE] BORDERLINE ECG P-R Interval 176 ms QRS Interval 95 ms QT Interval 390 ms QTC Interval 434 ms P [place] 78 QRS [place] 77 T Wave [place] 76 Jian Howell MD EKG Performing Organization Address [facility] Co de Phone Number [facility] CVIS EKG ORDERS * ED INR (11/30/2023 7:02 PM CDT) Pathologist [facility] ED INR 1.0 0.8 - 1.1 [facility] Comment: Warfarin Therapeutic Range: Standard Intensity: 2.0 - 3.0 High Intensity: 2.5 - 3.5 This is a rapid INR screening test which uses whole blood; results may infrequently differ from plasma INR results. If medication adjustments/dosing are required a PT/INR test ([id number]) should be ordered and performed in the main laboratory. Blood 11/30/2023 7:02 PM CDT 11/30/2023 7:08 PM CDT Jian Howell MD LABORATORY Performing Organization Address [facility] Co de Phone Number [facility] [address] [address] * EXTRA TUBE - SST (11/30/2023 7:02 PM CDT) Pathologist [facility] SST TUBE Stored [facility] Comment:SST tubes (Serum Sep arator) are stored in the lab for 3 days from the collection date. Blood 11/30/2023 7:02 PM CDT 11/30/2023 7:09 PM CDT Jian Howell MD LABORATORY Performing Organization Address [facility] Co de Phone Number [facility] [address] [address] * HS TROPONIN (11/30/2023 7:02 PM CDT) [facility] HS Troponin I <3 <=14 ng/L [facility] Blood 11/30/2023 7:02 PM CDT 11/30/2023 7:08 PM CDT Narrative [facility] - 11/30/2023 7:34 PM CDT First Occurrence of the Troponin order is to be drawn Stat by Nursing staff on the unit. Jian Howell MD LABORATORY Performing Organization Address [facility] de Phone Number [facility] [address] [address] * (ABNORMAL) ED CHEMISTRY LABS(NA,K,CL,CO2,GLU,CREAT,CA-IONIZED,ANION GAP) (11/30/2023 7:02 PM CDT) Sodium 140 135 - 148 mmol/L [facility] Chloride 111(H) 92 - 108 mmol/L [facility] AnGap 7(L) 8 - 16 mmol/L [facility] Glucose 99 70 - 100 mg/dL [facility] ICA, Actual 4.40 4.40 - 5.20 mg/dL [facility] ICA, pH Corrected 4.50 4.40 - 5.20 mg/dL [facility] Creatinine 0.95 0.50 - 1.00 mg/dL [facility] BICARB 22 22 - 26 mEq/L [facility] eGFR (2020 CKD-EPI) 68 >=60 ml/min/1.7 3m2 [facility] Comment: The estimated glomerular filtration rate (eGFR) was calculated using the CKD-EPI 2020 creatinine equation, which does not include race as a factor. This equation is validated in individuals 18 years of age and older, and eGFR is normalized to a body surface area of 1.73m^2. Potassium 4.5 3.5 - 5.3 mmol/L [facility] Blood 11/30/2023 7:02 PM CDT 11/30/2023 7:09 PM CDT Jian Howell MD LABORATORY Performing Organization Address [facility] Co de Phone Number [facility] [address] [address] * (ABNORMAL) ED HEMOGLOBIN TOTAL (ED ONLY) (11/30/2023 7:02 PM CDT) Hgb 10.2(L) 11.5 - 15.7 g/dL [facility] Blood 11/30/2023 7:02 PM CDT 11/30/2023 7:09 PM CDT Jian Howell MD LABORATORY Performing Organization Address City/[facility]/ZIP Co de Phone Number [facility] [address] [address] * PRECAUTIONARY TUBE (11/30/2023 7:02 PM CDT) Prec Tube Precautionary Blood Bank Specimen Received. [facility] Blood 11/30/2023 7:02 PM CDT 11/30/2023 7:17 PM CDT Jian Howell MD LAB TRANSFUSION SERV ICES Performing Organization Address [facility] Co de Phone Number [facility] [address] [address] * (ABNORMAL) PANEL HEPATIC FUNCTION (11/30/2023 7:02 PM CDT) Total Protein 6.0(L) 6.4 - 8.3 g/dL [facility] Albumin 4.2 3.8 - 5.1 g/dL [facility] Bili Total <0.2 <=1.2 mg/dL [facility] Bili Direct na <=0.3 mg/dL [facility] Comment:BILID < 0.2. Accurac y of result suspect due to hemolysis. Alk Phos 104 35 - 104 IU/L [facility] Comment:No reference range e stablished for patients <18 years old. ALT (SGPT) na <=33 IU/L [facility] Comment:ALT = 8. Accuracy of result suspect due to hemolysis. AST(SGOT) na 5 - 40 IU/L [facility] Comment:AST = 20. Accuracy o f result suspect due to hemolysis. Blood 11/30/2023 7:02 PM CDT 11/30/2023 7:17 PM CDT Jian Howell MD LABORATORY Performing Organization Address [facility]/ZIP Co de Phone Number [facility] [address] [address] * LACTATE (LACTIC ACID) (11/30/2023 7:02 PM CDT) Lactate 1.5 0.7 - 2.1 mmol/L [facility] Blood 11/30/2023 7:02 PM CDT 11/30/2023 7:09 PM CDT Narrative [facility] - 11/30/2023 7:16 PM CDT Send specimen on ice! Jian Howell MD LABORATORY Performing Organization Address City/[facility]/ZIP Co de Phone Number [facility] [address] [address] * (ABNORMAL) BLOOD GASES (11/30/2023 7:02 PM CDT) PH Juvenal 7.40 7.32 - 7.42 [facility] PCO2 Juvenal 38(L) 41 - 51 mmHG [facility] PO2 Juvenal 39 25 - 40 mmHG [facility] Bicarb Juvenal 23(L) 24 - 28 mEq/L [facility] O2 Sat Juvenal 73 % [facility] Base Exc Juvenal -1.2 -10.0 - 2.0 mmol/L [facility] Blood Venous 11/30/2023 7:02 PM CDT 11/30/2023 7:09 PM CDT Jian oHwell MD LABORATORY Performing Organization Address City/[facility]/ZIP Co de Phone Number [facility] [address] [address] * FIBRINOGEN (11/30/2023 7:02 PM CDT) Fibrinogen 222 200 - 400 mg/dL [facility] Blood 11/30/2023 7:02 PM CDT 11/30/2023 7:17 PM CDT Jian Howell MD LABORATORY [facility] [address] [address] * ETHANOL (ETOH) LEVEL, BLOOD (11/30/2023 7:02 PM CDT) Ethanol Negative Negative g/dL [facility] Blood 11/30/2023 7:02 PM CDT 11/30/2023 7:17 PM CDT Jian Howell MD LABORATORY Performing Organization Address [facility] Co de Phone Number [facility] [address] [address] * CK, TOTAL (11/30/2023 7:02 PM CDT) CK na 26 - 192 [facility] Comment:CK = 82. Accuracy of result suspect due to hemolysis. Blood 11/30/2023 7:02 PM CDT 11/30/2023 7:54 PM CDT Gonzalez Engle MD LABORATOR Y Performing Organization Address [facility] Co de Phone Number [address] [address] * PTT (APTT) (11/30/2023 7:02 PM CDT) APTT 31.0 25.0 - 37.0 sec [facility] Blood 11/30/2023 7:02 PM CDT 11/30/2023 7:17 PM CDT Jian Howell MD LABORATORY Performing Organization Address [facility] Co de Phone Number [address] [address] * ED US CRITICAL CARE (11/30/2023 6:59 [...] the time period is included. Narrative User, [id number] - 12/01/2023 9:32 AM CDT Outside Film Only Outside Provider RAD OUTSIDE FILMS * PANEL LIPID (03/19/2009 5:24 AM [facility]) Cholesterol 167 0 - 200 mg/dL [facility] Triglyceride 73 10 - 160 mg/dL [facility] HDL 53 40 - 75 mg/dL [facility] Blood specimen (specimen) 03/19/2009 5:24 AM [facility] 03/19/2009 5:59 AM [facility] Narrative [facility] - 03/19/2009 7:19 AM [facility] Fasting: Yes Joaquin Lozano MD LABORATORY [facility] from Last 3 Months or Most Recently Relevant to Health Maintenance Advance Directives For more information, please contact: [phone] * DNR (Latest Code Status on File) [...] Status With Whom? Not discussed Care Teams Event Operations Manager Relationship Specialty Start Date End Date Pcp, [place] [address] PCP - General 03/18/09
--- OUTSIDE RECORDS SUMMARY | 2023-12-14 02:58 | XMS_ITS | Encounter Summary ---
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 9.4 6.5 - 12.5 fL [facility] Automated Abs Neutrophil 3.14 1.70 - 6.50 k/cmm [facility] Comment:Preliminary ANC, Fin al Result to Follow Abs Immature Granulocyte 0.02 0.00 - 0.09 k/cmm [facility] Comment:The Immature Granulo cyte Absolute count contains metamyelocytes and myelocytes. Abs Neutrophil 3.14 1.70 - 6.50 k/cmm [facility] Abs Lymphocyte 1.89 0.80 - 4.00 k/cmm [facility] Abs Monocyte 0.47 0.20 - 1.00 k/cmm [facility] Abs Eosinophil 0.28 0.00 - 0.60 k/cmm [facility] Abs Basophil 0.02 0.00 - 0.20 k/cmm [facility] Blood 12/03/2023 4:29 AM CDT 12/03/2023 5:58 AM CDT Kory Kimball MD LABORATORY [facility] [address] [place] [id number] * (ABNORMAL) PANEL BASIC METABOLIC (BMP) (12/02/2023 4:42 AM CDT) Pathologist [facility] AnGap 9 8 - 16 mmol/L [facility] Creatinine 0.73 0.50 - 1.00 mg/dL [facility] Calcium 8.5(L) 8.8 - 10.2 mg/dL [facility] eGFR (2020 CKD-EPI) 94 >=60 ml/min/1.7 3m2 [facility] Comment: The estimated glomerular filtration rate (eGFR) was calculated using the CKD-EPI 2020 creatinine equation, which does not include race as a factor. This equation is validated in individuals 18 years of age and older, and eGFR is normalized to a body surface area of 1.73m^2. BUN 11 8 - 23 mg/dL [facility] Sodium 141 135 - 148 mmol/L [facility] CO2 24 22 - 30 mmol/L [facility] Glucose 120(H) 70 - 100 mg/dL [facility] Chloride 108 92 - 108 mmol/L [facility] Potassium 3.5 3.5 - 5.3 mmol/L [facility] Blood 12/02/2023 4:42 AM CDT 12/02/2023 5:19 AM CDT Joaquin Snow MD LABORATORY [facility] [address] [address] * (ABNORMAL) CBC WITH PLTS/AUTO DIFF (12/02/2023 4:42 AM CDT) WBC 6.95 4.00 - 10.00 k/cmm [facility] RBC 3.71(L) 3.90 - 5.20 m/cmm [facility] Hgb 9.4(L) 11.5 - 15.7 g/dL [facility] Hematocrit 31.1(L) 34.0 - 45.0 % [facility] MCV 83.8 80.0 - 100.0 fL [facility] MCH 25.3 25.0 - 32.0 pg [facility] MCHC 30.2(L) 31.0 - 36.0 g/dL [facility] RDW 17.0(H) 11.5 - 14.5 % [facility] Plt 197 150 - 400 k/cmm [facility] MPV 9.0 6.5 - 12.5 fL [facility] NRBC 0.3(H) 0.0 - 0.0 /100WBC [facility] Automated Abs Neutrophil 3.98 1.70 - 6.50 k/cmm [facility] Comment:Preliminary ANC, Fin al Result to Follow Abs Immature Granulocyte 0.03 0.00 - 0.09 k/cmm [facility] Comment:The Immature Granulo cyte Absolute count contains metamyelocytes and myelocytes. Abs Neutrophil 3.98 1.70 - 6.50 k/cmm [facility] Abs Lymphocyte 2.25 0.80 - 4.00 k/cmm [facility] Abs Monocyte 0.45 0.20 - 1.00 k/cmm [facility] Abs Eosinophil 0.21 0.00 - 0.60 k/cmm [facility] Abs Basophil 0.03 0.00 - 0.20 k/cmm [facility] Blood 12/02/2023 4:42 AM CDT 12/02/2023 5:19 AM CDT Joaquin Snow MD LABORATORY Performing Organization Address City/[facility]/ZIP Co de Phone Number [facility] [place] [phone] * VITAMIN [id number] TO MMA (12/02/2023 4:42 AM CDT) B12 340 211 - 946 pg/mL [facility] Blood 12/02/2023 4:42 AM CDT 12/02/2023 5:19 AM CDT Joaquin Snow MD LABORATORY Performing Organization Address City/[facility]/ZIP Co de Phone Number [facility] [address] [address] * (ABNORMAL) TRANSFERRIN (INCLUDES TIBC) (12/02/2023 4:42 AM CDT) Transferrin 230 200 - 360 mg/dL [facility] IBC 343 298 - 536 mcg/dL [facility] Iron Saturation Percent 6(L) 20 - 50 % [facility] Blood 12/02/2023 4:42 AM CDT 12/02/2023 5:19 AM CDT Joaquin Snow MD LABORATORY Performing Organization Address [facility] Co de Phone Number [facility] [address] [address] * (ABNORMAL) IRON (12/02/2023 4:42 AM CDT) Iron 19(L) 35 - 145 mcg/dL [facility] Blood 12/02/2023 4:42 AM CDT 12/02/2023 5:19 AM CDT Joaquin Snow MD LABORATORY Performing Organization Address [facility] Co de Phone Number [facility] [address] [address] * FERRITIN (12/02/2023 4:42 AM CDT) Ferritin 18.0 13.0 - 150.0 ng/mL [facility] Comment: Test Performed by: [facility] [address] [place] [address] Blood 12/02/2023 4:42 AM CDT 12/02/2023 5:19 AM CDT Joaquin Snow MD LABORATORY Performing Organization Address [facility] de Phone Number [facility] [address] [address] * XR SHOULDER RT 2/3V AP/GRASH/Y* (12/01/2023 [...] POC Glucose 108(H) 70 - 100 mg/dL [facility] Blood 12/01/2023 9:07 AM CDT Gonzalez Gomez MD LABORATOR Y [facility] [address] [place] [address], [place] * (ABNORMAL) POC GLUCOSE (12/01/2023 6:22 AM CDT) POC Glucose 101(H) 70 - 100 mg/dL [facility] Blood 12/01/2023 6:22 AM CDT Gonzalez Gomez MD LABORATOR Y Performing Organization Address [facility] Co de Phone Number [facility] [address] [place] [address], [place] * CT LOW EXTREMITY LEFT NO [...] 390 ms QTC Interval 434 ms P Brawley 78 QRS Brawley 77 T Wave Brawley 76 Narrative Procedure Note Greg Posey MD - 12/01/2023 IMPRESSION SINUS RHYTHM POSSIBLE RIGHT ATRIAL ENLARGEMENT [0.25mV P-WAVE] BORDERLINE ECG P-R Interval 176 ms QRS Interval 95 ms QT Interval 390 ms QTC Interval 434 ms P Brawley 78 QRS Brawley 77 T Wave Brawley 76 Jian Howell MD EKG Performing Organization Address City/[facility] Co de Phone Number [facility] EKG ORDERS * CK, TOTAL (11/30/2023 7:02 PM CDT) CK na 26 - 192 [facility] Comment:CK = 82. Accuracy of result suspect due to hemolysis. Blood 11/30/2023 7:02 PM CDT 11/30/2023 7:54 PM CDT Gonzalez Gomez MD LABORATOR Y Performing Organization Address City/[facility] Co de Phone Number [facility] [address] [address] * EXTRA TUBE - SST (11/30/2023 7:02 PM CDT) Pathologist [facility] SST TUBE Stored [facility] Comment:SST tubes (Serum Sep arator) are stored in the lab for 3 days from the collection date. Blood 11/30/2023 7:02 PM CDT 11/30/2023 7:09 PM CDT Jian Howell MD LABORATORY Performing Organization Address [facility] Co de Phone Number [facility] [address] [address] * HS TROPONIN (11/30/2023 7:02 PM CDT) Pathologist [facility] HS Troponin I <3 <=14 ng/L [facility] Blood 11/30/2023 7:02 PM CDT 11/30/2023 7:08 PM CDT Narrative [facility] - 11/30/2023 7:34 PM CDT First Occurrence of the Troponin order is to be drawn Stat by Nursing staff on the unit. Jian Howell MD LABORATORY Performing Organization Address [facility] Co de Phone Number [facility] [address] [address] * ETHANOL (ETOH) LEVEL, BLOOD (11/30/2023 7:02 PM CDT) Pathologist [facility] Ethanol Negative Negative g/dL [facility] Blood 11/30/2023 7:02 PM CDT 11/30/2023 7:17 PM CDT Jian Howell MD LABORATORY Performing Organization Address [facility] Co de Phone Number [facility] [address] [address] * PTT (APTT) (11/30/2023 7:02 PM CDT) [facility] APTT 31.0 25.0 - 37.0 sec [facility] Blood 11/30/2023 7:02 PM CDT 11/30/2023 7:17 PM CDT Jian Howell MD LABORATORY Performing Organization Address [facility] de Phone Number [facility] [address] [address] * ED INR (11/30/2023 7:02 PM CDT) [facility] ED INR 1.0 0.8 - 1.1 [facility] Comment: Warfarin Therapeutic Range: Standard Intensity: 2.0 - 3.0 High Intensity: 2.5 - 3.5 This is a rapid INR screening test which uses whole blood; results may infrequently differ from plasma INR results. If medication adjustments/dosing are required a PT/INR test ([id number]) should be ordered and performed in the main laboratory. Blood 11/30/2023 7:02 PM CDT 11/30/2023 7:08 PM CDT Jian Howell MD LABORATORY Performing Organization Address City/[facility]/ZIP Co de Phone Number [facility] [address] [address] * PRECAUTIONARY TUBE (11/30/2023 7:02 PM CDT) Pathologist [facility] Prec Tube Precautionary Blood Bank Specimen Received. [facility] Blood 11/30/2023 7:02 PM CDT 11/30/2023 7:17 PM CDT Jian Howell MD LAB TRANSFUSION SERV ICES Performing Organization Address [facility]/ZIP Co de Phone Number [facility] [address] [address] * LACTATE (LACTIC ACID) (11/30/2023 7:02 PM CDT) Pathologist [facility] Lactate 1.5 0.7 - 2.1 mmol/L [facility] Blood 11/30/2023 7:02 PM CDT 11/30/2023 7:09 PM CDT Narrative [facility] - 11/30/2023 7:16 PM CDT Send specimen on ice! Jian Howell MD LABORATORY Performing Organization Address [facility] Co de Phone Number [facility] [address] [address] * FIBRINOGEN (11/30/2023 7:02 PM CDT) Pathologist [facility] Fibrinogen 222 200 - 400 mg/dL [facility] Blood 11/30/2023 7:02 PM CDT 11/30/2023 7:17 PM CDT Jian Howell MD LABORATORY Performing Organization Address City/[facility]/ZIP Co de Phone Number [facility] [address] [address] * (ABNORMAL) PANEL HEPATIC FUNCTION (11/30/2023 7:02 PM CDT) Total Protein 6.0(L) 6.4 - 8.3 g/dL [facility] Albumin 4.2 3.8 - 5.1 g/dL [facility] Bili Total <0.2 <=1.2 mg/dL [facility] Bili Direct na <=0.3 mg/dL [facility] Comment:BILID < 0.2. Accurac y of result suspect due to hemolysis. Alk Phos 104 35 - 104 IU/L [facility] Comment:No reference range e stablished for patients <18 years old. ALT (SGPT) na <=33 IU/L [facility] Comment:ALT = 8. Accuracy of result suspect due to hemolysis. AST(SGOT) na 5 - 40 IU/L [facility] Comment:AST = 20. Accuracy o f result suspect due to hemolysis. Blood 11/30/2023 7:02 PM CDT 11/30/2023 7:17 PM CDT Jian Howell MD LABORATORY Performing Organization Address City/[facility]/ZIP Co de Phone Number [facility] [address] [address] * (ABNORMAL) ED HEMOGLOBIN TOTAL (ED ONLY) (11/30/2023 7:02 PM CDT) Hgb 10.2(L) 11.5 - 15.7 g/dL [facility] Blood 11/30/2023 7:02 PM CDT 11/30/2023 7:09 PM CDT Jian Howell MD LABORATORY Performing Organization Address City/[facility]/ZIP Co de Phone Number [facility] [address] [address] * (ABNORMAL) ED CHEMISTRY LABS(NA,K,CL,CO2,GLU,CREAT,CA-IONIZED,ANION GAP) (11/30/2023 7:02 PM CDT) Sodium 140 135 - 148 mmol/L [facility] Chloride 111(H) 92 - 108 mmol/L [facility] AnGap 7(L) 8 - 16 mmol/L [facility] Glucose 99 70 - 100 mg/dL [facility] ICA, Actual 4.40 4.40 - 5.20 mg/dL [facility] ICA, pH Corrected 4.50 4.40 - 5.20 mg/dL [facility] Creatinine 0.95 0.50 - 1.00 mg/dL [facility] BICARB 22 22 - 26 mEq/L [facility] eGFR (2020 CKD-EPI) 68 >=60 ml/min/1.7 3m2 [facility] Comment: The estimated glomerular filtration rate (eGFR) was calculated using the CKD-EPI 2020 creatinine equation, which does not include race as a factor. This equation is validated in individuals 18 years of age and older, and eGFR is normalized to a body surface area of 1.73m^2. Potassium 4.5 3.5 - 5.3 mmol/L [facility] Blood 11/30/2023 7:02 PM CDT 11/30/2023 7:09 PM CDT Jian Howell MD LABORATORY [facility] [address] [address] * (ABNORMAL) CBC WITH PLTS/AUTO DIFF (11/30/2023 7:02 PM CDT) WBC 9.81 4.00 - 10.00 k/cmm [facility] RBC 3.98 3.90 - 5.20 m/cmm [facility] Hgb 10.1(L) 11.5 - 15.7 g/dL [facility] Hematocrit 32.6(L) 34.0 - 45.0 % [facility] MCV 81.9 80.0 - 100.0 fL [facility] MCH 25.4 25.0 - 32.0 pg [facility] MCHC 31.0 31.0 - 36.0 g/dL [facility] RDW 16.9(H) 11.5 - 14.5 % [facility] Plt 233 150 - 400 k/cmm [facility] MPV 9.1 6.5 - 12.5 fL [facility] Automated Abs Neutrophil 6.22 1.70 - 6.50 k/cmm [facility] Comment:Preliminary ANC, Fin al Result to Follow Abs Immature Granulocyte 0.03 0.00 - 0.09 k/cmm [facility] Comment:The Immature Granulo cyte Absolute count contains metamyelocytes and myelocytes. Abs Neutrophil 6.22 1.70 - 6.50 k/cmm [facility] Abs Lymphocyte 2.73 0.80 - 4.00 k/cmm [facility] Abs Monocyte 0.49 0.20 - 1.00 k/cmm [facility] Abs Eosinophil 0.30 0.00 - 0.60 k/cmm [facility] Abs Basophil 0.04 0.00 - 0.20 k/cmm [facility] Blood 11/30/2023 7:02 PM CDT 11/30/2023 7:16 PM CDT Jian Howell MD LABORATORY Performing Organization Address [facility] Co de Phone Number [address] [address] * (ABNORMAL) BLOOD GASES (11/30/2023 7:02 PM CDT) PH Juvenal 7.40 7.32 - 7.42 [facility] PCO2 Juvenal 38(L) 41 - 51 mmHG [facility] PO2 Juvenal 39 25 - 40 mmHG [facility] Bicarb Juvenal 23(L) 24 - 28 mEq/L [facility] O2 Sat Juvenal 73 % [facility] Base Exc Juvenal -1.2 -10.0 - 2.0 mmol/L [facility] Blood Venous 11/30/2023 7:02 PM CDT 11/30/2023 7:09 PM CDT Jian Howell MD LABORATORY Performing Organization Address [facility] Co de Phone Number [address] [address] * ED US CRITICAL CARE (11/30/2023 6:59 [...] Procedure documented in this encounter Care Teams Head Automatic Sawyer Relationship Specialty Start Date End Date Pcp, [place] [address] PCP - General 03/18/09 documented as of this encounter
--- OUTSIDE RECORDS SUMMARY | 2023-12-14 02:58 | XMS_ITS | Encounter Summary ---
Author Organization [facility] Address [address] [place] [address] Phone Care Team Providers Care Wicker Molded Candles Name Role Phone Pcp, No Primary Care Provider Unavailabl e Encounter Details Date Type Department Care Team (Late st Contact Info) Description 12/01/2023 Orders Only [facility] Film Room [facility] Radiology Department [facility] [address] [phone] Provider, Outside [place] [address] Referral of patient (Primary Dx) Social History [...] st Contact Info) Description 12/15/2023 1:00 PM CAMPUS RECRUITER [facility] [address] [place] [phone] Scheduled Discharge Disposition: Discharged to home or self care documented as of this encounter Results * XR LOWER EXTREMITY OUTSIDE FILMS (11/30/2023 4:55 PM CDT) Narrative Petey Nask-Oysbgt-Jeotfpnwi - 12/01/2023 9:32 AM CDT Outside Film Only Outside Provider RAD OUTSIDE FILMS * XR LOWER EXTREMITY OUTSIDE FILMS (11/30/2023 4:54 PM CDT) Narrative Petey Ypij-Emejyq-Etzazkoat - 12/01/2023 9:34 AM CDT Outside Film Only Outside Provider RAD OUTSIDE FILMS * XR LOWER EXTREMITY OUTSIDE FILMS (11/30/2023 4:53 PM CDT) Narrative Petey Pctq-Oznqlz-Dzyneizbn - 12/01/2023 9:33 AM CDT Outside Film Only Outside Provider RAD OUTSIDE FILMS * XR LOWER EXTREMITY OUTSIDE FILMS (11/30/2023 4:51 PM CDT) Narrative User, Wrli-Tmazoi-Nzvkrrvve - 12/01/2023 10:15 AM CDT Outside Film Only Outside Provider RAD OUTSIDE FILMS * XR LOWER EXTREMITY OUTSIDE FILMS (11/30/2023 4:50 PM CDT) Narrative User, Zuai-Xofjmx-Yfoohsucv - 12/01/2023 9:35 AM CDT Outside Film Only Outside Provider RAD OUTSIDE FILMS documented in this encounter Visit Diagnoses Diagnosis Referral of patient- Primary Referral of patient without examination or treatment documented in this encounter Care Teams Wicker Molded Candles Relationship Specialty Start Date End Date Pcp, No [place] [place] [address] PCP - General 03/18/09 documented as of this encounter
--- OUTSIDE RECORDS SUMMARY | 2023-12-14 02:58 | XMS_ITS | Encounter Summary ---
Author Organization [facility] Address [address] [place] [phone] Phone Care Team Providers Care Manager Concrete Name Role Phone Pcp, No Primary Care [...] st Contact Info) Description 12/15/2023 1:00 PM ADULT SPECIALIST [facility] [address] [address] Scheduled Discharge Disposition: Discharged to home or self care documented as of this encounter Visit Diagnoses Not on filedocumented in this encounter Care Teams Manager Concrete Relationship Specialty Start Date End Date Pcp, No [facility] [place] [address] PCP - General 03/18/09 documented as of this encounter
--- OUTSIDE RECORDS SUMMARY | 2023-12-14 02:58 | XMS_ITS | Encounter Summary ---
Author Organization [facility] Address [address] [place] [address] Phone Care Team Providers Care Office Service Coordinator Name Role Phone Pcp, No Primary Care Provider Unavailabl e Reason for Visit * Auth/Cert (Routine) Specialty Diagnoses / Procedures Referred By Contangélica t Referred To Contact ORTHOPEDICS Diagnoses Inadequate pain control Traumatic compartment syndrome of left lower extremity, initial encounter ([facility]) Closed fracture fibula, head, left, initial encounter Gonzalez Engle MD [address] [facility] [address] [place] [address] [facility](G3) [address] [facility] [address] [place] [address] Referral ID Status Reason Start Date Expiration Date Visits Re quested Visits Authorized [id number] 1 1 Encounter Details Date Type Department Care Team (Late st Contact Info) Description 12/01/2023 6:32 AM CDT Anesthesia Event OR P4 [address] [place] [address] Joaquin Herrera MD [address] [place], [place] [id number] [place] [id number] Anesthesia Record Procedure Summary Procedure Name Responsible [...] 1124 12/01/23 0642 by Eric Ching APRN, DEPUTY CITY CLERK 12/02/23 1124 by Yuliana Carpenter RN Endotracheal [...] [facility]est[facility] type: General () Patient location: PACU [...] GI - negative ROS Hematologic/Onc (+) anemia /Renal/Director Digital Marketing - negative ROS Airway Mallampati: II TM [...] and consented by patient. Plan discussed with DEPUTY CITY CLERK. Vitals: 12/01/23 0444 BP: 115/68 Pulse: 73 [...] unchanged and oral mucosa unchanged Performed by: DEPUTY CITY CLERK: Eric Ching APRN, CRNAAnesthesiologist: mEir Bullock MD Additional Notes RSI Events Anesthesia [...] st Contact Info) Description 12/15/2023 1:00 PM ELECTRIC NEEDLE SPECIALIST [facility] [address] [place] [id number] Scheduled Discharge Disposition: Discharged to home or [...] unchanged and oral mucosa unchanged Performed by: DEPUTY CITY CLERK: Eric Ching APRN, CRNAAnesthesiologist: Emir Bullock MD [...] mg documented in this encounter Care Teams Office Service Coordinator Relationship Specialty Start Date End Date Pcp, No [facility] [place] [address] PCP - General 03/18/09 documented as of this encounter
--- OUTSIDE RECORDS SUMMARY | 2023-12-14 02:58 | XMS_ITS | Referral Summary ---
Author Organization [facility] Address [address] [place] [address] Phone Care Team Providers Care Director Intelligence Analysis Programs Name Role Phone Pcp, No Primary Care Provider Unavailabl e Source Comments The 19th Floor Systems is fully rolled out on [employer]. Last update 07/15/08.[facility] Encounters Date Type Department Care Team Description 11/30/2023 6:58 PM CDT - 12/03/2023 3:46 PM CDT Hospital Encounter [facility] Orthopaedic [address] [place] [address] Gonzalez Engle MD Wright, MD Jigar Bedolla, Kory Espinal MD Closed fracture fibula, head, left, initial encounter Discharge Disposition: Discharged to home or self care 12/01/2023 Travel 12/01/2023 Orders Only [facility] Film Room [facility] Radiology Department [facility] [address] [place] [address] Provider, Outside Referral of patient (Primary Dx) 12/01/2023 6:32 AM CDT Anesthesia Event OR P4 [address] [place] [address] Joaquin Herrera MD Teslaa, Polly A RN 12/01/2023 6:15 AM CDT - 12/01/2023 8:23 AM CDT Surgery OR P4 [address] [place] [address] Lotus Varela MD FASCIOTOMY, LOWER EXTREMITY from [...] Wed and Fri. 24 tablet 12/03/19 Active polyethylene glycol 3350 (MIRALAX/GLUCOLAX) 17 gm/scoop oral powder Mix 1 tablespoon (17 g) with a full glass of water and drink daily as needed for constipation. 238 g 3 12/03/19 Active Pramipexole Dihydrochloride (MIRAPEX ORAL) Take by mouth. Discontinued(Er ror) oxyCODONE (ROXICODONE) 5 mg oral tablet Take 1 tablet (5 mg) by mouth 3 times daily as needed for Pain.Use on top of chronic opioid regimen for treatment of post-operative pain. 21 tablet 12/03/19 naloxone (NARCAN) 4 mg/0.1 mL nasal spray [...] complication, without long-term current use of insulin ([facility]) 08/21/2021 History of lumbar fusion 06/27/2020 IBS (irritable bowel syndrome) 06/27/2020 Opioid dependence with current use ([facility]) Lumbar radiculopathy 03/02/2014 Cocaine abuse ([facility]) 03/18/2009 Alcohol abuse 03/18/2009 RLS (restless legs [...] st Contact Info) Description 12/15/2023 1:00 PM TOUR COORDINATOR [facility] [address] [address] Scheduled Discharge Disposition: Discharged to home or [...] syndrome of left lower extremity, initial encounter ([facility]) FASCIOTOMY, LOWER EXTREMITY Emergent ([facility]O) 12/01/2023 6:22 AM CDT Traumatic compartment syndrome of left lower extremity, initial encounter ([facility]) CT LOW EXTREMITY LEFT NO IV CON [...] patient PANEL LIPID Routine 03/19/2009 5:24 AM TOUR COORDINATOR from Last 3 Months or Most Recently Relevant to Health Maintenance Results * (ABNORMAL) CBC WITH PLTS/AUTO DIFF (12/03/2023 4:29 AM CDT) Only the most recent of3 resultswithin the time period is included. WBC 5.82 4.00 - 10.00 k/cmm [facility] RBC 3.61(L) 3.90 - 5.20 m/cmm [facility] Hgb 9.0(L) 11.5 - 15.7 g/dL [facility] Hematocrit 29.6(L) 34.0 - 45.0 % [facility] MCV 82.0 80.0 - 100.0 fL [facility] MCH 24.9(L) 25.0 - 32.0 pg [facility] MCHC 30.4(L) 31.0 - 36.0 g/dL [facility] RDW 17.2(H) 11.5 - 14.5 % [facility] Plt 192 150 - 400 k/cmm [facility] MPV 9.4 6.5 - 12.5 fL [facility] Automated Abs Neutrophil 3.14 1.70 - 6.50 k/cmm [facility] Comment:Preliminary ANC, Fin al Result to Follow Abs Immature Granulocyte 0.02 0.00 - 0.09 k/cmm [facility] Comment:The Immature Granulo cyte Absolute count contains metamyelocytes and myelocytes. Abs Neutrophil 3.14 1.70 - 6.50 k/cmm [facility] Abs Lymphocyte 1.89 0.80 - 4.00 k/cmm [facility] Abs Monocyte 0.47 0.20 - 1.00 k/cmm [facility] Abs Eosinophil 0.28 0.00 - 0.60 k/cmm [facility] Abs Basophil 0.02 0.00 - 0.20 k/cmm [facility] Blood 12/03/2023 4:29 AM CDT 12/03/2023 5:58 AM CDT Kory Kimball MD LABORATORY [facility] [address] [address] * PHOSPHORUS (12/03/2023 4:29 AM CDT) Phosphorus 3.0 2.5 - 4.5 mg/dL [facility] Blood 12/03/2023 4:29 AM CDT 12/03/2023 5:58 AM CDT Kory Kimball MD LABORATORY [facility] [address] [address] * (ABNORMAL) PANEL BASIC METABOLIC (BMP) (12/03/2023 4:29 AM CDT) Only the most recent of2 resultswithin the time period is included. Sodium 143 135 - 148 mmol/L [facility] Potassium 3.5 3.5 - 5.3 mmol/L [facility] Chloride 110(H) 92 - 108 mmol/L [facility] CO2 25 22 - 30 mmol/L [facility] Glucose 130(H) 70 - 100 mg/dL [facility] BUN 14 8 - 23 mg/dL [facility] Creatinine 0.66 0.50 - 1.00 mg/dL [facility] Calcium 8.5(L) 8.8 - 10.2 mg/dL [facility] AnGap 8 8 - 16 mmol/L [facility] eGFR (2020 CKD-EPI) 100 >=60 ml/min/1.7 3m2 [facility] Comment: The estimated glomerular filtration rate (eGFR) was calculated using the CKD-EPI 2020 creatinine equation, which does not include race as a factor. This equation is validated in individuals 18 years of age and older, and eGFR is normalized to a body surface area of 1.73m^2. Blood 12/03/2023 4:29 AM CDT 12/03/2023 5:58 AM CDT Kory Kimball MD LABORATORY [facility] [address] [address] * MAGNESIUM (12/03/2023 4:29 AM CDT) Magnesium 2.1 1.6 - 2.4 mg/dL [facility] Blood 12/03/2023 4:29 AM CDT 12/03/2023 5:58 AM CDT Kory Kimball MD LABORATORY [facility] [address] [address] * VITAMIN [id number] TO MMA (12/02/2023 4:42 AM CDT) B12 340 211 - 946 pg/mL [facility] Blood 12/02/2023 4:42 AM CDT 12/02/2023 5:19 AM CDT Joaquin Snow MD LABORATORY [facility] [address] [address] * (ABNORMAL) TRANSFERRIN (INCLUDES TIBC) (12/02/2023 4:42 AM CDT) Transferrin 230 200 - 360 mg/dL [facility] IBC 343 298 - 536 mcg/dL [facility] Iron Saturation Percent 6(L) 20 - 50 % [facility] Blood 12/02/2023 4:42 AM CDT 12/02/2023 5:19 AM CDT Joaquin Snow MD LABORATORY Performing Organization Address City/[facility]/ZIP Co de Phone Number [facility] [address] [address] * (ABNORMAL) IRON (12/02/2023 4:42 AM CDT) Iron 19(L) 35 - 145 mcg/dL [facility] Blood 12/02/2023 4:42 AM CDT 12/02/2023 5:19 AM CDT Joaquin Snow MD LABORATORY Performing Organization Address City/[facility]/ZIP Co de Phone Number [facility] [address] [address] * FERRITIN (12/02/2023 4:42 AM CDT) Ferritin 18.0 13.0 - 150.0 ng/mL [facility] Comment: Test Performed by: [facility] Laboratory [address] [place] [id number] Blood 12/02/2023 4:42 AM CDT 12/02/2023 5:19 AM CDT Joaquin Snow MD LABORATORY Performing Organization Address City/[facility]/ZIP Co de Phone Number [facility] [address] [address] * XR SHOULDER RT 2/3V AP/GRASH/Y* (12/01/2023 [...] POC Glucose 108(H) 70 - 100 mg/dL [facility] Blood 12/01/2023 9:07 AM CDT Gonzalez Engle MD LABORATOR Y [facility] [address] [place] [address], * Intubation/Airway (12/01/2023 6:52 AM CDT) Narrative [...] unchanged and oral mucosa unchanged Performed by: LIBRARY CUSTOMER SERVICE CLERK: Eric Ching APRN, CRNAAnesthesiologist: Emir Bullock [...] PM CDT) 11/30/2023 7:09 PM CDT Impressions [facility] CVIS EKG ORDERS - 11/30/2023 7:09 PM CDT SINUS RHYTHM POSSIBLE RIGHT ATRIAL ENLARGEMENT ??[0.25mV P-WAVE] BORDERLINE ECG P-R Interval 176 ms QRS Interval 95 ms QT Interval 390 ms QTC Interval 434 ms P Gray 78 QRS Gray 77 T Wave Gray 76 Narrative Procedure Note Greg Posey MD - 12/01/2023 IMPRESSION SINUS RHYTHM POSSIBLE RIGHT ATRIAL ENLARGEMENT [0.25mV P-WAVE] BORDERLINE ECG P-R Interval 176 ms QRS Interval 95 ms QT Interval 390 ms QTC Interval 434 ms P Gray 78 QRS Gray 77 T Wave Gray 76 Jian Howell MD EKG [facility] CVIS EKG ORDERS * ED INR (11/30/2023 7:02 PM CDT) [facility] ED INR 1.0 0.8 - 1.1 [facility] Comment: Warfarin Therapeutic Range: Standard Intensity: 2.0 - 3.0 High Intensity: 2.5 - 3.5 This is a rapid INR screening test which uses whole blood; results may infrequently differ from plasma INR results. If medication adjustments/dosing are required a PT/INR test ([id number]) should be ordered and performed in the main laboratory. Blood 11/30/2023 7:02 PM CDT 11/30/2023 7:08 PM CDT Jian Howell MD LABORATORY Performing Organization Address City/[facility]/ZIP Co de Phone Number [facility] [address] [address] * EXTRA TUBE - SST (11/30/2023 7:02 PM CDT) [facility] SST TUBE Stored [facility] Comment:SST tubes (Serum Sep arator) are stored in the lab for 3 days from the collection date. Blood 11/30/2023 7:02 PM CDT 11/30/2023 7:09 PM CDT Jian Howell MD LABORATORY Performing Organization Address City/[facility] Co de Phone Number [facility] [address] [address] * HS TROPONIN (11/30/2023 7:02 PM CDT) [facility] HS Troponin I <3 <=14 ng/L [facility] Blood 11/30/2023 7:02 PM CDT 11/30/2023 7:08 PM CDT Narrative [facility] - 11/30/2023 7:34 PM CDT First Occurrence of the Troponin order is to be drawn Stat by Nursing staff on the unit. Jian Howell MD LABORATORY Performing Organization Address City/[facility]/ZIP Co de Phone Number [facility] [address] [address] * (ABNORMAL) ED CHEMISTRY LABS(NA,K,CL,CO2,GLU,CREAT,CA-IONIZED,ANION GAP) (11/30/2023 7:02 PM CDT) Sodium 140 135 - 148 mmol/L [facility] Chloride 111(H) 92 - 108 mmol/L [facility] AnGap 7(L) 8 - 16 mmol/L [facility] Glucose 99 70 - 100 mg/dL [facility] ICA, Actual 4.40 4.40 - 5.20 mg/dL [facility] ICA, pH Corrected 4.50 4.40 - 5.20 mg/dL [facility] Creatinine 0.95 0.50 - 1.00 mg/dL [facility] BICARB 22 22 - 26 mEq/L [facility] eGFR (2020 CKD-EPI) 68 >=60 ml/min/1.7 3m2 [facility] Comment: The estimated glomerular filtration rate (eGFR) was calculated using the CKD-EPI 2020 creatinine equation, which does not include race as a factor. This equation is validated in individuals 18 years of age and older, and eGFR is normalized to a body surface area of 1.73m^2. Potassium 4.5 3.5 - 5.3 mmol/L [facility] Blood 11/30/2023 7:02 PM CDT 11/30/2023 7:09 PM CDT Jian Howell MD LABORATORY Performing Organization Address City/[facility] Co de Phone Number [facility] [address] [address] * (ABNORMAL) ED HEMOGLOBIN TOTAL (ED ONLY) (11/30/2023 7:02 PM CDT) Hgb 10.2(L) 11.5 - 15.7 g/dL [facility] Blood 11/30/2023 7:02 PM CDT 11/30/2023 7:09 PM CDT Jian Howell MD LABORATORY Performing Organization Address City/[facility]/ZIP Co de Phone Number [facility] [address] [address] * PRECAUTIONARY TUBE (11/30/2023 7:02 PM CDT) Prec Tube Precautionary Blood Bank Specimen Received. [facility] Blood 11/30/2023 7:02 PM CDT 11/30/2023 7:17 PM CDT Jian Howell MD LAB TRANSFUSION SERV ICES Performing Organization Address [facility] Co de Phone Number [facility] [address] [address] * (ABNORMAL) PANEL HEPATIC FUNCTION (11/30/2023 7:02 PM CDT) Total Protein 6.0(L) 6.4 - 8.3 g/dL [facility] Albumin 4.2 3.8 - 5.1 g/dL [facility] Bili Total <0.2 <=1.2 mg/dL [facility] Bili Direct na <=0.3 mg/dL [facility] Comment:BILID < 0.2. Accurac y of result suspect due to hemolysis. Alk Phos 104 35 - 104 IU/L [facility] Comment:No reference range e stablished for patients <18 years old. ALT (SGPT) na <=33 IU/L [facility] Comment:ALT = 8. Accuracy of result suspect due to hemolysis. AST(SGOT) na 5 - 40 IU/L [facility] Comment:AST = 20. Accuracy o f result suspect due to hemolysis. Blood 11/30/2023 7:0 2 PM CDT 11/30/2023 7:17 PM CDT Jian Howell MD LABORATORY Performing Organization Address City/[facility]/ZIP Co de Phone Number [facility] [address] [address] * LACTATE (LACTIC ACID) (11/30/2023 7:02 PM CDT) Lactate 1.5 0.7 - 2.1 mmol/L [facility] Blood 11/30/2023 7:02 PM CDT 11/30/2023 7:09 PM CDT Narrative [facility] - 11/30/2023 7:16 PM CDT Send specimen on ice! Jian Howell MD LABORATORY Performing Organization Address [facility] Co de Phone Number [address] [address] * (ABNORMAL) BLOOD GASES (11/30/2023 7:02 PM CDT) PH Juvenal 7.40 7.32 - 7.42 [facility] PCO2 Juvenal 38(L) 41 - 51 mmHG [facility] PO2 Juvenal 39 25 - 40 mmHG [facility] Bicarb Juvenal 23(L) 24 - 28 mEq/L [facility] O2 Sat Juvenal 73 % [facility] Base Exc Juvenal -1.2 -10.0 - 2.0 mmol/L [facility] Blood Venous 11/30/2023 7:02 PM CDT 11/30/2023 7:09 PM CDT Jian Howell MD LABORATORY Performing Organization Address [facility] Co de Phone Number [address] [address] * FIBRINOGEN (11/30/2023 7:02 PM CDT) Fibrinogen 222 200 - 400 mg/dL [facility] Blood 11/30/2023 7:02 PM CDT 11/30/2023 7:17 PM CDT Jian Howell MD LABORATORY Performing Organization Address City/[facility] Co de Phone Number [address] [address] * ETHANOL (ETOH) LEVEL, BLOOD (11/30/2023 7:02 PM CDT) Ethanol Negative Negative g/dL [facility] Blood 11/30/2023 7:02 PM CDT 11/30/2023 7:17 PM CDT Jian Howell MD LABORATORY Performing Organization Address City/[facility]/ZIP Co de Phone Number [facility] [address] [address] * CK, TOTAL (11/30/2023 7:02 PM CDT) CK na 26 - 192 [facility] Comment:CK = 82. Accuracy of result suspect due to hemolysis. Blood 11/30/2023 7:02 PM CDT 11/30/2023 7:54 PM CDT Gonzalez Engle MD LABORATOR Y Performing Organization Address [facility] Co de Phone Number [facility] [address] [address] * PTT (APTT) (11/30/2023 7:02 PM CDT) APTT 31.0 25.0 - 37.0 sec [facility] Blood 11/30/2023 7:02 PM CDT 11/30/2023 7:17 PM CDT Jian Howell MD LABORATORY Performing Organization Address [facility] de Phone Number [facility] [address] [address] * ED US CRITICAL CARE (11/30/2023 6:59 [...] the time period is included. Narrative Genny AngeloVwko-Fhrarl-[id number] - 12/01/2023 9:32 AM CDT Outside Film Only Outside Provider RAD OUTSIDE FILMS * PANEL LIPID (03/19/2009 5:24 AM TOUR COORDINATOR) Cholesterol 167 0 - 200 mg/dL [facility] Triglyceride 73 10 - 160 mg/dL [facility] HDL 53 40 - 75 mg/dL [facility] Blood specimen (specimen) 03/19/2009 5:24 AM TOUR COORDINATOR 03/19/2009 5:59 AM TOUR COORDINATOR Narrative [facility] - 03/19/2009 7:19 AM TOUR COORDINATOR Fasting: Yes Joaquin Lozano MD LABORATORY [facility] from Last 3 Months or Most Recently Relevant to Health Maintenance Advance Directives For more information, please contact: [phone] * DNR (Latest Code Status on File) [...] Status With Whom? Not discussed Care Teams Director Intelligence Analysis Programs Relationship Specialty Start Date End Date Pcp, [place] [address] PCP - General 03/18/09
--- OUTSIDE RECORDS SUMMARY | 2023-12-14 02:58 | XMS_ITS | Encounter Summary ---
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 - 400 k/cmm [facility] MPV 9.0 6.5 - 12.5 fL [facility] NRBC 0.3(H) 0.0 - 0.0 /100WBC [facility] Automated Abs Neutrophil 3.98 1.70 - 6.50 k/cmm [facility] Comment:Preliminary ANC, Fin al Result to Follow Abs Immature Granulocyte 0.03 0.00 - 0.09 k/cmm [facility] Comment:The Immature Granulo cyte Absolute count contains metamyelocytes and myelocytes. Abs Neutrophil 3.98 1.70 - 6.50 k/cmm [facility] Abs Lymphocyte 2.25 0.80 - 4.00 k/cmm [facility] Abs Monocyte 0.45 0.20 - 1.00 k/cmm [facility] Abs Eosinophil 0.21 0.00 - 0.60 k/cmm [facility] Abs Basophil 0.03 0.00 - 0.20 k/cmm [facility] Blood 12/02/2023 4:42 AM CDT 12/02/2023 5:19 AM CDT Joaquin Snow MD LABORATORY Performing Organization Address [facility] Co de Phone Number [address] [address] * VITAMIN [id number] TO MMA (12/02/2023 4:42 AM CDT) B12 340 211 - 946 pg/mL [facility] Blood 12/02/2023 4:42 AM CDT 12/02/2023 5:19 AM CDT Joaquin Snow MD LABORATORY Performing Organization Address [facility] de Phone Number [address] [address] * (ABNORMAL) TRANSFERRIN (INCLUDES TIBC) (12/02/2023 4:42 AM CDT) Transferrin 230 200 - 360 mg/dL [facility] IBC 343 298 - 536 mcg/dL [facility] Iron Saturation Percent 6(L) 20 - 50 % [facility] Blood 12/02/2023 4:42 AM CDT 12/02/2023 5:19 AM CDT Joaquin Snow MD LABORATORY Performing Organization Address City/[facility] Co de Phone Number [address] [address] * (ABNORMAL) IRON (12/02/2023 4:42 AM CDT) Iron 19(L) 35 - 145 mcg/dL [facility] Blood 12/02/2023 4:42 AM CDT 12/02/2023 5:19 AM CDT Joaquin Snow MD LABORATORY Performing Organization Address City/[facility]/ZIP Co de Phone Number [facility] [address] [place] [address] * FERRITIN (12/02/2023 4:42 AM CDT) Ferritin 18.0 13.0 - 150.0 ng/mL [facility] Comment: Test Performed by: [facility] [address] [place] [address] Blood 12/02/2023 4:42 AM CDT 12/02/2023 5:19 AM CDT Joaquin Snow MD LABORATORY Performing Organization Address [facility] Co de Phone Number [facility] [address] [address] * XR SHOULDER RT 2/3V AP/GRASH/Y* (12/01/2023 [...] abnormality. Previous cervical spinesurgery Reading Radiologist: Ronald uNnn Pema Miranda PA-C RAD XRAY * XR [...] POC Glucose 108(H) 70 - 100 mg/dL [facility] Blood 12/01/2023 9:07 AM CDT Gonzalez Gomez MD LABORATOR Y [facility] [address] [place] [address], * (ABNORMAL) POC GLUCOSE (12/01/2023 6:22 AM CDT) POC Glucose 101(H) 70 - 100 mg/dL [facility] Blood 12/01/2023 6:22 AM CDT Gonzalez Gomez MD LABORATOR Y [facility] [address] [place] [address], * CT LOW EXTREMITY LEFT NO IV [...] 390 ms QTC Interval 434 ms P [facility] 78 QRS [facility] 77 T Wave [facility] 76 Narrative Procedure Note Greg Posey MD - 12/01/2023 IMPRESSION SINUS RHYTHM POSSIBLE RIGHT ATRIAL ENLARGEMENT [0.25mV P-WAVE] BORDERLINE ECG P-R Interval 176 ms QRS Interval 95 ms QT Interval 390 ms QTC Interval 434 ms P [facility] 78 QRS [facility] 77 T Wave [facility] 76 Jian Howell MD EKG [facility] CVIS EKG ORDERS * CK, TOTAL (11/30/2023 7:02 PM CDT) Pathologist [facility] CK na 26 - 192 [facility] Comment:CK = 82. Accuracy of result suspect due to hemolysis. Blood 11/30/2023 7:02 PM CDT 11/30/2023 7:54 PM CDT Gonzalez Gomez MD LABORATOR Y Performing Organization Address [facility] Co de Phone Number [facility] [address] [address] * EXTRA TUBE - SST (11/30/2023 7:02 PM CDT) [facility] SST TUBE Stored [facility] Comment:SST tubes (Serum Sep arator) are stored in the lab for 3 days from the collection date. Blood 11/30/2023 7:02 PM CDT 11/30/2023 7:09 PM CDT Jian Howell MD LABORATORY Performing Organization Address [facility] Co de Phone Number [facility] [address] [address] * HS TROPONIN (11/30/2023 7:02 PM CDT) [facility] HS Troponin I <3 <=14 ng/L [facility] Blood 11/30/2023 7:02 PM CDT 11/30/2023 7:08 PM CDT Narrative [facility] - 11/30/2023 7:34 PM CDT First Occurrence of the Troponin order is to be drawn Stat by Nursing staff on the unit. Jian Howell MD LABORATORY Performing Organization Address [facility] Co de Phone Number [address] [address] * ETHANOL (ETOH) LEVEL, BLOOD (11/30/2023 7:02 PM CDT) [facility] Ethanol Negative Negative g/dL [facility] Blood 11/30/2023 7:02 PM CDT 11/30/2023 7:17 PM CDT Jian Howell MD LABORATORY Performing Organization Address City/[facility] Co de Phone Number [facility] [address] [address] * PTT (APTT) (11/30/2023 7:02 PM CDT) APTT 31.0 25.0 - 37.0 sec [facility] Blood 11/30/2023 7:02 PM CDT 11/30/2023 7:17 PM CDT Jian Howell MD LABORATORY Performing Organization Address [facility] Co de Phone Number [facility] [address] [address] * ED INR (11/30/2023 7:02 PM CDT) Pathologist [facility] ED INR 1.0 0.8 - 1.1 [facility] Comment: Warfarin Therapeutic Range: Standard Intensity: 2.0 - 3.0 High Intensity: 2.5 - 3.5 This is a rapid INR screening test which uses whole blood; results may infrequently differ from plasma INR results. If medication adjustments/dosing are required a PT/INR test ([id number]) should be ordered and performed in the main laboratory. Blood 11/30/2023 7:02 PM CDT 11/30/2023 7:08 PM CDT Jian Howell MD LABORATORY Performing Organization Address [facility] Co de Phone Number [facility] [address] [address] * PRECAUTIONARY TUBE (11/30/2023 7:02 PM CDT) Prec Tube Precautionary Blood Bank Specimen Received. [facility] Blood 11/30/2023 7:02 PM CDT 11/30/2023 7:17 PM CDT Jian Howell MD LAB TRANSFUSION SERV ICES [facility] [address] [address] * LACTATE (LACTIC ACID) (11/30/2023 7:02 PM CDT) Pathologist [facility] Lactate 1.5 0.7 - 2.1 mmol/L [facility] Blood 11/30/2023 7:02 PM CDT 11/30/2023 7:09 PM CDT Narrative [facility] - 11/30/2023 7:16 PM CDT Send specimen on ice! Jian Howell MD LABORATORY Performing Organization Address [facility] Co de Phone Number [facility] [address] [address] * FIBRINOGEN (11/30/2023 7:02 PM CDT) [facility] Fibrinogen 222 200 - 400 mg/dL [facility] Blood 11/30/2023 7:02 PM CDT 11/30/2023 7:17 PM CDT Jian Howell MD LABORATORY Performing Organization Address [facility] Co de Phone Number [facility] [address] [address] * (ABNORMAL) PANEL HEPATIC FUNCTION (11/30/2023 7:02 PM CDT) [facility] Total Protein 6.0(L) 6.4 - 8.3 g/dL [facility] Albumin 4.2 3.8 - 5.1 g/dL [facility] Bili Total <0.2 <=1.2 mg/dL [facility] Bili Direct na <=0.3 mg/dL [facility] Comment:BILID < 0.2. Accurac y of result suspect due to hemolysis. Alk Phos 104 35 - 104 IU/L [facility] Comment:No reference range e stablished for patients <18 years old. ALT (SGPT) na <=33 IU/L [facility] Comment:ALT = 8. Accuracy of result suspect due to hemolysis. AST(SGOT) na 5 - 40 IU/L [facility] Comment:AST = 20. Accuracy o f result suspect due to hemolysis. Blood 11/30/2023 7:02 PM CDT 11/30/2023 7:17 PM CDT Jian Howell MD LABORATORY Performing Organization Address City/[facility]/ZIP Co de Phone Number [facility] [place] [address] * (ABNORMAL) ED HEMOGLOBIN TOTAL (ED ONLY) (11/30/2023 7:02 PM CDT) Hgb 10.2(L) 11.5 - 15.7 g/dL [facility] Blood 11/30/2023 7:02 PM CDT 11/30/2023 7:09 PM CDT Jian Howell MD LABORATORY Performing Organization Address City/[facility] Co de Phone Number [facility] [place] [address] * (ABNORMAL) ED CHEMISTRY LABS(NA,K,CL,CO2,GLU,CREAT,CA-IONIZED,ANION GAP) (11/30/2023 7:02 PM CDT) Sodium 140 135 - 148 mmol/L [facility] Chloride 111(H) 92 - 108 mmol/L [facility] AnGap 7(L) 8 - 16 mmol/L [facility] Glucose 99 70 - 100 mg/dL [facility] ICA, Actual 4.40 4.40 - 5.20 mg/dL [facility] ICA, pH Corrected 4.50 4.40 - 5.20 mg/dL [facility] Creatinine 0.95 0.50 - 1.00 mg/dL [facility] BICARB 22 22 - 26 mEq/L [facility] eGFR (2020 CKD-EPI) 68 >=60 ml/min/1.7 3m2 [facility] Comment: The estimated glomerular filtration rate (eGFR) was calculated using the CKD-EPI 2020 creatinine equation, which does not include race as a factor. This equation is validated in individuals 18 years of age and older, and eGFR is normalized to a body surface area of 1.73m^2. Potassium 4.5 3.5 - 5.3 mmol/L [facility] Blood 11/30/2023 7:02 PM CDT 11/30/2023 7:09 PM CDT Jian Howell MD LABORATORY [facility] [address] [place] [address] * (ABNORMAL) CBC WITH PLTS/AUTO DIFF (11/30/2023 7:02 PM CDT) WBC 9.81 4.00 - 10.00 k/cmm [facility] RBC 3.98 3.90 - 5.20 m/cmm [facility] Hgb 10.1(L) 11.5 - 15.7 g/dL [facility] Hematocrit 32.6(L) 34.0 - 45.0 % [facility] MCV 81.9 80.0 - 100.0 fL [facility] MCH 25.4 25.0 - 32.0 pg [facility] MCHC 31.0 31.0 - 36.0 g/dL [facility] RDW 16.9(H) 11.5 - 14.5 % [facility] Plt 233 150 - 400 k/cmm [facility] MPV 9.1 6.5 - 12.5 fL [facility] Automated Abs Neutrophil 6.22 1.70 - 6.50 k/cmm [facility] Comment:Preliminary ANC, Fin al Result to Follow Abs Immature Granulocyte 0.03 0.00 - 0.09 k/cmm [facility] Comment:The Immature Granulo cyte Absolute count contains metamyelocytes and myelocytes. Abs Neutrophil 6.22 1.70 - 6.50 k/cmm [facility] Abs Lymphocyte 2.73 0.80 - 4.00 k/cmm [facility] Abs Monocyte 0.49 0.20 - 1.00 k/cmm [facility] Abs Eosinophil 0.30 0.00 - 0.60 k/cmm [facility] Abs Basophil 0.04 0.00 - 0.20 k/cmm [facility] Blood 11/30/2023 7:02 PM CDT 11/30/2023 7:16 PM CDT Jian Howell MD LABORATORY Performing Organization Address [facility] Co de Phone Number [facility] [address] [address] * (ABNORMAL) BLOOD GASES (11/30/2023 7:02 PM CDT) PH Juvenal 7.40 7.32 - 7.42 [facility] PCO2 Juvenal 38(L) 41 - 51 mmHG [facility] PO2 Juvenal 39 25 - 40 mmHG [facility] Bicarb Juvenal 23(L) 24 - 28 mEq/L [facility] O2 Sat Juvenal 73 % [facility] Base Exc Juvenal -1.2 -10.0 - 2.0 mmol/L [facility] Blood Venous 11/30/2023 7:02 PM CDT 11/30/2023 7:09 PM CDT Jian Howell MD LABORATORY Performing Organization Address [facility] Co de Phone Number [facility] [address] [address] * ED US CRITICAL CARE (11/30/2023 6:59 [...] (Infusion completed - Provider: Kobi Dean RN) [facility] REC REVIEW BY PHARMACY(Linked Group [...] Until Discontinued [id number] (Given - Provider: Akash Bradfodr RN)[id number] (Not Given (removes Due time) - [...] Procedure documented in this encounter Care Teams I O Psychologist Relationship Specialty Start Date End Date [facility] [place] [address] PCP - General 03/18/09 documented as of this encounter
--- OUTSIDE RECORDS SUMMARY | 2023-12-14 02:59 | XMS_ITS | Encounter Summary ---
Author Organization [facility] Address [address] [place] [address] [place] [address] Care Team Providers Care Professor Of Public Administration Name Role Phone [facility]- Unava ilable Hayes Mcelroy MD Primary Care Provider [phone] Encounter Details Date Type Department Care Team (Latest Contact Info) Description 10/28/2023 Travel Social History Tobacco Use Types Packs/Day Years Used Date Smoking Tobacco: Former Cigarettes Smokeless Tobacco: Never Comments:Quit august 2023 Alcohol Use Standard Drinks/Week Comments Not Currently 0 (1 standard drink = 0.6 oz pur e alcohol) [facility] Utilities Answer Date Recorded In the [...] any time in the past 12 m [facility], were you homeless or living [...] on filedocumented in this encounter Care Teams Professor Of Public Administration Relationship Specialty Start Date End Date [facility]- [address] [place] [address] PCP - Primary Care Clinic 09/18/22 [place] [address] [place] [address] PCP - General 05/20/23 documented as of this encounter
--- OUTSIDE RECORDS SUMMARY | 2023-12-14 02:59 | XMS_ITS | Clinical Summary ---
Author Organization [facility] Address [address] [place] [address] Care Team Providers Care Special Warfare Operator Name Role Phone Tommy Mcelroy MD Primary Care Provider [phone] Allergies Active Allergy Reactions Criticality Noted Date Comments Baclofen 12/23/2012 Diphenhydramine-Zinc Acetate Other (See Comments) 04/24/2011 Makes restless leg symptoms worse. Compazine Anaphylaxis 10/23/2004 Cyclobenzaprine Other (See Comments) 04/24/2011 Makes restless leg symptoms worse. Cyclobenzaprine Hcl 12/23/2012 Methocarbamol Other (See Comments) 04/24/2011 Makes restless leg symptoms worse. Mirtazapine 12/23/2012 Fhjyghfxfpdb-Twtpwkf-Ogjy ine 12/23/2012 Medications pramipexole (MIRAPEX) 0.125 MG [...] on file Legal Sex Female 3:09 AM CODER OPERATOR Gender Identity Not on file Sexual Orientation Not on file Last Filed Vital Signs Vital Sign Reading Time Taken Comments Blood Pressure 111/70 01/08/2023 1:50 PM CODER OPERATOR Pulse 73 01/08/2023 1:50 PM CODER OPERATOR Temperature 36.7 ??C (98 ??F) 01/08/2023 1:50 PM CODER OPERATOR Respiratory Rate 18 01/08/2023 1:50 PM CODER OPERATOR Oxygen Saturation 96% 01/08/2023 1:50 PM CODER OPERATOR Inhaled Oxygen Concentration - - Weight [...] this topic Medical Devices Implanted Type Area Ladle Cleaner Device Identifier Shelf Expiration Date Model / Serial / Lot Graft Bone Foam Pack Vitoss 10ml Bio Active Implanted:Qty: 1 on 05/02/2011 at [facility] N/A: Spine Lumbar 10/04/2012 / / [id number] Iom Supplies Implanted:Qty: 1 on 05/02/2011 at [facility] Cell Saver Standby Implanted:Qty: 1 on 05/02/2011 at [facility] Graft Bone Crush Canc 15ml [id number] Implanted:Qty: 1 on 05/02/2011 at [facility] N/A: Spine Lumbar [id number] / [id number] / 14x12 Align Implanted:Qty: 1 on 05/02/2011 at [facility] N/A: Spine Lumbar [id number] / / [id number] 16x12 Align Implanted:Qty: 1 on 05/02/2011 at [facility] N/A: Spine Lumbar [id number] / / [id number] 25mm Plate Implanted:Qty: 1 on 05/02/2011 at [facility] N/A: Spine Lumbar [id number] / / [id number] 25mm Screw Implanted:Qty: 4 on 05/02/2011 at [facility] N/A: Spine Lumbar [id number] / / [id number] Imp Washer Syn [place] 13.5x5.5mm Implanted:Qty: 2 on 05/02/2011 at [facility] N/A: Spine Lumbar 219.951 / / 0106 [id number] Imp Scr Syn Canc 6.7b034tk Ft Ti Implanted:Qty: 2 on 05/02/2011 at [facility] N/A: Spine Lumbar 418.025 / / 0106 [id number] Spf-Plus 60/M Implantable Spinal Fusion Stimulator Implanted:Qty: 1 on 03/02/2014 by Brock Sawyer MD at [facility] N/A: Back [employer] INC 07/03/2015 10-1398M / [id number] / Graft Bone Foam Pack Vitoss 10ml Bio Active Implanted:Qty: 1 on 03/02/2014 by Brock Sawyer MD at [facility] N/A: Back ORTHOVITA 09/10/2015 / / [id number] Imp Scr Medt 5.5/6.0mm Solera 6.5x45mm Ma [id number] Implanted:Qty: 4 on 03/02/2014 by Brock Saywer MD at [facility] N/A: Back [employer] [id number] / / [id number] 2014 Imp Scr Medt 5.5/6.0mm Solera 8.5x70mm Ma [id number] Implanted:Qty: 2 on 03/02/2014 by Brock Sawyer MD at [facility] N/A: Back [employer] [id number] / / [id number] 01 MAR 2014 Imp Scr Set Medt Solera Break Off 5.5mm Ti [id number] Implanted:Qty: 6 on 03/02/2014 by Brock Sawyer MD at [facility] N/A: Back [employer] [id number] / / [id number] 01 MAR 2014 Imp Beltran Medt Solera Cvd 5.3u137wy Ti [id number] Implanted:Qty: 2 on 03/02/2014 by Brock Sawyer MD at [facility] N/A: Back [employer] [id number] / / [id number] 02 MAR 2014 Imp Scr Syn Can 4.0x20mm Ft Ss 206.020 Implanted:Qty: 2 on 03/02/2014 by Brock Sawyer MD at [facility] N/A: Back SYNTHES-STRATEC 206.020 / / Impulse Implanted:Qty: 1 on 03/02/2014 by Brock Sawyer MD at [facility] Explanted Type Area Ladle Cleaner Device Identifier Shelf Expiration Date Model / Serial / Lot Imp Scr Danek Sext Can 6.5x40mm Legacy Ti Implanted:Qty: 2 on 05/02/2011 at [facility] Explanted:Qty: 2 on 03/02/2014 at [facility] N/A: Spine Lumbar [id number] / / [id number] 01MAY2011 Imp Scr Danek Set G4 Internal Hex [id number] Implanted:Qty: 4 on 05/02/2011 at [facility] Explanted:Qty: 4 on 03/02/2014 at [facility] N/A: Spine Lumbar [id number] / / [id number] 01MAY2011 Imp Beltran Danek Sext 60mm Ti [id number] Implanted:Qty: 2 on 05/02/2011 at [facility] Explanted:Qty: 2 on 03/02/2014 at [facility] N/A: Spine Lumbar [id number] / / [id number] 01MAY2011 Imp Scr Danek Sext Can 6.5x45mm Legacy Ti Implanted:Qty: 2 on 05/02/2011 at [facility] Explanted:Qty: 2 on 03/02/2014 at [facility] N/A: Spine Lumbar [id number] / / [id number] 01MAY2011 Description:BILATERAL SCREWS FROM S1, SCREW HEAD REMOVED, SCREW SHAFT REMAINS Procedures Procedure Name Priority Date/Time Associated Diagnosis Comments COMPREHENSIVE METABOLIC PANEL STAT 11/27/2014 4:05 PM CDT from Last 3 Months or Most Recently Relevant to Health Maintenance Results * (ABNORMAL) Comprehensive metabolic panel (11/27/2014 4:05 PM CDT) Sodium 139 133 - 144 mmol/L [facility] Potassium 4.0 3.4 - 5.3 mmol/L [facility] Chloride 105 94 - 109 mmol/L [facility] Carbon Dioxide 27 20 - 32 mmol/L [facility] Anion Gap 7 3 - 14 mmol/L [facility] Glucose 158(H) 70 - 99 mg/dL [facility] Urea Nitrogen 13 7 - 30 mg/dL [facility] Creatinine 0.76 0.52 - 1.04 mg/dL [facility] GFR Estimate 79 >60 mL/min/1. 7m2 [facility] Comment:Non GFR Calc GFR Estimate If Black >90 GFR Calc >60 mL/min/1. 7m2 [facility] Calcium 8.8 8.5 - 10.1 mg/dL [facility] Bilirubin Total 0.2 0.2 - 1.3 mg/dL [facility] Albumin 4.1 3.4 - 5.0 g/dL [facility] Protein Total 7.4 6.8 - 8.8 g/dL [facility] Alkaline Phosphatase 135 40 - 150 U/L [facility] ALT 55(H) 0 - 50 U/L [facility] AST 30 0 - 45 U/L [facility] Blood specimen (specimen) 11/27/2014 4:05 PM CDT 11/27/2014 4:14 PM CDT us Ian Monsivais MD LAB - BLOOD ORDERABLES Final Re sult [facility] [address] [address], [facility] [phone] from Last 3 Months or Most Recently Relevant to Health Maintenance Insurance none (Work) [address] [place], [place] [address] MEDICARE MEDICA [employer] MEDICARE [employer] OTHER OTHER none (Work) [address] [place] [address] [facility] [employer]ANCE Advance Directives For more information, please contact: [phone] * Full Code (Latest Code Status on File) Date Activated Date Inactivated Comments 05/02/2011 8:26 PM 05/06/2011 2:41 PM * Full Code Date Activated Date Inactivated Comments 05/02/2011 2:17 PM 05/02/2011 8:26 PM Care Teams Special Warfare Operator Relationship Specialty Start Date End Date Tommy Mcelroy MD PCP - General Family Practice 04/16/11
--- OUTSIDE RECORDS SUMMARY | 2023-12-14 02:59 | XMS_ITS | Encounter Summary ---
Author Organization [facility] Address [address] [place] [address] [place] [address] Care Team Providers Care Lead Manufacturing Engineer Name Role Phone [facility]- Unava ilable Hayes Mcelroy MD Primary Care Provider [phone] Encounter Details Date Type Department Care Team (Latest Contact Info) Description 2023 Travel Social History Tobacco Use Types Packs/Day Years Used Date Smoking Tobacco: Former Cigarettes Smokeless Tobacco: Never Comments:Quit august 2023 Alcohol Use Standard Drinks/Week Comments Not Currently 0 (1 standard drink = 0.6 oz pur e alcohol) [facility] Utilities Answer Date Recorded In [...] any time in the past 12 m [facility], were you homeless or living in a group home (including now)? No 09/23/2023 Sex and Gender Information Value Date Recorded Sex Assigned at Not on file Gender Identity Not on file Sexual Orientation Not on file documented as of this encounter Plan of Treatment Not on file documented as of this encounter Visit Diagnoses Not on filedocumented in this encounter Care Teams Lead Manufacturing Engineer Relationship Specialty Start Date End Date [facility] [address] [place] [address] PCP - Primary Care Clinic 09/18/22 [place] [address] [place] [address] PCP - General 05/20/23 documented as of this encounter
--- OUTSIDE RECORDS SUMMARY | 2023-12-14 02:59 | XMS_ITS | Clinical Summary ---
Author Organization [facility] Address [address] [place] [address] [place] [address] Care Team Providers Care Phosphoric Acid Supervisor Name Role Phone [facility]- Unava ilable Hayes Mcelroy MD Primary Care Provider [phone] Allergies Active Allergy Reactions Criticality Noted Date Comments Atorvastatin Other 09/30/2019 Skin irritation around eyes Baclofen Nausea Low 12/23/2012 Rlauxqrykvaa-Lcmruly-Okquib e Low 12/23/2012 Cyclobenzaprine Low 04/24/2011 Other [...] 10/16/2022 Active naloxone (NARCAN) 4 mg/actuation Nasal [place] Administer one dose (4 mg) into nostril [...] (11/11/2022): Added automatically from request for surgery [id number] Chronic anemia 08/22/2021 Type 2 diabetes mellitus [...] Description 2023 9:40 AM CDT Office Visit [facility] [address] [place] [phone] Brock Sawyer MD S/P lumbar fusion (Primary Dx) 2023 Travel 10/28/2023 9:15 AM CDT Office Visit [facility] ([facility]) [address] [facility] [address] [place] [phone] Jg Ivory PA-C Postoperative state (Primary Dx); S/P lumbar fusion; Lumbar spine pain 10/28/2023 Travel 09/23/2023 8:00 AM CDT - 09/23/2023 9:35 AM CDT Surgery [facility] Operating Room [address] [place] [address] [place] [address] Brock Sawyer MD BILATERAL HARDWARE REMOVAL L2- PELIVS WITH EXPLORATION OF L3-4 FUSION AND REPLACEMENT OF RODS L3-4 09/23/2023 5:55 AM CDT - 09/25/2023 11:44 AM CDT Hospital Encounter [facility] [place] [address] [place] [address] Brock Sawyer MD Chronic pain disorder Discharge Disposition: Returning Home/Self Care 09/22/2023 Travel from Last 3 Months Social History Tobacco Use Types Packs/Day Years Used Date Smoking Tobacco: Former Cigarettes Smokeless Tobacco: Never Tobacco Cessation:Counseling Given: Not Answered Comments:Quit august 2023 Alcohol Use Standard Drinks/Week Comments Not Currently 0 (1 standard drink = 0.6 oz pur e alcohol) [facility] Utilities Answer Date Recorded In [...] any time in the past 12 m [facility], were you homeless or living in a [...] 10/26/2018, 08/17/2018 Medical Devices Implanted Type Area Scout Device Identifier Shelf Expiration Date Model / Serial / Lot Beltran 50mm 5.5mm Ccm Curv - [id number] Implanted:Qty : 1 on 09/23/2023 by Brock Sawyer MD at [facility] Beltran N/A: Spine Lumbar Medtronic Inc [id number] / / Beltran 60mm 5.5mm Ccm Curv - [id number] Implanted:Qty : 1 on 09/23/2023 by Brock Sawyer MD at [facility] Beltran N/A: Spine Lumbar Medtronic Inc [id number] / / Set Screw Solera Brk Off - [id number] Implanted:Qty : 4 on 09/23/2023 by Brock Sawyer MD at [facility] Screw/An chor N/A: Spine Lumbar Medtronic Inc [id number] / / Procedures Procedure Name Priority Date/Time [...] - 100 mg/dL 09/25/2023 11:36 AM CDT [facility] Blood 09/25/2023 7:53 AM CDT 09/25/2023 11:36 AM CDT Brock Sawyer MD LAB POINT OF CARE TEST RESULTS Performing Organization Address City/State/[facility] Co de Phone Number [facility] [address] [place] [address] * XR C-ARM SPINE (09/23/2023 9:14 AM [...] (4%) Tube type: Single Lumen Performed by: Nya Zamudio APRN, CRNA, CRNA Post-procedure assessment: BBS and EtCO2 + Cuff inflated: yes ETT to lip: 21 cm Sumit Albert MD AN BLOCKS from Last 3 Months Advance Directives For more information, please contact: [phone] * Full Code (Latest Code Status on File) Date Activated Date Inactivated Comments 09/24/2023 3:26 PM 09/25/2023 5:49 PM Question Answer Comments How was code status determined? Patient * Full Code Date Activated Date Inactivated Comments 09/23/2023 5:59 AM 09/23/2023 9:48 AM Question Answer Comments How was code status determined? Previous [facility] Care Teams Phosphoric Acid Supervisor Relationship Specialty Start Date End Date [facility]- [address] [place] [address] PCP - Primary Care Clinic 09/18/22 [place] [address] [place] [address] PCP - General 05/20/23
--- OUTSIDE RECORDS SUMMARY | 2023-12-14 02:59 | XMS_ITS | Referral Summary ---
Author Organization [facility] Address [address] [place] [address] Care Team Providers Care Special Procedures Technologist Name Role Phone [facility]- Unava ilable Hayes Mcelroy MD Primary Care Provider [phone] Encounters Date Type Department Care Team Description 2023 Travel 2023 9:40 AM CDT Office [facility]) [address] [facility] [place] [phone] Brock Sawyer MD S/P lumbar fusion (Primary Dx) 10/28/2023 Travel 10/28/2023 9:15 AM CDT Office Visit [facility] ([facility]) [address] [place] [phone] Jg Ivory PA-C Postoperative state (Primary Dx); S/P lumbar fusion; Lumbar spine pain 09/23/2023 5:55 AM CDT - 09/25/2023 11:44 AM CDT Hospital Encounter [facility] [place] [address] [place] [id number] Brock Sawyer MD Chronic pain disorder Discharge Disposition: Returning Home/Self Care 09/23/2023 8:00 AM CDT - 09/23/2023 9:35 AM CDT Surgery [facility] Operating Room [address] [facility] [place] [address] Brock Sawyer MD BILATERAL HARDWARE REMOVAL L2- PELIVS WITH EXPLORATION OF L3-4 FUSION AND REPLACEMENT OF RODS L3-4 09/22/2023 Travel from Last 3 Months Allergies Active Allergy Reactions Criticality Noted Date Comments Atorvastatin Other 09/30/2019 Skin irritation around eyes Baclofen Nausea Low 12/23/2012 Mjngyimglkne-Zlqzlvx-Tvulup e Low 12/23/2012 Cyclobenzaprine Low 04/24/2011 Other [...] 10/16/2022 Active naloxone (NARCAN) 4 mg/actuation Nasal [place] Administer one dose (4 mg) into nostril [...] (11/11/2022): Added automatically from request for surgery [id number] Chronic anemia 08/22/2021 Type 2 diabetes mellitus [...] were you homeless or living in a longterm (including now)? No 09/23/2023 Sex and Gender [...] on file Medical Devices Implanted Type Area Skin Tanner Device Identifier Shelf Expiration Date Model / Serial / Lot Beltran 50mm 5.5mm Ccm Curv - [id number] Implanted:Qty : 1 on 09/23/2023 by Brock Sawyer MD at [facility] Beltran N/A: Spine Lumbar Medtronic Inc [id number] / / Beltran 60mm 5.5mm Ccm Curv - [id number] Implanted:Qty : 1 on 09/23/2023 by Brock Sawyer MD at [facility] Beltran N/A: Spine Lumbar Medtronic Inc [id number] / / Set Screw Solera Brk Off - [id number] Implanted:Qty : 4 on 09/23/2023 by Brock Sawyer MD at [facility] Screw/An chor N/A: Spine Lumbar Medtronic Inc [id number] / / Procedures Procedure Name Priority Date/Time [...] - 100 mg/dL 09/25/2023 11:36 AM CDT [facility] Blood 09/25/2023 7:53 AM CDT 09/25/2023 11:36 AM CDT Brock Sawyer MD LAB POINT OF CARE TEST RESULTS [facility] [address] [place] [address] * XR C-ARM SPINE (09/23/2023 9:14 AM [...] Advance Directives For more information, please contact: [phone] * Full Code (Latest Code Status on File) Date Activated Date Inactivated Comments 09/24/2023 3:26 PM 09/25/2023 5:49 PM Question Answer Comments How was code status determined? Patient * Full Code Date Activated Date Inactivated Comments 09/23/2023 5:59 AM 09/23/2023 9:48 AM Question Answer Comments How was code status determined? Previous [facility] Care Teams Special Procedures Technologist Relationship Specialty Start Date End Date [facility]- [address] [place] [address] PCP - Primary Care Clinic 09/18/22 [place] [address] [place] [address] PCP - General 05/20/23
--- OUTSIDE RECORDS SUMMARY | 2023-12-14 02:59 | XMS_ITS | Referral Summary ---
Author Organization [facility] Address [address] [place] [address] Care Team Providers Care Conductor Freight Name Role Phone Tommy Mcelroy MD Primary Care Provider [phone] Allergies Active Allergy Reactions Criticality Noted Date Comments Baclofen 12/23/2012 Diphenhydramine-Zinc Acetate Other (See Comments) 04/24/2011 Makes restless leg symptoms worse. Compazine Anaphylaxis 10/23/2004 Cyclobenzaprine Other (See Comments) 04/24/2011 Makes restless leg symptoms worse. Cyclobenzaprine Hcl 12/23/2012 Methocarbamol Other (See Comments) 04/24/2011 Makes restless leg symptoms worse. 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 Inhaled Oxygen Concentration - - Weight 77.1 kg (170 lb) 11/27/2014 3:41 PM CDT Height 175.3 cm (5' 9) 11/27/2014 3:41 PM CDT Body Mass Index 25.1 11/27/2014 3:41 PM CDT Plan of Treatment Not on file Medical Devices Implanted Type Area Railroad Brake Repairer Device Identifier Shelf Expiration Date Model / Serial / Lot Graft Bone Foam Pack Vitoss 10ml Bio Active Implanted:Qty: 1 on 05/02/2011 at [facility] N/A: Spine Lumbar 10/04/2012 / / [id number] Iom Supplies Implanted:Qty: 1 on 05/02/2011 at [facility] Cell Saver Standby Implanted:Qty: 1 on 05/02/2011 at [facility] Graft Bone Crush Canc 15ml [id number] Implanted:Qty: 1 on 05/02/2011 at [facility] N/A: Spine Lumbar [id number] / [id number] / 14x12 Align Implanted:Qty: 1 on 05/02/2011 at [facility] N/A: Spine Lumbar [id number] / / [id number] 16x12 Align Implanted:Qty: 1 on 05/02/2011 at [facility] N/A: Spine Lumbar [id number] / / [id number] 25mm Plate Implanted:Qty: 1 on 05/02/2011 at [facility] N/A: Spine Lumbar [id number] / / [id number] 25mm Screw Implanted:Qty: 4 on 05/02/2011 at [facility] N/A: Spine Lumbar [id number] / / [id number] Imp Washer Syn [place] 13.5x5.5mm Implanted:Qty: 2 on 05/02/2011 at [facility] N/A: Spine Lumbar 219.951 / / 0106 [id number] Imp Scr Syn Canc 6.8k565pp Ft Ti Implanted:Qty: 2 on 05/02/2011 at [facility] N/A: Spine Lumbar 418.025 / / 0106 [id number] Spf-Plus 60/M Implantable Spinal Fusion Stimulator Implanted:Qty: 1 on 03/02/2014 by Brock Sawyer MD at [facility] N/A: Back [employer] 07/03/2015 10-1398M / [id number] / Graft Bone Foam Pack Vitoss 10ml Bio Active [id number] Implanted:Qty: 1 on 03/02/2014 by Brock Sawyer MD at [facility] N/A: Back ORTHOVITA 09/10/2015 [id number] / / [id number] Imp Scr Medt 5.5/6.0mm Solera 6.5x45mm Ma [id number] Implanted:Qty: 4 on 03/02/2014 by Brock Sawyer MD at [facility] N/A: Back [employer] [id number] / / [id number] 2014 Imp Scr Medt 5.5/6.0mm Solera 8.5x70mm Ma [id number] Implanted:Qty: 2 on 03/02/2014 by Brock Sawyer MD at [facility] N/A: Back [employer] [id number] / / [id number] 01 MAR 2014 Imp Scr Set Medt Solera Break Off 5.5mm Ti [id number] Implanted:Qty: 6 on 03/02/2014 by Brock Sawyer MD at [facility] N/A: Back [employer] [id number] / / [id number] 01 MAR 2014 Imp Beltran Medt Solera Cvd 5.9n165qy Ti [id number] Implanted:Qty: 2 on 03/02/2014 by Brock Sawyer MD at [facility] N/A: Back [employer] [id number] / / [id number] 02 MAR 2014 Imp Scr Syn Can 4.0x20mm Ft Ss 206.020 Implanted:Qty: 2 on 03/02/2014 by Brock Sawyer MD at [facility] N/A: Back SYNTHES-STRATEC 206.020 / / Impulse Implanted:Qty: 1 on 03/02/2014 by Brock Sawyer MD at [facility] Explanted Type Area Railroad Brake Repairer Device Identifier Shelf Expiration Date Model / Serial / Lot Imp Scr Danek Sext Can 6.5x40mm Legacy Ti Implanted:Qty: 2 on 05/02/2011 at [facility] Explanted:Qty: 2 on 03/02/2014 at [facility] N/A: Spine Lumbar [id number] / / [id number] 01MAY2011 Imp Scr Danek Set G4 Internal Hex [id number] Implanted:Qty: 4 on 05/02/2011 at [facility] Explanted:Qty: 4 on 03/02/2014 at [facility] N/A: Spine Lumbar [id number] / / [id number] 01MAY2011 Imp Beltran Danek Sext 60mm Ti [id number] Implanted:Qty: 2 on 05/02/2011 at [facility] Explanted:Qty: 2 on 03/02/2014 at [facility] N/A: Spine Lumbar [id number] / / [id number] 01MAY2011 Imp Scr Danek Sext Can 6.5x45mm Legacy Ti Implanted:Qty: 2 on 05/02/2011 at [facility] Explanted:Qty: 2 on 03/02/2014 at [facility] N/A: Spine Lumbar [id number] / / [id number] 01MAY2011 Description:BILATERAL SCREWS FROM S1, SCREW HEAD REMOVED, SCREW SHAFT REMAINS Procedures Procedure Name Priority Date/Time Associated Diagnosis Comments COMPREHENSIVE METABOLIC PANEL STAT 11/27/2014 4:05 PM CDT from Last 3 Months or Most Recently Relevant to Health Maintenance Results * (ABNORMAL) Comprehensive metabolic panel (11/27/2014 4:05 PM CDT) Sodium 139 133 - 144 mmol/L [facility] Potassium 4.0 3.4 - 5.3 mmol/L [facility] Chloride 105 94 - 109 mmol/L [facility] Carbon Dioxide 27 20 - 32 mmol/L [facility] Anion Gap 7 3 - 14 mmol/L [facility] Glucose 158(H) 70 - 99 mg/dL [facility] Urea Nitrogen 13 7 - 30 mg/dL [facility] Creatinine 0.76 0.52 - 1.04 mg/dL [facility] GFR Estimate 79 >60 mL/min/1. 7m2 [facility] Comment:Non GFR Calc GFR Estimate If Black >90 GFR Calc >60 mL/min/1. 7m2 [facility] Calcium 8.8 8.5 - 10.1 mg/dL [facility] Bilirubin Total 0.2 0.2 - 1.3 mg/dL [facility] Albumin 4.1 3.4 - 5.0 g/dL [facility] Protein Total 7.4 6.8 - 8.8 g/dL [facility] Alkaline Phosphatase 135 40 - 150 U/L [facility] ALT 55(H) 0 - 50 U/L [facility] AST 30 0 - 45 U/L [facility] Blood specimen (specimen) 11/27/2014 4:05 PM CDT 11/27/2014 4:14 PM CDT us Ian Monsivais MD LAB - BLOOD ORDERABLES Final Re sult [facility] [address] [place] [address] [phone] from Last 3 Months or Most Recently Relevant to Health Maintenance Insurance none (Work) [address] [place] [address] MEDICARE MED[employer] [place] [id number] MEDICARE Ur[employer] [place] [id number] OTHER OTHER none (Work) [address] [place] [address] [facility] INSURANCE Advance Directives For more information, please contact: [phone] * Full Code (Latest Code Status on File) Date Activated Date Inactivated Comments 05/02/2011 8:26 PM 05/06/2011 2:41 PM * Full Code Date Activated Date Inactivated Comments 05/02/2011 2:17 PM 05/02/2011 8:26 PM Care Teams Conductor Freight Relationship Specialty Start Date End Date Tommy Mcelroy MD PCP - General Family Practice 04/16/11
--- OUTSIDE RECORDS SUMMARY | 2023-12-14 02:59 | XMS_ITS | Encounter Summary ---
Author Organization [facility] Address [address] [place] [address] Care Team Providers Care Distribution Clerk Name Role Phone [facility]- Unava ilable Hayes Mcelroy MD Primary Care Provider [phone] Reason for Referral * (Routine) - Open Specialty Diagnoses / Procedures Referred By Contac t Referred To Contact Procedures Discharge Instructions Vladimir Paez PA-C [address] [address] Referral ID Status Reason Start Date Expiration Date Visits Re quested Visits Authorized [id number] Open 09/25/2023 1 1 * (Routine) - Open Specialty Diagnoses / Procedures Referred By Contac t Referred To Contact Procedures Discharge Instructions Vladimir Paez PA-C [address] [address] Referral ID Status Reason Start Date Expiration Date Visits Re quested Visits Authorized [id number] Open 09/25/2023 1 1 * (Routine) - Open Specialty Diagnoses / Procedures Referred By Contac t Referred To Contact Procedures Discharge Instructions Vladimir Paze PA-C [address] [address] Referral ID Status Reason Start Date Expiration Date Visits Re quested Visits Authorized [id number] Open 09/25/2023 1 1 * (Routine) - Open Specialty Diagnoses / Procedures Referred By Contac t Referred To Contact Procedures Wound care Vladimir Paez PA-C [address] [address] Referral ID Status Reason Start Date Expiration Date Visits Re quested Visits Authorized [id number] Open 09/25/2023 1 1 * (Routine) - Open Specialty Diagnoses / Procedures Referred By Contac t Referred To Contact Procedures Dressing Change Vladimir Paez PA-C [address] [address] Referral ID Status Reason Start Date Expiration Date Visits Re quested Visits Authorized [id number] Open 09/25/2023 1 1 * (Routine) - Open Specialty Diagnoses / Procedures Referred By Contac t Referred To Contact Procedures Discharge Instructions Vladimir Paez PA-C [address] [address] Referral ID Status Reason Start Date Expiration Date Visits Re quested Visits Authorized [id number] Open 09/25/2023 1 1 * (Routine) - Open Specialty Diagnoses / Procedures Referred By Contac t Referred To Contact Procedures Shower Vladimir Paez PA-C [address] [address] Referral ID Status Reason Start Date Expiration Date Visits Re quested Visits Authorized [id number] Open 09/25/2023 1 1 * (Routine) - Open Specialty Diagnoses / Procedures Referred By Contac t Referred To Contact Procedures Discharge Instructions Vladimir Paez PA-C [address] [address] Referral ID Status Reason Start Date Expiration Date Visits Re quested Visits Authorized [id number] Open 09/25/2023 1 1 * (Routine) - Open Specialty Diagnoses / Procedures Referred By Contac t Referred To Contact Procedures Activity as tolerated Vladimir Paez PA-C [address] [address] Referral ID Status Reason Start Date Expiration Date Visits Re quested Visits Authorized [id number] Open 09/25/2023 1 1 * (Routine) - Open Specialty Diagnoses / Procedures Referred By Contac t Referred To Contact Vladimir Paez PA-C [address] [address] Blaire Sharif PA-C [address] [address] Referral ID Status Reason Start Date Expiration Date Visits Re quested Visits Authorized [id number] Open 09/25/2023 1 1 Question Answer Specify time frame for follow up? 2 Weeks Instructions to follow-up provider routine post op f/u Comments Return to clinic in 2-4 weeks for post op visit. Please call [phone] option 1 for an appointment if no appointment scheduled within 1 week of discharge * (Routine) - Open Specialty Diagnoses / Procedures Referred By Contac t Referred To Contact Vladimir Paez PA-C [address] [address] Blaire Sharif PA-C [address] [address] Referral ID Status Reason Start Date Expiration Date Visits Re quested Visits Authorized [id number] Open 09/25/2023 1 1 Question Answer Instructions to follow-up provider n/a Comments If you need a refill on your prescriptions, or you have questions or concerns, please call [phone] during office hours, Friday-Friday 8:30 a.m. to 4:30 p.m. Please plan ahead if you are running low and expect to require a refill. * (Routine) - Open Specialty Diagnoses / Procedures Referred By Contac t Referred To Contact Procedures Temperature >101 (38.3 degrees Celsius) Vladimir Paez PA-C [address] [address] Referral ID Status Reason Start Date Expiration Date Visits Re quested Visits Authorized [id number] Open 09/25/2023 1 1 * (Routine) - Open Specialty Diagnoses / Procedures Referred By Contac t Referred To Contact Procedures Severe uncontrolled pain Vladimir Paez PA-C [address] [address] Referral ID Status Reason Start Date Expiration Date Visits Re quested Visits Authorized [id number] Open 09/25/2023 1 1 * (Routine) - Open Specialty Diagnoses / Procedures Referred By Contac t Referred To Contact Procedures Increased tenderness or swelling Vladimir Paez PA-C [address] [address] Referral ID Status Reason Start Date Expiration Date Visits Re quested Visits Authorized [id number] Open 09/25/2023 1 1 * (Routine) - Open Specialty Diagnoses / Procedures Referred By Contac t Referred To Contact Procedures Persistent nausea or vomiting Vladimir Paez PA-C [address] [address] Referral ID Status Reason Start Date Expiration Date Visits Re quested Visits Authorized [id number] Open 09/25/2023 1 1 * (Routine) - Open Specialty Diagnoses / Procedures Referred By Contac t Referred To Contact Procedures Pain not relieved by medication Vladimir Paez PA-C [address] [address] Referral ID Status Reason Start Date Expiration Date Visits Re quested Visits Authorized [id number] Open 09/25/2023 1 1 * (Routine) - Open Specialty Diagnoses / Procedures Referred By Contac t Referred To Contact Procedures Numbness/pain in extremity Vladimir Paez PA-C [address] [address] Referral ID Status Reason Start Date Expiration Date Visits Re quested Visits Authorized [id number] Open 09/25/2023 1 1 * (Routine) - Open Specialty Diagnoses / Procedures Referred By Contac t Referred To Contact Procedures Increased confusion Vladimir Paez PA-C [address] [address] Referral ID Status Reason Start Date Expiration Date Visits Re quested Visits Authorized [id number] Open 09/25/2023 1 1 * (Routine) - Open Specialty Diagnoses / Procedures Referred By Contac t Referred To Contact Procedures Inability to eat, drink, or take medication Vladimir Paez PA-C [address] [place] [address] Referral ID Status Reason Start Date Expiration Date Visits Re quested Visits Authorized [id number] Open 09/25/2023 1 1 * (Routine) - Open Specialty Diagnoses / Procedures Referred By Contac t Referred To Contact Procedures Difficulty breating, headache, or visual disturbance Vladimir Paez PA-C [address] [place] [address] Referral ID Status Reason Start Date Expiration Date Visits Re quested Visits Authorized [id number] Open 09/25/2023 1 1 * (Routine) - Open Specialty Diagnoses / Procedures Referred By Contac t Referred To Contact Procedures Any questions or concerns Vladimir Paez PA-C [address] [place] [address] Referral ID Status Reason Start Date Expiration Date Visits Re quested Visits Authorized [id number] Open 09/25/2023 1 1 Reason for Visit [...] Expiration Date Visits Re quested Visits Authorized [id number] 1 1 Encounter Details Date Type Department Care Team (Late st Contact Info) Description 09/23/2023 5:55 AM CDT - 09/25/2023 11:44 AM CDT Hospital Encounter W5 [id number] [facility] [place] [place] [address] Brock Sawyer MD [address] [facility] [address] [place] [address] Chronic pain disorder Discharge Disposition: Returning Home/Self Care Social History Tobacco Use Types Packs/Day Years Used Date Smoking Tobacco: Former Cigarettes Smokeless Tobacco: Never Tobacco Cessation:Counseling Given: Not Answered Comments:Quit august 2023 Alcohol Use Standard Drinks/Week Comments Not Currently 0 (1 standard drink = 0.6 oz pur e alcohol) [facility] Utilities Answer Date Recorded In the past 12 months has e [employer], gas, oil, or water Agent Panda threatened to shut off services in your [...] internal fixation device of vertebrae, initial encounter ([facility]) [T84.216A] Principal Problem: Chronic pain disorder PROCEDURES [...] in november.* naloxone (NARCAN) 4 mg/actuation Nasal [place] Administer one dose (4 mg) into nostril [...] re-establish your bowel program. You may take tfaj-kyi-amiojnu stool medications as directed by the package [...] your pain clinic. FOLLOW-UP: She should see [facility] for first recheck in 2-4 weeks. Call for appointment if one not already in place. [phone] Sawyer [phone] Total time spent for discharge on date of discharge: 20 minutes. Vladimir Paez PA-C [facility] documented in this encounter [...] 3 09/25/2023 naloxone (NARCAN) 4 mg/actuation Nasal [place] Administer one dose (4 mg) into nostril [...] - 09/25/2023 11:02 AM CDT Ramona Benavides [place] [id number] P: Discharge A: Discharged ambulatory to home [...] with metformin, chronic lower back pain on OUTSIDE MACHINIST APPRENTICE narcotics, hyperlipidemia managed with Zocor who had [...] exploring L3-4 Fusion and replacement of rods L3-F1tbabl Routine postop cares including DVT prophylaxis pain management, drain management,ambulation per NSGYteam T2DM On OUTSIDE MACHINIST APPRENTICE metformin. Hold for now Very low-dose SSI with hypoglycemia protocol Regular diet at patient request Depression Resume OUTSIDE MACHINIST APPRENTICE Wellbutrin and Cymbalta Chronic pain syndrome 2/2 LBP On OUTSIDE MACHINIST APPRENTICE opoid including Cymbalta. Primary team/NSGY managing pain [...] hours 20 mL/24 hours Vladimir Paez PA-C [facility] * Waqas Rodriguez RN [...] with metformin, chronic lower back pain on OUTSIDE MACHINIST APPRENTICE narcotics, hyperlipidemia managed with Zocor who had [...] exploring L3-4 Fusion and replacement of rods L3-Z5ldhay Routine postop cares including DVT prophylaxis pain management, drain management,ambulation per NSGYteam T2DM On OUTSIDE MACHINIST APPRENTICE metformin. Hold for now Very low-dose SSI with hypoglycemia protocol Regular diet at patient request Depression Resume OUTSIDE MACHINIST APPRENTICE Wellbutrin and Cymbalta Chronic pain syndrome 2/2 LBP On OUTSIDE MACHINIST APPRENTICE opoid including Cymbalta. Primary team/NSGY managing pain [...] for: POTASSIUM, SODIUM, WBC Fabiola Zavala PA-C [facility] * Soco Paez RN [...] to call for help, name of assigned housekeeper child care, PatientInformation booklet, initial physician orders, hourly rounding [...] DM II, chronic lower back pain on OUTSIDE MACHINIST APPRENTICE narcotics, HLD Patient Seen In: Room Family/Caregiver [...] most limited by worsening pain limiting progression [facility] AM-PAC 6-Clicks Turning over in bed [...] CONSULT NOTE Patient Name: Ramona Sanders Address: [address] [place] [address] [place] [address] Age:62 y.o. Sex: female Admission Date/Time: 09/23/2023 [...] with metformin, chronic lower back pain on OUTSIDE MACHINIST APPRENTICE narcotics, hyperlipidemia managed with Zocor. At bedside [...] Other Skin irritation around eyes Baclofen Nausea Bmetaqscmeav-Vsuuipw-Aixjdof Compazine [Prochlorperazine] Other Tongue in and out [...] test results. CONSULTATION ASSESSMENT AND PLAN/RECOMMENDATIONS: Ramona aSnders is a 62 y.o. female who had planned bilateral removal of hardware L2-Pelvis and exploring L3-4 Fusion and replacement of rods L3-L4 under general anesthesia. She tolerated procedure well. ACM was consulted for postoperative medical management. Her past medical history is significant for type 2 diabetes managed with metformin, chronic lower back pain on OUTSIDE MACHINIST APPRENTICE narcotics, hyperlipidemia managed with Zocor. Principal Problem: Chronic pain disorder S/p bilateral removal of hardware L2-Pelvis and exploring L3-4 Fusion and replacement of rods L3-H4xjvwx Routine postop cares including DVT prophylaxis pain management, ambulation per NSGYteam T2DM On OUTSIDE MACHINIST APPRENTICE metformin. Hold for now Very low-dose SSI with hypoglycemia protocol Depression Resume OUTSIDE MACHINIST APPRENTICE Wellbutrin and Cymbalta Chronic pain syndrome 2/2 LBP On OUTSIDE MACHINIST APPRENTICE opoid including Cymbalta. Primary team/NSGY managing pain [...] Outcome: Met this shift Flowsheets (Taken 09/24/2023 1350) Environmental Safety Interventions: Standard Interventions in Place [...] internal fixation device of vertebrae, initial encounter ([facility]) [T84.216A] Chronic pain disorder [G89.4] Admitted from: Home Prior: Living Arrangements: Spouse/significant other Jerry Hughesdith (UNIQUE) [phone] (M) Support Systems: Spouse/significant other Primary decision [...] management will continue to follow. NICOLAS Dewey, RESEARCH DIETITIAN 3:23 PM, 09/24/2023 P: [phone] F: [phone] * Anjali Mclean RN - 09/24/2023 10:32 [...] Pt smiling, declining tylenol and oxy. When ticket writer returnedto bed pt crying and stating she has moderated pain. Hitting the pillow with her arm. I just have awave of pain. Pt given iv pain meds. Agitated screaming out, putting pillow over head. Offered meds, pt doesn't answer. Pt then stated she was worried about her SO, what he wsa going to eat because she usually cooks for him. Marine Electrician Apprentice spoke with Dr Albert will give tylenol [...] 09/23/2023 8:32 AM CDT Ramona Sanders [id number] DATE OF OPERATIVE PROCEDURE: 09/23/2023 PROCEDURE Removal [...] prepping, and draping of the patient. The biology research assistant provided vital operative assistance with retraction using instruments best providing the necessary exposure and visualization for the case, manipulation of tissues to achieve hemostasis, suction for visualization and assisted in wound closure. The biology research assistant also helped place instrumentation under direct visualization of the surgeon. Postoperatively they assisted in the transfer of the patient off of the operative table and transition into the post anesthesia care unit with hester sition of care being made to the anesthesiologist. Brock Sawyer MD SPINE SURGEON/ [facility] documented in this encounter Plan of Treatment [...] - 100 mg/dL 09/25/2023 11:36 AM CDT [facility] Blood 09/25/2023 7:53 AM CDT 09/25/2023 11:36 AM CDT Brock Sawyer MD LAB POINT OF CARE TEST RESULTS [facility] [address] [address] * XR C-ARM SPINE (09/23/2023 9:14 AM [...] (New Bag - Provider: Nay Zamudio APRN, SALES MANAGEMENT TRAINEE) dicyclomine (BentyL) tablet 20 mg 20 mg, [...] (New Bag - Provider: Nay Zamudio, VERNON, SALES MANAGEMENT TRAINEE) PRN Medication Order 09/23/2023 09/24/2023 09/25/2023 saline [...] area documented in this encounter Care Teams Distribution Clerk Relationship Specialty Start Date End Date [facility]- [address], [place] [address] PCP - Primary Care Clinic 09/18/22 [place] [address] [place] [address] PCP - General 05/20/23 documented as of this encounter
--- OUTSIDE RECORDS SUMMARY | 2023-12-14 02:59 | XMS_ITS | Encounter Summary ---
Author Organization [facility] Address [address] [facility] [place] [address] Care Team Providers Care Paint Roller Assembler Name Role Phone [facility]- Unava ilable Hayes Mcelroy MD Primary Care Provider [phone] Reason for Visit * Inpatient Admission (Routine) Specialty Diagnoses / Procedures Referred By Contac t Referred To Contact Diagnoses Pain due to bilateral hip joint prostheses, initial encounter (HCC) Mechanical breakdown of internal fixation device of vertebrae, initial encounter ([facility]) Pain due to bilateral hip joint prostheses, initial encounter [T84.84XA, Z96.643] Mechanical breakdown of internal fixation device of vertebrae, initial encounter ([facility]) [T84.216A] Procedures REMOVE SPINE FIX DEV,POST SGM* BILATERAL HARDWARE REMOVAL L2- PELIVS WITH EXPLORATION OF L3-4 FUSION Referral ID Status Reason Start Date Expiration Date Visits Re quested Visits Authorized [id number] 1 1 Encounter Details Date Type Department Care Team (Late st Contact Info) Description 09/23/2023 8:00 AM CDT - 09/23/2023 9:35 AM CDT Surgery [facility] Operating Room [address] [facility] [place] [address] Brock Sawyer MD [address] [place] [address] [place] [address] BILATERAL HARDWARE REMOVAL L2- PELIVS WITH [...] 0.6 oz pur e alcohol) [facility] Utilities Answer Date Recorded In the past [...] were you homeless or living in a custodial (including now)? No 09/23/2023 Sex and Gender [...] fixation device of vertebrae, initial encounter ([facility]) [T84.216A] Principal Problem: Chronic pain disorder PROCEDURES [...] in november.* naloxone (NARCAN) 4 mg/actuation Nasal [place] Administer one dose (4 mg) into nostril [...] re-establish your bowel program. You may take ofgt-rds-gkqbhrd stool medications as directed by the package [...] your pain clinic. FOLLOW-UP: She should see [facility] for first recheck in 2-4 weeks. Call for appointment if one not already in place. [phone] Sawyer [phone] Total time spent for discharge on date of discharge: 20 minutes. Vladimir Paez PA-C [facility] documented in this encounter [...] 3 09/25/2023 naloxone (NARCAN) 4 mg/actuation Nasal [place] Administer one dose (4 mg) into nostril [...] 11:02 AM CDT Ramona Benavides Marilyn 1960 [id number] P: Discharge A: Discharged ambulatory to home [...] with metformin, chronic lower back pain on ASSOCIATE PROFESSOR OF BIOLOGY narcotics, hyperlipidemia managed with Zocor who had [...] exploring L3-4 Fusion and replacement of rods L3-E2hcztb Routine postop cares including DVT prophylaxis pain management, drain management,ambulation per NSGYteam T2DM On ASSOCIATE PROFESSOR OF BIOLOGY metformin. Hold for now Very low-dose SSI with hypoglycemia protocol Regular diet at patient request Depression Resume ASSOCIATE PROFESSOR OF BIOLOGY Wellbutrin and Cymbalta Chronic pain syndrome 2/2 LBP On ASSOCIATE PROFESSOR OF BIOLOGY opoid including Cymbalta. Primary team/NSGY managing pain [...] hours 20 mL/24 hours Vladimir Paez PA-C [facility] * Waqas Rodriguez RN [...] with metformin, chronic lower back pain on ASSOCIATE PROFESSOR OF BIOLOGY narcotics, hyperlipidemia managed with Zocor who had [...] exploring L3-4 Fusion and replacement of rods L3-Y3ymagg Routine postop cares including DVT prophylaxis pain management, drain management,ambulation per NSGYteam T2DM On ASSOCIATE PROFESSOR OF BIOLOGY metformin. Hold for now Very low-dose SSI with hypoglycemia protocol Regular diet at patient request Depression Resume ASSOCIATE PROFESSOR OF BIOLOGY Wellbutrin and Cymbalta Chronic pain syndrome 2/2 LBP On ASSOCIATE PROFESSOR OF BIOLOGY opoid including Cymbalta. Primary team/NSGY managing pain [...] for: POTASSIUM, SODIUM, WBC Fabiola Zavala PA-C [facility] * Soco Paez RN [...] call for help, name of assigned care manager cna, PatientInformation booklet, initial physician orders, hourly rounding [...] DM II, chronic lower back pain on ASSOCIATE PROFESSOR OF BIOLOGY narcotics, HLD Patient Seen In: Room Family/Caregiver [...] most limited by worsening pain limiting progression [facility] AM-PAC 6-Clicks Turning over in bed (including [...] CONSULT NOTE Patient Name: Ramona Sanders Address: [address] [place] [address] [place] [address] Age:62 y.o. Sex: female Admission Date/Time: 09/23/2023 5:55 AM Requesting Physician: Brock Sawyer MD [facility] Attending Physician: Brock Sawyer MD I [...] with metformin, chronic lower back pain on ASSOCIATE PROFESSOR OF BIOLOGY narcotics, hyperlipidemia managed with Zocor. At bedside [...] Other Skin irritation around eyes Baclofen Nausea Wcohybvsrish-Fkbjvpe-Pelmofj Compazine [Prochlorperazine] Other Tongue in and out [...] with metformin, chronic lower back pain on ASSOCIATE PROFESSOR OF BIOLOGY narcotics, hyperlipidemia managed with Zocor. Principal Problem: Chronic pain disorder S/p bilateral removal of hardware L2-Pelvis and exploring L3-4 Fusion and replacement of rods L3-M6ejzhj Routine postop cares including DVT prophylaxis pain management, ambulation per NSGYteam T2DM On ASSOCIATE PROFESSOR OF BIOLOGY metformin. Hold for now Very low-dose SSI with hypoglycemia protocol Depression Resume ASSOCIATE PROFESSOR OF BIOLOGY Wellbutrin and Cymbalta Chronic pain syndrome 2/2 LBP On ASSOCIATE PROFESSOR OF BIOLOGY opoid including Cymbalta. Primary team/NSGY managing pain [...] Outcome: Met this shift Flowsheets (Taken 09/24/2023 7299) Environmental Safety Interventions: Standard Interventions in Place [...] fixation device of vertebrae, initial encounter ([facility]) [T84.216A] Chronic pain disorder [G89.4] Admitted from: Home Prior: Living Arrangements: Spouse/significant other Jerry Caruso (SIGO) [phone] (M) Support Systems: Spouse/significant other Primary decision [...] will continue to follow. Della Pacheco, NICOLAS, BED OPERATOR 3:23 PM, 09/24/2023 P: [phone] F: [phone] * Anjali Mclean RN - 09/24/2023 10:32 [...] Pt smiling, declining tylenol and oxy. When filing writer returnedto bed pt crying and stating she has moderated pain. Hitting the pillow with her arm. I just have awave of pain. Pt given iv pain meds. Agitated screaming out, putting pillow over head. Offered meds, pt doesn't answer. Pt then stated she was worried about her SO, what he wsa going to eat because she usually cooks for him. Test And Research Reactor Operator spoke with Dr Albert will give tylenol [...] 09/23/2023 8:32 AM CDT Ramona Sanders [id number] DATE OF OPERATIVE PROCEDURE: 09/23/2023 PROCEDURE Removal [...] the recovery room bed in satisfactory condition. [facility] PAC provided assistance with preoperative positioning, prepping, and draping of the patient. The assistant women's rowing coach provided vital operative assistance with retraction using instruments best providing the necessary exposure and visualization for the case, manipulation of tissues to achieve hemostasis, suction for visualization and assisted in wound closure. The assistant women's rowing coach also helped place instrumentation under direct visualization of the surgeon. Postoperatively they assisted in the transfer of the patient off of the operative table and transition into the post anesthesia care unit with hester sition of care being made to the anesthesiologist. Brock Sawyer MD SPINE SURGEON/ [facility] documented in this encounter Plan of Treatment [...] of10 resultswithin the time period is included. [facility] Signature GLUCOSE WB METER 127(H) 60 - 100 mg/dL 09/25/2023 11:36 AM CDT [facility] Blood 09/25/2023 7:53 AM CDT 09/25/2023 11:36 AM CDT Brock Sawyer MD LAB POINT OF CARE TEST RESULTS [facility] [address] [id number] [phone] * XR C-ARM SPINE (09/23/2023 9:14 AM [...] (New Bag - Provider: Nay Zamudio APRN, CRANE ENGINEER) dicyclomine (BentyL) tablet 20 mg 20 mg, [...] Paez RN) 804 (Given - Provider: Anjali Mclena, JENNA)1931 (Given - Provider: Sole Aguilera, JENNA) [...] 0814 (New Bag - Provider: Nay Zamudio, BATON TWIRLER, [facility]) PRN Medication Order 09/23/2023 09/24/2023 09/25/2023 [...] area documented in this encounter Care Teams Paint Roller Assembler Relationship Specialty Start Date End Date [facility]- [address], [place] [address] PCP - Primary Care Clinic 09/18/22 [place] [address] [place] [address] PCP - General 05/20/23 documented as of this encounter
--- OUTSIDE RECORDS SUMMARY | 2023-12-14 02:59 | XMS_ITS | Encounter Summary ---
Author Organization [facility] Address [address] [place] [address] Care Team Providers Care Wireless Network Engineer Name Role Phone [facility]- Unava ilable Hayes Mcelroy MD Primary Care Provider [phone] Reason for Referral * (Routine) - Open Specialty Diagnoses / Procedures Referred By Contac t Referred To Contact Diagnoses S/P lumbar fusion Procedures XR SPINE LUMBAR ROUTINE Brock Sawyer MD [address] [facility] [address] [place] [address] Referral ID Status Reason Start Date Expiration Date Visits Re quested Visits Authorized [id number] Open 12/21/2023 1 1 Reason for Visit * Reason Comments Post op check Encounter Details Date Type Department Care Team (Late st Contact Info) Description 2023 9:40 AM CDT Office Visit [facility] [address] [facility] [address] [place] [address] Brock Sawyer MD [address] [facility] [address] [place] [address] S/P lumbar fusion (Primary Dx) Social History Tobacco Use Types Packs/Day Years Used Date Smoking Tobacco: Former Cigarettes Smokeless Tobacco: Never Tobacco Cessation:Counseling Given: Not Answered Comments:Quit august 2023 Alcohol Use Standard Drinks/Week Comments Not Currently 0 (1 standard drink = 0.6 oz pur e alcohol) [facility] Utilities Answer Date Recorded In [...] time in the past 12 m [facility], were you homeless or living in a [...] and complete. Brock Sawyer MD SPINE SURGEON/ [facility] * Missy [place], MOBILE HOME INSTALLER - 2023 9:40 AM CDT RX Summary Summary Total Prescriptions 44 Total Private Pay 1 Total Prescribers 4 Total Pharmacies 2 Narcotics (excluding Buprenorphine) Current MME/day 180.00 30 Day Avg MME/day 165.00 Current Qty 64 Buprenorphine Current mg/day 0.00 30 Day Avg mg/day 0.00 Current Qty 0 UNINTENTIONAL OVERDOSE RISK SCORE MODEL How should I use this information? 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 10/29/2023 10/29/2023 10/29/2023 1 Oxycodone Hcl (Ir) 15 Mg Tab 60.00 30 Ca Van [id number] Sup (6706) 0/0 45.00 [place] 10/29/2023 10/29/2023 10/29/2023 1 Oxycodone Hcl (Ir) 10 Mg Tab 90.00 30 Ca Van 8837176 Sup (6706) 0/0 45.00 [place] 10/29/2023 10/29/2023 10/29/2023 1 Oxycontin Er 20 Mg Tablet 90.00 30 Ca Van 4086293 Sup (6706) 0/090.00 [place] 09/27/2023 09/25/2023 09/27/2023 1 Oxycontin Er 20 Mg Tablet 90.00 30 Ca Van 9081240 Sup (6706) 0/090.00 [place] 09/26/2023 09/25/2023 09/26/2023 1 Oxycodone Hcl (Ir) 10 Mg Tab 90.00 30 Ca Van 9345003 Sup (6706) 0/0 45.00 [place] 09/26/2023 09/25/2023 09/26/2023 1 Oxycodone Hcl (Ir) 15 Mg Tab 60.00 30 Ca Van 0973607 Sup (6706) 0/0 45.00 [place] 09/25/2023 09/25/2023 2 Hydromorphone 4 Mg Tablet 40.00 7 [facility] [id number] Delio (1997) 0/0 114.29 [place] 09/25/2023 09/25/2023 2 Oxycontin Er 20 Mg Tablet 10.00 4 [facility] [id number] Delio (1997) 0/0 75.00 [place] 08/29/2023 08/29/2023 08/29/2023 1 Oxycodone Hcl (Ir) 10 Mg Tab 90.00 30 Ca Van [id number] Sup (6706) 0/0 45.00 [place] 08/29/2023 08/29/2023 08/29/2023 1 Oxycodone Hcl (Ir) 15 Mg Tab 60.00 30 Ca Van 5646676 Sup (6706) 0/0 45.00 [place] 08/29/2023 08/29/2023 08/29/2023 1 Oxycontin Er 20 Mg Tablet 90.00 30 Ca Van 0758997 Sup (6706) 0/090.00 [place] 08/20/2023 08/20/2023 08/24/2023 1 Lorazepam 1 Mg Tablet 90.00 30 Pe Buc [id number] Sup (6706) 0/0 3.00 [place] 07/30/2023 07/30/2023 07/30/2023 1 Oxycodone Hcl (Ir) 15 Mg Tab 60.00 30 Ca Van 5932056 Sup (6706) 0/0 45.00 [place] 07/30/2023 07/30/2023 07/30/2023 1 Oxycontin Er 20 Mg Tablet 90.00 30 Ca Van 7249871 Sup (6706) 0/090.00 [place] 07/30/2023 07/30/2023 07/30/2023 1 Oxycodone Hcl (Ir) 10 Mg Tab 90.00 30 Ca Van 0043904 Sup (6706) 0/0 45.00 [place] 07/02/2023 07/02/2023 07/02/2023 1 Oxycontin Er 20 Mg Tablet 90.00 30 Ca Van 9441174 Sup (6706) 0/090.00 [place] 07/02/2023 07/02/2023 07/02/2023 1 Oxycodone Hcl (Ir) 10 Mg Tab 90.00 30 Ca Van 7361621 Sup (6706) 0/0 45.00 M[place] 07/02/2023 07/02/2023 07/02/2023 1 Oxycodone Hcl (Ir) 15 Mg Tab 60.00 30 Ca Van 7426719 Sup (7966) 0/0 45.00 [place] 06/08/2023 06/02/2023 06/09/2023 1 Oxycontin Er 20 Mg Tablet 69.00 23 Ca Van 5391927 Sup (6706) 0/090.00 [place] 06/03/2023 06/02/2023 06/03/2023 1 Oxycodone Hcl (Ir) 15 Mg Tab 60.00 30 Ca Van 3832630 Sup (6706) 0/0 45.00 [place] 06/02/2023 06/02/2023 06/02/2023 1 Oxycodone Hcl (Ir) 10 Mg Tab 90.00 30 Ca Van 1129646 Sup (6706) 0/0 45.00 [place] 06/02/2023 06/02/2023 06/02/2023 1 Oxycodone Hcl (Ir) 5 Mg Tablet 28.00 5 Ca Van 5210577 Sup (6706)0/0 42.00 [place] 06/02/2023 06/02/2023 06/02/2023 1 Oxycontin Er 20 Mg Tablet 21.00 7 Ca Van 3129201 Sup (6706) 0/0 90.00 [place] 05/03/2023 05/01/2023 05/07/2023 1 Oxycodone Hcl (Ir) 15 Mg Tab 60.00 30 Sa Alvin 6664653 Sup (1916) 0/0 45.00 [place] 05/01/2023 05/01/2023 05/02/2023 1 Oxycodone Hcl (Ir) 10 Mg Tab 90.00 30 Sa Alvin 5022324 Sup (8476) 0/0 45.00 [place] 05/01/2023 05/01/2023 05/02/2023 1 Oxycontin Er 20 Mg Tablet 90.00 30 Sa Alvin 2361409 Sup (6706) 0/090.00 [place] 04/05/2023 04/02/2023 04/06/2023 1 Oxycodone Hcl (Ir) 15 Mg Tab 60.00 30 Ca Van 5100154 Sup (6706) 0/0 45.00 [place] 04/03/2023 04/02/2023 04/03/2023 1 Oxycontin Er 20 Mg Tablet 90.00 30 Ca Van 9719244 Sup (6706) 0/090.00 [place] 04/02/2023 04/02/2023 04/02/2023 1 Oxycodone Hcl (Ir) 10 Mg Tab 90.00 30 Ca Van 4552097 Sup (6216) 0/0 45.00 [place] 03/05/2023 03/03/2023 03/09/2023 1 Oxycodone Hcl (Ir) 15 Mg Tab 60.00 30 Ca Van 1005048 Sup (6706) 0/0 45.00 [place] 03/03/2023 03/03/2023 03/03/2023 1 Oxycontin Er 20 Mg Tablet 90.00 30 Ca Van 1937104 Sup (6706) 0/090.00 [place] 03/03/2023 03/03/2023 03/03/2023 1 Oxycodone Hcl (Ir) 10 Mg Tab 90.00 30 Ca Van [id number] Sup (6706) 0/0 45.00 [place] 02/02/2023 01/28/2023 02/06/2023 1 Oxycodone Hcl (Ir) 15 Mg Tab 60.00 30 Ca Van [id number] Sup (6706) 0/0 45.00 [place] 01/28/2023 01/28/2023 01/30/2023 1 Oxycontin Er 20 Mg Tablet 90.00 30 Ca Van 2253803 Sup (6706) 0/090.00 [place] 01/28/2023 01/28/2023 01/30/2023 1 Lorazepam 1 Mg Tablet 90.00 30 Pe Buc [id number] Sup (6706) 0/0 3.00 [place] 01/28/2023 01/28/2023 01/30/2023 1 Oxycodone Hcl (Ir) 10 Mg Tab 41.00 14 Ca Van 5357352 Sup (6706) 0/0 43.93 [place] 01/28/2023 01/28/2023 01/30/2023 1 Oxycodone Hcl (Ir) 10 Mg Tab 49.00 16 Ca Van 0801725 Sup (6706) 0/0 45.94 MME [place] 01/03/2023 01/01/2023 01/06/2023 1 Oxycodone Hcl (Ir) 15 Mg Tab 60.00 30 Ca Van 0074230 Sup (6706) 0/0 45.00 [place] 01/01/2023 01/01/2023 01/01/2023 1 Oxycontin Er 20 Mg Tablet 90.00 30 Ca Van [id number] Sup (6706) 0/090.00 [place] 01/01/2023 01/01/2023 01/01/2023 1 Oxycodone Hcl (Ir) 10 Mg Tab 90.00 30 Ca Van 2045075 Sup (6706) 0/0 45.00 [place] 12/14/2022 12/04/2022 12/14/2022 1 Oxycodone Hcl (Ir) 15 Mg Tab 50.00 25 Ca Van 9254154 Sup (6706) 0/0 45.00 [place] 12/04/2022 12/04/2022 12/04/2022 1 Oxycontin Er 20 Mg Tablet 90.00 30 Ca Van 9617938 Sup (6706) 0/090.00 [place] 12/04/2022 12/04/2022 12/04/2022 1 Oxycodone Hcl (Ir) 15 Mg Tab 10.00 5 Ca Van 8175529 Sup (6706) 0/0 45.00 [place] 12/04/2022 12/04/2022 12/04/2022 1 Oxycodone Hcl (Ir) 10 Mg Tab 90.00 30 Ca Van 4801923 Sup (6706) 0/0 45.00 M[place] Providers Total: 4 Showing 1-4 of 4 Items View 1 of 1 Name Address [facility] Zipcode Phone Cate Thomas [address] [facility] [address] Kiara Álvarez, MSN [address] [facility] [address]78[address] Tasha Hendrickson [address] [facility] 699409 Vladimir Paez [address] [facility] [address] [address] Showing 1-4 of 4 Items View 1 of 1 Pharmacies Total: 2 Showing 1-2 of 2 Items View 1 of 1 Name Address [facility] State Zipcode Phone [place] [facility] ([facility]8) [address] [facility] [address] [facility] (1997) [address] [place] [id number] As a proxy delegate, I have queried [...] no Date: Prior Spinal Treatments/ Procedures: 09/23/23 [facility] 01/16/22 [facility] [place] [facility] documented in this encounter Plan of Treatment Scheduled Orders Name Type Priority Associated Diagnoses Orde r Schedule XR SPINE LUMBAR ROUTINE Imaging Routine S/P lumbar fusion Expected: 12/21/2023 (Approximate), Expires: 02/20/2024 documented as of this encounter Visit Diagnoses Diagnosis S/P lumbar fusion- Primary Arthrodesis status documented in this encounter Care Teams Wireless Network Engineer Relationship Specialty Start Date End Date [facility] [address] [place] [address] PCP - Primary Care Clinic 09/18/22 [place] [address] [place] [address] PCP - General 05/20/23 documented as of this encounter
--- OUTSIDE RECORDS SUMMARY | 2023-12-14 02:59 | XMS_ITS | Encounter Summary ---
Author Organization [facility] Address [address] [place] [address] [place] [address] Care Team Providers Care Tapeman Name Role Phone [facility]- Unava ilable Hayes Mcelroy MD Primary Care Provider [phone] Encounter Details Date Type Department Care Team (Latest Contact Info) Description 09/22/2023 Travel Social History Tobacco Use Types Packs/Day Years Used Date Smoking Tobacco: Former Cigarettes Smokeless Tobacco: Never Comments:Quit august 2023 Alcohol Use Standard Drinks/Week Comments Not Currently 0 (1 standard drink = 0.6 oz pur e alcohol) [facility] Utilities Answer Date Recorded In [...] any time in the past 12 m [facility], were you homeless or living [...] on filedocumented in this encounter Care Teams Tapeman Relationship Specialty Start Date End Date [facility]- [address] [place] [address] PCP - Primary Care Clinic 09/18/22 [place] [address] [place] [address] PCP - General 05/20/23 documented as of this encounter
--- OUTSIDE RECORDS SUMMARY | 2023-12-14 02:59 | XMS_ITS | Encounter Summary ---
Author Organization [facility] Address [address] [place] [address] Care Team Providers Care General Forecaster Name Role Phone [facility] Unava ilable Hayes Mcelroy MD Primary Care Provider [phone] Reason for Referral * (Routine) - Open Specialty Diagnoses / Procedures Referred By Contac t Referred To Contact Diagnoses Postoperative state S/P lumbar fusion Lumbar spine pain Procedures XR SPINE LUMBAR ROUTINE Jg Ivory PA-C [address] [address] Referral ID Status Reason Start Date Expiration Date Visits Re quested Visits Authorized [id number] Open 2023 1 1 Reason for Visit * Reason Comments Post op check Post op: 09/23/23 Philippe ateral RHW L2-Pelvis, with exploration of L3-4 fusion and replacement of rods L3-4 (SMS) Encounter Details Date Type Department Care Team (Latest Contact Info) Description 10/28/2023 9:15 AM CDT Office Visit [facility] [place] (an [facility] of [facility]) [address] [place] [address] Jg Ivory PA-C [address] [facility] [address] [place], [place] [id number] Postoperative state (Primary Dx); S/P lumbar fusion; Lumbar spine pain Social History Tobacco Use Types Packs/Day Years Used Date Smoking Tobacco: Former Cigarettes Smokeless Tobacco: Never Tobacco Cessation:Counseling Given: Not Answered Comments:Quit august 2023 Alcohol Use Standard Drinks/Week Comments Not Currently 0 (1 standard drink = 0.6 oz pur e alcohol) [facility] Utilities Answer Date Recorded In the [...] any time in the past 12 [facility], were you homeless or living in a jail (including now)? No 09/23/2023 Sex and Gender [...] included. Ramona Sanders 60F Refine SearchContact the [employer] Date of : 1960 Recent Address: [address] [place] [address] [place] Luke [address] Status of States Queried: View Details View Linked Records (2) Other Tools/Metrics Report Criteria First Name: Ramona Last Name: Marilyn : 1960 Linked Records ? Name: Ramona Sanders : 1960 ID: 1 Gender: Female Address: [address] [place] [address] [place] [address] Name: Ramona Sanders : 1960 ID: [id number] Gender: Female Address: [address] [place] [address] [place] [address] Report generated on 10/27/2023. Report Date Range: [...] How should I use this information? 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 09/27/2023 09/25/2023 09/27/2023 1 Oxycontin Er 20 Mg Tablet 90.00 30 Ca Van [id number] Sup (6706) 0/090.00 [place] 09/26/2023 09/25/2023 09/26/2023 1 Oxycodone Hcl (Ir) 15 Mg Tab 60.00 30 Ca Van [id number] Sup (6706) 0/0 45.00 [place] 09/26/2023 09/25/2023 09/26/2023 1 Oxycodone Hcl (Ir) 10 Mg Tab 90.00 30 Ca Van [id number] Sup (6706) 0/0 45.00 [place] 09/25/2023 09/25/2023 2 Hydromorphone 4 Mg Tablet 40.00 7 [facility] [id number] Nor (1997) 0/0 114.29 [place] 09/25/2023 09/25/2023 2 Oxycontin Er 20 Mg Tablet 10.00 4 [facility] [id number] Nor (1997) 0/0 75.00 [place] 08/29/2023 08/29/2023 08/29/2023 1 Oxycontin Er 20 Mg Tablet 90.00 30 Ca Van [id number] Sup (6706) 0/090.00 [place] 08/29/2023 08/29/2023 08/29/2023 1 Oxycodone Hcl (Ir) 10 Mg Tab 90.00 30 Ca Van [id number] Sup (6706) 0/0 45.00 [place] 08/29/2023 08/29/2023 08/29/2023 1 Oxycodone Hcl (Ir) 15 Mg Tab 60.00 30 Ca Van [id number] Sup (6706) 0/0 45.00 [place] 08/20/2023 08/20/2023 08/24/2023 1 Lorazepam 1 Mg Tablet 90.00 30 Pe Buc [id number] Sup (6706) 0/0 3.00 [place] 07/30/2023 07/30/2023 07/30/2023 1 Oxycontin Er 20 Mg Tablet 90.00 30 Ca Van [id number] Sup (6706) 0/090.00 [place] 07/30/2023 07/30/2023 07/30/2023 1 Oxycodone Hcl (Ir) 10 Mg Tab 90.00 30 Ca Van [id number] Sup (6706) 0/0 45.00 [place] 07/30/2023 07/30/2023 07/30/2023 1 Oxycodone Hcl (Ir) 15 Mg Tab 60.00 30 Ca Van [id number] Sup (6706) 0/0 45.00 [place] 07/02/2023 07/02/2023 07/02/2023 1 Oxycodone Hcl (Ir) 15 Mg Tab 60.00 30 Ca Van [id number] Sup (4546) 0/0 45.00 [place] 07/02/2023 07/02/2023 07/02/2023 1 Oxycodone Hcl (Ir) 10 Mg Tab 90.00 30 Ca Van [id number] Sup (6706) 0/0 45.00 [place] 07/02/2023 07/02/2023 07/02/2023 1 Oxycontin Er 20 Mg Tablet 90.00 30 Ca Van [id number] Sup (0856) 0/090.00 [place] Providers Total: 4 Showing 1-4 of 4 Items View 1 of 1 Name Address [facility] Zipcode Phone Cate Thomas [address] [facility] [address] Kiara Álvarez, MSN [address] [place] [address] Tasha Hendrickson [address] [place] [address] Vladimir Paez [address] [facility] [address] [facility] 102 [facility] [address] Showing 1-4 of 4 Items View 1 of 1 Pharmacies Total: 2 Showing 1-2 of 2 Items View 1 of 1 Name Address [facility] Zipcode Phone [place]ro [place]ock [phone] [address] [facility] [phone] [place] [address] As a proxy [...] Lumbago documented in this encounter Care Teams General Forecaster Relationship Specialty Start Date End Date [facility]- [address], [place] [address] PCP - Primary Care Clinic 09/18/22 [place] [address] [place] [address] PCP - General 05/20/23 documented as of this encounter
--- OUTSIDE RECORDS SUMMARY | 2023-12-14 03:00 | XMS_ITS | Clinical Summary ---
Author Organization [facility] Address [place], [place] [address] Care Team Providers Care Matrix Inspector Name Role Phone Hayes Mcelroy MD Primary Care Provider [phone] Allergies Active Allergy Reactions Criticality Noted Date [...] Description 10/16/2023 11:30 AM CDT Ancillary Procedure [facility] [address] [place] [address] 10/16/2023 11:15 AM CDT Ancillary Procedure [facility] [address] [place] [address] 10/16/2023 Orders Only [facility] [address] [place] [address] Greg Tyson PA <No scans attached> from [...] Comments Blood Pressure 105/55 01/17/2022 9:09 AM BRANCH MECHANIC Pulse 71 01/17/2022 11:25 AM BRANCH MECHANIC Temperature 36.8 ??C (98.3 ??F) 01/17/2022 9:09 AM CS T Respiratory Rate 16 01/17/2022 11:25 AM BRANCH MECHANIC Oxygen Saturation 91% 01/17/2022 11:25 AM BRANCH MECHANIC Inhaled Oxygen Concentration - - Weight 72.6 kg (160 lb) 04/11/2022 9:58 AM BRANCH MECHANIC Height 175.3 cm (5' 9) 04/11/2022 9:58 AM BRANCH MECHANIC Body Mass Index 23.63 04/11/2022 9:58 AM BRANCH MECHANIC Plan of Treatment Health Maintenance Due Date [...] history exists Medical Devices Implanted Type Area Safety Security Officer Device Identifier Shelf Expiration Date Model / Serial / Lot Bone Matrix 10cc Progenix Plusputty Dbm - [id number] Implanted:Qty : 1 on 12/01/2019 by Brock Sawyer MD at [facility] N/A: Lumbar Vertebrae Medtronic Spine/Ortho 06/15/2021 [id number] / / [id number] Spacer Lmbr [id number] 11deg Elevate Extra-Lordoti c Peek Titn - [id number] Implanted:Qty : 1 on 12/01/2019 by Brock Sawyer MD at [facility] N/A: Lumbar Vertebrae Medtronic Spine/Ortho 09/15/2027 [id number]# / / [id number] Screw Lmbr Post 6.5x50mm Solera 5.5/6 Va Cocr - [id number] Implanted:Qty : 4 on 12/01/2019 by Brock Sawyer MD at [facility] N/A: Lumbar Vertebrae Medtronic Spine/Ortho [id number] / / 5.5 X 500mm Cc Beltran Implanted:Qty : 1 on 12/01/2019 by Brock Sawyer MD at [facility] N/A: Lumbar Vertebrae Medtronic Spine/Ortho [id number] / / Bone 1-4mm 90cc Medtronic Chips Canclls Freeze Dried - [id number] Implanted:Qty : 1 on 12/01/2019 by Brock Sawyer MD at [facility] N/A: Lumbar Vertebrae Medtronic Spine/Ortho 04/24/2024 [id number]# / / [id number]: [id number] Bone Matrix Md Infuse Bmp - [id number] Implanted:Qty : 1 on 12/01/2019 by Brock Sawyer MD at [facility] N/A: Lumbar Vertebrae Medtronic Spine/Ortho 11/09/2021 [id number]# / / [id number] Bone 1-4mm 30cc Medtronic Chips Canclls Freeze Dried - [id number] Implanted:Qty : 1 on 12/01/2019 by Brock Sawyer MD at [facility] N/A: Lumbar Vertebrae Medtronic Spine/Ortho 05/31/2024 [id number]# / / [id number]: [id number] Spacer Lmbr [id number] 12deg Elevate Extra-Lordoti c Peek Tit - [id number] Implanted:Qty : 1 on 12/01/2019 by Brock Sawyer MD at [facility] N/A: Lumbar Vertebrae Medtronic Spine/Ortho 05/31/2027 [id number]# / / [id number] Bone Matrix 10cc Progenix Putty Dbm - [id number] Implanted:Qty : 1 on 12/01/2019 by Brock Sawyer MD at [facility] N/A: Lumbar Vertebrae Medtronic Spine/Ortho 01/15/2021 [id number]# / / [id number] Set Screw Lmbr Ant 5.5mm Solera Break Off - [id number] Implanted:Qty : 10 on 12/01/2019 by Brock Sawyer MD at [facility] Explanted:Qty : 1 on 06/27/2020 by Brock Sawyer MD at [facility] N/A: Lumbar Vertebrae Medtronic Spine/Ortho [id number]# / / Vitoss 1.2cc [id number] - [id number] Implanted:Qty : 1 on 01/17/2021 by Brock Sawyer MD at [facility] N/A: Cervical Vertebrae [place] Spine 05/07/2021 [id number] / / [id number] Anterior Cervical Cage 7mm X 12mm X 14mm [id number] - [id number] Implanted:Qty : 1 on 01/17/2021 by Brock Sawyer MD at [facility] N/A: Cervical Vertebrae [place] Spine 01/25/2023 [id number] / / [id number] [place] View Plates 22mm [id number] - [id number] Implanted:Qty : 1 on 01/17/2021 by Brock Sawyer MD at [facility] N/A: Cervical Vertebrae [place] Spine [id number] / / [place] View Self-Starting Variable Screw 4.0x14mm [id number] - [id number] Implanted:Qty : 3 on 01/17/2021 by Brock Sawyer MD at [facility] N/A: Cervical Vertebrae Bri Spine [id number] / / [place] Self-Starting Variable Screw 4.5x14mm [id number] - [id number] Implanted:Qty : 1 on 01/17/2021 by Brock Sawyer MD at [facility] N/A: Cervical Vertebrae [id number] / / Vitoss Bimodal Implanted:Qty : 1 on 08/21/2021 by Brock Sawyer MD at [facility] N/A: Cervical Vertebrae [place] Spine 05/07/2022 [id number] / / [id number] Bone Matrix 5cc Stimulan Kit Rapid Cure - [id number] Implanted:Qty : 1 on 08/21/2021 by Brock Sawyer MD at [facility] N/A: Cervical Vertebrae [employer] 09/10/2023 [id number] / / [id number] 3.5 X 12mm [place] Oct Polyaxial Screw Implanted:Qty : 3 on 08/21/2021 by Brock Sawyer MD at [facility] N/A: Cervical Vertebrae [employer] Inc [id number] / / 34.0 X 12mm [place] Oct Polyaxial Screw Implanted:Qty : 1 on 08/21/2021 by Brock Sawyer MD at [facility] N/A: Cervical Vertebrae [employer] Inc [id number] / / Set Screw Implanted:Qty : 4 on 08/21/2021 by Brock Sawyer MD at [facility] N/A: Cervical Vertebrae [employer] Inc [id number] / / Contoured Rods4.0 X 25mm Implanted:Qty : 2 on 08/21/2021 by Brock Sawyer MD at [facility] N/A: Cervical Vertebrae K2M Group P[employer] Inc [id number] / / Bone Matrix Sm Infuse Bmp - [id number] Implanted:Qty : 1 on 01/16/2022 by Brock Sawyer MD at [facility] Lumbar Vertebrae Medtronic Spine/Ortho 02/10/2024 [id number] / / [id number] Bone Matrix 5cc Progenix Plus Putty Dbm - [id number] Implanted:Qty : 1 on 01/16/2022 by Brock Sawyer MD at [facility] Spine Medtronic Spine/Ortho 05/02/2023 [id number] / [id number] / Bone 1-4mm 15cc Medtronic Chips Canclls Freeze Dried - [id number] Implanted:Qty : 1 on 01/16/2022 by Brock Sawyer MD at [facility] Spine Medtronic Spine/Ortho 12/04/2025 [id number] / [id number] / [id number] Implant 16mm Implanted:Qty : 1 on 01/16/2022 by Brock Sawyer MD at [facility] Spine Medtronic Spine/Ortho 07/05/2025 [id number] / / [id number] Luís Tas Bone Screw Implanted:Qty : 1 on 01/16/2022 by Brock Sawyer MD at [facility] Spine Medtronic Spine/Ortho [id number] / / Divergence Screws Implanted:Qty : 4 on 01/16/2022 by Brock Sawyer MD at [facility] Spine Medtronic Spine/Ortho [id number] / / Divergence 18mm Plate Implanted:Qty : 1 on 01/16/2022 by Brock Sawyer MD at [facility] Spine Medtronic Spine/Ortho [id number] / / Explanted Type Area Safety Security Officer Device Identifier Shelf Expiration Date Model / Serial / Lot [place] Presentigo Precision Spinal Cord Stimulator Explanted:Qty: 1 on 12/01/2019 by rBock Sawyer MD at [facility] N/A: Lumbar Vertebrae [employer] / [id number] / Description:Battery and lead s explanted IPG model SC-1110 Bone Growth Stimulator Explanted:Qty: 1 on 12/01/2019 by Brock Sawyer MD at [facility] N/A: Lumbar Vertebrae Description:SpF-PLUS CLAUDIA [id number] Battery and leads explanted 100mm 5.5 Ti Beltran Explanted:Qty: 2 on 12/01/2019 by Brock Sawyer MD at [facility] N/A: Lumbar Vertebrae Set Screws Solera Explanted:Qty: 6 on 12/01/2019 by Brock Sawyer MD at [facility] N/A: Lumbar Vertebrae Medtronic Spine/Ortho Screw Sm Joint 4.5x20mm Axsos Raymundo [facility] - [id number] Explanted:Qty: 4 on 12/01/2019 by Brock Sawyer MD at [facility] N/A: Lumbar Vertebrae Bri Orthopaedics [id number]# / / 8.5 X 70 Mm Ballast Screw Explanted:Qty: 1 on 06/27/2020 by Brock Sawyer MD at [facility] Right: Lumbar Vertebrae Medtronic Procedures Procedure Name [...] 16 Negative Negative 11/27/2022 11:43 AM CDT [facility] TYPE 18 Negative Negative 11/27/2022 11:43 AM CDT [facility] OTHER HIGH RISK TYPES Positive(A) Negative 11/27/2022 11:43 AM CDT [facility] Other (Cervical) 11/21/2022 9:04 AM CDT 11/25/2022 11:50 AM CDT Narrative [facility] - 11/27/2022 11:43 AM CDT Specimen is positive for the DNA of any one of, or combination of, the following high risk HPV types: 31, 33, 35, 39, 45, 51, 52, 56, 58, 59, 66, 68. HPV types 16 and 18 DNA were undetectable or below the pre-set threshold. ? Methodology: Velia Amador 4800 HPV Test Maryuri Rabago PA-C MICROBIOLOGY [facility] [address] [place] [address], * XR FFDM MAMMO SCREENING BILATERAL SSP [...] Computer-Aided Detection. ?? COMPARISON FILMS: Yes 10/07/08 [facility] FINDINGS: ??Mammographically, the breast tissue is heterogeneously [...] of Computer-Aided Detection. COMPARISON FILMS: Yes 10/07/08 [facility] FINDINGS: Mammographically, the breast tissue is heterogeneously [...] Code Status Discussion: Not Discussed Care Teams Matrix Inspector Relationship Specialty Start Date End Date Hayes Mcelroy MD PCP - General Family Practice 01/10/17
--- OUTSIDE RECORDS SUMMARY | 2023-12-14 03:00 | XMS_ITS | Clinical Summary ---
Author Organization [facility] Address [address] [place] [address] Care Team Providers Care Talent Specialist Name Role Phone Tommy Mcelroy MD Primary Care Provider [phone] Source Comments You are receiving this document as you are listed as the primary care provider,follow-up provider, or the patient has been referred to you for consultation.This is in compliance with the Medicare and[facility] EHR Incentive Program,which states Providers who transition their patient to another setting of careor provider of care or refers their patient to another provider of care shouldprovide summary care record for each transition of care or referral. [facility] Allergies Active Allergy Reactions Criticality [...] (05/13/2022): Added automatically from request for surgery [id number] Social History Tobacco Use Types Packs/Day Years [...] age to complete this topic Care Teams Talent Specialist Relationship Specialty Start Date End Date Tommy Mcelroy MD [facility] [address] [place] [address] PCP - General Family Practice 05/07/22
== END 2023-11-30 17:49 | disposition home or self-care (01) ==
LOC: AMB 12-14 02:56
PROVIDERS: PCP Family Medicine; Visit Provider Family Medicine
DX: S87.01XA Crushing injury of right knee, initial encounter (principal); S87.02XA Crushing injury of left knee, initial encounter
CPT/HCPCS: A0425; A0433

== ENCOUNTER 2023-12-10 16:48 | Emergency (ER) | payer OTHER, SELFPAY ==
[2023-12-10 16:51] VITALS: BP 150/73; PULSE 95; RESP 18; TEMP 37.1; O2SAT 97; BMI 22.2
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
--- OUTSIDE RECORDS SUMMARY | 2023-12-10 17:37 | XMS_ITS | Clinical Summary ---
Author Organization [facility] Address [address] [place], [place] [address] [address] Phone Care Team Providers Care Financial Services Education Consultant Name Role Phone Pcp, No Primary Care Provider Unavailabl e Source Comments Intrad[facility] is fully rolled out on [employer]. Last update 07/15/08.[facility] Allergies Active Allergy Reactions Criticality Noted Date [...] complication, without long-term current use of insulin ([facility]) 08/21/2021 History of lumbar fusion 06/27/2020 IBS (irritable bowel syndrome) 06/27/2020 Opioid dependence with current use ([facility]) Lumbar radiculopathy 03/02/2014 Cocaine abuse ([facility]) 03/18/2009 Alcohol abuse 03/18/2009 RLS (restless legs syndrome) 03/18/2009 Encounters Date Type Department Care Team Description 12/01/2023 6:32 AM CDT Anesthesia Event OR P4 [address] [place] [address] Joaquin Herrera MD Teslaa, Polly A RN 12/01/2023 6:15 AM CDT - 12/01/2023 8:23 AM CDT Surgery OR P4 [address] [place] [address] Lotus Varela MD FASCIOTOMY, LOWER EXTREMITY 12/01/2023 Travel 12/01/2023 Orders Only [facility] Film Room [facility] Radiology Department [facility] [address] [place] [address]. [address] [address] Provider, Outside Referral of patient (Primary Dx) 11/30/2023 6:58 PM CDT - 12/03/2023 3:46 PM CDT Hospital Encounter [facility] Orthopaedic Arden Perez [id number] [place] [address] Gonzalez Engle MD Wright, MD Jigar Bedolla, [...] st Contact Info) Description 12/15/2023 1:00 PM HANDMADE TILE ARTIST [facility] [address] [place] [address] Scheduled Discharge Disposition: Discharged to home or [...] METABOLIC (BMP) Routine 12/03/2023 4:29 AM CDT PC LAB CBC W/DIFF & PLT Routine 12/03/2023 4:29 AM CDT PANEL BASIC [...] syndrome of left lower extremity, initial encounter ([facility]) FASCIOTOMY, LOWER EXTREMITY Emergent ([facility]) 12/01/2023 6:22 AM CDT Traumatic compartment syndrome of left lower extremity, initial encounter ([facility]) CT LOW EXTREMITY LEFT NO IV CON [...] patient PANEL LIPID Routine 03/19/2009 5:24 AM HANDMADE TILE ARTIST from Last 3 Months or Most Recently Relevant to Health Maintenance Results * (ABNORMAL) CBC WITH PLTS/AUTO DIFF (12/03/2023 4:29 AM CDT) Only the most recent of3 resultswithin the time period is included. WBC 5.82 4.00 - 10.00 k/cmm [facility] RBC 3.61(L) 3.90 - 5.20 m/cmm [facility] Hgb 9.0(L) 11.5 - 15.7 g/dL [facility] Hematocrit 29.6(L) 34.0 - 45.0 % [facility] MCV 82.0 80.0 - 100.0 fL [facility] MCH 24.9(L) 25.0 - 32.0 pg [facility] MCHC 30.4(L) 31.0 - 36.0 g/dL [facility] RDW 17.2(H) 11.5 - 14.5 % [facility] Plt 192 150 - 400 k/cmm [facility] MPV 9.4 6.5 - 12.5 fL [facility] Automated Abs Neutrophil 3.14 1.70 - 6.50 k/cmm [facility] Comment:Preliminary ANC, Fin al Result to Follow Abs Immature Granulocyte 0.02 0.00 - 0.09 k/cmm [facility] Comment:The Immature Granulo cyte Absolute count contains metamyelocytes and myelocytes. Abs Neutrophil 3.14 1.70 - 6.50 k/cmm [facility] Abs Lymphocyte 1.89 0.80 - 4.00 k/cmm [facility] Abs Monocyte 0.47 0.20 - 1.00 k/cmm [facility] Abs Eosinophil 0.28 0.00 - 0.60 k/cmm [facility] Abs Basophil 0.02 0.00 - 0.20 k/cmm [facility] Blood 12/03/2023 4:29 AM CDT 12/03/2023 5:58 AM CDT Kory Kimball MD LABORATORY Performing Organization Address City/[facility]/ZIP Co de Phone Number [facility] [address] [address] * PHOSPHORUS (12/03/2023 4:29 AM CDT) Phosphorus 3.0 2.5 - 4.5 mg/dL [facility] Blood 12/03/2023 4:29 AM CDT 12/03/2023 5:58 AM CDT Kory Kimball MD LABORATORY [facility] [address] [address] * (ABNORMAL) PANEL BASIC METABOLIC (BMP) (12/03/2023 4:29 AM CDT) Only the most recent of2 resultswithin the time period is included. Sodium 143 135 - 148 mmol/L [facility] Potassium 3.5 3.5 - 5.3 mmol/L [facility] Chloride 110(H) 92 - 108 mmol/L [facility] CO2 25 22 - 30 mmol/L [facility] Glucose 130(H) 70 - 100 mg/dL [facility] BUN 14 8 - 23 mg/dL [facility] Creatinine 0.66 0.50 - 1.00 mg/dL [facility] Calcium 8.5(L) 8.8 - 10.2 mg/dL [facility] AnGap 8 8 - 16 mmol/L [facility] eGFR (2020 CKD-EPI) 100 >=60 ml/min/1.7 3m2 [facility] Comment: The estimated glomerular filtration rate (eGFR) was calculated using the CKD-EPI 2020 creatinine equation, which does not include race as a factor. This equation is validated in individuals 18 years of age and older, and eGFR is normalized to a body surface area of 1.73m^2. Blood 12/03/2023 4:29 AM CDT 12/03/2023 5:58 AM CDT Kory Kimball MD LABORATORY Performing Organization Address City/[facility] Co de Phone Number [facility] [address] [address] * MAGNESIUM (12/03/2023 4:29 AM CDT) Magnesium 2.1 1.6 - 2.4 mg/dL [facility] Blood 12/03/2023 4:29 AM CDT 12/03/2023 5:58 AM CDT Kory Kimball MD LABORATORY [facility] [address] [address] * VITAMIN [id number] TO MMA (12/02/2023 4:42 AM CDT) B12 340 211 - 946 pg/mL [facility] Blood 12/02/2023 4:42 AM CDT 12/02/2023 5:19 AM CDT Joaquin Snow MD LABORATORY Performing Organization Address City/[facility] Co de Phone Number [facility] [address] [address] * (ABNORMAL) TRANSFERRIN (INCLUDES TIBC) (12/02/2023 4:42 AM CDT) Transferrin 230 200 - 360 mg/dL [facility] IBC 343 298 - 536 mcg/dL [facility] Iron Saturation Percent 6(L) 20 - 50 % [facility] Blood 12/02/2023 4:42 AM CDT 12/02/2023 5:19 AM CDT Joaquin Snow MD LABORATORY Performing Organization Address City/[facility] Co de Phone Number [facility] [address] [address] * (ABNORMAL) IRON (12/02/2023 4:42 AM CDT) Iron 19(L) 35 - 145 mcg/dL [facility] Blood 12/02/2023 4:42 AM CDT 12/02/2023 5:19 AM CDT Joaquin Snow MD LABORATORY Performing Organization Address City/[facility] Co de Phone Number [facility] [address] [address] * FERRITIN (12/02/2023 4:42 AM CDT) Ferritin 18.0 13.0 - 150.0 ng/mL [facility] Comment: Test Performed by: [facility] [address] [place] [id number] Blood 12/02/2023 4:42 AM CDT 12/02/2023 5:19 AM CDT Joaquin Snow MD LABORATORY [facility] [address] [address] * XR SHOULDER RT 2/3V AP/GRASH/Y* (12/01/2023 [...] POC Glucose 108(H) 70 - 100 mg/dL [facility] Blood 12/01/2023 9:07 AM CDT Gonzalez Engle MD LABORATOR Y [facility] [address] [place] [address], * Intubation/Airway (12/01/2023 6:52 AM CDT) Narrative [...] unchanged and oral mucosa unchanged Performed by: RESAW MACHINE OPERATOR: Seltun, Eric D, SILICA MIXER OPERATOR, CRNAAnesthesiologist: Emir Bullock MD Additional Notes RSI [...] 390 ms QTC Interval 434 ms P Cameron 78 QRS Cameron 77 T Wave Cameron 76 Narrative Procedure Note Greg Posey MD - 12/01/2023 IMPRESSION SINUS RHYTHM POSSIBLE RIGHT ATRIAL ENLARGEMENT [0.25mV P-WAVE] BORDERLINE ECG P-R Interval 176 ms QRS Interval 95 ms QT Interval 390 ms QTC Interval 434 ms P Cameron 78 QRS Cameron 77 T Wave Cameron 76 Jian Howell MD EKG Performing Organization Address [facility] Co de Phone Number [facility] CVIS EKG ORDERS * ED INR (11/30/2023 7:02 PM CDT) ED INR 1.0 0.8 - 1.1 [facility] Comment: Warfarin Therapeutic Range: Standard Intensity: 2.0 - 3.0 High Intensity: 2.5 - 3.5 This is a rapid INR screening test which uses whole blood; results may infrequently differ from plasma INR results. If medication adjustments/dosing are required a PT/INR test ([id number]) should be ordered and performed in the main laboratory. Blood 11/30/2023 7:02 PM CDT 11/30/2023 7:08 PM CDT Jian Howell MD LABORATORY Performing Organization Address [facility] Co de Phone Number [facility] [address] [address] * EXTRA TUBE - SST (11/30/2023 7:02 PM CDT) Pathologist [facility] SST TUBE Stored [facility] Comment:SST tubes (Serum Sep arator) are stored in the lab for 3 days from the collection date. Blood 11/30/2023 7:02 PM CDT 11/30/2023 7:09 PM CDT Jian Howell MD LABORATORY Performing Organization Address [facility] Co de Phone Number [facility] [address] [address] * HS TROPONIN (11/30/2023 7:02 PM CDT) Pathologist [facility] HS Troponin I <3 <=14 ng/L [facility] Blood 11/30/2023 7:02 PM CDT 11/30/2023 7:08 PM CDT Narrative [facility] - 11/30/2023 7:34 PM CDT First Occurrence of the Troponin order is to be drawn Stat by Nursing staff on the unit. Jian Howell MD LABORATORY Performing Organization Address [facility] Co de Phone Number [facility] [address] [address] * (ABNORMAL) ED CHEMISTRY LABS(NA,K,CL,CO2,GLU,CREAT,CA-IONIZED,ANION GAP) (11/30/2023 7:02 PM CDT) Sodium 140 135 - 148 mmol/L [facility] Chloride 111(H) 92 - 108 mmol/L [facility] AnGap 7(L) 8 - 16 mmol/L [facility] Glucose 99 70 - 100 mg/dL [facility] ICA, Actual 4.40 4.40 - 5.20 mg/dL [facility] ICA, pH Corrected 4.50 4.40 - 5.20 mg/dL [facility] Creatinine 0.95 0.50 - 1.00 mg/dL [facility] BICARB 22 22 - 26 mEq/L [facility] eGFR (2020 CKD-EPI) 68 >=60 ml/min/1.7 3m2 [facility] Comment: The estimated glomerular filtration rate (eGFR) was calculated using the CKD-EPI 2020 creatinine equation, which does not include race as a factor. This equation is validated in individuals 18 years of age and older, and eGFR is normalized to a body surface area of 1.73m^2. Potassium 4.5 3.5 - 5.3 mmol/L [facility] Blood 11/30/2023 7:02 PM CDT 11/30/2023 7:09 PM CDT Jian Howell MD LABORATORY Performing Organization Address [facility] Co de Phone Number [facility] [address] [address] * (ABNORMAL) ED HEMOGLOBIN TOTAL (ED ONLY) (11/30/2023 7:02 PM CDT) Hgb 10.2(L) 11.5 - 15.7 g/dL [facility] Blood 11/30/2023 7:02 PM CDT 11/30/2023 7:09 PM CDT Jian Howell MD LABORATORY Performing Organization Address City/[facility]/ZIP Co de Phone Number [facility] [address] [address] * PRECAUTIONARY TUBE (11/30/2023 7:02 PM CDT) Prec Tube Precautionary Blood Bank Specimen Received. [facility] Blood 11/30/2023 7:02 PM CDT 11/30/2023 7:17 PM CDT Jian Howell MD LAB TRANSFUSION SERV ICES Performing Organization Address [facility] Co de Phone Number [facility] [address] [address] * (ABNORMAL) PANEL HEPATIC FUNCTION (11/30/2023 7:02 PM CDT) Total Protein 6.0(L) 6.4 - 8.3 g/dL [facility] Albumin 4.2 3.8 - 5.1 g/dL [facility] Bili Total <0.2 <=1.2 mg/dL [facility] Bili Direct na <=0.3 mg/dL [facility] Comment:BILID < 0.2. Accurac y of result suspect due to hemolysis. Alk Phos 104 35 - 104 IU/L [facility] Comment:No reference range e stablished for patients <18 years old. ALT (SGPT) na <=33 IU/L [facility] Comment:ALT = 8. Accuracy of result suspect due to hemolysis. AST(SGOT) na 5 - 40 IU/L [facility] Comment:AST = 20. Accuracy o f result suspect due to hemolysis. Blood 11/30/2023 7:02 PM CDT 11/30/2023 7:17 PM CDT Jian Howell MD LABORATORY Performing Organization Address City/[facility]/ZIP Co de Phone Number [facility] [address] [address] * LACTATE (LACTIC ACID) (11/30/2023 7:02 PM CDT) Lactate 1.5 0.7 - 2.1 mmol/L [facility] Blood 11/30/2023 7:02 PM CDT 11/30/2023 7:09 PM CDT Narrative [facility] - 11/30/2023 7:16 PM CDT Send specimen on ice! Jian Howell MD LABORATORY Performing Organization Address City/[facility]/ZIP Co de Phone Number [facility] [address] [address] * (ABNORMAL) BLOOD GASES (11/30/2023 7:02 PM CDT) PH Juvenal 7.40 7.32 - 7.42 [facility] PCO2 Juvenal 38(L) 41 - 51 mmHG [facility] PO2 Juvenal 39 25 - 40 mmHG [facility] Bicarb Juvenal 23(L) 24 - 28 mEq/L [facility] O2 Sat Juvenal 73 % [facility] Base Exc Juvenal -1.2 -10.0 - 2.0 mmol/L [facility] Blood Venous 11/30/2023 7:02 PM CDT 11/30/2023 7:09 PM CDT Jian Howell MD LABORATORY Performing Organization Address City/[facility]/ZIP Co de Phone Number [facility] [address] [address] * FIBRINOGEN (11/30/2023 7:02 PM CDT) Fibrinogen 222 200 - 400 mg/dL [facility] Blood 11/30/2023 7:02 PM CDT 11/30/2023 7:17 PM CDT Jian Howell MD LABORATORY [facility] [address] [address] * ETHANOL (ETOH) LEVEL, BLOOD (11/30/2023 7:02 PM CDT) Ethanol Negative Negative g/dL [facility] Blood 11/30/2023 7:02 PM CDT 11/30/2023 7:17 PM CDT Jian Howell MD LABORATORY Performing Organization Address [facility] Co de Phone Number [facility] [address] [address] * CK, TOTAL (11/30/2023 7:02 PM CDT) CK na 26 - 192 [facility] Comment:CK = 82. Accuracy of result suspect due to hemolysis. Blood 11/30/2023 7:02 PM CDT 11/30/2023 7:54 PM CDT Gonzalez Engle MD LABORATOR Y Performing Organization Address [facility] Co de Phone Number [address] [address] * PTT (APTT) (11/30/2023 7:02 PM CDT) APTT 31.0 25.0 - 37.0 sec [facility] Blood 11/30/2023 7:02 PM CDT 11/30/2023 7:17 PM CDT Jian Howell MD LABORATORY Performing Organization Address [facility] Co de Phone Number [address] [address] * ED US CRITICAL CARE (11/30/2023 6:59 [...] the time period is included. Narrative User, [id number] - 12/01/2023 9:32 AM CDT Outside Film Only Outside Provider RAD OUTSIDE FILMS * PANEL LIPID (03/19/2009 5:24 AM HANDMADE TILE ARTIST) Cholesterol 167 0 - 200 mg/dL [facility] Triglyceride 73 10 - 160 mg/dL [facility] HDL 53 40 - 75 mg/dL [facility] Blood specimen (specimen) 03/19/2009 5:24 AM HANDMADE TILE ARTIST 03/19/2009 5:59 AM HANDMADE TILE ARTIST Narrative [facility] - 03/19/2009 7:19 AM HANDMADE TILE ARTIST Fasting: Yes Joaquin Lozano MD LABORATORY [facility] from Last 3 Months or Most Recently Relevant to Health Maintenance Advance Directives For more information, please contact: [phone] * DNR (Latest Code Status on File) [...] Status With Whom? Not discussed Care Teams Financial Services Education Consultant Relationship Specialty Start Date End Date Pcp, [place] [address] PCP - General 03/18/09
--- OUTSIDE RECORDS SUMMARY | 2023-12-10 17:38 | XMS_ITS | Referral Summary ---
Author Organization [facility] Address [address] [place] [address] Phone Care Team Providers Care Hardware Engineer Name Role Phone Pcp, No Primary Care Provider Unavailabl e Source Comments [employer] is fully rolled out on [employer]. Last update 07/15/08.[facility] Encounters Date Type Department Care Team Description 11/30/2023 6:58 PM CDT - 12/03/2023 3:46 PM CDT Hospital Encounter [facility] Orthopaedic [address] [place] [address] Gonzalez Engle MD Wright, MD Jigar Bedolla, Kory Espinal MD Closed fracture fibula, head, left, initial encounter Discharge Disposition: Discharged to home or self care 12/01/2023 Travel 12/01/2023 Orders Only [facility] Film Room [facility] Radiology Department [facility] [address] [place] [address] Provider, Outside Referral of patient (Primary Dx) 12/01/2023 6:32 AM CDT Anesthesia Event OR P4 [address] [place] [address] Joaquin Herrera MD Teslaa, Polly A RN 12/01/2023 6:15 AM CDT - 12/01/2023 8:23 AM CDT Surgery OR P4 [address] [place] [address] Lotus Varela MD FASCIOTOMY, LOWER EXTREMITY from [...] complication, without long-term current use of insulin ([facility]) 08/21/2021 History of lumbar fusion 06/27/2020 IBS (irritable bowel syndrome) 06/27/2020 Opioid dependence with current use ([facility]) Lumbar radiculopathy 03/02/2014 Cocaine abuse ([facility]) 03/18/2009 Alcohol abuse 03/18/2009 RLS (restless [...] st Contact Info) Description 12/15/2023 1:00 PM CANDY POLISHER [facility] [address] [address] Scheduled Discharge Disposition: Discharged to home or [...] syndrome of left lower extremity, initial encounter ([facility]) CT LOW EXTREMITY LEFT NO IV [...] patient PANEL LIPID Routine 03/19/2009 5:24 AM CANDY POLISHER from Last 3 Months or Most Recently Relevant to Health Maintenance Results * (ABNORMAL) CBC WITH PLTS/AUTO DIFF (12/03/2023 4:29 AM CDT) Only the most recent of3 resultswithin the time period is included. WBC 5.82 4.00 - 10.00 k/cmm [facility] RBC 3.61(L) 3.90 - 5.20 m/cmm [facility] Hgb 9.0(L) 11.5 - 15.7 g/dL [facility] Hematocrit 29.6(L) 34.0 - 45.0 % [facility] MCV 82.0 80.0 - 100.0 fL [facility] MCH 24.9(L) 25.0 - 32.0 pg [facility] MCHC 30.4(L) 31.0 - 36.0 g/dL [facility] RDW 17.2(H) 11.5 - 14.5 % [facility] Plt 192 150 - 400 k/cmm [facility] MPV 9.4 6.5 - 12.5 fL [facility] Automated Abs Neutrophil 3.14 1.70 - 6.50 k/cmm [facility] Comment:Preliminary ANC, Fin al Result to Follow Abs Immature Granulocyte 0.02 0.00 - 0.09 k/cmm [facility] Comment:The Immature Granulo cyte Absolute count contains metamyelocytes and myelocytes. Abs Neutrophil 3.14 1.70 - 6.50 k/cmm [facility] Abs Lymphocyte 1.89 0.80 - 4.00 k/cmm [facility] Abs Monocyte 0.47 0.20 - 1.00 k/cmm [facility] Abs Eosinophil 0.28 0.00 - 0.60 k/cmm [facility] Abs Basophil 0.02 0.00 - 0.20 k/cmm [facility] Blood 12/03/2023 4:29 AM CDT 12/03/2023 5:58 AM CDT Kory Kimball MD LABORATORY [facility] [address] [address] * PHOSPHORUS (12/03/2023 4:29 AM CDT) Phosphorus 3.0 2.5 - 4.5 mg/dL [facility] Blood 12/03/2023 4:29 AM CDT 12/03/2023 5:58 AM CDT Kory Kimball MD LABORATORY [facility] [address] [address] * (ABNORMAL) PANEL BASIC METABOLIC (BMP) (12/03/2023 4:29 AM CDT) Only the most recent of2 resultswithin the time period is included. Sodium 143 135 - 148 mmol/L [facility] Potassium 3.5 3.5 - 5.3 mmol/L [facility] Chloride 110(H) 92 - 108 mmol/L [facility] CO2 25 22 - 30 mmol/L [facility] Glucose 130(H) 70 - 100 mg/dL [facility] BUN 14 8 - 23 mg/dL [facility] Creatinine 0.66 0.50 - 1.00 mg/dL [facility] Calcium 8.5(L) 8.8 - 10.2 mg/dL [facility] AnGap 8 8 - 16 mmol/L [facility] eGFR (2020 CKD-EPI) 100 >=60 ml/min/1.7 3m2 [facility] Comment: The estimated glomerular filtration rate (eGFR) was calculated using the CKD-EPI 2020 creatinine equation, which does not include race as a factor. This equation is validated in individuals 18 years of age and older, and eGFR is normalized to a body surface area of 1.73m^2. Blood 12/03/2023 4:29 AM CDT 12/03/2023 5:58 AM CDT Kory Kimball MD LABORATORY [facility] [address] [address] * MAGNESIUM (12/03/2023 4:29 AM CDT) Magnesium 2.1 1.6 - 2.4 mg/dL [facility] Blood 12/03/2023 4:29 AM CDT 12/03/2023 5:58 AM CDT Kory Kimball MD LABORATORY [facility] [address] [address] * VITAMIN [id number] TO MMA (12/02/2023 4:42 AM CDT) B12 340 211 - 946 pg/mL [facility] Blood 12/02/2023 4:42 AM CDT 12/02/2023 5:19 AM CDT Joaquin Snow MD LABORATORY [facility] [address] [address] * (ABNORMAL) TRANSFERRIN (INCLUDES TIBC) (12/02/2023 4:42 AM CDT) Transferrin 230 200 - 360 mg/dL [facility] IBC 343 298 - 536 mcg/dL [facility] Iron Saturation Percent 6(L) 20 - 50 % [facility] Blood 12/02/2023 4:42 AM CDT 12/02/2023 5:19 AM CDT Joaquin Snow MD LABORATORY Performing Organization Address City/Va Hospital/ZIP Co de Phone Number [facility] [address] [address] * (ABNORMAL) IRON (12/02/2023 4:42 AM CDT) Iron 19(L) 35 - 145 mcg/dL [facility] Blood 12/02/2023 4:42 AM CDT 12/02/2023 5:19 AM CDT Joaquin Snow MD LABORATORY Performing Organization Address City/[facility] Hospital/ZIP Co de Phone Number [facility] [address] [address] * FERRITIN (12/02/2023 4:42 AM CDT) Ferritin 18.0 13.0 - 150.0 ng/mL [facility] Comment: Test Performed by: [facility] Laboratory [address] [place] [address] Blood 12/02/2023 4:42 AM CDT 12/02/2023 5:19 AM CDT Joaquin Snow MD LABORATORY Performing Organization Address City/[facility] Hospital/ZIP Co de Phone Number [facility] [address] [address] * XR SHOULDER RT 2/3V AP/GRASH/Y* (12/01/2023 [...] POC Glucose 108(H) 70 - 100 mg/dL [facility] Blood 12/01/2023 9:07 AM CDT Gonzalez Engle MD LABORATOR Y [facility] [address] [place] [address], * Intubation/Airway (12/01/2023 6:52 AM CDT) Narrative Eric Ching APRN, CRNA - 12/01/2023 6:52 AM CDT Eric Chign APRN, CRNA ? 12/01/2023 ??6:53 AM AIRWAY/INTUBATION [...] unchanged and oral mucosa unchanged Performed by: LOCAL ANNOUNCER: Eric Ching APRN, CRNAAnesthesiologist: Emir Bullock MD [...] PM CDT) 11/30/2023 7:09 PM CDT Impressions [facility] CVIS EKG ORDERS - 11/30/2023 7:09 PM CDT SINUS RHYTHM POSSIBLE RIGHT ATRIAL ENLARGEMENT ??[0.25mV P-WAVE] BORDERLINE ECG P-R Interval 176 ms QRS Interval 95 ms QT Interval 390 ms QTC Interval 434 ms P Dexter 78 QRS Dexter 77 T Wave Dexter 76 Narrative Procedure Note Greg Posey MD - 12/01/2023 IMPRESSION SINUS RHYTHM POSSIBLE RIGHT ATRIAL ENLARGEMENT [0.25mV P-WAVE] BORDERLINE ECG P-R Interval 176 ms QRS Interval 95 ms QT Interval 390 ms QTC Interval 434 ms P Dexter 78 QRS Dexter 77 T Wave Dexter 76 Jian Howell MD EKG [facility] CVIS EKG ORDERS * ED INR (11/30/2023 7:02 PM CDT) [facility] ED INR 1.0 0.8 - 1.1 [facility] Comment: Warfarin Therapeutic Range: Standard Intensity: 2.0 - 3.0 High Intensity: 2.5 - 3.5 This is a rapid INR screening test which uses whole blood; results may infrequently differ from plasma INR results. If medication adjustments/dosing are required a PT/INR test ([id number]) should be ordered and performed in the main laboratory. Blood 11/30/2023 7:02 PM CDT 11/30/2023 7:08 PM CDT Jian Howell MD LABORATORY Performing Organization Address City/[facility] Hospital/ZIP Co de Phone Number [facility] [address] [address] * EXTRA TUBE - SST (11/30/2023 7:02 PM CDT) [facility] SST TUBE Stored [facility] Comment:SST tubes (Serum Sep arator) are stored in the lab for 3 days from the collection date. Blood 11/30/2023 7:02 PM CDT 11/30/2023 7:09 PM CDT Jian Howell MD LABORATORY Performing Organization Address City/[facility] Hospital/ZIP Co de Phone Number [facility] [address] [address] * HS TROPONIN (11/30/2023 7:02 PM CDT) [facility] HS Troponin I <3 <=14 ng/L [facility] Blood 11/30/2023 7:02 PM CDT 11/30/2023 7:08 PM CDT Narrative [facility] - 11/30/2023 7:34 PM CDT First Occurrence of the Troponin order is to be drawn Stat by Nursing staff on the unit. Jian Howell MD LABORATORY Performing Organization Address City/[facility] Hospital/ZIP Co de Phone Number [facility] [address] [address] * (ABNORMAL) ED CHEMISTRY LABS(NA,K,CL,CO2,GLU,CREAT,CA-IONIZED,ANION GAP) (11/30/2023 7:02 PM CDT) Sodium 140 135 - 148 mmol/L [facility] Chloride 111(H) 92 - 108 mmol/L [facility] AnGap 7(L) 8 - 16 mmol/L [facility] Glucose 99 70 - 100 mg/dL [facility] ICA, Actual 4.40 4.40 - 5.20 mg/dL [facility] ICA, pH Corrected 4.50 4.40 - 5.20 mg/dL [facility] Creatinine 0.95 0.50 - 1.00 mg/dL [facility] BICARB 22 22 - 26 mEq/L [facility] eGFR (2020 CKD-EPI) 68 >=60 ml/min/1.7 3m2 [facility] Comment: The estimated glomerular filtration rate (eGFR) was calculated using the CKD-EPI 2020 creatinine equation, which does not include race as a factor. This equation is validated in individuals 18 years of age and older, and eGFR is normalized to a body surface area of 1.73m^2. Potassium 4.5 3.5 - 5.3 mmol/L [facility] Blood 11/30/2023 7:02 PM CDT 11/30/2023 7:09 PM CDT Jian Howell MD LABORATORY Performing Organization Address City/Va Hospital/[facility] Co de Phone Number [facility] [address] [address] * (ABNORMAL) ED HEMOGLOBIN TOTAL (ED ONLY) (11/30/2023 7:02 PM CDT) Hgb 10.2(L) 11.5 - 15.7 g/dL [facility] Blood 11/30/2023 7:02 PM CDT 11/30/2023 7:09 PM CDT Jian Howell MD LABORATORY Performing Organization Address City/[facility] Hospital/ZIP Co de Phone Number [facility] [address] [address] * PRECAUTIONARY TUBE (11/30/2023 7:02 PM CDT) Prec Tube Precautionary Blood Bank Specimen Received. [facility] Blood 11/30/2023 7:02 PM CDT 11/30/2023 7:17 PM CDT Jian Howell MD LAB TRANSFUSION SERV ICES Performing Organization Address [facility] Co de Phone Number [facility] [address] [address] * (ABNORMAL) PANEL HEPATIC FUNCTION (11/30/2023 7:02 PM CDT) Total Protein 6.0(L) 6.4 - 8.3 g/dL [facility] Albumin 4.2 3.8 - 5.1 g/dL [facility] Bili Total <0.2 <=1.2 mg/dL [facility] Bili Direct na <=0.3 mg/dL [facility] Comment:BILID < 0.2. Accurac y of result suspect due to hemolysis. Alk Phos 104 35 - 104 IU/L [facility] Comment:No reference range e stablished for patients <18 years old. ALT (SGPT) na <=33 IU/L [facility] Comment:ALT = 8. Accuracy of result suspect due to hemolysis. AST(SGOT) na 5 - 40 IU/L [facility] Comment:AST = 20. Accuracy o f result suspect due to hemolysis. Blood 11/30/2023 7:02 PM CDT 11/30/2023 7:17 PM CDT Jian Howell MD LABORATORY Performing Organization Address City/[facility] Hospital/ZIP Co de Phone Number [facility] [address] [address] * LACTATE (LACTIC ACID) (11/30/2023 7:02 PM CDT) Lactate 1.5 0.7 - 2.1 mmol/L [facility] Blood 11/30/2023 7:02 PM CDT 11/30/2023 7:09 PM CDT Narrative [facility] - 11/30/2023 7:16 PM CDT Send specimen on ice! Jian Howell MD LABORATORY Performing Organization Address [facility] Co de Phone Number [address] [address] * (ABNORMAL) BLOOD GASES (11/30/2023 7:02 PM CDT) PH Juvenal 7.40 7.32 - 7.42 [facility] PCO2 Juvenal 38(L) 41 - 51 mmHG [facility] PO2 Juvenal 39 25 - 40 mmHG [facility] Bicarb Juvenal 23(L) 24 - 28 mEq/L [facility] O2 Sat Juvenal 73 % [facility] Base Exc Juvenal -1.2 -10.0 - 2.0 mmol/L [facility] Blood Venous 11/30/2023 7:02 PM CDT 11/30/2023 7:09 PM CDT Jian Howell MD LABORATORY Performing Organization Address [facility] Co de Phone Number [address] [address] * FIBRINOGEN (11/30/2023 7:02 PM CDT) Fibrinogen 222 200 - 400 mg/dL [facility] Blood 11/30/2023 7:02 PM CDT 11/30/2023 7:17 PM CDT Jian Howell MD LABORATORY Performing Organization Address [facility] Co de Phone Number [address] [address] * ETHANOL (ETOH) LEVEL, BLOOD (11/30/2023 7:02 PM CDT) Ethanol Negative Negative g/dL [facility] Blood 11/30/2023 7:02 PM CDT 11/30/2023 7:17 PM CDT Jian Howell MD LABORATORY Performing Organization Address City/[facility] Hospital/[facility] Co de Phone Number [facility] [address] [address] * CK, TOTAL (11/30/2023 7:02 PM CDT) CK na 26 - 192 [facility] Comment:CK = 82. Accuracy of result suspect due to hemolysis. Blood 11/30/2023 7:02 PM CDT 11/30/2023 7:54 PM CDT Gonzalez Engle MD LABORATOR Y [facility] [address] [address] * PTT (APTT) (11/30/2023 7:02 PM CDT) APTT 31.0 25.0 - 37.0 sec [facility] Blood 11/30/2023 7:02 PM CDT 11/30/2023 7:17 PM CDT Jian Howell MD LABORATORY Performing Organization Address [facility] Co de Phone Number [facility] [address] [address] * ED US CRITICAL CARE (11/30/2023 6:59 [...] resultswithin the time period is included. Narrative Oren AngeloSrgq-Vhlzyt-Uizcriamg - 12/01/2023 9:32 AM CDT Outside Film Only Outside Provider RAD OUTSIDE FILMS * PANEL LIPID (03/19/2009 5:24 AM CANDY POLISHER) [facility] Cholesterol 167 0 - 200 mg/dL [facility] Triglyceride 73 10 - 160 mg/dL [facility] HDL 53 40 - 75 mg/dL [facility] Blood specimen (specimen) 03/19/2009 5:24 AM CANDY POLISHER 03/19/2009 5:59 AM CANDY POLISHER Narrative [facility] - 03/19/2009 7:19 AM CANDY POLISHER Fasting: Yes Joaquin Lozano MD LABORATORY [facility] from Last 3 Months or Most Recently Relevant to Health Maintenance Advance Directives For more information, please contact: [phone] * DNR (Latest Code Status on File) [...] Status With Whom? Not discussed Care Teams Hardware Engineer Relationship Specialty Start Date End Date Pcp, No [facility] NO PCP [place] [address] PCP - General 03/18/09
--- OUTSIDE RECORDS SUMMARY | 2023-12-10 17:38 | XMS_ITS | Encounter Summary ---
Author Organization [facility] Address [address] [place] [address] Phone Care Team Providers Care Us Marketing Director Name Role Phone Pcp, No Primary Care Provider Unavailabl e Reason for Visit * Auth/Cert (Routine) Specialty Diagnoses / Procedures Referred By Contangélica t Referred To Contact ORTHOPEDICS Diagnoses Inadequate pain control Traumatic compartment syndrome of left lower extremity, initial encounter ([facility]) Closed fracture fibula, head, left, initial encounter Gonzalez Engle MD [address] [facility] [address] [place] [address] [facility] [address] [facility] [address] [place] [address] Referral ID Status Reason Start Date Expiration Date Visits Re quested Visits Authorized [id number] 1 1 Encounter Details Date Type Department Care Team (Late st Contact Info) Description 12/01/2023 6:32 AM CDT Anesthesia Event OR P4 [address] [place] [address] Joaquin Herrera MD [address] [place], [place] [id number] [place] [address] Anesthesia Record Procedure Summary Procedure Name Responsible [...] 1124 12/01/23 0642 by Eric Ching APRN, SUPERVISOR MACHINE WORKERS 12/02/23 1124 by Yuliana Carpenter RN Endotracheal [...] [facility]est[facility] type: General () Patient location: PACU [...] GI - negative ROS Hematologic/Onc (+) anemia /Renal/Location Worker - negative ROS Airway Mallampati: II TM [...] and consented by patient. Plan discussed with SUPERVISOR MACHINE WORKERS. Vitals: 12/01/23 0444 BP: 115/68 Pulse: 73 [...] unchanged and oral mucosa unchanged Performed by: SUPERVISOR MACHINE WORKERS: Eric Ching APRN, CRNAAnesthesiologist: Emir Bullock MD [...] st Contact Info) Description 12/15/2023 1:00 PM TILE CONDUIT LAYER [facility] [address] [place] [address] Scheduled Discharge Disposition: Discharged to home or [...] unchanged and oral mucosa unchanged Performed by: SUPERVISOR MACHINE WORKERS: Eric Ching APRN, CRNAAnesthesiologist: Emir Bullock MD [...] mg documented in this encounter Care Teams Us Marketing Director Relationship Specialty Start Date End Date Pcp, [place] [address] PCP - General 03/18/09 documented as of this encounter
--- OUTSIDE RECORDS SUMMARY | 2023-12-10 17:38 | XMS_ITS | Encounter Summary ---
Author Organization [facility] Address [address] [place] [address] Phone Care Team Providers Care Group Exercise Manager Name Role Phone Pcp, No Primary [...] Contact Info) Description 12/15/2023 1:00 PM SUPERVISOR INTERMEDIATES [facility] [address] [address] Scheduled Discharge Disposition: Discharged to home or self care documented as of this encounter Visit Diagnoses Not on filedocumented in this encounter Care Teams Group Exercise Manager Relationship Specialty Start Date End Date Pcp, [place] [address] PCP - General 03/18/09 documented as of this encounter
--- OUTSIDE RECORDS SUMMARY | 2023-12-10 17:38 | XMS_ITS | Encounter Summary ---
Author Organization [facility] Address [address] [place] [address] Phone Care Team Providers Care Plate Molder Name Role Phone Pcp, No Primary Care Provider Unavailabl e Encounter Details Date Type Department Care Team (Late st Contact Info) Description 12/01/2023 Orders Only [facility] Film Room [facility] Radiology Department DIONISIO [address] [phone] Provider, Outside [place] [address] Referral of patient (Primary Dx) Social History [...] st Contact Info) Description 12/15/2023 1:00 PM SOLID WASTE ENGINEER [facility] [address] [place] [address] Scheduled Discharge Disposition: Discharged to home or self care documented as of this encounter Results * XR LOWER EXTREMITY OUTSIDE FILMS (11/30/2023 4:55 PM CDT) Narrative Petey Ffgt-Vpwwoo-Tfqfdhydz - 12/01/2023 9:32 AM CDT Outside Film Only Outside Provider RAD OUTSIDE FILMS * XR LOWER EXTREMITY OUTSIDE FILMS (11/30/2023 4:54 PM CDT) Narrative Petey Chri-Gzehfg-Uylltkqpt - 12/01/2023 9:34 AM CDT Outside Film Only Outside Provider RAD OUTSIDE FILMS * XR LOWER EXTREMITY OUTSIDE FILMS (11/30/2023 4:53 PM CDT) Narrative Petey Jcff-Rgtppc-Rslzvexmn - 12/01/2023 9:33 AM CDT Outside Film Only Outside Provider RAD OUTSIDE FILMS * XR LOWER EXTREMITY OUTSIDE FILMS (11/30/2023 4:51 PM CDT) Narrative User, Yfjk-Loaulf-Zknsuuwss - 12/01/2023 10:15 AM CDT Outside Film Only Outside Provider RAD OUTSIDE FILMS * XR LOWER EXTREMITY OUTSIDE FILMS (11/30/2023 4:50 PM CDT) Narrative User, Szuy-Rbhmli-Epcfzzhmp - 12/01/2023 9:35 AM CDT Outside Film Only Outside Provider RAD OUTSIDE FILMS documented in this encounter Visit Diagnoses Diagnosis Referral of patient- Primary Referral of patient without examination or treatment documented in this encounter Care Teams Plate Molder Relationship Specialty Start Date End Date Pcp, No [place] [address] PCP - General 03/18/09 documented as of this encounter
--- OUTSIDE RECORDS SUMMARY | 2023-12-10 17:38 | XMS_ITS | Encounter Summary ---
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 examining the patient, ordering and review of studies, pulse oximetry, review of laboratory data, interpretation of radiology studies, frequent reassessment, monitoring for potential decompensation, discussion with consultants, and admission. This critical care time was performed to assess and manage the high probability of imminent deterioration that could result in neurologic disability and loss of vision Trauma Team: Tier 2 activation. PROCEDURES Not applicable Gonzalez Gomez MD, 12/08/2023 11:49 AM * Nursing Assessment - Claudia Shane RN [...] Mouth 2 Psychosocial Within Defined Limits * Discharge non-MD/non-CHAPITO Summaries - Leland Daly, PT - 12/03/2023 10:46 AM CDT Images from the original note were not included. Physical Therapy Inpatient Discharge Summary Ramona Sanders [id number] Diagnosis Patient Active Problem List Diagnosis Cocaine abuse (CMS) Alcohol abuse RLS (restless legs syndrome) Cervical stenosis of spinal canal Chronic anemia Depression Essential hypertension, benign GERD (gastroesophageal reflux disease) History of lumbar fusion HLD (hyperlipidemia) Anxiety Opioid dependence with current use (CMS/HHS) Lumbar radiculopathy IBS (irritable bowel syndrome) Type 2 diabetes mellitus without complication, without long-term current use of insulin (CMS/HHS) Closed fracture fibula, head, left, initial encounter Precautions: Weight Bearing Restrictions: NWB LLE (12/03/23 104) Complies w/ Weight Bearing?: Yes (12/03/231044) Precautions: Other (aggressive elevation) (12/03/231044) Complies w/ Precautions?: Yes (12/03/231044) Pain at final sessions: Participation Significantly Limited?: No (12/03/231044) Transfer & Bed Mobility Sit to/from Stand: Modified independent (12/03/231044) Sit to/from Stand - Method: From standard seat height;w/ Assistive device (12/03/231044) Bed to/from Chair: Modified independent (12/03/231044) Bed to/from Chair - Method: From standard seat height;Standing pivot w/ AD (12/03/231044) Scooting: Modified independent (12/03/231044) Gait Device: Axillary crutches;Front wheeled walker (12/03/231044) Assistance: Modified independent (ModIND FWW, CGA-SBA crutches) (12/03/231044) Gait Quality (General): Slowed (NWB LLE) (12/03/231044) Stairs Number of Steps: x6 anterior ascend anterior descned, x3 posterior ascend anterior descend (12/03/231044) Stair Rails: Right rail (and 1 crutch) (12/03/231044) Stairs : Minimal assist (closer to CGA-SBA when ascend posteriorly) (12/03/231044) Stairs Method: Bears weight through R LE (NWB LLE) (12/03/231044) Assistive Devices Used: Axillary crutches (12/03/231044) Equipment Status: Equipment issued (12/03/231044) Crutches (12/03/231044) Status of progress toward established goals: Problem: Decreased Transfer Skills Goal: Patient will transfer sit to/from stand Description: Patient will transfer sit to/from stand with (6) Modified [place] by 01/02/24. Outcome: Met Problem: Decreased Ambulatory Skills Goal: Improve gait Description: Ambulate 20 meters using Front - wheeled walker vs crutches with (6) Modified [place] by 01/02/24. Outcome: Met Goal: Improve gait on stairs Description: Ascend/descend 6 stairs using 1 rail and 1 crutch vs via modified strategy (scooting or shower chair) with (4) Minimal Assistance by 01/02/24. Outcome: Met Plan: Discharge to Home with assist of family Leland Daly, JEANAT Physical Therapy Instructions Activity Recommendations - Using walker, as tolerated [...] your ankle. Discharge Instructions: Using a Walker (Jta-Tdbqom-Onyrdtw) Your doctor has prescribed a walker for you. To use your walker, you need to learn a new gait, or way to walk. Your doctor will tell you to use either a rub-cdlqka-rewqxqk gait (which means putting no weight on one leg and foot). Guidelines for Use Remove throw rugs, electrical cords, and anything else that may cause you to fall. Arrange your household to keep the items you need handy. Keep everything else out of the way. Use a backpack, liset pack, apron, or pockets to carry things so you keep your hands free. Jlv-ddrfwh-tqkendf method Hold your injured (weaker) foot off the floor. Lift the walker (roll it if you???re using a wheeled walker). Move the walker forward about 12 inches. Support your weight on your hands. Swing your good (stronger) foot forward to the center of the walker. Xcc-Vdcoks-Bgrylnt Follow-Up Make a follow-up appointment as directed by our staff. ?? [phone] [employer], [address] [place] [address], [place] [address]. All rights reserved. This information is not intended as a substitute for professional medical care. Always follow your healthcare professional's instructions. Using Crutches: Vyp-Eqlxns-Ifeqvkz A healthy leg can bear your body [...] to begin the next step. ?? [employer], [address] [place] [address]. All rights reserved. This information is not [...] hand as you do so. ?? [employer], [address] [place] [address]. All rights reserved. This information is not [...] Where can I learn more? [facility] https://www.nhsinform.scot/gzuol-zmq-fphfijibpy/ckdegdjag-hpn-yurlent-aids/walki ng-aids/using-crutches [facility] https://www.[facility].gov.au/sites/default/files/2018-08/Using%20crutc hes.pdf Last Reviewed Date 2020-03-08 Consumer Information [...] or approved for treating a specific patient. [employer]. and its affiliates disclaim any warranty or liability relating to this information or the use thereof. The use of this information is governed by the Terms of Use, available at https://www.[employer].com/en/know/opejfbbr-fnmbeburmdxbz-zqvho Copyright Copyright ?? 2021 [employer]. and its affiliates and/or licensors. All rights [...] 10-15 times. Do 3 sessions per day. 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 Luda Perez 12/03/2023 0915 * Nursing Assessment - Ramon Crump RN - 12/03/2023 3:43 AM CDT Nursing Assessment Head to Toe Head to Toe Assessment Shift Summary Shift Summary [id number] Pt is alert, oriented x4, able to [...] able to make needs known. Pt reporting 8-11/19 LLE pain this AM, frustrationover pain management. Provider came bedside. MAR updated to reflect pt's CHOCOLATE PRODUCTION MACHINE OPERATOR medication scheduled. New IV placed to R PIV this AM. Pt has been calling for Q2 IV dilaudid. Intermittently tearful this shift d/t pain. Pain seems to be better managed by 1600. LLE elevated on pillows. Assist of 1 to bathroom, pt has preferred to have external female catheter in place d/t anxiety over pain with movement. This loan underwriter had discussion with pt about removing purewick [...] infusing PIV, tylenol given, pt reporting pain 710 LLE. Reported to primary nurse. Neurologic/Cognitive Within [...] to pharmacy. Associated attestation - Luda Perez, JENNA - 12/02/2023 11:50 AM CDT My signature attests that I was present for patient assessment and administration. I saw the patient with the nursing technician, and discussed with the nursing technician and agree with the nursing technician's findings and plan as documented in the nursing technician's note. Luda Perez, JENNA, 12/02/2023 11:49 AM [...] female D: Ramona Sanders was [place] [facility] [place] at 1315 for Inadequate pain [...] RN, 12/01/2023 3:08 PM Patient Belonging 11/30/2023 1297 Reason for Inventory: ED/APS Admission Patient or family informed of Patient Valuables and Belongings Policy (#[id number]): Due to patient condition, [facility] staff will inventory and secure patient valuables Items Needing Securement: Credit cards;ID;Khan Khan Secured?: Yes Comment: check book ID Secured?: Yes Type: Conference Organizer's License Credit Card Secured?: Yes Quantity: 8 Patient Belongings: Clothing;Other Clothing Comments: black purse, 2 colorful wallets, shirt, pants, bra, socks, shoes Additional Comments: cigarette case, pull up hand, lotion, hair spray Upon admission, a Four [...] CFS >/= 7, consult Palliative Care Consult SULFURIC ACID PLANT OPERATOR for: SULFURIC ACID PLANT OPERATOR consult not indicated at this time *If patient meets criteria for an SULFURIC ACID PLANT OPERATOR consult, please order aspiration precautions Mental Health [...] on guard, watchful, or easily startled? no [place] numb or detached from others, activities, or your surroundings? no Interventions: Completed: none, neg screen Assessment : Raomna Sanders is a 63 y.o. female with history of T2DM, anemia, chronic back and abdominal pain, depression transferred from [facility] that got out of car while it [...] Varela MD - 12/01/2023 6:52 AM CDT [facility] Immediate Post Operative Note Note written: Day of Surgery Patient Name: Ramona Sanders ( ) OR Date: 12/01/202315 Procedure(s) and Anesthesia Type: * FASCIOTOMY, Left LOWER EXTREMITY - General Pre-op History and Physical reviewed. Pre-Op Diagnosis Codes: * Traumatic compartment syndrome of left lower extremity, initial encounter ([facility]) [T79.A22A] Post-Op Diagnosis Codes: * Traumatic compartment syndrome of left lower extremity, initial encounter ([facility]) [T79.A22A] Surgeons and Role: * Lotus Varela [...] a 63 yo female who presents [place] [facility] [place] a [place] after she ran over [...] female presents to the stabilization room from [facility] emergency department as an outside hospital transfer, [...] ED Triage Vitals Enc Vitals Group BP 11/30/23 1903 124/75 Pulse 11/30/233 80 Resp 11/30/231902 16 Temp 11/30/231912 36.8 ??C (98.2 ??F) Temp src 11/30/231912 Oral SpO2 10/20/24 190 96 % Weight 11/30/231912 73.9 kg (162 [...] coming in. ED Course as of 12/01/23 Emery Victoria Nov 30, 20231921 ED CHEMISTRY LABS(NA,K,CL,CO2,GLU,CREAT,CA-IONIZED,ANION GAP)(!): [...] st Contact Info) Description 12/15/2023 1:00 PM BULLDOZER ENGINEER [facility] [address] [place], [place] [phone] Scheduled Discharge Disposition: Discharged to home or self care documented as of this encounter Procedures Procedure Name Priority Date/Time Associated Diagnosis Comments PC LAB CBC W/DIFF & PLT Routine 12/03/2023 4:29 AM CDT PHOSPHORUS Routine [...] CDT) Phosphorus 3.0 2.5 - 4.5 mg/dL [facility] Blood 12/03/2023 4:29 AM CDT 12/03/2023 5:58 AM CDT Kory Kimball MD LABORATORY [facility] [address] [address] * MAGNESIUM (12/03/2023 4:29 AM CDT) Pathologist [facility] Magnesium 2.1 1.6 - 2.4 mg/dL [facility] Blood 12/03/2023 4:29 AM CDT 12/03/2023 5:58 AM CDT Kory Kimball MD LABORATORY Performing Organization Address [facility] Co de Phone Number [facility] [address] [address] * (ABNORMAL) PANEL BASIC METABOLIC (BMP) (12/03/2023 4:29 AM CDT) Pathologist [facility] Sodium 143 135 - 148 mmol/L [facility] Potassium 3.5 3.5 - 5.3 mmol/L [facility] Chloride 110(H) 92 - 108 mmol/L [facility] CO2 25 22 - 30 mmol/L [facility] Glucose 130(H) 70 - 100 mg/dL [facility] BUN 14 8 - 23 mg/dL [facility] Creatinine 0.66 0.50 - 1.00 mg/dL [facility] Calcium 8.5(L) 8.8 - 10.2 mg/dL [facility] AnGap 8 8 - 16 mmol/L [facility] eGFR (2020 CKD-EPI) 100 >=60 ml/min/1.7 3m2 [facility] Comment: The estimated glomerular filtration rate (eGFR) was calculated using the CKD-EPI 2020 creatinine equation, which does not include race as a factor. This equation is validated in individuals 18 years of age and older, and eGFR is normalized to a body surface area of 1.73m^2. Blood 12/03/2023 4:29 AM CDT 12/03/2023 5:58 AM CDT Kory Kimball MD LABORATORY Performing Organization Address [facility] Co de Phone Number [facility] [address] [address] * (ABNORMAL) CBC WITH PLTS/AUTO DIFF (12/03/2023 4:29 AM CDT) WBC 5.82 4.00 - 10.00 k/cmm [facility] RBC 3.61(L) 3.90 - 5.20 m/cmm [facility] Hgb 9.0(L) 11.5 - 15.7 g/dL [facility] Hematocrit 29.6(L) 34.0 - 45.0 % [facility] MCV 82.0 80.0 - 100.0 fL [facility] MCH 24.9(L) 25.0 - 32.0 pg [facility] MCHC 30.4(L) 31.0 - 36.0 g/dL [facility] RDW 17.2(H) 11.5 - 14.5 % [facility] Plt 192 150 - 400 k/cmm [facility] MPV 9.4 6.5 - 12.5 fL [facility] Automated Abs Neutrophil 3.14 1.70 - 6.50 k/cmm [facility] Comment:Preliminary ANC, Fin al Result to Follow Abs Immature Granulocyte 0.02 0.00 - 0.09 k/cmm [facility] Comment:The Immature Granulo cyte Absolute count contains metamyelocytes and myelocytes. Abs Neutrophil 3.14 1.70 - 6.50 k/cmm [facility] Abs Lymphocyte 1.89 0.80 - 4.00 k/cmm [facility] Abs Monocyte 0.47 0.20 - 1.00 k/cmm [facility] Abs Eosinophil 0.28 0.00 - 0.60 k/cmm [facility] Abs Basophil 0.02 0.00 - 0.20 k/cmm [facility] Blood 12/03/2023 4:29 AM CDT 12/03/2023 5:58 AM CDT Kory Kimball MD LABORATORY [facility] [address] [place] [phone] * (ABNORMAL) PANEL BASIC METABOLIC (BMP) (12/02/2023 4:42 AM CDT) Pathologist [facility] AnGap 9 8 - 16 mmol/L [facility] Creatinine 0.73 0.50 - 1.00 mg/dL [facility] Calcium 8.5(L) 8.8 - 10.2 mg/dL [facility] eGFR (2020 CKD-EPI) 94 >=60 ml/min/1.7 3m2 [facility] Comment: The estimated glomerular filtration rate (eGFR) was calculated using the CKD-EPI 2020 creatinine equation, which does not include race as a factor. This equation is validated in individuals 18 years of age and older, and eGFR is normalized to a body surface area of 1.73m^2. BUN 11 8 - 23 mg/dL [facility] Sodium 141 135 - 148 mmol/L [facility] CO2 24 22 - 30 mmol/L [facility] Glucose 120(H) 70 - 100 mg/dL [facility] Chloride 108 92 - 108 mmol/L [facility] Potassium 3.5 3.5 - 5.3 mmol/L [facility] Blood 12/02/2023 4:42 AM CDT 12/02/2023 5:19 AM CDT Joaquin Snow MD LABORATORY [facility] [address] [address] * (ABNORMAL) CBC WITH PLTS/AUTO DIFF (12/02/2023 4:42 AM CDT) WBC 6.95 4.00 - 10.00 k/cmm [facility] RBC 3.71(L) 3.90 - 5.20 m/cmm [facility] Hgb 9.4(L) 11.5 - 15.7 g/dL [facility] Hematocrit 31.1(L) 34.0 - 45.0 % [facility] MCV 83.8 80.0 - 100.0 fL [facility] MCH 25.3 25.0 - 32.0 pg [facility] MCHC 30.2(L) 31.0 - 36.0 g/dL [facility] RDW 17.0(H) 11.5 - 14.5 % [facility] Plt 197 150 - 400 k/cmm [facility] MPV 9.0 6.5 - 12.5 fL [facility] NRBC 0.3(H) 0.0 - 0.0 /100WBC [facility] Automated Abs Neutrophil 3.98 1.70 - 6.50 k/cmm [facility] Comment:Preliminary ANC, Fin al Result to Follow Abs Immature Granulocyte 0.03 0.00 - 0.09 k/cmm [facility] Comment:The Immature Granulo cyte Absolute count contains metamyelocytes and myelocytes. Abs Neutrophil 3.98 1.70 - 6.50 k/cmm [facility] Abs Lymphocyte 2.25 0.80 - 4.00 k/cmm [facility] Abs Monocyte 0.45 0.20 - 1.00 k/cmm [facility] Abs Eosinophil 0.21 0.00 - 0.60 k/cmm [facility] Abs Basophil 0.03 0.00 - 0.20 k/cmm [facility] Blood 12/02/2023 4:42 AM CDT 12/02/2023 5:19 AM CDT Joaquin Snow MD LABORATORY Performing Organization Address City/[facility]/ZIP Co de Phone Number [facility] [place] [phone] * VITAMIN [id number] TO MMA (12/02/2023 4:42 AM CDT) B12 340 211 - 946 pg/mL [facility] Blood 12/02/2023 4:42 AM CDT 12/02/2023 5:19 AM CDT Joaquin Snow MD LABORATORY Performing Organization Address City/[facility]/ZIP Co de Phone Number [facility] [address] [address] * (ABNORMAL) TRANSFERRIN (INCLUDES TIBC) (12/02/2023 4:42 AM CDT) Transferrin 230 200 - 360 mg/dL [facility] IBC 343 298 - 536 mcg/dL [facility] Iron Saturation Percent 6(L) 20 - 50 % [facility] Blood 12/02/2023 4:42 AM CDT 12/02/2023 5:19 AM CDT Joaquin Snow MD LABORATORY Performing Organization Address [facility] Co de Phone Number [facility] [address] [address] * (ABNORMAL) IRON (12/02/2023 4:42 AM CDT) Iron 19(L) 35 - 145 mcg/dL [facility] Blood 12/02/2023 4:42 AM CDT 12/02/2023 5:19 AM CDT Joaquin Snow MD LABORATORY Performing Organization Address [facility] Co de Phone Number [facility] [address] [address] * FERRITIN (12/02/2023 4:42 AM CDT) Ferritin 18.0 13.0 - 150.0 ng/mL [facility] Comment: Test Performed by: [facility] [address] [place] [address] Blood 12/02/2023 4:42 AM CDT 12/02/2023 5:19 AM CDT Joaquin Snow MD LABORATORY Performing Organization Address [facility] de Phone Number [facility] [address] [address] * XR SHOULDER RT 2/3V AP/GRASH/Y* (12/01/2023 [...] 108(H) 70 - 100 mg/dL [facility] Blood 12/01/2023 9:07 AM CDT Gonzalez Gomez MD LABORATOR Y [facility] [address] [place] [address], [place] * (ABNORMAL) POC GLUCOSE (12/01/2023 6:22 AM CDT) POC Glucose 101(H) 70 - 100 mg/dL [facility] Blood 12/01/2023 6:22 AM CDT Gonzalez Gomez MD LABORATOR Y Performing Organization Address [facility] Co de Phone Number [facility] [address] [place] [address], [place] * CT LOW EXTREMITY LEFT NO [...] distinct acute osseous abnormality. Procedure Note Lester Graves, DO - 11/30/2023 Technique: XR CHEST 1 [...] 390 ms QTC Interval 434 ms P [place] 78 QRS [place] 77 T Wave [place] 76 Narrative Procedure Note Greg Posey MD - 12/01/2023 IMPRESSION SINUS RHYTHM POSSIBLE RIGHT ATRIAL ENLARGEMENT [0.25mV P-WAVE] BORDERLINE ECG P-R Interval 176 ms QRS Interval 95 ms QT Interval 390 ms QTC Interval 434 ms P [place] 78 QRS [place] 77 T Wave [place] 76 Jian Howell MD EKG Performing Organization Address City/[facility] Co de Phone Number [facility] CVIS EKG ORDERS * CK, TOTAL (11/30/2023 7:02 PM CDT) CK na 26 - 192 [facility] Comment:CK = 82. Accuracy of result suspect due to hemolysis. Blood 11/30/2023 7:02 PM CDT 11/30/2023 7:54 PM CDT Gonzalez Gomez MD LABORATOR Y Performing Organization Address City/[facility] Co de Phone Number [facility] [address] [address] * EXTRA TUBE - SST (11/30/2023 7:02 PM CDT) Pathologist [facility] SST TUBE Stored [facility] Comment:SST tubes (Serum Sep arator) are stored in the lab for 3 days from the collection date. Blood 11/30/2023 7:02 PM CDT 11/30/2023 7:09 PM CDT Jian Howell MD LABORATORY Performing Organization Address [facility] Co de Phone Number [facility] [address] [address] * HS TROPONIN (11/30/2023 7:02 PM CDT) Pathologist [facility] HS Troponin I <3 <=14 ng/L [facility] Blood 11/30/2023 7:02 PM CDT 11/30/2023 7:08 PM CDT Narrative [facility] - 11/30/2023 7:34 PM CDT First Occurrence of the Troponin order is to be drawn Stat by Nursing staff on the unit. Jian Howell MD LABORATORY Performing Organization Address [facility] [place]/[facility] Co de Phone Number [facility] [address] [address] * ETHANOL (ETOH) LEVEL, BLOOD (11/30/2023 7:02 PM CDT) Pathologist [facility] Ethanol Negative Negative g/dL [facility] Blood 11/30/2023 7:02 PM CDT 11/30/2023 7:17 PM CDT Jian Howell MD LABORATORY Performing Organization Address [facility] [place]/[facility] Co de Phone Number [facility] [address] [address] * PTT (APTT) (11/30/2023 7:02 PM CDT) [facility] APTT 31.0 25.0 - 37.0 sec [facility] Blood 11/30/2023 7:02 PM CDT 11/30/2023 7:17 PM CDT Jian Howell MD LABORATORY Performing Organization Address [facility] de Phone Number [facility] [address] [address] * ED INR (11/30/2023 7:02 PM CDT) [facility] ED INR 1.0 0.8 - 1.1 [facility] Comment: Warfarin Therapeutic Range: Standard Intensity: 2.0 - 3.0 High Intensity: 2.5 - 3.5 This is a rapid INR screening test which uses whole blood; results may infrequently differ from plasma INR results. If medication adjustments/dosing are required a PT/INR test ([id number]) should be ordered and performed in the main laboratory. Blood 11/30/2023 7:02 PM CDT 11/30/2023 7:08 PM CDT Jian Howell MD LABORATORY Performing Organization Address City/[facility] [place]/ZIP Co de Phone Number [facility] [address] [address] * PRECAUTIONARY TUBE (11/30/2023 7:02 PM CDT) Pathologist [facility] Prec Tube Precautionary Blood Bank Specimen Received. [facility] Blood 11/30/2023 7:02 PM CDT 11/30/2023 7:17 PM CDT Jian Howell MD LAB TRANSFUSION SERV ICES Performing Organization Address [facility] [place]/ZIP Co de Phone Number [facility] [address] [address] * LACTATE (LACTIC ACID) (11/30/2023 7:02 PM CDT) Pathologist [facility] Lactate 1.5 0.7 - 2.1 mmol/L [facility] Blood 11/30/2023 7:02 PM CDT 11/30/2023 7:09 PM CDT Narrative [facility] - 11/30/2023 7:16 PM CDT Send specimen on ice! Jian Howell MD LABORATORY Performing Organization Address [facility] [place]/[facility] Co de Phone Number [facility] [address] [address] * FIBRINOGEN (11/30/2023 7:02 PM CDT) Pathologist [facility] Fibrinogen 222 200 - 400 mg/dL [facility] Blood 11/30/2023 7:02 PM CDT 11/30/2023 7:17 PM CDT Jian Howell MD LABORATORY Performing Organization Address City/[facility] [place]/ZIP Co de Phone Number [facility] [address] [address] * (ABNORMAL) PANEL HEPATIC FUNCTION (11/30/2023 7:02 PM CDT) Total Protein 6.0(L) 6.4 - 8.3 g/dL [facility] Albumin 4.2 3.8 - 5.1 g/dL [facility] Bili Total <0.2 <=1.2 mg/dL [facility] Bili Direct na <=0.3 mg/dL [facility] Comment:BILID < 0.2. Accurac y of result suspect due to hemolysis. Alk Phos 104 35 - 104 IU/L [facility] Comment:No reference range e stablished for patients <18 years old. ALT (SGPT) na <=33 IU/L [facility] Comment:ALT = 8. Accuracy of result suspect due to hemolysis. AST(SGOT) na 5 - 40 IU/L [facility] Comment:AST = 20. Accuracy o f result suspect due to hemolysis. Blood 11/30/2023 7:02 PM CDT 11/30/2023 7:17 PM CDT Jian Howell MD LABORATORY Performing Organization Address City/[facility] [place]/ZIP Co de Phone Number [facility] [address] [address] * (ABNORMAL) ED HEMOGLOBIN TOTAL (ED ONLY) (11/30/2023 7:02 PM CDT) Hgb 10.2(L) 11.5 - 15.7 g/dL [facility] Blood 11/30/2023 7:02 PM CDT 11/30/2023 7:09 PM CDT Jian Howell MD LABORATORY Performing Organization Address City/[facility] [place]/ZIP Co de Phone Number [facility] [address] [address] * (ABNORMAL) ED CHEMISTRY LABS(NA,K,CL,CO2,GLU,CREAT,CA-IONIZED,ANION GAP) (11/30/2023 7:02 PM CDT) Sodium 140 135 - 148 mmol/L [facility] Chloride 111(H) 92 - 108 mmol/L [facility] AnGap 7(L) 8 - 16 mmol/L [facility] Glucose 99 70 - 100 mg/dL [facility] ICA, Actual 4.40 4.40 - 5.20 mg/dL [facility] ICA, pH Corrected 4.50 4.40 - 5.20 mg/dL [facility] Creatinine 0.95 0.50 - 1.00 mg/dL [facility] BICARB 22 22 - 26 mEq/L [facility] eGFR (2020 CKD-EPI) 68 >=60 ml/min/1.7 3m2 [facility] Comment: The estimated glomerular filtration rate (eGFR) was calculated using the CKD-EPI 2020 creatinine equation, which does not include race as a factor. This equation is validated in individuals 18 years of age and older, and eGFR is normalized to a body surface area of 1.73m^2. Potassium 4.5 3.5 - 5.3 mmol/L [facility] Blood 11/30/2023 7:02 PM CDT 11/30/2023 7:09 PM CDT Jian Howell MD LABORATORY [facility] [address] [address] * (ABNORMAL) CBC WITH PLTS/AUTO DIFF (11/30/2023 7:02 PM CDT) WBC 9.81 4.00 - 10.00 k/cmm [facility] RBC 3.98 3.90 - 5.20 m/cmm [facility] Hgb 10.1(L) 11.5 - 15.7 g/dL [facility] Hematocrit 32.6(L) 34.0 - 45.0 % [facility] MCV 81.9 80.0 - 100.0 fL [facility] MCH 25.4 25.0 - 32.0 pg [facility] MCHC 31.0 31.0 - 36.0 g/dL [facility] RDW 16.9(H) 11.5 - 14.5 % [facility] Plt 233 150 - 400 k/cmm [facility] MPV 9.1 6.5 - 12.5 fL [facility] Automated Abs Neutrophil 6.22 1.70 - 6.50 k/cmm [facility] Comment:Preliminary ANC, Fin al Result to Follow Abs Immature Granulocyte 0.03 0.00 - 0.09 k/cmm [facility] Comment:The Immature Granulo cyte Absolute count contains metamyelocytes and myelocytes. Abs Neutrophil 6.22 1.70 - 6.50 k/cmm [facility] Abs Lymphocyte 2.73 0.80 - 4.00 k/cmm [facility] Abs Monocyte 0.49 0.20 - 1.00 k/cmm [facility] Abs Eosinophil 0.30 0.00 - 0.60 k/cmm [facility] Abs Basophil 0.04 0.00 - 0.20 k/cmm [facility] Blood 11/30/2023 7:02 PM CDT 11/30/2023 7:16 PM CDT Jian Howell MD LABORATORY Performing Organization Address [facility] [place]/[facility] Co de Phone Number [address] [address] * (ABNORMAL) BLOOD GASES (11/30/2023 7:02 PM CDT) PH Juvenal 7.40 7.32 - 7.42 [facility] PCO2 Juvenal 38(L) 41 - 51 mmHG [facility] PO2 Juvenal 39 25 - 40 mmHG [facility] Bicarb Juvenal 23(L) 24 - 28 mEq/L [facility] O2 Sat Juvenal 73 % [facility] Base Exc Juvenal -1.2 -10.0 - 2.0 mmol/L [facility] Blood Venous 11/30/2023 7:02 PM CDT 11/30/2023 7:09 PM CDT Jian Howell MD LABORATORY Performing Organization Address [facility] [place]/[facility] Co de Phone Number [address] [address] * ED US CRITICAL CARE (11/30/2023 6:59 [...] 5:39 PM CDT 2 g 200 mL/hr DC MED REC REVIEW BY PHARMACY Discharge [...] Esquivel)[id number] (Dual Sign-Off - Provider: Luda Perez, JENNA)1452 (Not Given (removes Due time) - Provider: [...] Bradford RN)2149 (New Bag - Provider: Kobi Dean RN)2230 (Infusion completed - Provider: Kobi Dean RN) [...] Esquivel)0857 (Dual Sign-Off - Provider: Luda Perez, RN)2018 (Given - Provider: Yuliana Carpenter RN) 0845 (Given - Provider: IVAN Esquivel)0907 (Dual Sign-Off - Provider: Luda Perez, RN) oxyCODONE (OxyCONTIN) CR tablet 20 mg 20 [...] Patient refused) 1848 (Given - Provider: Yuliana Carpenter RN) simvastatin [...] Claudia Shane, JENNA)1437 (Given - Provider: Claudia Shane RN) hydrOXYzine [...] Procedure documented in this encounter Care Teams Boarding Mother Relationship Specialty Start Date End Date Pcp, [place] [address] PCP - General 03/18/09 documented as of this encounter
--- OUTSIDE RECORDS SUMMARY | 2023-12-10 17:39 | XMS_ITS | Encounter Summary ---
Author Organization [facility] Address [address] [place] [id number] Care Team Providers Care Head Of Strategy Name Role Phone [facility] Unava ilable Hayes Mcelroy MD Primary Care Provider [phone] Reason for Referral * (Routine) - Open Specialty Diagnoses / Procedures Referred By Contac t Referred To Contact Diagnoses Postoperative state S/P lumbar fusion Lumbar spine pain Procedures XR SPINE LUMBAR ROUTINE Jg Ivory PA-C [address] [address] Referral ID Status Reason Start Date Expiration Date Visits Re quested Visits Authorized [id number] Open 2023 1 1 Reason for Visit * Reason Comments Post op check Post op: 09/23/23 Philippe ateral RHW L2-Pelvis, with exploration of L3-4 fusion and replacement of rods L3-4 (SMS) Encounter Details Date Type Department Care Team (Latest Contact Info) Description 10/28/2023 9:15 AM CDT Office Visit [facility] (an [facility] of [facility]) [address] [place] [address] gJ Ivory PA-C [address] [facility] [address] [place], [place] [id number] Postoperative state (Primary Dx); S/P lumbar fusion; Lumbar spine pain Social History Tobacco Use Types Packs/Day Years Used Date Smoking Tobacco: Former Cigarettes Smokeless Tobacco: Never Tobacco Cessation:Counseling Given: Not Answered Comments:Quit august 2023 Alcohol Use Standard Drinks/Week Comments Not Currently 0 (1 standard drink = 0.6 oz pur e alcohol) [facility] Utilities Answer Date Recorded In the past [...] the past 12 m [facility], were you homeless or living in a [...] included. Ramona Sanders 60F Refine SearchContact the [place] Date of : 1960 Recent Address: [address] [place] [address] SAH[place] Luke [address] Status of States Queried: View Details View Linked Records (2) Other Tools/Metrics Report Criteria First Name: Ramona Last Name: Marilyn : 1960 Linked Records ? Name: Ramona Sanders : 1960 ID: 1 Gender: Female Address: [address] [place] [address] [place] Luke [address] Name: Ramona Sanders : 1960 ID: [id number] Gender: Female Address: [address] [place] [address] [place] Luke [address] Report generated on 10/27/2023. Report Date Range: [...] How should I use this information? ABOVE [id number] NARX SCORES NARCOTICS 540 ACTIVE RX 1 [...] # Dispenser Refill Daily Dose* Pymt Type FURNACE FITTER 09/27/2023 09/25/2023 09/27/2023 1 Oxycontin Er 20 Mg Tablet 90.00 30 Ca Van [id number] Sup (6706) 0/090.00 [place] 09/26/2023 09/25/2023 09/26/2023 1 Oxycodone Hcl (Ir) 15 Mg Tab 60.00 30 Ca Van [id number] Sup (6706) 0/0 45.00 [place] 09/26/2023 09/25/2023 09/26/2023 1 Oxycodone Hcl (Ir) 10 Mg Tab 90.00 30 Ca Van [id number] Sup (6706) 0/0 45.00 [place] 09/25/2023 09/25/2023 2 Hydromorphone 4 Mg Tablet 40.00 7 [facility] [id number] Nor (1997) 0/0 114.29 [place] 09/25/2023 09/25/2023 2 Oxycontin Er 20 Mg Tablet 10.00 4 [facility] [id number] Nor (1997) 0/0 75.00 [place] 08/29/2023 08/29/2023 08/29/2023 1 Oxycontin Er 20 Mg Tablet 90.00 30 Ca Van [id number] Sup (6706) 0/090.00 [place] 08/29/2023 08/29/2023 08/29/2023 1 Oxycodone Hcl (Ir) 10 Mg Tab 90.00 30 Ca Van [id number] Sup (6706) 0/0 45.00 [place] 08/29/2023 08/29/2023 08/29/2023 1 Oxycodone Hcl (Ir) 15 Mg Tab 60.00 30 Ca Van [id number] Sup (6706) 0/0 45.00 [place] 08/20/2023 08/20/2023 08/24/2023 1 Lorazepam 1 Mg Tablet 90.00 30 Pe Buc [id number] Sup (6706) 0/0 3.00 [place] 07/30/2023 07/30/2023 07/30/2023 1 Oxycontin Er 20 Mg Tablet 90.00 30 Ca Van [id number] Sup (6706) 0/090.00 [place] 07/30/2023 07/30/2023 07/30/2023 1 Oxycodone Hcl (Ir) 10 Mg Tab 90.00 30 Ca Van [id number] Sup (6706) 0/0 45.00 [place] 07/30/2023 07/30/2023 07/30/2023 1 Oxycodone Hcl (Ir) 15 Mg Tab 60.00 30 Ca Van [id number] Sup (6706) 0/0 45.00 [place] 07/02/2023 07/02/2023 07/02/2023 1 Oxycodone Hcl (Ir) 15 Mg Tab 60.00 30 Ca Van [id number] Sup (8526) 0/0 45.00 [place] 07/02/2023 07/02/2023 07/02/2023 1 Oxycodone Hcl (Ir) 10 Mg Tab 90.00 30 Ca Van [id number] Sup (6706) 0/0 45.00 [place] 07/02/2023 07/02/2023 07/02/2023 1 Oxycontin Er 20 Mg Tablet 90.00 30 Ca Van [id number] Sup (1126) 0/090.00 [place] Providers Total: 4 Showing 1-4 of 4 Items View 1 of 1 Name Address [facility] Zipcode Phone Cate Thomas [address] [address] [facility] [address] Kiara Álvarez, MSN [address] [place] [address] Tasha Hendrickson [address] [place] [address] Vladimir Paez [address] [facility] [address] [facility] [address] Showing 1-4 of 4 Items View 1 of 1 Pharmacies Total: 2 Showing 1-2 of 2 Items View 1 of 1 Name Address [facility] Zipcode Phone [employer] [phone] [address] [facility] [phone] [place] [address] As a proxy delegate, I have [...] Lumbago documented in this encounter Care Teams Head Of Strategy Relationship Specialty Start Date End Date [facility] [address] [address] PCP - Primary Care Clinic 09/18/22 [place] [address] [place] [address] PCP - General 05/20/23 documented as of this encounter
--- OUTSIDE RECORDS SUMMARY | 2023-12-10 17:39 | XMS_ITS | Encounter Summary ---
Author Organization [facility] Address [address] [place] [address] Care Team Providers Care Potline Monitor Name Role Phone [facility]- Unava ilable Hayes Mcelroy MD Primary Care Provider [phone] Reason for Referral * (Routine) - Open Specialty Diagnoses / Procedures Referred By Contac t Referred To Contact Procedures Discharge Instructions Vladimir Paez PA-C [address] [address] Referral ID Status Reason Start Date Expiration Date Visits Re quested Visits Authorized [id number] Open 09/25/2023 1 1 * (Routine) - Open Specialty Diagnoses / Procedures Referred By Contac t Referred To Contact Procedures Discharge Instructions Vladimir Paez PA-C [address] [address] Referral ID Status Reason Start Date Expiration Date Visits Re quested Visits Authorized [id number] Open 09/25/2023 1 1 * (Routine) - Open Specialty Diagnoses / Procedures Referred By Contac t Referred To Contact Procedures Discharge Instructions Vladimir Paez PA-C [address] [address] Referral ID Status Reason Start Date Expiration Date Visits Re quested Visits Authorized [id number] Open 09/25/2023 1 1 * (Routine) - Open Specialty Diagnoses / Procedures Referred By Contac t Referred To Contact Procedures Wound care Vladimir Paez PA-C [address] [address] Referral ID Status Reason Start Date Expiration Date Visits Re quested Visits Authorized [id number] Open 09/25/2023 1 1 * (Routine) - Open Specialty Diagnoses / Procedures Referred By Contac t Referred To Contact Procedures Dressing Change Vladimir Paez PA-C [address] [address] Referral ID Status Reason Start Date Expiration Date Visits Re quested Visits Authorized [id number] Open 09/25/2023 1 1 * (Routine) - Open Specialty Diagnoses / Procedures Referred By Contac t Referred To Contact Procedures Discharge Instructions Vladimir Paez PA-C [address] [address] Referral ID Status Reason Start Date Expiration Date Visits Re quested Visits Authorized [id number] Open 09/25/2023 1 1 * (Routine) - Open Specialty Diagnoses / Procedures Referred By Contac t Referred To Contact Procedures Shower Vladimir Paez PA-C [address] [address] Referral ID Status Reason Start Date Expiration Date Visits Re quested Visits Authorized [id number] Open 09/25/2023 1 1 * (Routine) - Open Specialty Diagnoses / Procedures Referred By Contac t Referred To Contact Procedures Discharge Instructions Vladimir Paez PA-C [address] [address] Referral ID Status Reason Start Date Expiration Date Visits Re quested Visits Authorized [id number] Open 09/25/2023 1 1 * (Routine) - Open Specialty Diagnoses / Procedures Referred By Contac t Referred To Contact Procedures Activity as tolerated Vladimir Paez PA-C [address] [address] Referral ID Status Reason Start Date Expiration Date Visits Re quested Visits Authorized [id number] Open 09/25/2023 1 1 * (Routine) - Open Specialty Diagnoses / Procedures Referred By Contac t Referred To Contact Vladimir Paez PA-C [address] [address] Blaire Sharif PA-C [address] [address] Referral ID Status Reason Start Date Expiration Date Visits Re quested Visits Authorized [id number] Open 09/25/2023 1 1 Question Answer Specify time frame for follow up? 2 Weeks Instructions to follow-up provider routine post op f/u Comments Return to clinic in 2-4 weeks for post op visit. Please call [phone] option 1 for an appointment if no appointment scheduled within 1 week of discharge * (Routine) - Open Specialty Diagnoses / Procedures Referred By Contac t Referred To Contact Vladimir Paez PA-C [address] [address] Blaire Sharif PA-C [address] [address] Referral ID Status Reason Start Date Expiration Date Visits Re quested Visits Authorized [id number] Open 09/25/2023 1 1 Question Answer Instructions to follow-up provider n/a Comments If you need a refill on your prescriptions, or you have questions or concerns, please call [phone] during office hours, Friday-Friday 8:30 a.m. to 4:30 p.m. Please plan ahead if you are running low and expect to require a refill. * (Routine) - Open Specialty Diagnoses / Procedures Referred By Contac t Referred To Contact Procedures Temperature >101 (38.3 degrees Celsius) Vladimir Paez PA-C [address] [address] Referral ID Status Reason Start Date Expiration Date Visits Re quested Visits Authorized [id number] Open 09/25/2023 1 1 * (Routine) - Open Specialty Diagnoses / Procedures Referred By Contac t Referred To Contact Procedures Severe uncontrolled pain Vladimir Paez PA-C [address] [address] Referral ID Status Reason Start Date Expiration Date Visits Re quested Visits Authorized [id number] Open 09/25/2023 1 1 * (Routine) - Open Specialty Diagnoses / Procedures Referred By Contac t Referred To Contact Procedures Increased tenderness or swelling Vladimir Paez PA-C [address] [address] Referral ID Status Reason Start Date Expiration Date Visits Re quested Visits Authorized [id number] Open 09/25/2023 1 1 * (Routine) - Open Specialty Diagnoses / Procedures Referred By Contac t Referred To Contact Procedures Persistent nausea or vomiting Vladimir Paez PA-C [address] [address] Referral ID Status Reason Start Date Expiration Date Visits Re quested Visits Authorized [id number] Open 09/25/2023 1 1 * (Routine) - Open Specialty Diagnoses / Procedures Referred By Contac t Referred To Contact Procedures Pain not relieved by medication Vladimir Paez PA-C [address] [address] Referral ID Status Reason Start Date Expiration Date Visits Re quested Visits Authorized [id number] Open 09/25/2023 1 1 * (Routine) - Open Specialty Diagnoses / Procedures Referred By Contac t Referred To Contact Procedures Numbness/pain in extremity Vladimir Paez PA-C [address] [address] Referral ID Status Reason Start Date Expiration Date Visits Re quested Visits Authorized [id number] Open 09/25/2023 1 1 * (Routine) - Open Specialty Diagnoses / Procedures Referred By Contac t Referred To Contact Procedures Increased confusion Vladimir Paez PA-C [address] [address] Referral ID Status Reason Start Date Expiration Date Visits Re quested Visits Authorized [id number] Open 09/25/2023 1 1 * (Routine) - Open Specialty Diagnoses / Procedures Referred By Contac t Referred To Contact Procedures Inability to eat, drink, or take medication Vladimir Paez PA-C [address] [place] [address] Referral ID Status Reason Start Date Expiration Date Visits Re quested Visits Authorized [id number] Open 09/25/2023 1 1 * (Routine) - Open Specialty Diagnoses / Procedures Referred By Contac t Referred To Contact Procedures Difficulty breating, headache, or visual disturbance Vladimir Paez PA-C [address] [place] [address] Referral ID Status Reason Start Date Expiration Date Visits Re quested Visits Authorized [id number] Open 09/25/2023 1 1 * (Routine) - Open Specialty Diagnoses / Procedures Referred By Contac t Referred To Contact Procedures Any questions or concerns Vladimir Paez PA-C [address] [place] [address] Referral ID Status Reason Start Date Expiration Date Visits Re quested Visits Authorized [id number] Open 09/25/2023 1 1 Reason for Visit [...] Expiration Date Visits Re quested Visits Authorized [id number] 1 1 Encounter Details Date Type Department Care Team (Late st Contact Info) Description 09/23/2023 5:55 AM CDT - 09/25/2023 11:44 AM CDT Hospital Encounter W5 [id number] [facility] [place] [place] [address] Brock Sawyer MD [address] [facility] [address] [place] [address] Chronic pain disorder Discharge Disposition: Returning Home/Self Care Social History Tobacco Use Types Packs/Day Years Used Date Smoking Tobacco: Former Cigarettes Smokeless Tobacco: Never Tobacco Cessation:Counseling Given: Not Answered Comments:Quit august 2023 Alcohol Use Standard Drinks/Week Comments Not Currently 0 (1 standard drink = 0.6 oz pur e alcohol) [facility] Utilities Answer Date Recorded In the past 12 months has e [employer], gas, oil, or water [place] threatened to shut off services in your [...] device of vertebrae, initial encounter ([facility]) [T84.216A] Principal Problem: Chronic pain [...] in november.* naloxone (NARCAN) 4 mg/actuation Nasal [place] Administer one dose (4 mg) into nostril [...] re-establish your bowel program. You may take qimj-vou-xfycwsp stool medications as directed by the package [...] your pain clinic. FOLLOW-UP: She should see [facility] for first recheck in 2-4 weeks. Call for appointment if one not already in place. [phone] Sawyer [phone] Total time spent for discharge on date of discharge: 20 minutes. Vladimir Paez PA-C [facility] documented in this encounter [...] 3 09/25/2023 naloxone (NARCAN) 4 mg/actuation Nasal [place] Administer one dose (4 mg) into nostril [...] - 09/25/2023 11:02 AM CDT Ramona Benavides Otero 1960 [id number] P: Discharge A: Discharged ambulatory to home [...] with metformin, chronic lower back pain on OTOLARYNGOLOGY TEACHER narcotics, hyperlipidemia managed with Zocor who had [...] exploring L3-4 Fusion and replacement of rods L3-C9pdioe Routine postop cares including DVT prophylaxis pain management, drain management,ambulation per NSGYteam T2DM On OTOLARYNGOLOGY TEACHER metformin. Hold for now Very low-dose SSI with hypoglycemia protocol Regular diet at patient request Depression Resume OTOLARYNGOLOGY TEACHER Wellbutrin and Cymbalta Chronic pain syndrome 2/2 LBP On OTOLARYNGOLOGY TEACHER opoid including Cymbalta. Primary team/NSGY managing pain [...] hours 20 mL/24 hours Vladimir Paez PA-C [facility] * Waqas Rodriguez RN [...] with metformin, chronic lower back pain on OTOLARYNGOLOGY TEACHER narcotics, hyperlipidemia managed with Zocor who had [...] exploring L3-4 Fusion and replacement of rods L3-L6kchwy Routine postop cares including DVT prophylaxis pain management, drain management,ambulation per NSGYteam T2DM On OTOLARYNGOLOGY TEACHER metformin. Hold for now Very low-dose SSI with hypoglycemia protocol Regular diet at patient request Depression Resume OTOLARYNGOLOGY TEACHER Wellbutrin and Cymbalta Chronic pain syndrome 2/2 LBP On OTOLARYNGOLOGY TEACHER opoid including Cymbalta. Primary team/NSGY managing pain [...] for: POTASSIUM, SODIUM, WBC Fabiola Zavala PA-C [facility] * Soco Paez RN [...] to call for help, name of assigned personal care worker, PatientInformation booklet, initial physician orders, hourly rounding [...] DM II, chronic lower back pain on OTOLARYNGOLOGY TEACHER narcotics, HLD Patient Seen In: Room Family/Caregiver [...] most limited by worsening pain limiting progression [facility] AM-PAC 6-Clicks Turning over in bed [...] CONSULT NOTE Patient Name: Ramona Sanders Address: [address] [place] [address] [place] [address] Age:62 y.o. Sex: female Admission Date/Time: 09/23/2023 [...] with metformin, chronic lower back pain on OTOLARYNGOLOGY TEACHER narcotics, hyperlipidemia managed with Zocor. At bedside [...] Other Skin irritation around eyes Baclofen Nausea Tdaoeqnyyxfy-Uuxgevv-Wccbmna Compazine [Prochlorperazine] Other Tongue in and out [...] with metformin, chronic lower back pain on OTOLARYNGOLOGY TEACHER narcotics, hyperlipidemia managed with Zocor. Principal Problem: Chronic pain disorder S/p bilateral removal of hardware L2-Pelvis and exploring L3-4 Fusion and replacement of rods L3-P4ldykv Routine postop cares including DVT prophylaxis pain management, ambulation per NSGYteam T2DM On OTOLARYNGOLOGY TEACHER metformin. Hold for now Very low-dose SSI with hypoglycemia protocol Depression Resume OTOLARYNGOLOGY TEACHER Wellbutrin and Cymbalta Chronic pain syndrome 2/2 LBP On OTOLARYNGOLOGY TEACHER opoid including Cymbalta. Primary team/NSGY managing pain [...] Outcome: Met this shift Flowsheets (Taken 09/24/2023 7579) Environmental Safety Interventions: Standard Interventions in Place [...] device of vertebrae, initial encounter ([facility]) [T84.216A] Chronic pain disorder [G89.4] Admitted from: Home Prior: Living Arrangements: Spouse/significant other Jerry Hughesdith (UNIQUE) [phone] (M) Support Systems: Spouse/significant other Primary decision [...] management will continue to follow. NICOLAS Dewey, LYE PEEL OPERATOR 3:23 PM, 09/24/2023 P: [phone] F: [phone] * Anjali Mclean RN - 09/24/2023 10:32 [...] Pt smiling, declining tylenol and oxy. When curriculum writer returnedto bed pt crying and stating she has moderated pain. Hitting the pillow with her arm. I just have awave of pain. Pt given iv pain meds. Agitated screaming out, putting pillow over head. Offered meds, pt doesn't answer. Pt then stated she was worried about her SO, what he wsa going to eat because she usually cooks for him. Dust Puller spoke with Dr Albert will give tylenol [...] 09/23/2023 8:32 AM CDT Ramona Sanders [id number] DATE OF OPERATIVE PROCEDURE: 09/23/2023 PROCEDURE Removal [...] the recovery room bed in satisfactory condition. [facility] PAC provided assistance with preoperative positioning, prepping, and draping of the patient. The stylist assistant provided vital operative assistance with retraction using instruments best providing the necessary exposure and visualization for the case, manipulation of tissues to achieve hemostasis, suction for visualization and assisted in wound closure. The stylist assistant also helped place instrumentation under direct visualization of the surgeon. Postoperatively they assisted in the transfer of the patient off of the operative table and transition into the post anesthesia care unit with hester sition of care being made to the anesthesiologist. Brock Sawyer MD SPINE SURGEON/ [facility] documented in this encounter Plan of [...] - 100 mg/dL 09/25/2023 11:36 AM CDT [facility] Blood 09/25/2023 7:53 AM CDT 09/25/2023 11:36 AM CDT Brock Sawyer MD LAB POINT OF CARE TEST RESULTS [facility] [address] [id number] * XR C-ARM SPINE (09/23/2023 9:14 AM [...] (New Bag - Provider: Nay Zamudio APRN, GENETIC PHYSICIAN) dicyclomine (BentyL) tablet 20 mg 20 mg, [...] (New Bag - Provider: Nay Zamudio, VERNON, GENETIC PHYSICIAN) PRN Medication Order 09/23/2023 09/24/2023 09/25/2023 saline [...] area documented in this encounter Care Teams Potline Monitor Relationship Specialty Start Date End Date [facility]- [address], [place] [address] PCP - Primary Care Clinic 09/18/22 [place] [address] [place] [address] PCP - General 05/20/23 documented as of this encounter
--- OUTSIDE RECORDS SUMMARY | 2023-12-10 17:39 | XMS_ITS | Encounter Summary ---
Author Organization [facility] Address [address] [place] [address] [place] [address] Care Team Providers Care Curriculum Designer Name Role Phone [facility]- Unava ilable Hayes Mcelroy MD Primary Care Provider [phone] Encounter Details Date Type Department Care Team [...] any time in the past 12 m [facility], were you homeless or living in a assisted (including now)? No 09/23/2023 Sex and Gender Information Value Date Recorded Sex Assigned at Not on file Gender Identity Not on file Sexual Orientation Not on file documented as of this encounter Plan of Treatment Not on file documented as of this encounter Visit Diagnoses Not on filedocumented in this encounter Care Teams Curriculum Designer Relationship Specialty Start Date End Date [facility]- [address] [place] [address] PCP - Primary Care Clinic 09/18/22 [place] [address] [place] [address] PCP - General 05/20/23 documented as of this encounter
--- OUTSIDE RECORDS SUMMARY | 2023-12-10 17:39 | XMS_ITS | Encounter Summary ---
Author Organization [facility] Address [address] [place] [address] [place] [address] Care Team Providers Care Plate Put In Worker Name Role Phone [facility]- Unava ilable Hayes Mcelroy MD Primary Care Provider [phone] Encounter Details Date Type Department Care Team (Latest Contact Info) Description 10/28/2023 Travel Social History Tobacco Use Types Packs/Day Years Used Date Smoking Tobacco: Former Cigarettes Smokeless Tobacco: Never Comments:Quit august 2023 Alcohol Use Standard Drinks/Week Comments Not Currently 0 (1 standard drink = 0.6 oz pur e alcohol) [facility] Utilities Answer Date Recorded In the [...] were you homeless or living in a [facility] (including now)? No 09/23/2023 Sex and Gender Information Value Date Recorded Sex Assigned at Not on file Gender Identity Not on file Sexual Orientation Not on file documented as of this encounter Plan of Treatment Not on file documented as of this encounter Visit Diagnoses Not on filedocumented in this encounter Care Teams Plate Put In Worker Relationship Specialty Start Date End Date [facility]- [address] [place] [address] PCP - Primary Care Clinic 09/18/22 [place] [address] [place] [address] PCP - General 05/20/23 documented as of this encounter
--- OUTSIDE RECORDS SUMMARY | 2023-12-10 17:39 | XMS_ITS | Encounter Summary ---
Author Organization [facility] Address [address] [place] [address] Care Team Providers Care Milled Rubber Tender Name Role Phone [facility]- Unava ilable Hayes Mcelroy MD Primary Care Provider [phone] Reason for Referral * (Routine) - Open Specialty Diagnoses / Procedures Referred By Contac t Referred To Contact Diagnoses S/P lumbar fusion Procedures XR SPINE LUMBAR ROUTINE Brock Sawyer MD [address] [facility] [address] [place] [address] Referral ID Status Reason Start Date Expiration Date Visits Re quested Visits Authorized [id number] Open 12/21/2023 1 1 Reason for Visit * Reason Comments Post op check Encounter Details Date Type Department Care Team (Late st Contact Info) Description 2023 9:40 AM CDT Office Visit [facility] [place] [facility] (an affiliate of [facility]) [address] [place] [address] Brock Sawyer MD [address] [facility] [address] [place] [address] S/P lumbar fusion (Primary Dx) Social History Tobacco Use Types Packs/Day Years Used Date Smoking Tobacco: Former Cigarettes Smokeless Tobacco: Never Tobacco Cessation:Counseling Given: Not Answered Comments:Quit august 2023 Alcohol Use Standard Drinks/Week Comments Not Currently 0 (1 standard drink = 0.6 oz pur e alcohol) [facility] Utilities Answer Date Recorded In [...] any time in the past 12 m [facility], were you homeless or living in a fdc (including now)? No 09/23/2023 Sex and Gender [...] and complete. Brock Sawyer MD SPINE SURGEON/ [facility] * Missy Lofton, FENCE RIDER - 2023 9:40 AM CDT RX Summary Summary Total Prescriptions 44 Total Private Pay 1 Total Prescribers 4 Total Pharmacies 2 Narcotics (excluding Buprenorphine) Current MME/day 180.00 30 Day Avg MME/day 165.00 Current Qty 64 Buprenorphine Current mg/day 0.00 30 Day Avg mg/day 0.00 Current Qty 0 UNINTENTIONAL OVERDOSE RISK SCORE MODEL How should I use this information? ABOVE [id number] NARX SCORES NARCOTICS 533 ACTIVE RX 3 [...] # Dispenser Refill Daily Dose* Pymt Type ACCOUNTS PAYABLE ASSOCIATE 10/29/2023 10/29/2023 10/29/2023 1 Oxycodone Hcl (Ir) 15 Mg Tab 60.00 30 Ca Van 2431891 Sup (6706) 0/0 45.00 [place] 10/29/2023 10/29/2023 10/29/2023 1 Oxycodone Hcl (Ir) 10 Mg Tab 90.00 30 Ca Van 7647248 Sup (6706) 0/0 45.00 [place] 10/29/2023 10/29/2023 10/29/2023 1 Oxycontin Er 20 Mg Tablet 90.00 30 Ca Van 9027340 Sup (6706) 0/090.00 [place] 09/27/2023 09/25/2023 09/27/2023 1 Oxycontin Er 20 Mg Tablet 90.00 30 Ca Van 9313270 Sup (6706) 0/090.00 [place] 09/26/2023 09/25/2023 09/26/2023 1 Oxycodone Hcl (Ir) 10 Mg Tab 90.00 30 Ca Van 9859005 Sup (6706) 0/0 45.00 [place] 09/26/2023 09/25/2023 09/26/2023 1 Oxycodone Hcl (Ir) 15 Mg Tab 60.00 30 Ca Van [id number] Sup (6706) 0/0 45.00 [place] 09/25/2023 09/25/2023 2 Hydromorphone 4 Mg Tablet 40.00 7 [facility] [id number] [place] (1997) 0/0 114.29 [place] 09/25/2023 09/25/2023 2 Oxycontin Er 20 Mg Tablet 10.00 4 [facility] [id number] [place] (1997) 0/0 75.00 [place] 08/29/2023 08/29/2023 08/29/2023 1 Oxycodone Hcl (Ir) 10 Mg Tab 90.00 30 Ca Van [id number] Sup (6706) 0/0 45.00 [place] 08/29/2023 08/29/2023 08/29/2023 1 Oxycodone Hcl (Ir) 15 Mg Tab 60.00 30 Ca Van 4453773 Sup (6706) 0/0 45.00 [place] 08/29/2023 08/29/2023 08/29/2023 1 Oxycontin Er 20 Mg Tablet 90.00 30 Ca Van 6899085 Sup (6706) 0/090.00 [place] 08/20/2023 08/20/2023 08/24/2023 1 Lorazepam 1 Mg Tablet 90.00 30 Pe Buc [id number] Sup (6706) 0/0 3.00 [place] 07/30/2023 07/30/2023 07/30/2023 1 Oxycodone Hcl (Ir) 15 Mg Tab 60.00 30 Ca Van 4320736 Sup (6706) 0/0 45.00 [place] 07/30/2023 07/30/2023 07/30/2023 1 Oxycontin Er 20 Mg Tablet 90.00 30 Ca Van 2672551 Sup (6706) 0/090.00 [place] 07/30/2023 07/30/2023 07/30/2023 1 Oxycodone Hcl (Ir) 10 Mg Tab 90.00 30 Ca Van 4677555 Sup (6706) 0/0 45.00 [place] 07/02/2023 07/02/2023 07/02/2023 1 Oxycontin Er 20 Mg Tablet 90.00 30 Ca Van [id number] Sup (6706) 0/090.00 [place] 07/02/2023 07/02/2023 07/02/2023 1 Oxycodone Hcl (Ir) 10 Mg Tab 90.00 30 Ca Van 4576773 Sup (6706) 0/0 45.00 [place] 07/02/2023 07/02/2023 07/02/2023 1 Oxycodone Hcl (Ir) 15 Mg Tab 60.00 30 Ca Van 2721026 Sup (1416) 0/0 45.00 [place] 06/08/2023 06/02/2023 06/09/2023 1 Oxycontin Er 20 Mg Tablet 69.00 23 Ca Van 2289202 Sup (6706) 0/090.00 [place] 06/03/2023 06/02/2023 06/03/2023 1 Oxycodone Hcl (Ir) 15 Mg Tab 60.00 30 Ca Van 9795995 Sup (6706) 0/0 45.00 [place] 06/02/2023 06/02/2023 06/02/2023 1 Oxycodone Hcl (Ir) 10 Mg Tab 90.00 30 Ca Van 1798018 Sup (6706) 0/0 45.00 [place] 06/02/2023 06/02/2023 06/02/2023 1 Oxycodone Hcl (Ir) 5 Mg Tablet 28.00 5 Ca Van 8600950 Sup (6706)0/0 42.00 [place] 06/02/2023 06/02/2023 06/02/2023 1 Oxycontin Er 20 Mg Tablet 21.00 7 Ca Van 2585840 Sup (6706) 0/0 90.00 [place] 05/03/2023 05/01/2023 05/07/2023 1 Oxycodone Hcl (Ir) 15 Mg Tab 60.00 30 Sa Alvin 1718760 Sup (2366) 0/0 45.00 [place] 05/01/2023 05/01/2023 05/02/2023 1 Oxycodone Hcl (Ir) 10 Mg Tab 90.00 30 Sa Alvin 7040694 Sup (7396) 0/0 45.00 [place] 05/01/2023 05/01/2023 05/02/2023 1 Oxycontin Er 20 Mg Tablet 90.00 30 Sa Alvin 0526337 Sup (6706) 0/090.00 [place] 04/05/2023 04/02/2023 04/06/2023 1 Oxycodone Hcl (Ir) 15 Mg Tab 60.00 30 Ca Van 5576257 Sup (6706) 0/0 45.00 [place] 04/03/2023 04/02/2023 04/03/2023 1 Oxycontin Er 20 Mg Tablet 90.00 30 Ca Van 3817850 Sup (6706) 0/090.00 [place] 04/02/2023 04/02/2023 04/02/2023 1 Oxycodone Hcl (Ir) 10 Mg Tab 90.00 30 Ca Van 0055821 Sup (6256) 0/0 45.00 [place] 03/05/2023 03/03/2023 03/09/2023 1 Oxycodone Hcl (Ir) 15 Mg Tab 60.00 30 Ca Van 1752108 Sup (6706) 0/0 45.00 [place] 03/03/2023 03/03/2023 03/03/2023 1 Oxycontin Er 20 Mg Tablet 90.00 30 Ca Van [id number] Sup (6706) 0/090.00 [place] 03/03/2023 03/03/2023 03/03/2023 1 Oxycodone Hcl (Ir) 10 Mg Tab 90.00 30 Ca Van 5941495 Sup (6706) 0/0 45.00 [place] 02/02/2023 01/28/2023 02/06/2023 1 Oxycodone Hcl (Ir) 15 Mg Tab 60.00 30 Ca Van [id number] Sup (6706) 0/0 45.00 [place] 01/28/2023 01/28/2023 01/30/2023 1 Oxycontin Er 20 Mg Tablet 90.00 30 Ca Van 1145088 Sup (6706) 0/090.00 [place] 01/28/2023 01/28/2023 01/30/2023 1 Lorazepam 1 Mg Tablet 90.00 30 Pe Buc [id number] Sup (6706) 0/0 3.00 [place] 01/28/2023 01/28/2023 01/30/2023 1 Oxycodone Hcl (Ir) 10 Mg Tab 41.00 14 Ca Van 0469263 Sup (6706) 0/0 43.93 [place] 01/28/2023 01/28/2023 01/30/2023 1 Oxycodone Hcl (Ir) 10 Mg Tab 49.00 16 Ca Van 1373661 Sup (6706) 0/0 45.94 [place] 01/03/2023 01/01/2023 01/06/2023 1 Oxycodone Hcl (Ir) 15 Mg Tab 60.00 30 Ca Van 8586691 Sup (6706) 0/0 45.00 [place] 01/01/2023 01/01/2023 01/01/2023 1 Oxycontin Er 20 Mg Tablet 90.00 30 Ca Van 8003090 Sup (6706) 0/090.00 [place] 01/01/2023 01/01/2023 01/01/2023 1 Oxycodone Hcl (Ir) 10 Mg Tab 90.00 30 Ca Van 2598395 Sup (6706) 0/0 45.00 [place] 12/14/2022 12/04/2022 12/14/2022 1 Oxycodone Hcl (Ir) 15 Mg Tab 50.00 25 Ca Van 4268145 Sup (6706) 0/0 45.00 [place] 12/04/2022 12/04/2022 12/04/2022 1 Oxycontin Er 20 Mg Tablet 90.00 30 Ca Van 3573840 Sup (6706) 0/090.00 [place] 12/04/2022 12/04/2022 12/04/2022 1 Oxycodone Hcl (Ir) 15 Mg Tab 10.00 5 Ca Van [id number] Sup (6706) 0/0 45.00 [place] 12/04/2022 12/04/2022 12/04/2022 1 Oxycodone Hcl (Ir) 10 Mg Tab 90.00 30 Ca Van [id number] Sup (6706) 0/0 45.00 [place] Providers Total: 4 Showing 1-4 of 4 Items View 1 of 1 Name Address [facility] Zipcode Phone Cate Thomas [address] [facility] [address] Kiara Álvarez, MSN [address] [facility] [id number] Tasha Hendrickson [address] [facility] [address] Vladimir Paez [address] [address] Showing 1-4 of 4 Items View 1 of 1 Pharmacies Total: 2 Showing 1-2 of 2 Items View 1 of 1 Name Address [facility] State Zipcode Phone [facility] ([phone]) [address] [facility] [address] [facility] (1995) [address] [place] [address] As a proxy delegate, I have queried [...] no Date: Prior Spinal Treatments/ Procedures: 09/23/23 [facility] 01/16/22 [facility] [place] [facility] documented in this encounter Plan of Treatment Scheduled Orders Name Type Priority Associated Diagnoses Orde r Schedule XR SPINE LUMBAR ROUTINE Imaging Routine S/P lumbar fusion Expected: 12/21/2023 (Approximate), Expires: 02/20/2024 documented as of this encounter Visit Diagnoses Diagnosis S/P lumbar fusion- Primary Arthrodesis status documented in this encounter Care Teams Milled Rubber Tender Relationship Specialty Start Date End Date [facility] [place]- [address] [place] [address] PCP - Primary Care Clinic 09/18/22 [place] [address] [place] [address] PCP - General 05/20/23 documented as of this encounter
--- OUTSIDE RECORDS SUMMARY | 2023-12-10 17:39 | XMS_ITS | Encounter Summary ---
Author Organization [facility] Address [address] [place] [address] Care Team Providers Care Material Clerk Name Role Phone [facility]- Unava ilable Hayes Mcelroy MD Primary Care Provider [phone] Reason for Visit * Reason Comments Follow up Recheck: Lumbar Encounter Details Date Type Department Care Team (Late st Contact Info) Description 09/04/2023 9:30 AM CDT Office Visit [facility]) [address] [place] [address] Brock Sawyer MD [address] [facility] [address] [place] [address] Pain due to internal orthopedic prosthetic devices, implants and grafts, initial encounter (HCC) (Primary Dx); Breakdown (mechanical) of internal fixation device of vertebrae, initial encounter (HCC) Social History Tobacco Use Types Packs/Day Years Used Date Smoking Tobacco: Former Cigarettes Smokeless Tobacco: Never [facility] Utilities Answer Date Recorded In the [...] any time in the past 12 m [facility], were you homeless or living in a retirement (including now)? No 09/23/2023 Sex and Gender [...] test/procedure), please call Dr. Sawyer's Care Team [phone]. documented in this encounter Progress Notes * [...] be no expectation for those to give long term care phlebotomist benefit. 2. A very comprehensive discussion was done with this patient in discussing surgical intervention and the gravity of this type of intervention. A shared decision-making approach was utilized. 3. Patient was specifically instructed on pre-operative and scheduling protocol and was given the appropriate contact information for the production planner scheduler and the general information line. RISKS: Lumbar [...] and complete. Brock Sawyer MD SPINE SURGEON/ [facility] * Katelyn Jaramillo - 09/04/2023 9:30 [...] Rayus 08/18/23 Injections: (R) L4-5 HWR Location: [facility] 05/06/23 Relief: None Physical [...] (HCC) documented in this encounter Care Teams Material Clerk Relationship Specialty Start Date End Date [facility]- [address] [place] [address] PCP - Primary Care Clinic 09/18/22 [place] [address] [place] [address] PCP - General 05/20/23 documented as of this encounter
--- OUTSIDE RECORDS SUMMARY | 2023-12-10 17:39 | XMS_ITS | Encounter Summary ---
Author Organization [facility] Address [address] [place] [address] Care Team Providers Care Photo Technologist Name Role Phone [facility][Note 3]- Unava ilable Hayes Mcelroy MD Primary Care Provider [phone] Reason for Visit * Inpatient Admission (Routine) Specialty Diagnoses / Procedures Referred By Contac t Referred To Contact Diagnoses Pain due to bilateral hip joint prostheses, initial encounter (HCC) Mechanical breakdown of internal fixation device of vertebrae, initial encounter ([facility]) Pain due to bilateral hip joint prostheses, initial encounter [T84.84XA, Z96.643] Mechanical breakdown of internal fixation device of vertebrae, initial encounter ([facility]) [T84.216A] Procedures REMOVE SPINE FIX DEV,POST SGM* BILATERAL HARDWARE REMOVAL L2- PELIVS WITH EXPLORATION OF L3-4 FUSION Referral ID Status Reason Start Date Expiration Date Visits Re quested Visits Authorized [id number] 1 1 Encounter Details Date Type Department Care Team (Late st Contact Info) Description 09/23/2023 8:00 AM CDT - 09/23/2023 9:35 AM CDT Surgery [facility] Operating Room [address] [facility] [place] [address] Brock Sawyer MD [address] [place] [address] [place] [address] BILATERAL HARDWARE REMOVAL L2- PELIVS WITH [...] drink = 0.6 oz pur e alcohol) [facility] Utilities Answer Date Recorded In the [...] internal fixation device of vertebrae, initial encounter ([facility]) [T84.216A] Principal Problem: Chronic pain [...] in november.* naloxone (NARCAN) 4 mg/actuation Nasal [place] Administer one dose (4 mg) into nostril [...] re-establish your bowel program. You may take uwnp-xed-cabcgtj stool medications as directed by the package [...] your pain clinic. FOLLOW-UP: She should see [facility] for first recheck in 2-4 weeks. Call for appointment if one not already in place. [phone] Sawyer [phone] Total time spent for discharge on date of discharge: 20 minutes. Vladimir Paez PA-C [facility] documented in this encounter [...] 3 09/25/2023 naloxone (NARCAN) 4 mg/actuation Nasal [place] Administer one dose (4 mg) into nostril [...] as of this encounter Progress Notes * Rkia Lake RN - 09/25/2023 11:02 AM CDT Ramona Benavides Marilyn [id number] [id number] P: Discharge A: Discharged ambulatory to home [...] with metformin, chronic lower back pain on AIR SEALING TECHNICIAN narcotics, hyperlipidemia managed with Zocor who had [...] exploring L3-4 Fusion and replacement of rods L3-G4thdxt Routine postop cares including DVT prophylaxis pain management, drain management,ambulation per NSGYteam T2DM On AIR SEALING TECHNICIAN metformin. Hold for now Very low-dose SSI with hypoglycemia protocol Regular diet at patient request Depression Resume AIR SEALING TECHNICIAN Wellbutrin and Cymbalta Chronic pain syndrome 2/2 LBP On AIR SEALING TECHNICIAN opoid including Cymbalta. Primary team/NSGY managing pain [...] hours 20 mL/24 hours Vladimir Paez PA-C [facility] * Waqas Rodriguez RN [...] with metformin, chronic lower back pain on AIR SEALING TECHNICIAN narcotics, hyperlipidemia managed with Zocor who had [...] exploring L3-4 Fusion and replacement of rods L3-W6nboom Routine postop cares including DVT prophylaxis pain management, drain management,ambulation per NSGYteam T2DM On AIR SEALING TECHNICIAN metformin. Hold for now Very low-dose SSI with hypoglycemia protocol Regular diet at patient request Depression Resume AIR SEALING TECHNICIAN Wellbutrin and Cymbalta Chronic pain syndrome 2/2 LBP On AIR SEALING TECHNICIAN opoid including Cymbalta. Primary team/NSGY managing pain [...] for: POTASSIUM, SODIUM, WBC Fabiola Zavala PA-C [facility] * Soco Paez RN [...] call for help, name of assigned care director rn, PatientInformation booklet, initial physician orders, hourly rounding [...] DM II, chronic lower back pain on AIR SEALING TECHNICIAN narcotics, HLD Patient Seen In: Room Family/Caregiver [...] most limited by worsening pain limiting progression [facility] AM-PAC 6-Clicks Turning over in bed [...] CONSULT NOTE Patient Name: Ramona Sanders Address: [address] [place] [address] [place] [address] Age:62 y.o. Sex: female Admission Date/Time: 09/23/2023 5:55 AM Requesting Physician: Brock Sawyer MD [facility] Attending Physician: Brock Sawyer MD I [...] with metformin, chronic lower back pain on AIR SEALING TECHNICIAN narcotics, hyperlipidemia managed with Zocor. At bedside [...] Other Skin irritation around eyes Baclofen Nausea Zgyyggrlbyma-Mdyjsxp-Rwypwuy Compazine [Prochlorperazine] Other Tongue in and out [...] with metformin, chronic lower back pain on AIR SEALING TECHNICIAN narcotics, hyperlipidemia managed with Zocor. Principal Problem: Chronic pain disorder S/p bilateral removal of hardware L2-Pelvis and exploring L3-4 Fusion and replacement of rods L3-W8ynzww Routine postop cares including DVT prophylaxis pain management, ambulation per NSGYteam T2DM On AIR SEALING TECHNICIAN metformin. Hold for now Very low-dose SSI with hypoglycemia protocol Depression Resume AIR SEALING TECHNICIAN Wellbutrin and Cymbalta Chronic pain syndrome 2/2 LBP On AIR SEALING TECHNICIAN opoid including Cymbalta. Primary team/NSGY managing pain [...] Outcome: Met this shift Flowsheets (Taken 09/24/2023 1439) Environmental Safety Interventions: Standard Interventions in Place [...] internal fixation device of vertebrae, initial encounter ([facility]) [T84.216A] Chronic pain disorder [G89.4] Admitted from: Home Prior: Living Arrangements: Spouse/significant other Jerry Caruso (SIGO) [phone] (M) Support Systems: Spouse/significant other Primary decision [...] will continue to follow. Della Pacheco, NICOLAS, CAREER GUIDANCE TECHNICIAN 3:23 PM, 09/24/2023 P: [phone] F: [phone] * Anjali Mclean RN - 09/24/2023 10:32 [...] Pt smiling, declining tylenol and oxy. When casualty underwriter returnedto bed pt crying and stating she has moderated pain. Hitting the pillow with her arm. I just have awave of pain. Pt given iv pain meds. Agitated screaming out, putting pillow over head. Offered meds, pt doesn't answer. Pt then stated she was worried about her SO, what he wsa going to eat because she usually cooks for him. Journeyman Pipefitter spoke with Dr Albert will give tylenol [...] 09/23/2023 8:32 AM CDT Ramona Sanders [id number] DATE OF OPERATIVE PROCEDURE: 09/23/2023 PROCEDURE Removal [...] the recovery room bed in satisfactory condition. [facility] PAC provided assistance with preoperative positioning, prepping, and draping of the patient. The insurance account assistant provided vital operative assistance with retraction using instruments best providing the necessary exposure and visualization for the case, manipulation of tissues to achieve hemostasis, suction for visualization and assisted in wound closure. The insurance account assistant also helped place instrumentation under direct visualization of the surgeon. Postoperatively they assisted in the transfer of the patient off of the operative table and transition into the post anesthesia care unit with hester sition of care being made to the anesthesiologist. Brock Sawyer MD SPINE SURGEON/ [facility] documented in this encounter Plan of [...] of10 resultswithin the time period is included. [facility] Signature GLUCOSE WB METER 127(H) 60 - 100 mg/dL 09/25/2023 11:36 AM CDT [facility] Blood 09/25/2023 7:53 AM CDT 09/25/2023 11:36 AM CDT Brock Sawyer MD LAB POINT OF CARE TEST RESULTS [facility] [address] [address] * XR C-ARM SPINE (09/23/2023 9:14 AM [...] (New Bag - Provider: Nay Zamudio APRN, YARN MERCERIZER OPERATOR HELPER) dicyclomine (BentyL) tablet 20 mg 20 mg, [...] Mclean RN) 804 (Given - Provider: Rika Lake, JENNA) gabapentin [...] Anjali Mclean RN)220 (Given - Provider: Sole Aguilrea RN) 0804 (Given - Provider: Rika Lake [...] 0814 (New Bag - Provider: Nay Zamudio, HYDRAULIC JACK ADJUSTER, [facility]) PRN Medication Order 09/23/2023 09/24/2023 09/25/2023 saline [...] area documented in this encounter Care Teams Photo Technologist Relationship Specialty Start Date End Date [facility][Note 3]- [address], [place] [address] PCP - Primary Care Clinic 09/18/22 [place] [address] [place] [address] PCP - General 05/20/23 documented as of this encounter
--- OUTSIDE RECORDS SUMMARY | 2023-12-10 17:39 | XMS_ITS | Referral Summary ---
Author Organization [facility] Address [address] [place] [address] Care Team Providers Care Dynamite Shooter Name Role Phone [facility]- Unava ilable Hayes Mcelroy MD Primary Care Provider [phone] Encounters Date Type Department Care Team Description 2023 Travel 2023 9:40 AM CDT Office Visit [facility] [address] [place] [phone] Brock Sawyer MD S/P lumbar fusion (Primary Dx) 10/28/2023 Travel 10/28/2023 9:15 AM CDT Office Visit [facility] [address] [place] [phone] Jg Ivory PA-C Postoperative state (Primary Dx); S/P lumbar fusion; Lumbar spine pain 09/23/2023 5:55 AM CDT - 09/25/2023 11:44 AM CDT Hospital Encounter [facility] [place] [address] SAHARA RIVERA [id number] Brock Sawyer MD Chronic pain disorder Discharge Disposition: Returning Home/Self Care 09/23/2023 8:00 AM CDT - 09/23/2023 9:35 AM CDT Surgery [facility] Operating Room [address] [place] [id number] Brock Sawyer MD BILATERAL HARDWARE REMOVAL L2- PELIVS WITH EXPLORATION OF L3-4 FUSION AND REPLACEMENT OF RODS L3-4 09/22/2023 Travel from Last 3 Months Allergies Active Allergy Reactions Criticality Noted Date Comments Atorvastatin Other 09/30/2019 Skin irritation around eyes Baclofen Nausea Low 12/23/2012 Lfhtdrkmnlay-Pcqafxk-Gvokrz e Low 12/23/2012 Cyclobenzaprine Low 04/24/2011 Other [...] 10/16/2022 Active naloxone (NARCAN) 4 mg/actuation Nasal Morton Administer one dose (4 mg) into nostril [...] (11/11/2022): Added automatically from request for surgery [id number] Chronic anemia 08/22/2021 Type 2 diabetes mellitus [...] drink = 0.6 oz pur e alcohol) [facility] Utilities Answer Date Recorded In [...] [facility] the [facility] were you homeless or living in [...] on file Medical Devices Implanted Type Area Blasting Entryman Device Identifier Shelf Expiration Date Model / Serial / Lot Beltran 50mm 5.5mm Ccm Curv - [id number] Implanted:Qty : 1 on 09/23/2023 by Brock Sawyer MD at [facility] Beltran N/A: Spine Lumbar [employer] [id number] / / Beltran 60mm 5.5mm Ccm Curv - [id number] Implanted:Qty : 1 on 09/23/2023 by Brock Sawyer MD at [facility] Beltran N/A: Spine Lumbar [employer] [id number] / / Set Screw Solera Brk Off - [id number] Implanted:Qty : 4 on 09/23/2023 by Brock Sawyer MD at [facility] Screw/An chor N/A: Spine Lumbar [employer] [id number] / / Procedures Procedure Name Priority Date/Time [...] - 100 mg/dL 09/25/2023 11:36 AM CDT [facility] Blood 09/25/2023 7:53 AM CDT 09/25/2023 11:36 AM CDT Brock Sawyer MD LAB POINT OF CARE TEST RESULTS [facility] [address] [id number] * XR C-ARM SPINE (09/23/2023 9:14 AM [...] Advance Directives For more information, please contact: [phone] * Full Code (Latest Code Status on File) Date Activated Date Inactivated Comments 09/24/2023 3:26 PM 09/25/2023 5:49 PM Question Answer Comments How was code status determined? Patient * Full Code Date Activated Date Inactivated Comments 09/23/2023 5:59 AM 09/23/2023 9:48 AM Question Answer Comments How was code status determined? Previous Documen [facility] Care Teams Dynamite Shooter Relationship Specialty Start Date End Date [facility]- [address] [place] [address] PCP - Primary Care Clinic 09/18/22 [place] [address] [place] [address] PCP - General 05/20/23
--- OUTSIDE RECORDS SUMMARY | 2023-12-10 17:39 | XMS_ITS | Encounter Summary ---
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 [facility] Creatinine 0.66 0.50 - 1.00 mg/dL [facility] Calcium 8.5(L) 8.8 - 10.2 mg/dL [facility] AnGap 8 8 - 16 mmol/L [facility] eGFR (2020 CKD-EPI) 100 >=60 ml/min/1.7 3m2 [facility] Comment: The estimated glomerular filtration rate (eGFR) was calculated using the CKD-EPI 2020 creatinine equation, which does not include race as a factor. This equation is validated in individuals 18 years of age and older, and eGFR is normalized to a body surface area of 1.73m^2. Blood 12/03/2023 4:29 AM CDT 12/03/2023 5:58 AM CDT Kory Kimball MD LABORATORY [facility] [address] [address] * (ABNORMAL) CBC WITH PLTS/AUTO DIFF (12/03/2023 4:29 AM CDT) WBC 5.82 4.00 - 10.00 k/cmm [facility] RBC 3.61(L) 3.90 - 5.20 m/cmm [facility] Hgb 9.0(L) 11.5 - 15.7 g/dL [facility] Hematocrit 29.6(L) 34.0 - 45.0 % [facility] MCV 82.0 80.0 - 100.0 fL [facility] MCH 24.9(L) 25.0 - 32.0 pg [facility] MCHC 30.4(L) 31.0 - 36.0 g/dL [facility] RDW 17.2(H) 11.5 - 14.5 % [facility] Plt 192 150 - 400 k/cmm [facility] MPV 9.4 6.5 - 12.5 fL [facility] Automated Abs Neutrophil 3.14 1.70 - 6.50 k/cmm [facility] Comment:Preliminary ANC, Fin al Result to Follow Abs Immature Granulocyte 0.02 0.00 - 0.09 k/cmm [facility] Comment:The Immature Granulo cyte Absolute count contains metamyelocytes and myelocytes. Abs Neutrophil 3.14 1.70 - 6.50 k/cmm [facility] Abs Lymphocyte 1.89 0.80 - 4.00 k/cmm [facility] Abs Monocyte 0.47 0.20 - 1.00 k/cmm [facility] Abs Eosinophil 0.28 0.00 - 0.60 k/cmm [facility] Abs Basophil 0.02 0.00 - 0.20 k/cmm [facility] Blood 12/03/2023 4:29 AM CDT 12/03/2023 5:58 AM CDT Kory Kimball MD LABORATORY [facility] [address] [address] * (ABNORMAL) PANEL BASIC METABOLIC (BMP) (12/02/2023 4:42 AM CDT) AnGap 9 8 - 16 mmol/L [facility] Creatinine 0.73 0.50 - 1.00 mg/dL [facility] Calcium 8.5(L) 8.8 - 10.2 mg/dL [facility] eGFR (2020 CKD-EPI) 94 >=60 ml/min/1.7 3m2 [facility] Comment: The estimated glomerular filtration rate (eGFR) was calculated using the CKD-EPI 2020 creatinine equation, which does not include race as a factor. This equation is validated in individuals 18 years of age and older, and eGFR is normalized to a body surface area of 1.73m^2. BUN 11 8 - 23 mg/dL [facility] Sodium 141 135 - 148 mmol/L [facility] CO2 24 22 - 30 mmol/L [facility] Glucose 120(H) 70 - 100 mg/dL [facility] Chloride 108 92 - 108 mmol/L [facility] Potassium 3.5 3.5 - 5.3 mmol/L [facility] Blood 12/02/2023 4:42 AM CDT 12/02/2023 5:19 AM CDT Joaquin Snow MD LABORATORY [facility] [address] [address] * (ABNORMAL) CBC WITH PLTS/AUTO DIFF (12/02/2023 4:42 AM CDT) WBC 6.95 4.00 - 10.00 k/cmm [facility] RBC 3.71(L) 3.90 - 5.20 m/cmm [facility] Hgb 9.4(L) 11.5 - 15.7 g/dL [facility] Hematocrit 31.1(L) 34.0 - 45.0 % [facility] MCV 83.8 80.0 - 100.0 fL [facility] MCH 25.3 25.0 - 32.0 pg [facility] MCHC 30.2(L) 31.0 - 36.0 g/dL [facility] RDW 17.0(H) 11.5 - 14.5 % [facility] Plt 197 150 - 400 k/cmm [facility] MPV 9.0 6.5 - 12.5 fL [facility] NRBC 0.3(H) 0.0 - 0.0 /100WBC [facility] Automated Abs Neutrophil 3.98 1.70 - 6.50 k/cmm [facility] Comment:Preliminary ANC, Fin al Result to Follow Abs Immature Granulocyte 0.03 0.00 - 0.09 k/cmm [facility] Comment:The Immature Granulo cyte Absolute count contains metamyelocytes and myelocytes. Abs Neutrophil 3.98 1.70 - 6.50 k/cmm [facility] Abs Lymphocyte 2.25 0.80 - 4.00 k/cmm [facility] Abs Monocyte 0.45 0.20 - 1.00 k/cmm [facility] Abs Eosinophil 0.21 0.00 - 0.60 k/cmm [facility] Abs Basophil 0.03 0.00 - 0.20 k/cmm [facility] Blood 12/02/2023 4:42 AM CDT 12/02/2023 5:19 AM CDT Joaquin Snow MD LABORATORY Performing Organization Address [facility] Co de Phone Number [address] [address] * VITAMIN N20-NJENYN TO MMA (12/02/2023 4:42 AM CDT) B12 340 211 - 946 pg/mL [facility] Blood 12/02/2023 4:42 AM CDT 12/02/2023 5:19 AM CDT Joaquin Snow MD LABORATORY Performing Organization Address [facility] de Phone Number [address] [address] * (ABNORMAL) TRANSFERRIN (INCLUDES TIBC) (12/02/2023 4:42 AM CDT) Transferrin 230 200 - 360 mg/dL [facility] IBC 343 298 - 536 mcg/dL [facility] Iron Saturation Percent 6(L) 20 - 50 % [facility] Blood 12/02/2023 4:42 AM CDT 12/02/2023 5:19 AM CDT Joaquin Snow MD LABORATORY Performing Organization Address City/[facility] Co de Phone Number [address] [address] * (ABNORMAL) IRON (12/02/2023 4:42 AM CDT) Iron 19(L) 35 - 145 mcg/dL [facility] Blood 12/02/2023 4:42 AM CDT 12/02/2023 5:19 AM CDT Joaquin Snow MD LABORATORY Performing Organization Address City/[facility]/ZIP Co de Phone Number [facility] [address] [place] [address] * FERRITIN (12/02/2023 4:42 AM CDT) Ferritin 18.0 13.0 - 150.0 ng/mL [facility] Comment: Test Performed by: [facility] [address] [place] [id number] Blood 12/02/2023 4:42 AM CDT 12/02/2023 5:19 AM CDT Joaquin Snow MD LABORATORY Performing Organization Address [facility] Co de Phone Number [facility] [address] [address] * XR SHOULDER RT 2/3V AP/GRASH/Y* (12/01/2023 [...] POC Glucose 108(H) 70 - 100 mg/dL [facility] Blood 12/01/2023 9:07 AM CDT Gonzalez Gomez MD LABORATOR Y [facility] [address] [place] [address], * (ABNORMAL) POC GLUCOSE (12/01/2023 6:22 AM CDT) POC Glucose 101(H) 70 - 100 mg/dL [facility] Blood 12/01/2023 6:22 AM CDT Gonzalez Gomez MD LABORATOR Y [facility] [address] [place] [address], * CT LOW EXTREMITY LEFT NO IV [...] 390 ms QTC Interval 434 ms P [place] 78 QRS [place] 77 T Wave [place] 76 Narrative Procedure Note Greg Posey MD - 12/01/2023 IMPRESSION SINUS RHYTHM POSSIBLE RIGHT ATRIAL ENLARGEMENT [0.25mV P-WAVE] BORDERLINE ECG P-R Interval 176 ms QRS Interval 95 ms QT Interval 390 ms QTC Interval 434 ms P [place] 78 QRS [place] 77 T Wave [place] 76 Jian Howell MD EKG [facility] CVIS EKG ORDERS * CK, TOTAL (11/30/2023 7:02 PM CDT) Pathologist [facility] CK na 26 - 192 [facility] Comment:CK = 82. Accuracy of result suspect due to hemolysis. Blood 11/30/2023 7:02 PM CDT 11/30/2023 7:54 PM CDT Gonzalez Gomez MD LABORATOR Y Performing Organization Address [facility] Co de Phone Number [facility] [address] [address] * EXTRA TUBE - SST (11/30/2023 7:02 PM CDT) [facility] SST TUBE Stored [facility] Comment:SST tubes (Serum Sep arator) are stored in the lab for 3 days from the collection date. Blood 11/30/2023 7:02 PM CDT 11/30/2023 7:09 PM CDT Jian Howell MD LABORATORY Performing Organization Address [facility] Co de Phone Number [facility] [address] [address] * HS TROPONIN (11/30/2023 7:02 PM CDT) [facility] HS Troponin I <3 <=14 ng/L [facility] Blood 11/30/2023 7:02 PM CDT 11/30/2023 7:08 PM CDT Narrative [facility] - 11/30/2023 7:34 PM CDT First Occurrence of the Troponin order is to be drawn Stat by Nursing staff on the unit. Jian Howell MD LABORATORY Performing Organization Address [facility] Co de Phone Number [address] [address] * ETHANOL (ETOH) LEVEL, BLOOD (11/30/2023 7:02 PM CDT) [facility] Ethanol Negative Negative g/dL [facility] Blood 11/30/2023 7:02 PM CDT 11/30/2023 7:17 PM CDT Jian Howell MD LABORATORY Performing Organization Address City/[facility] Co de Phone Number [facility] [address] [address] * PTT (APTT) (11/30/2023 7:02 PM CDT) APTT 31.0 25.0 - 37.0 sec [facility] Blood 11/30/2023 7:02 PM CDT 11/30/2023 7:17 PM CDT Jian Howell MD LABORATORY Performing Organization Address [facility] Co de Phone Number [facility] [address] [address] * ED INR (11/30/2023 7:02 PM CDT) Pathologist [facility] ED INR 1.0 0.8 - 1.1 [facility] Comment: Warfarin Therapeutic Range: Standard Intensity: 2.0 - 3.0 High Intensity: 2.5 - 3.5 This is a rapid INR screening test which uses whole blood; results may infrequently differ from plasma INR results. If medication adjustments/dosing are required a PT/INR test ([id number]) should be ordered and performed in the main laboratory. Blood 11/30/2023 7:02 PM CDT 11/30/2023 7:08 PM CDT Jian Howell MD LABORATORY Performing Organization Address [facility] Co de Phone Number [facility] [address] [address] * PRECAUTIONARY TUBE (11/30/2023 7:02 PM CDT) Prec Tube Precautionary Blood Bank Specimen Received. [facility] Blood 11/30/2023 7:02 PM CDT 11/30/2023 7:17 PM CDT Jian Howell MD LAB TRANSFUSION SERV ICES [facility] [address] [address] * LACTATE (LACTIC ACID) (11/30/2023 7:02 PM CDT) Pathologist [facility] Lactate 1.5 0.7 - 2.1 mmol/L [facility] Blood 11/30/2023 7:02 PM CDT 11/30/2023 7:09 PM CDT Narrative [facility] - 11/30/2023 7:16 PM CDT Send specimen on ice! Jian Howell MD LABORATORY Performing Organization Address [facility] Co de Phone Number [facility] [address] [address] * FIBRINOGEN (11/30/2023 7:02 PM CDT) [facility] Fibrinogen 222 200 - 400 mg/dL [facility] Blood 11/30/2023 7:02 PM CDT 11/30/2023 7:17 PM CDT Jian Howell MD LABORATORY Performing Organization Address [facility] Co de Phone Number [facility] [address] [address] * (ABNORMAL) PANEL HEPATIC FUNCTION (11/30/2023 7:02 PM CDT) [facility] Total Protein 6.0(L) 6.4 - 8.3 g/dL [facility] Albumin 4.2 3.8 - 5.1 g/dL [facility] Bili Total <0.2 <=1.2 mg/dL [facility] Bili Direct na <=0.3 mg/dL [facility] Comment:BILID < 0.2. Accurac y of result suspect due to hemolysis. Alk Phos 104 35 - 104 IU/L [facility] Comment:No reference range e stablished for patients <18 years old. ALT (SGPT) na <=33 IU/L [facility] Comment:ALT = 8. Accuracy of result suspect due to hemolysis. AST(SGOT) na 5 - 40 IU/L [facility] Comment:AST = 20. Accuracy o f result suspect due to hemolysis. Blood 11/30/2023 7:02 PM CDT 11/30/2023 7:17 PM CDT Jian Howell MD LABORATORY Performing Organization Address City/[facility]/ZIP Co de Phone Number [facility] [place] [address] * (ABNORMAL) ED HEMOGLOBIN TOTAL (ED ONLY) (11/30/2023 7:02 PM CDT) Hgb 10.2(L) 11.5 - 15.7 g/dL [facility] Blood 11/30/2023 7:02 PM CDT 11/30/2023 7:09 PM CDT Jian Howell MD LABORATORY Performing Organization Address City/[facility] Co de Phone Number [facility] [place] [address] * (ABNORMAL) ED CHEMISTRY LABS(NA,K,CL,CO2,GLU,CREAT,CA-IONIZED,ANION GAP) (11/30/2023 7:02 PM CDT) Sodium 140 135 - 148 mmol/L [facility] Chloride 111(H) 92 - 108 mmol/L [facility] AnGap 7(L) 8 - 16 mmol/L [facility] Glucose 99 70 - 100 mg/dL [facility] ICA, Actual 4.40 4.40 - 5.20 mg/dL [facility] ICA, pH Corrected 4.50 4.40 - 5.20 mg/dL [facility] Creatinine 0.95 0.50 - 1.00 mg/dL [facility] BICARB 22 22 - 26 mEq/L [facility] eGFR (2020 CKD-EPI) 68 >=60 ml/min/1.7 3m2 [facility] Comment: The estimated glomerular filtration rate (eGFR) was calculated using the CKD-EPI 2020 creatinine equation, which does not include race as a factor. This equation is validated in individuals 18 years of age and older, and eGFR is normalized to a body surface area of 1.73m^2. Potassium 4.5 3.5 - 5.3 mmol/L [facility] Blood 11/30/2023 7:02 PM CDT 11/30/2023 7:09 PM CDT Jian Howell MD LABORATORY [facility] [address] [place] [address] * (ABNORMAL) CBC WITH PLTS/AUTO DIFF (11/30/2023 7:02 PM CDT) WBC 9.81 4.00 - 10.00 k/cmm [facility] RBC 3.98 3.90 - 5.20 m/cmm [facility] Hgb 10.1(L) 11.5 - 15.7 g/dL [facility] Hematocrit 32.6(L) 34.0 - 45.0 % [facility] MCV 81.9 80.0 - 100.0 fL [facility] MCH 25.4 25.0 - 32.0 pg [facility] MCHC 31.0 31.0 - 36.0 g/dL [facility] RDW 16.9(H) 11.5 - 14.5 % [facility] Plt 233 150 - 400 k/cmm [facility] MPV 9.1 6.5 - 12.5 fL [facility] Automated Abs Neutrophil 6.22 1.70 - 6.50 k/cmm [facility] Comment:Preliminary ANC, Fin al Result to Follow Abs Immature Granulocyte 0.03 0.00 - 0.09 k/cmm [facility] Comment:The Immature Granulo cyte Absolute count contains metamyelocytes and myelocytes. Abs Neutrophil 6.22 1.70 - 6.50 k/cmm [facility] Abs Lymphocyte 2.73 0.80 - 4.00 k/cmm [facility] Abs Monocyte 0.49 0.20 - 1.00 k/cmm [facility] Abs Eosinophil 0.30 0.00 - 0.60 k/cmm [facility] Abs Basophil 0.04 0.00 - 0.20 k/cmm [facility] Blood 11/30/2023 7:02 PM CDT 11/30/2023 7:16 PM CDT Jian Howell MD LABORATORY Performing Organization Address [facility] Co de Phone Number [facility] [address] [address] * (ABNORMAL) BLOOD GASES (11/30/2023 7:02 PM CDT) PH Juvenal 7.40 7.32 - 7.42 [facility] PCO2 Juvenal 38(L) 41 - 51 mmHG [facility] PO2 Juvenal 39 25 - 40 mmHG [facility] Bicarb Juvenal 23(L) 24 - 28 mEq/L [facility] O2 Sat Juvenal 73 % [facility] Base Exc Juvenal -1.2 -10.0 - 2.0 mmol/L [facility] Blood Venous 11/30/2023 7:02 PM CDT 11/30/2023 7:09 PM CDT Jian Howell MD LABORATORY Performing Organization Address [facility] Co de Phone Number [facility] [address] [address] * ED US CRITICAL CARE (11/30/2023 6:59 [...] (Infusion completed - Provider: Kobi Dean RN) [facility] REC REVIEW BY PHARMACY(Linked Group 2) Discharge [...] IVAN Esquivel)0857 (Dual Sign-Off - Provider: Luda Perez RN) 0846 (Given - Provider: IVAN Esquivel)0907 [...] IVAN Esquivel)0857 (Dual Sign-Off - Provider: Luda Perez RN) 0848 (Given - Provider: IVAN Esquivel)0907 (Dual [...] (Dual Sign-Off - Provider: Luda Perez, JENNA) pramipexole (MIRAPEX) tablet 0.5 mg 0.5 [...] Patient refused) 184 (Given - Provider: Yuliana Carpenter, JENNA) simvastatin (ZOCOR) tablet 20 mg 20 mg, Oral, DAILY, First dose on Fri12/01/23 at 1400, Until Discontinued 163 (Given - Provider: Akash Bradford RN) 0838 (Given - Provider: IVAN Esquivel)0857 (Dual Sign-Off - Provider: Luda Perez, RN) 0846 (Given - Provider: IVAN Esquivel)0909 (Dual Sign-Off - Provider: Luda Perez, RN) VTE prophylaxis contraindicated(Linked Group 3) Contraindication Reason: [...] Carpenter RN) 0917 (Given - Provider: Claudia Shane, JENNA) oxyCODONE (ROXICODONE) tablet 15 mg (CANCELED) 15 mg, Oral, Q4H PRN, Starting on Fri12/01/23 at 0429, Until Fri12/02/23 at 0953, Moderate Pain (Use First) 1354 (Not Given (removes Due time) - Provider: Orin Solano RN - Reason: Patient refused)1624 (Given - Provider: Akash Bradford RN)2144 (Given - Provider: Kobi Dean, JENNA) sennosides (SENOKOT) tablet 8.6 mg 8.6 mg, [...] Procedure documented in this encounter Care Teams Superintendent Tests Relationship Specialty Start Date End Date [facility], [facility] [place] [address] PCP - General 03/18/09 documented as of this encounter
--- OUTSIDE RECORDS SUMMARY | 2023-12-10 17:39 | XMS_ITS | Encounter Summary ---
Author Organization [facility] Address [address] [place] [address] [place] [address] Care Team Providers Care Menswear Salesperson Name Role Phone [facility] [place][Note 2]- Unava ilable Hayes Mcelroy MD Primary Care Provider [phone] Encounter Details Date Type Department Care Team (Latest Contact Info) Description 2023 Travel Social History Tobacco Use Types Packs/Day Years Used Date Smoking Tobacco: Former Cigarettes Smokeless Tobacco: Never Comments:Quit august 2023 Alcohol Use Standard Drinks/Week Comments Not Currently 0 (1 standard drink = 0.6 oz pur e alcohol) [facility] Utilities Answer Date Recorded In [...] were you homeless or living in a prison (including now)? No 09/23/2023 Sex and Gender Information Value Date Recorded Sex Assigned at Not on file Gender Identity Not on file Sexual Orientation Not on file documented as of this encounter Plan of Treatment Not on file documented as of this encounter Visit Diagnoses Not on filedocumented in this encounter Care Teams Menswear Salesperson Relationship Specialty Start Date End Date [facility] [place][Note 2]- [address] [place] [address] PCP - Primary Care Clinic 09/18/22 [place] [address] [place] [address] PCP - General 05/20/23 documented as of this encounter
--- OUTSIDE RECORDS SUMMARY | 2023-12-10 17:39 | XMS_ITS | Clinical Summary ---
Author Organization [facility] Address [address] [place] [address] [place] [address] Care Team Providers Care Aircraft Skin Burnisher Name Role Phone [facility]- Unava ilable Hayes Mcelroy MD Primary Care Provider [phone] Allergies Active Allergy Reactions Criticality Noted Date Comments Atorvastatin Other 09/30/2019 Skin irritation around eyes Baclofen Nausea Low 12/23/2012 Vqkudcytsiln-Unxxbkj-Nnolab e Low 12/23/2012 Cyclobenzaprine Low 04/24/2011 Other [...] 10/16/2022 Active naloxone (NARCAN) 4 mg/actuation Nasal [place] Administer one dose (4 mg) into nostril [...] (11/11/2022): Added automatically from request for surgery [id number] Chronic anemia 08/22/2021 Type 2 diabetes mellitus [...] Description 2023 9:40 AM CDT Office Visit [facility] (an affiliate of [facility]) [address] [facility] [address] [place] [phone] Brock Sawyer MD S/P lumbar fusion (Primary Dx) 2023 Travel 10/28/2023 9:15 AM CDT Office Visit [facility] (an affiliate of [facility]) [address] [facility] [address] [place] [phone] Jg Ivory PA-C Postoperative state (Primary Dx); S/P lumbar fusion; Lumbar spine pain 10/28/2023 Travel 09/23/2023 8:00 AM CDT - 09/23/2023 9:35 AM CDT Surgery [facility] Operating Room [address] [place] [address] [place] [address] Brock Sawyer MD BILATERAL HARDWARE REMOVAL L2- PELIVS WITH EXPLORATION OF L3-4 FUSION AND REPLACEMENT OF RODS L3-4 09/23/2023 5:55 AM CDT - 09/25/2023 11:44 AM CDT Hospital Encounter [facility] [place] [address] [place] [address] Brock Sawyer MD Chronic pain disorder Discharge Disposition: Returning Home/Self Care 09/22/2023 Travel from Last 3 Months Social History Tobacco Use Types Packs/Day Years Used Date Smoking Tobacco: Former Cigarettes Smokeless Tobacco: Never Tobacco Cessation:Counseling Given: Not Answered Comments:Quit august 2023 Alcohol Use Standard Drinks/Week Comments Not Currently 0 (1 standard drink = 0.6 oz pur e alcohol) [facility] Utilities Answer Date Recorded [...] any time in the past 12 m [facility], were you homeless or living in [...] 10/26/2018, 08/17/2018 Medical Devices Implanted Type Area International Affairs Vice President Device Identifier Shelf Expiration Date Model / Serial / Lot Beltran 50mm 5.5mm Ccm Curv - [id number] Implanted:Qty : 1 on 09/23/2023 by Brock Sawyer MD at [facility] Beltran N/A: Spine Lumbar Medtronic Inc [id number] / / Beltran 60mm 5.5mm Ccm Curv - [id number] Implanted:Qty : 1 on 09/23/2023 by Brock Sawyer MD at [facility] Beltran N/A: Spine Lumbar Medtronic Inc [id number] / / Set Screw Solera Brk Off - [id number] Implanted:Qty : 4 on 09/23/2023 by Brock Sawyer MD at [facility] Screw/An chor N/A: Spine Lumbar Medtronic Inc [id number] / / Procedures Procedure Name Priority Date/Time [...] - 100 mg/dL 09/25/2023 11:36 AM CDT [facility] Blood 09/25/2023 7:53 AM CDT 09/25/2023 11:36 AM CDT Brock Sawyer MD LAB POINT OF CARE TEST RESULTS Performing Organization Address City/State/[facility] Co de Phone Number [facility] [address] [place] [address] * XR C-ARM SPINE (09/23/2023 9:14 AM [...] yes ETT to lip: 21 cm Sumit Albert MD AN BLOCKS from Last 3 Months Advance Directives For more information, please contact: [phone] * Full Code (Latest Code Status on File) Date Activated Date Inactivated Comments 09/24/2023 3:26 PM 09/25/2023 5:49 PM Question Answer Comments How was code status determined? Patient * Full Code Date Activated Date Inactivated Comments 09/23/2023 5:59 AM 09/23/2023 9:48 AM Question Answer Comments How was code status determined? Previous [facility] Care Teams Aircraft Skin Burnisher Relationship Specialty Start Date End Date [facility]- [address] [place] [address] PCP - Primary Care Clinic 09/18/22 [place] [address] [place] [address] PCP - General 05/20/23
--- OUTSIDE RECORDS SUMMARY | 2023-12-10 17:39 | XMS_ITS | Encounter Summary ---
Author Organization [facility] Address [address] [place] [address] Care Team Providers Care Swing Grinder Name Role Phone [facility]- Unava ilable Hayes Mcelroy MD Primary Care Provider [phone] Encounter Details Date Type Department Care Team [...] on filedocumented in this encounter Care Teams Swing Grinder Relationship Specialty Start Date End Date [facility]- [address] [place] [address] PCP - Primary Care Clinic 09/18/22 [place] [address] [place] [address] PCP - General 05/20/23 documented as of this encounter
--- OUTSIDE RECORDS SUMMARY | 2023-12-10 17:40 | XMS_ITS | Clinical Summary ---
Author Organization [facility] Address [address] [place] [address] Care Team Providers Care Weld Technician Name Role Phone Tommy Mcelroy MD Primary Care Provider [phone] Allergies Active Allergy Reactions Criticality Noted Date Comments Baclofen 12/23/2012 Diphenhydramine-Zinc Acetate Other (See Comments) 04/24/2011 Makes restless leg symptoms worse. Compazine Anaphylaxis 10/23/2004 Cyclobenzaprine Other (See Comments) 04/24/2011 Makes restless leg symptoms worse. Cyclobenzaprine Hcl 12/23/2012 Methocarbamol Other (See Comments) 04/24/2011 Makes restless leg symptoms worse. Mirtazapine 12/23/2012 Srwjkfjqhjpn-Zorlpcr-Bvub ine 12/23/2012 Medications pramipexole (MIRAPEX) 0.125 MG [...] on file Legal Sex Female 3:09 AM SECURITIES SETTLEMENT PROCESSOR Gender Identity Not on file Sexual Orientation Not on file Last Filed Vital Signs Vital Sign Reading Time Taken Comments Blood Pressure 111/70 01/08/2023 1:50 PM SECURITIES SETTLEMENT PROCESSOR Pulse 73 01/08/2023 1:50 PM SECURITIES SETTLEMENT PROCESSOR Temperature 36.7 ??C (98 ??F) 01/08/2023 1:50 PM SECURITIES SETTLEMENT PROCESSOR Respiratory Rate 18 01/08/2023 1:50 PM SECURITIES SETTLEMENT PROCESSOR Oxygen Saturation 96% 01/08/2023 1:50 PM SECURITIES SETTLEMENT PROCESSOR Inhaled Oxygen Concentration - - Weight 77.1 [...] this topic Medical Devices Implanted Type Area Drawing In Machine Tender Helper Device Identifier Shelf Expiration Date Model / Serial / Lot Graft Bone Foam Pack Vitoss 10ml Bio Active Implanted:Qty: 1 on 05/02/2011 at [facility] N/A: Spine Lumbar 10/04/2012 / / [id number] Iom Supplies Implanted:Qty: 1 on 05/02/2011 at [facility] Cell Saver Standby Implanted:Qty: 1 on 05/02/2011 at [facility] Graft Bone Crush Canc 15ml [id number] Implanted:Qty: 1 on 05/02/2011 at [facility] N/A: Spine Lumbar [id number] / [id number] / 14x12 Align Implanted:Qty: 1 on 05/02/2011 at [facility] N/A: Spine Lumbar [id number] / / [id number] 16x12 Align Implanted:Qty: 1 on 05/02/2011 at [facility] N/A: Spine Lumbar [id number] / / [id number] 25mm Plate Implanted:Qty: 1 on 05/02/2011 at [facility] N/A: Spine Lumbar [id number] / / [id number] 25mm Screw Implanted:Qty: 4 on 05/02/2011 at [facility] N/A: Spine Lumbar [id number] / / [id number] Imp Washer Syn [place] 13.5x5.5mm Implanted:Qty: 2 on 05/02/2011 at [facility] N/A: Spine Lumbar 219.951 / / 0106 [id number] Imp Scr Syn Canc 6.2w910ln Ft Ti Implanted:Qty: 2 on 05/02/2011 at [facility] N/A: Spine Lumbar 418.025 / / 0106 [id number] Spf-Plus 60/M Implantable Spinal Fusion Stimulator Implanted:Qty: 1 on 03/02/2014 by Brock Sawyer MD at [facility] N/A: Back BIOMET INC 07/03/2015 10-1398M / [id number] / Graft Bone Foam Pack Vitoss 10ml Bio Active Implanted:Qty: 1 on 03/02/2014 by Brock Sawyer MD at [facility] N/A: Back ORTHOVITA 09/10/2015 / / [id number] Imp Scr Medt 5.5/6.0mm Solera 6.5x45mm Ma [id number] Implanted:Qty: 4 on 03/02/2014 by Brock Sawyer MD at [facility] N/A: Back MEDTRONIC INC [id number] / / [id number] 2014 Imp Scr Medt 5.5/6.0mm Solera 8.5x70mm Ma [id number] Implanted:Qty: 2 on 03/02/2014 by Brock Sawyer MD at [facility] N/A: Back [employer] INC [id number] / / [id number] 01 MAR 2014 Imp Scr Set Medt Solera Break Off 5.5mm Ti [id number] Implanted:Qty: 6 on 03/02/2014 by Brock Sawyer MD at [facility] N/A: Back [employer]TRON[employer] INC [id number] / / [id number] 01 MAR 2014 Imp Beltran Medt Solera Cvd 5.2f614km Ti [id number] Implanted:Qty: 2 on 03/02/2014 by Brock Sawyer MD at [facility] N/A: Back [employer] INC [id number] / / [id number] 02 MAR 2014 Imp Scr Syn Can 4.0x20mm Ft Ss 206.020 Implanted:Qty: 2 on 03/02/2014 by Brock Sawyer MD at [facility] N/A: Back SYNTHES-STRATEC 206.020 / / Impulse Implanted:Qty: 1 on 03/02/2014 by Brock Sawyer MD at [facility] Explanted Type Area Drawing In Machine Tender Helper Device Identifier Shelf Expiration Date Model / Serial / Lot Imp Scr Danek Sext Can 6.5x40mm Legacy Ti Implanted:Qty: 2 on 05/02/2011 at [facility] Explanted:Qty: 2 on 03/02/2014 at [facility] N/A: Spine Lumbar [id number] / / [id number] 01MAY2011 Imp Scr Danek Set G4 Internal Hex [id number] Implanted:Qty: 4 on 05/02/2011 at [facility] Explanted:Qty: 4 on 03/02/2014 at [facility] N/A: Spine Lumbar [id number] / / [id number] 01MAY2011 Imp Beltran Danek Sext 60mm Ti [id number] Implanted:Qty: 2 on 05/02/2011 at [facility] Explanted:Qty: 2 on 03/02/2014 at [facility] N/A: Spine Lumbar [id number] / / [id number] 01MAY2011 Imp Scr Danek Sext Can 6.5x45mm Legacy Ti Implanted:Qty: 2 on 05/02/2011 at [facility] Explanted:Qty: 2 on 03/02/2014 at [facility] N/A: Spine Lumbar [id number] / / [id number] 01MAY2011 Description:BILATERAL SCREWS FROM S1, SCREW HEAD REMOVED, SCREW SHAFT REMAINS Procedures Procedure Name Priority Date/Time Associated Diagnosis Comments COMPREHENSIVE METABOLIC PANEL STAT 11/27/2014 4:05 PM CDT from Last 3 Months or Most Recently Relevant to Health Maintenance Results * (ABNORMAL) Comprehensive metabolic panel (11/27/2014 4:05 PM CDT) Sodium 139 133 - 144 mmol/L [facility] Potassium 4.0 3.4 - 5.3 mmol/L [facility] Chloride 105 94 - 109 mmol/L [facility] Carbon Dioxide 27 20 - 32 mmol/L [facility] Anion Gap 7 3 - 14 mmol/L [facility] Glucose 158(H) 70 - 99 mg/dL [facility] Urea Nitrogen 13 7 - 30 mg/dL [facility] Creatinine 0.76 0.52 - 1.04 mg/dL [facility] GFR Estimate 79 >60 mL/min/1. 7m2 [facility] Comment:Non GFR Calc GFR Estimate If Black >90 GFR Calc >60 mL/min/1. 7m2 [facility] Calcium 8.8 8.5 - 10.1 mg/dL [facility] Bilirubin Total 0.2 0.2 - 1.3 mg/dL [facility] Albumin 4.1 3.4 - 5.0 g/dL [facility] Protein Total 7.4 6.8 - 8.8 g/dL [facility] Alkaline Phosphatase 135 40 - 150 U/L [facility] ALT 55(H) 0 - 50 U/L [facility] AST 30 0 - 45 U/L [facility] Blood specimen (specimen) 11/27/2014 4:05 PM CDT 11/27/2014 4:14 PM CDT us Ian Monsivais MD LAB - BLOOD ORDERABLES Final Re sult [facility] [address] [address], [facility] [phone] from Last 3 Months or Most Recently Relevant to Health Maintenance Insurance none (Work) [address] [place], [place] [address] MEDICARE MEDICA [employer] MEDICARE [email or web address] OTHER OTHER none (Work) [address] [place] [address] [facility] [employer] INSURANCE Advance Directives For more information, please contact: [phone] * Full Code (Latest Code Status on File) Date Activated Date Inactivated Comments 05/02/2011 8:26 PM 05/06/2011 2:41 PM * Full Code Date Activated Date Inactivated Comments 05/02/2011 2:17 PM 05/02/2011 8:26 PM Care Teams Weld Technician Relationship Specialty Start Date End Date Tommy cMelroy MD PCP - General Family Practice 04/16/11
--- OUTSIDE RECORDS SUMMARY | 2023-12-10 17:40 | XMS_ITS | Referral Summary ---
Author Organization [facility] Address [address] [place] [address] Care Team Providers Care Special Distribution Clerk Name Role Phone Tommy Mcelroy MD Primary Care Provider [phone] Allergies Active Allergy Reactions Criticality Noted Date Comments Baclofen 12/23/2012 Diphenhydramine-Zinc Acetate Other (See Comments) 04/24/2011 Makes restless leg symptoms worse. Compazine Anaphylaxis 10/23/2004 Cyclobenzaprine Other (See Comments) 04/24/2011 Makes restless leg symptoms worse. Cyclobenzaprine Hcl 12/23/2012 Methocarbamol Other (See Comments) 04/24/2011 Makes restless leg symptoms worse. Mirtazapine 12/23/2012 Owlqdtfzlmre-Qycseal-Lcfw ine 12/23/2012 Medications pramipexole (MIRAPEX) 0.125 MG [...] on file Legal Sex Female 3:09 AM NEWSPAPER DELIVERY DRIVER Gender Identity Not on file Sexual Orientation Not on file Last Filed Vital Signs Vital Sign Reading Time Taken Comments Blood Pressure 111/70 01/08/2023 1:50 PM NEWSPAPER DELIVERY DRIVER Pulse 73 01/08/2023 1:50 PM NEWSPAPER DELIVERY DRIVER Temperature 36.7 ??C (98 ??F) 01/08/2023 1:50 PM NEWSPAPER DELIVERY DRIVER Respiratory Rate 18 01/08/2023 1:50 PM NEWSPAPER DELIVERY DRIVER Oxygen Saturation 96% 01/08/2023 1:50 PM NEWSPAPER DELIVERY DRIVER Inhaled Oxygen Concentration - - Weight 77.1 kg (170 lb) 11/27/2014 3:41 PM CDT Height 175.3 cm (5' 9) 11/27/2014 3:41 PM CDT Body Mass Index 25.1 11/27/2014 3:41 PM CDT Plan of Treatment Not on file Medical Devices Implanted Type Area Parole Or Probation Officer Device Identifier Shelf Expiration Date Model / Serial / Lot Graft Bone Foam Pack Vitoss 10ml Bio Active Implanted:Qty: 1 on 05/02/2011 at [facility] N/A: Spine Lumbar 10/04/2012 / / [id number] Iom Supplies Implanted:Qty: 1 on 05/02/2011 at [facility] Cell Saver Standby Implanted:Qty: 1 on 05/02/2011 at [facility] Graft Bone Crush Canc 15ml [id number] Implanted:Qty: 1 on 05/02/2011 at [facility] N/A: Spine Lumbar [id number] / [id number] / 14x12 Align Implanted:Qty: 1 on 05/02/2011 at [facility] N/A: Spine Lumbar [id number] / / [id number] 16x12 Align Implanted:Qty: 1 on 05/02/2011 at [facility] N/A: Spine Lumbar [id number] / / [id number] 25mm Plate Implanted:Qty: 1 on 05/02/2011 at [facility] N/A: Spine Lumbar [id number] / / [id number] 25mm Screw Implanted:Qty: 4 on 05/02/2011 at [facility] N/A: Spine Lumbar [id number] / / [id number] Imp Washer Syn [place] 13.5x5.5mm Implanted:Qty: 2 on 05/02/2011 at [facility] N/A: Spine Lumbar 219.951 / / 0106 [id number] Imp Scr Syn Canc 6.0f947yl Ft Ti Implanted:Qty: 2 on 05/02/2011 at [facility] N/A: Spine Lumbar 418.025 / / 0106 [id number] Spf-Plus 60/M Implantable Spinal Fusion Stimulator Implanted:Qty: 1 on 03/02/2014 by Brock Sawyer MD at [facility] N/A: Back BIOMET INC 07/03/2015 10-1398M / [id number] / Graft Bone Foam Pack Vitoss 10ml Bio Active [id number] Implanted:Qty: 1 on 03/02/2014 by Brock Sawyer MD at [facility] N/A: Back ORTHOVITA 09/10/2015 [id number] / / [id number] Imp Scr Medt 5.5/6.0mm Solera 6.5x45mm Ma [id number] Implanted:Qty: 4 on 03/02/2014 by Brock Sawyer MD at [facility] N/A: Back MEDTRONIC INC [id number] / / [id number] 2014 Imp Scr Medt 5.5/6.0mm Solera 8.5x70mm Ma [id number] Implanted:Qty: 2 on 03/02/2014 by Brock Sawyer MD at [facility] N/A: Back MEDTRON[employer] INC [id number] / / [id number] 01 MAR 2014 Imp Scr Set Medt Solera Break Off 5.5mm Ti [id number] Implanted:Qty: 6 on 03/02/2014 by Brock Sawyer MD at [facility] N/A: Back MEDTRONIC INC [id number] / / [id number] 01 MAR 2014 Imp Beltran Medt Solera Cvd 5.0j791gn Ti [id number] Implanted:Qty: 2 on 03/02/2014 by Brock Sawyer MD at [facility] N/A: Back MEDTRONIC INC [id number] / / [id number] 02 MAR 2014 Imp Scr Syn Can 4.0x20mm Ft Ss 206.020 Implanted:Qty: 2 on 03/02/2014 by Brock Sawyer MD at [facility] N/A: Back SYNTHES-STRATEC 206.020 / / Impulse Implanted:Qty: 1 on 03/02/2014 by Brock Sawyer MD at [facility] Explanted Type Area Parole Or Probation Officer Device Identifier Shelf Expiration Date Model / Serial / Lot Imp Scr Danek Sext Can 6.5x40mm Legacy Ti Implanted:Qty: 2 on 05/02/2011 at [facility] Explanted:Qty: 2 on 03/02/2014 at [facility] N/A: Spine Lumbar [id number] / / [id number] 01MAY2011 Imp Scr Danek Set G4 Internal Hex [id number] Implanted:Qty: 4 on 05/02/2011 at [facility] Explanted:Qty: 4 on 03/02/2014 at [facility] N/A: Spine Lumbar [id number] / / [id number] 01MAY2011 Imp Beltran Danek Sext 60mm Ti [id number] Implanted:Qty: 2 on 05/02/2011 at [facility] Explanted:Qty: 2 on 03/02/2014 at [facility] N/A: Spine Lumbar [id number] / / [id number] 01MAY2011 Imp Scr Danek Sext Can 6.5x45mm Legacy Ti Implanted:Qty: 2 on 05/02/2011 at [facility] Explanted:Qty: 2 on 03/02/2014 at [facility] N/A: Spine Lumbar [id number] / / [id number] 01MAY2011 Description:BILATERAL SCREWS FROM S1, SCREW HEAD REMOVED, SCREW SHAFT REMAINS Procedures Procedure Name Priority Date/Time Associated Diagnosis Comments COMPREHENSIVE METABOLIC PANEL STAT 11/27/2014 4:05 PM CDT from Last 3 Months or Most Recently Relevant to Health Maintenance Results * (ABNORMAL) Comprehensive metabolic panel (11/27/2014 4:05 PM CDT) Sodium 139 133 - 144 mmol/L [facility] Potassium 4.0 3.4 - 5.3 mmol/L [facility] Chloride 105 94 - 109 mmol/L [facility] Carbon Dioxide 27 20 - 32 mmol/L [facility] Anion Gap 7 3 - 14 mmol/L [facility] Glucose 158(H) 70 - 99 mg/dL [facility] Urea Nitrogen 13 7 - 30 mg/dL [facility] Creatinine 0.76 0.52 - 1.04 mg/dL [facility] GFR Estimate 79 >60 mL/min/1. 7m2 [facility] Comment:Non GFR Calc GFR Estimate If Black >90 GFR Calc >60 mL/min/1. 7m2 [facility] Calcium 8.8 8.5 - 10.1 mg/dL [facility] Bilirubin Total 0.2 0.2 - 1.3 mg/dL [facility] Albumin 4.1 3.4 - 5.0 g/dL [facility] Protein Total 7.4 6.8 - 8.8 g/dL [facility] Alkaline Phosphatase 135 40 - 150 U/L [facility] ALT 55(H) 0 - 50 U/L [facility] AST 30 0 - 45 U/L [facility] Blood specimen (specimen) 11/27/2014 4:05 PM CDT 11/27/2014 4:14 PM CDT us Ian Monsivais MD LAB - BLOOD ORDERABLES Final Re sult [facility] [address] [place] [address] [phone] from Last 3 Months or Most Recently Relevant to Health Maintenance Insurance none (Work) [address] [place] [address] MEDICARE MEDICA [employer] [place] [id number] MEDICARE [employer] [place] [id number] OTHER OTHER none (Work) [address] [place] [address] [facility] INSURANCE Advance Directives For more information, please contact: [phone] * Full Code (Latest Code Status on File) Date Activated Date Inactivated Comments 05/02/2011 8:26 PM 05/06/2011 2:41 PM * Full Code Date Activated Date Inactivated Comments 05/02/2011 2:17 PM 05/02/2011 8:26 PM Care Teams Special Distribution Clerk Relationship Specialty Start Date End Date Tommy Mcelroy MD PCP - General Family Practice 04/16/11
--- OUTSIDE RECORDS SUMMARY | 2023-12-10 17:40 | XMS_ITS | Clinical Summary ---
Author Organization [facility] Address [place], [place] [address] Care Team Providers Care Binding Stitcher Name Role Phone Hayes Mcelroy MD Primary Care Provider [phone] Allergies Active Allergy Reactions Criticality Noted Date [...] Description 10/16/2023 11:30 AM CDT Ancillary Procedure [facility] [address] [place] [address] 10/16/2023 11:15 AM CDT Ancillary Procedure [facility] [address] [place] [address] 10/16/2023 Orders Only [facility] [address] [place] [address] Greg Tyson PA <No scans attached> from [...] Comments Blood Pressure 105/55 01/17/2022 9:09 AM DIRECTOR DENTAL SERVICES Pulse 71 01/17/2022 11:25 AM DIRECTOR DENTAL SERVICES Temperature 36.8 ??C (98.3 ??F) 01/17/2022 9:09 AM CS T Respiratory Rate 16 01/17/2022 11:25 AM DIRECTOR DENTAL SERVICES Oxygen Saturation 91% 01/17/2022 11:25 AM DIRECTOR DENTAL SERVICES Inhaled Oxygen Concentration - - Weight 72.6 kg (160 lb) 04/11/2022 9:58 AM DIRECTOR DENTAL SERVICES Height 175.3 cm (5' 9) 04/11/2022 9:58 AM DIRECTOR DENTAL SERVICES Body Mass Index 23.63 04/11/2022 9:58 AM DIRECTOR DENTAL SERVICES Plan of Treatment Health Maintenance Due Date [...] history exists Medical Devices Implanted Type Area Machine Loader Device Identifier Shelf Expiration Date Model / Serial / Lot Bone Matrix 10cc Progenix Plusputty Dbm - [id number] Implanted:Qty : 1 on 12/01/2019 by Brock Sawyer MD at [facility] N/A: Lumbar Vertebrae Medtronic Spine/Ortho 06/15/2021 [id number]# / / [id number] Spacer Lmbr 9-91t41pn 11deg Elevate Extra-Lordoti c Peek Titn - [id number] Implanted:Qty : 1 on 12/01/2019 by Brock Sawyer MD at [facility] N/A: Lumbar Vertebrae Medtronic Spine/Ortho 09/15/2027 [id number]# / / [id number] Screw Lmbr Post 6.5x50mm Solera 5.5/6 Va Cocr - [id number] Implanted:Qty : 4 on 12/01/2019 by Brock Sawyer MD at [facility] N/A: Lumbar Vertebrae Medtronic Spine/Ortho [id number] / / 5.5 X 500mm Cc Beltran Implanted:Qty : 1 on 12/01/2019 by Brock Sawyer MD at [facility] N/A: Lumbar Vertebrae Medtronic Spine/Ortho [id number] / / Bone 1-4mm 90cc Medtronic Chips Canclls Freeze Dried - [id number] Implanted:Qty : 1 on 12/01/2019 by Brock Sawyer MD at [facility] N/A: Lumbar Vertebrae Med[employer]onic Spine/Ortho 04/24/2024 [id number]# / / [id number]: [id number] Bone Matrix Md Infuse Bmp - [id number] Implanted:Qty : 1 on 12/01/2019 by Brock Sawyer MD at [facility] N/A: Lumbar Vertebrae Medtronic Spine/Ortho 11/09/2021 [id number]# / / [id number] Bone 1-4mm 30cc Medtronic Chips Canclls Freeze Dried - [id number] Implanted:Qty : 1 on 12/01/2019 by Brock Sawyer MD at [facility] N/A: Lumbar Vertebrae Medtronic Spine/Ortho 05/31/2024 [id number]# / / [id number]: [id number] Spacer Lmbr [id number] 12deg Elevate Extra-Lordoti c Peek Tit - [id number] Implanted:Qty : 1 on 12/01/2019 by Brock Sawyer MD at [facility] N/A: Lumbar Vertebrae Medtronic Spine/Ortho 05/31/2027 [id number]# / / [id number] Bone Matrix 10cc Progenix Putty Dbm - [id number] Implanted:Qty : 1 on 12/01/2019 by Brock Sawyer MD at [facility] N/A: Lumbar Vertebrae Medtronic Spine/Ortho 01/15/2021 [id number]# / / [id number] Set Screw Lmbr Ant 5.5mm Solera Break Off - [id number] Implanted:Qty : 10 on 12/01/2019 by Brock Sawyer MD at [facility] Explanted:Qty : 1 on 06/27/2020 by Brock Sawyer MD at [facility] N/A: Lumbar Vertebrae Medtronic Spine/Ortho [id number]# / / Vitoss 1.2cc [id number] - [id number] Implanted:Qty : 1 on 01/17/2021 by Brock Sawyer MD at [facility] N/A: Cervical Vertebrae [place] Spine 05/07/2021 [id number] / / [id number] Anterior Cervical Cage 7mm X 12mm X 14mm [id number] - [id number] Implanted:Qty : 1 on 01/17/2021 by Brock Sawyer MD at [facility] N/A: Cervical Vertebrae [place] Spine 01/25/2023 [id number] / / [id number] [place] Plates 22mm [id number] - [id number] Implanted:Qty : 1 on 01/17/2021 by Brock Sawyer MD at [facility] N/A: Cervical Vertebrae [place] Spine [id number] / / [place] Self-Starting Variable Screw 4.0x14mm [id number] - [id number] Implanted:Qty : 3 on 01/17/2021 by Brock Sawyer MD at [facility] N/A: Cervical Vertebrae Bri Spine [id number] / / [place] Self-Starting Variable Screw 4.5x14mm [id number] - [id number] Implanted:Qty : 1 on 01/17/2021 by Brock Sawyer MD at [facility] N/A: Cervical Vertebrae [id number] / / Vitoss Bimodal Implanted:Qty : 1 on 08/21/2021 by Brokc Sawyer MD at [facility] N/A: Cervical Vertebrae [place] Spine 05/07/2022 [id number] / / [id number] Bone Matrix 5cc Stimulan Kit Rapid Cure - [id number] Implanted:Qty : 1 on 08/21/2021 by Brock Sawyer MD at [facility] N/A: Cervical Vertebrae [employer] 09/10/2023 [id number] / / [id number] 3.5 X 12mm Buckner Oct Polyaxial Screw Implanted:Qty : 3 on 08/21/2021 by Brock Sawyer MD at [facility] N/A: Cervical Vertebrae [employer] [id number] / / 34.0 X 12mm Buckner Oct Polyaxial Screw Implanted:Qty : 1 on 08/21/2021 by Brock Sawyer MD at [facility] N/A: Cervical Vertebrae [employer] [id number] / / Set Screw Implanted:Qty : 4 on 08/21/2021 by Brock Sawyer MD at [facility] N/A: Cervical Vertebrae [employer] [id number] / / Contoured Rods4.0 X 25mm Implanted:Qty : 2 on 08/21/2021 by Brock Sawyer MD at [facility] N/A: Cervical Vertebrae [employer] [id number] / / Bone Matrix Sm Infuse Bmp - [id number] Implanted:Qty : 1 on 01/16/2022 by Brock Sawyer MD at [facility] Lumbar Vertebrae Medtronic Spine/Ortho 02/10/2024 [id number] / / [id number] Bone Matrix 5cc Progenix Plus Putty Dbm - [id number] Implanted:Qty : 1 on 01/16/2022 by Brock Sawyer MD at [facility] Spine Medtronic Spine/Ortho 05/02/2023 [id number] / [id number] / Bone 1-4mm 15cc Medtronic Chips Canclls Freeze Dried - [id number] Implanted:Qty : 1 on 01/16/2022 by Brock Sawyer MD at [facility] Spine Medtronic Spine/Ortho 12/04/2025 [id number] / [id number] / [id number] Implant 16mm Implanted:Qty : 1 on 01/16/2022 by Brock Sawyer MD at [facility] Spine Medtronic Spine/Ortho 07/05/2025 [id number] / / [id number] Tas Bone Screw Implanted:Qty : 1 on 01/16/2022 by Brock Sawyer MD at [facility] Spine Medtronic Spine/Ortho [id number] / / Divergence Screws Implanted:Qty : 4 on 01/16/2022 by Brock Sawyer MD at [facility] Spine Medtronic Spine/Ortho [id number] / / Divergence 18mm Plate Implanted:Qty : 1 on 01/16/2022 by Brock Sawyer MD at [facility] Spine Medtronic Spine/Ortho [id number] / / Explanted Type Area Machine Loader Device Identifier Shelf Expiration Date Model / Serial / Lot [place] [employer] Precision Spinal Cord Stimulator Explanted:Qty: 1 on 12/01/2019 by Brock Sawyer MD at [facility] N/A: Lumbar Vertebrae [employer] [place] [employer] / [id number] / Description:Battery and lead s explanted IPG model SC-1110 Bone Growth Stimulator Explanted:Qty: 1 on 12/01/2019 by Brock Sawyer MD at [facility] N/A: Lumbar Vertebrae Description:SpF-PLUS CLAUDIA [id number] Battery and leads explanted 100mm 5.5 Ti Beltran Explanted:Qty: 2 on 12/01/2019 by Brock Sawyer MD at [facility] N/A: Lumbar Vertebrae Set Screws Solera Explanted:Qty: 6 on 12/01/2019 by Brock Sawyer MD at [facility] N/A: Lumbar Vertebrae Medtronic Spine/Ortho Screw Sm Joint 4.5x20mm Axsos Raymundo [facility] - [id number] Explanted:Qty: 4 on 12/01/2019 by Brock Sawyer MD at [facility] N/A: Lumbar Vertebrae [employer] [id number]# / / 8.5 X 70 Mm Ballast Screw Explanted:Qty: 1 on 06/27/2020 by Brock Sawyer MD at [facility] Right: Lumbar Vertebrae Medtronic Procedures Procedure Name [...] 16 Negative Negative 11/27/2022 11:43 AM CDT [facility] TYPE 18 Negative Negative 11/27/2022 11:43 AM CDT [facility] OTHER HIGH RISK TYPES Positive(A) Negative 11/27/2022 11:43 AM CDT [facility] Other (Cervical) 11/21/2022 9:04 AM CDT 11/25/2022 11:50 AM CDT [facility]ative [facility] 11/27/2022 11:43 AM CDT Specimen is positive for the DNA of any one of, or combination of, the following high risk HPV types: 31, 33, 35, 39, 45, 51, 52, 56, 58, 59, 66, 68. HPV types 16 and 18 DNA were undetectable or below the pre-set threshold. ? Methodology: Velia Amador 4800 HPV Test Maryuri Rabago PA-C MICROBIOLOGY [facility] [address] [place] [address], * XR FFDM MAMMO SCREENING BILATERAL SSP [...] Computer-Aided Detection. ?? COMPARISON FILMS: Yes 10/07/08 [facility] FINDINGS: ??Mammographically, the breast tissue is [...] of Computer-Aided Detection. COMPARISON FILMS: Yes 10/07/08 [facility] FINDINGS: Mammographically, the breast tissue is [...] Code Status Discussion: Not Discussed Care Teams Binding Stitcher Relationship Specialty Start Date End Date Hayes Mcelroy MD PCP - General Family Practice 01/10/17
--- OUTSIDE RECORDS SUMMARY | 2023-12-10 17:40 | XMS_ITS | Clinical Summary ---
Author Organization [facility] Address [address] [place] [address] Care Team Providers Care Civil Engineering Design Draftsperson Name Role Phone Tommy Mcelroy MD Primary Care Provider [phone] Source Comments You are receiving this document as you are listed as the primary care provider,follow-up provider, or the patient has been referred to you for consultation.This is in compliance with the Medicare andSelect [facility] Hospital[facility] EHR Incentive Program,which states Providers who transition their patient to another setting of careor provider of care or refers their patient to another provider of care shouldprovide summary care record for each transition of care or referral. [facility] Allergies Active Allergy Reactions Criticality Noted Date Comments Antihistamines, Diphenhydramine-Type 06/16/2009 I have restless leg syndrome Phenothiazines Other, see comments 06/16/2009 Medications Medication Sig Dispensed Refills Start Date End Date Status Pramipexole Dihydrochloride (MIRAPEX OR) None Entered Active LORazepam (ATIVAN OR) Act nathaniel Active Problems Problem Noted Date Diagnosed Date Right foot pain 05/13/2022 Overview (05/13/2022): Added automatically from request for surgery [id number] Social History Tobacco Use Types Packs/Day Years [...] age to complete this topic 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
== END 2023-12-10 17:33 | disposition home or self-care (01) ==
LOC: ED 17:35
PROVIDERS: Emergency Provider Family Medicine; PCP Family Medicine
DX: L03.116 Cellulitis of left lower limb (principal); T81.49XA Infection following a procedure, other surgical site, initial encounter
CPT/HCPCS: 99283; 99284

== ENCOUNTER 2023-12-16 15:27 | Outpatient (CLI) | payer MEDICARE, OTHER, SELFPAY | END 2023-12-16 15:28 | disposition home or self-care (01) | LOC: NFLDREF 12-18 08:38 | PROVIDERS: PCP Family Medicine; Referring Provider Family Medicine; Visit Provider Family Medicine | DX: R10.11 Right upper quadrant pain (principal); D50.9 Iron deficiency anemia, unspecified; T79.A22D Traumatic compartment syndrome of left lower extremity, subsequent encounter | CPT/HCPCS: 87086; 87186 ==

== ENCOUNTER 2023-12-30 14:51 | Outpatient (CLI) | payer MEDICARE, OTHER, SELFPAY ==
[2024-01-01 17:58] LABS: HPV Source Cervix; HPV, High Risk by TMA Not Detected
== END 2023-12-30 14:52 | disposition home or self-care (01) ==
PROVIDERS: PCP Family Medicine; Visit Provider Family Medicine
DX: R87.619 Unspecified abnormal cytological findings in specimens from cervix uteri (principal); Z12.4 Encounter for screening for malignant neoplasm of cervix
CPT/HCPCS: 87624; 87625; 88141; 88142

== ENCOUNTER 2024-01-02 09:09 | Emergency (ER) | payer MEDICARE, OTHER, SELFPAY ==
[2024-01-02 09:39] VITALS: BP 134/89; PULSE 84; RESP 18; TEMP 36.5; O2SAT 98; BMI 20.7
--- NOTE | 2024-01-02 10:01 | ED.GENADULT ---
HPI - General Adult General Chief complaint: Post Op Complication Stated complaint: knee pain and swealing in left leg Time Seen by Provider: 01/02/24 09:47 History of Present Illness HPI narrative: Patient here with increased pain in left leg x2 days. Called her surgeon at [facility] and told to go to ER to rule out anything acute. 63-year-old woman presenting to the emergency department Related Data Home Medications ?Medication ?Instructions ?Recorded ?Confirmed lamotrigine 200 mg tablet mg PO BID 08/17/21 12/30/23 trazodone 50 mg tablet 50 mg PO .Bedtime 08/17/21 11/04/23 oxycodone 10 mg tablet 10 mg PO TID 03/13/23 12/30/23 oxycodone 15 mg tablet 15 mg PO BID PRN 03/13/23 12/30/23 prazosin 2 mg capsule 2 mg PO DAILY 03/13/23 12/30/23 sennosides 8.6 mg tablet 8.6 mg PO QDAY PRN 03/13/23 12/30/23 tizanidine 4 mg tablet 2 - 4 mg PO .QD PRN 03/13/23 12/30/23 topiramate 25 mg tablet 25 mg PO BID 03/13/23 12/30/23 bupropion HCl 300 mg 24 hr tablet, 150 mg PO DAILY 09/16/23 12/30/23 extended release duloxetine 60 mg capsule,delayed 120 mg PO QDAY 09/16/23 12/30/23 release (Cymbalta) linaclotide 145 mcg capsule 145 mcg PO DAILY 11/04/23 12/30/23 (Linzess) Previous Rx's ?Medication ?Instructions ?Recorded lancets (Accu-Chek Softclix #200 ea 06/06/22 Lancets) dicyclomine 20 mg tablet See Rx Instructions .Route 01/03/23 .COMPLEX #270 tabs blood-glucose meter #1 ea 05/19/23 blood sugar diagnostic (Accu-Chek #100 ea 05/21/23 Kaylee Plus test strips) simvastatin 20 mg tablet See Rx Instructions .Route 09/18/23 .COMPLEX #90 tabs metformin 1,000 mg tablet 1,000 mg PO BID #180 tabs 10/09/23 pramipexole 0.5 mg tablet 0.5 mg PO DAILY #90 tabs 10/20/23 cefadroxil 500 mg capsule 500 mg PO BID 7 days #14 caps 12/10/23 semaglutide 1 mg/dose (4 mg/3 mL) 1 mg (0.75 mL) subcut QWEEK #3 mL 12/12/23 subcutaneous pen injector (Ozempic) levofloxacin 500 mg tablet 500 mg PO Q24H #7 tabs 12/22/23 omeprazole 40 mg capsule,delayed 40 mg PO DAILY #90 caps 12/30/23 release semaglutide 2 mg/dose (8 mg/3 mL) 2 mg (0.75 mL) subcut QWEEK #3 mL 12/30/23 subcutaneous pen injector (Ozempic) Allergies Allergy/AdvReac Type Severity Reaction Status Date / Time hydroxyzine Allergy Severe involuntary Verified 12/30/23 14:20 muscle movement venlafaxine Allergy Mild Rash, Verified 12/30/23 14:20 restless legs prochlorperazine (From Allergy Verified 12/30/23 14:20 Compazine) diphenhydramine AdvReac Mild Effects RLS Verified 12/30/23 14:20 PFSH PFSH Medical History UTI (urinary tract infection) ?N39.0 - Urinary tract infection, site not specified (ICD-10) Palpitations ?R00.2 - Palpitations (ICD-10) Syncope ?R55 - Syncope and collapse (ICD-10) 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) ?M50.20 - Other cervical disc displacement, unspecified cervical region (ICD-10) Surgical History S/P laparoscopic procedure ?Z98.890 - Other specified postprocedural states (ICD-10) S/P insertion of spinal cord stimulator ?Z96.89 - Presence of other specified functional implants (ICD-10) S/P lumbar fusion ?Z98.1 - Arthrodesis status (ICD-10) S/P cervical spinal fusion ?Z98.1 - Arthrodesis status (ICD-10) S/P bunionectomy ?Z98.890 - Other specified postprocedural states (ICD-10) History of tonsillectomy and adenoidectomy (01/17/10) ?Z90.89 - Acquired absence of other organs (ICD-10) History of laparoscopic appendectomy (05/14/12) ?Z90.49 - Acquired absence of other specified parts of digestive tract (ICD-10) History of cholecystectomy (01/17/10) ?Z90.49 - Acquired absence of other specified parts of digestive tract (ICD-10) History of appendectomy (06/30/12) ?Z90.49 - Acquired absence of other specified parts of digestive tract (ICD-10) Family History Mother Osteoporosis Social History Narrative: , currently engaged to be . On disability. 3 children. No alcohol. Non-smoker. No illicit drug use. Smoking Status: Current every day smoker How often do you have a drink containing alcohol: never AUDIT-C Alcohol total score: 0 Non-prescribed substance use: denies use Exam Const: Vital Signs, click to edit/add: Vital Signs - 24 hr 01/02/24 09:39 Temperature 97.7 F Pulse Rate [Pulse Oximeter] 84 Respiratory Rate 18 Blood Pressure [Ri ght Upper Arm] 134/89 Pulse Oximetry 98 Oxygen Delivery Me thod Room Air Course Vital Signs Vital signs: Initial Vital Signs Temperature 97.7 F 01/02/24 09:39 Temperature Source Temporal Artery Scan 01/02/24 09:39 Pulse Rate 84 01/02/24 09:39 Respiratory Rate 18 01/02/24 09:39 Blood Pressure 134/89 01/02/24 09:39 Blood Pressure Mean 104 01/02/24 09:39 Blood Pressure Position Sitting 01/02/24 09:39 Pulse Oximetry 98 01/02/24 09:39 Oxygen Delivery Method Room Air 01/02/24 09:39 Vital Signs Temperature 97.7 F 01/02/24 09:39 Pulse Rate 84 01/02/24 09:39 Respiratory Rate 18 01/02/24 09:39 Blood Pressure 134/89 01/02/24 09:39 Pulse Oximetry 98 01/02/24 09:39 Oxygen Delivery Method Room Air 01/02/24 09:39 Temperature 97.7 F 01/02/24 09:39 Pulse Rate 84 01/02/24 09:39 Respiratory Rate 18 01/02/24 09:39 Blood Pressure 134/89 01/02/24 09:39 Pulse Oximetry 98 01/02/24 09:39 Oxygen Delivery Method Room Air 01/02/24 09:39 Discharge Plan Discharge Prescriptions: No Action duloxetine [Cymbalta] 60 mg capsule,delayed release(DR/EC) 120 mg PO QDAY sennosides 8.6 mg tablet 8.6 mg PO QDAY PRN Rx Instructions: 1 in the morning 1-2 at night trazodone 50 mg tablet 50 mg PO .Bedtime lamotrigine 200 mg tablet PO BID oxycodone 15 mg tablet 15 mg PO BID PRN prazosin 2 mg capsule 2 mg PO DAILY tizanidine 4 mg tablet 2 - 4 mg PO .QD PRN topiramate 25 mg tablet 25 mg PO BID bupropion HCl 300 mg tablet extended release 24 hr 150 mg PO DAILY (DME) lancets [Accu-Chek Softclix Lancets] Misc See Rx Instructions .Route Qty: 200 12RF Rx Instructions: tid Linzess 145 mcg capsule 145 mcg PO DAILY Ozempic 2 mg/dose (8 mg/3 mL) pen injector 2 mg subcut QWEEK Qty: 3 5RF oxycodone 10 mg tablet 10 mg PO TID cefadroxil 500 mg capsule 500 mg PO BID 7 Days Qty: 14 0RF dicyclomine 20 mg tablet See Rx Instructions .ROUTE .COMPLEX Qty: 270 2RF Dose Instruction: TAKE ONE TABLET BY MOUTH THREE TIMES DAILY Rx Instructions: TAKE ONE TABLET BY MOUTH THREE TIMES DAILY (DME) blood-glucose meter Misc See Rx Instructions .Route Qty: 1 0RF Rx Instructions: As directed (DME) Accu-Chek Kaylee Plus test strp Strip See Rx Instructions .Route Qty: 100 3RF Rx Instructions: tid simvastatin 20 mg tablet See Rx Instructions .ROUTE .COMPLEX Qty: 90 3RF Dose Instruction: TAKE ONE TABLET BY MOUTH ONE TIME DAILY AT BEDTIME Rx Instructions: TAKE ONE TABLET BY MOUTH ONE TIME DAILY AT BEDTIME metformin 1,000 mg tablet 1,000 mg PO BID Qty: 180 0RF pramipexole 0.5 mg tablet 0.5 mg PO DAILY Qty: 90 3RF Ozempic 1 mg/dose (4 mg/3 mL) pen injector 1 mg subcut QWEEK Qty: 3 0RF levofloxacin 500 mg tablet 500 mg PO Q24H Qty: 7 0RF omeprazole 40 mg capsule,delayed release(DR/EC) 40 mg PO DAILY Qty: 90 3RF Follow Up/Referrals: Hayes Mcelroy MD [Primary Care Provider] -
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
--- OUTSIDE RECORDS SUMMARY | 2024-01-02 10:13 | XMS_ITS | Encounter Summary ---
Author Organization [facility] Address [address] [place] [address] Phone Care Team Providers Care [employer] H[employer] Instructor Name Role Phone Pcp, No Primary Care Provider Unavailabl e Encounter Details Date Type Department Care Team (Latest Contact Info) Description 12/15/2023 Travel Social History Tobacco Use Types Packs/Day [...] on file Legal Sex Female 6:57 PM LIQUIFIED NATURAL GAS TECHNICIAN Gender Identity Not on file Sexual Orientation Not on file documented as of this encounter Plan of Treatment Upcoming Encounters Date Type Department Care Team (Late st Contact Info) Description 01/06/2024 11:40 AM LIQUIFIED NATURAL GAS TECHNICIAN [facility] [address] [address] Lotus Varela MD [address] [phone] Scheduled Discharge Disposition: Discharged to home or self care documented as of this encounter Visit Diagnoses Not on filedocumented in this encounter Care Teams [employer] Hvac [employer] Instructor Relationship Specialty Start Date End Date Pcp, [place] [address] PCP - General 03/18/09 documented as of this encounter
--- OUTSIDE RECORDS SUMMARY | 2024-01-02 10:13 | XMS_ITS | Encounter Summary ---
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 Gender Identity Not on file Sexual Orientation Not on file documented as of this encounter Plan of Treatment Upcoming Encounters Date Type Department Care Team (Late st Contact Info) Description 01/06/2024 11:40 AM SUPERINTENDENT MECHANICAL [facility] [address] [address] Lotus Varela MD [address] [phone] Scheduled Discharge Disposition: Discharged to home or self care documented as of this encounter Visit Diagnoses Not on filedocumented in this encounter Care Teams Bonus Clerk Relationship Specialty Start Date End Date Pcp, [place] [address] PCP - General 03/18/09 documented as of this encounter
--- OUTSIDE RECORDS SUMMARY | 2024-01-02 10:13 | XMS_ITS | Referral Summary ---
Author Organization [facility] Address [place] [address] Phone Care Team Providers Care Editor Continuity And Script Name Role Phone Pcp, No Primary Care Provider Unavailabl e Source Comments [employer] is fully rolled out on [employer]. Last update 07/15/08.[facility] Encounters Date Type Department Care Team Description 12/23/2023 Travel 12/23/2023 2:40 PM VIRTUAL ASSISTANT [facility] [address] [place] [address] Lotus Varela MD Orthopedic aftercare (Primary Dx) Discharge Disposition: Discharged to home or self care 12/15/2023 Travel 12/15/2023 1:00 PM VIRTUAL ASSISTANT [facility] [address] [place] [address] Lotus Varela MD Traumatic compartment syndrome of left lower extremity, initial encounter ([facility]) (Primary Dx) Discharge Disposition: Discharged to home or self care 11/30/2023 6:58 PM CDT - 12/03/2023 3:46 PM CDT Hospital Encounter [facility] Orthopaedic [address] [place], [place] [address] Gonzalez Engle MD Wright, Michael J, MD Inglis, John J, MD Closed fracture fibula, head, left, initial encounter Discharge Disposition: Discharged to home or self care 12/01/2023 Travel 12/01/2023 Orders Only [facility] Film Room [facility] Radiology Department [facility] [address] [place] [address] Provider, Outside Referral of patient (Primary Dx) 12/01/2023 6:32 AM CDT Anesthesia Event OR [address] [place] [address] Jaoquin Herrera MD Teslaa, Polly A RN 12/01/2023 6:15 AM CDT - 12/01/2023 8:23 AM CDT Surgery OR [address] [place] [address] Lotus Varela MD FASCIOTOMY, LOWER EXTREMITY from [...] 63 tablet 4 2:18 PM CDT 12/03/19 Active naloxone (NARCAN) 4 mg/0.1 mL nasal [...] 56 tablet 4 2:18 PM CDT 12/04/19 024 oxyCODONE (ROXICODONE) 5 mg oral tablet [...] complication, without long-term current use of insulin ([facility]) 08/21/2021 History of lumbar fusion 06/27/2020 IBS (irritable bowel syndrome) 06/27/2020 Opioid dependence with current use ([facility]) Lumbar radiculopathy 03/02/2014 Cocaine abuse ([facility]) 03/18/2009 Alcohol abuse 03/18/2009 RLS (restless legs syndrome) 03/18/2009 Immunizations Name Administration Dates Next Due COVID-19 MRNA Vaccine (Hi-[employer]-T[employer]/COMIRNATPercello) suspension 12/02/2020,06/02/2020,05/12/2020 COVID-19 Vaccine Monovalent (Moderna) 12 [...] on file Legal Sex Female 6:57 PM VIRTUAL ASSISTANT Gender Identity Not on file Sexual Orientation [...] st Contact Info) Description 01/06/2024 11:40 AM VIRTUAL ASSISTANT [facility] [address] [phone] Lotus Varela MD [address] [place] [phone] Scheduled Discharge Disposition: Discharged to home or [...] patient PANEL LIPID Routine 03/19/2009 5:24 AM VIRTUAL ASSISTANT from Last 3 Months or Most Recently Relevant to Health Maintenance Results * (ABNORMAL) CBC WITH PLTS/AUTO DIFF (12/03/2023 4:29 AM CDT) Only the most recent of3 resultswithin the time period is included. WBC 5.82 4.00 - 10.00 k/cmm [facility] RBC 3.61(L) 3.90 - 5.20 m/cmm [facility] Hgb 9.0(L) 11.5 - 15.7 g/dL [facility] Hematocrit 29.6(L) 34.0 - 45.0 % [facility] MCV 82.0 80.0 - 100.0 fL [facility] MCH 24.9(L) 25.0 - 32.0 pg [facility] MCHC 30.4(L) 31.0 - 36.0 g/dL [facility] RDW 17.2(H) 11.5 - 14.5 % [facility] Plt 192 150 - 400 k/cmm [facility] MPV 9.4 6.5 - 12.5 fL [facility] Automated Abs Neutrophil 3.14 1.70 - 6.50 k/cmm [facility] Comment:Preliminary ANC, Fin al Result to Follow Abs Immature Granulocyte 0.02 0.00 - 0.09 k/cmm [facility] Comment:The Immature Granulo cyte Absolute count contains metamyelocytes and myelocytes. Abs Neutrophil 3.14 1.70 - 6.50 k/cmm [facility] Abs Lymphocyte 1.89 0.80 - 4.00 k/cmm [facility] Abs Monocyte 0.47 0.20 - 1.00 k/cmm [facility] Abs Eosinophil 0.28 0.00 - 0.60 k/cmm [facility] Abs Basophil 0.02 0.00 - 0.20 k/cmm [facility] Blood 12/03/2023 4:29 AM CDT 12/03/2023 5:58 AM CDT Kory Kimball MD LABORATORY Edited Result - Final Performing Organization Address [facility]/ZIP Co de Phone Number [facility] [address] [place] [address] * PHOSPHORUS (12/03/2023 4:29 AM CDT) Phosphorus 3.0 2.5 - 4.5 mg/dL [facility] Blood 12/03/2023 4:29 AM CDT 12/03/2023 5:58 AM CDT Kory Kimball MD LABORATORY Final Result Performing Organization Address [facility] Co de Phone Number [facility] [address] [address] * (ABNORMAL) PANEL BASIC METABOLIC (BMP) (12/03/2023 4:29 AM CDT) Only the most recent of2 resultswithin the time period is included. Sodium 143 135 - 148 mmol/L [facility] Potassium 3.5 3.5 - 5.3 mmol/L [facility] Chloride 110(H) 92 - 108 mmol/L [facility] CO2 25 22 - 30 mmol/L [facility] Glucose 130(H) 70 - 100 mg/dL [facility] BUN 14 8 - 23 mg/dL [facility] Creatinine 0.66 0.50 - 1.00 mg/dL [facility] Calcium 8.5(L) 8.8 - 10.2 mg/dL [facility] AnGap 8 8 - 16 mmol/L [facility] eGFR (2020 CKD-EPI) 100 >=60 ml/min/1.7 3m2 [facility] Comment: The estimated glomerular filtration rate (eGFR) was calculated using the CKD-EPI 2020 creatinine equation, which does not include race as a factor. This equation is validated in individuals 18 years of age and older, and eGFR is normalized to a body surface area of 1.73m^2. Blood 12/03/2023 4:29 AM CDT 12/03/2023 5:58 AM CDT Kory Kimball MD LABORATORY Final Result [facility] [address] [address] * MAGNESIUM (12/03/2023 4:29 AM CDT) Magnesium 2.1 1.6 - 2.4 mg/dL [facility] Blood 12/03/2023 4:29 AM CDT 12/03/2023 5:58 AM CDT us Kory Kimball MD LABORATORY Final Result Performing Organization Address City/[facility]/ZIP Co de Phone Number [facility] [address] [address] * VITAMIN V26-VOXSIJ TO MMA (12/02/2023 4:42 AM CDT) B12 340 211 - 946 pg/mL [facility] Blood 12/02/2023 4:42 AM CDT 12/02/2023 5:19 AM CDT us Joaquin Snow MD LABORATORY Final Result Performing Organization Address City/[facility]/ZIP Co de Phone Number [facility] [address] [address] * (ABNORMAL) TRANSFERRIN (INCLUDES TIBC) (12/02/2023 4:42 AM CDT) Transferrin 230 200 - 360 mg/dL [facility] IBC 343 298 - 536 mcg/dL [facility] Iron Saturation Percent 6(L) 20 - 50 % [facility] Blood 12/02/2023 4:42 AM CDT 12/02/2023 5:19 AM CDT us Joaquin Snow MD LABORATORY Final Result [facility] [address] [address] * (ABNORMAL) IRON (12/02/2023 4:42 AM CDT) Iron 19(L) 35 - 145 mcg/dL [facility] Blood 12/02/2023 4:42 AM CDT 12/02/2023 5:19 AM CDT us Joaquin Snow MD LABORATORY Final Result Performing Organization Address [facility] Co de Phone Number [facility] [address] [address] * FERRITIN (12/02/2023 4:42 AM CDT) Ferritin 18.0 13.0 - 150.0 ng/mL [facility] Comment: Test Performed by: [facility] Laboratory [address] [place] [address] Blood 12/02/2023 4:42 AM CDT 12/02/2023 5:19 AM CDT Joaquin Snow MD LABORATORY Final Result Performing Organization Address [facility] de Phone Number [facility] [address] [address] * XR SHOULDER RT 2/3V AP/GRASH/Y* (12/01/2023 [...] Previous cervical spinesurgery Reading Radiologist: Ronald Nunn us Pema Miranda PA-C RAD XRAY Final R esult * XR [...] POC Glucose 108(H) 70 - 100 mg/dL [facility] Blood 12/01/2023 9:07 AM CDT Gonzalez Engle MD LABORATORY F inal Result [facility] [address] [place] [address], [place] * Intubation/Airway (12/01/2023 6:52 AM CDT) Narrative [...] unchanged and oral mucosa unchanged Performed by: SCORING MACHINE OPERATOR: Eric Ching APRN, CRNAAnesthesiologist: Emir Bullock MD Additional Notes RSI Events Anesthesia start: 12/01/2023 6:32 AM Intubation time: 12/01/2023 6:41 AM us Joaquin Herrera MD PROCEDURES Final Resul t [...] Lester Graves Gonzalez Engle MD RAD XRAY F inal [...] IMPRESSION Impression: No acute abnormality. Reading Radiologist: Boeke, Lester M Gonzalez Engle MD RAD XRAY F inal Result * ED EKG (12-LEAD) (11/30/2023 7:09 PM CDT) 11/30/2023 7:09 PM CDT Impressions [facility] CVIS EKG ORDERS - 11/30/2023 7:09 PM CDT SINUS RHYTHM POSSIBLE RIGHT ATRIAL ENLARGEMENT [0.25mV P-WAVE] BORDERLINE ECG P-R Interval 176 ms QRS Interval 95 ms QT Interval 390 ms QTC Interval 434 ms P Sedley 78 QRS Sedley 77 T Wave Sedley 76 Narrative Procedure Note Greg Posey MD - 12/01/2023 IMPRESSION SINUS RHYTHM POSSIBLE RIGHT ATRIAL ENLARGEMENT [0.25mV P-WAVE] BORDERLINE ECG P-R Interval 176 ms QRS Interval 95 ms QT Interval 390 ms QTC Interval 434 ms P Sedley 78 QRS Sedley 77 T Wave Sedley 76 Jian Howell MD EKG Final Result Performing Organization Address City/[facility]/ZIP Co de Phone Number [facility] CVIS EKG ORDERS * ED INR (11/30/2023 7:02 PM CDT) ED INR 1.0 0.8 - 1.1 [facility] Comment: Warfarin Therapeutic Range: Standard Intensity: 2.0 - 3.0 High Intensity: 2.5 - 3.5 This is a rapid INR screening test which uses whole blood; results may infrequently differ from plasma INR results. If medication adjustments/dosing are required a PT/INR test ([id number]) should be ordered and performed in the main laboratory. Blood 11/30/2023 7:02 PM CDT 11/30/2023 7:08 PM CDT Jian Howell MD LABORATORY Final Result [facility] [address] [address] * EXTRA TUBE - SST (11/30/2023 7:02 PM CDT) SST TUBE Stored [facility] Comment:SST tubes (Serum Sep arator) are stored in the lab for 3 days from the collection date. Blood 11/30/2023 7:02 PM CDT 11/30/2023 7:09 PM CDT us Jian Howell MD LABORATORY Final Result Performing Organization Address City/[facility]/ZIP Co de Phone Number [facility] [address] [address] * HS TROPONIN (11/30/2023 7:02 PM CDT) HS Troponin I <3 <=14 ng/L [facility] Blood 11/30/2023 7:02 PM CDT 11/30/2023 7:08 PM CDT Narrative [facility] - 11/30/2023 7:34 PM CDT First Occurrence of the Troponin order is to be drawn Stat by Nursing staff on the unit. us Jian Howell MD LABORATORY Final Result Performing Organization Address [facility] Co de Phone Number [facility] [address] [address] * (ABNORMAL) ED CHEMISTRY LABS(NA,K,CL,CO2,GLU,CREAT,CA-IONIZED,ANION GAP) (11/30/2023 7:02 PM CDT) Sodium 140 135 - 148 mmol/L [facility] Chloride 111(H) 92 - 108 mmol/L [facility] AnGap 7(L) 8 - 16 mmol/L [facility] Glucose 99 70 - 100 mg/dL [facility] ICA, Actual 4.40 4.40 - 5.20 mg/dL [facility] ICA, pH Corrected 4.50 4.40 - 5.20 mg/dL [facility] Creatinine 0.95 0.50 - 1.00 mg/dL [facility] BICARB 22 22 - 26 mEq/L [facility] eGFR (2020 CKD-EPI) 68 >=60 ml/min/1.7 3m2 [facility] Comment: The estimated glomerular filtration rate (eGFR) was calculated using the CKD-EPI 2020 creatinine equation, which does not include race as a factor. This equation is validated in individuals 18 years of age and older, and eGFR is normalized to a body surface area of 1.73m^2. Potassium 4.5 3.5 - 5.3 mmol/L [facility] Blood 11/30/2023 7:02 PM CDT 11/30/2023 7:09 PM CDT Jian Howell MD LABORATORY Final Result Performing Organization Address City/[facility]/ZIP Co de Phone Number [facility] [address] [address] * (ABNORMAL) ED HEMOGLOBIN TOTAL (ED ONLY) (11/30/2023 7:02 PM CDT) Pathologist [facility] Hgb 10.2(L) 11.5 - 15.7 g/dL [facility] Blood 11/30/2023 7:02 PM CDT 11/30/2023 7:09 PM CDT Jian Howell MD LABORATORY Final Result Performing Organization Address City/[facility] Co de Phone Number [facility] [address] [address] * PRECAUTIONARY TUBE (11/30/2023 7:02 PM CDT) Pathologist [facility] Prec Tube Precautionary Blood Bank Specimen Received. [facility] Blood 11/30/2023 7:02 PM CDT 11/30/2023 7:17 PM CDT Jian Howell MD LAB TRANSFUSION SERVICES Final Result Performing Organization Address [facility] Co de Phone Number [address] [address] * (ABNORMAL) PANEL HEPATIC FUNCTION (11/30/2023 7:02 PM CDT) Total Protein 6.0(L) 6.4 - 8.3 g/dL [facility] Albumin 4.2 3.8 - 5.1 g/dL [facility] Bili Total <0.2 <=1.2 mg/dL [facility] Bili Direct na <=0.3 mg/dL [facility] Comment:BILID < 0.2. Accurac y of result suspect due to hemolysis. Alk Phos 104 35 - 104 IU/L [facility] Comment:No reference range e stablished for patients <18 years old. ALT (SGPT) na <=33 IU/L [facility] Comment:ALT = 8. Accuracy of result suspect due to hemolysis. AST(SGOT) na 5 - 40 IU/L [facility] Comment:AST = 20. Accuracy o f result suspect due to hemolysis. Blood 11/30/2023 7:02 PM CDT 11/30/2023 7:17 PM CDT Jian Howell MD LABORATORY Final Result Performing Organization Address City/[facility]/ZIP Co de Phone Number [facility] [address] [address] * LACTATE (LACTIC ACID) (11/30/2023 7:02 PM CDT) Lactate 1.5 0.7 - 2.1 mmol/L [facility] Blood 11/30/2023 7:02 PM CDT 11/30/2023 7:09 PM CDT Narrative [facility] - 11/30/2023 7:16 PM CDT Send specimen on ice! Jian Howell MD LABORATORY Final Result Performing Organization Address City/[facility]/ZIP Co de Phone Number [facility] [address] [address] * (ABNORMAL) BLOOD GASES (11/30/2023 7:02 PM CDT) PH Juvenal 7.40 7.32 - 7.42 [facility] PCO2 Juvenal 38(L) 41 - 51 mmHG [facility] PO2 Juvenal 39 25 - 40 mmHG [facility] Bicarb Juvenal 23(L) 24 - 28 mEq/L [facility] O2 Sat Juvenal 73 % [facility] Base Exc Juvenal -1.2 -10.0 - 2.0 mmol/L [facility] Blood Venous 11/30/2023 7:02 PM CDT 11/30/2023 7:09 PM CDT us Jian Howell MD LABORATORY Final Result [facility] [address] [address] * FIBRINOGEN (11/30/2023 7:02 PM CDT) Fibrinogen 222 200 - 400 mg/dL [facility] Blood 11/30/2023 7:02 PM CDT 11/30/2023 7:17 PM CDT us Jian Howell MD LABORATORY Final Result Performing Organization Address [facility]/ZIP Co de Phone Number [facility] [address] [address] * ETHANOL (ETOH) LEVEL, BLOOD (11/30/2023 7:02 PM CDT) Ethanol Negative Negative g/dL [facility] Blood 11/30/2023 7:02 PM CDT 11/30/2023 7:17 PM CDT Jian Howell MD LABORATORY Final Result Performing Organization Address [facility] Co de Phone Number [facility] [address] [address] * CK, TOTAL (11/30/2023 7:02 PM CDT) CK na 26 - 192 [facility] Comment:CK = 82. Accuracy of result suspect due to hemolysis. Blood 11/30/2023 7:02 PM CDT 11/30/2023 7:54 PM CDT us Gonzalez Engle MD LABORATORY F inal Result Performing Organization Address City/[facility]/ZIP Co de Phone Number [facility] [address] [address] * PTT (APTT) (11/30/2023 7:02 PM CDT) APTT 31.0 25.0 - 37.0 sec [facility] Blood 11/30/2023 7:02 PM CDT 11/30/2023 7:17 PM CDT us Jian Howell MD LABORATORY Final Result [facility] [address] [address] * ED US CRITICAL CARE (11/30/2023 6:59 [...] PM Jian Howell MD RAD ED ULT Final Result * XR LOWER EXTREMITY OUTSIDE FILMS (11/30/2023 4:55 PM CDT) Only the most recent of5 resultswithin the time period is included. Narrative User, [id number] - 12/01/2023 9:32 AM CDT Outside Film Only us Outside Provider RAD OUTSIDE FILMS Final Result * PANEL LIPID (03/19/2009 5:24 AM VIRTUAL ASSISTANT) Cholesterol 167 0 - 200 mg/dL [facility] Triglyceride 73 10 - 160 mg/dL [facility] HDL 53 40 - 75 mg/dL [facility] Blood specimen (specimen) 03/19/2009 5:24 AM VIRTUAL ASSISTANT 03/19/2009 5:59 AM VIRTUAL ASSISTANT Narrative [facility] - 03/19/2009 7:19 AM VIRTUAL ASSISTANT Fasting: Yes us Joaquin Lozano MD LABORATORY Final Result [facility] [address] [place] [address] from Last 3 Months or Most Recently Relevant to Health Maintenance [facility] MEDICA MEDICARE Advance Directives For more information, please contact: [phone] * DNR (Latest Code Status on File) [...] Status With Whom? Not discussed Care Teams Editor Continuity And Script Relationship Specialty Start Date End Date Pcp, [place] [id number] PCP - General 03/18/09
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
--- OUTSIDE RECORDS SUMMARY | 2024-01-02 10:14 | XMS_ITS | Encounter Summary ---
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 or way to walk. Your doctor will tell you to use either a xwz-nuyusk-gevvmny gait (which means putting no weight on one leg and foot). Guidelines for Use Remove throw rugs, electrical cords, and anything else that may cause you to fall. Arrange your household to keep the items you need handy. Keep everything else out of the way. Use a backpack, liset pack, apron, or pockets to carry things so you keep your hands free. Tdy-meifrs-fxgxxgo method Hold your injured (weaker) foot off the floor. Lift the walker (roll it if you???re using a wheeled walker). Move the walker forward about 12 inches. Support your weight on your hands. Swing your good (stronger) foot forward to the center of the walker. Aos-Kuzavf-Iouerxx Follow-Up Make a follow-up appointment as directed by our staff. ?? [phone] [employer], [address] [place] [address], [place] [id number]. All rights reserved. This information is not intended as a substitute for professional medical care. Always follow your healthcare professional's instructions. Using Crutches: Oif-Hvhigt-Ifpbeky A healthy leg can bear your body [...] crutches to begin the next step. ?? [phone] [employer], [address] [place] [address], [place] [address]. All rights reserved. This information is not [...] hand as you do so. ?? [employer], [address] [place] [address], [place] [address]. All rights reserved. This information is not [...] Where can I learn more? [facility] https://www.nhsinform.scot/hluvj-moo-bpqiwdxqyz/fzejkoeby-idn-xqgnpnb-aids/walki ng-aids/using-crutches [facility] https://www.bettersafercare.ashley.gov.au/sites/default/files/2018-08/Using%20crutc hes.pdf Last Reviewed Date 2020-03-08 [...] or approved for treating a specific patient. [employer] and its affiliates disclaim any warranty or liability relating to this information or the use thereof. The use of this information is governed by the Terms of Use, available at https://www.[employer]en/know/qphlamud-onwxjqlwihmyo-bbafw Copyright Copyright ?? 2021 [employer] and its affiliates and/or licensors. All rights [...] Summary Shift Summary yesterday pt restarted on DELIVERER FOOD meds and primary nurse giving narcotics today [...] Labile and pleasant Family Behavior: not present Cosigned by Luda Perez, RN at 12/03/2023 1:22 PM CDT Associated attestation - Luda Perez RN - 12/03/2023 1:22 PM CDT My signature attests that I was present for patient assessment and administration.I saw the patientwith the switcher, and discussed with the switcher and agree with the switcher's findings and plan as documented in the switcher's note. Luda Perez 12/03/2023 0915 * Nursing Assessment - Ramon Crump RN - 12/03/2023 3:43 AM CDT Nursing Assessment Head to Toe Head to Toe Assessment Shift Summary Shift Summary [id number] Pt is alert, oriented x4, able to [...] came bedside. MAR updated to reflect pt's DELIVERER FOOD medication scheduled. New IV placed to R PIV this AM. Pt has been calling for Q2 IV dilaudid. Intermittently tearful this shift d/t pain. Pain seems to be better managed by 1600. LLE elevated on pillows. Assist of 1 to bathroom, pt has preferred to have external female catheter in place d/t anxiety over pain with movement. This policy writer typist had discussion with pt about removing purewick [...] primary nurse and message sent to pharmacy. Cosigned by Luda Perez, JENNA at 12/02/2023 11:50 AM CDT Associated attestation - Luda Perez, JENNA - 12/02/2023 11:50 AM CDT My signature attests that I was present for patient assessment and administration. I saw the patient with the switcher, and discussed with the switcher and agree with the switcher's findings and plan as documented in the switcher's note. Luda Perez, JENNA, 12/02/2023 11:49 AM [...] CDT COMPARTMENT SYNDROME SCREEN PGY [address] [facility] : 1960 Sex: female Admit Date & [...] dose of IV Dilaudid 1 mg now. Pualette Martin PA-C, 12/01/2023 6:03 PM * Compartment [...] female D: Ramona Sanders was admitted to [facility] from PACU at 1315 for Inadequate pain control Closed fracture fibula, head, left, initial encounter Traumatic compartment syndrome of left lower extremity, initial encounter ([facility]) . Patient: alert, person, place, time, situation. 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 no Pine numb or detached from others, activities, or your surroundings? no Interventions: Completed: none, neg screen Assessment : Ramona Sanders is a 63 y.o. female with history of T2DM, anemia, chronic back and abdominal pain, depression transferred from [facility] that got out of car while it [...] Varela MD - 12/01/2023 6:52 AM CDT [facility] Immediate Post Operative Note Note written: Day of Surgery Patient Name: Ramona Sanders ( ) OR Date: 12/01/2023614 Procedure(s) and Anesthesia Type: * FASCIOTOMY, Left LOWER EXTREMITY - General Pre-op History and Physical reviewed. Pre-Op Diagnosis Codes: * Traumatic compartment syndrome of left lower extremity, initial encounter ([facility]) [T79.A22A] Post-Op Diagnosis Codes: * Traumatic compartment syndrome of left lower extremity, initial encounter ([facility]) [T79.A22A] Surgeons and Role: * Lotus Varela [...] concerns. Azra Obrien, Orthopedic Surgery PGY-3 * Azra Clinton MD - 11/30/2023 11:00 PM CDT Evaluation [...] a 63 yo female who presents to [facility] as a transfer after she ran over [...] female presents to the stabilization room from [place] emergency department as an outside hospital transfer, [...] 11/30/231912 36.8 ??C (98.2 ??F) Temp src 11/30/233 Oral SpO2 11/30/231902 96 % Weight 11/30/231912 [...] st Contact Info) Description 01/06/2024 11:40 AM BIOLOGICAL TECHNICAL OFFICER [facility] [address] [address] Lotus Varela MD [address] [place] [phone] Scheduled Discharge Disposition: Discharged to home or [...] CDT) Phosphorus 3.0 2.5 - 4.5 mg/dL [facility] Blood 12/03/2023 4:29 AM CDT 12/03/2023 5:58 AM CDT us Kory Kimball MD LABORATORY Final Result [facility] [address] [address] * MAGNESIUM (12/03/2023 4:29 AM CDT) Magnesium 2.1 1.6 - 2.4 mg/dL [facility] Blood 12/03/2023 4:29 AM CDT 12/03/2023 5:58 AM CDT us Kory Kimball MD LABORATORY Final Result [facility] [address] [address] * (ABNORMAL) PANEL BASIC METABOLIC (BMP) (12/03/2023 4:29 AM CDT) Sodium 143 135 - 148 mmol/L [facility] Potassium 3.5 3.5 - 5.3 mmol/L [facility] Chloride 110(H) 92 - 108 mmol/L [facility] CO2 25 22 - 30 mmol/L [facility] Glucose 130(H) 70 - 100 mg/dL [facility] BUN 14 8 - 23 mg/dL [facility] Creatinine 0.66 0.50 - 1.00 mg/dL [facility] Calcium 8.5(L) 8.8 - 10.2 mg/dL [facility] AnGap 8 8 - 16 mmol/L [facility] eGFR (2020 CKD-EPI) 100 >=60 ml/min/1.7 3m2 [facility] Comment: The estimated glomerular [...] CDT Kory Kimball MD LABORATORY Final Result [facility] [address] [place] [address] * (ABNORMAL) CBC WITH PLTS/AUTO DIFF (12/03/2023 4:29 AM CDT) WBC 5.82 4.00 - 10.00 k/cmm [facility] RBC 3.61(L) 3.90 - 5.20 m/cmm [facility] Hgb 9.0(L) 11.5 - 15.7 g/dL [facility] Hematocrit 29.6(L) 34.0 - 45.0 % [facility] MCV 82.0 80.0 - 100.0 fL [facility] MCH 24.9(L) 25.0 - 32.0 pg [facility] MCHC 30.4(L) 31.0 - 36.0 g/dL [facility] RDW 17.2(H) 11.5 - 14.5 % [facility] Plt 192 150 - 400 k/cmm [facility] MPV 9.4 6.5 - 12.5 fL [facility] Automated Abs Neutrophil 3.14 1.70 - 6.50 k/cmm [facility] Comment:Preliminary ANC, Fin al Result to Follow Abs Immature Granulocyte 0.02 0.00 - 0.09 k/cmm [facility] Comment:The Immature Granulo cyte Absolute count contains metamyelocytes and myelocytes. Abs Neutrophil 3.14 1.70 - 6.50 k/cmm [facility] Abs Lymphocyte 1.89 0.80 - 4.00 k/cmm [facility] Abs Monocyte 0.47 0.20 - 1.00 k/cmm [facility] Abs Eosinophil 0.28 0.00 - 0.60 k/cmm [facility] Abs Basophil 0.02 0.00 - 0.20 k/cmm [facility] Blood 12/03/2023 4:29 AM CDT 12/03/2023 5:58 AM CDT us Kory Kimball MD LABORATORY Edited Result - Final [facility] [address] [address] * (ABNORMAL) PANEL BASIC METABOLIC (BMP) (12/02/2023 4:42 AM CDT) AnGap 9 8 - 16 mmol/L [facility] Creatinine 0.73 0.50 - 1.00 mg/dL [facility] Calcium 8.5(L) 8.8 - 10.2 mg/dL [facility] eGFR (2020 CKD-EPI) 94 >=60 ml/min/1.7 3m2 [facility] Comment: The estimated glomerular filtration rate (eGFR) was calculated using the CKD-EPI 2020 creatinine equation, which does not include race as a factor. This equation is validated in individuals 18 years of age and older, and eGFR is normalized to a body surface area of 1.73m^2. BUN 11 8 - 23 mg/dL [facility] Sodium 141 135 - 148 mmol/L [facility] CO2 24 22 - 30 mmol/L [facility] Glucose 120(H) 70 - 100 mg/dL [facility] Chloride 108 92 - 108 mmol/L [facility] Potassium 3.5 3.5 - 5.3 mmol/L [facility] Blood 12/02/2023 4:42 AM CDT 12/02/2023 5:19 AM CDT us Joaquin Snow MD LABORATORY Final Result [facility] [address] [address] * (ABNORMAL) CBC WITH PLTS/AUTO DIFF (12/02/2023 4:42 AM CDT) WBC 6.95 4.00 - 10.00 k/cmm [facility] RBC 3.71(L) 3.90 - 5.20 m/cmm [facility] Hgb 9.4(L) 11.5 - 15.7 g/dL [facility] Hematocrit 31.1(L) 34.0 - 45.0 % [facility] MCV 83.8 80.0 - 100.0 fL [facility] MCH 25.3 25.0 - 32.0 pg [facility] MCHC 30.2(L) 31.0 - 36.0 g/dL [facility] RDW 17.0(H) 11.5 - 14.5 % [facility] Plt 197 150 - 400 k/cmm [facility] MPV 9.0 6.5 - 12.5 fL [facility] NRBC 0.3(H) 0.0 - 0.0 /100WBC [facility] Automated Abs Neutrophil 3.98 1.70 - 6.50 k/cmm [facility] Comment:Preliminary ANC, Fin al Result to Follow Abs Immature Granulocyte 0.03 0.00 - 0.09 k/cmm [facility] Comment:The Immature Granulo cyte Absolute count contains metamyelocytes and myelocytes. Abs Neutrophil 3.98 1.70 - 6.50 k/cmm [facility] Abs Lymphocyte 2.25 0.80 - 4.00 k/cmm [facility] Abs Monocyte 0.45 0.20 - 1.00 k/cmm [facility] Abs Eosinophil 0.21 0.00 - 0.60 k/cmm [facility] Abs Basophil 0.03 0.00 - 0.20 k/cmm [facility] Blood 12/02/2023 4:42 AM CDT 12/02/2023 5:19 AM CDT us Joaquin Snow MD LABORATORY Edited Resul t - Final Performing Organization Address City/[facility]/ZIP Co de Phone Number [place] [phone] * VITAMIN [id number] TO MMA (12/02/2023 4:42 AM CDT) B12 340 211 - 946 pg/mL [facility] Blood 12/02/2023 4:42 AM CDT 12/02/2023 5:19 AM CDT Joaquin Snow MD LABORATORY Final Result Performing Organization Address [facility] Co de Phone Number [address] [address] * (ABNORMAL) TRANSFERRIN (INCLUDES TIBC) (12/02/2023 4:42 AM CDT) Transferrin 230 200 - 360 mg/dL [facility] IBC 343 298 - 536 mcg/dL [facility] Iron Saturation Percent 6(L) 20 - 50 % [facility] Blood 12/02/2023 4:42 AM CDT 12/02/2023 5:19 AM CDT us Joaquin Snow MD LABORATORY Final Result Performing Organization Address City/[facility] Co de Phone Number [address] [address] * (ABNORMAL) IRON (12/02/2023 4:42 AM CDT) Iron 19(L) 35 - 145 mcg/dL [facility] Blood 12/02/2023 4:42 AM CDT 12/02/2023 5:19 AM CDT us Joaquin Snow MD LABORATORY Final Result [facility] [address] [address] * FERRITIN (12/02/2023 4:42 AM CDT) Ferritin 18.0 13.0 - 150.0 ng/mL [facility] Comment: Test Performed by: [facility] [address] [place] [address] Blood 12/02/2023 4:42 AM CDT 12/02/2023 5:19 AM CDT Joaquin Snow MD LABORATORY Final Result Performing Organization Address [facility] Co de Phone Number [facility] [address] [address] * XR SHOULDER RT 2/3V AP/GRASH/Y* (12/01/2023 [...] Ronald Nunn Pema Miranda PA-C RAD XRAY Final R [...] POC Glucose 108(H) 70 - 100 mg/dL [facility] Blood 12/01/2023 9:07 AM CDT Gonzalez Gomez MD LABORATORY F inal Result [facility] [address] [place] [address], [place] * (ABNORMAL) POC GLUCOSE (12/01/2023 6:22 AM CDT) POC Glucose 101(H) 70 - 100 mg/dL [facility] Blood 12/01/2023 6:22 AM CDT us Gonzalez Gomez MD LABORATORY F inal Result [facility] [address] [place] [address], [place] * CT LOW EXTREMITY LEFT NO [...] apex. Reading Radiologist: Lester Graves us Gonzalez Gomez MD RAD CT BODY F inal Result [...] Lester Graves Gonzalez Gomez MD RAD XRAY F inal Result * [...] Lester Graves Gonzalez Gomez MD RAD XRAY F inal Result * ED EKG (12-LEAD) (11/30/2023 7:09 PM CDT) 11/30/2023 7:09 PM CDT Impressions [facility] CVIS EKG ORDERS - 11/30/2023 7:09 PM CDT SINUS RHYTHM POSSIBLE RIGHT ATRIAL ENLARGEMENT [0.25mV P-WAVE] BORDERLINE ECG P-R Interval 176 ms QRS Interval 95 ms QT Interval 390 ms QTC Interval 434 ms P [place] 78 QRS [place] 77 T Wave [place] 76 Narrative Procedure Note Greg Posey MD - 12/01/2023 IMPRESSION SINUS RHYTHM POSSIBLE RIGHT ATRIAL ENLARGEMENT [0.25mV P-WAVE] BORDERLINE ECG P-R Interval 176 ms QRS Interval 95 ms QT Interval 390 ms QTC Interval 434 ms P [place] 78 QRS [place] 77 T Wave [place] 76 us Jian Howell MD EKG Final Result Performing Organization Address City/[facility] Co de Phone Number [facility] CVIS EKG ORDERS * CK, TOTAL (11/30/2023 7:02 PM CDT) CK na 26 - 192 [facility] Comment:CK = 82. Accuracy of result suspect due to hemolysis. Blood 11/30/2023 7:02 PM CDT 11/30/2023 7:54 PM CDT us Gonzalez Gomez MD LABORATORY F inal Result Performing Organization Address [facility] Co de Phone Number [facility] [address] [address] * EXTRA TUBE - SST (11/30/2023 7:02 PM CDT) Pathologist [facility] SST TUBE Stored [facility] Comment:SST tubes (Serum Sep arator) are stored in the lab for 3 days from the collection date. Blood 11/30/2023 7:02 PM CDT 11/30/2023 7:09 PM CDT us Jian Howell MD LABORATORY Final Result Performing Organization Address [facility] Co de Phone Number [facility] [address] [address] * HS TROPONIN (11/30/2023 7:02 PM CDT) Pathologist [facility] HS Troponin I <3 <=14 ng/L [facility] Blood 11/30/2023 7:02 PM CDT 11/30/2023 7:08 PM CDT Narrative [facility] - 11/30/2023 7:34 PM CDT First Occurrence of the Troponin order is to be drawn Stat by Nursing staff on the unit. us Jian Howell MD LABORATORY Final Result Performing Organization Address City/[facility] Co de Phone Number [facility] [address] [address] * ETHANOL (ETOH) LEVEL, BLOOD (11/30/2023 7:02 PM CDT) Pathologist [facility] Ethanol Negative Negative g/dL [facility] Blood 11/30/2023 7:02 PM CDT 11/30/2023 7:17 PM CDT us Jian Howell MD LABORATORY Final Result Performing Organization Address [facility] Co de Phone Number [facility] [address] [address] * PTT (APTT) (11/30/2023 7:02 PM CDT) [facility] APTT 31.0 25.0 - 37.0 sec [facility] Blood 11/30/2023 7:02 PM CDT 11/30/2023 7:17 PM CDT us Jian Howell MD LABORATORY Final Result Performing Organization Address [facility] Co de Phone Number [address] [address] * ED INR (11/30/2023 7:02 PM CDT) [facility] ED INR 1.0 0.8 - 1.1 [facility] Comment: Warfarin Therapeutic Range: Standard Intensity: 2.0 - 3.0 High Intensity: 2.5 - 3.5 This is a rapid INR screening test which uses whole blood; results may infrequently differ from plasma INR results. If medication adjustments/dosing are required a PT/INR test ([id number]) should be ordered and performed in the main laboratory. Blood 11/30/2023 7:02 PM CDT 11/30/2023 7:08 PM CDT us Jian Howell MD LABORATORY Final Result Performing Organization Address [facility] Co de Phone Number [facility] [address] [address] * PRECAUTIONARY TUBE (11/30/2023 7:02 PM CDT) Pathologist [facility] Prec Tube Precautionary Blood Bank Specimen Received. [facility] Blood 11/30/2023 7:02 PM CDT 11/30/2023 7:17 PM CDT us Jian Howell MD LAB TRANSFUSION SERVICES Final Result Performing Organization Address City/[facility]/ZIP Co de Phone Number [facility] [address] [address] * LACTATE (LACTIC ACID) (11/30/2023 7:02 PM CDT) [facility] Lactate 1.5 0.7 - 2.1 mmol/L [facility] Blood 11/30/2023 7:02 PM CDT 11/30/2023 7:09 PM CDT Narrative [facility] - 11/30/2023 7:16 PM CDT Send specimen on ice! us Jian Howell MD LABORATORY Final Result Performing Organization Address City/[facility]/ZIP Co de Phone Number [facility] [address] [address] * FIBRINOGEN (11/30/2023 7:02 PM CDT) [facility] Fibrinogen 222 200 - 400 mg/dL [facility] Blood 11/30/2023 7:02 PM CDT 11/30/2023 7:17 PM CDT us Jian Howell MD LABORATORY Final Result [facility] [address] [address] * (ABNORMAL) PANEL HEPATIC FUNCTION (11/30/2023 7:02 PM CDT) [facility] Total Protein 6.0(L) 6.4 - 8.3 g/dL [facility] Albumin 4.2 3.8 - 5.1 g/dL [facility] Bili Total <0.2 <=1.2 mg/dL [facility] Bili Direct na <=0.3 mg/dL [facility] Comment:BILID < 0.2. Accurac y of result suspect due to hemolysis. Alk Phos 104 35 - 104 IU/L [facility] Comment:No reference range e stablished for patients <18 years old. ALT (SGPT) na <=33 IU/L [facility] Comment:ALT = 8. Accuracy of result suspect due to hemolysis. AST(SGOT) na 5 - 40 IU/L [facility] Comment:AST = 20. Accuracy o f result suspect due to hemolysis. Blood 11/30/2023 7:02 PM CDT 11/30/2023 7:17 PM CDT Jian Howell MD LABORATORY Final Result Performing Organization Address City/[facility]/ZIP Co de Phone Number [facility] [address] [address] * (ABNORMAL) ED HEMOGLOBIN TOTAL (ED ONLY) (11/30/2023 7:02 PM CDT) Hgb 10.2(L) 11.5 - 15.7 g/dL [facility] Blood 11/30/2023 7:02 PM CDT 11/30/2023 7:09 PM CDT Jian Howell MD LABORATORY Final Result Performing Organization Address City/[facility]/ZIP Co de Phone Number [facility] [address] [address] * (ABNORMAL) ED CHEMISTRY LABS(NA,K,CL,CO2,GLU,CREAT,CA-IONIZED,ANION GAP) (11/30/2023 7:02 PM CDT) Sodium 140 135 - 148 mmol/L [facility] Chloride 111(H) 92 - 108 mmol/L [facility] AnGap 7(L) 8 - 16 mmol/L [facility] Glucose 99 70 - 100 mg/dL [facility] ICA, Actual 4.40 4.40 - 5.20 mg/dL [facility] ICA, pH Corrected 4.50 4.40 - 5.20 mg/dL [facility] Creatinine 0.95 0.50 - 1.00 mg/dL [facility] BICARB 22 22 - 26 mEq/L [facility] eGFR (2020 CKD-EPI) 68 >=60 ml/min/1.7 3m2 [facility] Comment: The estimated glomerular filtration rate (eGFR) was calculated using the CKD-EPI 2020 creatinine equation, which does not include race as a factor. This equation is validated in individuals 18 years of age and older, and eGFR is normalized to a body surface area of 1.73m^2. Potassium 4.5 3.5 - 5.3 mmol/L [facility] Blood 11/30/2023 7:02 PM CDT 11/30/2023 7:09 PM CDT us Jian Howell MD LABORATORY Final Result [facility] [address] [place], [place] [phone] * (ABNORMAL) CBC WITH PLTS/AUTO DIFF (11/30/2023 7:02 PM CDT) WBC 9.81 4.00 - 10.00 k/cmm [facility] RBC 3.98 3.90 - 5.20 m/cmm [facility] Hgb 10.1(L) 11.5 - 15.7 g/dL [facility] Hematocrit 32.6(L) 34.0 - 45.0 % [facility] MCV 81.9 80.0 - 100.0 fL [facility] MCH 25.4 25.0 - 32.0 pg [facility] MCHC 31.0 31.0 - 36.0 g/dL [facility] RDW 16.9(H) 11.5 - 14.5 % [facility] Plt 233 150 - 400 k/cmm [facility] MPV 9.1 6.5 - 12.5 fL [facility] Automated Abs Neutrophil 6.22 1.70 - 6.50 k/cmm [facility] Comment:Preliminary ANC, Fin al Result to Follow Abs Immature Granulocyte 0.03 0.00 - 0.09 k/cmm [facility] Comment:The Immature Granulo cyte Absolute count contains metamyelocytes and myelocytes. Abs Neutrophil 6.22 1.70 - 6.50 k/cmm [facility] Abs Lymphocyte 2.73 0.80 - 4.00 k/cmm [facility] Abs Monocyte 0.49 0.20 - 1.00 k/cmm [facility] Abs Eosinophil 0.30 0.00 - 0.60 k/cmm [facility] Abs Basophil 0.04 0.00 - 0.20 k/cmm [facility] Blood 11/30/2023 7:02 PM CDT 11/30/2023 7:16 PM CDT Jian Howell MD LABORATORY Edited Result - Final Performing Organization Address [facility]/ZIP Co de Phone Number [address] [address] * (ABNORMAL) BLOOD GASES (11/30/2023 7:02 PM CDT) PH Juvenal 7.40 7.32 - 7.42 [facility] PCO2 Juvenal 38(L) 41 - 51 mmHG [facility] PO2 Juvenal 39 25 - 40 mmHG [facility] Bicarb Juvenal 23(L) 24 - 28 mEq/L [facility] O2 Sat Juvenal 73 % [facility] Base Exc Juvenal -1.2 -10.0 - 2.0 mmol/L [facility] Blood Venous 11/30/2023 7:02 PM CDT 11/30/2023 7:09 PM CDT us Jian Howell MD LABORATORY Final Result Performing Organization Address [facility]/ZIP Co de Phone Number [facility] [address] [address] * ED US CRITICAL CARE (11/30/2023 6:59 [...] Howell MD RAD ED ULT Final Result documented in this encounter Visit Diagnoses Diagnosis [...] Provider: Yuliana Carpenter RN - Reason: Patient refused)2018 (Not Given (removes Due time) - Provider: [...] Kobi Dean RN)[phone] (Given - Provider: Yuliana Carpenter, JENNA) HYDROmorphone PF (DILAUDID) 1 mg/mL injection 2 [...] Group 2: DC MED REC [facility] Discharge Date: 12/03/2023, Discharge Location: Home, Anticipated [...] Procedure documented in this encounter Care Teams Silk Trimmer Relationship Specialty Start Date End Date Pcp, [place] [address] PCP - General 03/18/09 documented as of this encounter
--- OUTSIDE RECORDS SUMMARY | 2024-01-02 10:14 | XMS_ITS | Encounter Summary ---
Author Organization [facility] Address [address] [facility] [place] [address] Phone Care Team Providers Care Swimming Professor Name Role Phone Pcp, No Primary Care Provider Unavailabl e Reason for Referral * Consult/Test/Treat (Routine) - New Request Specialty Diagnoses / Procedures Referred By Contac t Referred To Contact Physical Therapy / PHYSICAL THERAPY Diagnoses Traumatic compartment syndrome of left lower extremity, initial encounter (CMS) Lotus Varela MD [facility] [address] [address] Phone: tel: fax: Referral ID Status Reason Start Date Expiration Date V isits Requested Visits Authorized [id number] New Request 12/15/2023 12/14/2024 1 1 ER COORDINATOR Reason for Visit * Reason Comments Post Op Left fasciotomy Encounter Details Date Type Department Care Team (Late st Contact Info) Description 12/15/2023 1:00 PM HELPER COORDINATOR Office [facility] [address] [address] Lotus Varela MD [address] [id number] Traumatic compartment syndrome of left lower extremity, initial encounter (CMS) (Primary Dx) Discharge Disposition: Discharged to home [...] on file Legal Sex Female 6:57 PM HELPER COORDINATOR Gender Identity Not on file Sexual Orientation Not on file documented as of this encounter Patient Instructions * Patient Instructions* Yaa Daigle ATC - 12/15/2023 1:00 PM HELPER COORDINATOR You may shower; let water gently run over PWB with crutches and ankle brace in tennis shoe once you have done PT gait training. ER COORDINATOR documented in this encounter Progress Notes * Yaa Daigle ATC - 12/15/2023 1:00 PM CST Images from the original note were not included. [facility] [place] [address] Orthopaedic Surgery Clinic DOS: 12/01/2023 FASCIOTOMY, Left LOWER EXTREMITY CHIEF CONCERN: Post op HISTORY OF PRESENT ILLNESS: Ramona Sanders is a pleasant 63 y.o. female accompanied by herself s/p left lower extremity fasciotomy. She denies any major pain but notes a throbbing sensation at the lateral incision in the center. Posterior slab splint is intact though she notes she has unwrapped and readjusted it daily. She did present to the [facility] ED on 12/09 for concern of infection. She was placed on an antibiotic for 72 hours. Patient notes overall she feels fine just deconditioned. She notes she has lost weight but is also recently on ozempic for control of her type 2 diabetes. She ambulates with crutches and moderate weight bearing on the LLE as indicated by wear of her splint and observation by me macy edouard. PAST MEDICAL HISTORY: Past Medical History: Diagnosis Date Restless leg syndrome PAST SURGICAL HISTORY: Past Surgical History: Procedure Laterality Date FASCIOTOMY, LOWER EXTREMITY Left 12/01/2023 Procedure: FASCIOTOMY, LOWER EXTREMITY; Laterality: Left; Surgeon: Lotus Varela MD; Service: Orthopedics VAC SPONGE APPLY Left 12/01/2023 Procedure: VAC SPONGE APPLY; Laterality: Left; Surgeon: Lotus Varela MD; Service: Orthopedics SOCIAL HISTORY: Social Determinants of Health Tobacco Use: High Risk (12/01/2023) Patient History Smoking Tobacco Use: Every Day Smokeless Tobacco Use: Unknown Passive Exposure: Not on file Alcohol Use: Not on file Financial Resource Strain: Low Risk (12/01/2023) Overall Financial Resource Strain (CARDIA) Difficulty of Paying Living Expenses: Not hard at all Food Insecurity: No Food Insecurity (12/01/2023) Hunger Vital Sign Worried About Running Out of Food in the Last Year: Never true Ran Out of Food in the Last Year: Never true Transportation Needs: No Transportation Needs (12/01/2023) PRAPARE - Transportation Lack of Transportation (Medical): No Lack of Transportation (Non-Medical): No Physical Activity: Not on file Stress: Not on file Social Connections: Unknown (01/31/2021) Received from [facility] Social Connections Frequency of Communication with Friends and Family: Not on file Intimate Partner Violence: Not At Risk (12/01/2023) Humiliation, Afraid, Rape, and Kick questionnaire Fear of Current or Ex-Partner: No Emotionally Abused: No Physically Abused: No Sexually Abused: No Depression: Not on file Housing Stability: Low Risk (12/01/2023) Housing Stability Housing Status and Stability: 3 - I have housing REVIEW OF SYSTEMS: A complete ROS was conducted and was negative other than as in the HPI above. PHYSICAL EXAM: Estimated body mass index is 24.09 kg/m?? as calculated from the following: Height as of 12/01/23: 1.753 m (5' 9). Weight as of 12/01/23: 74 kg (163 lb 2.3 oz). General: Alert. Oriented to person, place, and time. Appears well-developed and well-nourished. No distress. Head: Normocephalic and atraumatic. Eyes: EOM are normal. Resp: Effort normal. Skin: Warm and well-perfused. Psych: Normal mood and affect. Musculoskeletal: Observation: Mild swelling and ecchymosis of the lateral side compared to the medial side. Incisions are clean dry and intact. Lateral incision does have redness along it but it not warm to the touch. ROM- ankle neutral DF to 25 PF Strength: 5/5 with resisted plantar and dorsiflexion Sensation: LLE intact to light touch DP, SP, sural, saphenous, tibial distributions IMAGING: None obtained ASSESSMENT/PLAN: Ramona Sanders is a 63 y.o. female 2 weeks s/p left lower extremity fasciotomy. Sutures left in due to concern for fragility of the skin. Noted the patient can shower as normal letting water run over the leg. Placed patient in medial/lateral ankle stabilizing brace and indicated she can begin partialweight bearing once she has done gait training with physical therapy. Patient declined completing gait training today due to time constraints. She indicated she will complete when she comes in for follow up. Activity: partial weight bearing once gait training completed DVT PPX: as prescribed Medications: none Therapy: gait training orderd Referrals: none Imaging: none FOLLOW UP: Follow up in [address] Nichole Daigle, LAT 12/15/2023 15:23 I, Yaa Daigle, ATC, 12/15/2023 3:23 PM ATC, am personally scribing notes at the direction of Dr. Lotus Varela MD. Attending Clinic Note Agree with above documentation and plan for further care and follow-up. Lotus Varela MD, 12/16/2023 8:05 AM ER COORDINATOR ER COORDINATOR documented in this encounter Plan of Treatment Upcoming Encounters Date Type Department Care Team (Late st Contact Info) Description 01/06/2024 11:40 AM HELPER COORDINATOR Office [facility] [address] [address] Lotus Varela MD [address] [place] [phone] Scheduled Discharge Disposition: Discharged to home or self care Scheduled Referrals Name Type Priority Associated Diagnoses Orde r Schedule REFERRAL TO PHYSICAL THERAPY Referral Routine Traumatic compartment syndrome of left lower extremity, initial encounter ([facility]) Ordered: 12/15/2023 documented as of this encounter Visit Diagnoses Diagnosis Traumatic compartment syndrome of left lower extremity, initial encounter (CMS)- Primary documented in this encounter Care Teams Swimming Professor Relationship Specialty Start Date End Date Pcp, [place] [address] PCP - General 03/18/09 documented as of this encounter
--- OUTSIDE RECORDS SUMMARY | 2024-01-02 10:14 | XMS_ITS | Encounter Summary ---
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 extremity, initial encounter ([facility]) [T79.A22A] Post-Op Diagnosis Codes: * Traumatic compartment syndrome of left lower extremity, initial encounter ([facility]) [T79.A22A] Surgeons and Role: * Lotus Varela [...] Lotus Varela MD, 12/01/2023 8:11 AM * Azra Clinton MD - 12/01/2023 1:02 AM CDT Evaluation [...] call with questions or concerns. Azra Obrien, DO Orthopedic Surgery PGY-3 * Azra Clinton MD [...] a 63 yo female who presents to 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 Blood 12/03/2023 4:29 AM CDT 12/03/2023 5:58 AM CDT Kory Kimball MD LABORATORY Final Result Performing Organization Address [facility] Co de Phone Number [facility] [address] [address] * MAGNESIUM (12/03/2023 4:29 AM CDT) Magnesium 2.1 1.6 - 2.4 mg/dL [facility] Blood 12/03/2023 4:29 AM CDT 12/03/2023 5:58 AM CDT Kory Kimball MD LABORATORY Final Result Performing Organization Address City/[facility] Co de Phone Number [facility] [address] [address] * (ABNORMAL) PANEL BASIC METABOLIC (BMP) (12/03/2023 4:29 AM CDT) Sodium 143 135 - 148 mmol/L [facility] Potassium 3.5 3.5 - 5.3 mmol/L [facility] Chloride 110(H) 92 - 108 mmol/L [facility] CO2 25 22 - 30 mmol/L [facility] Glucose 130(H) 70 - 100 mg/dL [facility] BUN 14 8 - 23 mg/dL [facility] Creatinine 0.66 0.50 - 1.00 mg/dL [facility] Calcium 8.5(L) 8.8 - 10.2 mg/dL [facility] AnGap 8 8 - 16 mmol/L [facility] eGFR (2020 CKD-EPI) 100 >=60 ml/min/1.[address] [facility] Comment: The estimated glomerular filtration rate (eGFR) was calculated using the CKD-EPI 2020 creatinine equation, which does not include race as a factor. This equation is validated in individuals 18 years of age and older, and eGFR is normalized to a body surface area of 1.73m^2. Blood 12/03/2023 4:29 AM CDT 12/03/2023 5:58 AM CDT us Kory Kimball MD LABORATORY Final Result [facility] [address] [address] * (ABNORMAL) CBC WITH PLTS/AUTO DIFF (12/03/2023 4:29 AM CDT) WBC 5.82 4.00 - 10.00 k/cmm [facility] RBC 3.61(L) 3.90 - 5.20 m/cmm [facility] Hgb 9.0(L) 11.5 - 15.7 g/dL [facility] Hematocrit 29.6(L) 34.0 - 45.0 % [facility] MCV 82.0 80.0 - 100.[address] [facility] MCH 24.9(L) 25.0 - 32.[address] [facility] MCHC 30.4(L) 31.0 - 36.0 g/dL [facility] RDW 17.2(H) 11.5 - 14.5 % [facility] Plt 192 150 - 400 k/cmm [facility] MPV 9.4 6.5 - 12.[address] [facility] Automated Abs Neutrophil 3.14 1.70 - 6.50 k/cmm [facility] Comment:Preliminary ANC, Fin al Result to Follow Abs Immature Granulocyte 0.02 0.00 - 0.09 k/cmm [facility] Comment:The Immature Granulo cyte Absolute count contains metamyelocytes and myelocytes. Abs Neutrophil 3.14 1.70 - 6.50 k/cmm [facility] Abs Lymphocyte 1.89 0.80 - 4.00 k/cmm [facility] Abs Monocyte 0.47 0.20 - 1.00 k/cmm [facility] Abs Eosinophil 0.28 0.00 - 0.60 k/cmm [facility] Abs Basophil 0.02 0.00 - 0.20 k/cmm [facility] Blood 12/03/2023 4:29 AM CDT 12/03/2023 5:58 AM CDT us Kory Kimball MD LABORATORY Edited Result - Final Performing Organization Address City/[facility]/ZIP Co de Phone Number [facility] [address] [address] * (ABNORMAL) PANEL BASIC METABOLIC (BMP) (12/02/2023 4:42 AM CDT) AnGap 9 8 - 16 mmol/L [facility] Creatinine 0.73 0.50 - 1.00 mg/dL [facility] Calcium 8.5(L) 8.8 - 10.2 mg/dL [facility] eGFR (2020 CKD-EPI) 94 >=60 ml/min/1.[address] [facility] Comment: The estimated glomerular filtration rate (eGFR) was calculated using the CKD-EPI 2020 creatinine equation, which does not include race as a factor. This equation is validated in individuals 18 years of age and older, and eGFR is normalized to a body surface area of 1.73m^2. BUN 11 8 - 23 mg/dL [facility] Sodium 141 135 - 148 mmol/L [facility] CO2 24 22 - 30 mmol/L [facility] Glucose 120(H) 70 - 100 mg/dL [facility] Chloride 108 92 - 108 mmol/L [facility] Potassium 3.5 3.5 - 5.3 mmol/L [facility] Blood 12/02/2023 4:42 AM CDT 12/02/2023 5:19 AM CDT us Joaquin Snow MD LABORATORY Final Result [facility] [address] [address] * (ABNORMAL) CBC WITH PLTS/AUTO DIFF (12/02/2023 4:42 AM CDT) WBC 6.95 4.00 - 10.00 k/cmm [facility] RBC 3.71(L) 3.90 - 5.20 m/cmm [facility] Hgb 9.4(L) 11.5 - 15.7 g/dL [facility] Hematocrit 31.1(L) 34.0 - 45.0 % [facility] MCV 83.8 80.0 - 100.[address] [facility] MCH 25.3 25.0 - 32.[address] [facility] MCHC 30.2(L) 31.0 - 36.0 g/dL [facility] RDW 17.0(H) 11.5 - 14.5 % [facility] Plt 197 150 - 400 k/cmm [facility] MPV 9.0 6.5 - 12.[address] [facility] NRBC 0.3(H) 0.0 - 0.0 /100WBC [facility] Automated Abs Neutrophil 3.98 1.70 - 6.50 k/cmm [facility] Comment:Preliminary ANC, Fin al Result to Follow Abs Immature Granulocyte 0.03 0.00 - 0.09 k/cmm [facility] Comment:The Immature Granulo cyte Absolute count contains metamyelocytes and myelocytes. Abs Neutrophil 3.98 1.70 - 6.50 k/cmm [facility] Abs Lymphocyte 2.25 0.80 - 4.00 k/cmm [facility] Abs Monocyte 0.45 0.20 - 1.00 k/cmm [facility] Abs Eosinophil 0.21 0.00 - 0.60 k/cmm [facility] Abs Basophil 0.03 0.00 - 0.20 k/cmm [facility] Blood 12/02/2023 4:42 AM CDT 12/02/2023 5:19 AM CDT us Joaquin Snow MD LABORATORY Edited Resul t - Final [facility] [address] [address] * VITAMIN [id number] TO MMA (12/02/2023 4:42 AM CDT) B12 340 211 - 946 pg/mL [facility] Blood 12/02/2023 4:42 AM CDT 12/02/2023 5:19 AM CDT Joaquin Snow MD LABORATORY Final Result [facility] [address] [address] * (ABNORMAL) TRANSFERRIN (INCLUDES TIBC) (12/02/2023 4:42 AM CDT) Transferrin 230 200 - 360 mg/dL [facility] IBC 343 298 - 536 mcg/dL [facility] Iron Saturation Percent 6(L) 20 - 50 % [facility] Blood 12/02/2023 4:42 AM CDT 12/02/2023 5:19 AM CDT Joaquin Snow MD LABORATORY Final Result Performing Organization Address City/[facility]/ZIP Co de Phone Number [facility] [address] [address] * (ABNORMAL) IRON (12/02/2023 4:42 AM CDT) Iron 19(L) 35 - 145 mcg/dL [facility] Blood 12/02/2023 4:42 AM CDT 12/02/2023 5:19 AM CDT Joaquin Snow MD LABORATORY Final Result Performing Organization Address City/[facility]/ZIP Co de Phone Number [facility] [address] [address] * FERRITIN (12/02/2023 4:42 AM CDT) Ferritin 18.0 13.0 - 150.0 ng/mL [facility] Comment: Test Performed by: [facility] [address] [place] [phone] Blood 12/02/2023 4:42 AM CDT 12/02/2023 5:19 AM CDT us Joaquin Snow MD LABORATORY Final Result [facility] [address] [place] [address] * XR SHOULDER RT 2/3V AP/GRASH/Y* (12/01/2023 [...] intact. Glenohumeral alignment is normal. Procedure Note Ronadl Nunn MD - 12/01/2023 EXAMINATION: XR SHOULDER [...] Impression: No acute osseous injury. Reading Radiologist: Iriwn Heredia Narrative 12/01/2023 2:58 PM CDT Technique: [...] POC Glucose 108(H) 70 - 100 mg/dL [facility] Blood 12/01/2023 9:07 AM CDT Gonzalez Gomez MD LABORATORY F inal Result Performing Organization Address City/[facility]/ZIP Co de Phone Number [facility] POINT OF CARE [address] [place] [address], [place] * (ABNORMAL) POC GLUCOSE (12/01/2023 6:22 AM CDT) POC Glucose 101(H) 70 - 100 mg/dL [facility]ARE Blood 12/01/2023 6:22 AM CDT Gonzalez Gomez MD LABORATORY F inal Result [facility] POINT [facility] CARE [address] [place] [address], [place] * CT LOW EXTREMITY LEFT NO [...] Achilles tendon is intact. Procedure Note Lester Graves DO - 11/30/2023 Comparison: None Indication: eval [...] Lester Graves Gonzalez Gomez MD RAD CT BODY F [...] No acute abnormality. Reading Radiologist: Lester Graves us Gonzalez Gomez MD RAD XRAY F inal Result * ED EKG (12-LEAD) (11/30/2023 7:09 PM CDT) 11/30/2023 7:[address] [facility] CVIS EKG ORDERS - 11/30/2023 7:09 PM CDT SINUS RHYTHM POSSIBLE RIGHT ATRIAL ENLARGEMENT [0.25mV P-WAVE] BORDERLINE ECG P-R Interval 176 ms QRS Interval 95 ms QT Interval 390 ms QTC Interval 434 ms P [place] 78 QRS [place] 77 T Wave [place] 76 Narrative Procedure Note Greg Posey MD - 12/01/2023 IMPRESSION SINUS RHYTHM POSSIBLE RIGHT ATRIAL ENLARGEMENT [0.25mV P-WAVE] BORDERLINE ECG P-R Interval 176 ms QRS Interval 95 ms QT Interval 390 ms QTC Interval 434 ms P [place] 78 QRS [place] 77 T Wave [place] 76 us Jian Howell MD EKG Final Result [facility] CVIS EKG ORDERS * CK, TOTAL (11/30/2023 7:02 PM CDT) CK na 26 - 192 [facility] Comment:CK = 82. Accuracy of result suspect due to hemolysis. Blood 11/30/2023 7:02 PM CDT 11/30/2023 7:54 PM CDT us Gonzalez Gomez MD LABORATORY F inal Result [facility] [address] [address] * EXTRA TUBE - SST (11/30/2023 7:02 PM CDT) SST TUBE Stored [facility] Comment:SST tubes (Serum Sep arator) are stored in the lab for 3 days from the collection date. Blood 11/30/2023 7:02 PM CDT 11/30/2023 7:09 PM CDT us Jian Howell MD LABORATORY Final Result Performing Organization Address [facility] Co de Phone Number [facility] [address] [address] * HS TROPONIN (11/30/2023 7:02 PM CDT) [facility] HS Troponin I <3 <=14 ng/L [facility] Blood 11/30/2023 7:02 PM CDT 11/30/2023 7:[address] [facility] - 11/30/2023 7:34 PM CDT First Occurrence of the Troponin order is to be drawn Stat by Nursing staff on the unit. us Jian Howell MD LABORATORY Final Result Performing Organization Address City/[facility]/ZIP Co de Phone Number [facility] [address] [address] * ETHANOL (ETOH) LEVEL, BLOOD (11/30/2023 7:02 PM CDT) [facility] Ethanol Negative Negative g/dL [facility] Blood 11/30/2023 7:02 PM CDT 11/30/2023 7:17 PM CDT us Jian Howell MD LABORATORY Final Result Performing Organization Address City/[facility]/ZIP Co de Phone Number [facility] [address] [address] * PTT (APTT) (11/30/2023 7:02 PM CDT) Pathologist [facility] APTT 31.0 25.0 - 37.[address] [facility] Blood 11/30/2023 7:02 PM CDT 11/30/2023 7:17 PM CDT Jian Howell MD LABORATORY Final Result Performing Organization Address [facility] Co de Phone Number [facility] [address] [address] * ED INR (11/30/2023 7:02 PM CDT) Pathologist [facility] ED INR 1.0 0.8 - 1.1 [facility] Comment: Warfarin Therapeutic Range: Standard Intensity: 2.0 - 3.0 High Intensity: 2.5 - 3.5 This is a rapid INR screening test which uses whole blood; results may infrequently differ from plasma INR results. If medication adjustments/dosing are required a PT/INR test ([id number]) should be ordered and performed in the main laboratory. Blood 11/30/2023 7:02 PM CDT 11/30/2023 7:08 PM CDT Jian Howell MD LABORATORY Final Result Performing Organization Address [facility] Co de Phone Number [facility] [address] [address] * PRECAUTIONARY TUBE (11/30/2023 7:02 PM CDT) Pathologist [facility] Prec Tube Precautionary Blood Bank Specimen Received. [facility] Blood 11/30/2023 7:02 PM CDT 11/30/2023 7:17 PM CDT us Jian Howell MD LAB TRANSFUSION SERVICES Final Result Performing Organization Address City/[facility]/ZIP Co de Phone Number [facility] [address] [address] * LACTATE (LACTIC ACID) (11/30/2023 7:02 PM CDT) Pathologist [facility] Lactate 1.5 0.7 - 2.1 mmol/L [facility] Blood 11/30/2023 7:02 PM CDT 11/30/2023 7:[address] [facility] - 11/30/2023 7:16 PM CDT Send specimen on ice! Jian Howell MD LABORATORY Final Result Performing Organization Address [facility]/ZIP Co de Phone Number [facility] [address] [address] * FIBRINOGEN (11/30/2023 7:02 PM CDT) Pathologist [facility] Fibrinogen 222 200 - 400 mg/dL [facility] Blood 11/30/2023 7:02 PM CDT 11/30/2023 7:17 PM CDT Jian Howell MD LABORATORY Final Result Performing Organization Address City/[facility]/ZIP Co de Phone Number [facility] [address] [address] * (ABNORMAL) PANEL HEPATIC FUNCTION (11/30/2023 7:02 PM CDT) Pathologist [facility] Total Protein 6.0(L) 6.4 - 8.3 g/dL [facility] Albumin 4.2 3.8 - 5.1 g/dL [facility] Bili Total <0.2 <=1.2 mg/dL [facility] Bili Direct na <=0.3 mg/dL [facility] Comment:BILID < 0.2. Accurac y of result suspect due to hemolysis. Alk Phos 104 35 - 104 IU/L [facility] Comment:No reference range e stablished for patients <18 years old. ALT (SGPT) na <=33 IU/L [facility] Comment:ALT = 8. Accuracy of result suspect due to hemolysis. AST(SGOT) na 5 - 40 IU/L [facility] Comment:AST = 20. Accuracy o f result suspect due to hemolysis. Blood 11/30/2023 7:02 PM CDT 11/30/2023 7:17 PM CDT us Jian Howell MD LABORATORY Final Result Performing Organization Address City/[facility]/ZIP Co de Phone Number [facility] [address] [address] * (ABNORMAL) ED HEMOGLOBIN TOTAL (ED ONLY) (11/30/2023 7:02 PM CDT) Hgb 10.2(L) 11.5 - 15.7 g/dL [facility] Blood 11/30/2023 7:02 PM CDT 11/30/2023 7:09 PM CDT us Jian Howell MD LABORATORY Final Result Performing Organization Address [facility] de Phone Number [facility] [address] [address] * (ABNORMAL) ED CHEMISTRY LABS(NA,K,CL,CO2,GLU,CREAT,CA-IONIZED,ANION GAP) (11/30/2023 7:02 PM CDT) Sodium 140 135 - 148 mmol/L [facility] Chloride 111(H) 92 - 108 mmol/L [facility] AnGap 7(L) 8 - 16 mmol/L [facility] Glucose 99 70 - 100 mg/dL [facility] ICA, Actual 4.40 4.40 - 5.20 mg/dL [facility] ICA, pH Corrected 4.50 4.40 - 5.20 mg/dL [facility] Creatinine 0.95 0.50 - 1.00 mg/dL [facility] BICARB 22 22 - 26 mEq/L [facility] eGFR (2020 CKD-EPI) 68 >=60 ml/min/1.[address] [facility] Comment: The estimated glomerular filtration rate (eGFR) was calculated using the CKD-EPI 2020 creatinine equation, which does not include race as a factor. This equation is validated in individuals 18 years of age and older, and eGFR is normalized to a body surface area of 1.73m^2. Potassium 4.5 3.5 - 5.3 mmol/L [facility] Blood 11/30/2023 7:02 PM CDT 11/30/2023 7:09 PM CDT us Jian Howell MD LABORATORY Final Result [facility] [address] [place] [address] * (ABNORMAL) CBC WITH PLTS/AUTO DIFF (11/30/2023 7:02 PM CDT) WBC 9.81 4.00 - 10.00 k/cmm [facility] RBC 3.98 3.90 - 5.20 m/cmm [facility] Hgb 10.1(L) 11.5 - 15.7 g/dL [facility] Hematocrit 32.6(L) 34.0 - 45.0 % [facility] MCV 81.9 80.0 - 100.[address] [facility] MCH 25.4 25.0 - 32.[address] [facility] MCHC 31.0 31.0 - 36.0 g/dL [facility] RDW 16.9(H) 11.5 - 14.5 % [facility] Plt 233 150 - 400 k/cmm [facility] MPV 9.1 6.5 - 12.[address] [facility] Automated Abs Neutrophil 6.22 1.70 - 6.50 k/cmm [facility] Comment:Preliminary ANC, Fin al Result to Follow Abs Immature Granulocyte 0.03 0.00 - 0.09 k/cmm [facility] Comment:The Immature Granulo cyte Absolute count contains metamyelocytes and myelocytes. Abs Neutrophil 6.22 1.70 - 6.50 k/cmm [facility] Abs Lymphocyte 2.73 0.80 - 4.00 k/cmm [facility] Abs Monocyte 0.49 0.20 - 1.00 k/cmm [facility] Abs Eosinophil 0.30 0.00 - 0.60 k/cmm [facility] Abs Basophil 0.04 0.00 - 0.20 k/cmm [facility] Blood 11/30/2023 7:02 PM CDT 11/30/2023 7:16 PM CDT us Jian Howell MD LABORATORY Edited Result - Final Performing Organization Address City/[facility]/ZIP Co de Phone Number [facility] [address] [address] * (ABNORMAL) BLOOD GASES (11/30/2023 7:02 PM CDT) PH Juvenal 7.40 7.32 - 7.42 [facility] PCO2 Juvenal 38(L) 41 - [address] [facility] PO2 Juvenal 39 25 - [address] [facility] Bicarb Juvenal 23(L) 24 - 28 mEq/L [facility] O2 Sat Juvenal 73 % [facility] Base Exc Juvenal -1.2 -10.0 - 2.0 mmol/L [facility] Blood Venous 11/30/2023 7:02 PM CDT 11/30/2023 7:09 PM CDT us Jian Howell MD LABORATORY Final Result Performing Organization Address [facility] Co de Phone Number [facility] [address] [address] * ED US CRITICAL CARE (11/30/2023 6:59 [...] Given (removes Due time) - Provider: Kobi L Ntunta, RN - Reason: Patient refused) 0830 (Given - Provider: IVAN Esquivel)0856 (Dual Sign-Off - Provider: Luda Perez, JENNA)1452 (Not Given (removes Due time) - Provider: Yuliana Carpenetr RN - Reason: Patient refused)2017 (Not Given [...] 2200 1739 (New Bag - Provider: Akash Brdaford RN)1816 (Infusion completed - Provider: Akash Bradford RN)2149 (New Bag - Provider: Kobi Dean, JENNA)2230 (Infusion completed - Provider: Kobi Dean RN) [facility] REC REVIEW BY PHARMACY(Linked Group 2) Discharge [...] Until Discontinued 1039 (Given - Provider: Yuliana Carpenter, RN)1848 (Given - Provider: Yuliana Carpenter RN) [...] on Fri12/01/23 at 1314, Until Fri12/03/23 at 191, Apply to area of pain HYDROmorphone PF [...] DC MED REC [facility] Discharge Date: 12/03/2023, [...] Procedure documented in this encounter Care Teams Resource Coordinator Relationship Specialty Start Date End Date Pcp, No [facility] [place] [address] PCP - General 03/18/09 documented as of this encounter
--- OUTSIDE RECORDS SUMMARY | 2024-01-02 10:14 | XMS_ITS | Encounter Summary ---
Author Organization [facility] Address [address] [place] [address] Phone Care Team Providers Care Research Methodologist Name Role Phone Pcp, No Primary Care Provider Unavailabl e Reason for Visit * Auth/Cert (Routine) Specialty Diagnoses / Procedures Referred By Eran hernandez Referred To Contact ORTHOPEDICS Diagnoses Inadequate pain control Traumatic compartment syndrome of left lower extremity, initial encounter ([facility]) Closed fracture fibula, head, left, initial encounter Gonzalez Engle MD [address] [place] [address] [address] [place] [address] Phone: tel: fax: [facility] Orthopaedic [address] [place] [address].[address] [place] [address] Phone: tel: fax: Referral ID Status Reason Start Date Expiration Date Visits Re quested Visits Authorized [id number] 1 1 Encounter Details Date Type Department Care Team (Late st Contact Info) Description 12/01/2023 6:32 AM CDT Anesthesia Event OR P4 [address] [place] [address] Joaquin Herrera MD [address] [place], [place] [phone] [place] [address] Anesthesia Record Procedure Summary Procedure Name Responsible [...] No; 20 gauge; Right; Antecubital; 12/02/23; 1124 11/30/23 191 by Fabiola Toure RN 12/02/23 1124 by Yuliana Carpenter RN Peripheral IV 12/01/23; 0642; 16 gauge; Left; Forearm; 1; Placed in OR; 12/02/23; 1124 12/01/23 0642 by Eric Ching APRN DISTRICT COURT ADMINISTRATOR 12/02/23 1124 by Yuliana Carpenter RN Endotracheal Tube: 12/01/23; 0653 (joaquina william via procedure documentation); 7; 12/01/23; 0810 12/01/23 0653 by Eric Ching APRN, CRNA 12/01/23 0810 by Eric Ching APRN, CRNA documented in this encounter Social History Tobacco [...] on file 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 Anesthesia type: General () Patient location: PACU [...] GI - negative ROS Hematologic/Onc (+) anemia /Renal/Counselor Aide - negative ROS Airway Mallampati: II TM [...] and consented by patient. Plan discussed with DISTRICT COURT ADMINISTRATOR. Vitals: 12/01/23 0444 BP: 115/68 Pulse: 73 [...] unchanged and oral mucosa unchanged Performed by: DISTRICT COURT ADMINISTRATOR: Eric Ching APRN, CRNAAnesthesiologist: Emir Bullock MD [...] st Contact Info) Description 01/06/2024 11:40 AM ARMORED CAR MESSENGER [facility] [address] [address] Lotus Varela MD [address] [place] [address] Scheduled Discharge Disposition: Discharged to home or [...] unchanged and oral mucosa unchanged Performed by: DISTRICT COURT ADMINISTRATOR: Eric Ching APRN, CRNAAnesthesiologist: Emir Bullock MD Additional Notes RSI Events Anesthesia start: 12/01/2023 6:32 AM Intubation time: 12/01/2023 6:41 AM us Joaquin Herrera MD PROCEDURES Final Resul t documented in this encounter Visit Diagnoses Not [...] mg documented in this encounter Care Teams Research Methodologist Relationship Specialty Start Date End Date Pcp, [place] [address] PCP - General 03/18/09 documented as of this encounter
--- OUTSIDE RECORDS SUMMARY | 2024-01-02 10:14 | XMS_ITS | Encounter Summary ---
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 Gender Identity Not on file Sexual Orientation Not on file documented as of this encounter Plan of Treatment Upcoming Encounters Date Type Department Care Team (Late st Contact Info) Description 01/06/2024 11:40 AM PHLEBOTOMIST SUPERVISOR/INSTRUCTOR [facility] [address] [address] Lotus Varela MD [address] [address] Scheduled Discharge Disposition: Discharged to home or self care documented as of this encounter Visit Diagnoses Not on filedocumented in this encounter Care Teams Allied Health Instructor Relationship Specialty Start Date End Date Pcp, No [place] [place] [address] PCP - General 03/18/09 documented as of this encounter
--- OUTSIDE RECORDS SUMMARY | 2024-01-02 10:14 | XMS_ITS | Encounter Summary ---
Author Organization [facility] Address [address] [place] [address] Phone Care Team Providers Care Credit Portfolio Manager Name Role Phone Pcp, No Primary Care Provider Unavailabl e Encounter Details Date Type Department Care Team (Late st Contact Info) Description 12/01/2023 Orders Only [facility] Film Room [facility] Radiology Department DIONISIO 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 Gender Identity Not on file Sexual Orientation Not on file documented as of this encounter Plan of Treatment Upcoming Encounters Date Type Department Care Team (Late st Contact Info) Description 01/06/2024 11:40 AM CLAIMS SERVICE REPRESENTATIVE [facility] [address] [address] Lotus Varela MD [address] [place] [address] Scheduled Discharge Disposition: Discharged to home or self care documented as of this encounter Results * XR LOWER EXTREMITY OUTSIDE FILMS (11/30/2023 4:55 PM CDT) Narrative User Wdif-Ylgtmt-Xwcksxjxp - 12/01/2023 9:32 AM CDT Outside Film Only us Outside Provider RAD OUTSIDE FILMS Final Result * XR LOWER EXTREMITY OUTSIDE FILMS (11/30/2023 4:54 PM CDT) Narrative Petey Fbbx-Bbnmtn-Puouorhwi - 12/01/2023 9:34 AM CDT Outside Film Only us Outside Provider RAD OUTSIDE FILMS Final Result * XR LOWER EXTREMITY OUTSIDE FILMS (11/30/2023 4:53 PM CDT) Narrative User, Kuby-Qlywfv-Wqbptutet - 12/01/2023 9:33 AM CDT Outside Film Only us Outside Provider RAD OUTSIDE FILMS Final Result * XR LOWER EXTREMITY OUTSIDE FILMS (11/30/2023 4:51 PM CDT) Narrative Petey, Gspb-Lszteg-Eihlmcyxg - 12/01/2023 10:15 AM CDT Outside Film Only us Outside Provider RAD OUTSIDE FILMS Final Result * XR LOWER EXTREMITY OUTSIDE FILMS (11/30/2023 4:50 PM CDT) Felice Petey, Bobo-Ifcwgr-Qyjmsbeuz - 12/01/2023 9:35 AM CDT Outside Film Only us Outside Provider RAD OUTSIDE FILMS Final Result documented in this encounter Visit Diagnoses Diagnosis Referral of patient- Primary Referral of patient without examination or treatment documented in this encounter Care Teams Credit Portfolio Manager Relationship Specialty Start Date End Date Pcp, No [place] [place] [address] PCP - General 03/18/09 documented as of this encounter
--- OUTSIDE RECORDS SUMMARY | 2024-01-02 10:15 | XMS_ITS | Clinical Summary ---
Author Organization [facility] Address [address] [place] [address] Care Team Providers Care Slurry Control Tender Name Role Phone Tommy Mcelroy MD Primary Care Provider [phone] Allergies Active Allergy Reactions Criticality Noted Date Comments Baclofen 12/23/2012 Diphenhydramine-Zinc Acetate Other (See Comments) 04/24/2011 Makes restless leg symptoms worse. Compazine Anaphylaxis 10/23/2004 Cyclobenzaprine Other (See Comments) 04/24/2011 Makes restless leg symptoms worse. Cyclobenzaprine Hcl 12/23/2012 Methocarbamol Other (See Comments) 04/24/2011 Makes restless leg symptoms worse. 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 Gender Identity Not on file Sexual Orientation Not on file Last Filed Vital Signs Vital Sign Reading Time Taken Comments Blood Pressure 111/70 01/08/2023 1:50 PM CATTLE DEALER Pulse 73 01/08/2023 1:50 PM CATTLE DEALER Temperature 36.7 C (98 F) 01/08/2023 1:50 PM CATTLE DEALER Respiratory Rate 18 01/08/2023 1:50 PM CATTLE DEALER Oxygen Saturation 96% 01/08/2023 1:50 PM CATTLE DEALER Inhaled Oxygen Concentration - - Weight 77.1 [...] this topic Medical Devices Implanted Type Area Sample Taker Operator Device Identifier Shelf Expiration Date Model / Serial / Lot Graft Bone Foam Pack Vitoss 10ml Bio Active Implanted:Qty: 1 on 05/02/2011 at [facility] N/A: Spine Lumbar 10/04/2012 / / [id number] Iom Supplies Implanted:Qty: 1 on 05/02/2011 at [facility] Cell Saver Standby Implanted:Qty: 1 on 05/02/2011 at [facility] Graft Bone Crush Canc 15ml [id number] Implanted:Qty: 1 on 05/02/2011 at [facility] N/A: Spine Lumbar [id number] / [id number] / 14x12 Align Implanted:Qty: 1 on 05/02/2011 at [facility] N/A: Spine Lumbar [id number] / / [id number] 16x12 Align Implanted:Qty: 1 on 05/02/2011 at [facility] N/A: Spine Lumbar [id number] / / [id number] 25mm Plate Implanted:Qty: 1 on 05/02/2011 at [facility] N/A: Spine Lumbar [id number] / / [id number] 25mm Screw Implanted:Qty: 4 on 05/02/2011 at [facility] N/A: Spine Lumbar [id number] / / [id number] Imp Washer Syn [place] 13.5x5.5mm Implanted:Qty: 2 on 05/02/2011 at [facility] N/A: Spine Lumbar 219.951 / / 0106 [id number] Imp Scr Syn Canc 6.7v137bw Ft Ti Implanted:Qty: 2 on 05/02/2011 at [facility] N/A: Spine Lumbar 418.025 / / 0106 [id number] Spf-Plus 60/M Implantable Spinal Fusion Stimulator Implanted:Qty: 1 on 03/02/2014 by Brock Sawyer MD at [facility] N/A: Back [employer] INC 07/03/2015 10-1398M / [id number] / Graft Bone Foam Pack Vitoss 10ml Bio Active Implanted:Qty: 1 on 03/02/2014 by Brock Sawyer MD at [facility] N/A: Back ORTHOVITA 09/10/2015 / / [id number] Imp Scr Medt 5.5/6.0mm Solera 6.5x45mm Ma [id number] Implanted:Qty: 4 on 03/02/2014 by Brock Sawyer MD at [facility] N/A: Back [employer] [id number] / / [id number] 2014 Imp Scr Medt 5.5/6.0mm Solera 8.5x70mm Ma [id number] Implanted:Qty: 2 on 03/02/2014 by Brock Sawyer MD at [facility] N/A: Back [employer] [id number] / / [id number] 01 MAR 2014 Imp Scr Set Medt Solera Break Off 5.5mm Ti [id number] Implanted:Qty: 6 on 03/02/2014 by Brock Sawyer MD at [facility] N/A: Back [employer] [id number] / / [id number] 01 MAR 2014 Imp Beltran Medt Solera Cvd 5.0s380au Ti [id number] Implanted:Qty: 2 on 03/02/2014 by Brock Sawyer MD at [facility] N/A: Back [employer] [id number] / / [id number] 02 MAR 2014 Imp Scr Syn Can 4.0x20mm Ft Ss 206.020 Implanted:Qty: 2 on 03/02/2014 by Brock Sawyer MD at [facility] N/A: Back SYNTHES-STRATEC 206.020 / / Impulse Implanted:Qty: 1 on 03/02/2014 by Brock Sawyer MD at [facility] Explanted Type Area Sample Taker Operator Device Identifier Shelf Expiration Date Model / Serial / Lot Imp Scr Danek Sext Can 6.5x40mm Legacy Ti Implanted:Qty: 2 on 05/02/2011 at [facility] Explanted:Qty: 2 on 03/02/2014 at [facility] N/A: Spine Lumbar [id number] / / [id number] 01MAY2011 Imp Scr Danek Set G4 Internal Hex [id number] Implanted:Qty: 4 on 05/02/2011 at [facility] Explanted:Qty: 4 on 03/02/2014 at [facility] N/A: Spine Lumbar [id number] / / [id number] 01MAY2011 Imp Beltran Danek Sext 60mm Ti [id number] Implanted:Qty: 2 on 05/02/2011 at [facility] Explanted:Qty: 2 on 03/02/2014 at [facility] N/A: Spine Lumbar [id number] / / [id number] 01MAY2011 Imp Scr Danek Sext Can 6.5x45mm Legacy Ti Implanted:Qty: 2 on 05/02/2011 at [facility] Explanted:Qty: 2 on 03/02/2014 at [facility] N/A: Spine Lumbar [id number] / / [id number] 01MAY2011 Description:BILATERAL SCREWS FROM S1, SCREW HEAD REMOVED, SCREW SHAFT REMAINS Procedures Procedure Name Priority Date/Time Associated Diagnosis Comments COMPREHENSIVE METABOLIC PANEL STAT 11/27/2014 4:05 PM CDT from Last 3 Months or Most Recently Relevant to Health Maintenance Results * (ABNORMAL) Comprehensive metabolic panel (11/27/2014 4:05 PM CDT) Sodium 139 133 - 144 mmol/L [facility] Potassium 4.0 3.4 - 5.3 mmol/L [facility] Chloride 105 94 - 109 mmol/L [facility] Carbon Dioxide 27 20 - 32 mmol/L [facility] Anion Gap 7 3 - 14 mmol/L [facility] Glucose 158(H) 70 - 99 mg/dL [facility] Urea Nitrogen 13 7 - 30 mg/dL [facility] Creatinine 0.76 0.52 - 1.04 mg/dL [facility] GFR Estimate 79 >60 mL/min/1. 7m2 [facility] Comment:Non GFR Calc GFR Estimate If Black >90 GFR Calc >60 mL/min/1. 7m2 [facility] Calcium 8.8 8.5 - 10.1 mg/dL [facility] Bilirubin Total 0.2 0.2 - 1.3 mg/dL [facility] Albumin 4.1 3.4 - 5.0 g/dL [facility] Protein Total 7.4 6.8 - 8.8 g/dL [facility] Alkaline Phosphatase 135 40 - 150 U/L [facility] ALT 55(H) 0 - 50 U/L [facility] AST 30 0 - 45 U/L [facility] Blood specimen (specimen) 11/27/2014 4:05 PM CDT 11/27/2014 4:14 PM CDT us Ian Monsivais MD LAB - BLOOD ORDERABLES Final Re sult [facility] [address] [address], [facility] [phone] from Last 3 Months or Most Recently Relevant to Health Maintenance Insurance none (Work) [address] [facility] [place] [place] [id number] MEDICARE [employer] MEDICARE [employer] [id number] OTHER * Guarantor: LEONELA INJURY 2005 Account Type Relation to Patient Date of Phone Billing Address Worker's Compensation Employer [address] [place] [phone] OTHER none (Work) [address] [place] [id number] [facility] INSURANCE Advance Directives For more information, please contact: [phone] * Full Code (Latest Code Status on File) Date Activated Date Inactivated Comments 05/02/2011 8:26 PM 05/06/2011 2:41 PM * Full Code Date Activated Date Inactivated Comments 05/02/2011 2:17 PM 05/02/2011 8:26 PM Care Teams Slurry Control Tender Relationship Specialty Start Date End Date Tommy Mcelroy MD PCP - General Family Practice 04/16/11
--- OUTSIDE RECORDS SUMMARY | 2024-01-02 10:15 | XMS_ITS | Referral Summary ---
Author Organization [facility] Address [address] [place] [address] Care Team Providers Care Microbiology Supervisor Name Role Phone [facility]- Unava ilable Hayes Mcelroy MD Primary Care Provider [phone] Encounters Date Type Department Care Team Description 2023 Travel 2023 9:40 AM CDT Office Visit [facility] [address] [place] [address] Brock Sawyer MD S/P lumbar fusion (Primary Dx) 10/28/2023 Travel 10/28/2023 9:15 AM CDT Office Visit [facility] [address] [place] [address] Jg Ivory PA-C Postoperative state (Primary Dx); S/P lumbar fusion; Lumbar spine pain from Last 3 Months Allergies Active Allergy Reactions Criticality Noted Date Comments Atorvastatin Other 09/30/2019 Skin irritation around eyes Baclofen Nausea Low 12/23/2012 Zseimtwadjam-Rxfizdc-Xutnro e Low 12/23/2012 Cyclobenzaprine Low 04/24/2011 Other [...] legs Other Reaction(s): Rash, restless legs Medications blood sugar diagnostic (ACCU-CHEK GUIDE TEST STRIPS) Strip testing strips USE TO TEST TWICE A DAY 2 Active dicyclomine (BENTYL) 20 mg oral tablet [...] Units) by mouth every 7 (seven) days. 2 Active escitalopram oxalate (LEXAPRO) 20 mg oral tablet Take 0.5 tablets (10 mg) by mouth once daily. Active lamoTRIgine (LAMICTAL) 200 mg oral tablet Take 1 tablet (200 mg) by mouth twice a day. Active lidocaine 5% (LIDODERM) Top patch Apply 1-3 patches to skin once a day as needed. 2 Active LINZESS 72 mcg oral Cap Take 2.0139 capsules (145 mcg) by mouth every morning before breakfast. 3 Active LORazepam (ATIVAN) 1 mg oral tablet TAKE ONE TABLET BY MOUTH THREE TIMES DAILY NEEDED FOR INCREASED ANXIETY.* 3 Active metFORMIN (GLUCOPHAGE) 1,000 mg oral tablet TAKE ONE TABLET BY MOUTH TWICE DAILY. due for recheck in november.* 3 Active naloxone (NARCAN) 4 mg/actuation Nasal [place] Administer one dose (4 mg) into nostril as needed for opioid overdose and call 911. Give second dose into the other nostril after 2 to 3 minutes if minimal or no response.* 3 Active omeprazole (PRILOSEC) 40 mg oral delayed release capsule Take 1 capsule (40 mg) by mouth Daily. Active pramipexole (MIRAPEX) 0.5 mg oral tablet Take 1 tablet (0.5 mg) by mouth once daily. 3 Active prazosin (MINIPRESS) 1 mg oral capsule Take 1 capsule (1 mg) by mouth at bedtime. Takes for PTSD nightmares 3 Active senna-docusate (SENNA-S) 8.6-50 mg oral tablet Take 1-4 tablets by mouth twice a day. 2 Active simvastatin (ZOCOR) 20 mg oral tablet Take 1 tablet (20 mg) by mouth once daily. 3 Active topiramate (TOPAMAX) 100 mg oral tablet Take 1.5 tablets (150 mg) by mouth twice a day. Active traZODone (DESYREL) 100 mg oral tablet Take 1 tablet (100 mg) by mouth at bedtime as needed for sleep. 3 Active ACCU-CHEK GUIDE GLUCOSE METER meter As directed* 4 Active buPROPion XL (WELLBUTRIN XL) 150 mg oral extended release tablet 24 HR TAKE ONE TABLET BY MOUTH ONE TIME DAILY* 4 Active docusate sodium (COLACE) 100 mg oral capsule Take 1 capsule (100 mg) by mouth twice a day. 20 capsule 09/25/2023 11:28 AM CDT 4 Active methocarbamoL (ROBAXIN) 500 mg oral tablet Take 1-2 tablets (500-1,000 mg) by mouth four times a day. 60 tablet 3 09/25/2023 11:28 AM CDT 4 Active oxyCODONE (OXYCONTIN) 20 mg oral extended release tablet 12 HR Take 1 tablet (20 mg) by mouth every 8 (eight) hours. 10 tablet 09/25/2023 11:28 AM CDT 4 Active HYDROmorphone (DILAUDID) 4 mg oral tablet Take 1-2 tablets (4-8 mg) by mouth every 4 (four) hours as needed. 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 No 09/23/2023 Comments No Sex and Gender Information Value Date Recorded Sex Assigned at Not on file Legal Sex Female 7:28 PM CDT Gender Identity Not on file Sexual Orientation Not on file Last Filed Vital Signs Vital Sign Reading Time Taken Comments Blood Pressure 126/76 09/25/2023 10:56 AM CDT Pulse 89 09/25/2023 10:56 AM CDT Temperature 36.7 C (98.1 F) 09/25/2023 10:56 AM CDT Respiratory Rate 18 09/25/2023 10:56 AM CDT Oxygen Saturation 94% 09/25/2023 10:56 AM CDT Inhaled Oxygen Concentration - - Weight 69.9 kg (154 lb) 2023 10:22 AM CDT Height 174 cm (5' 8.5) 2023 10:22 AM CDT Body Mass Index 23.08 2023 10:22 AM CDT Plan of Treatment Not on file Medical Devices Implanted Type Area Manager Adobe Device Identifier Shelf Expiration Date Model / Serial / Lot Beltran 50mm 5.5mm Ccm Curv - [id number] Implanted:Qty : 1 on 09/23/2023 by Brock Sawyer MD at [facility] Beltran N/A: Spine Lumbar Medtronic Inc [id number] / / Beltran 60mm 5.5mm Ccm Curv - [id number] Implanted:Qty : 1 on 09/23/2023 by Brock Sawyer MD at [facility] Beltran N/A: Spine Lumbar Medtronic Inc [id number] / / Set Screw Solera Brk Off - [id number] Implanted:Qty : 4 on 09/23/2023 by Brock Sawyer MD at [facility] Screw/An chor N/A: Spine Lumbar Medtronic Inc [id number] / / Insurance sofatronic sofatronic MEDICARE PART A & B Advance Directives For more information, please contact: [phone] * Full Code (Latest Code Status on File) Date Activated Date Inactivated Comments 09/24/2023 3:26 PM 09/25/2023 5:49 PM Question Answer Comments How was code status determined? Patient * Full Code Date Activated Date Inactivated Comments 09/23/2023 5:59 AM 09/23/2023 9:48 AM Question Answer Comments How was code status determined? Previous [facility] Care Teams Microbiology Supervisor Relationship Specialty Start Date End Date [facility]- [address] [place] [address] PCP - Primary Care Clinic 09/18/22 [place] [address] [place] [address] PCP - General 05/20/23
--- OUTSIDE RECORDS SUMMARY | 2024-01-02 10:15 | XMS_ITS | Encounter Summary ---
Author Organization [facility] Address [address] [place] [address] Care Team Providers Care Power Hair Clipper Name Role Phone [facility]- Unava ilable Hayes Mcelroy MD Primary Care Provider [phone] Reason for Referral * (Routine) - Open Specialty Diagnoses / Procedures Referred By Contac t Referred To Contact Procedures Discharge Instructions Vladimir Paez PA-C Phone: tel: fax: Referral ID Status Reason Start Date Expiration Date Visits Re quested Visits Authorized [id number] Open 09/25/2023 1 1 * (Routine) - Open Specialty Diagnoses / Procedures Referred By Contac t Referred To Contact Procedures Discharge Instructions Vladimir Paez PA-C Phone: tel: fax: Referral ID Status Reason Start Date Expiration Date Visits Re quested Visits Authorized [id number] Open 09/25/2023 1 1 * (Routine) - Open Specialty Diagnoses / Procedures Referred By Contac t Referred To Contact Procedures Discharge Instructions Vladimir Paez PA-C Phone: tel: fax: Referral ID Status Reason Start Date Expiration Date Visits Re quested Visits Authorized [id number] Open 09/25/2023 1 1 * (Routine) - Open Specialty Diagnoses / Procedures Referred By Contac t Referred To Contact Procedures Wound care Vladimir Paez PA-C Phone: tel: fax: Referral ID Status Reason Start Date Expiration Date Visits Re quested Visits Authorized [id number] Open 09/25/2023 1 1 * (Routine) - Open Specialty Diagnoses / Procedures Referred By Contac t Referred To Contact Procedures Dressing Change Vladimir Paez PA-C Phone: tel: fax: Referral ID Status Reason Start Date Expiration Date Visits Re quested Visits Authorized [id number] Open 09/25/2023 1 1 * (Routine) - Open Specialty Diagnoses / Procedures Referred By Contac t Referred To Contact Procedures Discharge Instructions Vladimir Paez PA-C Phone: tel: fax: Referral ID Status Reason Start Date Expiration Date Visits Re quested Visits Authorized [id number] Open 09/25/2023 1 1 * (Routine) - Open Specialty Diagnoses / Procedures Referred By Contac t Referred To Contact Procedures Shower Vladimir Paez PA-C Phone: tel: fax: Referral ID Status Reason Start Date Expiration Date Visits Re quested Visits Authorized [id number] Open 09/25/2023 1 1 * (Routine) - Open Specialty Diagnoses / Procedures Referred By Contac t Referred To Contact Procedures Discharge Instructions Vladimir Paez PA-C Phone: tel: fax: Referral ID Status Reason Start Date Expiration Date Visits Re quested Visits Authorized [id number] Open 09/25/2023 1 1 * (Routine) - Open Specialty Diagnoses / Procedures Referred By Contac t Referred To Contact Procedures Activity as tolerated Vladimir Paez PA-C Phone: tel: fax: Referral ID Status Reason Start Date Expiration Date Visits Re quested Visits Authorized [id number] Open 09/25/2023 1 1 * (Routine) - Open Specialty Diagnoses / Procedures Referred By Contac t Referred To Contact Vladimir Paez PA-C Phone: tel: fax: Blaire Sharif PA-C [address] [address] Phone: tel: fax: Referral ID Status Reason Start Date Expiration Date Visits Re quested Visits Authorized [id number] Open 09/25/2023 1 1 Question Answer Specify time frame for follow up? 2 Weeks Instructions to follow-up provider routine post op f/u Comments Return to clinic in 2-4 weeks for post op visit. Please call [phone] option 1 for an appointment if no appointment scheduled within 1 week of discharge * (Routine) - Open Specialty Diagnoses / Procedures Referred By Contac t Referred To Contact Vladimir Paez PA-C Phone: tel: fax: Blaire Sharif PA-C [address] [address] Phone: tel: fax: Referral ID Status Reason Start Date Expiration Date Visits Re quested Visits Authorized [id number] Open 09/25/2023 1 1 Question Answer Instructions to follow-up provider n/a Comments If you need a refill on your prescriptions, or you have questions or concerns, please call [phone] during office hours, Friday-Friday 8:30 a.m. to 4:30 p.m. Please plan ahead if you are running low and expect to require a refill. * (Routine) - Open Specialty Diagnoses / Procedures Referred By Contac t Referred To Contact Procedures Temperature >101 (38.3 degrees Celsius) Vladimir Paez PA-C Phone: tel: fax: Referral ID Status Reason Start Date Expiration Date Visits Re quested Visits Authorized [id number] Open 09/25/2023 1 1 * (Routine) - Open Specialty Diagnoses / Procedures Referred By Contac t Referred To Contact Procedures Severe uncontrolled pain Vladimir Paez PA-C Phone: tel: fax: Referral ID Status Reason Start Date Expiration Date Visits Re quested Visits Authorized [id number] Open 09/25/2023 1 1 * (Routine) - Open Specialty Diagnoses / Procedures Referred By Contac t Referred To Contact Procedures Increased tenderness or swelling Vladimir Paez PA-C Phone: tel: fax: Referral ID Status Reason Start Date Expiration Date Visits Re quested Visits Authorized [id number] Open 09/25/2023 1 1 * (Routine) - Open Specialty Diagnoses / Procedures Referred By Contac t Referred To Contact Procedures Persistent nausea or vomiting Vladimir Paez PA-C Phone: tel: fax: Referral ID Status Reason Start Date Expiration Date Visits Re quested Visits Authorized [id number] Open 09/25/2023 1 1 * (Routine) - Open Specialty Diagnoses / Procedures Referred By Contac t Referred To Contact Procedures Pain not relieved by medication Vladimir Paez PA-C Phone: tel: fax: Referral ID Status Reason Start Date Expiration Date Visits Re quested Visits Authorized [id number] Open 09/25/2023 1 1 * (Routine) - Open Specialty Diagnoses / Procedures Referred By Contac t Referred To Contact Procedures Numbness/pain in extremity Vladimir Paez PA-C Phone: tel: fax: Referral ID Status Reason Start Date Expiration Date Visits Re quested Visits Authorized [id number] Open 09/25/2023 1 1 * (Routine) - Open Specialty Diagnoses / Procedures Referred By Contac t Referred To Contact Procedures Increased confusion Vladimir Paez PA-C Phone: tel: fax: Referral ID Status Reason Start Date Expiration Date Visits Re quested Visits Authorized [id number] Open 09/25/2023 1 1 * (Routine) - Open Specialty Diagnoses / Procedures Referred By Contac t Referred To Contact Procedures Inability to eat, drink, or take medication Vladimir Paez PA-C Phone: tel: fax: Referral ID Status Reason Start Date Expiration Date Visits Re quested Visits Authorized [id number] Open 09/25/2023 1 1 * (Routine) - Open Specialty Diagnoses / Procedures Referred By Contac t Referred To Contact Procedures Difficulty breating, headache, or visual disturbance Vladimir Paez PA-C Phone: tel: fax: Referral ID Status Reason Start Date Expiration Date Visits Re quested Visits Authorized [id number] Open 09/25/2023 1 1 * (Routine) - Open Specialty Diagnoses / Procedures Referred By Contac t Referred To Contact Procedures Any questions or concerns Vladimir Paez PA-C Phone: tel: fax: Referral ID Status Reason Start Date Expiration Date Visits Re quested Visits Authorized [id number] Open 09/25/2023 1 1 Reason for Visit [...] Expiration Date Visits Re quested Visits Authorized [id number] 1 1 Encounter Details Date Type Department Care Team (Latest Contact Info) Description 09/23/2023 5:55 AM CDT - 09/25/2023 11:44 AM CDT Hospital Encounter [id number] [facility] [place], [place] [id number] Brock Sawyer MD [address] [place] [address] Chronic pain disorder Discharge Disposition: Returning Home/Self Care Social History Tobacco Use Types Packs/Day Years Used Date Smoking Tobacco: Former Cigarettes Smokeless Tobacco: Never Tobacco Cessation:Counseling Given: Not Answered Comments:Quit august 2023 Alcohol Use Standard Drinks/Week Comments Not Currently 0 (1 standard drink = 0.6 oz pur e alcohol) [facility] Utilities Answer Date Recorded In the past 12 months has e [employer], gas, oil, or water [employer] threatened to shut off services in your [...] any time in the past 12 m [facility], were you homeless or living in a detention (including now)? No 09/23/2023 Comments No Sex [...] device of vertebrae, initial encounter ([facility]) [T84.216A] Principal Problem: Chronic pain disorder [...] in november.* naloxone (NARCAN) 4 mg/actuation Nasal Flushing Administer one dose (4 mg) into nostril [...] re-establish your bowel program. You may take tgve-shq-xxxoldl stool medications as directed by the package [...] Priority: Routine Referred to Provider: BLAIRE SHARIF N Number of Visits Requested: 1 Follow Up Referral Priority: Routine Referred to Provider: BLAIRE SHARIF N Number of Visits Requested: 1 Special instructions: Obtain further long acting opioids from your pain clinic. FOLLOW-UP: She should see [facility] for first recheck in 2-4 weeks. Call for appointment if one not already in place. [phone] Sawyer [phone] Total time spent for discharge on date of discharge: 20 minutes. Vladimir Paez PA-C [facility] [place] [facility] Cosigned by Brock Sawyer MD at 10/06/2023 5:50 AM CDT documented in this encounter Medications at Time of Discharge ACCU-CHEK GUIDE GLUCOSE METER meter As directed* [...] day. 20 capsule 09/25/2023 11:28 AM CDT 09/25/2023 DULoxetine (CYMBALTA) 30 mg oral delayed [...] needed. 40 tablet 09/25/2023 11:28 AM CDT 09/25/2023 lamoTRIgine (LAMICTAL) 200 mg oral tablet [...] 60 tablet 3 09/25/2023 11:28 AM CDT 09/25/2023 naloxone (NARCAN) 4 mg/actuation Nasal Flushing Administer one dose (4 mg) into nostril [...] hours. 10 tablet 09/25/2023 11:28 AM CDT 09/25/2023 pramipexole (MIRAPEX) 0.5 mg oral tablet [...] 11:02 AM CDT Ramona Benavides Marilyn [id number] P: Discharge A: Discharged ambulatory to home [...] with metformin, chronic lower back pain on SHOT LIGHTER narcotics, hyperlipidemia managed with Zocor who had [...] exploring L3-4 Fusion and replacement of rods L3-X2zqhsu Routine postop cares including DVT prophylaxis pain management, drain management,ambulation per NSGYteam T2DM On SHOT LIGHTER metformin. Hold for now Very low-dose SSI with hypoglycemia protocol Regular diet at patient request Depression Resume SHOT LIGHTER Wellbutrin and Cymbalta Chronic pain syndrome 2/2 LBP On SHOT LIGHTER opoid including Cymbalta. Primary team/NSGY managing pain [...] hours 20 mL/24 hours Vladimir Paez PA-C [facility] * Waqas Rodriguez RN [...] with metformin, chronic lower back pain on SHOT LIGHTER narcotics, hyperlipidemia managed with Zocor who had [...] exploring L3-4 Fusion and replacement of rods L3-Q2jquzx Routine postop cares including DVT prophylaxis pain management, drain management,ambulation per NSGYteam T2DM On SHOT LIGHTER metformin. Hold for now Very low-dose SSI with hypoglycemia protocol Regular diet at patient request Depression Resume SHOT LIGHTER Wellbutrin and Cymbalta Chronic pain syndrome 2/2 LBP On SHOT LIGHTER opoid including Cymbalta. Primary team/NSGY managing pain [...] for: POTASSIUM, SODIUM, WBC Fabiola Zavala PA-C [facility] * Soco Paez RN [...] to call for help, name of assigned inspector health care facilities, PatientInformation booklet, initial physician orders, hourly rounding [...] DM II, chronic lower back pain on SHOT LIGHTER narcotics, HLD Patient Seen In: Room Family/Caregiver [...] most limited by worsening pain limiting progression [facility] AM-PAC 6-Clicks Turning over in [...] CONSULT NOTE Patient Name: Ramona Sanders Address: [address] [place] [address] [place] [address] Age:62 y.o. Sex: female Admission Date/Time: 09/23/2023 5:55 AM Requesting Physician: Brock Sawyer MD [facility] Attending Physician: Brock Saywer MD I was asked to see this [...] with metformin, chronic lower back pain on SHOT LIGHTER narcotics, hyperlipidemia managed with Zocor. At bedside [...] 15-20 mg, 15-20 mg, oral, Q4H PRN, aBltazar Jarrell PA-C oxyCODONE (oxyCONTIN) extended release tablet 12 HR 20 mg, 20 mg, oral, Q8H, Baltazar Jarrell PA-C, 20 mg at 09/23/23 1324 ALLERGIES/SENSITIVITIES Allergies Allergen Reactions Atorvastatin Other Skin irritation around eyes Baclofen Nausea Sgqflhmocsbr-Coqgbwu-Xyhicey Compazine [Prochlorperazine] Other Tongue in and out [...] with metformin, chronic lower back pain on SHOT LIGHTER narcotics, hyperlipidemia managed with Zocor. Principal Problem: Chronic pain disorder S/p bilateral removal of hardware L2-Pelvis and exploring L3-4 Fusion and replacement of rods L3-A9bbbuf Routine postop cares including DVT prophylaxis pain management, ambulation per NSGYteam T2DM On SHOT LIGHTER metformin. Hold for now Very low-dose SSI with hypoglycemia protocol Depression Resume SHOT LIGHTER Wellbutrin and Cymbalta Chronic pain syndrome 2/2 LBP On SHOT LIGHTER opoid including Cymbalta. Primary team/NSGY managing pain [...] Outcome: Met this shift Flowsheets (Taken 09/24/2023 2248) Environmental Safety Interventions: Standard Interventions in Place [...] device of vertebrae, initial encounter ([facility]) [T84.216A] Chronic pain disorder [G89.4] Admitted from: Home Prior: Living Arrangements: Spouse/significant other Jerry Caruso (SIGO) [phone] (M) Support Systems: Spouse/significant other Primary decision [...] management will continue to follow. NICOLAS Dewey, SAILOR 3:23 PM, 09/24/2023 P: [phone] F: [phone] * Anjali Mclean RN - 09/24/2023 10:32 [...] Falls/Injury Outcome: Met this shift Flowsheets (Taken 09/23/20231952) Environmental Safety Interventions: Standard Interventions in Place [...] Pt smiling, declining tylenol and oxy. When designer/writer returnedto bed pt crying and stating she has moderated pain. Hitting the pillow with her arm. I just have awave of pain. Pt given iv pain meds. Agitated screaming out, putting pillow over head. Offered meds, pt doesn't answer. Pt then stated she was worried about her SO, what he wsa going to eat because she usually cooks for him. Inside Sales Assistant spoke with Dr Albert will give tylenol [...] MD - 09/23/2023 8:32 AM CDT Ramona Benavides Marilyn 1960 [id number] DATE OF OPERATIVE PROCEDURE: 09/23/2023 PROCEDURE Removal [...] the recovery room bed in satisfactory condition. Baltazar Monroeh PAC provided assistance with preoperative positioning, prepping, and draping of the patient. The visitor services information assistant provided vital operative assistance with retraction using instruments best providing the necessary exposure and visualization for the case, manipulation of tissues to achieve hemostasis, suction for visualization and assisted in wound closure. The visitor services information assistant also helped place instrumentation under direct visualization of the surgeon. Postoperatively they assisted in the transfer of the patient off of the operative table and transition into the post anesthesia care unit with hester sition of care being made to the anesthesiologist. Brock Sawyer MD SPINE SURGEON/ [facility] [place] [facility] documented in this encounter Plan of [...] - 100 mg/dL 09/25/2023 11:36 AM CDT [facility] Blood 09/25/2023 7:53 AM CDT 09/25/2023 11:36 AM CDT us Brock Sawyer MD LAB POINT OF CARE TEST RE SULTS Final Result Performing Organization Address City/State/[facility] Co de Phone Number [facility] [address] [place] [address] * XR C-ARM SPINE (09/23/2023 9:14 AM [...] procedure. REPORT SIGNED BY DR. Kai Villeda us Brock Sawyer MD XRAY ORDERABLE Final Res ult documented in this encounter Visit Diagnoses Diagnosis [...] Fri09/24/23 at 0000, Post-Op, Administer over 30 MinutesIndications:SURGICAL PROPHYLAXIS New Bag 09/23/2023 11:54 PM CDT 1 [...] First dose on Fri09/24/23 at 0800, Until DiscontinuedIndications:other: please specify Given 09/25/2023 8:05 AM CDT 40 mg [...] Mclean RN)2209 (See Alternative - Provider: Sole Aguilera RN) 0804 (See Alternative - Provider: Rika Lake RN) acetaminophen (TYLENOL) tablet 1,000 mg (COMPLETED) 1,000 mg, oral, ONCE, 1 dose, On Fri09/23/23 at 0600, Pre-Op 0637 (Given - Provider: Savita Caldwell, JENNA) acetaminophen (TYLENOL) tablet 1,000 mg(Linked Group 1) 1,000 mg, oral, FOUR TIMES A DAY, First dose on Fri09/23/23 at 1200, Until Discontinued, Post-Op 1324 (See Alternative - Provider: Santa Crandall, RN)1801 (Given - Provider: Michelle Schwartz, JENNA)2200 (Declined - Provider: Soco Paez RN) 0805 (Given - Provider: Anjali Mclean, JENNA)1228 (Given - Provider: Anjali Mclean, JENNA)1726 (Given - Provider: Anjali Mclean, JENNA)2209 (Given - Provider: Sole Aguilera, JENNA) 0804 [...] 08 (Given - Provider: Anjali Mclean RN) 0805 (Given - Provider: Rika Lake RN) ceFAZolin (Ancef) 1 g in sodium chloride 0.9 % 100 mL IV piggyback (COMPLETED) 1 g, Intravenous, EVERY 8 HOURS (NS), 2 doses, First dose (after last reorder) on Fri09/23/23 at 1600, Last dose on Fri09/24/23 at 0000, Post-Op, Administer over 30 Minutes 1603 (New Bag - Provider: Michelle Schwartz, JENNA)2354 (New Bag - Provider: Soco Paez RN) ceFAZolin (Ancef) 2 g in sterile water IV syringe (COMPLETED) Intravenous, ONCE ON INDUCTION, 1 dose, Starting on Fri09/23/23 at 0559, Until Fri09/23/23 at 0822, Intra-Op, Administer over 3 Minutes 0822 (New Bag - Provider: Nay Zamudio, VERNON, DRAFTING ENGINEER) dicyclomine (BentyL) tablet 20 mg 20 mg, oral, TWICE A DAY, First dose on Fri09/23/23 at 2000, Until Discontinued 1999 (Given - Provider: Soco Paez RN) 804 (Given - Provider: Anjali Mclean RN)1931 (Given - Provider: Sole Aguilera, JENNA) 08 (Given - Provider: Rika Lake, JENNA) docusate sodium (COLACE) capsule 100 mg 100 mg, oral, TWICE A DAY, First dose on Fri09/23/23 at 1145, Until Discontinued, Post-Op 1324 (Given - Provider: Santa Crandall, JENNA)1999 (Given - Provider: Soco Paez RN) 804 (Given - Provider: Anjali Mclean RN)1931 (Given - Provider: Sole Aguilera, JENNA) 08 (Given - Provider: Rika Lake, JENNA) DULoxetine [...] dose on Fri09/23/23 at 2200, Until Discontinued 2199 (Not Given - Provider: Soco Paez RN - Reason: Clinically appropriate (comment) - Comment: BG 146) 2199 (Not Given - Provider: Sole Aguilera RN [...] 08 (Given - Provider: Anjali Mclean RN) 0805 (Given - Provider: Rika Lake, JENNA) oxyCODONE (oxyCONTIN) extended release tablet 12 HR 10 mg (COMPLETED) 10 mg, oral, ONCE, 1 dose, On Fri09/23/23 at 0600, Pre-Op 0638 (Given - Provider: Savita Caldwell, JENNA) oxyCODONE (oxyCONTIN) extended release tablet 12 HR 20 mg 20 mg, oral, EVERY 8 HOURS, First dose on Fri09/23/23 at 1400, Until Discontinued 1324 (Given - Provider: Santa Crandall, RN)2200 (Declined - Provider: Soco Paez, JENNA) 06 (Given - Provider: Soco Paez RN)131 (Given - Provider: Anjali Mclean RN)220 (Given - Provider: Sole Aguilera, JENNA) 06 (Given - Provider: Waqas Rodriguez, JENNA) pramipexole (MIRAPEX) tablet 0.5 mg 0.5 mg, oral, EVERY EVENING, First dose on Fri09/23/23 at 2000, Until Discontinued 1999 (Given - Provider: Soco Paez RN) 193 (Given - Provider: Sole Aguilera, JENNA) simvastatin (ZOCOR) tablet 20 mg 20 mg, oral, AT BEDTIME, First dose on Fri09/23/23 at 2200, Until Discontinued 2116 (Given - Provider: Soco Paez RN) 2208 (Given - Provider: Sole Aguilera, JENNA) tranexamic acid (CYKLOKAPRON) 1,000 mg in sodium chloride 0.9 % 100 mL IV BOLUS (COMPLETED) 1,000 mg, Intravenous, ONCE, 1 dose, On Fri09/23/23 at 0600, Pre-Op, Administer over 10 Minutes 0814 (New Bag - Provider: Nay Zamudio APRN, DRAFTING ENGINEER) PRN Medication Order 09/23/2023 09/24/2023 09/25/2023 saline [...] taking PO 1204 (Given - Provider: Santa Crandall, RN)1431 (Given - Provider: Santa Crandall, RN)1453 (Given - Provider: Santa Crandall RN)1800 (Given - Provider: Michelle Schwartz RN)2117 (Given - Provider: Soco Paez RN)2346 (Given - Provider: Soco Paez, JENNA) 0453 (Given - Provider: Soco Paez RN)0805 (Given - Provider: Anjali Mclean RN)1034 (Given - Provider: Anjali Mclean RN)1309 (Given - Provider: Anjali Mclean RN)1519 (Given - Provider: Anjali Mclean RN)1726 (Given - Provider: Anjali Mclean RN)1931 (Given - Provider: Sole Aguilera RN)2209 (Given - Provider: Sole Aguilera RN) 0026 [...] NEEDED, Starting on Fri09/23/23 at 1337, Until Usha 09/25/23 at 1744, sleep vancomycin (VANCOCIN) powder (OR) [...] area documented in this encounter Care Teams Power Hair Clipper Relationship Specialty Start Date End Date [facility]- [address] [address] PCP - Primary Care Clinic 09/18/22 [place] [address] [place] [address] PCP - General 05/20/23 documented as of this encounter
--- OUTSIDE RECORDS SUMMARY | 2024-01-02 10:15 | XMS_ITS | Encounter Summary ---
Author Organization [facility] Address [address] [place] [address] [place] [address] Care Team Providers Care Machine Coil Assembler Name Role Phone [facility]- Unava ilable Hayes Mcelroy MD Primary Care Provider [phone] Encounter Details Date Type Department Care Team (Latest Contact Info) Description 10/28/2023 Travel Social History Tobacco Use Types Packs/Day Years Used Date Smoking Tobacco: Former Cigarettes Smokeless Tobacco: Never Comments:Quit august 2023 Alcohol Use Standard Drinks/Week Comments Not Currently 0 (1 standard drink = 0.6 oz pur e alcohol) [facility] Utilities Answer Date Recorded In the [...] any time in the past 12 m [facility], were you homeless or living in a residential (including now)? No 09/23/2023 Comments No Sex and Gender Information Value Date Recorded Sex Assigned at Not on file Legal Sex Female 7:28 PM CDT Gender Identity Not on file Sexual Orientation Not on file documented as of this encounter Plan of Treatment Not on file documented as of this encounter Visit Diagnoses Not on filedocumented in this encounter Care Teams Machine Coil Assembler Relationship Specialty Start Date End Date [facility] [address] [place] [address] PCP - Primary Care Clinic 09/18/22 [place] [address] [place] [address] PCP - General 05/20/23 documented as of this encounter
--- OUTSIDE RECORDS SUMMARY | 2024-01-02 10:15 | XMS_ITS | Encounter Summary ---
Author Organization [facility] Address [address] [place] [address] Care Team Providers Care Set Up Mechanic Stamping Machines Name Role Phone [facility]- Unava ilable Hayes Mcelroy MD Primary Care Provider [phone] Reason for Referral * (Routine) - Open Specialty Diagnoses / Procedures Referred By Contac t Referred To Contact Diagnoses Postoperative state S/P lumbar fusion Lumbar spine pain Procedures XR SPINE LUMBAR ROUTINE Jg Ivory PA-C [address] [address] Phone: tel: fax: Referral ID Status Reason Start Date Expiration Date Visits Re quested Visits Authorized [id number] Open 2023 1 1 Reason for Visit * Reason Comments Post op check Post op: 09/23/23 Philippe ateral RHW L2-Pelvis, with exploration of L3-4 fusion and replacement of rods L3-4 (SMS) Encounter Details Date Type Department Care Team (Latest Contact Info) Description 10/28/2023 9:15 AM CDT Office Visit [facility] ([facility]) [address] [place] [address] Jg Ivory PA-C [address] [facility] [address] [place], [place] [id number] Postoperative state (Primary Dx); S/P lumbar fusion; Lumbar spine pain Social History Tobacco Use Types Packs/Day Years Used Date Smoking Tobacco: Former Cigarettes Smokeless Tobacco: Never Tobacco Cessation:Counseling Given: Not Answered Comments:Quit august 2023 Alcohol Use Standard Drinks/Week Comments Not Currently 0 (1 standard drink = 0.6 oz pur e alcohol) [facility] Utilities Answer Date Recorded In the past 12 months has th e [employer], gas, oil, or water company threatened to [...] any time in the past 12 m [facility], were you homeless or living in a half-way (including now)? No 09/23/2023 Comments No Sex [...] documented in this encounter Progress Notes * Arlene Lugo - 10/28/2023 9:15 AM CDT Images from the original note were not included. Ramona Sanders 60F Refine SearchContact the [employer] Date of : 1960 Recent Address: [address] [place] [address] SAHARA Luke [address] Status of States Queried: View Details View Linked Records (2) Other Tools/Metrics Report Criteria First Name: Ramona Last Name: Marilyn : 1960 Linked Records ? Name: Ramona Marilyn : 1960 ID: [id number] Gender: Female Address: [address] [place] [address] SAH[place] Luke [address] Name: Ramona Sandhu Marilyn : 1960 ID: [id number] Gender: Female Address: [address] [place] [address] [place] Luke [address] Report generated on 10/27/2023. Report Date Range: [...] How should I use this information? ABOVE [id number] NARX SCORES NARCOTICS 540 ACTIVE RX 1 [...] # Dispenser Refill Daily Dose* Pymt Type SHOE CLERK 09/27/2023 09/25/2023 09/27/2023 1 Oxycontin Er 20 Mg Tablet 90.00 30 Ca Van [id number] Sup (6706) 0/090.00 [place] 09/26/2023 09/25/2023 09/26/2023 1 Oxycodone Hcl (Ir) 15 Mg Tab 60.00 30 Ca Van [id number] Sup (6706) 0/0 45.00 [place] 09/26/2023 09/25/2023 09/26/2023 1 Oxycodone Hcl (Ir) 10 Mg Tab 90.00 30 Ca Van [id number] Sup (6706) 0/0 45.00 [place] 09/25/2023 09/25/2023 2 Hydromorphone 4 Mg Tablet 40.00 7 [facility] [id number] Nor (1997) 0/0 114.29 [place] 09/25/2023 09/25/2023 2 Oxycontin Er 20 Mg Tablet 10.00 4 [facility] [id number] Nor (1997) 0/0 75.00 [place] 08/29/2023 08/29/2023 08/29/2023 1 Oxycontin Er 20 Mg Tablet 90.00 30 Ca Van [id number] Sup (6706) 0/090.00 [place] 08/29/2023 08/29/2023 08/29/2023 1 Oxycodone Hcl (Ir) 10 Mg Tab 90.00 30 Ca Van [id number] Sup (6706) 0/0 45.00 [place] 08/29/2023 08/29/2023 08/29/2023 1 Oxycodone Hcl (Ir) 15 Mg Tab 60.00 30 Ca Van [id number] Sup (6706) 0/0 45.00 [place] 08/20/2023 08/20/2023 08/24/2023 1 Lorazepam 1 Mg Tablet 90.00 30 Pe Buc [id number] Sup (6706) 0/0 3.00 [place] 07/30/2023 07/30/2023 07/30/2023 1 Oxycontin Er 20 Mg Tablet 90.00 30 Ca Van [id number] Sup (6706) 0/090.00 [place] 07/30/2023 07/30/2023 07/30/2023 1 Oxycodone Hcl (Ir) 10 Mg Tab 90.00 30 Ca Van [id number] Sup (6706) 0/0 45.00 [place] 07/30/2023 07/30/2023 07/30/2023 1 Oxycodone Hcl (Ir) 15 Mg Tab 60.00 30 Ca Van [id number] Sup (6706) 0/0 45.00 [place] 07/02/2023 07/02/2023 07/02/2023 1 Oxycodone Hcl (Ir) 15 Mg Tab 60.00 30 Ca Van [id number] Sup (6706) 0/0 45.00 [place] 07/02/2023 07/02/2023 07/02/2023 1 Oxycodone Hcl (Ir) 10 Mg Tab 90.00 30 Ca Van 7518781 Sup (6706) 0/0 45.00 [place] 07/02/2023 07/02/2023 07/02/2023 1 Oxycontin Er 20 Mg Tablet 90.00 30 Ca Van [id number] Sup (6706) 0/090.00 [place] Providers Total: 4 Showing 1-4 of 4 Items View 1 of 1 Name Address [facility] State Zipcode Phone Cate Thomas [address] [place] [address] Kiara Álvarez, MSN [address] [place] [address] Tasha Hendrickson [address] [place] [address] Vladimir Paez [address] [facility] [address] [facility] [address] Showing 1-4 of 4 Items View 1 of 1 Pharmacies Total: 2 Showing 1-2 of 2 Items View 1 of 1 Name Address [facility] State Zipcode Phone [employer] [phone] [facility] [address] [facility] (1997) [address] [place] [address] As a proxy delegate, I have queried [...] I had a long talk with Ramona Benavides Willow today regarding the diagnosis and treatment recommendations. [...] by the afo rementioned provider. PROVIDER ATTESTATION: I, Jg Ivory PA-C attest the above information is a [...] Lumbago documented in this encounter Care Teams Set Up Mechanic Stamping Machines Relationship Specialty Start Date End Date [facility]- [address], [place] [address] PCP - Primary Care Clinic 09/18/22 [place] [address] [place] [address] PCP - General 05/20/23 documented as of this encounter
--- OUTSIDE RECORDS SUMMARY | 2024-01-02 10:15 | XMS_ITS | Encounter Summary ---
Author Organization [facility] Address [address] [place] [address] Care Team Providers Care Oracle Business Intelligence Developer Name Role Phone [facility]- Unava ilable Hayes Mcelroy MD Primary Care Provider [phone] Reason for Referral * (Routine) - Open Specialty Diagnoses / Procedures Referred By Contac t Referred To Contact Diagnoses S/P lumbar fusion Procedures XR SPINE LUMBAR ROUTINE Brock Sawyer MD Phone: tel: fax: Referral ID Status Reason Start Date Expiration Date Visits Re quested Visits Authorized [id number] Open 12/21/2023 1 1 Reason for Visit * Reason Comments Post op check Encounter Details Date Type Department Care Team (Late st Contact Info) Description 2023 9:40 AM CDT Office Visit [facility] ([facility]) [address] [place] [address] Brock Sawyer MD [address] [address] S/P lumbar fusion (Primary Dx) Social History Tobacco Use Types Packs/Day Years Used Date Smoking Tobacco: Former Cigarettes Smokeless Tobacco: Never Tobacco Cessation:Counseling Given: Not Answered Comments:Quit august 2023 Alcohol Use Standard Drinks/Week Comments Not Currently 0 (1 standard drink = 0.6 oz pur e alcohol) [facility] Utilities Answer Date Recorded In the [...] any time in the past 12 m [facility], were you homeless or living in a care home (including now)? No 09/23/2023 Comments No Sex [...] and complete. Brock Sawyer MD SPINE SURGEON/ [facility] * Missy Lofton, UNDERWRITING CLERKS SUPERVISOR - 2023 9:40 AM CDT RX Summary Summary Total Prescriptions 44 Total Private Pay 1 Total Prescribers 4 Total Pharmacies 2 Narcotics (excluding Buprenorphine) Current MME/day 180.00 30 Day Avg MME/day 165.00 Current Qty 64 Buprenorphine Current mg/day 0.00 30 Day Avg mg/day 0.00 Current Qty 0 UNINTENTIONAL OVERDOSE RISK SCORE MODEL How should I use this information? ABOVE [id number] NARX SCORES NARCOTICS 533 ACTIVE RX 3 [...] # Dispenser Refill Daily Dose* Pymt Type RETAIL TRAINING MANAGER 10/29/2023 10/29/2023 10/29/2023 1 Oxycodone Hcl (Ir) 15 Mg Tab 60.00 30 Ca Van [id number] Sup (6706) 0/0 45.00 [place] 10/29/2023 10/29/2023 10/29/2023 1 Oxycodone Hcl (Ir) 10 Mg Tab 90.00 30 Ca Van 4884823 Sup (6706) 0/0 45.00 [place] 10/29/2023 10/29/2023 10/29/2023 1 Oxycontin Er 20 Mg Tablet 90.00 30 Ca Van 0616018 Sup (6706) 0/090.00 [place] 09/27/2023 09/25/2023 09/27/2023 1 Oxycontin Er 20 Mg Tablet 90.00 30 Ca Van 9885020 Sup (6706) 0/090.00 [place] 09/26/2023 09/25/2023 09/26/2023 1 Oxycodone Hcl (Ir) 10 Mg Tab 90.00 30 Ca Van 1433703 Sup (6706) 0/0 45.00 [place] 09/26/2023 09/25/2023 09/26/2023 1 Oxycodone Hcl (Ir) 15 Mg Tab 60.00 30 Ca Van [id number] Sup (6706) 0/0 45.00 M[place] 09/25/2023 09/25/2023 2 Hydromorphone 4 Mg Tablet 40.00 7 [facility] [id number] Nor (1997) 0/0 114.29 [place] 09/25/2023 09/25/2023 2 Oxycontin Er 20 Mg Tablet 10.00 4 [facility] [id number] Nor (1997) 0/0 75.00 [place] 08/29/2023 08/29/2023 08/29/2023 1 Oxycodone Hcl (Ir) 10 Mg Tab 90.00 30 Ca Van 8564156 Sup (6706) 0/0 45.00 [place] 08/29/2023 08/29/2023 08/29/2023 1 Oxycodone Hcl (Ir) 15 Mg Tab 60.00 30 Ca Van 2104774 Sup (6706) 0/0 45.00 [place] 08/29/2023 08/29/2023 08/29/2023 1 Oxycontin Er 20 Mg Tablet 90.00 30 Ca Van 8114434 Sup (6706) 0/090.00 [place] 08/20/2023 08/20/2023 08/24/2023 1 Lorazepam 1 Mg Tablet 90.00 30 Pe Buc [id number] Sup (6706) 0/0 3.00 [place] 07/30/2023 07/30/2023 07/30/2023 1 Oxycodone Hcl (Ir) 15 Mg Tab 60.00 30 Ca Van 7836051 Sup (6706) 0/0 45.00 [place] 07/30/2023 07/30/2023 07/30/2023 1 Oxycontin Er 20 Mg Tablet 90.00 30 Ca Van 9033203 Sup (6706) 0/090.00 [place] 07/30/2023 07/30/2023 07/30/2023 1 Oxycodone Hcl (Ir) 10 Mg Tab 90.00 30 Ca Van 8776942 Sup (1296) 0/0 45.00 [place] 07/02/2023 07/02/2023 07/02/2023 1 Oxycontin Er 20 Mg Tablet 90.00 30 Ca Van 1353751 Sup (6706) 0/090.00 [place] 07/02/2023 07/02/2023 07/02/2023 1 Oxycodone Hcl (Ir) 10 Mg Tab 90.00 30 Ca Van 6205616 Sup (6706) 0/0 45.00 [place] 07/02/2023 07/02/2023 07/02/2023 1 Oxycodone Hcl (Ir) 15 Mg Tab 60.00 30 Ca Van 2747889 Sup (9576) 0/0 45.00 [place] 06/08/2023 06/02/2023 06/09/2023 1 Oxycontin Er 20 Mg Tablet 69.00 23 Ca Van 4044679 Sup (0406) 0/090.00 [place] 06/03/2023 06/02/2023 06/03/2023 1 Oxycodone Hcl (Ir) 15 Mg Tab 60.00 30 Ca Van 5018234 Sup (0596) 0/0 45.00 [place] 06/02/2023 06/02/2023 06/02/2023 1 Oxycodone Hcl (Ir) 10 Mg Tab 90.00 30 Ca Van 2552993 Sup (6706) 0/0 45.00 [place] 06/02/2023 06/02/2023 06/02/2023 1 Oxycodone Hcl (Ir) 5 Mg Tablet 28.00 5 Ca Van 0997708 Sup (6706)0/0 42.00 [place] 06/02/2023 06/02/2023 06/02/2023 1 Oxycontin Er 20 Mg Tablet 21.00 7 Ca Van 3107314 Sup (6706) 0/0 90.00 [place] 05/03/2023 05/01/2023 05/07/2023 1 Oxycodone Hcl (Ir) 15 Mg Tab 60.00 30 Sa Alvin 1057159 Sup (2316) 0/0 45.00 [place] 05/01/2023 05/01/2023 05/02/2023 1 Oxycodone Hcl (Ir) 10 Mg Tab 90.00 30 Sa Alvin 6126563 Sup (0086) 0/0 45.00 [place] 05/01/2023 05/01/2023 05/02/2023 1 Oxycontin Er 20 Mg Tablet 90.00 30 Sa Alvin 7104934 Sup (9756) 0/090.00 [place] 04/05/2023 04/02/2023 04/06/2023 1 Oxycodone Hcl (Ir) 15 Mg Tab 60.00 30 Ca Van 6235188 Sup (5576) 0/0 45.00 [place] 04/03/2023 04/02/2023 04/03/2023 1 Oxycontin Er 20 Mg Tablet 90.00 30 Ca Van 3622207 Sup (6706) 0/090.00 [place] 04/02/2023 04/02/2023 04/02/2023 1 Oxycodone Hcl (Ir) 10 Mg Tab 90.00 30 Ca Van 3748529 Sup (6156) 0/0 45.00 [place] 03/05/2023 03/03/2023 03/09/2023 1 Oxycodone Hcl (Ir) 15 Mg Tab 60.00 30 Ca Van 5084999 Sup (6706) 0/0 45.00 [place] 03/03/2023 03/03/2023 03/03/2023 1 Oxycontin Er 20 Mg Tablet 90.00 30 Ca Van 3067495 Sup (6706) 0/090.00 [place] 03/03/2023 03/03/2023 03/03/2023 1 Oxycodone Hcl (Ir) 10 Mg Tab 90.00 30 Ca Van 8721876 Sup (6706) 0/0 45.00 [place] 02/02/2023 01/28/2023 02/06/2023 1 Oxycodone Hcl (Ir) 15 Mg Tab 60.00 30 Ca Van 4162955 Sup (4016) 0/0 45.00 [place] 01/28/2023 01/28/2023 01/30/2023 1 Oxycontin Er 20 Mg Tablet 90.00 30 Ca Van 0996463 Sup (6706) 0/090.00 [place] 01/28/2023 01/28/2023 01/30/2023 1 Lorazepam 1 Mg Tablet 90.00 30 Pe Buc 5351559 Sup (6706) 0/0 3.00 [place] 01/28/2023 01/28/2023 01/30/2023 1 Oxycodone Hcl (Ir) 10 Mg Tab 41.00 14 Ca Van 0931753 Sup (6706) 0/0 43.93 [place] 01/28/2023 01/28/2023 01/30/2023 1 Oxycodone Hcl (Ir) 10 Mg Tab 49.00 16 Ca Van 9792118 Sup (6706) 0/0 45.94 MME [place] 01/03/2023 01/01/2023 01/06/2023 1 Oxycodone Hcl (Ir) 15 Mg Tab 60.00 30 Ca Van 6808152 Sup (8996) 0/0 45.00 [place] 01/01/2023 01/01/2023 01/01/2023 1 Oxycontin Er 20 Mg Tablet 90.00 30 Ca Van 0378681 Sup (7386) 0/090.00 [place] 01/01/2023 01/01/2023 01/01/2023 1 Oxycodone Hcl (Ir) 10 Mg Tab 90.00 30 Ca Van 7069832 Sup (6706) 0/0 45.00 [place] 12/14/2022 12/04/2022 12/14/2022 1 Oxycodone Hcl (Ir) 15 Mg Tab 50.00 25 Ca Van 1740057 Sup (6706) 0/0 45.00 [place] 12/04/2022 12/04/2022 12/04/2022 1 Oxycontin Er 20 Mg Tablet 90.00 30 Ca Van 5835199 Sup (6706) 0/090.00 [place] 12/04/2022 12/04/2022 12/04/2022 1 Oxycodone Hcl (Ir) 15 Mg Tab 10.00 5 Ca Van 7052021 Sup (6706) 0/0 45.00 [place] 12/04/2022 12/04/2022 12/04/2022 1 Oxycodone Hcl (Ir) 10 Mg Tab 90.00 30 Ca Van 3616668 Sup (6706) 0/0 45.00 [place] Providers Total: 4 Showing 1-4 of 4 Items View 1 of 1 Name Address [facility] State Zipcode Phone Cate Thomas [address] [facility] [address] Kiara Álvarez, MSN [address] [facility] [address] Tasha Hendrickson [address] [place] [id number] Vladimir Paez [address] [facility] [address] [place] [address] Showing 1-4 of 4 Items View 1 of 1 Pharmacies Total: 2 Showing 1-2 of 2 Items View 1 of 1 Name Address [facility] State Zipcode Phone [facility] (1932) [address] [place] [address] [facility] (1997) [address] [place] [address] As a proxy delegate, I have [...] no Date: Prior Spinal Treatments/ Procedures: 09/23/23 [facility] 01/16/22 [facility] [place] [facility] documented in this encounter Plan of Treatment Scheduled Orders Name Type Priority Associated Diagnoses Orde r Schedule XR SPINE LUMBAR ROUTINE Imaging Routine S/P lumbar fusion Expected: 12/21/2023 (Approximate), Expires: 02/20/2024 documented as of this encounter Visit Diagnoses Diagnosis S/P lumbar fusion- Primary Arthrodesis status documented in this encounter Care Teams Oracle Business Intelligence Developer Relationship Specialty Start Date End Date [facility]- [address] [place] [address] PCP - Primary Care Clinic 09/18/22 [place] [address] [place] [address] PCP - General 05/20/23 documented as of this encounter
--- OUTSIDE RECORDS SUMMARY | 2024-01-02 10:15 | XMS_ITS | Clinical Summary ---
Author Organization [facility] Address [address] [place] [address] [place] [address] Care Team Providers Care Wire Puller Name Role Phone [facility]- Unava ilable Hayes Mcelroy MD Primary Care Provider [phone] Allergies Active Allergy Reactions Criticality Noted Date Comments Atorvastatin Other 09/30/2019 Skin irritation around eyes Baclofen Nausea Low 12/23/2012 Wfgxxuivthqt-Jfvyddi-Aatgil e Low 12/23/2012 Cyclobenzaprine Low 04/24/2011 Other [...] 3 Active naloxone (NARCAN) 4 mg/actuation Nasal [place] Administer one dose (4 mg) into nostril [...] (11/11/2022): Added automatically from request for surgery [id number] Chronic anemia 08/22/2021 Type 2 diabetes mellitus [...] Description 2023 9:40 AM CDT Office Visit [facility] ([facility]) [address] [facility] [address] [place] [phone] Brock Sawyer MD S/P lumbar fusion (Primary Dx) 2023 Travel 10/28/2023 9:15 AM CDT Office Visit [facility] ([facility]) [address] [employer] [facility] [address] [place] [address] Jg Ivory PA-C Postoperative state (Primary Dx); S/P lumbar fusion; Lumbar spine pain 10/28/2023 Travel from Last 3 Months Social History Tobacco Use Types Packs/Day Years Used Date Smoking Tobacco: Former Cigarettes Smokeless Tobacco: Never Tobacco Cessation:Counseling Given: Not Answered Comments:Quit august 2023 Alcohol Use Standard Drinks/Week Comments Not Currently 0 (1 standard drink = 0.6 oz pur e alcohol) [facility] Utilities Answer Date Recorded In the past 12 months has e [employer], gas, oil, or water [employer] threatened to shut off services in your [...] any time in the past 12 m [facility], were you homeless or living in a senior care (including now)? No 09/23/2023 Comments No Sex [...] 10/26/2018, 08/17/2018 Medical Devices Implanted Type Area Photograph Finisher Device Identifier Shelf Expiration Date Model / Serial / Lot Beltran 50mm 5.5mm Ccm Curv - [id number] Implanted:Qty : 1 on 09/23/2023 by Brock Sawyer MD at [facility] Beltran N/A: Spine Lumbar [employer] [id number] / / Beltran 60mm 5.5mm Ccm Curv - [id number] Implanted:Qty : 1 on 09/23/2023 by Brock Sawyer MD at [facility] Beltran N/A: Spine Lumbar [employer] Inc [id number] / / Set Screw Solera Brk Off - [id number] Implanted:Qty : 4 on 09/23/2023 by Brock Sawyer MD at [facility] Screw/An chor N/A: Spine Lumbar [employer] Inc [id number] / / Insurance [email or web address] MEDICARE PART A & B Advance Directives For more information, please contact: [phone] * Full Code (Latest Code Status on File) Date Activated Date Inactivated Comments 09/24/2023 3:26 PM 09/25/2023 5:49 PM Question Answer Comments How was code status determined? Patient * Full Code Date Activated Date Inactivated Comments 09/23/2023 5:59 AM 09/23/2023 9:48 AM Question Answer Comments How was code status determined? Previous [facility] Care Teams Wire Puller Relationship Specialty Start Date End Date [facility]- [address] [place] [address] PCP - Primary Care Clinic 09/18/22 [place] [address] [place] [address] PCP - General 05/20/23
--- OUTSIDE RECORDS SUMMARY | 2024-01-02 10:15 | XMS_ITS | Encounter Summary ---
Author Organization [facility] Address [address] [place] [address] [place] [address] Care Team Providers Care Icu Staff Nurse Name Role Phone [facility]- Unava ilable Hayes Mcelroy MD Primary Care Provider [phone] Encounter Details Date Type Department Care Team [...] any time in the past 12 m [facility], were you homeless or living in a nursing home (including now)? No 09/23/2023 Comments No Sex and Gender Information Value Date Recorded Sex Assigned at Not on file Legal Sex Female 7:28 PM CDT Gender Identity Not on file Sexual Orientation Not on file documented as of this encounter Plan of Treatment Not on file documented as of this encounter Visit Diagnoses Not on filedocumented in this encounter Care Teams Icu Staff Nurse Relationship Specialty Start Date End Date [facility] [address] [place] [address] PCP - Primary Care Clinic 09/18/22 [place] [address] [place] [address] PCP - General 05/20/23 documented as of this encounter
--- OUTSIDE RECORDS SUMMARY | 2024-01-02 10:15 | XMS_ITS | Referral Summary ---
Author Organization [facility] Address [address] [place] [address] Care Team Providers Care Pet Store Merchandiser Name Role Phone Tommy Mcelroy MD Primary Care Provider [phone] Allergies Active Allergy Reactions Criticality Noted Date Comments Baclofen 12/23/2012 Diphenhydramine-Zinc Acetate Other (See Comments) 04/24/2011 Makes restless leg symptoms worse. Compazine Anaphylaxis 10/23/2004 Cyclobenzaprine Other (See Comments) 04/24/2011 Makes restless leg symptoms worse. Cyclobenzaprine Hcl 12/23/2012 Methocarbamol Other (See Comments) 04/24/2011 Makes restless leg symptoms worse. Mirtazapine 12/23/2012 Flgnwkbrgdpo-Lnonijy-Wysc ine 12/23/2012 Medications pramipexole (MIRAPEX) 0.125 MG [...] on file Legal Sex Female 3:09 AM SOLAR DESIGNER Gender Identity Not on file Sexual Orientation Not on file Last Filed Vital Signs Vital Sign Reading Time Taken Comments Blood Pressure 111/70 01/08/2023 1:50 PM SOLAR DESIGNER Pulse 73 01/08/2023 1:50 PM SOLAR DESIGNER Temperature 36.7 C (98 F) 01/08/2023 1:50 PM SOLAR DESIGNER Respiratory Rate 18 01/08/2023 1:50 PM SOLAR DESIGNER Oxygen Saturation 96% 01/08/2023 1:50 PM SOLAR DESIGNER Inhaled Oxygen Concentration - - Weight 77.1 kg (170 lb) 11/27/2014 3:41 PM CDT Height 175.3 cm (5' 9) 11/27/2014 3:41 PM CDT Body Mass Index 25.1 11/27/2014 3:41 PM CDT Plan of Treatment Not on file Medical Devices Implanted Type Area Electrical Engineering Designer Device Identifier Shelf Expiration Date Model / Serial / Lot Graft Bone Foam Pack Vitoss 10ml Bio Active Implanted:Qty: 1 on 05/02/2011 at [facility] N/A: Spine Lumbar 10/04/2012 / / [id number] Iom Supplies Implanted:Qty: 1 on 05/02/2011 at [facility] Cell Saver Standby Implanted:Qty: 1 on 05/02/2011 at [facility] Graft Bone Crush Canc 15ml [id number] Implanted:Qty: 1 on 05/02/2011 at [facility] N/A: Spine Lumbar [id number] / [id number] / 14x12 Align Implanted:Qty: 1 on 05/02/2011 at [facility] N/A: Spine Lumbar [id number] / / [id number] 16x12 Align Implanted:Qty: 1 on 05/02/2011 at [facility] N/A: Spine Lumbar [id number] / / [id number] 25mm Plate Implanted:Qty: 1 on 05/02/2011 at [facility] N/A: Spine Lumbar [id number] / / [id number] 25mm Screw Implanted:Qty: 4 on 05/02/2011 at [facility] N/A: Spine Lumbar [id number] / / [id number] Imp Washer Syn Israel 13.5x5.5mm Implanted:Qty: 2 on 05/02/2011 at [facility] N/A: Spine Lumbar 219.951 / / 0106 [id number] Imp Scr Syn Canc 6.2z280ms Ft Ti Implanted:Qty: 2 on 05/02/2011 at [facility] N/A: Spine Lumbar 418.025 / / 0106 [id number] Spf-Plus 60/M Implantable Spinal Fusion Stimulator Implanted:Qty: 1 on 03/02/2014 by Brock Sawyer MD at [facility] N/A: Back BIOMET INC 07/03/2015 10-1398M / [id number] / Graft Bone Foam Pack Vitoss 10ml Bio Active Implanted:Qty: 1 on 03/02/2014 by Brock Sawyer MD at [facility] N/A: Back ORTHOVITA 09/10/2015 9917-3523 / / [id number] Imp Scr Medt 5.5/6.0mm Solera 6.5x45mm Ma [id number] Implanted:Qty: 4 on 03/02/2014 by Brock Sawyer MD at [facility] N/A: Back MEDTRONIC INC [id number] / / [id number] 2014 Imp Scr Medt 5.5/6.0mm Solera 8.5x70mm Ma [id number] Implanted:Qty: 2 on 03/02/2014 by Brock Swayer MD at [facility] N/A: Back MEDTRONIC INC [id number] / / [id number] 01 MAR 2014 Imp Scr Set Medt Solera Break Off 5.5mm Ti [id number] Implanted:Qty: 6 on 03/02/2014 by Brock Sawyer MD at [facility] N/A: Back MEDTRONIC INC [id number] / / [id number] 01 MAR 2014 Imp Beltran Medt Solera Cvd 5.7s182rb Ti [id number] Implanted:Qty: 2 on 03/02/2014 by Brock Sawyer MD at [facility] N/A: Back MEDTRONIC INC [id number] / / [id number] 02 MAR 2014 Imp Scr Syn Can 4.0x20mm Ft Ss 206.020 Implanted:Qty: 2 on 03/02/2014 by Brock Sawyer MD at [facility] N/A: Back SYNTHES-STRATEC 206.020 / / Impulse Implanted:Qty: 1 on 03/02/2014 by Brock Sawyer MD at [facility] Explanted Type Area Electrical Engineering Designer Device Identifier Shelf Expiration Date Model / Serial / Lot Imp Scr Danek Sext Can 6.5x40mm Legacy Ti Implanted:Qty: 2 on 05/02/2011 at [facility] Explanted:Qty: 2 on 03/02/2014 at [facility] N/A: Spine Lumbar [id number] / / [id number] 01MAY2011 Imp Scr Danek Set G4 Internal Hex [id number] Implanted:Qty: 4 on 05/02/2011 at [facility] Explanted:Qty: 4 on 03/02/2014 at [facility] N/A: Spine Lumbar [id number] / / [id number] 01MAY2011 Imp Beltran Danek Sext 60mm Ti [id number] Implanted:Qty: 2 on 05/02/2011 at [facility] Explanted:Qty: 2 on 03/02/2014 at [facility] N/A: Spine Lumbar [id number] / / [id number] 01MAY2011 Imp Scr Danek Sext Can 6.5x45mm Legacy Ti Implanted:Qty: 2 on 05/02/2011 at [facility] Explanted:Qty: 2 on 03/02/2014 at [facility] N/A: Spine Lumbar [id number] / / [id number] 01MAY2011 Description:BILATERAL SCREWS FROM S1, SCREW HEAD [...] LAB - BLOOD ORDERABLES Final Re sult [facility] [address] [address], [facility] [place] [phone] from Last 3 Months or Most Recently Relevant to Health Maintenance Insurance MEDICARE [employer] MEDICARE [employer] OTHER OTHER none (Work) [id number] [place] [id number] [facility] [employer] [employer]ANCE Advance Directives For more information, please contact: [phone] * Full Code (Latest Code Status on File) Date Activated Date Inactivated Comments 05/02/2011 8:26 PM 05/06/2011 2:41 PM * Full Code Date Activated Date Inactivated Comments 05/02/2011 2:17 PM 05/02/2011 8:26 PM Care Teams Pet Store Merchandiser Relationship Specialty Start Date End Date Tommy Mcelroy MD PCP - General Family Practice 04/16/11
--- OUTSIDE RECORDS SUMMARY | 2024-01-02 10:16 | XMS_ITS | Continuity of Care Document ---
Author Organization [facility] Address [address] [place] [address] Care Team Providers Care Routing Clerk Name Role Phone [facility] Unavailable Unav ailable Procedures Procedure Date Dest [...] Diagnoses Date Provider Providers Copied on Encounter [facility], [address] [place], [place], [id number], [facility] No Information [facility]. [address] [place], [place], [id number], . tel:[phone] Referring Provider: Divina Deras, [address] [place], [address]. tel:[phone] [facility], [address], [place], [id number], [facility] No Information [facility]. [address] [place] [address] [place], [id number], [place]. tel:[phone] Referring Provider: Divina Deras, [address] [place] [address], [address]. tel:[phone] [facility], [address] [place] [address], [id number], [facility] [place] [facility] No Information [facility] [place]. [address] [place] [address] Devendra Blanco, [place], [id number], [place]. tel:[phone] Referring Provider: Divina Deras, [address] [place] [address], [address]. tel:[phone] [facility], [address] [place] [address], [id number], [facility] No Information [facility]. [address] [place] [address], [id number], [place]. tel:[phone] Referring Provider: Divina Deras, [address] [place] [address], [address]. tel:[phone] [facility], [address] [place] [address], [id number], [facility] No Information [facility]. [address] [place] [address], [id number], . tel:[phone] Referring Provider: Divina Deras, [address] [place] [address], [address]. tel:[phone] Family History Family Member Type Diagnosis Age [...]
--- OUTSIDE RECORDS SUMMARY | 2024-01-02 10:16 | XMS_ITS | Continuity of Care Document ---
Author Organization [facility] Address [address] [place] [address] Phone Care Team Providers Care County Supervisor Name Role Phone Greg Hicks Unavailable Unavailab [...] Copied on Encounter [facility] , [address], [place], [place], [id number], tel:[phone] [facility] Encounter for other specified surgical aftercare Jah Garza. [facility], [address], [address], [place], [address], . tel:[phone] Referring Provider: Greg Tai, [facility] [address], [address], [place], [address]. tel:[phone] Family History Family Member Type Diagnosis Age At Onset Brother Problem (finding) Depression Payers Payer name Insurance type Covered alliance party ID Authorviolet chao(s) [employer] Medicare [facility] CI [id number] Social History Type Description Quantity Date [...]
--- OUTSIDE RECORDS SUMMARY | 2024-01-02 10:16 | XMS_ITS | Clinical Summary ---
Author Organization [facility] Address [place], [place] [address] Care Team Providers Care Social Media Director Name Role Phone aHyes Mcelroy MD Primary Care Provider [phone] Allergies Active Allergy Reactions Criticality Noted Date [...] Description 10/16/2023 11:30 AM CDT Ancillary Procedure [facility] [address] [place] [address] 10/16/2023 11:15 AM CDT Ancillary Procedure [facility] [address] [place] [address] 10/16/2023 Orders Only [facility] [address] [place] [address] Greg Tyson PA <No scans attached> from [...] Comments Blood Pressure 105/55 01/17/2022 9:09 AM CONTACT ACID PLANT OPERATOR HELPER Pulse 71 01/17/2022 11:25 AM CONTACT ACID PLANT OPERATOR HELPER Temperature 36.8 C (98.3 F) 01/17/2022 9:09 AM CONTACT ACID PLANT OPERATOR HELPER Respiratory Rate 16 01/17/2022 11:25 AM CONTACT ACID PLANT OPERATOR HELPER Oxygen Saturation 91% 01/17/2022 11:25 AM CONTACT ACID PLANT OPERATOR HELPER Inhaled Oxygen Concentration - - Weight 72.6 kg (160 lb) 04/11/2022 9:58 AM CONTACT ACID PLANT OPERATOR HELPER Height 175.3 cm (5' 9) 04/11/2022 9:58 AM CONTACT ACID PLANT OPERATOR HELPER Body Mass Index 23.63 04/11/2022 9:58 AM CONTACT ACID PLANT OPERATOR HELPER Plan of Treatment Health Maintenance Due Date [...] 01/10/2022, Additional history exists COVID-19 vaccine series (6 - 2024- season) 2023 08/12/2023, 07/30/2021, 12/02/2020, Additional history exists Influenza for age 50-64 10/12/2023 Pap test for age 21-65 11/21/2025 , 11/21/2022, 07/28/2017, Additional history exists Medical Devices Implanted Type Area Inspector Missile Device Identifier Shelf Expiration Date Model / Serial / Lot Bone Matrix 10cc Progenix Plusputty Dbm - [id number] Implanted:Qty : 1 on 12/01/2019 by Brock Sawyer MD at [facility] N/A: Lumbar Vertebrae Medtronic Spine/Ortho 06/15/2021 [id number]# / / [id number] Spacer Lmbr 9-45d87yr 11deg Elevate Extra-Lordoti c Peek Titn - [id number] Implanted:Qty : 1 on 12/01/2019 by Brock Sawyer MD at [facility] N/A: Lumbar Vertebrae Medtronic Spine/Ortho 09/15/2027 [id number]# / / [id number] Screw Lmbr Post 6.5x50mm Solera 5.5/6 Va Cocr - [id number] Implanted:Qty : 4 on 12/01/2019 by Brock Sawyer MD at [facility] N/A: Lumbar Vertebrae Medtronic Spine/Ortho [id number]# / / 5.5 X 500mm Cc Beltran Implanted:Qty : 1 on 12/01/2019 by Brock Sawyer MD at [facility] N/A: Lumbar Vertebrae Medtronic Spine/Ortho [id number] / / Bone 1-4mm 90cc Medtronic Chips Canclls Freeze Dried - [id number] Implanted:Qty : 1 on 12/01/2019 by Brock Sawyer MD at [facility] N/A: Lumbar Vertebrae Medtronic Spine/Ortho 04/24/2024 493712# / / [id number]: [id number] Bone Matrix Md Infuse Bmp - [id number] Implanted:Qty : 1 on 12/01/2019 by Brock Sawyer MD at [facility] N/A: Lumbar Vertebrae Medtronic Spine/Ortho 11/09/2021 [id number]# / / [id number] Bone 1-4mm 30cc Medtronic Chips Canclls Freeze Dried - [id number] Implanted:Qty : 1 on 12/01/2019 by Brock Sawyer MD at [facility] N/A: Lumbar Vertebrae Medtronic Spine/Ortho 05/31/2024 966368# / / ID: [id number] Spacer Lmbr 11-30y97af 12deg Elevate Extra-Lordoti c Peek Tit - [id number] Implanted:Qty : 1 on 12/01/2019 by Brock Sawyer MD at [facility] N/A: Lumbar Vertebrae Medtronic Spine/Ortho 05/31/2027 8968211# / / [id number] Bone Matrix 10cc Progenix Putty Dbm - [id number] Implanted:Qty : 1 on 12/01/2019 by Brock Sawyer MD at [facility] N/A: Lumbar Vertebrae Medtronic Spine/Ortho 01/15/2021 022441# / / [id number] Set Screw Lmbr Ant 5.5mm Solera Break Off - [id number] Implanted:Qty : 10 on 12/01/2019 by Brock Sawyer MD at [facility] Explanted:Qty : 1 on 06/27/2020 by Brock Sawyer MD at [facility] N/A: Lumbar Vertebrae Medtronic Spine/Ortho 4721676# / / Vitoss 1.2cc [id number] - [id number] Implanted:Qty : 1 on 01/17/2021 by Brock Sawyer MD at [facility] N/A: Cervical Vertebrae [place] Spine 05/07/2021 1323-2633 / / [id number] Anterior Cervical Cage 7mm X 12mm X 14mm [id number] - [id number] Implanted:Qty : 1 on 01/17/2021 by Brock Sawyer MD at [facility] N/A: Cervical Vertebrae [place] Spine 01/25/2023 [id number] / / [id number] Dallam View Plates 22mm [id number] - [id number] Implanted:Qty : 1 on 01/17/2021 by Brock Sawyer MD at [facility] N/A: Cervical Vertebrae [place] Spine [id number] / / Dallam View Self-Starting Variable Screw 4.0x14mm [id number] - [id number] Implanted:Qty : 3 on 01/17/2021 by Brock Sawyer MD at [facility] N/A: Cervical Vertebrae Bri Spine [id number] / / [place]allam View Self-Starting Variable Screw 4.5x14mm [id number] - [id number] Implanted:Qty : 1 on 01/17/2021 by Brock Sawyer MD at [facility] N/A: Cervical Vertebrae [id number] / / Vitoss Bimodal Implanted:Qty : 1 on 08/21/2021 by Brock Sawyer MD at [facility] N/A: Cervical Vertebrae Bri Spine 05/07/2022 3513-2730 / / [id number] Bone Matrix 5cc Stimulan Kit Rapid Cure - [id number] Implanted:Qty : 1 on 08/21/2021 by Brock Sawyer MD at [facility] N/A: Cervical Vertebrae Biocomposites Inc 09/10/2023 620-005 / / [id number] 3.5 X 12mm Waddy Oct Polyaxial Screw Implanted:Qty : 3 on 08/21/2021 by Brock Sawyer MD at [facility] N/A: Cervical Vertebrae K2M Group [employer] Inc 5568-44283 / / 34.0 X 12mm Waddy Oct Polyaxial Screw Implanted:Qty : 1 on 08/21/2021 by Brock Sawyer MD at [facility] N/A: Cervical Vertebrae K2M [employer] Holdings Inc 7526-11438 / / Set Screw Implanted:Qty : 4 on 08/21/2021 by Brock Sawyer MD at [facility] N/A: Cervical Vertebrae K2M Group Holdings Inc 6424-53227 / / Contoured Rods4.0 X 25mm Implanted:Qty : 2 on 08/21/2021 by Brock Sawyer MD at [facility] N/A: Cervical Vertebrae K2M [employer] Inc 7899-73492 / / Bone Matrix Sm Infuse Bmp - [id number] Implanted:Qty : 1 on 01/16/2022 by Brock Sawyer MD at [facility] Lumbar Vertebrae Medtronic Spine/Ortho 02/10/2024 6114675 / / [id number] Bone Matrix 5cc Progenix Plus Putty Dbm - [id number] Implanted:Qty : 1 on 01/16/2022 by Brock Sawyer MD at [facility] Spine Medtronic Spine/Ortho 05/02/2023 616459 / [id number] / Bone 1-4mm 15cc Medtronic Chips Canclls Freeze Dried - [id number] Implanted:Qty : 1 on 01/16/2022 by Brock Sawyer MD at [facility] Spine Medtronic Spine/Ortho 12/04/2025 [id number] / [id number] / [id number] Implant 16mm Implanted:Qty : 1 on 01/16/2022 by Brock Sawyer MD at [facility] Spine Medtronic Spine/Ortho 07/05/2025 [id number] / / [id number] Luís Tas Bone Screw Implanted:Qty : 1 on 01/16/2022 by Brock Sawyer MD at [facility] Spine Medtronic Spine/Ortho 9105-2520 / / Divergence Screws Implanted:Qty : 4 on 01/16/2022 by Brock Sawyer MD at [facility] Spine Medtronic Spine/Ortho [id number] / / Divergence 18mm Plate Implanted:Qty : 1 on 01/16/2022 by Brock Sawyer MD at [facility] Spine Medtronic Spine/Ortho [id number] / / Explanted Type Area Inspector Missile Device Identifier Shelf Expiration Date Model / Serial / Lot Electric Objects Precision Spinal Cord Stimulator Explanted:Qty: 1 on 12/01/2019 by Brock Sawyer MD at [facility] N/A: Lumbar Vertebrae [employer] / [id number] / Description:Battery and lead s explanted IPG model SC-1110 Bone Growth Stimulator Explanted:Qty: 1 on 12/01/2019 by Brock Sawyer MD at [facility] N/A: Lumbar Vertebrae Description:SpF-PLUS CLAUDIA [id number] Battery and leads explanted 100mm 5.5 Ti Beltran Explanted:Qty: 2 on 12/01/2019 by Brock Sawyer MD at [facility] N/A: Lumbar Vertebrae Set Screws Solera Explanted:Qty: 6 on 12/01/2019 by Brock Sawyer MD at [facility] N/A: Lumbar Vertebrae Medtronic Spine/Ortho Screw Sm Joint 4.5x20mm Axsos Raymundo Titne - [id number] Explanted:Qty: 4 on 12/01/2019 by Brock Sawyer MD at [facility] N/A: Lumbar Vertebrae Bri [employer] [id number]# / / 8.5 X 70 Mm Ballast Screw Explanted:Qty: 1 on 06/27/2020 by Brock Sawyer MD at [facility] Right: Lumbar Vertebrae Medtronic Procedures Procedure Name [...] Narrative 10/16/2023 2:12 PM CDT For Patients: As a result of the Cures Act, medical imaging exams and procedure reports are released immediately into your electronic medical record. You may view this report before your referring provider. If you have questions, please contact your health [...] Narrative 10/16/2023 1:57 PM CDT For Patients: As a result of the Cures Act, medical imaging exams and procedure reports are released immediately into your electronic medical record. You may view this report before your referring provider. If you have questions, please contact your health [...] 16 Negative Negative 11/27/2022 11:43 AM CDT [facility] TYPE 18 Negative Negative 11/27/2022 11:43 AM CDT [facility] OTHER HIGH RISK TYPES Positive(A) Negative 11/27/2022 11:43 AM CDT [facility] Other (Cervical) 11/21/2022 9:04 AM CDT 11/25/2022 11:50 AM CDT Narrative [facility] - 11/27/2022 11:43 AM CDT Specimen is positive for the DNA of any one of, or combination of, the following high risk HPV types: 31, 33, 35, 39, 45, 51, 52, 56, 58, 59, 66, 68. HPV types 16 and 18 DNA were undetectable or below the pre-set threshold. Methodology: Velia Amador 4800 HPV Test Maryuri Rabago PA-C [facility] [address] [place] [address], [place] * XR FFDM MAMMO SCREENING BILATERAL SSP (11/06/2009 10:54 AM CDT) Anatomical Region Laterality Modality BREASTS, Breast Left, Breast Right Bilateral Mammography Impressions 11/06/2009 12:24 PM CDT There is no radiographic evidence for malignancy. Recommend annual mammograms. A lay language report of this examination will be provided to the patient. MAMMOGRAM ASSESSMENT: ACR 2 Benign Narrative 11/06/2009 12:24 PM CDT XR FFDM MAMMO SCREENING BILATERAL SSP [G0202.6] CLINICAL HISTORY: This is an asymptomatic 48 y.o. patient. INDICATION FOR EXAM: Mammogram Screening. TECHNIQUE: CC & MLO views were obtained. This digital study was evaluated with the assistance of Computer-Aided Detection. COMPARISON FILMS: Yes 10/07/08 [facility] FINDINGS: Mammographically, the breast tissue is heterogeneously dense, which could obscure detection of small masses (approximately 51% - 75% glandular). No suspicious masses or microcalcifications. Benign appearing calcifications within both breasts. Procedure Note Hayes Anne, - 11/06/2009 XR FFDM MAMMO SCREENING BILATERAL SSP [G0202.6] CLINICAL HISTORY: This is an asymptomatic 48 y.o. patient. INDICATION FOR EXAM: Mammogram Screening. TECHNIQUE: CC & MLO views were obtained. This digital study was evaluatedwith the assistance of Computer-Aided Detection. COMPARISON FILMS: Yes 10/07/08 [facility] FINDINGS: Mammographically, the breast tissue is [...] Code Status Discussion: Not Discussed Care Teams Social Media Director Relationship Specialty Start Date End Date Hayes Mcelroy MD PCP - General Family Practice 01/10/17
--- OUTSIDE RECORDS SUMMARY | 2024-01-02 10:16 | XMS_ITS | Continuity of Care Document ---
Author Organization [facility] Address [address] [place] [address] Care Team Providers Care Sea Captain Name Role Phone Rodolfo Long CRNA Unavailable Unavaila ble Procedures Procedure Date ANESTH, NERVE BLOCK/INJ Percutaneous Image guided destruction pr ocedures B ANESTH, NERVE BLOCK/INJ Advance Directives Directive Yes / No Effective Date File Name No Information Encounters Encounter Description Practice Location Reason(s) For Visit Diagnoses Date Provider Providers Copied on Encounter [facility], [address] [place], [place], [id number], [facility] No Information Ethan Reynolds. [address], [place], [id number], . tel:[phone] Referring Provider: Divina Deras, [address] [place], [place] [address] [place], [address] . tel:[phone] [facility], [address] [place], [place], [id number], [facility] No Information Devang Lockwood. [address], [facility], [place], [place], [id number], . tel:[phone] Referring Provider: Divina Deras, [address] [facility] [place], [address] . tel:[phone] [facility], [address] [place], [place], [id number], [facility] No Information Cy Campos. [address] [facility], [facility] [place], [place], [place], [id number], . tel:[phone] Referring Provider: Divina Deras, [address] [facility] [place], [address] . tel:[phone] Family History Family Member Type Diagnosis Age [...]
--- OUTSIDE RECORDS SUMMARY | 2024-01-02 10:17 | XMS_ITS | Clinical Summary ---
Author Organization [facility] Address [address] [place] [address] Care Team Providers Care Reinforcing Steel Erector Name Role Phone Tommy Mcelroy MD Primary Care Provider [phone] Source Comments You are receiving this document as you are listed as the primary care provider,follow-up provider, or the patient has been referred to you for consultation.This is in compliance with the Medicare and[facility] Hospital[facility] EHR Incentive Program,which states Providers who transition their patient to another setting of careor provider of care or refers their patient to another provider of care shouldprovide summary care record for each transition of care or referral. [facility] Allergies Active Allergy Reactions Criticality [...] (05/13/2022): Added automatically from request for surgery [id number] Social History Tobacco Use Types Packs/Day Years [...] 92 06/16/2009 4:43 PM CDT Temperature 37.1 C (98.7 F) 06/16/2009 10:38 AM CDT Respiratory Rate 18 06/16/2009 4:43 PM CDT [...] age to complete this topic Care Teams Reinforcing Steel Erector Relationship Specialty Start Date End Date Tommy Mcelroy MD REPLACED BY [facility] [address] [place] [address] PCP - General Family Practice 05/07/22
--- OUTSIDE RECORDS SUMMARY | 2024-01-02 10:17 | XMS_ITS | Continuity of Care Document ---
Author Organization [facility] Address [address] [place] [address] Phone Care Team Providers Care Survey Questionnaire Designer Name Role Phone Ronald Herrera MD Unavailable [...] Date Provider Providers Copied on Encounter [facility], [address], [place], [place], [id number], [place] tel:[phone] [facility] No Information 4 Sharon Cardenas. [address], [place], [place], [id number], [place]. tel:[phone] Referring Provider: Tommy Mcelroy MD C, [address], [place], [address]. tel:[phone] [facility], [address], [place], [place], [id number], [place] tel:[phone] [facility] No Information 4 RN RN. [address], [address], [place], [place], [id number], [place]. tel:[phone] Referring Provider: Tommy Rand, [address], [place], [address]. tel:[phone] Est Pt Eval 15 Min [facility], [facility], [address], [place], [place], [id number], [place] tel:[phone] [facility] No Information 4 No Information Referring Provider: Tommy Rand, [address], [place], [address]. tel:[phone] Offic/outpt E&m Estab Mod-hi 4 [facility], [address], [place], [place], [id number], [place] tel:[phone] [facility] No Information 4 No Information Referring Provider: Tommy Rand, [address], [place], [address]. tel:[phone] Offic/outpt E&m Estab Low-mod [facility], [facility], [address], [place], [place], [id number], [place] tel:[phone] [facility] No Information 4 No Information Referring Provider: Tommy Rand, [address], [place], [address]. tel:[phone] Offic/outpt E&m Estab Low-mod [facility], [address], [place], [place], [id number], [place] tel:[phone] [facility] No Information 4 No Information Referring Provider: Tommy Rand, [address], [place], [address]. tel:[phone] [facility], [address], [place], [place], [id number], [place] tel:[phone] [facility] No Information 4 No Information Referring Provider: Tommy Rand, [address], [place], [address]. tel:[phone] [facility], [facility], [address], [place], [place], [id number], [place] tel:[phone] [place] [facility] 7[address] No Information 0 4 Tremayne Medinaagustin Ruiz. [address], [address], [place], [place], [id number], [place]. tel:[phone] Referring Provider: Tommy Rand, [address], [place], [address]. tel:[phone] Psychiatric Diagnostic Evaluation [facility], [facility], [address], [place], [place], [id number], [place] tel:[phone] [place] [facility] 7[address] No Information [address], [address], [place], [place], [id number], [place]. tel:[phone] Referring Provider: Tommy Rand, [address], [place], [address]. tel:[phone] Offic/outpt E&m Estab Low-mod [facility], [facility], [address], [place], [place], [id number], [place] tel:[phone] [facility] No Information 4 No Information Referring Provider: Tommy Rand, [address], [place], [address]. tel:[phone] Offic/outpt E&m Estab Mod-hi 2 [facility], [facility], [address], [place], [place], [id number], [place] tel:[phone] [facility] No Information 4 No Information Referring Provider: Tommy Rand, [address], [place], [address]. tel:[phone] [facility], [address], [place], [place], [id number], [place] tel:[phone] [facility] No Information 4 Sharon Cardenas. [address], [place], [place], [id number], [place]. tel:[phone] Referring Provider: Tommy Rand, [address], [place], [address]. tel:[phone] Offic Cons New/estab Mod-hi 60 [facility], [address], [place], [place], [id number], tel:[phone] [facility] No Information 4 No Information Referring Provider: Tommy Rand, [address], [place], [address]. tel:[phone] Family History Family Member Type Diagnosis Age At Onset N/A Problem (finding) No Significant Family H istory Payers Payer name Insurance type Covered libertarian ID Authoriza tiflaco(s) [facility] [place] [id number] Social History Type Description Quantity Date Captured Comments Sex Female Smoking Status No Information Chief Complaint And Reason For Visit No Information Reason For Referral Reason For Referral No Information Plan Of Treatment Date Type Action Status Future Order: Lab Order COMPLIAN CE DRUG ANALYSIS,URINE,WITH MED REPORT ([id number]), Appointment on: , Collected on: , Sent [...]
--- OUTSIDE RECORDS SUMMARY | 2024-01-02 10:17 | XMS_ITS | Continuity of Care Document ---
Author Organization [facility] tommie Address [address] [facility] [place] [address] Phone Care Team Providers Care Reclamation Engineer Name Role Phone Reyna Vee CNP Unavailable Unavailable Allergies, Adverse Reactions, Alerts Substance Reaction Status Criticality diphenhydramine Active No Informati on PROCHLORPERAZINE MALEATE Active No Information PROCHLORPERAZINE EDISYLATE Active N o Information Medications Medication Instructions Dosage Effective Dates (start - stop) Status Comments oxycodone 10 mg tablet take 1 tablet by ORAL route every 4 - 6 hours prn chronic pain, max 3/day, alternate with 15mg tablets, 30 day script - Active may fill today, to start 12/29 oxycodone 15 mg tablet take 1 tablet by oral route every 4-6 hours prn chronic pain, max 2/day, 30 day script - Active may fill today, to start 12/29 OxyContin 15 mg tablet,crush resistant,extend ed release take 1 tablet by ORAL route every 8 hours 15 MG - Active D/C 20mg, 30 day supply lidocaine 5 % topical patch apply 1 [...] route every day 200 MG - Active Lamictal 200 mg tablet [...] route every day 1 MG - Active OxyContin 20 mg tablet,crush resistant,extend ed release take 1 tablet by oral route every 8 hours for chronic pain, 30 day script - No Longer Active may fill today, to start 11/30/23 oxycodone 15 mg tablet take 1 tablet by oral route every 4-6 hours prn chronic pain, max 2/day, 30 day script - No Longer Active may fill today, to start 11/29 oxycodone 10 mg tablet take 1 tablet by ORAL route every 4 - 6 hours prn chronic pain, max 3/day, alternate with 15mg tablets, 30 day script - No Longer Active may fill today, to start 11/29 Procedures Procedure Date OFFICE VISIT, EST TELEMEDICINE Drug test def 15-21 classes Drug Urine Toxology With Chromatography OFFICE VISIT, EST TELEMEDICINE OFFICE/OUTPATIENT VISIT, EST Drug Urine Toxology With Chromatography Drug test def 15-21 classes OFFICE VISIT, EST TELEMEDICINE OFFICE/OUTPATIENT VISIT, EST Drug Urine Toxology With Chromatography OFFICE VISIT, EST TELEMEDICINE RF genicular nerve With Imaging OFFICE VISIT, EST TELEMEDICINE Inj anes agt/steroid; gen ne br,w/cynthia ce Bilat Facet Jt Inj Or MBB Lumbar [...] Provider Providers Copied on Encounter OFFICE VISIT, EST [facility], [address] [place], [place], [id number] , [place] tel:[phone] [facility] Back Pain (chief complaint) Chronic pain syndromeOther intervertebral disc degeneration, lumbar region, NOSPostlaminec gumaro syndrome, not elsewhere classifiedDrug induced constipationLo ng term (current) use of opiate analgesic 4 Mariusz Orellana. [address] [place] [address], [id number], [place]. tel:[phone] Consulting Provider: Lucas Talamantes, [facility] [address], [address], [place], [address]. tel:[phone] ring Provider: Emir Espinal, [address] [place] [address], [address]. tel:[phone] [facility], [address] [place] [address], [id number] , [place] tel:[phone] [facility] No Information 4 Jonah Craig. [address] [place] [address], [id number], [place]. tel:[phone] Referring Provider: Emir Espinal, [address] [place] [address], [id number]. tel:[phone] OFFICE VISIT, EST TELEMEDICINE [facility], [address] [place] [address], [id number] , [place] tel:[phone] [facility] Back Pain (chief complaint) Chronic pain syndromeOther intervertebral disc degeneration, lumbar region, NOSPostlaminec gumaro syndrome, not elsewhere classifiedPain in right kneePain in left kneeDrug induced constipationLo ng term (current) use of opiate analgesicBody mass index [BMI] 27.0-27.9, adult 4 Jonah Craig. [address] [place] [address], [id number], [place]. tel:[phone] Consulting Provider: Lucas Talamantes, [facility] [address], [address], [place], [address]. tel:[phone] OFFICE/OUTPAT IENT VISIT, EST [facility], [address] [place] [address], [id number] , [place] tel:[phone] [facility] [place] Back Pain (chief complaint) Chronic pain syndromeOther intervertebral disc degeneration, lumbar regionPostlami nectomy syndrome, not elsewhere classifiedPain in right kneePain in left kneeDrug induced constipationLo ng term (current) use of opiate analgesicEncou nter for therapeutic drug level monitoringBody mass index [BMI] 27.0-27.9, adult Oct- 4 Jonah Craig. [address] [place] [address], [id number], [place]. tel:[phone] Consulting Provider: Lucas Talamantes, [facility] [address], [address], [place], [address]. tel:[phone] ring Provider: Emir Espinal, [address] [place] [address], [address]. tel:[phone] [facility], [address] [place] [address], [id number] , tel:[phone] [facility] [place] Back Pain (chief complaint) Chronic pain syndromeOther intervertebral disc degeneration, lumbar regionPostlami nectomy syndrome, not elsewhere classifiedPain in right kneePain in left kneeDrug induced constipationLo ng term (current) use of opiate analgesic 4 Jonah Craig. [address] [place] [address], [id number], [place]. tel:[phone] Consulting Provider: Lucas Talamantes, [facility] [address], [address], [place], [address]. tel:[phone] OFFICE VISIT, EST TELEMEDICINE [facility], [address] [place] [address], [id number] , [place] tel:[phone] [facility] [place] Back pain (chief complaint) Chronic pain syndromeOther intervertebral disc degeneration, lumbar regionPostlami nectomy syndrome, not elsewhere classifiedPain in right kneePain in left kneeDrug induced constipationLo ng term (current) use of opiate analgesic 4 Jonah Craig. [address] [place] [address], [id number], [place]. tel:[phone] Consulting Provider: Lucas Talamantes, [facility] [address], [address], [place], [address]. tel:[phone] Provider: Emir Espinal, [address] [place] [address], [address]. tel:[phone] OFFICE/OUTPAT IENT VISIT, [facility], [address] [place] [address], [id number] , tel:[phone] [facility] Back Pain (chief complaint) Chronic pain syndromeOther intervertebral disc degeneration, lumbar regionPostlami nectomy syndrome, not elsewhere classifiedPain in right kneePain in left kneeDrug induced constipationLo ng term (current) use of opiate analgesicEncou nter for therapeutic drug level monitoringCerv icalgia 4 Jonah Craig. [address], [place], [id number], [place]. tel:[phone] Consulting Provider: Lucas Talamantes, [facility] [address], [address], [place], [address]. tel:[phone] Provider: Emir Espinal, [address] [place] [address], [address]. tel:[phone] OFFICE VISIT, [facility], [address] [place] [address], [id number] , [place] tel:[phone] [facility] Back pain (chief complaint) Postlaminectom y syndrome, not elsewhere classifiedOthe r intervertebral disc degeneration, lumbar regionPain in right kneePain in left kneeDrug induced constipationLo ng term (current) use of opiate analgesicChron ic pain syndrome 4 Jonah Overberoberto carlos Kiara. [address] [place] [address], [id number], [place]. tel:[phone] Consulting Provider: Lucas Talamantes, [facility] [address], [address], [place], [address]. tel:[phone] [facility], [address] [place] [address], [id number] , [place] tel:[phone] [facility] Pain in right kneePain in left knee June-0 4 Braeden Kirkri. [address] [place] [address], [id number], [place]. tel:[phone] Referring Provider: Kiara Álvarez, [address] [place] [address], [id number]. tel:[phone] OFFICE VISIT, EST TELEMEDICINE [facility], [address] [place] [address], [id number] , [place] tel:[phone] [facility] [place] Back Pain (chief complaint) Chronic pain syndromePostla minectomy syndrome, not elsewhere classifiedOthe r intervertebral disc degeneration, lumbar regionPain in right kneePain in left kneeDrug induced constipationLo ng term (current) use of opiate analgesic May-2 4 Jonah Craig. [address] [place] [address], [id number], [place]. tel:[phone] Consulting Provider: Lucas Talamantes, [facility] [address], [address], [place], [address]. tel:[phone] ring Provider: Emir Espinal, [address] [place] [address], [address]. tel:[phone] [facility], [address] [place] [address], [id number] , [place] [phone] [facility] [place] Pain in left kneePain in right knee May- 4 Jonah Craig. [address] [place] [address], [id number], [place]. tel:[phone] [facility], [address] [place] [address], [id number] , [place] [phone] [facility] Pain in right kneePain in left knee May- 4 Braeden Murcia. [address] [place] [address], [id number], [place]. tel:[phone] Referring Provider: Kiara Álvarez, [address] [place] [address], [address]. tel:[phone] [facility], [address] [place] [address], [id number] , [place] [phone] [facility] [place] Pain in left kneePain in right knee Apr-0 4 Mihir Field. [address] [place] [address], [id number], [place]. tel:[phone] [facility], [address] [place] [address], [id number] , [place] [phone] [facility] Low back painOther chronic painArthrodesi s status 4 Deraslacy Murcia. [address] [place] [address], [id number], [place]. tel:[phone] Referring Provider: Kaira Álvarez, [address] [place] [address], [id number]. tel:[phone] OFFICE/OUTPAT IENT VISIT, EST [facility], [address] [place] [address], [id number] , [place] tel:[phone] [facility] [place] Back Pain (chief complaint) Postlaminectom y syndrome, not elsewhere classifiedOthe r intervertebral disc degeneration, lumbar regionPain in right kneePain in left kneeDrug induced constipationLo ng term (current) use of opiate analgesicChron ic pain syndromeEncoun ter for therapeutic drug level monitoring 4 Emeka Cordova. [address] [place] [address], [id number], [place]. tel:[phone] Referring Provider: Emir Espinal, [address] [place] [address], [address]. tel:[phone] OFFICE VISIT, EST TELEMEDICINE [facility], [address] [place] [address], [id number] , [place] tel:[phone] [facility] [place] Back Pain (chief complaint) Postlaminectom y syndrome, not elsewhere classifiedOthe r intervertebral disc degeneration, lumbar regionPain in right kneePain in left kneeDrug induced constipationLo ng term (current) use of opiate analgesic 4 Jonah Craig. [address] [place] [address], [id number], [place]. tel:[phone] Consulting Provider: Lucas Talamantes, [facility] [address], [place] [address], [place], [address]. tel:[phone] OFFICE VISIT, EST TELEMEDICINE [facility], [address] [place] [address], [id number] , [place] tel:[phone] [facility] [place] Back Pain (chief complaint) Postlaminectom y syndrome, not elsewhere classifiedOthe r intervertebral disc degeneration, lumbar regionPain in right kneePain in left kneeDrug induced constipationLo ng term (current) use of opiate analgesic 4 Jonah Pastorberoberto carlos Craig. [address] [place] [address], [id number], [place]. tel:[phone] Consulting Provider: Lucas Talamantes, [facility] [address] [facility] [address], [place] [address], [place], [address]. tel:[phone] ring Provider: Emir Espinal, [address] [place] [address], [id number]. tel:[phone] [facility], [address] [place] [address], [id number] , [place] tel:[phone] [facility] No Information 3 Jonah Craig. [address] [place] [address], [id number], [place]. tel:[phone] Referring Provider: Emir Espinal, [address] [place] [address], [address]. tel:[phone] OFFICE/OUTPAT IENT VISIT, EST [facility], [address] [place] [address], [id number] , [place] tel:[phone] [facility] Back Pain (chief complaint) Postlaminectom y syndrome, not elsewhere classifiedOthe r intervertebral disc degeneration, lumbar regionPain in right kneePain in left kneeDrug induced constipationLo ng term (current) use of opiate analgesicEncou nter for therapeutic drug level monitoring 3 Jonah Pastorbeke Kiara. [address] [place] [address], [id number], [place]. tel:[phone] Consulting Provider: Lucas Talamantes [facility] [address], [address], [place], [address]. tel:[phone] [facility] Provider: Emir Espinal, [address] [place] [address], [address]. tel:[phone] OFFICE VISIT, EST TELEMEDICINE [facility], [address] [place] [address], [id number] , [place] tel:[phone] [facility] [place] Back Pain (chief complaint) Postlaminectom y syndrome, not elsewhere classifiedOthe r intervertebral disc degeneration, lumbar regionPain in right kneePain in left kneeDrug induced constipationLo ng term (current) use of opiate analgesic 3 Van Overbeke Kiara. [address] [place] [address], [id number], [place]. tel:[phone] Consulting Provider: Lucas Talamantes, [facility] [address], [address], [place], [address]. tel:[phone] OFFICE VISIT, EST TELEMEDICINE [facility], [address] [place] [address], [id number] , [place] tel:[phone] [facility] [place] Back Pain (chief complaint) Postlaminectom y syndrome, not elsewhere classifiedOthe r intervertebral disc degeneration, lumbar regionPain in right kneePain in left kneeDrug induced constipationLo ng term (current) use of opiate analgesic 3 Van Overbeke Kiara. [address] [place] [address], [id number], [place]. tel:[phone] Consulting Provider: Lucas Talamantes [facility] [address], [address], [place], [address]. tel:[phone] [facility] Provider: Emir Espinal, [address] [place] [address], [address]. tel:[phone] [facility], [address] [place] [address], [id number] , [place] tel:[phone] [facility] Pain in right kneePain in left knee 3 Braeden Murcia. [address] [place] [address], [id number], [place]. tel:[phone] Referring Provider: Emir Espinal, [address] [place] [address], [address]. tel:[phone] [facility], [address] [place] [address], [id number] , [place] tel:[phone] [facility] [place] lumbago/kn ees (chief complaint) Postlaminectom y syndrome, not elsewhere classifiedOthe r intervertebral disc degeneration, lumbar region 3 Melinda Zavala. [address] [place] [address], [id number], [place]. tel:[phone] Referring Provider: Emir Espinal, [address] [place] [address], [address]. tel:[phone] [facility], [address] [place] [address], [id number] , [place] tel:[phone] [facility] [place] No Information Sep- 3 Jonah Craig. [address] [place] [address], [id number], [place]. tel:[phone] OFFICE/OUTPAT IENT VISIT, EST [facility], [address] [place] [address], [id number] , [place] tel:[phone] [facility] Back Pain (chief complaint) Postlaminectom y syndrome, not elsewhere classifiedOthe r intervertebral disc degeneration, lumbar regionPain in right kneePain in left kneeDrug induced constipationLo ng term (current) use of opiate analgesicEncou nter for therapeutic drug level monitoring Sep-2 3 Jonah Craig. [address] [place] [address], [id number], [place]. tel:[phone] Consulting Provider: Lucas Talamantes, [facility] [address], [place] [address], [place], [address]. tel:[phone] ring Provider: Emir Espinal, [address] [place] [address], [address]. tel:[phone] OFFICE VISIT, EST TELEMEDICINE [facility], [address] [place] [address], [id number] , [place] tel:[phone] [facility] [place] Back Pain (chief complaint) Postlaminectom y syndrome, not elsewhere classifiedOthe r intervertebral disc degeneration, lumbar regionPain in right kneePain in left kneeDrug induced constipationLo ng term (current) use of opiate analgesic 3 Jonah Overberoberto carlos Kiara. [address] [place], [place], [id number], [place]. tel:[phone] Consulting Provider: Lucas Talamantes [facility] [address], [address] [facility], [place], [address]. tel:[phone] Provider: Emir Espinal, [address] [place] [address], [address]. tel:[phone] OFFICE VISIT, EST TELEMEDICINE [facility], [address] [place] [address], [id number] , [place] tel:[phone] [facility] [place] Back Pain (chief complaint) Postlaminectom y syndrome, not elsewhere classifiedOthe r intervertebral disc degeneration, lumbar regionSacroili itis, not elsewhere classifiedPain in right kneePain in left kneeOther muscle spasmChronic migraine without aura, intractable, without status migrainosusMaj or depressive disorder, single episode, unspecifiedDru g induced constipationLo ng term (current) use of opiate analgesic 3 Jonah Overbeke Kiara. [address] [place] [address], [id number], [place]. tel:[phone] Consulting Provider: Lucas Talamantes [facility] [address], [address], [place], [address]. tel:[phone] ring Provider: Emir Espinal, [address] [place] [address], [address]. tel:[phone] [facility], [address] [place] [address], [id number] , [place] tel:[phone] [facility] [place] No Information 3 Jonah Craig. [address] [place] [address], [id number], [place]. tel:[phone] Referring Provider: Emir Espinal, [address] [place] [address], [address]. tel:[phone] OFFICE/OUTPAT IENT VISIT, EST [facility], [address] [place] [address], [id number] , [place] tel:[phone] [facility] [place] Back Pain (chief complaint) Major depressive disorder, single episode, unspecifiedChr onic migraine without aura, intractable, without status migrainosusDru g induced constipationPa in in right kneePain in left kneeSacroiliit is, not elsewhere classifiedOthe r intervertebral disc degeneration, lumbar regionOther muscle spasmPostlamin ectomy syndrome, not elsewhere classifiedLong term (current) use of opiate analgesicEncou nter for therapeutic drug level monitoring 3 Jonah Craig. [address] [place] [address], [id number], [place]. tel:[phone] Consulting Provider: Lucas Talamantes, [facility] [address], [place] [address], [place], [address]. tel:[phone] ring Provider: Emir Espinal, [address] [place] [address], [address]. tel:[phone] [facility], [address] [place] [address], [id number] , [place] tel:[phone] [facility] Pain in right kneePain in left knee 3 Braeden Murcia. [address] [place] [address], [id number], [place]. tel:[phone] Referring Provider: Emir Espinal, [address] [place] [address], [address]. tel:[phone] OFFICE VISIT, EST TELEMEDICINE [facility], [address] [place] [address], [id number] , [place] tel:[phone] [facility] [place] Back pain (chief complaint) Major depressive disorder, single episode, unspecifiedChr onic migraine without aura, intractable, without status migrainosusSac roiliitis, not elsewhere classifiedOthe r intervertebral disc degeneration, lumbar regionOther muscle spasmPostlamin ectomy syndrome, not elsewhere classifiedLong term (current) use of opiate analgesicPain in right kneePain in left kneeDrug induced constipation Jonah Craig. [address] [place] [address], [id number], [place]. tel:[phone] Consulting Provider: [facility] [address], [address], [place], [address]. tel:[phone] ring Provider: Emir Espinal, [address] [place] [address], [address]. tel:[phone] OFFICE VISIT, EST TELEMEDICINE [facility], [address] [place] [address], [id number] , tel:[phone] [facility] [place] Back Pain (chief complaint) Major depressive disorder, single episode, unspecifiedChr onic migraine without aura, intractable, without status migrainosusSac roiliitis, not elsewhere classifiedOthe r intervertebral disc degeneration, lumbar regionOther muscle spasmPostlamin ectomy syndrome, not elsewhere classifiedLong term (current) use of opiate analgesic 3 Jonah Craig. [address] [place] [address], [id number], [place]. tel:[phone] Consulting Provider: [facility] [address], [address], [place], [address]. tel:[phone] OFFICE/OUTPAT IENT VISIT, EST [facility], [address] [place] [address], [id number] , [place] tel:[phone] [facility] [place] back pain (chief complaint) Major depressive disorder, single episode, unspecifiedChr onic migraine without aura, intractable, without status migrainosusSac roiliitis, not elsewhere classifiedOthe r intervertebral disc degeneration, lumbar regionOther muscle spasmPostlamin ectomy syndrome, not elsewhere classifiedLong term (current) use of opiate analgesicEncou nter for therapeutic drug level monitoring 3 Jonah Craig. [address] [place] [address], [id number], [place]. tel:[phone] Consulting Provider: Lucas Talamantes, [facility] [address], [address], [place], [address]. tel:[phone] ring Provider: Emir Espinal, [address] [place] [address], [address]. tel:[phone] [facility], [address] [place] [address], [id number] , [place] tel:[phone] [facility] [place] No Information 3 Jonah Craig. [address] [place] [address], [id number], [place]. tel:[phone] OFFICE VISIT, EST TELEMEDICINE [facility], [address] [place] [address], [id number] , [place] tel:[phone] [facility] [place] Back Pain (chief complaint) Major depressive disorder, single episode, unspecifiedChr onic migraine without aura, intractable, without status migrainosusSac roiliitis, not elsewhere classifiedOthe r intervertebral disc degeneration, lumbar regionPostlami nectomy syndrome, not elsewhere classifiedLong term (current) use of opiate analgesicOther muscle spasm 3 Jonah Craig. [address] [place] [address], [id number], [place]. tel:[phone] Consulting Provider: Lucas Talamantes, [facility] [address], [address], [place], [address]. tel:[phone] OFFICE VISIT, EST TELEMEDICINE [facility], [address] [place] [address], [id number] , [place] [phone] [facility] [place] Back Pain (chief complaint) Other intervertebral disc degeneration, lumbar regionSacroili itis, not elsewhere classifiedChro tommie migraine without aura, intractable, without status migrainosusMaj or depressive disorder, single episode, unspecifiedOth er muscle spasmPostlamin ectomy syndrome, not elsewhere classifiedLong term (current) use of opiate analgesic 3 Van Overbeke Kiara. [address] [place] [address], [id number], [place]. tel:[phone] Consulting Provider: Lucas Talamantes, [facility] [address], [address], [place], [address]. tel:[phone] OFFICE/OUTPAT IENT VISIT, EST [facility], [address] [place] [address], [id number] , [place] tel:[phone] [facility] Back pain (chief complaint) Major depressive disorder, single episode, unspecifiedChr onic migraine without aura, intractable, without status migrainosusSac roiliitis, not elsewhere classifiedOthe r intervertebral disc degeneration, lumbar regionOther muscle spasmPostlamin ectomy syndrome, not elsewhere classifiedLong term (current) use of opiate analgesicEncou nter for therapeutic drug level monitoring 2 Jonah Overbeke Kiara. [address] [place] [address], [id number], [place]. tel:[phone] Consulting Provider: Lucas Talamantes, [facility] [address], [facility] [address], [place], [address]. tel:[phone] ring Provider: Emir Espinal, [address] [place] [address], [id number]. tel:[phone] [facility], [address] [place] [address], [id number] , [place] [phone] [facility] [place] No Information 2 Jonah Pastorberoberto carlos Craig. [address] [place] [address], [id number], [place]. tel:[phone] Referring Provider: Emir Espinal, [address] [place] [address], [address]. tel:[phone] OFFICE VISIT, EST TELEMEDICINE [facility], [address] [place] [address], [id number] , [place] tel:[phone] [facility] [place] Back pain (chief complaint) Major depressive disorder, single episode, unspecifiedChr onic migraine without aura, intractable, without status migrainosusSac roiliitis, not elsewhere classifiedOthe r intervertebral disc degeneration, lumbar regionOther muscle spasmPostlamin ectomy syndrome, not elsewhere classifiedLong term (current) use of opiate analgesic Dec- 2 Van Overbeke Kiara. [address], [place], [id number], [place]. tel:[phone] Consulting Provider: Lucas Talamantes, [facility] [address], [address], [place], [address]. tel:[phone] ring Provider: Emir Espinal, [address] [place] [address], [address]. tel:[phone] OFFICE VISIT, [facility] TELEMEDICINE [facility], [address] [place] [address], [id number] , [phone] [facility] [place] Back pain (chief complaint) Major depressive disorder, single episode, unspecifiedChr onic migraine without aura, intractable, without status migrainosusSac roiliitis, not elsewhere classifiedOthe r intervertebral disc degeneration, lumbar regionPostlami nectomy syndrome, not elsewhere classifiedLong term (current) use of opiate analgesicOther muscle spasm 2 Van Overbeke Kiara. [address], [place], [id number], [place]. tel:[phone] Consulting Provider: Lucas Talamantes, [facility] [address], [address], [place], [address]. tel:[phone] OFFICE/OUTPAT IENT VISIT, [facility], [address] [place] [address], [id number] , [place] tel:[phone] [facility] [place] Back pain (chief complaint) Major depressive disorder, single episode, unspecifiedChr onic migraine without aura, intractable, without status migrainosusSac roiliitis, not elsewhere classifiedOthe r intervertebral disc degeneration, lumbar regionPostlami nectomy syndrome, not elsewhere classifiedLong term (current) use of opiate analgesicEncou nter for therapeutic drug level monitoring Sep-2 2 Van Overbeke Kiara. [address] [place] [address], [id number], [place]. tel:[phone] Consulting Provider: Lucas Talamantes, [facility] [address], [address], [place], [address]. tel:[phone] ring Provider: Emir Espinal, [address] [place] [address], [id number]. tel:[phone] [facility], [address] [place] [address], [id number] , [place] tel:[phone] [facility] No Information Sep-2 2 Van Overbeke Kiara. [address] [place] [address], [id number], [place]. tel:[phone] OFFICE VISIT, EST TELEMEDICINE [facility], [address] [place] [address], [id number] , [place] tel:[phone] [facility] Back Pain (chief complaint) Major depressive disorder, single episode, unspecifiedChr onic migraine without aura, intractable, without status migrainosusSac roiliitis, not elsewhere classifiedOthe r intervertebral disc degeneration, lumbar regionPostlami nectomy syndrome, not elsewhere classifiedLong term (current) use of opiate analgesic Sep-0 2 Juan R Beth. [address], [place], [place], [id number], [place]. tel:[phone] Consulting Provider: Lucas Talamantes, [facility] [address], [address], [place], [address]. tel:[phone] Provider: Emir Espinal, [address] [place] [address], [address]. tel:[phone] OFFICE VISIT, EST TELEMEDICINE [facility], [address] [place] [address], [id number] , [place] tel:[phone] [facility] Back pain (chief complaint) Chronic migraine without aura, intractable, without status migrainosusSac roiliitis, not elsewhere classifiedOthe r intervertebral disc degeneration, lumbar regionPostlami nectomy syndrome, not elsewhere classifiedLong term (current) use of opiate analgesicMajor depressive disorder, single episode, unspecified 2 Van Overbeke Kiara. [address], [place], [id number], [place]. tel:[phone] Consulting Provider: Lucas Talamantes, [facility] [address], [address], [place], [address]. tel:[phone] ring Provider: Emir Espinal, [address] [place] [address], [id number]. tel:[phone] OFFICE VISIT, EST TELEMEDICINE [facility], [address] [place] [address], [id number] , [place] tel:[phone] [facility] [place] back pain (chief complaint) Chronic migraine without aura, intractable, without status migrainosusSac roiliitis, not elsewhere classifiedOthe r intervertebral disc degeneration, lumbar regionPostlami nectomy syndrome, not elsewhere classifiedLong term (current) use of opiate analgesic 2 Van Overbeke Kiara. [address] [place] [address], [id number], [place]. tel:[phone] Consulting Provider: Lucas Talamantes, [facility] [address], [address], [place], [address]. tel:[phone] [facility], [address] [place] [address], [id number] , [place] tel:[phone] [facility] [place] No Information 2 Van Overbeke Kiara. [address] [place] [address], [id number], [place]. tel:[phone] Referring Provider: Emir Espinal, [address] [place] [address], [id number]. tel:[phone] OFFICE/OUTPAT IENT VISIT, EST [facility], [address] [place] [address], [id number] , [place] tel:[phone] [facility] [place] Back Pain (chief complaint) Chronic migraine without aura, intractable, without status migrainosusSac roiliitis, not elsewhere classifiedOthe r intervertebral disc degeneration, lumbar regionPostlami nectomy syndrome, not elsewhere classifiedLong term (current) use of opiate analgesicEncou nter for therapeutic drug level monitoring 2 Van Overbeke Kiara. [address] [place] [address], [id number], [place]. tel:[phone] Consulting Provider: Lucas Talamantes, [facility] [address], [address], [place], [address]. tel:[phone] ring Provider: Emir Espinal, [address] [place] [address], [address]. tel:[phone] OFFICE VISIT, EST TELEMEDICINE [facility], [address] [place] [address], [id number] , [place] [phone] [facility] [place] Back Pain (chief complaint) Chronic migraine without aura, intractable, without status migrainosusSac roiliitis, not elsewhere classifiedOthe r intervertebral disc degeneration, lumbar regionPostlami nectomy syndrome, not elsewhere classifiedLong term (current) use of opiate analgesic 2 Van Overbeke Kiara. [address] [place] [address], [id number], [place]. tel:[phone] Consulting Provider: Lucas Talamantes, [facility] [address], [address], [place], [address]. tel:[phone] OFFICE VISIT, EST TELEMEDICINE [facility], [address] [place] [address], [id number] , [place] tel:[phone] [facility] [place] Back Pain (chief complaint) Headache (chief complaint) Chronic migraine without aura, intractable, without status migrainosusSac roiliitis, not elsewhere classifiedOthe r intervertebral disc degeneration, lumbar regionPostlami nectomy syndrome, not elsewhere classifiedLong term (current) use of opiate analgesic 2 Van Overbeke Kiara. [address] [place] [address], [id number], [place]. tel:[phone] Consulting Provider: Lucas Talamantes [facility] [address], [address], [place], [address]. tel:[phone] [facility], [address] [place] [address], [id number] , [place] [phone] [facility] [place] Chronic migraine without aura, intractable, without status migrainosus Apr-0 2 Ney Quinones. [address] [place] [address], [id number], [place]. tel:[phone] Referring Provider: Emir Espinal, [address] [place] [address], [address]. tel:[phone] OFFICE VISIT, EST TELEMEDICINE [facility], [address] [place] [address], [id number] , [place] tel:[phone] [facility] [place] Back Pain (chief complaint) Chronic migraine without aura, intractable, without status migrainosusOth er intervertebral disc degeneration, lumbar regionLong term (current) use of opiate analgesicPostl aminectomy syndrome, not elsewhere classifiedSacr oiliitis, not elsewhere classified 2 Jonah Craig. [address] [place] [address], [id number], [place]. tel:[phone] Consulting [facility]: [facility] [address], [address], [place], [address]. tel:[phone] ring Provider: Emir Espinal, [address] [place] [address], [address]. tel:[phone] [facility], [address] [place] [address], [id number] , [place] [phone] [facility] [place] No Information 2 Jonah Craig. [address] [place] [address], [id number], [place]. tel:[phone] OFFICE/OUTPAT IENT VISIT, EST [facility], [address] [place] [address], [id number] , [place] tel:[phone] [facility] [place] Back Pain (chief complaint) Other intervertebral disc degeneration, lumbar regionLong term (current) use of opiate analgesicPostl aminectomy syndrome, not elsewhere classifiedSacr oiliitis, not elsewhere classifiedEnco unter for therapeutic drug level monitoringEnco unter for screening for other disorderChroni c migraine without aura, intractable, without status migrainosus 2 Jonah Craig. [address] [place] [address], [id number], [place]. tel:[phone] Consulting Provider: Lucas Talamantes, [facility] [address], [address], [place], [address]. tel:[phone] ring Provider: Emir Espinal, [address] [place] [address], [address]. tel:[phone] OFFICE VISIT, EST TELEMEDICINE [facility], [address] [place] [address], [id number] , tel:[phone] [facility] [place] Back Pain (chief complaint) Other intervertebral disc degeneration, lumbar regionLong term (current) use of opiate analgesicPostl aminectomy syndrome, not elsewhere classifiedSacr oiliitis, not elsewhere classified 2 Jonah Craig. [address] [place] [address], [id number], [place]. tel:[phone] Consulting Provider: Lucas Talamantes [facility] [address], [address] [facility], [place], [address]. tel:[phone] OFFICE VISIT, EST TELEMEDICINE [facility], [address] [place] [address], [id number] , [place] tel:[phone] [facility] [place] Back Pain (chief complaint) Other intervertebral disc degeneration, lumbar regionLong term (current) use of opiate analgesicPostl aminectomy syndrome, not elsewhere classifiedSacr oiliitis, not elsewhere classified 1 Jonah Craig. [address] [place] [address], [id number], [place]. tel:[phone] Consulting Provider: Lucas Talamantes [facility] [address], [address], [place], [address]. tel:[phone] OFFICE VISIT, [facility], [address] [place] [address], [id number] , [place] [phone] [facility] Back Pain (chief complaint) Other intervertebral disc degeneration, lumbar regionLong term (current) use of opiate analgesicPostl aminectomy syndrome, not elsewhere classifiedSacr oiliitis, not elsewhere classified 1 Jonah Craig. [address] [place] [address], [id number], [place]. tel:[phone] Consulting Provider: Lucas Talamantes, [facility] [address], [address], [place], [address]. tel:[phone] ring Provider: Emir Espinal, [address] [place] [address], [address]. tel:[phone] OFFICE VISIT, [facility], [address] [place] [address], [id number] , [place] [phone] [facility] Back Pain (chief complaint) Other intervertebral disc degeneration, lumbar regionLong term (current) use of opiate analgesicPostl aminectomy syndrome, not elsewhere classifiedSacr oiliitis, not elsewhere classified 1 Jonah Craig. [address] [place] [address], [id number], [place]. tel:[phone] Consulting Provider: [facility] [address], [address], [place], [address]. tel:[phone] OFFICE/OUTPAT IENT VISIT, [facility], [address] [place] [address], [id number] , [place] [phone] [facility]) Other intervertebral disc degeneration, lumbar regionLong term (current) use of opiate analgesicPostl aminectomy syndrome, not elsewhere classifiedSacr oiliitis, not elsewhere classifiedEnco unter for therapeutic drug level monitoring 1 Jonah Craig. [address] [place] [address], [id number], [place]. tel:[phone] Consulting Provider: Lucas Talamantes, [facility] [address] [facility] [address], [place], [address]. tel:[phone] ring Provider: Emir Espinal, [address] [place] [address], [address]. tel:[phone] [facility], [address] [place] [address], [id number] , [place] tel:[phone] [facility] Encounter for therapeutic drug level monitoringLong term (current) use of opiate analgesic Sep-2 1 Jonah Craig. [address] [place] [address], [id number], [place]. tel:[phone] Referring Provider: Emir Espinal, [address] [place] [address], [address]. tel:[phone] OFFICE VISIT, EST TELEMEDICINE [facility], [address] [place] [address], [id number] , [place] tel:[phone] [facility] Back Pain (chief complaint) manager terminal (current) use of opiate analgesicPostl aminectomy syndrome, not elsewhere classifiedOthe r intervertebral disc degeneration, lumbar region 1 Ney Quinones. [address] [place] [address], [id number], [place]. tel:[phone] Consulting Provider: Lucas Talamantes, [facility] [place] [address] [facility] [address] [facility] [address], [place], [address]. tel:[phone] ring Provider: Emir Espinal, [address] [place] [address], [address]. tel:[phone] OFFICE VISIT, EST TELEMEDICINE [facility], [address] [place] [address], [id number] , [place] tel:[phone] [facility] Back Pain (chief complaint) residential (current) use of opiate analgesicPostl aminectomy syndrome, not elsewhere classifiedSacr oiliitis, not elsewhere classifiedOthe r intervertebral disc degeneration, lumbosacral region 1 Jonah Craig. [address] [place] [address], [id number], [place]. tel:[phone] Consulting Provider: Lucas Talamantes, [facility] [place] [address] [address] [facility], [place], [address]. tel:[phone] Provider: Emir Espinal, [address] [place] [address], [address]. tel:[phone] [facility], [address] [place] [address], [id number] , [place] tel:[phone] [facility] Encounter for therapeutic drug level monitoringLong term (current) use of opiate analgesic 1 Jonah Craig. [address] [place] [address], [id number], [place]. tel:[phone] Referring Provider: Emir Espinal, [address] [place] [address], [address]. tel:[phone] OFFICE/OUTPAT IENT VISIT, EST [facility], [address] [place] [address], [id number] , [place] tel:[phone] [facility] Back Pain (chief complaint) manager terminal (current) use of opiate analgesicPostl aminectomy syndrome, not elsewhere classifiedSacr oiliitis, not elsewhere classifiedOthe r intervertebral disc degeneration, lumbosacral regionEncounte r for therapeutic drug level monitoring 1 Jonah Craig. [address] [place] [address], [id number], [place]. tel:[phone] Consulting Provider: Lucas Talamantes, [facility] [place] [address] [address] [place] [address], [place], [address]. tel:[phone] [facility] Provider: Emir Espinal, [address] [place] [address], [address]. tel:[phone] OFFICE VISIT, EST TELEMEDICINE [facility], [address] [place] [address], [id number] , [place] tel:[phone] [facility] [place] Back Pain (chief complaint) residential (current) use of opiate analgesicPostl aminectomy syndrome, not elsewhere classifiedSacr oiliitis, not elsewhere classifiedOthe r intervertebral disc degeneration, lumbosacral region May- 1 Jonah Craig. [address] [place] [address], [id number], [place]. tel:[phone] Consulting Provider: Lucas Talamantes, [address], [address]. tel:[phone] ring Provider: Emir Espinal, [address] [place] [address], [address]. tel:[phone] OFFICE VISIT, EST TELEMEDICINE [facility], [address] [place] [address], [id number] , tel:[phone] [facility] [place] Back Pain (chief complaint) Postlaminectom y syndrome, not elsewhere classifiedSacr oiliitis, not elsewhere classifiedOthe r intervertebral disc degeneration, lumbosacral regionLong term (current) use of opiate analgesic Apr-2 1 Jonah Craig. [address] [place] [address], [id number], [place]. tel:[phone] Consulting Provider: Lucas Talamantes[address] [place] [address], [place], [address]. tel:[phone] ring Provider: Emir Espinal, [address] [place] [address], [address]. tel:[phone] OFFICE VISIT, EST TELEMEDICINE [facility], [address] [place] [address], [id number] , [place] tel:[phone] [facility] [place] Back Pain (chief complaint) Postlaminectom y syndrome, not elsewhere classifiedSacr oiliitis, not elsewhere classifiedOthe r intervertebral disc degeneration, lumbosacral regionLong term (current) use of opiate analgesic Apr- 1 Jonah Craig. [address] [place] [address], [id number], [place]. tel:[phone] Consulting Provider: Lucas Talamantes, [address] [place] [address], [place], [address]. tel:[phone] ring Provider: Emir Espinal, [address] [place] [address], [address]. tel:[phone] OFFICE VISIT, EST TELEMEDICINE [facility], [address] [place] [address], [id number] , [place] tel:[phone] [facility] [place] Back Pain (chief complaint) Postlaminectom y syndrome, not elsewhere classifiedSacr oiliitis, not elsewhere classifiedOthe r intervertebral disc degeneration, lumbosacral regionLong term (current) use of opiate analgesic 1 Jonah Craig. [address] [place] [address], [id number], [place]. tel:[phone] Consulting Provider: Lucas Talamantes, [address] Prof Mercado [address] [address], [place], [address]. tel:[phone] ring Provider: Emir Espinal, [address] [place] [address], [id number]. tel:[phone] OFFICE VISIT, EST TELEMEDICINE [facility], [address] [place] [address], [id number] , [place] tel:[phone] [facility] Back Pain (chief complaint) manager terminal (current) use of opiate analgesicPostl aminectomy syndrome, not elsewhere classifiedSacr oiliitis, not elsewhere classifiedOthe r intervertebral disc degeneration, lumbosacral region 1 Jonah Craig. [address] [place] [address], [id number], [place]. tel:[phone] Consulting Provider: Lucas Talamantes, [address] Prof Merc[address] [address], [place], [address]. tel:[phone] ring Provider: Emir Espinal, [address] [place] [address], [address]. tel:[phone] OFFICE VISIT, EST TELEMEDICINE [facility], [address] [place] [address], [id number] , [place] [phone] [facility] Back Pain (chief complaint) residential (current) use of opiate analgesicPostl aminectomy syndrome, not elsewhere classifiedSacr oiliitis, not elsewhere classifiedOthe r intervertebral disc degeneration, lumbosacral region 0 Jonah Craig. [address] [place] [address], [id number], [place]. tel:[phone] Consulting Provider: Lucas Talamantes, [facility] [address] Prof [address] [address], [place], [address]. tel:[phone] ring Provider: Emir Espinal, [address] [place] [address], [address]. tel:[phone] OFFICE VISIT, EST TELEMEDICINE [facility], [address] [place] [address], [id number] , [place] tel:[phone] [facility] Back Pain (chief complaint) residential (current) use of opiate analgesicPostl aminectomy syndrome, not elsewhere classifiedSacr oiliitis, not elsewhere classifiedOthe r intervertebral disc degeneration, lumbosacral region 0 0 Jonah Craig. [address] [place] [address], [id number], [place]. tel:[phone] Referring Provider: Emir Espinal, [address] [place] [address], [address]. tel:[phone] OFFICE VISIT, EST TELEMEDICINE [facility], [address] [place] [address], [id number] , [place] tel:[phone] [facility] Back Pain (chief complaint) residential (current) use of opiate analgesicPostl aminectomy syndrome, not elsewhere classifiedSacr oiliitis, not elsewhere classifiedOthe r intervertebral disc degeneration, lumbosacral region 0 Van Overbeke Kiara. [address] [place] [address], [id number], [place]. tel:[phone] Referring Provider: Emir Espinal, [address] [place] [address], [address]. tel:[phone] OFFICE VISIT, EST TELEMEDICINE [facility], [address] [place] [address], [id number] , [place] tel:[phone] [facility] Back Pain (chief complaint) residential (current) use of opiate analgesicPostl aminectomy syndrome, not elsewhere classifiedSacr oiliitis, not elsewhere classifiedOthe r intervertebral disc degeneration, lumbosacral region 0 Jonah Pastorberoberto carlos Craig. [address] [place] [address], [id number], [place]. tel:[phone] Referring Provider: Emir Espinal, [address] [place] [address], [id number]. tel:[phone] OFFICE/OUTPAT IENT VISIT, [facility], [address] [place] [address], [id number] , [place] tel:[phone] [facility] [place] Back Pain (chief complaint) manager terminal (current) use of opiate analgesicPostl aminectomy syndrome, not elsewhere classifiedSacr oiliitis, not elsewhere classifiedOthe r intervertebral disc degeneration, lumbosacral region 0 Jonah Overberoberto carlos Kiara. [address] [place] [address], [id number], [place]. tel:[phone] Referring Provider: Emir Espinal, [address] [place] [address], [id number]. tel:[phone] OFFICE VISIT, EST TELEMEDICINE [facility], [address] [place] [address], [id number] , [place] tel:[phone] [facility] Back Pain (chief complaint) residential (current) use of opiate analgesicPostl aminectomy syndrome, not elsewhere classifiedSacr oiliitis, not elsewhere classifiedOthe r intervertebral disc degeneration, lumbosacral region 2 0 Van Overbeke Kiara. [address] [place] [address], [id number], [place]. tel:[phone] Consulting Provider: Lucas AU, [facility] [address] Carm[address] Merc[address] [address], [place], [address]. tel:[phone] Provider: Emir Espinal, [address] [place] [address], [address]. tel:[phone] OFFICE VISIT, EST TELEMEDICINE [facility], [address] [place] [address], [id number] , [place] tel:[phone] [facility] Back Pain (chief complaint) manager terminal (current) use of opiate analgesicPostl aminectomy syndrome, not elsewhere classifiedSacr oiliitis, not elsewhere classifiedOthe r intervertebral disc degeneration, lumbosacral region 0 Van Overbeke Kiara. [address] [place] [address], [id number], [place]. tel:[phone] Referring Provider: Emir Espinal, [address] [place] [address], [address]. tel:[phone] OFFICE VISIT, EST TELEMEDICINE [facility], [address] [place] [address], [id number] , [place] tel:[phone] [facility] Back Pain (chief complaint) residential (current) use of opiate analgesicPostl aminectomy syndrome, not elsewhere classifiedSacr oiliitis, not elsewhere classifiedOthe r intervertebral disc degeneration, lumbosacral region 0-202 0 Van Overbeke Kiara. [address] [place] [address], [id number], [place]. tel:[phone] Consulting Provider: Lucas AU, [facility] [address] Carmel Mercado [address] [facility] [address], [place], [address]. tel:[phone] ring Provider: Emir Espinal, [address] [place] [address], [address]. tel:[phone] OFFICE VISIT, [facility] TELEMEDICINE [facility], [address] [place] [address], [id number] , [place] tel:[phone] [facility] Back Pain (chief complaint) residential (current) use of opiate analgesicPostl aminectomy syndrome, not elsewhere classifiedSacr oiliitis, not elsewhere classifiedOthe r intervertebral disc degeneration, lumbosacral region Apr-2 2-202 0 Van Overbeke Kiara. [address] [place] [address], [id number], [place]. tel:[phone] Consulting Provider: Lucas AU, [address] Merc[address], [address]. tel:[phone] ring Provider: Emir Espinal, [address] [place] [address], [address]. tel:[phone] OFFICE VISIT, [facility], [address] [place] [address], [id number] , [place] tel:[phone] [facility] Back Pain (chief complaint) residential (current) use of opiate analgesicPostl aminectomy syndrome, not elsewhere classifiedSacr oiliitis, not elsewhere classifiedOthe r intervertebral disc degeneration, lumbosacral region Mar-2 6-202 0 Jonah Craig. [address] [place] [address], [id number], [place]. tel:[phone] Consulting Provider: Lucas AU, [address] [address], [place], [address]. tel:[phone] ring Provider: Emir Espinal, [address] [place] [address], [address]. tel:[phone] OFFICE/OUTPAT IENT VISIT, [facility], [address] [place] [address], [id number] , [place] tel:[phone] [facility] Back Pain (chief complaint) residential (current) use of opiate analgesicEncou nter for therapeutic drug level monitoringPost laminectomy syndrome, not elsewhere classifiedSacr oiliitis, not elsewhere classifiedOthe r intervertebral disc degeneration, lumbosacral region 0 Jonah Craig. [address] [place] [address], [id number], [place]. tel:[phone] Consulting Provider: Lucas AU, [address] [address], [place], [place], [facility]. tel:[phone] ring Provider: Emir Espinal, [address] [place] [address], [id number]. tel:[phone] OFFICE/OUTPAT IENT VISIT, [facility], [address] [place] [address], [id number] , tel:[phone] [facility] Back Pain (chief complaint) manager terminal (current) use of opiate analgesicPostl aminectomy syndrome, not elsewhere classifiedSacr oiliitis, not elsewhere classifiedOthe r intervertebral disc degeneration, lumbosacral region 0 Jonah Craig. [address] [place] [address], [id number], [place]. tel:[phone] Consulting Provider: Lucas AU, [address], [facility]. tel:[phone] ring Provider: Emir Espinal, [address] [place] [address], [address]. tel:[phone] OFFICE/OUTPAT IENT VISIT, EST [facility], [address] [place] [address], [id number] , [place] tel:[phone] [facility] Back Pain (chief complaint) residential (current) use of opiate analgesicSacro iliitis, not elsewhere classifiedOthe r intervertebral disc degeneration, lumbosacral regionPostlami nectomy syndrome, not elsewhere classified Jan- 0-201 9 Jonah Craig. [address] [place] [address], [id number], [place]. tel:[phone] Consulting Provider: Lucas AU, [address], [place], [address]. tel:[phone] ring Provider: Emir Espinal, [address] [place] [address], [address]. tel:[phone] OFFICE/OUTPAT IENT VISIT, [facility], [address] [place] [address], [id number] , [place] tel:[phone] [facility] Back Pain (chief complaint) manager terminal (current) use of opiate analgesicLow back painSacroiliit is, not elsewhere classifiedPost laminectomy syndrome, not elsewhere classifiedOthe r intervertebral disc degeneration, lumbosacral region Oct- 9 Van Overbeke Kiara. [address] [place] [address], [id number], [place]. tel:[phone] Consulting Provider: Lucas AU, [address] [address], [place], [address]. tel:[phone] ring Provider: Emir Espinal, [address] [place] [address], [address]. tel:[phone] OFFICE/OUTPAT IENT VISIT, [facility], [address] [place] [address], [id number] , [place] tel:[phone] [facility] [place] Back Pain (chief complaint) residential (current) use of opiate analgesicLow back painSacroiliit is, not elsewhere classifiedOthe r intervertebral disc degeneration, lumbosacral regionPostlami nectomy syndrome, not elsewhere classified Sep- 9 Van Overbeke Kiara. [address] [place] [address], [id number], [place]. tel:[phone] Consulting Provider: Lucas AU, [address] [address], [place], [address]. tel:[phone] ring Provider: Emir Espinal, [address] [place] [address], [address]. tel:[phone] OFFICE/OUTPAT IENT VISIT, [facility], [address] [place] [address], [id number] , [place] [phone] [facility] Back Pain (chief complaint) Postlaminectom y syndrome, not elsewhere classifiedOthe r intervertebral disc degeneration, lumbosacral regionSacroili itis, not elsewhere classifiedLow back painLong term (current) use of opiate analgesicEncou nter for therapeutic drug level monitoring Jonah Pastorberoberto carlos Craig. [address] [place] [address], [id number], [place]. tel:[phone] Consulting Provider: Lucas AU, [address], [facility]. tel:[phone] ring Provider: Emir Espinal, [address] [place] [address], [address]. tel:[phone] OFFICE/OUTPAT IENT VISIT, [facility], [address] [place] [address], [id number] , [place] [phone] [facility] Back Pain (chief complaint) Postlaminectom y syndrome, not elsewhere classifiedOthe r intervertebral disc degeneration, lumbosacral regionSacroili itis, not elsewhere classifiedLow back painLong term (current) use of opiate analgesic Jonah Pastorberoberto carlos Craig. [address] [place] [address], [id number], [place]. tel:[phone] Consulting Provider: Lucas AU, [address], [facility]. tel:[phone] ring Provider: Emir Espinal, [address] [place] [address], [address]. tel:[phone] OFFICE/OUTPAT IENT VISIT, EST [facility], [address] [place] [address], [id number] , [place] tel:[phone] [facility] Back Pain (chief complaint) Postlaminectom y syndrome, not elsewhere classifiedOthe r intervertebral disc degeneration, lumbosacral regionSacroili itis, not elsewhere classifiedLow back painLong term (current) use of opiate analgesic Luisito-0 2-201 9 Van Overbeke Kiara. [address] [place] [address], [id number], [place]. tel:[phone] Consulting Provider: Lucas AU, [address] [address], [place], [address]. tel:[phone] Provider: Emir Espinal, [address] [place] [address], [address]. tel:[phone] OFFICE/OUTPAT IENT VISIT, [facility], [address] [place] [address], [id number] , [place] tel:[phone] [facility] Back Pain (chief complaint) Postlaminectom y syndrome, not elsewhere classifiedOthe r intervertebral disc degeneration, lumbosacral regionSacroili itis, not elsewhere classifiedLow back painLong term (current) use of opiate analgesic May-0 1-201 9 Van Overbeke Kiara. [address] [place] [address], [id number], [place]. tel:[phone] Consulting Provider: Lucas AU, [address] [address], [place], [address]. tel:[phone] ring Provider: Emir Espinal, [address] [place] [address], [address]. tel:[phone] OFFICE/OUTPAT IENT VISIT, [facility], [address] [place] [address], [id number] , [place] tel:[phone] [facility] Back Pain (chief complaint) Postlaminectom y syndrome, not elsewhere classifiedOthe r intervertebral disc degeneration, lumbosacral regionSacroili itis, not elsewhere classifiedLow back painLong term (current) use of opiate analgesicEncou nter for therapeutic drug level monitoring Jonah Craig. [address] [place] [address], [id number], [place]. tel:[phone] Consulting Provider: Lucas AU, [address] [address], [place], [address]. tel:[phone] ring Provider: Emir Espinal, [address] [place] [address], [address]. tel:[phone] OFFICE/OUTPAT IENT VISIT, [facility], [address] [place] [address], [id number] , [place] tel:[phone] [facility] [place] Back Pain (chief complaint) Postlaminectom y syndrome, not elsewhere classifiedOthe r intervertebral disc degeneration, lumbosacral regionSacroili itis, not elsewhere classifiedLow back painLong term (current) use of opiate analgesic Jonah Craig. [address] [place] [address], [id number], [place]. tel:[phone] Consulting Provider: Lucas AU, [address] [address], [place], [address]. tel:[phone] ring Provider: Emir Espinal, [address] [place] [address], [id number]. tel:[phone] OFFICE/OUTPAT IENT VISIT, [facility], [address] [place] [address], [id number] , [place] tel:[phone] [facility] [place] Back Pain (chief complaint) Sacroiliitis, not elsewhere classifiedPost laminectomy syndrome, not elsewhere classifiedOthe r intervertebral disc degeneration, lumbosacral regionLow back painLong term (current) use of opiate analgesic Dec-0 8 Jonah Craig. [address] [place] [address], [id number], [place]. tel:[phone] Consulting Provider: Lucas AU, [address] [address], [place], [address]. tel:[phone] ring Provider: Emir Espinal, [address] [place] [address], [address]. tel:[phone] OFFICE/OUTPAT IENT VISIT, [facility], [address] [place] [address], [id number] , [place] [phone] [facility] Back Pain (chief complaint) Sacroiliitis, not elsewhere classifiedPost laminectomy syndrome, not elsewhere classifiedOthe r intervertebral disc degeneration, lumbosacral regionLow back pain 8 Jonah Craig. [address] [place] [address], [id number], [place]. tel:[phone] Consulting Provider: uLcas AU, [address] [address], [place], [address]. tel:[phone] ring Provider: Emir Espinal, [address] [place] [address], [address]. tel:[phone] OFFICE/OUTPAT IENT VISIT, [facility], [address] [place] [address], [id number] , [place] tel:[phone] [facility] Back Pain (chief complaint) Sacroiliitis, not elsewhere classifiedPost laminectomy syndrome, not elsewhere classifiedOthe r intervertebral disc degeneration, lumbosacral regionLow back pain Oct- 8 Jonah Craig. [address] [place] [address], [id number], [place]. tel:[phone] Consulting Provider: Lucas AU, [address] Jess [place] [address] [address], [place], [address]. tel:[phone] ring Provider: Emir Espinal, [address] [place] [address], [address]. tel:[phone] OFFICE/OUTPAT IENT VISIT, [facility], [address] [place] [address], [id number] , [place] tel:[phone] [facility] Back Pain (chief complaint) Sacroiliitis, not elsewhere classifiedPost laminectomy syndrome, not elsewhere classifiedOthe r intervertebral disc degeneration, lumbosacral regionLow back pain Sep-0 8 Jonah Craig. [address] [place] [address], [id number], [place]. tel:[phone] Consulting Provider: Lucas AU, [address] [address], [place], [address]. tel:[phone] Provider: Emir Espinal, [address] [place] [address], [address]. tel:[phone] OFFICE/OUTPAT IENT VISIT, [facility], [address] [place] [address], [id number] , [place] tel:[phone] [facility] [place] [facility] Pain (chief complaint) Sacroiliitis, not elsewhere classifiedPost laminectomy syndrome, not elsewhere classifiedLow back painOther intervertebral disc degeneration, lumbosacral region Clifford-0 8 Jonah Craig. [address] [place] [address], [id number], [place]. tel:[phone] Consulting Provider: Lucas AU, [facility] [address] [address], [place], [address]. tel:[phone] ring Provider: Emir Espinal, [address] [place] [address], [address]. tel:[phone] OFFICE/OUTPAT IENT VISIT, [facility], [address] [place] [address], [id number] , [place] [phone] [facility] Back Pain (chief complaint) Sacroiliitis, not elsewhere classifiedPost laminectomy syndrome, not elsewhere classifiedLow back painOther intervertebral disc degeneration, lumbosacral region 8 Jonah Craig. [address] [place] [address], [id number], [place]. tel:[phone] Consulting Provider: Lucas AU, [facility] [address], [place], [address]. tel:[phone] ring Provider: Emir Espinal, [address] [place] [address], [address]. tel:[phone] OFFICE/OUTPAT IENT VISIT, [facility], [address] [place] [address], [id number] , [place] [phone] [facility] Back Pain (chief complaint) Postlaminectom y syndrome, not elsewhere classifiedLow back painSacroiliit is, not elsewhere classified Fe Jonah Craig. [address] [place] [address], [id number], [place]. tel:[phone] Consulting Provider: Lucas AU, [address] [facility], [place], [address]. tel:[phone] ring Provider: Emir Espinal, [address] [place] [address], [address]. tel:[phone] OFFICE/OUTPAT IENT VISIT, EST [facility], [address] [place] [address], [id number] , [place] tel:[phone] [facility] Back Pain (chief complaint) Postlaminectom y syndrome, not elsewhere classifiedSacr oiliitis, not elsewhere classifiedOthe r intervertebral disc degeneration, lumbosacral region 8 Jonah Craig. [address] [place] [address], [id number], [place]. tel:[phone] Referring Provider: Emir Espinal, [address] [place] [address], [address]. tel:[phone] OFFICE/OUTPAT IENT VISIT, [facility], [address] [place] [address], [id number] , [place] [phone] [facility] Back Pain (chief complaint) Postlaminectom y syndrome, not elsewhere classifiedSacr oiliitis, not elsewhere classifiedOthe r intervertebral disc degeneration, lumbosacral region 8 7 Jonah Craig. [address] [place] [address], [id number], [place]. tel:[phone] Referring Provider: Emir Espinal, [address] [place] [address], [address]. tel:[phone] OFFICE/OUTPAT IENT VISIT, [facility], [address] [place] [address], [id number] , [place] tel:[phone] [facility] Back Pain (chief complaint) Postlaminectom y syndrome, not elsewhere classifiedSacr oiliitis, not elsewhere classifiedOthe r intervertebral disc degeneration, lumbosacral region 7 Jonah Craig. [address] [place] [address], [id number], [place]. tel:[phone] Consulting Provider: Lucas Talamantes [facility], [facility] [place] [address] [facility] [address] [address], [place], [address]. tel:[phone] ring Provider: Emir Espinal, [address] [place] [address], [address]. tel:[phone] OFFICE/OUTPAT IENT VISIT, [facility], [address] [place] [address], [id number] , [place] tel:[phone] [facility] [place] Back Pain (chief complaint) Postlaminectom y syndrome, not elsewhere classifiedOthe r intervertebral disc degeneration, lumbosacral regionSacroili itis, not elsewhere classifiedLong term (current) use of opiate analgesic Jonah Craig. [address] [place] [address], [id number], [place]. tel:[phone] Referring Provider: Emir Espinal, [address] [place] [address], [address]. tel:[phone] OFFICE/OUTPAT IENT VISIT, [facility], [address] [place] [address], [id number] , [place] [phone] [facility] [place] Back Pain (chief complaint) Postlaminectom y syndrome, not elsewhere classifiedOthe r intervertebral disc degeneration, lumbosacral regionSacroili itis, not elsewhere classified 7 Ney Quinones. [address] [place] [address], [id number], [place]. tel:[phone] Consulting Provider: Lucas Talamantes [facility], [facility] [place] [address] [place] [address] Prof [facility] [address] [address], [place], [address]. tel:[phone] ring Provider: Emir Espinal, [address] [place] [address], [address]. tel:[phone] OFFICE/OUTPAT IENT VISIT, [facility], [address] [place] [address], [id number] , [place] tel:[phone] [facility] [place] Back Pain (chief complaint) Postlaminectom y syndrome, not elsewhere classifiedOthe r intervertebral disc degeneration, lumbosacral region Jonah Craig. [address] [place] [address], [id number], [place]. tel:[phone] Referring Provider: Emir Espinal, [address] [place] [address], [address]. tel:[phone] OFFICE/OUTPAT IENT VISIT, [facility], [address] [place] [address], [id number] , [place] [phone] [facility] [place] Back Pain (chief complaint) Postlaminectom y syndrome, not elsewhere classifiedOthe r intervertebral disc degeneration, lumbosacral region Ney Stacie. [address] [place] [address], [id number], [place]. tel:[phone] Consulting Provider: Lucas AU, [address] [address], [place], [address]. tel:[phone] ring Provider: Emir Espinal, [address] [place] [address], [address]. tel:[phone] OFFICE/OUTPAT IENT VISIT, EST [facility], [address] [place] [address], [id number] , [place] [phone] [facility] [place] low back pain (chief complaint) Postlaminectom y syndrome, not elsewhere classifiedLow back pain Neydarrel Quinones. [address] [place] [address], [id number], [place]. tel:[phone] Consulting Provider: Lucas AU, [address] Prof [place] [address] [address], [place], [address]. tel:[phone] ring Provider: Emir Espinal, [address] [place] [address], [address]. tel:[phone] OFFICE/OUTPAT IENT VISIT, EST [facility], [address] [place] [address], [id number] , [place] [phone] [facility] low back pain (chief complaint) Low back painPostlamine ctomy syndrome, not elsewhere classified Ney Stacie. [address] [place] [address], [id number], [place]. tel:[phone] Referring Provider: Emir Espinal, [address] [place] [address], [address]. tel:[phone] OFFICE/OUTPAT IENT VISIT, EST [facility], [address] [place], [place], [id number] , [place] tel:[phone] [facility] [place] low back pain (chief complaint) Low back painPostlamine ctomy syndrome, not elsewhere classified Ney Quinones. [address] [place], [place], [id number], [place]. tel:[phone] Consulting Provider: Lucas AU, [facility] [address]lon [facility], [place], [address]. tel:[phone] ring Provider: Emir Espinal, [address] [place] [address], [address]. tel:[phone] OFFICE/OUTPAT IENT VISIT, [facility], [address] [place] [address], [id number] , [place] tel:[phone] [facility] [place] Back Pain (chief complaint) Postlaminectom y syndrome, not elsewhere classified 7 Ney Quinones. [address] [place], [place], [id number], [place]. tel:[phone] Consulting Provider: Lucas AU, [address] [address], [place], [address]. tel:[phone] ring Provider: Emir Espinal, [address] [place] [address], [address]. tel:[phone] OFFICE/OUTPAT IENT VISIT, [facility], [address] [place] [address], [id number] , [place] [phone] [facility] [place] Back Pain (chief complaint) Postlaminectom y syndrome, not elsewhere classifiedLong term (current) use of opiate analgesic 7 Ever Medina. [address] [place], [place], [id number], [place]. tel:[phone] Consulting Provider: Lucas AU, [facility] [address], [place], [address]. tel:[phone] ring Provider: Emir Espinal, [address] [place] [address], [address]. [phone] OFFICE/OUTPAT IENT VISIT, [facility], [address] [place] [address], [id number] , [place] [phone] [facility] low back pain (chief complaint) Low back painPostlamine ctomy syndrome, not elsewhere classified Ney Stacie. [address] [place] [address], [id number], [place]. tel:[phone] Consulting Provider: Lucas AU, [address] [address], [place], [address]. [phone] ring Provider: Emir Espinal, [address] [place] [address], [address]. tel:[phone] OFFICE/OUTPAT IENT VISIT, [facility], [address] [place] [address], [id number] , [place] tel:[phone] [facility] low back pain (chief complaint) Low back painPostlamine ctomy syndrome, not elsewhere classified 6 Ney Stacie. [address] [place] [address], [id number], [place]. tel:[phone] Consulting Provider: Lucas AU, [address] [facility] [address], [place], [address]. tel:[phone] ring Provider: Emir Espinal, [address] [place] [address], [address]. tel:[phone] OFFICE/OUTPAT IENT VISIT, [facility], [address] [place] [address], [id number] , [place] tel:[phone] [facility] low back pain (chief complaint) Low back painPostlamine ctomy syndrome, not elsewhere classified 6 Ney Stacie. [address] [place], [place], [id number], [place]. tel:[phone] Consulting Provider: Lucas AU, [address] [address], [place], [address]. [phone] ring Provider: Emir Espinal, [address] [place] [address], [address]. tel:[phone] OFFICE/OUTPAT IENT VISIT, [facility], [address] [place] [address], [id number] , [place] [phone] [facility] low back pain (chief complaint) Other cervical disc degeneration, high cervical regionLow back painPostlamine ctomy syndrome, not elsewhere classified 6 Ney Stacie. [address] [place], [place], [id number], [place]. tel:[phone] Consulting Provider: Lucas AU, [address] [address], [place], [address]. [phone] ring Provider: Emir Espinal, [address] [place] [address], [address]. tel:[phone] OFFICE/OUTPAT IENT VISIT, [facility], [address] [place] [address], [id number] , [place] tel:[phone] [facility] Neck pain (chief complaint) low back pain (chief complaint) Other cervical disc degeneration, high cervical regionLow back painPostlamine ctomy syndrome, not elsewhere classified 0 6 Ney Stacie. [address] [place], [place], [id number], [place]. tel:[phone] Consulting Provider: Lucas AU, [facility] [address] [facility] [address], [place], [address]. tel:[phone] ring Provider: Emir Espinal, [address] [place] [address], [address]. tel:[phone] OFFICE/OUTPAT IENT VISIT, [facility], [address] [place] [address], [id number] , [place] tel:[phone] [facility] [place] low back pain (chief complaint) Postlaminectom y syndrome, not elsewhere classifiedLow back painLong term (current) use of opiate analgesic Yasir Campos. [address] [place] [address], [id number], [place]. tel:[phone] Consulting Provider: Lucas AU, [facility] [address] Prof [address] [address], [place], [address]. tel:[phone] ring Provider: Emir Espinal, [address] [place] [address], [address]. tel:[phone] OFFICE/OUTPAT IENT VISIT, EST [facility], [address] [place] [address], [id number] , [place] tel:[phone] [facility] [place] low back pain (chief complaint) Postlaminectom y syndrome, not elsewhere classifiedLow back pain Yasir Campos. [address] [place] [address], [id number], [place]. tel:[phone] Referring Provider: Emir Espinal, [address] [place] [address], [address]. tel:[phone] OFFICE/OUTPAT IENT VISIT, EST [facility], [address] [place] [address], [id number] , [place] tel:[phone] [facility] [place] low back pain (chief complaint) Postlaminectom y syndrome, not elsewhere classifiedLow back pain 6 Yasir Campos. [address] [place], [place], [id number], [place]. tel:[phone] Consulting Provider: Lucas AU, [facility] [address]lon [facility], [place], [address]. tel:[phone] ring Provider: Emir Espinal, [address] [place] [address], [address]. tel:[phone] OFFICE/OUTPAT IENT VISIT, [facility], [address] [place] [address], [id number] , [place] tel:[phone] [facility] low back pain (chief complaint) Low back painPostlamine ctomy syndrome, not elsewhere classified 6 Ney Stacie. [address] [place], [place], [id number], [place]. tel:[phone] Consulting Provider: Lucas AU, [address] [address], [place], [address]. tel:[phone] ring Provider: Emir Espinal, [address] [place] [address], [address]. tel:[phone] OFFICE/OUTPAT IENT VISIT, [facility], [address] [place] [address], [id number] , [place] tel:[phone] [facility] low back pain (chief complaint) Low back painPostlamine ctomy syndrome, not elsewhere classified 6 Eny Stacie. [address], [place], [id number], [place]. tel:[phone] Consulting Provider: Lucas AU, [address] [place] [facility], [place], [address]. tel:[phone] [facility] Provider: Emir Espinal, [address] [place] [address], [address]. tel:[phone] OFFICE/OUTPAT IENT VISIT, [facility], [address] [place] [address], [id number] , [place] [phone] [facility] [place] low back pain (chief complaint) Postlaminectom y syndrome, not elsewhere classifiedLow back pain 6 Yasir Campos. [address] [place], [place], [id number], [place]. tel:[phone] Consulting Provider: Lucas AU, [facility] [address], [place], [address]. tel:[phone] ring Provider: Emir Espinal, [address] [place] [address], [address]. tel:[phone] OFFICE/OUTPAT IENT VISIT, [facility], [address] [place] [address], [id number] , [place] [phone] [facility] (chief complaint) Low back painPostlamine ctomy syndrome, not elsewhere classified 6 Ney Stacie. [address], [place], [id number], [place]. tel:[phone] Consulting Provider: Lucas AU, [address] [place] [facility], [place], [address]. tel:[phone] ring Provider: Emir Espinal, [address] [place] [address], [address]. tel:[phone] OFFICE/OUTPAT IENT VISIT, [facility], [address] [place] [address], [id number] , [place] [phone] [facility] [place] low back pain (chief complaint) Low back pain Fe 6 Ney Stacie. [address], [place], [id number], [place]. tel:[phone] Consulting Provider: Lucas AU, [address], [place], [address]. [phone] ring Provider: Emir Espinal, [address] [place] [address], [address]. [phone] OFFICE/OUTPAT IENT VISIT, [facility], [address] [place] [address], [id number] , [place] tel:[phone] [facility] low back pain (chief complaint) Low back painPostlamine ctomy syndrome, not elsewhere classified 6 Ney Stacie. [address] [place] [address], [id number], [place]. tel:[phone] Consulting Provider: Lucas AU, [address] [address], [place], [address]. [phone] ring Provider: Emir Espinal, [address] [place] [address], [address]. [phone] OFFICE/OUTPAT IENT VISIT, [facility], [address] [place] [address], [id number] , [place] [phone] [facility] low back pain (chief complaint) Low back painPostlamine ctomy syndrome, not elsewhere classified Ney Stacie. [address] [place] [address], [id number], [place]. tel:[phone] Consulting Provider: Lucas AU, [address], [place], [address]. tel:[phone] ring Provider: Emir Espinal, [address] [place] [address], [address]. tel:[phone] OFFICE/OUTPAT IENT VISIT, [facility], [address] [place] [address], [id number] , [place] tel:[phone] [facility] [place] low back pain (chief complaint) Trochanteric bursitis, right hipTrochanteri c bursitis, left hipLow back painPostlamine ctomy syndrome, not elsewhere classified 5 Ney Stacie. [address], [place], [id number], [place]. tel:[phone] Consulting Provider: Lucas AU, [address] [address], [place], [address]. [phone] [facility] Provider: Emir Espinal, [address] [place] [address], [address]. tel:[phone] OFFICE/OUTPAT IENT VISIT, [facility], [address], [place], [id number] , [place] tel:[phone] [facility] low back pain (chief complaint) Low back painPostlamine ctomy syndrome, not elsewhere classified 5 Ney Cara. [address], [place], [id number], [place]. tel:[phone] Consulting Provider: Lucas AU, [address] [address], [place], [address]. tel:[phone] [facility] Provider: Emir Espinal, [address] [place] [address], [address]. tel: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 [...] today. Comments: Ramona presents for a virtual follow-up [...] The problem is worsening. It occurs persistently. Back Pain Severity level i s 8. [...] experiencing spasms.S/p lumbar sx on 01/16/22 at [facility], and continues to be in the healing process. F/u for a second opinion with [facility] on 04/11/22 who recommended lumbar CARLOS. [...] s/p back surgery, completed on 01/16/22 at [facility], and continues to be in the healing process. Scheduled for a second opinion with [facility] on 04/11. Current medication regimen provides [...] s/p back surgery, completed on 01/16/22 at [facility], and continues to be in the healing process. Patient states she is actively seeking a second opinion with [facility] regarding her back.Current medication regimen provides [...] pain. S/p back surgery on 01/16 at [facility], patient is still experiencing post-op pain. States [...] to worsen.Upcoming back surgery on 01/16 at [facility]. May also needs an additional surgery for [...] financially burdening for her to purchase it [id number]. Endorses OIC, managed with [employer]. Denies other [...] other concerns today. Comments: Ramona presents via [facility] for virtual follow up and medication refill.Recently [...] meds/drugs and rest. Comments: Ramona presents via [facility] for virtual follow up and medication refill.States [...] meds/drugs and rest. Back Pain (comments) Ramona akers for a virtual follow up and [...] other concerns today. Back Pain (comments) Ramona akers for a virtual follow up and [...] 01/17/21. No other concerns today. Back Pain Severity [...] and changing positions. Back Pain (comments) Ramona akers for a virtual follow up and [...] morning. Plans to mail consent form for [place] medical [place] program to [facility].No other concerns today. Back Pain (comments) Ramona [...] scan and will be following up with [facility] in 2 weeks to review the [...] rest, sitting and changing positions. Back Pain (comments) Patient [...] resolved. No other concerns today. Back Pain (comments) [...] long after the surgery. Expresses frustrations with [facility] not providing her the proper [...] though not interested in staying at dosage retirement.No other concerns today. Back Pain (comments) Patient [...] this Friday.No other concerns today. Back Pain (comments) Patient [...] for 09/30.No other concerns today. Back Pain Duration: chroni [...] persistent and chronic. She met with her nuisance wildlife specialist who reviewed her recent lumbar MRI [...] today. She will be starting with a certified personal trainer on Friday. Back Pain Severity level [...] changing positions, prolonged positioning and sitting in nuisance wildlife specialist at particular angle. Back Pain (comments) Ramona [...] she is able to get. Back Pain Severity level i s 6. Duration: chronic. The problem is fluctuating. It occurs persistently. Location of pain is lower back.The patient describes the pain as an ache and sharp. Symptoms are aggravated by bending, sitting, twisting, stooping and prolonged positioning. Symptoms are relieved by lying down, pain meds/drugs, rest and recliner. Back Pain (comments) Patient is here for [...] to wait on getting neck injections at [facility] because her pain is tolerable as of now. She says she joined [employer] gym and works out everyday, which has [...] continue to be painful - treating at [facility]. Nerve blocks have been ordered at [facility] and if ineffective, will be considering [...] meds/drugs, sitting and recliner. low back pain Severity level i [...] and numbness. Will be following up with [facility]. low back pain Severity level i [...] relief; denies any SE. Continues to watch [email or web address]. States her SCS is and never was [...] reports that she completed a CT at [facility]. It was recommended she complete myofascial release [...] more hours during the week. Met with [facility] and fusion looks stable. Has been referred for myofascial release at [facility] in [place]. low back pain Severity level i s [...] more often. Will be starting PT in [place] on 02/23/15. Patient has #5 Oxycontin and [...] relieved by pain meds/drugs. low back pain Severity level i s 8. Duration: chronic. The problem is fluctuating. It occurs occasionally. Location of pain is lower back.The patient describes the pain as an ache and sharp. Symptoms are aggravated by lying/rest, sitting and standing. Symptoms are relieved by pain meds/drugs and rest. low back pain (comments) She has been [...] effectively managing her pain. low back pain (comments) Patient has #22 [...] Back Pain (comments) Patient was referred by [facility]. Patient has a hx of severe lumbar DDD; she had a L4-S1 fusion in April 2011 and revision in February 2014. She also has a hx of cervical fusion in 2010. Neck pain has resolved, she is here today to inquire about treating her low back pain. Patient has a [employer] SCS, though is not currently using it. [...] she knows she will not be driving. [place] is effective for only one hour. She [...] [BMI] 27.0-27.9, adult Assessments Type Assessment Date assessment Chronic pain syndrome impression Ramona is a 62 y/o w bea with neck, low back, and BL knee pain. Pain has been worse since [facility]. Hx of multiple low back and neck surgeries assessment Other intervertebral disc degene ration, lumbar region, NOS impression Back pain has been w orse since [facility]. Hardware removal surgery 09/23/23 w/ Dr. Sawyer, worse leg pain now. Forwarded History: Chronic back pain w/ radicular symptoms into her BL LE. Pain has been worse since SYD. She is s/p lumbar surgery on 01/16 at [facility], and f/u with [facility] who suggested Lumbar CARLOS.Previously discussed additional treatment options: muscle relaxer, trigger point injections, topical meds, and/or medical cannabis. Patient has previously declined these options; Soma was the only thing that helped previously. Discussed that [facility] does not prescribe Soma, but okay to receive from surgeon if patient desires assessment Postlaminectomy syndrome, not el sewhere classified impression Back pain has been w orse since SYD. Hardware removal surgery 09/23/23 w/ Dr. Sawyer, worse leg pain now. Discussed and recommended SCS trial prn. Lidocaine patches have been helpful in treating her chronic pain. Met with her surgeon to discuss the lack of pain relief from her surgery in 09/2023. She was told her pain is largely affected by her diet and was instructed to go on an anti-inflammatory diet. She does not think this is true and is frustrated about this suggestion. She will update her lumbar imaging and f/u with her surgeon in 1 monthForwarded History: Chronic low back pain following multiple lumbar surgeries. She is fused from L2-S1. Pain generalized to the right lower back and right hip. Most recent surgery was [facility] [facility]Patient also previously had collapsed cervical fusion. Surgery completed on 01/17/21 to rebuild fusion; patient reported worsening headaches/migraine 2 weeks following surgery. S/p additional neck surgery on 08/21/21, and she developed stinging and twinging into left arm following.MRI of cervical spine completed on 08/12/23 reviewed and shows: 1. Solid ACDF from C4-5 to C6-7 and indeterminate at C3-4. Also indeterminate dorsal instrumented fusion status by MR.2. No adjacent segment disc herniation or central stenosis.3. C2-3 facet arthropathy and mild foraminal stenosis. C7-T1 bulge abuts dural sac.4. Comparison to CT cervical dated 06/18/2021 shows persistent concern for possible nonhealed anterior C3-4 fusion. Fusions appeared solid anteriorly and posteriorly on CT from C4 to C7 assessment Drug induced constipation impression C/o constipation due to recent surgery. Well managed with Senna. Not discussed today assessment residential (current) use of opiat e analgesic impression Was recently dischar ged d/t having Tramadol, and not having prescribed medications present in her most recent UDT. Reports current medication regimen provides 40% pain relief and allows for increased functionality. Denies any side effects with current medication. Requests to hold off on weening her medication until she's able to see Kiara Álvarez CNP in office. No medications available to count.MME: 180 mg/day. Most recent UDT, completed 11/28/2023, previously reviewed and negative for oxycodone and oxymorphone, positive for Tramadol. 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 Limited benefit, relief, or cure has been obtained from reasonable treatment options including PT, LESI, SCS trial, back surgery, and opioid and nonopioid medications. The patient's current medication regimen allows for increased daily functioning and an improved quality of life. Reviewed the risks of continued high dose opioid medications and a patient has an RX of Narcan available Mental Status Date Cognitive Assessment Orientation - Kennard ed to time, place, person, situation. Patient Care Teams Name Effective Dates (start - stop) Status Members No Information
== END 2024-01-02 10:12 | disposition left against medical advice (07) ==
LOC: ED 10:10
PROVIDERS: Emergency Provider Family Medicine; PCP Family Medicine
DX: Z53.21 Procedure and treatment not carried out due to patient leaving prior to being seen by health care provider (principal)

== ENCOUNTER 2024-06-28 09:30 | Outpatient (CLI) | payer MEDICARE, OTHER, SELFPAY | END 2024-06-28 09:31 | disposition home or self-care (01) | PROVIDERS: PCP Family Medicine; Visit Provider Family Medicine | DX: E78.2 Mixed hyperlipidemia (principal); E11.9 Type 2 diabetes mellitus without complications; F41.9 Anxiety disorder, unspecified; Z79.84 Long term (current) use of oral hypoglycemic drugs; Z79.85 Long-term (current) use of injectable non-insulin antidiabetic drugs | CPT/HCPCS: 80048; 80061; 84443 ==

== ENCOUNTER 2024-08-23 09:02 | Outpatient (CLI) | payer MEDICARE, OTHER, SELFPAY ==
--- NOTE | 2024-08-23 09:15 | CRLHL7_ITS ---
For Patients: As a result of the Century Cures Act, medical imaging exams and procedure reports are released immediately into your electronic medical record. You may view this report before your referring provider. If you have questions, please contact your health care provider. INDICATION: BILATERAL SCREENING MAMMOGRAM, ASYMPTOMATIC 63 Y/O FEMALE COMPARISON: 08/22/2023, 07/31/2022, 01/12/2021 TECHNIQUE: Digital mammogram in CC and MLO projections including computer-aided detection (CAD) and tomosynthesis. BREAST COMPOSITION: The breasts are heterogeneously dense, which may obscure small masses. FINDINGS: No suspicious findings. ASSESSMENT: BI-RADS 1 Negative RECOMMENDATION: Annual screening mammogram. A lay language report of this examination will be provided to the patient. Dictated by: Ronald Porter MD @ 08/23/2024 10:12:24 (Electronically Signed)
== END 2024-08-23 09:03 | disposition home or self-care (01) ==
LOC: MAMMO 09:02
PROVIDERS: PCP Family Medicine; Visit Provider Family Medicine
DX: Z12.31 Encounter for screening mammogram for malignant neoplasm of breast (principal); R92.333 Mammographic heterogeneous density, bilateral breasts
CPT/HCPCS: 77063; 77067

== ENCOUNTER 2024-10-08 17:54 | Emergency (ER) | payer MEDICARE, OTHER, SELFPAY ==
--- OUTSIDE RECORDS SUMMARY | 2013-08-03 11:58 | XMS_ITS | Continuity of Care Document ---
Author Organization [facility] Address [address] [place] [address] Phone Care Team Providers Care Varnishing Unit Tool Setter Name Role Phone Ronald Herrera MD Unavailable Unavailable Allergies, Adverse Reactions, Alerts Substance Reaction Status Criticality metaxalone (mild) Active No Information methocarbamol activates RLS(mild) Active No Info rmation baclofen Nausea(mild) Active No Information divalproex sodium Hives/Skin Rash(mild) Active N o Information VENLAFAXINE HCL Hives/Skin Rash(mild) Active No Information carisoprodol Hives/Skin Rash(mild) Active No Inf ormation DIPHENHYDRAMINE HCL activates RLS(moderate) Active No Information PROCHLORPERAZINE MALEATE Discomfort(mild) Active No Information PROCHLORPERAZINE EDISYLATE Discomfort(mild) Active No Information Medications Medication Instructions Dosage Effective Dates (start - stop) Status Comments PRILOSEC (unknown strength) take 2 capsule by oral route every day before a meal Not Available - Active Mirapex 0.5 mg tablet take 1 tablet by ORAL route every day 0.5 MG - Active hydrochlorothiazide 25 mg tablet take 1 tablet by oral route every day 25 MG - Active Miralax 17 gram/dose Oral Powder take (17G) by oral route every day mixed with 8 oz. water, juice, soda, coffee or tea as needed - Active fentanyl 50 mcg/hr transdermal patch apply 1 patch by transdermal route every 72 hours 50 MCG/H - No Longer Active Combine with home supply. To last until appt on 08/10. Procedures Procedure Date Est Pt Eval 15 Min Offic/outpt E&m Estab Mod-hi 4 14 Offic/outpt E&m Estab Low-mod 4 Offic/outpt E&m Estab Low-mod 4 Inj Anes Facet Jt; Lumb/sac-1st Level Ma Inj Anes Facet Jt; Lumb/sac-2nd Level Ma Mod cs by same phys, 5 yrs + Lo Osm Contr Mat (200-249mg) IV Admin Kit Infus Normal Saline Soln 250 C 14 Phys Therap Eval Therapeutic Activities Medicare Falls Asses No Fall Psychiatric Diagnostic Evaluation Offic/outpt E&m Estab Low-mod 4 Offic/outpt E&m Estab Mod-hi 2 14 Drug Screen: Mx Drug Classes Epid/SAB Lumbosacral Epidurography Offic Cons New/estab Mod-hi 60 14 QA DONE Advance Directives Directive Yes / No Effective Date File Name No Information Encounters Encounter Description Practice Location Reason(s) For Visit Diagnoses Date Provider Providers Copied on Encounter [facility], [address], [place], [place], [address], [place] tel:[phone] [facility] No Information 4 Sharon Cardenas. [address], [place], [place], [address], [place]. tel:[phone] Referring Provider: Tommy Mcelroy MD C, [address], [place], [address]. tel:[phone] [facility], [address], [place], [place], [address], [place] tel:[phone] [facility] No Information 4 RN RN. [address], [address], [place], [place], [address], [place]. tel:[phone] Referring Provider: Tommy Rand, [address], [place], [address]. tel:[phone] Est Pt Eval 15 Min [facility], [facility], [address], [place], [place], [address], [place] tel:[phone] [facility] No Information 4 No Information Referring Provider: Tommy Rand, [address], [place], [address]. tel:[phone] Offic/outpt E&m Estab Mod-hi 4 [facility], [address], [place], [place], [address], [place] tel:[phone] [facility] No Information 4 No Information Referring Provider: Tommy Rand, [address], [place], [address]. tel:[phone] Offic/outpt E&m Estab Low-mod [facility], [facility], [address], [place], [place], [address], [place] tel:[phone] [facility] No Information 4 No Information Referring Provider: Tommy Rand, [address], [place], [address]. tel:[phone] Offic/outpt E&m Estab Low-mod [facility], [address], [place], [place], [address], [place] tel:[phone] [facility] No Information 4 No Information Referring Provider: Tommy Rand, [address], [place], [address]. tel:[phone] [facility], [address], [place], [place], [address], [place] tel:[phone] [facility] No Information 4 No Information Referring Provider: Tommy Rand, [address], [place], [address]. tel:[phone] [facility], [facility], [address], [place], [place], [address], [place] tel:[phone] [facility] [facility] 7[address] No Information 0 4 Tremayne Medinaagustin Ruiz. [address], [address], [place], [place], [address], [place]. tel:[phone] Referring Provider: Tommy Rand, [address], [place], [address]. tel:[phone] Psychiatric Diagnostic Evaluation [facility], [facility], [address], [place], [place], [address], [place] tel:[phone] [place] [facility] 7390 No Information 4 Femi Cristina. [address], [address], [place], [place], [address], [place]. tel:[phone] Referring Provider: Tommy Rand, [address], [place], [address]. tel:[phone] Offic/outpt E&m Estab Low-mod [facility], [facility], [address], [place], [place], [address], [place] tel:[phone] [facility] No Information 4 No Information Referring Provider: Tommy Rand, [address], [place], [address]. tel:[phone] Offic/outpt E&m Estab Mod-hi 2 [facility], [facility], [address], [place], [place], [address], [place] tel:[phone] [facility] No Information 4 No Information Referring Provider: Tommy Rand, [address], [place], [address]. tel:[phone] [facility], [address], [place], [place], [address], [place] tel:[phone] [facility] No Information 4 Sharon Cardenas. [address], [place], [place], [address], [place]. tel:[phone] Referring Provider: Tommy Rand, [address], [place], [address]. tel:[phone] Offic Cons New/estab Mod-hi [address] [facility], [address], [place], [place], [address], tel:[phone] [facility] No Information 4 No Information Referring Provider: Tommy Rand, [address], [place], [address]. tel:[phone] Family History Family Member Type Diagnosis Age At Onset N/A Problem (finding) No Significant Family H istory Payers Payer name Insurance type Covered constitution party ID Authoriza tiflaco(s) [facility]-Medicaid [id number] Social History Type Description Quantity Date Captured Comments Sex Female Smoking Status No Information Chief Complaint And Reason For Visit No Information Reason For Referral Reason For Referral No Information Plan Of Treatment Date Type Action Status Future Order: Lab Order COMPLIAN CE DRUG ANALYSIS,URINE,WITH MED REPORT ([id number]), Appointment on: , Collected on: , Sent on: Sent History Of Present Illness Encounter Date Complaint History Of Prese nt Illness No Information Functional Status Date Functional Assessmen t No Information Instructions Date Instruction Additional Infor mation No Information Assessments Type Assessment Date No Information Patient Care Teams Name Effective Dates (start - stop) Status Members No Information
--- OUTSIDE RECORDS SUMMARY | 2013-08-03 11:58 | XMS_ITS | Continuity of Care Document ---
Author Organization [facility] Address [address] [place] [address] Phone Care Team Providers Care Stonework Tracer Name Role Phone Ronald Herrera MD Unavailable [...] before a meal Not Available - Active hydrochlorothiazide 25 mg tablet take 1 tablet by oral route every day 25 MG - Active Mirapex 0.5 mg tablet take 1 tablet by ORAL route every day 0.5 MG - Active Miralax 17 gram/dose Oral [...] Date Provider Providers Copied on Encounter [facility], [address], [place], [place], [address], [place] tel:[phone] [facility] No Information 4 Sharon Cardenas. [address], [place], [place], [address], [place]. tel:[phone] Referring Provider: Tommy Mcelroy MD C, [address], [place], [address]. tel:[phone] [facility], [address], [place], [place], [address], [place] tel:[phone] [facility] No Information 4 RN RN. [address], [place], [place], [address], [place]. tel:[phone] Referring Provider: Tommy Rand, [address], [place], [address]. tel:[phone] Est Pt Eval 15 Min [facility], [facility], [address], [place], [place], [address], [place] tel:[phone] [facility] No Information 4 No Information Referring Provider: Tommy Rand, [address], [place], [address]. tel:[phone] Offic/outpt E&m Estab Mod-hi 4 [facility], [address], [place], [place], [address], [place] tel:[phone] [facility] No Information 4 No Information Referring Provider: Tommy Rand, [address], [place], [address]. tel:[phone] Offic/outpt E&m Estab Low-mod [facility], [facility], [address], [place], [place], [address], [place] tel:[phone] [facility] No Information 4 No Information Referring Provider: Tommy Rand, [address], [place], [address]. tel:[phone] Offic/outpt E&m Estab Low-mod [facility], [address], [place], [place], [address], [place] tel:[phone] [facility] No Information 4 No Information Referring Provider: Tommy Rand, [address], [place], [address]. tel:[phone] [facility], [address], [place], [place], [address], [place] tel:[phone] [facility] No Information 4 No Information Referring Provider: Tommy Rand, [address], [place], [address]. tel:[phone] [facility], [facility], [address], [place], [place], [address], [place] tel:[phone] Ayleen [facility] 7390 No Information 0 4 Tremayne Medinaagustin Ruiz. [address], [address], [place], [place], [address], [place]. tel:[phone] Referring Provider: Tommy Rand, [address], [place], [address]. tel:[phone] Psychiatric Diagnostic Evaluation [facility], [facility], [address], [place], [place], [address], [place] tel:[phone] [place] [facility] [address]390 No Information 4 Femi Cristina. [address], [address], [place], [place], [address], [place]. tel:[phone] Referring Provider: Tommy Rand, [address], [place], [address]. tel:[phone] Offic/outpt E&m Estab Low-mod [facility], [facility], [address], [place], [place], [address], [place] tel:[phone] [facility] No Information 4 No Information Referring Provider: Tommy Rand, [address], [place], [address]. tel:[phone] Offic/outpt E&m Estab Mod-hi 2 [facility], [facility], [address] [facility] [address], [place], [place], [address], [place] tel:[phone] [facility] No Information 4 No Information Referring Provider: Tommy Rand, [address], [place], [address]. tel:[phone] [facility], [address], [place], [place], [address], [place] tel:[phone] [facility] No Information 4 Sharon Cardenas. [address], [place], [place], [address], [place]. tel:[phone] Referring Provider: Tommy Rand, [address], [place], [address]. tel:[phone] Offic Cons New/estab Mod-hi 60 [facility], [address], [place], [place], [address], tel:[phone] [facility] No Information 4 No Information Referring Provider: Tommy Rand, [address], [place], [address]. tel:[phone] Family History Family Member Type Diagnosis Age At Onset N/A Problem (finding) No Significant Family H istory Payers Payer name Insurance type Covered alliance party ID Authoriza tiflaco(s) [facility]-Medicaid [id number] Social History Type Description Quantity Date Captured Comments Sex Female Smoking Status No Information Chief Complaint And Reason For Visit No Information Reason For Referral Reason For Referral No Information Plan Of Treatment Date Type Action Status Future Order: Lab Order COMPLIAN CE DRUG ANALYSIS,URINE,WITH MED REPORT ([id number]), Appointment on: , Collected on: , Sent [...]
--- OUTSIDE RECORDS SUMMARY | 2023-06-25 03:40 | XMS_ITS | Continuity of Care Document ---
Author Organization [facility] Address [address] [address] [place] [address] Phone Care Team Providers Care Box Toe Stitcher Name Role Phone Sanjay Evangelista MD Unavailable Unavailabl e Allergies, Adverse Reactions, Alerts Substance Reaction Status Criticality No Known Allergies Active No Inform ation Medications Medication Instructions Dosage Effective Dates (start - stop) Status Comments omeprazole 40 mg capsule,delayed release take 1 capsule by oral route every day before a meal 40 MG - Active Lexapro 20 mg tablet take 1 tablet by oral route every day 20 MG - Active Wellbutrin XL 300 mg 24 hr tablet, extended release take 1 tablet by oral route every day 300 MG - Active Cymbalta 60 mg capsule,delayed release take 1 capsule by oral route every day 60 MG - Active Cymbalta 30 mg capsule,delayed release take 1 capsule by oral route every day - Active MIRAPEX ER (unknown strength) take 1 tablet by oral route every day Not Available - Active simvastatin 20 mg tablet take 1 tablet by oral route every day in the evening 20 MG - Active prazosin 1 mg capsule take 1 capsule by oral route every day 1 MG - Active TOPAMAX (unknown strength) take 1 capsule by oral route 2 times every day in the morning and evening Not Available - Active trazodone 100 mg tablet take 1 tablet by oral route 2 times every day after meals 100 MG - Active metformin 1,000 mg tablet take 1 tablet by oral route 2 times every day with morning and evening meals 1000 MG - Active LAMOTRIGINE (unknown strength) take 1 tablet by oral route 2 times every day Not Available - Active lorazepam 1 mg tablet take 1 tablet by oral route 3 times every day as needed 1 MG - Active Linzess 145 mcg capsule take 1 capsule by oral route every day on an empty stomach at least 30 minutes before 1st meal of the day 145 MCG - Active tizanidine 4 mg capsule take 1 capsule by oral route every 6 - 8 hours as needed not to exceed 3 doses in 24 hours 4 MG - Active OxyContin 20 mg tablet,crush resistant,extended release take 1 tablet by oral route every 12 hours 20 MG - Active Procedures Procedure Date Offic/outpt E&m [facility] Advance Directives Directive Yes / No Effective Date File Name No Information Encounters Encounter Description Practice Location Reason(s) For Visit Diagnoses Date Provider Providers Copied on Encounter [facility], [address] [address], [place], [id number], [place] tel:[phone] [facility] No Information 4 Jonah Grace. [address], [id number], [place]. tel:[phone] Offic/outpt E&m [facility] [place], [address] [address], [place], [id number], [place] tel:[phone] [facility] GI Symptoms or Concerns (chief complaint) Abdominal distensionColon cancer screening 4 Pelon Terrazas. [address], [id number], [place]. tel:[phone] Referring Provider: Blaire MONZON N, [address], [place], [address]. tel:[phone] [facility], [address] [address], [place], [place], [id number], tel:[phone] [facility] No Information 4 Jonah Grace. [address] [facility], [facility] [address], [place], [place], [id number], [place]. tel:[phone] Family History Family Member Type Diagnosis Age At Onset Mother Problem (finding) Pancreatitis Father Problem (finding) Cancer, kidney Brother Problem (finding) Alcoholism Mother Problem (finding) Alcoholism Immunizations Vaccine Date Status Comments Afluria Qd administered Note: [facility] bi-directional interface ; Source: Other Registry SARS-COV-2 (COVID-19) vaccin e, mRNA, spike protein, LNP, preservative free, 30 mcg/0.3mL dose, lia-sucrose formulation administered Note: MII C bi- directional interface ; Source: Other Registry SARS-COV-2 (COVID-19) vaccin e, mRNA, spike protein, LNP, preservative free, 30 mcg/0.3mL dose administered Note: [facility] bi-direct ional interface ; Source: Other Registry Seasonal, quadrivalent, recombinant, injectable influenza vaccine, preservative free administered Note: [facility] bi-direct ional interface ; Source: Other Registry SARS-COV-2 (COVID-19) vaccin e, mRNA, spike protein, LNP, preservative free, 30 mcg/0.3mL dose administered Note: [facility] bi-direct ional interface ; Source: Other Registry SARS-COV-2 (COVID-19) vaccin e, mRNA, spike protein, LNP, preservative free, 30 mcg/0.3mL dose administered Note: [facility] bi-direct ional interface ; Source: Other Registry tetanus toxoid, reduced diphtheria toxoid, and acellular pertussis vaccine, adsorbed administered Note: [facility] b i-directional interface ; Source: Other Registry Seasonal, quadrivalent, recombinant, injectable influenza vaccine, preservative free administered Note: [facility] bi-direct ional interface ; Source: Other Registry zoster vaccine recombinant administered N ote: [facility] bi-directional interface ; Source: Other Registry zoster vaccine recombinant administered N ote: [facility] bi-directional interface ; Source: Other Registry Afluria Qd administered Note: [facility] bi-directional interface ; Source: Other Registry Influenza, seasonal, injecta ble, preservative free administered Note: [facility] bi-direct ional interface ; Source: Other Registry Pneumovax 23 administered Note: [facility] bi-d irectional interface ; Source: Other Registry tetanus toxoid, reduced diphtheria toxoid, and acellular pertussis vaccine, adsorbed administered Note: [facility] b i-directional interface ; Source: Other Registry Influenza, seasonal, injecta ble, preservative free administered Note: [facility] bi-direct ional interface ; Source: Other Registry Payers Payer name Insurance type Covered alliance party ID Authoriza tion(s) No Information Social History Type Description Quantity Date Captured Comments Sex Female Smoking Status No Information Chief Complaint And Reason For Visit No Information Reason For Referral Reason For Referral No Information Plan Of Treatment Date Type Action Status Referral Ordered: Colonoscopy Appointment date/timeframe: 06/10/2023 ordered Referral Ordered: CT Abdomen And Pelvis WITH Contrast Appointment date/timeframe: 06/03/2023 ordered History Of Present Illness Encounter Date Complaint History Of Prese nt Illness GI Symptoms or Concerns This is a 62-year-old female with a past medical history of depression, diabetes, appendectomy, cervical and lumbar fusion who presents to us for evaluation of abdominal distention. she is being sent to us for consultation by referring provider NICOL[facility]S Mejia for these symptoms. patient notes that since January of 2022 when she had back surgery with an anterior approach, she has noticed more of a distention in her abdomen which does not necessarily produce any symptoms such as abdominal pain or bloating. She describes perhaps abdominal pain with deep palpation but otherwise no pain. Patient also describes difficulty with buttoning her jeans. She describes since January of 2022 she is lost 10 pounds deliberately. Patient notes that she has no nausea or vomiting. Patient has 1 bowel movement a day type 4 on the [place] stool chart. She does take Linzess 145 micrograms once a day as well as senna 2 tablets at night. Sometimes she can overdo it with the laxative therapy and then have a type 5 bowel movement but has good feeling of evacuation. She does take OxyContin 20 milligrams twice a day. Of note she has not up to date with her colon cancer screening she says she had a colonoscopy 2 years ago but they were only able to complete 80 percent per patient report. Patient does occasionally smoke cigarettes. No recreational drug use or alcohol use. No family history of colon cancer. Functional Status Date Functional Assessmen t No Information Instructions Date Instruction Additional Infor marco -- As we discussed i n the office the abdomen distention and hardness is likely multifactorial as we discussed with no one specific cause leading to its appearance-- to ensure that there is nothing concerning leading to the abdominal distention and hardness we will order a CT abdomen pelvis-- if this is unremarkable no further workup will be required. I will be in contact with you about the CT scan results through the portal-- we will pursue colonoscopy from a colon cancer screening standpoint-- as we discussed in the appointment due to your history of constipation we will require double prep in our schedulers will be in communication to you about this Related to Abdominal distension Assessments Type Assessment Date No Information Patient Care Teams Name Effective Dates (start - stop) Status Members No Information
--- OUTSIDE RECORDS SUMMARY | 2023-06-25 03:40 | XMS_ITS | Continuity of Care Document ---
Author Organization [facility] Address [address] [address] [place] [address] Phone Care Team Providers Care Integrity Director Name Role Phone Sanjay Evangelista MD Unavailable [...] - Active Procedures Procedure Date Offic/outpt E&m [facility] Advance Directives Directive Yes / No Effective Date File Name No Information Encounters Encounter Description Practice Location Reason(s) For Visit Diagnoses Date Provider Providers Copied on Encounter [facility], [address] [address], [place], [id number], [place] tel:[phone] [facility] No Information 4 Jonah Grace. [address], [id number], [place]. tel:[phone] Offic/outpt E&m [facility], [address] [address], [place], [id number], [place] tel:[phone] [facility] GI Symptoms or Concerns (chief complaint) Abdominal distensionColon cancer screening 4 Pelon Terrazas. [address], [id number], [place]. tel:[phone] Referring Provider: Blaire MONZON N, [address], [place], [address]. tel:[phone] [facility] [place], [address] [address], [place], [place], [id number], tel:[phone] [facility] No Information 4 Jonah Grace. [address] [facility], [facility] [address], [place], [place], [id number], [place]. tel:[phone] Family History Family Member Type Diagnosis Age [...] Registry Payers Payer name Insurance type Covered democrat ID Authoriza tion(s) No Information Social History [...] movement a day type 4 on the [place] stool chart. She does take Linzess 145 [...]
--- OUTSIDE RECORDS SUMMARY | 2024-09-06 03:15 | XMS_ITS | Continuity of Care Document ---
Author Organization [facility] Address [address] [place] [address] Care Team Providers Care Co Chairman Name Role Phone [facility] Unavailable Unav ailable Procedures Procedure Date INTERLAMINAR [...] Diagnoses Date Provider Providers Copied on Encounter [facility], [address] [place], [place], [id number], [place] [facility] No Information [facility]. [address] [place], [place], [id number], . tel:[phone] Referring Provider: Divina Deras, [address] [place], [address]. tel:[phone] [facility], [address] [place], [place], [id number], [place] [facility] [place] No Information [facility]. [facility] [place], [id number], [place]. tel:[phone] Referring Provider: Divina Deras, [address] [place] [address] [place], [address]. tel:[phone] [place] [address] [facility] [place], [address] [place] [address], [id number], [facility] [place] No Information [facility] [place]. [address] [place] [address] Devendra, [place], [id number], [place]. tel:[phone] Referring Provider: Divina Deras, [address] [place] [address], [address]. tel:[phone] [place] [address], [address] [place] [address] [place], [id number], [facility] [place] No Information [facility]. [address] [place] [address] [place], [id number], [place]. tel:[phone] Referring Provider: Divina Deras, [address] [place] [address], [address]. tel:[phone] [place] [address], [address] [place] [address] [place], [id number], [facility] [place] No Information [facility]. [address] [place] [address] [place], [id number], [place]. tel:[phone] Referring Provider: Divina Deras, [address] [place] [address], [address]. tel:[phone] [place] [address], [address] [place] [address] [place], [id number], [facility] [place] No Information [facility]. [address] [place] [address] Pablo [place]ay [place], [id number], [place]. tel:[phone] Referring Provider: Divina Deras, [address] [place] [address], [address]. tel:[phone] Family History Family Member Type Diagnosis Age At Onset No Information Payers Payer name Insurance type Covered constitution party ID Authoriza tiflaco(s) [employer] Prime Solution [id number] CI [id number] Social History Type Description Quantity Date Captured [...]
--- OUTSIDE RECORDS SUMMARY | 2024-09-06 03:15 | XMS_ITS | Continuity of Care Document ---
Author Organization [facility] Address [address] [place] [address] Care Team Providers Care Abalone Sheller Name Role Phone [facility] Unavailable Unav ailable Procedures Procedure Date [...] Diagnoses Date Provider Providers Copied on Encounter [facility], [address] [place], [place], [id number], [place] [facility] No Information [facility]. [address] [place], [place], [id number], . tel:[phone] Referring Provider: Divina Deras, [address] [place], [address]. tel:[phone] [facility], [address] [place], [place], [id number], [place] [facility] [place] No Information [facility]. [facility] [place], [id number], [place]. tel:[phone] Referring Provider: Divina Deras, [address] [place] [address] [place], [address]. tel:[phone] [place] [address] [facility] [place], [address] [place] [address], [id number], [facility] [place] No Information [facility] [place]. [address] [place] [address] Devendra, [place], [id number], [place]. tel:[phone] Referring Provider: Divina Deras, [address] [place] [address], [address]. tel:[phone] [place] [address], [address] [place] [address] [place], [id number], [facility] [place] No Information [facility]. [address] [place] [address] [place], [id number], [place]. tel:[phone] Referring Provider: Divina Deras, [address] [place] [address], [address]. tel:[phone] [place] [address], [address] [place] [address] [place], [id number], [facility] [place] No Information [facility]. [address] [place] [address] [place], [id number], [place]. tel:[phone] Referring Provider: Divina Deras, [address] [place] [address], [address]. tel:[phone] [place] [address], [address] [place] [address] [place], [id number], [facility] [place] No Information [facility]. [address] [place] [address] Pablo [place]ay [place], [id number], [place]. tel:[phone] Referring Provider: Divina Deras, [address] [place] [address], [address]. tel:[phone] Family History Family Member Type Diagnosis Age At Onset No Information Payers Payer name Insurance type Covered alliance party ID Authoriza tiflaco(s) [employer] Prime Solution [id number] CI [id number] Social History Type Description Quantity Date Captured [...]
--- OUTSIDE RECORDS SUMMARY | 2024-09-10 03:58 | XMS_ITS | Continuity of Care Document ---
Author Organization [facility] Address [address] [place] [address] Care Team Providers Care Freelance Operator Name Role Phone Sulaiman Clancy CRNA Unavailable Unavailable Procedures Procedure Date Percutaneous Image guided injection, dra glez, agustin ANESTH, NERVE BLOCK/INJ Percutaneous Image guided destruction pr ocedures B ANESTH, NERVE BLOCK/INJ Advance Directives Directive Yes / No Effective Date File Name No Information Encounters Encounter Description Practice Location Reason(s) For Visit Diagnoses Date Provider Providers Copied on Encounter [facility], [address] [place] [address], [id number], [facility] [place] No Information Aston Hilario. [address] [facility] [place], [place], [id number], . tel:[phone] Referring Provider: Divina Deras, [address] [place] [address] [place], [address] . tel:[phone] [facility], [address] [facility] [place], [id number], [facility] [place] No Information Ethan Reynolds. [address], [place], [place], [id number], . tel:[phone] Referring Provider: Divina Deras, [address] [facility] [place], [address] . tel:[phone] [facility], [address] [place], [place], [id number], [facility] [place] No Information Devang Lockwood. [address] [facility] [address], [place], [place], [id number], . tel:[phone] Referring Provider: Divina Deras, [address] [facility] [place], [address] . tel:[phone] [facility], [address] [place], [place], [id number], [facility] [place] No Information Cy Campos. [address] [facility], [place], [place], [id number], . tel:[phone] Referring Provider: Divina Deras, [address] [facility] [place], [address] . tel:[phone] Family History Family Member Type Diagnosis Age At Onset No Information Payers Payer name Insurance type Covered alliance party ID Authoriza tiflaco(s) [employer] Medicare Prime Solution [id number] CI [id number] Social History Type Description Quantity Date Captured [...]
--- OUTSIDE RECORDS SUMMARY | 2024-09-10 03:58 | XMS_ITS | Continuity of Care Document ---
Author Organization [facility] Address [address] [place] [address] Care Team Providers Care Needle Board Repairer Name Role Phone Sulaiman Clancy CRNA Unavailable Unavailable Procedures Procedure Date Percutaneous Image guided injection, dra glez, agustin ANESTH, NERVE BLOCK/INJ Percutaneous Image guided destruction pr ocedures B ANESTH, NERVE BLOCK/INJ Advance Directives Directive Yes / No Effective Date File Name No Information Encounters Encounter Description Practice Location Reason(s) For Visit Diagnoses Date Provider Providers Copied on Encounter [facility], [address] [place] [address], [id number], [facility] [place] No Information Aston Hilario. [address] [facility] [place], [place], [id number], . tel:[phone] Referring Provider: Divina Deras, [address] [place] [address] [place], [address] . tel:[phone] [facility], [address] [facility] [place], [id number], [facility] [place] No Information Ethan Reynolds. [address], [place], [place], [id number], . tel:[phone] Referring Provider: Divina Deras, [address] [facility] [place], [address] . tel:[phone] [facility], [address] [place], [place], [id number], [facility] [place] No Information Devang Lockwood. [address] [facility] [address], [place], [place], [id number], . tel:[phone] Referring Provider: Divina Deras, [address] [facility] [place], [address] . tel:[phone] [facility], [address] [place], [place], [id number], [facility] [place] No Information Cy Campos. [address] [facility], [place], [place], [id number], . tel:[phone] Referring Provider: Divina Deras, [address] [facility] [place], [address] . tel:[phone] Family History Family Member Type Diagnosis Age At Onset No Information Payers Payer name Insurance type Covered alliance party ID Authoriza tiflaco(s) [employer] Prime Solution [id number] CI [id number] Social History Type Description Quantity Date Captured [...]
--- OUTSIDE RECORDS SUMMARY | 2024-09-20 03:56 | XMS_ITS | Continuity of Care Document ---
Author Organization [facility] tommie Address [address] [place] [address] Phone Care Team Providers Care Wire Worker Name Role Phone Ronald Maldonado Unavailable Unavailable Allergies, Adverse Reactions, Alerts Substance Reaction Status Criticality diphenhydramine Active No Informati on PROCHLORPERAZINE MALEATE Active No Information PROCHLORPERAZINE EDISYLATE Active N o Information Medications Medication Instructions Dosage Effective Dates (start - stop) Status Comments Suboxone 8 mg-[address] 0.5 film by sublingual route 4 times every day for chronic pain allow to dissolve slowly in mouth without chewing or swallowing. MAX 2 films/day - Active [id number], to fill and start 09/20 tizanidine 4 mg tablet take 1 tablet my mouth BID prn muscle spasm - Active lidocaine 5 % topical patch apply 1 - 3 patches to low back every day for up to 12 hours per 24 hours. - Active simvastatin 10 mg tablet take 1 tablet by oral route every day in the evening 10 MG - Active Wellbutrin XL 300 mg 24 hr tablet, extended release take 1 tablet by oral route every day 300 MG - Active Cymbalta 60 mg capsule,delayed release take 2 capsule by oral route every day 120 MG - Active Ozempic 2 mg/dose (8 mg/3 mL) subcutaneous pen injector inject (2MG) by subcutaneous route every week on the same day of each week 2 MG - Active Ativan 1 mg tablet [...] Procedures Procedure Date OFFICE VISIT, EST TELEMEDICINE INTERLAMINAR LMBR OR SAC OR CAUDAL OFFICE VISIT, EST TELEMEDICINE OFFICE/OUTPATIENT VISIT, EST Drug Urine Toxology With Chromatography OFFICE VISIT, EST TELEMEDICINE OFFICE VISIT, EST TELEMEDICINE OFFICE/OUTPATIENT VISIT, EST Drug test def 1-7 classes Drug Urine Toxology With Chromatography OFFICE/OUTPATIENT VISIT, EST OFFICE/OUTPATIENT VISIT, EST Prolong off/op e/m ea 15 min OFFICE VISIT, EST TELEMEDICINE OFFICE/OUTPATIENT VISIT, EST Drug Urine Toxology With Chromatography Drug test def 8-14 classes OFFICE VISIT, EST TELEMEDICINE Drug test def [...] q3mo opiod tx OFFICE VISIT, EST TELEMEDICINE Miguel-26-20 23 Foll-up eval q3mo opiod tx OFFICE/OUTPATIENT VISIT, [...] opiod tx OFFICE VISIT, EST TELEMEDICINE Drug test def 1-7 classes Drug Urine Toxology With Chromatography PT-FOCUSED HLTH RISK ASSMT Foll-up eval q3mo [...] Providers Copied on Encounter OFFICE VISIT, EST TELEMEDICINE [facility], [address] [place], [id number] , [place] tel:[phone] [facility] [place] Widespread pain (chief complaint) Chronic pain syndromePostl aminectomy syndrome, not elsewhere classifiedDru g induced constipationL lupis term (current) use of opiate analgesicRadi culopathy, lumbar region 5 Darnell Cardenas. [address] [place] [address], [id number], [place]. tel:[phone] Consulting Provider: Lucas Talamantes, [facility] [address], [place], [address]. tel:[phone] [facility], [address] [place] [address], [id number] , [place] [phone] [facility] [place] Radiculopathy , lumbar region 5 Braeden Murcia. [address] [place] [address], [id number], [place]. tel:[phone] Referring Provider: Ronald Patrick, [address] [place] [address], [id number]. tel:[phone] OFFICE VISIT, EST TELEMEDICINE [facility], [address] [place] [address], [id number] , [place] [phone] [facility] Widespread pain (chief complaint) Chronic pain syndromePostl aminectomy syndrome, not elsewhere classifiedDru g induced constipationL lupis term (current) use of opiate analgesicRadi culopathy, lumbar region 5 Darnell Cardenas. [address] [place] [address], [id number], [place]. tel:[phone] Consulting Provider: Lucas Talamantes, [facility] [address], [address], [place], [address]. tel:[phone] ring Provider: Emir Espinal, [address] [place] [address], [id number]. tel:[phone] OFFICE/OUTPAT IENT VISIT, EST [facility], [address] [place] [address], [id number] , [place] tel:[phone] [facility] Widespread pain (chief complaint) Chronic pain syndromePostl aminectomy syndrome, not elsewhere classifiedDru g induced constipationL lupis term (current) use of opiate analgesicRadi culopathy, lumbar regionEncount er for therapeutic drug level monitoring 5 Darnell Cardenas. [address] [place] [address], [id number], [place]. tel:[phone] Consulting Provider: Lucas Talamantes, [facility] [address], [address], [place], [address]. tel:[phone] ring Provider: Emir Espinal, [address] [place] [address], [id number]. tel:[phone] OFFICE VISIT, [facility], [address] [place] [address], [id number] , [place] tel:[phone] [facility] Widespread pain (chief complaint) Chronic pain syndromeOther intervertebra l disc degeneration, lumbar region, NOSPostlamine ctomy syndrome, not elsewhere classifiedDru g induced constipationL lupis term (current) use of opiate analgesic May-0 6- 5 Darnellbuddy Cardenas. [address] [place] [address], [id number], [place]. tel:[phone] Consulting Provider: Lucas Talamantes, [facility] [address], [address], [place], [address]. tel:[phone] ring Provider: Emir Espinal, [address] [place] [address], [id number]. tel:[phone] OFFICE VISIT, [facility], [address] [place] [address], [id number] , [place] tel:[phone] [facility] [place] low back pain (chief complaint) Chronic pain syndromeOther intervertebra l disc degeneration, lumbar region, NOSPostlamine ctomy syndrome, not elsewhere classifiedDru g induced constipationL lupis term (current) use of opiate analgesic Apr-0 8- 5 Jonah Pastorbeke Kiara. [address] [place] [address], [id number], [place]. tel:[phone] Consulting Provider: Lucas Talamantes, [facility] [address], [address], [place], [address]. tel:[phone] ring Provider: Emir Espinal, [address] [place] [address], [id number]. tel:[phone] OFFICE/OUTPAT IENT VISIT, [facility], [address] [place], [place], [id number] , [place] tel:[phone] [facility] low back pain (chief complaint) Chronic pain syndromeOther intervertebra l disc degeneration, lumbar region, NOSPostlamine ctomy syndrome, not elsewhere classifiedDru g induced constipationL lupis term (current) use of opiate analgesicBody mass index [BMI] 19.9 or less, adultEncounte r for therapeutic drug level monitoring 5 Darnell Cardenas. [address], [place], [id number], [place]. tel:[phone] Consulting Provider: Lucas Talamantes, [facility] [address], [address], [place], [address]. tel:[phone] ring Provider: Emir Espinal, [address] [place] [address], [id number]. tel:[phone] OFFICE/OUTPAT IENT VISIT, [facility], [address], [place], [id number] , [place] tel:[phone] [facility] back pain (chief complaint) Chronic pain syndromeOther intervertebra l disc degeneration, lumbar region, NOSPostlamine ctomy syndrome, not elsewhere classifiedDru g induced constipationL lupis term (current) use of opiate analgesicEnco unter for therapeutic drug level monitoring 5 Darnell Cardenas. [address], [place], [id number], [place]. tel:[phone] Consulting Provider: Lucas Talamantes, [facility] [address], [address], [place], [address]. tel:[phone] Provider: Emir Espinal, [address] [place] [address], [id number]. tel:[phone] OFFICE/OUTPAT IENT VISIT, [facility], [address] [place], [place], [id number] , [place] tel:[phone] [facility] Opioid dependence, uncomplicated 5 Audrey Silverio. [address] [place] [address], [id number], [place]. tel:[phone] Referring Provider: Emir Espinal, [address] [place] [address], [id number]. tel:[phone] OFFICE VISIT, [facility] TELEMEDICINE [facility], [address] [place] [address], [id number] , [place] tel:[phone] [facility] Back pain (chief complaint) Chronic pain syndromeOther intervertebra l disc degeneration, lumbar region, NOSPostlamine ctomy syndrome, not elsewhere classifiedDru g induced constipationL lupis term (current) use of opiate analgesic 5 Jonah Craig. [address] [place] [address], [id number], [place]. tel:[phone] Consulting Provider: Lucas Talamantes, [facility] [address], [address], [place], [address]. tel:[phone] OFFICE/OUTPAT IENT VISIT, [facility], [address] [place] [address], [id number] , [place] tel:[phone] [facility] Back Pain (chief complaint) Chronic pain syndromeOther intervertebra l disc degeneration, lumbar region, NOSPostlamine ctomy syndrome, not elsewhere classifiedDru g induced constipationL lupis term (current) use of opiate analgesicEnco unter for therapeutic drug level monitoring 4 Jonah Craig. [address] [place] [address], [id number], [place]. tel:[phone] Consulting Provider: Lucas Talamantes, [facility] [address], [address], [place], [address]. tel:[phone] ring Provider: Emir Espinal, [address] [place] [address], [id number]. tel:[phone] OFFICE VISIT, [facility] TELEMEDICINE [facility], [address] [place] [address], [id number] , [place] tel:[phone] [facility] [place] Back Pain (chief complaint) Chronic pain syndromeOther intervertebra l disc degeneration, lumbar region, NOSPostlamine ctomy syndrome, not elsewhere classifiedDru g induced constipationL lupis term (current) use of opiate analgesic 4 Mariusz Orellana. [address] [place] [address], [id number], [place]. tel:[phone] Consulting Provider: Lucas Talamantes, [facility] [address], [address], [place], [address]. tel:[phone] ring Provider: Emir Espinal, [address] [place] [address], [id number]. tel:[phone] [facility], [address] [place] [address], [id number] , [place] tel:[phone] [facility] No Information 4 Jonah Craig. [address] [place] [address], [id number], [place]. tel:[phone] Referring Provider: Emir Espinal, [address] [place] [address], [id number]. tel:[phone] OFFICE VISIT, EST TELEMEDICINE [facility], [address] [place] [address], [id number] , [place] tel:[phone] [facility] [place] Back Pain (chief complaint) Chronic pain syndromeOther intervertebra l disc degeneration, lumbar region, NOSPostlamine ctomy syndrome, not elsewhere classifiedPai n in right kneePain in left kneeDrug induced constipationL lupis term (current) use of opiate analgesicBody mass index [BMI] 27.0-27.9, adult 4 Jonah Craig. [address] [place] [address], [id number], [place]. tel:[phone] Consulting Provider: Lucas Talamantes, [facility] [address], [address], [place], [address]. tel:[phone] OFFICE/OUTPAT IENT VISIT, EST [facility], [address] [place] [address], [id number] , [place] tel:[phone] [facility] [place] Back Pain (chief complaint) Chronic pain syndromeOther intervertebra l disc degeneration, lumbar regionPostlam inectomy syndrome, not elsewhere classifiedPai n in right kneePain in left kneeDrug induced constipationL lupis term (current) use of opiate analgesicEnco unter for therapeutic drug level monitoringBod y mass index [BMI] 27.0-27.9, adult Sep- 4 Jonah Craig. [address] [place] [address], [id number], [place]. tel:[phone] Consulting Provider: Lucas Talamantes, [facility] [address], [address], [place], [address]. tel:[phone] ring Provider: Emir Espinal, [address] [place] [address], [id number]. tel:[phone] [facility], [address] [place] [address], [id number] , tel:[phone] [facility] [place] Back Pain (chief complaint) Chronic pain syndromeOther intervertebra l disc degeneration, lumbar regionPostlam inectomy syndrome, not elsewhere classifiedPai n in right kneePain in left kneeDrug induced constipationL lupis term (current) use of opiate analgesic 4 Jonah Craig. [address] [place] [address], [id number], [place]. tel:[phone] Consulting Provider: Lucas Talamantes, [facility] [address], [address] [facility], [place], [address]. tel:[phone] OFFICE VISIT, EST TELEMEDICINE [facility], [address] [place] [address], [id number] , [place] tel:[phone] [facility] [place] Back pain (chief complaint) Chronic pain syndromeOther intervertebra l disc degeneration, lumbar regionPostlam inectomy syndrome, not elsewhere classifiedPai n in right kneePain in left kneeDrug induced constipationL lupis term (current) use of opiate analgesic 4 Jonah Craig. [address] [place] [address], [id number], [place]. tel:[phone] Consulting Provider: Lucas Talamantes, [facility] [address], [address], [place], [address]. tel:[phone] Provider: Emir Espinal, [address] [place] [address], [id number]. tel:[phone] OFFICE/OUTPAT IENT VISIT, [facility], [address] [place] [address], [id number] , [place] tel:[phone] [facility] [place] Back Pain (chief complaint) Chronic pain syndromeOther intervertebra l disc degeneration, lumbar regionPostlam inectomy syndrome, not elsewhere classifiedPai n in right kneePain in left kneeDrug induced constipationL lupis term (current) use of opiate analgesicEnco unter for therapeutic drug level monitoringCer vicalgia 4 Jonah Craig. [address] [place] [address], [id number], [place]. tel:[phone] Consulting Provider: Lucas Talamantes, [facility] [address], [address], [place], [address]. tel:[phone] Provider: Emir Espinal, [address] [place] [address], [id number]. tel:[phone] OFFICE VISIT, [facility] TELEMEDICINE [facility], [address] [place] [address], [id number] , [place] tel:[phone] [facility] [place] Back pain (chief complaint) Postlaminecto my syndrome, not elsewhere classifiedOth er intervertebra l disc degeneration, lumbar regionPain in right kneePain in left kneeDrug induced constipationL lupis term (current) use of opiate analgesicChro tommie pain syndrome 4 Jonah Pastorberoberto carlos Craig. [address] [place] [address], [id number], [place]. tel:[phone] Consulting Provider: Lucas Talamantes, [facility] [address], [address], [place], [address]. tel:[phone] [facility], [address] [place] [address], [id number] , [place] tel:[phone] [facility]in[facility] [place] Pain in right kneePain in left knee June-0 4 Braeden Murcia. [address] [place] [address], [id number], [place]. tel:[phone] Referring Provider: Kiara Álvarez, [address] [place] [address], [id number]. tel:[phone] OFFICE VISIT, EST TELEMEDICINE [facility], [address] [place] [address], [id number] , [place] [phone] [facility] [place] Back Pain (chief complaint) Chronic pain syndromePostl aminectomy syndrome, not elsewhere classifiedOth er intervertebra l disc degeneration, lumbar regionPain in right kneePain in left kneeDrug induced constipationL lupis term (current) use of opiate analgesic May-2 4 Jonah Craig. [address] [place] [address], [id number], [place]. tel:[phone] Consulting Provider: Lucas Talamantes, [facility] [address], [place] [address], [place], [address]. tel:[phone] ring Provider: Emir Espinal, [address] [place] [address], [id number]. tel:[phone] [facility], [address] [place] [address], [id number] , [place] tel:[phone] [facility] [place] Pain in left kneePain in right knee May- 4 Jonah Craig. [address] [place] [address], [id number], [place]. tel:[phone] [facility], [address] [place] [address], [id number] , [place] tel:[phone] [facility]inne [place] Pain in right kneePain in left knee May- 4 Braeden Murcia. [address] [place] [address], [id number], [place]. tel:[phone] Referring Provider: Kiara Álvarez, [address] [place] [address], [id number]. tel:[phone] [facility], [address] [place] [address], [id number] , [place] tel:[phone] [facility] [place] Pain in left kneePain in right knee Apr-0 4 Mihir Field. [address] [place] [address], [id number], [place]. tel:[phone] [facility], [address] [place] [address], [id number] , [place] tel:[phone] [facility] [place] Low back painOther chronic painArthrodes is status 4 Braeden Murcia. [address] [place] [address], [id number], [place]. tel:[phone] Referring Provider: Kiara Álvarez, [address] [place] [address], [address]. tel:[phone] OFFICE/OUTPAT IENT VISIT, EST [facility], [address] [place] [address], [id number] , [place] tel:[phone] [facility] [place] Back Pain (chief complaint) Postlaminecto my syndrome, not elsewhere classifiedOth er intervertebra l disc degeneration, lumbar regionPain in right kneePain in left kneeDrug induced constipationL lupis term (current) use of opiate analgesicChro tommie pain syndromeEncou nter for therapeutic drug level monitoring 4 Emeka Cordova. [address] [place] [address], [id number], [place]. tel:[phone] Referring Provider: Emir Espinal, [address] [place] [address], [address]. tel:[phone] OFFICE VISIT, EST TELEMEDICINE [facility], [address] [place] [address], [id number] , [place] tel:[phone] [facility] [place] Back Pain (chief complaint) Postlaminecto my syndrome, not elsewhere classifiedOth er intervertebra l disc degeneration, lumbar regionPain in right kneePain in left kneeDrug induced constipationL lupis term (current) use of opiate analgesic 4 Van Overbeke Kiara. [address] [place] [address], [id number], [place]. tel:[phone] Consulting Provider: Lucas Talamantes, [facility] [address], [address], [place], [address]. tel:[phone] OFFICE VISIT, EST TELEMEDICINE [facility], [address] [place] [address], [id number] , [place] tel:[phone] [facility] [place] Back Pain (chief complaint) Postlaminecto my syndrome, not elsewhere classifiedOth er intervertebra l disc degeneration, lumbar regionPain in right kneePain in left kneeDrug induced constipationL lupis term (current) use of opiate analgesic 4 Jonah Overberoberto carlos Kiara. [address] [place] [address], [id number], [place]. tel:[phone] Consulting Provider: [facility] [address], [address], [place], [address]. tel:[phone] ring Provider: Emir Espinal, [address] [place] [address], [address]. tel:[phone] [facility], [address] [place] [address], [id number] , [place] tel:[phone] [facility] [place] No Information 3 Jonah Pastorberoberto carlos Craig. [address] [place] [address], [id number], [place]. tel:[phone] Referring Provider: Emir Espinal, [address] [place] [address], [id number]. tel:[phone] OFFICE/OUTPAT IENT VISIT, EST [facility], [address] [place] [address], [id number] , [place] tel:[phone] [facility] [place] Back Pain (chief complaint) Postlaminecto my syndrome, not elsewhere classifiedOth er intervertebra l disc degeneration, lumbar regionPain in right kneePain in left kneeDrug induced constipationL lupis term (current) use of opiate analgesicEnco unter for therapeutic drug level monitoring 3 Van Overbeke Kiara. [address] [place] [address], [id number], [place]. tel:[phone] Consulting Provider: Lucas Talamantes, [facility] [address], [address], [place], [address]. tel:[phone] ring Provider: Emir Espinal, [address] [place] [address], [id number]. tel:[phone] OFFICE VISIT, EST TELEMEDICINE [facility], [address] [place] [address], [id number] , [place] tel:[phone] [facility] [place] Back Pain (chief complaint) Postlaminecto my syndrome, not elsewhere classifiedOth er intervertebra l disc degeneration, lumbar regionPain in right kneePain in left kneeDrug induced constipationL lupis term (current) use of opiate analgesic 3 Van Overbeke Kiara. [address] [place], [place], [id number], [place]. tel:[phone] Consulting Provider: [facility] [address], [address], [place], [address]. tel:[phone] OFFICE VISIT, EST TELEMEDICINE [facility], [address] [place] [address], [id number] , [place] tel:[phone] [facility] [place] Back Pain (chief complaint) Postlaminecto my syndrome, not elsewhere classifiedOth er intervertebra l disc degeneration, lumbar regionPain in right kneePain in left kneeDrug induced constipationL lupis term (current) use of opiate analgesic 3 Van Overbeke Kiara. [address] [place] [address], [id number], [place]. tel:[phone] Consulting Provider: Lucas Talamantes, [facility] [address], [address], [place], [address]. tel:[phone] ring Provider: Emir Espinal, [address] [place] [address], [id number]. tel:[phone] [facility], [address] [place] [address], [id number] , [place] tel:[phone] [facility] [place] Pain in right kneePain in left knee 3 Braeden Murcia. [address] [place] [address], [id number], [place]. tel:[phone] Referring Provider: Emir Espinal, [address] [place] [address], [id number]. tel:[phone] [facility], [address] [place] [address], [id number] , [place] tel:[phone] [facility] [place] lumbago/kne es (chief complaint) Postlaminecto my syndrome, not elsewhere classifiedOth er intervertebra l disc degeneration, lumbar region 3 Melinda Zavala. [address] [place] [address], [id number], [place]. tel:[phone] Referring Provider: Emir Espinal, [address] [place] [address], [id number]. tel:[phone] [facility], [address] [place] [address], [id number] , [place] tel:[phone] [facility] [place] No Information Sep- 3 Jonah Craig. [address] [place] [address], [id number], [place]. tel:[phone] OFFICE/OUTPAT IENT VISIT, EST [facility], [address] [place] [address], [id number] , [place] [phone] [facility] [place] Back Pain (chief complaint) Postlaminecto my syndrome, not elsewhere classifiedOth er intervertebra l disc degeneration, lumbar regionPain in right kneePain in left kneeDrug induced constipationL lupis term (current) use of opiate analgesicEnco unter for therapeutic drug level monitoring Sep-2 3 Jonah Craig. [address] [place] [address], [id number], [place]. tel:[phone] Consulting Provider: Lucas Talamantes [facility] [address], [place], [address]. tel:[phone] ring Provider: Emir Espinal, [address] [place] [address], [id number]. tel:[phone] OFFICE VISIT, EST TELEMEDICINE [facility], [address] [place] [address], [id number] , [place] tel:[phone] [facility] [place] Back Pain (chief complaint) Postlaminecto my syndrome, not elsewhere classifiedOth er intervertebra l disc degeneration, lumbar regionPain in right kneePain in left kneeDrug induced constipationL lupis term (current) use of opiate analgesic 3 Van Overbeke Kiara. [address] [place] [address], [id number], [place]. tel:[phone] Consulting Provider: Lucas Talamantes, [facility] [address], [address], [place], [address]. tel:[phone] ring Provider: Emir Espinal, [address] [place] [address], [id number]. tel:[phone] OFFICE VISIT, EST TELEMEDICINE [facility], [address] [place] [address], [id number] , [place] tel:[phone] [facility] [place] Back Pain (chief complaint) Postlaminecto my syndrome, not elsewhere classifiedOth er intervertebra l disc degeneration, lumbar regionSacroil iitis, not elsewhere classifiedPai n in right kneePain in left kneeOther muscle spasmChronic migraine without aura, intractable, without status migrainosusMa domitila depressive disorder, single episode, unspecifiedDr ug induced constipationL lupis term (current) use of opiate analgesic 3 Van Overbeke Kiara. [address] [place] [address], [id number], [place]. tel:[phone] Consulting Provider: Lucas Talamantes [facility] [address], [address], [place], [address]. tel:[phone] ring Provider: Emir Espinal, [address] [place] [address], [id number]. tel:[phone] [facility], [address] [place] [address], [id number] , [place] [phone] [facility] [place] No Information 3 Jonah Craig. [address] [place] [address], [id number], [place]. tel:[phone] Referring Provider: Emir Espinal, [address] [place] [address], [id number]. tel:[phone] OFFICE/OUTPAT IENT VISIT, EST [facility], [address] [place] [address], [id number] , [place] [phone] [facility] [place] Back Pain (chief complaint) Major depressive disorder, single episode, unspecifiedCh ronic migraine without aura, intractable, without status migrainosusDr ug induced constipationP ain in right kneePain in left kneeSacroilii tis, not elsewhere classifiedOth er intervertebra l disc degeneration, lumbar regionOther muscle spasmPostlami nectomy syndrome, not elsewhere classifiedLon g term (current) use of opiate analgesicEnco unter for therapeutic drug level monitoring 3 Jonah Craig. [address] [place] [address], [id number], [place]. tel:[phone] Consulting Provider: Lucas Talamantes, [facility] [address], [address], [place], [address]. tel:[phone] ring Provider: Emir Espinal, [address] [place] [address], [id number]. tel:[phone] [facility], [address] [place] [address], [id number] , [place] [phone] [facility] [place] Pain in right kneePain in left knee 3 Braeden Murcia. [address] [place] [address], [id number], [place]. tel:[phone] Referring Provider: Emir Espinal, [address] [place] [address], [id number]. tel:[phone] OFFICE VISIT, [facility] TELEMEDICINE [facility], [address] [place] [address], [id number] , [place] tel:[phone] [facility] [place] Back pain (chief complaint) Major depressive disorder, single episode, unspecifiedCh ronic migraine without aura, intractable, without status migrainosusSa croiliitis, not elsewhere classifiedOth er intervertebra l disc degeneration, lumbar regionOther muscle spasmPostlami nectomy syndrome, not elsewhere classifiedLon g term (current) use of opiate analgesicPain in right kneePain in left kneeDrug induced constipation 3 Jonah Craig. [address] [place] [address], [id number], [place]. tel:[phone] Consulting Provider: Lucas Talamantes [facility] [address], [address], [place], [address]. tel:[phone] ring Provider: Emir Espinal, [address] [place] [address], [id number]. tel:[phone] OFFICE VISIT, [facility] TELEMEDICINE [facility], [address] [place] [address], [id number] , [place] tel:[phone] [facility] [place] Back Pain (chief complaint) Major depressive disorder, single episode, unspecifiedCh ronic migraine without aura, intractable, without status migrainosusSa croiliitis, not elsewhere classifiedOth er intervertebra l disc degeneration, lumbar regionOther muscle spasmPostlami nectomy syndrome, not elsewhere classifiedLon g term (current) use of opiate analgesic 3 Jonah Pastorberoberto carlos Kiara. [address] [place] [address], [id number], [place]. tel:[phone] Consulting Provider: Lucas Talamantes, [facility] [address], [address], [place], [address]. tel:[phone] OFFICE/OUTPAT IENT VISIT, [facility], [address] [place] [address], [id number] , [place] tel:[phone] [facility] [place] back pain (chief complaint) Major depressive disorder, single episode, unspecifiedCh ronic migraine without aura, intractable, without status migrainosusSa croiliitis, not elsewhere classifiedOth er intervertebra l disc degeneration, lumbar regionOther muscle spasmPostlami nectomy syndrome, not elsewhere classifiedLon g term (current) use of opiate analgesicEnco unter for therapeutic drug level monitoring 3 Jonah Craig. [address] [place] [address], [id number], [place]. tel:[phone] Consulting Provider: Lucas Talamantes, [facility] [address], [address], [place], [address]. tel:[phone] ring Provider: Emir Espinal, [address] [place] [address], [id number]. tel:[phone] [facility], [address] [place] [address], [id number] , [place] tel:[phone] [facility] [place] No Information 3 Jonah Craig. [address] [place] [address], [id number], [place]. tel:[phone] OFFICE VISIT, EST TELEMEDICINE [facility], [address] [place] [address], [id number] , [place] tel:[phone] [facility] [place] Back Pain (chief complaint) Major depressive disorder, single episode, unspecifiedCh ronic migraine without aura, intractable, without status migrainosusSa croiliitis, not elsewhere classifiedOth er intervertebra l disc degeneration, lumbar regionPostlam inectomy syndrome, not elsewhere classifiedLon g term (current) use of opiate analgesicOthe r muscle spasm 3 Jonah Craig. [address] [place] [address], [id number], [place]. tel:[phone] Consulting Provider: Lucas Talamantes [facility] [address], [address], [place], [address]. tel:[phone] OFFICE VISIT, EST TELEMEDICINE [facility], [address] [place] [address], [id number] , [place] tel:[phone] [facility] [place] Back Pain (chief complaint) Other intervertebra l disc degeneration, lumbar regionSacroil iitis, not elsewhere classifiedChr onic migraine without aura, intractable, without status migrainosusMa domitila depressive disorder, single episode, unspecifiedOt her muscle spasmPostlami nectomy syndrome, not elsewhere classifiedLon g term (current) use of opiate analgesic 3 Van Overbeke Kiara. [address] [place] [address], [id number], [place]. tel:[phone] Consulting Provider: Lucas Talamantes, [facility] [address], [address], [place], [address]. [phone] OFFICE/OUTPAT IENT VISIT, EST [facility], [address] [place] [address], [id number] , [place] [phone] [facility] [place] Back pain (chief complaint) Major depressive disorder, single episode, unspecifiedCh ronic migraine without aura, intractable, without status migrainosusSa croiliitis, not elsewhere classifiedOth er intervertebra l disc degeneration, lumbar regionOther muscle spasmPostlami nectomy syndrome, not elsewhere classifiedLon g term (current) use of opiate analgesicEnco unter for therapeutic drug level monitoring 2 Jonah Pastorberoberto carlos Kiara. [address] [place] [address], [id number], [place]. tel:[phone] Consulting Provider: Lucas Talamantes, [facility] [address], [address], [place], [address]. [phone] ring Provider: Emir Espinal, [address] [place] [address], [id number]. tel:[phone] [facility], [address] [place] [address], [id number] , [place] [phone] [facility] [place] No Information 2 Jonah Wilmer Craig. [address] [place] [address], [id number], [place]. tel:[phone] Referring Provider: Emir Espinal, [address] [place] [address], [id number]. tel:[phone] OFFICE VISIT, [facility] TELEMEDICINE [facility], [address] [place] [address], [id number] , [place] tel:[phone] [facility] [place] Back pain (chief complaint) Major depressive disorder, single episode, unspecifiedCh ronic migraine without aura, intractable, without status migrainosusSa croiliitis, not elsewhere classifiedOth er intervertebra l disc degeneration, lumbar regionOther muscle spasmPostlami nectomy syndrome, not elsewhere classifiedLon g term (current) use of opiate analgesic Dec- 2 Jonah Craig. [address] [place] [address], [id number], [place]. tel:[phone] Consulting Provider: [facility] [address], [address], [place], [address]. tel:[phone] ring Provider: Emir Espinal, [address] [place] [address], [id number]. tel:[phone] OFFICE VISIT, [facility] TELEMEDICINE [facility], [address] [place] [address], [id number] , [place] tel:[phone] [facility] Back pain (chief complaint) Major depressive disorder, single episode, unspecifiedCh ronic migraine without aura, intractable, without status migrainosusSa croiliitis, not elsewhere classifiedOth er intervertebra l disc degeneration, lumbar regionPostlam inectomy syndrome, not elsewhere classifiedLon g term (current) use of opiate analgesicOthe r muscle spasm Nov- 2 Jonah Guillen Kiara. [address] [place] [address], [id number], [place]. tel:[phone] Consulting Provider: Lucas Talamantes [facility] [address], [address], [place], [address]. tel:[phone] OFFICE/OUTPAT IENT VISIT, [facility], [address] [place] [address], [id number] , [place] [phone] [facility] Back pain (chief complaint) Major depressive disorder, single episode, unspecifiedCh ronic migraine without aura, intractable, without status migrainosusSa croiliitis, not elsewhere classifiedOth er intervertebra l disc degeneration, lumbar regionPostlam inectomy syndrome, not elsewhere classifiedLon g term (current) use of opiate analgesicEnco unter for therapeutic drug level monitoring Sep-2 2 Van Overbeke Kiara. [address] [place] [address], [id number], [place]. tel:[phone] Consulting Provider: Lucas Talamantes [facility] [address], [address], [place], [address]. tel:[phone] ring Provider: Emir Espinal, [address] [place] [address], [id number]. tel:[phone] [facility], [address] [place] [address], [id number] , [place] [phone] [facility] [place] No Information Sep-2 2 Jonah Overbeke Kiara. [address] [place] [address], [id number], [place]. tel:[phone] OFFICE VISIT, EST TELEMEDICINE [facility], [address] [place] [address], [id number] , [place] [phone] [facility] Back Pain (chief complaint) Major depressive disorder, single episode, unspecifiedCh ronic migraine without aura, intractable, without status migrainosusSa croiliitis, not elsewhere classifiedOth er intervertebra l disc degeneration, lumbar regionPostlam inectomy syndrome, not elsewhere classifiedLon g term (current) use of opiate analgesic Sep-0 2 Keri Campos. [address], [place], [place], [id number], [place]. tel:[phone] Consulting Provider: [facility] [address], [address], [place], [address]. tel:[phone] ring Provider: Emir Espinal, [address] [place] [address], [address]. tel:[phone] OFFICE VISIT, EST TELEMEDICINE [facility], [address] [place] [address], [id number] , [place] [phone] [facility] [place] Back pain (chief complaint) Chronic migraine without aura, intractable, without status migrainosusSa croiliitis, not elsewhere classifiedOth er intervertebra l disc degeneration, lumbar regionPostlam inectomy syndrome, not elsewhere classifiedLon g term (current) use of opiate analgesicMajo r depressive disorder, single episode, unspecified 2 Van Overbeke Kiara. [address] [place] [address], [id number], [place]. tel:[phone] Consulting Provider: Lucas Talamantes [facility] [address], [address], [place], [address]. tel:[phone] ring Provider: Emir Espinal, [address] [place] [address], [id number]. tel:[phone] OFFICE VISIT, EST TELEMEDICINE [facility], [address] [place] [address], [id number] , [place] tel:[phone] [facility] [place] back pain (chief complaint) Chronic migraine without aura, intractable, without status migrainosusSa croiliitis, not elsewhere classifiedOth er intervertebra l disc degeneration, lumbar regionPostlam inectomy syndrome, not elsewhere classifiedLon g term (current) use of opiate analgesic 2 Van Overbeke Kiara. [address] [place] [place], [place], [id number], [place]. tel:[phone] Consulting Provider: Lucas Talamantes, [facility] [address], [address], [place], [address]. tel:[phone] [facility], [address] [place] [address], [id number] , [place] [phone] [facility] [place] No Information 2 Van Overbeke Kiara. [address] [place] [address], [id number], [place]. tel:[phone] Referring Provider: Emir Espinal, [address] [place] [address], [address]. tel:[phone] OFFICE/OUTPAT IENT VISIT, [facility], [address] [place] [address], [id number] , [place] tel:[phone] [facility] [place] Back Pain (chief complaint) Chronic migraine without aura, intractable, without status migrainosusSa croiliitis, not elsewhere classifiedOth er intervertebra l disc degeneration, lumbar regionPostlam inectomy syndrome, not elsewhere classifiedLon g term (current) use of opiate analgesicEnco unter for therapeutic drug level monitoring 2 Jonah Overberoberto carlos Kiara. [address] [place] [address], [id number], [place]. tel:[phone] Consulting Provider: Lucas Talamantes, [facility] [address], [address], [place], [address]. tel:[phone] ring Provider: Emir Espinal, [address] [place] [address], [id number]. tel:[phone] OFFICE VISIT, [facility] TELEMEDICINE [facility], [address] [place] [address], [id number] , [place] tel:[phone] [facility] [place] Back Pain (chief complaint) Chronic migraine without aura, intractable, without status migrainosusSa croiliitis, not elsewhere classifiedOth er intervertebra l disc degeneration, lumbar regionPostlam inectomy syndrome, not elsewhere classifiedLon g term (current) use of opiate analgesic 2 Jonah Overbeke Kiara. [address] [place] [address], [id number], [place]. tel:[phone] Consulting Provider: Lucas Talamantes, [facility] [address], [address], [place], [address]. tel:[phone] OFFICE VISIT, [facility] TELEMEDICINE [facility], [address] [place] [address], [id number] , [place] tel:[phone] [facility] [place] Back Pain (chief complaint)H eadache (chief complaint) Chronic migraine without aura, intractable, without status migrainosusSa croiliitis, not elsewhere classifiedOth er intervertebra l disc degeneration, lumbar regionPostlam inectomy syndrome, not elsewhere classifiedLon g term (current) use of opiate analgesic Apr-2 2 Van Overbeke Kiara. [address] [place] [address], [id number], [place]. tel:[phone] Consulting Provider: Lucas Talamantes, [facility] [address], [address], [place], [address]. tel:[phone] [facility], [address] [place] [address], [id number] , tel:[phone] [facility] [place] Chronic migraine without aura, intractable, without status migrainosus Apr-0 2 Ney Quinones. [address] [place] [address], [id number], [place]. tel:[phone] Referring Provider: Emir Espinal, [address] [place] [address], [id number]. tel:[phone] OFFICE VISIT, EST TELEMEDICINE [facility], [address] [place] [address], [id number] , [place] tel:[phone] [facility] [place] Back Pain (chief complaint) Chronic migraine without aura, intractable, without status migrainosusOt her intervertebra l disc degeneration, lumbar regionLong term (current) use of opiate analgesicPost laminectomy syndrome, not elsewhere classifiedSac roiliitis, not elsewhere classified Mar- 2 Jonah Overbeke Kiara. [address] [place] [address], [id number], [place]. tel:[phone] Consulting Provider: Lucas Talmaantes, [facility] [address], [address], [place], [address]. tel:[phone] ring Provider: Emir Espinal, [address] [place] [address], [address]. tel:[phone] [facility], [address] [place] [address], [id number] , [place] tel:[phone] [facility] [place] No Information 2 Jonah Craig. [address] [place] [address], [id number], [place]. tel:[phone] OFFICE/OUTPAT IENT VISIT, EST [facility], [address] [place] [address], [id number] , [place] tel:[phone] [facility] [place] Back Pain (chief complaint) Other intervertebra l disc degeneration, lumbar regionLong term (current) use of opiate analgesicPost laminectomy syndrome, not elsewhere classifiedSac roiliitis, not elsewhere classifiedEnc ounter for therapeutic drug level monitoringEnc ounter for screening for other disorderChron ic migraine without aura, intractable, without status migrainosus 2 Jonah Craig. [address] [place] [address], [id number], [place]. tel:[phone] Consulting Provider: Lucas Talamantes, [facility] [address], [address], [place], [address]. tel:[phone] ring Provider: Emir Espinal, [address] [place] [address], [address]. tel:[phone] OFFICE VISIT, EST TELEMEDICINE [facility], [address] [place] [address], [id number] , [place] tel:[phone] [facility] [place] Back Pain (chief complaint) Other intervertebra l disc degeneration, lumbar regionLong term (current) use of opiate analgesicPost laminectomy syndrome, not elsewhere classifiedSac roiliitis, not elsewhere classified 2 Jonah Craig. [address] [place] [address], [id number], [place]. tel:[phone] Consulting Provider: Lucas Talamantes, [facility] [address], [address], [place], [address]. tel:[phone] OFFICE VISIT, EST TELEMEDICINE [facility], [address] [place] [address], [id number] , [place] [phone] [facility] [place] Back Pain (chief complaint) Other intervertebra l disc degeneration, lumbar regionLong term (current) use of opiate analgesicPost laminectomy syndrome, not elsewhere classifiedSac roiliitis, not elsewhere classified 1 Jonah Overbeke Kiara. [address] [place] [address], [id number], [place]. tel:[phone] Consulting Provider: Lucas Talamantes, [facility] [address], [address], [place], [address]. tel:[phone] OFFICE VISIT, EST TELEMEDICINE [facility], [address] [place] [address], [id number] , [place] [phone] [facility] [place] Back Pain (chief complaint) Other intervertebra l disc degeneration, lumbar regionLong term (current) use of opiate analgesicPost laminectomy syndrome, not elsewhere classifiedSac roiliitis, not elsewhere classified 1 Jonah Pastorberoberto carlos Kiara. [address] [place] [address], [id number], [place]. tel:[phone] Consulting Provider: Lucas Talamantes, [facility] [address], [address], [place], [address]. tel:[phone] ring Provider: Emir Espinal, [address] [place] [address], [address]. tel:[phone] OFFICE VISIT, EST TELEMEDICINE [facility], [address] [place] [address], [id number] , [place] [phone] [facility] [place] Back Pain (chief complaint) Other intervertebra l disc degeneration, lumbar regionLong term (current) use of opiate analgesicPost laminectomy syndrome, not elsewhere classifiedSac roiliitis, not elsewhere classified 1 Van Overbeke Kiara. [address] [place], [place], [id number], [place]. tel:[phone] Consulting Provider: Lucas Talamantes, [facility] [address], [address], [place], [address]. tel:[phone] OFFICE/OUTPAT IENT VISIT, EST [facility], [address] [place] [address], [id number] , [place] tel:[phone] [facility] Back Pain (chief complaint) Other intervertebra l disc degeneration, lumbar regionLong term (current) use of opiate analgesicPost laminectomy syndrome, not elsewhere classifiedSac roiliitis, not elsewhere classifiedEnc ounter for therapeutic drug level monitoring Oct- 1 Jonah Craig. [address] [place] [place], [place], [id number], [place]. tel:[phone] Consulting Provider: Lucas Talamantes, [facility] [address], [address], [place], [address]. tel:[phone] ring Provider: Emir Espinal, [address] [place] [address], [id number]. tel:[phone] [facility], [address] [place], [place] [address], [id number] , [place] tel:[phone] [facility] Encounter for therapeutic drug level monitoringLon g term (current) use of opiate analgesic Oct- 1 Jonah Craig. [address] [place], [place], [id number], [place]. tel:[phone] Referring Provider: Emir Espinal, [address] [place] [address], [address]. tel:[phone] OFFICE VISIT, EST TELEMEDICINE [facility], [address] [place] [address], [id number] , [place] tel:[phone] [facility] Back Pain (chief complaint) penitentiary (current) use of opiate analgesicPost laminectomy syndrome, not elsewhere classifiedOth er intervertebra l disc degeneration, lumbar region 1 Ney Quinones. [address] [place], [place], [id number], [place]. tel:[phone] Consulting Provider: Lucas Talamantes, [facility] [address] Prof [address] [address], [place], [address]. tel:[phone] ring Provider: Emir Espinal, [address] [place] [address], [address]. tel:[phone] OFFICE VISIT, EST TELEMEDICINE [facility], [address] [place] [address], [id number] , [place] tel:[phone] [facility] Back Pain (chief complaint) penitentiary (current) use of opiate analgesicPost laminectomy syndrome, not elsewhere classifiedSac roiliitis, not elsewhere classifiedOth er intervertebra l disc degeneration, lumbosacral region Aug- 1 Jonah Craig. [address] [place] [address], [id number], [place]. tel:[phone] Consulting Provider: Lucas Talamantes, [facility] [address] Carmel Mercado [address] [address], [place], [address]. tel:[phone] ring Provider: Emir Espinal, [address] [place] [address], [address]. tel:[phone] [facility], [address] [place] [address], [id number] , [place] tel:[phone] [facility] Encounter for therapeutic drug level monitoringLon g term (current) use of opiate analgesic Jul- 1 Jonah Craig. [address] [place] [address], [id number], [place]. tel:[phone] Referring Provider: Emir Espinal, [address] [place] [address], [address]. tel:[phone] OFFICE/OUTPAT IENT VISIT, EST [facility], [address] [place] [address], [id number] , [place] tel:[phone] [facility] Back Pain (chief complaint) penitentiary (current) use of opiate analgesicPost laminectomy syndrome, not elsewhere classifiedSac roiliitis, not elsewhere classifiedOth er intervertebra l disc degeneration, [facility]Gen[facility] er for therapeutic drug level monitoring 1 Jonah Craig. [address] [place] [address], [id number], [place]. tel:[phone] Consulting Provider: Lucas Talamantes, [address] Prof [address] [address], [place], [address]. tel:[phone] ring Provider: Emir Espinal, [address] [place] [address], [address]. tel:[phone] OFFICE VISIT, EST TELEMEDICINE [facility], [address] [place] [address], [id number] , [place] tel:[phone] [facility] [place] Back Pain (chief complaint) sound printer (current) use of opiate analgesicPost laminectomy syndrome, not elsewhere classifiedSac roiliitis, not elsewhere classifiedOth er intervertebra l disc degeneration, lumbosacral region 1 Jonah Craig. [address] [place] [address], [id number], [place]. tel:[phone] Consulting Provider: Lucas Talamantes[address] Carmel Mercado [address] [place] [address], [place], [address]. tel:[phone] ring Provider: Emir Espinal, [address] [place] [address], [address]. tel:[phone] OFFICE VISIT, EST TELEMEDICINE [facility], [address] [place] [address], [id number] , [place] tel:[phone] [facility] Back Pain (chief complaint) Postlaminecto my syndrome, not elsewhere classifiedSac roiliitis, not elsewhere classifiedOth er intervertebra l disc degeneration, lumbosacral regionLong term (current) use of opiate analgesic May- 1 Jonah Craig. [address] [place] [address], [id number], [place]. tel:[phone] Consulting Provider: Lucas Talamantes, [address] Marlon [facility], [place], [address]. tel:[phone] ring Provider: Emir Espinal, [address] [place] [address], [address]. tel:[phone] OFFICE VISIT, EST TELEMEDICINE [facility], [address] [place] [address], [id number] , [place] tel:[phone] [facility] Back Pain (chief complaint) Postlaminecto my syndrome, not elsewhere classifiedSac roiliitis, not elsewhere classifiedOth er intervertebra l disc degeneration, lumbosacral regionLong term (current) use of opiate analgesic Apr- 1 Van Darbybeke Kiara. [address] [place] [address], [id number], [place]. tel:[phone] Consulting Provider: Lucas Talamantes, [address] Prof Mercado [address] [place] [address], [place], [address]. tel:[phone] ring Provider: Emir Espinal, [address] [place] [address], [address]. tel:[phone] OFFICE VISIT, EST TELEMEDICINE [facility], [address] [place] [address], [id number] , [place] tel:[phone] [facility] [place] Back Pain (chief complaint) Postlaminecto my syndrome, not elsewhere classifiedSac roiliitis, not elsewhere classifiedOth er intervertebra l disc degeneration, lumbosacral regionLong term (current) use of opiate analgesic Mar- 1 Jonah Overberoberto carlos Craig. [address] [place] [address], [id number], [place]. tel:[phone] Consulting Provider: Lucsa Talamantes, [address] Prof Mercado [address] [place] [address], [place], [address]. tel:[phone] ring Provider: Emir Espinal, [address] [place] [address], [address]. tel:[phone] OFFICE VISIT, EST TELEMEDICINE [facility], [address] [place] [address], [id number] , [place] tel:[phone] [facility] [place] Back Pain (chief complaint) sound printer (current) use of opiate analgesicPost laminectomy syndrome, not elsewhere classifiedSac roiliitis, not elsewhere classifiedOth er intervertebra l disc degeneration, lumbosacral region 1 Van Overbeke Kiara. [address] [place] [address], [id number], [place]. tel:[phone] Consulting Provider: Lucas Talamantes [address] Prof [address] [address], [place], [address]. tel:[phone] ring Provider: Emir Espinal, [address] [place] [address], [address]. tel:[phone] OFFICE VISIT, EST TELEMEDICINE [facility], [address] [place] [address], [id number] , [place] tel:[phone] [facility] Back Pain (chief complaint) penitentiary (current) use of opiate analgesicPost laminectomy syndrome, not elsewhere classifiedSac roiliitis, not elsewhere classifiedOth er intervertebra l disc degeneration, lumbosacral region 0 Van Overbeke Kiara. [address] [place] [address], [id number], [place]. tel:[phone] Consulting Provider: Lucas Talamantes, [facility] [address] Prof Mercado [address] Marlon [facility], [place], [address]. tel:[phone] ring Provider: Emir Espinal, [address] [place] [address], [address]. tel:[phone] OFFICE VISIT, EST TELEMEDICINE [facility], [address] [place] [address], [id number] , [place] tel:[phone] [facility] Back Pain (chief complaint) sound printer (current) use of opiate analgesicPost laminectomy syndrome, not elsewhere classifiedSac roiliitis, not elsewhere classifiedOth er intervertebra l disc degeneration, lumbosacral region Dec-0 0 Van Overbeke Kiara. [address] [place] [address], [id number], [place]. tel:[phone] Referring Provider: Emir Espinal, [address] [place] [address], [id number]. tel:[phone] OFFICE VISIT, [facility] TELEMEDICINE [facility], [address] [place] [address], [id number] , [place] tel:[phone] [facility] [place] Back Pain (chief complaint) penitentiary (current) use of opiate analgesicPost laminectomy syndrome, not elsewhere classifiedSac roiliitis, not elsewhere classifiedOth er intervertebra l disc degeneration, lumbosacral region Oct- 0 Van Overbeke Kiara. [address] [place] [address], [id number], [place]. tel:[phone] Referring Provider: Emir Espinal, [address] [place] [address], [id number]. tel:[phone] OFFICE VISIT, [facility], [address] [place] [address], [id number] , [place] [phone] [facility] Back Pain (chief complaint) penitentiary (current) use of opiate analgesicPost laminectomy syndrome, not elsewhere classifiedSac roiliitis, not elsewhere classifiedOth er intervertebra l disc degeneration, lumbosacral region Sep-2 0 Van Overbeke Kiara. [address] [place] [address], [id number], [place]. tel:[phone] Referring Provider: Emir Espinal, [address] [place] [address], [address]. tel:[phone] OFFICE/OUTPAT IENT VISIT, [facility], [address] [place] [address], [id number] , [place] [phone] [facility] [place] Back Pain (chief complaint) penitentiary (current) use of opiate analgesicPost laminectomy syndrome, not elsewhere classifiedSac roiliitis, not elsewhere classifiedOth er intervertebra l disc degeneration, lumbosacral region 0 Jonah Craig. [address] [place] [address], [id number], [place]. tel:[phone] Referring Provider: Emir Espinal, [address] [place] [address], [address]. tel:[phone] OFFICE VISIT, EST TELEMEDICINE [facility], [address] [place] [address], [id number] , [place] tel:[phone] [facility] Back Pain (chief complaint) penitentiary (current) use of opiate analgesicPost laminectomy syndrome, not elsewhere classifiedSac roiliitis, not elsewhere classifiedOth er intervertebra l disc degeneration, lumbosacral region 0 Jonah Craig. [address] [place] [address], [id number], [place]. tel:[phone] Consulting Provider: Lucas Talamantes [facility], [facility] [place] [address] [facility] [address] [address], [place], [address]. tel:[phone] ring Provider: Emir Espinal, [address] [place] [address], [address]. tel:[phone] OFFICE VISIT, EST [facility], [address] [place] [address], [id number] , [place] tel:[phone] [facility] Back Pain (chief complaint) sound printer (current) use of opiate analgesicPost laminectomy syndrome, not elsewhere classifiedSac roiliitis, not elsewhere classifiedOth er intervertebra l disc degeneration, lumbosacral region 0 Jonah Craig. [address] [place] [address], [id number], [place]. tel:[phone] Referring Provider: Emir Espinal, [address] [place] [address], [address]. tel:[phone] OFFICE VISIT, EST TELEMEDICINE [facility], [address] [place] [address], [id number] , [place] tel:[phone] [facility] Back Pain (chief complaint) sound printer (current) use of opiate analgesicPost laminectomy syndrome, not elsewhere classifiedSac roiliitis, not elsewhere classifiedOth er intervertebra l disc degeneration, lumbosacral region May-2 0-202 0 Jonah Craig. [address] [place] [address], [id number], [place]. tel:[phone] Consulting Provider: Lucas AU, [address] Marlon [facility], [place], [address]. tel:[phone] ring Provider: Emir Espinal, [address] [place] [address], [address]. tel:[phone] OFFICE VISIT, EST TELEMEDICINE [facility], [address] [place] [address], [id number] , [place] tel:[phone] [facility] Back Pain (chief complaint) penitentiary (current) use of opiate analgesicPost laminectomy syndrome, not elsewhere classifiedSac roiliitis, not elsewhere classifiedOth er intervertebra l disc degeneration, lumbosacral region Apr-2 2-202 0 Jonah Craig. [address] [place] [address], [id number], [place]. tel:[phone] Consulting Provider: Lucas AU, [address] [place] [address], [place], [address]. tel:[phone] ring Provider: Emir Espinal, [address] [place] [address], [address]. tel:[phone] OFFICE VISIT, EST TELEMEDICINE [facility], [address] [place] [address], [id number] , [place] tel:[phone] [facility] Back Pain (chief complaint) sound printer (current) use of opiate analgesicPost laminectomy syndrome, not elsewhere classifiedSac roiliitis, not elsewhere classifiedOth er intervertebra l disc degeneration, lumbosacral region Mar-2 6-202 0 Jonah Overbeke Kiara. [address] [place], [place], [id number], [place]. tel:[phone] Consulting Provider: Lucas AU, [facility] [address] Prof Mercado [facility] [address] [address], [place], [address]. tel:[phone] [facility] Provider: Emir Espinal, [address] [place] [address], [address]. tel:[phone] OFFICE/OUTPAT IENT VISIT, [facility], [address] [place] [address], [id number] , [place] tel:[phone] [facility] [place] Back Pain (chief complaint) penitentiary (current) use of opiate analgesicEnco unter for therapeutic drug level monitoringPos tlaminectomy syndrome, not elsewhere classifiedSac roiliitis, not elsewhere classifiedOth er intervertebra l disc degeneration, lumbosacral region 0 Jonah Overbeke Kiara. [address] [place], [place], [id number], [place]. tel:[phone] Consulting Provider: Lucas AU, [facility] [address] Prof Mercado [facility] [address] [address], [place], [address]. tel:[phone] [facility] Provider: Emir Espinal, [address] [place] [address], [address]. tel:[phone] OFFICE/OUTPAT IENT VISIT, [facility], [address] [place] [address], [id number] , [place] tel:[phone] [facility] [place] Back Pain (chief complaint) penitentiary (current) use of opiate analgesicPost laminectomy syndrome, not elsewhere classifiedSac roiliitis, not elsewhere classifiedOth er intervertebra l disc degeneration, lumbosacral region 0 Van Overbeke Kiara. [address] [place] [address], [id number], [place]. tel:[phone] Consulting Provider: Lucas AU, [address], [place], [address]. tel:[phone] ring Provider: Emir Espinal, [address] [place] [address], [address]. tel:[phone] OFFICE/OUTPAT IENT VISIT, [facility], [address] [place] [address], [id number] , [place] [phone] [facility] [place] Back Pain (chief complaint) penitentiary (current) use of opiate analgesicSacr oiliitis, not elsewhere classifiedOth er intervertebra l disc degeneration, lumbosacral regionPostlam inectomy syndrome, not elsewhere classified 0 9 Jonah Craig. [address] [place] [address], [id number], [place]. tel:[phone] Consulting Provider: Lucas AU, [address] [place] [address], [place], [address]. tel:[phone] ring Provider: Emir Espinal, [address] [place] [address], [address]. tel:[phone] OFFICE/OUTPAT IENT VISIT, [facility], [address] [place] [address], [id number] , [place] tel:[phone] [facility] Back Pain (chief complaint) penitentiary (current) use of opiate analgesicLow back painSacroilii tis, not elsewhere classifiedPos tlaminectomy syndrome, not elsewhere classifiedOth er intervertebra l disc degeneration, lumbosacral region 9 Jonah Craig. [address] [place] [address], [id number], [place]. tel:[phone] Consulting Provider: Lucas AU, [address], [place], [address]. tel:[phone] ring Provider: Emir Espinal, [address] [place], [address]. tel:[phone] OFFICE/OUTPAT IENT VISIT, [facility], [address] [place] [address], [id number] , [place] tel:[phone] [facility] [place] Back Pain (chief complaint) penitentiary (current) use of opiate analgesicLow back painSacroilii tis, not elsewhere classifiedOth er intervertebra l disc degeneration, lumbosacral regionPostlam inectomy syndrome, not elsewhere classified Van Overberoberto carlos Kiara. [address] [place], [place], [id number], [place]. tel:[phone] Consulting Provider: Lucas AU, [address] Prof Mercado [address], [address]. tel:[phone] ring Provider: Emir Espinal, [address] [place] [address], [address]. tel:[phone] OFFICE/OUTPAT IENT VISIT, [facility], [address] [place] [address], [id number] , [place] tel:[phone] [facility] Back Pain (chief complaint) Postlaminecto my syndrome, not elsewhere classifiedOth er intervertebra l disc degeneration, lumbosacral regionSacroil iitis, not elsewhere classifiedLow back painLong term (current) use of opiate analgesicEnco unter for therapeutic drug level monitoring Jonah Overbeke Kiara. [address] [place] [address], [id number], [place]. tel:[phone] Consulting Provider: Lucas AU, [address] Prof Merc[address], [address]. tel:[phone] ring Provider: Emir Espinal, [address] [place], [address]. tel:[phone] OFFICE/OUTPAT IENT VISIT, EST [facility], [address] [place], [place], [id number] , [place] tel:[phone] [facility] [place] Back Pain (chief complaint) Postlaminecto my syndrome, not elsewhere classifiedOth er intervertebra l disc degeneration, lumbosacral regionSacroil iitis, not elsewhere classifiedLow back painLong term (current) use of opiate analgesic Aug-3 Van Overbeke Kiara. [address] [place] [address], [id number], [place]. [phone] Consulting Provider: Lucas AU, [address] Prof Merc[address] [place] [address], [place], [address]. [phone] ring Provider: Emir Espinal, [address] [place] [address], [address]. [phone] OFFICE/OUTPAT IENT VISIT, [facility], [address] [place] [address], [id number] , [place] tel:[phone] [facility] [place] Back Pain (chief complaint) Postlaminecto my syndrome, not elsewhere classifiedOth er intervertebra l disc degeneration, lumbosacral regionSacroil iitis, not elsewhere classifiedLow back painLong term (current) use of opiate analgesic Aug-0 Van Overbeke Kiara. [address] [place] [address], [id number], [place]. [phone] Consulting Provider: Lucas AU, [address] Prof Mercado [address] [place] [address], [place], [address]. [phone] ring Provider: Emir Espinal, [address] [place] [address], [address]. [phone] OFFICE/OUTPAT IENT VISIT, [facility], [address] [place] [address], [id number] , [place] tel:[phone] [facility] [place] Back Pain (chief complaint) Postlaminecto my syndrome, not elsewhere classifiedOth er intervertebra l disc degeneration, lumbosacral regionSacroil iitis, not elsewhere classifiedLow back painLong term (current) use of opiate analgesic Jonah Craig. [address] [place] [address], [id number], [place]. tel:[phone] Consulting Provider: Lucas AU, [facility] [address], [address]. tel:[phone] ring Provider: Emir Espinal, [address] [place] [address], [address]. tel:[phone] OFFICE/OUTPAT IENT VISIT, [facility], [address] [place] [address], [id number] , tel:[phone] [facility] [place] Back Pain (chief complaint) Postlaminecto my syndrome, not elsewhere classifiedOth er intervertebra l disc degeneration, lumbosacral regionSacroil iitis, not elsewhere classifiedLow back painLong term (current) use of opiate analgesicEnco unter for therapeutic drug level monitoring Jonah Craig. [address] [place] [address], [id number], [place]. tel:[phone] Consulting Provider: Lucas AU, [address] [address], [place], [address]. tel:[phone] ring Provider: Emir Espinal, [address] [place] [address], [address]. tel:[phone] OFFICE/OUTPAT IENT VISIT, EST [facility], [address] [place] [address], [id number] , [place] tel:[phone] [facility] [place] Back Pain (chief complaint) Postlaminecto my syndrome, not elsewhere classifiedOth er intervertebra l disc degeneration, lumbosacral regionSacroil iitis, not elsewhere classifiedLow back painLong term (current) use of opiate analgesic Miguel-0 2201 9 Van Overbeke Kiara. [address] [place] [address], [id number], [place]. tel:[phone] Consulting Provider: Lucas AU, [address] [facility] [address] [place] [address], [place], [address]. tel:[phone] ring Provider: Emir Espinal, [address] [place] [address], [address]. tel:[phone] OFFICE/OUTPAT IENT VISIT, [facility], [address] [place] [address], [id number] , [place] tel:[phone] [facility] Back Pain (chief complaint) Sacroiliitis, not elsewhere classifiedPos tlaminectomy syndrome, not elsewhere classifiedOth er intervertebra l disc degeneration, lumbosacral regionLow back painLong term (current) use of opiate analgesic Dec-0 3 8 Van Overbeke Kiara. [address] [place] [address], [id number], [place]. tel:[phone] Consulting Provider: Lucas AU, [address] [place] [address], [place], [address]. tel:[phone] ring Provider: Emir Espinal, [address] [place] [address], [address]. tel:[phone] OFFICE/OUTPAT IENT VISIT, EST [facility], [address] [place] [address], [id number] , [place] tel:[phone] [facility] [place] Back Pain (chief complaint) Sacroiliitis, not elsewhere classifiedPos tlaminectomy syndrome, not elsewhere classifiedOth er intervertebra l disc degeneration, lumbosacral regionLow back pain Nov-0 1201 8 Van Overbeke Kiara. [address] [place] [address], [id number], [place]. tel:[phone] Consulting Provider: Lucas AU, [address]lon [facility], [place], [address]. tel:[phone] ring Provider: Emir Espinal, [address] [place] [address], [address]. tel:[phone] OFFICE/OUTPAT IENT VISIT, [facility], [address] [place] [address], [id number] , [place] tel:[phone] [facility] Back Pain (chief complaint) Sacroiliitis, not elsewhere classifiedPos tlaminectomy syndrome, not elsewhere classifiedOth er intervertebra l disc degeneration, lumbosacral regionLow back pain Nov-0 1 8 Van Overbeke Kiara. [address] [place] [address], [id number], [place]. tel:[phone] Consulting Provider: Lucas AU, [address] [place] [address], [place], [address]. tel:[phone] Provider: Emir Espinal, [address] [place] [address], [address]. tel:[phone] OFFICE/OUTPAT IENT VISIT, [facility], [address] [place] [address], [id number] , [place] tel:[phone] [facility] [place] Back Pain (chief complaint) Sacroiliitis, not elsewhere classifiedPos tlaminectomy syndrome, not elsewhere classifiedOth er intervertebra l disc degeneration, lumbosacral regionLow back pain Sep-0 8 Jonah Overberoberto carlos Kiara. [address] [place] [address], [id number], [place]. tel:[phone] Consulting Provider: Lucas AU, [address] [place]lon [facility], [place], [address]. tel:[phone] ring Provider: Emir Espinal, [address] [place] [address], [address]. tel:[phone] OFFICE/OUTPAT IENT VISIT, EST [facility], [address] [place] [address], [id number] , [place] [phone] [facility] [place] Back Pain (chief complaint) Sacroiliitis, not elsewhere classifiedPos tlaminectomy syndrome, not elsewhere classifiedLow back painOther intervertebra l disc degeneration, lumbosacral region Clifford-0 6-201 8 Van Overbeke Kiara. [address] [place] [address], [id number], [place]. tel:[phone] Consulting Provider: Lucas AU, [address] [address], [place], [address]. tel:[phone] ring Provider: Emir Espinal, [address] [place] [address], [address]. tel:[phone] OFFICE/OUTPAT IENT VISIT, [facility], [address] [place] [address], [id number] , [place] [phone] [facility] [place] Back Pain (chief complaint) Sacroiliitis, not elsewhere classifiedPos tlaminectomy syndrome, not elsewhere classifiedLow back painOther intervertebra l disc degeneration, lumbosacral region Apr-0 6-201 8 Van Overbeke Kiara. [address] [place] [address], [id number], [place]. tel:[phone] Consulting Provider: Lucas AU, [facility] [address] [place] [address], [place], [address]. tel:[phone] ring Provider: Emir Espinal, [address] [place] [address], [address]. tel:[phone] OFFICE/OUTPAT IENT VISIT, [facility], [address] [place] [address], [id number] , [place] tel:[phone] [facility] [place] Back Pain (chief complaint) Postlaminecto my syndrome, not elsewhere classifiedLow back painSacroilii tis, not elsewhere classified Fe Jonah Overbeke Kiara. [address] [place] [address], [id number], [place]. tel:[phone] Consulting Provider: Lucas AU, [facility] [place] 675 [facility] 675 [facility] [address], [place], [address]. tel:[phone] ring Provider: Emir Espinal, [address] [place] [address], [address]. tel:[phone] OFFICE/OUTPAT IENT VISIT, [facility], [address] [place] [address], [id number] , [place] [phone] [facility] [place] Back Pain (chief complaint) Postlaminecto my syndrome, not elsewhere classifiedSac roiliitis, not elsewhere classifiedOth er intervertebra l disc degeneration, lumbosacral region Jonah Craig. [address] [place] [address], [id number], [place]. tel:[phone] Referring Provider: Emir Espinal, [address] [place] [address], [address]. tel:[phone] OFFICE/OUTPAT IENT VISIT, [facility], [address] [place] [address], [id number] , [place] [phone] [facility] [place] Back Pain (chief complaint) Postlaminecto my syndrome, not elsewhere classifiedSac roiliitis, not elsewhere classifiedOth er intervertebra l disc degeneration, lumbosacral region 7 Jonah Overberoberto carlos Huertase. [address] [place] [address], [id number], [place]. tel:[phone] Referring Provider: Emir Espinal, [address] [place] [address], [address]. tel:[phone] OFFICE/OUTPAT IENT VISIT, [facility], [address] [place] [address], [id number] , [place] tel:[phone] [facility] [place] Back Pain (chief complaint) Postlaminecto my syndrome, not elsewhere classifiedSac roiliitis, not elsewhere classifiedOth er intervertebra l disc degeneration, lumbosacral region Jonah Craig. [address] [place] [address], [id number], [place]. tel:[phone] Consulting Provider: Lucas AU, [facility] [place] 675 [facility] 675 [facility] [address], [place], [address]. tel:[phone] ring Provider: Emir Espinal, [address] [place] [address], [address]. tel:[phone] OFFICE/OUTPAT IENT VISIT, EST [facility], [address] [place] [address], [id number] , [place] tel:[phone] [facility] [place] Back Pain (chief complaint) Postlaminecto my syndrome, not elsewhere classifiedOth er intervertebra l disc degeneration, lumbosacral regionSacroil iitis, not elsewhere classifiedLon g term (current) use of opiate analgesic Jonah Craig. [address] [place] [address], [id number], [place]. tel:[phone] Referring Provider: Emir Espinal, [address] [place] [address], [address]. tel:[phone] OFFICE/OUTPAT IENT VISIT, EST [facility], [address] [place] [address], [id number] , [place] tel:[phone] [facility] [place] Back Pain (chief complaint) Postlaminecto my syndrome, not elsewhere classifiedOth er intervertebra l disc degeneration, lumbosacral regionSacroil iitis, not elsewhere classified 7 Ney Quinones. [address] [place] [address], [id number], [place]. tel:[phone] Consulting Provider: Lucas AU, [facility] [address], [place], [address]. tel:[phone] ring Provider: Emir Espinal, [address] [place] [address], [address]. tel:[phone] OFFICE/OUTPAT IENT VISIT, EST [facility], [address] [place] [address], [id number] , [place] tel:[phone] [facility] [place] Back Pain (chief complaint) Postlaminecto my syndrome, not elsewhere classifiedOth er intervertebra l disc degeneration, lumbosacral region 7 Jonah Craig. [address] [place] [address], [id number], [place]. tel:[phone] Referring Provider: Emir Espinal, [address] [place] [address], [address]. tel:[phone] OFFICE/OUTPAT IENT VISIT, [facility], [address] [place] [address], [id number] , [place] [phone] [facility] [place] Back Pain (chief complaint) Postlaminecto my syndrome, not elsewhere classifiedOth er intervertebra l disc degeneration, lumbosacral region 7 Ney Quinones. [address] [place] [address], [id number], [place]. tel:[phone] Consulting Provider: Lucas AU, [facility] [address] [facility], [place], [address]. tel:[phone] ring Provider: Emir Espinal, [address] [place] [address], [address]. tel:[phone] OFFICE/OUTPAT IENT VISIT, [facility], [address] [place] [address], [id number] , [place] tel:[phone] [facility] [place] low back pain (chief complaint) Postlaminecto my syndrome, not elsewhere classifiedLow back pain Ney Stacie. [address] [place] [address], [id number], [place]. tel:[phone] Consulting Provider: Lucas AU, [facility] [address], [place], [address]. tel:[phone] ring Provider: Emir Espinal, [address] [place] [address], [address]. tel:[phone] OFFICE/OUTPAT IENT VISIT, [facility], [address] [place] [address], [id number] , [place] tel:[phone] [facility] low back pain (chief complaint) Low back painPostlamin ectomy syndrome, not elsewhere classified Ney Stacie. [address] [place] [address], [id number], [place]. tel:[phone] Referring Provider: Emir Espinal, [address] [place] [address], [address]. tel:[phone] OFFICE/OUTPAT IENT VISIT, [facility], [address] [place] [address], [id number] , [place] tel:[phone] [facility] low back pain (chief complaint) Low back painPostlamin ectomy syndrome, not elsewhere classified Ney Stacie. [address] [place] [address], [id number], [place]. tel:[phone] Consulting Provider: Lucas AU, [address], [place], [address]. tel:[phone] ring Provider: Emir Espinal, [address] [place] [address], [address]. tel:[phone] OFFICE/OUTPAT IENT VISIT, [facility], [address] [place] [address], [id number] , [place] tel:[phone] [facility] [place] Back Pain (chief complaint) Postlaminecto my syndrome, not elsewhere classified Ney Stacie. [address] [place], [place], [id number], [place]. tel:[phone] Consulting Provider: Lucas AU, [address] [place] [address], [place], [address]. tel:[phone] ring Provider: Emir Espinal, [address] [place] [address], [address]. tel:[phone] OFFICE/OUTPAT IENT VISIT, [facility], [address] [place] [address], [id number] , [place] [phone] [facility] [place] Back Pain (chief complaint) Postlaminecto my syndrome, not elsewhere classifiedLon g term (current) use of opiate analgesic Ever Medina. [address] [place], [id number], [place]. tel:[phone] Consulting Provider: Lucas AU, [address] [place] [address], [place], [address]. tel:[phone] ring Provider: Emir Espinal, [address] [place] [address], [address]. tel:[phone] OFFICE/OUTPAT IENT VISIT, EST [facility], [address] [place], [place], [id number] , [place] [phone] [facility] [place] low back pain (chief complaint) Low back painPostlamin ectomy syndrome, not elsewhere classified Ney Quinones. [address] [place], [place], [id number], [place]. tel:[phone] Consulting Provider: Lucas AU, [address], [place], [address]. tel:[phone] Provider: Emir Espinal, [address] [place] [address], [address]. tel:[phone] OFFICE/OUTPAT IENT VISIT, EST [facility], [address] [place], [place], [id number] , [place] [phone] [facility] [place] low back pain (chief complaint) Low back painPostlamin ectomy syndrome, not elsewhere classified 6 Ney Stacie. [address] [place], [place], [id number], [place]. tel:[phone] Consulting Provider: Lucas AU, [address] [place] [address], [place], [address]. [phone] ring Provider: Emir Espinal, [address] [place] [address], [address]. [phone] OFFICE/OUTPAT IENT VISIT, [facility], [address] [place] [address], [id number] , [place] [phone] [facility] ([facility]) Low back painPostlamin ectomy syndrome, not elsewhere classified 6 Ney Stacie. [address] [place], [place], [id number], [place]. tel:[phone] Consulting Provider: Lucas AU, [address] [place] [address], [place], [address]. tel:[phone] ring Provider: Emir Espinal, [address] [place] [address], [address]. tel:[phone] OFFICE/OUTPAT IENT VISIT, [facility], [address] [place], [place], [id number] , [place] [phone] [facility] [place] low back pain (chief complaint) Other cervical disc degeneration, high cervical regionLow back painPostlamin ectomy syndrome, not elsewhere classified 6 Ney Quinones. [address] [place] [address], [id number], [place]. tel:[phone] Consulting Provider: Lucas AU, [address] Prof Jess Humphreys [facility] [address], [place], [address]. tel:[phone] ring Provider: Emir Espinal, [address] [place] [address], [address]. tel:[phone] OFFICE/OUTPAT IENT VISIT, [facility], [address] [place] [address], [id number] , [place] tel:[phone] [facility] [place] Neck pain (chief complaint)l ow back pain (chief complaint) Other cervical disc degeneration, high cervical regionLow back painPostlamin ectomy syndrome, not elsewhere classified 6 Ney Stacie. [address] [place] [address], [id number], [place]. tel:[phone] Consulting Provider: Lucas AU, [address] Jess Humphreys [place] [address], [place], [address]. tel:[phone] ring Provider: Emir Espinal, [address] [place] [address], [address]. tel:[phone] OFFICE/OUTPAT IENT VISIT, [facility], [address] [place] [address], [id number] , [place] tel:[phone] [facility] [place] low back pain (chief complaint) Postlaminecto my syndrome, not elsewhere classifiedLow back painLong term (current) use of opiate analgesic Sep-0 6 Yasir Campos. [address] [place] [address], [id number], [place]. tel:[phone] Consulting Provider: Lucas AU, [address], [place], [address]. tel:[phone] ring Provider: Emir Espinal, [address] [place] [address], [address]. tel:[phone] OFFICE/OUTPAT IENT VISIT, EST [facility], [address] [place] [address], [id number] , [place] [phone] [facility] [place] low back pain (chief complaint) Postlaminecto my syndrome, not elsewhere classifiedLow back pain 6 Yasir Beth. [address] [place] [address], [id number], [place]. tel:[phone] Referring Provider: Emir Espinal, [address] [place] [address], [address]. tel:[phone] OFFICE/OUTPAT IENT VISIT, [facility], [address] [place] [address], [id number] , [place] [phone] [facility] [place] low back pain (chief complaint) Postlaminecto my syndrome, not elsewhere classifiedLow back pain 6 Yasir Campos. [address] [place] [address], [id number], [place]. tel:[phone] Consulting Provider: Lucas Talamantes PAC, [facility] [address] [place] [address], [place], [address]. tel:[phone] ring Provider: Emir Espinal, [address] [place] [address], [address]. tel:[phone] OFFICE/OUTPAT IENT VISIT, [facility], [address] [place] [address], [id number] , [place] tel:[phone] [facility] [place] low back pain (chief complaint) Low back painPostlamin ectomy syndrome, not elsewhere classified 6 Ney Stacie. [address] [place] [address], [id number], [place]. tel:[phone] Consulting Provider: Lucas AU, [facility] [address], [place], [address]. tel:[phone] ring Provider: Emir Espinal, [address] [place] [address], [address]. tel:[phone] OFFICE/OUTPAT IENT VISIT, [facility], [address] [place] [address], [id number] , [place] tel:[phone] [facility] low back pain (chief complaint) Low back painPostlamin ectomy syndrome, not elsewhere classified Ney Quinones. [address] [place] [address], [id number], [place]. tel:[phone] Consulting Provider: Lucas AU, [facility] [address] [place] [address], [place], [address]. tel:[phone] Provider: Emir Espinal, [address] [place] [address], [address]. tel:[phone] OFFICE/OUTPAT IENT VISIT, [facility], [address] [place] [address], [id number] , [place] tel:[phone] [facility] low back pain (chief complaint) Postlaminecto my syndrome, not elsewhere classifiedLow back pain Yasir Campos. [address] [place] [address], [id number], [place]. tel:[phone] Consulting Provider: Lucas AU, [facility] [address] [place] [address], [place], [address]. tel:[phone] ring Provider: Emir Espinal, [address] [place] [address], [address]. tel:[phone] OFFICE/OUTPAT IENT VISIT, [facility], [address] [place] [address], [id number] , [place] tel:[phone] [facility] low back pain (chief complaint) Low back painPostlamin ectomy syndrome, not elsewhere classified 6 Ney Stacie. [address] [place], [place], [id number], [place]. tel:[phone] Consulting Provider: Lucas UA, [facility] [address], [place], [address]. tel:[phone] ring Provider: Emir Espinal, [address] [place] [address], [address]. tel:[phone] OFFICE/OUTPAT IENT VISIT, [facility], [address] [place] [address], [id number] , [place] tel:[phone] [facility] low back pain (chief complaint) Low back pain 6 Ney Stacie. [address] [place], [place], [id number], [place]. tel:[phone] Consulting Provider: Lucas AU, [address], [place], [address]. tel:[phone] ring Provider: Emir Espinal, [address] [place] [address], [address]. tel:[phone] OFFICE/OUTPAT IENT VISIT, [facility], [address] [place] [address], [id number] , [place] tel:[phone] [facility] low back pain (chief complaint) Low back painPostlamin ectomy syndrome, not elsewhere classified 6 Ney Stacie. [address] [place] [address], [id number], [place]. tel:[phone] Consulting Provider: Lucas AU, [facility] [address], [place], [address]. tel:[phone] ring Provider: Emir Espinal, [address] [place] [address], [address]. [phone] OFFICE/OUTPAT IENT VISIT, EST [facility], [address] [place], [place], [id number] , [place] tel:[phone] [facility] [place] low back pain (chief complaint) Low back painPostlamin ectomy syndrome, not elsewhere classified 5 Ney Stacie. [address] [place], [place], [id number], [place]. tel:[phone] Consulting Provider: Lucas AU, [address], [address]. [phone] Provider: Emir Espinal, [address] [place] [address], [address]. [phone] OFFICE/OUTPAT IENT VISIT, [facility], [address] [place] [address], [id number] , [place] [phone] [facility] [place] low back pain (chief complaint) Trochanteric bursitis, right hipTrochanter ic bursitis, left hipLow back painPostlamin ectomy syndrome, not elsewhere classified 5 Ney Stacie. [address] [place], [place], [id number], [place]. tel:[phone] Consulting Provider: Lucas AU, [facility] [address] [place] [address], [place], [address]. tel:[phone] ring Provider: Emir Espinal, [address] [place] [address], [address]. tel:[phone] OFFICE/OUTPAT IENT VISIT, [facility], [address] [place] [address], [id number] , [place] tel:[phone] [facility] low back pain (chief complaint) Low back painPostlamin ectomy syndrome, not elsewhere classified 5 Neydarrel Quinones. [address] [place] [address], [id number], [place]. tel:[phone] Consulting Provider: Lucas AU, [facility] [address], [place], [address]. tel:[phone] ring Provider: Emir Espinal, [address] [place] [address], [address]. tel:[phone] OFFICE/OUTPAT IENT VISIT, [facility], [address] [place] [address], [id number] , [place] tel:[phone] [facility] low back pain (chief complaint) LumbagoPostla minectomy syndrome of lumbar region Sep-2 - 5 Ney Quinones. [address] [place] [address], [id number], [place]. tel:[phone] Consulting Provider: Lucas AU, [address] [facility], [place], [address]. tel:[phone] ring Provider: Emir Espinal, [address] [place] [address], [address]. tel:[phone] OFFICE/OUTPAT IENT VISIT, [facility], [address] [place] [address], [id number] , [place] tel:[phone] [facility] low back pain (chief complaint) LumbagoPostla minectomy syndrome of lumbar regionEncount er for current longterm use of high risk medication Sep-0 3-201 5 Ney Stacie. [address] [place] [address], [id number], [place]. tel:[phone] Consulting Provider: Lucas AU, [facility] [address], [place], [address]. tel:[phone] ring Provider: Emir Espinal, [address] [place] [address], [address]. tel:[phone] OFFICE/OUTPAT IENT VISIT, [facility], [address] [place] [address], [id number] , [place] tel:[phone] [facility] complaint) LumbagoPostla minectomy syndrome of lumbar region 5 Ney Quinones. [address] [place] [address], [id number], [place]. tel:[phone] Consulting Provider: Lucas AU, [address], [address]. tel:[phone] ring Provider: Emir Espinal, [address] [place] [address], [address]. tel:[phone] OFFICE/OUTPAT IENT VISIT, [facility], [address] [place] [address], [id number] , [place] tel:[phone] [facility]) Lumbar failed back surgery syndrome 5 No Information Consulting Provider: Lucas AU, [address] [address], [place], [address]. tel:[phone] ring Provider: Emir Espinal, [address] [place] [address], [address]. tel:[phone] OFFICE/OUTPAT IENT VISIT, [facility], [address] [place] [address], [id number] , [place] tel:[phone] [facility] Back Pain (chief complaint) Lumbar failed back surgery syndromeEncou nter for current senior budget analyst use of high risk medication No Information Referring Provider: Emir Espinal, [address] [place] [address], [address]. tel:[phone] OFFICE/OUTPAT IENT VISIT, [facility], [address] [place], [place], [id number] , [place] tel:[phone] [facility] [facility] low [facility] pain (chief complaint) Lumbar failed back surgery syndrome No Information Referring Provider: Emir Espinal, [address] [place], [id number]. tel:[phone] OFFICE/OUTPAT IENT VISIT, [facility], [address] [place], [place], [id number] , [place] tel:[phone] [facility] [place] Back Pain (chief complaint) Lumbar failed back surgery syndromeEncou nter for current longterm use of high risk medication No Information Referring Provider: Emir Espinal, [address] [place], [address]. tel:[phone] Family History Family Member Type Diagnosis Age At Onset No Information Payers Payer name Insurance type Covered green party ID Authoriza tiflaco(s) [employer] Medicare Prime Solution [id number] Social History Type Description Quantity Date Captured Comments Alcohol Use Details Unknown Caffeine Use Details Unknown Tobacco Use Status No Information Smoking Status No Information Sex Female Chief Complaint And Reason For Visit From encounter dated '09/20/2024 08:56'. Widespread pain (chief complaint). Description: Severity level is 7. Duration: chronic. Location ofthe pain is lower back and neck. It occurs persistently. The problem is worsening. Symptom is aggravated by overuse and daily activities. Relieving factors include rest and Rx Meds. Reason For Referral Reason For Referral No Information Plan Of Treatment Date Type Action Status Goal UDT. Due on due Goal Medication Recon ciliation. Due on due Goal Tobacco screening. Due on due Goal Creatinine. Due on 24 due Goal Review Allergy List. Due on due Goal AST (SGOT). Due on due Goal Zoster vaccine ( 1st). Due on due Goal PAPERBOARD BOX MAKER Paperwork. Due on due Goal ALT (SGPT). Due on due Goal HPV. Due on due Goal Weight. Due on d ue Goal CT-Colonography. Due on due Goal PHQ-9. Due on du e Goal FIT-DNA. Due on due Goal FIT. Due on due Goal Order Annual PT. Due on due Goal Height. Due on d ue Goal Tobacco Use. Due on due Goal Hepatitis C scre ening. Due on due Goal REQUIREMENTS ENGINEER Scanned. Due on due Goal Update Social [...] C scre ening. Due on due Goal PAPERBOARD BOX MAKER Paperwork. Due on due Goal Review Allergy List. Due on due Goal PHQ-9. Due on du e Goal Creatinine. Due on due Goal Tobacco screening. Due on due Goal AST (SGOT). Due on due Goal REQUIREMENTS ENGINEER Scanned. Due on due Goal Order Annual [...] Goal CT-Colonography. Due on due Goal Tobacco screening. Due on due Goal Creatinine. Due on due Goal Update Social Hi story. Due on due Goal PHQ-9. Due on du e Goal AST (SGOT). Due on due Goal FIT. Due on due Goal Weight. Due on d ue Goal REQUIREMENTS ENGINEER Scanned. Due on due Goal Review Allergy List. Due on due Goal ALT (SGPT). Due on 24 due Goal Height. Due on d ue Goal Zoster vaccine ( 1st). Due on due Goal UDT. Due on due Goal OARS. Due on due Goal Medication Recon ciliation. Due on due Goal FIT-DNA. Due on due Goal Tobacco Use. Due on due Goal HPV. Due on due Goal PAPERBOARD BOX MAKER Paperwork. Due on due Goal Hepatitis C scre ening. Due on due Goal Unhealthy drug u se screening. Due on due Goal Review Allergy List. Due on due Goal Weight. Due on d ue Goal Zoster vaccine ( 1st). Due on due Goal FIT-DNA. Due on due Goal Tobacco screening. Due on due Goal Update Social Hi story. Due on due Goal FIT. Due on due Goal Unhealthy drug u se screening. Due on due Goal Medication Recon ciliation. Due on due Goal HPV. Due on due Goal UDT. Due on due Goal AST (SGOT). Due on due Goal REQUIREMENTS ENGINEER Scanned. Due on due Goal ALT (SGPT). Due on due Goal Order Annual PT. Due on due Goal OARS. Due on due Goal PAPERBOARD BOX MAKER Paperwork. Due on due Goal Creatinine. Due on due Goal Hepatitis C scre ening. Due on due Goal Tobacco Use. Due on due Goal Height. Due on d ue Goal PHQ-9. Due on du e Goal CT-Colonography. Due on due Goal CT-Colonography. Due on due Goal HPV. Due on due Goal Tobacco screening. Due on due Goal Unhealthy drug u [...] due Goal UDT. Due on due Goal REQUIREMENTS ENGINEER Scanned. Due on due Goal PHQ-9. Due on du e Goal Tobacco Use. Due on due Goal Update Social Hi story. Due on due Goal Medication Recon ciliation. Due on due Goal Zoster vaccine ( 1st). Due on due Goal FIT-DNA. Due on due Goal Order Annual PT. Due on due Goal PAPERBOARD BOX MAKER Paperwork. Due on due Goal ALT (SGPT). Due on due Goal OARS. Due on due Goal HPV. Due on due Goal Review [...] C scre ening. Due on due Goal REQUIREMENTS ENGINEER Scanned. Due on due Goal Update Social Hi story. Due on due Goal Creatinine. Due on due Goal Order Annual PT. Due on due Goal Medication Recon ciliation. Due on due Goal PAPERBOARD BOX MAKER Paperwork. Due on due Goal Zoster vaccine ( ). Due on due Goal Height. Due on d ue Goal Lipid panel. Due on due Goal PHQ-9. Due on du e Goal Lifestyle education regardin g diet completed Goal Unhealthy drug u se screening. Due on due Goal CT-Colonography. Due on due Goal Update Social Hi story. Due on due Goal Order Annual PT. Due on due Goal Creatinine. Due on due Goal PAPERBOARD BOX MAKER Paperwork. Due on due Goal ALT (SGPT). Due on due Goal AST (SGOT). Due on due Goal REQUIREMENTS ENGINEER Scanned. Due on due Goal HPV. Due [...] Goal PHQ-9. Due on du e Goal REQUIREMENTS ENGINEER Scanned. Due on due Goal OARS. Due on due Goal UDT. Due on due Goal AST (SGOT). Due on due Goal ALT (SGPT). Due on due Goal Creatinine. Due on due Goal PAPERBOARD BOX MAKER Paperwork. Due on due Goal Order Annual PT. Due on due Goal Zoster vaccine ( [...] ue Goal FIT. Due on due Goal REQUIREMENTS ENGINEER Scanned. Due on due Goal UDT. Due [...] C scre ening. Due on due Goal PAPERBOARD BOX MAKER Paperwork. Due on due Goal Lipid panel. [...] Goal AST (SGOT). Due on due Goal REQUIREMENTS ENGINEER Scanned. Due on due Goal PAPERBOARD BOX MAKER Paperwork. Due on due Goal ALT (SGPT). Due on due Goal Review Allergy List. Due on due Goal HPV. Due on due Goal Update Social Hi story. Due on due Goal PAPERBOARD BOX MAKER Paperwork. Due on due Goal Medication Recon [...] Goal Weight. Due on d ue Goal REQUIREMENTS ENGINEER Scanned. Due on due Goal Lipid panel. [...] Goal Weight. Due on d ue Goal PAPERBOARD BOX MAKER Paperwork. Due on due Goal REQUIREMENTS ENGINEER Scanned. Due on due Goal Hepatitis C [...] due Goal FIT-DNA. Due on due Goal Lifestyle education regardin g diet completed Goal AST (SGOT). Due on due Goal Tobacco Use. Due on due Goal ALT (SGPT). Due on due Goal FIT-DNA. Due on due Goal Review Allergy List. Due on due Goal Hepatitis C scre ening. Due on due Goal Creatinine. Due on due Goal OARS. Due on due Goal PAPERBOARD BOX MAKER Paperwork. Due on due Goal FIT. Due [...] due Goal UDT. Due on due Goal REQUIREMENTS ENGINEER Scanned. Due on due Goal REQUIREMENTS ENGINEER Scanned. Due on due Goal Creatinine. Due on due Goal OARS. Due on due Goal ALT (SGPT). Due on due Goal PAPERBOARD BOX MAKER Paperwork. Due on due Goal UDT. Due [...] Goal AST (SGOT). Due on due Goal PAPERBOARD BOX MAKER Paperwork. Due on due Goal Height. Due on d ue Goal Weight. Due on d ue Goal Review Allergy List. Due on due Goal Hepatitis C scre ening. Due on due Goal FIT-DNA. Due on due Goal HPV. Due on due Goal Lipid panel. Due on due Goal Unhealthy drug u se screening. Due on due Goal ALT (SGPT). Due on due Goal REQUIREMENTS ENGINEER Scanned. Due on due Goal Creatinine. Due [...] Use. Due on due Goal Update Social [employer] story. Due on due Goal UDT. Due on due Goal FIT. Due on due Goal REQUIREMENTS ENGINEER Scanned. Due on due Goal PHQ-9. Due on du e Goal Hepatitis C scre ening. Due on due Goal ALT (SGPT). Due on due Goal PAPERBOARD BOX MAKER Paperwork. Due on due Goal HPV. Due on due Goal OARS. Due on due Goal Weight. Due on d ue Goal Unhealthy drug u se screening. Due on due Goal FIT-DNA. Due on due Goal Update Social Hi story. Due on due Goal FIT. Due on due Goal Height. Due on d ue Goal ALT (SGPT). Due on due Goal Zoster vaccine ( 1st). Due on due Goal REQUIREMENTS ENGINEER Scanned. Due on due Goal PAPERBOARD BOX MAKER Paperwork. Due on due Goal Medication Recon [...] Medication Recon ciliation. Due on due Goal PAPERBOARD BOX MAKER Paperwork. Due on due Goal PHQ-9. Due on du e Goal FIT-DNA. Due on due Goal REQUIREMENTS ENGINEER Scanned. Due on due Goal CT-Colonography. Due [...] Order Annual PT. Due on due Goal REQUIREMENTS ENGINEER Scanned. Due on due Goal PAPERBOARD BOX MAKER Paperwork. Due on due Goal Lipid panel. [...] Goal Weight. Due on d ue Goal REQUIREMENTS ENGINEER Scanned. Due on due Goal HPV. Due [...] Goal Height. Due on d ue Goal PAPERBOARD BOX MAKER Paperwork. Due on due Goal Review Allergy [...] vaccine ( 1st). Due on due Goal REQUIREMENTS ENGINEER Scanned. Due on due Goal Tobacco Use. Due on due Goal OARS. Due on due Goal FIT. Due on due Goal PAPERBOARD BOX MAKER Paperwork. Due on due Goal Height. Due on d ue Goal UDT. Due on due Goal Order Annual PT. Due on due Goal FIT-DNA. Due on due Goal REQUIREMENTS ENGINEER Scanned. Due on due Goal Update Social Hi story. Due on due Goal Height. Due on d ue Goal AST (SGOT). Due on due Goal ALT (SGPT). Due on due Goal PAPERBOARD BOX MAKER Paperwork. Due on due Goal Creatinine. Due [...] ALT (SGPT). Due on 24 due Goal REQUIREMENTS ENGINEER Scanned. Due on due Goal Update Social Hi story. Due on due Goal Creatinine. Due on due Goal PAPERBOARD BOX MAKER Paperwork. Due on due Goal Medication Recon [...] Goal Tobacco Use. Due on due Goal PAPERBOARD BOX MAKER Paperwork. Due on due Goal REQUIREMENTS ENGINEER Scanned. Due on due Goal Medication Recon [...] due Goal OARS. Due on due Goal OARS. Due on due Goal FIT-DNA. Due on [...] Review Allergy List. Due on due Goal REQUIREMENTS ENGINEER Scanned. Due on due Goal UDT. Due on due Goal CT-Colonography. Due on due Goal PAPERBOARD BOX MAKER Paperwork. Due on due Goal Hepatitis C [...] Goal Lipid panel. Due on due Goal [facility] Paperwork. Due on due Goal Order Annual PT. Due on due Goal REQUIREMENTS ENGINEER Scanned. Due on due Goal FIT-DNA. Due [...] Goal AST (SGOT). Due on due Goal PAPERBOARD BOX MAKER Paperwork. Due on due Goal REQUIREMENTS ENGINEER Scanned. Due on due Goal ALT (SGPT). [...] Order Annual PT. Due on due Goal PAPERBOARD BOX MAKER Paperwork. Due on due Goal Creatinine. Due on due Goal Review Allergy List. Due on due Goal UDT. Due on due Goal REQUIREMENTS ENGINEER Scanned. Due on due Goal FIT. Due [...] due Goal FIT-DNA. Due on due Goal REQUIREMENTS ENGINEER Scanned. Due on due Goal PAPERBOARD BOX MAKER Paperwork. Due on due Goal Review Allergy [...] ue Goal UDT. Due on due Goal Weight. Due on d ue Goal PAPERBOARD BOX MAKER Paperwork. Due on due Goal REQUIREMENTS ENGINEER Scanned. Due on due Goal ALT (SGPT). [...] e Goal HPV. Due on due Goal REQUIREMENTS ENGINEER Scanned. Due on due Goal PAPERBOARD BOX MAKER Paperwork. Due on due Goal AST (SGOT). [...] ue Goal CT-Colonography. Due on due Goal UDT. [...] Goal Lipid panel. Due on due Goal PAPERBOARD BOX MAKER Paperwork. Due on due Goal Unhealthy drug u se screening. Due on due Goal Creatinine. Due on due Goal Order Annual PT. Due on due Goal FIT-DNA. Due on due Goal Medication Recon ciliation. Due on due Goal HPV. Due on due Goal Height. Due on d ue Goal REQUIREMENTS ENGINEER Scanned. Due on due Goal Review Allergy List. Due on due Goal PHQ-9. Due on du e Goal UDT. Due on due Goal Lipid panel. Due on due Goal ALT (SGPT). Due on due Goal OARS. Due on due Goal Creatinine. Due on due Goal REQUIREMENTS ENGINEER Scanned. Due on due Goal Order Annual [...] due Goal CT-Colonography. Due on due Goal PAPERBOARD BOX MAKER Paperwork. Due on due Goal Review Allergy List. Due on due Goal AST (SGOT). Due on due Goal Medication Recon ciliation. Due on due Goal Zoster vaccine ( 1st). Due on due Goal Tobacco Use. Due on due Goal Review Allergy List. Due on due Goal Weight. Due on d ue Goal FIT. Due on due Goal UDT. Due on due Goal REQUIREMENTS ENGINEER Scanned. Due on 023 due Goal ALT (SGPT). Due on due Goal OARS. Due on due Goal AST (SGOT). Due on due Goal PAPERBOARD BOX MAKER Paperwork. Due on due Goal Order Annual [...] e Goal HPV. Due on due Goal REQUIREMENTS ENGINEER Scanned. Due on due Goal Height. Due on d ue Goal Lipid panel. Due on due Goal FIT. Due on due Goal Order Annual PT. Due on due Goal PAPERBOARD BOX MAKER Paperwork. Due on due Goal Tobacco Use. [...] vaccine ( ). Due on due Goal Medication Recon ciliation. Due on due Goal OARS. Due on due Goal Weight. Due on d ue Goal UDT. Due on due Goal Height. Due on d ue Goal Creatinine. Due on due Goal PAPERBOARD BOX MAKER Paperwork. Due on due Goal FIT-DNA. Due on due Goal AST (SGOT). Due on due Goal REQUIREMENTS ENGINEER Scanned. Due on 023 due Goal Order Annual PT. Due on [...] ue Goal FIT. Due on due Goal REQUIREMENTS ENGINEER Scanned. Due on due Goal Zoster vaccine ( 1st). Due on due Goal HPV. Due on due Goal AST (SGOT). Due on due Goal PAPERBOARD BOX MAKER Paperwork. Due on due Goal Hepatitis C scre ening. Due on due Goal ALT (SGPT). Due on due Goal OARS. Due on due Goal Order Annual PT. Due on due Goal Creatinine. Due on due Goal Weight. Due on d ue Goal Review Allergy List. Due on due Goal UDT. Due on due Goal Unhealthy drug u se screening. Due on due Goal PHQ-9. Due on du e Goal FIT-DNA. Due on due Goal CT-Colonography. Due on due Goal Lipid panel. Due on due Goal Tobacco Use. Due on due Goal Update Social Hi story. Due on due Goal Medication Recon ciliation. Due on due Goal PHQ-9. Due on du e Goal REQUIREMENTS ENGINEER Scanned. Due on due Goal Lipid panel. [...] Order Annual PT. Due on due Goal PAPERBOARD BOX MAKER Paperwork. Due on due Goal Creatinine. Due [...] Lipid panel. Due on 023 due Goal Creatinine. Due on due Goal Order Annual PT. Due on due Goal Update Social Hi story. Due on due Goal PHQ-9. Due on du e Goal AST (SGOT). Due on due Goal Review Allergy List. Due on due Goal UDT. Due on due Goal Medication Recon ciliation. Due on due Goal FIT. Due on due Goal REQUIREMENTS ENGINEER Scanned. Due on due Goal OARS. Due on due Goal PAPERBOARD BOX MAKER Paperwork. Due on due Goal Hepatitis C scre ening. Due on due Goal Tobacco Use. Due on due Goal Zoster vaccine ( 1st). Due on due Goal HPV. Due on due Goal Height. Due on d ue Goal OARS. Due on due Goal REQUIREMENTS ENGINEER Scanned. Due on due Goal Update Social Hi story. Due on due Goal CT-Colonography. Due on due Goal HPV. Due on due Goal AST (SGOT). Due on due Goal Zoster vaccine ( ). Due on due Goal PAPERBOARD BOX MAKER Paperwork. Due on due Goal Review Allergy [...] Goal Weight. Due on d ue Goal PAPERBOARD BOX MAKER Paperwork. Due on due Goal Tobacco Use. Due on due Goal REQUIREMENTS ENGINEER Scanned. Due on due Goal FIT-DNA. Due on due Goal Medication Recon ciliation. Due on due Goal AST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 [...] pain. S/p back surgery on 01/16 at [facility], patient is still experiencing post-op [...] to worsen.Upcoming back surgery on 01/16 at [facility]. May also needs an additional [...] financially burdening for her to purchase it [id number]. Endorses OIC, managed with [facility]. Denies other [...] other concerns today. Comments: Ramona presents via [employer] for virtual follow up and medication refill.Recently [...] relieved by lying down and pain meds/drugs. Comments: Ramona presents via [employer] for virtual follow up and medication refill.States [...] Tylenol more regularly. No other concerns today. Headache Back Pain Severity level i s [...] by lying down. Back Pain (comments) Ramona ents for a [...] wasn't enough.No other concerns today. Back Pain (comments) Ramona [...] morning. Plans to mail consent form for [place] medical cannabis program to [facility].No other concerns today. Back Pain Severity level [...] scan and will be following up with [facility] in 2 weeks to review the [...] long after the surgery. Expresses frustrations with [facility] not providing her the proper doses [...] though not interested in staying at dosage longterm.No other concerns today. Back Pain (comments) Patient [...] persistent and chronic. She met with her glaucoma specialist who reviewed her recent lumbar MRI and was told that there was a bone spur and bulging disks. She is receiving an injection next Friday there to relieve her pain. Her specialist is also evaluating on any surgical procedures that may help her. She is frustrated that there may be more procedures for her to endure.No other concerns today. Back Pain Severity level [...] today. She will be starting with a personalized living manager on Friday. 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 Back Pain (comments) Ramona [...] injection. No other concerns today. Back Pain Severity [...] pool for her HEP. low back pain (comments) Patient is here for follow-up and medication refills. Patient has #11 Oxycontin and #14 oxycodone remaining today - on track. Reports 80% relief from the medication. Has had a good month; pain has been better. She is walking every day for 30 mins and plans to start water aerobics. She would like to try decreasing her Oxycontin dose. low back pain Severity level i s 6-09/19. Duration: chronic. The problem is improving. It occurs intermittently. Location of pain is lower back.There is no radiation of pain. The patient describes the pain as an ache and sharp. Symptoms are aggravated by bending, sitting, twisting and stooping. Symptoms are relieved by pain meds/drugs, rest and walking. Back Pain Severity level i s 4. [...] to wait on getting neck injections at [facility] because her pain is tolerable as of now. She says she joined [employer] and works out everyday, which has [...] continue to be painful - treating at [facility]. Nerve blocks have been ordered at [facility] and if ineffective, will be considering surgery. Neck pain low back pain Severity level [...] and numbness. Will be following up with [facility]. low back pain Severity level i [...] relief; denies any SE. Continues to watch grandkids. States her SCS is and never was [...] reports that she completed a CT at [facility]. It was recommended she complete myofascial [...] more hours during the week. Met with [facility] and fusion looks stable. Has been referred for myofascial release at [facility] in [place]. low back pain Severity level i s [...] more often. Will be starting PT in [place] on 02/23/15. Patient has #5 Oxycontin and [...] by pain meds/drugs and sitting. Back Pain (comments) Ramona is h ere today for follow up and medication refill. On track with medication. She says she is doing very well and she would like to continue as scheduled. She states the Tizanadine relieves her pain when only taking one at a time. She states she is having trouble with constipation due to medications. Back Pain Severity level i s mild-moderate. [...] Back Pain (comments) Patient was referred by [facility]. Patient has a hx of severe lumbar DDD; she had a L4-S1 fusion in April 2011 and revision in February 2014. She also has a hx of cervical fusion in 2010. Neck pain has resolved, she is here today to inquire about treating her low back pain. Patient has a [employer] SCS, though is not currently using [...] she knows she will not be driving. [place] is effective for only one hour. She [...] et Related to Body mass index [BMI] 19.9 or less, adult FU with provider skyler bernabe 1 week to discuss Suboxone induction and appriorate next steps. Discharge instructions given to patient covering amount of medication given in clinic along with instructions for use this evening and the rest of the week. No further questions or concerns at this time. Related to Opioid dependence, uncomplicated Lifestyle education regarding di et Related to Body mass index [BMI] 27.0-27.9, adult Assessments Type Assessment Date assessment Chronic pain syndrome impression Chronic neck, low ba ck, and BL knee pain affecting physical and social function assessment Postlaminectomy syndrome, not el sewhere classified impression Hx of multiple lumba r and cervical surgeries. She is fused from L2-S1. Hx of ACDF from C4-5 to C6-7Forwarded History: Hardware removal surgery 09/23/23 w/ Dr. Sawyer.Patient also previously had collapsed cervical fusion. Surgery completed on 01/17/21 to rebuild fusion; patient reported worsening headaches/migraine 2 weeks following surgery. S/p additional neck surgery on 08/21/21, and she developed stinging and twinging into left arm following.Cervical MRI report on 08/12/23 previously reviewed and shows: 1. Solid ACDF from [...] to C7 assessment Drug induced constipation impression Side effects of rachael rush her medication include constipation but it is manageable with Linzess. May consider Movantik in the future. 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 Currently prescribed Suboxone 8mg-2mg BID but takes #4 half-films QID. Denies additional side effects with current medication. Presents without medications--due out on 09/19/24. Patient made aware of the clinic's policy per [facility]. She confirms understanding. Continues with Linzess with benefit. [facility] has been terminated and has been weened off opioids due to negative medications in UDT 10/29/23. Patient had began suboxone induction on 03/09/2024 and has tolerated it well. Most recent UDT on 07/20/24 reviewed and appropriate. Patient has been managing medications appropriately, and is not confused or oversedated during our office visit. MNPMP queried and consistent. Appropriate to continue with Suboxone therapy. assessment Radiculopathy, lumbar region Sep impression Chronic low back angel luis n with bilateral radicular symptoms, worse since SYD. S/p Caudal CARLOS on 09/06/2024 providing limited relief, further relief pending. Forwarded/Pertinent hx:Previously discussed additional treatment options: muscle relaxer, trigger point injections, topical meds, and/or medical cannabis. Patient has previously declined these options; Soma was the only thing that helped previously. Discussed that [facility] does not prescribe Soma.Lumbar MRI through [facility] completed on 07/28/2024 previously reviewed and shows:Conclusion: 1. 5 mm left foraminal osteophyte at L3-4 causing moderate left foraminal stenosis and potential impingement on the exiting left L4 nerve. 2. Additional multilevel degenerative changes of lumbar spine as detailed above. No central stenosis. Solid interbody fusion from L2 to S1. Interval removal of the bilateral L2 pedicular screws. Anterior and psoterior fusion from L3 to S1. 4. Modic 1 endplate changes at L1-2. Mental Status Date Cognitive Assessment Orientation - [place] ed to time, place, person, situation. Patient Care Teams Name Effective Dates (start - stop) Status Members No Information
--- OUTSIDE RECORDS SUMMARY | 2024-09-20 03:56 | XMS_ITS | Continuity of Care Document ---
Author Organization [facility] tommie Address [address] [facility] [place] Schmidt [id number] Phone Care Team Providers Care Nutritionalist Name Role Phone Ronald Maldonado Unavailable Unavailable [...] or swallowing. MAX 2 films/day - Active [id number], to fill and start 09/20 tizanidine 4 [...] Copied on Encounter OFFICE VISIT, EST TELEMEDICINE [facility], [address] [facility] [place], [id number] , [place] tel:[phone] [facility] [place] Widespread pain (chief complaint) Chronic pain syndromePostl aminectomy syndrome, not elsewhere classifiedDru g induced constipationL lupis term (current) use of opiate analgesicRadi culopathy, lumbar region 5 Darnell Cardenas. [address] [place] [address], [id number], [place]. tel:[phone] Consulting Provider: Lucas Talamantes, [facility] [address], [place], [address]. tel:[phone] [facility], [address] [place] [address], [id number] , [place] [phone] [facility] [place] Radiculopathy , lumbar region 5 Braeden Murcia. [address] [place] [address], [id number], [place]. tel:[phone] Referring Provider: Ronald Patrick, [address] [place] [address], [id number]. tel:[phone] OFFICE VISIT, EST TELEMEDICINE [facility], [address] [place] [address], [id number] , [place] [phone] [facility] Widespread pain (chief complaint) Chronic pain syndromePostl aminectomy syndrome, not elsewhere classifiedDru g induced constipationL lupis term (current) use of opiate analgesicRadi culopathy, lumbar region 5 Darnell Cardenas. [address] [place] [address], [id number], [place]. tel:[phone] Consulting Provider: Lucas Talamantes, [facility] [address], [address], [place], [address]. tel:[phone] ring Provider: Emir Espinal, [address] [place] [address], [id number]. tel:[phone] OFFICE/OUTPAT IENT VISIT, EST [facility], [address] [place] [address], [id number] , [place] tel:[phone] [facility] Widespread pain (chief complaint) Chronic pain syndromePostl aminectomy syndrome, not elsewhere classifiedDru g induced constipationL lupis term (current) use of opiate analgesicRadi culopathy, lumbar regionEncount er for therapeutic drug level monitoring 5 Darnell Cardenas. [address] [place] [address], [id number], [place]. tel:[phone] Consulting Provider: Lucas Talamantes, [facility] [address], [address], [place], [address]. tel:[phone] ring Provider: Emir Espinal, [address] [place] [address], [id number]. tel:[phone] OFFICE VISIT, [facility], [address] [place] [address], [id number] , [place] tel:[phone] [facility] Widespread pain (chief complaint) Chronic pain syndromeOther intervertebra l disc degeneration, lumbar region, NOSPostlamine ctomy syndrome, not elsewhere classifiedDru g induced constipationL lupis term (current) use of opiate analgesic May-0 6- 5 Darnellbuddy Cardenas. [address] [place] [address], [id number], [place]. tel:[phone] Consulting Provider: Lucas Talamantes, [facility] [address], [address], [place], [address]. tel:[phone] ring Provider: Emir Espinal, [address] [place] [address], [id number]. tel:[phone] OFFICE VISIT, [facility], [address] [place] [address], [id number] , [place] tel:[phone] [facility] low back pain (chief complaint) Chronic pain syndromeOther intervertebra l disc degeneration, lumbar region, NOSPostlamine ctomy syndrome, not elsewhere classifiedDru g induced constipationL lupis term (current) use of opiate analgesic Apr-0 8- 5 Jonah Pastorbeke Kiara. [address] [place] [address], [id number], [place]. tel:[phone] Consulting Provider: Lucas Talamantes, [facility] [address], [address], [place], [address]. tel:[phone] ring Provider: Emir Espinal, [address] [place] [address], [id number]. tel:[phone] OFFICE/OUTPAT IENT VISIT, [facility], [address] [place], [place], [id number] , [place] tel:[phone] [facility] low back pain (chief complaint) Chronic pain syndromeOther intervertebra l disc degeneration, lumbar region, NOSPostlamine ctomy syndrome, not elsewhere classifiedDru g induced constipationL lupis term (current) use of opiate analgesicBody mass index [BMI] 19.9 or less, adultEncounte r for therapeutic drug level monitoring 5 Darnell Cardenas. [address] [place], [place], [id number], [place]. tel:[phone] Consulting Provider: Lucas Talamantes, [facility] [address], [address], [place], [address]. tel:[phone] ring Provider: Emir Espinal, [address] [place] [address], [id number]. tel:[phone] OFFICE/OUTPAT IENT VISIT, [facility], [address] [place], [place], [id number] , [place] tel:[phone] [facility] back pain (chief complaint) Chronic pain syndromeOther intervertebra l disc degeneration, lumbar region, NOSPostlamine ctomy syndrome, not elsewhere classifiedDru g induced constipationL lupis term (current) use of opiate analgesicEnco unter for therapeutic drug level monitoring 5 Darnell Cardenas. [address] [place], [place], [id number], [place]. tel:[phone] Consulting Provider: Lucas Talamantes, [facility] [address], [address], [place], [address]. tel:[phone] Provider: Emir Espinal, [address] [place] [address], [address]. tel:[phone] OFFICE/OUTPAT IENT VISIT, [facility], [address] [place], [place], [id number] , [place] tel:[phone] [facility] Opioid dependence, uncomplicated 5 Audrey Silverio. [address] [place] [address], [id number], [place]. tel:[phone] Referring Provider: Emir Espinal, [address] [place] [address], [id number]. tel:[phone] OFFICE VISIT, [facility] TELEMEDICINE [facility], [address] [place] [address], [id number] , [place] tel:[phone] [facility] Back pain (chief complaint) Chronic pain syndromeOther intervertebra l disc degeneration, lumbar region, NOSPostlamine ctomy syndrome, not elsewhere classifiedDru g induced constipationL lupis term (current) use of opiate analgesic 5 Jonah Craig. [address] [place] [address], [id number], [place]. tel:[phone] Consulting Provider: Lucas Talamantes, [facility] [address], [address], [place], [address]. tel:[phone] OFFICE/OUTPAT IENT VISIT, [facility], [address] [place] [address], [id number] , [place] tel:[phone] [facility] Back Pain (chief complaint) Chronic pain syndromeOther intervertebra l disc degeneration, lumbar region, NOSPostlamine ctomy syndrome, not elsewhere classifiedDru g induced constipationL lupis term (current) use of opiate analgesicEnco unter for therapeutic drug level monitoring 4 Jonah Craig. [address] [place] [address], [id number], [place]. tel:[phone] Consulting Provider: Lucas Talamantes, [facility] [address], [address], [place], [address]. tel:[phone] ring Provider: Emir Espinal, [address] [place] [address], [id number]. tel:[phone] OFFICE VISIT, [facility] TELEMEDICINE [facility], [address] [place] [address], [id number] , [place] tel:[phone] [facility] [place] Back Pain (chief complaint) Chronic pain syndromeOther intervertebra l disc degeneration, lumbar region, NOSPostlamine ctomy syndrome, not elsewhere classifiedDru g induced constipationL lupis term (current) use of opiate analgesic 4 Mariusz Orellana. [address] [place] [address], [id number], [place]. tel:[phone] Consulting Provider: Lucas Talamantes, [facility] [address], [address], [place], [address]. tel:[phone] ring Provider: Emir Espinal, [address] [place] [address], [id number]. tel:[phone] [facility], [address] [place] [address], [id number] , [place] tel:[phone] [facility] No Information 4 Jonah Craig. [address] [place] [address], [id number], [place]. tel:[phone] Referring Provider: Emir Espinal, [address] [place] [address], [id number]. tel:[phone] OFFICE VISIT, EST TELEMEDICINE [facility], [address] [place] [address], [id number] , [place] tel:[phone] [facility] Back Pain (chief complaint) Chronic pain syndromeOther intervertebra l disc degeneration, lumbar region, NOSPostlamine ctomy syndrome, not elsewhere classifiedPai n in right kneePain in left kneeDrug induced constipationL lupis term (current) use of opiate analgesicBody mass index [BMI] 27.0-27.9, adult 4 Jonah Craig. [address] [place] [address], [id number], [place]. tel:[phone] Consulting Provider: Lucas Talamantes, [facility] [address], [address], [place], [address]. tel:[phone] OFFICE/OUTPAT IENT VISIT, EST [facility], [address] [place] [address], [id number] , [place] tel:[phone] [facility] [place] Back Pain (chief complaint) Chronic pain syndromeOther intervertebra l disc degeneration, lumbar regionPostlam inectomy syndrome, not elsewhere classifiedPai n in right kneePain in left kneeDrug induced constipationL lupis term (current) use of opiate analgesicEnco unter for therapeutic drug level monitoringBod y mass index [BMI] 27.0-27.9, adult Sep- 4 Jonah Craig. [address] [place] [address], [id number], [place]. tel:[phone] Consulting Provider: Lucas Talamantes, [facility] [address], [address], [place], [address]. tel:[phone] ring Provider: Emir Espinal, [address] [place] [address], [id number]. tel:[phone] [facility], [address] [place] [address], [id number] , tel:[phone] [facility] [place] Back Pain (chief complaint) Chronic pain syndromeOther intervertebra l disc degeneration, lumbar regionPostlam inectomy syndrome, not elsewhere classifiedPai n in right kneePain in left kneeDrug induced constipationL lupis term (current) use of opiate analgesic 4 Jonah Craig. [address] [place] [address], [id number], [place]. tel:[phone] Consulting Provider: Lucas Talamantes, [facility] [address], [address] [facility], [place], [address]. tel:[phone] OFFICE VISIT, EST TELEMEDICINE [facility], [address] [place] [address], [id number] , [place] tel:[phone] [facility] [place] Back pain (chief complaint) Chronic pain syndromeOther intervertebra l disc degeneration, lumbar regionPostlam inectomy syndrome, not elsewhere classifiedPai n in right kneePain in left kneeDrug induced constipationL lupis term (current) use of opiate analgesic 4 Jonah Craig. [address] [place] [address], [id number], [place]. tel:[phone] Consulting Provider: Lucas Talamantes, [facility] [address], [address], [place], [address]. tel:[phone] Provider: Emir Espinal, [address] [place] [address], [address]. tel:[phone] OFFICE/OUTPAT IENT VISIT, [facility], [address] [place] [address], [id number] , [place] tel:[phone] [facility] [place] Back Pain (chief complaint) Chronic pain syndromeOther intervertebra l disc degeneration, lumbar regionPostlam inectomy syndrome, not elsewhere classifiedPai n in right kneePain in left kneeDrug induced constipationL lupis term (current) use of opiate analgesicEnco unter for therapeutic drug level monitoringCer vicalgia 4 Jonah Craig. [address] [place] [address], [id number], [place]. tel:[phone] Consulting Provider: Lucas Talamantes, [facility] [address], [address], [place], [address]. tel:[phone] Provider: Emir Espinal, [address] [place] [address], [address]. tel:[phone] OFFICE VISIT, [facility] TELEMEDICINE [facility], [address] [place] [address], [id number] , [place] tel:[phone] [facility] [place] Back pain (chief complaint) Postlaminecto my syndrome, not elsewhere classifiedOth er intervertebra l disc degeneration, lumbar regionPain in right kneePain in left kneeDrug induced constipationL lupis term (current) use of opiate analgesicChro tommie pain syndrome 4 Jonah Pastorberoberto carlos Craig. [address] [place] [address], [id number], [place]. tel:[phone] Consulting Provider: Lucas Talamantes, [facility] [address], [address], [place], [address]. tel:[phone] [facility], [address] [place] [address], [id number] , [place] tel:[phone] [facility] [place] Pain in right kneePain in left knee June-0 4 Braeden Murcia. [address] [place] [address], [id number], [place]. tel:[phone] Referring Provider: Kiara Álvarez, [address] [place] [address], [id number]. tel:[phone] OFFICE VISIT, EST TELEMEDICINE [facility], [address] [place] [address], [id number] , [place] [phone] [facility] [place] Back Pain (chief complaint) Chronic pain syndromePostl aminectomy syndrome, not elsewhere classifiedOth er intervertebra l disc degeneration, lumbar regionPain in right kneePain in left kneeDrug induced constipationL lupis term (current) use of opiate analgesic May-2 4 Jonha Craig. [address] [place] [address], [id number], [place]. tel:[phone] Consulting Provider: Lucas Talamantes, [facility] [address], [place] [address], [place], [address]. tel:[phone] ring Provider: Emir Espinal, [address] [place] [address], [id number]. tel:[phone] [facility], [address] [place] [address], [id number] , [place] tel:[phone] [facility] [place] Pain in left kneePain in right knee May- 4 Jonah Craig. [address] [place] [address], [id number], [place]. tel:[phone] [facility], [address] [place] [address], [id number] , [place] tel:[phone] [facility] [place] Pain in right kneePain in left knee May- 4 Braeden Murcia. [address] [place] [address], [id number], [place]. tel:[phone] Referring Provider: Kiara Álvarez, [address] [place] [address], [id number]. tel:[phone] [facility], [address] [place] [address], [id number] , [place] tel:[phone] [facility] [place] Pain in left kneePain in right knee Apr-0 4 Mihir Field. [address] [place] [address], [id number], [place]. tel:[phone] [facility], [address] [place] [address], [id number] , [place] tel:[phone] [facility] [place] Low back painOther chronic painArthrodes is status 4 Braeden Murcia. [address] [place] [address], [id number], [place]. tel:[phone] Referring Provider: Kiara Álvarez, [address] [place] [address], [id number]. tel:[phone] OFFICE/OUTPAT IENT VISIT, EST [facility], [address] [place] [address], [id number] , [place] tel:[phone] [facility] [place] Back Pain (chief complaint) Postlaminecto my syndrome, not elsewhere classifiedOth er intervertebra l disc degeneration, lumbar regionPain in right kneePain in left kneeDrug induced constipationL lupis term (current) use of opiate analgesicChro tommie pain syndromeEncou nter for therapeutic drug level monitoring 4 Emeka Cordova. [address] [place] [address], [id number], [place]. tel:[phone] Referring Provider: Emir Espinal, [address] [place] [address], [id number]. tel:[phone] OFFICE VISIT, EST TELEMEDICINE [facility], [address] [place] [address], [id number] , [place] tel:[phone] [facility] [place] Back Pain (chief complaint) Postlaminecto my syndrome, not elsewhere classifiedOth er intervertebra l disc degeneration, lumbar regionPain in right kneePain in left kneeDrug induced constipationL lupis term (current) use of opiate analgesic 4 Van Overbeke Kiara. [address] [place] [address], [id number], [place]. tel:[phone] Consulting Provider: Lucas Talamantes, [facility] [address], [address], [place], [address]. tel:[phone] OFFICE VISIT, EST TELEMEDICINE [facility], [address] [place] [address], [id number] , [place] tel:[phone] [facility] [place] Back Pain (chief complaint) Postlaminecto my syndrome, not elsewhere classifiedOth er intervertebra l disc degeneration, lumbar regionPain in right kneePain in left kneeDrug induced constipationL lupis term (current) use of opiate analgesic 4 Jonah Overberoberto carlos Kiara. [address] [place] [address], [id number], [place]. tel:[phone] Consulting Provider: [facility] [address], [address], [place], [address]. tel:[phone] ring Provider: Emir Espinal, [address] [place] [address], [address]. tel:[phone] [facility], [address] [place] [address], [id number] , [place] tel:[phone] [facility] [place] No Information 3 Jonah Pastorberoberto carlos Craig. [address] [place] [address], [id number], [place]. tel:[phone] Referring Provider: Emir Espinal, [address] [place] [address], [address]. tel:[phone] OFFICE/OUTPAT IENT VISIT, EST [facility], [address] [place] [address], [id number] , [place] tel:[phone] [facility] [place] Back Pain (chief complaint) Postlaminecto my syndrome, not elsewhere classifiedOth er intervertebra l disc degeneration, lumbar regionPain in right kneePain in left kneeDrug induced constipationL lupis term (current) use of opiate analgesicEnco unter for therapeutic drug level monitoring 3 Van Overbeke Kiara. [address] [place] [address], [id number], [place]. tel:[phone] Consulting Provider: Lucas Talamantes, [facility] [address], [address], [place], [address]. tel:[phone] ring Provider: Emir Espinal, [address] [place] [address], [address]. tel:[phone] OFFICE VISIT, EST TELEMEDICINE [facility], [address] [place] [address], [id number] , [place] tel:[phone] [facility] [place] Back Pain (chief complaint) Postlaminecto my syndrome, not elsewhere classifiedOth er intervertebra l disc degeneration, lumbar regionPain in right kneePain in left kneeDrug induced constipationL lupis term (current) use of opiate analgesic 3 Van Overbeke Kiara. [address] [place], [place], [id number], [place]. tel:[phone] Consulting Provider: [facility] [address], [address], [place], [address]. tel:[phone] OFFICE VISIT, EST TELEMEDICINE [facility], [address] [place] [address], [id number] , [place] tel:[phone] [facility] [place] Back Pain (chief complaint) Postlaminecto my syndrome, not elsewhere classifiedOth er intervertebra l disc degeneration, lumbar regionPain in right kneePain in left kneeDrug induced constipationL lupis term (current) use of opiate analgesic 3 Van Overbeke Kiara. [address] [place] [address], [id number], [place]. tel:[phone] Consulting Provider: Lucas Talamantes, [facility] [address], [address], [place], [address]. tel:[phone] ring Provider: Emir Espinal, [address] [place] [address], [address]. tel:[phone] [facility], [address] [place] [address], [id number] , [place] tel:[phone] [facility] [place] Pain in right kneePain in left knee 3 Braeden Murcia. [address] [place] [address], [id number], [place]. tel:[phone] Referring Provider: Emir Espinal, [address] [place] [address], [address]. tel:[phone] [facility], [address] [place] [address], [id number] , [place] tel:[phone] [facility] [place] lumbago/kne es (chief complaint) Postlaminecto my syndrome, not elsewhere classifiedOth er intervertebra l disc degeneration, lumbar region 3 Melinda Zavala. [address] [place] [address], [id number], [place]. tel:[phone] Referring Provider: mEir Espinal, [address] [place] [address], [address]. tel:[phone] [facility], [address] [place] [address], [id number] , [place] tel:[phone] [facility] [place] No Information Sep- 3 Jonah Craig. [address] [place] [address], [id number], [place]. tel:[phone] OFFICE/OUTPAT IENT VISIT, EST [facility], [address] [place] [address], [id number] , [place] [phone] [facility] [place] Back Pain (chief complaint) Postlaminecto my syndrome, not elsewhere classifiedOth er intervertebra l disc degeneration, lumbar regionPain in right kneePain in left kneeDrug induced constipationL lupis term (current) use of opiate analgesicEnco unter for therapeutic drug level monitoring Sep-2 3 Jonah Craig. [address] [place] [address], [id number], [place]. tel:[phone] Consulting Provider: Lucas Talamantes [facility] [address], [address], [place], [address]. tel:[phone] ring Provider: Emir Espinal, [address] [place] [address], [address]. tel:[phone] OFFICE VISIT, EST TELEMEDICINE [facility], [address] [place] [address], [id number] , [place] tel:[phone] [facility] [place] Back Pain (chief complaint) Postlaminecto my syndrome, not elsewhere classifiedOth er intervertebra l disc degeneration, lumbar regionPain in right kneePain in left kneeDrug induced constipationL lupis term (current) use of opiate analgesic 3 Van Overbeke Kiara. [address] [place] [address], [id number], [place]. tel:[phone] Consulting Provider: Lucas Talamantes, [facility] [address], [address], [place], [address]. tel:[phone] ring Provider: Emir Espinal, [address] [place] [address], [id number]. tel:[phone] OFFICE VISIT, EST TELEMEDICINE [facility], [address] [place] [address], [id number] , [place] tel:[phone] [facility] [place] Back Pain (chief complaint) Postlaminecto my syndrome, not elsewhere classifiedOth er intervertebra l disc degeneration, lumbar regionSacroil iitis, not elsewhere classifiedPai n in right kneePain in left kneeOther muscle spasmChronic migraine without aura, intractable, without status migrainosusMa domitila depressive disorder, single episode, unspecifiedDr ug induced constipationL lupis term (current) use of opiate analgesic 3 Van Overbeke Kiara. [address] [place] [address], [id number], [place]. tel:[phone] Consulting Provider: Lucas Talamantes [facility] [address], [address], [place], [address]. tel:[phone] ring Provider: Emir Espinal, [address] [place] [address], [id number]. tel:[phone] [facility], [address] [place] [address], [id number] , [place] [phone] [facility] [place] No Information 3 Jonah Craig. [address] [place] [address], [id number], [place]. tel:[phone] Referring Provider: Emir Espinal, [address] [place] [address], [id number]. tel:[phone] OFFICE/OUTPAT IENT VISIT, EST [facility], [address] [place] [address], [id number] , [place] [phone] [facility] [place] Back Pain (chief complaint) [...] therapeutic drug level monitoring 3 Jonah Craig. [address] [place] [address], [id number], [place]. tel:[phone] Consulting Provider: Lucas Talamantes, [facility] [address], [address], [place], [address]. tel:[phone] ring Provider: Emir Espinal, [address] [place] [address], [id number]. tel:[phone] [facility], [address] [place] [address], [id number] , [place] [phone] [facility] [place] Pain in right kneePain in left knee 3 Braeden Murcia. [address] [place] [address], [id number], [place]. tel:[phone] Referring Provider: Emir Espinal, [address] [place] [address], [id number]. tel:[phone] OFFICE VISIT, [facility] TELEMEDICINE [facility], [address] [place] [address], [id number] , [place] tel:[phone] [facility] [place] Back pain (chief complaint) Major depressive disorder, single episode, unspecifiedCh ronic migraine without aura, intractable, without status migrainosusSa croiliitis, not elsewhere classifiedOth er intervertebra l disc degeneration, lumbar regionOther muscle spasmPostlami nectomy syndrome, not elsewhere classifiedLon g term (current) use of opiate analgesicPain in right kneePain in left kneeDrug induced constipation 3 Jonah Craig. [address] [place] [address], [id number], [place]. tel:[phone] Consulting Provider: Lucas Talamantes [facility] [address], [address], [place], [address]. tel:[phone] ring Provider: Emir Espinal, [address] [place] [address], [address]. tel:[phone] OFFICE VISIT, [facility] TELEMEDICINE [facility], [address] [place] [address], [id number] , [place] tel:[phone] [facility] [place] Back Pain (chief complaint) Major depressive disorder, single episode, unspecifiedCh ronic migraine without aura, intractable, without status migrainosusSa croiliitis, not elsewhere classifiedOth er intervertebra l disc degeneration, lumbar regionOther muscle spasmPostlami nectomy syndrome, not elsewhere classifiedLon g term (current) use of opiate analgesic 3 Jonah Pastorberoberto carlos Kiara. [address] [place] [address], [id number], [place]. tel:[phone] Consulting Provider: Lucas Talamantes, [facility] [address], [address], [place], [address]. tel:[phone] OFFICE/OUTPAT IENT VISIT, [facility], [address] [place] [address], [id number] , [place] tel:[phone] [facility] [place] back pain (chief complaint) Major depressive disorder, single episode, unspecifiedCh ronic migraine without aura, intractable, without status migrainosusSa croiliitis, not elsewhere classifiedOth er intervertebra l disc degeneration, lumbar regionOther muscle spasmPostlami nectomy syndrome, not elsewhere classifiedLon g term (current) use of opiate analgesicEnco unter for therapeutic drug level monitoring 3 Jonah Craig. [address] [place] [address], [id number], [place]. tel:[phone] Consulting Provider: Lucas Talamantes, [facility] [address], [address], [place], [address]. tel:[phone] ring Provider: Emir Espinal, [address] [place] [address], [id number]. tel:[phone] [facility], [address] [place] [address], [id number] , [place] tel:[phone] [facility] [place] No Information 3 Jonah Craig. [address] [place] [address], [id number], [place]. tel:[phone] OFFICE VISIT, EST TELEMEDICINE [facility], [address] [place] [address], [id number] , [place] tel:[phone] [facility] [place] Back Pain (chief complaint) Major depressive disorder, single episode, unspecifiedCh ronic migraine without aura, intractable, without status migrainosusSa croiliitis, not elsewhere classifiedOth er intervertebra l disc degeneration, lumbar regionPostlam inectomy syndrome, not elsewhere classifiedLon g term (current) use of opiate analgesicOthe r muscle spasm 3 Jonah Craig. [address] [place] [address], [id number], [place]. tel:[phone] Consulting Provider: Lucas Talamantes [facility] [address], [address], [place], [address]. tel:[phone] OFFICE VISIT, EST TELEMEDICINE [facility], [address] [place] [address], [id number] , [place] tel:[phone] [facility] [place] Back Pain (chief complaint) Other intervertebra l disc degeneration, lumbar regionSacroil iitis, not elsewhere classifiedChr onic migraine without aura, intractable, without status migrainosusMa domitila depressive disorder, single episode, unspecifiedOt her muscle spasmPostlami nectomy syndrome, not elsewhere classifiedLon g term (current) use of opiate analgesic 3 Van Overbeke Kiara. [address] [place] [address], [id number], [place]. tel:[phone] Consulting Provider: Lucas Talamantes, [facility] [address], [address], [place], [address]. [phone] OFFICE/OUTPAT IENT VISIT, EST [facility], [address] [place] [address], [id number] , [place] [phone] [facility] [place] Back pain (chief complaint) Major depressive disorder, single episode, unspecifiedCh ronic migraine without aura, intractable, without status migrainosusSa croiliitis, not elsewhere classifiedOth er intervertebra l disc degeneration, lumbar regionOther muscle spasmPostlami nectomy syndrome, not elsewhere classifiedLon g term (current) use of opiate analgesicEnco unter for therapeutic drug level monitoring 2 Jonah Pastorberoberto carlos Kiara. [address] [place] [address], [id number], [place]. tel:[phone] Consulting Provider: Lucas Talamantes, [facility] [address], [address], [place], [address]. [phone] ring Provider: Emir Espinal, [address] [place] [address], [address]. tel:[phone] [facility], [address] [place] [address], [id number] , [place] [phone] [facility] [place] No Information 2 Jonah Wilmer Craig. [address] [place] [address], [id number], [place]. tel:[phone] Referring Provider: Emir Espinal, [address] [place] [address], [id number]. tel:[phone] OFFICE VISIT, [facility] TELEMEDICINE [facility], [address] [place] [address], [id number] , [place] tel:[phone] [facility] [place] Back pain (chief complaint) Major depressive disorder, single episode, unspecifiedCh ronic migraine without aura, intractable, without status migrainosusSa croiliitis, not elsewhere classifiedOth er intervertebra l disc degeneration, lumbar regionOther muscle spasmPostlami nectomy syndrome, not elsewhere classifiedLon g term (current) use of opiate analgesic Dec- 2 Jonah Craig. [address] [place] [address], [id number], [place]. tel:[phone] Consulting Provider: [facility] [address], [address], [place], [address]. tel:[phone] ring Provider: Emir Espinal, [address] [place] [address], [id number]. tel:[phone] OFFICE VISIT, [facility] TELEMEDICINE [facility], [address] [place] [address], [id number] , [place] tel:[phone] [facility] Back pain (chief complaint) Major depressive disorder, single episode, unspecifiedCh ronic migraine without aura, intractable, without status migrainosusSa croiliitis, not elsewhere classifiedOth er intervertebra l disc degeneration, lumbar regionPostlam inectomy syndrome, not elsewhere classifiedLon g term (current) use of opiate analgesicOthe r muscle spasm Nov- 2 Jonah Guillen Kiara. [address] [place] [address], [id number], [place]. tel:[phone] Consulting Provider: Lucas Talamantes [facility] [address], [address], [place], [address]. tel:[phone] OFFICE/OUTPAT IENT VISIT, [facility], [address] [place] [address], [id number] , [place] [phone] [facility] Back pain (chief complaint) Major depressive disorder, single episode, unspecifiedCh ronic migraine without aura, intractable, without status migrainosusSa croiliitis, not elsewhere classifiedOth er intervertebra l disc degeneration, lumbar regionPostlam inectomy syndrome, not elsewhere classifiedLon g term (current) use of opiate analgesicEnco unter for therapeutic drug level monitoring Sep-2 2 Van Overbeke Kiara. [address] [place] [address], [id number], [place]. tel:[phone] Consulting Provider: Lucas Talamantes [facility] [address], [address], [place], [address]. tel:[phone] ring Provider: Emir Espinal, [address] [place] [address], [id number]. tel:[phone] [facility], [address] [place] [address], [id number] , [place] [phone] [facility] [place] No Information Sep-2 2 Jonah Overbeke Kiara. [address] [place] [address], [id number], [place]. tel:[phone] OFFICE VISIT, EST TELEMEDICINE [facility], [address] [place] [address], [id number] , [place] [phone] [facility] Back Pain (chief complaint) Major depressive disorder, single episode, unspecifiedCh ronic migraine without aura, intractable, without status migrainosusSa croiliitis, not elsewhere classifiedOth er intervertebra l disc degeneration, lumbar regionPostlam inectomy syndrome, not elsewhere classifiedLon g term (current) use of opiate analgesic Sep-0 2 Keri Campos. [address], [place], [place], [id number], [place]. tel:[phone] Consulting Provider: [facility] [address], [address], [place], [address]. tel:[phone] ring Provider: Emir Espinal, [address] [place] [address], [id number]. tel:[phone] OFFICE VISIT, EST TELEMEDICINE [facility], [address] [place] [address], [id number] , [place] [phone] [facility] [place] Back pain (chief complaint) Chronic migraine without aura, intractable, without status migrainosusSa croiliitis, not elsewhere classifiedOth er intervertebra l disc degeneration, lumbar regionPostlam inectomy syndrome, not elsewhere classifiedLon g term (current) use of opiate analgesicMajo r depressive disorder, single episode, unspecified 2 Van Overbeke Kiara. [address] [place] [address], [id number], [place]. tel:[phone] Consulting Provider: Lucas Talamantes [facility] [address], [address], [place], [address]. tel:[phone] ring Provider: Emir Espinal, [address] [place] [address], [id number]. tel:[phone] OFFICE VISIT, EST TELEMEDICINE [facility], [address] [place] [address], [id number] , [place] tel:[phone] [facility] [place] back pain (chief complaint) Chronic migraine without aura, intractable, without status migrainosusSa croiliitis, not elsewhere classifiedOth er intervertebra l disc degeneration, lumbar regionPostlam inectomy syndrome, not elsewhere classifiedLon g term (current) use of opiate analgesic 2 Van Overbeke Kiara. [address] [place], [place], [id number], [place]. tel:[phone] Consulting Provider: Lucas Talamantes, [facility] [address], [address], [place], [address]. tel:[phone] [facility], [address] [place] [address], [id number] , [place] [phone] [facility] [place] No Information 2 Van Overbeke Kiara. [address] [place] [address], [id number], [place]. tel:[phone] Referring Provider: Emir Espinla, [address] [place] [address], [address]. tel:[phone] OFFICE/OUTPAT IENT VISIT, [facility], [address] [place] [address], [id number] , [place] tel:[phone] [facility] [place] Back Pain (chief complaint) Chronic migraine without aura, intractable, without status migrainosusSa croiliitis, not elsewhere classifiedOth er intervertebra l disc degeneration, lumbar regionPostlam inectomy syndrome, not elsewhere classifiedLon g term (current) use of opiate analgesicEnco unter for therapeutic drug level monitoring 2 Jonah Overberoberto carlos Kiara. [address] [place] [address], [id number], [place]. tel:[phone] Consulting Provider: Lucas Talamantes, [facility] [address], [address], [place], [address]. tel:[phone] ring Provider: Emir Espinal, [address] [place] [address], [id number]. tel:[phone] OFFICE VISIT, [facility] TELEMEDICINE [facility], [address] [place] [address], [id number] , [place] tel:[phone] [facility] [place] Back Pain (chief complaint) Chronic migraine without aura, intractable, without status migrainosusSa croiliitis, not elsewhere classifiedOth er intervertebra l disc degeneration, lumbar regionPostlam inectomy syndrome, not elsewhere classifiedLon g term (current) use of opiate analgesic 2 Jonah Overbeke Kiara. [address] [place] [address], [id number], [place]. tel:[phone] Consulting Provider: Lucas Talamantes, [facility] [address], [address], [place], [address]. tel:[phone] OFFICE VISIT, [facility] TELEMEDICINE [facility], [address] [place] [address], [id number] , [place] tel:[phone] [facility] [place] Back Pain (chief complaint)H eadache (chief complaint) Chronic migraine without aura, intractable, without status migrainosusSa croiliitis, not elsewhere classifiedOth er intervertebra l disc degeneration, lumbar regionPostlam inectomy syndrome, not elsewhere classifiedLon g term (current) use of opiate analgesic Apr-2 2 Van Overbeke Kiara. [address] [place] [address], [id number], [place]. tel:[phone] Consulting Provider: Lucas Talamantes, [facility] [address], [address], [place], [address]. tel:[phone] [facility], [address] [place] [address], [id number] , tel:[phone] [facility] [place] Chronic migraine without aura, intractable, without status migrainosus Apr-0 2 Ney Quinones. [address] [place] [address], [id number], [place]. tel:[phone] Referring Provider: Emir Espinal, [address] [place] [address], [address]. tel:[phone] OFFICE VISIT, EST TELEMEDICINE [facility], [address] [place] [address], [id number] , [place] tel:[phone] [facility] [place] Back Pain (chief complaint) Chronic migraine without aura, intractable, without status migrainosusOt her intervertebra l disc degeneration, lumbar regionLong term (current) use of opiate analgesicPost laminectomy syndrome, not elsewhere classifiedSac roiliitis, not elsewhere classified Mar- 2 Jonah Overbeke Kiara. [address] [place] [address], [id number], [place]. tel:[phone] Consulting Provider: Lucas Talamantes, [facility] [address], [address], [place], [address]. tel:[phone] ring Provider: Emir Espinal, [address] [place] [address], [id number]. tel:[phone] [facility], [address] [place] [address], [id number] , [place] tel:[phone] [facility] [place] No Information 2 Jonah Craig. [address] [place] [address], [id number], [place]. tel:[phone] OFFICE/OUTPAT IENT VISIT, EST [facility], [address] [place] [address], [id number] , [place] tel:[phone] [facility] [place] Back Pain (chief complaint) Other intervertebra l disc degeneration, lumbar regionLong term (current) use of opiate analgesicPost laminectomy syndrome, not elsewhere classifiedSac roiliitis, not elsewhere classifiedEnc ounter for therapeutic drug level monitoringEnc ounter for screening for other disorderChron ic migraine without aura, intractable, without status migrainosus 2 Jonah Craig. [address] [place] [address], [id number], [place]. tel:[phone] Consulting Provider: Lucas Talamantes, [facility] [address], [address], [place], [address]. tel:[phone] ring Provider: Emir Espinal, [address] [place] [address], [address]. tel:[phone] OFFICE VISIT, EST TELEMEDICINE [facility], [address] [place] [address], [id number] , [place] tel:[phone] [facility] [place] Back Pain (chief complaint) Other intervertebra l disc degeneration, lumbar regionLong term (current) use of opiate analgesicPost laminectomy syndrome, not elsewhere classifiedSac roiliitis, not elsewhere classified 2 Jonah Craig. [address] [place] [address], [id number], [place]. tel:[phone] Consulting Provider: Lucas Talamantes, [facility] [address], [address], [place], [address]. tel:[phone] OFFICE VISIT, EST TELEMEDICINE [facility], [address] [place] [address], [id number] , [place] [phone] [facility] [place] Back Pain (chief complaint) Other intervertebra l disc degeneration, lumbar regionLong term (current) use of opiate analgesicPost laminectomy syndrome, not elsewhere classifiedSac roiliitis, not elsewhere classified 1 Jonah Overbeke Kiara. [address] [place] [address], [id number], [place]. tel:[phone] Consulting Provider: Lucas Talamantes, [facility] [address], [address], [place], [address]. tel:[phone] OFFICE VISIT, EST TELEMEDICINE [facility], [address] [place] [address], [id number] , [place] [phone] [facility] [place] Back Pain (chief complaint) Other intervertebra l disc degeneration, lumbar regionLong term (current) use of opiate analgesicPost laminectomy syndrome, not elsewhere classifiedSac roiliitis, not elsewhere classified 1 Jonah Pastorberoberto carlos Kiara. [address] [place] [address], [id number], [place]. tel:[phone] Consulting Provider: Lucas Talamantes, [facility] [address], [address], [place], [address]. tel:[phone] ring Provider: Emir Espinal, [address] [place] [address], [address]. tel:[phone] OFFICE VISIT, EST TELEMEDICINE [facility], [address] [place] [address], [id number] , [place] [phone] [facility] [place] Back Pain (chief complaint) Other intervertebra l disc degeneration, lumbar regionLong term (current) use of opiate analgesicPost laminectomy syndrome, not elsewhere classifiedSac roiliitis, not elsewhere classified 1 Van Overbeke Kiara. [address] [place], [place], [id number], [place]. tel:[phone] Consulting Provider: Lucas Talamantes, [facility] [address], [address], [place], [address]. tel:[phone] OFFICE/OUTPAT IENT VISIT, EST [facility], [address] [place] [address], [id number] , [place] tel:[phone] [facility] Back Pain (chief complaint) Other intervertebra l disc degeneration, lumbar regionLong term (current) use of opiate analgesicPost laminectomy syndrome, not elsewhere classifiedSac roiliitis, not elsewhere classifiedEnc ounter for therapeutic drug level monitoring Oct- 1 Jonah Craig. [address] [place], [place], [id number], [place]. tel:[phone] Consulting Provider: Lucas Talamantes, [facility] [address], [address], [place], [address]. tel:[phone] ring Provider: Emir Espinal, [address] [place] [address], [id number]. tel:[phone] [facility], [address] [place] [address], [id number] , [place] tel:[phone] [facility] Encounter for therapeutic drug level monitoringLon g term (current) use of opiate analgesic Oct- 1 Jonah Craig. [address] [place], [place], [id number], [place]. tel:[phone] Referring Provider: Emir Espinal, [address] [place] [address], [id number]. tel:[phone] OFFICE VISIT, EST TELEMEDICINE [facility], [address] [place] [address], [id number] , [place] tel:[phone] [facility] Back Pain (chief complaint) group home (current) use of opiate analgesicPost laminectomy syndrome, not elsewhere classifiedOth er intervertebra l disc degeneration, lumbar region 1 Ney Quinones. [address] [place], [place], [id number], [place]. tel:[phone] Consulting Provider: Lucas Talamantes, [facility] [address] Prof Oliverosnic [address] [address], [place], [address]. tel:[phone] ring Provider: Emir Espinal, [address] [place] [address], [address]. tel:[phone] OFFICE VISIT, EST TELEMEDICINE [facility], [address] [place] [address], [id number] , [place] tel:[phone] [facility] Back Pain (chief complaint) group home (current) use of opiate analgesicPost laminectomy syndrome, not elsewhere classifiedSac roiliitis, not elsewhere classifiedOth er intervertebra l disc degeneration, lumbosacral region Aug- 1 Jonah Craig. [address] [place] [address], [id number], [place]. tel:[phone] Consulting Provider: Lucas Talamantes, [facility] [address] Carmel Mercado [address] [address], [place], [address]. tel:[phone] ring Provider: Emir Espinal, [address] [place] [address], [id number]. tel:[phone] [facility], [address] [place] [address], [id number] , [place] tel:[phone] [facility] Encounter for therapeutic drug level monitoringLon g term (current) use of opiate analgesic Jul- 1 Jonah Craig. [address] [place] [address], [id number], [place]. tel:[phone] Referring Provider: Emir Espinal, [address] [place] [address], [id number]. tel:[phone] OFFICE/OUTPAT IENT VISIT, EST [facility], [address] [place] [address], [id number] , [place] tel:[phone] [facility] Back Pain (chief complaint) group home (current) use of opiate analgesicPost laminectomy syndrome, not elsewhere classifiedSac roiliitis, not elsewhere classifiedOth er intervertebra l disc degeneration, lumbosacral regionParkview Health er for therapeutic drug level monitoring 1 Jonah Craig. [address] [place] [address], [id number], [place]. tel:[phone] Consulting Provider: Lucas Talamantes, [address] Prof Mercado [address] [address], [place], [address]. tel:[phone] ring Provider: Emir Espinal, [address] [place] [address], [address]. 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 [address] [place] [address], [id number], [place]. tel:[phone] Consulting Provider: Lucas Talamantes[address] Carmel Mercdao [address] [place] [address], [place], [address]. tel:[phone] ring Provider: Emir Espinal, [address] [place] [address], [id number]. tel:[phone] OFFICE VISIT, EST TELEMEDICINE [facility], [address] [place] [address], [id number] , [place] tel:[phone] [facility] Back Pain (chief complaint) Postlaminecto my syndrome, not elsewhere classifiedSac roiliitis, not elsewhere classifiedOth er intervertebra l disc degeneration, lumbosacral regionLong term (current) use of opiate analgesic May- 1 Jonah Craig. [address] [place] [address], [id number], [place]. tel:[phone] Consulting Provider: Lucas Talamantes, [address] [place] [address] Marlon [facility], [place], [address]. tel:[phone] ring Provider: Emir Espinal, [address] [place] [address], [id number]. tel:[phone] OFFICE VISIT, EST TELEMEDICINE [facility], [address] [place] [address], [id number] , [place] tel:[phone] [facility] Back Pain (chief complaint) Postlaminecto my syndrome, not elsewhere classifiedSac roiliitis, not elsewhere classifiedOth er intervertebra l disc degeneration, lumbosacral regionLong term (current) use of opiate analgesic Apr- 1 Van Darbybeke Kiara. [address] [place] [address], [id number], [place]. tel:[phone] Consulting Provider: Lucas Talamantes, [address] Prof Mercado [address] [place] [address], [place], [address]. tel:[phone] ring Provider: Emir Espinal, [address] [place] [address], [address]. tel:[phone] OFFICE VISIT, EST TELEMEDICINE [facility], [address] [place] [address], [id number] , [place] tel:[phone] [facility] [place] Back Pain (chief complaint) Postlaminecto my syndrome, not elsewhere classifiedSac roiliitis, not elsewhere classifiedOth er intervertebra l disc degeneration, lumbosacral regionLong term (current) use of opiate analgesic Mar- 1 Jonah Overberoberto carlos Craig. [address] [place] [address], [id number], [place]. tel:[phone] Consulting Provider: Lucas Talamantes, [address] E Prof Mercado [address] [place] [address], [place], [address]. tel:[phone] ring Provider: Emir Espinal, [address] [place] [address], [address]. 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 [address] [place] [address], [id number], [place]. tel:[phone] Consulting Provider: Lucas Talamantes [address] E Prof Mercado [address] [address], [place], [address]. tel:[phone] ring Provider: Emir Espinal, [address] [place] [address], [address]. tel:[phone] OFFICE VISIT, EST TELEMEDICINE [facility], [address] [place] [address], [id number] , [place] tel:[phone] [facility] Back Pain (chief complaint) group home (current) use of opiate analgesicPost laminectomy syndrome, not elsewhere classifiedSac roiliitis, not elsewhere classifiedOth er intervertebra l disc degeneration, lumbosacral region 0 Van Overbeke Kiara. [address] [place] [address], [id number], [place]. tel:[phone] Consulting Provider: Lucas Talamantes, [facility] [address] Prof Mercado [address] Marlon [facility], [place], [address]. tel:[phone] ring Provider: Emir Espinal, [address] [place] [address], [address]. 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 [address] [place] [address], [id number], [place]. tel:[phone] Referring Provider: Emir Espinal, [address] [place] [address], [address]. tel:[phone] OFFICE VISIT, [facility] TELEMEDICINE [facility], [address] [place] [address], [id number] , [place] tel:[phone] [facility] [place] Back Pain (chief complaint) group home (current) use of opiate analgesicPost laminectomy syndrome, not elsewhere classifiedSac roiliitis, not elsewhere classifiedOth er intervertebra l disc degeneration, lumbosacral region Oct- 0 Van Overbeke Kiara. [address] [place] [address], [id number], [place]. tel:[phone] Referring Provider: Emir Espinal, [address] [place] [address], [address]. tel:[phone] OFFICE VISIT, [facility], [address] [place] [address], [id number] , [place] [phone] [facility] Back Pain (chief complaint) group home (current) use of opiate analgesicPost laminectomy syndrome, not elsewhere classifiedSac roiliitis, not elsewhere classifiedOth er intervertebra l disc degeneration, lumbosacral region Sep-2 0 Van Overbeke Kiara. [address] [place] [address], [id number], [place]. tel:[phone] Referring Provider: Emir Espinal, [address] [place] [address], [address]. tel:[phone] OFFICE/OUTPAT IENT VISIT, [facility], [address] [place] [address], [id number] , [place] [phone] [facility] [place] Back Pain (chief complaint) group home (current) use of opiate analgesicPost laminectomy syndrome, not elsewhere classifiedSac roiliitis, not elsewhere classifiedOth er intervertebra l disc degeneration, lumbosacral region 0 Jonah Craig. [address] [place] [address], [id number], [place]. tel:[phone] Referring Provider: Emir Espinal, [address] [place] [address], [address]. tel:[phone] OFFICE VISIT, EST TELEMEDICINE [facility], [address] [place] [address], [id number] , [place] tel:[phone] [facility] Back Pain (chief complaint) group home (current) use of opiate analgesicPost laminectomy syndrome, not elsewhere classifiedSac roiliitis, not elsewhere classifiedOth er intervertebra l disc degeneration, lumbosacral region 0 Jonah Craig. [address] [place] [address], [id number], [place]. tel:[phone] Consulting Provider: Lucas Talamantes [facility], [facility] [place] [address] [facility] [address] [address], [place], [address]. tel:[phone] ring Provider: Emir Espinal, [address] [place] [address], [address]. 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 [address] [place] [address], [id number], [place]. tel:[phone] Referring Provider: Emir Espinal, [address] [place] [address], [address]. 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 [address] [place] [address], [id number], [place]. tel:[phone] Consulting Provider: Lucas AU, [address]ld[address] Marlon [facility], [place], [address]. tel:[phone] ring Provider: Emir Espinal, [address] [place] [address], [address]. tel:[phone] OFFICE VISIT, EST TELEMEDICINE [facility], [address] [place] [address], [id number] , [place] tel:[phone] [facility] Back Pain (chief complaint) group home (current) use of opiate analgesicPost laminectomy syndrome, not elsewhere classifiedSac roiliitis, not elsewhere classifiedOth er intervertebra l disc degeneration, lumbosacral region Apr-2 2-202 0 Jonah Craig. [address] [place] [address], [id number], [place]. tel:[phone] Consulting Provider: Lucas AU, [address] [place] [address], [place], [address]. tel:[phone] ring Provider: Emir Espinal, [address] [place] [address], [address]. 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 [address] [place], [place], [id number], [place]. tel:[phone] Consulting Provider: Lucas AU, [facility] [address] Prof eMrcado [facility] [address] [address], [place], [address]. tel:[phone] Provider: Emir Espinal, [address] [place] [address], [address]. tel:[phone] OFFICE/OUTPAT IENT VISIT, [facility], [address] [place] [address], [id number] , [place] tel:[phone] [facility] [place] Back Pain (chief complaint) group home (current) use of opiate analgesicEnco unter for therapeutic drug level monitoringPos tlaminectomy syndrome, not elsewhere classifiedSac roiliitis, not elsewhere classifiedOth er intervertebra l disc degeneration, lumbosacral region 0 Jonah Overbeke Kiara. [address] [place], [place], [id number], [place]. tel:[phone] Consulting Provider: Lucas AU, [facility] [address] E Prof Mercado [facility] [address] [address], [place], [address]. tel:[phone] [facility] Provider: Emir Espinal, [address] [place] [address], [address]. tel:[phone] OFFICE/OUTPAT IENT VISIT, [facility], [address] [place] [address], [id number] , [place] tel:[phone] [facility] [place] Back Pain (chief complaint) group home (current) use of opiate analgesicPost laminectomy syndrome, not elsewhere classifiedSac roiliitis, not elsewhere classifiedOth er intervertebra l disc degeneration, lumbosacral region 0 Van Overbeke Kiara. [address] [place] [address], [id number], [place]. tel:[phone] Consulting Provider: Lucas AU, [address], [place], [address]. tel:[phone] ring Provider: Emir Espinal, [address] [place] [address], [address]. tel:[phone] OFFICE/OUTPAT IENT VISIT, [facility], [address] [place] [address], [id number] , [place] [phone] [facility] [place] Back Pain (chief complaint) group home (current) use of opiate analgesicSacr oiliitis, not elsewhere classifiedOth er intervertebra l disc degeneration, lumbosacral regionPostlam inectomy syndrome, not elsewhere classified 0 9 Jonah Craig. [address] [place] [address], [id number], [place]. tel:[phone] Consulting Provider: Lucas AU, [address] [place] [address], [place], [address]. tel:[phone] ring Provider: Emir Espinal, [address] [place] [address], [address]. tel:[phone] OFFICE/OUTPAT IENT VISIT, [facility], [address] [place] [address], [id number] , [place] tel:[phone] [facility] Back Pain (chief complaint) group home (current) use of opiate analgesicLow back painSacroilii tis, not elsewhere classifiedPos tlaminectomy syndrome, not elsewhere classifiedOth er intervertebra l disc degeneration, lumbosacral region 9 Jonah Craig. [address] [place] [address], [id number], [place]. tel:[phone] Consulting Provider: Lucas AU, [address], [place], [address]. tel:[phone] ring Provider: Emir Espinal, [address] [place], [address]. tel:[phone] OFFICE/OUTPAT IENT VISIT, [facility], [address] [place] [address], [id number] , [place] tel:[phone] [facility] [place] Back Pain (chief complaint) group home (current) use of opiate analgesicLow back painSacroilii tis, not elsewhere classifiedOth er intervertebra l disc degeneration, lumbosacral regionPostlam inectomy syndrome, not elsewhere classified Van Overberoberto carlos Kiara. [address] [place], [place], [id number], [place]. tel:[phone] Consulting Provider: Lucas AU, [address] E Prof Mercado [address], [address]. tel:[phone] ring Provider: Emir Espinal, [address] [place] [address], [address]. tel:[phone] OFFICE/OUTPAT IENT VISIT, [facility], [address] [place] [address], [id number] , [place] tel:[phone] [facility] Back Pain (chief complaint) Postlaminecto my syndrome, not elsewhere classifiedOth er intervertebra l disc degeneration, lumbosacral regionSacroil iitis, not elsewhere classifiedLow back painLong term (current) use of opiate analgesicEnco unter for therapeutic drug level monitoring Jonah Overbeke Kiara. [address] [place] [address], [id number], [place]. tel:[phone] Consulting Provider: Lucas AU, [address] E Prof Merc[address], [address]. tel:[phone] ring Provider: Emir Espinal, [address] [place], [address]. tel:[phone] OFFICE/OUTPAT IENT VISIT, EST [facility], [address] [place], [place], [id number] , [place] tel:[phone] [facility] [place] Back Pain (chief complaint) Postlaminecto my syndrome, not elsewhere classifiedOth er intervertebra l disc degeneration, lumbosacral regionSacroil iitis, not elsewhere classifiedLow back painLong term (current) use of opiate analgesic Aug-3 Van Overbeke Kiara. [address] [place] [address], [id number], [place]. [phone] Consulting Provider: Lucas AU, [address] E Prof Mercado [address] [place] [address], [place], [address]. [phone] ring Provider: Emir Espinal, [address] [place] [address], [address]. [phone] OFFICE/OUTPAT IENT VISIT, [facility], [address] [place] [address], [id number] , [place] tel:[phone] [facility] Back Pain (chief complaint) Postlaminecto my syndrome, not elsewhere classifiedOth er intervertebra l disc degeneration, lumbosacral regionSacroil iitis, not elsewhere classifiedLow back painLong term (current) use of opiate analgesic Aug-0 Van Overbeke Kiara. [address] [place] [address], [id number], [place]. [phone] Consulting Provider: Lucas AU, [address] E Prof Mercado [address] [place] [address], [place], [address]. [phone] ring Provider: Emir Espinal, [address] [place] [address], [address]. [phone] OFFICE/OUTPAT IENT VISIT, [facility], [address] [place] [address], [id number] , [place] tel:[phone] [facility] [place] Back Pain (chief complaint) Postlaminecto my syndrome, not elsewhere classifiedOth er intervertebra l disc degeneration, lumbosacral regionSacroil iitis, not elsewhere classifiedLow back painLong term (current) use of opiate analgesic Jonah Craig. [address] [place] [address], [id number], [place]. tel:[phone] Consulting Provider: Lucas AU, [facility] [address]ld[address], [address]. tel:[phone] ring Provider: Emir Espinal, [address] [place] [address], [address]. tel:[phone] OFFICE/OUTPAT IENT VISIT, [facility], [address] [place] [address], [id number] , tel:[phone] [facility] [place] Back Pain (chief complaint) Postlaminecto my syndrome, not elsewhere classifiedOth er intervertebra l disc degeneration, lumbosacral regionSacroil iitis, not elsewhere classifiedLow back painLong term (current) use of opiate analgesicEnco unter for therapeutic drug level monitoring Jonah Craig. [address] [place] [address], [id number], [place]. tel:[phone] Consulting Provider: Lucas AU, [address] [address], [place], [address]. tel:[phone] ring Provider: Emir Espinal, [address] [place] [address], [address]. tel:[phone] OFFICE/OUTPAT IENT VISIT, EST [facility], [address] [place] [address], [id number] , [place] tel:[phone] [facility] [place] Back Pain (chief complaint) Postlaminecto my syndrome, not elsewhere classifiedOth er intervertebra l disc degeneration, lumbosacral regionSacroil iitis, not elsewhere classifiedLow back painLong term (current) use of opiate analgesic Miguel-0 2201 9 Van Overbeke Kiara. [address] [place] [address], [id number], [place]. tel:[phone] Consulting Provider: Lucas AU, [address] [facility] [address] [place] [address], [place], [address]. tel:[phone] ring Provider: Emir Espinal, [address] [place] [address], [address]. tel:[phone] OFFICE/OUTPAT IENT VISIT, [facility], [address] [place] [address], [id number] , [place] tel:[phone] [facility] Back Pain (chief complaint) Sacroiliitis, not elsewhere classifiedPos tlaminectomy syndrome, not elsewhere classifiedOth er intervertebra l disc degeneration, lumbosacral regionLow back painLong term (current) use of opiate analgesic Dec-0 3 8 Van Overbeke Kiara. [address] [place] [address], [id number], [place]. tel:[phone] Consulting Provider: Lucas AU, [address] [place] [address], [place], [address]. tel:[phone] ring Provider: Emir Espinal, [address] [place] [address], [address]. tel:[phone] OFFICE/OUTPAT IENT VISIT, EST [facility], [address] [place] [address], [id number] , [place] tel:[phone] [facility] [place] Back Pain (chief complaint) Sacroiliitis, not elsewhere classifiedPos tlaminectomy syndrome, not elsewhere classifiedOth er intervertebra l disc degeneration, lumbosacral regionLow back pain Nov-0 1201 8 Van Overbeke Kiara. [address] [place] [address], [id number], [place]. tel:[phone] Consulting Provider: Lucas AU, [address] Mar[address] [facility], [place], [address]. tel:[phone] ring Provider: Emir Espinal, [address] [place] [address], [address]. tel:[phone] OFFICE/OUTPAT IENT VISIT, [facility], [address] [place] [address], [id number] , [place] tel:[phone] [facility] Back Pain (chief complaint) Sacroiliitis, not elsewhere classifiedPos tlaminectomy syndrome, not elsewhere classifiedOth er intervertebra l disc degeneration, lumbosacral regionLow back pain Nov-0 1 8 Van Overbeke Kiara. [address] [place] [address], [id number], [place]. tel:[phone] Consulting Provider: Lucas AU, [address] [place] [address], [place], [address]. tel:[phone] Provider: Emir Espinal, [address] [place] [address], [address]. tel:[phone] OFFICE/OUTPAT IENT VISIT, [facility], [address] [place] [address], [id number] , [place] tel:[phone] [facility] Back Pain (chief complaint) Sacroiliitis, not elsewhere classifiedPos tlaminectomy syndrome, not elsewhere classifiedOth er intervertebra l disc degeneration, lumbosacral regionLow back pain Sep-0 8 Jonah Overberoberto carlos Kiara. [address] [place] [address], [id number], [place]. tel:[phone] Consulting Provider: Lucas AU, [address] Marlon [facility], [place], [address]. tel:[phone] ring Provider: Emir Espinal, [address] [place] [address], [address]. tel:[phone] OFFICE/OUTPAT IENT VISIT, EST [facility], [address] [place] [address], [id number] , [place] [phone] [facility] [place] Back Pain (chief complaint) Sacroiliitis, not elsewhere classifiedPos tlaminectomy syndrome, not elsewhere classifiedLow back painOther intervertebra l disc degeneration, lumbosacral region Clifford-0 6-201 8 Van Overbeke Kiara. [address] [place] [address], [id number], [place]. tel:[phone] Consulting Provider: Lucas AU, [address] Prof [address] [address], [place], [address]. tel:[phone] ring Provider: Emir Espinal, [address] [place] [address], [address]. tel:[phone] OFFICE/OUTPAT IENT VISIT, [facility], [address] [place] [address], [id number] , [place] [phone] [facility] Back Pain (chief complaint) Sacroiliitis, not elsewhere classifiedPos tlaminectomy syndrome, not elsewhere classifiedLow back painOther intervertebra l disc degeneration, lumbosacral region Apr-0 6-201 8 Van Overbeke Kiara. [address] [place] [address], [id number], [place]. tel:[phone] Consulting Provider: Lucas AU, [facility] [address] E Prof Mercado [address] [place] [address], [place], [address]. tel:[phone] ring Provider: Emir Espinal, [address] [place] [address], [address]. tel:[phone] OFFICE/OUTPAT IENT VISIT, [facility], [address] [place] [address], [id number] , [place] tel:[phone] [facility] [place] Back Pain (chief complaint) Postlaminecto my syndrome, not elsewhere classifiedLow back painSacroilii tis, not elsewhere classified Fe Jonah Overbeke Kiara. [address] [place] [address], [id number], [place]. tel:[phone] Consulting Provider: Lucas AU, [facility] [place] [facility], [facility] [address] [facility] [address], [place], [address]. tel:[phone] ring Provider: Emir Espinal, [address] [place] [address], [address]. tel:[phone] OFFICE/OUTPAT IENT VISIT, [facility], [address] [place] [address], [id number] , [place] [phone] [facility] [place] Back Pain (chief complaint) Postlaminecto my syndrome, not elsewhere classifiedSac roiliitis, not elsewhere classifiedOth er intervertebra l disc degeneration, lumbosacral region Jonah Craig. [address] [place] [address], [id number], [place]. tel:[phone] Referring Provider: Emir Espinal, [address] [place] [address], [address]. tel:[phone] OFFICE/OUTPAT IENT VISIT, [facility], [address] [place] [address], [id number] , [place] [phone] [facility] [place] Back Pain (chief complaint) Postlaminecto my syndrome, not elsewhere classifiedSac roiliitis, not elsewhere classifiedOth er intervertebra l disc degeneration, lumbosacral region 7 Jonah Overberoberto carlos Huertase. [address] [place] [address], [id number], [place]. tel:[phone] Referring Provider: Emir Espinal, [address] [place] [address], [address]. tel:[phone] OFFICE/OUTPAT IENT VISIT, [facility], [address] [place] [address], [id number] , [place] tel:[phone] [facility] [place] Back Pain (chief complaint) Postlaminecto my syndrome, not elsewhere classifiedSac roiliitis, not elsewhere classifiedOth er intervertebra l disc degeneration, lumbosacral region Jonah Craig. [address] [place] [address], [id number], [place]. tel:[phone] Consulting Provider: Lucas AU, [facility] [place] [facility], [facility] [address] [facility] [address], [place], [address]. tel:[phone] ring Provider: Emir Espinal, [address] [place] [address], [address]. tel:[phone] OFFICE/OUTPAT IENT VISIT, EST [facility], [address] [place] [address], [id number] , [place] tel:[phone] [facility] [place] Back Pain (chief complaint) Postlaminecto my syndrome, not elsewhere classifiedOth er intervertebra l disc degeneration, lumbosacral regionSacroil iitis, not elsewhere classifiedLon g term (current) use of opiate analgesic Jonah Craig. [address] [place] [address], [id number], [place]. tel:[phone] Referring Provider: Emir Espinal, [address] [place] [address], [address]. tel:[phone] OFFICE/OUTPAT IENT VISIT, EST [facility], [address] [place] [address], [id number] , [place] tel:[phone] [facility] [place] Back Pain (chief complaint) Postlaminecto my syndrome, not elsewhere classifiedOth er intervertebra l disc degeneration, lumbosacral regionSacroil iitis, not elsewhere classified 7 Ney Quinones. [address] [place] [address], [id number], [place]. tel:[phone] Consulting Provider: Lucas AU, [facility] [address], [place], [address]. tel:[phone] ring Provider: Emir Espinal, [address] [place] [address], [address]. tel:[phone] OFFICE/OUTPAT IENT VISIT, EST [facility], [address] [place] [address], [id number] , [place] tel:[phone] [facility] [place] Back Pain (chief complaint) Postlaminecto my syndrome, not elsewhere classifiedOth er intervertebra l disc degeneration, lumbosacral region 7 Jonah Craig. [address] [place] [address], [id number], [place]. tel:[phone] Referring Provider: Emir Espinal, [address] [place] [address], [address]. tel:[phone] OFFICE/OUTPAT IENT VISIT, [facility], [address] [place] [address], [id number] , [place] [phone] [facility] [place] Back Pain (chief complaint) Postlaminecto my syndrome, not elsewhere classifiedOth er intervertebra l disc degeneration, lumbosacral region 7 Ney Quinones. [address] [place] [address], [id number], [place]. tel:[phone] Consulting Provider: Lucas AU, [facility] [address] [facility] [address], [place], [address]. tel:[phone] ring Provider: Emir Espinal, [address] [place] [address], [address]. tel:[phone] OFFICE/OUTPAT IENT VISIT, [facility], [address] [place] [address], [id number] , [place] tel:[phone] [facility] [place] low back pain (chief complaint) Postlaminecto my syndrome, not elsewhere classifiedLow back pain Ney Stacie. [address] [place] [address], [id number], [place]. tel:[phone] Consulting Provider: Lucas AU, [facility] [address], [place], [address]. tel:[phone] ring Provider: Emir Espinal, [address] [place] [address], [address]. tel:[phone] OFFICE/OUTPAT IENT VISIT, [facility], [address] [place] [address], [id number] , [place] tel:[phone] [facility] low back pain (chief complaint) Low back painPostlamin ectomy syndrome, not elsewhere classified Ney Stacie. [address] [place] [address], [id number], [place]. tel:[phone] Referring Provider: Emir Espinal, [address] [place] [address], [address]. tel:[phone] OFFICE/OUTPAT IENT VISIT, [facility], [address] [place] [address], [id number] , [place] tel:[phone] [facility] low back pain (chief complaint) Low back painPostlamin ectomy syndrome, not elsewhere classified Ney Stacie. [address] [place] [address], [id number], [place]. tel:[phone] Consulting Provider: Lucas AU, [address] Prof Mercado [address], [place], [address]. tel:[phone] ring Provider: Emir Espinal, [address] [place] [address], [address]. tel:[phone] OFFICE/OUTPAT IENT VISIT, [facility], [address] [place] [address], [id number] , [place] tel:[phone] [facility] [place] Back Pain (chief complaint) Postlaminecto my syndrome, not elsewhere classified Ney Stacie. [address] [place], [place], [id number], [place]. tel:[phone] Consulting Provider: Lucas AU, [address] Prof Merc[address] [place] [address], [place], [address]. tel:[phone] ring Provider: Emir Espinal, [address] [place] [address], [address]. tel:[phone] OFFICE/OUTPAT IENT VISIT, [facility], [address] [place] [address], [id number] , [place] [phone] [facility] [place] Back Pain (chief complaint) Postlaminecto my syndrome, not elsewhere classifiedLon g term (current) use of opiate analgesic Ever Medina. [address] [place], [id number], [place]. tel:[phone] Consulting Provider: Lucas AU, [address] [place] [address], [place], [address]. tel:[phone] ring Provider: Emir Espinal, [address] [place] [address], [address]. tel:[phone] OFFICE/OUTPAT IENT VISIT, EST [facility], [address] [place], [place], [id number] , [place] [phone] [facility] [place] low back pain (chief complaint) Low back painPostlamin ectomy syndrome, not elsewhere classified Ney Quinones. [address] [place], [place], [id number], [place]. tel:[phone] Consulting Provider: Lucas AU, [address] Prof Mercado [address], [place], [address]. tel:[phone] [facility] Provider: Emir Espinal, [address] [place] [address], [address]. tel:[phone] OFFICE/OUTPAT IENT VISIT, EST [facility], [address] [place], [place], [id number] , [place] [phone] [facility] [place] low back pain (chief complaint) Low back painPostlamin ectomy syndrome, not elsewhere classified 6 Ney Stacie. [address] [place], [place], [id number], [place]. tel:[phone] Consulting Provider: Lucas AU, [address] [place] [address], [place], [address]. [phone] ring Provider: Emir Espinal, [address] [place] [address], [address]. [phone] OFFICE/OUTPAT IENT VISIT, [facility], [address] [place] [address], [id number] , [place] [phone] [facility] ([facility]) Low back painPostlamin ectomy syndrome, not elsewhere classified 6 Ney Stacie. [address] [place], [place], [id number], [place]. tel:[phone] Consulting Provider: Lucas AU, [address] [place] [address], [place], [address]. tel:[phone] ring Provider: Emir Espinal, [address] [place] [address], [address]. tel:[phone] OFFICE/OUTPAT IENT VISIT, [facility], [address] [place], [place], [id number] , [place] [phone] [facility] [place] low back pain (chief complaint) Other cervical disc degeneration, high cervical regionLow back painPostlamin ectomy syndrome, not elsewhere classified 6 Ney Quinones. [address] [place] [address], [id number], [place]. tel:[phone] Consulting Provider: Lucas AU, [address] Jess Humphreys [facility] [address], [place], [address]. tel:[phone] ring Provider: Emir Espinal, [address] [place] [address], [address]. tel:[phone] OFFICE/OUTPAT IENT VISIT, [facility], [address] [place] [address], [id number] , [place] tel:[phone] [facility] [place] Neck pain (chief complaint)l ow back pain (chief complaint) Other cervical disc degeneration, high cervical regionLow back painPostlamin ectomy syndrome, not elsewhere classified 6 Ney Stacie. [address] [place] [address], [id number], [place]. tel:[phone] Consulting Provider: Lucas AU, [address] Jess Humphreys [place] [address], [place], [address]. tel:[phone] ring Provider: Emir Espinal, [address] [place] [address], [address]. tel:[phone] OFFICE/OUTPAT IENT VISIT, [facility], [address] [place] [address], [id number] , [place] tel:[phone] [facility] [place] low back pain (chief complaint) Postlaminecto my syndrome, not elsewhere classifiedLow back painLong term (current) use of opiate analgesic Sep-0 6 Yasir Campos. [address] [place] [address], [id number], [place]. tel:[phone] Consulting Provider: Lucas AU, [address], [place], [address]. tel:[phone] ring Provider: Emir Espinal, [address] [place] [address], [address]. tel:[phone] OFFICE/OUTPAT IENT VISIT, EST [facility], [address] [place] [address], [id number] , [place] [phone] [facility] [place] low back pain (chief complaint) Postlaminecto my syndrome, not elsewhere classifiedLow back pain 6 Yasir Beth. [address] [place] [address], [id number], [place]. tel:[phone] Referring Provider: Emir Espinal, [address] [place] [address], [address]. tel:[phone] OFFICE/OUTPAT IENT VISIT, [facility], [address] [place] [address], [id number] , [place] [phone] [facility] [place] low back pain (chief complaint) Postlaminecto my syndrome, not elsewhere classifiedLow back pain 6 Yasir Campos. [address] [place] [address], [id number], [place]. tel:[phone] Consulting Provider: Lucas Talamantes PAC, [facility] [address] Beto Merc[address] [place] [address], [place], [address]. tel:[phone] ring Provider: Emir Espinal, [address] [place] [address], [address]. tel:[phone] OFFICE/OUTPAT IENT VISIT, [facility], [address] [place] [address], [id number] , [place] tel:[phone] [facility] [place] low back pain (chief complaint) Low back painPostlamin ectomy syndrome, not elsewhere classified 6 Ney Stacie. [address] [place] [address], [id number], [place]. tel:[phone] Consulting Provider: Lucas AU, [facility] [address], [place], [address]. tel:[phone] ring Provider: Emir Espinal, [address] [place] [address], [address]. tel:[phone] OFFICE/OUTPAT IENT VISIT, [facility], [address] [place] [address], [id number] , [place] tel:[phone] [facility] low back pain (chief complaint) Low back painPostlamin ectomy syndrome, not elsewhere classified Ney Quinones. [address] [place] [address], [id number], [place]. tel:[phone] Consulting Provider: Lucas AU, [facility] [address] [place] [address], [place], [address]. tel:[phone] Provider: Emir Espinal, [address] [place] [address], [address]. tel:[phone] OFFICE/OUTPAT IENT VISIT, [facility], [address] [place] [address], [id number] , [place] tel:[phone] [facility] low back pain (chief complaint) Postlaminecto my syndrome, not elsewhere classifiedLow back pain Yasir Campos. [address] [place] [address], [id number], [place]. tel:[phone] Consulting Provider: Lucas AU, [facility] [address] [place] [address], [place], [address]. tel:[phone] ring Provider: Emir Espinal, [address] [place] [address], [address]. tel:[phone] OFFICE/OUTPAT IENT VISIT, [facility], [address] [place] [address], [id number] , [place] tel:[phone] [facility] low back pain (chief complaint) Low back painPostlamin ectomy syndrome, not elsewhere classified 6 Ney Stacie. [address] [place], [place], [id number], [place]. tel:[phone] Consulting Provider: Lucas AU, [facility] [address], [place], [address]. tel:[phone] ring Provider: Emir Espinal, [address] [place] [address], [address]. tel:[phone] OFFICE/OUTPAT IENT VISIT, [facility], [address] [place] [address], [id number] , [place] tel:[phone] [facility] low back pain (chief complaint) Low back pain 6 Ney Stacie. [address] [place], [place], [id number], [place]. tel:[phone] Consulting Provider: Lucas AU, [address], [place], [address]. tel:[phone] ring Provider: Emir Espinal, [address] [place] [address], [address]. tel:[phone] OFFICE/OUTPAT IENT VISIT, [facility], [address] [place] [address], [id number] , [place] tel:[phone] [facility] low back pain (chief complaint) Low back painPostlamin ectomy syndrome, not elsewhere classified 6 Ney Stacie. [address] [place] [address], [id number], [place]. tel:[phone] Consulting Provider: Lucas AU, [facility] [address], [place], [address]. tel:[phone] ring Provider: Emir Espinal, [address] [place] [address], [address]. [phone] OFFICE/OUTPAT IENT VISIT, EST [facility], [address] [place], [place], [id number] , [place] tel:[phone] [facility] [place] low back pain (chief complaint) Low back painPostlamin ectomy syndrome, not elsewhere classified 5 Ney Stacie. [address] [place], [place], [id number], [place]. tel:[phone] Consulting Provider: Lucas AU, [address], [address]. [phone] Provider: Emir Espinal, [address] [place] [address], [address]. [phone] OFFICE/OUTPAT IENT VISIT, [facility], [address] [place] [address], [id number] , [place] [phone] [facility] [place] low back pain (chief complaint) Trochanteric bursitis, right hipTrochanter ic bursitis, left hipLow back painPostlamin ectomy syndrome, not elsewhere classified 5 Ney Stacie. [address] [place], [place], [id number], [place]. tel:[phone] Consulting Provider: Lucas AU, [facility] [address] [place] [address], [place], [address]. tel:[phone] ring Provider: Emir Espinal, [address] [place] [address], [address]. tel:[phone] OFFICE/OUTPAT IENT VISIT, [facility], [address] [place] [address], [id number] , [place] tel:[phone] [facility] low back pain (chief complaint) Low back painPostlamin ectomy syndrome, not elsewhere classified 5 Neydarrel Quinones. [address] [place] [address], [id number], [place]. tel:[phone] Consulting Provider: Lucas AU, [facility] [address], [place], [address]. tel:[phone] ring Provider: Emir Espinal, [address] [place] [address], [address]. tel:[phone] OFFICE/OUTPAT IENT VISIT, [facility], [address] [place] [address], [id number] , [place] tel:[phone] [facility] low back pain (chief complaint) LumbagoPostla minectomy syndrome of lumbar region Sep-2 - 5 Ney Quinones. [address] [place] [address], [id number], [place]. tel:[phone] Consulting Provider: Lucas AU, [address] [facility], [place], [address]. tel:[phone] ring Provider: Emir Espinal, [address] [place] [address], [address]. tel:[phone] OFFICE/OUTPAT IENT VISIT, [facility], [address] [place] [address], [id number] , [place] tel:[phone] [facility] low back pain (chief complaint) LumbagoPostla minectomy syndrome of lumbar regionEncount er for current senior living use of high risk medication Sep-0 3-201 5 Ney Stacie. [address] [place] [address], [id number], [place]. tel:[phone] Consulting Provider: Lucas AU, [facility] [address], [place], [address]. tel:[phone] ring Provider: Emir Espinal, [address] [place] [address], [address]. tel:[phone] OFFICE/OUTPAT IENT VISIT, [facility], [address] [place] [address], [id number] , [place] tel:[phone] [facility]) LumbagoPostla minectomy syndrome of lumbar region 5 Ney Quinones. [address] [place] [address], [id number], [place]. tel:[phone] Consulting Provider: Lucas AU, [address], [address]. tel:[phone] ring Provider: Emir Espinal, [address] [place] [address], [address]. tel:[phone] OFFICE/OUTPAT IENT VISIT, [facility], [address] [place] [address], [id number] , [place] tel:[phone] [facility]) Lumbar failed back surgery syndrome 5 No Information Consulting Provider: Lucas AU, [address] [address], [place], [address]. tel:[phone] ring Provider: Emir Espinal, [address] [place] [address], [address]. tel:[phone] OFFICE/OUTPAT IENT VISIT, [facility], [address] [place] [address], [id number] , [place] tel:[phone] [facility] Back Pain (chief complaint) Lumbar failed back surgery syndromeEncou nter for current salvage determiner use of high risk medication No Information Referring Provider: Emir Espinal, [address] [place] [address], [address]. tel:[phone] OFFICE/OUTPAT IENT VISIT, [facility], [address] [place], [place], [id number] , [place] tel:[phone] [facility] [place] low back pain (chief complaint) Lumbar failed back surgery syndrome No Information Referring Provider: Emir Espinal, [address] [place], [address]. tel:[phone] OFFICE/OUTPAT IENT VISIT, [facility], [address] [place], [place], [id number] , [place] tel:[phone] [facility] [place] Back Pain (chief complaint) Lumbar failed back surgery syndromeEncou nter for current senior living use of high risk medication No Information Referring Provider: Emir Espinal, [address] [place], [address]. tel:[phone] Family History Family Member Type Diagnosis Age At Onset No Information Payers Payer name Insurance type Covered green party ID Authoriza tiflaco(s) [employer] [id number] Social History Type Description Quantity Date Captured [...] vaccine ( 1st). Due on due Goal OLIVE PICKER Paperwork. Due on due Goal ALT (SGPT). [...] C scre ening. Due on due Goal STULL HEWER Scanned. Due on due Goal Update Social Hi story. Due on due Goal OARS. Due on due Goal UDT. Due on due Goal Medication Recon ciliation. Due on due Goal Unhealthy drug u se screening. Due on due Goal STULL HEWER Scanned. Due on due Goal Order Annual [...] C scre ening. Due on due Goal OLIVE PICKER Paperwork. Due on due Goal Review Allergy [...] due Goal HPV. Due on due Goal OLIVE PICKER Paperwork. Due on due Goal Hepatitis C scre ening. Due on due Goal Order Annual PT. Due on due Goal Tobacco screening. Due on due Goal Creatinine. Due on due Goal Update Social Hi story. Due on due Goal PHQ-9. Due on du e Goal AST (SGOT). Due on due Goal FIT. Due on due Goal Weight. Due on d ue Goal STULL HEWER Scanned. Due on due Goal Review Allergy List. Due on due Goal ALT (SGPT). Due on due Goal CT-Colonography. Due on due Goal Unhealthy drug u se screening. Due on due Goal Order Annual PT. Due on due Goal Creatinine. Due on due Goal UDT. Due on due Goal AST (SGOT). Due on due Goal STULL HEWER Scanned. Due on due Goal ALT (SGPT). Due on due Goal OARS. Due on due Goal OLIVE PICKER Paperwork. Due on due Goal Height. Due [...] due Goal UDT. Due on due Goal STULL HEWER Scanned. Due on due Goal OARS. Due [...] Order Annual PT. Due on due Goal OLIVE PICKER Paperwork. Due on due Goal ALT (SGPT). [...] C scre ening. Due on due Goal STULL HEWER Scanned. Due on due Goal Update Social Hi story. Due on due Goal Creatinine. Due on due Goal Order Annual PT. Due on due Goal Medication Recon ciliation. Due on due Goal OLIVE PICKER Paperwork. Due on due Goal Zoster vaccine ( 1st). Due on due Goal Height. Due on d ue Goal Lipid panel. Due on due Goal OARS. Due on due Goal HPV. Due on due Goal PHQ-9. Due on du e Goal Lifestyle education regardin g diet completed Goal Creatinine. Due on due Goal ALT (SGPT). Due on due Goal STULL HEWER Scanned. Due on due Goal AST (SGOT). Due on due Goal Order Annual PT. Due on due Goal OLIVE PICKER Paperwork. Due on due Goal Tobacco Use. [...] Goal ALT (SGPT). Due on due Goal OLIVE PICKER Paperwork. Due on due Goal Order Annual PT. Due on due Goal STULL HEWER Scanned. Due on due Goal AST (SGOT). [...] C scre ening. Due on due Goal OLIVE PICKER Paperwork. Due on due Goal Lipid panel. Due on due Goal OARS. Due on due Goal AST (SGOT). Due on due Goal STULL HEWER Scanned. Due on due Goal UDT. Due [...] Goal AST (SGOT). Due on due Goal STULL HEWER Scanned. Due on due Goal OLIVE PICKER Paperwork. Due on due Goal ALT (SGPT). [...] Goal Weight. Due on d ue Goal STULL HEWER Scanned. Due on due Goal Lipid panel. Due on due Goal HPV. Due on due Goal Unhealthy drug u se screening. Due on due Goal Hepatitis C scre ening. Due on due Goal Zoster vaccine ( 1st). Due on due Goal OLIVE PICKER Paperwork. Due on due Goal Medication Recon [...] Goal Weight. Due on d ue Goal OLIVE PICKER Paperwork. Due on due Goal STULL HEWER Scanned. Due on due Goal Hepatitis C [...] due Goal UDT. Due on due Goal STULL HEWER Scanned. Due on due Goal AST (SGOT). Due on due Goal Tobacco Use. Due on due Goal ALT (SGPT). Due on due Goal FIT-DNA. Due on due Goal Review Allergy List. Due on due Goal Hepatitis C scre ening. Due on due Goal Creatinine. Due on due Goal OARS. Due on due Goal OLIVE PICKER Paperwork. Due on due Goal FIT. Due on due Goal Update Social Hi story. Due on due Goal Lipid panel. Due on due Goal PHQ-9. Due on du e Goal OARS. Due on due Goal ALT (SGPT). Due on due Goal Creatinine. Due on due Goal UDT. Due on due Goal AST (SGOT). Due on due Goal OLIVE PICKER Paperwork. Due on due Goal Order Annual PT. Due on due Goal STULL HEWER Scanned. Due on due Goal CT-Colonography. Due [...] Goal ALT (SGPT). Due on due Goal STULL HEWER Scanned. Due on due Goal Creatinine. Due on due Goal OARS. Due on due Goal Update Social Hi story. Due on due Goal UDT. Due on due Goal FIT. Due on due Goal PHQ-9. Due on du e Goal CT-Colonography. Due on due Goal Tobacco Use. Due on due Goal Order Annual PT. Due on due Goal AST (SGOT). Due on due Goal OLIVE PICKER Paperwork. Due on due Goal Height. Due [...] Goal ALT (SGPT). Due on due Goal OLIVE PICKER Paperwork. Due on due Goal HPV. Due on due Goal OARS. Due on due Goal UDT. Due on due Goal FIT. Due on due Goal STULL HEWER Scanned. Due on due Goal PHQ-9. Due [...] Goal Weight. Due on d ue Goal STULL HEWER Scanned. Due on due Goal OLIVE PICKER Paperwork. Due on due Goal Medication Recon [...] Medication Recon ciliation. Due on due Goal OLIVE PICKER Paperwork. Due on due Goal PHQ-9. Due on du e Goal FIT-DNA. Due on due Goal STULL HEWER Scanned. Due on due Goal CT-Colonography. Due [...] Goal Tobacco Use. Due on due Goal OLIVE PICKER Paperwork. Due on due Goal Lipid panel. Due on due Goal Creatinine. Due on due Goal Height. Due on d ue Goal UDT. Due on due Goal ALT (SGPT). Due on due Goal Order Annual PT. Due on due Goal STULL HEWER Scanned. Due on due Goal Unhealthy drug [...] Goal Weight. Due on d ue Goal STULL HEWER Scanned. Due on due Goal HPV. Due [...] Goal Height. Due on d ue Goal OLIVE PICKER Paperwork. Due on due Goal Review Allergy List. Due on due Goal Zoster vaccine ( ). Due on due Goal FIT-DNA. Due on due Goal Order Annual PT. Due on due Goal UDT. Due on due Goal Height. Due on d ue Goal OLIVE PICKER Paperwork. Due on due Goal FIT. Due on due Goal OARS. Due on due Goal Tobacco Use. Due on due Goal STULL HEWER Scanned. Due on due Goal Zoster vaccine [...] Order Annual PT. Due on due Goal OLIVE PICKER Paperwork. Due on due Goal Creatinine. Due on due Goal AST (SGOT). Due on due Goal ALT (SGPT). Due on due Goal STULL HEWER Scanned. Due on due Goal FIT. Due [...] Goal ALT (SGPT). Due on due Goal STULL HEWER Scanned. Due on due Goal Update Social Hi story. Due on due Goal Creatinine. Due on due Goal OLIVE PICKER Paperwork. Due on due Goal Medication Recon [...] Goal Tobacco Use. Due on due Goal OLIVE PICKER Paperwork. Due on due Goal STULL HEWER Scanned. Due on due Goal Medication Recon [...] Review Allergy List. Due on due Goal STULL HEWER Scanned. Due on due Goal UDT. Due on due Goal CT-Colonography. Due on due Goal OLIVE PICKER Paperwork. Due on due Goal OARS. Due [...] Goal Lipid panel. Due on due Goal OLIVE PICKER Paperwork. Due on due Goal Order Annual PT. Due on due Goal STULL HEWER Scanned. Due on due Goal FIT-DNA. Due [...] due Goal OARS. Due on due Goal STULL HEWER Scanned. Due on due Goal PHQ-9. Due on du e Goal Medication Recon ciliation. Due on due Goal AST (SGOT). Due on due Goal OLIVE PICKER Paperwork. Due on due Goal Hepatitis C [...] due Goal UDT. Due on due Goal STULL HEWER Scanned. Due on due Goal FIT. Due [...] Order Annual PT. Due on due Goal OLIVE PICKER Paperwork. Due on due Goal Creatinine. Due [...] due Goal FIT-DNA. Due on due Goal STULL HEWER Scanned. Due on due Goal OLIVE PICKER Paperwork. Due on due Goal Review Allergy [...] Goal Weight. Due on d ue Goal OLIVE PICKER Paperwork. Due on due Goal STULL HEWER Scanned. Due on due Goal ALT (SGPT). [...] due Goal Creatinine. Due on due Goal OLIVE PICKER Paperwork. Due on due Goal AST (SGOT). Due on due Goal UDT. Due on due Goal OARS. Due on due Goal PHQ-9. Due on du e Goal HPV. Due on due Goal STULL HEWER Scanned. Due on due Goal Unhealthy drug [...] Goal Height. Due on d ue Goal STULL HEWER Scanned. Due on due Goal Review Allergy [...] Goal Lipid panel. Due on due Goal OLIVE PICKER Paperwork. Due on due Goal Unhealthy drug u se screening. Due on due Goal FIT-DNA. Due on due Goal Height. Due on d ue Goal Hepatitis C scre ening. Due on due Goal Weight. Due on d ue Goal FIT. Due on due Goal CT-Colonography. Due on due Goal OLIVE PICKER Paperwork. Due on due Goal Review Allergy [...] due Goal Creatinine. Due on due Goal STULL HEWER Scanned. Due on due Goal Order Annual PT. Due on due Goal PHQ-9. Due on du e Goal STULL HEWER Scanned. Due on due Goal Creatinine. Due on due Goal UDT. Due on due Goal ALT (SGPT). Due on due Goal OARS. Due on due Goal AST (SGOT). Due on due Goal OLIVE PICKER Paperwork. Due on due Goal Order Annual [...] due Goal OARS. Due on due Goal STULL HEWER Scanned. Due on due Goal Height. Due on d ue Goal Lipid panel. Due on due Goal FIT. Due on due Goal Order Annual PT. Due on due Goal OLIVE PICKER Paperwork. Due on due Goal Tobacco Use. Due on due Goal Review Allergy List. Due on due Goal Creatinine. Due on due Goal Weight. Due on d ue Goal Height. Due on d ue Goal Creatinine. Due on due Goal FIT-DNA. Due on due Goal STULL HEWER Scanned. Due on due Goal Order Annual PT. Due on due Goal ALT (SGPT). Due on due Goal HPV. Due on due Goal OARS. Due on due Goal UDT. Due on due Goal OLIVE PICKER Paperwork. Due on due Goal AST (SGOT). [...] Goal AST (SGOT). Due on due Goal OLIVE PICKER Paperwork. Due on due Goal Hepatitis C scre ening. Due on due Goal UDT. Due on due Goal ALT (SGPT). Due on due Goal OARS. Due on due Goal Order Annual PT. Due on due Goal Creatinine. Due on due Goal FIT. Due on due Goal STULL HEWER Scanned. Due on due Goal Height. Due [...] Order Annual PT. Due on due Goal OLIVE PICKER Paperwork. Due on due Goal Creatinine. Due on due Goal Review Allergy List. Due on due Goal Hepatitis C scre ening. Due on due Goal STULL HEWER Scanned. Due on due Goal Lipid panel. Due on due Goal FIT-DNA. Due on due Goal OARS. Due on due Goal OLIVE PICKER Paperwork. Due on due Goal Hepatitis C [...] due Goal FIT. Due on due Goal STULL HEWER Scanned. Due on due Goal Lipid panel. Due on due Goal PHQ-9. Due on du e Goal UDT. Due on due Goal Height. Due on d ue Goal OARS. Due on due Goal STULL HEWER Scanned. Due on due Goal Update Social Hi story. Due on due Goal CT-Colonography. Due on due Goal HPV. Due on due Goal AST (SGOT). Due on due Goal Zoster vaccine ( 1st). Due on due Goal OLIVE PICKER Paperwork. Due on due Goal Review Allergy [...] Goal Tobacco Use. Due on due Goal STULL HEWER Scanned. Due on due Goal FIT-DNA. Due [...] Goal Weight. Due on d ue Goal OLIVE PICKER Paperwork. Due on due Goal Tobacco Use. Due on due Goal STULL HEWER Scanned. Due on due Goal Order Annual PT. Due on due Goal PHQ-9. Due on du e Goal FIT-DNA. Due on due Goal Zoster vaccine ( ). Due on due Goal OARS. Due on due Goal Lipid panel. Due on due Goal UDT. Due on due Goal OLIVE PICKER Paperwork. Due on due Goal Height. Due [...] Medication Recon ciliation. Due on due Goal STULL HEWER Scanned. Due on due Goal UDT. Due [...] Social Hi story. Due on due Goal OLIVE PICKER Paperwork. Due on due Goal PHQ-9. Due on du e Goal Weight. Due on d ue Goal Review Allergy List. Due on due Goal Tobacco Use. Due on due Goal Height. Due on d ue Goal FIT. Due on due Goal Unhealthy drug u se screening. Due on due Goal Order Annual PT. Due on due Goal STULL HEWER Scanned. Due on due Goal Zoster vaccine ( 1st). Due on due Goal OARS. Due on due Goal OLIVE PICKER Paperwork. Due on due Goal CT-Colonography. Due [...] due Goal FIT. Due on due Goal STULL HEWER Scanned. Due on due Goal Tobacco Use. [...] Goal Weight. Due on d ue Goal OLIVE PICKER Paperwork. Due on due Goal Review Allergy [...] Social Hi story. Due on due Goal STULL HEWER Scanned. Due on due Goal Review Allergy [...] due Goal FIT-DNA. Due on due Goal OLIVE PICKER Paperwork. Due on due Goal Weight. Due on d ue Goal Order Annual PT. Due on due Goal Height. Due on d ue Goal FIT-DNA. Due on due Goal Creatinine. Due on due Goal Hepatitis C scre ening. Due on due Goal OLIVE PICKER Paperwork. Due on due Goal PHQ-9. Due [...] Goal Weight. Due on d ue Goal STULL HEWER Scanned. Due on due Goal ALT (SGPT). Due on due Goal OARS. Due on due Goal UDT. Due on due Goal Review Allergy List. Due on due Goal Lipid panel. Due on due Goal Order Annual PT. Due on due Goal Hepatitis C scre ening. Due on due Goal Weight. Due on d ue Goal OLIVE PICKER Paperwork. Due on due Goal Medication Recon ciliation. Due on due Goal Unhealthy drug u se screening. Due on due Goal OARS. Due on due Goal Update Social Hi story. Due on due Goal FIT. Due on due Goal PHQ-9. Due on du e Goal UDT. Due on due Goal Creatinine. Due on due Goal STULL HEWER Scanned. Due on due Goal ALT (SGPT). [...] Social Hi story. Due on due Goal OLIVE PICKER Paperwork. Due on due Goal PHQ-9. Due on du e Goal FIT. Due on due Goal Weight. Due on d ue Goal Medication Recon ciliation. Due on due Goal CT-Colonography. Due on due Goal UDT. Due on due Goal Review Allergy List. Due on due Goal Order Annual PT. Due on due Goal STULL HEWER Scanned. Due on due Goal AST (SGOT). [...] due Goal FIT. Due on due Goal OLIVE PICKER Paperwork. Due on due Goal Creatinine. Due on due Goal PHQ-9. Due on du e Goal STULL HEWER Scanned. Due on due Goal Review Allergy [...] Goal Tobacco Use. Due on due Goal OLIVE PICKER Paperwork. Due on due Goal STULL HEWER Scanned. Due on due Goal Zoster vaccine [...] Goal Weight. Due on d ue Goal STULL HEWER Scanned. Due on due Goal Height. Due on d ue Goal OLIVE PICKER Paperwork. Due on due Goal Unhealthy drug [...] due Goal Creatinine. Due on due Goal OLIVE PICKER Paperwork. Due on due Goal STULL HEWER Scanned. Due on due Goal Unhealthy drug [...] Goal PHQ-9. Due on du e Goal STULL HEWER Scanned. Due on due Goal OARS. Due on due Goal Height. Due on d ue Goal UDT. Due on due Goal Update Social Hi story. Due on due Goal PHQ-9. Due on du e Goal OLIVE PICKER Paperwork. Due on due Goal Creatinine. Due [...] due Goal UDT. Due on due Goal OLIVE PICKER Paperwork. Due on due Goal Height. Due on d ue Goal OARS. Due on due Goal STULL HEWER Scanned. Due on due Goal Weight. Due on d ue Goal ALT (SGPT). Due on due Goal Medication Recon ciliation. Due on due Goal ALT (SGPT). Due on due Goal Medication Recon ciliation. Due on due Goal OLIVE PICKER Paperwork. Due on due Goal Creatinine. Due on due Goal Weight. Due on d ue Goal AST (SGOT). Due on due Goal STULL HEWER Scanned. Due on due Goal Tobacco Use. Due on due Goal Review Allergy List. Due on due Goal PHQ-9. Due on du e Goal OARS. Due on due Goal Update Social Hi story. Due on due Goal UDT. Due on due Goal Order Annual PT. Due on due Goal Height. Due on d ue Goal OLIVE PICKER Paperwork. Due on due Goal UDT. Due on due Goal ALT (SGPT). Due on due Goal STULL HEWER Scanned. Due on due Goal OARS. Due on due Goal Update Social Hi story. Due on due Goal AST (SGOT). Due on due Goal Order Annual PT. Due on due Goal Weight. Due on d ue Goal Medication Recon ciliation. Due on due Goal Tobacco Use. Due on due Goal PHQ-9. Due on du e Goal Creatinine. Due on 17 due Goal Height. Due on d ue Goal Review Allergy List. Due on due Goal Creatinine. Due on due Goal ALT (SGPT). Due on due Goal Medication Recon ciliation. Due on due Goal Order Annual PT. Due on due Goal AST (SGOT). Due on due Goal UDT. Due on due Goal Review Allergy List. Due on due Goal OLIVE PICKER Paperwork. Due on due Goal STULL HEWER Scanned. Due on due Goal OARS. Due [...] Medication Recon ciliation. Due on due Goal STULL HEWER Scanned. Due on due Goal Review Allergy List. Due on due Goal Update Social Hi story. Due on due Goal ALT (SGPT). Due on due Goal OARS. Due on due Goal Tobacco Use. Due on due Goal AST (SGOT). Due on due Goal Creatinine. Due on due Goal OLIVE PICKER Paperwork. Due on due Goal Order Annual PT. Due on due Goal UDT. Due on due Goal STULL HEWER Scanned. Due on due Goal OARS. Due on due Goal ALT (SGPT). Due on due Goal OLIVE PICKER Paperwork. Due on due Goal PHQ-9. Due [...] Social Hi story. Due on due Goal STULL HEWER Scanned. Due on due Goal OARS. Due on due Goal ALT (SGPT). Due on due Goal OLIVE PICKER Paperwork. Due on due Goal Order Annual [...] Goal Tobacco Use. Due on due Goal STULL HEWER Scanned. Due on due Goal Review Allergy List. Due on due Goal Medication Recon ciliation. Due on due Goal PHQ-9.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
--- NOTE | 2024-10-08 17:55 | ED.GENADULT ---
HPI - General Adult General Date Seen: 10/08/24 Chief complaint: Abdominal Pain Stated complaint: lower abdomen pain Time Seen by Provider: 10/08/24 17:55 History of Present Illness HPI narrative: 63-year-old female with a past medical history of hyperlipidemia, type 2 diabetes, anemia, GERD, irritable bowel syndrome, chronic neck and back pain, cervical disc disease,, spinal cord stimulator, appendectomy, cholecystectomy, chronic opiate use (per history and physical from July she is on Suboxone 4 times daily (takes half of an 8 mg/2 mg sublingual film 4 times a day), low BMI, anemia (hemoglobin 10.7 in July). She presents to the ER today with her significant other. She developed abdominal pain early this afternoon. She does not know what brought it on. It came on without warning. It is located on both sides of her abdomen but also goes to her upper abdomen. (triage notes that it was left lower quadrant, but that is not quite accurate). It is intense and continuous. It does not come and go in waves. She cannot describe it other than it is bad pain. She is shouting, ?help me! The pain makes her nauseous but she has not vomited. She does have chronic constipation but stops has been stooling at her baseline lately. No urinary symptoms. No vaginal symptoms. No fever. No history of similar pain to this. Previous abdominal surgeries include cholecystectomy, laparoscopic appendectomy, and a lumbar surgery from an anterior approach (she has a midline abdominal incision). She denies history of bowel obstruction or bowel surgeries. She does take Suboxone for chronic pain. She can not tell me when her last dose was today but she is pretty sure she took it this morning. Related Data Home Medications ?Medication ?Instructions ?Recorded ?Confirmed lamotrigine 200 mg tablet mg PO BID 08/17/21 08/09/24 sennosides 8.6 mg tablet 8.6 mg PO QDAY PRN 03/13/23 08/09/24 tizanidine 4 mg tablet 2 - 4 mg PO .QD PRN 03/13/23 08/09/24 topiramate 25 mg tablet 25 mg PO BID 03/13/23 08/09/24 bupropion HCl 300 mg 24 hr tablet, 150 mg PO DAILY 09/16/23 08/09/24 extended release duloxetine 60 mg capsule,delayed 120 mg PO QDAY 09/16/23 08/09/24 release (Cymbalta) buprenorphine 8 mg-naloxone 2 mg 0.5 film sublingual QID chronic 05/18/24 08/09/24 sublingual film pain trazodone 100 mg tablet 200 mg PO QHS 06/02/24 08/09/24 Previous Rx's ?Medication ?Instructions ?Recorded blood-glucose meter #1 ea 05/19/23 blood sugar diagnostic (Accu-Chek #100 ea 05/21/23 Kaylee Plus test strips) omeprazole 40 mg capsule,delayed 40 mg PO DAILY #90 caps 12/30/23 release lancets (Accu-Chek Softclix #300 ea 04/12/24 Lancets) semaglutide 2 mg/dose (8 mg/3 mL) 2 mg (0.75 mL) subcut QWEEK #3 mL 06/28/24 subcutaneous pen injector (Ozempic) metformin 1,000 mg tablet 1,000 mg PO BID #180 tabs 07/12/24 simvastatin 20 mg tablet 20 mg PO QPM #90 tabs 09/21/24 dicyclomine 20 mg tablet See Rx Instructions .Route 10/05/24 .COMPLEX #270 tabs pramipexole 0.5 mg tablet 0.5 mg PO DAILY #90 tabs 10/07/24 Allergies Allergy/AdvReac Type Severity Reaction Status Date / Time hydroxyzine Allergy Severe involuntary Verified 08/09/24 12:51 muscle movement venlafaxine Allergy Mild Rash, Verified 08/09/24 12:51 restless legs prochlorperazine (From Allergy Verified 08/09/24 12:51 Compazine) diphenhydramine AdvReac Mild Effects RLS Verified 08/09/24 12:51 [facility] Medical History Compartment syndrome of left lower extremity ?T79.A22A - Traumatic compartment syndrome of left lower extremity, initial encounter (ICD-10) Palpitations ?R00.2 - Palpitations (ICD-10) Syncope ?R55 - Syncope and collapse (ICD-10) 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) ?M50.20 - Other cervical disc displacement, unspecified cervical region (ICD-10) Surgical History Status post open reduction and internal fixation (ORIF) of fracture ?Z98.890 - Other specified postprocedural states (ICD-10) ?Z87.81 - Personal history of (healed) traumatic fracture (ICD-10) S/P laparoscopic procedure ?Z98.890 - Other specified postprocedural states (ICD-10) S/P insertion of spinal cord stimulator ?Z96.89 - Presence of other specified functional implants (ICD-10) S/P lumbar fusion ?Z98.1 - Arthrodesis status (ICD-10) S/P cervical spinal fusion ?Z98.1 - Arthrodesis status (ICD-10) S/P bunionectomy ?Z98.890 - Other specified postprocedural states (ICD-10) History of tonsillectomy and adenoidectomy (01/17/10) ?Z90.89 - Acquired absence of other organs (ICD-10) History of laparoscopic appendectomy (05/14/12) ?Z90.49 - Acquired absence of other specified parts of digestive tract (ICD-10) History of cholecystectomy (01/17/10) ?Z90.49 - Acquired absence of other specified parts of digestive tract (ICD-10) History of appendectomy (06/30/12) ?Z90.49 - Acquired absence of other specified parts of digestive tract (ICD-10) Family History Mother Osteoporosis Social History Narrative: , currently engaged to be . On disability. 3 children. No alcohol. Non-smoker. No illicit drug use. Smoking Status: Current every day smoker How often do you have a drink containing alcohol: never AUDIT-C Alcohol total score: 0 Non-prescribed substance use: denies use Exam Narrative: Exam Narrative: Constitutional: Appears well-developed and well-nourished. Alert. Very anxious, shouting, ?help me! And ?do something because of her abdominal pain. Nurses have met her before and said that she typically has a fairly dramatic presentation HENT: Head: Atraumatic. Nose: Nose normal. Mouth/Throat: Oral mucosa is clear and moist. no trismus. Eyes: Conjunctivae normal. EOM normal. Pupils equal, round, and reactive to light. No scleral icterus. Neck: Normal range of motion. Neck supple. No tracheal deviation present. Cardiovascular: Normal rate, regular rhythm. No gallop. No friction rub. No murmur heard. Symmetric radial artery pulses Pulmonary/Chest: Effort normal. No stridor. No respiratory distress. No wheezes. No rales. No rhonchi . No tenderness. Abdominal: Soft. Bowel sounds normal. Mildly distended, subtly tympanic. Fairly diffuse tenderness. She is very dramatic with her cries and shots of pain, she is rolling around on the bed. Not able to properly assess for guarding or rebound Musculoskeletal: RUE: Normal range of motion. No tenderness. No deformity LUE: Normal range of motion. No tenderness. No deformity RLE: Normal range of motion. No edema. No tenderness. No deformity LLE: Normal range of motion. No edema. No tenderness. No deformity Neurological: Alert and oriented to person, place, and time. Normal strength. CN II-VII intact. No sensory deficit. GCS eye subscore is 4. GCS verbal subscore is 5. GCS motor subscore is 6. Normal coordination Skin: Skin is warm and dry. No rash noted. No pallor. Normal capillary refill. Psychiatric: Limited because of pain. Anxious and shouting, seems to be in a lot of pain. Const: Vital Signs, click to edit/add: Vital Signs - 24 hr 10/08/24 18:04 10/08/24 20:33 10/08/24 20:39 Temperature 97.9 F 97.8 F Pulse Rate 73 Pulse Rate [Pulse Oximeter] 81 74 Respiratory Rate 16 15 18 Blood Pressure 130/79 Blood Pressure [Ri ght Upper Arm] 137/91 H 130/79 Pulse Oximetry 95 95 96 Oxygen Delivery Me thod Room Air Room Air 10/08/24 23:05 Temperature 97.8 F Pulse Rate Pulse Rate [Pulse Oximeter] 72 Respiratory Rate 18 Blood Pressure Blood Pressure [Ri ght Upper Arm] 129/82 Pulse Oximetry 96 Oxygen Delivery Me thod Room Air Course Course ED Course: Patient had significant pain at presentation. Pain control is going to be challenging for her because of her Suboxone use which will make analgesia with opiates difficult. Will try non opiate means to get some pain control. She is clearly very uncomfortable. Also an overlay of anxiety. I ordered Toradol, Valium, ketamine at 0.3 milligrams/kilogram. Recheck-nurses report substantial pain improvement with Toradol and Valium. Patient does not need ketamine currently. I asked them to keep it on standby in case the patient's pain worsens. Reevaluation(s) Reevaluation #1: Recheck -1944. Updated patient and her significant other about lab findings which are generally reassuring save for lactic minimally elevated 2.4. CT scan read per Radiology is reassuring. Patient is dumbfounded and cannot believe that her pain is related to constipation. However there was a fair amount of stool in sigmoid and descending colon and a fair amount of gas in the rectum with nonspecific fluid in the small bowel which I think might be backing up. Will try to help alleviate her constipation. Discussed options for relieving the constipation. After some discussion, concerning enema versus oral laxatives, we want to try to relieve the constipation as soon as possible, therefore will go with enema. Plan: Will try IM released or which might help relieve opiate induced constipation from her Suboxone and also will try a Fleet's enema. Will observe for response and see if pain improves after stooling. If pain not improving, will need further workup with serial lactic. Reevaluation #2: Recheck-no success after Fleet's enema. Nurses report that she had large flatus but no BM. Recheck-having some recurring pain. dehydrator tender but no definite peritoneal findings. I will order repeat lactic make sure it is not rising as a sign of bowel ischemia. I reordered a dose of Valium and ketamine. We are trying to avoid opiates because they can worsen constipation. Recheck-pain now improved again. She is able to tolerate magnesium citrate Reevaluation #3: Recheck-repeat lactic drawn. Results pending. Patient feeling better. No results after Mag citrate. Recheck-stick continues to feel better. No result. Repeat lactic is back and normal at 0.7. Patient is feeling more comfortable now and has been comfortable for a couple of hours. She is agreeable to plan to discharge home and try an oral laxative to resolve her constipation. Instructed to return to the ER if if her pain worsens, or if she is not improved after constipation is resolved, or if she is not able to pass bowel movements with MiraLax. Vital Signs Vital signs: Initial Vital Signs Temperature 97.9 F 10/08/24 18:04 Temperature Source Temporal Artery Scan 10/08/24 18:04 Pulse Rate 81 10/08/24 18:04 Respiratory Rate 16 10/08/24 18:04 Blood Pressure 137/91 H 10/08/24 18:04 Blood Pressure Mean 106 H 10/08/24 18:04 Blood Pressure Position Sitting 10/08/24 18:04 Pulse Oximetry 95 10/08/24 18:04 Oxygen Delivery Method Room Air 10/08/24 18:04 Vital Signs Temperature 97.9 F 10/08/24 18:04 Pulse Rate 81 10/08/24 18:04 Respiratory Rate 16 10/08/24 18:04 Blood Pressure 137/91 H 10/08/24 18:04 Pulse Oximetry 95 10/08/24 18:04 Oxygen Delivery Method Room Air 10/08/24 18:04 Temperature 97.8 F 10/08/24 23:05 Pulse Rate 72 10/08/24 23:05 Respiratory Rate 18 10/08/24 23:05 Blood Pressure 129/82 10/08/24 23:05 Pulse Oximetry 96 10/08/24 23:05 Oxygen Delivery Method Room Air 10/08/24 23:05 Medications Administered Medications: Discontinued Medications Generic Name Dose Route Start Last Admin Trade Name Freq PRN Reason Stop Dose Admin Diazepam 5 mg 10/08/24 18:16 10/08/24 18:52 Diazepam 5 Mg/Ml Inj IV 10/08/24 18:17 5 mg ONCE ONE Administration Diazepam 5 mg 10/08/24 21:35 10/08/24 21:49 Diazepam 5 Mg/Ml Inj IV 10/08/24 21:36 5 mg ONCE ONE Administration Sodium Chloride 1,000 mls @ 1,000 mls/hr 10/08/24 18:30 10/08/24 22:40 0.9 % Sodium Chloride 1000 Ml IV 10/08/24 19:29 Infused .Q1H MATEUS Infusion Ketamine HCl 30 mg 10/08/24 18:16 10/08/24 19:42 Ketamine Hcl 100 Mg/Ml Inj IVP 10/08/24 18:17 30 mg ONCE ONE Administration Ketamine HCl 30 mg 10/08/24 21:35 10/08/24 22:16 Ketamine Hcl 100 Mg/Ml Inj IVP 10/08/24 21:36 30 mg ONCE ONE Administration Ketorolac Tromethamine 15 mg 10/08/24 18:16 10/08/24 18:51 Ketorolac 15 Mg/Ml Inj IVP 10/08/24 18:17 15 mg ONCE ONE Administration Magnesium Citrate 100 ml 10/08/24 21:35 10/08/24 21:52 Magnesium Citrate 300 Ml Solution PO 10/08/24 21:36 100 ml ONCE ONE Administration Methylnaltrexone [place] 12 mg 10/08/24 20:12 10/08/24 21:19 Methylnaltrexone [place] 12 Mg/0.6 Ml Vial SUBCUT 10/08/24 20:13 12 mg ONCE ONE Administration Ondansetron HCl 4 mg 10/08/24 18:16 10/08/24 18:49 Ondansetron 2 Mg/Ml Inj IVP 10/08/24 18:17 4 mg ONCE ONE Administration Medical Decision Making MDM Narrative Medical decision making narrative: Presented to the Emergency Department with periumbilical and generalized abdominal pain. The differential diagnosis of abdominal pain includes: Appendicitis, Bowel Obstruction, Ulcer, Ischemia, Cholecystitis, Diverticulitis, Pancreatitis, UTI, kidney stone, Enteritis/Colitis, amongst many other etiologies. Laboratory testing does not reveal a cause for the patient's pain. CBC shows normal white count. She is mildly anemic but hemoglobin 11.9 is slightly increased from her baseline (possibly hemoconcentration from dehydration). Imaging is noted to be normal. The exact etiology of the abdominal pain is not clear at this time. No life threatening cause or need for emergent surgery or hospital admission is detected today. The patient was advised that if symptoms do not completely resolve within another 12-24 hours re-evaluation with primary care or return to the ED is indicated. The patient also understands that if they worsen, they should return to the ER right away. I discussed the uncertainty about the diagnosis and answered the patient's questions. Abdominal pain return precautions discussed. Lab Data Labs: Lab Results 10/08/24 10/08/24 Range/Units 18:30 22:56 WBC 6.15 (4.50-11.00) K/uL RBC 4.31 (4.00-5.20) m/uL Hgb 11.9 L (12.0-16.0) gm/dL Hct 37.1 (33.0-51.0) % MCV 86 (80-100) fL MCH 28 (26-34) pg MCHC 32 (32-36) gm/dL RDW Coeff of Monserrat 15.1 (11.5-15.5) % Plt Count 203 (140-440) K/uL Neut % (Auto) 49.9 (42.0-72.0) % Lymph % (Auto) 39.0 (20-44) % Hopkins % (Auto) 6.0 (0.0-11.0) % Eos % (Auto) 4.6 (0.0-7.0) % Baso % (Auto) 0.3 (0.0-3.0) % Neut # (Auto) 3.07 (1.7-7.0) K/uL Lymph # (Auto) 2.40 (0.90-2.90) K/uL Hopkins # (Auto) 0.40 (0.00-0.90) K/UL Eos # (Auto) 0.28 (0.00-0.50) K/uL Baso # (Auto) 0.02 (0.00-0.30) K/uL Abs Immat Gran (auto) 0.01 (0.00-0.30) K/uL Imm/Tot Granulo (auto) 0.2 % Sodium 137 (135-149) mmol/L Potassium 3.8 (3.6-5.1) mmol/L Chloride 103 (96-114) mmol/L Carbon Dioxide 24 (20-32) mmol/L Anion Gap 10 (7-15) mEq/L BUN 20 (7-30) mg/dL Creatinine 0.8 (0.5-1.5) mg/dL Estimated Creat Clear 46.73 Estimated GFR 84 ml/min Glucose 102 (60-115) mg/dL Lactate 2.4 H 0.7 (0.5-1.9) mmol/L Calcium 9.7 (8.4-10.6) mg/dL Total Bilirubin 0.4 (0.1-1.5) mg/dL AST 19 (12-35) U/L ALT 12 (4-35) U/L Alkaline Phosphatase 76 (40-150) U/L Total Protein 6.9 (6.0-8.3) g/dL Albumin 4.6 (3.3-5.0) g/dL Lipase 38 (23-300) U/L Imaging Data CT scan - abdomen: Attestation: I have reviewed the pertinent imaging results. My impression: Fair amount of stool in the sigmoid colon. Gas in the rectum. No free air. Fluid-filled small bowel but no air-fluid levels. No definite bowel obstruction. Awaiting formal radiology read. Radiologist's impression: IMPRESSION: No acute intra-abdominal/pelvic abnormality. Moderate colonic stool burden. Discharge Plan Discharge Clinical Impression: Constipation, Abdominal pain Patient Disposition: Home, Self-Care Condition: Stable Instructions: Constipation (ED), Abdominal Pain (ED) Additional Instructions: As we discussed, right now your workup in the ER looks reassuring. We do not see any signs of serious problems in your abdomen such as bowel obstruction, abdominal infections, blockages, tumors, or any serious problem that require surgery right now. Right now we suspect that you might have constipation as a cause for your pain. To help manage constipation you can take the following steps using a medication called MiraLax. MiraLax is available [id number]. Purchase one 8.3 ounce jar (238 g) of MiraLax Purchase 2 quarts (64 ounces) of Gatorade. Mix the entire jar MiraLax into the 64 oz of Gatorade. Stir until it is dissolved. If you like, you can put the Gatorade in the refrigerator to chill, but chilling it is not necessary Drink one 8 oz glass of this MiraLax mixture every 30 minutes until YOU ARE HAVING SATISFACTORY BOWEL MOVEMENTS. It is okay to stop if you are having satisfactory bowel movements. A bowel movement will typically occur within an hour after you drink the 1st glass. Bloating and abdominal cramping as well as nausea can occur from this medication. Return to the ER right away if you have severe pain, fever, or other worsening symptoms. If your pain is not resolved within 12 hours or if you are not able have bowel movements in the morning, return to the ER to be rechecked. Prescriptions: No Action duloxetine [Cymbalta] 60 mg capsule,delayed release(DR/EC) 120 mg PO QDAY sennosides 8.6 mg tablet 8.6 mg PO QDAY PRN Rx Instructions: 1 in the morning 1-2 at night Ozempic 2 mg/dose (8 mg/3 mL) pen injector 2 mg subcut QWEEK Qty: 3 5RF lamotrigine 200 mg tablet PO BID tizanidine 4 mg tablet 2 - 4 mg PO .QD PRN topiramate 25 mg tablet 25 mg PO BID bupropion HCl 300 mg tablet extended release 24 hr 150 mg PO DAILY buprenorphine-naloxone 8-2 mg film 0.5 film sublingual QID trazodone 100 mg tablet 200 mg PO QHS (DME) blood-glucose meter Misc See Rx Instructions .Route Qty: 1 0RF Rx Instructions: As directed (DME) Accu-Chek Kaylee Plus test strp Strip See Rx Instructions .Route Qty: 100 3RF Rx Instructions: tid omeprazole 40 mg capsule,delayed release(DR/EC) 40 mg PO DAILY Qty: 90 3RF (DME) lancets [Accu-Chek Softclix Lancets] Misc See Rx Instructions .Route Qty: 300 0RF Rx Instructions: tid metformin 1,000 mg tablet 1,000 mg PO BID Qty: 180 1RF simvastatin 20 mg tablet 20 mg PO QPM Qty: 90 0RF dicyclomine 20 mg tablet See Rx Instructions .ROUTE .COMPLEX Qty: 270 1RF Dose Instruction: TAKE ONE TABLET BY MOUTH THREE TIMES DAILY Rx Instructions: TAKE ONE TABLET BY MOUTH THREE TIMES DAILY pramipexole 0.5 mg tablet 0.5 mg PO DAILY Qty: 90 1RF Follow Up/Referrals: Hayes Mcelroy MD [Primary Care Provider, Family Practice] Stand Alone Forms: [employer] Info Instructions
--- OUTSIDE RECORDS SUMMARY | 2024-10-08 17:56 | XMS_ITS | Clinical Summary ---
Author Organization [facility] Address [address] [place] [id number] Care Team Providers Care Draw Frame Tender Name Role Phone Hayes Mcelroy MD Primary Care Provider [phone] Allergies Active Allergy Reactions Criticality Noted Date [...] 09/30/2019 Venlafaxine Rash 09/30/2019 Restless legs Medications pramipexole (MIRAPEX) 0.5 mg tablet TAKE 1 TABLET BY MOUTH AT BEDTIME 30 Each 1 0 Active prazosin (MINIPRESS) 1 mg capsule Take 1 mg by mouth at bedtime. 2 9 Active simvastatin (ZOCOR) 20 mg tablet Take 20 mg by mouth at bedtime. 3 9 Active traZODone (DESYREL) 100 mg tablet Take 100 mg by mouth at bedtime. 2 9 Active lamoTRIgine (LAMICTAL) 200 mg tablet Take 200 mg by mouth 2 times daily. Active buPROPion (WELLBUTRIN XL) 300 mg Extended-Release tablet Take 300 mg by mouth every morning. Active metFORMIN (GLUCOPHAGE) 1,000 mg tabletIndications :Diabetes 1.5, managed as type 2 (HC) Take 1 tablet by mouth 2 times daily with meals. 0 0 Active NARCAN 4 mg/actuation spry nasal spray Administer one dose (4 mg) into nostril as needed for opioid overdose and call 911. Give second dose into the other nostril after 2 to 3 min 0 Active topiramate (TOPAMAX) 100 mg tablet Take 150 mg by mouth 2 times daily. Active dicyclomine (BENTYL) 20 mg tablet Take 20 mg by mouth 3 times daily before meals. Active furosemide (LASIX) 20 mg tablet Take 20 mg by mouth once daily if needed. 1 Active escitalopram oxalate (LEXAPRO) 20 mg tablet Take 20 mg by mouth at bedtime. Active omeprazole (PRILOSEC) 40 mg Delayed-Release capsule Take 40 mg by mouth once daily. Active ergocalciferol (VITAMIN D2; DRISDOL) 50,000 unit capsuleIndication s:S/P cervical spinal fusion Take 1 Capsule (50,000 units) by mouth once weekly. 12 Capsule 3 2 Active lidocaine 5 % topical patch Apply 1-3 Patches on dry, clean, hairless skin once daily if needed. 2 Active DULoxetine (CYMBALTA) 60 mg Delayed-release capsule Take 120 mg by mouth once daily. 2 Active sennosides-docusa te (SENOKOT S) (8.6-50 mg) tabletIndications :Lumbar radiculopathy,Opi oid use Take 1-4 Tablets by mouth two times daily. 100 Tablet 01/17/2022 2:51 PM SEARCH ENGINE OPTIMIZATION STRATEGIST 2 Active tiZANidine (ZANAFLEX) 2 mg tabletIndications :Lumbar radiculopathy Take 1-2 Tablets (2-4 mg) by mouth every 6 hours if needed for Muscle Spasm. 60 Tablet 01/17/2022 2:51 PM SEARCH ENGINE OPTIMIZATION STRATEGIST 2 Active Accu-Chek Guide test strips strip USE TO TEST TWICE A DAY 2 Active Accu-Chek Guide Glucose Meter USE TO CHECK BLOOD GLUCOSE LEVELS. 2 Active Accu-Chek Softclix Lancets USE TO TEST TWICE A DAY 2 Active oxyCODONE (ROXICODONE) 15 mg immediate release tablet TAKE 1 TABLET BY MOUTH EVERY 4-6 HOURS NEEDED FOR CHRONIC PAIN, MAX 5 TABLETS PER DAY 2 Active oxyCODONE 10 mg tabletIndications :Post-op pain Take 1-2 Tablets (10-20 mg) by mouth every 4 hours if needed for Pain. 60 Tablet 2 Active Active Problems Problem Noted Date Diagnosed [...] Anxiety Cervical stenosis of spinal canal Immunizations Immunization Administration Dates Next Due AMB Influenza, IIV3 [...] Paying Living Expenses Not on file 01/31/2021 Comments No Sex and Gender Information Value Date Recorded Sex Assigned at Not on file Legal Sex Female 6:10 AM SEARCH ENGINE OPTIMIZATION STRATEGIST Gender Identity Not on file Sexual Orientation Not on file Occupation Industry Job Start Date Job End Date Not on file Not on file Not on file Not on file Obstetrics History Last Filed Vital Signs Vital Sign Reading Time Taken Comments Blood Pressure 105/55 01/17/2022 9:09 AM SEARCH ENGINE OPTIMIZATION STRATEGIST Pulse 71 01/17/2022 11:25 AM SEARCH ENGINE OPTIMIZATION STRATEGIST Temperature 36.8 C (98.3 F) 01/17/2022 9:09 AM SEARCH ENGINE OPTIMIZATION STRATEGIST Respiratory Rate 16 01/17/2022 11:25 AM SEARCH ENGINE OPTIMIZATION STRATEGIST Oxygen Saturation 91% 01/17/2022 11:25 AM SEARCH ENGINE OPTIMIZATION STRATEGIST Inhaled Oxygen Concentration - - Weight 72.6 kg (160 lb) 04/11/2022 9:58 AM SEARCH ENGINE OPTIMIZATION STRATEGIST Height 175.3 cm (5' 9) 04/11/2022 9:58 AM SEARCH ENGINE OPTIMIZATION STRATEGIST Body Mass Index 23.63 04/11/2022 9:58 AM SEARCH ENGINE OPTIMIZATION STRATEGIST Plan of Treatment Health Maintenance Due Date Last Done Comments Tetanus booster 1973 HIV for age 15-65 1977 Hepatitis C screening for age 18-79 1980 Pneumococcal series for age 50+ (1 of 2 - PCV) 1981 Colonoscopy through age 75 11/21/2007 Lipids for age 45-75 11/21/2007 Mammogram for age 45-75 11/06/2010 11/06/2009, 10/07 Zoster (shingles) series for age 50+ (1 of 2) 2012 Depression screening for age 12+ 01/10/2018 01/10/2017 BMI (ht and wt on same day) for age 18+ 04/12/2023 04/11/2022, 01/30/2022, 01/10/2022, Additional history exists COVID-19 vaccine series (2023- season) 2023 08/12/2023, 07/30/2021, 12/02/2020, Additional history exists Influenza Vaccine (#1) 2024 12/13/2008, 2008 Pap test for age 21-65 11/21/2025 , 11/21/2022, 07/28/2017, Additional history exists RSV vaccine for adults or (1 - 1-dose 75+ series) 2037 Hepatitis B series for 19+ Aged Out N o longer eligible based on patient's age to complete this topic Medical Devices Implanted Type Area Associate Scientist Device Identifier Shelf Expiration Date Model / Serial / Lot Bone Matrix 10cc Progenix Plusputty Dbm - [id number] Implanted:Qty : 1 on 12/01/2019 by Brock Sawyer MD at [facility] N/A: Lumbar Vertebrae Medtronic Spine/Ortho 06/15/2021 [id number] / / [id number] Spacer Lmbr [id number] 11deg Elevate Extra-Lordoti c Peek Titn - [id number] Implanted:Qty : 1 on 12/01/2019 by Brock Sawyer MD at [facility] N/A: Lumbar Vertebrae Medtronic Spine/Ortho 09/15/2027 [id number]# / / [id number] Screw Lmbr Post 6.5x50mm Solera 5.5/6 Va Cocr - [id number] Implanted:Qty : 4 on 12/01/2019 by Brock Sawyer MD at [facility] N/A: Lumbar Vertebrae Medtronic Spine/Ortho [id number] / / 5.5 X 500mm Cc Beltran Implanted:Qty : 1 on 12/01/2019 by Brock Sawyer MD at [facility] N/A: Lumbar Vertebrae Medtronic Spine/Ortho [id number] / / Bone 1-4mm 90cc Medtronic Chips Canclls Freeze Dried - [id number] Implanted:Qty : 1 on 12/01/2019 by Brock Sawyer MD at [facility] N/A: Lumbar Vertebrae Medtronic Spine/Ortho 04/24/2024 [id number]# / / [id number]: [id number] Bone Matrix Infuse Bmp - [id number] Implanted:Qty : 1 on 12/01/2019 by Brock Sawyer MD at [facility] N/A: Lumbar Vertebrae Medtronic Spine/Ortho 11/09/2021 [id number]# / / [id number] Bone 1-4mm 30cc Medtronic Chips Canclls Freeze Dried - [id number] Implanted:Qty : 1 on 12/01/2019 by Brock Sawyer MD at [facility] N/A: Lumbar Vertebrae Medtronic Spine/Ortho 05/31/2024 [id number]# / / [id number]: [id number] Spacer Lmbr [id number] 12deg Elevate Extra-Lordoti c Peek Tit - [id number] Implanted:Qty : 1 on 12/01/2019 by Brock Sawyer MD at [facility] N/A: Lumbar Vertebrae Medtronic Spine/Ortho 05/31/2027 [id number]# / / [id number] Bone Matrix 10cc Progenix Putty Dbm - [id number] Implanted:Qty : 1 on 12/01/2019 by Brock Sawyer MD at [facility] N/A: Lumbar Vertebrae Medtronic Spine/Ortho 01/15/2021 [id number]# / / [id number] Set Screw Lmbr Ant 5.5mm Solera Break Off - [id number] Implanted:Qty : 10 on 12/01/2019 by Brock Sawyer MD at [facility] Explanted:Qty : 1 on 06/27/2020 by Brock Sawyer MD at [facility] N/A: Lumbar Vertebrae Medtronic Spine/Ortho [id number]# / / Vitoss 1.2cc [id number] - [id number] Implanted:Qty : 1 on 01/17/2021 by Brock Sawyer MD at [facility] N/A: Cervical Vertebrae Bri Spine 05/07/[id number] / / [id number] Anterior Cervical Cage 7mm X 12mm X 14mm [id number] - [id number] Implanted:Qty : 1 on 01/17/2021 by Brock Sawyer MD at [facility] N/A: Cervical Vertebrae Bri Spine 01/25/2023 [id number] / / [id number] [place] Plates 22mm [id number] - [id number] Implanted:Qty : 1 on 01/17/2021 by Brock Sawyer MD at [facility] N/A: Cervical Vertebrae [place] Spine [id number] / / [place] Self-Starting Variable Screw 4.0x14mm [id number] - [id number] Implanted:Qty : 3 on 01/17/2021 by Brock Sawyer MD at [facility] N/A: Cervical Vertebrae Bri Spine [id number] / / [place] Self-Starting Variable Screw 4.5x14mm [id number] - [id number] Implanted:Qty : 1 on 01/17/2021 by Brock Sawyer MD at [facility] N/A: Cervical Vertebrae [id number] / / Vitoss Bimodal Implanted:Qty : 1 on 08/21/2021 by Brock Sawyer MD at [facility] N/A: Cervical Vertebrae [place] Spine 05/07/2022 [id number] / / [id number] Bone Matrix 5cc Stimulan Kit Rapid Cure - [id number] Implanted:Qty : 1 on 08/21/2021 by Brock Sawyer MD at [facility] N/A: Cervical Vertebrae [employer] 09/10/2023 [id number] / / [id number] 3.5 X 12mm [place] Oct Polyaxial Screw Implanted:Qty : 3 on 08/21/2021 by Brock Sawyer MD at [facility] N/A: Cervical Vertebrae [employer] [id number] / / 34.0 X 12mm [place] Oct Polyaxial Screw Implanted:Qty : 1 on 08/21/2021 by Brock Sawyer MD at [facility] N/A: Cervical Vertebrae [employer] [id number] / / Set Screw Implanted:Qty : 4 on 08/21/2021 by Brock Sawyer MD at [facility] N/A: Cervical Vertebrae [employer] [id number] / / Contoured Rods4.0 X 25mm Implanted:Qty : 2 on 08/21/2021 by Brock Sawyer MD at [facility] N/A: Cervical Vertebrae [employer] [id number] / / Bone Matrix Sm Infuse Bmp - [id number] Implanted:Qty : 1 on 01/16/2022 by Brock Sawyer MD at [facility] Lumbar Vertebrae Medtronic Spine/Ortho 02/10/2024 [id number] / / [id number] Bone Matrix 5cc Progenix Plus Putty Dbm - [id number] Implanted:Qty : 1 on 01/16/2022 by Brock Sawyer MD at [facility] Spine Medtronic Spine/Ortho 05/02/2023 [id number] / [id number] / Bone 1-4mm 15cc Medtronic Chips Canclls Freeze Dried - [id number] Implanted:Qty : 1 on 01/16/2022 by Brock Sawyer MD at [facility] Spine Medtronic Spine/Ortho 12/04/2025 [id number] / [id number] / [id number] Implant 16mm Implanted:Qty : 1 on 01/16/2022 by Brock Sawyer MD at [facility] Spine Medtronic Spine/Ortho 07/05/2025 [id number] / / [id number] Titan Tas Bone Screw Implanted:Qty : 1 on 01/16/2022 by Brock Sawyer MD at [facility] Spine Medtronic Spine/Ortho [id number] / / Divergence Screws Implanted:Qty : 4 on 01/16/2022 by Brock Sawyer MD at [facility] Spine Medtronic Spine/Ortho [id number] / / Divergence 18mm Plate Implanted:Qty : 1 on 01/16/2022 by Brock Sawyer MD at [facility] Spine Medtronic Spine/Ortho [id number] / / Explanted Type Area Associate Scientist Device Identifier Shelf Expiration Date Model / Serial / Lot EuroSite Power Precision Spinal Cord Stimulator Explanted:Qty: 1 on 12/01/2019 by Brock Sawyer MD at [facility] N/A: Lumbar Vertebrae Kelliher TitanFile / [id number] / Description:Battery and lead s explanted IPG model SC-1110 Bone Growth Stimulator Explanted:Qty: 1 on 12/01/2019 by Brock Sawyer MD at [facility] N/A: Lumbar Vertebrae Description:SpF-PLUS CLAUDIA [id number] Battery and leads explanted 100mm 5.5 Ti Beltran Explanted:Qty: 2 on 12/01/2019 by Brock Sawyer MD at [facility] N/A: Lumbar Vertebrae Set Screws Solera Explanted:Qty: 6 on 12/01/2019 by Brock Sawyer MD at [facility] N/A: Lumbar Vertebrae Medtronic Spine/Ortho Screw Sm Joint 4.5x20mm Axsos Raymundo Titok - [id number] Explanted:Qty: 4 on 12/01/2019 by Brock Sawyer MD at [facility] N/A: Lumbar Vertebrae Bri Orthopaedics [id number]# / / 8.5 X 70 Mm Ballast Screw Explanted:Qty: 1 on 06/27/2020 by Brock Sawyer MD at [facility] Right: Lumbar Vertebrae Medtronic Procedures Procedure Name Priority Date/Time Associated Diagnosis Comments HPV HIGH RISK Routine 11/21/2022 9:04 AM CDT XR FFDM MAMMO SCREENING BILATERAL SSP (IA) Routine 11/06/2009 10:54 AM CDT Other screening mammogram from Last 3 Months or Most Recently Relevant to Health Maintenance Results * (ABNORMAL) HPV HIGH RISK (11/21/2022 9:04 AM CDT) TYPE 16 Negative Negative 11/27/2022 11:43 AM CDT [facility] TYPE 18 Negative Negative 11/27/2022 11:43 AM CDT [facility] OTHER HIGH RISK TYPES Positive(A) Negative 11/27/2022 11:43 AM CDT [facility] Other (Cervical) 11/21/2022 9:04 AM CDT 11/25/2022 11:50 AM CDT [facility] - 11/27/2022 11:43 AM CDT Specimen is positive for the DNA of any one of, or combination of, the following high risk HPV types: 31, 33, 35, 39, 45, 51, 52, 56, 58, 59, 66, 68. HPV types 16 and 18 DNA were undetectable or below the pre-set threshold. Methodology: Velia Amador 4800 HPV Test may [facility] Final Resu lt [facility] [address] [place] [address], [place] * XR FFDM MAMMO SCREENING BILATERAL [...] patient. MAMMOGRAM ASSESSMENT: ACR 2 Benign Ellen Nunn PA MAMMO Final Resu lt from Last 3 Months or Most Recently Relevant to Health Maintenance Insurance [employer] PB ONLY MEDICARE PART B HB ONLY MEDICARE PART A HB ONLY [email or web address] HB Advance Directives * Full Code (Latest Code [...] Code Status Discussion: Not Discussed Care Teams Draw Frame Tender Relationship Specialty Start Date End Date Hayes Mcelroy MD PCP - General Family Practice 01/10/17
--- OUTSIDE RECORDS SUMMARY | 2024-10-08 17:56 | XMS_ITS | Clinical Summary ---
Author Organization [facility] Address [address] [place] [address] [place] [address] Care Team Providers Care Division Controller Name Role Phone [facility]- Unava ilable Hayes Mcelroy MD Primary Care Provider [phone] Allergies Active Allergy Reactions Criticality Noted Date Comments Atorvastatin Other 09/30/2019 Skin irritation around eyes Baclofen Nausea Low 12/23/2012 Muktfklwofga-Yvkdjzf-Sutten e Low 12/23/2012 Cyclobenzaprine Low 04/24/2011 Other [...] 3 Active naloxone (NARCAN) 4 mg/actuation Nasal [place] Administer one dose (4 mg) into nostril [...] (11/11/2022): Added automatically from request for surgery [id number] Chronic anemia 08/22/2021 Type 2 diabetes mellitus [...] drink = 0.6 oz pur e alcohol) [facility] FoxyP2ities Answer Date Recorded In the past 12 months has Otonomy, gas, oil, or water [employer] threatened to shut off services in your [...] time in the past 12 m [facility], were you homeless or living in a mcc (including now)? No 09/23/2023 Comments No Sex [...] (CELSO-7) 11[birth year]21/1961 Depression Follow-Up (PHQ-9) 11/21/1963 Pneumococcal 50+ Years (2 of 2 - PCV) 06/30/2013 06/30/2012 Creatinine 01/16/2023 01/16/2022, 08/10, 08/21/2021, Additional history exists COVID-19 Vaccine (2023- season) 2023 07/30/2021, 12/02/2020, 06/02/2020, Additional history exists Yearly Review of HCD 08/27/2024 08/28/2023 Influenza Vaccine (#1) 2024 3, 11/17/2020, 11/26/2019, Additional history exists Adult Tetanus Booster 11/25/2029 11/26/2019 , 03/20/2010, 05/15/2000 RSV Vaccines (1 - 1-dose 75+ series) 2037 Zoster Vaccine Completed 10/26/2018, 08/17/2018 Meningococcal B Vaccine Aged Out No l onger eligible based on patient's age to complete this topic Medical Devices Implanted Type Area Triage Assistant Device Identifier Shelf Expiration Date Model / Serial / Lot Beltran 50mm 5.5mm Ccm Curv - [id number] Implanted:Qty : 1 on 09/23/2023 by Brock Sawyer MD at [facility] Beltran N/A: Spine Lumbar Medtronic Inc [id number] / / Beltran 60mm 5.5mm Ccm Curv - [id number] Implanted:Qty : 1 on 09/23/2023 by Brock Sawyer MD at [facility] Beltran N/A: Spine Lumbar Medtronic Inc [id number] / / Set Screw Solera Brk Off - [id number] Implanted:Qty : 4 on 09/23/2023 by Brock Sawyer MD at [facility] Screw/An chor N/A: Spine Lumbar Medtronic Inc [id number] / / Insurance [employer] [place] [id number] MEDICA PRIME SOLUTION MEDICARE PART A & B Advance Directives For more information, please contact: [phone] * Full Code (Latest Code Status on File) Date Activated Date Inactivated Comments 09/24/2023 3:26 PM 09/25/2023 5:49 PM Question Answer Comments How was code status determined? Patient * Full Code Date Activated Date Inactivated Comments 09/23/2023 5:59 AM 09/23/2023 9:48 AM Question Answer Comments How was code status determined? Previous [facility] Care Teams Division Controller Relationship Specialty Start Date End Date [facility] [address] [place] [id number] PCP - Primary Care Clinic 09/18/22 [place] [address] [place] [address] PCP - General 05/20/23
--- OUTSIDE RECORDS SUMMARY | 2024-10-08 17:56 | XMS_ITS | Clinical Summary ---
Author Organization [facility] Address [address] [place] [address] Care Team Providers Care Contact Lens Inspector Name Role Phone Tommy Mcelroy MD Primary Care Provider [phone] Source Comments You are receiving this document as you are listed as the primary care provider,follow-up provider, or the patient has been referred to you for consultation.This is in compliance with the Medicare and[facility] System[facility] EHR Incentive Program,which states Providers who transition their patient to another setting of careor provider of care or refers their patient to another provider of care shouldprovide summary care record for each transition of care or referral. [facility] Allergies Active Allergy Reactions Criticality Noted Date Comments Antihistamines, Diphenhydramine-Type 06/16/2009 I have restless leg syndrome Phenothiazines Other, see comments 06/16/2009 Medications Pramipexole Dihydrochloride (MIRAPEX OR) None Entered Active LORazepam (ATIVAN OR) Active Active Problems Problem Noted Date Diagnosed Date Right foot pain 05/13/2022 Overview (05/13/2022): Added automatically from request for surgery [id number] Social History Tobacco Use Types Packs/Day Years Used Date Smoking Tobacco: Never Smokeless Tobacco: Never Tobacco Cessation:Counseling Given: Not Answered Comments Unknown Sex and Gender Information Value Date Recorded Sex Assigned at Not on file Legal Sex Female 6:26 AM CDT Gender Identity Not on file Sexual [...] HIV Screening (Preventive Services) 1978 Cholesterol 11/21/2007 Pneumococcal Vaccine 50+ Yrs (2 of 2 - PCV) 06/30/2013 06/30/2012 COVID-19 Vaccine (5 - season) 2023 07/30/2021, 12/02/2020, 06/02/2020, Additional history exists Influenza Vaccine (#1) 2024 , 11/26/2019, 02/20/2018, Additional history exists DTaP/Tdap/Td Vaccine (3 - Tdap) 11/25/2029 11/26/2019, 03/20/2010, 05/15/2000 RSV Vaccine (1 - 1-dose 75+ series) 2037 Zoster/Shingles Vaccine Completed 10/26/2018, 08/17 HepA Vaccine Aged Out No longer eligi ble based on patient's age to complete this topic HepB Vaccine Aged Out No longer eligi ble based on patient's age to complete this topic Hib Vaccine Aged Out No longer eligi ble based on patient's age to complete this topic IPV (Polio) Vaccine Aged Out No longe r eligible based on patient's age to complete this topic MCV4 Vaccine Aged Out No longer eligi ble based on patient's age to complete this topic Meningococcal B Vaccine Aged Out No l onger eligible based on patient's age to complete this topic Insurance MEDICARE MANAGED CARE MEDICA MEDICA PRIME SOLUTION Care Teams Contact Lens Inspector Relationship Specialty Start Date End Date Tommy Mcelroy MD [facility] [address] [place] [address] PCP - General Family Practice 05/07/22
--- OUTSIDE RECORDS SUMMARY | 2024-10-08 17:56 | XMS_ITS | Clinical Summary ---
Author Organization [facility] Address [address] , [address] [place] [address] Phone Care Team Providers Care Pattern Gater Name Role Phone Allegra Wong Conditions or Problems Problem Name Problem Code Onset Date Status Entry Date Provider Comment Standard Description Annotate Loss of consciousness 111435678 (SNOMED CT) 06/19 Active 06/19 Sai Steinberg MD Loss of consciousness Spells 81592791 (SNOMED CT) 06/19 Active 06/19 Sai Steinberg MD Stupor CARPAL TUNNEL SYNDROME 43944152 (SNOMED CT) 09/05 Active 09/05 Randal Figueroa MD Carpal tunnel syndrome LUMBAR RADICULOPATHY 551443028 (SNOMED CT) 08/08 Active 08/08 Randal Figueroa MD Lumbar radiculopathy NUMBNESS/TINGLI NG 782.0 (ICD-9-CM) 08/08 Active 08/08 Randal Figueroa MD Disturbance of skin sensation NUMBNESS/TINGLI NG 782.0 (ICD-9-CM) 03/11 Active 03/11 Makayla Chine DO Disturbance of skin sensation NECK PAIN 40319581 (SNOMED CT) 03/11 Active 03/11 Makayla E Aracely DO Neck pain COMMON MIGRAINE, NOT INTRACTABLE G43.009 (ICD-10-CM ) 03/11 Active 03/11 Makayla E Aracely DO Migraine without aura, not intractable, without status migrainosus Medications Medication Instructions Start Date Stop Date Generic Name [facility] Provider ZOFRAN 4 MG ORAL TABLET 1 every six hours as needed ZOFRAN 4 MG ORAL TABLET Sai Ni VICODIN 5-500 MG TABS 1-2 by mouth every four to six hours as needed VICODIN 5-500 MG TABS Sai Ni NALOXONE HCL 4 MG/0.1ML LIQD naloxone 52003256013 Sai Ni OXYCONTIN 20 MG T12A oxycodone 73898431480 Sai Ni LINZESS 145 MCG CAPS linaclotide 17646972889 Sai Ni ESCITALOPRAM OXALATE 20 MG TABS escitalopram oxalate 62895927196 Sai Ni OXYCODONE HCL 10 MG TABS oxycodone 33299968867 Sai Ni BUPROPION HCL ER (XL) 300 MG [id number] bupropion hcl 87321062647 Sai Ni SIMVASTATIN 20 MG TABS simvastatin 74229098732 Sai Ni TRAZODONE HCL 100 MG TABS trazodone 03373061264 Sai Ni OXYCODONE HCL 15 MG TABS oxycodone 45079101406 Sai Ni OXYCODONE HCL 5 MG TABS oxycodone 10380706325 Sai Ni PRAZOSIN HCL 1 MG CAPS prazosin 79757588144 Sai Ni TOPIRAMATE 100 MG TABS topiramate 29802675904 Sai Ni LAMOTRIGINE 200 MG TABS lamotrigine 89546093225 Sai Ni OMEPRAZOLE 40 MG CPDR omeprazole 46774731790 Sai Ni PRAMIPEXOLE DIHYDROCHLORIDE 0.5 MG TABS pramipexole 15113401297 Sai Ni ZOFRAN 4 MG ORAL TABLET 1 q 6 hrs prn ONDANSETRON HCL 87732027718 Makayla Chine DO VICODIN 5-500 MG TABS 1 -2 po q 4-6 hrs prn HYDROCODONE-KEVIN TAMINOPHEN 70140444344 Makayla Chine DO Medications Administered No information available. Allergies, Adverse Reactions, Alerts Allergy Name Reaction Description Start Date Severity Statu s Provider MIRTAZAPINE Mild Active Phi Carmine hayden METHOCARBAMOL Other (See Comments) Mild Acti ve Phi Castro DIPHENHYDRAMINE-ZINC ACETATE Other (See Comments) Mild Active Phi Carmine hayden CYCLOBENZAPRINE Other (See Comments) Mild Ac tive Phi Castro CYCLOBENZAPRINE HCL Mild Active Phi Matthew COMPAZINE Anaphylaxis Mild Active Phi Carmine hayden [id number] INE Mild Active Phi Reginaldoecki BACLOFEN Mild Active Phi Reginaldoe cki Results Date Name Value Unit Range Flag Description Internal Other: Authorizatio n - OBS PTSTAUTHDT DONE N PT Startin g Authorization Date Office Visit: Office Visit s yncope and collapse scans- no records - [place] SMOK STATUS current every day smoker Tobacco smoking status MEDS REVIEW Done Documenta tion of current medications (procedure) Internal Other: Authorizatio n - OBS [email or web address] Yes Authoriza tion: Release of Information - Authorize [facility] - Payment and Healthcare Operations ROIAUTHOTHER Yes Authoriz ation: Release of Information - Authorize Others/Insurance - Payment and Healthcare Operations HIECONSENT Yes Consent To Release information to the Health Information Exchange (HIE) [email or web address] Yes Authorizat ion: Authorization for [facility] to leave messages, voicemail, send text messages, send emails AUTHRELHCARE Yes Authoriz ation: Release/Retrieval of Information to/from Healthcare Facilities, Pharmacy Benefit Payers and Providers AUTHPRIVPRAC Yes Authoriz ation: Notice of privacy practices AUTHBENEFIT Yes Authoriza tion: Assignment of Benefits and Payment Agreement Internal Other: Verbal Autho rization/Emergency Contact - OBS VERBAL_EMER Done Verbal au thorization and emergency contact Replaced Document: (P) MAGNE SIUM, PHOSPHATE ( PHOSPHORUS), COMPREHENSIVE META ... AMMONIA P * umol/L Ammonia [Mass/volume] in Plasma SGPT (ALT) 8 U/L 6-29 N Alanine aminotransferase [Enzymatic activity/volume] in Serum or Plasma SGOT (AST) 10 U/L 10-35 N Aspartate aminotransferase [Enzymatic activity/volume] in Serum or Plasma ALK PHOS 109 U/L 37-153 N Alkaline clint sphatase [Enzymatic activity/volume] in Blood BILI TOTAL 0.3 mg/dL 0.2-1.2 N Bilirubin. total [Mass/volume] in Serum or Plasma A/G RATIO 2.1 (calc) 1.0-2.5 N Albumin/ Globulin [Mass Ratio] in Serum or Plasma GLOBULIN TOT 2.1 G/DL (CALC) g/dL 1.9-3.7 N Globulin [Mass/volume] in Serum ALBUMIN 4.5 g/dL 3.6-5.1 N Albumin [Mass/volume] in Serum or Plasma PROTEIN, TOT 6.6 g/dL 6.1-8.1 N Protein [Mass/volume] in Serum or Plasma CA 9.3 mg/dL 8.6-10.4 N Calcium [Mass/volume] in Serum or Plasma CO2 TOTAL 25 mmol/L 20-32 N carbon diox jaret, serum, total CHLORIDE 107 mmol/L 98-110 N Chloride [Moles/volume] in Serum or Plasma POTASSIUM 5.2 mmol/L 3.5-5.3 N Potassium [Moles/volume] in Serum or Plasma SODIUM 141 mmol/L 135-146 N Sodium [Moles/volume] in Serum or Plasma BUN/CREAT SEE NOTE: (calc) 6-22 Urea nitrogen/Creatinine [Mass Ratio] in Serum or Plasma ZZ-GE-unk 81 mL/min/1 .73m2 > OR = 60 N GE use only - for [employer] import when terms are not otherwise specified CREATININE 0.83 mg/dL 0.50-1.05 N Creatini ne [Mass/volume] in Serum or Plasma BUN 21 mg/dL 7-25 N Urea nitrogen [Mass/volume] in Serum or Plasma GLUCOSE SER 110 mg/dL 65-99 H Glucose [Mass/volume] in Serum or Plasma PO4 4.4 mg/dL 2.5-4.5 N Phosphate [Mass/volume] in Serum or Plasma MAGNESIUM 1.9 mg/dL 1.5-2.5 N Magnesium [Moles/volume] in Serum or Plasma Plan of Care Type Date Detail Pending order Follow up [facility] Pending order Follow up [facility] Pending Order exclud ed from report: Pending order EEG (40min) Pending Order exclud ed from report: Pending order EEG (40min) Pending order MRI-Brain W/WO Pending order Ammonia Pending order Comp Metabolic P robles (14) Pending order Magnesium Serum Pending order Phosphorus Pending order Patient Instruct ions Procedures Code Procedure Name Date Entry Date ORDERS [place] [address] [place] [address] EEG (40min) [id number] MRI-Brain W/WO CPT-15508 MRI Brain W/WO CPT-I6556U ProHance Gadolinium- based MR Contrast - 15 ml vial ORDERS Ammonia ORDERS Patient Instructions [facility]-[id number] Documentation of current medicatio ns ORDERS Comp Metabolic Panel (14) 20 03/07/09 ORDERS Magnesium Serum ORDERS Phosphorus CPT-69833 Motor NCS x 3 CPT-50201 Sensory NCS x 4 CPT-10026 Motor NCS x 3 CPT-82536 Sensory NCS x 3 CPT-52305 EMG with NCS (5+ muscles) - 1 limb 08/08 Vital Signs Date Name Value Unit Description Weight Measured 165 [lb_av] weight E& M Weight Measured 165 [lb_av] weight E& M Immunizations No information available. Advance Directives No information available.
--- OUTSIDE RECORDS SUMMARY | 2024-10-08 17:56 | XMS_ITS | Clinical Summary ---
Author Organization [facility] Address [address] [place] [address] Care Team Providers Care Automobile Salesman Name Role Phone Tommy Mcelroy MD Primary Care Provider [phone] Allergies Active Allergy Reactions Criticality Noted Date Comments Baclofen 12/23/2012 Diphenhydramine-Zinc Acetate Other (See Comments) 04/24/2011 Makes restless leg symptoms worse. Compazine Anaphylaxis 10/23/2004 Cyclobenzaprine Other (See Comments) 04/24/2011 Makes restless leg symptoms worse. Cyclobenzaprine Hcl 12/23/2012 Methocarbamol Other (See Comments) 04/24/2011 Makes restless leg symptoms worse. Mirtazapine 12/23/2012 Lhobytuukqtl-Kslfztl-Vnds ine 12/23/2012 Medications pramipexole (MIRAPEX) 0.125 MG [...] on file Legal Sex Female 3:09 AM WASH TUB MACHINE OPERATOR Gender Identity Not on file Sexual Orientation Not on file Last Filed Vital Signs Vital Sign Reading Time Taken Comments Blood Pressure 105/66 01/02/2024 1:30 PM WASH TUB MACHINE OPERATOR Pulse 87 01/02/2024 11:36 AM WASH TUB MACHINE OPERATOR Temperature 36.4 C (97.6 F) 01/02/2024 11:36 AM WASH TUB MACHINE OPERATOR Respiratory Rate 16 01/02/2024 1:30 PM WASH TUB MACHINE OPERATOR Oxygen Saturation 98% 01/02/2024 1:30 PM WASH TUB MACHINE OPERATOR Inhaled Oxygen Concentration - - Weight 67.1 kg (148 lb) 01/02/2024 11:36 AM WASH TUB MACHINE OPERATOR Height 175.3 cm (5' 9) 01/02/2024 11:36 AM WASH TUB MACHINE OPERATOR Body Mass Index 21.86 01/02/2024 11:36 AM WASH TUB MACHINE OPERATOR Plan of Treatment Health Maintenance Due Date Last Done Comments ADVANCE CARE PLANNING 1962 ANNUAL REVIEW OF HM ORDERS [address] CT COLONOGRAPHY 1962 FIT 1962 FLEX SIG 1962 sDNA (Cologuard) 1962 COLONOSCOPY 1972 COLORECTAL CANCER SCREENING 1972 HIV SCREENING 1977 HEPATITIS C SCREENING 1980 MEDICARE ANNUAL WELLNESS VISIT 1980 LIPID 2002 MAMMO SCREENING 11/07/2011 11/06/2009 LUNG CANCER SCREENING 2012 PNEUMOCOCCAL VACCINE 50+ YEARS (2 of 2 - PCV) 06/30/2013 06/30/2012 COVID-19 VACCINE ( season) 2023 08/12/2023, 07/30/2021, 12/02/2020, Additional history exists PHQ-2 (once per calendar year) 2024 INFLUENZA VACCINE (#1) 2024 , 11/17/2020, 11/26/2019, Additional history exists BMP 01/01/2025 01/02/2024, 11/10, 12/23/2012, Additional history exists PAP 11/21/2025 11/21/2022, 11/21/2022 DIABETES SCREENING 01/01/2027 01/02/2024, 1 , 03/04/2014, Additional history exists DTAP/TDAP/TD VACCINE (3 - Td or Tdap) 11/25/2029 11/26/2019, 03/20/2010, 05/15/2000 RSV VACCINE (1 - 1-dose 75+ series) 2037 ZOSTER VACCINE Completed 10/26/2018, 08/17/2018 HPV VACCINE (No Doses Required) Completed MENINGITIS VACCINE Aged Out No longer eligible based on patient's age to complete this topic Medical Devices Implanted Type Area Nuclear Waste Management Engineer Device Identifier Shelf Expiration Date Model / Serial / Lot Graft Bone Foam Pack Vitoss 10ml Bio Active [id number] Implanted:Qty: 1 on 05/02/2011 at [facility] N/A: Spine Lumbar 10/04/[id number] / / [id number] Iom Supplies Implanted:Qty: 1 on 05/02/2011 at [facility] Cell Saver Standby Implanted:Qty: 1 on 05/02/2011 at [facility] Graft Bone Crush Canc 15ml [id number] Implanted:Qty: 1 on 05/02/2011 at [facility] N/A: Spine Lumbar [id number] / [id number] / 14x12 Align Implanted:Qty: 1 on 05/02/2011 at [facility] N/A: Spine Lumbar [id number] / / [id number] 16x12 Align Implanted:Qty: 1 on 05/02/2011 at [facility] N/A: Spine Lumbar [id number] / / [id number] 25mm Plate Implanted:Qty: 1 on 05/02/2011 at [facility] N/A: Spine Lumbar [id number] / / [id number] 25mm Screw Implanted:Qty: 4 on 05/02/2011 at [facility] N/A: Spine Lumbar [id number] / / [id number] Imp Washer Syn [place] 13.5x5.5mm Implanted:Qty: 2 on 05/02/2011 at [facility] N/A: Spine Lumbar 219.951 / / 0106 [id number] Imp Scr Syn Canc 6.0n436um Ft Ti Implanted:Qty: 2 on 05/02/2011 at [facility] N/A: Spine Lumbar 418.025 / / 0106 [id number] Spf-Plus 60/M Implantable Spinal Fusion Stimulator Implanted:Qty: 1 on 03/02/2014 by Brock Sawyer MD at [facility] N/A: Back [employer] 07/03/2015 10-1398M / [id number] / Graft Bone Foam Pack Vitoss 10ml Bio Active [id number] Implanted:Qty: 1 on 03/02/2014 by Brock Sawyer MD at [facility] N/A: Back ORTHOVITA 09/10/2015 [id number] / / [id number] Imp Scr Medt 5.5/6.0mm Solera 6.5x45mm Ma [id number] Implanted:Qty: 4 on 03/02/2014 by Brock Sawyer MD at [facility] N/A: Back [employer] [id number] / / [id number] 2014 Imp Scr Medt 5.5/6.0mm Solera 8.5x70mm Ma [id number] Implanted:Qty: 2 on 03/02/2014 by Brock Sawyer MD at [facility] N/A: Back [employer] [id number] / / [id number] 01 MAR 2014 Imp Scr Set Medt Solera Break Off 5.5mm Ti [id number] Implanted:Qty: 6 on 03/02/2014 by Brock Sawyer MD at [facility] N/A: Back [employer] [id number] / / [id number] 01 MAR 2014 Imp Beltran Medt Solera Cvd 5.6p973se Ti [id number] Implanted:Qty: 2 on 03/02/2014 by Brock Sawyer MD at [facility] N/A: Back [employer] [id number] / / [id number] 02 MAR 2014 Imp Scr Syn Can 4.0x20mm Ft Ss 206.020 Implanted:Qty: 2 on 03/02/2014 by Brock Sawyer MD at [facility] N/A: Back SYNTHES-STRATEC 206.020 / / Impulse Implanted:Qty: 1 on 03/02/2014 by Brock Sawyer MD at [facility] Explanted Type Area Nuclear Waste Management Engineer Device Identifier Shelf Expiration Date Model / Serial / Lot Imp Scr Danek Sext Can 6.5x40mm Legacy Ti Implanted:Qty: 2 on 05/02/2011 at [facility] Explanted:Qty: 2 on 03/02/2014 at [facility] N/A: Spine Lumbar [id number] / / [id number] 01MAY2011 Imp Scr Danek Set G4 Internal Hex [id number] Implanted:Qty: 4 on 05/02/2011 at [facility] Explanted:Qty: 4 on 03/02/2014 at [facility] N/A: Spine Lumbar [id number] / / [id number] 01MAY2011 Imp Beltran Danek Sext 60mm Ti [id number] Implanted:Qty: 2 on 05/02/2011 at [facility] Explanted:Qty: 2 on 03/02/2014 at [facility] N/A: Spine Lumbar [id number] / / [id number] 01MAY2011 Imp Scr Danek Sext Can 6.5x45mm Legacy Ti Implanted:Qty: 2 on 05/02/2011 at [facility] Explanted:Qty: 2 on 03/02/2014 at [facility] N/A: Spine Lumbar [id number] / / [id number] 01MAY2011 Description:BILATERAL SCREWS FROM S1, SCREW HEAD REMOVED, SCREW SHAFT REMAINS Procedures Procedure Name Priority Date/Time Associated Diagnosis Comments BASIC METABOLIC PANEL STAT 01/02/2024 12:11 PM WASH TUB MACHINE OPERATOR from Last 3 Months or Most Recently Relevant to Health Maintenance Results * (ABNORMAL) Basic metabolic panel (BMP) (01/02/2024 12:11 PM WASH TUB MACHINE OPERATOR) Sodium 136 135 - 145 mmol/L 01/02/2024 12:43 PM WASH TUB MACHINE OPERATOR LABORATORY Potassium 3.8 3.4 - 5.3 mmol/L 01/02/2024 12:43 PM WASH TUB MACHINE OPERATOR LABORATORY Chloride 102 98 - 107 mmol/L 01/02/2024 12:43 PM WASH TUB MACHINE OPERATOR LABORATORY Carbon Dioxide (CO2) 22 22 - 29 mmol/L 01/02/2024 12:43 PM WASH TUB MACHINE OPERATOR LABORATORY Anion Gap 12 7 - 15 mmol/L 01/02/2024 12:43 PM WASH TUB MACHINE OPERATOR LABORATORY Urea Nitrogen 13.9 8.0 - 23.0 mg/dL 01/02/2024 12:43 PM [facility] Creatinine 0.78 0.51 - 0.95 mg/dL 01/02/2024 12:43 PM WASH TUB MACHINE OPERATOR LABORATORY GFR Estimate 86 >60 mL/min/1.7 3m2 01/02/2024 12:43 PM WASH TUB MACHINE OPERATOR [facility] Comment:eGFR calculated us2020 CKD-EPI equation. Calcium 8.9 8.8 - 10.4 mg/dL 01/02/2024 12:43 PM WASH TUB MACHINE OPERATOR [facility] Comment:Reference intervals for this test were updated on 08/26/2023 to reflect our healthy population more accurately. There may be differences in the flagging of prior results with similar values performed with this method. Those prior results can be interpreted in the context of the updated reference intervals. Glucose 127(H) 70 - 99 mg/dL 01/02/2024 12:43 PM WASH TUB MACHINE OPERATOR [facility] Blood BLOOD SPECIMEN / Unknown Venipuncture / Unknown 01/02/2024 12:11 PM WASH TUB MACHINE OPERATOR 01/02/2024 12:23 PM WASH TUB MACHINE OPERATOR us Kimberly Rutherford PA-C LAB - BLOOD ORDERABLES Final Result [facility] [address] (1st floor, no room number) [place] [address], [facility] from Last 3 Months or Most Recently Relevant to Health Maintenance Insurance [employer] MEDICARE MEDICA PRIME SOLUTION MEDICARE OTHER OTHER none (Work) [address] [place] [address] [facility] [employer] Advance Directives For more information, please contact: [phone] * Full Code (Latest Code Status on File) Date Activated Date Inactivated Comments 05/02/2011 8:26 PM 05/06/2011 2:41 PM * Full Code Date Activated Date Inactivated Comments 05/02/2011 2:17 PM 05/02/2011 8:26 PM Care Teams Automobile Salesman Relationship Specialty Start Date End Date Tommy Mcelroy MD PCP - General Family Practice 04/16/11
[2024-10-08 18:04] VITALS: BP 137/91; PULSE 81; RESP 16; TEMP 36.6; O2SAT 95; BMI 23.8
--- NOTE | 2024-10-08 18:16 | CRLHL7_ITS ---
For Patients: As a result of the Century Cures Act, medical imaging exams and procedure reports are released immediately into your electronic medical record. You may view this report before your referring provider. If you have questions, please contact your health care provider. INDICATION: Abdominal pain, nausea. TECHNIQUE: CT abdomen and pelvis acquired with 64 cc Isovue 370 IV contrast. COMPARISON: June 26, 2022. FINDINGS: Lower chest: Scattered atelectasis. Liver: Unremarkable. Normal in size and attenuation. No suspicious masses. Gallbladder and bile ducts: Prior cholecystectomy with reservoir effect. Pancreas: Unremarkable. No mass or inflammation. Spleen: Unremarkable. Normal in size. No masses. Adrenal glands: Unremarkable. No nodules. Kidneys: Unremarkable. No suspicious masses, stones, or hydronephrosis. GI tract: Moderate colonic stool burden. Normal in caliber. No sign of mass or inflammation. Vasculature: Abdominal aorta is normal in caliber. Mesenteric arteries are patent. Lymph nodes: No lymphadenopathy. Peritoneum/Abdominal Wall: Unremarkable. No sign of mass or infiltration. No free air or significant free fluid. Pelvis: Unremarkable. Bones: Prior anterior and posterior lumbar hardware fixation. IMPRESSION: No acute intra-abdominal/pelvic abnormality. Moderate colonic stool burden. Please note that all CT scans at this facility use dose modulation, iterative reconstruction, and/or weight-based dosing when appropriate to reduce radiation dose to as low as reasonably achievable. Dictated by Ellis Ruth MD @ 10/08/2024 7:52:32 PM (Electronically Signed)
--- OUTSIDE RECORDS SUMMARY | 2024-10-08 18:28 | XMS_ITS | Clinical Summary ---
Author Organization [facility] Address [address] , [address] [place] [address] Phone Care Team Providers Care Supervisor Model Making Name Role Phone Allegra Wong Conditions or Problems Problem Name Problem Code Onset Date Status Entry Date Provider Comment Standard Description Annotate Loss of consciousness 373820682 (SNOMED CT) 06/19 Active 06/19 Sai Steinberg MD Loss of consciousness Spells 03269680 (SNOMED CT) 06/19 Active 06/19 Sai Steinberg MD Stupor CARPAL TUNNEL SYNDROME 60212305 (SNOMED CT) 09/05 Active 09/05 Randal Figueroa MD Carpal tunnel syndrome LUMBAR RADICULOPATHY 902368857 (SNOMED CT) 08/08 Active 08/08 Randal Figueroa MD Lumbar radiculopathy NUMBNESS/TINGLI NG 782.0 (ICD-9-CM) 08/08 Active 08/08 Randal Figueroa MD Disturbance of skin sensation NUMBNESS/TINGLI NG 782.0 (ICD-9-CM) 03/11 Active 03/11 Makayla Chine DO Disturbance of skin sensation NECK PAIN 13660559 (SNOMED CT) 03/11 Active 03/11 Makayla E Aracely DO Neck pain COMMON MIGRAINE, NOT INTRACTABLE G43.009 (ICD-10-CM ) 03/11 Active 03/11 Makayla E Aracely DO Migraine without aura, not intractable, without status migrainosus Medications Medication Instructions Start Date Stop Date Generic Name [facility] Provider ZOFRAN 4 MG ORAL TABLET 1 every six hours as needed ZOFRAN 4 MG ORAL TABLET Sai Ni VICODIN 5-500 MG TABS 1-2 by mouth every four to six hours as needed VICODIN 5-500 MG TABS Sai Ni NALOXONE HCL 4 MG/0.1ML LIQD naloxone 17950850625 Sai Ni OXYCONTIN 20 MG T12A oxycodone 71284394828 Sai Ni LINZESS 145 MCG CAPS linaclotide 84108845452 Sai Ni ESCITALOPRAM OXALATE 20 MG TABS escitalopram oxalate 30842645025 Sai Ni OXYCODONE HCL 10 MG TABS oxycodone 02311985560 Sai Ni BUPROPION HCL ER (XL) 300 MG [id number] bupropion hcl 70227204071 Sai Ni SIMVASTATIN 20 MG TABS simvastatin 47605187223 Sai Ni TRAZODONE HCL 100 MG TABS trazodone 61095624260 Sai Ni OXYCODONE HCL 15 MG TABS oxycodone 39665180819 Sai Ni OXYCODONE HCL 5 MG TABS oxycodone 59678495707 Sai Ni PRAZOSIN HCL 1 MG CAPS prazosin 82195522444 Sai Ni TOPIRAMATE 100 MG TABS topiramate 47633838480 Sai Ni LAMOTRIGINE 200 MG TABS lamotrigine 67988036989 Sai Ni OMEPRAZOLE 40 MG CPDR omeprazole 09522955809 Sai Ni PRAMIPEXOLE DIHYDROCHLORIDE 0.5 MG TABS pramipexole 24610844890 Sai Ni ZOFRAN 4 MG ORAL TABLET 1 q 6 hrs prn ONDANSETRON HCL 22396966797 Makayla Chine DO VICODIN 5-500 MG TABS 1 -2 po q 4-6 hrs prn HYDROCODONE-KEVIN TAMINOPHEN 62491983522 Makayla Chine DO Medications Administered No information [...] COMPAZINE Anaphylaxis Mild Active Phi Carmine hayden [id number] INE Mild Active Phi Reginaldoecki BACLOFEN Mild Active Phi Reginaldoe cki Results Date Name Value Unit Range Flag Description Internal Other: Authorizatio n - OBS PTSTAUTHDT DONE N PT Startin g Authorization Date Office Visit: Office Visit s yncope and collapse scans- no records - [place] SMOK STATUS current every day smoker Tobacco [...] Date Entry Date ORDERS [place] [address] [place] [address] EEG (40min) [id number] MRI-Brain W/WO CPT-05893 MRI Brain W/WO CPT-W5563W ProHance Gadolinium- based MR Contrast - 15 ml vial ORDERS Ammonia ORDERS Patient Instructions [facility]-[id number] Documentation of current medicatio ns ORDERS Comp Metabolic Panel (14) 20 03/07/09 ORDERS Magnesium Serum ORDERS Phosphorus CPT-19274 Motor NCS x 3 CPT-85359 Sensory NCS x 4 CPT-26953 Motor NCS x 3 CPT-04614 Sensory NCS x 3 CPT-30302 EMG with NCS (5+ muscles) - 1 limb 08/08 Vital Signs Date Name Value Unit Description Weight Measured 165 [lb_av] weight E& M Weight Measured 165 [lb_av] weight E& M Immunizations No information available. Advance Directives No information available.
[2024-10-08 18:36] LABS: Lactate* 2.4 mmol/L (0.5-1.9)
[2024-10-08 18:40] LABS: Hematocrit 37.1 % (33.0-51.0); Hemoglobin* 11.9 gm/dL (12.0-16.0); Immature Granulocytes Abs Auto 0.01 K/uL (0.00-0.30); Immature Granulocytes Pct Auto 0.2 %; Lymphocytes Absolute Auto 2.40 K/uL (0.90-2.90); Mean Corpuscular HGB Conc 32 gm/dL (32-36); Mean Corpuscular Hemoglobin 28 pg (26-34); Mean Corpuscular Volume 86 fL (80-100); RDW Coefficient of Variation % 15.1 % (11.5-15.5); Red Blood Count 4.31 m/uL (4.00-5.20); White Blood Count* 6.15 K/uL (4.50-11.00)
[2024-10-08 18:44] LABS: Slide Review Reflex No
[2024-10-08] MEDS: ONDANSETRON 2 MG/ML inj 4 MG IVP (18:49)
[2024-10-08 18:52] LABS: Albumin* 4.6 g/dL (3.3-5.0); Chloride* 103 mmol/L (96-114); Potassium* 3.8 mmol/L (3.6-5.1); Sodium* 137 mmol/L (135-149)
[2024-10-08] MEDS: diazePAM 5 MG/ML inj IV ×2 (18:52→21:49)
[2024-10-08 18:54] LABS: Blood Urea Nitrogen* 20 mg/dL (7-30); Creatinine* 0.8 mg/dL (0.5-1.5); Est. Creatinine Clearance* 46.73; Estimated Glomerular Filt Rate 84 ml/min
[2024-10-08 18:55] LABS: Alanine Aminotransferase* 12 U/L (4-35); Alkaline Phosphatase* 76 U/L (40-150); Anion Gap 10 mEq/L (7-15); Aspartate Amino Transferase* 19 U/L (12-35); Bilirubin Total* 0.4 mg/dL (0.1-1.5); Calcium* 9.7 mg/dL (8.4-10.6); Carbon Dioxide* 24 mmol/L (20-32); Glucose* 102 mg/dL (60-115); Total Protein* 6.9 g/dL (6.0-8.3)
[2024-10-08] MEDS: KETAMINE HCL 100 MG/ML inj 30 MG IVP ×2 (19:42→22:16)
[2024-10-08 20:33] VITALS: BP 130/79; PULSE 73; RESP 15; O2SAT 95
[2024-10-08 20:39] VITALS: BP 130/79; PULSE 74; RESP 18; TEMP 36.6; O2SAT 96
[2024-10-08] MEDS: METHYLNALTREXONE BROMIDE 12 MG/0.6 ML VIAL SUBCUT (21:19)
[2024-10-08] MEDS: MAGNESIUM CITRATE 300 ML SOLUTION 100 ML PO (21:52)
[2024-10-08 22:58] LABS: Lactate* 0.7 mmol/L (0.5-1.9)
[2024-10-08 23:05] VITALS: BP 129/82; PULSE 72; RESP 18; TEMP 36.6; O2SAT 96
== END 2024-10-08 23:45 | disposition home or self-care (01) ==
PROVIDERS: Emergency Provider Emergency Medicine; PCP Family Medicine
DX: R10.84 Generalized abdominal pain (principal); K59.00 Constipation, unspecified
CPT/HCPCS: 36415; 74177; 80053; 81001; 83605; 83690; 85025; 94761; 96374; 96375; 99283; 99284; A9270; J1885; J2212; J2405; J3360; J3490; J7030; Q9967

== ENCOUNTER 2024-10-12 17:04 | Emergency (ER) | payer MEDICARE, OTHER, SELFPAY ==
--- OUTSIDE RECORDS SUMMARY | 2024-10-12 17:09 | XMS_ITS | Clinical Summary ---
Author Organization [facility] Address [address] [place] [address] Care Team Providers Care Split Leather Department Supervisor Name Role Phone Tommy Mcelroy MD Primary Care Provider [phone] Source Comments You are receiving this document as you are listed as the primary care provider,follow-up provider, or the patient has been referred to you for consultation.This is in compliance with the Medicare and[facility] EHR Incentive Program,which states Providers who transition their patient to another setting of careor provider of care or refers their patient to another provider of care shouldprovide summary care record for each transition of care or referral. [facility] Allergies Active Allergy Reactions Criticality Noted Date Comments Antihistamines, Diphenhydramine-Type 06/16/2009 I have restless leg syndrome Phenothiazines Other, see comments 06/16/2009 Medications Pramipexole Dihydrochloride (MIRAPEX OR) None Entered Active LORazepam (ATIVAN OR) Active Active Problems Problem Noted Date Diagnosed Date Right foot pain 05/13/2022 Overview (05/13/2022): Added automatically from request for surgery [id number] Social History Tobacco Use Types Packs/Day Years [...] CARE MEDICA MEDICA PRIME SOLUTION Care Teams Split Leather Department Supervisor Relationship Specialty Start Date End Date Tommy Mcelroy MD [facility] [address] [place] [address] PCP - General Family Practice 05/07/22
--- OUTSIDE RECORDS SUMMARY | 2024-10-12 17:09 | XMS_ITS | Clinical Summary ---
Author Organization [facility] Address [address] [place] [address] Care Team Providers Care Scuba Diving Teacher Name Role Phone Tommy Mcelroy MD Primary Care Provider [phone] Allergies Active Allergy Reactions Criticality Noted Date Comments Baclofen 12/23/2012 Diphenhydramine-Zinc Acetate Other (See Comments) 04/24/2011 Makes restless leg symptoms worse. Compazine Anaphylaxis 10/23/2004 Cyclobenzaprine Other (See Comments) 04/24/2011 Makes restless leg symptoms worse. Cyclobenzaprine Hcl 12/23/2012 Methocarbamol Other (See Comments) 04/24/2011 Makes restless leg symptoms worse. Mirtazapine 12/23/2012 Tsiqbdwzfuzv-Abdcluu-Extf ine 12/23/2012 Medications pramipexole (MIRAPEX) 0.125 MG [...] on file Legal Sex Female 3:09 AM SHAREMILKER Gender Identity Not on file Sexual Orientation Not on file Last Filed Vital Signs Vital Sign Reading Time Taken Comments Blood Pressure 105/66 01/02/2024 1:30 PM SHAREMILKER Pulse 87 01/02/2024 11:36 AM SHAREMILKER Temperature 36.4 C (97.6 F) 01/02/2024 11:36 AM SHAREMILKER Respiratory Rate 16 01/02/2024 1:30 PM SHAREMILKER Oxygen Saturation 98% 01/02/2024 1:30 PM SHAREMILKER Inhaled Oxygen Concentration - - Weight 67.1 kg (148 lb) 01/02/2024 11:36 AM SHAREMILKER Height 175.3 cm (5' 9) 01/02/2024 11:36 AM SHAREMILKER Body Mass Index 21.86 01/02/2024 11:36 AM SHAREMILKER Plan of Treatment Health Maintenance Due Date [...] this topic Medical Devices Implanted Type Area Sales Mgr Device Identifier Shelf Expiration Date Model / Serial / Lot Graft Bone Foam Pack Vitoss 10ml Bio Active [id number] Implanted:Qty: 1 on 05/02/2011 at [facility] N/A: Spine Lumbar 10/04/[id number] / / [id number] Iom Supplies Implanted:Qty: 1 on 05/02/2011 at [facility] Cell Saver Standby Implanted:Qty: 1 on 05/02/2011 at [facility] Graft Bone Crush Canc 15ml [id number] Implanted:Qty: 1 on 05/02/2011 at [facility] N/A: Spine Lumbar [id number] / [id number] / 14x12 Align Implanted:Qty: 1 on 05/02/2011 at [facility] N/A: Spine Lumbar [id number] / / [id number] 16x12 Align Implanted:Qty: 1 on 05/02/2011 at [facility] N/A: Spine Lumbar [id number] / / [id number] 25mm Plate Implanted:Qty: 1 on 05/02/2011 at [facility] N/A: Spine Lumbar [id number] / / [id number] 25mm Screw Implanted:Qty: 4 on 05/02/2011 at [facility] N/A: Spine Lumbar [id number] / / [id number] Imp Washer Syn [place] 13.5x5.5mm Implanted:Qty: 2 on 05/02/2011 at [facility] N/A: Spine Lumbar 219.951 / / 0106 [id number] Imp Scr Syn Canc 6.4v042mc Ft Ti Implanted:Qty: 2 on 05/02/2011 at [facility] N/A: Spine Lumbar 418.025 / / 0106 [id number] Spf-Plus 60/M Implantable Spinal Fusion Stimulator Implanted:Qty: 1 on 03/02/2014 by Brock Sawyer MD at [facility] N/A: Back BIOMET INC 07/03/2015 10-1398M / [id number] / Graft Bone Foam Pack Vitoss 10ml Bio Active [id number] Implanted:Qty: 1 on 03/02/2014 by Brock Sawyer MD at [facility] N/A: Back ORTHOVITA 09/10/2015 [id number] / / [id number] Imp Scr Medt 5.5/6.0mm Solera 6.5x45mm Ma [id number] Implanted:Qty: 4 on 03/02/2014 by Brock Sawyer MD at [facility] N/A: Back MEDTRONIC INC [id number] / / [id number] 2014 Imp Scr Medt 5.5/6.0mm Solera 8.5x70mm Ma [id number] Implanted:Qty: 2 on 03/02/2014 by Brock Sawyer MD at [facility] N/A: Back MEDTRONIC INC [id number] / / [id number] 01 MAR 2014 Imp Scr Set Medt Solera Break Off 5.5mm Ti [id number] Implanted:Qty: 6 on 03/02/2014 by Brock Sawyer MD at [facility] N/A: Back MEDTRONIC INC [id number] / / [id number] 01 MAR 2014 Imp Beltran Medt Solera Cvd 5.1e141fv Ti [id number] Implanted:Qty: 2 on 03/02/2014 by Brock Sawyer MD at [facility] N/A: Back MEDTRONIC INC [id number] / / [id number] 02 MAR 2014 Imp Scr Syn Can 4.0x20mm Ft Ss 206.020 Implanted:Qty: 2 on 03/02/2014 by Brock Sawyer MD at [facility] N/A: Back SYNTHES-STRATEC 206.020 / / Impulse Implanted:Qty: 1 on 03/02/2014 by Brock Sawyer MD at [facility] Explanted Type Area Sales Mgr Device Identifier Shelf Expiration Date Model / Serial / Lot Imp Scr Danek Sext Can 6.5x40mm Legacy Ti Implanted:Qty: 2 on 05/02/2011 at [facility] Explanted:Qty: 2 on 03/02/2014 at [facility] N/A: Spine Lumbar [id number] / / [id number] 01MAY2011 Imp Scr Danek Set G4 Internal Hex [id number] Implanted:Qty: 4 on 05/02/2011 at [facility] Explanted:Qty: 4 on 03/02/2014 at [facility] N/A: Spine Lumbar [id number] / / [id number] 01MAY2011 Imp Beltran Danek Sext 60mm Ti [id number] Implanted:Qty: 2 on 05/02/2011 at [facility] Explanted:Qty: 2 on 03/02/2014 at [facility] N/A: Spine Lumbar [id number] / / [id number] 01MAY2011 Imp Scr Danek Sext Can 6.5x45mm Legacy Ti Implanted:Qty: 2 on 05/02/2011 at [facility] Explanted:Qty: 2 on 03/02/2014 at [facility] N/A: Spine Lumbar [id number] / / [id number] 01MAY2011 Description:BILATERAL SCREWS FROM S1, SCREW HEAD REMOVED, SCREW SHAFT REMAINS Procedures Procedure Name Priority Date/Time Associated Diagnosis Comments BASIC METABOLIC PANEL STAT 01/02/2024 12:11 PM SHAREMILKER from Last 3 Months or Most Recently Relevant to Health Maintenance Results * (ABNORMAL) Basic metabolic panel (BMP) (01/02/2024 12:11 PM SHAREMILKER) Sodium 136 135 - 145 mmol/L 01/02/2024 12:43 PM [facility] Potassium 3.8 3.4 - 5.3 mmol/L 01/02/2024 12:43 PM [facility] Chloride 102 98 - 107 mmol/L 01/02/2024 12:43 PM [facility] Carbon Dioxide (CO2) 22 22 - 29 mmol/L 01/02/2024 12:43 PM [facility] Anion Gap 12 7 - 15 mmol/L 01/02/2024 12:43 PM [facility] Urea Nitrogen 13.9 8.0 - 23.0 mg/dL 01/02/2024 12:43 PM [facility] Creatinine 0.78 0.51 - 0.95 mg/dL 01/02/2024 12:43 PM [facility] GFR Estimate 86 >60 mL/min/1.7 3m2 01/02/2024 12:43 PM [facility] Comment:eGFR calculated us2020 CKD-EPI equation. Calcium 8.9 8.8 - 10.4 mg/dL 01/02/2024 12:43 PM [facility] Comment:Reference intervals for this test were updated on 08/26/2023 to reflect our healthy population more accurately. There may be differences in the flagging of prior results with similar values performed with this method. Those prior results can be interpreted in the context of the updated reference intervals. Glucose 127(H) 70 - 99 mg/dL 01/02/2024 12:43 PM [facility]EMILK[facility] Blood BLOOD SPECIMEN / Unknown Venipuncture / Unknown 01/02/2024 12:11 PM SHAREMILKER 01/02/2024 12:23 PM SHAREMILKER us Kimberly Rutherford PA-C LAB - BLOOD ORDERABLES Final Result [facility] [address] (1st floor, no room number) [place] [address], [facility] from Last 3 Months or Most Recently Relevant to Health Maintenance Insurance [facility] MEDICARE MEDICA PRIME SOLUTION MEDICARE OTHER OTHER none (Work) [id number] [place] [id number] [facility] [employer] [employer] Advance Directives For more information, please contact: [phone] * Full Code (Latest Code Status on File) Date Activated Date Inactivated Comments 05/02/2011 8:26 PM 05/06/2011 2:41 PM * Full Code Date Activated Date Inactivated Comments 05/02/2011 2:17 PM 05/02/2011 8:26 PM Care Teams Scuba Diving Teacher Relationship Specialty Start Date End Date Tommy Mcelroy MD PCP - General Family Practice 04/16/11
--- OUTSIDE RECORDS SUMMARY | 2024-10-12 17:09 | XMS_ITS | Clinical Summary ---
Author Organization [facility] Address [address] [place] [address] [place] [address] Care Team Providers Care Chemical Process Project Engineer Name Role Phone [facility]- Unava ilable Hayes Mcelroy MD Primary Care Provider [phone] Allergies Active Allergy Reactions Criticality Noted Date Comments Atorvastatin Other 09/30/2019 Skin irritation around eyes Baclofen Nausea Low 12/23/2012 Grhqvnfgpusg-Mhtmtls-Psdivb e Low 12/23/2012 Cyclobenzaprine Low 04/24/2011 Other [...] 3 Active naloxone (NARCAN) 4 mg/actuation Nasal [place] Administer one dose (4 mg) into nostril [...] (11/11/2022): Added automatically from request for surgery [id number] Chronic anemia 08/22/2021 Type 2 diabetes mellitus [...] 0.6 oz pur e alcohol) [facility] [employer] Answer Date Recorded In the past 12 months has [employer], gas, oil, or water [employer] threatened to shut off services in your [...] 01/16/2023 01/16/2022, 08/10, 08/21/2021, Additional history exists Yearly Review of HCD 08/27/2024 08/28/2023 COVID-19 Vaccine (2024- season) 2024 07/30/2021, 12/02/2020, 06/02/2020, Additional history exists Influenza Vaccine (#1) 2024 , 11/17/2020, 11/26/2019, Additional history exists Adult Tetanus Booster 11/25/2029 11/26/2019 , 03/20/2010, 05/15/2000 RSV Vaccines (1 - 1-dose 75+ series) 2037 Zoster Vaccine Completed 10/26/2018, 08/17/2018 Meningococcal B Vaccine Aged Out No l onger eligible based on patient's age to complete this topic Medical Devices Implanted Type Area Research Epidemiologist Device Identifier Shelf Expiration Date Model / Serial / Lot Beltran 50mm 5.5mm Ccm Curv - [id number] Implanted:Qty : 1 on 09/23/2023 by Brock Sawyer MD at [facility] Beltran N/A: Spine Lumbar Medtronic Inc [id number] / / Beltran 60mm 5.5mm Ccm Curv - [id number] Implanted:Qty : 1 on 09/23/2023 by Brock Sawyer MD at [facility] Beltran N/A: Spine Lumbar Medtronic Inc [id number] / / Set Screw Solera Brk Off - [id number] Implanted:Qty : 4 on 09/23/2023 by Brock Sawyer MD at [facility] Screw/An chor N/A: Spine Lumbar Medtronic Inc [id number] / / Insurance [employer] [place] [id number] MEDICA PRIME SOLUTION MEDICARE PART A & B Advance Directives For more information, please contact: [phone] * Full Code (Latest Code Status on File) Date Activated Date Inactivated Comments 09/24/2023 3:26 PM 09/25/2023 5:49 PM Question Answer Comments How was code status determined? Patient * Full Code Date Activated Date Inactivated Comments 09/23/2023 5:59 AM 09/23/2023 9:48 AM Question Answer Comments How was code status determined? Previous [facility] Care Teams Chemical Process Project Engineer Relationship Specialty Start Date End Date [facility]- [address] [place] [id number] PCP - Primary Care Clinic 09/18/22 [place] [address] [place] [address] PCP - General 05/20/23
--- OUTSIDE RECORDS SUMMARY | 2024-10-12 17:09 | XMS_ITS | Clinical Summary ---
Author Organization [facility] Address [address] [place] [address] Care Team Providers Care Music Journalist Name Role Phone Hayes Mcelroy MD Primary Care Provider [phone] Allergies Active Allergy Reactions Criticality Noted Date [...] times daily. 100 Tablet 01/17/2022 2:51 PM PBX TECHNICIAN 2 Active tiZANidine (ZANAFLEX) 2 mg tabletIndications :Lumbar radiculopathy Take 1-2 Tablets (2-4 mg) by mouth every 6 hours if needed for Muscle Spasm. 60 Tablet 01/17/2022 2:51 PM PBX TECHNICIAN 2 Active Accu-Chek Guide test strips strip [...] on file Legal Sex Female 6:10 AM PBX TECHNICIAN Gender Identity Not on file Sexual Orientation Not on file Occupation Industry Job Start Date Job End Date Not on file Not on file Not on file Not on file Obstetrics History Last Filed Vital Signs Vital Sign Reading Time Taken Comments Blood Pressure 105/55 01/17/2022 9:09 AM PBX TECHNICIAN Pulse 71 01/17/2022 11:25 AM PBX TECHNICIAN Temperature 36.8 C (98.3 F) 01/17/2022 9:09 AM PBX TECHNICIAN Respiratory Rate 16 01/17/2022 11:25 AM PBX TECHNICIAN Oxygen Saturation 91% 01/17/2022 11:25 AM PBX TECHNICIAN Inhaled Oxygen Concentration - - Weight 72.6 kg (160 lb) 04/11/2022 9:58 AM PBX TECHNICIAN Height 175.3 cm (5' 9) 04/11/2022 9:58 AM PBX TECHNICIAN Body Mass Index 23.63 04/11/2022 9:58 AM PBX TECHNICIAN Plan of Treatment Health Maintenance Due Date [...] this topic Medical Devices Implanted Type Area Donor Relations Coordinator Device Identifier Shelf Expiration Date Model / Serial / Lot Bone Matrix 10cc Progenix Plusputty Dbm - [id number] Implanted:Qty : 1 on 12/01/2019 by Brock Sawyer MD at [facility] N/A: Lumbar Vertebrae Medtronic Spine/Ortho 06/15/2021 [id number]# / / [id number] Spacer Lmbr 9-71q06td 11deg Elevate Extra-Lordoti c Peek Titn - [id number] Implanted:Qty : 1 on 12/01/2019 by Brock Sawyer MD at [facility] N/A: Lumbar Vertebrae Medtronic Spine/Ortho 09/15/2027 1283741# / / [id number] Screw Lmbr Post 6.5x50mm Solera 5.5/6 Va Cocr - [id number] Implanted:Qty : 4 on 12/01/2019 by Brock Sawyer MD at [facility] N/A: Lumbar Vertebrae Medtronic Spine/Ortho [id number]# / / 5.5 X 500mm Cc Beltran Implanted:Qty : 1 on 12/01/2019 by Brock Sawyer MD at [facility] N/A: Lumbar Vertebrae Medtronic Spine/Ortho [id number] / / Bone 1-4mm 90cc Medtronic Chips Canclls Freeze Dried - [id number] Implanted:Qty : 1 on 12/01/2019 by Brock Sawyer MD at [facility] N/A: Lumbar Vertebrae Medtronic Spine/Ortho 04/24/2024 [id number]# / / [id number]: [id number] Bone Matrix Infuse Bmp - [id number] Implanted:Qty : 1 on 12/01/2019 by Brock Sawyer MD at [facility] N/A: Lumbar Vertebrae Medtronic Spine/Ortho 11/09/2021 [id number]# / / [id number] Bone 1-4mm 30cc Medtronic Chips Canclls Freeze Dried - [id number] Implanted:Qty : 1 on 12/01/2019 by Brock Sawyer MD at [facility] N/A: Lumbar Vertebrae Medtronic Spine/Ortho 05/31/2024 463351# / / [id number]: [id number] Spacer Lmbr 11-33p18rl 12deg Elevate Extra-Lordoti c Peek Tit - [id number] Implanted:Qty : 1 on 12/01/2019 by Brock Sawyer MD at [facility] N/A: Lumbar Vertebrae Medtronic Spine/Ortho 05/31/2027 7863981# / / [id number] Bone Matrix 10cc Progenix Putty Dbm - [id number] Implanted:Qty : 1 on 12/01/2019 by Brock Sawyer MD at [facility] N/A: Lumbar Vertebrae Medtronic Spine/Ortho 01/15/2021 398776# / / [id number] Set Screw Lmbr Ant 5.5mm Solera Break Off - [id number] Implanted:Qty : 10 on 12/01/2019 by Brock Sawyer MD at [facility] Explanted:Qty : 1 on 06/27/2020 by Brock Sawyer MD at [facility] N/A: Lumbar Vertebrae Medtronic Spine/Ortho [id number]# / / Vitoss 1.2cc [id number] - [id number] Implanted:Qty : 1 on 01/17/2021 by Brock Sawyer MD at [facility] N/A: Cervical Vertebrae [place] Spine 05/07/202121016703-3545 / / [id number] Anterior Cervical Cage 7mm X 12mm X 14mm [id number] - [id number] Implanted:Qty : 1 on 01/17/2021 by Brock Sawyer MD at [facility] N/A: Cervical Vertebrae Bri Spine 01/25/2023 [id number] / / [id number] [place] View Plates 22mm [id number] - [id number] Implanted:Qty : 1 on 01/17/2021 by Brock Sawyer MD at [facility] N/A: Cervical Vertebrae Bri Spine [id number] / / [place] Self-Starting Variable Screw 4.0x14mm [id number] - [id number] Implanted:Qty : 3 on 01/17/2021 by Brock Sawyer MD at [facility] N/A: Cervical Vertebrae [place] Spine [id number] / / [place] Self-Starting Variable Screw 4.5x14mm [id number] - [id number] Implanted:Qty : 1 on 01/17/2021 by Brock Sawyer MD at [facility] N/A: Cervical Vertebrae [id number] / / Vitoss Bimodal Implanted:Qty : 1 on 08/21/2021 by Brock Sawyer MD at [facility] N/A: Cervical Vertebrae Bri Spine 05/07/2022 8468-5543 / / [id number] Bone Matrix 5cc Stimulan Kit Rapid Cure - [id number] Implanted:Qty : 1 on 08/21/2021 by Brock Sawyer MD at [facility] N/A: Cervical Vertebrae Biocom[employer]ites Ltd 09/10/2023 620-005 / / [id number] 3.5 X 12mm [place] Oct Polyaxial Screw Implanted:Qty : 3 on 08/21/2021 by Brock Sawyer MD at [facility] N/A: Cervical Vertebrae [employer] Inc [id number] / / 34.0 X 12mm [place] Oct Polyaxial Screw Implanted:Qty : 1 on 08/21/2021 by Brock Sawyer MD at [facility] N/A: Cervical Vertebrae K2M [employer] Inc [id number] / / Set Screw Implanted:Qty : 4 on 08/21/2021 by Brock Sawyer MD at [facility] N/A: Cervical Vertebrae K2M [employer] Inc 3738-37879 / / Contoured Rods4.0 X 25mm Implanted:Qty : 2 on 08/21/2021 by Brock Sawyer MD at [facility] N/A: Cervical Vertebrae K2M [employer] Inc [id number] / / Bone Matrix Sm Infuse Bmp - [id number] Implanted:Qty : 1 on 01/16/2022 by Brock Sawyer MD at [facility] Lumbar Vertebrae Medtronic Spine/Ortho 02/10/2024 [id number] / / [id number] Bone Matrix 5cc Progenix Plus Putty Dbm - [id number] Implanted:Qty : 1 on 01/16/2022 by Brock Sawyer MD at [facility] Spine Medtronic Spine/Ortho 05/02/2023 [id number] / [id number] / Bone 1-4mm 15cc Medtronic Chips Canclls Freeze Dried - [id number] Implanted:Qty : 1 on 01/16/2022 by Brock Sawyer MD at [facility] Spine Medtronic Spine/Ortho 12/04/2025 [id number] / [id number] / [id number] Tas Implant 16mm Implanted:Qty : 1 on 01/16/2022 by Brock Sawyer MD at [facility] Spine Medtronic Spine/Ortho 07/05/2025 [id number] / / [id number] Tas Bone Screw Implanted:Qty : 1 on 01/16/2022 by Brock Sawyer MD at [facility] Spine Medtronic Spine/Ortho 1270-5719 / / Divergence Screws Implanted:Qty : 4 on 01/16/2022 by Brock Sawyer MD at [facility] Spine Medtronic Spine/Ortho [id number] / / Divergence 18mm Plate Implanted:Qty : 1 on 01/16/2022 by Brock Sawyer MD at [facility] Spine Medtronic Spine/Ortho [id number] / / Explanted Type Area Donor Relations Coordinator Device Identifier Shelf Expiration Date Model / Serial / Lot CitySourced Precision Spinal Cord Stimulator Explanted:Qty: 1 on 12/01/2019 by Brock Sawyer MD at [facility] N/A: Lumbar Vertebrae [employer] / [id number] / Description:Battery and lead s explanted IPG model SC-1110 Bone Growth Stimulator Explanted:Qty: 1 on 12/01/2019 by Brock Sawyer MD at [facility] N/A: Lumbar Vertebrae Description:SpF-PLUS CLAUDIA [id number] Battery and leads explanted 100mm 5.5 Ti Beltran Explanted:Qty: 2 on 12/01/2019 by Brock Sawyer MD at [facility] N/A: Lumbar Vertebrae Set Screws Solera Explanted:Qty: 6 on 12/01/2019 by Brock Sawyer MD at [facility] N/A: Lumbar Vertebrae Medtronic Spine/Ortho Screw Sm Joint 4.5x20mm Axsos Raymundo Titwi - [id number] Explanted:Qty: 4 on 12/01/2019 by Brock Sawyer MD at [facility] N/A: Lumbar Vertebrae [employer] [id number]# / / 8.5 X 70 Mm Ballast Screw Explanted:Qty: 1 on 06/27/2020 by Brock Sawyer MD at [facility] Right: Lumbar Vertebrae Medtronic Procedures Procedure Name [...] 16 Negative Negative 11/27/2022 11:43 AM CDT [facility] [employer] [facility] TYPE 18 Negative Negative 11/27/2022 11:43 AM CDT [facility] OTHER HIGH RISK TYPES Positive(A) Negative 11/27/2022 11:43 AM CDT [facility] TRAL LABORATORY Other (Cervical) 11/21/2022 9:04 AM CDT 11/25/2022 11:50 AM CDT [facility] - 11/27/2022 11:43 AM CDT Specimen is positive for the DNA of any one of, or combination of, the following high risk HPV types: 31, 33, 35, 39, 45, 51, 52, 56, 58, 59, 66, 68. HPV types 16 and 18 DNA were undetectable or below the pre-set threshold. Methodology: Velia Amador 4800 HPV Test may [facility] Final Resu lt [facility]CENTRAL LABORATORY [address] [place] [address], [place] * XR FFDM MAMMO SCREENING BILATERAL [...] of Computer-Aided Detection. COMPARISON FILMS: Yes 10/07/08 [facility] FINDINGS: Mammographically, the breast tissue is [...] of Computer-Aided Detection. COMPARISON FILMS: Yes 10/07/08 [facility] FINDINGS: Mammographically, the breast tissue is [...] Most Recently Relevant to Health Maintenance Insurance [employer] PB ONLY MEDICARE PART B HB ONLY MEDICARE PART A HB ONLY [place] [facility] Advance Directives * Full Code (Latest [...] Code Status Discussion: Not Discussed Care Teams Music Journalist Relationship Specialty Start Date End Date Hayes Mcelroy MD PCP - General Family Practice 01/10/17
[2024-10-12 17:17] VITALS: BP 109/77; PULSE 119; RESP 20; TEMP 36.1; O2SAT 91; BMI 17.3
--- NOTE | 2024-10-12 17:17 | ED.GENADULT ---
HPI - General Adult General Stated complaint: stomach pain, vomiting, not able to eat Time Seen by Provider: 10/12/24 17:17 Related Data Home Medications ?Medication ?Instructions ?Recorded ?Confirmed lamotrigine 200 mg tablet mg PO BID 08/17/21 08/09/24 sennosides 8.6 mg tablet 8.6 mg PO QDAY PRN 03/13/23 08/09/24 tizanidine 4 mg tablet 2 - 4 mg PO .QD PRN 03/13/23 08/09/24 topiramate 25 mg tablet 25 mg PO BID 03/13/23 08/09/24 bupropion HCl 300 mg 24 hr tablet, 150 mg PO DAILY 09/16/23 08/09/24 extended release duloxetine 60 mg capsule,delayed 120 mg PO QDAY 09/16/23 08/09/24 release (Cymbalta) buprenorphine 8 mg-naloxone 2 mg 0.5 film sublingual QID chronic 05/18/24 08/09/24 sublingual film pain trazodone 100 mg tablet 200 mg PO QHS 06/02/24 08/09/24 Previous Rx's ?Medication ?Instructions ?Recorded blood-glucose meter #1 ea 05/19/23 blood sugar diagnostic (Accu-Chek #100 ea 05/21/23 Kaylee Plus test strips) omeprazole 40 mg capsule,delayed 40 mg PO DAILY #90 caps 12/30/23 release lancets (Accu-Chek Softclix #300 ea 04/12/24 Lancets) semaglutide 2 mg/dose (8 mg/3 mL) 2 mg (0.75 mL) subcut QWEEK #3 mL 06/28/24 subcutaneous pen injector (Ozempic) metformin 1,000 mg tablet 1,000 mg PO BID #180 tabs 07/12/24 simvastatin 20 mg tablet 20 mg PO QPM #90 tabs 09/21/24 dicyclomine 20 mg tablet See Rx Instructions .Route 10/05/24 .COMPLEX #270 tabs pramipexole 0.5 mg tablet 0.5 mg PO DAILY #90 tabs 10/07/24 Allergies Allergy/AdvReac Type Severity Reaction Status Date / Time hydroxyzine Allergy Severe involuntary Verified 08/09/24 12:51 muscle movement venlafaxine Allergy Mild Rash, Verified 08/09/24 12:51 restless legs prochlorperazine (From Allergy Verified 08/09/24 12:51 Compazine) diphenhydramine AdvReac Mild Effects RLS Verified 08/09/24 12:51 PFSH PFSH Medical History Compartment syndrome of left lower extremity ?T79.A22A - Traumatic compartment syndrome of left lower extremity, initial encounter (ICD-10) Palpitations ?R00.2 - Palpitations (ICD-10) Syncope ?R55 - Syncope and collapse (ICD-10) 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) ?M50.20 - Other cervical disc displacement, unspecified cervical region (ICD-10) Surgical History Status post open reduction and internal fixation (ORIF) of fracture ?Z98.890 - Other specified postprocedural states (ICD-10) ?Z87.81 - Personal history of (healed) traumatic fracture (ICD-10) S/P laparoscopic procedure ?Z98.890 - Other specified postprocedural states (ICD-10) S/P insertion of spinal cord stimulator ?Z96.89 - Presence of other specified functional implants (ICD-10) S/P lumbar fusion ?Z98.1 - Arthrodesis status (ICD-10) S/P cervical spinal fusion ?Z98.1 - Arthrodesis status (ICD-10) S/P bunionectomy ?Z98.890 - Other specified postprocedural states (ICD-10) History of tonsillectomy and adenoidectomy (01/17/10) ?Z90.89 - Acquired absence of other organs (ICD-10) History of laparoscopic appendectomy (05/14/12) ?Z90.49 - Acquired absence of other specified parts of digestive tract (ICD-10) History of cholecystectomy (01/17/10) ?Z90.49 - Acquired absence of other specified parts of digestive tract (ICD-10) History of appendectomy (06/30/12) ?Z90.49 - Acquired absence of other specified parts of digestive tract (ICD-10) Family History Mother Osteoporosis Social History Narrative: , currently engaged to be . On disability. 3 children. No alcohol. Non-smoker. No illicit drug use. Smoking Status: Current every day smoker How often do you have a drink containing alcohol: never AUDIT-C Alcohol total score: 0 Non-prescribed substance use: denies use Discharge Plan Discharge Prescriptions: No Action duloxetine [Cymbalta] 60 mg capsule,delayed release(DR/EC) 120 mg PO QDAY sennosides 8.6 mg tablet 8.6 mg PO QDAY PRN Rx Instructions: 1 in the morning 1-2 at night Ozempic 2 mg/dose (8 mg/3 mL) pen injector 2 mg subcut QWEEK Qty: 3 5RF lamotrigine 200 mg tablet PO BID tizanidine 4 mg tablet 2 - 4 mg PO .QD PRN topiramate 25 mg tablet 25 mg PO BID bupropion HCl 300 mg tablet extended release 24 hr 150 mg PO DAILY buprenorphine-naloxone 8-2 mg film 0.5 film sublingual QID trazodone 100 mg tablet 200 mg PO QHS (DME) blood-glucose meter Misc See Rx Instructions .Route Qty: 1 0RF Rx Instructions: As directed (DME) Accu-Chek Kaylee Plus test strp Strip See Rx Instructions .Route Qty: 100 3RF Rx Instructions: tid omeprazole 40 mg capsule,delayed release(DR/EC) 40 mg PO DAILY Qty: 90 3RF (DME) lancets [Accu-Chek Softclix Lancets] Misc See Rx Instructions .Route Qty: 300 0RF Rx Instructions: tid metformin 1,000 mg tablet 1,000 mg PO BID Qty: 180 1RF simvastatin 20 mg tablet 20 mg PO QPM Qty: 90 0RF dicyclomine 20 mg tablet See Rx Instructions .ROUTE .COMPLEX Qty: 270 1RF Dose Instruction: TAKE ONE TABLET BY MOUTH THREE TIMES DAILY Rx Instructions: TAKE ONE TABLET BY MOUTH THREE TIMES DAILY pramipexole 0.5 mg tablet 0.5 mg PO DAILY Qty: 90 1RF Follow Up/Referrals: Hayes Mcelroy MD [Primary Care Provider, Family Practice]
--- NOTE | 2024-10-12 17:25 | ED.GENADULT ---
HPI - General Adult General Chief complaint: Abdominal Pain Stated complaint: stomach pain, vomiting, not able to eat Time Seen by Provider: 10/12/24 17:17 History of Present Illness HPI narrative: Pt reports visiting on Friday for same symptoms ( stomach pain and vomiting, bloating). States symptoms are severe and not improved. Pt states she did follow dc recommendations after last visit with no relief. Rates pain currently 9/10. Pt states she has not taken her suboxone today. 63-year-old woman returning to the emergency department after being seen 4 days ago diagnosis of suspected constipation contributing to intense abdominal pain. Possibly contributed to by Suboxone. Was recommended to take regular dosings of MiraLax. Labs or generally reassuring. Imaging noted moderate colonic stool burden. She did receive an enema without results here in the emergency department and took another enema at home. The following morning took at least 4 dosings of MiraLax and without result. Has continued to have intermittent intense cramping abdominal pain. Has not had a fever. She has been vomiting and vomited shortly before arrival. Belching a lot. She did pass gas about an hour ago. Primary pain seems to be mid lower abdomen. It does though have escalations of bilateral pain. No fever. Has not taken Suboxone yet today. Later clarifies that last dose was yesterday morning; sounds like approximately 30 hours ago. She does admit that she was anticipating maybe coming here and potentially needing what I understand to be opiate pain medication. Related Data Home Medications ?Medication ?Instructions ?Recorded ?Confirmed lamotrigine 200 mg tablet mg PO BID 08/17/21 08/09/24 sennosides 8.6 mg tablet 8.6 mg PO QDAY PRN 03/13/23 08/09/24 tizanidine 4 mg tablet 2 - 4 mg PO .QD PRN 03/13/23 08/09/24 topiramate 25 mg tablet 25 mg PO BID 03/13/23 08/09/24 bupropion HCl 300 mg 24 hr tablet, 150 mg PO DAILY 09/16/23 08/09/24 extended release duloxetine 60 mg capsule,delayed 120 mg PO QDAY 09/16/23 08/09/24 release (Cymbalta) buprenorphine 8 mg-naloxone 2 mg 0.5 film sublingual QID chronic 04/08/25 06/30/25 sublingual film pain trazodone 100 mg tablet 200 mg PO QHS 06/02/24 08/09/24 Previous Rx's ?Medication ?Instructions ?Recorded blood-glucose meter #1 ea 05/19/23 blood sugar diagnostic (Accu-Chek #100 ea 05/21/23 Kaylee Plus test strips) omeprazole 40 mg capsule,delayed 40 mg PO DAILY #90 caps 12/30/23 release lancets (Accu-Chek Softclix #300 ea 04/12/24 Lancets) semaglutide 2 mg/dose (8 mg/3 mL) 2 mg (0.75 mL) subcut QWEEK #3 mL 06/28/24 subcutaneous pen injector (Ozempic) metformin 1,000 mg tablet 1,000 mg PO BID #180 tabs 07/12/24 simvastatin 20 mg tablet 20 mg PO QPM #90 tabs 09/21/24 dicyclomine 20 mg tablet See Rx Instructions .Route 10/05/24 .COMPLEX #270 tabs pramipexole 0.5 mg tablet 0.5 mg PO DAILY #90 tabs 10/07/24 Allergies Allergy/AdvReac Type Severity Reaction Status Date / Time hydroxyzine Allergy Severe involuntary Verified 08/09/24 12:51 muscle movement venlafaxine Allergy Mild Rash, Verified 08/09/24 12:51 restless legs prochlorperazine (From Allergy Verified 08/09/24 12:51 Compazine) diphenhydramine AdvReac Mild Effects RLS Verified 08/09/24 12:51 Review of Systems Status of ROS: Reports: 6 or more systems reviewed and unremarkable except as noted in History and below [facility] Medical History Compartment syndrome of left lower extremity ?T79.A22A - Traumatic compartment syndrome of left lower extremity, initial encounter (ICD-10) Palpitations ?R00.2 - Palpitations (ICD-10) Syncope ?R55 - Syncope and collapse (ICD-10) 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) ?M50.20 - Other cervical disc displacement, unspecified cervical region (ICD-10) Surgical History Status post open reduction and internal fixation (ORIF) of fracture ?Z98.890 - Other specified postprocedural states (ICD-10) ?Z87.81 - Personal history of (healed) traumatic fracture (ICD-10) S/P laparoscopic procedure ?Z98.890 - Other specified postprocedural states (ICD-10) S/P insertion of spinal cord stimulator ?Z96.89 - Presence of other specified functional implants (ICD-10) S/P lumbar fusion ?Z98.1 - Arthrodesis status (ICD-10) S/P cervical spinal fusion ?Z98.1 - Arthrodesis status (ICD-10) S/P bunionectomy ?Z98.890 - Other specified postprocedural states (ICD-10) History of tonsillectomy and adenoidectomy (01/17/10) ?Z90.89 - Acquired absence of other organs (ICD-10) History of laparoscopic appendectomy (05/14/12) ?Z90.49 - Acquired absence of other specified parts of digestive tract (ICD-10) History of cholecystectomy (01/17/10) ?Z90.49 - Acquired absence of other specified parts of digestive tract (ICD-10) History of appendectomy (06/30/12) ?Z90.49 - Acquired absence of other specified parts of digestive tract (ICD-10) Family History Mother Osteoporosis Social History Narrative: , currently engaged to be . On disability. 3 children. No alcohol. Non-smoker. No illicit drug use. Smoking Status: Current every day smoker How often do you have a drink containing alcohol: never AUDIT-C Alcohol total score: 0 Non-prescribed substance use: denies use Exam Narrative: Exam Narrative: Calm. Appears uncomfortable. Sleepy. Maybe a little confused at times. Subtly labored in her breathing. Does belch at 1 point. Heart is in elevated to tachycardic rate. Regular rhythm. Abdomen with higher pitched bowel sounds present. Diffusely moderately distended. Soft. Scar in right upper abdomen. Moderate tenderness to palpation primarily in the left mid lower abdomen. Tympanitic across the abdomen. Well-perfused peripherally. No edema. Skin otherwise warm and dry with scars consistent with spinal surgeries. Const: Vital Signs, click to edit/add: Vital Signs - 24 hr 10/12/24 17:17 10/12/24 19:10 10/12/24 22:25 Temperature 97.0 F L 98.5 F 100.4 F H Pulse Rate [Pulse Oximeter] 119 H 103 H 120 H Respiratory Rate 20 18 18 Blood Pressure [Ri ght Upper Arm] 109/77 131/84 109/78 Pulse Oximetry 91 95 96 Oxygen Delivery Me thod Room Air Room Air Room Air Documenting provider has reviewed patient's vital signs: yes Course Vital Signs Vital signs: Initial Vital Signs Temperature 97.0 F L 10/12/24 17:17 Temperature Source Temporal Artery Scan 10/12/24 17:17 Pulse Rate 119 H 10/12/24 17:17 Respiratory Rate 20 10/12/24 17:17 Blood Pressure 109/77 10/12/24 17:17 Blood Pressure Mean 87 10/12/24 17:17 Blood Pressure Position Sitting 10/12/24 17:17 Pulse Oximetry 91 10/12/24 17:17 Oxygen Delivery Method Room Air 10/12/24 17:17 Vital Signs Temperature 97.0 F L 10/12/24 17:17 Pulse Rate 119 H 10/12/24 17:17 Respiratory Rate 20 10/12/24 17:17 Blood Pressure 109/77 10/12/24 17:17 Pulse Oximetry 91 10/12/24 17:17 Oxygen Delivery Method Room Air 10/12/24 17:17 Temperature 100.4 F H 10/12/24 22:25 Pulse Rate 120 H 10/12/24 22:25 Respiratory Rate 18 10/12/24 22:25 Blood Pressure 109/78 10/12/24 22:25 Pulse Oximetry 96 10/12/24 22:25 Oxygen Delivery Method Room Air 10/12/24 22:25 Medications Administered Medications: Generic Name Dose Route Start Last Admin Trade Name Freq PRN Reason Stop Dose Admin Lactated Ringer's 1,000 mls @ 1,000 mls/hr 10/12/24 22:32 10/12/24 22:35 Lactated Ringers 1000 Ml IV 10/12/24 23:31 1,000 mls/hr .Q1H ONE Administration Discontinued Medications Generic Name Dose Route Start Last Admin Trade Name Freq PRN Reason Stop Dose Admin Diazepam 5 mg 10/12/24 17:39 10/12/24 17:56 Diazepam 5 Mg/Ml Inj IV 10/12/24 17:40 5 mg ONCE ONE Administration Diazepam 2.5 mg 10/12/24 21:34 10/12/24 21:41 Diazepam 5 Mg/Ml Inj IV 10/12/24 21:35 2.5 mg ONCE ONE Administration Hydromorphone HCl 1 mg 10/12/24 19:58 10/12/24 20:16 Hydromorphone 0.5 Mg/0.5 Ml Inj IVP 10/12/24 19:59 1 mg ONCE ONE Administration Sodium Chloride 1,000 mls @ 1,000 mls/hr 10/12/24 17:39 10/12/24 19:20 0.9 % Sodium Chloride 1000 Ml IV 10/12/24 18:38 Infused .Q1H ONE Infusion Ertapenem 1 gm/ Sodium 100 mls @ 200 mls/hr 10/12/24 22:37 10/12/24 23:04 Chloride IVPB 10/12/24 22:38 200 mls/hr ONCE ONE Administration Ketorolac Tromethamine 30 mg 10/12/24 17:39 10/12/24 17:56 Ketorolac 30 Mg/Ml Inj IVP 10/12/24 17:40 30 mg ONCE ONE Administration Ondansetron HCl 4 mg 10/12/24 17:39 10/12/24 17:57 Ondansetron 2 Mg/Ml Inj IVP 10/12/24 17:40 4 mg ONCE ONE Administration Medical Decision Making MDM Narrative Medical decision making narrative: Passing flatus might be reassuring but might be further along the way to bowel obstruction. Presumed per history worsening constipation would certainly could be contributing to all this pain. Tachycardic on initial vitals might be pain response or indicate more serious disease. Abdominal exam with pain but not peritoneal. Monitor oxygen levels as initial O2 sat 91% on room air. This might be related to some splinting, atelectasis, secondary to abdominal pain or represent other disease. Is resting comfortably, appears relaxed, after Valium, ketorolac and Zofran and normal saline but when questioned does note that pain is persisting. Oximetry has improved now at 95%. Labs are reassuring and CRP is mildly elevated. CT imaging independently reviewed by me noncontrast abdomen pelvis does show gastric distension and a good deal of small bowel dilatation. Diffuse moderate stool. On re-examination she does have increased pain in the left abdomen as noted. More tense. With further complaints of pain I did order for some Dilaudid. Probably 30-adeline hours since last Suboxone Also placed NG tube. Initially 1 L of gastric fluid is obtained quite quickly. She does appear more comfortable. Radiology over-read below INDICATION: CONSTIPATION, INCREASING ABD PAIN. (Sic) No additional history is given. COMPARISON: 10/08/2024 TECHNIQUE: CT of the abdomen and pelvis without intravenous contrast. Please note that all CT scans at this facility use dose modulation, iterative reconstruction, and/or weight-based dosing when appropriate to reduce radiation dose to as low as reasonably achievable. FINDINGS: The study is performed without intravenous contrast. This limits the sensitivity of the exam for the detection bowel pathology, focal lesions of the abdominopelvic viscera and vascular pathology including significant vascular stenosis, occlusion and dissection. ABDOMEN Liver: Normal contour and attenuation. No significant focal lesion. No intrahepatic biliary ductal dilatation. Gallbladder: Absent. Unchanged increased caliber of the extrahepatic biliary tree consistent with reservoir effect status post cholecystectomy. Pancreas: Normal contour and attenuation. No peripancreatic inflammatory changes. No significant focal lesion. Normal main duct caliber. Spleen: Not enlarged. No significant focal lesion. Adrenal Glands: Symmetrical adrenal glands. No significant focal lesion. Kidneys: Normal bilateral renal attenuation. No significant focal lesion. No nephrolith. No dilatation of the intrarenal collecting systems. No ureteral stone. Nondilated ureters. Gastrointestinal tract: Diffuse severe small bowel dilatation and associated moderate gastric distention represent a high-grade distal mechanical small bowel obstruction. The terminal ileum appears to be collapsed (series 2; image 91). A transition point is not clearly identified. No intramural hematoma, pneumatosis intestinalis, or portal venous gas to indicate superimposed ischemia at this time. Note is otherwise made of nonspecific moderate to severe colonic fecal loading. Unseen appendix. Vascular: Normal outer wall to outer wall abdominal aortic caliber. Patency and luminal caliber of the abdominopelvic arterial and venous vasculature cannot be assessed on this noncontrast study. Peritoneal Cavity/Retroperitoneum: No ascites. No adenopathy. PELVIS No bladder lesion is identified. No significant incidental findings related to the uterus or uterine adnexa. No significant ascites. No adenopathy. SKELETON AND BODY WALL No acute or significant incidental/interval findings. Redemonstration of extensive postsurgical changes involving the lumbosacral spine. LOWER THORAX New right middle lobe and medial segment right lower lobe peribronchial ground-glass nodular opacities and bronchial wall thickening consistent with nonspecific peripheral small airways disease. Aspiration pneumonitis is included in the differential diagnosis in this patient with findings consistent with a high-grade mechanical small bowel obstruction and associated gastric distention. IMPRESSION: 1. Diffuse severe small bowel dilatation and associated moderate gastric distention represent a high-grade distal mechanical small bowel obstruction. The terminal ileum appears to be collapsed (series 2; image 91). A transition point is not clearly identified. No intramural hematoma, pneumatosis intestinalis, or portal venous gas to indicate superimposed ischemia at this time. Surgical consultation and close clinical follow-up are recommended. 2. Note is otherwise made of new right middle lobe and medial segment right lower lobe peribronchial ground-glass nodular opacities and bronchial wall thickening consistent with aspiration pneumonitis. Differential diagnostic considerations generally include nonspecific distal small airways disease. Gastric decompression is suggested. The study is performed without intravenous contrast. This limits the sensitivity of the exam for the detection bowel pathology, including bowel ischemia, focal lesions of the abdominopelvic viscera and vascular pathology including significant vascular stenosis, occlusion and dissection. Please note that all CT scans at this facility use dose modulation, iterative reconstruction, and/or weight-based dosing when appropriate to reduce radiation dose to as low as reasonably achievable. Dictated by Dar Ayala MD @ 10/12/2024 7:51:33 PM Indication: Abdominal distention in the setting of small-bowel obstruction Technique: Single view of the abdomen Comparison: CT abdomen pelvis performed same day Findings/Impression: Enteric tube terminates in the body of the stomach, side hole distal to the GE junction. Dilated loops of bowel are noted with an overall generalized low-level of bowel gas which limits evaluation. Grossly, favor no significant interval change from prior CT. Dictated by Mode Adler MD @ 10/12/2024 9:52:44 PM I did discuss this case, CT findings with General surgery. Recommendations would be for contrast/Gastrografin enema. Uncertain benefit of disimpaction noting extensive stool that would still need to be removed. Concerns also noted of ultimate need for challenging pain management. Believe that patient might be better served elsewhere. I was able to confirm that we would be able to do Gastrografin enema here tomorrow morning. Also sounds like would be able to manage pain as well given conversation with our hospitalist. However with expressed concerns by general surgery and hospitalist with concern of more severe disease, did call to find admission in tertiary facility. Discussed case with on-call for [facility] who is accepting with a brief delay. On reassessment has remained tachycardic throughout her stay. Stable blood pressures. Was noted however to be diaphoretic and with a temperature of a 100.4?. Had collected 1 set of blood cultures initially. I requested a 2nd set and ordered for ertapenem. Also L of lactated Ringer's. Recheck temperature at 98.6?. Has been pulling at her NG. There is a little blood at the nares. Odor of potentially infected urine. Will be collect urinalysis. Will be handing off at change of shift. Medical Records Medical records reviewed: Yes I reviewed the patient's medical records Lab Data Lab results reviewed: Yes I reviewed the patient's lab results Labs: Lab Results 10/12/24 10/12/24 Range/Units 17:55 19:58 WBC 5.53 (4.50-11.00) K/uL RBC 4.86 (4.00-5.20) m/uL Hgb 13.5 (12.0-16.0) gm/dL Hct 40.4 (33.0-51.0) % MCV 83 (80-100) fL MCH 28 (26-34) pg MCHC 33 (32-36) gm/dL RDW Coeff of Monserrat 14.5 (11.5-15.5) % Plt Count 256 (140-440) K/uL Neut % (Auto) 69.7 (42.0-72.0) % Lymph % (Auto) 19.2 L (20-44) % [place] % (Auto) 9.6 (0.0-11.0) % Eos % (Auto) 1.3 (0.0-7.0) % Baso % (Auto) 0.2 (0.0-3.0) % Neut # (Auto) 3.86 (1.7-7.0) K/uL Lymph # (Auto) 1.10 (0.90-2.90) K/uL [place] # (Auto) 0.50 (0.00-0.90) K/UL Eos # (Auto) 0.07 (0.00-0.50) K/uL Baso # (Auto) 0.01 (0.00-0.30) K/uL Abs Immat Gran (auto) 0.00 (0.00-0.30) K/uL Imm/Tot Granulo (auto) 0.0 % Sodium 135 (135-149) mmol/L Potassium 3.8 (3.6-5.1) mmol/L Chloride 96 (96-114) mmol/L Carbon Dioxide 25 (20-32) mmol/L Anion Gap 14 (7-15) mEq/L BUN 46 H (7-30) mg/dL Creatinine 0.9 (0.5-1.5) mg/dL Estimated Creat Clear 49.50 Estimated GFR 73 ml/min Glucose 125 H (60-115) mg/dL Lactate 1.2 (0.5-1.9) mmol/L Calcium 9.4 (8.4-10.6) mg/dL Total Bilirubin 0.6 (0.1-1.5) mg/dL Direct Bilirubin 0.4 (0.0-0.5) mg/dL AST 18 (12-35) U/L ALT 10 (4-35) U/L Alkaline Phosphatase 63 (40-150) U/L C-Reactive Protein 3.8 H (0.5-1.0) mg/dL Total Protein 7.1 (6.0-8.3) g/dL Albumin 4.5 (3.3-5.0) g/dL Lab Acknowledgement Test Added ECG Data Attestation: I personally reviewed and interpreted this ECG as follows: (Sinus tachycardia. Larger P-wave. Rate of 111) Discharge Plan Discharge Clinical Impression: Small bowel obstruction, Obstipation Patient Disposition: Xfer Acute Care Hospital Discharge Location: [facility] Condition: Stable
--- NOTE | 2024-10-12 17:39 | CRLHL7_ITS ---
For Patients: As a result of the 21st Century Cures Act, medical imaging exams and procedure reports are released immediately into your electronic medical record. You may view this report before your referring provider. If you have questions, please contact your health care provider. INDICATION: CONSTIPATION, INCREASING ABD PAIN. (Sic) No additional history is given. COMPARISON: 10/08/2024 TECHNIQUE: CT of the abdomen and pelvis without intravenous contrast. Please note that all CT scans at this facility use dose modulation, iterative reconstruction, and/or weight-based dosing when appropriate to reduce radiation dose to as low as reasonably achievable. FINDINGS: The study is performed without intravenous contrast. This limits the sensitivity of the exam for the detection bowel pathology, focal lesions of the abdominopelvic viscera and vascular pathology including significant vascular stenosis, occlusion and dissection. ABDOMEN Liver: Normal contour and attenuation. No significant focal lesion. No intrahepatic biliary ductal dilatation. Gallbladder: Absent. Unchanged increased caliber of the extrahepatic biliary tree consistent with reservoir effect status post cholecystectomy. Pancreas: Normal contour and attenuation. No peripancreatic inflammatory changes. No significant focal lesion. Normal main duct caliber. Spleen: Not enlarged. No significant focal lesion. Adrenal Glands: Symmetrical adrenal glands. No significant focal lesion. Kidneys: Normal bilateral renal attenuation. No significant focal lesion. No nephrolith. No dilatation of the intrarenal collecting systems. No ureteral stone. Nondilated ureters. Gastrointestinal tract: Diffuse severe small bowel dilatation and associated moderate gastric distention represent a high-grade distal mechanical small bowel obstruction. The terminal ileum appears to be collapsed (series 2; image 91). A transition point is not clearly identified. No intramural hematoma, pneumatosis intestinalis, or portal venous gas to indicate superimposed ischemia at this time. Note is otherwise made of nonspecific moderate to severe colonic fecal loading. Unseen appendix. Vascular: Normal outer wall to outer wall abdominal aortic caliber. Patency and luminal caliber of the abdominopelvic arterial and venous vasculature cannot be assessed on this noncontrast study. Peritoneal Cavity/Retroperitoneum: No ascites. No adenopathy. PELVIS No bladder lesion is identified. No significant incidental findings related to the uterus or uterine adnexa. No significant ascites. No adenopathy. SKELETON AND BODY WALL No acute or significant incidental/interval findings. Redemonstration of extensive postsurgical changes involving the lumbosacral spine. LOWER THORAX New right middle lobe and medial segment right lower lobe peribronchial ground-glass nodular opacities and bronchial wall thickening consistent with nonspecific peripheral small airways disease. Aspiration pneumonitis is included in the differential diagnosis in this patient with findings consistent with a high-grade mechanical small bowel obstruction and associated gastric distention. IMPRESSION: 1. Diffuse severe small bowel dilatation and associated moderate gastric distention represent a high-grade distal mechanical small bowel obstruction. The terminal ileum appears to be collapsed (series 2; image 91). A transition point is not clearly identified. No intramural hematoma, pneumatosis intestinalis, or portal venous gas to indicate superimposed ischemia at this time. Surgical consultation and close clinical follow-up are recommended. 2. Note is otherwise made of new right middle lobe and medial segment right lower lobe peribronchial ground-glass nodular opacities and bronchial wall thickening consistent with aspiration pneumonitis. Differential diagnostic considerations generally include nonspecific distal small airways disease. Gastric decompression is suggested. The study is performed without intravenous contrast. This limits the sensitivity of the exam for the detection bowel pathology, including bowel ischemia, focal lesions of the abdominopelvic viscera and vascular pathology including significant vascular stenosis, occlusion and dissection. Please note that all CT scans at this facility use dose modulation, iterative reconstruction, and/or weight-based dosing when appropriate to reduce radiation dose to as low as reasonably achievable. Dictated by Dar Ayala MD @ 10/12/2024 7:51:33 PM (Electronically Signed)
[2024-10-12] MEDS: diazePAM 5 MG/ML inj IV (17:56)
[2024-10-12] MEDS: ONDANSETRON 2 MG/ML inj 4 MG IVP (17:57)
[2024-10-12 18:06] LABS: Lactate* 1.2 mmol/L (0.5-1.9)
[2024-10-12 18:07] LABS: Hematocrit 40.4 % (33.0-51.0); Hemoglobin* 13.5 gm/dL (12.0-16.0); Immature Granulocytes Abs Auto 0.00 K/uL (0.00-0.30); Immature Granulocytes Pct Auto 0.0 %; Mean Corpuscular HGB Conc 33 gm/dL (32-36); Mean Corpuscular Hemoglobin 28 pg (26-34); Mean Corpuscular Volume 83 fL (80-100); RDW Coefficient of Variation % 14.5 % (11.5-15.5); Red Blood Count 4.86 m/uL (4.00-5.20); White Blood Count* 5.53 K/uL (4.50-11.00)
[2024-10-12 18:09] LABS: Lymphocytes Absolute Auto 1.10 K/uL (0.90-2.90); Slide Review Reflex No
[2024-10-12 18:20] LABS: Chloride* 96 mmol/L (96-114)
[2024-10-12 18:21] LABS: Potassium* 3.8 mmol/L (3.6-5.1); Sodium* 135 mmol/L (135-149)
[2024-10-12 18:24] LABS: Anion Gap 14 mEq/L (7-15); Blood Urea Nitrogen* 46 mg/dL (7-30); Calcium* 9.4 mg/dL (8.4-10.6); Carbon Dioxide* 25 mmol/L (20-32); Creatinine* 0.9 mg/dL (0.5-1.5); Est. Creatinine Clearance* 49.50; Estimated Glomerular Filt Rate 73 ml/min; Glucose* 125 mg/dL (60-115)
[2024-10-12 19:10] VITALS: BP 131/84; PULSE 103; RESP 18; TEMP 36.9; O2SAT 95
--- NOTE | 2024-10-12 20:07 | CRLHL7_ITS ---
For Patients: As a result of the Century Cures Act, medical imaging exams and procedure reports are released immediately into your electronic medical record. You may view this report before your referring provider. If you have questions, please contact your health care provider. Indication: Abdominal distention in the setting of small-bowel obstruction Technique: Single view of the abdomen Comparison: CT abdomen pelvis performed same day Findings/Impression: Enteric tube terminates in the body of the stomach, side hole distal to the GE junction. Dilated loops of bowel are noted with an overall generalized low-level of bowel gas which limits evaluation. Grossly, favor no significant interval change from prior CT. Dictated by Mode Adler MD @ 10/12/2024 9:52:44 PM (Electronically Signed)
[2024-10-12 20:20] LABS: Albumin* 4.5 g/dL (3.3-5.0)
[2024-10-12 20:23] LABS: Alanine Aminotransferase* 10 U/L (4-35); Alkaline Phosphatase* 63 U/L (40-150); Aspartate Amino Transferase* 18 U/L (12-35); Bilirubin Direct* 0.4 mg/dL (0.0-0.5); Bilirubin Total* 0.6 mg/dL (0.1-1.5); Total Protein* 7.1 g/dL (6.0-8.3)
[2024-10-12] MEDS: diazePAM 5 MG/ML inj 2.5 MG IV (21:41)
[2024-10-12 22:25] VITALS: BP 109/78; PULSE 120; RESP 18; TEMP 38; O2SAT 96
[2024-10-12] MEDS: LACTATED RINGERS 1000 ML 1,000 ML IV (22:35)
[2024-10-12] MEDS: ERTAPENEM 1 GM in 0.9 % SODIUM CHLORIDE Mini-bag 100 ML IVPB (23:04)
[2024-10-13 01:17] VITALS: BP 113/67; PULSE 101; RESP 16; TEMP 37; O2SAT 92
== END 2024-10-13 01:32 | disposition short-term general hospital (02) ==
PROVIDERS: Emergency Provider Family Medicine; PCP Family Medicine
DX: K56.609 Unspecified intestinal obstruction, unspecified as to partial versus complete obstruction (principal); K59.00 Constipation, unspecified
CPT/HCPCS: 36415; 74018; 74176; 80048; 80076; 81001; 83605; 85025; 86140; 87040; 96365; 96375; 99284; 99285; J1171; J1335; J1885; J2405; J3360; J7030; J7120

== ENCOUNTER 2024-10-13 01:10 | Outpatient (CLI) | payer MEDICARE, OTHER, SELFPAY | END 2024-10-13 01:11 | disposition home or self-care (01) | LOC: AMB 10-14 14:44 | PROVIDERS: PCP Family Medicine; Visit Provider Family Medicine | DX: K56.609 Unspecified intestinal obstruction, unspecified as to partial versus complete obstruction (principal) | CPT/HCPCS: A0425; A0434 ==

== ENCOUNTER 2024-10-25 05:07 | Inpatient (IN) | payer MEDICARE, OTHER, SELFPAY ==
[2024-10-25] VITALS (42 sets, daily range): BP systolic 82–135; BP diastolic 52–86; PULSE 62–106; RESP 10–24; TEMP 36.3–37.1; O2SAT 91–100; BMI 16.1; BMI 16.7
--- OUTSIDE RECORDS SUMMARY | 2024-10-25 05:09 | XMS_ITS | Clinical Summary ---
Author Organization [facility] Address [address] , [address] [place] [address] Phone Care Team Providers Care Carpenter And Joiner Name Role Phone Allegra Wong Conditions or Problems Problem Name Problem Code Onset Date Status Entry Date Provider Comment Standard Description Annotate Loss of consciousness 344799504 (SNOMED CT) 06/19 Active 06/19 Sai Steinberg MD Loss of consciousness Spells 83267409 (SNOMED CT) 06/19 Active 06/19 Sai Steinberg MD Stupor CARPAL TUNNEL SYNDROME 60103221 (SNOMED CT) 09/05 Active 09/05 Randal Figueroa MD Carpal tunnel syndrome LUMBAR RADICULOPATHY 257949791 (SNOMED CT) 08/08 Active 08/08 Randal Figueroa MD Lumbar radiculopathy NUMBNESS/TINGLI NG 782.0 (ICD-9-CM) 08/08 Active 08/08 Randal Figueroa MD Disturbance of skin sensation NUMBNESS/TINGLI NG 782.0 (ICD-9-CM) 03/11 Active 03/11 Makayla Chine DO Disturbance of skin sensation NECK PAIN 14660844 (SNOMED CT) 03/11 Active 03/11 Makayla E Aracely DO Neck pain COMMON MIGRAINE, NOT INTRACTABLE G43.009 (ICD-10-CM ) 03/11 Active 03/11 Makayla E Aracely DO Migraine without aura, not intractable, without status migrainosus Medications Medication Instructions Start Date Stop Date Generic Name [facility] Provider ZOFRAN 4 MG ORAL TABLET 1 every six hours as needed ZOFRAN 4 MG ORAL TABLET Sai Ni VICODIN 5-500 MG TABS 1-2 by mouth every four to six hours as needed VICODIN 5-500 MG TABS Sai Ni NALOXONE HCL 4 MG/0.1ML LIQD naloxone 78935529944 Sai Ni OXYCONTIN 20 MG T12A oxycodone 28229457661 Sai Ni LINZESS 145 MCG CAPS linaclotide 17452275626 Sai Ni ESCITALOPRAM OXALATE 20 MG TABS escitalopram oxalate 12072964824 Sai Ni OXYCODONE HCL 10 MG TABS oxycodone 36379223449 Sai Ni BUPROPION HCL ER (XL) 300 MG [id number] bupropion hcl 59360268355 Sai Ni SIMVASTATIN 20 MG TABS simvastatin 15679626139 Sai Ni TRAZODONE HCL 100 MG TABS trazodone 78330440095 Sai Ni OXYCODONE HCL 15 MG TABS oxycodone 65426674187 Sai Ni OXYCODONE HCL 5 MG TABS oxycodone 79139180555 Sai Ni PRAZOSIN HCL 1 MG CAPS prazosin 47904466826 Sai Ni TOPIRAMATE 100 MG TABS topiramate 29970821305 Sai Ni LAMOTRIGINE 200 MG TABS lamotrigine 44609299341 Sai Ni OMEPRAZOLE 40 MG CPDR omeprazole 91670833670 Sai Ni PRAMIPEXOLE DIHYDROCHLORIDE 0.5 MG TABS pramipexole 72635598439 Sai Ni ZOFRAN 4 MG ORAL TABLET 1 q 6 hrs prn ONDANSETRON HCL 41342616732 Makayla Chine DO VICODIN 5-500 MG TABS 1 -2 po q 4-6 hrs prn HYDROCODONE-KEVIN TAMINOPHEN 25650829675 Makayla Chine DO Medications Administered No information [...] COMPAZINE Anaphylaxis Mild Active Phi Carmine hayden [id number] INE Mild Active Phi Reginaldoecki BACLOFEN Mild Active Phi Reginaldoe cki Results Date Name Value Unit Range Flag Description Internal Other: Authorizatio n - OBS PTSTAUTHDT DONE N PT Startin g Authorization Date Office Visit: Office Visit s yncope and collapse scans- no records - [place] SMOK STATUS current every day smoker Tobacco [...] Date Entry Date [place] [address] [place] [address] EEG (40min) [id number] MRI-Brain W/WO CPT-88094 MRI Brain W/WO CPT-[id number] ProHance Gadolinium- based MR Contrast - 15 ml vial ORDERS Ammonia ORDERS Patient Instructions [facility]-[id number] Documentation of current medicatio ns ORDERS Comp Metabolic Panel (14) 20 03/07/09 ORDERS Magnesium Serum ORDERS Phosphorus CPT-98645 Motor NCS x 3 CPT-34440 Sensory NCS x 4 CPT-39387 Motor NCS x 3 CPT-83060 Sensory NCS x 3 CPT-26931 EMG with NCS (5+ muscles) - 1 limb 08/08 Vital Signs Date Name Value Unit Description Weight Measured 165 [lb_av] weight E& M Weight Measured 165 [lb_av] weight E& M Immunizations No information available. Advance Directives No information available.
--- OUTSIDE RECORDS SUMMARY | 2024-10-25 05:09 | XMS_ITS | Clinical Summary ---
Author Organization [facility] Address [address] [place] [id number] Care Team Providers Care Territory Account Manager Name Role Phone Tommy Mcelroy MD Primary Care Provider [phone] Allergies Active Allergy Reactions Criticality Noted Date Comments Baclofen 12/23/2012 Diphenhydramine-Zinc Acetate Other (See Comments) 04/24/2011 Makes restless leg symptoms worse. Compazine Anaphylaxis 10/23/2004 Cyclobenzaprine Other (See Comments) 04/24/2011 Makes restless leg symptoms worse. Cyclobenzaprine Hcl 12/23/2012 Methocarbamol Other (See Comments) 04/24/2011 Makes restless leg symptoms worse. Mirtazapine 12/23/2012 Uqkgwtzicmgx-Zecbiym-Mtoz ine 12/23/2012 Medications pramipexole (MIRAPEX) 0.125 MG [...] on file Legal Sex Female 3:09 AM PURCHASING DEPARTMENT CLERK Gender Identity Not on file Sexual Orientation Not on file Last Filed Vital Signs Vital Sign Reading Time Taken Comments Blood Pressure 105/66 01/02/2024 1:30 PM PURCHASING DEPARTMENT CLERK Pulse 87 01/02/2024 11:36 AM PURCHASING DEPARTMENT CLERK Temperature 36.4 C (97.6 F) 01/02/2024 11:36 AM PURCHASING DEPARTMENT CLERK Respiratory Rate 16 01/02/2024 1:30 PM PURCHASING DEPARTMENT CLERK Oxygen Saturation 98% 01/02/2024 1:30 PM PURCHASING DEPARTMENT CLERK Inhaled Oxygen Concentration - - Weight 67.1 kg (148 lb) 01/02/2024 11:36 AM PURCHASING DEPARTMENT CLERK Height 175.3 cm (5' 9) 01/02/2024 11:36 AM PURCHASING DEPARTMENT CLERK Body Mass Index 21.86 01/02/2024 11:36 AM PURCHASING DEPARTMENT CLERK Plan of Treatment Health Maintenance Due Date [...] (2 of 2 - PCV) 06/30/2013 06/30/2012 PHQ-2 (once per calendar year) 2024 COVID-19 VACCINE ( season) 2024 08/12/2023, 07/30/2021, 12/02/2020, Additional history exists INFLUENZA VACCINE (#1) 2024 , 11/17/2020, 11/26/2019, [...] this topic Medical Devices Implanted Type Area Free Lance Model Device Identifier Shelf Expiration Date Model / Serial / Lot Graft Bone Foam Pack Vitoss 10ml Bio Active [id number] Implanted:Qty: 1 on 05/02/2011 at [facility] N/A: Spine Lumbar 10/04/[id number] / / [id number] Iom Supplies Implanted:Qty: 1 on 05/02/2011 at [facility] Cell Saver Standby Implanted:Qty: 1 on 05/02/2011 at [facility] Graft Bone Crush Canc 15ml [id number] Implanted:Qty: 1 on 05/02/2011 at [facility] N/A: Spine Lumbar [id number] / [id number] / 14x12 Align Implanted:Qty: 1 on 05/02/2011 at [facility] N/A: Spine Lumbar [id number] / / [id number] 16x12 Align Implanted:Qty: 1 on 05/02/2011 at [facility] N/A: Spine Lumbar [id number] / / [id number] 25mm Plate Implanted:Qty: 1 on 05/02/2011 at [facility] N/A: Spine Lumbar [id number] / / [id number] 25mm Screw Implanted:Qty: 4 on 05/02/2011 at [facility] N/A: Spine Lumbar [id number] / / [id number] Imp Washer Syn [place] 13.5x5.5mm Implanted:Qty: 2 on 05/02/2011 at [facility] N/A: Spine Lumbar 219.951 / / 0106 [id number] Imp Scr Syn Canc 6.3y416zf Ft Ti Implanted:Qty: 2 on 05/02/2011 at [facility] N/A: Spine Lumbar 418.025 / / 0106 [id number] Spf-Plus 60/M Implantable Spinal Fusion Stimulator Implanted:Qty: 1 on 03/02/2014 by Brock Sawyer MD at [facility] N/A: Back [employer] 07/03/2015 10-1398M / [id number] / Graft Bone Foam Pack Vitoss 10ml Bio Active [id number] Implanted:Qty: 1 on 03/02/2014 by Brock Sawyer MD at [facility] N/A: Back ORTHOVITA 09/10/2015 1418-0759 / / [id number] Imp Scr Medt 5.5/6.0mm Solera 6.5x45mm Ma [id number] Implanted:Qty: 4 on 03/02/2014 by Brock Sawyer MD at [facility] N/A: Back [employer] [id number] / / [id number] 2014 Imp Scr Medt 5.5/6.0mm Solera 8.5x70mm Ma [id number] Implanted:Qty: 2 on 03/02/2014 by Brock Sawyer MD at [facility] N/A: Back [employer] [id number] / / [id number] 01 MAR 2014 Imp Scr Set Medt Solera Break Off 5.5mm Ti [id number] Implanted:Qty: 6 on 03/02/2014 by Brock Sawyer MD at [facility] N/A: Back [employer] [id number] / / [id number] 01 MAR 2014 Imp Beltran Medt Solera Cvd 5.7a395ql Ti [id number] Implanted:Qty: 2 on 03/02/2014 by Brock Sawyer MD at [facility] N/A: Back [employer] [id number] / / [id number] 02 MAR 2014 Imp Scr Syn Can 4.0x20mm Ft Ss 206.020 Implanted:Qty: 2 on 03/02/2014 by Brock Sawyer MD at [facility] N/A: Back SYNTHES-STRATEC 206.020 / / Impulse Implanted:Qty: 1 on 03/02/2014 by Brock Sawyer MD at [facility] Explanted Type Area Free Lance Model Device Identifier Shelf Expiration Date Model / Serial / Lot Imp Scr Danek Sext Can 6.5x40mm Legacy Ti Implanted:Qty: 2 on 05/02/2011 at [facility] Explanted:Qty: 2 on 03/02/2014 at [facility] N/A: Spine Lumbar [id number] / / [id number] 01MAY2011 Imp Scr Danek Set G4 Internal Hex [id number] Implanted:Qty: 4 on 05/02/2011 at [facility] Explanted:Qty: 4 on 03/02/2014 at [facility] N/A: Spine Lumbar [id number] / / [id number] 01MAY2011 Imp Beltran Danek Sext 60mm Ti [id number] Implanted:Qty: 2 on 05/02/2011 at [facility] Explanted:Qty: 2 on 03/02/2014 at [facility] N/A: Spine Lumbar [id number] / / [id number] 01MAY2011 Imp Scr Danek Sext Can 6.5x45mm Legacy Ti Implanted:Qty: 2 on 05/02/2011 at [facility] Explanted:Qty: 2 on 03/02/2014 at [facility] N/A: Spine Lumbar [id number] / / [id number] 01MAY2011 Description:BILATERAL SCREWS FROM S1, SCREW HEAD REMOVED, SCREW SHAFT REMAINS Procedures Procedure Name Priority Date/Time Associated Diagnosis Comments BASIC METABOLIC PANEL STAT 01/02/2024 12:11 PM PURCHASING DEPARTMENT CLERK from Last 3 Months or Most Recently Relevant to Health Maintenance Results * (ABNORMAL) Basic metabolic panel (BMP) (01/02/2024 12:11 PM PURCHASING DEPARTMENT CLERK) Sodium 136 135 - 145 mmol/L 01/02/2024 12:43 PM PURCHASING DEPARTMENT CLERK LABORATORY Potassium 3.8 3.4 - 5.3 mmol/L 01/02/2024 12:43 PM PURCHASING DEPARTMENT CLERK LABORATORY Chloride 102 98 - 107 mmol/L 01/02/2024 12:43 PM PURCHASING DEPARTMENT CLERK LABORATORY Carbon Dioxide (CO2) 22 22 - 29 mmol/L 01/02/2024 12:43 PM PURCHASING DEPARTMENT CLERK LABORATORY Anion Gap 12 7 - 15 mmol/L 01/02/2024 12:43 PM PURCHASING DEPARTMENT CLERK LABORATORY Urea Nitrogen 13.9 8.0 - 23.0 mg/dL 01/02/2024 12:43 PM [facility] Creatinine 0.78 0.51 - 0.95 mg/dL 01/02/2024 12:43 PM PURCHASING DEPARTMENT CLERK LABORATORY GFR Estimate 86 >60 mL/min/1.7 3m2 01/02/2024 12:43 PM PURCHASING DEPARTMENT CLERK [facility] Comment:eGFR calculated us2020 CKD-EPI equation. Calcium 8.9 8.8 - 10.4 mg/dL 01/02/2024 12:43 PM PURCHASING DEPARTMENT CLERK [facility] Comment:Reference intervals for this test were updated on 08/26/2023 to reflect our healthy population more accurately. There may be differences in the flagging of prior results with similar values performed with this method. Those prior results can be interpreted in the context of the updated reference intervals. Glucose 127(H) 70 - 99 mg/dL 01/02/2024 12:43 PM PURCHASING DEPARTMENT CLERK [facility] Blood BLOOD SPECIMEN / Unknown Venipuncture / Unknown 01/02/2024 12:11 PM PURCHASING DEPARTMENT CLERK 01/02/2024 12:23 PM PURCHASING DEPARTMENT CLERK us Kimberly Rutherford PA-C LAB - BLOOD ORDERABLES Final Result [facility] [address] [facility] [facility] (1st floor, no room number) [place] [address], [facility] from Last 3 Months or Most Recently Relevant to Health Maintenance Insurance [employer] MEDICARE MEDICA PRIME SOLUTION MEDICARE OTHER OTHER none (Work) [id number] [place] [id number] [facility] [employer] Advance Directives For more information, please contact: [phone] * Full Code (Latest Code Status on File) Date Activated Date Inactivated Comments 05/02/2011 8:26 PM 05/06/2011 2:41 PM * Full Code Date Activated Date Inactivated Comments 05/02/2011 2:17 PM 05/02/2011 8:26 PM Care Teams Territory Account Manager Relationship Specialty Start Date End Date Tommy Mcelroy MD PCP - General Family Practice 04/16/11
--- OUTSIDE RECORDS SUMMARY | 2024-10-25 05:10 | XMS_ITS | Clinical Summary ---
Author Organization [facility] Address [address] [place] [address] Care Team Providers Care Hris Analyst Name Role Phone Hayes Mcelroy MD Primary Care Provider [facility], [place] Unavailable Allergies Active Allergy Reactions Criticality Noted Date [...] BY MOUTH AT BEDTIME 30 Each 1 08/02/19 10 Active prazosin (MINIPRESS) 1 mg capsule Take 1 mg by mouth at bedtime. 2 10/14/19 19 Active simvastatin (ZOCOR) 20 mg tablet Take 20 mg by mouth at bedtime. 3 07/15/20 19 Active traZODone (DESYREL) 100 mg tablet Take 100 mg by mouth at bedtime. 2 09/25/19 Active lamoTRIgine (LAMICTAL) 200 mg tablet Take 200 mg by mouth 2 times daily. Active buPROPion (WELLBUTRIN XL) 300 mg Extended-Release tablet Take 300 mg by mouth every morning. Active metFORMIN (GLUCOPHAGE) 1,000 mg tabletIndications :Diabetes 1.5, managed as type 2 (HC) Take 1 tablet by mouth 2 times daily with meals. 0 10/02/19 Active NARCAN 4 mg/actuation spry nasal spray Administer one dose (4 mg) into nostril as needed for opioid overdose and call 911. Give second dose into the other nostril after 2 to 3 min 10/14/19 Active dicyclomine (BENTYL) 20 mg tablet Take 20 mg by mouth 3 times daily before meals. Active omeprazole (PRILOSEC) 40 mg Delayed-Release capsule Take 40 mg by mouth once daily. Active DULoxetine (CYMBALTA) 60 mg Delayed-release capsule Take 120 mg by mouth once daily. 12/22/19 Active sennosides-docusa te (SENOKOT S) (8.6-50 mg) tabletIndications :Lumbar radiculopathy,Opi oid use Take 1-4 Tablets by mouth two times daily. 100 Tablet 2 2:51 PM BRICK LOADER 01/18/20 Active tiZANidine (ZANAFLEX) 2 mg tabletIndications :Lumbar radiculopathy Take 1-2 Tablets (2-4 mg) by mouth every 6 hours if needed for Muscle Spasm. 60 Tablet 2 2:51 PM BRICK LOADER 01/18/20 Active Accu-Chek Guide test strips strip USE TO TEST TWICE A DAY 01/10/20 Active Accu-Chek Guide Glucose Meter USE TO CHECK BLOOD GLUCOSE LEVELS. 01/10/20 Active Accu-Chek Softclix Lancets USE TO TEST TWICE A DAY 01/10/20 Active buprenorphine-nal oxone (SUBOXONE) 8-[address] 0.5 Film under the tongue four times daily. Place film under the tongue until completely dissolved. Do not chew or swallow film. Active semaglutide (OZEMPIC) 2 mg/dose (8 mg/3 mL) subcutaneous pen Inject 2 mg subcutaneous once weekly. Active topiramate (TOPAMAX) 100 mg tablet Take 150 mg by mouth 2 times daily. 025 Discontin ued(*Jeanne ent states no longer taking) furosemide (LASIX) 20 mg tablet Take 20 mg by mouth once daily if needed. 08/16/19 025 Discontin ued(*Jeanne ent states no longer taking) escitalopram oxalate (LEXAPRO) 20 mg tablet Take 20 mg by mouth at bedtime. 025 Discontin ued(*Jeanne ent states no longer taking) ergocalciferol (VITAMIN D2; DRISDOL) 50,000 unit capsuleIndication s:S/P cervical spinal fusion Take 1 Capsule (50,000 units) by mouth once weekly. 12 Capsule 3 07/03/19 025 Discontin ued(*Jeanne ent states no longer taking) lidocaine 5 % topical patch Apply 1-3 Patches on dry, clean, hairless skin once daily if needed. 10/18/19 025 Discontin ued(*Jeanne ent states no longer taking) oxyCODONE (ROXICODONE) 15 mg immediate release tablet TAKE 1 TABLET BY MOUTH EVERY 4-6 HOURS NEEDED FOR CHRONIC PAIN, MAX 5 TABLETS PER DAY 01/19/20 025 Discontin ued(*Jeanne ent states no longer taking) oxyCODONE 10 mg tabletIndications :Post-op pain Take 1-2 Tablets (10-20 mg) by mouth every 4 hours if needed for Pain. 60 Tablet 01/31/20 025 Discontin ued(*Jeanne ent states no longer taking) Active Problems Problem Noted Date Diagnosed Date Hypokalemia 10/20/2024 Hypomagnesemia 10/20/2024 SBO (small bowel obstruction) 10/13/2024 Chronic anemia 08/22/2021 Type 2 diabetes mellitus [...] Encounters Date Type Department Care Team Description 10/14/2024 Travel 10/13/2024 2:33 AM CDT - 10/22/2024 3:00 PM CDT Hospital Encounter [facility] [address] [place] [address] [facility], MD Leyla Couch, MD Nataliia Quezada, Sindy Diallo MD SBO (small bowel obstruction) (HC) (Primary Dx) Discharge Disposition: Home Health from Last 3 Months Immunizations Immunization Administration Dates Next Due AMB [...] e alcohol) Social Connections Answer Date Recorded Do you often feel lonely or isolated from those around you? 0 10/14/2024 Financial Resource Strain Answer Date R ecorded Difficulty of Paying Living Expenses 3 10/14/2024 Difficulty of Paying Living Expenses Not on file 10/14/2024 Food Insecurity Answer Date Recorded Do you worry your food will run out before you are able to buy more? 1 10/14/2024 Transportation Needs Answer Date Record ed Does lack of transportation keep you from medica l appointments? 1 10/14/2024 Does lack of transportation keep you from work, meetings or getting things that you need? 1 10/14/2024 Housing Stability Answer Date Recorded What is your housing situation today? 1 10/14/2024 Interpersonal Safety Answer Date Record ed Are you being hit, kicked, p ushed or yelled at (see row info)? No 10/14/2024 Interpersonal Safety Abuse 12 - 18 Not on file 10/14/2024 Interpersonal Safety Ambulatory Vulnerability No t on file 10/14/2024 Utilities Answer Date Recorded Do you have trouble paying f or utilities (for example, heat, electricity, water, phone)? 1 10/14/2024 Comments No Sex and Gender Information Value Date Recorded Sex Assigned at Not on file Legal Sex Female 6:10 AM BRICK LOADER Gender Identity Not on file Sexual Orientation Not on file Occupation Industry Job Start Date Job End Date Not on file Not on file Not on file Not on file Obstetrics History Last Filed Vital Signs Vital Sign Reading Time Taken Comments Blood Pressure 108/78 10/22/2024 12:03 PM CDT Pulse 87 10/22/2024 12:03 PM CDT Temperature 37 C (98.6 F) 10/22/2024 12:03 PM CDT Respiratory Rate 16 10/22/2024 12:03 PM CDT Oxygen Saturation 95% 10/22/2024 12:03 PM CDT Inhaled Oxygen Concentration - - Weight 54.4 kg (120 lb) 10/13/2024 2:34 AM CDT Height 175.3 cm (5' 9) 10/13/2024 2:34 AM CDT Body Mass Index 17.72 10/13/2024 2:34 AM CDT Plan of Treatment Health Maintenance [...] 04/11/2022, 01/30/2022, 01/10/2022, Additional history exists Influenza Vaccine (#1) 2024 12/13/2008, 2008 Pap test for age 21-65 11/21/2025 , 11/21/2022, 07/28/2017, Additional history exists RSV vaccine for adults or (1 - 1-dose 75+ series) 2037 COVID-19 vaccine series Completed 01/27/20 24, 08/12/2023, 07/30/2021, Additional history exists Hepatitis B series for 19+ Aged Out N o longer eligible based on patient's age to complete this topic Medical Devices Implanted Type Area Boiler Room Helper Device Identifier Shelf Expiration Date Model / Serial / Lot Bone Matrix 10cc Progenix Plusputty Dbm - [id number] Implanted:Qty : 1 on 12/01/2019 by Brock Sawyer MD at [facility] N/A: Lumbar Vertebrae Medtronic Spine/Ortho 06/15/2021 [id number] / / [id number] Spacer Lmbr [id number] 11deg Elevate Extra-Lordoti c Peek Titn - [id number] Implanted:Qty : 1 on 12/01/2019 by Brock Sawyer MD at [facility] N/A: Lumbar Vertebrae Medtronic Spine/Ortho 09/15/2027 [id number]# / / [id number] Screw Lmbr Post 6.5x50mm Solera 5.5/6 Va Cocr - [id number] Implanted:Qty : 4 on 12/01/2019 by Brock Sawyer MD at [facility] N/A: Lumbar Vertebrae Medtronic Spine/Ortho [id number] / / 5.5 X 500mm Cc Beltran Implanted:Qty : 1 on 12/01/2019 by Brock Sawyer MD at [facility] N/A: Lumbar Vertebrae Medtronic Spine/Ortho [id number] / / Bone 1-4mm 90cc Medtronic Chips Canclls Freeze Dried - [id number] Implanted:Qty : 1 on 12/01/2019 by Brock Sawyer MD at [facility] N/A: Lumbar Vertebrae Medtronic Spine/Ortho 04/24/2024 [id number]# / / [id number]: [id number] Bone Matrix Infuse Bmp - [id number] Implanted:Qty : 1 on 12/01/2019 by Brock Sawyer MD at [facility] N/A: Lumbar Vertebrae Medtronic Spine/Ortho 11/09/2021 [id number]# / / [id number] Bone 1-4mm 30cc Medtronic Chips Canclls Freeze Dried - [id number] Implanted:Qty : 1 on 12/01/2019 by Brock Sawyer MD at [facility] N/A: Lumbar Vertebrae Medtronic Spine/Ortho 05/31/2024 [id number]# / / ID: [id number] Spacer Lmbr [id number] 12deg Elevate Extra-Lordoti c Peek Tit - [id number] Implanted:Qty : 1 on 12/01/2019 by Brock Sawyer MD at [facility] N/A: Lumbar Vertebrae Medtronic Spine/Ortho 05/31/2027 [id number]# / / [id number] Bone Matrix 10cc Progenix Putty Dbm - [id number] Implanted:Qty : 1 on 12/01/2019 by Brock Sawyer MD at [facility] N/A: Lumbar Vertebrae Medtronic Spine/Ortho 01/15/2021 [id number]# / / [id number] Set Screw Lmbr Ant 5.5mm Solera Break Off - [id number] Implanted:Qty : 10 on 12/01/2019 by Brock Sawyer MD at [facility] Explanted:Qty : 1 on 06/27/2020 by Brock Sawyer MD at [facility] N/A: Lumbar Vertebrae Medtronic Spine/Ortho [id number]# / / Vitoss 1.2cc [id number] - [id number] Implanted:Qty : 1 on 01/17/2021 by Brock Sawyer MD at [facility] N/A: Cervical Vertebrae Iroquois Spine 05/07/[id number] / / [id number] Anterior Cervical Cage 7mm X 12mm X 14mm [id number] - [id number] Implanted:Qty : 1 on 01/17/2021 by Brock Sawyer MD at [facility] N/A: Cervical Vertebrae Bri Spine 01/25/2023 [id number] / / [id number] [place] View Plates 22mm [id number] - [id number] Implanted:Qty : 1 on 01/17/2021 by Brock Sawyer MD at [facility] N/A: Cervical Vertebrae Bri Spine [id number] / / [place] View Self-Starting Variable Screw 4.0x14mm [id number] - [id number] Implanted:Qty : 3 on 01/17/2021 by Brock Sawyer MD at [facility] N/A: Cervical Vertebrae Bri Spine [id number] / / [place] View Self-Starting Variable Screw 4.5x14mm [id number] - [id number] Implanted:Qty : 1 on 01/17/2021 by Brock Sawyer MD at [facility] N/A: Cervical Vertebrae [id number] / / Vitoss Bimodal Implanted:Qty : 1 on 08/21/2021 by Brock Sawyer MD at [facility] N/A: Cervical Vertebrae Iroquois Spine 05/07/2022 [id number] / / [id number] Bone Matrix 5cc Stimulan Kit Rapid Cure - [id number] Implanted:Qty : 1 on 08/21/2021 by Brock Sawyer MD at [facility] N/A: Cervical Vertebrae [employer] 09/10/2023 [id number] / / [id number] 3.5 X 12mm [place] Oct Polyaxial Screw Implanted:Qty : 3 on 08/21/2021 by Brock Sawyer MD at [facility] N/A: Cervical Vertebrae [employer] [id number] / / 34.0 X 12mm [place] Oct Polyaxial Screw Implanted:Qty : 1 on 08/21/2021 by Brock Sawyer MD at [facility] N/A: Cervical Vertebrae [employer] [id number] / / Set Screw Implanted:Qty : 4 on 08/21/2021 by Brock Sawyer MD at [facility] N/A: Cervical Vertebrae [employer] [id number] / / Contoured Rods4.0 X 25mm Implanted:Qty : 2 on 08/21/2021 by Brock Sawyer MD at [facility] N/A: Cervical Vertebrae K2[employer] Group Teranode [id number] / / Bone Matrix Sm Infuse Bmp - [id number] Implanted:Qty : 1 on 01/16/2022 by Brock Sawyer MD at [facility] Lumbar Vertebrae Medtronic Spine/Ortho 02/10/2024 [id number] / / [id number] Bone Matrix 5cc Progenix Plus Putty Dbm - [id number] Implanted:Qty : 1 on 01/16/2022 by Brock Sawyer MD at [facility] Spine Medtronic Spine/Ortho 05/02/2023 [id number] / [id number] / Bone 1-4mm 15cc Medtronic Chips Canclls Freeze Dried - [id number] Implanted:Qty : 1 on 01/16/2022 by Brock Sawyer MD at [facility] Spine Medtronic Spine/Ortho 12/04/2025 [id number] / [id number] / [id number] Implant 16mm Implanted:Qty : 1 on 01/16/2022 by Brock Sawyer MD at [facility] Spine Medtronic Spine/Ortho 07/05/2025 [id number] / / [id number] Luís Tas Bone Screw Implanted:Qty : 1 on 01/16/2022 by Brock Sawyer MD at [facility] Spine Medtronic Spine/Ortho [id number] / / Divergence Screws Implanted:Qty : 4 on 01/16/2022 by Brock Sawyer MD at [facility] Spine Medtronic Spine/Ortho [id number] / / Divergence 18mm Plate Implanted:Qty : 1 on 01/16/2022 by Brock Sawyer MD at [facility] Spine Medtronic Spine/Ortho [id number] / / Explanted Type Area Boiler Room Helper Device Identifier Shelf Expiration Date Model / Serial / Lot WinFreeCandy Precision Spinal Cord Stimulator Explanted:Qty: 1 on 12/01/2019 by Brock Sawyer MD at [facility] N/A: Lumbar Vertebrae [employer] / [id number] / Description:Battery and lead s explanted IPG model SC-1110 Bone Growth Stimulator Explanted:Qty: 1 on 12/01/2019 by Brock Sawyer MD at [facility] N/A: Lumbar Vertebrae Description:SpF-PLUS CLAUDIA [id number] Battery and leads explanted 100mm 5.5 Ti Beltran Explanted:Qty: 2 on 12/01/2019 by Brock Sawyer MD at [facility] N/A: Lumbar Vertebrae Set Screws Solera Explanted:Qty: 6 on 12/01/2019 by Brock Sawyer MD at [facility] N/A: Lumbar Vertebrae Medtronic Spine/Ortho Screw Sm Joint 4.5x20mm Axsos Raymundo Titin - [id number] Explanted:Qty: 4 on 12/01/2019 by Brock Sawyer MD at [facility] N/A: Lumbar Vertebrae [employer] [id number]# / / 8.5 X 70 Mm Ballast Screw Explanted:Qty: 1 on 06/27/2020 by Brock Sawyer MD at [facility] Right: Lumbar Vertebrae Medtronic Procedures Procedure Name Priority Date/Time Associated Diagnosis Comments HEMOGLOBIN A1C Today 10/22/2024 2:06 PM CDT SCAN-CARDIAC STRIP 10/22/2024 7: 08 AM CDT SODIUM Early AM 10/22/2024 5:16 AM CDT PHOSPHORUS Early AM 10/22/2024 5:16 AM CDT MAGNESIUM Early AM 10/22/2024 5:16 AM CDT POTASSIUM Early AM 10/22/2024 5:16 AM CDT SCAN-CARDIAC STRIP 10/22/2024 1: 55 AM CDT SCAN-CARDIAC STRIP 10/21/2024 4: 33 PM CDT SCAN-CARDIAC STRIP 10/21/2024 8: 47 AM CDT GLUCOSE METER Timed 10/21/2024 8:25 AM CDT BASIC METABOLIC PANEL Early AM 10/21/2024 6:33 AM CDT PHOSPHORUS Early AM 10/21/2024 6:33 AM CDT MAGNESIUM Early AM 10/21/2024 6:33 AM CDT SCAN-CARDIAC STRIP 10/21/2024 2: 34 AM CDT GLUCOSE METER Timed 10/20/2024 9:37 PM CDT POTASSIUM Timed 10/20/2024 7:38 PM CDT SCAN-CARDIAC STRIP 10/20/2024 7: 34 PM CDT SCAN-CARDIAC STRIP 10/20/2024 6: 06 PM CDT GLUCOSE METER Timed 10/20/2024 5:02 PM CDT GLUCOSE METER Timed 10/20/2024 12:30 PM CDT MAGNESIUM STAT 10/20/2024 9:02 AM CDT POTASSIUM STAT 10/20/2024 9:02 AM CDT XR ABDOMEN 1 VIEW Routine 10/20/2024 8:5 9 AM CDT GLUCOSE METER Timed 10/20/2024 8:13 AM CDT SODIUM JERARDO 10/20/2024 6:54 AM CDT CREATININE JERARDO 10/20/2024 6:54 AM CDT CALCIUM JERARDO 10/20/2024 6:54 AM CDT PHOSPHORUS Early AM 10/20/2024 6:54 AM CDT POTASSIUM Early AM 10/20/2024 6:54 AM CDT MAGNESIUM Early AM 10/20/2024 6:54 AM CDT GLUCOSE METER Timed 10/20/2024 1:07 AM CDT GLUCOSE METER Timed 10/19/2024 8:57 PM CDT XR ABDOMEN 1 VIEW JERARDO 10/19/2024 8:0 0 PM CDT GLUCOSE METER Timed 10/19/2024 4:59 PM CDT GLUCOSE METER Timed 10/19/2024 11:46 AM CDT XR ABDOMEN 1 VIEW Routine 10/19/2024 8:1 4 AM CDT GLUCOSE METER Timed 10/19/2024 7:50 AM CDT POTASSIUM Early AM 10/19/2024 5:20 AM CDT PHOSPHORUS Early AM 10/19/2024 5:20 AM CDT MAGNESIUM Early AM 10/19/2024 5:20 AM CDT GLUCOSE METER Timed 10/18/2024 9:00 PM CDT GLUCOSE METER Timed 10/18/2024 5:26 PM CDT GLUCOSE METER Timed 10/18/2024 2:59 PM CDT XR COLON WATER SOLUBLE Routine 10/18/2024 12:56 PM CDT GLUCOSE METER Timed 10/18/2024 11:57 AM CDT GLUCOSE METER Timed 10/18/2024 7:40 AM CDT CREATININE Early AM 10/18/2024 4:58 AM CDT ELECTROLYTE PANEL Early AM 10/18/2024 4:5 8 AM CDT PHOSPHORUS Early AM 10/18/2024 4:58 AM CDT MAGNESIUM Early AM 10/18/2024 4:58 AM CDT GLUCOSE METER Timed 10/18/2024 2:44 AM CDT XR ABDOMEN 1 VIEW PORTABLE JERARDO 10/17/2024 9:23 PM CDT GLUCOSE METER Timed 10/17/2024 9:15 PM CDT GLUCOSE METER Timed 10/17/2024 4:49 PM CDT XR ABDOMEN 1 VIEW PORTABLE STAT 10/17/2024 12:23 PM CDT GLUCOSE METER Timed 10/17/2024 11:33 AM CDT PHOSPHORUS Early AM 10/17/2024 8:45 AM CDT CREATININE Early AM 10/17/2024 8:45 AM CDT ELECTROLYTE PANEL Early AM 10/17/2024 8:4 5 AM CDT MAGNESIUM Early AM 10/17/2024 8:45 AM CDT GLUCOSE METER Timed 10/17/2024 7:46 AM CDT GLUCOSE METER Timed 10/16/2024 9:39 PM CDT GLUCOSE METER Timed 10/16/2024 5:16 PM CDT GLUCOSE METER Timed 10/16/2024 12:24 PM CDT GLUCOSE METER Timed 10/16/2024 8:02 AM CDT PHOSPHORUS JERARDO 10/16/2024 5:38 AM CDT CREATININE Early AM 10/16/2024 5:38 AM CDT ELECTROLYTE PANEL Early AM 10/16/2024 5:3 8 AM CDT MAGNESIUM Early AM 10/16/2024 5:38 AM CDT GLUCOSE METER Timed 10/16/2024 4:26 AM CDT GLUCOSE METER Timed 10/15/2024 11:48 PM CDT GLUCOSE METER Timed 10/15/2024 9:23 PM CDT GLUCOSE METER Timed 10/15/2024 5:13 PM CDT XR ABDOMEN 1 VIEW PORTABLE Routine 10/15/2024 2:35 PM CDT GLUCOSE METER Timed 10/15/2024 11:35 AM CDT GLUCOSE METER Timed 10/15/2024 7:51 AM CDT PHOSPHORUS JERARDO 10/15/2024 4:54 AM CDT MAGNESIUM Early AM 10/15/2024 4:54 AM CDT HEMOGLOBIN Early AM 10/15/2024 4:54 AM CDT CREATININE Early AM 10/15/2024 4:54 AM CDT ELECTROLYTE PANEL Early AM 10/15/2024 4:5 4 AM CDT GLUCOSE METER Timed 10/15/2024 3:49 AM CDT GLUCOSE METER Timed 10/14/2024 11:21 PM CDT GLUCOSE METER Timed 10/14/2024 9:20 PM CDT GLUCOSE METER Timed 10/14/2024 4:52 PM CDT GLUCOSE METER Timed 10/14/2024 3:45 PM CDT GLUCOSE METER Timed 10/14/2024 11:06 AM CDT XR ABDOMEN 1 VIEW PORTABLE Routine 10/14/2024 8:07 AM CDT GLUCOSE METER Timed 10/14/2024 8:03 AM CDT HEMOGLOBIN Early AM 10/14/2024 7:02 AM CDT CREATININE Early AM 10/14/2024 7:02 AM CDT ELECTROLYTE PANEL Early AM 10/14/2024 7:0 2 AM CDT MAGNESIUM Early AM 10/14/2024 7:02 AM CDT GLUCOSE METER Timed 10/14/2024 2:32 AM CDT GLUCOSE METER Timed 10/13/2024 9:01 PM CDT GLUCOSE METER Timed 10/13/2024 7:45 PM CDT GLUCOSE METER Timed 10/13/2024 4:28 PM CDT GLUCOSE METER Timed 10/13/2024 1:19 PM CDT SCAN CORRESP-EKG RESULTS 10/13/2024 12:46 PM CDT GLUCOSE METER Timed 10/13/2024 7:39 AM CDT CBC W PLT NO DIFF Early AM 10/13/2024 5:0 1 AM CDT MAGNESIUM Early AM 10/13/2024 5:01 AM CDT CREATININE Early AM 10/13/2024 5:01 AM CDT POTASSIUM Early AM 10/13/2024 5:01 AM CDT SODIUM Early AM 10/13/2024 5:01 AM CDT HPV HIGH RISK Routine 11/21/2022 9:04 AM CDT XR FFDM MAMMO SCREENING BILATERAL SSP (IA) Routine 11/06/2009 10:54 AM CDT Other screening mammogram from Last 3 Months or Most Recently Relevant to Health Maintenance Results * Screening hemoglobin A1c FOR ADD ON (10/22/2024 2:06 PM CDT) HEMOGLOBIN A1C SCREENING 6.2 <=6.4 % 10/22/2024 3:32 PM CDT [facility] Blood BLOOD SPECIMEN / Unknown Butterfly / Unknown 10/22/2024 2:06 PM CDT 10/22/2024 2:12 PM CDT Narrative [facility] - 10/22/2024 3:32 PM CDT (<5.7%) Normal (5.7% to 6.4%) Indicates prediabetes (>=6.5%) Confirms diabetes Falsely low levels may be seen with: Recent Transfusion, Recent Significant Blood Loss, Hemolytic Diseases, or Falsely elevated levels may be seen with: Untreated Anemias, Splenectomy us Sindy William MD CHEMISTRY Final Resul t [facility] [address] [place] [address], * SCAN-CARDIAC STRIP (10/22/2024 7:08 AM CDT) us Scanner OTHER Final Result * (ABNORMAL) Sodium AM (10/22/2024 5:16 AM CDT) Only the most recent of3 resultswithin the time period is included. SODIUM 135(L) 136 - 145 mmol/L 10/22/2024 5:50 AM CDT [facility] Blood BLOOD SPECIMEN / Unknown Butterfly / Unknown 10/22/2024 5:16 AM CDT 10/22/2024 5:24 AM CDT us Sindy William MD CHEMISTRY Final Resul t Performing Organization Address City/[facility] Co de Phone Number [facility] [address] [place] [address], [place] * POTASSIUM (10/22/2024 5:16 AM CDT) Only the most recent of6 resultswithin the time period is included. POTASSIUM 4.3 3.5 - 5.1 mmol/L 10/22/2024 5:50 AM CDT [facility] Blood BLOOD SPECIMEN / Unknown Butterfly / Unknown 10/22/2024 5:16 AM CDT 10/22/2024 5:24 AM CDT us Snidy William MD CHEMISTRY Final Resul t Performing Organization Address [facility] de Phone Number [facility] [address] [place] [address], [place] * PHOSPHORUS (10/22/2024 5:16 AM CDT) Only the most recent of8 resultswithin the time period is included. PHOSPHORUS 3.1 2.5 - 4.5 mg/dL 10/22/2024 5:50 AM CDT [facility] Blood BLOOD SPECIMEN / Unknown Butterfly / Unknown 10/22/2024 5:16 AM CDT 10/22/2024 5:24 AM CDT us Sindy William MD CHEMISTRY Final Resul t Performing Organization Address City/[facility] Co de Phone Number [facility] [address] [place] [address], * MAGNESIUM (10/22/2024 5:16 AM CDT) Only the most recent of11 resultswithin the time period is included. MAGNESIUM 1.8 1.6 - 2.4 mg/dL 10/22/2024 5:50 AM CDT [facility] Blood BLOOD SPECIMEN / Unknown Butterfly / Unknown 10/22/2024 5:16 AM CDT 10/22/2024 5:24 AM CDT us Sindy William MD CHEMISTRY Final Resul t Performing Organization Address [facility]/ZIP Co de Phone Number [facility] [address] [place] [address], * SCAN-CARDIAC STRIP (10/22/2024 1:55 AM CDT) us Scanner OTHER Final Result * SCAN-CARDIAC STRIP (10/21/2024 4:33 PM CDT) us Scanner OTHER Final Result * SCAN-CARDIAC STRIP (10/21/2024 8:47 AM CDT) us Scanner OTHER Final Result * (ABNORMAL) GLUCOSE METER (10/21/2024 8:25 AM CDT) Only the most recent of43 resultswithin the time period is included. GLUCOSE METER 109(H) 65 - 100 mg/dL 10/21/2024 8:28 AM CDT [facility] Blood BLOOD SPECIMEN / Unknown 10/21/2024 8:25 AM CDT 10/21/2024 8:28 AM CDT us Sindy William MD CHEMISTRY Final Resul t Performing Organization Address [facility]/ZIP Co de Phone Number [facility] [address] [place] [address], * (ABNORMAL) Basic metabolic panel AM (10/21/2024 6:33 AM CDT) SODIUM 137 136 - 145 mmol/L 10/21/2024 7:45 AM [facility] POTASSIUM 3.6 3.5 - 5.1 mmol/L 10/21/2024 7:45 AM [facility] CHLORIDE 98 98 - 107 mmol/L 10/21/2024 7:45 AM [facility] CO2,TOTAL 27 22 - 29 mmol/L 10/21/2024 7:45 AM [facility] ANION GAP 12 5 - 18 10/21/2024 7:45 AM [facility] GLUCOSE 120(H) 70 - 99 mg/dL 10/21/2024 7:45 AM [facility] CALCIUM 8.6(L) 8.8 - 10.4 mg/dL 10/21/2024 7:45 AM [facility] Comment: Reference ranges for this test were updated on 12/16/2023 to reflect our healthy population more accurately. Reference range changes are not retroactively applied to results, but previous results using the same methodology can be interpreted in the context of the new reference range. BUN 26(H) 8 - 23 mg/dL 10/21/2024 7:45 AM [facility] CREATININE 0.67 0.50 - 0.90 mg/dL 10/21/2024 7:45 AM [facility] BUN/CREAT RATIO 39(H) 10 - 20 7:45 AM [facility] eGFR >90 >90 mL/min/1. 73m2 10/21/2024 7:45 AM [facility] Comment:As of 2021, eG FR is calculated by the CKD-EPI creatinine equation without race adjustment. eGFR can be influenced by muscle mass, exercise, and diet. The reported eGFR is an estimation only and is only applicable if the renal function is stable. Blood BLOOD SPECIMEN / Unknown Butterfly / Unknown 10/21/2024 6:33 AM CDT 10/21/2024 6:59 AM CDT us Sindy William MD CHEMISTRY Final Resul t [facility] [facility] [address] [place] [address], [place] * SCAN-CARDIAC STRIP (10/21/2024 2:34 AM CDT) us Scanner OTHER Final Result * SCAN-CARDIAC STRIP (10/20/2024 7:34 PM CDT) us Scanner OTHER Final Result * SCAN-CARDIAC STRIP (10/20/2024 6:06 PM CDT) us Scanner OTHER Final Result * XR ABDOMEN 1 VIEW (10/20/2024 8:59 AM CDT) Only the most recent of3 resultswithin the time period is included. Anatomical Region Laterality Modality Abdomen Digital Radiogra phy 10/20/2024 9:42 AM CDT Impressions 10/20/2024 9:42 AM CDT Enteric tube terminates in the fundus, as before. Multiple dilated small bowel loops persist but have slightly improved. Contrast material is present in the colon. No other significant interval change. Dictated by Smith Sorto DO @ Oct 20 2024 9:42AM (Electronically Signed) [email or web address] Narrative 10/20/2024 9:42 AM CDT For Patients: As a result of the 21st Century Cures Act, medical imaging exams and procedure reports are released immediately into your electronic medical record. You may view this report before your referring provider. If you have questions, please contact your health care provider. INDICATION: Suspected/known obstruction. TECHNIQUE: Abdomen two views. COMPARISON: 10/19/2024. Procedure Note Smith Sorto DO - 10/20/2024 For Patients: As a result of the Cures Act, medical imagingexams and procedure reports are released immediately into your electronicmedical record. You may view this report before your referring provider.If you have questions, please contact your health care provider. INDICATION: Suspected/known obstruction. TECHNIQUE: Abdomen two views. COMPARISON: 10/19/2024. IMPRESSION: Enteric tube terminates in the fundus, as before. Multiple dilated smallbowel loops persist but have slightly improved. Contrast material ispresent in the colon. No other significant interval change. Dictated by Smith Sorto, @ Oct 20 2024 9:42AM (Electronically Signed) [email or web address] us Evelyn Weinstein MD GENERAL IMAGING Final Result * (ABNORMAL) Creatinine FOR ADD ON (10/20/2024 6:54 AM CDT) Only the most recent of7 resultswithin the time period is included. eGFR >90 >90 mL/min/1.7 3m2 10/20/2024 8:30 AM CDT [facility] Comment:As of 2021, eG FR is calculated by the CKD-EPI creatinine equation without race adjustment. eGFR can be influenced by muscle mass, exercise, and diet. The reported eGFR is an estimation only and is only applicable if the renal function is stable. CREATININE 0.45(L) 0.50 - 0.90 mg/dL 10/20/2024 8:30 AM CDT [facility] Blood BLOOD SPECIMEN / Unknown Venipuncture / Unknown 10/20/2024 6:54 AM CDT 10/20/2024 7:13 AM CDT us Sindy William MD CHEMISTRY Final Resul t [facility] [address] [place] [address], * (ABNORMAL) Calcium FOR ADD ON (10/20/2024 6:54 AM CDT) Pathologist [facility] CALCIUM 6.2(L) 8.8 - 10.4 mg/dL 10/20/2024 8:34 AM CDT [facility] TRAL LABORATORY Comment: Reference ranges for this test were updated on 12/16/2023 to reflect our healthy population more accurately. Reference range changes are not retroactively applied to results, but previous results using the same methodology can be interpreted in the context of the new reference range. Blood BLOOD SPECIMEN / Unknown Venipuncture / Unknown 10/20/2024 6:54 AM CDT 10/20/2024 7:13 AM CDT us Sindy William MD CHEMISTRY Final Resul t [facility] [address] [place] [address], [place] * XR COLON WATER SOLUBLE (10/18/2024 12:56 PM CDT) Anatomical Region Laterality Modality COLON Digital Radiogra phy Impressions 10/18/2024 2:53 PM CDT Therapeutic Gastrografin enema for constipation with large amount of retained stool. Contrast was reflexed to the level of the cecum but the terminal ileum was not visualized. Persistent gaseous dilatation of small bowel. Narrative 10/18/2024 2:53 PM CDT INDICATION Small bowel obstruction and constipation. TECHNIQUE Administration of Gastrografin was performed through a rectal catheter. Fluoroscopy time: 1 minute and 6 seconds. Findings: Colon: Large amount of retained stool. Uniform caliber no transition zone. The terminal ileum was not visualized. Contrast was administered to the level of the cecum. Miscellaneous: Gas-filled multiple mildly dilated bowel loops similar to previous exam October 17. Lumbar stabilization hardware. us Sindy William MD FLUOROSCOPY Final Resul t * (ABNORMAL) Electrolyte panel AM (10/18/2024 4:58 AM CDT) Only the most recent of5 resultswithin the time period is included. SODIUM 142 136 - 145 mmol/L 10/18/2024 5:41 AM CDT [facility] POTASSIUM 3.5 3.5 - 5.1 mmol/L 10/18/2024 5:41 AM CDT [facility] CHLORIDE 97(L) 98 - 107 mmol/L 10/18/2024 5:41 AM CDT [facility] CO2,TOTAL 30(H) 22 - 29 mmol/L 10/18/2024 5:41 AM CDT [facility] ANION GAP 15 5 - 18 10/18/2024 5:41 AM CDT [facility] Blood BLOOD SPECIMEN / Unknown Venipuncture / Unknown 10/18/2024 4:58 AM CDT 10/18/2024 5:14 AM CDT us Nazario Mayer MD CHEMISTRY Fi nal Result [facility] [address] [place] [address], [place] * XR ABDOMEN 1 VIEW PORTABLE (10/17/2024 9:23 PM CDT) Only the most recent of4 resultswithin the time period is included. Anatomical Region Laterality Modality Abdomen Digital Radiogra phy 10/17/2024 9:53 PM CDT Narrative 10/17/2024 9:53 PM CDT For Patients: As a result of the Cures Act, medical imaging exams and procedure reports are released immediately into your electronic medical record. You may view this report before your referring provider. If you have questions, please contact your health care provider. INDICATION: Suspect obstruction TECHNIQUE: Single view abdomen. Comparison 10/17/2024 FINDINGS: Significant amount of stool throughout the entire colon again seen diffuse moderately dilated air-filled small bowel loops not significantly changed from the most recent study obstruction. Findings may represent. No free air seen NG tube in the stomach. Dictated by Pauly Paredes MD @ Oct 17 2024 9:53PM (Electronically Signed) [email or web address] Procedure Note Pauly Paredes MD - 10/17/2024 For Patients: As a result of the Cures Act, medical imagingexams and procedure reports are released immediately into your electronicmedical record. You may view this report before your referring provider.If you have questions, please contact your health care provider. INDICATION: Suspect obstruction TECHNIQUE: Single view abdomen. Comparison 10/17/2024 FINDINGS: Significant amount of stool throughout the entire colon again seen diffusemoderately dilated air-filled small bowel loops not significantly changedfrom the most recent study obstruction. Findings may represent. No freeair seen NG tube in the stomach. Dictated by Pauly Paredes MD @ Oct 17 2024 9:53PM (Electronically Signed) [email or web address] Danie [facility] Mary l Result * (ABNORMAL) Hemoglobin AM (10/15/2024 4:54 AM CDT) Only the most recent of2 resultswithin the time period is included. HEMOGLOBIN 10.1(L) 12.0 - 16.0 g/dL 10/15/2024 5:47 AM CDT [facility] MCV 84 80 - 100 fL 10/15/2024 5:47 AM CDT [facility] Blood BLOOD SPECIMEN / Unknown Butterfly / Unknown 10/15/2024 4:54 AM CDT 10/15/2024 5:41 AM CDT Nazario Mayer MD HEMATOLOGY Fi nal Result [facility] [address] [place] [address], * SCAN CORRESP-EKG RESULTS (10/13/2024 12:46 PM CDT) Narrative 10/13/2024 12:46 PM CDT Ordered by an unspecified provider. Other Clinical Staff OTHER Final Resul t * (ABNORMAL) CBC W PLT NO DIFF (10/13/2024 5:01 AM CDT) WHITE BLOOD COUNT 3.7(L) 4.5 - 11.0 thou/cu mm 10/13/2024 5:32 AM CDT [facility] TRAL LAB[facility]AT[facility] RED BLOOD COUNT 4.35 4.00 - 5.20 mil/cu mm 10/13/2024 5:32 AM CDT [facility] HEMOGLOBIN 11.8(L) 12.0 - 16.0 g/dL 10/13/2024 5:32 AM CDT [facility] HEMATOCRIT 36.3 33.0 - 51.0 % 10/13/2024 5:32 AM CDT [facility] MCV 83 80 - 100 fL 10/13/2024 5:32 AM CDT [facility] MCH 27.1 26.0 - 34.0 pg 10/13/2024 5:32 AM CDT [facility] MCHC 32.5 32.0 - 36.0 g/dL 10/13/2024 5:32 AM CDT [facility] RDW 14.6 11.5 - 15.5 % 10/13/2024 5:32 AM CDT [facility] PLATELET COUNT 184 140 - 440 thou/cu mm 10/13/2024 5:32 AM CDT [facility] MPV 8.9 6.5 - 11.0 fL 10/13/2024 5:32 AM CDT [facility] NRBC 0.0 % 10/13/2024 5:32 AM CDT [facility] ABS NRBC 0.0 thou /cu mm 10/13/2024 5:32 AM CDT [facility] Blood BLOOD SPECIMEN / Unknown Venipuncture / Unknown 10/13/2024 5:01 AM CDT 10/13/2024 5:26 AM CDT us Joaquin Mcgowan MD HEMATOLOGY Final Res ult [facility] [address] [place] [address], * (ABNORMAL) HPV HIGH RISK (11/21/2022 9:04 AM CDT) TYPE 16 Negative Negative 11/27/2022 11:43 AM CDT [facility] TYPE 18 Negative Negative 11/27/2022 11:43 AM CDT [facility] TRA LAB[facility]AT[facility] OTHER HIGH RISK TYPES Positive(A) Negative 11/27/2022 11:43 AM CDT [facility] Other (Cervical) 11/21/2022 9:04 AM CDT 11/25/2022 11:50 AM CDT Narrative [facility] - 11/27/2022 11:43 AM CDT Specimen is positive for the DNA of any one of, or combination of, the following high risk HPV types: 31, 33, 35, 39, 45, 51, 52, 56, 58, 59, 66, 68. HPV types 16 and 18 DNA were undetectable or below the pre-set threshold. Methodology: Newco LS15as 4800 HPV Test may [facility] MICRO[facility]OLOG[facility] Final Resu lt [facility] [address] [place] [address], [place] * XR FFDM MAMMO SCREENING BILATERAL [...] of Computer-Aided Detection. COMPARISON FILMS: Yes 10/07/[address] [facility] FINDINGS: Mammographically, the breast tissue is [...] of Computer-Aided Detection. COMPARISON FILMS: Yes 10/07/[address] [facility] FINDINGS: Mammographically, the breast tissue is heterogeneously dense,which could obscure detection of small masses (approximately 51% - 75%glandular). No suspicious masses or microcalcifications. Benignappearing calcifications within both breasts. IMPRESSION: There is no radiographic evidence for malignancy. Recommendannual mammograms. A lay language report of this examination will be provided to the patient. MAMMOGRAM ASSESSMENT: ACR 2 Benign us Ellen MONZON MAMMO Final Resu lt from Last 3 Months or Most Recently Relevant to Health Maintenance Insurance [employer] PB ONLY MEDICARE PART B HB ONLY MEDICARE PART A HB ONLY MEDICA PRIME SOLUTION [place] [id number] MEDICA PRIME [employer] MEDICARE PPS Advance Directives * Full Code (Latest Code Status on File) Date Activated Date Inactivated Comments 10/13/2024 3:00 AM 10/22/2024 5:43 PM Question Answer Comments Code Status Discussion: Reviewed Preferences * Full Code Date Activated Date Inactivated Comments 01/16/2022 5:47 [...] to Assess Preferences, Provider to review later Care Teams Hris Analyst Relationship Specialty Start Date End Date Hayes Mcelroy MD [address] [place] [address] PCP - General Family Practice 10/20/24 [facility] [address] [place] [address] 10/22/24
--- OUTSIDE RECORDS SUMMARY | 2024-10-25 05:10 | XMS_ITS | Clinical Summary ---
Author Organization [facility] Address [address] [place] [address] Care Team Providers Care Software Developer Intern Name Role Phone Tommy Mcelroy MD Primary Care Provider [phone] Source Comments You are receiving this document as you are listed as the primary care provider,follow-up provider, or the patient has been referred to you for consultation.This is in compliance with the Medicare andUniversity [facility] Medical Centercaid EHR Incentive Program,which states Providers who transition their patient to another setting of careor provider of care or refers their patient to another provider of care shouldprovide summary care record for each transition of care or referral. [facility] Allergies Active Allergy Reactions Criticality Noted Date Comments Antihistamines, Diphenhydramine-Type 06/16/2009 I have restless leg syndrome Phenothiazines Other, see comments 06/16/2009 Medications Pramipexole Dihydrochloride (MIRAPEX OR) None Entered Active LORazepam (ATIVAN OR) Active Active Problems Problem Noted Date Diagnosed Date Right foot pain 05/13/2022 Overview (05/13/2022): Added automatically from request for surgery [id number] Social History Tobacco Use Types Packs/Day Years [...] 06/30/2013 06/30/2012 COVID-19 Vaccine (5 - season) 2024 07/30/2021, 12/02/2020, 06/02/2020, Additional history [...] CARE MEDICA MEDICA PRIME SOLUTION Care Teams Software Developer Intern Relationship Specialty Start Date End Date Tommy Mcelroy MD [facility] [address] [place] [address] PCP - General Family Practice 05/07/22
--- OUTSIDE RECORDS SUMMARY | 2024-10-25 05:10 | XMS_ITS | Clinical Summary ---
Author Organization [facility] Address [address] [place] [address] [place] [address] Care Team Providers Care Linseed Oil Boiler Name Role Phone [facility]- Unava ilable Hayes Mcelroy MD Primary Care Provider [phone] Allergies Active Allergy Reactions Criticality Noted Date Comments Atorvastatin Other 09/30/2019 Skin irritation around eyes Baclofen Nausea Low 12/23/2012 Hiyvkycucshd-Klzcokc-Ntwiun e Low 12/23/2012 Cyclobenzaprine Low 04/24/2011 Other [...] 3 Active naloxone (NARCAN) 4 mg/actuation Nasal [place] Administer one dose (4 mg) into nostril [...] (11/11/2022): Added automatically from request for surgery [id number] Chronic anemia 08/22/2021 Type 2 diabetes mellitus [...] drink = 0.6 oz pur e alcohol) [facility] [employer] Answer Date Recorded In the past 12 months has [employer], gas, oil, or water [employer] threatened to shut off services in your [...] any time in the past 12 m [facility], were you homeless or living in a jail (including now)? No 09/23/2023 Comments No Sex [...] this topic Medical Devices Implanted Type Area Medical Transcription Supervisor Device Identifier Shelf Expiration Date Model / Serial / Lot Beltran 50mm 5.5mm Ccm Curv - [id number] Implanted:Qty : 1 on 09/23/2023 by Brock Sawyer MD at [facility] Beltran N/A: Spine Lumbar [employer] [id number] / / Beltran 60mm 5.5mm Ccm Curv - [id number] Implanted:Qty : 1 on 09/23/2023 by Brock Sawyer MD at [facility] Beltran N/A: Spine Lumbar [employer] [id number] / / Set Screw Solera Brk Off - [id number] Implanted:Qty : 4 on 09/23/2023 by Brock Sawyer MD at [facility] Screw/An chor N/A: Spine Lumbar [employer] [id number] / / Insurance [employer] [place] [id number] MEDICA PRIME SOLUTION MEDICARE PART A & B Advance Directives For more information, please contact: [phone] * Full Code (Latest Code Status on File) Date Activated Date Inactivated Comments 09/24/2023 3:26 PM 09/25/2023 5:49 PM Question Answer Comments How was code status determined? Patient * Full Code Date Activated Date Inactivated Comments 09/23/2023 5:59 AM 09/23/2023 9:48 AM Question Answer Comments How was code status determined? Previous [facility] Care Teams Linseed Oil Boiler Relationship Specialty Start Date End Date [facility]- [address] [place] [address] PCP - Primary Care Clinic 09/18/22 [place] [address] [place] [address] PCP - General 05/20/23
--- NOTE | 2024-10-25 06:08 | CRLHL7_ITS ---
For Patients: As a result of the Century Cures Act, medical imaging exams and procedure reports are released immediately into your electronic medical record. You may view this report before your referring provider. If you have questions, please contact your health care provider. INDICATION: Left-sided abdominal. COMPARISON: Pain and history of obstruction 10/12/2024, 10/08/2024, 06/26/2022 TECHNIQUE: CT of the abdomen and pelvis with intravenous contrast. Multiplanar axial, coronal, and sagittal reformats were reconstructed. Contrast: 53 mL Isovue 370. FINDINGS: Lung bases: Normal. Liver: Normal. No mass. Gallbladder and bile ducts: Cholecystectomy. Biliary ductal dilatation may be reservoir effect. Pancreas: Normal. Spleen: Normal. Adrenal glands: No adrenal mass. Kidneys: Normal renal size and position. Normal enhancement. No cyst or solid mass. Hyperdense excreted contrast in the collecting systems. No urinary tract dilation. Urinary bladder: Normal. Pelvis: No cyst or mass. Vessels: No aortic aneurysm. Retroaortic left renal vein. Bowel: Ingested food and fluid in the stomach. Dilated small bowel with a transition point in the central lower abdomen. Luminal diameter up to 3.5 cm. There is some small bowel wall thickening at the level of the transition point measuring up to 1 centimeter. The bowel is very difficult to follow due to low visceral fat and streak artifact from the spinal hardware. No definite closed loop morphology identified. The cecum is distended with fluid. There is hyperdense contrast in the colon from the splenic flexure to the rectum. Highly redundant sigmoid colon without volvulus. The appendix is not discretely seen. Mild stool burden. Lymph nodes: There are some mildly prominent mesenteric lymph nodes near the transition point. See series 2, images 91 and 95. Peritoneum: No ascites. Mild mesenteric edema. Abdominal wall: No abdominal wall hernia or mass. Bones: Postoperative lumbosacral spine. Multilevel laminectomies. Multilevel interbody devices. Anterior and posterior fusion hardware. Fragment of what appears to be a spinal stimulator lead or bone stimulator lead in the left side soft tissues extending into the left paraspinal ossification. There are several residual screw tracts in vertebral bodies in both iliac bones. No acute fractures. No focal worrisome bone lesions. IMPRESSION: Small bowel obstruction. There is some bowel wall thickening just proximal to what appears to be the transition point. No definitive findings of a closed loop obstruction, although the bowel is very difficult to follow due to streak artifact from the spinal hardware. The degree of bowel distention is not quite as severe as 10/12/2024. No findings of definite ischemia or perforation. Please note that all CT scans at this facility use dose modulation, iterative reconstruction, and/or weight-based dosing when appropriate to reduce radiation dose to as low as reasonably achievable. Dictated by Citlaly Castaneda MD @ 10/25/2024 7:54:05 AM (Electronically Signed)
--- OUTSIDE RECORDS SUMMARY | 2024-10-25 06:17 | XMS_ITS | Clinical Summary ---
Author Organization [facility] Address [address] , [address] [place] [address] Phone Care Team Providers Care Mechanical Field Engineer Name Role Phone Allegra Wong Conditions or Problems Problem Name Problem Code Onset Date Status Entry Date Provider Comment Standard Description Annotate Loss of consciousness 188983237 (SNOMED CT) 06/19 Active 06/19 Sai Steinberg MD Loss of consciousness Spells 52644824 (SNOMED CT) 06/19 Active 06/19 Sai Steinberg MD Stupor CARPAL TUNNEL SYNDROME 55108933 (SNOMED CT) 09/05 Active 09/05 Randal Figueroa MD Carpal tunnel syndrome LUMBAR RADICULOPATHY 632562561 (SNOMED CT) 08/08 Active 08/08 Randal Figueroa MD Lumbar radiculopathy NUMBNESS/TINGLI NG 782.0 (ICD-9-CM) 08/08 Active 08/08 Randal Figueroa MD Disturbance of skin sensation NUMBNESS/TINGLI NG 782.0 (ICD-9-CM) 03/11 Active 03/11 Makayla Chine DO Disturbance of skin sensation NECK PAIN 30162693 (SNOMED CT) 03/11 Active 03/11 Makayla E Aracely DO Neck pain COMMON MIGRAINE, NOT INTRACTABLE G43.009 (ICD-10-CM ) 03/11 Active 03/11 Makayla E Aracely DO Migraine without aura, not intractable, without status migrainosus Medications Medication Instructions Start Date Stop Date Generic Name [facility] Provider ZOFRAN 4 MG ORAL TABLET 1 every six hours as needed ZOFRAN 4 MG ORAL TABLET Sai Ni VICODIN 5-500 MG TABS 1-2 by mouth every four to six hours as needed VICODIN 5-500 MG TABS Sia Ni NALOXONE HCL 4 MG/0.1ML LIQD naloxone 24669518398 Sai Ni OXYCONTIN 20 MG T12A oxycodone 71513150544 Sai Ni LINZESS 145 MCG CAPS linaclotide 01939907976 Sai Ni ESCITALOPRAM OXALATE 20 MG TABS escitalopram oxalate 92693632929 Sai Ni OXYCODONE HCL 10 MG TABS oxycodone 76169006723 Sai Ni BUPROPION HCL ER (XL) 300 MG [id number] bupropion hcl 12857432270 Sai Ni SIMVASTATIN 20 MG TABS simvastatin 18859843537 Sai Ni TRAZODONE HCL 100 MG TABS trazodone 37504173731 Sai Ni OXYCODONE HCL 15 MG TABS oxycodone 31519277882 Sai Ni OXYCODONE HCL 5 MG TABS oxycodone 40454402264 Sai Ni PRAZOSIN HCL 1 MG CAPS prazosin 13058139623 Sai Ni TOPIRAMATE 100 MG TABS topiramate 95600945625 Sai Ni LAMOTRIGINE 200 MG TABS lamotrigine 44511479389 Sai Ni OMEPRAZOLE 40 MG CPDR omeprazole 42644074231 Sai Ni PRAMIPEXOLE DIHYDROCHLORIDE 0.5 MG TABS pramipexole 98028073751 Asi Ni ZOFRAN 4 MG ORAL TABLET 1 q 6 hrs prn ONDANSETRON HCL 61660185477 Makayla Chine DO VICODIN 5-500 MG TABS 1 -2 po q 4-6 hrs prn HYDROCODONE-KEVIN TAMINOPHEN 99159648985 Makayla Chine DO Medications Administered No information [...] COMPAZINE Anaphylaxis Mild Active Phi Carmine hayden [id number] INE Mild Active Phi Reginaldoecki BACLOFEN Mild Active Phi Reginaldoe cki Results Date Name Value Unit Range Flag Description Internal Other: Authorizatio n - OBS PTSTAUTHDT DONE N PT Startin g Authorization Date Office Visit: Office Visit s yncope and collapse scans- no records - [place] SMOK STATUS current every day smoker Tobacco [...] Date Entry Date ORDERS [place] [address] [place] [address] EEG (40min) [id number] MRI-Brain W/WO CPT-09928 MRI Brain W/WO CPT-V4122E ProHance Gadolinium- based MR Contrast - 15 ml vial ORDERS Ammonia ORDERS Patient Instructions [facility]-[id number] Documentation of current medicatio ns ORDERS Comp Metabolic Panel (14) 20 03/07/09 ORDERS Magnesium Serum ORDERS Phosphorus CPT-59493 Motor NCS x 3 CPT-08150 Sensory NCS x 4 CPT-95438 Motor NCS x 3 CPT-77164 Sensory NCS x 3 CPT-48018 EMG with NCS (5+ muscles) - 1 limb 08/08 Vital Signs Date Name Value Unit Description Weight Measured 165 [lb_av] weight E& M Weight Measured 165 [lb_av] weight E& M Immunizations No information available. Advance Directives No information available.
[2024-10-25] MEDS: LACTATED RINGERS 1000 ML 1,000 ML 500 ML IV (06:28)
[2024-10-25] MEDS: ONDANSETRON 2 MG/ML inj 4 MG IVP (06:28)
--- NOTE | 2024-10-25 06:32 | ED.GENADULT ---
HPI - General Adult General Chief complaint: Abdominal Pain <Lotus Doll MD - Last Filed: 10/25/24 23:58> Stated complaint: severe abdominal pain <Lotus Doll MD - Last Filed: 10/25/24 23:58> Time Seen by Provider: 10/25/24 05:21 <Lotus Doll MD - Last Filed: 10/25/24 23:58> Source: patient <Lotus Doll MD - Last Filed: 10/25/24 23:58> Mode of arrival: ambulatory <Lotus Doll MD - Last Filed: 10/25/24 23:58> Limitations: no limitations <Lotus Doll MD - Last Filed: 10/25/24 23:58> History of Present Illness HPI narrative: 63-year-old female with a notable history of recent small-bowel obstruction presents to the emergency department with recurrence of abdominal pain, nausea. Patient was originally evaluated in our emergency department on the , transferred to [facility]. Unfortunately, she was found to have a small-bowel obstruction. Previous history of appendectomy and cholecystectomy. She does have a history of chronic pain disorder and is on chronic narcotics. She is also using Ozempic and dicyclomine which were discontinued. Thankfully she did not require surgery. She did have an NG tube placed. Patient was having regular bowel movements and tolerating a low-fiber diet by the time of discharge. She reports that when she went home she had only felt about 2/3 better and that lasted for less than 48 hours when her symptoms started to recur yesterday. She vomited x1 yesterday but continues to feel very distended today and have abdominal pain in the left periumbilical area. Her last bowel movement was about 4 hours ago, watery. No bloody stools or bloody vomit. No fever. Has not been able to get relief at home. Does use Suboxone at baseline, was not sent home with additional pain medication. No new injuries or trauma. Discharge summary reviewed. Difficulty managing pain and anxiety were noted during hospitalization. Past medical history notable for anxiety, GERD, restless leg, chronic pain disorder. Allergies are to hydroxyzine venlafaxine Compazine and Benadryl. Meds are reviewed. No recent discontinuation of Bentyl and Ozempic. ROS is notable for the GI symptoms as above only, otherwise denies times 12 systems. <Lotus Doll MD - Last Filed: 10/25/24 23:58> Related Data Home medications: Home Medications ?Medication ?Instructions ?Recorded ?Confirmed lamotrigine 200 mg tablet 200 mg PO BID 08/17/21 10/25/24 tizanidine 4 mg tablet 2 - 4 mg PO Q6H PRN 03/13/23 10/25/24 bupropion HCl 300 mg 24 hr tablet, 300 mg PO DAILY 09/16/23 10/25/24 extended release duloxetine 60 mg capsule,delayed 120 mg PO DAILY 09/16/23 10/25/24 release (Cymbalta) buprenorphine 8 mg-naloxone 2 mg 0.5 film sublingual QID chronic 05/18/24 10/25/24 sublingual film pain trazodone 100 mg tablet 100 mg PO HS 06/02/24 10/25/24 metformin 1,000 mg tablet 1,000 mg PO BIDWM 10/25/24 10/25/24 prazosin 1 mg capsule 1 mg PO HS 10/25/24 10/25/24 sennosides 8.6 mg-docusate sodium 1 - 4 tab-cap PO BID 10/25/24 10/25/24 50 mg tablet (Senna with Docusate Sodium) simvastatin 20 mg tablet 20 mg PO HS 10/25/24 10/25/24 Previous Rx's ?Medication ?Instructions ?Recorded blood-glucose meter #1 ea 05/19/23 blood sugar diagnostic (Accu-Chek #100 ea 05/21/23 Kaylee Plus test strips) omeprazole 40 mg capsule,delayed 40 mg PO DAILY #90 caps 12/30/23 release lancets (Accu-Chek Softclix #300 ea 04/12/24 Lancets) pramipexole 0.5 mg tablet 0.5 mg PO DAILY #90 tabs 10/07/24 <Lotus Doll MD - Last Filed: 10/25/24 23:58> Allergies/adverse reactions: Allergies Allergy/AdvReac Type Severity Reaction Status Date / Time hydroxyzine Allergy Severe involuntary Verified 10/25/24 07:36 muscle movement venlafaxine Allergy Mild Rash, Verified 10/25/24 07:36 restless legs prochlorperazine (From Allergy Verified 10/25/24 07:36 Compazine) diphenhydramine AdvReac Mild Effects RLS Verified 10/25/24 07:36 <Lotus Doll MD - Last Filed: 10/25/24 23:58> [facility] Medical History: Medical History (Updated 10/25/24 @ 17:09 by Beth Rudd MD) Buprenorphine dependence ?F11.20 - Opioid dependence, uncomplicated (ICD-10) Chronic back pain ?M54.9 - Dorsalgia, unspecified (ICD-10) ?G89.29 - Other chronic pain (ICD-10) Chronic neck pain ?M54.2 - Cervicalgia (ICD-10) ?G89.29 - Other chronic pain (ICD-10) Anxiety (01/17/10) ?F41.9 - Anxiety disorder, unspecified (ICD-10) Depression (08/20/11) ?F32.A - Depression, unspecified (ICD-10) Hyperlipidemia ?E78.5 - Hyperlipidemia, unspecified (ICD-10) Latent autoimmune diabetes in adults, managed as type 2 ?E13.9 - Other specified diabetes mellitus without complications (ICD-10) Obstipation ?K59.00 - Constipation, unspecified (ICD-10) Pre-op examination ?Z01.818 - Encounter for other preprocedural examination (ICD-10) Anemia ?D64.9 - Anemia, unspecified (ICD-10) Constipation ?K59.00 - Constipation, unspecified (ICD-10) Seasonal allergies ?J30.2 - Other seasonal allergic rhinitis (ICD-10) Abnormal Pap smear of cervix ?R87.619 - Unspecified abnormal cytological findings in specimens from cervix uteri (ICD-10) Right knee pain ?M25.561 - Pain in right knee (ICD-10) Compartment syndrome of left lower extremity ?T79.A22A - Traumatic compartment syndrome of left lower extremity, initial encounter (ICD-10) Palpitations ?R00.2 - Palpitations (ICD-10) Syncope ?R55 - Syncope and collapse (ICD-10) 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) ?M50.20 - Other cervical disc displacement, unspecified cervical region (ICD-10) <Lotus Doll MD - Last Filed: 10/25/24 23:58> Surgical History: Surgical History Status post open reduction and internal fixation (ORIF) of fracture ?Z98.890 - Other specified postprocedural states (ICD-10) ?Z87.81 - Personal history of (healed) traumatic fracture (ICD-10) S/P laparoscopic procedure ?Z98.890 - Other specified postprocedural states (ICD-10) S/P insertion of spinal cord stimulator ?Z96.89 - Presence of other specified functional implants (ICD-10) S/P lumbar fusion ?Z98.1 - Arthrodesis status (ICD-10) S/P cervical spinal fusion ?Z98.1 - Arthrodesis status (ICD-10) S/P bunionectomy ?Z98.890 - Other specified postprocedural states (ICD-10) History of tonsillectomy and adenoidectomy (01/17/10) ?Z90.89 - Acquired absence of other organs (ICD-10) History of laparoscopic appendectomy (05/14/12) ?Z90.49 - Acquired absence of other specified parts of digestive tract (ICD-10) History of cholecystectomy (01/17/10) ?Z90.49 - Acquired absence of other specified parts of digestive tract (ICD-10) History of appendectomy (06/30/12) ?Z90.49 - Acquired absence of other specified parts of digestive tract (ICD-10) <Lotus Doll MD - Last Filed: 10/25/24 23:58> Family History: Family History Mother Osteoporosis <Lotus Doll MD - Last Filed: 10/25/24 23:58> Social History: Social History Narrative: , currently engaged to be . On disability. 3 children. No alcohol. Non-smoker. No illicit drug use. What is your current living situation?: I presently have a place to live Problems where you live: no known problems Problems where you live details: na In the past 12 months, utilities in danger of being shut off: no In past 12 months, lack of transportation kept you from medical appts, meetings, work, or getting things needed for daily living: no In the past 12 mos, have been you worried that your food would run out before you had money to buy more?: never true In the past 12 mos, the food you bought just didn't last and you didn't have money to buy more?: never true Highest level of school completed/degree received: some college, no degree Smoking Status: Former smoker How often do you have a drink containing alcohol: never AUDIT-C Alcohol total score: 0 Non-prescribed substance use: denies use Caffeine: Yes (1 cup in am, 1 pop day) How often does anyone, including family, friends and others, physically hurt you: decline to answer How often does anyone, including family, friends and others, insult or talk down to you: decline to answer How often does anyone, including family, friends and others, threaten you with harm: decline to answer How often does anyone, including family, friends and others, scream or curse at you: decline to answer service: No <Lotus Doll MD - Last Filed: 10/25/24 23:58> Exam Const: Vital Signs, click to edit/add: Vital Signs - 24 hr 10/25/24 05:12 10/25/24 06:24 10/25/24 08:03 Temperature 98.0 F Pulse Rate Pulse Rate [Right Pulse Oximeter] 100 90 Respiratory Rate 24 16 Blood Pressure Blood Pressure [Ri ght Upper Arm] 114/85 102/68 Pulse Oximetry 99 99 98 Oxygen Delivery Me thod Room Air Room Air 10/25/24 08:03 10/25/24 08:05 10/25/24 08:15 Temperature Pulse Rate 98 91 86 Pulse Rate [Right Pulse Oximeter] Respiratory Rate Blood Pressure 99/71 Blood Pressure [Ri ght Upper Arm] Pulse Oximetry 98 99 100 Oxygen Delivery Me thod 10/25/24 08:30 10/25/24 08:32 10/25/24 08:45 Temperature Pulse Rate 82 81 81 Pulse Rate [Right Pulse Oximeter] Respiratory Rate 16 Blood Pressure 135/78 Blood Pressure [Ri ght Upper Arm] Pulse Oximetry 99 98 98 Oxygen Delivery Me thod 10/25/24 09:00 10/25/24 09:15 10/25/24 09:30 Temperature Pulse Rate 86 85 86 Pulse Rate [Right Pulse Oximeter] Respiratory Rate Blood Pressure Blood Pressure [Ri ght Upper Arm] Pulse Oximetry 98 96 97 Oxygen Delivery Me thod 10/25/24 09:32 10/25/24 09:45 10/25/24 10:00 Temperature Pulse Rate 83 90 87 Pulse Rate [Right Pulse Oximeter] Respiratory Rate 16 Blood Pressure 128/82 Blood Pressure [Ri ght Upper Arm] Pulse Oximetry 96 96 98 Oxygen Delivery Me thod 10/25/24 10:01 10/25/24 10:02 10/25/24 10:15 Temperature 97.7 F Pulse Rate 87 86 91 Pulse Rate [Right Pulse Oximeter] Respiratory Rate 16 Blood Pressure 130/86 Blood Pressure [Ri ght Upper Arm] Pulse Oximetry 98 97 98 Oxygen Delivery Me thod 10/25/24 10:32 Temperature Pulse Rate Pulse Rate [Right Pulse Oximeter] Respiratory Rate Blood Pressure 129/84 Blood Pressure [Ri ght Upper Arm] Pulse Oximetry Oxygen Delivery Me thod <Lotus Doll MD - Last Filed: 10/25/24 23:58> Vital Signs, click to edit/add: Vital Signs - 24 hr 10/25/24 05:12 10/25/24 06:24 10/25/24 08:03 Temperature 98.0 F Pulse Rate Pulse Rate [Right Pulse Oximeter] 100 90 Respiratory Rate 24 16 Blood Pressure Blood Pressure [Ri ght Upper Arm] 114/85 102/68 Pulse Oximetry 99 99 98 Oxygen Delivery Me thod Room Air Room Air 10/25/24 08:03 10/25/24 08:05 10/25/24 08:15 Temperature Pulse Rate 98 91 86 Pulse Rate [Right Pulse Oximeter] Respiratory Rate Blood Pressure 99/71 Blood Pressure [Ri ght Upper Arm] Pulse Oximetry 98 99 100 Oxygen Delivery Me thod 10/25/24 08:30 10/25/24 08:32 10/25/24 08:45 Temperature Pulse Rate 82 81 81 Pulse Rate [Right Pulse Oximeter] Respiratory Rate 16 Blood Pressure 135/78 Blood Pressure [Ri ght Upper Arm] Pulse Oximetry 99 98 98 Oxygen Delivery Me thod 10/25/24 09:00 10/25/24 09:15 10/25/24 09:30 Temperature Pulse Rate 86 85 86 Pulse Rate [Right Pulse Oximeter] Respiratory Rate Blood Pressure Blood Pressure [Ri ght Upper Arm] Pulse Oximetry 98 96 97 Oxygen Delivery Me thod 10/25/24 09:32 10/25/24 09:45 10/25/24 10:00 Temperature Pulse Rate 83 90 87 Pulse Rate [Right Pulse Oximeter] Respiratory Rate 16 Blood Pressure 128/82 Blood Pressure [Ri ght Upper Arm] Pulse Oximetry 96 96 98 Oxygen Delivery Me thod 10/25/24 10:01 10/25/24 10:02 10/25/24 10:15 Temperature 97.7 F Pulse Rate 87 86 91 Pulse Rate [Right Pulse Oximeter] Respiratory Rate 16 Blood Pressure 130/86 Blood Pressure [Ri ght Upper Arm] Pulse Oximetry 98 97 98 Oxygen Delivery Me thod 10/25/24 10:32 Temperature Pulse Rate Pulse Rate [Right Pulse Oximeter] Respiratory Rate Blood Pressure 129/84 Blood Pressure [Ri ght Upper Arm] Pulse Oximetry Oxygen Delivery Me thod <Dev Gibson DO - Last Filed: 10/25/24 10:07> Documenting provider has reviewed patient's vital signs: yes <Lotus Doll MD - Last Filed: 10/25/24 23:58> Common normals: alert <Lotus Doll MD - Last Filed: 10/25/24 23:58> Other: Mild distress. Very thin appears adequately hydrated. <Lotus Doll MD - Last Filed: 10/25/24 23:58> HENMT: Common normals: normocephalic, moist oral mucous membranes, oropharynx normal and dentition normal <Lotus Doll MD - Last Filed: 10/25/24 23:58> Head and scalp: normocephalic <Lotus Doll MD - Last Filed: 10/25/24 23:58> Face and sinus: normal facial exam <Lotus Doll MD - Last Filed: 10/25/24 23:58> Mouth: oral and palatal mucosa normal <Lotus Doll MD - Last Filed: 10/25/24 23:58> Eye: Common normals: conjunctivae normal <MD Michelle Alexander Last Filed: 10/25/24 23:58> General eye: normal appearance of both eyes <MD Michelle Alexander Last Filed: 10/25/24 23:58> Conjunctiva: conjunctiva(e) normal <MD Michelle Alexander Last Filed: 10/25/24 23:58> Neck & C-Spine: Common normals: full ROM and no lymphadenopathy <MD Michelle Alexander Last Filed: 10/25/24 23:58> Resp: Common normals: normal respiratory effort, no use of accessory muscles and clear to auscultation bilaterally <MD Michelle Alexander Last Filed: 10/25/24 23:58> Effort & inspection: able to speak in complete sentences <MD Michelle Alexander Last Filed: 10/25/24 23:58> Auscultation: clear to auscultation bilaterally <MD Michelle Alexander Last Filed: 10/25/24 23:58> Cardio: Common normals: regular rate, regular rhythm, S1 normal heart sound, S2 normal heart sound and no murmurs <MD Michelle Alexander Last Filed: 10/25/24 23:58> Rate: regular rate <MD Michelle Alexander Last Filed: 10/25/24 23:58> Rhythm: regular rhythm <MD Michelle Alexander Last Filed: 10/25/24 23:58> Heart sounds: S1 normal and S2 normal <MD Michelle Alexander Last Filed: 10/25/24 23:58> GI: Other: Abdomen does appear distended. Exquisitely tender in the left periumbilical region. No obvious rebound tenderness or guarding. No mass. Liver does not seem enlarged. Bowel sounds are hyperactive. <MD Michelle Alexander Last Filed: 10/25/24 23:58> Back & Pelvis: Common normals: thoracic and lumbar spine normal to inspection <MD Michelle Alexander Last Filed: 10/25/24 23:58> Extremity: Common normals: normal to inspection, normal capillary refill and no pedal edema <Lotus Doll MD - Last Filed: 10/25/24 23:58> Neuro: Common normals: moves all extremities <Lotus Doll MD - Last Filed: 10/25/24 23:58> Sensorium/orientation: alert <Lotus Doll MD - Last Filed: 10/25/24 23:58> Psych: Appearance: grossly normal <Lotus Doll MD - Last Filed: 10/25/24 23:58> Attitude: engaged <Lotus Doll MD - Last Filed: 10/25/24 23:58> Activity/motor behavior: appropriate eye contact <Lotus Doll MD - Last Filed: 10/25/24 23:58> Insight: insight good <Lotus Doll MD - Last Filed: 10/25/24 23:58> Judgement: judgment good <Lotus Doll MD - Last Filed: 10/25/24 23:58> Skin: Common normals: no rashes or lesions noted <Lotus Doll MD - Last Filed: 10/25/24 23:58> General skin exam: no rashes or lesions noted <Lotus Doll MD - Last Filed: 10/25/24 23:58> Course Course ED Course: 63-year-old male with recent small-bowel obstruction, presenting with distended abdomen unfortunately suspicious for recurrence of small bowel obstruction. Counseled patient I would like to repeat the CT scan. Will obtain typical intra-abdominal labs. Cannot exclude ischemic bowel, internal hernia, colitis, gastritis, pancreatitis, multiple other conditions. May need to place NG tube again, will hold off for now. Will place peripheral IV, give 1 L of LR over 2 hours. 0.5 mg of Dilaudid and 4 mg of Zofran. Counseled patient that I will go up on the 0.5 mg of Dilaudid and she seems upset by this stating that ?it does not do enough?. I let her know that that is a firm limit until we have definitive findings for her pain and then week can consider a change in management if appropriate. Will likely need surgical consult and may require transfer again. Await all findings. <Lotus Doll MD - Last Filed: 10/25/24 23:58> Vital Signs Vital signs: Initial Vital Signs Temperature 98.0 F 10/25/24 05:12 Temperature Source Temporal Artery Scan 10/25/24 05:12 Pulse Rate 100 10/25/24 05:12 Respiratory Rate 24 10/25/24 05:12 Blood Pressure 114/85 10/25/24 05:12 Blood Pressure Mean 94 10/25/24 05:12 Blood Pressure Position Supine 10/25/24 05:12 Pulse Oximetry 99 10/25/24 05:12 Oxygen Delivery Method Room Air 10/25/24 05:12 Vital Signs Temperature 98.0 F 10/25/24 05:12 Pulse Rate 100 10/25/24 05:12 Respiratory Rate 24 10/25/24 05:12 Blood Pressure 114/85 10/25/24 05:12 Pulse Oximetry 99 10/25/24 05:12 Oxygen Delivery Method Room Air 10/25/24 05:12 Temperature 98.6 F 10/25/24 20:45 Pulse Rate 93 10/25/24 22:31 Respiratory Rate 12 10/25/24 22:31 Blood Pressure 93/58 L 10/25/24 22:31 Pulse Oximetry 96 10/25/24 22:31 Oxygen Delivery Method Room Air 10/25/24 22:31 Oxygen Flow Rate 3 10/25/24 16:25 <Lotus Doll MD - Last Filed: 10/25/24 23:58> Initial Vital Signs Temperature 98.0 F 10/25/24 05:12 Temperature Source Temporal Artery Scan 10/25/24 05:12 Pulse Rate 100 10/25/24 05:12 Respiratory Rate 10/25/24 05:12 Blood Pressure 114/85 10/25/24 05:12 Blood Pressure Mean 94 10/25/24 05:12 Blood Pressure Position Supine 10/25/24 05:12 Pulse Oximetry 99 10/25/24 05:12 Oxygen Delivery Method Room Air 10/25/24 05:12 Vital Signs Temperature 98.0 F 10/25/24 05:12 Pulse Rate 100 10/25/24 05:12 Respiratory Rate 24 10/25/24 05:12 Blood Pressure 114/85 10/25/24 05:12 Pulse Oximetry 99 10/25/24 05:12 Oxygen Delivery Method Room Air 10/25/24 05:12 Temperature 98.6 F 10/25/24 20:45 Pulse Rate 93 10/25/24 22:31 Respiratory Rate 12 10/25/24 22:31 Blood Pressure 93/58 L 10/25/24 22:31 Pulse Oximetry 96 10/25/24 22:31 Oxygen Delivery Method Room Air 10/25/24 22:31 Oxygen Flow Rate 3 10/25/24 16:25 <Dev Gibson, DO - Last Filed: 10/25/24 10:07> Medications Administered Medications: Generic Name Dose Route Start Last Admin Trade Name Freq PRN Reason Stop Dose Admin Buprenorphine/Naloxone 0.5 each 10/25/24 17:00 10/25/24 21:22 Buprenorphine-Nalox 8-2mg Film SUBLINGUAL 0.5 each QID MATEUS Administration Hydromorphone HCl 0.5 mg 10/25/24 11:55 10/25/24 22:11 Hydromorphone 0.5 Mg/0.5 Ml Inj IVP 0.5 mg Q2H PRN Administration Pain Lactated Ringer's 1,000 mls @ 125 mls/hr 10/25/24 16:58 10/25/24 18:48 Lactated Ringers 1000 Ml IV 125 mls/hr .Q8H MATEUS Administration Lactated Ringer's 500 mls @ 250 mls/hr 10/25/24 21:03 10/25/24 23:28 Lactated Ringers 500 Ml IV 250 mls/hr .Q2H PRN Administration for hypotension/narcotic needs Insulin Aspart 0 unit 10/25/24 17:30 10/25/24 21:13 Insulin Aspart 100 Unit/Ml SUBCUT Not Given ACHS MATEUS Protocol Lamotrigine 200 mg 10/25/24 21:00 10/25/24 21:18 Lamotrigine 100 Mg Tablet PO 200 mg BID MATEUS Administration Lidocaine 1 patch 10/25/24 21:45 10/25/24 22:23 Lidocaine 5% Patch TRANSDERMA Not Given Q24H MATEUS Protocol Prazosin HCl 1 mg 10/25/24 21:00 10/25/24 21:19 Prazosin Hcl 1 Mg Capsule PO 1 mg HS MATEUS Administration Sodium Chloride 5 ml 10/25/24 11:55 10/25/24 22:12 Sodium Chloride 0.9 % (Flush) 10 Ml Syringe IVF 5 ml .FLUSH PRN Administration Discontinued Medications Generic Name Dose Route Start Last Admin Trade Name Freq PRN Reason Stop Dose Admin Buprenorphine/Naloxone 0.5 each 10/25/24 13:00 10/25/24 12:51 Buprenorphine-Nalox 8-2mg Film SUBLINGUAL 0.5 each QID MATEUS Administration Buprenorphine/Naloxone 0.5 each 10/25/24 13:00 10/25/24 12:55 Buprenorphine-Nalox 8-2mg Film SUBLINGUAL 10/25/24 13:01 0.5 each ONCE ONE Administration Hydromorphone HCl 0.5 mg 10/25/24 06:08 10/25/24 06:28 Hydromorphone 0.5 Mg/0.5 Ml Inj IVP 10/25/24 06:09 0.5 mg ONCE ONE Administration Hydromorphone HCl 0.5 mg 10/25/24 08:23 10/25/24 08:26 Hydromorphone 0.5 Mg/0.5 Ml Inj IVP 10/25/24 08:24 0.5 mg ONCE ONE Administration Lactated Ringer's 1,000 mls @ 500 mls/hr 10/25/24 06:09 10/25/24 08:54 Lactated Ringers 1000 Ml IV 10/25/24 08:08 Infused .Q2H MATEUS Infusion Lactated Ringer's 1,000 mls @ 125 mls/hr 10/25/24 09:50 10/25/24 23:00 Lactated Ringers 1000 Ml IV Infused .Q8H MATEUS Infusion Acetaminophen 1,000 mg in 100 mls @ 400 mls/hr 10/25/24 11:55 10/25/24 13:35 Acetaminophen Inj IVPB Infused Q6H PRN Infusion Lactated Ringer's 1,000 mls @ 100 mls/hr 10/25/24 16:15 10/25/24 17:07 Lactated Ringers 1000 Ml IV Not Given .Q10H MATEUS Lorazepam 1 mg 10/25/24 09:53 10/25/24 09:59 Lorazepam 2 Mg/Ml Inj IVP 10/25/24 09:54 1 mg ONCE ONE Administration Naloxone HCl 1 mg 10/25/24 14:10 10/25/24 15:04 Naloxone 1 Mg/Ml Syringe IV 10/25/24 14:11 Not Given ONCE ONE Naloxone HCl 0.4 mg 10/25/24 14:14 10/25/24 15:05 Naloxone 0.4 Mg/Ml Inj IVP 10/25/24 14:15 Not Given ONCE ONE Ondansetron HCl 4 mg 10/25/24 06:08 10/25/24 06:28 Ondansetron 2 Mg/Ml Inj IVP 10/25/24 06:09 4 mg ONCE ONE Administration Piperacillin Sod/Tazobactam Sod 3.375 gm 10/25/24 14:06 10/25/24 14:15 Piperacillin/Tazobactam 3.375 Gm Inj IVPB 10/25/24 14:07 3.375 gm ONCE ONE Administration <Lotus Doll MD - Last Filed: 10/25/24 23:58> Generic Name Dose Route Start Last Admin Trade Name Freq PRN Reason Stop Dose Admin Buprenorphine/Naloxone 0.5 each 10/25/24 17:00 10/25/24 21:22 Buprenorphine-Nalox 8-2mg Film SUBLINGUAL 0.5 each QID MATEUS Administration Hydromorphone HCl 0.5 mg 10/25/24 11:55 10/25/24 22:11 Hydromorphone 0.5 Mg/0.5 Ml Inj IVP 0.5 mg Q2H PRN Administration Pain Lactated Ringer's 1,000 mls @ 125 mls/hr 10/25/24 16:58 10/25/24 18:48 Lactated Ringers 1000 Ml IV 125 mls/hr .Q8H MATEUS Administration Lactated Ringer's 500 mls @ 250 mls/hr 10/25/24 21:03 10/25/24 23:28 Lactated Ringers 500 Ml IV 250 mls/hr .Q2H PRN Administration for hypotension/narcotic needs Insulin Aspart 0 unit 10/25/24 17:30 10/25/24 21:13 Insulin Aspart 100 Unit/Ml SUBCUT Not Given ACHS [facility] Protocol Lamotrigine 200 mg 10/25/24 21:00 10/25/24 21:18 Lamotrigine 100 Mg Tablet PO 200 mg BID MATEUS Administration Lidocaine 1 patch 10/25/24 21:45 10/25/24 22:23 Lidocaine 5% Patch TRANSDERMA Not Given Q24H MATEUS Protocol Prazosin HCl 1 mg 10/25/24 21:00 10/25/24 21:19 Prazosin Hcl 1 Mg Capsule PO 1 mg HS MATEUS Administration Sodium Chloride 5 ml 10/25/24 11:55 10/25/24 22:12 Sodium Chloride 0.9 % (Flush) 10 Ml Syringe IVF 5 ml .FLUSH PRN Administration Discontinued Medications Generic Name Dose Route Start Last Admin Trade Name Freq PRN Reason Stop Dose Admin Buprenorphine/Naloxone 0.5 each 10/25/24 13:00 10/25/24 12:51 Buprenorphine-Nalox 8-2mg Film SUBLINGUAL 0.5 each QID MATEUS Administration Buprenorphine/Naloxone 0.5 each 10/25/24 13:00 10/25/24 12:55 Buprenorphine-Nalox 8-2mg Film SUBLINGUAL 10/25/24 13:01 0.5 each ONCE ONE Administration Hydromorphone HCl 0.5 mg 10/25/24 06:08 10/25/24 06:28 Hydromorphone 0.5 Mg/0.5 Ml Inj IVP 10/25/24 06:09 0.5 mg ONCE ONE Administration Hydromorphone HCl 0.5 mg 10/25/24 08:23 10/25/24 08:26 Hydromorphone 0.5 Mg/0.5 Ml Inj IVP 10/25/24 08:24 0.5 mg ONCE ONE Administration Lactated Ringer's 1,000 mls @ 500 mls/hr 10/25/24 06:09 10/25/24 08:54 Lactated Ringers 1000 Ml IV 10/25/24 08:08 Infused .Q2H MATEUS Infusion Lactated Ringer's 1,000 mls @ 125 mls/hr 10/25/24 09:50 10/25/24 23:00 Lactated Ringers 1000 Ml IV Infused .Q8H MATEUS Infusion Acetaminophen 1,000 mg in 100 mls @ 400 mls/hr 10/25/24 11:55 10/25/24 13:35 Acetaminophen Inj IVPB Infused Q6H PRN Infusion Lactated Ringer's 1,000 mls @ 100 mls/hr 10/25/24 16:15 10/25/24 17:07 Lactated Ringers 1000 Ml IV Not Given .Q10H MATEUS Lorazepam 1 mg 10/25/24 09:53 10/25/24 09:59 Lorazepam 2 Mg/Ml Inj IVP 10/25/24 09:54 1 mg ONCE ONE Administration Naloxone HCl 1 mg 10/25/24 14:10 10/25/24 15:04 Naloxone 1 Mg/Ml Syringe IV 10/25/24 14:11 Not Given ONCE ONE Naloxone HCl 0.4 mg 10/25/24 14:14 10/25/24 15:05 Naloxone 0.4 Mg/Ml Inj IVP 10/25/24 14:15 Not Given ONCE ONE Ondansetron HCl 4 mg 10/25/24 06:08 10/25/24 06:28 Ondansetron 2 Mg/Ml Inj IVP 10/25/24 06:09 4 mg ONCE ONE Administration Piperacillin Sod/Tazobactam Sod 3.375 gm 10/25/24 14:06 10/25/24 14:15 Piperacillin/Tazobactam 3.375 Gm Inj IVPB 10/25/24 14:07 3.375 gm ONCE ONE Administration <Dev Gibson, - Last Filed: 10/25/24 10:07> Medical Decision Making MDM Narrative Medical decision making narrative: Patient is a 63-year-old female signed out to me pending imaging results and lab work. Lab work returned showing a CRP of 2.7 and a repeat lactate is down to 2.0. Rest of her labs showed no concerning abnormalities. Urinalysis is still pending. Will keep her NPO at this time so I did start her on maintenance fluids. CT scan returned showing a small-bowel obstruction that is not appear severe as her previous 1. Did speak to the on-call general surgeon, Dr. Dhaliwal, who recommends admission. Dr. Rudd accepted for admission. Patient was given another dose of Dilaudid for her pain and Ativan for her anxiety. She does seem to have difficulty coping with pain and is on Suboxone with this bowel obstruction. I do not think narcotics overall are the best option for her at this time. <Dev Gibson DO - Last Filed: 10/25/24 10:07> Lab Data Lab results reviewed: Yes I reviewed the patient's lab results <Lotus Doll MD - Last Filed: 10/25/24 23:58> Lab results narrative: Mildly elevated lactate with elevated BUN suggestive of dehydration. No significant leukocytosis. Creatinine normal. Remainder of electrolytes fairly normal. Low protein, not surprising with her nutritional status in the last few days. No signs of pancreatitis. <Lotus Doll MD - Last Filed: 10/25/24 23:58> Labs: Lab Results 10/25/24 10/25/24 Range/Units 06:50 09:08 WBC 5.30 (4.50-11.00) K/uL RBC 4.60 (4.00-5.20) m/uL Hgb 12.6 (12.0-16.0) gm/dL Hct 38.5 (33.0-51.0) % MCV 84 (80-100) fL MCH 27 (26-34) pg MCHC 33 (32-36) gm/dL RDW Coeff of Monserrat 14.2 (11.5-15.5) % Plt Count 287 (140-440) K/uL Neut % (Auto) 62.2 (42.0-72.0) % Lymph % (Auto) 27.4 (20-44) % Lane % (Auto) 9.4 (0.0-11.0) % Eos % (Auto) 0.6 (0.0-7.0) % Baso % (Auto) 0.2 (0.0-3.0) % Neut # (Auto) 3.30 (1.7-7.0) K/uL Lymph # (Auto) 1.45 (0.90-2.90) K/uL Lane # (Auto) 0.50 (0.00-0.90) K/UL Eos # (Auto) 0.03 (0.00-0.50) K/uL Baso # (Auto) 0.01 (0.00-0.30) K/uL Abs Immat Gran (auto) 0.01 (0.00-0.30) K/uL Imm/Tot Granulo (auto) 0.2 % Sodium 135 (135-149) mmol/L Potassium 3.6 (3.6-5.1) mmol/L Chloride 103 (96-114) mmol/L Carbon Dioxide 24 (20-32) mmol/L Anion Gap 8 (7-15) mEq/L BUN 32 H (7-30) mg/dL Creatinine 0.9 (0.5-1.5) mg/dL Estimated Creat Clear 46.11 Estimated GFR 73 ml/min Glucose 105 (60-115) mg/dL Hemoglobin A1c 5.6 (0-5.6) % Lactate 2.2 H 2.0 H (0.5-1.9) mmol/L Calcium 9.1 (8.4-10.6) mg/dL Total Bilirubin 0.5 (0.1-1.5) mg/dL AST 19 (12-35) U/L ALT 14 (4-35) U/L Alkaline Phosphatase 72 (40-150) U/L C-Reactive Protein 2.7 H (0.5-1.0) mg/dL Total Protein 5.7 L (6.0-8.3) g/dL Albumin 3.4 (3.3-5.0) g/dL Lipase 11 L (23-300) U/L <Lotus Doll MD - Last Filed: 10/25/24 23:58> Lab Results 10/25/24 10/25/24 Range/Units 06:50 09:08 WBC 5.30 (4.50-11.00) K/uL RBC 4.60 (4.00-5.20) m/uL Hgb 12.6 (12.0-16.0) gm/dL Hct 38.5 (33.0-51.0) % MCV 84 (80-100) fL MCH 27 (26-34) pg MCHC 33 (32-36) gm/dL RDW Coeff of Monserrat 14.2 (11.5-15.5) % Plt Count 287 (140-440) K/uL Neut % (Auto) 62.2 (42.0-72.0) % Lymph % (Auto) 27.4 (20-44) % Lane % (Auto) 9.4 (0.0-11.0) % Eos % (Auto) 0.6 (0.0-7.0) % Baso % (Auto) 0.2 (0.0-3.0) % Neut # (Auto) 3.30 (1.7-7.0) K/uL Lymph # (Auto) 1.45 (0.90-2.90) K/uL Lane # (Auto) 0.50 (0.00-0.90) K/UL Eos # (Auto) 0.03 (0.00-0.50) K/uL Baso # (Auto) 0.01 (0.00-0.30) K/uL Abs Immat Gran (auto) 0.01 (0.00-0.30) K/uL Imm/Tot Granulo (auto) 0.2 % Sodium 135 (135-149) mmol/L Potassium 3.6 (3.6-5.1) mmol/L Chloride 103 (96-114) mmol/L Carbon Dioxide 24 (20-32) mmol/L Anion Gap 8 (7-15) mEq/L BUN 32 H (7-30) mg/dL Creatinine 0.9 (0.5-1.5) mg/dL Estimated Creat Clear 46.11 Estimated GFR 73 ml/min Glucose 105 (60-115) mg/dL Hemoglobin A1c 5.6 (0-5.6) % Lactate 2.2 H 2.0 H (0.5-1.9) mmol/L Calcium 9.1 (8.4-10.6) mg/dL Total Bilirubin 0.5 (0.1-1.5) mg/dL AST 19 (12-35) U/L ALT 14 (4-35) U/L Alkaline Phosphatase 72 (40-150) U/L C-Reactive Protein 2.7 H (0.5-1.0) mg/dL Total Protein 5.7 L (6.0-8.3) g/dL Albumin 3.4 (3.3-5.0) g/dL Lipase 11 L (23-300) U/L <Dev Gibson DO - Last Filed: 10/25/24 10:07> Imaging Data CT scan abdomen and pelvis: Attestation: I have reviewed the pertinent imaging results. <Dev Gibson DO - Last Filed: 10/25/24 10:07> My impression: Distended bowel suggestive of small-bowel obstruction <Lotus Doll MD - Last Filed: 10/25/24 23:58> Radiologist's impression: Small bowel obstruction. There is some bowel wall thickening just proximal to what appears to be the transition point. No definitive findings of a closed loop obstruction, although the bowel is very difficult to follow due to streak artifact from the spinal hardware. The degree of bowel distention is not quite as severe as 10/12/2024. No findings of definite ischemia or perforation. Please note that all CT scans at this facility use dose modulation, iterative reconstruction, and/or weight-based dosing when appropriate to reduce radiation dose to as low as reasonably achievable. Dictated by Citlaly Castaneda MD @ 10/25/2024 7:54:05 AM <Dev Gibson DO - Last Filed: 10/25/24 10:07> Discharge Plan Discharge Clinical Impression: Small bowel obstruction <Lotus Doll MD - Last Filed: 10/25/24 23:58> Patient Disposition: Admitted As Inpatient <Louts Doll MD - Last Filed: 10/25/24 23:58> Condition: Stable <Lotus Doll MD - Last Filed: 10/25/24 23:58>
[2024-10-25 06:59] LABS: Lactate Sepsis w/Reflex* 2.2 mmol/L (0.5-1.9)
[2024-10-25 07:00] LABS: Hematocrit* 38.5 % (33.0-51.0); Hemoglobin* 12.6 gm/dL (12.0-16.0); Immature Granulocytes Abs Auto 0.01 K/uL (0.00-0.30); Immature Granulocytes Pct Auto 0.2 %; Lymphocytes Absolute Auto 1.45 K/uL (0.90-2.90); Mean Corpuscular HGB Conc 33 gm/dL (32-36); Mean Corpuscular Hemoglobin 27 pg (26-34); Mean Corpuscular Volume 84 fL (80-100); RDW Coefficient of Variation % 14.2 % (11.5-15.5); Red Blood Count* 4.60 m/uL (4.00-5.20); White Blood Count* 5.30 K/uL (4.50-11.00)
[2024-10-25 07:05] LABS: Slide Review Reflex No
[2024-10-25 07:21] LABS: Albumin* 3.4 g/dL (3.3-5.0); Chloride* 103 mmol/L (96-114)
[2024-10-25 07:22] LABS: Potassium* 3.6 mmol/L (3.6-5.1); Sodium* 135 mmol/L (135-149)
[2024-10-25 07:24] LABS: Blood Urea Nitrogen* 32 mg/dL (7-30); Creatinine* 0.9 mg/dL (0.5-1.5); Est. Creatinine Clearance* 46.11; Estimated Glomerular Filt Rate 73 ml/min
[2024-10-25 07:25] LABS: Alanine Aminotransferase* 14 U/L (4-35); Alkaline Phosphatase* 72 U/L (40-150); Anion Gap 8 mEq/L (7-15); Aspartate Amino Transferase* 19 U/L (12-35); Bilirubin Total* 0.5 mg/dL (0.1-1.5); Calcium* 9.1 mg/dL (8.4-10.6); Carbon Dioxide* 24 mmol/L (20-32); Glucose* 105 mg/dL (60-115); Total Protein* 5.7 g/dL (6.0-8.3)
--- NOTE | 2024-10-25 08:38 | PM.GSCN ---
History of Present Illness Consult details Date Seen: 10/25/24 Consult date: 10/25/24 Narrative: The patient is a 63-year-old female with a history of anxiety and depression, chronic pain on Suboxone, multiple prior spine surgeries, and type 2 diabetes on Ozempic and metformin who presents with abdominal pain. She states that starting on 10/08 she had the sudden onset of severe abdominal pain. She came to the emergency department and had a workup which was unrevealing except she did have a lactate of 2.4. It was felt to be secondary to constipation. Her pain persisted and so she came back 10/12. CT showed a dilated small bowel, felt to be secondary to small-bowel obstruction without a transition point. She was also on Ozempic and does have a history of chronic constipation because the opioids and, therefore a Gastrografin enema and Gastrografin challenge were recommended to delineate the cause. She was transferred to [facility] because of her complexity of chronic pain and other issues. There, she was managed with a Gastrografin challenge as well as a Gastrografin enema on 10/18. Per the discharge summary she had persistent bowel dilatation and very slow passage of the Gastrografin challenge for several days. Discussion was had for PICC line and TPN as patient had very slow resolution of symptoms. She was seen by pain management because of significant opioid requirements as well as psychiatry secondary to anxiety. She was discharged home after passing a clamping trial on 10/20 and had several bowel movements. It was recommended she stop Ozempic at discharge. She states that since discharge she has continued to have diarrhea and pass gas. However she has been taking apple juice with MiraLax in it. She states that she initially felt okay when she got home but then again developed bloating and pain. This wraps around to her back. She denies nausea or vomiting. She states that she did vomit once previously. When asked what happened when they had clamping trials at the outside hospital or why it took so long to remove the NG tube, she states she was not sure. Prior to all of this, she would have a bowel movements every day or every other day but did have to take a stool softener. She recently started on Suboxone and is followed at a pain clinic. Past surgical history notable for multiple spinal surgeries with at least 1 anterior approach, prior open cholecystectomy, surgery for ectopic , laparoscopic appendectomy. She does not have a family history of colon cancer. She has a colonoscopy many years ago. She has not taken [employer] pick since advised to stop at discharge. She is accompanied today by her fiance. 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) ?M50.20 - Other cervical disc displacement, unspecified cervical region (ICD-10) Surgical History Status post open reduction and internal fixation (ORIF) of fracture ?Z98.890 - Other specified postprocedural states (ICD-10) ?Z87.81 - Personal history of (healed) traumatic fracture (ICD-10) S/P laparoscopic procedure ?Z98.890 - Other specified postprocedural states (ICD-10) S/P insertion of spinal cord stimulator ?Z96.89 - Presence of other specified functional implants (ICD-10) S/P lumbar fusion ?Z98.1 - Arthrodesis status (ICD-10) S/P cervical spinal fusion ?Z98.1 - Arthrodesis status (ICD-10) S/P bunionectomy ?Z98.890 - Other specified postprocedural states (ICD-10) History of tonsillectomy and adenoidectomy (01/17/10) ?Z90.89 - Acquired absence of other organs (ICD-10) History of laparoscopic appendectomy (05/14/12) ?Z90.49 - Acquired absence of other specified parts of digestive tract (ICD-10) History of cholecystectomy (01/17/10) ?Z90.49 - Acquired absence of other specified parts of digestive tract (ICD-10) History of appendectomy (06/30/12) ?Z90.49 - Acquired absence of other specified parts of digestive tract (ICD-10) Family History Mother Osteoporosis Social History Narrative: , currently engaged to be . On disability. 3 children. No alcohol. Non-smoker. No illicit drug use. What is your current living situation?: I presently have a place to live Problems where you live: no known problems Problems where you live details: na In the past 12 months, utilities in danger of being shut off: no In past 12 months, lack of transportation kept you from medical appts, meetings, work, or getting things needed for daily living: no In the past 12 mos, have been you worried that your food would run out before you had money to buy more?: never true In the past 12 mos, the food you bought just didn't last and you didn't have money to buy more?: never true Highest level of school completed/degree received: some college, no degree Smoking Status: Former smoker How often do you have a drink containing alcohol: never AUDIT-C Alcohol total score: 0 Non-prescribed substance use: denies use Caffeine: Yes (1 cup in am, 1 pop day) How often does anyone, including family, friends and others, physically hurt you: decline to answer How often does anyone, including family, friends and others, insult or talk down to you: decline to answer How often does anyone, including family, friends and others, threaten you with harm: decline to answer How often does anyone, including family, friends and others, scream or curse at you: decline to answer service: No Meds Home Medications and Allergies Home Medications ?Medication ?Instructions ?Recorded ?Confirmed ?Type lamotrigine 200 mg tablet 200 mg PO BID 08/17/21 10/25/24 History tizanidine 4 mg tablet 2 - 4 mg PO Q6H PRN 03/13/23 10/25/24 History blood-glucose meter #1 ea 05/19/23 08/09/24 Rx blood sugar diagnostic (Accu-Chek #100 ea 05/21/23 08/09/24 Rx Kaylee Plus test strips) bupropion HCl 300 mg 24 hr tablet, 300 mg PO DAILY 09/16/23 10/25/24 History extended release duloxetine 60 mg capsule,delayed 120 mg PO DAILY 09/16/23 10/25/24 History release (Cymbalta) omeprazole 40 mg capsule,delayed 40 mg PO DAILY #90 caps 12/30/23 10/25/24 Rx release lancets (Accu-Chek Softclix #300 ea 04/12/24 08/09/24 Rx Lancets) buprenorphine 8 mg-naloxone 2 mg 0.5 film sublingual QID chronic 05/18/24 10/25/24 History sublingual film pain trazodone 100 mg tablet 100 mg PO HS 06/02/24 10/25/24 History pramipexole 0.5 mg tablet 0.5 mg PO DAILY #90 tabs 10/07/24 10/25/24 Rx metformin 1,000 mg tablet 1,000 mg PO BIDWM 10/25/24 10/25/24 History prazosin 1 mg capsule 1 mg PO HS 10/25/24 10/25/24 History sennosides 8.6 mg-docusate sodium 1 - 4 tab-cap PO BID 10/25/24 10/25/24 History 50 mg tablet (Senna with Docusate Sodium) simvastatin 20 mg tablet 20 mg PO HS 10/25/24 10/25/24 History Allergies Allergy/AdvReac Type Severity Reaction Status Date / Time hydroxyzine Allergy Severe involuntary Verified 10/25/24 07:36 muscle movement venlafaxine Allergy Mild Rash, Verified 10/25/24 07:36 restless legs prochlorperazine (From Allergy Verified 10/25/24 07:36 Compazine) diphenhydramine AdvReac Mild Effects RLS Verified 10/25/24 07:36 Exam Narrative: Exam Narrative: General appearance: Alert, cooperative, and in no distress Eyes: PERRLA, eye lids clear, and sclera white HENT Head: Normocephalic Ears: External ears normal Pulmonary: Breathing nonlabored on room air Cardiovascular Heart: Regular rate Extremities: warm and well perfused Gastrointestinal Abdominal: Abdomen is distended. It is tense. She is mildly tender to palpation. No guarding or rebound. Right upper quadrant scar, midline scar noted extending from above to below the umbilicus. There is a paramedian scar on the left the patient states is from a prior ectopic surgery. She has a laparoscopic port site scar at the umbilicus. Musculoskeletal: Extremities: Upper: Both upper extremities have normal joint range of motion and intact strength. Lower: Both lower extremities have normal joint range of motion and intact strength. Skin: Normal skin color, texture, and turgor. Neurologic: No focal deficits Psychiatric: Alert, oriented, cooperative, normal affect. Const: Vital Signs, click to edit/add: Vital Signs - 24 hr 10/25/24 05:12 10/25/24 06:24 10/25/24 08:03 Temperature 98.0 F Pulse Rate [Right Pulse Oximeter] 100 90 Respiratory Rate 24 16 Blood Pressure [Ri ght Upper Arm] 114/85 102/68 Pulse Oximetry 99 99 98 Oxygen Delivery Me thod Room Air Room Air Results Labs Labs: White blood cell count is 5.3. Of note, it has been normal on her last 2 visits to the ER. Hemoglobin 12.6. Patient does have a history of anemia and prior hemoglobins have been less than 12 Electrolytes today are normal. BUN is elevated at 32. Lactate is elevated at 2.2. Recheck down to 2.0. CRP is elevated at 2.7, on 10/12 it was 3.8. Imaging Additional studies: CT abdomen and pelvis 10/08/2024: IMPRESSION: No acute intra-abdominal/pelvic abnormality. Moderate colonic stool burden. Dictated by Ellis Ruth MD @ 10/08/2024 7:52:[address] abdomen and pelvis 10/12/24: IMPRESSION: 1. Diffuse severe small bowel dilatation and associated moderate gastric distention represent a high-grade distal mechanical small bowel obstruction. The terminal ileum appears to be collapsed (series 2; image 91). A transition point is not clearly identified. No intramural hematoma, pneumatosis intestinalis, or portal venous gas to indicate superimposed ischemia at this time. Surgical consultation and close clinical follow-up are recommended. 2. Note is otherwise made of new right middle lobe and medial segment right lower lobe peribronchial ground-glass nodular opacities and bronchial wall thickening consistent with aspiration pneumonitis. Differential diagnostic considerations generally include nonspecific distal small airways disease. Gastric decompression is suggested. The study is performed without intravenous contrast. This limits the sensitivity of the exam for the detection bowel pathology, including bowel ischemia, focal lesions of the abdominopelvic viscera and vascular pathology including significant vascular stenosis, occlusion and dissection. Dictated by Dar Ayala MD @ 10/12/2024 7:51:[address] Scan Abdomen 10/25/24: IMPRESSION: Small bowel obstruction. There is some bowel wall thickening just proximal to what appears to be the transition point. No definitive findings of a closed loop obstruction, although the bowel is very difficult to follow due to streak artifact from the spinal hardware. The degree of bowel distention is not quite as severe as 10/12/2024. No findings of definite ischemia or perforation. Dictated by Citlaly Castaneda MD @ 10/25/2024 7:54:05 AM Progress Note:A&P Assessment and plan (1) Small bowel obstruction: Status: Acute (2) Depression: Status: Acute (3) Anxiety: Status: Acute (4) Chronic back pain: Status: Acute (5) Chronic narcotic use: Status: Acute Plan The patient is a 63-year-old female with a history of prior abdominal surgery and a small bowel obstruction which recurred or failed to resolve with conservative management. I reviewed her recent stay at [facility] and I reviewed her CT images myself and with the radiologist. He appears to have an area of concern in the mid abdomen posteriorly. This is likely related to adhesions from her prior spinal fusion. I recommended exploration. She is still having bowel movements, however given her imaging, her elevated lactate and her abdominal pain, I think it is warranted to explore. We discussed risks of surgery including bleeding, infection, injury to abdominal structures and anastomotic leak if bowel resection is necessary. We also discussed recovery. I discussed the case with the hospitalist. The patient is concerned about pain control postoperative. We do have notes from her Pain Service consult from her stay at [facility], however I think we have a good plan for postoperative pain management. We can also ask Anesthesia to perform a tap block. The patient signed informed consent is agreeable to proceed. We will plan on surgery today at [facility] OR availability. She does not have significant gastric distention on CT scan and therefore I will not place an NG preoperatively.
[2024-10-25 09:16] LABS: Lactate Sepsis 2 Hour 2.0 mmol/L (0.5-1.9)
[2024-10-25] MEDS: LACTATED RINGERS 1000 ML 1,000 ML 125 ML IV ×3 (09:52→18:48)
--- NOTE | 2024-10-25 10:43 | PC.NURSE ---
Report given to JENNA Portillo on M/S. All belongings sent with patient. All questitons answered. Patient transported to [facility] via wheelchair.
--- NOTE | 2024-10-25 11:53 | P.IMHP_ITS ---
Assessment and Plan Assessment and plan (1) Small bowel obstruction: Problem comment: -day of surgery 10/25/24 Dr. Dhaliwal, exploratory laparotomy and small-bowel resection -internal hernia; primary anastomosis Status: Acute (2) Chronic pain: Problem comment: Back and neck chronic stenosis Status: Acute (3) Buprenorphine dependence: Problem comment: (2) 8-2 films divided into 2 morning doses and to evening doses (4-1 QID) Status: Acute (4) Latent autoimmune diabetes in adults, managed as type 2: Problem comment: A1c pending, Accu-Cheks, sliding scale insulin. Metformin on hold. Status: Acute (5) Restless legs syndrome: Status: Acute Hospitalist- H&P: HPI History of Present Illness Date Seen: 10/25/24 Chief complaint: severe abdominal pain Narrative: ADMISSION HISTORY AND PHYSICAL - HOSPITALIST Chief Complaint: Abdominal pain HPI: 63-year-old with history of intermittent abdominal pain for the last 2+ weeks. When she presented to the ER on 10/08 a small-bowel obstruction was identified. She was transferred to the [facility], [place]. There she underwent an NG tube and conservative care for her small-bowel obstruction and ultimately was discharged without surgical intervention. She was only home for a few days and the pain returned and was more constant in nature. She presented to our ER this morning. Our general surgeon recommended surgical intervention. Prior to going to the OR she was brought to the floor for continued pain and preop management. She had some vomiting last night but this has resolved. No NG-tube has been placed. She does complain of distended abdomen acute, acute anorexia. She did have a little diarrhea prior to presentation to the ER this morning. But this did not seem to help pain. At a baseline she has chronic anxiety and chronic pain. She has had multiple spinal surgeries and is managed on Suboxone daily. She is also a type 2 diabetic and has GERD. She is a nonsmoker. There is no recreational drug use. It was her chronic pain that led to opioid dependence disorder and this ultimately was best managed by Suboxone and pain management. ER COURSE: Imaging, general surgery consultation, labs, fluids, antiemetics and analgesics CODE STATUS: FULL CODE PCP: Dr. Dickens EMERGENCY CONTACT PLAN: Fiancee/partner Jerry Caruso Rel To Pat Friend Cell I've updated the PFSH, medications and allergies in the Expanse tabs. INVESTIGATIONS: LABS/MICRO/ECG/IMAGING CBC unremarkable Elevated lactate, 2.2 CRP 2.7 Normal liver function Small bowel obstruction. There is some bowel wall thickening just proximal to what appears to be the transition point. No definitive findings of a closed loop obstruction, although the bowel is very difficult to follow due to streak artifact from the spinal hardware. The degree of bowel distention is not quite as severe as 10/12/2024. No findings of definite ischemia or perforation. REVIEW OF SYSTEMS: 12-point ROS completed with patient and negative unless otherwise stated in HPI or below. PHYSICAL EXAM: CONSTITUTIONAL: awakes, a little groggy from pain medication from the ED. GENERAL: Well-developed and above ideal body weight, in no respiratory distress. VITAL SIGNS: see record. HEENT: Sclerae are anicteric. No petechiae. CARDIAC: rhythm is regular. There is no S3 or rub. No harsh murmurs. Extremities show trace edema with symmetrical pulses. PULM: good air entry with no wheeze. NEURO: Speech is fluent. A brief neurologic exam is negative. SKIN: No rashes, petechiae, concerning changes PSYCHIATRIC: Euthymic. ADMIT TO MEDSURG: FLOOR CARE DVT: SCDs;ambulation GI: NPO, clears post surgery Time spent: Today I spent 75 minutes seeing the patient, discussing the patient with ER staff, reviewing Expanse and EPIC notes/diagnostics, discussing the care plan with our care time that includes social work, PT/OT, pharmacy, RT, assisted and documenting my impressions and plan in the medical record. MEDICAL NECESSITY FOR HOSPITALIZATION Anticipated midnights in the hospital: 2-3 Admitting diagnosis: Acute small-bowel obstruction, requiring surgical i ntervention Risk of morbidity and mortality: Moderate Acuity is characterized as high and reflected in: Chronic pain on Suboxone, chronic indolent course, weight loss This patient will require hospital services as outlined in the assessment and plan in order to stabilize and be safely discharged to a lower level of care. Because of the risk and acuity as described above, this patient cannot be managed at a lower level of care. LENGTH OF STAY: 2+ IP ? Anticipated LOS>2 midnights due to acuity of clinical presentation requiring inpatient level of care Medical Decision Making Medical Decision Making Has patient completed a Health Care Directive: Yes [facility] Medical History (Updated 10/25/24 @ 17:09 by Beth Rudd MD) Buprenorphine dependence ?F11.20 - Opioid dependence, uncomplicated (ICD-10) Chronic back pain ?M54.9 - Dorsalgia, unspecified (ICD-10) ?G89.29 - Other chronic pain (ICD-10) Chronic neck pain ?M54.2 - Cervicalgia (ICD-10) ?G89.29 - Other chronic pain (ICD-10) Anxiety (01/17/10) ?F41.9 - Anxiety disorder, unspecified (ICD-10) Depression (08/20/11) ?F32.A - Depression, unspecified (ICD-10) Hyperlipidemia ?E78.5 - Hyperlipidemia, unspecified (ICD-10) Latent autoimmune diabetes in adults, managed as type 2 ?E13.9 - Other specified diabetes mellitus without complications (ICD-10) Obstipation ?K59.00 - Constipation, unspecified (ICD-10) Pre-op examination ?Z01.818 - Encounter for other preprocedural examination (ICD-10) Anemia ?D64.9 - Anemia, unspecified (ICD-10) Constipation ?K59.00 - Constipation, unspecified (ICD-10) Seasonal allergies ?J30.2 - Other seasonal allergic rhinitis (ICD-10) Abnormal Pap smear of cervix ?R87.619 - Unspecified abnormal cytological findings in specimens from cervix uteri (ICD-10) Right knee pain ?M25.561 - Pain in right knee (ICD-10) Compartment syndrome of left lower extremity ?T79.A22A - Traumatic compartment syndrome of left lower extremity, initial encounter (ICD-10) Palpitations ?R00.2 - Palpitations (ICD-10) Syncope ?R55 - Syncope and collapse (ICD-10) 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) ?M50.20 - Other cervical disc displacement, unspecified cervical region (ICD- 10) Surgical History Status post open reduction and internal fixation (ORIF) of fracture ?Z98.890 - Other specified postprocedural states (ICD-10) ?Z87.81 - Personal history of (healed) traumatic fracture (ICD-10) S/P laparoscopic procedure ?Z98.890 - Other specified postprocedural states (ICD-10) S/P insertion of spinal cord stimulator ?Z96.89 - Presence of other specified functional implants (ICD-10) S/P lumbar fusion ?Z98.1 - Arthrodesis status (ICD-10) S/P cervical spinal fusion ?Z98.1 - Arthrodesis status (ICD-10) S/P bunionectomy ?Z98.890 - Other specified postprocedural states (ICD-10) History of tonsillectomy and adenoidectomy (01/17/10) ?Z90.89 - Acquired absence of other organs (ICD-10) History of laparoscopic appendectomy (05/14/12) ?Z90.49 - Acquired absence of other specified parts of digestive tract (ICD- 10) History of cholecystectomy (01/17/10) ?Z90.49 - Acquired absence of other specified parts of digestive tract (ICD- 10) History of appendectomy (06/30/12) ?Z90.49 - Acquired absence of other specified parts of digestive tract (ICD- 10) Family History Mother Osteoporosis Social History Narrative: , currently engaged to be . On disability. 3 children. No alcohol. Non-smoker. No illicit drug use. What is your current living situation?: I presently have a place to live Problems where you live: no known problems Problems where you live details: na In the past 12 months, utilities in danger of being shut off: no In past 12 months, lack of transportation kept you from medical appts, meetings, work, or getting things needed for daily living: no In the past 12 mos, have been you worried that your food would run out before you had money to buy more?: never true In the past 12 mos, the food you bought just didn't last and you didn't have money to buy more?: never true Highest level of school completed/degree received: some college, no degree Smoking Status: Former smoker How often do you have a drink containing alcohol: never AUDIT-C Alcohol total score: 0 Non-prescribed substance use: denies use Caffeine: Yes (1 cup in am, 1 pop day) How often does anyone, including family, friends and others, physically hurt you : decline to answer How often does anyone, including family, friends and others, insult or talk down to you: decline to answer How often does anyone, including family, friends and others, threaten you with harm: decline to answer How often does anyone, including family, friends and others, scream or curse at you: decline to answer service: No Meds Home Medications and Allergies Home Medications ?Medication ?Instructions ?Recorded ?Confirmed ?Type lamotrigine 200 mg tablet 200 mg PO BID 08/17/2110/25 History tizanidine 4 mg tablet 2 - 4 mg PO Q6H PRN 03/13/23 10/25/24 History blood-glucose meter #1 ea 05/19/23 08/09/24 Rx blood sugar diagnostic (Accu-Chek #100 ea 05/21/23 Rx Kaylee Plus test strips) bupropion HCl 300 mg 24 hr tablet, 300 mg PO DAILY 08/0310/25/24 History extended release duloxetine 60 mg capsule,delayed 120 mg PO DAILY 09/1510/25/24 History release (Cymbalta) omeprazole 40 mg capsule,delayed 40 mg PO DAILY #90 ca ps 12/30/23 10/25/24 Rx release lancets (Accu-Chek Softclix #300 ea 04/12/24 08/09/24 Rx Lancets) buprenorphine 8 mg-naloxone 2 mg 0.5 film sublingual Q ID chronic 05/18/24 10/25/24 History sublingual film pain trazodone 100 mg tablet 100 mg PO HS 06/02/24 History pramipexole 0.5 mg tablet 0.5 mg PO DAILY #90 tabs 10/25/24 Rx metformin 1,000 mg tablet 1,000 mg PO BIDWM 10/25/24 0 10/25/24 History prazosin 1 mg capsule 1 mg PO HS 10/25/24 10/25/24 History sennosides 8.6 mg-docusate sodium 1 - 4 tab-cap PO BID 10/25/24 10/25/24 History 50 mg tablet (Senna with Docusate Sodium) simvastatin 20 mg tablet 20 mg PO HS 10/25/24 5 History Allergies Allergy/AdvReac Type Severity Reaction Status Date / Time hydroxyzine Allergy Severe involuntary Verified 10/25/24 07:36 muscle movement venlafaxine Allergy Mild Rash, Verified 10/25/24 07:36 restless legs prochlorperazine (From Allergy Verified 10/25/24 07:36 Compazine) diphenhydramine AdvReac Mild Effects RLS Verified 10/25/24 07:36 Exam Const: Vital Signs, click to edit/add: Vital Signs - 24 hr 10/25/24 05:12 10/25/24 06:24 10/25/24 08:03 Temperature 98.0 F Pulse Rate Pulse Rate [Right Pulse Oximeter] 100 90 Respiratory Rate 24 16 Blood Pressure Blood Pressure [Le ft Arm] Blood Pressure [Ri ght Upper Arm] 114/85 102/68 Pulse Oximetry 99 99 98 Oxygen Delivery [facility] Room Air Room Air 10/25/24 08:03 10/25/24 08:05 10/25/24 08:15 Temperature Pulse Rate 98 91 86 Pulse Rate [Right Pulse Oximeter] Respiratory Rate Blood Pressure 99/71 Blood Pressure [Le ft Arm] Blood Pressure [Ri ght Upper Arm] Pulse Oximetry 98 99 100 Oxygen Delivery [facility] 10/25/24 08:30 10/25/24 08:32 10/25/24 08:45 Temperature Pulse Rate 82 81 81 Pulse Rate [Right Pulse Oximeter] Respiratory Rate 16 Blood Pressure 135/78 Blood Pressure [Le ft Arm] Blood Pressure [Ri ght Upper Arm] Pulse Oximetry 99 98 98 Oxygen Delivery [facility] 10/25/24 09:00 10/25/24 09:15 10/25/24 09:30 Temperature Pulse Rate 86 85 86 Pulse Rate [Right Pulse Oximeter] Respiratory Rate Blood Pressure Blood Pressure [Le ft Arm] Blood Pressure [Ri ght Upper Arm] Pulse Oximetry 98 96 97 Oxygen Delivery [facility] 10/25/24 09:32 10/25/24 09:45 10/25/24 10:00 Temperature Pulse Rate 83 90 87 Pulse Rate [Right Pulse Oximeter] Respiratory Rate 16 Blood Pressure 128/82 Blood Pressure [Le ft Arm] Blood Pressure [Ri ght Upper Arm] Pulse Oximetry 96 96 98 Oxygen Delivery [facility] 10/25/24 10:01 10/25/24 10:02 10/25/24 10:15 Temperature 97.7 F Pulse Rate 87 86 91 Pulse Rate [Right Pulse Oximeter] Respiratory Rate 16 Blood Pressure 130/86 Blood Pressure [Le ft Arm] Blood Pressure [Ri ght Upper Arm] Pulse Oximetry 98 97 98 Oxygen Delivery Me thod 10/25/24 10:32 10/25/24 11:01 10/25/24 11:16 Temperature 98.3 F Pulse Rate Pulse Rate [Right Pulse Oximeter] 106 H Respiratory Rate 16 16 Blood Pressure 129/84 Blood Pressure [Le ft Arm] 118/69 Blood Pressure [Ri ght Upper Arm] Pulse Oximetry 94 94 Oxygen Delivery Me thod Room Air Room Air Hospitalist - H&P: Result Labs Labs: Short CBC 10/25/24 Range/Units 06:50 WBC 5.30 (4.50-11.00) K/uL Hgb 12.6 (12.0-16.0) gm/dL Hct 38.5 (33.0-51.0) % Plt Count 287 (140-440) K/uL BMP 10/25/24 06:50 Sodium 135 Potassium 3.6 Chloride 103 Carbon Dioxide 24 BUN 32 H Creatinine 0.9 Glucose 105 Calcium 9.1 Liver Function 10/25/24 Range/Units 06:50 Total Bilirubin 0.5 (0.1-1.5) mg/dL AST 19 (12-35) U/L ALT 14 (4-35) U/L Alkaline Phosphatase 72 (40-150) U/L Albumin 3.4 (3.3-5.0) g/dL
[2024-10-25] MEDS: ACETAMINOPHEN INJ 1,000 MG/100 ML VIAL 400 MG IVPB (12:38)
[2024-10-25] MEDS: BUPRENORPHINE-NALOX 8-2MG FILM 0.5 EACH SUBLINGUAL ×4 (12:51→21:22)
--- NOTE | 2024-10-25 14:11 | W.PM.NB ---
Nerve Block Nerve Block Time Seen by Provider: 13:47 Date Seen: 10/25/24 Type of block requested by surgeon for post-operative analgesia: TAP Side: bilateral Time out performed: Yes Verification of patient name: Yes Verification of date of : Yes Site marking: site marked Name of person performing procedure: Gavin Continuous monitoring Was continuous monitoring of O2 sat, B/P, reservoir engineering consultant, recorded every 15 minutes?: Yes Procedure Checklist: sterile prep, needles and gloves Ultrasound guided. Images saved: Yes Medications given in 5ml increments after negative aspiration: Marcaine %: 0.25 mL: 30 Needle gauge: 20 and Exparel mL: 10 Patient tolerated procedure well: Yes Additional comments: Needle noted between internal oblique and transversus abdominus. Local spread visualized Block Charges Block Charge (with Pro Fee): TAP Bilateral Use of Ultrasound Machine for Block: Yes- US Guidance/pain block
[2024-10-25] MEDS: PIPERACILLIN/TAZOBACTAM 3.375 GM INJ IVPB (14:15)
--- NOTE | 2024-10-25 14:51 | REH.OT ---
OT orders recieved; pt in OR this afternoon for SBO. Will start evaluation tomorrow on 10/26/24 if pt is medically appropriate.
--- NOTE | 2024-10-25 15:38 | P.ANES_ITS ---
Anesthesia Charges Start Date/Time Anesthesia Start Date: 10/25/24 Anesthesia Start Time: 13:43 Stop Date/Time Anesthesia Stop Date: 10/25/24 Anesthesia Stop Time: 16:11 Summary Emergency: JALIL Coding CPT Codes CPT Codes: ANESTH SURG LOWER ABDOMEN - 54087 ([id number]) P2 - PATIENT W/MILD SYST DISEASE, QK - GYROSCOPIC ENGINEERING TECHNICIAN 2-4 CNCRNT ANES PROC, QX - ORDNANCE OFFICER SVC W/ MD MED DIRECTION Additional Codes: Summary - Emergency: JALIL ([id number])
--- NOTE | 2024-10-25 15:38 | W.ANESCHARGE ---
Anesthesia Charges Start Date/Time Anesthesia Start Date: 10/25/24 Anesthesia Start Time: 13:43 Stop Date/Time Anesthesia Stop Date: 10/25/24 Anesthesia Stop Time: 16:11 Summary Emergency: JALIL Coding CPT Codes CPT Codes: ANESTH SURG LOWER ABDOMEN - 71595 ([id number]) P2 - PATIENT W/MILD SYST DISEASE, QK - SOURCER 2-4 CNCRNT ANES PROC, QX - GORE CUTTER SVC W/ MD MED DIRECTION Additional Codes: Summary - Emergency: JALIL ([id number])
--- NOTE | 2024-10-25 16:10 | P.ANES_ITS ---
Anesthesia Charges Start Date/Time Anesthesia Start Date: 10/25/24 Anesthesia Start Time: 13:43 Stop Date/Time Anesthesia Stop Date: 10/25/24 Anesthesia Stop Time: 16:11 Summary Emergency: JALIL Coding CPT Codes CPT Codes: ANESTH SURG LOWER ABDOMEN - 45232 ([id number]) P2 - PATIENT W/MILD SYST DISEASE, QK - CURRICULUM ADVISORY TEACHER 2-4 CNCRNT ANES PROC, QX - GROOVING LATHE TENDER SVC W/ MD MED DIRECTION Additional Codes: Summary - Emergency: JALIL ([id number])
--- NOTE | 2024-10-25 16:10 | W.ANESCHARGE ---
Anesthesia Charges Start Date/Time Anesthesia Start Date: 10/25/24 Anesthesia Start Time: 13:43 Stop Date/Time Anesthesia Stop Date: 10/25/24 Anesthesia Stop Time: 16:11 Summary Emergency: JALIL Coding CPT Codes CPT Codes: ANESTH SURG LOWER ABDOMEN - 82909 ([id number]) P2 - PATIENT W/MILD SYST DISEASE, QK - BLOCKMAN 2-4 CNCRNT ANES PROC, QX - STATE SUPERINTENDENT OF SCHOOLS SVC W/ MD MED DIRECTION Additional Codes: Summary - Emergency: JALIL ([id number])
--- NOTE | 2024-10-25 16:19 | PM.GSPRC ---
Operative Note Date of procedure: 10/25/24 Pre-op diagnosis: Small bowel obstruction Post-op diagnosis: Small-bowel obstruction due to adhesions, causing internal hernia Type of Procedure: 1. Exploratory laparotomy 2. Small bowel resection Indications: The patient is a 63-year-old female who presented to the emergency department 2 weeks ago with abdominal pain. She had CT scan concerning for bowel obstruction. She was transferred to an outside hospital where she was managed conservatively with Gastrografin challenge in Gastrografin enema. She had eventual return of bowel function and was discharged home on 10/22. She felt okay the 1st day, however she began to have significant abdominal pain and bloating. She re-presented to the emergency department was found again to have CT evidence of bowel obstruction. Because of the persistent findings, I recommended exploration with possible bowel resection if necessary. The patient agreed to proceed. Procedure Description: After discussing the risks and benefits of the procedure, the patient signed informed consent.? The operative site was marked and the patient was brought to the operating room and placed on the operating table in supine position.? Care was taken to pad the patient's pressure points.?? The patient was then intubated by anesthesia.??TAP blocks were then performed by Anesthesia. Please see their note for details. The operative site was then prepped and draped in the usual sterile fashion.? A time-out was then performed. An incision was then created just to the left of midline, but medial to the patient's left paramedian scar. Dissection was taken down through subcutaneous fat using cautery. The fascia was incised in the midline. The peritoneum was then entered sharply using a Metzenbaum scissors. The fascia was then opened throughout the length of the incision. There were no adhesions to the midline. The patient did have some omental adhesions superiorly as well as on the left. These were taken down sharply using a scissor. An Ruddy wound retractor was then placed. The patient was noted immediately to have a firm palpable area of bowel in the posterior mid abdomen. An adhesion from an epiploic appendage from the transverse colon to a knuckle of small bowel was noted. The small bowel that was adhesed to the transverse colon was noted to be firm and edematous. Through this, an internal hernia was created and there was small bowel which had passed through. The small bowel which had passed through the hernia appeared normal in caliber. I began by attempting to divide the adhesion between the edematous small bowel and colon. The small bowel appeared to be strictured at the area of the adhesion and, therefore to avoid injuring the colon which appeared normal, I erred on the side of the small bowel. Taking down the densely-adherent adhesion actually created a full-thickness defect in the small bowel. This was oversewn to avoid any intra-abdominal spillage. I then was able to run the small bowel from the ileocecal valve to the ligament of Treitz. There were no other adhesions noted. While the small bowel immediately proximal to the area of adhesion was edematous and thickened, the small bowel became progressively less edematous proximally and was not significantly dilated. It did not appear as though there was any sort of injury to the colon, however, in the event that this area represented a diverticulum with a thickened wall, I elected to over-sew it. This was done with 3-0 Vicryl. I then turned my attention to the small bowel resection. I chose an area of small bowel distal to the stricture. A mesenteric window was created. Through this I passed a blue load ARTEM stapler. This was fired. A small amount of bleeding on the mesentery was oversewn resulting in hemostasis. I then identified a healthy area of small bowel proximal to the stricture. This was somewhat edematous, however I was able to identify an area that appeared healthy in for an anastomosis. Again a mesenteric window was created and a blue load ARTEM stapler was then passed. A small amount of bleeding on the staple line was oversewn. The mesentery was then divided between clamps and ligated with 2-0 silk suture. There was no bleeding noted on the mesentery. The specimen was then passed to pathology as small bowel with a stitch proximal. Approximately 30 cm were removed. The obstruction and adhesion was noted to be approximately 60 cm proximal to the ileocecal valve. I then brought the small bowel edges together and placed a stay stitch. Enterotomies were then created with cautery. A blue load ARTEM stapler was then passed through each of 3 enterotomies and a 60 cm anastomosis was then created. The staple line was examined. There was no bleeding. The common enterotomy was oversewn with 3-0 Vicryl interrupted suture in a Lembert fashion. The anastomosis appeared widely patent. A crotch stitch was placed. The mesenteric defect was closed with interrupted 3-0 Vicryl suture. The proximal staple line had a small amount of oozing. This was then oversewn with running 3-0 silk suture. Anastomosis was then placed back into the abdomen. The abdomen was irrigated with a L of warm saline. The wound protector was then removed and new gloves and new instruments were obtained for the fascial closure. Fascia was then closed with looped 0 Maxon in a running fashion. I excised the patient's prior scar that was to the left of the midline. I then was easily able to bring the skin together using 3-0 Vicryl dermal suture. The skin was then closed with 4-0 Monocryl running subcuticular suture. Steri-Strips and sterile dressing were applied. Instrument sponge and needle counts were correct the end of the case. The patient was then woken and transported to the recovery area in stable condition. ? The patient tolerated the procedure well. Findings: 1. Small bowel obstruction secondary to adhesions leading to internal hernia. 2. Edema and stricturing of the adhesed portion of small bowel 3. Herniated small bowel normal appearing. Anesthesia: GETA Surgeon: Pema Dhaliwal MD Estimated blood loss (mL): 25 Specimen: Other Additional Specimen Information: Small bowel, stitch proximal Condition: stable Disposition: PACU
[2024-10-25] MEDS: PRAZOSIN HCL 1 MG CAPSULE PO (21:19)
[2024-10-25] MEDS: LACTATED RINGERS 500 ML 500 ML 250 ML IV ×2 (21:32→23:28)
[2024-10-25] MEDS: SODIUM CHLORIDE 0.9 % (FLUSH) 10 ML SYRINGE 5 ML IVF (22:12)
--- NOTE | 2024-10-25 22:41 | PC.NURSE ---
Shift Note: Pt arrived from PACU, alert and able to verbalize her needs. Surgical dressing C,D,&I with active ice in place. Abdomen appears moderately distended. Bowel sounds present, pt denies flatus. She was advanced to clear liquids without difficulty. Pt beginning to c/o of increased pain. Steam Station Supervisor explained risks of giving scheduled suboxone at the same time as PRN dilaudid and the need to stagger the medications. Pt dissatisfied. Pt repositioned and moved to the bathroom, but has been unable to void post-up. BP's soft, 90's/60's and pt has been asymptomatic. Hospitalist updated on VS and pain control needs. Pt was given 250cc LR bolus and PRN Dilaudid. She is requesting to know how often she can be given the Dilaudid. Steam Station Supervisor explained nursing will be frequently checking in with her pain control and that various interventions can be implemented to keep her pain at a comfortable level.
[2024-10-26] VITALS (13 sets, daily range): BP systolic 86–105; BP diastolic 53–80; PULSE 81–90; RESP 10–16; TEMP 36.8–37.3; O2SAT 90–99; BMI 17.9
[2024-10-26] MEDS: LACTATED RINGERS 500 ML 500 ML 250 ML IV ×3 (01:40→13:45)
[2024-10-26] MEDS: SODIUM CHLORIDE 0.9 % (FLUSH) 10 ML SYRINGE 5 ML IVF ×4 (02:34→18:12)
--- NOTE | 2024-10-26 05:26 | PC.NURSE ---
end of shift: Pt is AOX4. VSS. Pt reports > 8/10 with pain assessments. Pt voided using bedside commode. Pt denies nausea. ABD dressing C/D/I. Active ice applied. Pt resting in bed; call light w/i reach.
[2024-10-26 06:50] LABS: Hematocrit* 29.9 % (33.0-51.0); Hemoglobin* 9.7 gm/dL (12.0-16.0); Immature Granulocytes Abs Auto 0.01 K/uL (0.00-0.30); Immature Granulocytes Pct Auto 0.2 %; Lymphocytes Absolute Auto 1.14 K/uL (0.90-2.90); Mean Corpuscular HGB Conc 32 gm/dL (32-36); Mean Corpuscular Hemoglobin 28 pg (26-34); Mean Corpuscular Volume 85 fL (80-100); RDW Coefficient of Variation % 14.5 % (11.5-15.5); Red Blood Count* 3.52 m/uL (4.00-5.20); White Blood Count* 5.68 K/uL (4.50-11.00)
[2024-10-26 06:51] LABS: Slide Review Reflex No
[2024-10-26 07:03] LABS: Chloride* 102 mmol/L (96-114); Sodium* 130 mmol/L (135-149)
[2024-10-26 07:04] LABS: Potassium* 3.8 mmol/L (3.6-5.1)
[2024-10-26 07:07] LABS: Anion Gap 4 mEq/L (7-15); Blood Urea Nitrogen* 24 mg/dL (7-30); Calcium* 7.8 mg/dL (8.4-10.6); Carbon Dioxide* 24 mmol/L (20-32); Creatinine* 0.7 mg/dL (0.5-1.5); Est. Creatinine Clearance* 51.27; Estimated Glomerular Filt Rate 98 ml/min; Glucose* 110 mg/dL (60-115)
--- NOTE | 2024-10-26 07:31 | PC.NURSE ---
Pt only voided 250 mL overnight. Bladder scan performed with PVR of 15 mL. Lung sounds noted to be clear to all lobes bilaterally with pt denying shortness of breath when asked. No edema noted. She has been on RA throughout the shift. Pt tolerating clear liquids and ice chips per current diet order. packaging sales consultant and day RN updated.
--- NOTE | 2024-10-26 07:37 | PC.NURSE ---
Rere Palomino updated last night regarding pt's continued hypotension noted after 2300 last night after this television writer and another RN took over care of this patient. PRN LR bolus' given throughout the shift for hypotension- see EMAR.
[2024-10-26] MEDS: LACTATED RINGERS 1000 ML 1,000 ML 125 ML IV ×2 (09:42→18:56)
[2024-10-26] MEDS: OMEPRAZOLE 20 MG CAPSULE DR 40 MG PO (09:46)
[2024-10-26] MEDS: DULOXETINE 30 MG CAPSULE DR 120 MG PO (09:46)
[2024-10-26] MEDS: BUPRENORPHINE-NALOX 8-2MG FILM 0.5 EACH SUBLINGUAL ×4 (09:47→21:07)
--- NOTE | 2024-10-26 10:05 | PM.IMPN1 ---
Assessment and Plan Assessment and plan (1) Small bowel obstruction: Problem comment: -post-op day#1. On clears. pain management is highest priority: dilaudid sparingly - oxy 10mg q4, Toradol, acetaminophen, Ativan sparingly -Dr. Dhaliwal, exploratory laparotomy and small-bowel resection -internal hernia; primary anastomosis Status: Acute (2) Chronic pain: Problem comment: Back and neck chronic stenosis continue baseline buprenorphine Status: Acute (3) Buprenorphine dependence: Problem comment: (2) 8-2 films divided into 2 morning doses and to evening doses (4-1 QID) Status: Acute (4) Latent autoimmune diabetes in adults, managed as type 2: Problem comment: A1C <6. Accu-Cheks, sliding scale insulin. Metformin on hold. Status: Acute (5) Restless legs syndrome: Problem comment: continue home meds Status: Acute Subjective Date Seen: 10/26/24 Interval history: Daily Progress Note - Hospital Medicine Day #: 2 POD #1, Exploratory laparotomy with small bowel resection CC: Pain, tenderness, anxiety 24 HOUR UPDATE: surgery was uncomplicated. her pain is causing significant anxiety. No vomiting, getting IV fluids. On clears; but not consuming much Notable Labs, Micro, Rads, Interventions: Vitals reveal likely a baseline low normal blood pressure. This morning is 99/60. Pulse is in 90s. Respiratory rate has been 10-12, however she is responsive and without respiratory compromise. Pulse ox is mid 90s on room air WBC count is normal. Hemoglobin dropped from preop likely about 11 down to 9.7. Platelets are normal. Sodium is up to 130, renal function and other electrolytes are okay. A1c is 5.6 Objective: crying, grimacing. Vitals: see above Lungs: Clear. Abdomen: distended; examined with gen surg bedside Cardiac: S1S2. Disposition/Potential discharge - Home with partner 2-3days Today I spent 50minutes seeing the patient, reviewing Expanse and EPIC notes/diagnostics, discussing the care plan with our care time that includes social work, PT/OT, pharmacy, RT, senior care and documenting my impressions and plan in the medical record. Exam Const: Vital Signs, click to edit/add: Vital Signs - 24 hr 10/25/24 10:15 10/25/24 10:32 10/25/24 11:01 Temperature 98.3 F Pulse Rate 91 Pulse Rate [Right Pulse Oximeter] 106 H Respiratory Rate 16 Blood Pressure 129/84 Blood Pressure [Le ft Arm] 118/69 Blood Pressure [Ri ght Arm] Pulse Oximetry 98 94 Oxygen Delivery Me thod Room Air Oxygen Flow Rate 10/25/24 11:16 10/25/24 13:00 10/25/24 13:44 Temperature Pulse Rate 62 Pulse Rate [Right Pulse Oximeter] Respiratory Rate 16 Blood Pressure Blood Pressure [Le ft Arm] Blood Pressure [Ri ght Arm] Pulse Oximetry 94 95 Oxygen Delivery Me thod Room Air Oxygen Flow Rate 10/25/24 13:44 10/25/24 15:00 10/25/24 16:06 Temperature 98.1 F Pulse Rate 94 Pulse Rate [Right Pulse Oximeter] 92 Respiratory Rate 12 10 L Blood Pressure 102/68 Blood Pressure [Le ft Arm] Blood Pressure [Ri ght Arm] Pulse Oximetry 95 99 Oxygen Delivery Me thod Room Air Room Air Oxygen Flow Rate 10/25/24 16:10 10/25/24 16:15 10/25/24 16:20 Temperature Pulse Rate 90 90 91 Pulse Rate [Right Pulse Oximeter] Respiratory Rate 12 16 10 L Blood Pressure 99/68 105/71 107/71 Blood Pressure [Le ft Arm] Blood Pressure [Ri ght Arm] Pulse Oximetry 94 91 95 Oxygen Delivery Me thod Nasal Cannula Oxygen Flow Rate 5 10/25/24 16:25 10/25/24 16:30 10/25/24 16:35 Temperature Pulse Rate 92 90 92 Pulse Rate [Right Pulse Oximeter] Respiratory Rate 11 L 10 L 11 L Blood Pressure 107/73 110/80 106/66 Blood Pressure [Le ft Arm] Blood Pressure [Ri ght Arm] Pulse Oximetry 95 99 95 Oxygen Delivery Me thod Room Air Oxygen Flow Rate 3 10/25/24 16:45 10/25/24 17:00 10/25/24 17:15 Temperature 97.4 F L 98.2 F Pulse Rate Pulse Rate [Right Pulse Oximeter] 92 98 95 Respiratory Rate 12 12 12 Blood Pressure Blood Pressure [Le ft Arm] Blood Pressure [Ri ght Arm] 105/71 98/69 101/67 Pulse Oximetry 98 91 98 Oxygen Delivery Me thod Room Air Room Air Room Air Oxygen Flow Rate 10/25/24 17:30 10/25/24 17:45 10/25/24 18:15 Temperature 98.3 F Pulse Rate Pulse Rate [Right Pulse Oximeter] 96 98 91 Respiratory Rate 12 12 12 Blood Pressure Blood Pressure [Le ft Arm] Blood Pressure [Ri ght Arm] 106/70 102/69 103/67 Pulse Oximetry 98 96 96 Oxygen Delivery Me thod Room Air Room Air Room Air Oxygen Flow Rate 10/25/24 18:45 10/25/24 19:45 10/25/24 19:45 Temperature 98.6 F Pulse Rate Pulse Rate [Right Pulse Oximeter] 88 101 H 90 Respiratory Rate 12 12 12 Blood Pressure Blood Pressure [Le ft Arm] Blood Pressure [Ri ght Arm] 104/64 85/55 L 102/59 L Pulse Oximetry 95 98 91 Oxygen Delivery Me thod Room Air Room Air Room Air Oxygen Flow Rate 10/25/24 20:45 10/25/24 22:31 10/25/24 23:00 Temperature 98.6 F Pulse Rate Pulse Rate [Right Pulse Oximeter] 91 93 Respiratory Rate 12 12 Blood Pressure Blood Pressure [Le ft Arm] Blood Pressure [Ri ght Arm] 96/52 L 93/58 L Pulse Oximetry 94 96 95 Oxygen Delivery Me thod Room Air Room Air Oxygen Flow Rate 10/25/24 23:00 10/25/24 23:25 10/25/24 23:25 Temperature 98.7 F Pulse Rate 97 Pulse Rate [Right Pulse Oximeter] 98 98 Respiratory Rate 10 L 10 L Blood Pressure Blood Pressure [Le ft Arm] Blood Pressure [Ri ght Arm] 82/52 L Pulse Oximetry 95 Oxygen Delivery Me thod Room Air Oxygen Flow Rate 10/25/24 23:25 10/26/24 01:30 10/26/24 03:00 Temperature 98.2 F Pulse Rate Pulse Rate [Right Pulse Oximeter] 90 Respiratory Rate 10 L 10 L Blood Pressure Blood Pressure [Le ft Arm] Blood Pressure [Ri ght Arm] 91/57 L 93/59 L Pulse Oximetry 95 94 Oxygen Delivery Me thod Room Air Room Air Oxygen Flow Rate 10/26/24 04:34 Temperature Pulse Rate Pulse Rate [Right Pulse Oximeter] Respiratory Rate Blood Pressure Blood Pressure [Le ft Arm] Blood Pressure [Ri ght Arm] 99/60 Pulse Oximetry Oxygen Delivery Me thod Oxygen Flow Rate Labs Labs: Laboratory Results - last 24 hr 10/25/24 10/25/2410/26/25 06:50 17:06 05:55 WBC 5.68 RBC 3.52 L Hgb 9.7 L Hct 29.9 L MCV 85 MCH 28 MCHC 32 RDW Coeff of [place] 14.5 Plt Count 228 Neut % (Auto) 73.0 H Lymph % (Auto) 20.1 [place] % (Auto) 5.8 Eos % (Auto) 0.7 Baso % (Auto) 0.2 Neut # (Auto) 4.10 Lymph # (Auto) 1.14 [place] # (Auto) 0.30 Eos # (Auto) 0.04 Baso # (Auto) 0.01 Abs Immat Gran (auto) 0.01 Imm/Tot Granulo (auto) 0.2 Sodium 130 L Potassium 3.8 Chloride 102 Carbon Dioxide 24 Anion Gap 4 L BUN 24 Creatinine 0.7 Estimated Creat Clear 51.27 Estimated GFR 98 Glucose 110 Hemoglobin A1c 5.6 Calcium 7.8 L Lab Acknowledgement Test Added
--- NOTE | 2024-10-26 10:07 | PM.GSPN ---
Subjective Subjective Date Seen: 10/26/24 Interval history: This morning Ramona complains of pain all over. Denies nausea. Overnight she did have some low blood pressure and was bolused 1 L. Exam Narrative: Exam Narrative: General: Patient is mildly anxious in bed Respiratory: Breathing is nonlabored on room air CV: Regular rate Abdomen: Dressing is clean. Abdomen is mildly distended. Const: Vital Signs, click to edit/add: Vital Signs - 24 hr 10/25/24 10:15 10/25/24 10:32 10/25/24 11:01 Temperature 98.3 F Pulse Rate 91 Pulse Rate [Right Pulse Oximeter] 106 H Respiratory Rate 16 Blood Pressure 129/84 Blood Pressure [Le ft Arm] 118/69 Blood Pressure [Ri ght Arm] Pulse Oximetry 98 94 Oxygen Delivery Me thod Room Air Oxygen Flow Rate 10/25/24 11:16 10/25/24 13:00 10/25/24 13:44 Temperature Pulse Rate 62 Pulse Rate [Right Pulse Oximeter] Respiratory Rate 16 Blood Pressure Blood Pressure [Le ft Arm] Blood Pressure [Ri ght Arm] Pulse Oximetry 94 95 Oxygen Delivery Me thod Room Air Oxygen Flow Rate 10/25/24 13:44 10/25/24 15:00 10/25/24 16:06 Temperature 98.1 F Pulse Rate 94 Pulse Rate [Right Pulse Oximeter] 92 Respiratory Rate 12 10 L Blood Pressure 102/68 Blood Pressure [Le ft Arm] Blood Pressure [Ri ght Arm] Pulse Oximetry 95 99 Oxygen Delivery Me thod Room Air Room Air Oxygen Flow Rate 10/25/24 16:10 10/25/24 16:15 10/25/24 16:20 Temperature Pulse Rate 90 90 91 Pulse Rate [Right Pulse Oximeter] Respiratory Rate 12 16 10 L Blood Pressure 99/68 105/71 107/71 Blood Pressure [Le ft Arm] Blood Pressure [Ri ght Arm] Pulse Oximetry 94 91 95 Oxygen Delivery Me thod Nasal Cannula Oxygen Flow Rate 5 10/25/24 16:25 10/25/24 16:30 10/25/24 16:35 Temperature Pulse Rate 92 90 92 Pulse Rate [Right Pulse Oximeter] Respiratory Rate 11 L 10 L 11 L Blood Pressure 107/73 110/80 106/66 Blood Pressure [Le ft Arm] Blood Pressure [Ri ght Arm] Pulse Oximetry 95 99 95 Oxygen Delivery Me thod Room Air Oxygen Flow Rate 3 10/25/24 16:45 10/25/24 17:00 10/25/24 17:15 Temperature 97.4 F L 98.2 F Pulse Rate Pulse Rate [Right Pulse Oximeter] 92 98 95 Respiratory Rate 12 12 12 Blood Pressure Blood Pressure [Le ft Arm] Blood Pressure [Ri ght Arm] 105/71 98/69 101/67 Pulse Oximetry 98 91 98 Oxygen Delivery Me thod Room Air Room Air Room Air Oxygen Flow Rate 10/25/24 17:30 10/25/24 17:45 10/25/24 18:15 Temperature 98.3 F Pulse Rate Pulse Rate [Right Pulse Oximeter] 96 98 91 Respiratory Rate 12 12 12 Blood Pressure Blood Pressure [Le ft Arm] Blood Pressure [Ri ght Arm] 106/70 102/69 103/67 Pulse Oximetry 98 96 96 Oxygen Delivery Me thod Room Air Room Air Room Air Oxygen Flow Rate 10/25/24 18:45 10/25/24 19:45 10/25/24 19:45 Temperature 98.6 F Pulse Rate Pulse Rate [Right Pulse Oximeter] 88 101 H 90 Respiratory Rate 12 12 12 Blood Pressure Blood Pressure [Le ft Arm] Blood Pressure [Ri ght Arm] 104/64 85/55 L 102/59 L Pulse Oximetry 95 98 91 Oxygen Delivery Me thod Room Air Room Air Room Air Oxygen Flow Rate 10/25/24 20:45 10/25/24 22:31 10/25/24 23:00 Temperature 98.6 F Pulse Rate Pulse Rate [Right Pulse Oximeter] 91 93 Respiratory Rate 12 12 Blood Pressure Blood Pressure [Le ft Arm] Blood Pressure [Ri ght Arm] 96/52 L 93/58 L Pulse Oximetry 94 96 95 Oxygen Delivery Me thod Room Air Room Air Oxygen Flow Rate 10/25/24 23:00 10/25/24 23:25 10/25/24 23:25 Temperature 98.7 F Pulse Rate 97 Pulse Rate [Right Pulse Oximeter] 98 98 Respiratory Rate 10 L 10 L Blood Pressure Blood Pressure [Le ft Arm] Blood Pressure [Ri ght Arm] 82/52 L Pulse Oximetry 95 Oxygen Delivery Me thod Room Air Oxygen Flow Rate 10/25/24 23:25 10/26/24 01:30 10/26/24 03:00 Temperature 98.2 F Pulse Rate Pulse Rate [Right Pulse Oximeter] 90 Respiratory Rate 10 L 10 L Blood Pressure Blood Pressure [Le ft Arm] Blood Pressure [Ri ght Arm] 91/57 L 93/59 L Pulse Oximetry 95 94 Oxygen Delivery Me thod Room Air Room Air Oxygen Flow Rate 10/26/24 04:34 Temperature Pulse Rate Pulse Rate [Right Pulse Oximeter] Respiratory Rate Blood Pressure Blood Pressure [Le ft Arm] Blood Pressure [Ri ght Arm] 99/60 Pulse Oximetry Oxygen Delivery Me thod Oxygen Flow Rate Labs/Imaging Labs Labs: White blood cell count 5.6 Hemoglobin 9.7 from 12.6 preop Sodium 130 from 03/11 5 yesterday Progress Note:A&P Assessment and plan (1) Status post laparotomy with lysis of adhesions: Status: Acute (2) Postoperative ileus: Status: Acute (3) Hyponatremia: Status: Acute (4) Buprenorphine dependence: Status: Acute (5) Chronic pain: Status: Acute (6) Latent autoimmune diabetes in adults, managed as type 2: Status: Acute Plan The patient is a 63-year-old female who is postop day 1 status post laparotomy, lysis of adhesions and small-bowel resection for small-bowel obstruction and internal hernia -sips of clears okay. Encourage patient to go slowly. She will likely have a prolonged ileus secondary to surgery and her chronic opioid use. If she develops nausea she should be made NPO. Otherwise necessary oral meds are okay. -noted to have anemia. This is likely a combination of chronic anemia, dilution and acute blood loss. Baseline hemoglobin appears to be around 11 and was likely concentrated on admission. Recommend rechecking hemoglobin at noon. If stable okay for Toradol -chronic pain, on Suboxone. Management per hospitalist. She is getting a combination approach to pain management. If hemoglobin stable, agree with Toradol. Could also try scheduling IV Tylenol as oral Tylenol may not be as well absorbed with an ileus. -recommended ambulation to the patient. If hemoglobin is stable she could start Lovenox. -hyponatremia - management per hospitalist
[2024-10-26 12:03] LABS: Hemoglobin* 9.9 gm/dL (12.0-16.0)
[2024-10-26] MEDS: ACETAMINOPHEN INJ 1,000 MG/100 ML VIAL 400 MG IVPB ×2 (13:26→22:21)
--- NOTE | 2024-10-26 15:07 | PC.SOCIAL ---
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 Per the provider on duty, there are no social work needs at this time. Social work to follow-up as needed.
--- NOTE | 2024-10-26 19:36 | PC.NURSE ---
End of shift [id number] - Pt alert, oriented, cooperative. Up with standby assistance and tolerating RA and clear liquid diet per MD. Pt noted to be tearful at start of shift, reported pain in abdomen as 10/10 and stated it was more severe than before. RN provided emotional support, MD aware and orders given. Pt mood appeared to improve with updated pain medication plan. Pt walked in halls during shift with staff accompaniment. Dressing CDI. Pt denied n/v, SOB, dizziness/lightheadedness. BP noted to be soft, given medication per MAR with improvement noted. Pt appears to be resting comfortably at end of shift with call light within reach.
[2024-10-26] MEDS: PRAMIPEXOLE 0.5 MG TABLET PO (21:07)
[2024-10-26] MEDS: LIDOCAINE 5% PATCH 1 PATCH TRANSDERMA (22:11)
[2024-10-26] MEDS: PRAZOSIN HCL 1 MG CAPSULE PO (22:22)
[2024-10-27] VITALS (7 sets, daily range): BP systolic 81–128; BP diastolic 52–80; PULSE 81–99; RESP 14–16; TEMP 36.4–37.1; O2SAT 94–98
[2024-10-27] MEDS: LACTATED RINGERS 1000 ML 1,000 ML 125 ML IV ×3 (00:41→23:22)
[2024-10-27 06:32] LABS: Hematocrit* 25.4 % (33.0-51.0); Hemoglobin* 8.3 gm/dL (12.0-16.0); Mean Corpuscular HGB Conc 33 gm/dL (32-36); Mean Corpuscular Hemoglobin 28 pg (26-34); Mean Corpuscular Volume 86 fL (80-100); Red Blood Count* 2.96 m/uL (4.00-5.20); White Blood Count* 5.08 K/uL (4.50-11.00)
[2024-10-27 06:38] LABS: Slide Review Reflex No
[2024-10-27 06:43] LABS: Albumin* 2.1 g/dL (3.3-5.0); Chloride* 107 mmol/L (96-114)
[2024-10-27 06:44] LABS: Potassium* 3.8 mmol/L (3.6-5.1); Sodium* 134 mmol/L (135-149)
[2024-10-27 06:46] LABS: Alanine Aminotransferase* 8 U/L (4-35); Alkaline Phosphatase* 56 U/L (40-150); Anion Gap 1 mEq/L (7-15); Aspartate Amino Transferase* 13 U/L (12-35); Blood Urea Nitrogen* 14 mg/dL (7-30); Carbon Dioxide* 26 mmol/L (20-32); Creatinine* 0.6 mg/dL (0.5-1.5); Est. Creatinine Clearance* 51.27; Estimated Glomerular Filt Rate 102 ml/min; Total Protein* 3.9 g/dL (6.0-8.3)
[2024-10-27 06:47] LABS: Calcium* 7.6 mg/dL (8.4-10.6); Glucose* 89 mg/dL (60-115)
[2024-10-27 07:02] LABS: Bilirubin Total* < 0.1 mg/dL (0.1-1.5)
[2024-10-27] MEDS: OMEPRAZOLE 20 MG CAPSULE DR 40 MG PO (09:17)
[2024-10-27] MEDS: DULOXETINE 30 MG CAPSULE DR 120 MG PO (09:19)
[2024-10-27] MEDS: BUPRENORPHINE-NALOX 8-2MG FILM 0.5 EACH SUBLINGUAL ×4 (09:20→20:34)
--- NOTE | 2024-10-27 10:12 | PM.GSPN ---
Subjective Subjective Date Seen: 10/27/24 Interval history: Blood pressure has been low, in the high 80s and low 90s systolic. Pulse has remained in the 80s and 90s at her baseline. She is feeling much better today. Her pain is better controlled. She had a large bowel movement and is passing gas. She is hoping to eat a bit more today. She has been up walking. Exam Narrative: Exam Narrative: General: Alert and oriented, no acute distress CV: Regular rate Respiratory: Breathing is nonlabored on room air Abdomen: distended but appropriately tender for the postoperative state. She does have bowel sounds on auscultation. Mild blood staining on a few of the Steri-Strips. no erythema. Const: Vital Signs, click to edit/add: Vital Signs - 24 hr 10/26/24 11:00 10/26/24 12:00 10/26/24 13:00 Temperature Pulse Rate Pulse Rate [Left P ulse Oximeter] Pulse Rate [Right Pulse Oximeter] 84 Respiratory Rate 16 Blood Pressure [Ri ght Arm] 89/54 L 102/80 86/53 L Pulse Oximetry 96 Oxygen Delivery Me thod Room Air 10/26/24 15:00 10/26/24 15:00 10/26/24 15:00 Temperature Pulse Rate 83 Pulse Rate [Left P ulse Oximeter] Pulse Rate [Right Pulse Oximeter] Respiratory Rate Blood Pressure [Ri ght Arm] Pulse Oximetry 96 96 Oxygen Delivery Me thod Room Air 10/26/24 15:00 10/26/24 19:50 10/26/24 22:10 Temperature 98.6 F 99 F 99.2 F Pulse Rate Pulse Rate [Left P ulse Oximeter] 88 88 Pulse Rate [Right Pulse Oximeter] 81 Respiratory Rate 16 16 16 Blood Pressure [Ri ght Arm] 105/68 97/62 91/59 L Pulse Oximetry 99 94 90 Oxygen Delivery Me thod Room Air Room Air Room Air 10/26/24 22:42 10/26/24 22:43 10/26/24 22:52 Temperature Pulse Rate 86 Pulse Rate [Left P ulse Oximeter] Pulse Rate [Right Pulse Oximeter] Respiratory Rate 16 Blood Pressure [Ri ght Arm] Pulse Oximetry 96 94 Oxygen Delivery Me thod Room Air 10/27/24 02:30 10/27/24 07:00 10/27/24 07:00 Temperature 98.4 F Pulse Rate 81 Pulse Rate [Left P ulse Oximeter] 83 Pulse Rate [Right Pulse Oximeter] Respiratory Rate 14 Blood Pressure [Ri ght Arm] 81/52 L 97/65 Pulse Oximetry 95 Oxygen Delivery Me thod Room Air 10/27/24 07:00 10/27/24 07:00 10/27/24 07:40 Temperature 97.8 F Pulse Rate Pulse Rate [Left P ulse Oximeter] 82 Pulse Rate [Right Pulse Oximeter] Respiratory Rate 16 Blood Pressure [Ri ght Arm] 92/61 Pulse Oximetry 98 98 98 Oxygen Delivery Me thod Room Air Room Air Labs/Imaging Labs Labs: White blood cell count remains normal. Hemoglobin is 8.3 from 9.7. Sodium improved to 134 Albumin 2.1 Total protein 3.9 Progress Note:A&P Assessment and plan (1) Anemia: Status: Acute (2) Hyponatremia: Status: Acute (3) Postoperative ileus: Status: Acute (4) Status post laparotomy with lysis of adhesions: Status: Acute (5) Buprenorphine dependence: Status: Acute (6) Chronic pain: Status: Acute (7) Latent autoimmune diabetes in adults, managed as type 2: Status: Acute Plan The patient is a 63-year-old female who is postop day 2 status post exploratory laparotomy and small-bowel resection for bowel obstruction. -blood pressures have been somewhat low but she is not tachycardic. BUN creatinine ratio has improved as well indicating adequate intravascular volume. Continue to monitor urine output. -hemoglobin is lower today, 8.3 from 9.9. Hold Toradol and Lovenox. If patient is tachycardic, recheck hemoglobin later today, otherwise continue to monitor clinically and recheck tomorrow. Could still be some component of dilution as she is volume up with I/Os. - Gradual advancement of diet. Patient knows to go slow given her distension though she does appear to have adequate antegrade bowel function. -encourage IS and ambulation. -pain control per hospitalist.
--- NOTE | 2024-10-27 15:00 | P.IMPN_ITS ---
Assessment and Plan Assessment and plan (1) Small bowel obstruction: Problem comment: -post-op day#1. On clears. pain management is highest priority: dilaudid sparingly - oxy 10mg q4, Toradol, acetaminophen, Ativan sparingly -Dr. Dhaliwal, exploratory laparotomy and small-bowel resection -internal hernia; primary anastomosis Status: Acute (2) Status post laparotomy with lysis of adhesions: Problem comment: Small bowel resection for small bowel obstruction. Status: Acute (3) Anemia: Problem comment: Acute blood loss anemia on top of chronic anemia Status: Acute (4) Postoperative ileus: Status: Acute (5) Buprenorphine dependence: Problem comment: (2) 8-2 films divided into 2 morning doses and to evening doses (4-1 QID) Status: Acute (6) Chronic pain: Problem comment: Back and neck chronic stenosis continue baseline buprenorphine Status: Acute (7) Latent autoimmune diabetes in adults, managed as type 2: Problem comment: A1C <6. Accu-Cheks, sliding scale insulin. Metformin on hold. Status: Acute Subjective Date Seen: 10/27/24 Interval history: Daily Progress Note - Hospital Medicine Day #: 3 POD #2, Exploratory laparotomy with small bowel resection CC: Pain, tenderness, anxiety 24 HOUR UPDATE: surgery was uncomplicated. her pain is improved. she is hungry this morning. she has passed a bowel movement. Notable Labs, Micro, Rads, Interventions: Vitals reveal likely a baseline low normal blood pressure. This morning is 99/60. Pulse is in 90s. Respiratory rate has been 10-12, however she is responsive and without respiratory compromise. Pulse ox is mid 90s on room air WBC count is normal. Hemoglobin dropped from preop likely about 11 down to 8.3. Platelets are normal. Sodium is up to 134, renal function and other electrolytes are okay. A1c is 5.6 Objective: smiling; more comfortable today Vitals: see above Lungs: Clear. Abdomen: distended but less than yesterday Cardiac: S1S2. Disposition/Potential discharge - Home with partner 2-3days Today I spent 50minutes seeing the patient, reviewing Expanse and EPIC notes/diagnostics, discussing the care plan with our care time that includes social work, PT/OT, pharmacy, RT, senior care and documenting my impressions and plan in the medical record. Exam Const: Vital Signs, click to edit/add: Vital Signs - 24 hr 10/26/24 19:50 10/26/24 22:10 10/26/24 22:42 Temperature 99 F 99.2 F Pulse Rate 86 Pulse Rate [Left P ulse Oximeter] 88 88 Respiratory Rate 16 16 Blood Pressure [Ri ght Arm] 97/62 91/59 L Pulse Oximetry 94 90 Oxygen Delivery Me thod Room Air Room Air 10/26/24 22:43 10/26/24 22:52 10/27/24 02:30 Temperature 98.4 F Pulse Rate Pulse Rate [Left P ulse Oximeter] 83 Respiratory Rate 16 14 Blood Pressure [Ri ght Arm] 81/52 L Pulse Oximetry 96 94 95 Oxygen Delivery Me thod Room Air Room Air 10/27/24 07:00 10/27/24 07:00 10/27/24 07:00 Temperature Pulse Rate 81 Pulse Rate [Left P ulse Oximeter] Respiratory Rate Blood Pressure [Ri ght Arm] 97/65 Pulse Oximetry 98 Oxygen Delivery Me thod 10/27/24 07:00 10/27/24 07:40 10/27/24 10:51 Temperature 97.8 F 97.6 F Pulse Rate Pulse Rate [Left P ulse Oximeter] 82 88 Respiratory Rate 16 14 Blood Pressure [Ri ght Arm] 92/61 92/61 Pulse Oximetry 98 98 94 Oxygen Delivery Me thod Room Air Room Air Room Air Labs Labs: Laboratory Results - last 24 hr 10/27/24 06:00 WBC 5.08 RBC 2.96 L Hgb 8.3 L Hct 25.4 L MCV 86 MCH 28 MCHC 33 Plt Count 195 Sodium 134 L Potassium 3.8 Chloride 107 Carbon Dioxide 26 Anion Gap 1 L BUN 14 Creatinine 0.6 Estimated Creat Clear 51.27 Estimated GFR 102 Glucose 89 Calcium 7.6 L Total Bilirubin < 0.1 L AST 13 ALT 8 Alkaline Phosphatase 56 Total Protein 3.9 L Albumin 2.1 L
--- NOTE | 2024-10-27 18:59 | PC.NURSE ---
Pt is doing well today. VSS. Pain controlled with PRN oxycodone. Surgical dressing remains clean, dry, intact. Pt is passing gas and had two bowel movements today. Pt is ambulating in room. Tolerating regular diet. Pt is slepy and forgetful throughout the day, however easily arousable.
[2024-10-27] MEDS: PRAMIPEXOLE 0.5 MG TABLET PO (20:33)
[2024-10-27] MEDS: PRAZOSIN HCL 1 MG CAPSULE PO (20:34)
[2024-10-27] MEDS: LIDOCAINE 5% PATCH 1 PATCH TRANSDERMA (22:08)
[2024-10-28 02:42] VITALS: BP 110/69; PULSE 89; PULSE 94; RESP 16; TEMP 36.6; O2SAT 98
--- NOTE | 2024-10-28 05:44 | PC.NURSE ---
Shift note: Patient is alert but occasionally confuse. Patient accidentally removed the IV cannular. New cannula inserted. Urinary frequency. No bowel movement but passing gas. Active bowel movement in all 4 quadrants. Patient is SBA in room. Tolerated regular diet well. Vitally stable. Patient had adequate sleep.
[2024-10-28 07:00] VITALS: BP 128/81; PULSE 95; PULSE 99; RESP 16; TEMP 37.1; O2SAT 98
[2024-10-28 08:02] LABS: Hematocrit* 29.8 % (33.0-51.0); Hemoglobin* 9.6 gm/dL (12.0-16.0); Immature Granulocytes Abs Auto 0.02 K/uL (0.00-0.30); Immature Granulocytes Pct Auto 0.4 %; Lymphocytes Absolute Auto 1.29 K/uL (0.90-2.90); Mean Corpuscular HGB Conc 32 gm/dL (32-36); Mean Corpuscular Hemoglobin 28 pg (26-34); Mean Corpuscular Volume 86 fL (80-100); RDW Coefficient of Variation % 15.0 % (11.5-15.5); Red Blood Count* 3.46 m/uL (4.00-5.20); White Blood Count* 5.08 K/uL (4.50-11.00)
[2024-10-28 08:08] LABS: Slide Review Reflex No
[2024-10-28 08:13] LABS: Chloride* 104 mmol/L (96-114); Sodium* 136 mmol/L (135-149)
[2024-10-28 08:14] LABS: Potassium* 3.6 mmol/L (3.6-5.1)
[2024-10-28 08:17] LABS: Anion Gap 5 mEq/L (7-15); Blood Urea Nitrogen* 8 mg/dL (7-30); Calcium* 8.1 mg/dL (8.4-10.6); Carbon Dioxide* 27 mmol/L (20-32); Creatinine* 0.5 mg/dL (0.5-1.5); Est. Creatinine Clearance* 55.21; Estimated Glomerular Filt Rate 107 ml/min; Glucose* 90 mg/dL (60-115)
[2024-10-28] MEDS: OMEPRAZOLE 20 MG CAPSULE DR 40 MG PO (09:06)
[2024-10-28] MEDS: DULOXETINE 30 MG CAPSULE DR 120 MG PO (09:07)
[2024-10-28] MEDS: BUPRENORPHINE-NALOX 8-2MG FILM 0.5 EACH SUBLINGUAL ×2 (09:07→13:46)
--- NOTE | 2024-10-28 09:09 | PM.GSPN ---
Subjective Subjective Date Seen: 10/28/24 Interval history: Ramona is doing well. She feels that her pain is well controlled.She denies nausea. She states that she ate too much for breakfast however. She did have a bowel movement yesterday and has been passing gas. She apparently pulled out her IV overnight and then it was replaced. This morning she states for some reason they took out my IV and then put it back in. Exam Narrative: Exam Narrative: General: Alert in no acute distress CV: Regular rate Respiratory: Breathing nonlabored on room air Abdomen: Essentially flat though with mild distension. Minimally tender to palpation. Incision is clean without erythema. Const: Vital Signs, click to edit/add: Vital Signs - 24 hr 10/27/24 10:51 10/27/24 15:00 10/27/24 15:00 Temperature 97.6 F Pulse Rate 99 Pulse Rate [Left P ulse Oximeter] 88 Pulse Rate [Right Pulse Oximeter] Respiratory Rate 14 Blood Pressure [Ri ght Arm] 92/61 Pulse Oximetry 94 96 Oxygen Delivery Me thod Room Air Room Air Oxygen Flow Rate 10/27/24 15:00 10/27/24 15:00 10/27/24 19:00 Temperature 98.8 F Pulse Rate Pulse Rate [Left P ulse Oximeter] 93 97 Pulse Rate [Right Pulse Oximeter] Respiratory Rate 16 16 Blood Pressure [Ri ght Arm] 97/62 128/80 Pulse Oximetry 96 96 95 Oxygen Delivery Mo thod Room Air Room Air Oxygen Flow Rate 10/27/24 23:00 10/27/24 23:00 10/27/24 23:00 Temperature Pulse Rate Pulse Rate [Left P ulse Oximeter] Pulse Rate [Right Pulse Oximeter] 92 Respiratory Rate 16 16 Blood Pressure [Ri ght Arm] Pulse Oximetry 98 98 Oxygen Delivery Me thod Room Air Oxygen Flow Rate 10/27/24 23:00 10/27/24 23:00 10/28/24 02:42 Temperature 98.8 F 97.9 F Pulse Rate 92 Pulse Rate [Left P ulse Oximeter] 89 Pulse Rate [Right Pulse Oximeter] 94 94 Respiratory Rate 16 16 Blood Pressure [Ri ght Arm] 109/66 110/69 Pulse Oximetry 98 98 Oxygen Delivery Mo thod Room Air Room Air Oxygen Flow Rate 3 10/28/24 07:00 10/28/24 07:00 10/28/24 07:00 Temperature Pulse Rate 95 Pulse Rate [Left P ulse Oximeter] Pulse Rate [Right Pulse Oximeter] Respiratory Rate Blood Pressure [Ri ght Arm] Pulse Oximetry 98 98 Oxygen Delivery Me thod Room Air Oxygen Flow Rate 10/28/24 07:00 Temperature 98.7 F Pulse Rate Pulse Rate [Left P ulse Oximeter] 99 Pulse Rate [Right Pulse Oximeter] Respiratory Rate 16 Blood Pressure [Ri ght Arm] 128/81 Pulse Oximetry 98 Oxygen Delivery Me thod Room Air Oxygen Flow Rate Labs/Imaging Labs Labs: Hemoglobin is up today at 9.6. Overall this is stable. Electrolytes within normal limits. Progress Note:A&P Assessment and plan (1) Anemia: Status: Acute (2) Status post laparotomy with lysis of adhesions: Status: Acute (3) Chronic pain: Status: Acute (4) Buprenorphine dependence: Status: Acute Plan The patient is a 63-year-old female who is postop day 3 status post laparotomy and small-bowel resection for small-bowel obstruction. She is doing really well. She has return of bowel function and is tolerating a regular diet since yesterday. She is only on oral pain medication. She may discharge as long as lunch goes well and she continues to have no nausea and antegrade bowel function. She is agreeable with this plan.
[2024-10-28 11:00] VITALS: BP 114/67; PULSE 88
--- NOTE | 2024-10-28 14:14 | PC.NURSE ---
Pt doing well. VSS. Reports minimal pain. Tolerating regular diet. Ambulating well independently. Passing gas. Pt singed discharge information and belongings form. Pt discharged home via boyfriendJerry, at 1400.
--- NOTE | 2024-10-28 15:26 | P.DS_ITS ---
DS: Providers Provider Date Seen: 10/28/24 Date of admission: 10/25/24 10:50 Primary care physician: Dev Gibson DO Admitting Clinician: Beth Rudd MD Consults: 10/25/24 11:55 Consult to Occupational Therapy [CONS] Routine Comment: Reason(s) for OT Consult:: Evaluate and Treat Any Restrictions?:: No Restrictions Consult to Physical Therapy [CONS] Routine Comment: Reason(s) for PT Consult:: Evaluate and Treat Any Restrictions?:: No Restrictions Consult to Crm Analyst [CONS] Routine Comment: Reason for Consult:: Social Service Consult Attending Physician on discharge: Atilio Gray MD Date of Discharge: 10/28/24 DS: Diagnosis Discharge Diagnosis (1) Small bowel obstruction: Status: Acute Problem details: -post-op day#1. On clears. pain management is highest priority: dilaudid sparingly - oxy 10mg q4, Toradol, acetaminophen, Ativan sparingly -Dr. Dhaliwal, exploratory laparotomy and small-bowel resection -internal hernia; primary anastomosis (2) Status post laparotomy with lysis of adhesions: Status: Acute Problem details: Small bowel resection for small bowel obstruction. 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 Accu-Cheks, sliding scale insulin. Metformin on hold. (11) IBS (irritable bowel syndrome): Status: Acute DS: Summary Hospital Course Hospital Course: Day #: 4 POD #3, Exploratory laparotomy with small bowel resection CC: Pain, tenderness, anxiety 24 HOUR UPDATE: surgery was uncomplicated. her pain is improved. she is hungry this morning. she has passed a bowel movement. Notable Labs, Micro, Rads, Interventions: Vitals reveal likely a baseline low normal blood pressure. This morning is 99/60. Pulse is in 90s. Respiratory rate has been 10-12, however she is responsive and without respiratory compromise. Pulse ox is mid 90s on room air WBC count is normal. Hemoglobin dropped from preop likely about 11 down to 8.3. Platelets are normal. Sodium is up to 134, renal function and other electrolytes are okay. A1c is 5.6 Objective: smiling; more comfortable today Vitals: see above Lungs: Clear. Abdomen: distended but less than yesterday Cardiac: S1S2. Status at Discharge Overall status at discharge: patient is progressing back to baseline Time Spent with Patient Time attestation: Total time spent providing and/or coordinating discharge services: Time spent: Less than 30 minutes Exam Narrative: Exam Narrative: Notable Labs, Micro, Rads, Interventions: Vitals reveal likely a baseline low normal blood pressure. This morning is 99/60. Pulse is in 90s. Respiratory rate has been 10-12, however she is responsive and without respiratory compromise. Pulse ox is mid 90s on room air WBC count is normal. Hemoglobin dropped from preop likely about 11 down to 8.3. Platelets are normal. Sodium is up to 134, renal function and other electrolytes are okay. A1c is 5.6 Objective: smiling; more comfortable today Vitals: see above Lungs: Clear. Abdomen: distended but less than yesterday Cardiac: S1S2. Const: Vital Signs, click to edit/add: Vital Signs - 24 hr 10/27/24 19:00 10/27/24 23:00 10/27/24 23:00 Temperature 98.8 F Pulse Rate Pulse Rate [Left P ulse Oximeter] 97 Pulse Rate [Right Pulse Oximeter] 92 Respiratory Rate 16 16 Blood Pressure [Ri ght Arm] 128/80 Pulse Oximetry 95 98 Oxygen Delivery Me thod Room Air Oxygen Flow Rate 10/27/24 23:00 10/27/24 23:00 10/27/24 23:00 Temperature 98.8 F Pulse Rate 92 Pulse Rate [Left P ulse Oximeter] Pulse Rate [Right Pulse Oximeter] 94 Respiratory Rate 16 16 Blood Pressure [Ri ght Arm] 109/66 Pulse Oximetry 98 98 Oxygen Delivery Me thod Room Air Room Air Oxygen Flow Rate 3 10/28/24 02:42 10/28/24 07:00 10/28/24 07:00 Temperature 97.9 F Pulse Rate 95 Pulse Rate [Left P ulse Oximeter] 89 Pulse Rate [Right Pulse Oximeter] 94 Respiratory Rate 16 Blood Pressure [Ri ght Arm] 110/69 Pulse Oximetry 98 98 Oxygen Delivery Me thod Room Air Oxygen Flow Rate 10/28/24 07:00 10/28/24 07:00 10/28/24 11:00 Temperature 98.7 F Pulse Rate Pulse Rate [Left P ulse Oximeter] 99 88 Pulse Rate [Right Pulse Oximeter] Respiratory Rate 16 Blood Pressure [Ri ght Arm] 128/81 114/67 Pulse Oximetry 98 98 Oxygen Delivery Me thod Room Air Room Air Oxygen Flow Rate DS: Data Data Completed and Pending Labs on day of discharge: Labs from last 24 hours 10/28/24 07:56 WBC 5.08 RBC 3.46 L Hgb 9.6 L Hct 29.8 L MCV 86 MCH 28 MCHC 32 RDW Coeff of Monserrat 15.0 Plt Count 243 Neut % (Auto) 66.9 Lymph % (Auto) 25.4 [place] % (Auto) 5.3 Eos % (Auto) 1.8 Baso % (Auto) 0.2 Neut # (Auto) 3.40 Lymph # (Auto) 1.29 [place] # (Auto) 0.30 Eos # (Auto) 0.09 Baso # (Auto) 0.01 Abs Immat Gran (auto) 0.02 Imm/Tot Granulo (auto) 0.4 Sodium 136 Potassium 3.6 Chloride 104 Carbon Dioxide 27 Anion Gap 5 L BUN 8 Creatinine 0.5 Estimated Creat Clear 55.21 Estimated GFR 107 Glucose 90 Calcium 8[address] scan - abdomen: Radiologist's impression: IMPRESSION: Small bowel obstruction. There is some bowel wall thickening just proximal to what appears to be the transition point. No definitive findings of a closed loop obstruction, although the bowel is very difficult to follow due to streak artifact from the spinal hardware. The degree of bowel distention is not quite as severe as 10/12/2024. No findings of definite ischemia or perforation Discharge Plan Discharge Disposition: Home, Self-Care Date of Admission: 10/25/24 10:50 Consulting Providers: Beth Rudd; Atilio Gray Primary Care Provider: [place],Dev P Condition: Improved Anticipated Discharge Date/Time: 10/28/24 13:00 Discharge Medications: New oxycodone 5 mg Tablet 5 - 10 mg PO Q6H PRNQty: 25 0RF Continued duloxetine [Cymbalta] 60 mg capsule,delayed release(DR/EC) 120 mg PO DAILY lamotrigine 200 mg tablet 200 mg PO BID tizanidine 4 mg tablet 2 - 4 mg PO Q6H PRN bupropion HCl 300 mg tablet extended release 24 hr 300 mg PO DAILY buprenorphine-naloxone 8-2 mg film 0.5 film sublingual QID trazodone 100 mg tablet 100 mg PO HS prazosin 1 mg capsule 1 mg PO HS sennosides-docusate sodium [Senna with Docusate Sodium] 8.6-50 mg tablet 1 - 4 tab-cap PO BID simvastatin 20 mg tablet 20 mg PO HS metformin 1,000 mg tablet 1,000 mg PO BIDWM omeprazole 40 mg capsule,delayed release(DR/EC) 40 mg PO DAILY Qty: 90 3RF pramipexole 0.5 mg tablet 0.5 mg PO DAILY Qty: 90 1RF No Action (DME) blood-glucose meter Misc See Rx Instructions .Route Qty: 1 0RF Rx Instructions: As directed (DME) Accu-Chek Kaylee Plus test strp Strip See Rx Instructions .Route Qty: 100 3RF Rx Instructions: tid (DME) lancets [Accu-Chek Softclix Lancets] Misc See Rx Instructions .Route Qty: 300 0RF Rx Instructions: tid Discharge Orders: Discharge Order (Routine); Ordered 10/28/24 Ordered By: Pema Dhaliwal Consulting provider completed their portion of the discharge: Yes Patient Education: Oxycodone, Rapid Release (By mouth), NH+C Laparoscopy Discharge Instructions Additional Instructions: Wound care: Your sutures are under the skin and will dissolve over time. Leave steri strips (white bandages) over incisions until they fall off (or remove after 7 days). OK to shower but avoid bathing, soaking or swimming for 2 weeks. Pat the incisions dry. No need to wash or scrub the area. Apply ice to the area as needed for swelling. It is also OK to use a heating pad if this provides more comfort to you. Pain control: You should take Suboxone as scheduled. You were prescribed a pain medication. Take this for severe pain. You may take acetaminophen (Tylenol) as well for pain in between doses. As your pain improves, you can try taking acetaminophen instead of the p rescribed pain pill. It is ok to take Ibuprofen or Naproxen (per directions on packaging). This medication helps with inflammation and swelling. Take an nhze-fan-lcigkbk stool softener while you are taking prescribed pain medications to help alleviate constipation. I recommend Senna and/or Colace. Take as directed on package. If you have not had a bowel movement in 3 days, try taking Miralax as directed on the package. All of these are available over the counter. Follow-up Follow up with Dr. Dhaliwal in 2-3 weeks Please call if you are experiencing severe pain, nausea, vomiting, difficulty urinating, fever or have not had bowel movement in 4 days after surgery. Follow-up with pain specialist as planned and as needed, Follow-up with primary intensive care ambulance paramedic as planned and as needed. Activity Level: No strenuous activity Activity Detail: No lifting more than 20 pounds for 4 weeks. Discharge Diet: Diabetic Follow Up Appointments: Dev Gibson DO [Primary Care Provider, Emergency Medicine] Pema Dhaliwal MD [Staff Physician, General Surgery] - 11/16/24 9:00 am Referral Note: [facility] for follow up Hayes Mcelroy MD [Staff Physician, Family Practice] Forms: [facility] Bel[facility], [facility] Info Instructions
== END 2024-10-28 14:00 | disposition home or self-care (01) | DRG 330 ==
LOC: ED 10:18 → MEDSURG 10:49
PROVIDERS: Surgery; Admitting Provider Family Medicine; Emergency Provider Family Medicine; PCP Student in an Organized Health Care Education/Training Program; Visit Provider Family Medicine
PROC: 0DT80ZZ Resection of Small Intestine, Open Approach (ICD-10-PCS; CPT 49000; principal; 2024-10-25 13:00)
DX: K56.50 Intestinal adhesions [bands], unspecified as to partial versus complete obstruction (principal); D62 Acute posthemorrhagic anemia; K46.0 Unspecified abdominal hernia with obstruction, without gangrene; E87.1 Hypo-osmolality and hyponatremia; F11.20 Opioid dependence, uncomplicated; G89.18 Other acute postprocedural pain; E13.9 Other specified diabetes mellitus without complications; Z79.84 Long term (current) use of oral hypoglycemic drugs; Z79.85 Long-term (current) use of injectable non-insulin antidiabetic drugs; M54.9 Dorsalgia, unspecified; G89.29 Other chronic pain; M54.2 Cervicalgia; K21.9 Gastro-esophageal reflux disease without esophagitis; K58.9 Irritable bowel syndrome, unspecified; F41.9 Anxiety disorder, unspecified; F32.A Depression, unspecified; G25.81 Restless legs syndrome; E78.5 Hyperlipidemia, unspecified; Z96.89 Presence of other specified functional implants; Z98.1 Arthrodesis status
CPT/HCPCS: 00840; 36415; 51798; 64488; 74177; 76942; 80048; 80053; 81001; 82962; 83036; 83605; 83690; 85018; 85025; 85027; 86140; 88307; 93005; 94761; 97116; 97161; 97165; 97535; 99140; 99285; A9270; J0131; J0330; J0574; J0665; J0666; J1100; J1171; J1885; J2060; J2250; J2371; J2405; J2543; J2704; J3010; J3475; J3490; J7120; Q9967

== ENCOUNTER 2024-11-06 01:10 | Emergency (ER) | payer MEDICARE, OTHER, SELFPAY ==
--- OUTSIDE RECORDS SUMMARY | 2013-08-03 11:58 | XMS_ITS | Continuity of Care Document ---
Author Organization [facility] Address [address] [place] [address] Phone Care Team Providers Care Tape Edge Machine Operator Name Role Phone Ronald Herrera MD Unavailable [...] Date Provider Providers Copied on Encounter [facility], [address], [place], [place], [address], [place] tel:[phone] [facility] No Information 4 Sharon Cardenas. [address], [place], [place], [address], [place]. tel:[phone] Referring Provider: Tommy Mcelroy MD C, [address], [place], [address]. tel:[phone] [facility], [address], [place], [place], [address], [place] tel:[phone] [facility] No Information 4 RN RN. [address], [place], [place], [address], [place]. tel:[phone] Referring Provider: Tommy Rand, [address], [place], [address]. tel:[phone] Est Pt Eval 15 Min [facility], [facility], [address], [place], [place], [address], [place] tel:[phone] [facility] No Information 4 No Information Referring Provider: Tommy Rand, [address], [place], [address]. tel:[phone] Offic/outpt E&m Estab Mod-hi 4 [facility], [address], [place], [place], [address], [place] tel:[phone] [facility] No Information 4 No Information Referring Provider: Tommy Rand, [address], [place], [address]. tel:[phone] Offic/outpt E&m Estab Low-mod [facility], [facility], [address], [place], [place], [address], [place] tel:[phone] [facility] No Information 4 No Information Referring Provider: Tommy Rand, [address], [place], [address]. tel:[phone] Offic/outpt E&m Estab Low-mod [facility], [address], [place], [place], [address], [place] tel:[phone] [facility] No Information 4 No Information Referring Provider: Tommy Rand, [address], [place], [address]. tel:[phone] [facility], [address], [place], [place], [address], [place] tel:[phone] [facility] No Information 4 No Information Referring Provider: Tommy Rand, [address], [place], [address]. tel:[phone] [facility], [facility], [address], [place], [place], [address], [place] tel:[phone] Ayleen [facility] 7390 No Information 0 4 Tremayne Medinaagustin Ruiz. [address], [address], [place], [place], [address], [place]. tel:[phone] Referring Provider: Tommy Rand, [address], [place], [address]. tel:[phone] Psychiatric Diagnostic Evaluation [facility], [facility], [address], [place], [place], [address], [place] tel:[phone] [place] [facility] 7390 No Information 4 Femi Cristina. [address], [address], [place], [place], [address], [place]. tel:[phone] Referring Provider: Tommy Rand, [address], [place], [address]. tel:[phone] Offic/outpt E&m Estab Low-mod [facility], [facility], [address], [place], [place], [address], [place] tel:[phone] [facility] No Information 4 No Information Referring Provider: Tommy Rand, [address], [place], [address]. tel:[phone] Offic/outpt E&m Estab Mod-hi 2 [facility], [facility], [address], [place], [place], [address], [place] tel:[phone] [facility] No Information 4 No Information Referring Provider: Tommy Rand, [address], [place], [address]. tel:[phone] [facility], [address], [place], [place], [address], [place] tel:[phone] [facility] No Information 4 Sharon Cardenas. [address], [place], [place], [address], [place]. tel:[phone] Referring Provider: Tommy Rand, [address], [place], [address]. tel:[phone] Offic Cons New/estab Mod-hi 60 [facility], [address], [place], [place], [address], tel:[phone] [facility] No Information 4 No Information Referring Provider: Tommy Rand, [address], [place], [address]. tel:[phone] Family History Family Member Type Diagnosis Age At Onset N/A Problem (finding) No Significant Family H istory Payers Payer name Insurance type Covered republican ID Authoriza tiflaco(s) [facility]-Medicaid [id number] Social History Type Description Quantity Date Captured Comments Sex Female Smoking Status No Information Chief Complaint And Reason For Visit No Information Reason For Referral Reason For Referral No Information Plan Of Treatment Date Type Action Status Future Order: Lab Order COMPLIAN CE DRUG ANALYSIS,URINE,WITH MED REPORT ([id number]), Appointment on: , Collected on: , Sent [...]
--- OUTSIDE RECORDS SUMMARY | 2013-08-03 11:58 | XMS_ITS | Continuity of Care Document ---
Author Organization [facility] Address [address] [place] [address] Phone Care Team Providers Care Drawing In Machine Tender Helper Name Role Phone Ronald Herrera MD Unavailable [...] Date Provider Providers Copied on Encounter [facility], [address] [facility] [address], [place], [place], [id number], [place] tel:[phone] [facility] No Information 4 Sharon Cardenas. [address], [place], [place], [address], [place]. tel:[phone] Referring Provider: Tommy Mcelroy MD C, [address], [place], [address]. tel:[phone] [facility], [address] [facility] [address], [place], [place], [id number], [place] tel:[phone] [facility] No Information 4 RN RN. [address], [address], [place], [place], [address], [place]. tel:[phone] Referring Provider: Tommy Rand, [address], [place], [address]. tel:[phone] Est Pt Eval 15 Min [facility], [address], [place], [place], [id number], [place] tel:[phone] [facility] No Information 4 No Information Referring Provider: Tommy Rand, [address], [place], [address]. tel:[phone] Offic/outpt E&m Estab Mod-hi 4 [facility], [address], [place], [place], [id number], [place] tel:[phone] [facility] No Information 4 No Information Referring Provider: Tommy Rand, [address], [place], [address]. tel:[phone] Offic/outpt E&m Estab Low-mod [facility], [address], [place], [place], [address], [place] tel:[phone] [facility] No Information 4 No Information Referring Provider: Tommy Rand, [address], [place], [address]. tel:[phone] Offic/outpt E&m Estab Low-mod [facility], [address], [place], [place], [address], [place] tel:[phone] [facility] No Information 4 No Information Referring Provider: Tommy Rand, [address], [place], [address]. tel:[phone] [facility], [address], [place], [place], [address], [place] tel:[phone] [facility] No Information 4 No Information Referring Provider: Tommy Rand, [address], [place], [address]. tel:[phone] [facility], [address], [place], [place], [address], [place] tel:[phone] [facility] 7390 No Information 0 4 Tremayne Medinaagustin Ruiz. [address], [address], [place], [place], [id number], [place]. tel:[phone] Referring Provider: Tommy Rand, [address], [place], [address]. tel:[phone] Psychiatric Diagnostic Evaluation [facility], [address], [place], [place], [id number], [place] tel:[phone] [place] [facility] 7[address] No Information 4 Femi Cristina. [address], [address], [place], [place], [address], [place]. tel:[phone] Referring Provider: Tommy Rand, [address], [place], [address]. tel:[phone] Offic/outpt E&m Estab Low-mod [facility], [address], [place], [place], [id number], [place] tel:[phone] [facility] No Information 4 No Information Referring Provider: Tommy Rand, [address], [place], [address]. tel:[phone] Offic/outpt E&m Estab Mod-hi 2 [facility], [address], [place], [place], [id number], [place] tel:[phone] [facility] No Information 4 No Information Referring Provider: Tommy Rand, [address], [place], [address]. tel:[phone] [facility], [address], [place], [place], [address], [place] tel:[phone] [facility] No Information 4 Sharon Cardenas. [address], [place], [place], [address], [place]. tel:[phone] Referring Provider: Tommy Rand, [address], [place], [address]. tel:[phone] Offic Cons New/estab Mod-hi 60 [facility], [address], [place], [place], [id number], tel:[phone] [facility] No Information 4 No Information Referring Provider: Tommy Rand, [address], [place], [address]. tel:[phone] Family History Family Member Type Diagnosis Age At Onset N/A Problem (finding) No Significant Family H istory Payers Payer name Insurance type Covered libertarian ID Authoriza tiflaco(s) [facility]Med[facility] [id number] Social History Type Description Quantity Date Captured Comments Sex Female Smoking Status No Information Chief Complaint And Reason For Visit No Information Reason For Referral Reason For Referral No Information Plan Of Treatment Date Type Action Status Future Order: Lab Order COMPLIAN CE DRUG ANALYSIS,URINE,WITH MED REPORT ([id number]), Appointment on: , Collected on: , Sent [...]
--- OUTSIDE RECORDS SUMMARY | 2023-06-25 03:40 | XMS_ITS | Continuity of Care Document ---
Author Organization [facility] Address [address] [address] [place] [address] Phone Care Team Providers Care Blog Writer Name Role Phone Sanjay Evangelista MD Unavailable [...] - Active Procedures Procedure Date Offic/outpt E&m [facility] Advance Directives Directive Yes / No Effective Date File Name No Information Encounters Encounter Description Practice Location Reason(s) For Visit Diagnoses Date Provider Providers Copied on Encounter [facility] [place], [address] [address], [place], [id number], [place] tel:[phone] [facility] No Information 4 Jonah Grace. [address], [id number], [place]. tel:[phone] Offic/outpt E&m [facility], [address] [address], [place], [id number], [place] tel:[phone] [facility] GI Symptoms or Concerns (chief complaint) Abdominal distensionColon cancer screening 4 Pel[place] [address]. [address], [id number], [place]. tel:[phone] Referring Provider: Blaire MONZON N, [address], [place], [address]. tel:[phone] [facility] [place], [address] [address], [place], [place], [id number], tel:[phone] [facility] No Information 4 Jonah Grace. [address] [facility], [facility] [address], [place], [place], [id number], [place]. tel:[phone] Family History Family Member Type Diagnosis Age [...] Registry Payers Payer name Insurance type Covered republican ID Authoriza tion(s) No Information Social History [...] movement a day type 4 on the [place] stool chart. She does take Linzess 145 [...] No Information Instructions Date Instruction Additional Infor maroc -- As we discussed i n the [...]
--- OUTSIDE RECORDS SUMMARY | 2023-06-25 03:40 | XMS_ITS | Continuity of Care Document ---
Author Organization [facility] Address [address] [address] [place] [address] Phone Care Team Providers Care Blacksmith Supervisor Name Role Phone Sanjay Evangelista MD Unavailable [...] - Active Procedures Procedure Date Offic/outpt E&m [facility] Advance Directives Directive Yes / No Effective Date File Name No Information Encounters Encounter Description Practice Location Reason(s) For Visit Diagnoses Date Provider Providers Copied on Encounter [facility] [place], [address] [address], [place], [id number], [place] tel:[phone] [facility] No Information 4 Jonah Grace. [address], [id number], [place]. tel:[phone] Offic/outpt E&m [facility] [place], [address] [address], [place], [id number], [place] tel:[phone] [facility] GI Symptoms or Concerns (chief complaint) Abdominal distensionColon cancer screening 4 Pel[place] Ter[address]. [address], [id number], [place]. tel:[phone] Referring Provider: Blaire MONZON N, [address], [place], [address]. tel:[phone] [facility] [place], [address] [address], [place], [place], [id number], tel:[phone] [facility] No Information 4 Jonah Grace. [address] [facility], [facility] [address], [place], [place], [id number], [place]. tel:[phone] Family History Family Member Type Diagnosis Age [...] Registry Payers Payer name Insurance type Covered green party ID Authoriza tion(s) No Information Social [...] movement a day type 4 on the [place] stool chart. She does take Linzess 145 [...]
--- OUTSIDE RECORDS SUMMARY | 2024-09-06 03:15 | XMS_ITS | Continuity of Care Document ---
Author Organization [facility] Address [address] [place] [address] Care Team Providers Care Semiconductor Assembler Name Role Phone [facility] Unavailable Unav ailable Procedures Procedure Date INTERLAMINAR LMBR OR SAC Dest by neurolytic agt, genicular nv br [...] Diagnoses Date Provider Providers Copied on Encounter [facility], [address] [place], [place], [id number], [place] [facility] No Information [facility]. [address] [place], [place], [id number], . tel:[phone] Referring Provider: Divina Deras, [address] [place], [address]. tel:[phone] [facility], [address] [place], [place], [id number], [place] [facility] [place] No Information [facility]. [facility] [place], [id number], [place]. tel:[phone] Referring Provider: Divina Deras, [address] [place] [address] [place], [address]. tel:[phone] [place] [address] [facility] [place], [address] [place] [address], [id number], [facility] [place] No Information [facility] [place]. [address] [place] [address] Devendra, [place], [id number], [place]. tel:[phone] Referring Provider: Divina Deras, [address] [place] [address], [address]. tel:[phone] [place] [address], [address] [place] [address] [place], [id number], [facility] [place] No Information [facility]. [address] [place] [address] Pablo [place], [id number], [place]. tel:[phone] Referring Provider: Divina Deras, [address] [place] [address], [address]. tel:[phone] [place] [address], [address] [place] [address] [place], [id number], [facility] [place] No Information [facility]. [address] [place] [address] [place], [id number], [place]. tel:[phone] Referring Provider: Divina Deras, [address] [place] [address], [address]. tel:[phone] [place] [address], [address] [place] [address] [place], [id number], [facility] [place] No Information [facility]. [address] [place] [address] [place], [id number], [place]. tel:[phone] Referring Provider: Divina Deras, [address] [place] [address], [address]. tel:[phone] Family History Family Member Type Diagnosis Age At Onset No Information Payers Payer name Insurance type Covered alliance party ID Authoriza tiflaco(s) [employer] Prime Solution [id number] CI [id number] Social History Type Description Quantity Date Captured [...]
--- OUTSIDE RECORDS SUMMARY | 2024-09-06 03:15 | XMS_ITS | Continuity of Care Document ---
Author Organization [facility] Address [address] [place] [address] Care Team Providers Care Land Appraiser Name Role Phone [facility] Unavailable Unav ailable Procedures Procedure Date INTERLAMINAR [...] Diagnoses Date Provider Providers Copied on Encounter [facility], [address] [place], [place], [id number], [place] [facility] No Information [facility]. [address] [place], [place], [id number], . tel:[phone] Referring Provider: Divina Deras, [address] [place], [address]. tel:[phone] [facility], [address] [place], [place], [id number], [place] [facility] [place] No Information [facility]. [facility] [place], [id number], [place]. tel:[phone] Referring Provider: Divina Deras, [address] [place] [address] [place], [address]. tel:[phone] [place] [address] [facility] [place], [address] [place] [address], [id number], [facility] [place] No Information [facility] [place]. [address] [place] [address] Devendra, [place], [id number], [place]. tel:[phone] Referring Provider: Divina Deras, [address] [place] [address], [address]. tel:[phone] [place] [address], [address] [place] [address] [place], [id number], [facility] [place] No Information [facility]. [address] [place] [address] [place], [id number], [place]. tel:[phone] Referring Provider: Divina Deras, [address] [place] [address], [address]. tel:[phone] [place] [address], [address] [place] [address] [place], [id number], [facility] [place] No Information [facility]. [address] [place] [address] [place], [id number], [place]. tel:[phone] Referring Provider: Divina Deras, [address] [place] [address], [address]. tel:[phone] [place] [address], [address] [place] [address] [place], [id number], [facility] [place] No Information [facility]. [address] [place] [address] Pablo [place], [id number], [place]. tel:[phone] Referring Provider: Divina Deras, [address] [place] [address], [address]. tel:[phone] Family History Family Member Type Diagnosis Age At Onset No Information Payers Payer name Insurance type Covered alliance party ID Authoriza tiflaco(s) [employer] Prime Solution [id number] CI [id number] Social History Type Description Quantity Date Captured [...]
--- OUTSIDE RECORDS SUMMARY | 2024-09-10 03:58 | XMS_ITS | Continuity of Care Document ---
Author Organization [facility] Address [address] [place] [address] Care Team Providers Care Pyrometer Mechanic Name Role Phone Sulaiman Clancy CRNA Unavailable Unavailable Procedures Procedure Date Percutaneous Image guided injection, dra glez, agustin ANESTH, NERVE BLOCK/INJ Percutaneous Image guided destruction pr ocedures B ANESTH, NERVE BLOCK/INJ Advance Directives Directive Yes / No Effective Date File Name No Information Encounters Encounter Description Practice Location Reason(s) For Visit Diagnoses Date Provider Providers Copied on Encounter [facility], [address] [place] [address], [id number], [facility] [place] No Information Aston Hilario. [address] [facility], [place], [place], [id number], . tel:[phone] Referring Provider: Divina Deras, [address] [place] [address] [place], [address] . tel:[phone] [facility], [address] [facility] [place], [id number], [facility] [place] No Information Ethan Reynolds. [address], [place], [place], [id number], . tel:[phone] Referring Provider: Divina Deras, [address] [facility] [place], [address] . tel:[phone] [facility], [address] [place], [place], [id number], [facility] [place] No Information Devang Lockwood. [address] [facility] [address], [place], [place], [id number], . tel:[phone] Referring Provider: Divina Deras, [address] [facility] [place], [address] . tel:[phone] [facility], [address] [place], [place], [id number], [facility] [place] No Information Cy Campos. [address] [facility], [place], [place], [id number], . tel:[phone] Referring Provider: Divina Deras, [address] [facility] [place], [address] . tel:[phone] Family History Family Member Type Diagnosis Age At Onset No Information Payers Payer name Insurance type Covered libertarian ID Authoriza tiflaco(s) [employer] Prime Solution [id number] CI [id number] Social History Type Description Quantity Date Captured [...]
--- OUTSIDE RECORDS SUMMARY | 2024-09-10 03:58 | XMS_ITS | Continuity of Care Document ---
Author Organization [facility] Address [address] [place] [id number] Care Team Providers Care Kiln Car Unloader Name Role Phone Sulaiman Clancy CRNA Unavailable Unavailable Procedures Procedure Date Percutaneous Image guided injection, dra glez, agustin ANESTH, NERVE BLOCK/INJ Percutaneous Image guided destruction pr ocedures B ANESTH, NERVE BLOCK/INJ Advance Directives Directive Yes / No Effective Date File Name No Information Encounters Encounter Description Practice Location Reason(s) For Visit Diagnoses Date Provider Providers Copied on Encounter [facility], [address] [place] [address], [id number], [facility] No Information Aston Hilario. [address] [facility], [place], [place], [id number], . tel:[phone] Referring Provider: Divina Deras, [address] [place] [address] [place], [address] . tel:[phone] [facility], [address] [facility] [place], [id number], [facility] No Information Ethan Reynolds. [address], [place], [place], [id number], . tel:[phone] Referring Provider: Divina Deras, [address] [place], [address] . tel:[phone] [facility], [address] [place], [place], [id number], [facility] No Information Devang Lockwood. [address], [place], [place], [id number], . tel:[phone] Referring Provider: Divina Deras, [address] [place], [address] . tel:[phone] [facility], [address] [place], [place], [id number], [facility] No Information Cy Campos. [address] [facility], [place], [place], [id number], . tel:[phone] Referring Provider: Divina Deras, [address] [facility] [place], [address] . tel:[phone] Family History Family Member Type Diagnosis Age At Onset No Information Payers Payer name Insurance type Covered green party ID Authoriza tiflaco(s) [employer] [id number] Social History Type Description Quantity Date Captured [...]
--- OUTSIDE RECORDS SUMMARY | 2024-09-20 03:56 | XMS_ITS | Continuity of Care Document ---
Author Organization [facility] tommie Address [address] [place] [address] Phone Care Team Providers Care Box Toe Maker Name Role Phone Ronald Maldonado Unavailable Unavailable Allergies, Adverse Reactions, Alerts Substance Reaction Status Criticality diphenhydramine Active No Informati on PROCHLORPERAZINE MALEATE Active No Information PROCHLORPERAZINE EDISYLATE Active N o Information Medications Medication Instructions Dosage Effective Dates (start - stop) Status Comments tizanidine 4 mg tablet take 1 tablet [...] route every day 1 MG - Active Suboxone 8 mg-[address] 0.5 film by sublingual route 4 times every day for chronic pain allow to dissolve slowly in mouth without chewing or swallowing. MAX 2 films/day - No Longer Active [id number], to fill and start 09/20 Procedures Procedure Date OFFICE VISIT, EST TELEMEDICINE [...] def 15-21 classes OFFICE VISIT, EST TELEMEDICINE Luisito-19-20 24 OFFICE/OUTPATIENT VISIT, EST Drug Urine Toxology With [...] Copied on Encounter OFFICE VISIT, EST TELEMEDICINE [facility], [address] [place], [id number] , [place] tel:[phone] [facility] [place] Widespread pain (chief complaint) Chronic pain syndromePostl aminectomy syndrome, not elsewhere classifiedDru g induced constipationL lupis term (current) use of opiate analgesicRadi culopathy, lumbar region 5 Darnell Cardenas. [address] [place] [address], [id number], [place]. tel:[phone] Consulting Provider: Lucas Talamantes, [facility] [address], [place], [address]. tel:[phone] [facility], [address] [place] [address], [id number] , [place] tel:[phone] [facility] [place] Radiculopathy , lumbar region 5 Braeden Murcia. [address] [place] [address], [id number], [place]. tel:[phone] Referring Provider: Ronald Patrick, [address] [place] [address], [id number]. tel:[phone] OFFICE VISIT, EST TELEMEDICINE [facility], [address] [place] [address], [id number] , [place] tel:[phone] [facility] [place] Widespread pain (chief complaint) Chronic pain syndromePostl aminectomy syndrome, not elsewhere classifiedDru g induced constipationL lupis term (current) use of opiate analgesicRadi culopathy, lumbar region 5 Darnell Cardenas. [address] [place] [address], [id number], [place]. tel:[phone] Consulting Provider: Lucas Talamantes, [facility] [address], [address], [place], [address]. tel:[phone] ring Provider: Emir Espinal, [address] [place] [address], [id number]. tel:[phone] OFFICE/OUTPAT IENT VISIT, EST [facility], [address] [place] [address], [id number] , [place] tel:[phone] [facility] [place] Widespread pain (chief complaint) Chronic pain syndromePostl aminectomy syndrome, not elsewhere classifiedDru g induced constipationL lupis term (current) use of opiate analgesicRadi culopathy, lumbar regionEncount er for therapeutic drug level monitoring 5 Darnell Cardenas. [address] [place] [address], [id number], [place]. tel:[phone] Consulting Provider: Lucas Talamantes, [facility] [address], [address], [place], [address]. tel:[phone] [facility] Provider: Emir Espinal, [address] [place] [address], [id number]. tel:[phone] OFFICE VISIT, [facility], [address] [place] [address], [id number] , [place] tel:[phone] [facility] [place] Widespread pain (chief complaint) Chronic pain syndromeOther intervertebra l disc degeneration, lumbar region, NOSPostlamine ctomy syndrome, not elsewhere classifiedDru g induced constipationL lupis term (current) use of opiate analgesic May-0 6- 5 Darnellbuddy Cardenas. [address] [place] [address], [id number], [place]. tel:[phone] Consulting Provider: Lucas Talamantes [facility] [address], [address], [place], [address]. tel:[phone] [facility] Provider: Emir Espinal, [address] [place] [address], [id number]. tel:[phone] OFFICE VISIT, [facility], [address] [place] [address], [id number] , [place] tel:[phone] [facility] [place] low back pain (chief complaint) Chronic pain syndromeOther intervertebra l disc degeneration, lumbar region, NOSPostlamine ctomy syndrome, not elsewhere classifiedDru g induced constipationL lupis term (current) use of opiate analgesic Apr-0 8- 5 Van Overbeke Kiara. [address] [place] [address], [id number], [place]. tel:[phone] Consulting Provider: Lucas Talamantes [facility] [address], [address], [place], [address]. tel:[phone] ring Provider: Emir Espinal, [address] [place] [address], [id number]. tel:[phone] OFFICE/OUTPAT IENT VISIT, [facility], [address] [place], [place], [id number] , [place] tel:[phone] [facility] [place] low back pain (chief complaint) Chronic pain syndromeOther intervertebra l disc degeneration, lumbar region, NOSPostlamine ctomy syndrome, not elsewhere classifiedDru g induced constipationL lupis term (current) use of opiate analgesicBody mass index [BMI] 19.9 or less, adultEncounte r for therapeutic drug level monitoring 5 Darnell Cardenas. [address] [place], [place], [id number], [place]. tel:[phone] Consulting Provider: Lucas Talamantes [facility] [address], [address], [place], [address]. tel:[phone] ring Provider: Emir Espinal, [address] [place] [address], [id number]. tel:[phone] OFFICE/OUTPAT IENT VISIT, [facility], [address] [place] [address], [id number] , [place] tel:[phone] [facility] back pain (chief complaint) Chronic pain syndromeOther intervertebra l disc degeneration, lumbar region, NOSPostlamine ctomy syndrome, not elsewhere classifiedDru g induced constipationL lupis term (current) use of opiate analgesicEnco unter for therapeutic drug level monitoring 5 Darnell Cardenas. [address] [place], [place], [id number], [place]. tel:[phone] Consulting Provider: Lucas Talamantes, [facility] [address], [address], [place], [address]. tel:[phone] ring Provider: Emir Espinal, [address] [place] [address], [id number]. tel:[phone] OFFICE/OUTPAT IENT VISIT, [facility], [address] [place] [address], [id number] , [place] tel:[phone] [facility] Opioid dependence, uncomplicated 5 Audrey Silverio. [address] [place] [address], [id number], [place]. tel:[phone] Referring Provider: Emir Espinal, [address] [place] [address], [id number]. tel:[phone] OFFICE VISIT, [facility] TELEMEDICINE [facility], [address] [place] [address], [id number] , [place] tel:[phone] [facility] Back pain (chief complaint) Chronic pain syndromeOther intervertebra l disc degeneration, lumbar region, NOSPostlamine ctomy syndrome, not elsewhere classifiedDru g induced constipationL lupis term (current) use of opiate analgesic 5 Jonah Craig. [address] [place] [address], [id number], [place]. tel:[phone] Consulting Provider: Lucas Talamantes, [facility] [address], [address] [facility], [place], [address]. tel:[phone] OFFICE/OUTPAT IENT VISIT, [facility], [address] [place] [address], [id number] , [place] tel:[phone] [facility] Back Pain (chief complaint) Chronic pain syndromeOther intervertebra l disc degeneration, lumbar region, NOSPostlamine ctomy syndrome, not elsewhere classifiedDru g induced constipationL lupis term (current) use of opiate analgesicEnco unter for therapeutic drug level monitoring 4 Jonah Craig. [address] [place] [address], [id number], [place]. tel:[phone] Consulting Provider: Lucas Talamantes, [facility] [address], [address], [place], [address]. tel:[phone] ring Provider: Emir Espinal, [address] [place] [address], [address]. tel:[phone] OFFICE VISIT, [facility] TELEMEDICINE [facility], [address] [place] [address], [id number] , [place] tel:[phone] [facility] ([facility] complaint) Chronic pain syndromeOther intervertebra l disc degeneration, lumbar region, NOSPostlamine ctomy syndrome, not elsewhere classifiedDru g induced constipationL lupis term (current) use of opiate analgesic 4 Mariusz Orellana. [address] [place] [address], [id number], [place]. tel:[phone] Consulting Provider: Lucas Talamantes, [facility] [address], [address], [place], [address]. tel:[phone] ring Provider: Emir Espinal, [address] [place] [address], [id number]. tel:[phone] [facility], [address] [place] [address], [id number] , [place] tel:[phone] [facility] [place] No Information 4 Jonah Craig. [address] [place] [address], [id number], [place]. tel:[phone] Referring Provider: Emir Espinal, [address] [place] [address], [id number]. tel:[phone] OFFICE VISIT, EST TELEMEDICINE [facility], [address] [place] [address], [id number] , [place] tel:[phone] [facility] Back Pain (chief complaint) Chronic pain syndromeOther intervertebra l disc degeneration, lumbar region, NOSPostlamine ctomy syndrome, not elsewhere classifiedPai n in right kneePain in left kneeDrug induced constipationL lupis term (current) use of opiate analgesicBody mass index [BMI] 27.0-27.9, adult 4 Jonah Craig. [address] [place] [address], [id number], [place]. tel:[phone] Consulting Provider: Lucas Talamantes, [facility] [address], [address], [place], [address]. tel:[phone] OFFICE/OUTPAT IENT VISIT, EST [facility], [address] [place] [address], [id number] , [place] tel:[phone] [facility] [place] Back Pain (chief complaint) Chronic pain syndromeOther intervertebra l disc degeneration, lumbar regionPostlam inectomy syndrome, not elsewhere classifiedPai n in right kneePain in left kneeDrug induced constipationL lupis term (current) use of opiate analgesicEnco unter for therapeutic drug level monitoringBod y mass index [BMI] 27.0-27.9, adult Sep- 4 Jonah Craig. [address] [place] [address], [id number], [place]. tel:[phone] Consulting Provider: Lucas Talamantes, [facility] [address], [address], [place], [address]. tel:[phone] ring Provider: Emir Espinal, [address] [place] [address], [id number]. tel:[phone] [facility], [address] [place] [address], [id number] , tel:[phone] [facility] ([facility] complaint) Chronic pain syndromeOther intervertebra l disc degeneration, lumbar regionPostlam inectomy syndrome, not elsewhere classifiedPai n in right kneePain in left kneeDrug induced constipationL lupis term (current) use of opiate analgesic 4 Jonah Craig. [address] [place] [address], [id number], [place]. tel:[phone] Consulting Provider: Lucas Talamantes, [facility] [address], [address], [place], [address]. tel:[phone] OFFICE VISIT, EST TELEMEDICINE [facility], [address] [place] [address], [id number] , [place] tel:[phone] [facility] [place] Back pain (chief complaint) Chronic pain syndromeOther intervertebra l disc degeneration, lumbar regionPostlam inectomy syndrome, not elsewhere classifiedPai n in right kneePain in left kneeDrug induced constipationL lupis term (current) use of opiate analgesic 4 Jonah Craig. [address] [place] [address], [id number], [place]. tel:[phone] Consulting Provider: Lucas Talamantes, [facility] [address], [address], [place], [address]. tel:[phone] Provider: Emir Espinal, [address] [place] [address], [id number]. tel:[phone] OFFICE/OUTPAT IENT VISIT, [facility], [address] [place] [address], [id number] , tel:[phone] [facility] [place] Back Pain (chief complaint) Chronic pain syndromeOther intervertebra l disc degeneration, lumbar regionPostlam inectomy syndrome, not elsewhere classifiedPai n in right kneePain in left kneeDrug induced constipationL lupis term (current) use of opiate analgesicEnco unter for therapeutic drug level monitoringCer vicalgia 4 Jonah Craig. [address] [place] [address], [id number], [place]. tel:[phone] Consulting [facility]: [facility] [address], [address], [address]. tel:[phone] Provider: Emir Espinal, [address] [place] [address], [id number]. tel:[phone] OFFICE VISIT, [facility], [address] [place] [address], [id number] , tel:[phone] [facility] [place] Back pain (chief complaint) Postlaminecto my syndrome, not elsewhere classifiedOth er intervertebra l disc degeneration, lumbar regionPain in right kneePain in left kneeDrug induced constipationL lupis term (current) use of opiate analgesicChro tommie pain syndrome 4 Jonah Pastorberoberto carlos Craig. [address] [place] [address], [id number], [place]. tel:[phone] Consulting Provider: Lucas Talamantes, [facility] [address], [address], [place], [address]. tel:[phone] [facility], [address] [place] [address], [id number] , [place] tel:[phone] [facility] [place] Pain in right kneePain in left knee June-0 4 Braeden Murcia. [address] [place] [address], [id number], [place]. tel:[phone] Referring Provider: Kiara Álvarez, [address] [place] [address], [id number]. tel:[phone] OFFICE VISIT, EST TELEMEDICINE [facility], [address] [place] [address], [id number] , [place] tel:[phone] [facility] [place] Back Pain (chief complaint) Chronic pain syndromePostl aminectomy syndrome, not elsewhere classifiedOth er intervertebra l disc degeneration, lumbar regionPain in right kneePain in left kneeDrug induced constipationL lupis term (current) use of opiate analgesic May-2 4 Jonah Craig. [address] [place] [address], [id number], [place]. tel:[phone] Consulting Provider: Lucas Talamantes, [facility] [address], [address], [place], [address]. tel:[phone] ring Provider: Emir Espinal, [address] [place] [address], [address]. tel:[phone] [facility], [address] [place] [address], [id number] , [place] tel:[phone] [facility] [place] Pain in left kneePain in right knee May- 4 Jonah Craig. [address] [place] [address], [id number], [place]. tel:[phone] [facility], [address] [place] [address], [id number] , [place] tel:[phone] [facility] [place] Pain in right kneePain in left knee May- 4 Braeden Murcia. [address] [place] [address], [id number], [place]. tel:[phone] Referring Provider: Kiara Álvarez, [address] [place] [address], [address]. tel:[phone] [facility], [address] [place] [address], [id number] , [place] tel:[phone] [facility] [place] Pain in left kneePain in right knee Apr-0 4 Mihir Field. [address] [place] [address], [id number], [place]. tel:[phone] [facility], [address] [place] [address], [id number] , [place] [phone] [facility] [place] Low back painOther chronic painArthrodes is status 4 Braeden Murcia. [address] [place] [address], [id number], [place]. tel:[phone] Referring Provider: Kiara Álvarez, [address] [place] [address], [id number]. tel:[phone] OFFICE/OUTPAT IENT VISIT, EST [facility], [address] [place] [address], [id number] , [place] tel:[phone] [facility] [place] Back Pain (chief complaint) Postlaminecto my syndrome, not elsewhere classifiedOth er intervertebra l disc degeneration, lumbar regionPain in right kneePain in left kneeDrug induced constipationL lupis term (current) use of opiate analgesicChro tommie pain syndromeEncou nter for therapeutic drug level monitoring 4 Emeka Cordova. [address] [place] [address], [id number], [place]. tel:[phone] Referring Provider: Emir Espinal, [address] [place] [address], [address]. tel:[phone] OFFICE VISIT, EST TELEMEDICINE [facility], [address] [place] [address], [id number] , [place] tel:[phone] [facility] [place] Back Pain (chief complaint) Postlaminecto my syndrome, not elsewhere classifiedOth er intervertebra l disc degeneration, lumbar regionPain in right kneePain in left kneeDrug induced constipationL lupis term (current) use of opiate analgesic 4 Jonah Overbeke Kiara. [address] [place] [address], [id number], [place]. tel:[phone] Consulting Provider: Lucas Talamantes, [facility] [address], [address], [place], [address]. tel:[phone] OFFICE VISIT, EST TELEMEDICINE [facility], [address] [place] [address], [id number] , [place] tel:[phone] [facility] [place] Back Pain (chief complaint) Postlaminecto my syndrome, not elsewhere classifiedOth er intervertebra l disc degeneration, lumbar regionPain in right kneePain in left kneeDrug induced constipationL lupis term (current) use of opiate analgesic 4 Jonah Pastorberoberto carlos Kiara. [address] [place] [address], [id number], [place]. tel:[phone] Consulting Provider: [facility] [address], [address], [place], [address]. tel:[phone] ring Provider: Emir Espinal, [address] [place] [address], [id number]. tel:[phone] [facility], [address] [place] [address], [id number] , [place] tel:[phone] [facility] [place] No Information 3 Jonah Craig. [address] [place] [address], [id number], [place]. tel:[phone] Referring Provider: Emir Espinal, [address] [place] [address], [address]. tel:[phone] OFFICE/OUTPAT IENT VISIT, EST [facility], [address] [place] [address], [id number] , [place] tel:[phone] [facility] [place] Back Pain (chief complaint) Postlaminecto my syndrome, not elsewhere classifiedOth er intervertebra l disc degeneration, lumbar regionPain in right kneePain in left kneeDrug induced constipationL lupis term (current) use of opiate analgesicEnco unter for therapeutic drug level monitoring 3 Van Overbeke Kiara. [address] [place], [place], [id number], [place]. tel:[phone] Consulting Provider: Lucas Talamantes, [facility] [address], [address], [place], [address]. tel:[phone] ring Provider: Emir Espinal, [address] [place] [address], [address]. tel:[phone] OFFICE VISIT, EST TELEMEDICINE [facility], [address] [place] [address], [id number] , [place] tel:[phone] [facility] [place] Back Pain (chief complaint) Postlaminecto my syndrome, not elsewhere classifiedOth er intervertebra l disc degeneration, lumbar regionPain in right kneePain in left kneeDrug induced constipationL lupis term (current) use of opiate analgesic 3 Van Overbeke Kiara. [address] [place], [place], [id number], [place]. tel:[phone] Consulting Provider: [facility] [address], [address], [place], [address]. tel:[phone] OFFICE VISIT, EST TELEMEDICINE [facility], [address] [place] [address], [id number] , [place] tel:[phone] [facility] [place] Back Pain (chief complaint) Postlaminecto my syndrome, not elsewhere classifiedOth er intervertebra l disc degeneration, lumbar regionPain in right kneePain in left kneeDrug induced constipationL lupis term (current) use of opiate analgesic 3 Van Overbeke Kiara. [address] [place], [place], [id number], [place]. tel:[phone] Consulting Provider: Lucas Talamantes, [facility] [address], [address], [place], [address]. tel:[phone] ring Provider: Emir Espinal, [address] [place] [address], [id number]. tel:[phone] [facility], [address] [place] [address], [id number] , [place] tel:[phone] [facility] [place] Pain in right kneePain in left knee 3 Braeden Murcia. [address] [place] [address], [id number], [place]. tel:[phone] Referring Provider: Emir Espinal, [address] [place] [address], [id number]. tel:[phone] [facility], [address] [place] [address], [id number] , [place] tel:[phone] [facility] [place] lumbago/kne es (chief complaint) Postlaminecto my syndrome, not elsewhere classifiedOth er intervertebra l disc degeneration, lumbar region 3 Melinda Zavala. [address] [place] [address], [id number], [place]. tel:[phone] Referring Provider: Emir Espinal, [address] [place] [address], [address]. tel:[phone] [facility], [address] [place] [address], [id number] , [place] tel:[phone] [facility] [place] No Information Sep- 3 Jonah Craig. [address] [place] [address], [id number], [place]. tel:[phone] OFFICE/OUTPAT IENT VISIT, EST [facility], [address] [place] [address], [id number] , [place] [phone] [facility] [place] Back Pain (chief complaint) Postlaminecto my syndrome, not elsewhere classifiedOth er intervertebra l disc degeneration, lumbar regionPain in right kneePain in left kneeDrug induced constipationL lupis term (current) use of opiate analgesicEnco unter for therapeutic drug level monitoring Sep-2 3 Jonah Craig. [address] [place] [address], [id number], [place]. tel:[phone] Consulting Provider: Lucas Talamantes, [facility] [address], [address], [place], [address]. tel:[phone] ring Provider: Emir Espinal, [address] [place] [address], [id number]. tel:[phone] OFFICE VISIT, EST TELEMEDICINE [facility], [address] [place] [address], [id number] , [place] tel:[phone] [facility] [place] Back Pain (chief complaint) Postlaminecto my syndrome, not elsewhere classifiedOth er intervertebra l disc degeneration, lumbar regionPain in right kneePain in left kneeDrug induced constipationL lupis term (current) use of opiate analgesic 3 Jonah Pastorberoberto carlos Craig. [address] [place] [address], [id number], [place]. tel:[phone] Consulting Provider: Lucas Talamantes, [facility] [address], [address], [place], [address]. tel:[phone] ring Provider: Emir Espinal, [address] [place] [address], [address]. tel:[phone] OFFICE VISIT, EST TELEMEDICINE [facility], [address] [place] [address], [id number] , [place] tel:[phone] [facility] [place] Back Pain (chief complaint) Postlaminecto my syndrome, not elsewhere classifiedOth er intervertebra l disc degeneration, lumbar regionSacroil iitis, not elsewhere classifiedPai n in right kneePain in left kneeOther muscle spasmChronic migraine without aura, intractable, without status migrainosusMa domitila depressive disorder, single episode, unspecifiedDr ug induced constipationL lupis term (current) use of opiate analgesic 3 Van Overbeke Kiara. [address] [place], [place], [id number], [place]. tel:[phone] Consulting Provider: Lucas Talamantes, [facility] [address], [address], [place], [address]. tel:[phone] [facility] Provider: Emir Espinal, [address] [place] [address], [id number]. tel:[phone] [facility], [address] [place] [address], [id number] , [place] tel:[phone] [facility] [place] No Information 3 Jonah Craig. [address] [place] [address], [id number], [place]. tel:[phone] Referring Provider: Emir Espinal, [address] [place] [address], [id number]. tel:[phone] OFFICE/OUTPAT IENT VISIT, EST [facility], [address] [place] [address], [id number] , [place] tel:[phone] [facility] Back Pain (chief complaint) Major depressive disorder, single episode, unspecifiedCh ronic migraine without aura, intractable, without status migrainosusDr ug induced constipationP ain in right kneePain in left kneeSacroilii tis, not elsewhere classifiedOth er intervertebra l disc degeneration, lumbar regionOther muscle spasmPostlami nectomy syndrome, not elsewhere classifiedLon g term (current) use of opiate analgesicEnco unter for therapeutic drug level monitoring 3 Jonah Craig. [address] [place] [address], [id number], [place]. tel:[phone] Consulting Provider: Lucas Talamantes, [facility] [address], [address], [place], [address]. tel:[phone] ring Provider: Emir Espinal, [address] [place] [address], [id number]. tel:[phone] [facility], [address] [place] [address], [id number] , [place] tel:[phone] [facility] [place] Pain in right kneePain in left knee 3 Braeden Murcia. [address] [place] [address], [id number], [place]. tel:[phone] Referring Provider: Emir Espinal, [address] [place] [address], [id number]. tel:[phone] OFFICE VISIT, [facility] TELEMEDICINE [facility], [address] [place] [address], [id number] , [place] tel:[phone] [facility] [place] Back pain (chief complaint) Major depressive disorder, single episode, unspecifiedCh ronic migraine without aura, intractable, without status migrainosusSa croiliitis, not elsewhere classifiedOth er intervertebra l disc degeneration, lumbar regionOther muscle spasmPostlami nectomy syndrome, not elsewhere classifiedLon g term (current) use of opiate analgesicPain in right kneePain in left kneeDrug induced constipation 3 Jonah Craig. [address] [place] [address], [id number], [place]. tel:[phone] Consulting Provider: Lucas Talamantes [facility] [address], [address], [place], [address]. tel:[phone] ring Provider: Emir Espinal, [address] [place] [address], [id number]. tel:[phone] OFFICE VISIT, [facility] TELEMEDICINE [facility], [address] [place] [address], [id number] , [place] tel:[phone] [facility] Back Pain (chief complaint) Major depressive disorder, single episode, unspecifiedCh ronic migraine without aura, intractable, without status migrainosusSa croiliitis, not elsewhere classifiedOth er intervertebra l disc degeneration, lumbar regionOther muscle spasmPostlami nectomy syndrome, not elsewhere classifiedLon g term (current) use of opiate analgesic 3 Jonah Pastorberoberto carlos Kiara. [address] [place] [address], [id number], [place]. tel:[phone] Consulting Provider: Lucas Talamantes [facility] [address], [address], [place], [address]. tel:[phone] OFFICE/OUTPAT IENT VISIT, [facility], [address] [place], [place], [id number] , [place] [phone] [facility] [place] back pain (chief complaint) Major depressive disorder, single episode, unspecifiedCh ronic migraine without aura, intractable, without status migrainosusSa croiliitis, not elsewhere classifiedOth er intervertebra l disc degeneration, lumbar regionOther muscle spasmPostlami nectomy syndrome, not elsewhere classifiedLon g term (current) use of opiate analgesicEnco unter for therapeutic drug level monitoring 3 Jonah Pastorberoberto carlos Craig. [address] [place] [address], [id number], [place]. tel:[phone] Consulting Provider: Lucas Talamantes, [facility] [address], [address], [place], [address]. tel:[phone] ring Provider: Emir Espinal, [address] [place] [address], [id number]. tel:[phone] [facility], [address] [place] [address], [id number] , [place] [phone] [facility] [place] No Information 3 Jonah Craig. [address] [place] [address], [id number], [place]. tel:[phone] OFFICE VISIT, EST TELEMEDICINE [facility], [address] [place] [address], [id number] , [place] [phone] [facility] [place] Back Pain (chief complaint) Major depressive disorder, single episode, unspecifiedCh ronic migraine without aura, intractable, without status migrainosusSa croiliitis, not elsewhere classifiedOth er intervertebra l disc degeneration, lumbar regionPostlam inectomy syndrome, not elsewhere classifiedLon g term (current) use of opiate analgesicOthe r muscle spasm 3 Jonah Overbeke Kiara. [address] [place] [address], [id number], [place]. tel:[phone] Consulting Provider: Lucas Talamantes [facility] [address], [address], [place], [address]. tel:[phone] OFFICE VISIT, EST TELEMEDICINE [facility], [address] [place] [address], [id number] , [place] tel:[phone] [facility] Back Pain (chief complaint) Other intervertebra l disc degeneration, lumbar regionSacroil iitis, not elsewhere classifiedChr onic migraine without aura, intractable, without status migrainosusMa domitila depressive disorder, single episode, unspecifiedOt her muscle spasmPostlami nectomy syndrome, not elsewhere classifiedLon g term (current) use of opiate analgesic 3 Jonah Overbeke Kiara. [address] [place], [place], [id number], [place]. tel:[phone] Consulting Provider: Lucas Talamantes, [facility] [address], [address], [place], [address]. [phone] OFFICE/OUTPAT IENT VISIT, EST [facility], [address] [place] [address], [id number] , [place] tel:[phone] [facility] [place] Back pain (chief complaint) Major depressive disorder, single episode, unspecifiedCh ronic migraine without aura, intractable, without status migrainosusSa croiliitis, not elsewhere classifiedOth er intervertebra l disc degeneration, lumbar regionOther muscle spasmPostlami nectomy syndrome, not elsewhere classifiedLon g term (current) use of opiate analgesicEnco unter for therapeutic drug level monitoring 2 Jonah Craig. [address] [place] [address], [id number], [place]. tel:[phone] Consulting Provider: Lucas Talamantes, [facility] [address], [address], [place], [address]. [phone] ring Provider: Emir Espinal, [address] [place] [address], [id number]. tel:[phone] [facility], [address] [place] [address], [id number] , [place] [phone] [facility] [place] No Information 2 Jonah Craig. [address] [place] [address], [id number], [place]. tel:[phone] Referring Provider: Emir Espinal, [address] [place] [address], [id number]. tel:[phone] OFFICE VISIT, [facility] TELEMEDICINE [facility], [address] [place] [address], [id number] , [place] tel:[phone] [facility] [place] Back pain (chief complaint) Major depressive disorder, single episode, unspecifiedCh ronic migraine without aura, intractable, without status migrainosusSa croiliitis, not elsewhere classifiedOth er intervertebra l disc degeneration, lumbar regionOther muscle spasmPostlami nectomy syndrome, not elsewhere classifiedLon g term (current) use of opiate analgesic Nov-3 2 Jonah Guillen Kiara. [address] [place] [address], [id number], [place]. tel:[phone] Consulting Provider: Lucas Talamantes [facility] [address], [address], [place], [address]. tel:[phone] ring Provider: Emir Espinal, [address] [place] [address], [id number]. tel:[phone] OFFICE VISIT, [facility] TELEMEDICINE [facility], [address] [place] [address], [id number] , [place] tel:[phone] [facility] [place] Back pain (chief complaint) Major depressive disorder, single episode, unspecifiedCh ronic migraine without aura, intractable, without status migrainosusSa croiliitis, not elsewhere classifiedOth er intervertebra l disc degeneration, lumbar regionPostlam inectomy syndrome, not elsewhere classifiedLon g term (current) use of opiate analgesicOthe r muscle spasm Oct- 2 Jonah Guillen Kiara. [address] [place] [address], [id number], [place]. tel:[phone] Consulting Provider: Lucas Talamantes [facility] [address], [address], [place], [address]. tel:[phone] OFFICE/OUTPAT IENT VISIT, [facility], [address] [place] [address], [id number] , [place] tel:[phone] [facility] Back pain (chief complaint) Major depressive disorder, single episode, unspecifiedCh ronic migraine without aura, intractable, without status migrainosusSa croiliitis, not elsewhere classifiedOth er intervertebra l disc degeneration, lumbar regionPostlam inectomy syndrome, not elsewhere classifiedLon g term (current) use of opiate analgesicEnco unter for therapeutic drug level monitoring Sep-2 2 Van Overbeke Kiara. [address] [place] [address], [id number], [place]. tel:[phone] Consulting Provider: Lucas Talamantes [facility] [address], [address], [place], [address]. tel:[phone] ring Provider: Emir Espinal, [address] [place] [address], [id number]. tel:[phone] [facility], [address] [place] [address], [id number] , [place] tel:[phone] [facility] [place] No Information Sep-2 2 Van Overbeke Kiara. [address] [place] [address], [id number], [place]. tel:[phone] OFFICE VISIT, EST TELEMEDICINE [facility], [address] [place] [address], [id number] , [place] [phone] [facility] Back Pain (chief complaint) Major depressive disorder, single episode, unspecifiedCh ronic migraine without aura, intractable, without status migrainosusSa croiliitis, not elsewhere classifiedOth er intervertebra l disc degeneration, lumbar regionPostlam inectomy syndrome, not elsewhere classifiedLon g term (current) use of opiate analgesic Sep-0 2 Keri Campos. [address], [place], [place], [id number], [place]. tel:[phone] Consulting Provider: Lucas Talamantes [facility] [address], [address], [place], [address]. tel:[phone] ring Provider: Emir Espinal, [address] [place] [address], [id number]. tel:[phone] OFFICE VISIT, EST TELEMEDICINE [facility], [address] [place] [address], [id number] , [place] tel:[phone] [facility] [place] Back pain (chief complaint) Chronic migraine without aura, intractable, without status migrainosusSa croiliitis, not elsewhere classifiedOth er intervertebra l disc degeneration, lumbar regionPostlam inectomy syndrome, not elsewhere classifiedLon g term (current) use of opiate analgesicMajo r depressive disorder, single episode, unspecified 2 Van Overbeke Kiara. [address] [place] [address], [id number], [place]. tel:[phone] [facility] [address], [address], [place], [address]. tel:[phone] ring Provider: Emir Espinal, [address] [place] [address], [id number]. tel:[phone] OFFICE VISIT, EST TELEMEDICINE [facility], [address] [place] [address], [id number] , [place] tel:[phone] [facility] [place] back pain (chief complaint) Chronic migraine without aura, intractable, without status migrainosusSa croiliitis, not elsewhere classifiedOth er intervertebra l disc degeneration, lumbar regionPostlam inectomy syndrome, not elsewhere classifiedLon g term (current) use of opiate analgesic 2 Van Overbeke Kiara. [address] [place], [place], [id number], [place]. tel:[phone] Consulting [facility]: [facility] [address], [address], [place], [address]. tel:[phone] [facility], [address] [place] [address], [id number] , [place] tel:[phone] [facility] [place] No Information 2 Van Overbeke Kiara. [address] [place] [address], [id number], [place]. tel:[phone] Referring Provider: Emir Espinal, [address] [place] [address], [id number]. tel:[phone] OFFICE/OUTPAT IENT VISIT, [facility], [address] [place] [address], [id number] , [place] tel:[phone] [facility] Back Pain (chief complaint) Chronic migraine without aura, intractable, without status migrainosusSa croiliitis, not elsewhere classifiedOth er intervertebra l disc degeneration, lumbar regionPostlam inectomy syndrome, not elsewhere classifiedLon g term (current) use of opiate analgesicEnco unter for therapeutic drug level monitoring 2 Jonah Overlorna Kiara. [address] [place] [address], [id number], [place]. tel:[phone] Consulting Provider: Lucas Talamantes, [facility] [address], [address], [place], [address]. tel:[phone] ring Provider: Emir Espinal, [address] [place] [address], [id number]. tel:[phone] OFFICE VISIT, [facility] TELEMEDICINE [facility], [address] [place] [address], [id number] , [place] tel:[phone] [facility] [place] Back Pain (chief complaint) Chronic migraine without aura, intractable, without status migrainosusSa croiliitis, not elsewhere classifiedOth er intervertebra l disc degeneration, lumbar regionPostlam inectomy syndrome, not elsewhere classifiedLon g term (current) use of opiate analgesic 2 Jonah Overbeke Kiara. [address] [place] [address], [id number], [place]. tel:[phone] Consulting Provider: Lucas Talamantes, [facility] [address], [address], [place], [address]. tel:[phone] OFFICE VISIT, EST TELEMEDICINE [facility], [address] [place] [address], [id number] , [place] [phone] [facility] [place] Back Pain (chief complaint)H eadache (chief complaint) Chronic migraine without aura, intractable, without status migrainosusSa croiliitis, not elsewhere classifiedOth er intervertebra l disc degeneration, lumbar regionPostlam inectomy syndrome, not elsewhere classifiedLon g term (current) use of opiate analgesic Apr-2 2 Van Overbeke Kiara. [address] [place] [address], [id number], [place]. tel:[phone] Consulting Provider: Lucas Talamantes, [facility] [address], [address], [place], [address]. tel:[phone] [facility], [address] [place] [address], [id number] , [phone] [facility] [place] Chronic migraine without aura, intractable, without status migrainosus Apr-0 2 Ney Quinones. [address] [place] [address], [id number], [place]. tel:[phone] Referring Provider: Emir Espinal, [address] [place] [address], [id number]. tel:[phone] OFFICE VISIT, EST TELEMEDICINE [facility], [address] [place] [address], [id number] , [place] [phone] [facility] Back Pain (chief complaint) Chronic migraine without aura, intractable, without status migrainosusOt her intervertebra l disc degeneration, lumbar regionLong term (current) use of opiate analgesicPost laminectomy syndrome, not elsewhere classifiedSac roiliitis, not elsewhere classified Mar- 2 Jonah Guillen Kiara. [address] [place] [address], [id number], [place]. tel:[phone] Consulting Provider: Lucas Talamantes, [facility] [address], [address], [place], [address]. tel:[phone] ring Provider: Emir Espinal, [address] [place] [address], [address]. tel:[phone] [facility], [address] [place] [address], [id number] , [place] tel:[phone] [facility] [place] No Information 2 Jonah Craig. [address] [place] [address], [id number], [place]. tel:[phone] OFFICE/OUTPAT IENT VISIT, EST [facility], [address] [place] [address], [id number] , [place] tel:[phone] [facility] [place] Back Pain (chief complaint) Other intervertebra l disc degeneration, lumbar regionLong term (current) use of opiate analgesicPost laminectomy syndrome, not elsewhere classifiedSac roiliitis, not elsewhere classifiedEnc ounter for therapeutic drug level monitoringEnc ounter for screening for other disorderChron ic migraine without aura, intractable, without status migrainosus 2 Jonah Craig. [address] [place] [address], [id number], [place]. tel:[phone] Consulting [facility]: [facility] [address], [address], [place], [address]. tel:[phone] ring Provider: Emir Espinal, [address] [place] [address], [id number]. tel:[phone] OFFICE VISIT, EST TELEMEDICINE [facility], [address] [place] [address], [id number] , [place] tel:[phone] [facility] [place] Back Pain (chief complaint) Other intervertebra l disc degeneration, lumbar regionLong term (current) use of opiate analgesicPost laminectomy syndrome, not elsewhere classifiedSac roiliitis, not elsewhere classified 2 Jonah Craig. [address] [place] [address], [id number], [place]. tel:[phone] Consulting Provider: [facility] [address], [address], [place], [address]. tel:[phone] OFFICE VISIT, EST TELEMEDICINE [facility], [address] [place] [address], [id number] , [place] tel:[phone] [facility] [place] Back Pain (chief complaint) Other intervertebra l disc degeneration, lumbar regionLong term (current) use of opiate analgesicPost laminectomy syndrome, not elsewhere classifiedSac roiliitis, not elsewhere classified 1 Van Overbeke Kiara. [address] [place] [address], [id number], [place]. tel:[phone] Consulting Provider: Lucas Talamantes, [facility] [address], [address], [place], [address]. tel:[phone] OFFICE VISIT, EST TELEMEDICINE [facility], [address] [place] [address], [id number] , [place] [phone] [facility] [place] Back Pain (chief complaint) Other intervertebra l disc degeneration, lumbar regionLong term (current) use of opiate analgesicPost laminectomy syndrome, not elsewhere classifiedSac roiliitis, not elsewhere classified 1 Jonah Overberoberto carlos Kiara. [address] [place] [address], [id number], [place]. tel:[phone] Consulting Provider: Lucas Talamantes, [facility] [address], [address], [place], [address]. tel:[phone] ring Provider: Emir Espinal, [address] [place] [address], [address]. tel:[phone] OFFICE VISIT, EST TELEMEDICINE [facility], [address] [place] [address], [id number] , [place] tel:[phone] [facility] [place] Back Pain (chief complaint) Other intervertebra l disc degeneration, lumbar regionLong term (current) use of opiate analgesicPost laminectomy syndrome, not elsewhere classifiedSac roiliitis, not elsewhere classified 1 Van Overbeke Kiara. [address] [place], [place], [id number], [place]. tel:[phone] Consulting Provider: Lucas Talamantes, [facility] [address], [address], [place], [address]. tel:[phone] OFFICE/OUTPAT IENT VISIT, EST [facility], [address] [place] [address], [id number] , [place] tel:[phone] [facility] Back Pain (chief complaint) Other intervertebra l disc degeneration, lumbar regionLong term (current) use of opiate analgesicPost laminectomy syndrome, not elsewhere classifiedSac roiliitis, not elsewhere classifiedEnc ounter for therapeutic drug level monitoring Oct- 1 Jonah Pastorberoberto carlos Craig. [address] [place], [place], [id number], [place]. tel:[phone] Consulting Provider: Lucas Talamantes, [facility] [address], [address], [place], [address]. tel:[phone] ring Provider: Emir Espinal, [address] [place] [address], [id number]. tel:[phone] [facility], [address] [place] [address], [id number] , [place] tel:[phone] [facility] Encounter for therapeutic drug level monitoringLon g term (current) use of opiate analgesic Oct- 1 Jonah Pastorberoberto carlos Kiara. [address] [place], [place], [id number], [place]. tel:[phone] Referring Provider: Emir Espinal, [address] [place] [address], [id number]. tel:[phone] OFFICE VISIT, EST TELEMEDICINE [facility], [address] [place] [address], [id number] , [place] tel:[phone] [facility] Back Pain (chief complaint) remote computer terminal operator (current) use of opiate analgesicPost laminectomy syndrome, not elsewhere classifiedOth er intervertebra l disc degeneration, lumbar region 1 Ney Quinones. [address] [place], [place], [id number], [place]. tel:[phone] Consulting Provider: Lucas Talamantes, [facility] [address] Prof Mercado [address] [address], [place], [address]. tel:[phone] ring Provider: Emir Espinal, [address] [place] [address], [address]. tel:[phone] OFFICE VISIT, EST TELEMEDICINE [facility], [address] [place] [address], [id number] , [place] tel:[phone] [facility] Back Pain (chief complaint) long-term (current) use of opiate analgesicPost laminectomy syndrome, not elsewhere classifiedSac roiliitis, not elsewhere classifiedOth er intervertebra l disc degeneration, lumbosacral region 1 Jonah Craig. [address] [place] [address], [id number], [place]. tel:[phone] Consulting Provider: Lucas Talamantes, [address] Prof [address] [address], [place], [address]. tel:[phone] ring Provider: Emir Espinal, [address] [place] [address], [address]. tel:[phone] [facility], [address] [place] [address], [id number] , [place] tel:[phone] [facility] Encounter for therapeutic drug level monitoringLon g term (current) use of opiate analgesic 1 Jonah Craig. [address] [place] [address], [id number], [place]. tel:[phone] Referring Provider: Emir Espinal, [address] [place] [address], [address]. tel:[phone] OFFICE/OUTPAT IENT VISIT, EST [facility], [address] [place] [address], [id number] , [place] tel:[phone] [facility] Back Pain (chief complaint) long-term (current) use of opiate analgesicPost laminectomy syndrome, not elsewhere classifiedSac roiliitis, not elsewhere classifiedOth er intervertebra l disc degeneration, [facility] drug level monitoring 1 Jonah Craig. [address] [place] [address], [id number], [place]. tel:[phone] Consulting Provider: Lucas Talamantes, [address] [address], [place], [address]. tel:[phone] ring Provider: Emir Espinal, [address] [place] [address], [address]. tel:[phone] OFFICE VISIT, EST TELEMEDICINE [facility], [address] [place] [address], [id number] , [place] tel:[phone] [facility] Back Pain (chief complaint) remote computer terminal operator (current) use of opiate analgesicPost laminectomy syndrome, not elsewhere classifiedSac roiliitis, not elsewhere classifiedOth er intervertebra l disc degeneration, lumbosacral region 1 Jonah Craig. [address] [place] [address], [id number], [place]. tel:[phone] Consulting Provider: Lucas Talamantes[address] E Prof Mercado [address] [address], [place], [address]. tel:[phone] ring Provider: Emir Espinal, [address] [place] [address], [address]. tel:[phone] OFFICE VISIT, EST TELEMEDICINE [facility], [address] [place] [address], [id number] , [place] tel:[phone] [facility] Back Pain (chief complaint) Postlaminecto my syndrome, not elsewhere classifiedSac roiliitis, not elsewhere classifiedOth er intervertebra l disc degeneration, lumbosacral regionLong term (current) use of opiate analgesic May- 1 Jonah Craig. [address] [place] [address], [id number], [place]. tel:[phone] Consulting Provider: Lucas Talamantes, [address] [facility], [place], [address]. tel:[phone] ring Provider: Emir Espinal, [address] [place] [address], [address]. tel:[phone] OFFICE VISIT, EST TELEMEDICINE [facility], [address] [place] [address], [id number] , [place] tel:[phone] [facility] Back Pain (chief complaint) Postlaminecto my syndrome, not elsewhere classifiedSac roiliitis, not elsewhere classifiedOth er intervertebra l disc degeneration, lumbosacral regionLong term (current) use of opiate analgesic Apr-3 1 Jonah Pastorberoberto carlos Craig. [address] [place] [address], [id number], [place]. tel:[phone] Consulting Provider: Lucas Talamantes, [address] [address], [place], [address]. tel:[phone] ring Provider: Emir Espinal, [address] [place] [address], [address]. tel:[phone] OFFICE VISIT, EST TELEMEDICINE [facility], [address] [place] [address], [id number] , [place] tel:[phone] [facility] Back Pain (chief complaint) Postlaminecto my syndrome, not elsewhere classifiedSac roiliitis, not elsewhere classifiedOth er intervertebra l disc degeneration, lumbosacral regionLong term (current) use of opiate analgesic Mar- 1 Jonah Pastorberoberto carlos Kiara. [address] [place] [address], [id number], [place]. tel:[phone] Consulting Provider: Lucas Talamantes, [address] Prof Mercado [address] [place] [address], [place], [address]. tel:[phone] ring Provider: Emir Espinal, [address] [place] [address], [address]. tel:[phone] OFFICE VISIT, EST TELEMEDICINE [facility], [address] [place] [address], [id number] , [place] tel:[phone] [facility] Back Pain (chief complaint) long-term (current) use of opiate analgesicPost laminectomy syndrome, not elsewhere classifiedSac roiliitis, not elsewhere classifiedOth er intervertebra l disc degeneration, lumbosacral region 1 Van Overbeke Kiara. [address] [place] [address], [id number], [place]. tel:[phone] Consulting Provider: Lucas Talamantes [address] Prof Mercado [address], [address]. tel:[phone] ring Provider: Emir Espinal, [address] [place] [address], [address]. tel:[phone] OFFICE VISIT, EST TELEMEDICINE [facility], [address] [place] [address], [id number] , [place] tel:[phone] [facility] Back Pain (chief complaint) long-term (current) use of opiate analgesicPost laminectomy syndrome, not elsewhere classifiedSac roiliitis, not elsewhere classifiedOth er intervertebra l disc degeneration, lumbosacral region 0 Van Overbeke Kiara. [address] [place] [address], [id number], [place]. tel:[phone] Consulting Provider: Lucas Talamantes, [address] [address], [place], [address]. tel:[phone] ring Provider: Emir Espinal, [address] [place] [address], [address]. tel:[phone] OFFICE VISIT, EST TELEMEDICINE [facility], [address] [place] [address], [id number] , [place] tel:[phone] [facility] Back Pain (chief complaint) remote computer terminal operator (current) use of opiate analgesicPost laminectomy syndrome, not elsewhere classifiedSac roiliitis, not elsewhere classifiedOth er intervertebra l disc degeneration, lumbosacral region Dec-0 0 Van Overbeke Kiara. [address] [place] [address], [id number], [place]. tel:[phone] Referring Provider: Emir Espinal, [address] [place] [address], [address]. tel:[phone] OFFICE VISIT, [facility] TELEMEDICINE [facility], [address] [place] [address], [id number] , [place] [phone] [facility] Back Pain (chief complaint) remote computer terminal operator (current) use of opiate analgesicPost laminectomy syndrome, not elsewhere classifiedSac roiliitis, not elsewhere classifiedOth er intervertebra l disc degeneration, lumbosacral region Oct- 0 Van Overbeke Kiara. [address] [place] [address], [id number], [place]. tel:[phone] Referring Provider: Emir Espinal, [address] [place] [address], [address]. tel:[phone] OFFICE VISIT, [facility], [address] [place] [address], [id number] , [place] [phone] [facility] Back Pain (chief complaint) long-term (current) use of opiate analgesicPost laminectomy syndrome, not elsewhere classifiedSac roiliitis, not elsewhere classifiedOth er intervertebra l disc degeneration, lumbosacral region Sep-2 0 Van Overbeke Kiara. [address] [place] [address], [id number], [place]. tel:[phone] Referring Provider: Emir Espinal, [address] [place] [address], [address]. tel:[phone] OFFICE/OUTPAT IENT VISIT, [facility], [address] [place] [address], [id number] , [place] tel:[phone] [facility] Back Pain (chief complaint) long-term (current) use of opiate analgesicPost laminectomy syndrome, not elsewhere classifiedSac roiliitis, not elsewhere classifiedOth er intervertebra l disc degeneration, lumbosacral region 0 Jonah Craig. [address] [place] [address], [id number], [place]. tel:[phone] Referring Provider: Emir Espinal, [address] [place] [address], [address]. 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 [address] [place] [address], [id number], [place]. tel:[phone] Consulting Provider: Lucas Talamantes [facility], [facility] [place] [address] [facility] 675 [facility] Marlon [facility], [place], [address]. tel:[phone] ring Provider: Emir Espinal, [address] [place] [address], [address]. tel:[phone] OFFICE VISIT, [facility], [address] [place] [address], [id number] , [place] tel:[phone] [facility] Back Pain (chief complaint) long-term (current) use of opiate analgesicPost laminectomy syndrome, not elsewhere classifiedSac roiliitis, not elsewhere classifiedOth er intervertebra l disc degeneration, lumbosacral region 0 Jonah Craig. [address] [place] [address], [id number], [place]. tel:[phone] Referring Provider: Emir Espinal, [address] [place] [address], [address]. tel:[phone] OFFICE VISIT, EST TELEMEDICINE [facility], [address] [place] [address], [id number] , [place] tel:[phone] [facility] Back Pain (chief complaint) long-term (current) use of opiate analgesicPost laminectomy syndrome, not elsewhere classifiedSac roiliitis, not elsewhere classifiedOth er intervertebra l disc degeneration, lumbosacral region May-2 0-202 0 Van Overbeke Kiara. [address] [place] [address], [id number], [place]. tel:[phone] Consulting Provider: Lucas AU, [address] [place] [facility], [place], [address]. tel:[phone] ring Provider: Emir Espinal, [address] [place] [address], [address]. tel:[phone] OFFICE VISIT, EST TELEMEDICINE [facility], [address] [place] [address], [id number] , [place] tel:[phone] [facility] Back Pain (chief complaint) long-term (current) use of opiate analgesicPost laminectomy syndrome, not elsewhere classifiedSac roiliitis, not elsewhere classifiedOth er intervertebra l disc degeneration, lumbosacral region Apr-2 2- 0 Jonah Pastorberoberto carlos Kiara. [address] [place] [address], [id number], [place]. tel:[phone] Consulting Provider: Lucas AU, [address] [place] [address], [place], [address]. tel:[phone] ring Provider: Emir Espinal, [address] [place] [address], [address]. 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 [address] [place], [place], [id number], [place]. tel:[phone] Consulting Provider: Lucas AU, [address] Prof Mercado [facility] [address] [address], [place], [address]. tel:[phone] ring Provider: Emir Espinal, [address] [place] [address], [address]. tel:[phone] OFFICE/OUTPAT IENT VISIT, [facility], [address] [place] [address], [id number] , [place] tel:[phone] [facility] Back Pain (chief complaint) remote computer terminal operator (current) use of opiate analgesicEnco unter for therapeutic drug level monitoringPos tlaminectomy syndrome, not elsewhere classifiedSac roiliitis, not elsewhere classifiedOth er intervertebra l disc degeneration, lumbosacral region 0 Jonah Overberoberto carlos Huertase. [address] [place] [address], [id number], [place]. tel:[phone] Consulting Provider: Lucas AU, [address] Prof Mercado [facility] [address] [address], [place], [address]. tel:[phone] ring Provider: Emir Espinal, [address] [place] [address], [address]. 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 [address] [place] [address], [id number], [place]. tel:[phone] Consulting Provider: Lucas AU, [address], [place], [address]. tel:[phone] ring Provider: Emir Espinal, [address] [place] [address], [address]. tel:[phone] OFFICE/OUTPAT IENT VISIT, [facility], [address] [place] [address], [id number] , [place] [phone] [facility] Back Pain (chief complaint) long-term (current) use of opiate analgesicSacr oiliitis, not elsewhere classifiedOth er intervertebra l disc degeneration, lumbosacral regionPostlam inectomy syndrome, not elsewhere classified 0 Jonah Craig. [address] [place] [address], [id number], [place]. tel:[phone] Consulting Provider: Lucas AU, [address] [place] [address], [place], [address]. tel:[phone] ring Provider: Emir Espinal, [address] [place] [address], [address]. tel:[phone] OFFICE/OUTPAT IENT VISIT, [facility], [address] [place] [address], [id number] , [place] tel:[phone] [facility] Back Pain (chief complaint) long-term (current) use of opiate analgesicLow back painSacroilii tis, not elsewhere classifiedPos tlaminectomy syndrome, not elsewhere classifiedOth er intervertebra l disc degeneration, lumbosacral region 9 Jonah Craig. [address] [place] [address], [id number], [place]. tel:[phone] Consulting Provider: Lucas AU, [facility] [address] [place] [address], [place], [address]. tel:[phone] ring Provider: Emir Espinal [address] [place], [address]. tel:[phone] OFFICE/OUTPAT IENT VISIT, EST [facility], [address] [place] [address], [id number] , [place] tel:[phone] [facility] Back Pain (chief complaint) remote computer terminal operator (current) use of opiate analgesicLow back painSacroilii tis, not elsewhere classifiedOth er intervertebra l disc degeneration, lumbosacral regionPostlam inectomy syndrome, not elsewhere classified Jonah Pastorberoberto carlos Craig. [address] [place], [place], [id number], [place]. tel:[phone] Consulting Provider: Lucas AU, [address], [facility]. tel:[phone] ring Provider: Emir Espinal, [address] [place] [address], [address]. tel:[phone] OFFICE/OUTPAT IENT VISIT, EST [facility], [address] [place] [address], [id number] , [place] tel:[phone] [facility] Back Pain (chief complaint) Postlaminecto my syndrome, not elsewhere classifiedOth er intervertebra l disc degeneration, lumbosacral regionSacroil iitis, not elsewhere classifiedLow back painLong term (current) use of opiate analgesicEnco unter for therapeutic drug level monitoring Jonah Overberoberto carlos Kiara. [address] [place], [place], [id number], [place]. tel:[phone] Consulting Provider: Lucas AU, [address] Carmel Mercado [address], [address]. tel:[phone] ring Provider: Emir Espinal, [address] [place], [address]. tel:[phone] OFFICE/OUTPAT IENT VISIT, EST [facility], [address] [place], [place], [id number] , [place] tel:[phone] [facility] Back Pain (chief complaint) Postlaminecto my syndrome, not elsewhere classifiedOth er intervertebra l disc degeneration, lumbosacral regionSacroil iitis, not elsewhere classifiedLow back painLong term (current) use of opiate analgesic Aug-3 9 Van Overbeke Kiara. [address] [place], [place], [id number], [place]. tel:[phone] Consulting Provider: Lucas AU, [address] [address], [place], [address]. [phone] ring Provider: Emir Espinal, [address] [place] [address], [address]. [phone] OFFICE/OUTPAT IENT VISIT, EST [facility], [address] [place] [address], [id number] , [place] tel:[phone] [facility] Back Pain (chief complaint) Postlaminecto my syndrome, not elsewhere classifiedOth er intervertebra l disc degeneration, lumbosacral regionSacroil iitis, not elsewhere classifiedLow back painLong term (current) use of opiate analgesic Aug-0 9 Van Overbeke Kiara. [address] [place] [address], [id number], [place]. tel:[phone] Consulting Provider: Lucas AU, [facility] [address] [address], [place], [address]. tel:[phone] ring Provider: mEir Espinal, [address] [place] [address], [address]. tel:[phone] OFFICE/OUTPAT IENT VISIT, EST [facility], [address] [place] [address], [id number] , [place] [phone] [facility] [place] Back Pain (chief complaint) Postlaminecto my syndrome, not elsewhere classifiedOth er intervertebra l disc degeneration, lumbosacral regionSacroil iitis, not elsewhere classifiedLow back painLong term (current) use of opiate analgesic Jonah Craig. [address] [place] [address], [id number], [place]. tel:[phone] Consulting Provider: Lucas AU, [address] [address], [place], [address]. tel:[phone] ring Provider: Emir Espinal, [address] [place] [address], [address]. tel:[phone] OFFICE/OUTPAT IENT VISIT, [facility], [address] [place] [address], [id number] , tel:[phone] [facility] Back Pain (chief complaint) Postlaminecto my syndrome, not elsewhere classifiedOth er intervertebra l disc degeneration, lumbosacral regionSacroil iitis, not elsewhere classifiedLow back painLong term (current) use of opiate analgesicEnco unter for therapeutic drug level monitoring Jonah Craig. [address] [place] [address], [id number], [place]. tel:[phone] Consulting Provider: Lucas AU, [address] [address], [place], [address]. tel:[phone] ring Provider: Emir Espinal, [address] [place] [address], [address]. tel:[phone] OFFICE/OUTPAT IENT VISIT, EST [facility], [address] [place] [address], [id number] , [place] tel:[phone] [facility] Back Pain (chief complaint) Postlaminecto my syndrome, not elsewhere classifiedOth er intervertebra l disc degeneration, lumbosacral regionSacroil iitis, not elsewhere classifiedLow back painLong term (current) use of opiate analgesic Miguel-0 2-201 9 Van Overbeke Kiara. [address] [place] [address], [id number], [place]. tel:[phone] Consulting Provider: Lucas AU, [address] [place] [address], [place], [address]. tel:[phone] ring Provider: Emir Espinal, [address] [place] [address], [address]. tel:[phone] OFFICE/OUTPAT IENT VISIT, [facility], [address] [place] [address], [id number] , [place] [phone] [facility] Back Pain (chief complaint) Sacroiliitis, not elsewhere classifiedPos tlaminectomy syndrome, not elsewhere classifiedOth er intervertebra l disc degeneration, lumbosacral regionLow back painLong term (current) use of opiate analgesic Dec-0 3201 8 Van Overbeke Kiara. [address] [place] [address], [id number], [place]. tel:[phone] Consulting Provider: Lucas AU, [address] [place] [address], [place], [address]. tel:[phone] ring Provider: Emir Espinal, [address] [place] [address], [address]. tel:[phone] OFFICE/OUTPAT IENT VISIT, EST [facility], [address] [place] [address], [id number] , [place] tel:[phone] [facility] Back Pain (chief complaint) Sacroiliitis, not elsewhere classifiedPos tlaminectomy syndrome, not elsewhere classifiedOth er intervertebra l disc degeneration, lumbosacral regionLow back pain Nov-0 1-201 8 Van Overbeke Kiara. [address] [place] [address], [id number], [place]. tel:[phone] Consulting Provider: Lucas AU, [address] [facility], [place], [address]. tel:[phone] ring Provider: Emir Espinal, [address] [place] [address], [address]. tel:[phone] OFFICE/OUTPAT IENT VISIT, [facility], [address] [place] [address], [id number] , [place] tel:[phone] [facility] Back Pain (chief complaint) Sacroiliitis, not elsewhere classifiedPos tlaminectomy syndrome, not elsewhere classifiedOth er intervertebra l disc degeneration, lumbosacral regionLow back pain Nov-0 1 8 Van Overbeke Kiara. [address] [place] [address], [id number], [place]. tel:[phone] Consulting Provider: Lucas AU, [address] [place] [address], [place], [address]. tel:[phone] ring Provider: Emir Espinal, [address] [place] [address], [address]. tel:[phone] OFFICE/OUTPAT IENT VISIT, [facility], [address] [place] [address], [id number] , [place] [phone] [facility] Back Pain (chief complaint) Sacroiliitis, not elsewhere classifiedPos tlaminectomy syndrome, not elsewhere classifiedOth er intervertebra l disc degeneration, lumbosacral regionLow back pain Sep-0 8 Jonah Pastorberoberto carlos Kiara. [address] [place] [address], [id number], [place]. tel:[phone] Consulting Provider: Lucas AU, [address] [place] [facility], [place], [address]. tel:[phone] ring Provider: Emir Espinal, [address] [place] [address], [address]. tel:[phone] OFFICE/OUTPAT IENT VISIT, [facility], [address] [place] [address], [id number] , [place] [phone] [facility] [place] [facility] (chief complaint) Sacroiliitis, not elsewhere classifiedPos tlaminectomy syndrome, not elsewhere classifiedLow back painOther intervertebra l disc degeneration, lumbosacral region Clifford-0 6-201 8 Van Overbeke Kiara. [address] [place] [address], [id number], [place]. tel:[phone] Consulting Provider: Lucsa AU, [address] Prof Mercado [address], [address]. tel:[phone] ring Provider: Emir Espinal, [address] [place] [address], [address]. tel:[phone] OFFICE/OUTPAT IENT VISIT, [facility], [address] [place] [address], [id number] , [place] [phone] [facility] [place] Back [facility] (chief complaint) Sacroiliitis, not elsewhere classifiedPos tlaminectomy syndrome, not elsewhere classifiedLow back painOther intervertebra l disc degeneration, lumbosacral region Apr-0 6-201 8 Jonah Overbeke Kiara. [address] [place] [address], [id number], [place]. tel:[phone] Consulting Provider: Lucas AU, [address] Prof Mercado [address] [place] [address], [place], [address]. tel:[phone] ring Provider: Emir Espinal, [address] [place] [address], [address]. tel:[phone] OFFICE/OUTPAT IENT VISIT, [facility], [address] [place] [address], [id number] , [place] tel:[phone] [facility] [place] [facility] (chief complaint) Postlaminecto my syndrome, not elsewhere classifiedLow back painSacroilii tis, not elsewhere classified Fe 8 Van Overbeke Kiara. [address] [place] [address], [id number], [place]. tel:[phone] Consulting Provider: Lucas AU, [facility] [place] [address] [facility] 675 [facility] [address], [place], [address]. tel:[phone] ring Provider: Emir Espinal, [address] [place] [address], [address]. tel:[phone] OFFICE/OUTPAT IENT VISIT, [facility], [address] [place] [address], [id number] , [place] tel:[phone] [facility] [place] [facility] (chief complaint) Postlaminecto my syndrome, not elsewhere classifiedSac roiliitis, not elsewhere classifiedOth er intervertebra l disc degeneration, lumbosacral region Jonah Pastorberoberto carlos Craig. [address] [place] [address], [id number], [place]. tel:[phone] Referring Provider: Emir Espinal, [address] [place] [address], [address]. tel:[phone] OFFICE/OUTPAT IENT VISIT, [facility], [address] [place] [address], [id number] , [place] tel:[phone] [facility] [place] [facility] (chief complaint) Postlaminecto my syndrome, not elsewhere classifiedSac roiliitis, not elsewhere classifiedOth er intervertebra l disc degeneration, lumbosacral region 7 Van Overbeke Kiara. [address] [place] [address], [id number], [place]. tel:[phone] Referring Provider: Emir Espinal, [address] [place] [address], [address]. tel:[phone] OFFICE/OUTPAT IENT VISIT, [facility], [address] [place] [address], [id number] , [place] tel:[phone] [facility] [place] [facility] (chief complaint) Postlaminecto my syndrome, not elsewhere classifiedSac roiliitis, not elsewhere classifiedOth er intervertebra l disc degeneration, lumbosacral region 7 Jonah Craig. [address] [place] [address], [id number], [place]. tel:[phone] Consulting Provider: Lucas Talamantes PAC, [facility] [place] 675 [facility] 675 [facility] [address], [place], [address]. tel:[phone] ring Provider: Emir Espinal, [address] [place] [address], [address]. tel:[phone] OFFICE/OUTPAT IENT VISIT, EST [facility], [address] [place] [address], [id number] , [place] tel:[phone] [facility] [place] [facility] (chief complaint) Postlaminecto my syndrome, not elsewhere classifiedOth er intervertebra l disc degeneration, lumbosacral regionSacroil iitis, not elsewhere classifiedLon g term (current) use of opiate analgesic 7 Jonah Craig. [address] [place] [address], [id number], [place]. tel:[phone] Referring Provider: Emir Espinal, [address] [place] [address], [address]. tel:[phone] OFFICE/OUTPAT IENT VISIT, EST [facility], [address] [place] [address], [id number] , [place] tel:[phone] [facility] [place] [facility] (chief complaint) Postlaminecto my syndrome, not elsewhere classifiedOth er intervertebra l disc degeneration, lumbosacral regionSacroil iitis, not elsewhere classified Sep 7 Ney Quinones. [address] [place] [address], [id number], [place]. tel:[phone] Consulting Provider: Lucas AU, [facility] [address] Prof Mercado [address], [place], [address]. tel:[phone] ring Provider: Emir Espinal, [address] [place] [address], [address]. tel:[phone] OFFICE/OUTPAT IENT VISIT, [facility], [address] [place] [address], [id number] , [place] tel:[phone] [facility] [place] [facility] [facility] (chief complaint) Postlaminecto my syndrome, not elsewhere classifiedOth er intervertebra l disc degeneration, lumbosacral region 7 Jonah Craig. [address] [place] [address], [id number], [place]. tel:[phone] Referring Provider: Emir Espinal, [address] [place] [address], [address]. tel:[phone] OFFICE/OUTPAT IENT VISIT, [facility], [address] [place] [address], [id number] , [place] tel:[phone] [facility] [place] [facility] (chief complaint) Postlaminecto my syndrome, not elsewhere classifiedOth er intervertebra l disc degeneration, lumbosacral region 7 Ney Quinones. [address] [place], [place], [id number], [place]. tel:[phone] Consulting Provider: Lucas AU, [facility] [address] Prof Mercado [address], [place], [address]. tel:[phone] ring Provider: Emir Espinal, [address] [place] [address], [address]. tel:[phone] OFFICE/OUTPAT IENT VISIT, [facility], [address] [place] [address], [id number] , [place] [phone] [facility] [place] [facility] low back pain (chief complaint) Postlaminecto my syndrome, not elsewhere classifiedLow back pain Ney Quinones. [address] [place] [address], [id number], [place]. tel:[phone] Consulting Provider: Lucas AU, [facility] [address] Prof Mercado [address] [facility] [address], [place], [address]. tel:[phone] ring Provider: Emir Espinal, [address] [place] [address], [address]. tel:[phone] OFFICE/OUTPAT IENT VISIT, [facility], [address] [place] [address], [id number] , [place] tel:[phone] [facility] [place] low back pain (chief complaint) Low back painPostlamin ectomy syndrome, not elsewhere classified Neydarrel Quinones. [address] [place] [address], [id number], [place]. tel:[phone] Referring Provider: Emir Espinal, [address] [place] [address], [address]. tel:[phone] OFFICE/OUTPAT IENT VISIT, [facility], [address] [place] [address], [id number] , [place] tel:[phone] [facility] [place] low back pain (chief complaint) Low back painPostlamin ectomy syndrome, not elsewhere classified Ney Quinones. [address] [place] [address], [id number], [place]. tel:[phone] Consulting Provider: Lucas AU, [address] Prof Mercado [address] [place] [address], [place], [address]. tel:[phone] ring Provider: Emir Espinal, [address] [place] [address], [address]. tel:[phone] OFFICE/OUTPAT IENT VISIT, [facility], [address] [place] [address], [id number] , [place] tel:[phone] [facility] [place] [facility] (chief complaint) Postlaminecto my syndrome, not elsewhere classified Ney Stacie. [address] [place], [place], [id number], [place]. tel:[phone] Consulting Provider: Lucas AU, [address] [facility] [address], [place], [address]. tel:[phone] ring Provider: Emir Espinal, [address] [place] [address], [address]. tel:[phone] OFFICE/OUTPAT IENT VISIT, [facility], [address] [place] [address], [id number] , [place] [phone] [facility] [place] [facility] (chief complaint) Postlaminecto my syndrome, not elsewhere classifiedLon g term (current) use of opiate analgesic Ever Medina. [address] [place], [place], [id number], [place]. tel:[phone] Consulting Provider: Lucas AU, [address] Prof Jess [address] [place] [address], [place], [address]. tel:[phone] ring Provider: Emir Espinal, [address] [place], [address]. tel:[phone] OFFICE/OUTPAT IENT VISIT, EST [facility], [address] [place], [place], [id number] , [place] [phone] [facility] [place] low back pain (chief complaint) Low back painPostlamin ectomy syndrome, not elsewhere classified Ney Morgana. [address] [place], [place], [id number], [place]. tel:[phone] Consulting Provider: Lucas AU, [address], [place], [address]. [phone] ring Provider: Emir Espinal, [address] [place] [address], [address]. [phone] OFFICE/OUTPAT IENT VISIT, EST [facility], [address] [place] [address], [id number] , [place] [phone] [facility] [place] low back pain (chief complaint) Low back painPostlamin ectomy syndrome, not elsewhere classified 6 Ney Stacie. [address] [place], [place], [id number], [place]. tel:[phone] Consulting Provider: Lucas AU, [address] [place] [address], [place], [address]. tel:[phone] ring Provider: Emri Espinal, [address] [place] [address], [address]. [phone] OFFICE/OUTPAT IENT VISIT, [facility], [address] [place] [address], [id number] , [place] [phone] [facility] Low back painPostlamin ectomy syndrome, not elsewhere classified 6 Ney Stacie. [address] [place], [place], [id number], [place]. tel:[phone] Consulting Provider: Lucas AU, [address], [place], [address]. tel:[phone] ring Provider: Emir Espinal, [address] [place] [address], [address]. tel:[phone] OFFICE/OUTPAT IENT VISIT, [facility], [address] [place] [address], [id number] , [place] tel:[phone] [facility] [place] low back pain (chief complaint) Other cervical disc degeneration, high cervical regionLow back painPostlamin ectomy syndrome, not elsewhere classified 6 Ney Quinones. [address] [place] [address], [id number], [place]. tel:[phone] Consulting Provider: Lucas AU, [address] Jess Humphreys [place] [address], [place], [address]. tel:[phone] ring Provider: Emir Espinal, [address] [place] [address], [address]. tel:[phone] OFFICE/OUTPAT IENT VISIT, [facility], [address] [place] [address], [id number] , [place] tel:[phone] [facility] [place] pain (chief complaint)l ow back pain (chief complaint) Other cervical disc degeneration, high cervical regionLow back painPostlamin ectomy syndrome, not elsewhere classified 0 6 Ney Quinones. [address] [place] [address], [id number], [place]. tel:[phone] Consulting Provider: Lucas AU, [address] Prof Jess Humphreys [place] [address], [place], [address]. tel:[phone] ring Provider: Emir Espinal, [address] [place] [address], [address]. tel:[phone] OFFICE/OUTPAT IENT VISIT, [facility], [address] [place] [address], [id number] , [place] tel:[phone] [facility] [place] low back pain (chief complaint) Postlaminecto my syndrome, not elsewhere classifiedLow back painLong term (current) use of opiate analgesic Sep-0 6 Yasir Campos. [address] [place], [place], [id number], [place]. tel:[phone] Consulting Provider: Lucas AU, [address] Prof Mercado 675 [facility] 245, [place], [address]. tel:[phone] ring Provider: Emir Espinal, [address] [place] [address], [address]. tel:[phone] OFFICE/OUTPAT IENT VISIT, [facility], [address] [place] [address], [id number] , [place] tel:[phone] [facility] [place] low back pain (chief complaint) Postlaminecto my syndrome, not elsewhere classifiedLow back pain 6 Yasir Beth. [address] [place] [address], [id number], [place]. tel:[phone] Referring Provider: Emir Espinal, [address] [place] [address], [address]. tel:[phone] OFFICE/OUTPAT IENT VISIT, [facility], [address] [place] [address], [id number] , [place] tel:[phone] [facility] [place] low back pain (chief complaint) Postlaminecto my syndrome, not elsewhere classifiedLow back pain 6 Yasir Campos. [address] [place] [address], [id number], [place]. tel:[phone] Consulting Provider: Lucas AU, [facility] [address] 675 [facility] 245, [place], [address]. tel:[phone] ring Provider: Emir Espinal, [address] [place] [address], [address]. tel:[phone] OFFICE/OUTPAT IENT VISIT, [facility], [address] [place] [address], [id number] , [place] tel:[phone] [facility] [place] low back pain (chief complaint) Low back painPostlamin ectomy syndrome, not elsewhere classified 6 Ney Quinones. [address] [place] [address], [id number], [place]. tel:[phone] Consulting Provider: Lucas AU, [facility] [address] [facility], [place], [address]. tel:[phone] ring Provider: Emir Espinal, [address] [place] [address], [address]. tel:[phone] OFFICE/OUTPAT IENT VISIT, [facility], [address] [place] [address], [id number] , [place] tel:[phone] [facility] [place] low back pain (chief complaint) Low back painPostlamin ectomy syndrome, not elsewhere classified Ney Quinones. [address] [place] [address], [id number], [place]. tel:[phone] Consulting Provider: Lucas AU, [facility] [address] Prof Oliverosdg [address] [place] [address], [place], [address]. tel:[phone] ring Provider: Emir Espinal, [address] [place] [address], [address]. tel:[phone] OFFICE/OUTPAT IENT VISIT, [facility], [address] [place] [address], [id number] , [place] tel:[phone] [facility] [place] low back pain (chief complaint) Postlaminecto my syndrome, not elsewhere classifiedLow back pain Yasir Beth. [address] [place] [address], [id number], [place]. tel:[phone] Consulting Provider: Lucas AU, [facility] [address] [place] [address], [place], [address]. tel:[phone] ring Provider: Emir Espinal, [address] [place] [address], [address]. tel:[phone] OFFICE/OUTPAT IENT VISIT, [facility], [address] [place] [address] [place], [id number] , [place] tel:[phone] [facility] ([facility] complaint) Low back painPostlamin ectomy syndrome, not elsewhere classified 6 Ney Stacie. [address] [place], [place], [id number], [place]. tel:[phone] Consulting Provider: Lucas AU, [facility] [address], [place], [address]. tel:[phone] ring Provider: Emir Espinal, [address] [place] [address], [address]. tel:[phone] OFFICE/OUTPAT IENT VISIT, [facility], [address] [place] [address], [id number] , [place] tel:[phone] [facility] [place] low back pain (chief complaint) Low back pain 6 Ney Stacie. [address] [place], [place], [id number], [place]. tel:[phone] Consulting Provider: Lucas AU, [address], [place], [address]. tel:[phone] ring Provider: Emir Espinal, [address] [place] [address], [address]. tel:[phone] OFFICE/OUTPAT IENT VISIT, [facility], [address] [place] [address], [id number] , [place] tel:[phone] [facility] [place] low back pain (chief complaint) Low back painPostlamin ectomy syndrome, not elsewhere classified 6 Ney Stacie. [address] [place], [place], [id number], [place]. tel:[phone] Consulting Provider: Lucas AU, [address], [place], [address]. tel:[phone] ring Provider: Emir Espinal, [address] [place] [address], [address]. [phone] OFFICE/OUTPAT IENT VISIT, EST [facility], [address] [place] [address], [id number] , [place] tel:[phone] [facility] [place] low back pain (chief complaint) Low back painPostlamin ectomy syndrome, not elsewhere classified 5 Ney Stacie. [address] [place], [place], [id number], [place]. tel:[phone] Consulting Provider: Lucas AU, [address], [address]. [phone] ring Provider: Emir Espinal, [address] [place] [address], [address]. tel:[phone] OFFICE/OUTPAT IENT VISIT, [facility], [address] [place] [address], [id number] , [place] tel:[phone] [facility] low back pain (chief complaint) Trochanteric bursitis, right hipTrochanter ic bursitis, left hipLow back painPostlamin ectomy syndrome, not elsewhere classified 5 Ney Stacie. [address] [place], [place], [id number], [place]. tel:[phone] Consulting Provider: Lucas AU, [facility] [address] [place] [address], [place], [address]. tel:[phone] ring Provider: Emir Espinal, [address] [place] [address], [address]. tel:[phone] OFFICE/OUTPAT IENT VISIT, [facility], [address] [place] [address], [id number] , [place] tel:[phone] [facility] [place] low back pain (chief complaint) Low back painPostlamin ectomy syndrome, not elsewhere classified - 5 Neydarrel Morgana. [address] [place] [address], [id number], [place]. tel:[phone] Consulting Provider: Lucas AU, [facility] [address] Prof [address], [place], [address]. tel:[phone] ring Provider: Emir Espinal, [address] [place] [address], [address]. tel:[phone] OFFICE/OUTPAT IENT VISIT, [facility], [address] [place] [address], [id number] , [place] tel:[phone] [facility] [place] low back pain (chief complaint) LumbagoPostla minectomy syndrome of lumbar region Sep-2 - 5 Ney Quinones. [address] [place] [address], [id number], [place]. tel:[phone] Consulting Provider: Luacs AU, [address] Prof Mercado [address] [facility], [place], [address]. tel:[phone] ring Provider: Emir Espinal, [address] [place] [address], [address]. tel:[phone] OFFICE/OUTPAT IENT VISIT, [facility], [address] [place] [address], [id number] , [place] tel:[phone] [facility] [place] low back pain (chief complaint) LumbagoPostla minectomy syndrome of lumbar regionEncount er for current penitentiary use of high risk medication Sep-0 3-201 5 Ney Stacie. [address] [place], [place], [id number], [place]. tel:[phone] Consulting Provider: Lucas AU, [facility] [address], [place], [address]. tel:[phone] ring Provider: Emir Espinal, [address] [place] [address], [address]. tel:[phone] OFFICE/OUTPAT IENT VISIT, [facility], [address] [place] [address], [id number] , [place] [phone] [facility] [place] low back pain (chief complaint) LumbagoPostla minectomy syndrome of lumbar region 5 Ney Quinones. [address] [place] [address], [id number], [place]. tel:[phone] Consulting Provider: Lucas AU, [address] [place] [address], [place], [address]. tel:[phone] ring Provider: Emir Espinal, [address] [place] [address], [address]. tel:[phone] OFFICE/OUTPAT IENT VISIT, [facility], [address] [place] [address], [id number] , [place] [phone] [facility]) Lumbar failed back surgery syndrome No Information Consulting Provider: Lucas AU, [address] [place] [address], [place], [address]. tel:[phone] ring Provider: Emir Espinal, [address] [place] [address], [address]. tel:[phone] OFFICE/OUTPAT IENT VISIT, [facility] [place], [address] [place] [address], [id number] , [place] [phone] [facility] Back Pain (chief complaint) Lumbar failed back surgery syndromeEncou nter for current penitentiary use of high risk medication No Information Referring Provider: Emir Espinal, [address] [place] [address], [address]. tel:[phone] OFFICE/OUTPAT IENT VISIT, [facility], [address] [place], [place], [id number] , [place] tel:[phone] [facility] [place] low back pain (chief complaint) Lumbar failed back surgery syndrome 0 5 No Information Referring Provider: Emir Espinal, [address] [place], [address]. tel:[phone] OFFICE/OUTPAT IENT VISIT, [facility], [address] [place], [place], [id number] , [place] [phone] [facility] [place] Back Pain (chief complaint) Lumbar failed back surgery syndromeEncou nter for current penitentiary use of high risk medication No Information Referring Provider: Emir Espinal, [address] [place], [address]. tel:[phone] Family History Family Member Type Diagnosis Age At Onset No Information Payers Payer name Insurance type Covered republican ID Authoriza tiflaco(s) [employer] [id number] CI [id number] Social History Type Description Quantity Date Captured [...] Of Treatment Date Type Action Status Goal Tobacco screening. Due on due Goal Creatinine. Due on due Goal Review Allergy List. Due on due Goal AST (SGOT). Due on due Goal Zoster vaccine ( 1st). Due on due Goal ROLL TABLE OPERATOR Paperwork. Due on due Goal ALT (SGPT). Due on 24 due Goal HPV. Due on due Goal Weight. Due on d ue Goal CT-Colonography. Due on due Goal PHQ-9. Due on du e Goal FIT-DNA. Due on due Goal FIT. Due on due Goal Order Annual PT. Due on due Goal Height. Due on d ue Goal Tobacco Use. Due on due Goal Hepatitis C scre ening. Due on due Goal MEAT GRINDER Scanned. Due on due Goal Update Social Hi story. Due on due Goal OARS. Due on due Goal UDT. Due on due Goal Medication Recon ciliation. Due on due Goal Unhealthy drug u se screening. Due on due Goal MEAT GRINDER Scanned. Due on due Goal Order Annual [...] C scre ening. Due on due Goal ROLL TABLE OPERATOR Paperwork. Due on due Goal Review Allergy [...] on due Goal Tobacco Use. Due on 025 due Goal HPV. Due on due Goal ROLL TABLE OPERATOR Paperwork. Due on due Goal Hepatitis C scre ening. Due on due Goal Order Annual PT. Due on due Goal Tobacco screening. Due on due Goal Creatinine. Due on due Goal Update Social Hi story. Due on due Goal PHQ-9. Due on du e Goal AST (SGOT). Due on due Goal FIT. Due on due Goal Weight. Due on d ue Goal MEAT GRINDER Scanned. Due on due Goal Review Allergy List. Due on due Goal ALT (SGPT). Due on due Goal CT-Colonography. Due on due Goal Unhealthy drug u se screening. Due on due Goal Order Annual PT. Due on due Goal Creatinine. Due on due Goal UDT. Due on due Goal AST (SGOT). Due on due Goal MEAT GRINDER Scanned. Due on due Goal ALT (SGPT). Due on due Goal OARS. Due on due Goal ROLL TABLE OPERATOR Paperwork. Due on due Goal Height. Due on d ue Goal PHQ-9. Due on du e Goal CT-Colonography. Due on due Goal Review [...] Tobacco Use. Due on due Goal Tobacco screening. Due on Ms due Goal Update Social Hi story. Due on due Goal Creatinine. Due on 24 due Goal UDT. Due on due Goal MEAT GRINDER Scanned. Due on due Goal OARS. Due on due Goal PHQ-9. Due on du e Goal Tobacco Use. Due on due Goal CT-Colonography. Due on due Goal HPV. Due on due Goal Tobacco screening. Due on Ms due Goal Unhealthy drug u se screening. [...] Order Annual PT. Due on due Goal ROLL TABLE OPERATOR Paperwork. Due on due Goal ALT (SGPT). [...] C scre ening. Due on due Goal MEAT GRINDER Scanned. Due on due Goal Update Social Hi story. Due on due Goal Creatinine. Due on due Goal Order Annual PT. Due on due Goal Medication Recon ciliation. Due on due Goal ROLL TABLE OPERATOR Paperwork. Due on due Goal Zoster vaccine ( 1st). Due on due Goal Height. Due on d ue Goal Lipid panel. Due on due Goal OARS. Due on due Goal HPV. Due on due Goal PHQ-9. Due on du e Goal Lifestyle education regardin g diet completed Goal Creatinine. Due on due Goal ALT (SGPT). Due on due Goal MEAT GRINDER Scanned. Due on due Goal AST (SGOT). Due on due Goal Order Annual PT. Due on due Goal ROLL TABLE OPERATOR Paperwork. Due on due Goal Tobacco Use. [...] ue Goal HPV. Due on due Goal FIT. Due on due Goal Lipid panel. Due on due Goal FIT-DNA. Due on due Goal Hepatitis C scre ening. Due on due Goal OARS. Due on due Goal UDT. Due on due Goal ALT (SGPT). Due on due Goal ROLL TABLE OPERATOR Paperwork. Due on due Goal Order Annual PT. Due on due Goal MEAT GRINDER Scanned. Due on due Goal AST (SGOT). [...] ue Goal FIT. Due on due Goal Unhealthy [...] C scre ening. Due on due Goal ROLL TABLE OPERATOR Paperwork. Due on due Goal Lipid panel. Due on due Goal OARS. Due on due Goal AST (SGOT). Due on due Goal MEAT GRINDER Scanned. Due on due Goal UDT. Due [...] Goal AST (SGOT). Due on due Goal MEAT GRINDER Scanned. Due on due Goal ROLL TABLE OPERATOR Paperwork. Due on due Goal ALT (SGPT). [...] Goal Weight. Due on d ue Goal MEAT GRINDER Scanned. Due on due Goal Lipid panel. Due on due Goal HPV. Due on due Goal Unhealthy drug u se screening. Due on due Goal Hepatitis C scre ening. Due on due Goal Zoster vaccine ( 1st). Due on due Goal ROLL TABLE OPERATOR Paperwork. Due on due Goal Medication Recon [...] Goal Weight. Due on d ue Goal ROLL TABLE OPERATOR Paperwork. Due on due Goal MEAT GRINDER Scanned. Due on due Goal Hepatitis C scre ening. Due on due Goal Creatinine. Due on due Goal CT-Colonography. Due on due Goal FIT-DNA. Due on due Goal Lifestyle education regardin g diet completed Goal CT-Colonography. Due on due Goal Medication Recon ciliation. Due on due Goal Zoster vaccine ( 1st). Due on due Goal HPV. Due on due Goal Height. Due on d ue Goal Order Annual PT. Due on due Goal Weight. Due on d ue Goal Unhealthy drug u se screening. Due on due Goal UDT. Due on due Goal MEAT GRINDER Scanned. Due on due Goal AST (SGOT). Due on due Goal Tobacco Use. Due on due Goal ALT (SGPT). Due on due Goal FIT-DNA. Due on due Goal Review Allergy List. Due on due Goal Hepatitis C scre ening. Due on due Goal Creatinine. Due on due Goal OARS. Due on due Goal ROLL TABLE OPERATOR Paperwork. Due on due Goal FIT. Due on due Goal Update Social Hi story. Due on due Goal Lipid panel. Due on due Goal PHQ-9. Due on du e Goal OARS. Due on due Goal ALT (SGPT). Due on due Goal Creatinine. Due on due Goal UDT. Due on due Goal AST (SGOT). Due on due Goal ROLL TABLE OPERATOR Paperwork. Due on due Goal Order Annual PT. Due on due Goal MEAT GRINDER Scanned. Due on due Goal CT-Colonography. Due [...] Goal ALT (SGPT). Due on due Goal MEAT GRINDER Scanned. Due on due Goal Creatinine. Due on due Goal OARS. Due on due Goal Update Social Hi story. Due on due Goal UDT. Due on due Goal FIT. Due on due Goal PHQ-9. Due on du e Goal CT-Colonography. Due on due Goal Tobacco Use. Due on due Goal Order Annual PT. Due on due Goal AST (SGOT). Due on due Goal ROLL TABLE OPERATOR Paperwork. Due on due Goal Height. Due [...] Goal ALT (SGPT). Due on due Goal ROLL TABLE OPERATOR Paperwork. Due on due Goal HPV. Due on due Goal OARS. Due on due Goal UDT. Due on due Goal FIT. Due on due Goal MEAT GRINDER Scanned. Due on due Goal PHQ-9. Due [...] Goal Weight. Due on d ue Goal MEAT GRINDER Scanned. Due on due Goal ROLL TABLE OPERATOR Paperwork. Due on due Goal Medication Recon [...] Medication Recon ciliation. Due on due Goal ROLL TABLE OPERATOR Paperwork. Due on due Goal PHQ-9. Due on du e Goal FIT-DNA. Due on due Goal MEAT GRINDER Scanned. Due on due Goal CT-Colonography. Due [...] Goal Tobacco Use. Due on due Goal ROLL TABLE OPERATOR Paperwork. Due on due Goal Lipid panel. Due on due Goal Creatinine. Due on due Goal Height. Due on d ue Goal UDT. Due on due Goal ALT (SGPT). Due on due Goal Order Annual PT. Due on due Goal MEAT GRINDER Scanned. Due on due Goal Unhealthy drug [...] ue Goal FIT. Due on due Goal Hepatitis C scre ening. Due on due Goal Order Annual PT. Due on due Goal Creatinine. Due on due Goal ALT (SGPT). Due on due Goal UDT. Due on due Goal FIT. Due on due Goal Weight. Due on d ue Goal MEAT GRINDER Scanned. Due on due Goal HPV. Due [...] Goal Height. Due on d ue Goal ROLL TABLE OPERATOR Paperwork. Due on due Goal Review Allergy List. Due on due Goal Zoster vaccine ( ). Due on due Goal FIT-DNA. Due on due Goal Order Annual PT. Due on due Goal UDT. Due on due Goal Height. Due on d ue Goal ROLL TABLE OPERATOR Paperwork. Due on due Goal FIT. Due on due Goal OARS. Due on due Goal Tobacco Use. Due on due Goal MEAT GRINDER Scanned. Due on due Goal Zoster vaccine ( ). Due on due Goal PHQ-9. Due on du e Goal HPV. Due on due Goal CT-Colonography. [...] Order Annual PT. Due on due Goal ROLL TABLE OPERATOR Paperwork. Due on due Goal Creatinine. Due on due Goal AST (SGOT). Due on due Goal ALT (SGPT). Due on due Goal MEAT GRINDER Scanned. Due on due Goal FIT. Due [...] ue Goal HPV. Due on due Goal ALT (SGPT). Due on due Goal MEAT GRINDER Scanned. Due on due Goal Update Social Hi story. Due on due Goal Creatinine. Due on due Goal ROLL TABLE OPERATOR Paperwork. Due on due Goal Medication Recon [...] Goal Tobacco Use. Due on due Goal ROLL TABLE OPERATOR Paperwork. Due on due Goal MEAT GRINDER Scanned. Due on due Goal Medication Recon [...] Review Allergy List. Due on due Goal MEAT GRINDER Scanned. Due on due Goal UDT. Due on due Goal CT-Colonography. Due on due Goal ROLL TABLE OPERATOR Paperwork. Due on due Goal OARS. Due [...] d ue Goal Lipid panel. Due on 023 due Goal ROLL TABLE OPERATOR Paperwork. Due on due Goal Order Annual PT. Due on due Goal MEAT GRINDER Scanned. Due on 023 due Goal FIT-DNA. Due on due Goal Zoster vaccine ( 1st). Due on due Goal Tobacco Use. Due on 023 due Goal AST (SGOT). Due on 24 due Goal Review Allergy [...] C scre ening. Due on due Goal UDT. Due on due Goal Creatinine. Due on due Goal ALT (SGPT). Due on due Goal UDT. Due on due Goal OARS. Due on due Goal MEAT GRINDER Scanned. Due on due Goal PHQ-9. Due on du e Goal Medication Recon ciliation. Due on due Goal AST (SGOT). Due on due Goal ROLL TABLE OPERATOR Paperwork. Due on due Goal Hepatitis C [...] due Goal UDT. Due on due Goal MEAT GRINDER Scanned. Due on due Goal FIT. Due [...] Order Annual PT. Due on due Goal ROLL TABLE OPERATOR Paperwork. Due on due Goal Creatinine. Due [...] due Goal FIT-DNA. Due on due Goal MEAT GRINDER Scanned. Due on due Goal ROLL TABLE OPERATOR Paperwork. Due on due Goal Review Allergy [...] Goal Weight. Due on d ue Goal ROLL TABLE OPERATOR Paperwork. Due on due Goal MEAT GRINDER Scanned. Due on due Goal ALT (SGPT). [...] due Goal Creatinine. Due on due Goal ROLL TABLE OPERATOR Paperwork. Due on due Goal AST (SGOT). Due on due Goal UDT. Due on due Goal OARS. Due on due Goal PHQ-9. Due on du e Goal HPV. Due on due Goal MEAT GRINDER Scanned. Due on due Goal Unhealthy drug [...] Goal Height. Due on d ue Goal MEAT GRINDER Scanned. Due on due Goal Review Allergy [...] Goal Lipid panel. Due on due Goal ROLL TABLE OPERATOR Paperwork. Due on due Goal Unhealthy drug u se screening. Due on due Goal FIT-DNA. Due on due Goal Height. Due on d ue Goal Hepatitis C scre ening. Due on due Goal Weight. Due on d ue Goal FIT. Due on due Goal CT-Colonography. Due on due Goal ROLL TABLE OPERATOR Paperwork. Due on due Goal Review Allergy [...] due Goal Creatinine. Due on due Goal MEAT GRINDER Scanned. Due on due Goal Order Annual PT. Due on due Goal PHQ-9. Due on du e Goal MEAT GRINDER Scanned. Due on due Goal Creatinine. Due on due Goal UDT. Due on due Goal ALT (SGPT). Due on due Goal OARS. Due on due Goal AST (SGOT). Due on due Goal ROLL TABLE OPERATOR Paperwork. Due on due Goal Order Annual [...] due Goal OARS. Due on due Goal MEAT GRINDER Scanned. Due on due Goal Height. Due on d ue Goal Lipid panel. Due on due Goal FIT. Due on due Goal Order Annual PT. Due on due Goal ROLL TABLE OPERATOR Paperwork. Due on due Goal Tobacco Use. Due on due Goal Review Allergy List. Due on due Goal Creatinine. Due on due Goal Weight. Due on d ue Goal Height. Due on d ue Goal Creatinine. Due on due Goal FIT-DNA. Due on due Goal MEAT GRINDER Scanned. Due on due Goal Order Annual PT. Due on due Goal ALT (SGPT). Due on due Goal HPV. Due on due Goal OARS. Due on due Goal UDT. Due on due Goal ROLL TABLE OPERATOR Paperwork. Due on due Goal AST (SGOT). [...] Goal AST (SGOT). Due on due Goal ROLL TABLE OPERATOR Paperwork. Due on due Goal Hepatitis C scre ening. Due on due Goal UDT. Due on due Goal ALT (SGPT). Due on due Goal OARS. Due on due Goal Order Annual PT. Due on due Goal Creatinine. Due on due Goal FIT. Due on due Goal MEAT GRINDER Scanned. Due on due Goal Height. Due [...] Order Annual PT. Due on due Goal ROLL TABLE OPERATOR Paperwork. Due on due Goal Creatinine. Due on due Goal Review Allergy List. Due on due Goal Hepatitis C scre ening. Due on due Goal MEAT GRINDER Scanned. Due on due Goal Lipid panel. Due on due Goal FIT-DNA. Due on due Goal OARS. Due on due Goal ROLL TABLE OPERATOR Paperwork. Due on due Goal Hepatitis C [...] due Goal FIT. Due on due Goal MEAT GRINDER Scanned. Due on due Goal Lipid panel. Due on due Goal PHQ-9. Due on du e Goal UDT. Due on due Goal Height. Due on d ue Goal OARS. Due on due Goal MEAT GRINDER Scanned. Due on due Goal Update Social Hi story. Due on due Goal CT-Colonography. Due on due Goal HPV. Due on due Goal AST (SGOT). Due on due Goal Zoster vaccine ( 1st). Due on due Goal ROLL TABLE OPERATOR Paperwork. Due on due Goal Review Allergy [...] Goal Tobacco Use. Due on due Goal MEAT GRINDER Scanned. Due on due Goal FIT-DNA. Due [...] Goal Weight. Due on d ue Goal ROLL TABLE OPERATOR Paperwork. Due on due Goal Tobacco Use. Due on due Goal MEAT GRINDER Scanned. Due on due Goal Order Annual PT. Due on due Goal PHQ-9. Due on du e Goal FIT-DNA. Due on due Goal Zoster vaccine ( 1st). Due on due Goal OARS. Due on due Goal Lipid panel. Due on due Goal UDT. Due on due Goal ROLL TABLE OPERATOR Paperwork. Due on due Goal Height. Due [...] Medication Recon ciliation. Due on due Goal MEAT GRINDER Scanned. Due on due Goal UDT. Due [...] Social Hi story. Due on due Goal ROLL TABLE OPERATOR Paperwork. Due on due Goal PHQ-9. Due on du e Goal Weight. Due on d ue Goal Review Allergy List. Due on due Goal Tobacco Use. Due on due Goal Height. Due on d ue Goal FIT. Due on due Goal Unhealthy drug u se screening. Due on due Goal Order Annual PT. Due on due Goal MEAT GRINDER Scanned. Due on due Goal Zoster vaccine ( 1st). Due on due Goal OARS. Due on due Goal ROLL TABLE OPERATOR Paperwork. Due on due Goal CT-Colonography. Due [...] due Goal FIT. Due on due Goal MEAT GRINDER Scanned. Due on due Goal Tobacco Use. [...] Goal Weight. Due on d ue Goal ROLL TABLE OPERATOR Paperwork. Due on due Goal Review Allergy [...] Social Hi story. Due on due Goal MEAT GRINDER Scanned. Due on due Goal Review Allergy [...] due Goal FIT-DNA. Due on due Goal ROLL TABLE OPERATOR Paperwork. Due on due Goal Weight. Due on d ue Goal Order Annual PT. Due on due Goal Height. Due on d ue Goal FIT-DNA. Due on due Goal Creatinine. Due on due Goal Hepatitis C scre ening. Due on due Goal ROLL TABLE OPERATOR Paperwork. Due on due Goal PHQ-9. Due [...] Goal Weight. Due on d ue Goal MEAT GRINDER Scanned. Due on due Goal ALT (SGPT). Due on due Goal OARS. Due on due Goal UDT. Due on due Goal Review Allergy List. Due on due Goal Lipid panel. Due on due Goal Order Annual PT. Due on due Goal Hepatitis C scre ening. Due on due Goal Weight. Due on d ue Goal ROLL TABLE OPERATOR Paperwork. Due on due Goal Medication Recon ciliation. Due on due Goal Unhealthy drug u se screening. Due on due Goal OARS. Due on due Goal Update Social Hi story. Due on due Goal FIT. Due on due Goal PHQ-9. Due on du e Goal UDT. Due on due Goal Creatinine. Due on due Goal MEAT GRINDER Scanned. Due on due Goal ALT (SGPT). [...] Social Hi story. Due on due Goal ROLL TABLE OPERATOR Paperwork. Due on due Goal PHQ-9. Due on du e Goal FIT. Due on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
--- OUTSIDE RECORDS SUMMARY | 2024-09-20 03:56 | XMS_ITS | Continuity of Care Document ---
Author Organization [facility] tommie Address [address] [place] Schmidt [id number] Phone Care Team Providers Care Vegetable Canner Name Role Phone Ronald Maldonado Unavailable Unavailable [...] MAX 2 films/day - No Longer Active [id number], to fill and start 09/20 Procedures Procedure [...] Copied on Encounter OFFICE VISIT, EST TELEMEDICINE [facility], [address] [place], [id number] , [place] tel:[phone] [facility] [place] Widespread pain (chief complaint) Chronic pain syndromePostl aminectomy syndrome, not elsewhere classifiedDru g induced constipationL lupis term (current) use of opiate analgesicRadi culopathy, lumbar region 5 Darnell Cardenas. [address] [place] [address], [id number], [place]. tel:[phone] Consulting Provider: Lucas Talamantes, [facility] [address], [address], [place], [address]. tel:[phone] [facility], [address] [place] [address], [id number] , [place] tel:[phone] [facility] A[place]en Radiculopathy , lumbar region 5 Braeden Murcia. [address] [place] [address], [id number], [place]. tel:[phone] Referring Provider: Ronald Patrick, [address] [place] [address], [id number]. tel:[phone] OFFICE VISIT, EST TELEMEDICINE [facility], [address] [place] [address], [id number] , [place] tel:[phone] [facility] Widespread pain (chief complaint) Chronic pain syndromePostl aminectomy syndrome, not elsewhere classifiedDru g induced constipationL lupis term (current) use of opiate analgesicRadi culopathy, lumbar region 5 Darnell Cardenas. [address] [place] [address], [id number], [place]. tel:[phone] Consulting Provider: Lucas Talamantes, [facility] [address], [address], [place], [address]. tel:[phone] ring Provider: Emir Espinal, [address] [place] [address], [id number]. tel:[phone] OFFICE/OUTPAT IENT VISIT, EST [facility], [address] [place] [address], [id number] , [place] tel:[phone] [facility] Widespread pain (chief complaint) Chronic pain syndromePostl aminectomy syndrome, not elsewhere classifiedDru g induced constipationL lupis term (current) use of opiate analgesicRadi culopathy, lumbar regionEncount er for therapeutic drug level monitoring 5 Darnell Cardenas. [address] [place] [address], [id number], [place]. tel:[phone] Consulting Provider: Lucas Talamantes, [facility] [address], [address], [place], [address]. tel:[phone] Provider: Emir Espinal, [address] [place] [address], [id number]. tel:[phone] OFFICE VISIT, [facility], [address] [place] [address], [id number] , [place] tel:[phone] [facility] Widespread pain (chief complaint) Chronic pain syndromeOther intervertebra l disc degeneration, lumbar region, NOSPostlamine ctomy syndrome, not elsewhere classifiedDru g induced constipationL lupis term (current) use of opiate analgesic May-0 6- 5 Darnellbuddy Cardenas. [address] [place] [address], [id number], [place]. tel:[phone] Consulting Provider: Lucas Talamantes [facility] [address], [address], [place], [address]. tel:[phone] Provider: Emir Espinal, [address] [place] [address], [id number]. tel:[phone] OFFICE VISIT, [facility], [address] [place] [address], [id number] , [place] tel:[phone] [facility] low back pain (chief complaint) Chronic pain syndromeOther intervertebra l disc degeneration, lumbar region, NOSPostlamine ctomy syndrome, not elsewhere classifiedDru g induced constipationL lupis term (current) use of opiate analgesic Apr-0 8- 5 Van Overbeke Kiara. [address] [place] [address], [id number], [place]. tel:[phone] Consulting Provider: Lucas Talamantes [facility] [address], [address], [place], [address]. tel:[phone] ring Provider: Emir Espinal, [address] [place] [address], [id number]. tel:[phone] OFFICE/OUTPAT IENT VISIT, [facility], [address] [place], [place], [id number] , [place] tel:[phone] [facility] low back pain (chief complaint) Chronic pain syndromeOther intervertebra l disc degeneration, lumbar region, NOSPostlamine ctomy syndrome, not elsewhere classifiedDru g induced constipationL lupis term (current) use of opiate analgesicBody mass index [BMI] 19.9 or less, adultEncounte r for therapeutic drug level monitoring 5 Darnell Cardenas. [address] [place], [place], [id number], [place]. tel:[phone] Consulting Provider: Lucas Talamantes [facility] [address], [address], [place], [address]. tel:[phone] ring Provider: Emir Espinal, [address] [place] [address], [id number]. tel:[phone] OFFICE/OUTPAT IENT VISIT, [facility], [address] [place] [address], [id number] , [place] tel:[phone] [facility] back pain (chief complaint) Chronic pain syndromeOther intervertebra l disc degeneration, lumbar region, NOSPostlamine ctomy syndrome, not elsewhere classifiedDru g induced constipationL lupis term (current) use of opiate analgesicEnco unter for therapeutic drug level monitoring 5 Darnell Cardenas. [address] [place], [place], [id number], [place]. tel:[phone] Consulting Provider: Lucas Talamantes, [facility] [address], [address], [place], [address]. tel:[phone] ring Provider: Emir Espinal, [address] [place] [address], [id number]. tel:[phone] OFFICE/OUTPAT IENT VISIT, [facility], [address] [place] [address], [id number] , [place] tel:[phone] [facility] Opioid dependence, uncomplicated 5 Audrey Silverio. [address] [place] [address], [id number], [place]. tel:[phone] Referring Provider: Emir Espinal, [address] [place] [address], [id number]. tel:[phone] OFFICE VISIT, [facility] TELEMEDICINE [facility], [address] [place] [address], [id number] , [place] tel:[phone] [facility] Back pain (chief complaint) Chronic pain syndromeOther intervertebra l disc degeneration, lumbar region, NOSPostlamine ctomy syndrome, not elsewhere classifiedDru g induced constipationL lupis term (current) use of opiate analgesic 5 Jonah Craig. [address] [place] [address], [id number], [place]. tel:[phone] Consulting Provider: Lucas Talamantes, [facility] [address], [address] [employer], [place], [address]. tel:[phone] OFFICE/OUTPAT IENT VISIT, [facility], [address] [place] [address], [id number] , [place] tel:[phone] [facility] Back Pain (chief complaint) Chronic pain syndromeOther intervertebra l disc degeneration, lumbar region, NOSPostlamine ctomy syndrome, not elsewhere classifiedDru g induced constipationL lupis term (current) use of opiate analgesicEnco unter for therapeutic drug level monitoring 4 Jonah Craig. [address] [place] [address], [id number], [place]. tel:[phone] Consulting Provider: Lucas Talamantes, [facility] [address], [address], [place], [address]. tel:[phone] ring Provider: Emir Espinal, [address] [place] [address], [id number]. tel:[phone] OFFICE VISIT, [facility] TELEMEDICINE [facility], [address] [place] [address], [id number] , [place] tel:[phone] [facility] ([facility]) Chronic pain syndromeOther intervertebra l disc degeneration, lumbar region, NOSPostlamine ctomy syndrome, not elsewhere classifiedDru g induced constipationL lupis term (current) use of opiate analgesic 4 Mariusz Orellana. [address] [place] [address], [id number], [place]. tel:[phone] Consulting Provider: Lucas Talamantes, [facility] [address], [address], [place], [address]. tel:[phone] ring Provider: Emir Espinal, [address] [place] [address], [id number]. tel:[phone] [facility], [address] [place] [address], [id number] , [place] tel:[phone] [facility] No Information 4 Jonah Craig. [address] [place] [address], [id number], [place]. tel:[phone] Referring Provider: Emir Espinal, [address] [place] [address], [id number]. tel:[phone] OFFICE VISIT, EST TELEMEDICINE [facility], [address] [place] [address], [id number] , [place] tel:[phone] [facility] Back Pain (chief complaint) Chronic pain syndromeOther intervertebra l disc degeneration, lumbar region, NOSPostlamine ctomy syndrome, not elsewhere classifiedPai n in right kneePain in left kneeDrug induced constipationL lupis term (current) use of opiate analgesicBody mass index [BMI] 27.0-27.9, adult 4 Jonah Craig. [address] [place] [address], [id number], [place]. tel:[phone] Consulting Provider: Lucas Talamantes, [facility] [address], [address], [place], [address]. tel:[phone] OFFICE/OUTPAT IENT VISIT, EST [facility], [address] [place] [address], [id number] , [place] tel:[phone] [facility] [place] Back Pain (chief complaint) Chronic pain syndromeOther intervertebra l disc degeneration, lumbar regionPostlam inectomy syndrome, not elsewhere classifiedPai n in right kneePain in left kneeDrug induced constipationL lupis term (current) use of opiate analgesicEnco unter for therapeutic drug level monitoringBod y mass index [BMI] 27.0-27.9, adult Sep- 4 Jonah Craig. [address] [place] [address], [id number], [place]. tel:[phone] Consulting Provider: Lucas Talamantes, [facility] [address], [address], [place], [address]. tel:[phone] ring Provider: Emir Espinal, [address] [place] [address], [id number]. tel:[phone] [facility], [address] [place] [address], [id number] , tel:[phone] [facility] (chief complaint) Chronic pain syndromeOther intervertebra l disc degeneration, lumbar regionPostlam inectomy syndrome, not elsewhere classifiedPai n in right kneePain in left kneeDrug induced constipationL lupis term (current) use of opiate analgesic 4 Jonah Craig. [address] [place] [address], [id number], [place]. tel:[phone] Consulting Provider: Lucas Talamantes, [facility] [address], [address], [place], [address]. tel:[phone] OFFICE VISIT, EST TELEMEDICINE [facility], [address] [place] [address], [id number] , [place] tel:[phone] [facility] [place] Back pain (chief complaint) Chronic pain syndromeOther intervertebra l disc degeneration, lumbar regionPostlam inectomy syndrome, not elsewhere classifiedPai n in right kneePain in left kneeDrug induced constipationL lupis term (current) use of opiate analgesic 4 Jonah Craig. [address] [place] [address], [id number], [place]. tel:[phone] Consulting Provider: Lucas Talamantes, [facility] [address], [address], [place], [address]. tel:[phone] Provider: Emir Espinal, [address] [place] [address], [id number]. tel:[phone] OFFICE/OUTPAT IENT VISIT, [facility], [address] [place] [address], [id number] , tel:[phone] [facility] Back Pain (chief complaint) Chronic pain syndromeOther intervertebra l disc degeneration, lumbar regionPostlam inectomy syndrome, not elsewhere classifiedPai n in right kneePain in left kneeDrug induced constipationL lupis term (current) use of opiate analgesicEnco unter for therapeutic drug level monitoringCer vicalgia 4 Jonah Craig. [address] [place] [address], [id number], [place]. tel:[phone] Consulting [facility]: [facility] [address], [address], [place], [address]. tel:[phone] Provider: Emir Espinal, [address] [place] [address], [id number]. tel:[phone] OFFICE VISIT, [facility], [address] [place] [address], [id number] , tel:[phone] [facility] Back pain (chief complaint) Postlaminecto my syndrome, not elsewhere classifiedOth er intervertebra l disc degeneration, lumbar regionPain in right kneePain in left kneeDrug induced constipationL lupis term (current) use of opiate analgesicChro tommie pain syndrome 4 Jonah Pastorberoberto carlos Craig. [address] [place] [address], [id number], [place]. tel:[phone] Consulting Provider: Lucas Talamantes, [facility] [address], [address], [place], [address]. tel:[phone] [facility], [address] [place] [address], [id number] , [place] tel:[phone] [facility] [place] Pain in right kneePain in left knee June-0 4 Braeden Murcia. [address] [place] [address], [id number], [place]. tel:[phone] Referring Provider: Kiara Álvarez, [address] [place] [address], [id number]. tel:[phone] OFFICE VISIT, EST TELEMEDICINE [facility], [address] [place] [address], [id number] , [place] tel:[phone] [facility] [place] Back Pain (chief complaint) Chronic pain syndromePostl aminectomy syndrome, not elsewhere classifiedOth er intervertebra l disc degeneration, lumbar regionPain in right kneePain in left kneeDrug induced constipationL lupis term (current) use of opiate analgesic May-2 4 Jonah Craig. [address] [place] [address], [id number], [place]. tel:[phone] Consulting Provider: Lucas Talamantes, [facility] [address], [address], [place], [address]. tel:[phone] ring Provider: Emir Espinal, [address] [place] [address], [id number]. tel:[phone] [facility], [address] [place] [address], [id number] , [place] tel:[phone] [facility] [place] Pain in left kneePain in right knee May- 4 Jonah Craig. [address] [place] [address], [id number], [place]. tel:[phone] [facility], [address] [place] [address], [id number] , [place] tel:[phone] [facility] [place] Pain in right kneePain in left knee May- 4 Braeden Murcia. [address] [place] [address], [id number], [place]. tel:[phone] Referring Provider: Kiara Álvarez, [address] [place] [address], [id number]. tel:[phone] [facility], [address] [place] [address], [id number] , [place] tel:[phone] [facility] [place] Pain in left kneePain in right knee Apr-0 4 Mihir Field. [address] [place] [address], [id number], [place]. tel:[phone] [facility], [address] [place] [address], [id number] , [place] [phone] [facility] [place] Low back painOther chronic painArthrodes is status 4 Braeden Murcia. [address] [place] [address], [id number], [place]. tel:[phone] Referring Provider: Kiara Álvarez, [address] [place] [address], [id number]. tel:[phone] OFFICE/OUTPAT IENT VISIT, EST [facility], [address] [place] [address], [id number] , [place] tel:[phone] [facility] [place] Back Pain (chief complaint) Postlaminecto my syndrome, not elsewhere classifiedOth er intervertebra l disc degeneration, lumbar regionPain in right kneePain in left kneeDrug induced constipationL lupis term (current) use of opiate analgesicChro tommie pain syndromeEncou nter for therapeutic drug level monitoring 4 Emeka Cordova. [address] [place] [address], [id number], [place]. tel:[phone] Referring Provider: Emir Espinal, [address] [place] [address], [id number]. tel:[phone] OFFICE VISIT, EST TELEMEDICINE [facility], [address] [place] [address], [id number] , [place] tel:[phone] [facility] [place] Back Pain (chief complaint) Postlaminecto my syndrome, not elsewhere classifiedOth er intervertebra l disc degeneration, lumbar regionPain in right kneePain in left kneeDrug induced constipationL lupis term (current) use of opiate analgesic 4 Jonah Overbeke Kiara. [address] [place] [address], [id number], [place]. tel:[phone] Consulting Provider: Lucas Talamantes, [facility] [address], [address], [place], [address]. tel:[phone] OFFICE VISIT, EST TELEMEDICINE [facility], [address] [place] [address], [id number] , [place] tel:[phone] [facility] [place] Back Pain (chief complaint) Postlaminecto my syndrome, not elsewhere classifiedOth er intervertebra l disc degeneration, lumbar regionPain in right kneePain in left kneeDrug induced constipationL lupis term (current) use of opiate analgesic 4 Jonah Pastorberoberto carlos Kiara. [address] [place] [address], [id number], [place]. tel:[phone] Consulting Provider: [facility] [address], [address], [place], [address]. tel:[phone] ring Provider: Emir Espinal, [address] [place] [address], [id number]. tel:[phone] [facility], [address] [place] [address], [id number] , [place] tel:[phone] [facility] [place] No Information 3 Jonah Craig. [address] [place] [address], [id number], [place]. tel:[phone] Referring Provider: Emir Espinal, [address] [place] [address], [id number]. tel:[phone] OFFICE/OUTPAT IENT VISIT, EST [facility], [address] [place] [address], [id number] , [place] tel:[phone] [facility] [place] Back Pain (chief complaint) Postlaminecto my syndrome, not elsewhere classifiedOth er intervertebra l disc degeneration, lumbar regionPain in right kneePain in left kneeDrug induced constipationL lupis term (current) use of opiate analgesicEnco unter for therapeutic drug level monitoring 3 Van Overbeke Kiara. [address] [place], [place], [id number], [place]. tel:[phone] Consulting Provider: Lucas Talamantes, [facility] [address], [address], [place], [address]. tel:[phone] ring Provider: Emir Espinal, [address] [place] [address], [id number]. tel:[phone] OFFICE VISIT, EST TELEMEDICINE [facility], [address] [place] [address], [id number] , [place] tel:[phone] [facility] [place] Back Pain (chief complaint) Postlaminecto my syndrome, not elsewhere classifiedOth er intervertebra l disc degeneration, lumbar regionPain in right kneePain in left kneeDrug induced constipationL lupis term (current) use of opiate analgesic 3 Van Overbeke Kiara. [address] [place], [place], [id number], [place]. tel:[phone] Consulting Provider: [facility] [address], [address], [place], [address]. tel:[phone] OFFICE VISIT, EST TELEMEDICINE [facility], [address] [place] [address], [id number] , [place] tel:[phone] [facility] [place] Back Pain (chief complaint) Postlaminecto my syndrome, not elsewhere classifiedOth er intervertebra l disc degeneration, lumbar regionPain in right kneePain in left kneeDrug induced constipationL lupis term (current) use of opiate analgesic 3 Van Overbeke Kiara. [address] [place], [place], [id number], [place]. tel:[phone] Consulting Provider: Lucas Talamantes, [facility] [address], [address], [place], [address]. tel:[phone] ring Provider: Emir Espinal, [address] [place] [address], [id number]. tel:[phone] [facility], [address] [place] [address], [id number] , [place] tel:[phone] [facility] [place] Pain in right kneePain in left knee 3 Braeden Murcia. [address] [place] [address], [id number], [place]. tel:[phone] Referring Provider: Emir Espinal, [address] [place] [address], [id number]. tel:[phone] [facility], [address] [place] [address], [id number] , [place] tel:[phone] [facility] [place] lumbago/kne es (chief complaint) Postlaminecto my syndrome, not elsewhere classifiedOth er intervertebra l disc degeneration, lumbar region 3 Melinda Zavala. [address] [place] [address], [id number], [place]. tel:[phone] Referring Provider: Emir Espinal, [address] [place] [address], [id number]. tel:[phone] [facility], [address] [place] [address], [id number] , [place] tel:[phone] [facility] [place] No Information Sep- 3 Jonah Craig. [address] [place] [address], [id number], [place]. tel:[phone] OFFICE/OUTPAT IENT VISIT, EST [facility], [address] [place] [address], [id number] , [place] [phone] [facility] [place] Back Pain (chief complaint) Postlaminecto my syndrome, not elsewhere classifiedOth er intervertebra l disc degeneration, lumbar regionPain in right kneePain in left kneeDrug induced constipationL lupis term (current) use of opiate analgesicEnco unter for therapeutic drug level monitoring Sep-2 3 Jonah Craig. [address] [place] [address], [id number], [place]. tel:[phone] Consulting Provider: Lucas Talamantes, [facility] [address], [address], [place], [address]. tel:[phone] ring Provider: Emir Espinal, [address] [place] [address], [id number]. tel:[phone] OFFICE VISIT, EST TELEMEDICINE [facility], [address] [place] [address], [id number] , [place] tel:[phone] [facility] Back Pain (chief complaint) Postlaminecto my syndrome, not elsewhere classifiedOth er intervertebra l disc degeneration, lumbar regionPain in right kneePain in left kneeDrug induced constipationL lupis term (current) use of opiate analgesic 3 Jonah Pastorberoberto carlos Craig. [address] [place] [address], [id number], [place]. tel:[phone] Consulting Provider: Lucas Talamantes, [facility] [address], [address], [place], [address]. tel:[phone] ring Provider: Emir Espinal, [address] [place] [address], [id number]. tel:[phone] OFFICE VISIT, EST TELEMEDICINE [facility], [address] [place] [address], [id number] , [place] tel:[phone] [facility] [place] Back Pain (chief complaint) Postlaminecto my syndrome, not elsewhere classifiedOth er intervertebra l disc degeneration, lumbar regionSacroil iitis, not elsewhere classifiedPai n in right kneePain in left kneeOther muscle spasmChronic migraine without aura, intractable, without status migrainosusMa domitila depressive disorder, single episode, unspecifiedDr ug induced constipationL lupis term (current) use of opiate analgesic 3 Van Overbeke Kiara. [address] [place], [place], [id number], [place]. tel:[phone] Consulting Provider: Lucas Talamantes, [facility] [address], [address], [place], [address]. tel:[phone] Provider: Emir Espinal, [address] [place] [address], [id number]. tel:[phone] [facility], [address] [place] [address], [id number] , [place] tel:[phone] [facility] [place] No Information 3 Jonah Craig. [address] [place] [address], [id number], [place]. tel:[phone] [id number] Referring Provider: Emir Espinal, [address] [place] [address], [id number]. tel:[phone] OFFICE/OUTPAT IENT VISIT, EST [facility], [address] [place] [address], [id number] , [place] tel:[phone] [facility] Back Pain (chief complaint) Major depressive disorder, single episode, unspecifiedCh ronic migraine without aura, intractable, without status migrainosusDr ug induced constipationP ain in right kneePain in left kneeSacroilii tis, not elsewhere classifiedOth er intervertebra l disc degeneration, lumbar regionOther muscle spasmPostlami nectomy syndrome, not elsewhere classifiedLon g term (current) use of opiate analgesicEnco unter for therapeutic drug level monitoring 3 Jonah Craig. [address] [place] [address], [id number], [place]. tel:[phone] Consulting Provider: Lucas Talamantes, [facility] [address], [address], [place], [address]. tel:[phone] ring Provider: Emir Espinal, [address] [place] [address], [id number]. tel:[phone] [facility], [address] [place] [address], [id number] , [place] tel:[phone] [facility] [place] Pain in right kneePain in left knee 3 Braeden Murcia. [address] [place] [address], [id number], [place]. tel:[phone] Referring Provider: Emir Espinal, [address] [place] [address], [id number]. tel:[phone] OFFICE VISIT, [facility] TELEMEDICINE [facility], [address] [place] [address], [id number] , [place] tel:[phone] [facility] [place] Back pain (chief complaint) Major depressive disorder, single episode, unspecifiedCh ronic migraine without aura, intractable, without status migrainosusSa croiliitis, not elsewhere classifiedOth er intervertebra l disc degeneration, lumbar regionOther muscle spasmPostlami nectomy syndrome, not elsewhere classifiedLon g term (current) use of opiate analgesicPain in right kneePain in left kneeDrug induced constipation 3 Jonah Craig. [address] [place] [address], [id number], [place]. tel:[phone] Consulting Provider: Lucas Talamantes [facility] [address], [address], [place], [address]. tel:[phone] ring Provider: Emir Espinal, [address] [place] [address], [id number]. tel:[phone] OFFICE VISIT, [facility] TELEMEDICINE [facility], [address] [place] [address], [id number] , [place] tel:[phone] [facility] Back Pain (chief complaint) Major depressive disorder, single episode, unspecifiedCh ronic migraine without aura, intractable, without status migrainosusSa croiliitis, not elsewhere classifiedOth er intervertebra l disc degeneration, lumbar regionOther muscle spasmPostlami nectomy syndrome, not elsewhere classifiedLon g term (current) use of opiate analgesic 3 Jonah Pastorberoberto carlos Kiara. [address] [place] [address], [id number], [place]. tel:[phone] Consulting Provider: Lucas Talamantes [facility] [address], [address], [place], [address]. tel:[phone] OFFICE/OUTPAT IENT VISIT, [facility], [address], [place], [id number] , [place] [phone] [facility] [place] back pain (chief complaint) Major depressive disorder, single episode, unspecifiedCh ronic migraine without aura, intractable, without status migrainosusSa croiliitis, not elsewhere classifiedOth er intervertebra l disc degeneration, lumbar regionOther muscle spasmPostlami nectomy syndrome, not elsewhere classifiedLon g term (current) use of opiate analgesicEnco unter for therapeutic drug level monitoring 3 Jonah Pastorberoberto carlos Craig. [address] [place] [address], [id number], [place]. tel:[phone] Consulting Provider: Lucas Talamantes, [facility] [address], [address], [place], [address]. tel:[phone] ring Provider: Emir Espinal, [address] [place] [address], [id number]. tel:[phone] [facility], [address] [place] [address], [id number] , [place] [phone] [facility] [place] No Information 3 Jonah Craig. [address] [place] [address], [id number], [place]. tel:[phone] OFFICE VISIT, EST TELEMEDICINE [facility], [address] [place] [address], [id number] , [place] [phone] [facility] Back Pain (chief complaint) Major depressive disorder, single episode, unspecifiedCh ronic migraine without aura, intractable, without status migrainosusSa croiliitis, not elsewhere classifiedOth er intervertebra l disc degeneration, lumbar regionPostlam inectomy syndrome, not elsewhere classifiedLon g term (current) use of opiate analgesicOthe r muscle spasm 3 Jonah Overbeke Kiara. [address] [place] [address], [id number], [place]. tel:[phone] Consulting Provider: Lucas Talamantes [facility] [address], [address], [place], [address]. tel:[phone] OFFICE VISIT, EST TELEMEDICINE [facility], [address] [place] [address], [id number] , [place] tel:[phone] [facility] Back Pain (chief complaint) Other intervertebra l disc degeneration, lumbar regionSacroil iitis, not elsewhere classifiedChr onic migraine without aura, intractable, without status migrainosusMa domitila depressive disorder, single episode, unspecifiedOt her muscle spasmPostlami nectomy syndrome, not elsewhere classifiedLon g term (current) use of opiate analgesic 3 Jonah Overbeke Kiara. [address] [place], [place], [id number], [place]. tel:[phone] Consulting Provider: Lucas Talamantes, [facility] [address], [address], [place], [address]. [phone] OFFICE/OUTPAT IENT VISIT, EST [facility], [address] [place] [address], [id number] , [place] tel:[phone] [facility] [place] Back pain (chief complaint) Major depressive disorder, single episode, unspecifiedCh ronic migraine without aura, intractable, without status migrainosusSa croiliitis, not elsewhere classifiedOth er intervertebra l disc degeneration, lumbar regionOther muscle spasmPostlami nectomy syndrome, not elsewhere classifiedLon g term (current) use of opiate analgesicEnco unter for therapeutic drug level monitoring 2 Jonah Craig. [address] [place] [address], [id number], [place]. tel:[phone] Consulting Provider: Lucas Talamantes, [facility] [address], [address], [place], [address]. [phone] ring Provider: Emir Espinal, [address] [place] [address], [id number]. tel:[phone] [facility], [address] [place] [address], [id number] , [place] [phone] [facility] [place] No Information 2 Jonah Craig. [address] [place] [address], [id number], [place]. tel:[phone] Referring Provider: Emir Espinal, [address] [place] [address], [id number]. tel:[phone] OFFICE VISIT, [facility] TELEMEDICINE [facility], [address] [place] [address], [id number] , [place] tel:[phone] [facility] [place] Back pain (chief complaint) Major depressive disorder, single episode, unspecifiedCh ronic migraine without aura, intractable, without status migrainosusSa croiliitis, not elsewhere classifiedOth er intervertebra l disc degeneration, lumbar regionOther muscle spasmPostlami nectomy syndrome, not elsewhere classifiedLon g term (current) use of opiate analgesic Nov-3 2 Jonah Guillen Kiara. [address] [place] [address], [id number], [place]. tel:[phone] Consulting Provider: Lucas Talamantes [facility] [address], [address], [place], [address]. tel:[phone] ring Provider: Emir Espinal, [address] [place] [address], [id number]. tel:[phone] OFFICE VISIT, [facility] TELEMEDICINE [facility], [address] [place] [address], [id number] , [place] tel:[phone] [facility] [place] Back pain (chief complaint) Major depressive disorder, single episode, unspecifiedCh ronic migraine without aura, intractable, without status migrainosusSa croiliitis, not elsewhere classifiedOth er intervertebra l disc degeneration, lumbar regionPostlam inectomy syndrome, not elsewhere classifiedLon g term (current) use of opiate analgesicOthe r muscle spasm Oct- 2 Jonah Guillen Kiara. [address] [place] [address], [id number], [place]. tel:[phone] Consulting Provider: Lucas Talamantes [facility] [address], [address], [place], [address]. tel:[phone] OFFICE/OUTPAT IENT VISIT, [facility], [address] [place] [address], [id number] , [place] tel:[phone] [facility] Back pain (chief complaint) Major depressive disorder, single episode, unspecifiedCh ronic migraine without aura, intractable, without status migrainosusSa croiliitis, not elsewhere classifiedOth er intervertebra l disc degeneration, lumbar regionPostlam inectomy syndrome, not elsewhere classifiedLon g term (current) use of opiate analgesicEnco unter for therapeutic drug level monitoring Sep-2 2 Van Overbeke Kiara. [address] [place] [address], [id number], [place]. tel:[phone] Consulting Provider: Lucas Talamantes [facility] [address], [address], [place], [address]. tel:[phone] ring Provider: Emir Espinal, [address] [place] [address], [id number]. tel:[phone] [facility], [address] [place] [address], [id number] , [place] tel:[phone] [facility] [place] No Information Sep-2 2 Van Overbeke Kiara. [address] [place] [address], [id number], [place]. tel:[phone] OFFICE VISIT, EST TELEMEDICINE [facility], [address] [place] [address], [id number] , [place] [phone] [facility] Back Pain (chief complaint) Major depressive disorder, single episode, unspecifiedCh ronic migraine without aura, intractable, without status migrainosusSa croiliitis, not elsewhere classifiedOth er intervertebra l disc degeneration, lumbar regionPostlam inectomy syndrome, not elsewhere classifiedLon g term (current) use of opiate analgesic Sep-0 2 Keri Campos. [address] [facility] [address], [place], [place], [id number], [place]. tel:[phone] Consulting Provider: Lucas Talamantes [facility] [address], [address], [place], [address]. tel:[phone] ring Provider: Emir Espinal, [address] [place] [address], [id number]. tel:[phone] OFFICE VISIT, EST TELEMEDICINE [facility], [address] [place] [address], [id number] , [place] tel:[phone] [facility] [place] Back pain (chief complaint) Chronic migraine without aura, intractable, without status migrainosusSa croiliitis, not elsewhere classifiedOth er intervertebra l disc degeneration, lumbar regionPostlam inectomy syndrome, not elsewhere classifiedLon g term (current) use of opiate analgesicMajo r depressive disorder, single episode, unspecified 2 Van Overbeke Kiara. [address] [place] [address], [id number], [place]. tel:[phone] [facility]ing [facility] [address], [address], [place], [address]. tel:[phone] ring Provider: Emir Espinal, [address] [place] [address], [id number]. tel:[phone] OFFICE VISIT, EST TELEMEDICINE [facility], [address] [place] [address], [id number] , [place] tel:[phone] [facility] [place] back pain (chief complaint) Chronic migraine without aura, intractable, without status migrainosusSa croiliitis, not elsewhere classifiedOth er intervertebra l disc degeneration, lumbar regionPostlam inectomy syndrome, not elsewhere classifiedLon g term (current) use of opiate analgesic 2 Van Overbeke Kiara. [address] [place], [place], [id number], [place]. tel:[phone] Consulting Provider: [facility] [address], [address], [place], [address]. tel:[phone] [facility], [address] [place] [address], [id number] , [place] tel:[phone] [facility] [place] No Information 2 Van Overbeke Kiara. [address] [place] [address], [id number], [place]. tel:[phone] Referring Provider: Emir Espinal, [address] [place] [address], [id number]. tel:[phone] OFFICE/OUTPAT IENT VISIT, [facility], [address] [place] [address], [id number] , [place] tel:[phone] [facility] Back Pain (chief complaint) Chronic migraine without aura, intractable, without status migrainosusSa croiliitis, not elsewhere classifiedOth er intervertebra l disc degeneration, lumbar regionPostlam inectomy syndrome, not elsewhere classifiedLon g term (current) use of opiate analgesicEnco unter for therapeutic drug level monitoring 2 Jonah Overlorna Kiara. [address] [place] [address], [id number], [place]. tel:[phone] Consulting Provider: Lucas Talamantes, [facility] [address], [address], [place], [address]. tel:[phone] ring Provider: Emir Espinal, [address] [place] [address], [id number]. tel:[phone] OFFICE VISIT, [facility] TELEMEDICINE [facility], [address] [place] [address], [id number] , [place] tel:[phone] [facility] Back Pain (chief complaint) Chronic migraine without aura, intractable, without status migrainosusSa croiliitis, not elsewhere classifiedOth er intervertebra l disc degeneration, lumbar regionPostlam inectomy syndrome, not elsewhere classifiedLon g term (current) use of opiate analgesic 2 Jonah Overbeke Kiara. [address] [place] [address], [id number], [place]. tel:[phone] Consulting Provider: Lucas Talamantes, [facility] [address], [address], [place], [address]. tel:[phone] OFFICE VISIT, EST TELEMEDICINE [facility], [address] [place] [address], [id number] , [place] [phone] [facility] [place] Back Pain (chief complaint)H eadache (chief complaint) Chronic migraine without aura, intractable, without status migrainosusSa croiliitis, not elsewhere classifiedOth er intervertebra l disc degeneration, lumbar regionPostlam inectomy syndrome, not elsewhere classifiedLon g term (current) use of opiate analgesic Apr-2 2 Van Overbeke Kiara. [address] [place] [address], [id number], [place]. tel:[phone] Consulting Provider: Lucas Talamantes, [facility] [address], [address], [place], [address]. tel:[phone] [facility], [address] [place] [address], [id number] , [phone] [facility] [place] Chronic migraine without aura, intractable, without status migrainosus Apr-0 2 Ney Quinones. [address] [place] [address], [id number], [place]. tel:[phone] Referring Provider: Emir Espinal, [address] [place] [address], [id number]. tel:[phone] OFFICE VISIT, EST TELEMEDICINE [facility], [address] [place] [address], [id number] , [place] [phone] [facility] Back Pain (chief complaint) Chronic migraine without aura, intractable, without status migrainosusOt her intervertebra l disc degeneration, lumbar regionLong term (current) use of opiate analgesicPost laminectomy syndrome, not elsewhere classifiedSac roiliitis, not elsewhere classified Mar- 2 Jonah Guillen Kiara. [address] [place] [address], [id number], [place]. tel:[phone] Consulting Provider: Lucas Talamantes, [facility] [address], [address], [place], [address]. tel:[phone] ring Provider: Emir Espinal, [address] [place] [address], [id number]. tel:[phone] [facility], [address] [place] [address], [id number] , [place] tel:[phone] [facility] [place] No Information 2 Jonah Craig. [address] [place] [address], [id number], [place]. tel:[phone] OFFICE/OUTPAT IENT VISIT, EST [facility], [address] [place] [address], [id number] , [place] tel:[phone] [facility] [place] Back Pain (chief complaint) Other intervertebra l disc degeneration, lumbar regionLong term (current) use of opiate analgesicPost laminectomy syndrome, not elsewhere classifiedSac roiliitis, not elsewhere classifiedEnc ounter for therapeutic drug level monitoringEnc ounter for screening for other disorderChron ic migraine without aura, intractable, without status migrainosus 2 Jonah Craig. [address] [place] [address], [id number], [place]. tel:[phone] Consulting Provider: [facility] [address], [address], [place], [address]. tel:[phone] ring Provider: Emir Espinal, [address] [place] [address], [id number]. tel:[phone] OFFICE VISIT, EST TELEMEDICINE [facility], [address] [place] [address], [id number] , [place] tel:[phone] [facility] [place] Back Pain (chief complaint) Other intervertebra l disc degeneration, lumbar regionLong term (current) use of opiate analgesicPost laminectomy syndrome, not elsewhere classifiedSac roiliitis, not elsewhere classified 2 Jonah Craig. [address] [place] [address], [id number], [place]. tel:[phone] Consulting Provider: [facility] [address], [address], [place], [address]. tel:[phone] OFFICE VISIT, EST TELEMEDICINE [facility], [address] [place] [address], [id number] , [place] tel:[phone] [facility] Back Pain (chief complaint) Other intervertebra l disc degeneration, lumbar regionLong term (current) use of opiate analgesicPost laminectomy syndrome, not elsewhere classifiedSac roiliitis, not elsewhere classified 1 Van Overbeke Kiara. [address] [place] [address], [id number], [place]. tel:[phone] Consulting Provider: Lucas Talamantes, [facility] [address], [address], [place], [address]. tel:[phone] OFFICE VISIT, EST TELEMEDICINE [facility], [address] [place] [address], [id number] , [place] [phone] [facility] [place] Back Pain (chief complaint) Other intervertebra l disc degeneration, lumbar regionLong term (current) use of opiate analgesicPost laminectomy syndrome, not elsewhere classifiedSac roiliitis, not elsewhere classified 1 Jonah Overberoberto carlos Kiara. [address] [place] [address], [id number], [place]. tel:[phone] Consulting Provider: Lucas Talamantes, [facility] [address], [address], [place], [address]. tel:[phone] ring Provider: Emir Espinal, [address] [place] [address], [id number]. tel:[phone] OFFICE VISIT, EST TELEMEDICINE [facility], [address] [place] [address], [id number] , [place] tel:[phone] [facility] [place] Back Pain (chief complaint) Other intervertebra l disc degeneration, lumbar regionLong term (current) use of opiate analgesicPost laminectomy syndrome, not elsewhere classifiedSac roiliitis, not elsewhere classified 1 Van Overbeke Kiara. [address] [place], [place], [id number], [place]. tel:[phone] Consulting Provider: Lucas Talamantes, [facility] [address], [address], [place], [address]. tel:[phone] OFFICE/OUTPAT IENT VISIT, EST [facility], [address] [place] [address], [id number] , [place] tel:[phone] [facility] Back Pain (chief complaint) Other intervertebra l disc degeneration, lumbar regionLong term (current) use of opiate analgesicPost laminectomy syndrome, not elsewhere classifiedSac roiliitis, not elsewhere classifiedEnc ounter for therapeutic drug level monitoring Oct- 1 Jonah Pastorberoberto carlos Craig. [address] [place], [place], [id number], [place]. tel:[phone] Consulting Provider: Lucas Talamantes, [facility] [address], [address], [place], [address]. tel:[phone] ring Provider: Emir Espinal, [address] [place] [address], [id number]. tel:[phone] [facility], [address] [place] [address], [id number] , [place] tel:[phone] [facility] Encounter for therapeutic drug level monitoringLon g term (current) use of opiate analgesic Oct- 1 Jonah Pastorberoberto carlos Kiara. [address] [place], [place], [id number], [place]. tel:[phone] Referring Provider: Emir Espinal, [address] [place] [address], [id number]. 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 [address] [place], [place], [id number], [place]. tel:[phone] Consulting Provider: Lucas Talamantes, [facility] [address] [address], [place], [address]. tel:[phone] ring Provider: Emir Espinal, [address] [place] [address], [id number]. tel:[phone] OFFICE VISIT, EST TELEMEDICINE [facility], [address] [place] [address], [id number] , [place] tel:[phone] [facility] Back Pain (chief complaint) senior living (current) use of opiate analgesicPost laminectomy syndrome, not elsewhere classifiedSac roiliitis, not elsewhere classifiedOth er intervertebra l disc degeneration, lumbosacral region 1 Jonah Craig. [address] [place] [address], [id number], [place]. tel:[phone] Consulting Provider: Lucas Talamantes, [address] [address], [place], [address]. tel:[phone] ring Provider: Emir Espinal, [address] [place] [address], [id number]. tel:[phone] [facility], [address] [place] [address], [id number] , [place] tel:[phone] [facility] Encounter for therapeutic drug level monitoringLon g term (current) use of opiate analgesic 1 Jonah Craig. [address] [place] [address], [id number], [place]. tel:[phone] Referring Provider: Emir Espinal, [address] [place] [address], [id number]. tel:[phone] OFFICE/OUTPAT IENT VISIT, EST [facility], [address] [place] [address], [id number] , [place] tel:[phone] [facility] Back Pain (chief complaint) senior living (current) use of opiate analgesicPost laminectomy syndrome, not elsewhere classifiedSac roiliitis, not elsewhere classifiedOth er intervertebra l disc degeneration, lumbosacral regionSum[facility] er for therapeutic drug level monitoring 1 Jonah Craig. [address] [place] [address], [id number], [place]. tel:[phone] Consulting Provider: Lucas Talamantes, [address] [address], [place], [address]. tel:[phone] ring Provider: Emir Espinal, [address] [place] [address], [id number]. 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 [address] [place] [address], [id number], [place]. tel:[phone] Consulting Provider: Lucas Talamantes[address] [place] [address] [address], [place], [address]. tel:[phone] ring Provider: Emir Espinal, [address] [place] [address], [id number]. tel:[phone] OFFICE VISIT, EST TELEMEDICINE [facility], [address] [place] [address], [id number] , [place] tel:[phone] [facility] Back Pain (chief complaint) Postlaminecto my syndrome, not elsewhere classifiedSac roiliitis, not elsewhere classifiedOth er intervertebra l disc degeneration, lumbosacral regionLong term (current) use of opiate analgesic May- 1 Jonah Craig. [address] [place] [address], [id number], [place]. tel:[phone] Consulting Provider: Lucas Talamantes, [address] Mar[address] [facility], [place], [address]. tel:[phone] ring Provider: Emir Espinal, [address] [place] [address], [id number]. tel:[phone] OFFICE VISIT, EST TELEMEDICINE [facility], [address] [place] [address], [id number] , [place] tel:[phone] [facility] Back Pain (chief complaint) Postlaminecto my syndrome, not elsewhere classifiedSac roiliitis, not elsewhere classifiedOth er intervertebra l disc degeneration, lumbosacral regionLong term (current) use of opiate analgesic Apr-3 1 Jonah Pastorberoberto carlos Craig. [address] [place] [address], [id number], [place]. tel:[phone] Consulting Provider: Lucas Talamantes, [address] [address], [place], [address]. tel:[phone] ring Provider: Emir Espinal, [address] [place] [address], [id number]. tel:[phone] OFFICE VISIT, EST TELEMEDICINE [facility], [address] [place] [address], [id number] , [place] tel:[phone] [facility] [place] Back Pain (chief complaint) Postlaminecto my syndrome, not elsewhere classifiedSac roiliitis, not elsewhere classifiedOth er intervertebra l disc degeneration, lumbosacral regionLong term (current) use of opiate analgesic Mar- 1 Jonah Pastorberoberto carlos Kiara. [address] [place] [address], [id number], [place]. tel:[phone] Consulting Provider: Lucas Talamantes, [address] Prof [address] [place] [address], [place], [address]. tel:[phone] ring Provider: Emir Espinal, [address] [place] [address], [id number]. tel:[phone] OFFICE VISIT, EST TELEMEDICINE [facility], [address] [place] [address], [id number] , [place] tel:[phone] [facility] Back Pain (chief complaint) senior living (current) use of opiate analgesicPost laminectomy syndrome, not elsewhere classifiedSac roiliitis, not elsewhere classifiedOth er intervertebra l disc degeneration, lumbosacral region 1 Van Overbeke Kiara. [address] [place] [address], [id number], [place]. tel:[phone] Consulting Provider: Lucas Talamantes [address] Prof [address], [address]. tel:[phone] ring Provider: Emir Espinal, [address] [place] [address], [id number]. tel:[phone] OFFICE VISIT, EST TELEMEDICINE [facility], [address] [place] [address], [id number] , [place] tel:[phone] [facility] Back Pain (chief complaint) senior living (current) use of opiate analgesicPost laminectomy syndrome, not elsewhere classifiedSac roiliitis, not elsewhere classifiedOth er intervertebra l disc degeneration, lumbosacral region 0 Van Overbeke Kiara. [address] [place] [address], [id number], [place]. tel:[phone] Consulting Provider: Lucas Talamantes, [address] [address], [place], [address]. tel:[phone] ring Provider: Emir Espinal, [address] [place] [address], [id number]. 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 [address] [place] [address], [id number], [place]. tel:[phone] Referring Provider: Emir Espinal, [address] [place] [address], [address]. tel:[phone] OFFICE VISIT, [facility] TELEMEDICINE [facility], [address] [place] [address], [id number] , [place] [phone] [facility] [place] Back Pain (chief complaint) termite technician (current) use of opiate analgesicPost laminectomy syndrome, not elsewhere classifiedSac roiliitis, not elsewhere classifiedOth er intervertebra l disc degeneration, lumbosacral region Oct- 0 Van Overbeke Kiara. [address] [place] [address], [id number], [place]. tel:[phone] Referring Provider: Emir Espinal, [address] [place] [address], [id number]. tel:[phone] OFFICE VISIT, [facility], [address] [place] [address], [id number] , [place] [phone] [facility] [place] Back Pain (chief complaint) senior living (current) use of opiate analgesicPost laminectomy syndrome, not elsewhere classifiedSac roiliitis, not elsewhere classifiedOth er intervertebra l disc degeneration, lumbosacral region Sep-2 0 Van Overbeke Kiara. [address] [place] [address], [id number], [place]. tel:[phone] Referring Provider: Emir Espinal, [address] [place] [address], [id number]. tel:[phone] OFFICE/OUTPAT IENT VISIT, [facility], [address] [place] [address], [id number] , [place] tel:[phone] [facility] Back Pain (chief complaint) senior living (current) use of opiate analgesicPost laminectomy syndrome, not elsewhere classifiedSac roiliitis, not elsewhere classifiedOth er intervertebra l disc degeneration, lumbosacral region 0 Jonah Craig. [address] [place] [address], [id number], [place]. tel:[phone] Referring Provider: Emir Espinal, [address] [place] [address], [id number]. 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 [address] [place] [address], [id number], [place]. tel:[phone] Consulting Provider: Lucas Talamantes [facility], [facility] [address] [facility] [address] [facility] Marlon [facility], [place], [address]. tel:[phone] ring Provider: Emir Espinal, [address] [place] [address], [id number]. tel:[phone] OFFICE VISIT, [facility], [address] [place] [address], [id number] , [place] tel:[phone] [facility] Back Pain (chief complaint) senior living (current) use of opiate analgesicPost laminectomy syndrome, not elsewhere classifiedSac roiliitis, not elsewhere classifiedOth er intervertebra l disc degeneration, lumbosacral region 0 Jonah Craig. [address] [place] [address], [id number], [place]. tel:[phone] Referring Provider: Emir Espinal, [address] [place] [address], [id number]. tel:[phone] OFFICE VISIT, EST TELEMEDICINE [facility], [address] [place] [address], [id number] , [place] tel:[phone] [facility] Back Pain (chief complaint) senior living (current) use of opiate analgesicPost laminectomy syndrome, not elsewhere classifiedSac roiliitis, not elsewhere classifiedOth er intervertebra l disc degeneration, lumbosacral region May-2 0-202 0 Van Overbeke Kiara. [address] [place] [address], [id number], [place]. tel:[phone] Consulting Provider: Lucas AU, [address] [place] [facility], [place], [address]. tel:[phone] ring Provider: Emir Espinal, [address] [place] [address], [address]. tel:[phone] OFFICE VISIT, EST TELEMEDICINE [facility], [address] [place] [address], [id number] , [place] tel:[phone] [facility] Back Pain (chief complaint) senior living (current) use of opiate analgesicPost laminectomy syndrome, not elsewhere classifiedSac roiliitis, not elsewhere classifiedOth er intervertebra l disc degeneration, lumbosacral region Apr-2 2- 0 Jonah Pastorberoberto carlos Kiara. [address] [place] [address], [id number], [place]. tel:[phone] Consulting Provider: Lucas AU, [address] [place] [address], [place], [address]. tel:[phone] ring Provider: Emir Espinal, [address] [place] [address], [id number]. 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 [address] [place], [place], [id number], [place]. tel:[phone] Consulting Provider: Lucas AU, [address] Prof eMrcado [facility] [address] [address], [place], [address]. tel:[phone] ring Provider: Emir Espinal, [address] [place] [address], [id number]. tel:[phone] OFFICE/OUTPAT IENT VISIT, [facility], [address] [place] [address], [id number] , [place] tel:[phone] [facility] Back Pain (chief complaint) termite technician (current) use of opiate analgesicEnco unter for therapeutic drug level monitoringPos tlaminectomy syndrome, not elsewhere classifiedSac roiliitis, not elsewhere classifiedOth er intervertebra l disc degeneration, lumbosacral region 0 Jonah Overberoberto carlos Huertase. [address] [place] [address], [id number], [place]. tel:[phone] Consulting Provider: Lucas AU, [address] [facility] [address] [place] [address], [place], [address]. tel:[phone] ring Provider: Emir Espinal, [address] [place] [address], [id number]. tel:[phone] OFFICE/OUTPAT IENT VISIT, [facility], [address] [place] [address], [id number] , [place] tel:[phone] [facility] Back Pain (chief complaint) termite technician (current) use of opiate analgesicPost laminectomy syndrome, not elsewhere classifiedSac roiliitis, not elsewhere classifiedOth er intervertebra l disc degeneration, lumbosacral region 0 Van Overbeke Kiara. [address] [place] [address], [id number], [place]. tel:[phone] Consulting Provider: Lucas AU, [address], [place], [address]. tel:[phone] ring Provider: Emir Espinal, [address] [place] [address], [id number]. tel:[phone] OFFICE/OUTPAT IENT VISIT, [facility], [address] [place] [address], [id number] , [place] [phone] [facility] Back Pain (chief complaint) senior living (current) use of opiate analgesicSacr oiliitis, not elsewhere classifiedOth er intervertebra l disc degeneration, lumbosacral regionPostlam inectomy syndrome, not elsewhere classified 0 Jonah Craig. [address] [place] [address], [id number], [place]. tel:[phone] Consulting Provider: Lucas AU, [address] [place] [address], [place], [address]. tel:[phone] ring Provider: Emir Espinal, [address] [place] [address], [address]. tel:[phone] OFFICE/OUTPAT IENT VISIT, [facility], [address] [place] [address], [id number] , [place] tel:[phone] [facility] Back Pain (chief complaint) senior living (current) use of opiate analgesicLow back painSacroilii tis, not elsewhere classifiedPos tlaminectomy syndrome, not elsewhere classifiedOth er intervertebra l disc degeneration, lumbosacral region 9 Jonah Craig. [address] [place] [address], [id number], [place]. tel:[phone] Consulting Provider: Lucas AU, [facility] [address] [place] [address], [place], [address]. tel:[phone] ring Provider: Emir Espinal [address] [place], [address]. 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 [address] [place], [place], [id number], [place]. tel:[phone] Consulting Provider: Lucas AU, [address], [facility]. tel:[phone] ring Provider: Emir Espinal, [address] [place] [address], [id number]. tel:[phone] OFFICE/OUTPAT IENT VISIT, EST [facility], [address] [place] [address], [id number] , [place] tel:[phone] [facility] Back Pain (chief complaint) Postlaminecto my syndrome, not elsewhere classifiedOth er intervertebra l disc degeneration, lumbosacral regionSacroil iitis, not elsewhere classifiedLow back painLong term (current) use of opiate analgesicEnco unter for therapeutic drug level monitoring Jonah Overberoberto carlos Kiara. [address] [place], [place], [id number], [place]. tel:[phone] Consulting Provider: Lucas AU, [address] Merc[address], [address]. tel:[phone] ring Provider: Emir Espinal, [address] [place], [address]. tel:[phone] OFFICE/OUTPAT IENT VISIT, EST [facility], [address] [place], [place], [id number] , [place] tel:[phone] [facility] Back Pain (chief complaint) Postlaminecto my syndrome, not elsewhere classifiedOth er intervertebra l disc degeneration, lumbosacral regionSacroil iitis, not elsewhere classifiedLow back painLong term (current) use of opiate analgesic Aug-3 9 Van Overbeke Kiara. [address] [place], [place], [id number], [place]. tel:[phone] Consulting Provider: Lucas AU, [address] [address], [place], [address]. [phone] ring Provider: Emir Espinal, [address] [place] [address], [address]. [phone] OFFICE/OUTPAT IENT VISIT, EST [facility], [address] [place] [address], [id number] , [place] tel:[phone] [facility] [place] Back Pain (chief complaint) Postlaminecto my syndrome, not elsewhere classifiedOth er intervertebra l disc degeneration, lumbosacral regionSacroil iitis, not elsewhere classifiedLow back painLong term (current) use of opiate analgesic Aug-0 9 Van Overbeke Kiara. [address] [place] [address], [id number], [place]. tel:[phone] Consulting Provider: Lucas AU, [facility] [address] [address], [place], [address]. tel:[phone] ring Provider: Emir Espinal, [address] [place] [address], [address]. tel:[phone] OFFICE/OUTPAT IENT VISIT, EST [facility], [address] [place] [address], [id number] , [place] [phone] [facility] [place] Back [facility] (chief complaint) Postlaminecto my syndrome, not elsewhere classifiedOth er intervertebra l disc degeneration, lumbosacral regionSacroil iitis, not elsewhere classifiedLow back painLong term (current) use of opiate analgesic Jonah Craig. [address] [place] [address], [id number], [place]. tel:[phone] Consulting Provider: Lucas AU, [address] [place] [address], [place], [address]. tel:[phone] ring Provider: Emir Espinal, [address] [place] [address], [address]. tel:[phone] OFFICE/OUTPAT IENT VISIT, [facility], [address] [place] [address], [id number] , tel:[phone] [facility] [place] Back Pain (chief complaint) Postlaminecto my syndrome, not elsewhere classifiedOth er intervertebra l disc degeneration, lumbosacral regionSacroil iitis, not elsewhere classifiedLow back painLong term (current) use of opiate analgesicEnco unter for therapeutic drug level monitoring Jonah Craig. [address] [place] [address], [id number], [place]. tel:[phone] Consulting Provider: Lucas AU, [address] [place] [address], [place], [address]. tel:[phone] ring Provider: Emir Espinal, [address] [place] [address], [address]. tel:[phone] OFFICE/OUTPAT IENT VISIT, EST [facility], [address] [place] [address], [id number] , [place] tel:[phone] [facility] Back Pain (chief complaint) Postlaminecto my syndrome, not elsewhere classifiedOth er intervertebra l disc degeneration, lumbosacral regionSacroil iitis, not elsewhere classifiedLow back painLong term (current) use of opiate analgesic Miguel-0 2-201 9 Van Overbeke Kiara. [address] [place] [address], [id number], [place]. tel:[phone] Consulting Provider: Lucas AU, [address] [place] [address], [place], [address]. tel:[phone] ring Provider: Emir Espinal, [address] [place] [address], [address]. tel:[phone] OFFICE/OUTPAT IENT VISIT, [facility], [address] [place] [address], [id number] , [place] [phone] [facility] Back Pain (chief complaint) Sacroiliitis, not elsewhere classifiedPos tlaminectomy syndrome, not elsewhere classifiedOth er intervertebra l disc degeneration, lumbosacral regionLow back painLong term (current) use of opiate analgesic Dec-0 3201 8 Van Overbeke Kiara. [address] [place] [address], [id number], [place]. tel:[phone] Consulting Provider: Lucas AU, [address] [place] [address], [place], [address]. tel:[phone] ring Provider: Emir Espinal, [address] [place] [address], [id number]. tel:[phone] OFFICE/OUTPAT IENT VISIT, EST [facility], [address] [place] [address], [id number] , [place] tel:[phone] [facility] Back Pain (chief complaint) Sacroiliitis, not elsewhere classifiedPos tlaminectomy syndrome, not elsewhere classifiedOth er intervertebra l disc degeneration, lumbosacral regionLow back pain Nov-0 1-201 8 Van Overbeke Kiara. [address] [place] [address], [id number], [place]. tel:[phone] Consulting Provider: Lucas AU, [address] [facility], [place], [address]. tel:[phone] ring Provider: Emir Espinal, [address] [place] [address], [address]. tel:[phone] OFFICE/OUTPAT IENT VISIT, [facility], [address] [place] [address], [id number] , [place] tel:[phone] [facility] Back Pain (chief complaint) Sacroiliitis, not elsewhere classifiedPos tlaminectomy syndrome, not elsewhere classifiedOth er intervertebra l disc degeneration, lumbosacral regionLow back pain Nov-0 1 8 Van Overbeke Kiara. [address] [place] [address], [id number], [place]. tel:[phone] Consulting Provider: Lucas AU, [address] [place] [address], [place], [address]. tel:[phone] ring Provider: Emir Espinal, [address] [place] [address], [address]. tel:[phone] OFFICE/OUTPAT IENT VISIT, [facility], [address] [place] [address], [id number] , [place] [phone] [facility] Back Pain (chief complaint) Sacroiliitis, not elsewhere classifiedPos tlaminectomy syndrome, not elsewhere classifiedOth er intervertebra l disc degeneration, lumbosacral regionLow back pain Sep-0 8 Jonah Pastorberoberto carlos Kiara. [address] [place] [address], [id number], [place]. tel:[phone] Consulting Provider: Lucas AU, [address]lon [facility], [place], [address]. tel:[phone] ring Provider: Emir Espinal, [address] [place] [address], [address]. tel:[phone] OFFICE/OUTPAT IENT VISIT, [facility], [address] [place] [address], [id number] , [place] [phone] [facility] Back Pain (chief complaint) Sacroiliitis, not elsewhere classifiedPos tlaminectomy syndrome, not elsewhere classifiedLow back painOther intervertebra l disc degeneration, lumbosacral region Clifford-0 6-201 8 Van Overbeke Kiara. [address] [place] [address], [id number], [place]. tel:[phone] Consulting Provider: Lucas AU, [address] Prof [address], [address]. tel:[phone] ring Provider: Emir Espinal, [address] [place] [address], [address]. tel:[phone] OFFICE/OUTPAT IENT VISIT, [facility], [address] [place] [address], [id number] , [place] [phone] [facility] Back Pain (chief complaint) Sacroiliitis, not elsewhere classifiedPos tlaminectomy syndrome, not elsewhere classifiedLow back painOther intervertebra l disc degeneration, lumbosacral region Apr-0 6-201 8 Jonah Overbeke Kiara. [address] [place] [address], [id number], [place]. tel:[phone] Consulting Provider: Lucas AU, [address] Prof Merc[address] [place] [address], [place], [address]. tel:[phone] ring Provider: Emir Espinal, [address] [place] [address], [address]. tel:[phone] OFFICE/OUTPAT IENT VISIT, [facility], [address] [place] [address], [id number] , [place] tel:[phone] [facility] Back Pain (chief complaint) Postlaminecto my syndrome, not elsewhere classifiedLow back painSacroilii tis, not elsewhere classified Fe 8 Van Overbeke Kiara. [address] [place] [address], [id number], [place]. tel:[phone] Consulting Provider: Lucas AU, [facility] [address] [facility] [address] [facility] [address] [facility] [address], [place], [address]. tel:[phone] ring Provider: Emir Espinal, [address] [place] [address], [address]. tel:[phone] OFFICE/OUTPAT IENT VISIT, [facility], [address] [place] [address], [id number] , [place] tel:[phone] [facility] Back Pain (chief complaint) Postlaminecto my syndrome, not elsewhere classifiedSac roiliitis, not elsewhere classifiedOth er intervertebra l disc degeneration, lumbosacral region Jonah Pastorberoberto carlos Craig. [address] [place] [address], [id number], [place]. tel:[phone] Referring Provider: Emir Espinal, [address] [place] [address], [address]. tel:[phone] OFFICE/OUTPAT IENT VISIT, [facility], [address] [place] [address], [id number] , [place] tel:[phone] [facility] Back Pain (chief complaint) Postlaminecto my syndrome, not elsewhere classifiedSac roiliitis, not elsewhere classifiedOth er intervertebra l disc degeneration, lumbosacral region 7 Van Overbeke Kiara. [address] [place] [address], [id number], [place]. tel:[phone] Referring Provider: Emir Espinal, [address] [place] [address], [address]. tel:[phone] OFFICE/OUTPAT IENT VISIT, [facility] [facility], [address] [place] [address], [id number] , [place] tel:[phone] [facility] [place] Back Pain (chief complaint) Postlaminecto my syndrome, not elsewhere classifiedSac roiliitis, not elsewhere classifiedOth er intervertebra l disc degeneration, lumbosacral region 7 Jonah Craig. [address] [place] [address], [id number], [place]. tel:[phone] Consulting Provider: Lucas Talamantes PAC, [facility] [address] [facility] 675 [facility] [address], [place], [address]. tel:[phone] ring Provider: Emir Espinal, [address] [place] [address], [address]. tel:[phone] OFFICE/OUTPAT IENT VISIT, EST [facility], [address] [place] [address], [id number] , [place] tel:[phone] [facility] [place] Back Pain (chief complaint) Postlaminecto my syndrome, not elsewhere classifiedOth er intervertebra l disc degeneration, lumbosacral regionSacroil iitis, not elsewhere classifiedLon g term (current) use of opiate analgesic 7 Jonah Craig. [address] [place] [address], [id number], [place]. tel:[phone] Referring Provider: Emir Espinal, [address] [place] [address], [address]. tel:[phone] OFFICE/OUTPAT IENT VISIT, EST [facility], [address] [place] [address], [id number] , [place] tel:[phone] [facility] [place] Back Pain (chief complaint) Postlaminecto my syndrome, not elsewhere classifiedOth er intervertebra l disc degeneration, lumbosacral regionSacroil iitis, not elsewhere classified Sep 7 Ney Quinones. [address] [place] [address], [id number], [place]. tel:[phone] Consulting Provider: Lucas AU, [facility] [address], [place], [address]. tel:[phone] ring Provider: Emir Espinal, [address] [place] [address], [address]. tel:[phone] OFFICE/OUTPAT IENT VISIT, [facility], [address] [place] [address], [id number] , [place] tel:[phone] [facility] [place] Back Pain (chief complaint) Postlaminecto my syndrome, not elsewhere classifiedOth er intervertebra l disc degeneration, lumbosacral region 7 Jonah Craig. [address] [place] [address], [id number], [place]. tel:[phone] Referring Provider: Emir Espinal, [address] [place] [address], [address]. tel:[phone] OFFICE/OUTPAT IENT VISIT, [facility], [address] [place] [address], [id number] , [place] tel:[phone] [facility] [place] Back Pain (chief complaint) Postlaminecto my syndrome, not elsewhere classifiedOth er intervertebra l disc degeneration, lumbosacral region 7 Ney Quinones. [address] [place], [place], [id number], [place]. tel:[phone] Consulting Provider: Lucas AU, [facility] [address], [place], [address]. tel:[phone] ring Provider: Emir Espinal, [address] [place] [address], [id number]. tel:[phone] OFFICE/OUTPAT IENT VISIT, [facility], [address] [place] [address], [id number] , [place] [phone] [facility] [place] low back pain (chief complaint) Postlaminecto my syndrome, not elsewhere classifiedLow back pain Ney Quinones. [address] [place] [address], [id number], [place]. tel:[phone] Consulting Provider: Lucas AU, [facility] [address] [facility] [address], [place], [address]. tel:[phone] ring Provider: Emir Espinal, [address] [place] [address], [address]. tel:[phone] OFFICE/OUTPAT IENT VISIT, [facility], [address] [place] [address], [id number] , [place] tel:[phone] [facility] low back pain (chief complaint) Low back painPostlamin ectomy syndrome, not elsewhere classified Neydarrel Quinones. [address] [place] [address], [id number], [place]. tel:[phone] Referring Provider: Emir Espinal, [address] [place] [address], [id number]. tel:[phone] OFFICE/OUTPAT IENT VISIT, [facility], [address] [place] [address], [id number] , [place] tel:[phone] [facility] low back pain (chief complaint) Low back painPostlamin ectomy syndrome, not elsewhere classified Ney Quinones. [address] [place] [address], [id number], [place]. tel:[phone] Consulting Provider: Lucas AU, [address] [place] [address], [place], [address]. tel:[phone] ring Provider: Emir Espinal, [address] [place] [address], [address]. tel:[phone] OFFICE/OUTPAT IENT VISIT, [facility], [address] [place] [address], [id number] , [place] tel:[phone] [facility] [place] Back Pain (chief complaint) Postlaminecto my syndrome, not elsewhere classified Ney Stacie. [address] [place], [place], [id number], [place]. tel:[phone] Consulting Provider: Lucas AU, [address] [facility] [address], [place], [address]. tel:[phone] ring Provider: Emir Espinal, [address] [place] [address], [address]. tel:[phone] OFFICE/OUTPAT IENT VISIT, [facility], [address] [place] [address], [id number] , [place] [phone] [facility] [place] Back Pain (chief complaint) Postlaminecto my syndrome, not elsewhere classifiedLon g term (current) use of opiate analgesic Ever Medina. [address] [place], [place], [id number], [place]. tel:[phone] Consulting Provider: Lucas AU, [address] [place] [address], [place], [address]. tel:[phone] ring Provider: Emir Espinal, [address] [place], [address]. tel:[phone] OFFICE/OUTPAT IENT VISIT, EST [facility], [address] [place], [place], [id number] , [place] [phone] [facility] [place] low back pain (chief complaint) Low back painPostlamin ectomy syndrome, not elsewhere classified Ney Morgana. [address] [place], [place], [id number], [place]. tel:[phone] Consulting Provider: Lucas AU, [address], [place], [address]. [phone] ring Provider: Emir Espinal, [address] [place] [address], [address]. [phone] OFFICE/OUTPAT IENT VISIT, EST [facility], [address] [place] [address], [id number] , [place] [phone] [facility] [place] low back pain (chief complaint) Low back painPostlamin ectomy syndrome, not elsewhere classified 6 Ney Stacie. [address] [place], [place], [id number], [place]. tel:[phone] Consulting Provider: Lucas AU, [address] [place] [address], [place], [address]. tel:[phone] ring Provider: Emir Espinal, [address] [place] [address], [address]. [phone] OFFICE/OUTPAT IENT VISIT, [facility], [address] [place] [address], [id number] , [place] [phone] [facility]) Low back painPostlamin ectomy syndrome, not elsewhere classified 6 Ney Stacie. [address] [place], [place], [id number], [place]. tel:[phone] Consulting Provider: Lucas AU, [address], [place], [address]. tel:[phone] ring Provider: Emir Espinal, [address] [place] [address], [address]. tel:[phone] OFFICE/OUTPAT IENT VISIT, [facility], [address] [place] [address], [id number] , [place] tel:[phone] [facility] low back pain (chief complaint) Other cervical disc degeneration, high cervical regionLow back painPostlamin ectomy syndrome, not elsewhere classified 6 Ney Quinones. [address] [place] [address], [id number], [place]. tel:[phone] Consulting Provider: Lucas AU, [address] [place] [address], [place], [address]. tel:[phone] ring Provider: Emir Espinal, [address] [place] [address], [address]. tel:[phone] OFFICE/OUTPAT IENT VISIT, [facility], [address] [place] [address], [id number] , [place] tel:[phone] [facility] [place] Neck pain (chief complaint)l ow back pain (chief complaint) Other cervical disc degeneration, high cervical regionLow back painPostlamin ectomy syndrome, not elsewhere classified 0 6 Ney Quinones. [address] [place] [address], [id number], [place]. tel:[phone] Consulting Provider: Lucas AU, [address] [place] [address], [place], [address]. tel:[phone] ring Provider: Emir Espinal, [address] [place] [address], [address]. tel:[phone] OFFICE/OUTPAT IENT VISIT, [facility], [address] [place] [address], [id number] , [place] tel:[phone] [facility] [place] low back pain (chief complaint) Postlaminecto my syndrome, not elsewhere classifiedLow back painLong term (current) use of opiate analgesic Sep-0 6 Yasir Campos. [address] [place], [place], [id number], [place]. tel:[phone] Consulting Provider: Lucas AU, [address] 675 [facility] [address], [place], [address]. tel:[phone] ring Provider: Emir Espinal, [address] [place] [address], [address]. tel:[phone] OFFICE/OUTPAT IENT VISIT, [facility], [address] [place] [address], [id number] , [place] [phone] [facility] low back pain (chief complaint) Postlaminecto my syndrome, not elsewhere classifiedLow back pain 6 Yasir Beth. [address] [place] [address], [id number], [place]. tel:[phone] Referring Provider: Emir Espinal, [address] [place] [address], [address]. tel:[phone] OFFICE/OUTPAT IENT VISIT, [facility], [address] [place] [address], [id number] , [place] tel:[phone] [facility] [place] low back pain (chief complaint) Postlaminecto my syndrome, not elsewhere classifiedLow back pain 6 Yasir Campos. [address] [place] [address], [id number], [place]. tel:[phone] Consulting Provider: Lucas AU, [facility] [address] [facility] [address], [place], [address]. tel:[phone] ring Provider: Emir Espinal, [address] [place] [address], [address]. tel:[phone] OFFICE/OUTPAT IENT VISIT, [facility], [address] [place] [address], [id number] , [place] tel:[phone] [facility] [place] low back pain (chief complaint) Low back painPostlamin ectomy syndrome, not elsewhere classified 6 Ney Quinones. [address] [place] [address], [id number], [place]. tel:[phone] Consulting Provider: Lucas AU, [facility] [address] [facility], [place], [address]. tel:[phone] ring Provider: Emir Espinal, [address] [place] [address], [address]. tel:[phone] OFFICE/OUTPAT IENT VISIT, [facility], [address] [place] [address], [id number] , [place] tel:[phone] [facility] low back pain (chief complaint) Low back painPostlamin ectomy syndrome, not elsewhere classified Ney Quinones. [address] [place] [address], [id number], [place]. tel:[phone] Consulting Provider: Lucas AU, [facility] [address] [place] [address], [place], [address]. tel:[phone] ring Provider: Emir Espinal, [address] [place] [address], [address]. tel:[phone] OFFICE/OUTPAT IENT VISIT, [facility], [address] [place] [address], [id number] , [place] tel:[phone] [facility] low back pain (chief complaint) Postlaminecto my syndrome, not elsewhere classifiedLow back pain Yasir Beth. [address] [place] [address], [id number], [place]. tel:[phone] Consulting Provider: Lucas AU, [facility] [address] [place] [address], [place], [address]. tel:[phone] ring Provider: Emir Espinal, [address] [place] [address], [address]. tel:[phone] OFFICE/OUTPAT IENT VISIT, [facility], [address] [place] [address] [place], [id number] , [place] tel:[phone] [facility]) Low back painPostlamin ectomy syndrome, not elsewhere classified 6 Ney Stacie. [address] [place], [place], [id number], [place]. tel:[phone] Consulting Provider: Lucas AU, [facility] [address], [place], [address]. tel:[phone] ring Provider: Emir Espinal, [address] [place] [address], [address]. tel:[phone] OFFICE/OUTPAT IENT VISIT, [facility], [address] [place] [address], [id number] , [place] tel:[phone] [facility] low back pain (chief complaint) Low back pain 6 Ney Stacie. [address] [place], [place], [id number], [place]. tel:[phone] Consulting Provider: Lucsa AU, [address], [place], [address]. tel:[phone] ring Provider: Emir Espinal, [address] [place] [address], [address]. tel:[phone] OFFICE/OUTPAT IENT VISIT, [facility], [address] [place] [address], [id number] , [place] tel:[phone] [facility] low back pain (chief complaint) Low back painPostlamin ectomy syndrome, not elsewhere classified 6 Ney Stacie. [address] [place], [place], [id number], [place]. tel:[phone] Consulting Provider: Lucas AU, [address], [place], [address]. tel:[phone] ring Provider: Emir Espinal, [address] [place] [address], [address]. [phone] OFFICE/OUTPAT IENT VISIT, EST [facility], [address] [place] [address], [id number] , [place] [phone] [facility] [place] low back pain (chief complaint) Low back painPostlamin ectomy syndrome, not elsewhere classified 5 Ney Stacie. [address] [place], [place], [id number], [place]. tel:[phone] Consulting Provider: Lucas AU, [address], [address]. [phone] ring Provider: Emir Espinal, [address] [place] [address], [address]. [phone] OFFICE/OUTPAT IENT VISIT, [facility], [address] [place] [address], [id number] , [place] tel:[phone] [facility] low back pain (chief complaint) Trochanteric bursitis, right hipTrochanter ic bursitis, left hipLow back painPostlamin ectomy syndrome, not elsewhere classified 5 Ney Stacie. [address] [place], [place], [id number], [place]. tel:[phone] Consulting Provider: Lucas AU, [facility] [address] [place] [address], [place], [address]. tel:[phone] ring Provider: Emir Espinal, [address] [place] [address], [address]. tel:[phone] OFFICE/OUTPAT IENT VISIT, [facility], [address] [place] [address], [id number] , [place] tel:[phone] [facility] low back pain (chief complaint) Low back painPostlamin ectomy syndrome, not elsewhere classified - 5 Neydarrel Morgana. [address] [place] [address], [id number], [place]. tel:[phone] Consulting Provider: Lucas AU, [facility] [address], [place], [address]. tel:[phone] ring Provider: Emir Espinal, [address] [place] [address], [address]. tel:[phone] OFFICE/OUTPAT IENT VISIT, [facility], [address] [place] [address], [id number] , [place] tel:[phone] [facility] low back pain (chief complaint) LumbagoPostla minectomy syndrome of lumbar region Sep-2 - 5 Ney Quinones. [address] [place] [address], [id number], [place]. tel:[phone] Consulting Provider: Lucas AU, [address] [facility], [place], [address]. tel:[phone] ring Provider: Emir Espinal, [address] [place] [address], [address]. tel:[phone] OFFICE/OUTPAT IENT VISIT, [facility], [address] [place] [address], [id number] , [place] tel:[phone] [facility] low back pain (chief complaint) LumbagoPostla minectomy syndrome of lumbar regionEncount er for current nursing home use of high risk medication Sep-0 3-201 5 Ney Stacie. [address] [place], [place], [id number], [place]. tel:[phone] Consulting Provider: Lucas AU, [facility] [address], [place], [address]. tel:[phone] ring Provider: Emir Espinal, [address] [place] [address], [address]. tel:[phone] OFFICE/OUTPAT IENT VISIT, [facility], [address] [place] [address], [id number] , [place] [phone] [facility] low back pain (chief complaint) LumbagoPostla minectomy syndrome of lumbar region 5 Ney Quinones. [address] [place] [address], [id number], [place]. tel:[phone] Consulting Provider: Lucas AU, [address] [place] [address], [place], [address]. tel:[phone] ring Provider: Emir Espinal, [address] [place] [address], [address]. tel:[phone] OFFICE/OUTPAT IENT VISIT, [facility], [address] [place] [address], [id number] , [place] [phone] [facility] (chief complaint) Lumbar failed back surgery syndrome No Information Consulting Provider: Lucas AU, [address] [place] [address], [place], [address]. tel:[phone] ring Provider: Emir Espinal, [address] [place] [address], [address]. tel:[phone] OFFICE/OUTPAT IENT VISIT, [facility], [address] [place] [address], [id number] , [place] [phone] [facility] Back Pain (chief complaint) Lumbar failed back surgery syndromeEncou nter for current nursing home use of high risk medication No Information Referring Provider: Emir Espinal, [address] [place] [address], [address]. tel:[phone] OFFICE/OUTPAT IENT VISIT, [facility], [address], [place], [id number] , [place] tel:[phone] [facility] low back pain (chief complaint) Lumbar failed back surgery syndrome 0 5 No Information Referring Provider: Emir Espinal, [address] [place], [address]. tel:[phone] OFFICE/OUTPAT IENT VISIT, [facility], [address], [place], [id number] , [place] tel:[phone] [facility] [place] Back Pain (chief complaint) Lumbar failed back surgery syndromeEncou nter for current nursing home use of high risk medication No Information Referring Provider: Emir Espinal, [address] [place], [address]. tel:[phone] Family History Family Member Type Diagnosis Age At Onset No Information Payers Payer name Insurance type Covered green party ID Authoriza tiflaco(s) [employer] [id number] CI [id number] Social History Type Description Quantity Date Captured [...] Goal OARS. Due on due Goal Tobacco screening. Due on due Goal Creatinine. Due on due Goal Review Allergy List. Due on due Goal AST (SGOT). Due on due Goal Zoster vaccine ( 1st). Due on due Goal PRODUCTION SOUND MIXER Paperwork. Due on due Goal ALT (SGPT). [...] C scre ening. Due on due Goal MICRO COMPUTER SPECIALIST Scanned. Due on due Goal Unhealthy drug u se screening. Due on due Goal HPV. Due on due Goal Height. Due on d ue Goal Update Social Hi story. Due on due Goal Hepatitis C scre ening. Due on due Goal PRODUCTION SOUND MIXER Paperwork. Due on due Goal Review Allergy List. Due on due Goal PHQ-9. Due on du e Goal Creatinine. Due on due Goal Tobacco screening. Due on due Goal AST (SGOT). Due on due Goal ALT (SGPT). Due on due Goal OARS. Due on due Goal MICRO COMPUTER SPECIALIST Scanned. Due on due Goal Order Annual [...] due Goal HPV. Due on due Goal PRODUCTION SOUND MIXER Paperwork. Due on due Goal Hepatitis C scre ening. Due on due Goal Order Annual PT. Due on due Goal Tobacco screening. Due on due Goal Creatinine. Due on due Goal Update Social Hi story. Due on due Goal PHQ-9. Due on du e Goal AST (SGOT). Due on due Goal FIT. Due on due Goal Weight. Due on d ue Goal MICRO COMPUTER SPECIALIST Scanned. Due on due Goal Review Allergy [...] Goal AST (SGOT). Due on due Goal MICRO COMPUTER SPECIALIST Scanned. Due on due Goal ALT (SGPT). Due on due Goal Order Annual PT. Due on due Goal Creatinine. Due on due Goal OARS. Due on due Goal PRODUCTION SOUND MIXER Paperwork. Due on due Goal Height. Due [...] due Goal UDT. Due on due Goal MICRO COMPUTER SPECIALIST Scanned. Due on due Goal OARS. Due [...] Order Annual PT. Due on due Goal PRODUCTION SOUND MIXER Paperwork. Due on due Goal AST (SGOT). Due on due Goal Hepatitis C scre ening. Due on due Goal MICRO COMPUTER SPECIALIST Scanned. Due on due Goal Update Social Hi story. Due on due Goal Creatinine. Due on due Goal Order Annual PT. Due on due Goal Medication Recon ciliation. Due on due Goal PRODUCTION SOUND MIXER Paperwork. Due on due Goal Zoster vaccine [...] Goal AST (SGOT). Due on due Goal Lifestyle education regardin g diet completed Goal Unhealthy drug u se screening. Due on due Goal CT-Colonography. Due on due Goal Update Social Hi story. Due on due Goal Order Annual PT. Due on due Goal PRODUCTION SOUND MIXER Paperwork. Due on due Goal ALT (SGPT). Due on due Goal MICRO COMPUTER SPECIALIST Scanned. Due on due Goal AST (SGOT). [...] e Goal FIT. Due on due Goal Medication [...] du e Goal ALT (SGPT). Due on 24 due Goal PRODUCTION SOUND MIXER Paperwork. Due on due Goal Order Annual PT. Due on due Goal Creatinine. Due on due Goal OARS. Due on due Goal AST (SGOT). Due on due Goal UDT. Due on due Goal MICRO COMPUTER SPECIALIST Scanned. Due on due Goal Unhealthy drug u se screening. Due on due Goal Zoster vaccine ( ). Due on due Goal Tobacco Use. Due [...] C scre ening. Due on due Goal PRODUCTION SOUND MIXER Paperwork. Due on due Goal Lipid panel. Due on due Goal Creatinine. Due on due Goal Order Annual PT. Due on due Goal ALT (SGPT). Due on due Goal MICRO COMPUTER SPECIALIST Scanned. Due on due Goal UDT. Due on due Goal CT-Colonography. Due on due Goal PHQ-9. Due on du e Goal Unhealthy drug u se screening. Due on due Goal Update Social Hi story. Due on due Goal HPV. Due on due Goal FIT. Due on due Goal AST (SGOT). Due on due Goal FIT-DNA. Due on due Goal MICRO COMPUTER SPECIALIST Scanned. Due on due Goal PRODUCTION SOUND MIXER Paperwork. Due on due Goal ALT (SGPT). [...] Goal Weight. Due on d ue Goal MICRO COMPUTER SPECIALIST Scanned. Due on due Goal Lipid panel. Due on due Goal HPV. Due on due Goal Unhealthy drug u se screening. Due on due Goal Hepatitis C scre ening. Due on due Goal Zoster vaccine ( ). Due on due Goal PRODUCTION SOUND MIXER Paperwork. Due on due Goal Medication Recon [...] Goal Weight. Due on d ue Goal PRODUCTION SOUND MIXER Paperwork. Due on due Goal MICRO COMPUTER SPECIALIST Scanned. Due on due Goal Hepatitis C [...] Lifestyle education regardin g diet completed Goal Weight. Due on d ue Goal Unhealthy drug u se screening. Due on due Goal UDT. Due on due Goal MICRO COMPUTER SPECIALIST Scanned. Due on due Goal AST (SGOT). Due on due Goal Tobacco Use. Due on due Goal ALT (SGPT). Due on due Goal FIT-DNA. Due on due Goal Review Allergy List. Due on due Goal Hepatitis C scre ening. Due on due Goal Creatinine. Due on due Goal OARS. Due on due Goal PRODUCTION SOUND MIXER Paperwork. Due on due Goal FIT. Due [...] Order Annual PT. Due on due Goal MICRO COMPUTER SPECIALIST Scanned. Due on due Goal OARS. Due on due Goal ALT (SGPT). Due on due Goal PRODUCTION SOUND MIXER Paperwork. Due on due Goal Unhealthy drug [...] Goal AST (SGOT). Due on due Goal PRODUCTION SOUND MIXER Paperwork. Due on due Goal Height. Due on d ue Goal Creatinine. Due on due Goal OARS. Due on due Goal MICRO COMPUTER SPECIALIST Scanned. Due on due Goal Zoster vaccine [...] Goal PHQ-9. Due on du e Goal PRODUCTION SOUND MIXER Paperwork. Due on due Goal HPV. Due on due Goal OARS. Due on due Goal UDT. Due on due Goal FIT. Due on due Goal MICRO COMPUTER SPECIALIST Scanned. Due on due Goal PHQ-9. Due [...] due Goal FIT-DNA. Due on due Goal MICRO COMPUTER SPECIALIST Scanned. Due on due Goal PRODUCTION SOUND MIXER Paperwork. Due on due Goal Medication Recon [...] Goal Lipid panel. Due on due Goal PRODUCTION SOUND MIXER Paperwork. Due on due Goal PHQ-9. Due on du e Goal FIT-DNA. Due on due Goal MICRO COMPUTER SPECIALIST Scanned. Due on due Goal CT-Colonography. Due [...] Order Annual PT. Due on due Goal MICRO COMPUTER SPECIALIST Scanned. Due on due Goal PRODUCTION SOUND MIXER Paperwork. Due on due Goal Lipid panel. [...] AST (SGOT). Due on 24 due Goal Height. Due on d ue Goal PRODUCTION SOUND MIXER Paperwork. Due on due Goal Review Allergy List. Due on due Goal Zoster vaccine ( 1st). Due on due Goal FIT-DNA. Due on due Goal Order Annual PT. Due on due Goal Creatinine. Due on due Goal ALT (SGPT). Due on due Goal UDT. Due on due Goal FIT. Due on due Goal Weight. Due on d ue Goal MICRO COMPUTER SPECIALIST Scanned. Due on due Goal HPV. Due [...] vaccine ( 1st). Due on due Goal MICRO COMPUTER SPECIALIST Scanned. Due on due Goal Tobacco Use. Due on due Goal OARS. Due on due Goal FIT. Due on due Goal PRODUCTION SOUND MIXER Paperwork. Due on due Goal Height. Due on d ue Goal UDT. Due on due Goal Order Annual PT. Due on due Goal FIT-DNA. Due on due Goal Tobacco Use. Due on due Goal Update Social Hi story. Due on due Goal Height. Due on d ue Goal OARS. Due on due Goal MICRO COMPUTER SPECIALIST Scanned. Due on due Goal AST (SGOT). Due on due Goal ALT (SGPT). Due on due Goal Order Annual PT. Due on due Goal PRODUCTION SOUND MIXER Paperwork. Due on due Goal Creatinine. Due [...] Goal ALT (SGPT). Due on due Goal MICRO COMPUTER SPECIALIST Scanned. Due on due Goal Creatinine. Due on due Goal PRODUCTION SOUND MIXER Paperwork. Due on due Goal Medication Recon [...] ue Goal FIT. Due on due Goal Creatinine. Due on due Goal Zoster vaccine ( 1st). Due on due Goal UDT. Due on due Goal Hepatitis C scre ening. Due on due Goal OARS. Due on due Goal PHQ-9. Due on du e Goal ALT (SGPT). Due on 24 due Goal Lipid panel. Due on due Goal Tobacco Use. Due on due Goal PRODUCTION SOUND MIXER Paperwork. Due on due Goal MICRO COMPUTER SPECIALIST Scanned. Due on due Goal Medication Recon [...] Review Allergy List. Due on due Goal MICRO COMPUTER SPECIALIST Scanned. Due on due Goal UDT. Due on due Goal CT-Colonography. Due on due Goal PRODUCTION SOUND MIXER Paperwork. Due on due Goal OARS. Due [...] Goal Lipid panel. Due on due Goal PRODUCTION SOUND MIXER Paperwork. Due on due Goal Order Annual PT. Due on due Goal MICRO COMPUTER SPECIALIST Scanned. Due on due Goal FIT-DNA. Due [...] Goal AST (SGOT). Due on due Goal PRODUCTION SOUND MIXER Paperwork. Due on due Goal Update Social [...] Goal Height. Due on d ue Goal MICRO COMPUTER SPECIALIST Scanned. Due on due Goal UDT. Due on due Goal OARS. Due on due Goal ALT (SGPT). Due on due Goal Weight. Due on d ue Goal PRODUCTION SOUND MIXER Paperwork. Due on due Goal Creatinine. Due [...] due Goal UDT. Due on due Goal MICRO COMPUTER SPECIALIST Scanned. Due on due Goal FIT. Due on due Goal FIT-DNA. Due on due Goal MICRO COMPUTER SPECIALIST Scanned. Due on due Goal PRODUCTION SOUND MIXER Paperwork. Due on due Goal Review Allergy [...] e Goal HPV. Due on due Goal Hepatitis [...] ue Goal UDT. Due on due Goal FIT. Due on due Goal Creatinine. Due on due Goal Weight. Due on d ue Goal PRODUCTION SOUND MIXER Paperwork. Due on due Goal MICRO COMPUTER SPECIALIST Scanned. Due on due Goal ALT (SGPT). Due on due Goal PHQ-9. Due on du e Goal AST (SGOT). Due on due Goal UDT. Due on due Goal OARS. Due on due Goal PHQ-9. Due on du e Goal HPV. Due on due Goal MICRO COMPUTER SPECIALIST Scanned. Due on due Goal FIT-DNA. Due [...] Order Annual PT. Due on due Goal PRODUCTION SOUND MIXER Paperwork. Due on due Goal Zoster vaccine [...] Goal Lipid panel. Due on due Goal PRODUCTION SOUND MIXER Paperwork. Due on due Goal Unhealthy drug u se screening. Due on due Goal Creatinine. Due on due Goal Medication Recon ciliation. Due on due Goal HPV. Due on due Goal Height. Due on d ue Goal MICRO COMPUTER SPECIALIST Scanned. Due on due Goal Review Allergy List. Due on due Goal PHQ-9. Due on du e Goal UDT. Due on due Goal Lipid panel. Due on due Goal ALT (SGPT). Due on due Goal OARS. Due on due Goal Creatinine. Due on due Goal MICRO COMPUTER SPECIALIST Scanned. Due on due Goal Order Annual PT. Due on due Goal PHQ-9. Due on du e Goal PRODUCTION SOUND MIXER Paperwork. Due on due Goal Review Allergy [...] Goal AST (SGOT). Due on due Goal PRODUCTION SOUND MIXER Paperwork. Due on due Goal Order Annual PT. Due on due Goal Creatinine. Due on due Goal UDT. Due on due Goal MICRO COMPUTER SPECIALIST Scanned. Due on due Goal CT-Colonography. Due [...] due Goal OARS. Due on due Goal MICRO COMPUTER SPECIALIST Scanned. Due on due Goal Height. Due on d ue Goal Lipid panel. Due on due Goal FIT. Due on due Goal Order Annual PT. Due on due Goal PRODUCTION SOUND MIXER Paperwork. Due on due Goal Tobacco Use. [...] Goal AST (SGOT). Due on due Goal PRODUCTION SOUND MIXER Paperwork. Due on due Goal MICRO COMPUTER SPECIALIST Scanned. Due on due Goal Tobacco Use. [...] Goal ALT (SGPT). Due on due Goal MICRO COMPUTER SPECIALIST Scanned. Due on due Goal Height. Due on d ue Goal Zoster vaccine ( 1st). Due on due Goal HPV. Due on due Goal AST (SGOT). Due on due Goal PRODUCTION SOUND MIXER Paperwork. Due on due Goal Hepatitis C [...] vaccine ( 1st). Due on due Goal MICRO COMPUTER SPECIALIST Scanned. Due on due Goal Lipid panel. Due on due Goal FIT-DNA. Due on due Goal Medication Recon ciliation. Due on due Goal AST (SGOT). Due on due Goal Order Annual PT. Due on due Goal PRODUCTION SOUND MIXER Paperwork. Due on due Goal Creatinine. Due [...] due Goal FIT. Due on due Goal MICRO COMPUTER SPECIALIST Scanned. Due on due Goal OARS. Due on due Goal PRODUCTION SOUND MIXER Paperwork. Due on due Goal Hepatitis C [...] ue Goal OARS. Due on due Goal MICRO COMPUTER SPECIALIST Scanned. Due on due Goal AST (SGOT). Due on due Goal Zoster vaccine ( 1st). Due on due Goal PRODUCTION SOUND MIXER Paperwork. Due on due Goal Review Allergy [...] Goal Height. Due on d ue Goal PRODUCTION SOUND MIXER Paperwork. Due on due Goal Tobacco Use. Due on due Goal Weight. Due on d ue Goal MICRO COMPUTER SPECIALIST Scanned. Due on due Goal FIT-DNA. Due [...] e Goal FIT-DNA. Due on due Goal MICRO COMPUTER SPECIALIST Scanned. Due on due Goal Zoster vaccine ( ). Due on due Goal Lipid panel. Due on due Goal UDT. Due on due Goal PRODUCTION SOUND MIXER Paperwork. Due on due Goal Height. Due [...] Social Hi story. Due on due Goal PRODUCTION SOUND MIXER Paperwork. Due on due Goal Hepatitis C scre ening. Due on due Goal AST (SGOT). Due on due Goal Medication Recon ciliation. Due on due Goal MICRO COMPUTER SPECIALIST Scanned. Due on due Goal Lipid panel. [...] Order Annual PT. Due on due Goal MICRO COMPUTER SPECIALIST Scanned. Due on due Goal Zoster vaccine ( 1st). Due on due Goal OARS. Due on due Goal PRODUCTION SOUND MIXER Paperwork. Due on due Goal CT-Colonography. Due [...] due Goal UDT. Due on due Goal MICRO COMPUTER SPECIALIST Scanned. Due on due Goal Tobacco Use. Due on due Goal Height. Due on d ue Goal AST (SGOT). Due on due Goal Unhealthy drug u se screening. Due on due Goal PRODUCTION SOUND MIXER Paperwork. Due on due Goal Review Allergy List. Due on due Goal CT-Colonography. Due on due Goal Zoster vaccine ( 1st). Due on due Goal FIT. Due on due Goal Update Social Hi story. Due on due Goal Hepatitis C scre ening. Due on due Goal PHQ-9. Due on du e Goal HPV. Due on due Goal FIT-DNA. Due on due Goal CT-Colonography. Due on due Goal PRODUCTION SOUND MIXER Paperwork. Due on due Goal PHQ-9. Due [...] Social Hi story. Due on due Goal MICRO COMPUTER SPECIALIST Scanned. Due on due Goal Review Allergy [...] Goal Weight. Due on d ue Goal MICRO COMPUTER SPECIALIST Scanned. Due on due Goal ALT (SGPT). Due on due Goal OARS. Due on due Goal UDT. Due on due Goal Unhealthy drug u se screening. Due on due Goal Update Social Hi story. Due on due Goal FIT. Due on due Goal Zoster vaccine ( ). Due on due Goal Lipid panel. Due on 022 due Goal Medication Recon ciliation. Due on due Goal HPV. Due on due Goal Order Annual PT. Due on due Goal Height. Due on d ue Goal FIT-DNA. Due on due Goal Creatinine. Due on due Goal Hepatitis C scre ening. Due on due Goal PRODUCTION SOUND MIXER Paperwork. Due on due Goal PHQ-9. Due [...] due Goal Creatinine. Due on due Goal MICRO COMPUTER SPECIALIST Scanned. Due on due Goal ALT (SGPT). [...] Goal Weight. Due on d ue Goal PRODUCTION SOUND MIXER Paperwork. Due on due Goal Review Allergy List. Due on due Goal Lipid panel. Due on due Goal Order Annual PT. Due on due Goal Hepatitis C scre ening. Due on due Goal Zoster vaccine ( ). Due on due Goal MICRO COMPUTER SPECIALIST Scanned. Due on due Goal AST (SGOT). Due on due Goal HPV. Due on due Goal ALT (SGPT). Due on due Goal Lipid panel. Due on due Goal Creatinine. Due on due Goal OARS. Due on due Goal Update Social Hi story. Due on due Goal PRODUCTION SOUND MIXER Paperwork. Due on due Goal PHQ-9. Due [...] Goal PHQ-9. Due on du e Goal MICRO COMPUTER SPECIALIST Scanned. Due on due Goal Review Allergy [...] due Goal FIT. Due on due Goal PRODUCTION SOUND MIXER Paperwork. Due on due Goal Creatinine. Due [...] Goal Tobacco Use. Due on due Goal PRODUCTION SOUND MIXER Paperwork. Due on due Goal MICRO COMPUTER SPECIALIST Scanned. Due on due Goal Zoster vaccine [...] Goal AST (SGOT). Due on due Goal MICRO COMPUTER SPECIALIST Scanned. Due on due Goal Height. Due on d ue Goal PRODUCTION SOUND MIXER Paperwork. Due on due Goal Unhealthy drug [...] due Goal CT-Colonography. Due on due Goal AST (SGOT). Due on due Goal UDT. Due on due Goal Lipid panel. Due on due Goal ALT (SGPT). Due on due Goal OARS. Due on due Goal Creatinine. Due on due Goal PRODUCTION SOUND MIXER Paperwork. Due on due Goal MICRO COMPUTER SPECIALIST Scanned. Due on due Goal Unhealthy drug [...] e Goal FIT-DNA. Due on due Goal Order Annual PT. Due on due Goal Hepatitis C scre ening. Due on due Goal Zoster vaccine ( ). Due on due Goal Tobacco Use. Due on due Goal Order Annual PT. Due on due Goal Review Allergy List. Due on due Goal Medication Recon ciliation. Due on due Goal AST (SGOT). Due on due Goal ALT (SGPT). Due on due Goal Weight. Due on d ue Goal CT-Colonography. Due on due Goal PRODUCTION SOUND MIXER Paperwork. Due on due Goal Creatinine. Due on due Goal MICRO COMPUTER SPECIALIST Scanned. Due on due Goal OARS. Due [...] due Goal UDT. Due on due Goal PRODUCTION SOUND MIXER Paperwork. Due on due Goal Height. Due on d ue Goal Review Allergy List. Due on due Goal PHQ-9. Due on du e Goal OARS. Due on due Goal MICRO COMPUTER SPECIALIST Scanned. Due on due Goal Weight. Due on d ue Goal AST (SGOT). Due on due Goal Creatinine. Due on due Goal Weight. Due on d ue Goal AST (SGOT). Due on due Goal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
[2024-11-06] VITALS (12 sets, daily range): BP systolic 90–121; BP diastolic 64–76; PULSE 88–107; RESP 16; TEMP 36.6; O2SAT 94–98
--- OUTSIDE RECORDS SUMMARY | 2024-11-06 01:12 | XMS_ITS | Clinical Summary ---
Author Organization [facility] Address [address] , [address] [place] [address] Phone Care Team Providers Care District Or District Office Director Name Role Phone Allegra Wong Conditions or Problems Problem Name Problem Code Onset Date Status Entry Date Provider Comment Standard Description Annotate Loss of consciousness 297105169 (SNOMED CT) 06/19 Active 06/19 Sai Steinberg MD Loss of consciousness Spells 18140942 (SNOMED CT) 06/19 Active 06/19 Sai Steinberg MD Stupor CARPAL TUNNEL SYNDROME 76845949 (SNOMED CT) 09/05 Active 09/05 Randal Figueroa MD Carpal tunnel syndrome LUMBAR RADICULOPATHY 624732658 (SNOMED CT) 08/08 Active 08/08 Randal Figueroa MD Lumbar radiculopathy NUMBNESS/TINGLI NG 782.0 (ICD-9-CM) 08/08 Active 08/08 Randal Figueroa MD Disturbance of skin sensation NUMBNESS/TINGLI NG 782.0 (ICD-9-CM) 03/11 Active 03/11 Makayla Chine DO Disturbance of skin sensation NECK PAIN 11789250 (SNOMED CT) 03/11 Active 03/11 Makayla E Aracely DO Neck pain COMMON MIGRAINE, NOT INTRACTABLE G43.009 (ICD-10-CM ) 03/11 Active 03/11 Makayla E Aracely DO Migraine without aura, not intractable, without status migrainosus Medications Medication Instructions Start Date Stop Date Generic Name [facility] Provider ZOFRAN 4 MG ORAL TABLET 1 every six hours as needed ZOFRAN 4 MG ORAL TABLET Sai Ni VICODIN 5-500 MG TABS 1-2 by mouth every four to six hours as needed VICODIN 5-500 MG TABS Sai Ni NALOXONE HCL 4 MG/0.1ML LIQD naloxone 61489409010 Sai Ni OXYCONTIN 20 MG T12A oxycodone 84756206278 Sai Ni LINZESS 145 MCG CAPS linaclotide 16430057820 Sai Ni ESCITALOPRAM OXALATE 20 MG TABS escitalopram oxalate 46413314940 Sai Ni OXYCODONE HCL 10 MG TABS oxycodone 46887431562 Sai Ni BUPROPION HCL ER (XL) 300 MG [id number] bupropion hcl [id number] Sai Ni SIMVASTATIN 20 MG TABS simvastatin 87885407179 Sai Ni TRAZODONE HCL 100 MG TABS trazodone 72129482724 Sai Ni OXYCODONE HCL 15 MG TABS oxycodone 58299724686 Sai Ni OXYCODONE HCL 5 MG TABS oxycodone 30215855639 Sai Ni PRAZOSIN HCL 1 MG CAPS prazosin 85198056401 Sai Ni TOPIRAMATE 100 MG TABS topiramate 09876002403 Sai Ni LAMOTRIGINE 200 MG TABS lamotrigine 31788616023 Sai Ni OMEPRAZOLE 40 MG CPDR omeprazole 62331331296 Sai Ni PRAMIPEXOLE DIHYDROCHLORIDE 0.5 MG TABS pramipexole 29384279486 Sai Ni ZOFRAN 4 MG ORAL TABLET 1 q 6 hrs prn ONDANSETRON HCL [id number] Makayla Chine DO VICODIN 5-500 MG TABS 1 -2 po q 4-6 hrs prn HYDROCODONE-KEVIN TAMINOPHEN 70406194341 Makayla Chine DO Medications Administered No information [...] COMPAZINE Anaphylaxis Mild Active Phi Carmine hayden [id number] INE Mild Active Phi Reginaldoecki BACLOFEN Mild Active Phi Reginaldoe cki Results Date Name Value Unit Range Flag Description Internal Other: Authorizatio n - OBS PTSTAUTHDT DONE N PT Startin g Authorization Date Office Visit: Office Visit s yncope and collapse scans- no records - Newborn SMOK STATUS current every day smoker Tobacco [...] Date Entry Date [place] [address] [place] [address] EEG (40min) [id number] MRI-Brain W/WO CPT-27781 MRI Brain W/WO CPT-O2960T ProHance Gadolinium- based MR Contrast - 15 ml vial ORDERS Ammonia ORDERS Patient Instructions [facility]-[id number] Documentation of current medicatio ns ORDERS Comp Metabolic Panel (14) 20 03/07/09 ORDERS Magnesium Serum ORDERS Phosphorus CPT-58003 Motor NCS x 3 CPT-54950 Sensory NCS x 4 CPT-98547 Motor NCS x 3 CPT-92308 Sensory NCS x 3 CPT-26072 EMG with NCS (5+ muscles) - 1 limb 08/08 Vital Signs Date Name Value Unit Description Weight Measured 165 [lb_av] weight E& M Weight Measured 165 [lb_av] weight E& M Immunizations No information available. Advance Directives No information available.
--- OUTSIDE RECORDS SUMMARY | 2024-11-06 01:13 | XMS_ITS | Clinical Summary ---
Author Organization [facility] Address [address] [place] [address] Care Team Providers Care Wild Life Manager Name Role Phone Tommy Mcelroy MD Primary Care Provider [phone] Allergies Active Allergy Reactions Criticality Noted Date Comments Baclofen 12/23/2012 Diphenhydramine-Zinc Acetate Other (See Comments) 04/24/2011 Makes restless leg symptoms worse. Compazine Anaphylaxis 10/23/2004 Cyclobenzaprine Other (See Comments) 04/24/2011 Makes restless leg symptoms worse. Cyclobenzaprine Hcl 12/23/2012 Methocarbamol Other (See Comments) 04/24/2011 Makes restless leg symptoms worse. Mirtazapine 12/23/2012 Swyejstukkht-Nydegao-Fcsr ine 12/23/2012 Medications pramipexole (MIRAPEX) 0.125 MG [...] on file Legal Sex Female 3:09 AM [employer] Gender Identity Not on file Sexual Orientation Not on file Last Filed Vital Signs Vital Sign Reading Time Taken Comments Blood Pressure 105/66 01/02/2024 1:30 PM [employer] [employer] [facility] Pulse 87 01/02/2024 11:36 AM [employer] [employer] [facility] [facility] Temperature 36.4 C (97.6 F) 01/02/2024 11:36 AM [employer] [employer] [facility] Respiratory Rate 16 01/02/2024 1:30 PM [employer] [employer] [facility] Oxygen Saturation 98% 01/02/2024 1:30 PM [employer] [employer] [facility] Inhaled Oxygen Concentration - - Weight 67.1 kg (148 lb) 01/02/2024 11:36 AM [employer] [employer] [facility] Height 175.3 cm (5' 9) 01/02/2024 11:36 AM [employer] [employer] [facility] Body Mass Index 21.86 01/02/2024 11:36 AM [employer] [employer] [facility] [facility] Plan of Treatment Health Maintenance Due Date [...] this topic Medical Devices Implanted Type Area Inspector Filters Device Identifier Shelf Expiration Date Model / Serial / Lot Graft Bone Foam Pack Vitoss 10ml Bio Active [id number] Implanted:Qty: 1 on 05/02/2011 at [facility] N/A: Spine Lumbar 10/04/[id number] / / [id number] Iom Supplies Implanted:Qty: 1 on 05/02/2011 at [facility] Cell Saver Standby Implanted:Qty: 1 on 05/02/2011 at [facility] Graft Bone Crush Canc 15ml [id number] Implanted:Qty: 1 on 05/02/2011 at [facility] N/A: Spine Lumbar [id number] / [id number] / 14x12 Align Implanted:Qty: 1 on 05/02/2011 at [facility] N/A: Spine Lumbar [id number] / / [id number] 16x12 Align Implanted:Qty: 1 on 05/02/2011 at [facility] N/A: Spine Lumbar [id number] / / [id number] 25mm Plate Implanted:Qty: 1 on 05/02/2011 at [facility] N/A: Spine Lumbar [id number] / / [id number] 25mm Screw Implanted:Qty: 4 on 05/02/2011 at [facility] N/A: Spine Lumbar [id number] / / [id number] Imp Washer Syn [place] 13.5x5.5mm Implanted:Qty: 2 on 05/02/2011 at [facility] N/A: Spine Lumbar 219.951 / / 0106 [id number] Imp Scr Syn Canc 6.3o615aa Ft Ti Implanted:Qty: 2 on 05/02/2011 at [facility] N/A: Spine Lumbar 418.025 / / 0106 [id number] Spf-Plus 60/M Implantable Spinal Fusion Stimulator Implanted:Qty: 1 on 03/02/2014 by Brock Sawyer MD at [facility] N/A: Back [employer] INC 07/03/2015 10-1398M / [id number] / Graft Bone Foam Pack Vitoss 10ml Bio Active [id number] Implanted:Qty: 1 on 03/02/2014 by Brock Sawyer MD at [facility] N/A: Back ORTHOVITA 09/10/2015 [id number] / / [id number] Imp Scr Medt 5.5/6.0mm Solera 6.5x45mm Ma [id number] Implanted:Qty: 4 on 03/02/2014 by Brock Sawyer MD at [facility] N/A: Back [employer] [id number] / / [id number] 2014 Imp Scr Medt 5.5/6.0mm Solera 8.5x70mm Ma [id number] Implanted:Qty: 2 on 03/02/2014 by Brock Sawyer MD at [facility] N/A: Back [employer] [id number] / / [id number] 01 MAR 2014 Imp Scr Set Medt Solera Break Off 5.5mm Ti [id number] Implanted:Qty: 6 on 03/02/2014 by Brock Sawyer MD at [facility] N/A: Back [employer] [id number] / / [id number] 01 MAR 2014 Imp Beltran Medt Solera Cvd 5.9l204xy Ti [id number] Implanted:Qty: 2 on 03/02/2014 by Brock Sawyer MD at [facility] N/A: Back [employer] [id number] / / [id number] 02 MAR 2014 Imp Scr Syn Can 4.0x20mm Ft Ss 206.020 Implanted:Qty: 2 on 03/02/2014 by Brock Sawyer MD at [facility] N/A: Back SYNTHES-STRATEC 206.020 / / Impulse Implanted:Qty: 1 on 03/02/2014 by Brock Sawyer MD at [facility] Explanted Type Area Inspector Filters Device Identifier Shelf Expiration Date Model / Serial / Lot Imp Scr Danek Sext Can 6.5x40mm Legacy Ti Implanted:Qty: 2 on 05/02/2011 at [facility] Explanted:Qty: 2 on 03/02/2014 at [facility] N/A: Spine Lumbar [id number] / / [id number] 01MAY2011 Imp Scr Danek Set G4 Internal Hex [id number] Implanted:Qty: 4 on 05/02/2011 at [facility] Explanted:Qty: 4 on 03/02/2014 at [facility] N/A: Spine Lumbar [id number] / / [id number] 01MAY2011 Imp Beltran Danek Sext 60mm Ti [id number] Implanted:Qty: 2 on 05/02/2011 at [facility] Explanted:Qty: 2 on 03/02/2014 at [facility] N/A: Spine Lumbar [id number] / / [id number] 01MAY2011 Imp Scr Danek Sext Can 6.5x45mm Legacy Ti Implanted:Qty: 2 on 05/02/2011 at [facility] Explanted:Qty: 2 on 03/02/2014 at [facility] N/A: Spine Lumbar [id number] / / [id number] 01MAY2011 Description:BILATERAL SCREWS FROM S1, SCREW HEAD REMOVED, SCREW SHAFT REMAINS Procedures Procedure Name Priority Date/Time Associated Diagnosis Comments BASIC METABOLIC PANEL STAT 01/02/2024 12:11 PM [employer] [employer] from Last 3 Months or Most Recently Relevant to Health Maintenance Results * (ABNORMAL) Basic metabolic panel (BMP) (01/02/2024 12:11 PM [employer] [employer] [facility] [facility]) Sodium 136 135 - 145 mmol/L 01/02/2024 12:43 PM [facility] Potassium 3.8 3.4 - 5.3 mmol/L 01/02/2024 12:43 PM [facility] [facility] Chloride 102 98 - 107 mmol/L 01/02/2024 12:43 PM [facility] [facility] Carbon Dioxide (CO2) 22 22 - 29 mmol/L 01/02/2024 12:43 PM [facility] [facility] Anion Gap 12 7 - 15 mmol/L 01/02/2024 12:43 PM [facility] [facility] Urea Nitrogen 13.9 8.0 - 23.0 mg/dL 01/02/2024 12:43 PM [facility] Creatinine 0.78 0.51 - 0.95 mg/dL 01/02/2024 12:43 PM [facility] [facility] GFR Estimate 86 >60 mL/min/1.7 3m2 01/02/2024 12:43 PM [employer] [employer] [facility] [facility] Comment:eGFR calculated us2020 CKD-EPI equation. Calcium 8.9 8.8 - 10.4 mg/dL 01/02/2024 12:43 PM [employer] [employer] [facility] Comment:Reference intervals for this test were updated on 08/26/2023 to reflect our healthy population more accurately. There may be differences in the flagging of prior results with similar values performed with this method. Those prior results can be interpreted in the context of the updated reference intervals. Glucose 127(H) 70 - 99 mg/dL 01/02/2024 12:43 PM [employer] [facility] Blood BLOOD SPECIMEN / Unknown Venipuncture / Unknown 01/02/2024 12:11 PM [employer] [facility] 01/02/2024 12:23 PM [employer] us Kimberly Rutherford PA-C LAB - BLOOD ORDERABLES Final Result [facility] [address] [facility] (1st floor, no room number) [place] [address], [facility] from Last 3 Months or Most Recently Relevant to Health Maintenance [facility] [place] [address] MEDICARE MEDICA PRIME SOLUTION MEDICARE OTHER OTHER none (Work) [id number] [place] [id number] [facility] [employer] Advance Directives For more information, please contact: [phone] * Full Code (Latest Code Status on File) Date Activated Date Inactivated Comments 05/02/2011 8:26 PM 05/06/2011 2:41 PM * Full Code Date Activated Date Inactivated Comments 05/02/2011 2:17 PM 05/02/2011 8:26 PM Care Teams Wild Life Manager Relationship Specialty Start Date End Date Tommy Mcelroy MD PCP - General Family Practice 04/16/11
--- OUTSIDE RECORDS SUMMARY | 2024-11-06 01:14 | XMS_ITS | Clinical Summary ---
Author Organization [facility] Address [address] [place] [address] [place] [address] Care Team Providers Care Check Examiner Name Role Phone [facility]- Unava ilable Hayes Mcelroy MD Primary Care Provider [phone] Allergies Active Allergy Reactions Criticality Noted Date Comments Atorvastatin Other 09/30/2019 Skin irritation around eyes Baclofen Nausea Low 12/23/2012 Biwenqwonxub-Fmbedyt-Mskzor e Low 12/23/2012 Cyclobenzaprine Low 04/24/2011 Other [...] 3 Active naloxone (NARCAN) 4 mg/actuation Nasal Cotton Administer one dose (4 mg) into nostril [...] (11/11/2022): Added automatically from request for surgery [id number] Chronic anemia 08/22/2021 Type 2 diabetes mellitus [...] 0.6 oz pur e alcohol) [facility] [employer] Answer Date Recorded In the past 12 months has Orth[employer], gas, oil, or water MEEP threatened to shut off services in your [...] were you homeless or living in a correction (including now)? No 09/23/2023 Comments No Sex [...] this topic Medical Devices Implanted Type Area Billet Header Device Identifier Shelf Expiration Date Model / Serial / Lot Beltran 50mm 5.5mm Ccm Curv - [id number] Implanted:Qty : 1 on 09/23/2023 by Brock Sawyer MD at [facility] Beltran N/A: Spine Lumbar Medtronic Inc [id number] / / Beltran 60mm 5.5mm Ccm Curv - [id number] Implanted:Qty : 1 on 09/23/2023 by Brock Sawyer MD at [facility] Beltran N/A: Spine Lumbar Medtronic Inc [id number] / / Set Screw Solera Brk Off - [id number] Implanted:Qty : 4 on 09/23/2023 by Brock Sawyer MD at [facility] Screw/An chor N/A: Spine Lumbar Medtronic Inc [id number] / / Insurance Absolute [place] [id number] MEDICA PRIME SOLUTION MEDICARE PART A & B Advance Directives For more information, please contact: [phone] * Full Code (Latest Code Status on File) Date Activated Date Inactivated Comments 09/24/2023 3:26 PM 09/25/2023 5:49 PM Question Answer Comments How was code status determined? Patient * Full Code Date Activated Date Inactivated Comments 09/23/2023 5:59 AM 09/23/2023 9:48 AM Question Answer Comments How was code status determined? Previous [facility] Care Teams Check Examiner Relationship Specialty Start Date End Date [facility]- [address] [place] [address] PCP - Primary Care Clinic 09/18/22 [place] [address] [place] [address] PCP - General 05/20/23
--- OUTSIDE RECORDS SUMMARY | 2024-11-06 01:14 | XMS_ITS | Clinical Summary ---
Author Organization [facility] Address [address] [place] [address] Care Team Providers Care Fishing Vessel Mate Name Role Phone Tommy Mcelroy MD Primary Care Provider [phone] Source Comments You are receiving this document as you are listed as the primary care provider,follow-up provider, or the patient has been referred to you for consultation.This is in compliance with the Medicare and[facility] EHR Incentive Program,which states Providers who transition their patient to another setting of careor provider of care or refers their patient to another provider of care shouldprovide summary care record for each transition of care or referral. [facility] Allergies Active Allergy Reactions Criticality Noted Date Comments Antihistamines, Diphenhydramine-Type 06/16/2009 I have restless leg syndrome Phenothiazines Other, see comments 06/16/2009 Medications Pramipexole Dihydrochloride (MIRAPEX OR) None Entered Active LORazepam (ATIVAN OR) Active Active Problems Problem Noted Date Diagnosed Date Right foot pain 05/13/2022 Overview (05/13/2022): Added automatically from request for surgery [id number] Social History Tobacco Use Types Packs/Day Years [...] CARE MEDICA MEDICA PRIME SOLUTION Care Teams Fishing Vessel Mate Relationship Specialty Start Date End Date Tommy Mcelroy MD [facility] [address] [place] [address] PCP - General Family Practice 05/07/22
--- OUTSIDE RECORDS SUMMARY | 2024-11-06 01:14 | XMS_ITS | Clinical Summary ---
Author Organization [employer] [facility] Address [address] [place] [address] Care Team Providers Care Care Clinician Name Role Phone Hayes Mcelroy MD Primary Care Provider [phone] [facility] [place] Unavailable [phone] Allergies Active Allergy Reactions Criticality Noted Date [...] times daily. 100 Tablet 2 2:51 PM BOOM CRANE OPERATOR 01/18/20 Active tiZANidine (ZANAFLEX) 2 mg tabletIndications :Lumbar radiculopathy Take 1-2 Tablets (2-4 mg) by mouth every 6 hours if needed for Muscle Spasm. 60 Tablet 2 2:51 PM BOOM CRANE OPERATOR 01/18/20 Active Accu-Chek Guide test strips strip [...] Encounters Date Type Department Care Team Description 10/26/2024 Lab Requisition [facility] [phone] Pema Dhaliwal MD 10/24/2024 Home Care Visit [facility] [address] [place] [address] Zoë Peter, RN NOT TAKEN UNDER HOME CARE 10/24/2024 Home Care Visit [facility] [address] [place] [address] Zoë Peter, JENNA CARE COORDINATION 10/14/2024 Travel 10/13/2024 2:33 AM CDT - 10/22/2024 3:00 PM CDT Hospital Encounter [facility] [address] [place] [address] [facility], [facility] Hospitalists [facility], MD Leyla Couch, MD Nataliia Quezada, [...] on file Legal Sex Female 6:10 AM BOOM CRANE OPERATOR Gender Identity Not on file Sexual [...] this topic Medical Devices Implanted Type Area Bellhop Captain Device Identifier Shelf Expiration Date Model / Serial / Lot Bone Matrix 10cc Progenix Plusputty Dbm - [id number] Implanted:Qty : 1 on 12/01/2019 by Brock Sawyer MD at [facility] N/A: Lumbar Vertebrae Medtronic Spine/Ortho 06/15/2021 [id number] / / [id number] Spacer Lmbr 9-14h20ez 11deg Elevate Extra-Lordoti c Peek Titn - [id number] Implanted:Qty : 1 on 12/01/2019 by Brock Sawyer MD at [facility] N/A: Lumbar Vertebrae Medtronic Spine/Ortho 09/15/2027 [id number]# / / [id number] Screw Lmbr Post 6.5x50mm Solera 5.5/6 Va Cocr - [id number] Implanted:Qty : 4 on 12/01/2019 by Brock Sawyer MD at [facility] N/A: Lumbar Vertebrae Medtronic Spine/Ortho [id number] / / 5.5 X 500mm Cc Beltran Implanted:Qty : 1 on 12/01/2019 by Brock Sawyer MD at [facility] N/A: Lumbar Vertebrae Medtronic Spine/Ortho [id number] / / Bone 1-4mm 90cc Medtronic Chips Canclls Freeze Dried - [id number] Implanted:Qty : 1 on 12/01/2019 by Brock Sawyer MD at [facility] N/A: Lumbar Vertebrae Medtronic Spine/Ortho 04/24/2024 [id number]# / / ID: [id number] Bone Matrix Md Infuse Bmp - [id number] Implanted:Qty : 1 on 12/01/2019 by Brock Sawyer MD at [facility] N/A: Lumbar Vertebrae Medtronic Spine/Ortho 11/09/2021 [id number]# / / [id number] Bone 1-4mm 30cc Medtronic Chips Canclls Freeze Dried - [id number] Implanted:Qty : 1 on 12/01/2019 by Brock Sawyer MD at [facility] N/A: Lumbar Vertebrae Medtronic Spine/Ortho 05/31/2024 [id number]# / / [id number]: [id number] Spacer Lmbr [id number] 12deg Elevate Extra-Lordoti c Peek Tit - [id number] Implanted:Qty : 1 on 12/01/2019 by Brock Sawyer MD at [facility] N/A: Lumbar Vertebrae Medtronic Spine/Ortho 05/31/2027 [id number]# / / [id number] Bone Matrix 10cc Progenix Putty Dbm - [id number] Implanted:Qty : 1 on 12/01/2019 by Brock Sawyer MD at [facility] N/A: Lumbar Vertebrae Medtronic Spine/Ortho 01/15/2021 [id number]# / / [id number] Set Screw Lmbr Ant 5.5mm Solera Break Off - [id number] Implanted:Qty : 10 on 12/01/2019 by Brock Sawyer MD at [facility] Explanted:Qty : 1 on 06/27/2020 by Brock Sawyer MD at [facility] N/A: Lumbar Vertebrae Medtronic Spine/Ortho [id number]# / / Vitoss 1.2cc [id number] - [id number] Implanted:Qty : 1 on 01/17/2021 by Brock Sawyer MD at [facility] N/A: Cervical Vertebrae Bri Spine 05/07/2021 / / [id number] Anterior Cervical Cage 7mm X 12mm X 14mm [id number] - [id number] Implanted:Qty : 1 on 01/17/2021 by Brock Sawyer MD at [facility] N/A: Cervical Vertebrae Madison Spine 01/25/2023 [id number] / / [id number] [place] Plates 22mm [id number] - [id number] Implanted:Qty : 1 on 01/17/2021 by Brock Sawyer MD at [facility] N/A: Cervical Vertebrae Madison Spine [id number] / / [place] Self-Starting Variable Screw 4.0x14mm [id number] - [id number] Implanted:Qty : 3 on 01/17/2021 by Brock Sawyer MD at [facility] N/A: Cervical Vertebrae Bri Spine [id number] / / [place] Self-Starting Variable Screw 4.5x14mm [id number] - [id number] Implanted:Qty : 1 on 01/17/2021 by Brock Sawyer MD at [facility] N/A: Cervical Vertebrae [id number] / / Vitoss Bimodal Implanted:Qty : 1 on 08/21/2021 by Brock Sawyer MD at [facility] N/A: Cervical Vertebrae Bri Spine 05/07/2022 / / [id number] Bone Matrix 5cc Stimulan Kit Rapid Cure - [id number] Implanted:Qty : 1 on 08/21/2021 by Brock Sawyer MD at [facility] N/A: Cervical Vertebrae [employer] 09/10/2023 [id number] / / [id number] 3.5 X 12mm New [place] Oct Polyaxial Screw Implanted:Qty : 3 on 08/21/2021 by Brock Sawyer MD at [facility] N/A: Cervical Vertebrae [employer] [id number] / / 34.0 X 12mm New [place] Oct Polyaxial Screw Implanted:Qty : 1 on 08/21/2021 by Brock Sawyer MD at [facility] N/A: Cervical Vertebrae [employer] [id number] / / Set Screw Implanted:Qty : 4 on 08/21/2021 by Brock Sawyer MD at [facility] N/A: Cervical Vertebrae [employer] [id number] / / Contoured Rods4.0 X 25mm Implanted:Qty : 2 on 08/21/2021 by Brock Sawyer MD at [facility] N/A: Cervical Vertebrae [employer] Inc [id number] / / Bone Matrix Sm Infuse Bmp - [id number] Implanted:Qty : 1 on 01/16/2022 by Brock Sawyer MD at [facility] Lumbar Vertebrae Medtronic Spine/Ortho 02/10/2024 [id number] / / [id number] Bone Matrix 5cc Progenix Plus Putty Dbm - [id number] Implanted:Qty : 1 on 01/16/2022 by Brock Sawyer MD at [facility] Spine Medtronic Spine/Ortho 05/02/2023 [id number] / [id number] / Bone 1-4mm 15cc Medtronic Chips Canclls Freeze Dried - [id number] Implanted:Qty : 1 on 01/16/2022 by Brock Sawyer MD at [facility] Spine Medtronic Spine/Ortho 12/04/2025 [id number] / [id number] / [id number] Implant 16mm Implanted:Qty : 1 on 01/16/2022 by Brock Sawyer MD at [facility] Spine Medtronic Spine/Ortho 07/05/2025 [id number] / / [id number] Titan Tas Bone Screw Implanted:Qty : 1 on 01/16/2022 by Brock Sawyer MD at [facility] Spine Medtronic Spine/Ortho [id number] / / Divergence Screws Implanted:Qty : 4 on 01/16/2022 by Brock Sawyer MD at [facility] Spine Medtronic Spine/Ortho [id number] / / Divergence 18mm Plate Implanted:Qty : 1 on 01/16/2022 by Brock Sawyer MD at [facility] Spine Medtronic Spine/Ortho [id number] / / Explanted Type Area Bellhop Captain Device Identifier Shelf Expiration Date Model / Serial / Lot [employer] Precision Spinal Cord Stimulator Explanted:Qty: 1 on 12/01/2019 by Brock Sawyer MD at [facility] N/A: Lumbar Vertebrae [employer] / [id number] / Description:Battery and lead s explanted IPG model SC-1110 Bone Growth Stimulator Explanted:Qty: 1 on 12/01/2019 by Brock Sawyer MD at [facility] N/A: Lumbar Vertebrae Description:SpF-PLUS CLAUDIA [id number] Battery and leads explanted 100mm 5.5 Ti Beltran Explanted:Qty: 2 on 12/01/2019 by rBock Sawyer MD at [facility] N/A: Lumbar Vertebrae Set Screws Solera Explanted:Qty: 6 on 12/01/2019 by Brock Sawyer MD at [facility] N/A: Lumbar Vertebrae Medtronic Spine/Ortho Screw Sm Joint 4.5x20mm Axsos Raymundo [facility] - [id number] Explanted:Qty: 4 on 12/01/2019 by Brock Sawyer MD at [facility] N/A: Lumbar Vertebrae Bri Orthopaedics [id number]# / / 8.5 X 70 Mm Ballast Screw Explanted:Qty: 1 on 06/27/2020 by Brock Sawyer MD at [facility] Right: Lumbar Vertebrae Medtronic Procedures Procedure Name Priority Date/Time Associated Diagnosis Comments LAB TRACKING EVENT Routine 10/25/2024 2: 59 PM CDT PATH TISSUE EXAM Routine 10/25/2024 2:59 PM CDT HEMOGLOBIN A1C Today 10/22/2024 2:06 PM CDT [...] Recently Relevant to Health Maintenance Results * LAB TRACKING EVENT (10/25/2024 2:59 PM CDT) Other (Other) Client Collect / Unknown 10/25/2024 2:59 PM CDT 10/26/2024 12:05 PM CDT us Pema Dhaliwal MD LAB BILL ONLY Final Re sult [facility] [address] [place] [address], * PATH TISSUE EXAM (10/25/2024 2:59 PM CDT) Case Report Pathology Report Case: [id number] Authorizing Provider: Pema Dhaliwal MD Collected: 10/25/2024 1459 Ordering Location: [facility] Received: 10/26/2024 1326 Pathologist: Sanket Rubio MD Specimen: Small Bowel, stitch is proximal 10/27/2024 2:26 PM CDT [facility] Final Diagnosis A) SMALL BOWEL, SEGMENTAL RESECTION: 1. Acute and chronic ischemic enteritis with perforation 2. Dense serosal adhesions 3. Negative for evidence of Crohn's disease 4. Negative for dysplasia and malignancy 10/27/2024 2:26 PM CDT [facility] at 1426 CDT Comment Reviewed with Dr. Tony. 10/27/2024 2:26 PM CDT [facility] Clinical Information Ms. Sanders is a 63 y.o. with small bowel obstruction. 10/27/2024 2:26 PM CDT [facility] Gross Description A) Received in formalin, labeled with the patient's name and small bowel, stitch is proximal, is a 25 cm long, 3 cm diameter segment of small bowel with a suture marking the proximal margin. Towards the distal end, there is an oversewn transmural defect measuring 3 cm in length. The remainder of the serosa is with slightly more dusky appearing serosa and the oversewn area. The segment is opened lengthwise revealing granular james- fibrinous mucosa throughout the oversewn area, encompassing an area measuring up to 3 cm in length. There are no polyps or masses. The remainder of the mucosa is with a normal folding pattern. Prosthetics Assistant sections are submitted as follows: 1. Proximal margin, en face 2. Distal margin, en face 3, 4. Sections through oversewn area with fibrinous mucosa TRB 10/26/2024 10/27/2024 2:26 PM CDT [facility] Microscopic Description The final diagnosis is based on microscopic examination of appropriate sections of all specimens. 10/27/2024 2:26 PM CDT [facility] Additional Information Interpreted at [facility] - [address], [place] [address] 10/27/2024 2:26 PM CDT [facility] Other (Small Bowel) 10/25/2024 2:59 PM CDT 10/26/2024 1:26 PM CDT Pema Dhaliwal MD PATHOLOGY/CYTOLOGY Final Result Performing Organization Address [facility] Co de Phone Number [facility] [address] [place] [address], * Screening hemoglobin A1c FOR ADD ON (10/22/2024 2:06 PM CDT) HEMOGLOBIN A1C SCREENING 6.2 <=6.4 % 10/22/2024 3:32 PM CDT [facility] Blood BLOOD SPECIMEN / Unknown Butterfly / Unknown 10/22/2024 2:06 PM CDT 10/22/2024 2:12 PM CDT Narrative [facility] - 10/22/2024 3:32 PM CDT (<5.7%) Normal (5.7% to 6.4%) Indicates prediabetes (>=6.5%) Confirms diabetes Falsely low levels may be seen with: Recent Transfusion, Recent Significant Blood Loss, Hemolytic Diseases, or Falsely elevated levels may be seen with: Untreated Anemias, Splenectomy Sindy William MD CHEMISTRY Final Resul t Performing Organization Address [facility] Co de Phone Number [facility] [address] [place] [address], * SCAN-CARDIAC STRIP (10/22/2024 7:08 AM CDT) Scanner OTHER Final Result * (ABNORMAL) Sodium AM (10/22/2024 5:16 AM CDT) Only the most recent of3 resultswithin the time period is included. SODIUM 135(L) 136 - 145 mmol/L 10/22/2024 5:50 AM CDT [facility] Blood BLOOD SPECIMEN / Unknown Butterfly / Unknown 10/22/2024 5:16 AM CDT 10/22/2024 5:24 AM CDT Sindy William MD CHEMISTRY Final Resul t Performing Organization Address City/[facility]/ZIP Co de Phone Number [facility] [address] [address], [place] * POTASSIUM (10/22/2024 5:16 AM CDT) Only the most recent of6 resultswithin the time period is included. POTASSIUM 4.3 3.5 - 5.1 mmol/L 10/22/2024 5:50 AM CDT [facility] Blood BLOOD SPECIMEN / Unknown Butterfly / Unknown 10/22/2024 5:16 AM CDT 10/22/2024 5:24 AM CDT Sindy William MD CHEMISTRY Final Resul t Performing Organization Address [facility] Co de Phone Number [facility] [address] [phone], [place] * PHOSPHORUS (10/22/2024 5:16 AM CDT) Only the most recent of8 resultswithin the time period is included. PHOSPHORUS 3.1 2.5 - 4.5 mg/dL 10/22/2024 5:50 AM CDT [facility] Blood BLOOD SPECIMEN / Unknown Butterfly / Unknown 10/22/2024 5:16 AM CDT 10/22/2024 5:24 AM CDT Sindy William MD CHEMISTRY Final Resul t Performing Organization Address City/[facility]/ZIP Co de Phone Number [facility] [address] [place] [address], [place] * MAGNESIUM (10/22/2024 5:16 AM CDT) Only the most recent of11 resultswithin the time period is included. MAGNESIUM 1.8 1.6 - 2.4 mg/dL 10/22/2024 5:50 AM CDT [facility] Blood BLOOD SPECIMEN / Unknown Butterfly / Unknown 10/22/2024 5:16 AM CDT 10/22/2024 5:24 AM CDT us Sindy William MD CHEMISTRY Final Resul t Performing Organization Address City/[facility]/ZIP Co de Phone Number [facility] [address] [place] [address], [place] * SCAN-CARDIAC STRIP (10/22/2024 1:55 AM CDT) [...] - 100 mg/dL 10/21/2024 8:28 AM CDT [facility] Blood BLOOD SPECIMEN / Unknown 10/21/2024 8:25 AM CDT 10/21/2024 8:28 AM CDT us Sindy William MD CHEMISTRY Final Resul t Performing Organization Address City/[facility] Co de Phone Number [facility] [address] [place] [address], [place] * (ABNORMAL) Basic metabolic panel AM (10/21/2024 6:33 AM CDT) SODIUM 137 136 - 145 mmol/L 10/21/2024 7:45 AM [facility] POTASSIUM 3.6 3.5 - 5.1 mmol/L 10/21/2024 7:45 AM [facility] CHLORIDE 98 98 - 107 mmol/L 10/21/2024 7:45 AM [facility] CO2,TOTAL 27 22 - 29 mmol/L 10/21/2024 7:45 AM [facility] ANION GAP 12 5 - 18 10/21/2024 7:45 AM [facility] GLUCOSE 120(H) 70 - 99 mg/dL 10/21/2024 7:45 AM [facility] CALCIUM 8.6(L) 8.8 - 10.4 mg/dL 10/21/2024 7:45 AM [facility] Comment: Reference ranges for this test were updated on 12/16/2023 to reflect our healthy population more accurately. Reference range changes are not retroactively applied to results, but previous results using the same methodology can be interpreted in the context of the new reference range. BUN 26(H) 8 - 23 mg/dL 10/21/2024 7:45 AM [facility] CREATININE 0.67 0.50 - 0.90 mg/dL 10/21/2024 7:45 AM [facility] BUN/CREAT RATIO 39(H) 10 - 20 7:45 AM [facility] eGFR >90 >90 mL/min/1. 73m2 10/21/2024 7:45 AM [facility] Comment:As of 2021, eG FR [...] Sindy William MD CHEMISTRY Final Resul t [facility] [address] [place] [address], [place] * SCAN-CARDIAC STRIP (10/21/2024 2:34 AM [...] @ Oct 20 2024 9:42AM (Electronically Signed) [email or web address] Narrative 10/20/2024 9:42 AM CDT For Patients: [...] @ Oct 20 2024 9:42AM (Electronically Signed) [email or web address] us Evelyn Weinstein MD GENERAL IMAGING Final Result * (ABNORMAL) Creatinine FOR ADD ON (10/20/2024 6:54 AM CDT) Only the most recent of7 resultswithin the time period is included. eGFR >90 >90 mL/min/1.7 3m2 10/20/2024 8:30 AM CDT [facility] Comment:As of 2021, eG FR is calculated by the CKD-EPI creatinine equation without race adjustment. eGFR can be influenced by muscle mass, exercise, and diet. The reported eGFR is an estimation only and is only applicable if the renal function is stable. CREATININE 0.45(L) 0.50 - 0.90 mg/dL 10/20/2024 8:30 AM CDT [facility] Blood BLOOD SPECIMEN / Unknown Venipuncture / Unknown 10/20/2024 6:54 AM CDT 10/20/2024 7:13 AM CDT us Sindy William MD CHEMISTRY Final Resul t [facility] [address] [place] [address], * (ABNORMAL) Calcium FOR ADD ON (10/20/2024 6:54 AM CDT) CALCIUM 6.2(L) 8.8 - 10.4 mg/dL 10/20/2024 8:34 AM CDT [facility] Comment: Reference ranges [...] Sindy William MD CHEMISTRY Final Resul t [facility] [address] [place] [address], [place] * XR COLON WATER SOLUBLE (10/18/2024 [...] - 145 mmol/L 10/18/2024 5:41 AM CDT [facility] LABORATORY POTASSIUM 3.5 3.5 - 5.1 mmol/L 10/18/2024 5:41 AM CDT [facility] LABORATORY CHLORIDE 97(L) 98 - 107 mmol/L 10/18/2024 5:41 AM CDT [facility] CO2,TOTAL 30(H) 22 - 29 mmol/L 10/18/2024 5:41 AM CDT [facility] ANION GAP 15 5 - 18 10/18/2024 5:41 AM CDT [facility] Blood BLOOD SPECIMEN / Unknown Venipuncture / Unknown 10/18/2024 4:58 AM CDT 10/18/2024 5:14 AM CDT us Nazario Mayer MD CHEMISTRY Fi nal Result [facility] [address] [place] [address], [place] * XR ABDOMEN 1 VIEW PORTABLE [...] @ Oct 17 2024 9:53PM (Electronically Signed) [email or web address] Procedure Note Pauly Paredes MD - 10/17/2024 [...] @ Oct 17 2024 9:53PM (Electronically Signed) [email or web address] Danie MONZON [facility] Mary l Result * (ABNORMAL) Hemoglobin AM (10/15/2024 4:54 AM CDT) Only the most recent of2 resultswithin the time period is included. Pathologist [facility] HEMOGLOBIN 10.1(L) 12.0 - 16.0 g/dL 10/15/2024 5:47 AM CDT [facility] MCV 84 80 - 100 fL 10/15/2024 5:47 AM CDT [facility] Blood BLOOD SPECIMEN / Unknown Butterfly / Unknown 10/15/2024 4:54 AM CDT 10/15/2024 5:41 AM CDT Nazario Mayer MD HEMATOLOGY Fi nal Result [facility] [address] [place] [address], * SCAN CORRESP-EKG RESULTS (10/13/2024 12:46 PM CDT) Narrative 10/13/2024 12:46 PM CDT Ordered by an unspecified provider. Other Clinical Staff OTHER Final Resul t * (ABNORMAL) CBC W PLT NO DIFF (10/13/2024 5:01 AM CDT) Pathologist [facility] WHITE BLOOD COUNT 3.7(L) 4.5 - 11.0 thou/cu mm 10/13/2024 5:32 AM CDT [facility] RED BLOOD COUNT 4.35 4.00 - 5.20 mil/cu mm 10/13/2024 5:32 AM CDT [facility] HEMOGLOBIN 11.8(L) 12.0 - 16.0 g/dL 10/13/2024 5:32 AM CDT [facility] HEMATOCRIT 36.3 33.0 - 51.0 % 10/13/2024 5:32 AM CDT [facility] MCV 83 80 - 100 fL 10/13/2024 5:32 AM CDT [facility] MCH 27.1 26.0 - 34.0 pg 10/13/2024 5:32 AM CDT [facility] MCHC 32.5 32.0 - 36.0 g/dL 10/13/2024 5:32 AM CDT [facility] RDW 14.6 11.5 - 15.5 % 10/13/2024 5:32 AM CDT [facility] PLATELET COUNT 184 140 - 440 thou/cu mm 10/13/2024 5:32 AM CDT [facility] MPV 8.9 6.5 - 11.0 fL 10/13/2024 5:32 AM CDT [facility] NRBC 0.0 % 10/13/2024 5:32 AM CDT [facility] ABS NRBC 0.0 thou /cu mm 10/13/2024 5:32 AM T [facility] Blood BLOOD SPECIMEN / Unknown Venipuncture / Unknown 10/13/2024 5:01 AM CDT 10/13/2024 5:26 AM CDT us Joaquin Mcgowan MD HEMATOLOGY Final Res ult [facility] [address] [place] [address], * (ABNORMAL) HPV HIGH RISK (11/21/2022 9:04 AM CDT) TYPE 16 Negative Negative 11/27/2022 11:43 AM CDT [facility] TYPE 18 Negative Negative 11/27/2022 11:43 AM CDT [facility] OTHER HIGH RISK TYPES Positive(A) Negative 11/27/2022 11:43 AM CDT [facility] Other (Cervical) 11/21/2022 9:04 AM CDT 11/25/2022 11:50 AM CDT Narrative [facility] - 11/27/2022 11:43 AM CDT Specimen is positive for the DNA of any one of, or combination of, the following high risk HPV types: 31, 33, 35, 39, 45, 51, 52, 56, 58, 59, 66, 68. HPV types 16 and 18 DNA were undetectable or below the pre-set threshold. Methodology: Proxlyas 4800 HPV Test may [facility] MICROBIOLOG[facility] Final Resu lt [facility] [address] [place] [address], [place] * XR FFDM MAMMO SCREENING BILATERAL [...] of Computer-Aided Detection. COMPARISON FILMS: Yes 10/07/08 [facility] FINDINGS: Mammographically, the breast tissue is heterogeneously dense, which could obscure detection of small masses (approximately 51% - 75% glandular). No suspicious masses or microcalcifications. Benign appearing calcifications within both breasts. Procedure Note Hayes Anne DO - 11/06/2009 XR FFDM MAMMO SCREENING BILATERAL SSP [G0202.6] CLINICAL HISTORY: This is an asymptomatic 48 y.o. patient. INDICATION FOR EXAM: Mammogram Screening. TECHNIQUE: CC & MLO views were obtained. This digital study was evaluatedwith the assistance of Computer-Aided Detection. COMPARISON FILMS: Yes 10/07/08 [facility] FINDINGS: Mammographically, the breast tissue is heterogeneously [...] Most Recently Relevant to Health Maintenance Insurance Property Partner PB ONLY MEDICARE PART B HB ONLY MEDICARE PART A HB ONLY MEDICA [employer] Local Plant Source MEDICA [place] [facility] MEDICARE PPS Advance Directives * Full Code [...] Preferences, Provider to review later Care Teams Care Clinician Relationship Specialty Start Date End Date Hayes Mcelroy MD [address] [place] [address] PCP - General Family Practice 10/20/24 [facility] [address], [place] [address] 10/22/24
--- NOTE | 2024-11-06 01:26 | CRLHL7_ITS ---
For Patients: As a result of the Century Cures Act, medical imaging exams and procedure reports are released immediately into your electronic medical record. You may view this report before your referring provider. If you have questions, please contact your health care provider. INDICATION: Trauma. TECHNIQUE: CT cervical spine without contrast. COMPARISON: None. FINDINGS: No acute fracture or suspicious osseous lesion. Atlantoaxial and atlantooccipital alignment are preserved with atlantoaxial degenerative changes. There are postoperative changes of C3-C7 ACDF with intact surgical hardware and no evidence of acute hardware complication. Cervical vertebral bodies maintain their normal heights with straightened lordosis. There is multilevel spondylosis with disc space height loss at C7-T1. Paraspinous soft tissues are grossly within normal limits. Visualized portions of the lungs are clear. IMPRESSION: No acute abnormality of the cervical spine. Please note that all CT scans at this facility use dose modulation, iterative reconstruction, and/or weight-based dosing when appropriate to reduce radiation dose to as low as reasonably achievable. Dictated by Emir Vincent MD @ 11/06/2024 1:59:59 AM (Electronically Signed)
--- NOTE | 2024-11-06 01:26 | CRLHL7_ITS ---
For Patients: As a result of the Century Cures Act, medical imaging exams and procedure reports are released immediately into your electronic medical record. You may view this report before your referring provider. If you have questions, please contact your health care provider. INDICATION: Trauma. TECHNIQUE: CT head without contrast. COMPARISON: CT head 04/16/2018. FINDINGS: No acute intracranial hemorrhage. No CT evidence of acute territorial infarct. No hydrocephalus or midline shift. Normal cerebral parenchymal volume. Mild chronic microvascular ischemic changes. Paranasal sinuses and mastoid air cells are well ventilated. No acute calvarial fracture. IMPRESSION: No acute intracranial abnormality. Please note that all CT scans at this facility use dose modulation, iterative reconstruction, and/or weight-based dosing when appropriate to reduce radiation dose to as low as reasonably achievable. Dictated by Emir Vincent MD @ 11/06/2024 1:53:58 AM (Electronically Signed)
--- NOTE | 2024-11-06 01:42 | ED.FALL ---
HPI - Fall General Time Seen by Provider: 01:42 Date Seen: 11/06/24 Chief Complaint: Fall/Minor Trauma Stated Complaint: fell down the stairs, face lac Time Seen by Provider: 11/06/24 01:42 Source: patient and family Mode of arrival: ambulatory History of Present Illness HPI Narrative: Ramona is a 63-year-old female with a past medical history of small-bowel obstruction, chronic pain disorder who presents the emergency department for evaluation of a fall. Patient presents tonight with her fiance who reports patient fell down the stairs. Patient does not remember and does not know what happened. Significant other thinks that patient was going down the stairs holding a glass of tea when she fell. He heard her and found her. Does not believe she lost consciousness. Patient is not on chronic anticoagulation. Patient hit her head, left side of her face, and complains of left-sided pain to her shoulder, ribs, and upper abdomen. Patient does not know what happens. Currently denies any fever, chills, chest pain, shortness of breath. Patient complains of left shoulder pain, rib pain, and headache. Patient with small laceration to left eyebrow. Related Data Home Medications ?Medication ?Instructions ?Recorded ?Confirmed lamotrigine 200 mg tablet 200 mg PO BID 08/17/21 10/25/24 tizanidine 4 mg tablet 2 - 4 mg PO Q6H PRN 03/13/23 10/25/24 bupropion HCl 300 mg 24 hr tablet, 300 mg PO DAILY 09/16/23 10/25/24 extended release duloxetine 60 mg capsule,delayed 120 mg PO DAILY 09/16/23 10/25/24 release (Cymbalta) buprenorphine 8 mg-naloxone 2 mg 0.5 film sublingual QID chronic 05/18/24 10/25/24 sublingual film pain trazodone 100 mg tablet 100 mg PO HS 06/02/24 10/25/24 metformin 1,000 mg tablet 1,000 mg PO BIDWM 10/25/24 10/25/24 prazosin 1 mg capsule 1 mg PO HS 10/25/24 10/25/24 sennosides 8.6 mg-docusate sodium 1 - 4 tab-cap PO BID 10/25/24 10/25/24 50 mg tablet (Senna with Docusate Sodium) simvastatin 20 mg tablet 20 mg PO HS 10/25/24 10/25/24 Previous Rx's ?Medication ?Instructions ?Recorded blood-glucose meter #1 ea 05/19/23 blood sugar diagnostic (Accu-Chek #100 ea 05/21/23 Kaylee Plus test strips) omeprazole 40 mg capsule,delayed 40 mg PO DAILY #90 caps 12/30/23 release lancets (Accu-Chek Softclix #300 ea 04/12/24 Lancets) pramipexole 0.5 mg tablet 0.5 mg PO DAILY #90 tabs 10/07/24 oxycodone 5 mg tablet 5 - 10 mg (1 - 2 x 5 mg) PO Q6H 10/28/24 PRN #25 tabs Allergies Allergy/AdvReac Type Severity Reaction Status Date / Time hydroxyzine Allergy Severe involuntary Verified 10/25/24 07:36 muscle movement venlafaxine Allergy Mild Rash, Verified 10/25/24 07:36 restless legs prochlorperazine (From Allergy Verified 10/25/24 07:36 Compazine) diphenhydramine AdvReac Mild Effects RLS Verified 10/25/24 07:36 Review of Systems Narrative: Past medical history, past surgical history, medications, allergies, family history, and social history were reviewed with the patient. No additional pertinent items. A medically appropriate review of systems was performed with pertinent positives and negatives noted in HPI, all other systems negative. [facility] Medical History (Updated 11/06/24 @ 06:21 by Geri Rudd MD) Anemia ?D64.9 - Anemia, unspecified (ICD-10) Buprenorphine dependence ?F11.20 - Opioid dependence, uncomplicated (ICD-10) Chronic back pain ?M54.9 - Dorsalgia, unspecified (ICD-10) ?G89.29 - Other chronic pain (ICD-10) Chronic neck pain ?M54.2 - Cervicalgia (ICD-10) ?G89.29 - Other chronic pain (ICD-10) Anxiety (01/17/10) ?F41.9 - Anxiety disorder, unspecified (ICD-10) Depression (08/20/11) ?F32.A - Depression, unspecified (ICD-10) Hyperlipidemia ?E78.5 - Hyperlipidemia, unspecified (ICD-10) Latent autoimmune diabetes in adults, managed as type 2 ?E13.9 - Other specified diabetes mellitus without complications (ICD-10) Obstipation ?K59.00 - Constipation, unspecified (ICD-10) Pre-op examination ?Z01.818 - Encounter for other preprocedural examination (ICD-10) Constipation ?K59.00 - Constipation, unspecified (ICD-10) Seasonal allergies ?J30.2 - Other seasonal allergic rhinitis (ICD-10) Abnormal Pap smear of cervix ?R87.619 - Unspecified abnormal cytological findings in specimens from cervix uteri (ICD-10) Right knee pain ?M25.561 - Pain in right knee (ICD-10) Compartment syndrome of left lower extremity ?T79.A22A - Traumatic compartment syndrome of left lower extremity, initial encounter (ICD-10) Palpitations ?R00.2 - Palpitations (ICD-10) Syncope ?R55 - Syncope and collapse (ICD-10) 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) ?M50.20 - Other cervical disc displacement, unspecified cervical region (ICD-10) Surgical History (Updated 11/05/24 @ 00:00 by Background Daemon) Status post open reduction and internal fixation (ORIF) of fracture ?Z98.890 - Other specified postprocedural states (ICD-10) ?Z87.81 - Personal history of (healed) traumatic fracture (ICD-10) S/P laparoscopic procedure ?Z98.890 - Other specified postprocedural states (ICD-10) S/P insertion of spinal cord stimulator ?Z96.89 - Presence of other specified functional implants (ICD-10) S/P lumbar fusion ?Z98.1 - Arthrodesis status (ICD-10) S/P cervical spinal fusion ?Z98.1 - Arthrodesis status (ICD-10) S/P bunionectomy ?Z98.890 - Other specified postprocedural states (ICD-10) History of tonsillectomy and adenoidectomy (01/17/10) ?Z90.89 - Acquired absence of other organs (ICD-10) History of laparoscopic appendectomy (05/14/12) ?Z90.49 - Acquired absence of other specified parts of digestive tract (ICD-10) History of cholecystectomy (01/17/10) ?Z90.49 - Acquired absence of other specified parts of digestive tract (ICD-10) History of appendectomy (06/30/12) ?Z90.49 - Acquired absence of other specified parts of digestive tract (ICD-10) Family History Mother Osteoporosis Social History Narrative: , currently engaged to be . On disability. 3 children. No alcohol. Non-smoker. No illicit drug use. What is your current living situation?: I presently have a place to live Problems where you live: no known problems Problems where you live details: na In the past 12 months, utilities in danger of being shut off: no In past 12 months, lack of transportation kept you from medical appts, meetings, work, or getting things needed for daily living: no In the past 12 mos, have been you worried that your food would run out before you had money to buy more?: never true In the past 12 mos, the food you bought just didn't last and you didn't have money to buy more?: never true Highest level of school completed/degree received: some college, no degree Smoking Status: Former smoker How often do you have a drink containing alcohol: never AUDIT-C Alcohol total score: 0 Non-prescribed substance use: denies use Caffeine: Yes (1 cup in am, 1 pop day) How often does anyone, including family, friends and others, physically hurt you: decline to answer How often does anyone, including family, friends and others, insult or talk down to you: decline to answer How often does anyone, including family, friends and others, threaten you with harm: decline to answer How often does anyone, including family, friends and others, scream or curse at you: decline to answer service: No Exam Narrative: Exam Narrative: General: Afebrile, no acute distress HEENT: Normocephalic, +left forehead/lateral facial/eyebrow contusion/ecchymosis, dried blood along left side of face and neck, small superficial laceration 1-2 mm to left cheek with no active bleeding, dry mucous membranes Neck: supple, c-collar placed upon arrival, no midline TTP Cardio: regular rate. regular rhythm Resp: Normal work of breathing, no respiratory distress, lungs clear bilaterally, no wheezing, rhonchi, rales Chest/Back: +TTP left lateral lower ribs, no visual signs of trauma, no midline tenderness, no CVA tenderness Abdomen: soft, non distension, +TTP left upper lateral abdomen with no peritoneal signs Neuro: alert and fully oriented. CN II-XII grossly intact. Grossly normal strength and sensation in all extremities. MSK: no deformities. Normal range of motion, +~3cm lacration to left 2nd (index) on lateral aspect between MCP and PIP Integumentary/Skin: no rash visualized, normal color Psych: normal affect, normal behavior Const: Vital Signs, click to edit/add: Vital Signs - 24 hr 11/06/24 01:15 11/06/24 04:08 11/06/24 04:09 Temperature 98 F Pulse Rate 91 94 Pulse Rate [Pulse Oximeter] 107 H Respiratory Rate 16 Blood Pressure 115/76 Blood Pressure [Ri ght Upper Arm] 90/64 Pulse Oximetry 95 97 96 Oxygen Delivery Me thod Room Air 11/06/24 04:15 11/06/24 04:51 11/06/24 04:52 Temperature Pulse Rate 89 88 88 Pulse Rate [Pulse Oximeter] Respiratory Rate 16 Blood Pressure 112/65 Blood Pressure [Ri ght Upper Arm] Pulse Oximetry 94 96 97 Oxygen Delivery Me thod 11/06/24 05:00 11/06/24 05:01 11/06/24 05:11 Temperature Pulse Rate 89 88 88 Pulse Rate [Pulse Oximeter] Respiratory Rate 16 Blood Pressure 111/70 117/73 Blood Pressure [Ri ght Upper Arm] Pulse Oximetry 94 95 95 Oxygen Delivery Me thod 11/06/24 05:15 11/06/24 05:21 11/06/24 05:31 Temperature Pulse Rate 91 91 Pulse Rate [Pulse Oximeter] Respiratory Rate Blood Pressure 105/69 121/75 Blood Pressure [Ri ght Upper Arm] Pulse Oximetry 98 97 Oxygen Delivery Me thod Course Vital Signs Vital signs: Initial Vital Signs Temperature 98 F 11/06/24 01:15 Temperature Source Temporal Artery Scan 11/06/24 01:15 Pulse Rate 107 H 11/06/24 01:15 Respiratory Rate 16 11/06/24 01:15 Blood Pressure 90/64 11/06/24 01:15 Blood Pressure Mean 72 11/06/24 01:15 Blood Pressure Position Sitting 11/06/24 01:15 Pulse Oximetry 95 11/06/24 01:15 Oxygen Delivery Method Room Air 11/06/24 01:15 Vital Signs Temperature 98 F 11/06/24 01:15 Pulse Rate 107 H 11/06/24 01:15 Respiratory Rate 16 11/06/24 01:15 Blood Pressure 90/64 11/06/24 01:15 Pulse Oximetry 95 11/06/24 01:15 Oxygen Delivery Method Room Air 11/06/24 01:15 Temperature 98 F 11/06/24 01:15 Pulse Rate 91 11/06/24 05:21 Respiratory Rate 16 11/06/24 05:01 Blood Pressure 121/75 11/06/24 05:31 Pulse Oximetry 97 11/06/24 05:21 Oxygen Delivery Method Room Air 11/06/24 01:15 Medications Administered Medications: Discontinued Medications Generic Name Dose Route Start Last Admin Trade Name Freq PRN Reason Stop Dose Admin Sodium Chloride 1,000 mls @ 1,000 mls/hr 11/06/24 03:00 11/06/24 05:20 0.9 % Sodium Chloride 1000 Ml IV 11/06/24 03:59 Infused .Q1H MATEUS Infusion Ketorolac Tromethamine 15 mg 11/06/24 02:56 11/06/24 03:46 Ketorolac 15 Mg/Ml Inj IVP 11/06/24 02:57 15 mg ONCE ONE Administration MDM - Fall MDM Narrative Medical decision making narrative: Ramona is a 63-year-old female with a past medical history of small-bowel obstruction, chronic pain disorder who presents the emergency department for evaluation of a fall. Upon arrival patient is nontoxic appearing, afebrile, in distress secondary to pain. Patient is slightly hypotensive upon arrival with blood pressure 90/64, tachycardic heart rate 107, oxygen 95% on room air. Upon arrival patient was placed into a C-collar. CT head and CT cervical spine were done from triage. I personally reviewed interpreted CT of the head and CT cervical spine which demonstrates no acute intracranial abnormality, no acute intracranial hemorrhage, fracture, C-spine with no fracture or subluxation. Patient was treated with IV Toradol, oxycodone for pain, comprehensive labs per for performed and additional imaging with x-ray of the left shoulder as well as CT scan of the chest/abdomen/pelvis. I reviewed EKG which demonstrates normal sinus rhythm with a ventricular rate at 92 beats per minute with normal axis, QTC 457, no acute ischemic change. Comprehensive labs unremarkable with white blood cell count 10.37, hemoglobin 10.9 (prior 9.6), INR 0.82, no acute metabolic electrolyte abnormality, negative point of care troponin, negative alcohol. I personally reviewed interpreted CT imaging of the chest/abdomen/pelvis which demonstrates no acute intra-thoracic or abdominal traumatic injuries, no evidence of pneumothorax, rib fractures, pulmonary contusion. Recent GI surgery with some edema the transverse colon due to colitis. Unlikely acute posttraumatic. On re-evaluation patient resting comfortably, no distress posterior wounds were irrigated, closed with Dermabond and suture. Patient tolerated procedure well. Patient ambulating stable gait. Overall ED workup reassuring. Patient with no specific complaints of feels comfortable discharge home. Plan for discharge home with close outpatient follow-up. Return precautions discussed. Patient understands and agrees the. Medical Records Attestation: I reviewed the patient's medical records. Lab Data Attestation: I reviewed the patient's lab results. Labs: Lab Results 11/06/24 11/06/24 Range/Units 02:57 03:44 WBC 10.37 (4.50-11.00) K/uL RBC 4.02 (4.00-5.20) m/uL Hgb 10.9 L (12.0-16.0) gm/dL Hct 34.7 (33.0-51.0) % MCV 86 (80-100) fL MCH 27 (26-34) pg MCHC 31 L (32-36) gm/dL RDW Coeff of Monserrat 14.7 (11.5-15.5) % Plt Count 438 (140-440) K/uL Neut % (Auto) 83.5 H (42.0-72.0) % Lymph % (Auto) 10.8 L (20-44) % Meagher % (Auto) 3.4 (0.0-11.0) % Eos % (Auto) 1.3 (0.0-7.0) % Baso % (Auto) 0.4 (0.0-3.0) % Neut # (Auto) 8.70 H (1.7-7.0) K/uL Lymph # (Auto) 1.10 (0.90-2.90) K/uL Meagher # (Auto) 0.40 (0.00-0.90) K/UL Eos # (Auto) 0.13 (0.00-0.50) K/uL Baso # (Auto) 0.04 (0.00-0.30) K/uL Abs Immat Gran (auto) 0.06 (0.00-0.30) K/uL Imm/Tot Granulo (auto) 0.6 % INR 0.82 L (0.91-1.10) Sodium 137 (135-149) mmol/L Potassium 3.6 (3.6-5.1) mmol/L Chloride 104 (96-114) mmol/L Carbon Dioxide 22 (20-32) mmol/L Anion Gap 11 (7-15) mEq/L BUN 12 (7-30) mg/dL Creatinine 0.7 (0.5-1.5) mg/dL Estimated GFR 98 ml/min Glucose 91 (60-115) mg/dL Calcium 8.9 (8.4-10.6) mg/dL Total Bilirubin 0.2 (0.1-1.5) mg/dL AST 21 (12-35) U/L ALT 10 (4-35) U/L Alkaline Phosphatase 118 (40-150) U/L Total Protein 6.4 (6.0-8.3) g/dL Albumin 3.6 (3.3-5.0) g/dL Ethyl Alcohol < 0.01 (0.01-0.03) % POC Troponin I 0.01 (0.01-0.04) ng/ml Discharge Plan Discharge Clinical Impression: CHI (closed head injury), Blunt trauma of face, Finger laceration Patient Disposition: Home, Self-Care Condition: Stable Additional Instructions: Please follow-up with your primary care provider in the next 3-5 days for further evaluation and follow-up. Please call to schedule an appointment. Please keep wounds clean and dry. Your sutures will need to, the next 8-10 days. Please arrange follow-up with your primary care provider. Please alternate taking Tylenol 1000 mg and ibuprofen 600 mg every 6 hours as needed for pain. Please return to the emergency department if you develop any worsening symptoms. Prescriptions: No Action duloxetine [Cymbalta] 60 mg capsule,delayed release(DR/EC) 120 mg PO DAILY lamotrigine 200 mg tablet 200 mg PO BID tizanidine 4 mg tablet 2 - 4 mg PO Q6H PRN bupropion HCl 300 mg tablet extended release 24 hr 300 mg PO DAILY buprenorphine-naloxone 8-2 mg film 0.5 film sublingual QID trazodone 100 mg tablet 100 mg PO HS prazosin 1 mg capsule 1 mg PO HS sennosides-docusate sodium [Senna with Docusate Sodium] 8.6-50 mg tablet 1 - 4 tab-cap PO BID simvastatin 20 mg tablet 20 mg PO HS metformin 1,000 mg tablet 1,000 mg PO BIDWM oxycodone 5 mg Tablet 5 - 10 mg PO Q6H PRNQty: 25 0RF (DME) blood-glucose meter Misc See Rx Instructions .Route Qty: 1 0RF Rx Instructions: As directed (DME) Accu-Chek Kaylee Plus test strp Strip See Rx Instructions .Route Qty: 100 3RF Rx Instructions: tid omeprazole 40 mg capsule,delayed release(DR/EC) 40 mg PO DAILY Qty: 90 3RF (DME) lancets [Accu-Chek Softclix Lancets] Misc See Rx Instructions .Route Qty: 300 0RF Rx Instructions: tid pramipexole 0.5 mg tablet 0.5 mg PO DAILY Qty: 90 1RF Follow Up/Referrals: Dev Gibson DO [Staff Physician, Emergency Medicine] Stand Alone Forms: [facility] Info Instructions Procedures Laceration Laceration 1: Written consent by: patient Name of person performing procedure: geri rudd Site: hand Side (If applicable): left Description: linear Depth: simple, single layer Local Anesthetic: other anesthetic (topical let) Pre-repair: wound explored and irrigated extensively Skin layer closed with: nylon Size (cm): 5-0 Number of sutures: 5 Technique: simple, interrupted Conclusion: patient tolerated procedure
--- NOTE | 2024-11-06 02:56 | CRLHL7_ITS ---
For Patients: As a result of the Cures Act, medical imaging exams and procedure reports are released immediately into your electronic medical record. You may view this report before your referring provider. If you have questions, please contact your health care provider. Indication: Injury Technique: A total of three views of the left shoulder were acquired. Comparison: None Findings: Bones: Alignment is normal. No fractures or bone lesions. Incidental postsurgical changes of the visualized cervical spine. Joint spaces: No dislocation Soft tissues: Unremarkable. Impression: No acute fracture, dislocation or destructive process. Dictated by Sanjay Magdaleno MD @ 11/06/2024 4:14:45 AM (Electronically Signed)
--- NOTE | 2024-11-06 02:56 | CRLHL7_ITS ---
For Patients: As a result of the Century Cures Act, medical imaging exams and procedure reports are released immediately into your electronic medical record. You may view this report before your referring provider. If you have questions, please contact your health care provider. INDICATION: Injury COMPARISON: A abdomen and pelvis CT dated October 25, 2024 TECHNIQUE: CT examination of the chest, abdomen and pelvis was performed following the uneventful intravenous administration of 63 cc of Isovue 370. Thin section axial images were obtained from the thoracic inlet through the pubic symphysis. Oral contrast was not administered. Sagittal and coronal reformatted imaging was performed Please note that all CT scans at this facility use dose modulation, iterative reconstruction, and/or weight-based dosing when appropriate to reduce radiation dose to as low as reasonably achievable. FINDINGS: CHEST: Heart size normal. No mediastinal or hilar adenopathy or mass. No pericardial effusion. No mediastinal vascular injury. Vascular calcifications noted. Linear areas of atelectasis. No focal consolidation, infiltrate or mass. No pleural effusion or pneumothorax. No posttraumatic findings. ABDOMEN AND PELVIS: LIVER/BILIARY SYSTEM:Hepatic steatosis. Cholecystectomy. Intra and extrahepatic biliary ductal dilation. This was present previously and may be due to reservoir phenomena from prior cholecystectomy. Correlate with LFTs. No visible distal choledocholithiasis or periampullary mass. ADRENALS: Normal KIDNEYS, URETERS and BLADDER:The kidneys appear normal. No visible mass, calculus or hydronephrosis. The ureters and bladder as visualized appear normal. SPLEEN:Normal appearance. PANCREAS: Appears normal. RETROPERITONEUM and MESENTERY: There is no mass, adenopathy or aortic aneurysm. GASTROINTESTINAL SYSTEM: Diffuse fluid distention of stomach. No evidence of small bowel or large bowel obstruction. Diffuse colonic fecal retention. Interval postoperative changes of small bowel presumably for small-bowel obstruction noted October 25, 2024. No current small-bowel obstruction. There is wall thickening of the transverse colon best seen on series 7, image 77 and wall thickening of portions of the descending colon. This is probably due to colitis. This is unlikely to be acutely posttraumatic. PELVIS: No mass, adenopathy or free fluid. OSSEOUS STRUCTURES and ABDOMINAL WALL: Extensive postoperative changes of the spine. There is no visible acute fracture involving the thoracic spine, lumbar spine, pelvis, ribcage, sternum or shoulder girdles as visualized. Postoperative changes of the abdominal wall. OTHER: No free fluid or free air. IMPRESSION: 1. CHEST: No visible acute posttraumatic findings 2. ABDOMEN AND PELVIS: No visible acute posttraumatic findings. Evidence of recent GI surgery. There is edema of the transverse colon and portions of the descending colon which may be due to colitis. This is unlikely to be acutely posttraumatic. Other nontraumatic appearing findings in the abdomen and pelvis as above. 3. OSSEOUS STRUCTURES: No acute osseous injury. Please note that all CT scans at this facility use dose modulation, iterative reconstruction, and/or weight-based dosing when appropriate to reduce radiation dose to as low as reasonably achievable. Dictated by Sanjay Magdaleno MD @ 11/06/2024 4:25:13 AM (Electronically Signed)
--- OUTSIDE RECORDS SUMMARY | 2024-11-06 03:35 | XMS_ITS | Clinical Summary ---
Author Organization [facility] Address [address] , [address] [place] [address] Phone Care Team Providers Care [place] Worker Name Role Phone Allegra Wong Conditions or Problems Problem Name Problem Code Onset Date Status Entry Date Provider Comment Standard Description Annotate Loss of consciousness 149608340 (SNOMED CT) 06/19 Active 06/19 Sai Steinberg MD Loss of consciousness Spells 40618702 (SNOMED CT) 06/19 Active 06/19 Sai Steinberg MD Stupor CARPAL TUNNEL SYNDROME 41117653 (SNOMED CT) 09/05 Active 09/05 Randal Figueroa MD Carpal tunnel syndrome LUMBAR RADICULOPATHY 070205204 (SNOMED CT) 08/08 Active 08/08 Randal Figueroa MD Lumbar radiculopathy NUMBNESS/TINGLI NG 782.0 (ICD-9-CM) 08/08 Active 08/08 Randal Figueroa MD Disturbance of skin sensation NUMBNESS/TINGLI NG 782.0 (ICD-9-CM) 03/11 Active 03/11 Makayla Chine DO Disturbance of skin sensation NECK PAIN 38652046 (SNOMED CT) 03/11 Active 03/11 Makayla E Aracely DO Neck pain COMMON MIGRAINE, NOT INTRACTABLE G43.009 (ICD-10-CM ) 03/11 Active 03/11 Makayla E Aracely DO Migraine without aura, not intractable, without status migrainosus Medications Medication Instructions Start Date Stop Date Generic Name [facility] Provider ZOFRAN 4 MG ORAL TABLET 1 every six hours as needed ZOFRAN 4 MG ORAL TABLET Sai Ni VICODIN 5-500 MG TABS 1-2 by mouth every four to six hours as needed VICODIN 5-500 MG TABS Sai Ni NALOXONE HCL 4 MG/0.1ML LIQD naloxone 88072326935 Sai Ni OXYCONTIN 20 MG T12A oxycodone 52592277594 Sai Ni LINZESS 145 MCG CAPS linaclotide 01836457906 Sai Ni ESCITALOPRAM OXALATE 20 MG TABS escitalopram oxalate 87484772813 Sai Ni OXYCODONE HCL 10 MG TABS oxycodone 94681914199 Sai Ni BUPROPION HCL ER (XL) 300 MG [id number] bupropion hcl 89775908864 Sai Ni SIMVASTATIN 20 MG TABS simvastatin 58427925443 Sai Ni TRAZODONE HCL 100 MG TABS trazodone 13908340807 Sai Ni OXYCODONE HCL 15 MG TABS oxycodone 27537123630 Sai Ni OXYCODONE HCL 5 MG TABS oxycodone 60223000779 Sai Ni PRAZOSIN HCL 1 MG CAPS prazosin 80632721454 Sai Ni TOPIRAMATE 100 MG TABS topiramate 92194206439 Sai Ni LAMOTRIGINE 200 MG TABS lamotrigine 30563528306 Sai Ni OMEPRAZOLE 40 MG CPDR omeprazole 91781255080 Sai Ni PRAMIPEXOLE DIHYDROCHLORIDE 0.5 MG TABS pramipexole 82530895994 Sai Ni ZOFRAN 4 MG ORAL TABLET 1 q 6 hrs prn ONDANSETRON HCL 66940143204 Makayla Chine DO VICODIN 5-500 MG TABS 1 -2 po q 4-6 hrs prn HYDROCODONE-KEVIN TAMINOPHEN 76518412985 Makayla Chine DO Medications Administered No information [...] COMPAZINE Anaphylaxis Mild Active Phi Carmine hayden [id number] INE Mild Active Phi Reginaldoecki BACLOFEN Mild Active Phi Reginaldoe cki Results Date Name Value Unit Range Flag Description Internal Other: Authorizatio n - OBS PTSTAUTHDT DONE N PT Startin g Authorization Date Office Visit: Office Visit s yncope and collapse scans- no records - [place] SMOK STATUS current every day smoker Tobacco [...] Date Entry Date [place]DERS [place] [address] [place] [address] EEG (40min) [id number] MRI-Brain W/WO CPT-73155 MRI Brain W/WO CPT-C5307W ProHance Gadolinium- based MR Contrast - 15 ml vial ORDERS Ammonia ORDERS Patient Instructions [facility]-[id number] Documentation of current medicatio ns ORDERS Comp Metabolic Panel (14) 20 03/07/09 ORDERS Magnesium Serum ORDERS Phosphorus CPT-56049 Motor NCS x 3 CPT-95380 Sensory NCS x 4 CPT-19129 Motor NCS x 3 CPT-21075 Sensory NCS x 3 CPT-43505 EMG with NCS (5+ muscles) - 1 limb 08/08 Vital Signs Date Name Value Unit Description Weight Measured 165 [lb_av] weight E& M Weight Measured 165 [lb_av] weight E& M Immunizations No information available. Advance Directives No information available.
[2024-11-06 03:52] LABS: Hematocrit* 34.7 % (33.0-51.0); Hemoglobin* 10.9 gm/dL (12.0-16.0); Immature Granulocytes Abs Auto 0.06 K/uL (0.00-0.30); Immature Granulocytes Pct Auto 0.6 %; Mean Corpuscular HGB Conc 31 gm/dL (32-36); Mean Corpuscular Hemoglobin 27 pg (26-34); Mean Corpuscular Volume 86 fL (80-100); RDW Coefficient of Variation % 14.7 % (11.5-15.5); Red Blood Count* 4.02 m/uL (4.00-5.20); White Blood Count* 10.37 K/uL (4.50-11.00)
[2024-11-06 03:53] LABS: Lymphocytes Absolute Auto 1.10 K/uL (0.90-2.90); Slide Review Reflex No
[2024-11-06 04:05] LABS: Troponin, Point-of-Care* 0.01 ng/ml (0.01-0.04)
[2024-11-06 04:08] LABS: Albumin* 3.6 g/dL (3.3-5.0); Chloride* 104 mmol/L (96-114); Potassium* 3.6 mmol/L (3.6-5.1); Sodium* 137 mmol/L (135-149)
[2024-11-06 04:10] LABS: INR 0.82 (0.91-1.10); Prothrombin Time 12.1 Seconds
[2024-11-06 04:11] LABS: Alanine Aminotransferase* 10 U/L (4-35); Alkaline Phosphatase* 118 U/L (40-150); Anion Gap 11 mEq/L (7-15); Aspartate Amino Transferase* 21 U/L (12-35); Bilirubin Total* 0.2 mg/dL (0.1-1.5); Blood Urea Nitrogen* 12 mg/dL (7-30); Carbon Dioxide* 22 mmol/L (20-32); Creatinine* 0.7 mg/dL (0.5-1.5); Estimated Glomerular Filt Rate 98 ml/min; Total Protein* 6.4 g/dL (6.0-8.3)
[2024-11-06 04:12] LABS: Calcium* 8.9 mg/dL (8.4-10.6); Ethanol* < 0.01 % (0.01-0.03); Glucose* 91 mg/dL (60-115)
== END 2024-11-06 06:26 | disposition home or self-care (01) ==
PROVIDERS: Emergency Provider Emergency Medicine; PCP Family Medicine
DX: S09.93XA Unspecified injury of face, initial encounter (principal); S61.211A Laceration without foreign body of left index finger without damage to nail, initial encounter; W10.9XXA Fall (on) (from) unspecified stairs and steps, initial encounter
CPT/HCPCS: 12002; 36415; 70450; 71260; 72125; 73030; 74177; 80053; 82077; 84484; 85025; 85610; 93005; 96374; 99285; J1885; J7030; Q9967

== ENCOUNTER 2024-11-16 09:17 | Outpatient (CLI) | payer MEDICARE, OTHER, SELFPAY | END 2024-11-16 09:18 | disposition home or self-care (01) | LOC: NFLDREF 09:25 | PROVIDERS: PCP Family Medicine; Visit Provider Surgery | DX: R11.0 Nausea (principal); R19.7 Diarrhea, unspecified | CPT/HCPCS: 80048 ==

== ENCOUNTER 2024-12-06 11:47 | Outpatient (CLI) | payer MEDICARE, OTHER, SELFPAY ==
--- NOTE | 2024-12-06 13:10 | P.ANES_ITS ---
Anesthesia Charges Start Date/Time Anesthesia Start Date: 12/06/24 Anesthesia Start Time: 12:49 Stop Date/Time Anesthesia Stop Date: 12/06/24 Anesthesia Stop Time: 13:05 Coding CPT Codes CPT Codes: ANES UPR GI NDSC PX NOS - 01193 ([id number]) P3 - PATIENT W/SEVERE SYS DISEASE, QK - WOOD PREPARATION SUPERVISOR 2-4 CNCRNT ANES PROC, QX - PAPER PRODUCTS PRINTER SVC W/ MD MED DIRECTION
--- NOTE | 2024-12-06 13:10 | W.ANESCHARGE ---
Anesthesia Charges Start Date/Time Anesthesia Start Date: 12/06/24 Anesthesia Start Time: 12:49 Stop Date/Time Anesthesia Stop Date: 12/06/24 Anesthesia Stop Time: 13:05 Coding CPT Codes CPT Codes: ANES UPR GI NDSC PX NOS - 43351 ([id number]) P3 - PATIENT W/SEVERE SYS DISEASE, QK - DYE HOUSE HAND 2-4 CNCRNT ANES PROC, QX - MEDICAL ASSISTANT DERMATOLOGY SVC W/ MD MED DIRECTION
--- NOTE | 2024-12-06 14:10 | P.ANES_ITS ---
Anesthesia Charges Start Date/Time Anesthesia Start Date: 12/06/24 Anesthesia Start Time: 12:49 Stop Date/Time Anesthesia Stop Date: 12/06/24 Anesthesia Stop Time: 13:05 Coding CPT Codes CPT Codes: ANES UPR GI NDSC PX NOS - 26002 ([id number]) QK - INDUSTRIAL RENDERER 2-4 CNCRNT ANES PROC, QX - REGIONAL REHABILITATION DIRECTOR SVC W/ MD MED DIRECTION, P3 - PATIENT W/SEVERE SYS DISEASE
--- NOTE | 2024-12-06 14:10 | W.ANESCHARGE ---
Anesthesia Charges Start Date/Time Anesthesia Start Date: 12/06/24 Anesthesia Start Time: 12:49 Stop Date/Time Anesthesia Stop Date: 12/06/24 Anesthesia Stop Time: 13:05 Coding CPT Codes CPT Codes: ANES UPR GI NDSC PX NOS - 00589 ([id number]) QK - MOTOR BUILDER WINDER 2-4 CNCRNT ANES PROC, QX - TIER OVER SVC W/ MD MED DIRECTION, P3 - PATIENT W/SEVERE SYS DISEASE
== END 2024-12-06 11:48 | disposition home or self-care (01) ==
LOC: OP CLINIC 11:48
PROVIDERS: PCP Family Medicine; Visit Provider Surgery
DX: D50.9 Iron deficiency anemia, unspecified (principal); R11.0 Nausea; K21.9 Gastro-esophageal reflux disease without esophagitis; K58.1 Irritable bowel syndrome with constipation; K44.9 Diaphragmatic hernia without obstruction or gangrene
CPT/HCPCS: 00731; 43239; 88305; J2704; J3490